=== PATIENT | female | born 1940 | race Caucasian/White ===

== ENCOUNTER → 2017-07-31 | Day surgery (SDC) | payer OTHER ==
[2017-07-30 11:38] VITALS: Ht 162.6 cm; Wt 91.4 kg
[~2017-07-31] VITALS: Ht 162.6 cm; Wt 91.4 kg
[~2017-07-31] MED LIST: AMLO-114 PO; APR25 PO; ATOR-24 PO; BENZ100C84 PO; CLOP1TAB15 PO; FURO-85 PO; LIDOCAINE HCL 2% 2 ML VIAL (20MG/ML) ONE; LOSA1TAB38 PO; MOME200A INH; MONT1TAB3 PO; OMEG10007 PO; PRMVC PV; PROPOFOL IV EMULSION 10 MG/ML 20 ML VIAL IV ONE; PRT/20 PO; PRVIN525X INH; SERT25TA PO; SODIUM CHLORIDE 0.9% 500ML 500 ML IV ONE; SPRIN/30 INH; TRAZ50TA35 PO; VNTHFA/IN INH; ZNTT/150 PO
--- NOTE | 2017-07-31 10:08 | Endo History and Physical ---
History & Physical Date of Service: Jul 31, 2017. Chief Complaint: Referring Physician: History of Present Illness Patient with ANGIE and Hx of colonic AVMs. Planned for EGD and colonoscopy. Feels fine and denies abdominal pain. Past Surgical History Hx Cardiac Surgery: Yes (RT CAROTID ENDARTERECTOMY) Hx Internal Defibrillator: No Hx Pacemaker: No Hx Abdominal Surgery: Yes (NEYMAR BSO, EXPLOR LAPS) Hx of Implantable Prosthesis: No Hx Post-Op Nausea and Vomiting: No Hx Cancer Surgery: No Hx Thoracic Surgery: No Hx Orthopedic: Yes (RT ALEXA) Hx Urinary Tract Surgery: No Family History None Social History Smoking Status: Former Smoker Hx Substance Use: No Hx Alcohol Use: No Allergies Coded Allergies: Adhesives (Verified Allergy, Mild, HIVES, 07/31/17) HIVES AND WELTS NO KNOWN DRUG ALLERGIES (Verified Allergy, Unknown, ., 07/31/17) Current Medications Reported Home Medications Medications Dose Route/Sig Max Daily Dose Days Date Category [place]-3 (Fish Oil) 1 Ea Cap 1 Cap PO BID 07/30/17 Reported Lasix (Furosemide) 20 Mg Tab 20 Mg PO DAILY PRN 07/30/17 Reported Zantac (Ranitidine HCl) 150 Mg Tab 150 Mg PO HS 07/30/17 Reported Albuterol Sulfate (Albuterol Sulf) 2.5 Mg/0.5 Ml Nebu 1 Dose INH Q4H PRN 07/30/17 Reported Ventolin Hfa (Albuterol) 200 Puffs/48555 Mcg Aers 2-4 Puffs INH Q6H PRN 07/30/17 Reported Norvasc (Amlodipine Besylate) 10 Mg Tab 10 Mg PO DAILY 07/30/17 Reported Apresoline (Hydralazine Hcl) 25 Mg Tab 25 Mg PO BID 07/30/17 Reported Spiriva Handihaler (Tiotropium [place]) 30 Puff/540 Mcg Aerp 1 Cap INH DAILY 07/30/17 Reported Plavix (Clopidogrel Bisulfate) 75 Mg Tab 75 Mg PO DAILY 07/30/17 Reported Singulair (Montelukast Sodium) 10 Mg Tab 10 Mg PO DAILY 07/30/17 Reported Dulera 200/5 Mcg (Mometasone Furoate-Formoterol) 1 Aer Aer 2 Puffs INH BID 30 07/30/17 Reported Lipitor (Atorvastatin Calcium) 40 Mg Tab 40 Mg PO DAILY 07/30/17 Reported Tessalon Perles (Benzonatate) 100 Mg Cap 100 Mg PO TID PRN 07/30/17 Reported Protonix (Pantoprazole Sodium) 20 Mg Tab 20 Mg PO DAILY 07/30/17 Reported Trazodone (Trazodone HCl) 50 Mg Tab 50 Mg PO HS 07/30/17 Reported Zoloft (Sertraline HCl) 25 Mg Tab 25 Mg PO DAILY 07/30/17 Reported Premarin (Estrogens, Conjugated) 14 Appln/30 Gm Cr 1 Dose PV DIRECTED 07/30/17 Reported Cozaar (Losartan Potassium) 100 Mg Tab 100 Mg PO DAILY 07/30/17 Reported Vital Signs Weight (Kilograms): 91.36 Height (Feet): 5 Height (Inches): 4 Physical Exam General Appearance: no apparent distress Respiratory/Chest: Auscultation: breath sounds normal Cardiovascular: Heart Auscultation: RRR Abdomen: Inspection & Palpation: soft, non-distended Assessment and Plan EGD and colonoscopy. Patient was explained in details the risk and benefit and agrees.
--- NOTE | 2017-07-31 11:20 | GI REPORT ---
Procedure Date: 07/31/2017 10:20 AM Procedure: Upper GI endoscopy Indications: Iron deficiency anemia Medicines: Monitored Anesthesia Care Complications: No immediate complications. Estimated Blood Loss: Estimated blood loss: none. Procedure: Pre-Anesthesia Assessment: - Prior to the procedure, a History and Physical was performed, and patient medications and allergies were reviewed. The patient is competent. The risks and benefits of the procedure and the sedation options and risks were discussed with the patient. All questions were answered and informed consent was obtained. Patient identification and proposed procedure were verified by the physician and the nurse in the procedure room. Mental Status Examination: alert and oriented. Airway Examination: normal oropharyngeal airway and neck mobility. Respiratory Examination: clear to auscultation. CV Examination: normal. ASA Grade Assessment: III - A patient with severe systemic disease. After reviewing the risks and benefits, the patient was deemed in satisfactory condition to undergo the procedure. The anesthesia plan was to use monitored anesthesia care (MAC). Immediately prior to administration of medications, the patient was re-assessed for adequacy to receive sedatives. The heart rate, respiratory rate, oxygen saturations, blood pressure, adequacy of pulmonary ventilation, and response to care were monitored throughout the procedure. The physical status of the patient was re-assessed after the procedure. After obtaining informed consent, the endoscope was passed under direct vision. Throughout the procedure, the patient's blood pressure, pulse, and oxygen saturations were monitored continuously. The On-site loaner was introduced through the mouth, and advanced to the second part of duodenum. The upper GI endoscopy was accomplished without difficulty. The patient tolerated the procedure well. Findings: The examined esophagus was normal. A small hiatus hernia was present. The entire examined stomach was normal. Biopsies were taken with a cold forceps for histology. Biopsies were taken with a cold forceps for Helicobacter pylori testing. Verification of patient identification for the specimen was done by the physician and nurse using the patient's name and date. The duodenal bulb and 2nd part of the duodenum were normal. Biopsies were taken with a cold forceps for histology. Impression: - Normal esophagus. - Small hiatus hernia. - Normal stomach. Biopsied. - Normal duodenal bulb and 2nd part of the duodenum. Biopsied. Recommendation: - Discharge patient to home. - Await pathology results. Trinidad Ruiz MD 07/31/2017 11:19:44 AM This report has been signed electronically. Note Initiated On: 07/31/2017 10:20 AM I attest to the content of the Intraoperative Record and orders documented therein, exceptions below
--- NOTE | 2017-07-31 11:26 | GI REPORT ---
Procedure Date: 07/31/2017 10:41 AM Procedure: Colonoscopy Indications: Iron deficiency anemia Medicines: Monitored Anesthesia Care Complications: No immediate complications. Estimated Blood Loss: Estimated blood loss: none. Procedure: Pre-Anesthesia Assessment: - Prior to the procedure, a History and Physical was performed, and patient medications and allergies were reviewed. The patient is competent. The risks and benefits of the procedure and the sedation options and risks were discussed with the patient. All questions were answered and informed consent was obtained. Patient identification and proposed procedure were verified by the physician and the nurse in the procedure room. Mental Status Examination: alert and oriented. Airway Examination: normal oropharyngeal airway and neck mobility. Respiratory Examination: clear to auscultation. CV Examination: normal. ASA Grade Assessment: III - A patient with severe systemic disease. After reviewing the risks and benefits, the patient was deemed in satisfactory condition to undergo the procedure. The anesthesia plan was to use monitored anesthesia care (MAC). Immediately prior to administration of medications, the patient was re-assessed for adequacy to receive sedatives. The heart rate, respiratory rate, oxygen saturations, blood pressure, adequacy of pulmonary ventilation, and response to care were monitored throughout the procedure. The physical status of the patient was re-assessed after the procedure. After I obtained informed consent, the scope was passed under direct vision. Throughout the procedure, the patient's blood pressure, pulse, and oxygen saturations were monitored continuously. The scope was introduced through the anus and advanced to the terminal ileum. The colonoscopy was performed without difficulty. The patient tolerated the procedure well. The quality of the bowel preparation was good. The ileocecal valve, appendiceal orifice, and rectum were photographed. Findings: The perianal and digital rectal examinations were normal. The terminal ileum appeared normal. Two small angioectasias without bleeding were found in the ascending colon. Vaporization for bleeding prevention using argon plasma at 2 liters/minute and 20 alcaraz was successful. To prevent bleeding post-intervention, one hemostatic clip was successfully placed. There was no bleeding at the end of the procedure. A few small-mouthed diverticula were found in the sigmoid colon. The retroflexed view of the distal rectum and anal verge was normal and showed no anal or rectal abnormalities. Impression: - The examined portion of the ileum was normal. - Two small non-bleeding colonic angioectasias. Treated with argon plasma coagulation (APC). Clip was placed. - Diverticulosis in the sigmoid colon. - The distal rectum and anal verge are normal on retroflexion view. - No specimens collected. Recommendation: - Discharge patient to home. - No significant pathology to explain her anemia, consider investigation for other etiologies if needed. - Repeat colonoscopy is not recommended for screening purposes based on her age. - Return to referring physician. Trinidad Ruiz MD 07/31/2017 11:26:41 AM This report has been signed electronically. Note Initiated On: 07/31/2017 10:41 AM I attest to the content of the Intraoperative Record and orders documented therein, exceptions below
--- NOTE | 2017-07-31 11:37 | Discharge Instructions ---
Endoscopy Patient Instructions Date / Procedure(s) Performed Jul 31, 2017. Colonoscopy, EGD Allergy Information Coded Allergies: Adhesives (Verified Allergy, Mild, HIVES, 07/31/17) HIVES AND WELTS NO KNOWN DRUG ALLERGIES (Verified Allergy, Unknown, ., 07/31/17) Discharge Date / Findings Jul 31, 2017. Small Hiatal hernia Normal Stomach and Duodenum. Two small AVMs in ascending colon, treated with APC and Clip Diverticulosis Medication Instructions Stopped Medication(s): PLAVIX 07/30/17 0900 Reported Home Medications Medications Dose Route/Sig Max Daily Dose Days Date Category [place]-3 (Fish Oil) 1 Ea Cap 1 Cap PO BID 07/30/17 Reported Lasix (Furosemide) 20 Mg Tab 20 Mg PO DAILY PRN 07/30/17 Reported Zantac (Ranitidine HCl) 150 Mg Tab 150 Mg PO HS 07/30/17 Reported Albuterol Sulfate (Albuterol Sulf) 2.5 Mg/0.5 Ml Nebu 1 Dose INH Q4H PRN 07/30/17 Reported Ventolin Hfa (Albuterol) 200 Puffs/73048 Mcg Aers 2-4 Puffs INH Q6H PRN 07/30/17 Reported Norvasc (Amlodipine Besylate) 10 Mg Tab 10 Mg PO DAILY 07/30/17 Reported Apresoline (Hydralazine Hcl) 25 Mg Tab 25 Mg PO BID 07/30/17 Reported Spiriva Handihaler (Tiotropium [place]) 30 Puff/540 Mcg Aerp 1 Cap INH DAILY 07/30/17 Reported Plavix (Clopidogrel Bisulfate) 75 Mg Tab 75 Mg PO DAILY 07/30/17 Reported Singulair (Montelukast Sodium) 10 Mg Tab 10 Mg PO DAILY 07/30/17 Reported Dulera 200/5 Mcg (Mometasone Furoate-Formoterol) 1 Aer Aer 2 Puffs INH BID 30 07/30/17 Reported Lipitor (Atorvastatin Calcium) 40 Mg Tab 40 Mg PO DAILY 07/30/17 Reported Tessalon Perles (Benzonatate) 100 Mg Cap 100 Mg PO TID PRN 07/30/17 Reported Protonix (Pantoprazole Sodium) 20 Mg Tab 20 Mg PO DAILY 07/30/17 Reported Trazodone (Trazodone HCl) 50 Mg Tab 50 Mg PO HS 07/30/17 Reported Zoloft (Sertraline HCl) 25 Mg Tab 25 Mg PO DAILY 07/30/17 Reported Premarin (Estrogens, Conjugated) 14 Appln/30 Gm Cr 1 Dose PV DIRECTED 07/30/17 Reported Cozaar (Losartan Potassium) 100 Mg Tab 100 Mg PO DAILY 07/30/17 Reported Provider Instructions Activity Restrictions - No exercising or heavy lifting for 24 hours. - Do not drink alcohol the day of the procedure. - Do not drive a car or operate machinery until the day after the procedure. - Do not make any important decisions or sign important papers in 24 hours after the procedure. Following Day: - Return to full activity which may include returning to work/school. Diet Start your diet with liquids and light foods (jello, soup, juice, toast). Then eat your usual diet if not nauseated. Treatment For Common After Affects For mild abdominal pain, bloating, or excessive gas: - Rest - Eat lightly - Lie on right side Follow-Up Information Await pathology result. Work up for non GI causes of anemia. Follow-up with DR. JOSE MOTT as scheduled Anesthesia Information What You Should Know You have had a procedure that required some medicine to reduce anxiety and discomfort. This treatment is called moderate sedation. After receiving the treatment, you may be sleepy, but you will be able to breathe on your own. The effects of the treatment may last for several hours. Follow these instructions along with Activity/Diet recommendations noted above: * Do NOT do anything where dizziness or clumsiness would be dangerous. * Rest quietly at home today, then you can be up and about tomorrow. * Have a responsible person stay with you the rest of today. * You may have had an I.V. today. If so, you may take the dressing off later today. Recommendations Call your doctor if: * Trouble breathing * Continuous vomiting for more than 24 hours * Temperature above 101 degrees * Severe abdominal pain or bloating * Pain not relieved by pain medicine ordered * There is increased drainage or redness from any incision * A large amount of rectal bleeding greater than 2-3 tablespoons. (If you had a polyp/s removed or have hemorrhoids, a small amount of blood - from the rectum is to be expected.) * You have any unanswered questions or concerns. IN THE EVENT OF A SERIOUS EMERGENCY, GO TO THE NEAREST EMERGENCY ROOM Your discharge instructions were prepared by provider Trinidad Ruiz. Patient Instructions Signature Page Keisha Vijay Patient (or Guardian) Signature/Date: I have read and understand the instructions given to me by my caregivers. Caregiver/RN/Doctor Signature/Date: The above-named patient and/or guardian has received patient instructions on this date. + Original Patient Signature Page (only) stays with chart. Please make copy for patient.
[2017-07-31 11:47] VITALS: BP 154/74; PULSE 64; O2SAT 93
--- NOTE | 2017-07-31 11:56 | Anesthesiology Progress Note ---
Anesthesia Post Op Note Date & Time Jul 31, 2017 at 11:56 Vital Signs Pain Intensity: 0 Vital Signs Past 12 Hours Date Time Temp Pulse Resp B/P (MAP) Pulse Ox O2 Delivery O2 Flow Rate FiO2 07/31/17 11:47 64 20 154/74 (100) 93 Room Air 07/31/17 11:32 63 20 131/61 (84) 94 Room Air 07/31/17 11:17 70 20 134/47 (76) 97 Diffusion Mask 07/31/17 10:18 36.6 66 20 160/68 (98) 94 Room Air Notes Mental Status: alert / awake / arousable, participated in evaluation Pt Amnestic to Procedure: Yes Nausea / Vomiting: adequately controlled Pain: adequately controlled Airway Patency, RR, SpO2: stable & adequate BP & HR: stable & adequate Hydration State: stable & adequate Anesthetic Complications: no major complications apparent
== END | disposition home or self-care (01) ==
LOC: C.GI 09:51
PROVIDERS: ATTEND Student in an Organized Health Care Education/Training Program
DX: D50.9 Iron deficiency anemia, unspecified (principal); K57.30 Diverticulosis of large intestine without perforation or abscess without bleeding; Z90.710 Acquired absence of both cervix and uterus; Z96.641 Presence of right artificial hip joint; Z87.891 Personal history of nicotine dependence; Z79.02 Long term (current) use of antithrombotics/antiplatelets; J44.9 Chronic obstructive pulmonary disease, unspecified; G47.33 Obstructive sleep apnea (adult) (pediatric); I10 Essential (primary) hypertension; E78.5 Hyperlipidemia, unspecified; I73.9 Peripheral vascular disease, unspecified; I38 Endocarditis, valve unspecified; K21.9 Gastro-esophageal reflux disease without esophagitis; Z86.73 Personal history of transient ischemic attack (TIA), and cerebral infarction without residual deficits; F41.9 Anxiety disorder, unspecified; E66.9 Obesity, unspecified; Z85.72 Personal history of non-Hodgkin lymphomas

== ENCOUNTER 2019-09-18 14:12 | Inpatient (IN) ==
--- OUTSIDE RECORDS SUMMARY | 2019-09-18 14:14 | External Medical Summary | Continuity of Care Document ---
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) Chronic obstructive pulmonary disease (C OPD) suggested by initial evaluation (496) (J44.9) Hypoxemia (799.02) (R09.02) ISELA on CPAP (327.23) (G47.33) Dyspnea on exertion (786.09) (R06.09) Carotid stenosis (433.10) (I65.29) Transient ischemic attack (TIA) (435.9) (G45.9) Hypertension (401.9) (I10) Dyslipidemia (272.4) (E78.5) Chronic diastolic heart failure (428.32) (I50.32) Aortic valve insufficiency (424.1) (I35.1) Former smoker (V15.82) (Z87.891) Depression (311) (F32.9) Edema (782.3) (R60.9) Itchy skin (698.9) (L29.9) Cough (786.2) (R05) 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 (30 day sup ply) Quantity: 60 Refills: 1 Ventolin HFA 108 (90 Base) MCG/ACT Inhal ation Aerosol Solution; INHALE 2 PUFFS EVERY 4 HOURS NEEDED 18 GM Inhaler Quantity: 1 Refills: 0 Albuterol Sulfate (2.5 MG/3ML) 0.083% In halation Nebulization Solution; USE 1 UNIT DOSE IN NEBULIZER EVERY 4 TO 6 HOURS NEEDED. Refills: 3 Tessalon Perles 100 MG Oral Capsule; TAKE 1 CAPSULE 3 TIMES DAILY NEEDED. Quantity: 30 Refills: 1 Norvasc 10 MG Oral Tablet; TAKE 1 TABLET DAILY. Refills: 0 traZODone HCl - 50 MG Oral Tablet; TAKE 1 TABLET AT BEDTIME. Quantity: 30 Refills: 6 Protonix 20 MG Oral Tablet Delayed Release; TAKE 1 TABLET TW ICE DAILY. Refills: 0 Lipitor 40 MG Oral Tablet; TAKE 1 TABLET DAILY. Quantity: 90 Refills: 3 hydrALAZINE HCl - 25 MG Oral Tablet; TAKE 1 TABLET TWICE ZAIN LY. Quantity: 60 Refills: 0 Zoloft 25 MG Oral Tablet; TAKE 1 TABLET DAILY DIRECTED. Refills: 0 Spiriva HandiHaler 18 MCG Inhalation Cap sudarshan; INHALE CONTENTS OF 1 CAPSULE ONCE DAILY. 30 Capsule Box Quantity: 1 Refills: 0 Singulair 10 MG Oral Tablet; TAKE 1 TABLET DAILY. Quantity: 30 Refills: 5 Plavix 75 MG Oral Tablet; TAKE 1 TABLET DAILY. Quantity: 30 Refills: 5 Losartan Potassium 100 MG Oral Tablet; TAKE ONE (1) TABLET B Y MOUTH ONCE DAILY 30 Tablet Bottle Refills: 0 Furosemide 20 MG Oral Tablet; 1 TAB COLE Y NEEDED FOR FLUID RETENTION OR WEIGHT GAIN. Refills: 0 Dulera 200-5 MCG/ACT Inhalation Aerosol; INHALE 2 PUFFS, BY MOUTH, TWICE DAILY. RINSE MOUTH AFTER USE. 8.8 GM Inhaler Refills: 0 Temovate OINT; APPLY TO AFFECTED AREA 3 TIMES PER WEEK 15 GM Tube Refills: 0 Premarin 0.625 MG/GM Vaginal Cream; 1 gr am intravaginally two times per week at bedtime 30 GM Tube Refills: 3 Oxygen; 2 LPM AT BEDTIME THROUGH THE CPAP MACHINE. Refills: 0 Fish Oil 1000 MG Oral Capsule Delayed Release; TAKE 1 CAP TW ICE DAILY. Refills: 0 Alendronate Sodium 70 MG Oral Tablet; TAKE 1 TABLET ONCE WEE KLY. Quantity: 12 Refills: 3 raNITIdine HCl - 150 MG Oral Tablet; TAKE 1 TABLET AT BEDTIM E. Quantity: 90 Refills: 3 Procedures History of hip replacement Status: Compl eted History of hemorrhoidectomy Status: Comp leted History of hysterectomy Status: Complete d Immunizations Immunizations not documented Family History Mother Family history of cerebrovascular accident (CVA) (V17.1) (Z8 2.3) Status: Active Social History - Smoking Status Former smoker Plan of Treatment Planned Observations Planned Goals not documented Results No Known Results Results not documented Encounters Appointment; Elise/Stress Echo/Stress 18-Nov-2018 11:45 Encounter Diagnosis: Problem not documented Appointment; Pasquale Marcial M.D. 13-Jun-2018 11:45 Encounter Diagnosis: Problem not documented Appointment; Elise/Stress Echo/Stress 01-Apr-2018 15:15 Encounter Diagnosis: Problem not documented Appointment; Echo/Stress Echo/Stress 25-Mar-2018 11:00 Encounter Diagnosis: Problem not documented Appointment; Joe Melton M.D. 20-Mar-2018 15:45 Encounter Diagnosis: Problem not documented Appointment; Pasquale Marcial M.D. 05-Mar-2018 15:15 Encounter Diagnosis: Problem not documented Appointment; Pasquale Marcial M.D. 24-Jan-2018 13:45 Encounter Diagnosis: Problem not documented Appointment; Pasquale Marcial M.D. 28-Dec-2017 11:15 Encounter Diagnosis: Problem not documented Appointment; Joe Melton M.D. 05-Nov-2017 13:45 Encounter Diagnosis: Problem not documented Appointment; Brenda Murrell PA-C 26-Dec-2018 13:30 Encounter Diagnosis: Problem not documented
--- OUTSIDE RECORDS SUMMARY | 2019-09-18 14:15 | External Medical Summary | Continuity of Care Document ---
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) Emphysema/COPD (492.8) (J43.9) Obstructive sleep apnea (327.23) (G47.33) Lymphadenopathy, mesenteric (785.6) (R59.0) Lichen sclerosus (701.0) (L90.0) GERD (gastroesophageal reflux disease) (530.81) (K21.9) Osteoporosis (733.00) (M81.0) Former tobacco use (V15.82) (Z87.891) Pleural effusion (511.9) (J90) Pneumonitis (486) (J18.9) Centrilobular emphysema (492.8) (J43.2) 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.]
[2019-09-18] MEDS ORDERED: CEFEPIME 2,000 MG/20 ML VIAL IV STA (14:36)
[2019-09-18] MEDS ORDERED: VANCOMYCIN HCL 2,250 MG in SODIUM CHLORIDE 0.9% 500 ML IV ONE (14:36)
[2019-09-18] MEDS ORDERED: VANCOMYCIN CONSULT ACTIVE PRN ×2 (14:36→17:23)
[2019-09-18] MEDS ORDERED: ONDANSETRON INJ 2 MG/ML 2 ML VIAL IV STA (14:54)
[2019-09-18] MEDS ORDERED: MoRPHine SULFATE 4 MG/ML 1 ML CARP\\VIAL IV STA (14:54)
[2019-09-18 15:31] LABS: Basophils # (auto) 0.01 K/uL (0-0.2); Basophils % (auto) 0.1 %; Eosinophils # (auto) 0.03 K/uL (0-0.5); Eosinophils % (auto) 0.2 %; Hematocrit (blood only) 34.5 % (37-47); Hemoglobin 11.2 g/dL (12.0-16.0); Immature Granulocytes # (auto) 0.04 K/uL (0.00-0.02); Immature Granulocytes % (auto) 0.3 %; Lymphocytes # (auto) 0.94 K/uL (1.2-3.4); Lymphocytes % (auto) 7.5 %; Mean Corpuscular Hemoglobin 27.9 pg (25-34); Mean Corpuscular Hgb Conc 32.5 g/dL (32-36); Mean Corpuscular Volume 85.8 fL (80-100); Mean Platelet Volume 9.1 fL (7.4-10.4); Monocytes # (auto) 1.12 K/uL (0.11-0.59); Monocytes % (auto) 8.9 %; Neutrophils # (auto) 10.38 K/uL (1.4-6.5); Platelet Count 266 K/uL (130-400); RDW Standard Deviation 44.4 fL (36.4-46.3); Red Blood Count 4.02 M/uL (4.2-5.4); White Blood Count 12.52 K/uL (4.8-10.8)
[2019-09-18 15:41] LABS: INR 1.1 (0.9-1.1); Partial Thromboplastin Time 26.3 Seconds (21.0-31.0); Prothrombin Time 11.5 Seconds (9.0-12.0)
[2019-09-18 15:46] LABS: Albumin Level 3.3 gm/dl (3.4-5.0); BUN Creatinine Ratio 13.5 (10-20); C Reactive Protein 11.1 mg/dl (0-0.29); Calcium 8.7 mg/dl (8.5-10.1); Creatinine Clr Calc Pharmacy 56.7 ml/min; Est GFR (African American) 73.9; Est GFR (Non-African American) 63.8; Potassium 3.3 mmol/L (3.5-5.1)
[2019-09-18 15:49] LABS: Albumin Globulin Ratio 0.8 (0.9-2); Bilirubin,Total 0.5 mg/dl (0.2-1); Total Protein 7.3 gm/dl (6.4-8.2)
[2019-09-18] MEDS ORDERED: POTASSIUM CHLORIDE 20 MEQ TABCR PO STA (15:53)
--- NOTE | 2019-09-18 15:54 | History & Physical Report ---
Date of Service September 18, 2019 Assessment & Plan (1) Cellulitis of finger of left hand: (2) Tenosynovitis of finger: pt is 78 y/o F with PMH COPD, nocturnal hypoxemia, ISELA, chronic diastolic CHF, HTN, dyslipidemia, prediabetes, non-Hodgkin's lymphoma, depression, TIA, GERD presented to ER with complaint of left fourth finger erythema. Reports on 09/14/2019 she cut her left fourth finger with a clean knife. Had some continued bleeding from lac and followed up with PCP on 09/15/2019 and reports laceration was closed with Dermabond. Patient was started on Bactrim. C/O increased erythema and edema and pain and limited ROM of finger. Has had 3 doses of IM Rocephin out patient. In ER afebrile, BP 153/66, 174/74, P: 88-90, R: 20, Pulse ox 91-96% on RA. WBC: 12, CRP: 11, ESR: 74 Xray L 4th finger: Soft tissue swelling with no acute bony abnormality identified. -In ER given cefepime, vancomycin -Blood cultures pending -Outpatient wound culture preliminary results +few staph aureus -Cefepime, Vancomycin -Hydrocodone prn pain -Elevate hand -Ortho consult -Monitor CBC, BMP (3) Hypertension: BP Elevated in ER. Suspect secondary to pain -Continue amlodipine, hydralazine, losartan (4) COPD (chronic obstructive pulmonary disease): No acute exacerbation -Continue home inhaler, Singulair, albuterol prn (5) ISELA (obstructive sleep apnea): (6) Nocturnal hypoxemia: -CPAP HS with 2.5L oxygen (7) TIA (transient ischemic attack): -Continue Plavix, atorvastatin (8) Hyperlipidemia: -Continue atorvastatin (9) Prediabetes: A1c: 6.0 on 09/09/19 Diet controlled -Diabetic diet -Monitor BSGs closely with underlying infection, Novolog sliding scale prn DVT Prophylaxis -SCDs and ambulate Full Code as per discussion with pt Follows with Dr Sd Alfred for routine care Pt was seen and care coordinated with Dr Hines. See addendum History of Present Illness Chief Complaint: Left finger erythema Primary Care Provider: Naida Alfred MD Pt is 78 y/o F with PMH COPD, nocturnal hypoxemia, ISELA, chronic diastolic CHF, HTN, dyslipidemia, prediabetes, non-Hodgkin's lymphoma, depression, TIA, GERD presented to ER with complaint of left fourth finger erythema. Patient states on 09/14/2019 she cut her left fourth finger with a clean knife. Patient states still had some bleeding from laceration and followed up with PCP on 09/15/2019 and reports laceration was closed with Dermabond. Patient was started on Bactrim. She reports started with erythema and edema and pain which has worsened. She also c/o limited ability to move finger. Has had 3 doses of IM Rocephin. Followed with outpatient ortho Dr Lenz today and was referred to ER for flexor tenosynovitis/cellulitis of left 4th finger. Patient states his been taking hydrocodone for pain which is helped a little with pain. Has had decreased appetite and feels secondary to pain medication. Denies fever/chills, diaphoresis, N/V/D/C, FOOTE, dizziness, syncope, vision changes, neck pain, CP, SOB, orthopnea, palpitations, cough, sore throat, choking, otalgia, rhinorrhea, abdominal pain, paresthesias, weakness, extremity weakness, other edema, other rashes, urinary symptoms. Allergies Allergy/AdvReac Type Severity Reaction Status Date / Time adhesive Allergy Mild HIVES Verified 09/18/19 15:10 No Known Drug Allergies Allergy Unknown . Verified 09/18/19 15:10 Home Medications Home Medications Medication Instructions Recorded Confirmed Type Lactobacillus rhamnosus GG 1 cap PO TIDM 09/18/19 09/18/19 History [Culturelle] albuterol sulfate 2 puff INHALATION Q4 PRN 09/18/19 09/18/19 History albuterol sulfate 2.5 mg INHALATION Q4 PRN 09/18/19 09/18/19 History amlodipine [Norvasc] 10 mg PO DAILY 09/18/19 09/18/19 History atorvastatin [Lipitor] 40 mg PO DAILY 09/18/19 09/18/19 History benzonatate [Tessalon Perles] 100 mg PO TID PRN 09/18/19 09/18/19 History clopidogrel [Plavix] 75 mg PO DAILY 09/18/19 09/18/19 History famotidine [Pepcid] 20 mg PO BID PRN 09/18/19 09/18/19 History ijmkurvmtmt-owfsecyga-ybdopviv 1 ea INHALATION DAILY 09/18/19 09/18/19 History [Trelegy Ellipta] furosemide [Lasix] 20 mg PO DAILY 09/18/19 09/18/19 History hydralazine 25 mg PO BID 09/18/19 09/18/19 History hydrocodone-acetaminophen [[place]] 1 tab PO Q6 PRN 09/18/19 09/18/19 History losartan [Cozaar] 100 mg PO DAILY 09/18/19 09/18/19 History melatonin 10 mg PO HS 09/18/19 09/18/19 History montelukast [Singulair] 10 mg PO HS 09/18/19 09/18/19 History multivitamin 1 tab PO DAILY 09/18/19 09/18/19 History omega 2-aug-nac-fish oil [Fish Oil] 1 cap PO BID 09/18/19 09/18/19 History sulfamethoxazole-trimethoprim 1 tab PO BID 09/18/19 09/18/19 History [Bactrim DS] Past Med/Surg History Medical History Chronic diastolic heart failure COPD (chronic obstructive pulmonary disease) Depression GERD (gastroesophageal reflux disease) Hyperlipidemia Hypertension Lymphoma Nocturnal hypoxemia Non-Hodgkin lymphoma ISELA (obstructive sleep apnea) Prediabetes TIA (transient ischemic attack) Surgical History H/O carotid endarterectomy History of hysterectomy History of left hip replacement Family History Other Stroke Social History Preferred Language: Georgian Communication Ability: Effective Beliefs That Will Affect Care: None Current Living Situation: Alone Current Living Situation Comment: [facility]ART[facility] Other Information That Helps Us Care for You: No Feels Safe at Home: Yes Safety Concerns: Feels Safe At This Time Smoking Status: Former smoker Hx Alcohol Use: No Hx Substance Use: No Review of Systems Review of Systems: All systems reviewed & are unremarkable except as noted in HPI & below Physical Exam Physical Exam: General: no distress, WDWN Head: normocephalic, atraumatic Eyes: PERRL, EOM's intact, conjunctiva non-injected, anicteric ENT: normal inspection external ears, nose, mucous membranes moist Neck: supple, trachea midline Lungs: clear, no respiratory distress, no wheezing/rhonchi/rales CV: RRR, systolic murmur, no pretibial edema Abd: normal BS, soft, non-tender Ext:no calf tenderness; Left hand/fingers: +erythema and edema to entire left ring finger extending proximally to mid hand with moderate tenderness to palpation entire finger greatest over DIP joint proximally to MCP joint, +closed laceration to volar aspect left 4th finger over DIP with no drainage, unable to flex or extend ring finger, unable to flex/extend 5th finger, able to flex and extend index, middle finger. Neuro: A&O x 3, no focal deficits noted, normal affect Skin: warm, dry; left finger/hand as above Results & Data Vital Signs (Past 12 Hours) Vital Signs Temp Pulse Resp BP Pulse Ox 09/18/19 15:23 90 21 174/74 H 91 09/18/19 14:21 36.7 C 88 20 153/66 H 96 Laboratory Results Short CBC 09/18/19 Range/Units 14:53 WBC 12.52 H (4.8-10.8) K/uL Hgb 11.2 L (12.0-16.0) g/dL Hct 34.5 L (37-47) % Plt Count 266 (130-400) K/uL BMP 09/18/19 14:53 Sodium 135 L Potassium 3.3 L Chloride 102 Carbon Dioxide 29 BUN 12 Creatinine 0.86 Glucose 119 H Calcium 8.7 Liver Function 09/18/19 Range/Units 14:53 Total Bilirubin 0.5 (0.2-1) mg/dl AST 12 L (15-37) U/L ALT 19 (12-78) U/L Alkaline Phosphatase 80 (45-117) U/L Albumin 3.3 L (3.4-5.0) gm/dl Diagnostic Findings XRAY LEFT FINGER: IMPRESSION: Soft tissue swelling with no acute bony abnormality identified. Code Status & VTE Plan VTE Prophylaxis Plan VTE Prophylaxis will be ordered: Yes Supervising Physician Co-Signing Physician Notes Pt was seen and examined. Agreed with Rocío ORNELAS exam, assessment and plan. 78 y/o F with PMH COPD, nocturnal hypoxemia, ISELA, chronic diastolic CHF, HTN, dyslipidemia, prediabetes, non-Hodgkin's lymphoma, depression, TIA, GERD presented to ER with complaint of left fourth finger erythema. Patient states on 09/14/2019 she cut her left fourth finger with a knife. She said that she saw her PCP and was given bactrim. She Ssaid that she started to develop erythema and edema in the the hand area. She said that she received IM [id number] outpatient. She saw orthopedic today and was referred to the ER for flexor tenosynovitis and cellulitis in the left hand. She said that she is having pain in the left hand that worsening when she tries to move her fourth finger. Denies any chest pain, palpitation, dizziness and SOB. Left finger xray showed loft tissue swelling with no acute bony abnormality identified. Received IV cefepime and vanco in the ER, will continue current abx. Blood cx collected in the ER pending. Continue pain control. Will consult ortho. Continue monitor closely. MD Flora
--- NOTE | 2019-09-18 16:15 | XRay Report ---
RIGHT FOURTH FINGER 3 VIEWS CLINICAL HISTORY: Laceration. Infection. FINDINGS: 3 views of the right fourth finger are obtained. No prior studies are available for compari son at the time of dictation. The skeletal structures are osteopenic. No fracture is seen. Mild osteo arthritic change is seen in the interphalangeal joints. The fourth metacarpophalangeal joint is prese rved. Soft tissue edema is noted in the fourth digit. No subcutaneous gas or radiodense foreign body is identified. IMPRESSION: Soft tissue swelling with no acute bony abnormality identified. Electronically signed by: Scooter Kothari M.D. 09/18/2019 4:14 PM
[2019-09-18] MEDS ORDERED: ACETAMINOPHEN 325 MG TAB PO PRN (17:00)
[2019-09-18] MEDS ORDERED: FAMOTIDINE 20 MG TAB PO PRN (17:00)
[2019-09-18] MEDS ORDERED: GLUCOSE 10 TABS/TUBE PO PRN (17:00)
[2019-09-18] MEDS ORDERED: ALBUTEROL 0.083% NEBU SOLN 3 ML VIAL INH PRN (17:00)
[2019-09-18] MEDS ORDERED: GLUCAGON FOR INJ 1 MG VIAL SQ PRN (17:00)
[2019-09-18] MEDS ORDERED: MoRPHine SULFATE 2 MG/ML CARP IV PRN (17:00)
[2019-09-18] MEDS ORDERED: POLYETHYLENE (MIRALAX) 17 GM PACK PO PRN (17:00)
[2019-09-18] MEDS ORDERED: DEXTROSE 50% 50 ML SYRINGE IV PRN (17:00)
[2019-09-18] MEDS ORDERED: GLUCOSE 40% GEL 15 GM TUBE PO PRN (17:00)
[2019-09-18] MEDS ORDERED: CARBOHYDRATES FOR HYPOGLYCEMIA PO PRN (17:00)
[2019-09-18] MEDS ORDERED: ONDANSETRON INJ 2 MG/ML 2 ML VIAL IV PRN (17:00)
--- NOTE | 2019-09-18 17:42 | Emergency Department Note ---
Entered by Janusz Lopes acting as a scribe for History of Present Illness General Chief complaint: Finger Pain Stated complaint: L FINGER CUT INFECTED Time Seen by Provider: 09/18/19 14:26 Source: patient Limitations: no limitations History of Present Illness Onset (ago): day(s) 4 Location: left (finger) Pain Consistency: + other (worsening) Maximum Pain Intensity: 8 Quality: + constant Exacerbated By: + other (arm below the heart, touching her hand) Associated symptoms: no fever/chills (fever) and no nausea/vomiting (vomiting) Treatments prior to arrival: other (Rocephin and Bactrim) The patient is a 78 year old female who presents to the Emergency Room with complaints of constant and worsening finger pain on her left hand starting 4 days ago. The patient states her friend was cutting steak with a knife. The patient states the knife was cleaned and then the patient was drying the knife when she cut her finger. The patient states she takes Plavix. She states her cut kept bleeding and so she went to her PCP who then closed it with Dermabond. This was definitely over 12 hours since the initial incident per the daughter. She notes her hand swelled up the day after the cut. The patient states the PCP cleaned the cut before gluing it. The patient states she received a shot of Rocephin every day for the past 3 days. She was also placed on Bactrim. The patient states she has been taking hydrocodone for pain. She states the pain is worse when touching her hand. She notes the pain is worse when her arm is below her heart. The patient denies having fevers, vomiting, and feeling sick. The patient notes she was started on Bactrim 2 days ago. Home Medications Home Medications Medication Instructions Recorded Confirmed Type Lactobacillus rhamnosus GG 1 cap PO TIDM 09/18/19 09/18/19 History [Culturelle] albuterol sulfate 2 puff INHALATION Q4 PRN 09/18/19 09/18/19 History albuterol sulfate 2.5 mg INHALATION Q4 PRN 09/18/19 09/18/19 History amlodipine [Norvasc] 10 mg PO DAILY 09/18/19 09/18/19 History atorvastatin [Lipitor] 40 mg PO DAILY 09/18/19 09/18/19 History benzonatate [Tessalon Perles] 100 mg PO TID PRN 09/18/19 09/18/19 History clopidogrel [Plavix] 75 mg PO DAILY 09/18/19 09/18/19 History famotidine [Pepcid] 20 mg PO BID PRN 09/18/19 09/18/19 History tilpkiqvmns-idybvlfjz-llodczko 1 ea INHALATION DAILY 09/18/19 09/18/19 History [Trelegy Ellipta] furosemide [Lasix] 20 mg PO DAILY 09/18/19 09/18/19 History hydralazine 25 mg PO BID 09/18/19 09/18/19 History hydrocodone-acetaminophen [[place]] 1 tab PO Q6 PRN 09/18/19 09/18/19 History losartan [Cozaar] 100 mg PO DAILY 09/18/19 09/18/19 History melatonin 10 mg PO HS 09/18/19 09/18/19 History montelukast [Singulair] 10 mg PO HS 09/18/19 09/18/19 History multivitamin 1 tab PO DAILY 09/18/19 09/18/19 History omega 3-qvc-bjf-fish oil [Fish Oil] 1 cap PO BID 09/18/19 09/18/19 History sulfamethoxazole-trimethoprim 1 tab PO BID 09/18/19 09/18/19 History [Bactrim DS] Allergies Allergy/AdvReac Type Severity Reaction Status Date / Time adhesive Allergy Mild HIVES Verified 09/18/19 15:10 No Known Drug Allergies Allergy Unknown . Verified 09/18/19 15:10 Past Med/Surg History Medical History Chronic diastolic heart failure COPD (chronic obstructive pulmonary disease) Depression GERD (gastroesophageal reflux disease) Hyperlipidemia Hypertension Lymphoma Nocturnal hypoxemia Non-Hodgkin lymphoma ISELA (obstructive sleep apnea) Prediabetes TIA (transient ischemic attack) Surgical History H/O carotid endarterectomy History of hysterectomy History of left hip replacement Family History Other Stroke Social History Preferred Language: Burkinan Communication Ability: Effective Beliefs That Will Affect Care: None Current Living Situation: Alone Current Living Situation Comment: [facility] Other Information That Helps Us Care for You: No Feels Safe at Home: Yes Safety Concerns: Feels Safe At This Time Smoking Status: Former smoker Hx Alcohol Use: No Hx Substance Use: No Review of Systems See HPI for pertinent positives & negatives. and A total of 10 systems reviewed and were otherwise negative Physical Exam Vital Signs Vital Signs - 24 hr 09/18/19 14:21 09/18/19 15:23 Temperature 36.7 C Temperature Source Oral Pulse Rate 88 90 Pulse Rate from SpO2 Sensor 87 Respiratory Rate 20 21 Respiratory Effort / Characteristics Non-Labored Respiratory Depth Normal Respiratory Pattern Regular Blood Pressure 153/66 H 174/74 H Blood Pressure Mean 95 118 Blood Pressure Position Sitting Pulse Oximetry 96 91 Oxygen Delivery Method Room Air Room Air Sepsis Recent Fever Within 48 Hours No Sepsis Action Taken by Nursing No Action Required Constitutional: Vital signs reviewed. Eyes: Pupils are equal round reactive to light. Conjunctiva are noninjected. ENT: Pharynx is clear without erythema or exudate. Mucous membranes are moist. Neck supple without meningeal signs. Respiratory: Clear to auscultation bilaterally. Breath sounds are equal bilaterally. Left upper extremity: Dermabonded wound to the flexor surface of the 4th digit at the DID yellowish tissue underneath. There is edema and tenderness throughout the finger with significant pain with passive extension of the finger. Erythema extending into the left hand with tenderness there as well. Cardiovascular: Regular rate and rhythm. No rubs or gallops. GI: Soft, nondistended and nontender. Bowel sounds are present. Musculoskeletal: As above. Integumentary: No cyanosis. Neurological: The patient is awake and alert. No focal deficits. Psychiatric: Normal affect. Course Course 1427: The patient was evaluated in room A10, and a complete history and physical examination were performed. 1439: I spoke with Dr. Fletcher - orthopedics surgery. I told him I was concerned for flexor tenosynovitis, and he states that does not require surgery. He recommends treating the patient with IV antibiotics. 1453: I talked to the patient about Dr. Richards recommendations. I discussed the need for her to stay in the hospital. 1456: I spoke with Rocío Wong PA-C regarding the patient. Dr. Flora Wong Hospitalist, will further manage the care of the patient. 1505: I reevaluated the patient. I applied bacitracin ointment to see if it would dissolve the dermabond. Administered Medications Discontinued Medications Vancomycin HCl 2,250 mg/ (Sodium Chloride) 545 mls @ 200 mls/hr IV NOW ONE Stop: 09/18/19 17:19 Last Infusion: 09/18/19 16:33 Dose: 0 mls/hr Documented by: [id number] Admin: 09/18/19 15:28 Dose: 200 mls/hr Documented by: [id number] Cefepime HCl (Maxipime) 2,000 mg in 20 mls @ 5 mls/min IV NOW STA Stop: 09/18/19 14:39 Last Admin: 09/18/19 15:22 Dose: 5 mls/min Documented by: [id number] Morphine Sulfate (Morphine Sulfate) 4 mg IV NOW STA Stop: 09/18/19 14:55 Last Admin: 09/18/19 15:23 Dose: 4 mg Documented by: [id number] Ondansetron HCl (Zofran) 4 mg IV NOW STA Stop: 09/18/19 14:55 Last Admin: 09/18/19 15:22 Dose: 4 mg Documented by: [id number] Potassium Chloride (Klor-Con M20) 40 meq PO NOW STA Stop: 09/18/19 15:54 Last Admin: 09/18/19 16:33 Dose: 40 meq Documented by: [id number] Medical Decision Making Differential Diagnosis Differential diagnosis includes but is not limited to flexor tendosynovitis, wound infection, cellulitis, abscess, bacteremia, and MRSA. Medical Records Attestation: I reviewed the patient's medical records. I did perform a limited focused review of portions of the patient's old chart on the electronic medical record. The patient has had no recent pertinent visits to this hospital. Home Medications Current Medication List: was personally reviewed by me Laboratory Data Result diagrams: 09/18/19 14:53 09/18/19 14:53 Lab Results 09/18/19 09/18/19 09/18/19 Range/Units 14:53 14:53 14:53 WBC (4.8-10.8) K/uL RBC (4.2-5.4) M/uL Hgb (12.0-16.0) g/dL Hct (37-47) % MCV (80-100) fL MCH (25-34) pg MCHC (32-36) g/dL RDW Std Deviation (36.4-46.3) fL RDW Coeff of Ad (11.5-14.5) % Plt Count (130-400) K/uL MPV (7.4-10.4) fL Immature Gran % (Auto) % Neut % (Auto) % Lymph % (Auto) % [place] % (Auto) % Eos % (Auto) % Baso % (Auto) % Immature Gran # (Auto) (0.00-0.02) K/uL Neut # (Auto) (1.4-6.5) K/uL Lymph # (Auto) (1.2-3.4) K/uL [place] # (Auto) (0.11-0.59) K/uL Eos # (Auto) (0-0.5) K/uL Baso # (Auto) (0-0.2) K/uL ESR 74 H (0-21) mm/hr PT 11.5 (9.0-12.0) Seconds INR 1.1 (0.9-1.1) APTT 26.3 (21.0-31.0) Seconds PTT Ratio 1.0 Sodium 135 L (136-145) mmol/L Potassium 3.3 L (3.5-5.1) mmol/L Chloride 102 (98-107) mmol/L Carbon Dioxide 29 (21-32) mmol/L Anion Gap 5.0 (3-11) BUN 12 (7-18) mg/dl Creatinine 0.86 (0.6-1.2) mg/dl Est Cr Clr Drug Dosing 56.7 ml/min Est GFR ( Amer) 73.9 Est GFR (Non-Af Amer) 63.8 BUN/Creatinine Ratio 13.5 (10-20) Glucose 119 H (70-99) mg/dl Calcium 8.7 (8.5-10.1) mg/dl Total Bilirubin 0.5 (0.2-1) mg/dl AST 12 L (15-37) U/L ALT 19 (12-78) U/L Alkaline Phosphatase 80 (45-117) U/L C-Reactive Protein 11.10 H (0-0.29) mg/dl Total Protein 7.3 (6.4-8.2) gm/dl Albumin 3.3 L (3.4-5.0) gm/dl Globulin 4.0 (2.5-4.0) gm/dl Albumin/Globulin Ratio 0.8 L (0.9-2) 09/18/19 Range/Units 14:53 WBC 12.52 H (4.8-10.8) K/uL RBC 4.02 L (4.2-5.4) M/uL Hgb 11.2 L (12.0-16.0) g/dL Hct 34.5 L (37-47) % MCV 85.8 (80-100) fL MCH 27.9 (25-34) pg MCHC 32.5 (32-36) g/dL RDW Std Deviation 44.4 (36.4-46.3) fL RDW Coeff of Ad 14.0 (11.5-14.5) % Plt Count 266 (130-400) K/uL MPV 9.1 (7.4-10.4) fL Immature Gran % (Auto) 0.3 % Neut % (Auto) 83.0 % Lymph % (Auto) 7.5 % [place] % (Auto) 8.9 % Eos % (Auto) 0.2 % Baso % (Auto) 0.1 % Immature Gran # (Auto) 0.04 H (0.00-0.02) K/uL Neut # (Auto) 10.38 H (1.4-6.5) K/uL Lymph # (Auto) 0.94 L (1.2-3.4) K/uL [place] # (Auto) 1.12 H (0.11-0.59) K/uL Eos # (Auto) 0.03 (0-0.5) K/uL Baso # (Auto) 0.01 (0-0.2) K/uL ESR (0-21) mm/hr PT (9.0-12.0) Seconds INR (0.9-1.1) APTT (21.0-31.0) Seconds PTT Ratio Sodium (136-145) mmol/L Potassium (3.5-5.1) mmol/L Chloride (98-107) mmol/L Carbon Dioxide (21-32) mmol/L Anion Gap (3-11) BUN (7-18) mg/dl Creatinine (0.6-1.2) mg/dl Est Cr Clr Drug Dosing ml/min Est GFR ( Amer) Est GFR (Non-Af Amer) BUN/Creatinine Ratio (10-20) Glucose (70-99) mg/dl Calcium (8.5-10.1) mg/dl Total Bilirubin (0.2-1) mg/dl AST (15-37) U/L ALT (12-78) U/L Alkaline Phosphatase (45-117) U/L C-Reactive Protein (0-0.29) mg/dl Total Protein (6.4-8.2) gm/dl Albumin (3.4-5.0) gm/dl Globulin (2.5-4.0) gm/dl Albumin/Globulin Ratio (0.9-2) Blood Pressure Blood Pressure Findings: Elevated blood pressure Blood Pressure Disposition: further management by hospitalist SULEMA Narrative I did evaluate the patient as noted above. The patient is presenting with a wound infection. She had a laceration on Sunday and went to her doctor over 12 hours later who then closed it with Dermabond due to the bleeding. She developed an infection the next day and was placed on antibiotics but has had persistently worse symptoms and so presents to the ED today. She has a concerning examination with significant tenderness to the finger, diffuse swelling and pain with passive extension of the finger. The infection also extends into the hand where she is tender but not past the wrist. IV access was established. The patient was placed on a continuous golf course keeper. I did treat the patient with IV morphine and Zofran for her pain. I did order blood cultures and treated the patient with IV cefepime and vancomycin. I did discuss the case with Dr. Fletcher of orthopedics who did not feel the patient required surgical intervention and recommended admission for IV antibiotics. I did order and review the patient's blood work as noted in the electronic medical record. Her white blood cell count is elevated. She has anemia. I did discuss the case with the hospitalist and family caseworker. Impression & Plan Flexor tenosynovitis of finger, Wound infection, Failure of outpatient treatment, Anemia Discharge Plan Visit Data *Final* Discharge Date/Time: 09/18/19 16:23 Chief Complaint: Finger Pain Stated Complaint: L FINGER CUT INFECTED ED Provider: Joe Carmen Discharge Problem: Flexor tenosynovitis of finger, Wound infection, Failure of outpatient treatment, Anemia Patient Disposition: Admitted As Inpatient Discharge Instructions Interventions: ED Discharge Assessment Last Done: 09/18/19 16:23 Discharge Problem: Anemia Qualifiers: Anemia type: unspecified type Qualified Code(s): D64.9 - Anemia, unspecified The scribe's documentation has been prepared under my direction and personally reviewed by me in its entirety. I confirm that the note above accurately reflects all work, treatment, procedures, and medical decision making performed by me.
--- NOTE | 2019-09-18 17:53 | Pharmacy Report ---
Pharmacy Abx Initial Consult - Date of Service September 18, 2019 - Pharmacy Dosing Scope Date of Consult: 09/18/19 Consultation requested by: Rocío Bishop PA-C Pharmacy is consulted to initiate Vancomycin IV dosing therapy, order appropriate labs and adjust drug dose/frequency. - Subjective The patient is a 78 year old F admitted on 09/18/19 15:52 with cellulitis of left 4th finger. Failed outpatient PO Bactrim and IM Rocephin started on 09/15. PMH COPD, nocturnal hypoxemia, ISELA, chronic diastolic CHF, HTN, dyslipidemia, prediabetes, non-Hodgkin's lymphoma, depression, TIA. - Objective Height: 5 ft 5 in Weight: 86.7 kg Vital Signs (Past 12hrs): Vital Signs Temp Pulse Resp BP Pulse Ox 09/18/19 16:18 81 22 142/52 H 93 09/18/19 16:03 83 14 91/72 L 93 09/18/19 16:01 87 19 91/72 L 93 09/18/19 15:23 90 21 174/74 H 91 09/18/19 14:21 36.7 C 88 20 153/66 H 96 Lab Results (24hrs): Laboratory Tests (24 Hours) 09/18/19 09/18/19 09/18/19 14:53 14:53 14:53 WBC 12.52 H Neut # (Auto) 10.38 H ESR 74 H Creatinine 0.86 Est Cr Clr Drug Dosing 56.7 C-Reactive Protein 11.10 H Micro Results: 09/18/19 14:53 Aerobic Blood Culture - Pending Blood Anaerobic Blood Culture - Pending 09/18/19 14:53 Aerobic Blood Culture - Pending Blood Anaerobic Blood Culture - Pending - Risk Factors for Resistance * Antimicrobial use within the last 90 days - Bactrim & Rocephin IM x 3 days 09/15-09/18 - Assessment & Plan Assessment 78 year old F admitted with cellulitis of left 4th finger. Failed outpatient PO Bactrim and IM Rocephin started on 09/15. Elevated WBC, afebrile, blood cultures pending. Plan Vancomycin and Cefepime for treatment of cellulitis. Vancomycin IV * Estimated PK Parameters: Vd 0.7 L/kg, [place] 0.05 hr-1, t1/2 13.9hr * Loading dose: 2250 mg (25 mg/kg) * Maintenance dose: 1250 mg IV (14 mg/kg) every 12 hours * Goal trough level for cellulitis : ~15 mcg/mL * Trough level ordered for 09/20/19 Cefepime 2g IV q24h for CrCl < 60ml/min Pharmacy will continue to follow and will adjust dose/frequency as necessary. Thank you.
[2019-09-18] MEDS: INSULIN ASPART 100 UNITS/ML 3 ML PEN SC SCH ×2 (18:37→21:46)
[2019-09-18] MEDS: HYDROCODONE/ACETAMOPHEN 5/325MG TAB PO PRN (19:12)
[2019-09-18] MEDS: MONTELUKAST SODIUM 10 MG TABLET PO SCH (21:41)
[2019-09-18] MEDS: OMEGA-3 (PURIFIED FISH OIL) 1 GM CAP PO SCH (21:41)
[2019-09-19] MEDS: HYDROCODONE/ACETAMOPHEN 5/325MG TAB PO PRN ×3 (03:43→23:47)
[2019-09-19] MEDS: VANCOMYCIN HCL 1,250 MG in SODIUM CHLORIDE 0.9% 250 ML IV SCH ×2 (03:45→16:05)
[2019-09-19] MEDS: ATORVASTATIN 40 MG TAB PO SCH (07:29)
[2019-09-19] MEDS: MULTIVITAMIN TAB PO SCH (07:29)
[2019-09-19] MEDS: OMEGA-3 (PURIFIED FISH OIL) 1 GM CAP PO SCH ×2 (07:29→21:08)
[2019-09-19] MEDS: CLOPIDOGREL BISULFATE 75 MG TAB PO SCH (07:29)
[2019-09-19] MEDS: AMLODIPINE BESYLATE 5 MG TAB PO SCH (07:29)
[2019-09-19] MEDS: LOSARTAN POTASSIUM 50 MG TAB PO SCH (07:29)
[2019-09-19 08:11] LABS: Basophils # (auto) 0.03 K/uL (0-0.2); Basophils % (auto) 0.4 %; Eosinophils # (auto) 0.27 K/uL (0-0.5); Eosinophils % (auto) 3.4 %; Hematocrit (blood only) 33.9 % (37-47); Hemoglobin 10.9 g/dL (12.0-16.0); Immature Granulocytes # (auto) 0.05 K/uL (0.00-0.02); Immature Granulocytes % (auto) 0.6 %; Lymphocytes # (auto) 1.28 K/uL (1.2-3.4); Lymphocytes % (auto) 16.1 %; Mean Corpuscular Hemoglobin 27.6 pg (25-34); Mean Corpuscular Hgb Conc 32.2 g/dL (32-36); Mean Corpuscular Volume 85.8 fL (80-100); Mean Platelet Volume 9.2 fL (7.4-10.4); Monocytes # (auto) 1.06 K/uL (0.11-0.59); Monocytes % (auto) 13.3 %; Neutrophils # (auto) 5.26 K/uL (1.4-6.5); Neutrophils % (auto) 66.2 %; Platelet Count 269 K/uL (130-400); RDW Coefficient of Variation 14.2 % (11.5-14.5); RDW Standard Deviation 44.9 fL (36.4-46.3); Red Blood Count 3.95 M/uL (4.2-5.4); White Blood Count 7.95 K/uL (4.8-10.8)
[2019-09-19] MEDS: INSULIN ASPART 100 UNITS/ML 3 ML PEN SC SCH ×4 (08:15→22:00)
[2019-09-19 08:30] LABS: BUN Creatinine Ratio 16.1 (10-20); Calcium 9.2 mg/dl (8.5-10.1); Creatinine Clr Calc Pharmacy 63.4 ml/min; Est GFR (African American) 84.5; Est GFR (Non-African American) 72.9; Potassium 4.1 mmol/L (3.5-5.1)
[2019-09-19] MEDS ORDERED: FUROSEMIDE 20 MG TAB PO SCH (09:00)
[2019-09-19] MEDS: CEFEPIME 2,000 MG in SYRINGE 7.5 ML IV SCH (15:58)
--- NOTE | 2019-09-19 18:05 | Orthopedic Consultation ---
Date of Consultation September 19, 2019 Assessment & Plan (1) Tenosynovitis of finger: This should resolve with IV antibiotic therapy. She is already doing better on the IV antibiotics. Surgery is usually extensive and often unnecessary for this type of diagnosis. It might take a couple days of IV antibiotics but the infection should resolve. I will continue to watch her closely. She says she is hoping to get out of here by Sunday so she can go on a trip to [place]. I told her we will have to see how she does over the weekend. I will continue to follow her closely. Present on Admission?: Yes History of Present Illness Reason for Consultation: Flexor tenosynovitis of the left ring finger Attending Physician: Magdiel Marquez MD History of Present Illness Keisha is a pleasant 78-year-old female who cut her left ring finger with a clean knife about 5 days ago. Unfortunately she is gone on to have a rather significant infection of her finger. It was very swollen and red on Sunday. She was following up with her primary care physician who treated her with oral Bactrim and wound care. Unfortunate the infection got worse. She came to the emergency room and was diagnosed with a flexor tenosynovitis of the left ring finger. She was mated to the hospital and started on IV antibiotics. Orthopedics was consulted to evaluate and treat. Allergies Allergy/AdvReac Type Severity Reaction Status Date / Time adhesive Allergy Mild HIVES Verified 09/18/19 15:10 No Known Drug Allergies Allergy Unknown . Verified 09/18/19 15:10 Home Medications Home Medications Medication Instructions Recorded Confirmed Type Lactobacillus rhamnosus GG 1 cap PO TIDM 09/18/19 09/18/19 History [Culturelle] albuterol sulfate 2 puff INHALATION Q4 PRN 09/18/19 09/18/19 History albuterol sulfate 2.5 mg INHALATION Q4 PRN 09/18/19 09/18/19 History amlodipine [Norvasc] 10 mg PO DAILY 09/18/19 09/18/19 History atorvastatin [Lipitor] 40 mg PO DAILY 09/18/19 09/18/19 History benzonatate [Tessalon Perles] 100 mg PO TID PRN 09/18/19 09/18/19 History clopidogrel [Plavix] 75 mg PO DAILY 09/18/19 09/18/19 History famotidine [Pepcid] 20 mg PO BID PRN 09/18/19 09/18/19 History azwradpyejb-plputucbo-uwzcwobm 1 ea INHALATION DAILY 09/18/19 09/18/19 History [Trelegy Ellipta] furosemide [Lasix] 20 mg PO DAILY 09/18/19 09/18/19 History hydralazine 25 mg PO BID 09/18/19 09/18/19 History hydrocodone-acetaminophen [Mcfarlan] 1 tab PO Q6 PRN 09/18/19 09/18/19 History losartan [Cozaar] 100 mg PO DAILY 09/18/19 09/18/19 History melatonin 10 mg PO HS 09/18/19 09/18/19 History montelukast [Singulair] 10 mg PO HS 09/18/19 09/18/19 History multivitamin 1 tab PO DAILY 09/18/19 09/18/19 History omega 5-rvn-zzk-fish oil [Fish Oil] 1 cap PO BID 09/18/19 09/18/19 History sulfamethoxazole-trimethoprim 1 tab PO BID 09/18/19 09/18/19 History [Bactrim DS] Patient History Medical History Chronic diastolic heart failure COPD (chronic obstructive pulmonary disease) Depression GERD (gastroesophageal reflux disease) Hyperlipidemia Hypertension Lymphoma Nocturnal hypoxemia Non-Hodgkin lymphoma ISELA (obstructive sleep apnea) Prediabetes TIA (transient ischemic attack) Surgical History H/O carotid endarterectomy History of hysterectomy History of left hip replacement Family History Other Stroke Social History Preferred Language: Czech Communication Ability: Effective Beliefs That Will Affect Care: None marital status: / Current Living Situation: Alone Current Living Situation Comment: SKILLED NURSING APARTMENT Other Information That Helps Us Care for You: No Feels Safe at Home: Yes Safety Concerns: Feels Safe At This Time Smoking Status: Former smoker Hx Alcohol Use: No Hx Substance Use: No Review of Systems Constitutional: no fever, no chills, no fatigue, no anorexia, no weight loss and no weight gain Ear, Nose, Mouth, Throat: no ear pain, no epistaxis, no sinus pain/pressure, no mouth lesions, no bleeding gums and no sore throat Respiratory: no cough, no dyspnea, no hemoptysis and no wheezing Cardiovascular: no chest pain, no palpitations, no syncope and no edema Gastrointestinal: no heartburn, no nausea, no vomiting and no change in bowel habits Genitourinary: no dysuria, no urinary frequency, no urinary incontinence, no hematuria and no flank pain Musculoskeletal: as per Subjective / HPI Integumentary: no rash and no lesions Neurologic: no paralysis, no tingling, no numbness, no tremor(s), no seizure- like activity, no dizziness, no headache(s), no confusion and no memory loss Psychiatric: no depression, no abnormal sleep pattern, no anxiety and no confusion Endocrine: no polydipsia, no polyphagia, no polyuria, no cold intolerance and no heat intolerance Hematologic / Lymphatic: no easy bleeding, no easy bruising, no coagulopathy and no lymphadenopathy Allergy / Immunological: no urticaria, no dyspnea and no rash Physical Exam Musculoskeletal: On physical examination of the left ring finger, there is a transverse laceration in the crease of the DIP joint. There is redness and swelling both proximally and distally. She does have tenderness to palpation along the flexor tendon sheath. It extends up towards her mid palm. She does not have any pain proximal to her mid palm. She has very limited range of motion of her finger at this point no pain distally. Results & Data Vital Signs (Past 12 Hours) Vital Signs Temp Pulse Resp BP Pulse Ox 09/19/19 15:00 36.9 C 75 16 128/49 L 93 09/19/19 07:11 36.8 C 82 16 156/65 H 91 PG Care Time/CCT Total # of Minutes Spent Total Time Spent with Patient: Total time spent is greater than 50% in coordina tion of care (as documented) at patient's floor/unit and/or counseling patient:
--- NOTE | 2019-09-19 18:30 | Hospitalist Progress Note ---
Date of Service September 19, 2019 Assessment & Plan (1) Cellulitis of finger of left hand: (2) Tenosynovitis of finger: Per admitting service notes: Pt is 78 y/o F with PMH COPD, nocturnal hypoxemia, ISELA, chronic diastolic CHF, HTN, dyslipidemia, prediabetes, non-Hodgkin's lymphoma, depression, TIA, GERD presented to ER with complaint of left fourth finger erythema. Reports on 09/14/2019 she cut her left fourth finger with a clean knife. Had some continued bleeding from lac and followed up with PCP on 09/15/2019 and reports laceration was closed with Dermabond. Patient was started on Bactrim. C/O increased erythema and edema and pain and limited ROM of finger. Has had 3 doses of IM Rocephin out patient. In ER afebrile, BP 153/66, 174/74, P: 88-90, R: 20, Pulse ox 91-96% on RA. WBC: 12, CRP: 11, ESR: 74 Xray L 4th finger: Soft tissue swelling with no acute bony abnormality martín ntified. Wound cultures drawn as an outpatient 09/17/2019: Positive for staph aureus, sensitive to oxacillin but resistant to penicillin G Blood cultures drawn 09/18/2019: Pending Left finger seems to be improving clinically Continue vancomycin plus cefepime for now, await final blood cultures, continue to monitor clinically Orthopedic surgeon consulted, no plans for surgical intervention at this time but will monitor, appreciate recommendations (3) Hypertension: Pressure improved -Continue amlodipine, hydralazine, losartan -Hold Lasix for now in light of vancomycin use (4) COPD (chronic obstructive pulmonary disease): No acute exacerbation -Continue home inhaler, Singulair, albuterol prn (5) ISELA (obstructive sleep apnea): (6) Nocturnal hypoxemia: -CPAP HS with 2.5L oxygen (7) TIA (transient ischemic attack): -Continue Plavix, atorvastatin (8) Hyperlipidemia: -Continue atorvastatin (9) Prediabetes: A1c: 6.0 on 09/09/19 Diet controlled -Diabetic diet -Monitor BSGs closely with underlying infection, Novolog sliding scale prn DVT Prophylaxis -SCDs and ambulate Full Code as per discussion with pt Follows with Dr Sd Alfred for routine care Subjective Follow-up for left finger tenosynovitis, cellulitis Seen resting in bed, comfortable, not in distress Reports left fourth finger pain is about the same Does report erythema of the hand and finger improving Edema is about the same, noted serosanguineous drainage today Able to move hand slightly better compared to yesterday Denies fevers or chills No other symptoms Review of Systems Review of Systems: All systems reviewed & are unremarkable except as noted in HPI & below Physical Exam Physical Exam: General- oriented x 3, not in distress, speaks in sentences wit h no effort or accessory muscle use Head- atraumatic Eyes- PERRL, EOMI, anicteric ENT- oropharynx clear Neck- supple, no JVD, no adenopathy, no thyromegaly; carotids +2/2, no bruits appreciated Lungs- clear to auscultation bilaterally, no rales/wheezes Heart- normal rate, regular rhythm; no murmur, no gallop, no rub appreciated Abdomen- normal bowel sounds, nondistended, soft, nontender, no masses or hepatosplenomegaly Extremities- Left hand-moderate edema of the left fourth finger and moderate erythema as well, wound is scabbing, no active drainage or bleeding noted Moderate edema on the palm of the left hand Limited range of motion due to pain No tenderness, no warmth no pretibial edema, no calf tenderness; peripheral pulses intact Neuro- alert, oriented x 3; CN 2-12 grossly intact; motor 5/5 bilaterally;sensation 100% on all extremities; no other gross focal neurologic deficits Skin- warm & dry Results & Data Vital Signs (Past 12 Hours) Vital Signs Temp Pulse Resp BP Pulse Ox 09/19/19 15:00 36.9 C 75 16 128/49 L 93 09/19/19 07:11 36.8 C 82 16 156/65 H 91 Laboratory Results Laboratory Results - last 24 hr 09/18/19 09/18/19 09/18/19 18:36 20:41 21:45 WBC RBC Hgb Hct MCV MCH MCHC RDW Std Deviation RDW Coeff of Ad Plt Count MPV Immature Gran % (Auto) Neut % (Auto) Lymph % (Auto) Barber % (Auto) Eos % (Auto) Baso % (Auto) Immature Gran # (Auto) Neut # (Auto) Lymph # (Auto) Barber # (Auto) Eos # (Auto) Baso # (Auto) Sodium Potassium Chloride Carbon Dioxide Anion Gap BUN Creatinine Est Cr Clr Drug Dosing Est GFR ( Amer) Est GFR (Non-Af Amer) BUN/Creatinine Ratio Glucose POC Glucose 131 H 102 H 105 H Calcium 09/19/19 09/19/19 09/19/19 07:23 07:26 07:59 WBC 7.95 RBC 3.95 L Hgb 10.9 L Hct 33.9 L MCV 85.8 MCH 27.6 MCHC 32.2 RDW Std Deviation 44.9 RDW Coeff of Ad 14.2 Plt Count 269 MPV 9.2 Immature Gran % (Auto) 0.6 Neut % (Auto) 66.2 Lymph % (Auto) 16.1 Barber % (Auto) 13.3 Eos % (Auto) 3.4 Baso % (Auto) 0.4 Immature Gran # (Auto) 0.05 H Neut # (Auto) 5.26 Lymph # (Auto) 1.28 Barber # (Auto) 1.06 H Eos # (Auto) 0.27 Baso # (Auto) 0.03 Sodium 136 Potassium 4.1 D Chloride 106 Carbon Dioxide 24 Anion Gap 6.0 BUN 12 Creatinine 0.77 Est Cr Clr Drug Dosing 63.4 Est GFR ( Amer) 84.5 Est GFR (Non-Af Amer) 72.9 BUN/Creatinine Ratio 16.1 Glucose 89 POC Glucose 94 Calcium 9.2 09/19/19 09/19/19 11:59 17:01 WBC RBC Hgb Hct MCV MCH MCHC RDW Std Deviation RDW Coeff of Ad Plt Count MPV Immature Gran % (Auto) Neut % (Auto) Lymph % (Auto) Barber % (Auto) Eos % (Auto) Baso % (Auto) Immature Gran # (Auto) Neut # (Auto) Lymph # (Auto) Barber # (Auto) Eos # (Auto) Baso # (Auto) Sodium Potassium Chloride Carbon Dioxide Anion Gap BUN Creatinine Est Cr Clr Drug Dosing Est GFR ( Amer) Est GFR (Non-Af Amer) BUN/Creatinine Ratio Glucose POC Glucose 110 H 103 H Calcium
[2019-09-19] MEDS: MONTELUKAST SODIUM 10 MG TABLET PO SCH (21:08)
[2019-09-19] MEDS: FLUTICASONE/SALMETEROL 100/50 (ADVAIR) 14 PUFF/1 INHALER INH SCH (21:09)
[2019-09-19] MEDS: LACTOBACILLUS ACIDOPHILUS (FLORANEX) TAB PO SCH (21:11)
[2019-09-20] MEDS ORDERED: VANCOMYCIN TROUGH ONE (03:30)
[2019-09-20] MEDS: VANCOMYCIN HCL 1,250 MG in SODIUM CHLORIDE 0.9% 250 ML IV SCH ×2 (03:40→15:37)
[2019-09-20 04:03] LABS: Est GFR (African American) 80.7; Est GFR (Non-African American) 69.6
[2019-09-20] MEDS: HYDROCODONE/ACETAMOPHEN 5/325MG TAB PO PRN ×2 (06:28→20:45)
[2019-09-20] MEDS: TIOTROPIUM BROMIDE 5 PUFF/90 MCG INH INH SCH (08:04)
[2019-09-20] MEDS: AMLODIPINE BESYLATE 5 MG TAB PO SCH (08:05)
[2019-09-20] MEDS: CLOPIDOGREL BISULFATE 75 MG TAB PO SCH (08:05)
[2019-09-20] MEDS: OMEGA-3 (PURIFIED FISH OIL) 1 GM CAP PO SCH ×2 (08:05→21:32)
[2019-09-20] MEDS: FLUTICASONE/SALMETEROL 100/50 (ADVAIR) 14 PUFF/1 INHALER INH SCH ×2 (08:05→21:33)
[2019-09-20] MEDS: LOSARTAN POTASSIUM 50 MG TAB PO SCH (08:06)
[2019-09-20] MEDS: LACTOBACILLUS ACIDOPHILUS (FLORANEX) TAB PO SCH ×4 (08:06→21:32)
[2019-09-20] MEDS: MULTIVITAMIN TAB PO SCH (08:06)
[2019-09-20] MEDS: ATORVASTATIN 40 MG TAB PO SCH (08:06)
--- NOTE | 2019-09-20 08:15 | Orthopedic Progress Note ---
Date of Service September 20, 2019 Assessment & Plan (1) Tenosynovitis of finger: Overall she continues to improve. I did order her warm Epsom salt soaks to the left ring finger. I think it will help pull out some of the excess edema. She needs to continue with the IV antibiotics. Her condition seems to be improving. I will continue to follow her closely. Present on Admission?: Yes Subjective Keisha was seen and examined at bedside again. Overall the finger is improving. She said her pain is getting better. The IV antibiotics seem to be working. She has no other complaints. Physical Exam Musculoskeletal: On physical examination of the left hand, there is still little bit of swelling of the left ring finger. The amount of redness and swelling has gone down over the past 24 hours. She has tenderness palpation along the flexor tendon sheath and extends towards the mid palm. She can flex and extend her finger minimally. Results & Data Vital Signs (Past 12 Hours) Vital Signs Temp Pulse Pulse Resp BP Pulse Ox 09/19/19 22:50 37.1 C 88 18 154/61 H 97 09/19/19 22:40 80 18 97 09/19/19 21:07 89 164/65 H PG Care Time/CCT Total # of Minutes Spent Total Time Spent with Patient: Total time spent is greater than 50% in coordination of care (as documented) at patient's floor/unit and/or counseling patient:
[2019-09-20] MEDS: MAGNESIUM SULFATE CRYSTALS 227 GM CRT EXT SCH ×3 (08:50→20:47)
[2019-09-20] MEDS: INSULIN ASPART 100 UNITS/ML 3 ML PEN SC SCH ×4 (08:50→22:05)
[2019-09-20] MEDS: CEFEPIME 2,000 MG in SYRINGE 7.5 ML IV SCH (15:31)
--- NOTE | 2019-09-20 16:26 | Pharmacy Report ---
Pharmacy Abx Dose Short Note - Date of Service September 20, 2019 - Assessment & Plan Laboratory Tests 09/20/19 03:24 Vancomycin Trough 12.4 Assessment 78 year old F receiving Vancomycin 1250mg IV q12h and Cefepime 2gm IV q12h for treatment of cellulitis of finger after cutting it with a knife. Blood cultures x2 show no growth. Day # 3 of antimicrobial therapy. Plan Vancomycin * Trough level of 12.4 mcg/mL is almost therapeutic. Expected to increase slightly with next maintenance dose. * Continue dose of 1250mg IV every 12 hours * Goal trough level for Cellulitis: ~15 mcg/mL * Trough level ordered for: 09/22/19 at 0330 Pharmacy will continue to follow and will adjust dose/frequency as necessary. Thank you.
--- NOTE | 2019-09-20 17:48 | Hospitalist Progress Note ---
Date of Service September 20, 2019 Assessment & Plan (1) Cellulitis of finger of left hand: (2) Tenosynovitis of finger: Per admitting service notes: Pt is 78 y/o F with PMH COPD, nocturnal hypoxemia, ISELA, chronic diastolic CHF, HTN, dyslipidemia, prediabetes, non-Hodgkin's lymphoma, depression, TIA, GERD presented to ER with complaint of left fourth finger erythema. Reports on 09/14/2019 she cut her left fourth finger with a clean knife. Had some continued bleeding from lac and followed up with PCP on 09/15/2019 and reports laceration was closed with Dermabond. Patient was started on Bactrim. C/O increased erythema and edema and pain and limited ROM of finger. Has had 3 doses of IM Rocephin out patient. In ER afebrile, BP 153/66, 174/74, P: 88-90, R: 20, Pulse ox 91-96% on RA. WBC: 12, CRP: 11, ESR: 74 Xray L 4th finger: Soft tissue swelling with no acute bony abnormality martín ntified. Wound cultures drawn as an outpatient 09/17/2019: Positive for staph aureus, sensitive to oxacillin but resistant to penicillin G Blood cultures drawn 09/18/2019: Negative Left finger continues to improve Continue vancomycin plus cefepime for now [place] will Orthopedic surgeon consulted, no plans for surgical intervention at this time but will monitor, appreciate recommendations (3) Hypertension: Pressure improved -Continue amlodipine, hydralazine, losartan -Hold Lasix for now in light of vancomycin use (4) COPD (chronic obstructive pulmonary disease): No acute exacerbation -Continue home inhaler, Singulair, albuterol prn (5) ISELA (obstructive sleep apnea): (6) Nocturnal hypoxemia: -CPAP HS with 2.5L oxygen (7) TIA (transient ischemic attack): -Continue Plavix, atorvastatin (8) Hyperlipidemia: -Continue atorvastatin (9) Prediabetes: A1c: 6.0 on 09/09/19 Diet controlled -Diabetic diet -Monitor BSGs closely with underlying infection, Novolog sliding scale prn DVT Prophylaxis -SCDs and ambulate Full Code as per discussion with pt Follows with Dr Sd Alfred for routine care Subjective ff up for finger cellulitis seen resting in bedside chair, comfortable states she feels better today finger pain is better, draining yellow fluid can move finger and hands better no other symptoms Review of Systems Review of Systems: All systems reviewed & are unremarkable except as noted in HPI & below Physical Exam Physical Exam: General- oriented x 3, not in distress, speaks in sentences with no effort or accessory muscle use Eyes- anicteric Neck- no JVD Lungs- clear breath sounds bilaterally Heart- normal rate, regular rhythm; no murmurs Abdomen- normal bowel sounds, nondistended, soft, nontender Extremities- right finger, 4th: small wound, draining yellow abscess, moderate edema and erythema, no tenderness no pretibial edema, no calf tenderness Neuro- alert, oriented x 3; no gross focal neurologic deficits Skin- warm & dry Results & Data Vital Signs (Past 12 Hours) Vital Signs Temp Pulse Pulse Resp BP Pulse Ox 09/20/19 15:15 36.8 C 85 16 130/66 90 09/20/19 08:00 36.9 C 82 20 142/66 H 92 Laboratory Results Laboratory Results - last 24 hr 09/19/19 09/20/19 09/20/19 20:39 03:24 03:24 Creatinine 0.80 Est Cr Clr Drug Dosing 61.0 Est GFR ( Amer) 80.7 Est GFR (Non-Af Amer) 69.6 POC Glucose 116 H Vancomycin Trough 12.4 09/20/19 09/20/19 09/20/19 08:29 12:14 17:16 Creatinine Est Cr Clr Drug Dosing Est GFR ( Amer) Est GFR (Non-Af Amer) POC Glucose 114 H 118 H 103 H Vancomycin Trough
[2019-09-20] MEDS: MONTELUKAST SODIUM 10 MG TABLET PO SCH (21:32)
[2019-09-21] MEDS ORDERED: CEFEPIME 2,000 MG in SYRINGE 7.5 ML IV SCH (04:00)
[2019-09-21] MEDS: VANCOMYCIN HCL 1,250 MG in SODIUM CHLORIDE 0.9% 250 ML IV SCH (04:07)
--- NOTE | 2019-09-21 06:51 | Orthopedic Progress Note ---
Date of Service September 21, 2019 Assessment & Plan (1) Tenosynovitis of finger: Overall she is doing much better. She still has very little range of motion of her finger but the pain is subsiding and the swelling is going down. She was hoping to be out of the hospital by tomorrow. She is traveling to [place] with some friends for [place]. She will be back in the area on Sunday. From an orthopedic standpoint, I think it safe for her to go on her trip with oral antibiotics at this point, however, I will leave that up to the medicine team. I can follow her up in the office in 2 to 3 weeks, or sooner if her symptoms are worsening. Office phone number is [phone]. Present on Admission?: Yes Kim Valdes was seen and examined at bedside this morning. Overall she is doing much better. Her finger still little bit stiff but is much less painful. The Epsom salts seem to have helped as well as the IV antibiotics. She is happy with her progress. Physical Exam Musculoskeletal: On physical examination of the left ring finger, there is much less swelling today. She still has very little range of motion. She has much less tenderness along the flexor sheath. The erythema is subsiding. Results & Data Vital Signs (Past 12 Hours) Vital Signs Temp Pulse Resp BP Pulse Ox 09/20/19 22:53 36.8 C 81 16 144/63 H 92 09/20/19 21:31 74 151/70 H PG Care Time/CCT Total # of Minutes Spent Total Time Spent with Patient: Total time spent is greater than 50% in coordination of care (as documented) at patient's floor/unit and/or counseling patient:
[2019-09-21 07:24] LABS: Creatinine Clr Calc Pharmacy 76.2 ml/min; Est GFR (African American) 97.7; Est GFR (Non-African American) 84.3
[2019-09-21] MEDS: LACTOBACILLUS ACIDOPHILUS (FLORANEX) TAB PO SCH ×2 (08:02→12:25)
[2019-09-21] MEDS: INSULIN ASPART 100 UNITS/ML 3 ML PEN SC SCH (08:21)
[2019-09-21] MEDS: FLUTICASONE/SALMETEROL 100/50 (ADVAIR) 14 PUFF/1 INHALER INH SCH (08:52)
[2019-09-21] MEDS: TIOTROPIUM BROMIDE 5 PUFF/90 MCG INH INH SCH (08:54)
[2019-09-21] MEDS: MULTIVITAMIN TAB PO SCH (09:09)
[2019-09-21] MEDS: LOSARTAN POTASSIUM 50 MG TAB PO SCH (09:09)
[2019-09-21] MEDS: OMEGA-3 (PURIFIED FISH OIL) 1 GM CAP PO SCH (09:09)
[2019-09-21] MEDS: ATORVASTATIN 40 MG TAB PO SCH (09:09)
[2019-09-21] MEDS: AMLODIPINE BESYLATE 5 MG TAB PO SCH (09:10)
[2019-09-21] MEDS: CLOPIDOGREL BISULFATE 75 MG TAB PO SCH (09:10)
[2019-09-21] MEDS: MAGNESIUM SULFATE CRYSTALS 227 GM CRT EXT SCH (09:11)
--- NOTE | 2019-09-21 11:41 | Hospitalist Progress Note ---
Date of Service September 21, 2019 Assessment & Plan (1) Cellulitis of finger of left hand: (2) Tenosynovitis of finger: Per admitting service notes: Pt is 78 y/o F with PMH COPD, nocturnal hypoxemia, ISELA, chronic diastolic CHF, HTN, dyslipidemia, prediabetes, non-Hodgkin's lymphoma, depression, TIA, GERD presented to ER with complaint of left fourth finger erythema. Reports on 09/14/2019 she cut her left fourth finger with a clean knife. Had some continued bleeding from lac and followed up with PCP on 09/15/2019 and reports laceration was closed with Dermabond. Patient was started on Bactrim. C/O increased erythema and edema and pain and limited ROM of finger. Has had 3 doses of IM Rocephin out patient. In ER afebrile, BP 153/66, 174/74, P: 88-90, R: 20, Pulse ox 91-96% on RA. WBC: 12, CRP: 11, ESR: 74 Xray L 4th finger: Soft tissue swelling with no acute bony abnormality martín ntified. Wound cultures drawn as an outpatient 09/17/2019: Positive for staph aureus, sensitive to oxacillin but resistant to penicillin G Blood cultures drawn 09/18/2019: Negative Left finger improving gradually received vancomycin plus cefepime x 4 days Epsom salt soaks recommended by Ortho Orthopedic surgeon consulted- Dr. Fletcher- no surgical intervention recommended, continue antibiotics d/c plan: Clindamycin 450mg TID x 10 days Probiotics daily ff up with PCP 1-2 days after return from [place] ff up with Dr. Fletcher- Ortho, in 2-3 weeks (3) Hypertension: Blood Pressure improved -Continue amlodipine, hydralazine, losartan -Hold Lasix for now, patient is euvolemic use PRN for Leg Edema (4) COPD (chronic obstructive pulmonary disease): No acute exacerbation -Continue home inhaler, Singulair, albuterol prn (5) ISELA (obstructive sleep apnea): (6) Nocturnal hypoxemia: -CPAP HS with 2.5L oxygen (7) TIA (transient ischemic attack): -Continue Plavix, atorvastatin (8) Hyperlipidemia: -Continue atorvastatin (9) Prediabetes: A1c: 6.0 on 09/09/19 Diet controlled -Diabetic diet -Monitor BSGs closely with underlying infection, Novolog sliding scale prn DVT Prophylaxis -SCDs and ambulate Full Code as per discussion with pt dc home ff up with PCP and Ortho as noted above plan of care discussed with patient and her family at bedside at length, in detail they are understanding, agreeable and comfortable with the plan of care Subjective ff up for finger cellulitis, tenosynovitis seen resting in chair, comfortable in good spirits states she feels better today left finger also feels much better denies fever/chills can move hand better no other symptoms states she is ready and would like to be discharged today Review of Systems Review of Systems: All systems reviewed & are unremarkable except as noted in HPI & below Physical Exam Physical Exam: General- oriented x 3, not in distress, speaks in sentences wit h no effort or accessory muscle use Eyes- anicteric Neck- no JVD Lungs- clear breath sounds bilaterally Heart- normal rate, regular rhythm; no murmurs Abdomen- normal bowel sounds, nondistended, soft, nontender Extremities- no pretibial edema, no calf tenderness left 4th finger: wound healing well, no drainage noted , less edema, erythema, tenderness, warmth Neuro- alert, oriented x 3; no gross focal neurologic deficits Skin- warm & dry Results & Data Vital Signs (Past 12 Hours) Vital Signs Temp Resp BP Pulse Ox 09/21/19 07:37 36.7 C 16 155/69 H 91
--- NOTE | 2019-09-21 12:04 | Discharge Summary ---
Date of Service September 21, 2019 Admission HPI Per Admitting Provider Pt is 78 y/o F with PMH COPD, nocturnal hypoxemia, ISELA, chronic diastolic CHF, HTN, dyslipidemia, prediabetes, non-Hodgkin's lymphoma, depression, TIA, GERD presented to ER with complaint of left fourth finger erythema. Patient states on 09/14/2019 she cut her left fourth finger with a clean knife. Patient states still had some bleeding from laceration and followed up with PCP on 09/15/2019 and reports laceration was closed with Dermabond. Patient was started on Bactrim. She reports started with erythema and edema and pain which has worsened. She also c/o limited ability to move finger. Has had 3 doses of IM Rocephin. Followed with outpatient ortho Dr Lenz today and was referred to ER for flexor tenosynovitis/cellulitis of left 4th finger. Patient states his been taking hydrocodone for pain which is helped a little with pain. Has had decreased appetite and feels secondary to pain medication. Denies fever/chills, diaphoresis, N/V/D/C, FOOTE, dizziness, syncope, vision changes, neck pain, CP, SO B, orthopnea, palpitations, cough, sore throat, choking, otalgia, rhinorrhea, abdominal pain, paresthesias, weakness, extremity weakness, other edema, other rashes, urinary symptoms. Admission Exam Per Admitting Provider Physical Exam: General: no distress, WDWN Head: normocephalic, atraumatic Eyes: PERRL, EOM's intact, conjunctiva non-injected, anicteric ENT: normal inspection external ears, nose, mucous membranes moist Neck: supple, trachea midline Lungs: clear, no respiratory distress, no wheezing/rhonchi/rales CV: RRR, systolic murmur, no pretibial edema Abd: normal BS, soft, non-tender Ext:no calf tenderness; Left hand/fingers: +erythema and edema to entire left ring finger extending proximally to mid hand with moderate tenderness to palpation entire finger greatest over DIP joint proximally to MCP joint, +closed laceration to volar aspect left 4th finger over DIP with no drainage, unable to flex or extend ring finger, unable to flex/extend 5th finger, able to flex and extend index, middle finger. Neuro: A&O x 3, no focal deficits noted, normal affect Skin: warm, dry; left finger/hand as above Principal Diagnosis TENOSYNOVITIS, CELLULITIS- 4TH FINGER, LEFT Discharge Exam General- oriented x 3, not in distress, speaks in sentences with no effort or accessory muscle use Eyes- anicteric Neck- no JVD Lungs- clear breath sounds bilaterally Heart- normal rate, regular rhythm; no murmurs Abdomen- normal bowel sounds, nondistended, soft, nontender Extremities- no pretibial edema, no calf tenderness left 4th finger: wound healing well, no drainage noted , less edema, erythema, tenderness, warmth Neuro- alert, oriented x 3; no gross focal neurologic deficits Skin- warm & dry Discharge Data Allergies Allergy/AdvReac Type Severity Reaction Status Date / Time adhesive Allergy Mild HIVES Verified 09/18/19 15:10 No Known Drug Allergies Allergy Unknown . Verified 09/18/19 15:10 Consultations 09/18/19 14:59 ED Decision to Admit Stat 09/18/19 17:00 Consult Case Management - Discharge Planning Routine Consult Orthopedic Surgery Routine Procedures Performed FINDINGS: 3 views of the right fourth finger are obtained. No prior studies are available for comparison at the time of dictation. The skeletal structures are osteopenic. No fracture is seen. Mild osteoarthritic change is seen in the interphalangeal joints. The fourth metacarpophalangeal joint is preserved. Soft tissue edema is noted in the fourth digit. No subcutaneous gas or radiodense foreign body is identified. IMPRESSION: Soft tissue swelling with no acute bony abnormality identified. Hospital Course (1) Cellulitis of finger of left hand: (2) Tenosynovitis of finger: Per admitting service notes: Pt is 78 y/o F with PMH COPD, nocturnal hypoxemia, ISELA, chronic diastolic CHF, HTN, dyslipidemia, prediabetes, non-Hodgkin's lymphoma, depression, TIA, GERD presented to ER with complaint of left fourth finger erythema. Reports on 09/14/2019 she cut her left fourth finger with a clean knife. Had some continued bleeding from lac and followed up with PCP on 09/15/2019 and reports laceration was closed with Dermabond. Patient was started on Bactrim. C/O increased erythema and edema and pain and limited ROM of finger. Has had 3 doses of IM Rocephin out patient. In ER afebrile, BP 153/66, 174/74, P: 88-90, R: 20, Pulse ox 91-96% on RA. WBC: 12, CRP: 11, ESR: 74 Xray L 4th finger: Soft tissue swelling with no acute bony abnormality identified. Wound cultures drawn as an outpatient 09/17/2019: Positive for staph aureus, sensitive to oxacillin but resistant to penicillin G Blood cultures drawn 09/18/2019: Negative Left finger improving gradually received vancomycin plus cefepime x 4 days Epsom salt soaks recommended by Ortho Orthopedic surgeon consulted- Dr. Fletcher- no surgical intervention recommended, continue antibiotics d/c plan: Clindamycin 450mg TID x 10 days Probiotics daily ff up with PCP 1-2 days after return from [place] 09/[address] Fletcher- Ortho, in 2-3 weeks (3) Hypertension: Blood Pressure improved -Continue amlodipine, hydralazine, losartan -Hold Lasix for now, patient is euvolemic use PRN for Leg Edema (4) COPD (chronic obstructive pulmonary disease): No acute exacerbation -Continue home inhaler, Singulair, albuterol prn (5) ISELA (obstructive sleep apnea): (6) Nocturnal hypoxemia: -CPAP HS with 2.5L oxygen (7) TIA (transient ischemic attack): -Continue Plavix, atorvastatin (8) Hyperlipidemia: -Continue atorvastatin (9) Prediabetes: A1c: 6.0 on 09/09/19 Diet controlled -Diabetic diet -Monitor BSGs closely with underlying infection, Novolog sliding scale prn dc home ff up with PCP and Ortho as noted above plan of care discussed with patient and her family at bedside at length, in detail they are understanding, agreeable and comfortable with the plan of care Total Time Total Time Spent Total Time Spent (In Minutes): 40 MINUTES Discharge Plan Discharge Items Patient Disposition: Home - Home Health Services Reason For Visit: LEFT 4TH FINGER INFECTION Discharge Diagnosis: LEFT 4TH FINGER INFECTION Activity: Resume your previous activity Bathing Comment: NO BATHING Driving/Machine Use: NO DRIVING UNTIL ALLOWED BY PRIMARY CARE PROVIDER Non-emergency contact: Primary Care Provider Call non-emergency contact if: you have any medication questions, your symptoms worsen, your pain is not controlled, your pain is worsening, your pain is unusual for you, your pain is concerning for you, you have a fever, your wound has increased redness, your wound has increased drainage and your wound pain has increased Follow-up/Referrals: James Fletcher DO [Physician] - aNida Goddard MD [Primary Care Provider] - None Diet: Heart Healthy Addtl Attending Provider Instructions: Please review new medication list and follow instructions carefully. Take probiotics daily. Ensure adequate daily fluid intake. Continue Epsom salt soaks. Clean with mild soap and water twice a day. Dress the wound daily. Keep the wound dry, no swimming or bathing. Call primary care physician or return to the ER immediately if with worsening of finger/hand redness, swelling, tenderness, pain, discharge, fevers or chills. Use Lasix as needed for leg swelling or shortness of breath. Call your doctor immediately if without improvement with Lasix. Follow-up with primary care physician in 1 week. The clinic will call you for the appointment. Please call Dr. Fletcher, orthopedic surgeon for an appointment in 2 to 3 weeks. Contact information as outlined above. Pending Studies at Discharge: No Stand-Alone Forms: My [facility] Pops, Smoking Cessation Medications and DC Order Prescriptions: New clindamycin HCl 150 mg capsule 450 mg PO TID 10 Days Qty: 90 RF: 0 Culturelle 10 billion cell Capsule 1 cap PO DAILY 30 Days Qty: 30 RF: 2 Continued atorvastatin [Lipitor] 40 mg tablet 40 mg PO DAILY RF: 0 hydrocodone-acetaminophen [[place]] 5-325 mg tablet 1 tab PO Q6 PRN (Reason: Pain) RF: 0 hydralazine 25 mg tablet 25 mg PO BID RF: 0 clopidogrel [Plavix] 75 mg tablet 75 mg PO DAILY RF: 0 famotidine [Pepcid] 20 mg tablet 20 mg PO BID PRN (Reason: Acid Reflux) RF: 0 montelukast [Singulair] 10 mg tablet 10 mg PO HS RF: 0 losartan [Cozaar] 100 mg tablet 100 mg PO DAILY RF: 0 Trelegy Ellipta 100-62.5-25 mcg blister with device 1 ea INHALATION DAILY RF: 0 multivitamin Tablet 1 tab PO DAILY RF: 0 albuterol sulfate 2.5 mg /3 mL (0.083 %) solution for nebulization 2.5 mg inhalation Q4 PRN (Reason: Shortness Of Breath Or Wheezing) RF: 0 amlodipine [Norvasc] 10 mg tablet 10 mg PO DAILY RF: 0 benzonatate [Tessalon Perles] 100 mg capsule 100 mg PO TID PRN (Reason: Cough) RF: 0 albuterol sulfate 90 mcg/actuation HFA aerosol inhaler 2 puff INHALATION Q4 PRN (Reason: Shortness Of Breath Or Wheezing) RF: 0 omega 7-fst-hyg-fish oil [Fish Oil] 1,000 mg (120 mg-180 mg) Capsule 1 cap PO BID RF: 0 melatonin 10 mg Tablet 10 mg PO HS RF: 0 Changed furosemide [Lasix] 20 mg tablet 20 mg PO DAILY PRN (Reason: LEG SWELLING, SHORTNESS OF BREATH) Qty: 0 RF: 0 Discontinued sulfamethoxazole-trimethoprim [Bactrim DS] 800-160 mg tablet 1 tab PO BID RF: 0 Discharge Orders: Discharge Order (Routine); Ordered 09/21/19 Ordered By: Magdiel Marquez Admission Data Admit Date/Time: 09/18/19 15:52 Attending Provider: Magdiel Marquez Admit Provider: Smiley Hines Primary Care Provider: Naida Goddard Other Providers: Smiley Hines ; James Fletcher
[2019-09-22] MEDS ORDERED: VANCOMYCIN TROUGH ONE (03:30)
== END 2019-09-21 13:10 | disposition home health service (06) | DRG 558 ==
LOC: ED 14:12 → SUATTDRO 15:52 → 3W 15:52

== ENCOUNTER 2021-03-09 16:44 | Observation (INO) ==
[2021-03-09] MEDS ORDERED: OPTIRAY 350 500ml IV ONE (18:43)
--- NOTE | 2021-03-09 18:46 | Emergency Department Note ---
History of Present Illness General Chief complaint: Neuro Symptoms/Deficit Stated complaint: IN BED LAST NIGHT COULDNT MOVE L SIDE Time Seen by Provider: 03/09/21 18:31 Source: patient History of Present Illness Provider complaint: Left-sided weakness Onset (ago): hour(s) Location: upper extremity, lower extremity and left Severity: severe Pain Consistency: + now resolved Quality: + other (Cannot move her left side at all) Relieved By: + none Associated symptoms: no chest pain, no cough, no fever/chills, no headaches, no nausea/vomiting and no shortness of breath This is an 80-year-old female sent in by her doctor's office for evaluation of strokelike symptoms. She states that at 1:30 AM today the patient developed flaccid paralysis of the left side of her body. She could not move her entire left side at all. She states this lasted an hour. It is now resolved. She does state that she is not able to lift her left shoulder up past her neck line. She does state that she has pain to the left shoulder. She denies any injury to that shoulder. She describes it as a jagged pain. It radiates into her left chest. She denies any fever, headache, cough or cold symptoms, shortness of breath, abdominal pain, vomiting, diarrhea or urinary symptoms. She does state that she takes Plavix. Home Medications Medication Instructions Recorded Confirmed Type Trelegy Ellipta 1 ea INHALATION DAILY 09/18/19 03/09/21 History albuterol sulfate 2 puff INHALATION Q4 PRN 09/18/19 03/09/21 History albuterol sulfate 2.5 mg INHALATION Q4 PRN 09/18/19 03/09/21 History amlodipine [Norvasc] 10 mg PO DAILY 09/18/19 03/09/21 History atorvastatin [Lipitor] 40 mg PO DAILY 09/18/19 03/09/21 History clopidogrel [Plavix] 75 mg PO DAILY 09/18/19 03/09/21 History hydralazine 25 mg PO BID 09/18/19 03/09/21 History losartan [Cozaar] 100 mg PO DAILY 09/18/19 03/09/21 History montelukast [Singulair] 10 mg PO HS 09/18/19 03/09/21 History multivitamin 1 tab PO DAILY 09/18/19 03/09/21 History omega 8-hgb-wvm-fish oil [Fish Oil] 1 cap PO BID 09/18/19 03/09/21 History furosemide 40 mg PO DAILY 03/09/21 03/09/21 History gabapentin 100 mg PO TID PRN 03/09/21 03/09/21 History Allergies Allergy/AdvReac Type Severity Reaction Status Date / Time adhesive Allergy Mild HIVES Verified 03/09/21 19:37 No Known Drug Allergies Allergy Unknown . Verified 03/09/21 19:37 Past Med/Surg History Medical History (Updated 03/09/21 @ 20:33 by Joe Carmen MD) Chronic diastolic heart failure COPD (chronic obstructive pulmonary disease) Depression GERD (gastroesophageal reflux disease) Hyperlipidemia Hypertension Lymphoma Nocturnal hypoxemia Non-Hodgkin lymphoma ISELA (obstructive sleep apnea) Prediabetes TIA (transient ischemic attack) Surgical History H/O carotid endarterectomy History of hysterectomy History of left hip replacement Family History Other Stroke Social History Smoking Status: Never smoker Hx Alcohol Use: No Hx Substance Use: No Preferred Language: Martiniquais Communication Ability: Effective Beliefs That Will Affect Care: None marital status: / Current Living Situation: Alone Current Living Situation Comment: [facility] Feels Safe at Home: Yes Assistive Devices: Denture - Upper, Denture - Lower and Glasses Review of Systems See HPI for pertinent positives & negatives. and A total of 10 systems reviewed and were otherwise negative Physical Exam Vital Signs Vital Signs - 24 hr 03/09/21 16:55 03/09/21 19:05 Temperature 36.8 C Temperature Source Oral Pulse Rate 90 Pulse Rate [Apical] 83 Pulse Rhythm Regular Pulse Strength Normal Respiratory Rate 18 21 Respiratory Effort / Characteristics Non-Labored Spontaneous Respiratory Depth Normal Normal Respiratory Pattern Regular Blood Pressure 141/64 H Blood Pressure [Right Arm] 190/68 H Blood Pressure Mean 89 Blood Pressure Mean [Right Arm] 108 Blood Pressure Position Sitting Pulse Oximetry 92 93 Oxygen Delivery Method Room Air Room Air Sepsis Recent Fever Within 48 Hours No Sepsis New/Unexplained Change in Mental Status No Sepsis Action Taken by Nursing No Action Required Constitutional: Vital signs reviewed. Eyes: Pupils are equal round reactive to light. Conjunctiva are noninjected. ENT: Pharynx is clear without erythema or exudate. Mucous membranes are moist. Neck supple without meningeal signs. Respiratory: Clear to auscultation bilaterally. Breath sounds are equal bilaterally. Cardiovascular: Regular rate and rhythm. No rubs or gallops. GI: Soft, nondistended and nontender. Bowel sounds are present. Musculoskeletal: No peripheral edema. No lower extremity tenderness. Ten derness to the left anterior shoulder. Normal distal pulses. Integumentary: No cyanosis. or jaundice. Neurologic: The patient is awake and alert. Cranial nerves II-XII are intact. Motor is 5 out of 5 all extremities, although the patient has difficulty lifting her left shoulder past the neckline secondary to pain. Sensation is intact to light touch all extremities. Normal speech. No pronator drift. No limb ataxia. Normal gait. Psychiatric: Normal affect. Not anxious appearing. Course Administered Medications Discontinued Medications Ioversol (Optiray 350 500ml) 120 ml IV ONCE ONE Stop: 03/09/21 18:44 Last Admin: 03/09/21 18:43 Dose: 120 ml Documented by: [id number] Medical Decision Making Differential Diagnosis TIA, CVA, intracranial hemorrhage, cervical radiculopathy, pathologic fracture, brachial plexopathy Medical Records Attestation: I reviewed the patient's medical records. I did perform a limited focused review of portions of the patient's old chart on the electronic medical record. The patient has had no recent pertinent visits to this hospital. Home Medications Current Medication List: was personally reviewed by me Laboratory Data Result diagrams: 03/09/21 18:45 03/09/21 18:45 Lab Results 03/09/21 03/09/21 03/09/21 Range/Units 18:45 18:45 18:45 WBC 6.73 (4.8-10.8) K/uL RBC 3.86 L (4.2-5.4) M/uL Hgb 11.1 L (12.0-16.0) g/dL Hct 34.0 L (37-47) % MCV 88.1 (80-100) fL MCH 28.8 (25-34) pg MCHC 32.6 (32-36) g/dL RDW Std Deviation 46.5 H (36.4-46.3) fL RDW Coeff of Ad 14.6 H (11.5-14.5) % Plt Count 346 (130-400) K/uL MPV 8.6 (7.4-10.4) fL Immature Gran % (Auto) 0.3 % Neut % (Auto) 57.6 % Lymph % (Auto) 25.1 % [place] % (Auto) 10.0 % Eos % (Auto) 6.4 % Baso % (Auto) 0.6 % Neut # (Auto) 3.88 (1.4-6.5) K/uL Lymph # (Auto) 1.69 (1.2-3.4) K/uL [place] # (Auto) 0.67 H (0.11-0.59) K/uL Eos # (Auto) 0.43 (0-0.5) K/uL Baso # (Auto) 0.04 (0-0.2) K/uL Immature Gran # (Auto) 0.02 (0.00-0.02) K/uL PT 10.3 (9.0-12.0) Seconds INR 1.0 (0.9-1.1) APTT 20.9 L (21.0-31.0) Seconds PTT Ratio 0.8 Sodium 143 (136-145) mmol/L Potassium 3.9 (3.5-5.1) mmol/L Chloride 110 H (98-107) mmol/L Carbon Dioxide 29 (21-32) mmol/L Anion Gap 4.0 (3-11) BUN 21 H (7-18) mg/dl Creatinine 0.90 (0.6-1.2) mg/dl Est Cr Clr Drug Dosing 51.9 ml/min Est GFR ( Amer) 69.0 ml/min Est GFR (Non-Af Amer) 59.5 ml/min BUN/Creatinine Ratio 23.7 H (10-20) Glucose 94 (70-99) mg/dl Calcium 8.7 (8.5-10.1) mg/dl Magnesium 2.3 (1.8-2.4) mg/dl Total Bilirubin 0.3 (0.2-1) mg/dl AST 25 (15-37) U/L ALT 36 (12-78) U/L Alkaline Phosphatase 73 (45-117) U/L Troponin I < 0.015 (0-0.045) ng/ml Total Protein 6.9 (6.4-8.2) gm/dl Albumin 3.5 (3.4-5.0) gm/dl Globulin 3.4 (2.5-4.0) gm/dl Albumin/Globulin Ratio 1.0 (0.9-2) COVID-19 Eval Order Blood Type Antibody Screen 03/09/21 03/09/21 Range/Units 18:46 20:15 WBC (4.8-10.8) K/uL RBC (4.2-5.4) M/uL Hgb (12.0-16.0) g/dL Hct (37-47) % MCV (80-100) fL MCH (25-34) pg MCHC (32-36) g/dL RDW Std Deviation (36.4-46.3) fL RDW Coeff of Ad (11.5-14.5) % Plt Count (130-400) K/uL MPV (7.4-10.4) fL Immature Gran % (Auto) % Neut % (Auto) % Lymph % (Auto) % [place] % (Auto) % Eos % (Auto) % Baso % (Auto) % Neut # (Auto) (1.4-6.5) K/uL Lymph # (Auto) (1.2-3.4) K/uL [place] # (Auto) (0.11-0.59) K/uL Eos # (Auto) (0-0.5) K/uL Baso # (Auto) (0-0.2) K/uL Immature Gran # (Auto) (0.00-0.02) K/uL PT (9.0-12.0) Seconds INR (0.9-1.1) APTT (21.0-31.0) Seconds PTT Ratio Sodium (136-145) mmol/L Potassium (3.5-5.1) mmol/L Chloride (98-107) mmol/L Carbon Dioxide (21-32) mmol/L Anion Gap (3-11) BUN (7-18) mg/dl Creatinine (0.6-1.2) mg/dl Est Cr Clr Drug Dosing ml/min Est GFR ( Amer) ml/min Est GFR (Non-Af Amer) ml/min BUN/Creatinine Ratio (10-20) Glucose (70-99) mg/dl Calcium (8.5-10.1) mg/dl Magnesium (1.8-2.4) mg/dl Total Bilirubin (0.2-1) mg/dl AST (15-37) U/L ALT (12-78) U/L Alkaline Phosphatase (45-117) U/L Troponin I (0-0.045) ng/ml Total Protein (6.4-8.2) gm/dl Albumin (3.4-5.0) gm/dl Globulin (2.5-4.0) gm/dl Albumin/Globulin Ratio (0.9-2) COVID-19 Eval Order Covid19 at [facility] Blood Type A Positive Antibody Screen NEGATIVE Imaging Data Radiologist's Impression: Head CT 03/09/21 18:40 CT head/brain wo con CLINICAL HISTORY: 80 years-old Female with left weakness eval for cva. Acute strokelike symptoms TECHNIQUE: Multiple axial CT images of the head were obtained without contrast. A dose lowering technique was utilized adhering to the principles of ALARA. COMPARISON: None. FINDINGS: No acute intracranial hemorrhage, midline shift, intracranial mass, hydrocephalus, territorial ischemia or abnormal extra-axial collection. Age- related involutional changes. Mild white matter hypodensities suggestive of chronic microvascular ischemic disease. Cerebral vascular calcifications. Mildly motion degraded exam. The calvarium is intact. Prior bilateral lens repair. The paranasal sinuses, mastoid air cells, and middle ear cavities are clear. IMPRESSION: No acute intracranial abnormality. ACT 112: Negative or not required by law. The above report was generated using voice recognition software. It may contain grammatical, syntax or spelling errors. Electronically signed by: William Carranza M.D. 03/09/2021 7:02 PM Head CTA 03/09/21 18:40 CT angio neck with con, CT angio head w con CLINICAL HISTORY: 80 years-old Female with Stroke Like Symptoms. Acute strokelike symptoms COMPARISON STUDY: Head CT of same day TECHNIQUE: Following the IV administration of 120 mL of Optiray, CT angiogram of the at and neck was performed from the aortic arch to the skull apex. Images are reviewed in the axial, sagittal, and coronal planes. 3-D MIPS images are created and assessed. IV contrast was administered without complication. All measurements were calculated based on NASCET criteria. A dose lowering technique was utilized adhering to the principles of ALARA. CT DOSE: 1416.03 mGy.cm FINDINGS: The imaged opacified pulmonary arterial tree is unremarkable. Extensive mixed plaque of the thoracic aortic arch with patency of the innominate and imaged subclavian arteries. Patent common carotid arteries. Prior right-sided carotid endarterectomy. The right ICA is widely patent. Severe mixed plaque of the left carotid bulb and proximal cervical segment left ICA results in 80% luminal n arrowing on image 205. Calcified plaque of the cavernous and supraclinoid segments without high-grade stenosis. The middle and anterior cerebral arteries are patent. Multifocal calcified plaque of the codominant vertebral arteries without significant stenosis. The basilar and posterior cerebral arteries are patent. Cerebral venous sinuses are patent. There is no abnormal intracranial enhancement. Emphysema. No pneumothorax. Multinodular thyroid with nodules measuring up to 1.3 cm on the right 4 cm on the left. Prior bilateral lens repair. Degenerative changes of the spine. IMPRESSION: 1. Extensive atherosclerotic plaque of the left carotid bulb and proximal left internal carotid artery results in approximately 80% luminal narrowing. 2. Prior right-sided carotid endarterectomy. 3. Otherwise unremarkable CTA of the head and neck. ACT 112: Negative or not required by law. The above report was generated using voice recognition software. It may contain grammatical, syntax or spelling errors. Electronically signed by: William Carranza M.D. 03/09/2021 7:28 PM Neck CTA 03/09/21 18:40 CT angio neck with con, CT angio head w con CLINICAL HISTORY: 80 years-old Female with Stroke Like Symptoms. Acute strokelike symptoms COMPARISON STUDY: Head CT of same day TECHNIQUE: Following the IV administration of 120 mL of Optiray, CT angiogram of the at and neck was performed from the aortic arch to the skull apex. Images are reviewed in the axial, sagittal, and coronal planes. 3-D MIPS images are created and assessed. IV contrast was administered without complication. All measurements were calculated based on NASCET criteria. A dose lowering technique was utilized adhering to the principles of ALARA. CT DOSE: 1416.03 mGy.cm FINDINGS: The imaged opacified pulmonary arterial tree is unremarkable. Extensive mixed plaque of the thoracic aortic arch with patency of the innominate and imaged subclavian arteries. Patent common carotid arteries. Prior right-sided carotid endarterectomy. The right ICA is widely patent. Severe mixed plaque of the left carotid bulb and proximal cervical segment left ICA results in 80% luminal narrowing on image 205. Calcified plaque of the cavernous and supraclinoid segments without high-grade stenosis. The middle and anterior cerebral arteries are patent. Multifocal calcified plaque of the codominant vertebral arteries without significant stenosis. The basilar and posterior cerebral arteries are patent. Cerebral venous sinuses are patent. There is no abnormal intracranial enhancement. Emphysema. No pneumothorax. Multinodular thyroid with nodules measuring up to 1.3 cm on the right 4 cm on the left. Prior bilateral lens repair. Degenerative changes of the spine. IMPRESSION: 1. Extensive atherosclerotic plaque of the left carotid bulb and proximal left internal carotid artery results in approximately 80% luminal narrowing. 2. Prior right-sided carotid endarterectomy. 3. Otherwise unremarkable CTA of the head and neck. ACT 112: Negative or not required by law. The above report was generated using voice recognition software. It may contain grammatical, syntax or spelling errors. Electronically signed by: William Carranza M.D. 03/09/2021 7:28 PM Shoulder X-Ray 03/09/21 18:40 XR shoulder LT min 2V routine HISTORY: 80 years-old Female pain eval for fx acute left shoulder pain COMPARISON: None TECHNIQUE: 3 views of the left shoulder FINDINGS: Demineralized appearance the bones. Mild to moderate glenohumeral with moderate AC joint osteoarthritis. No acute fracture, dislocation or opaque foreign body. The imaged lung collier appear clear. IMPRESSION: No acute fracture or dislocation. ACT 112: Negative or not required by law. The above report was generated using voice recognition software. It may contain grammatical, syntax or spelling errors. Electronically signed by: William Carranza M.D. 03/09/2021 7:17 PM Chest X-Ray 03/09/21 19:40 XR chest 1V portable HISTORY: 80 years-old Female cp acute atypical chest pain COMPARISON: CTA of the neck of same day TECHNIQUE: Portable AP view of the chest FINDINGS: Cardiac silhouette is upper limits of normal in size. Bilateral hilar prominence may represent pulmonary artery hypertension. Emphysema with interstitial coarsening, likely chronic. No pneumothorax, pleural effusion or overt pulmonary edema. Degenerative changes of the shoulders and spine. Right shoulder rotator cuff calcific tendinosis. IMPRESSION: Emphysema with interstitial coarsening, possibly on a chronic basis. ACT 112: Negative or not required by law. The above report was generated using voice recognition software. It may contain grammatical, syntax or spelling errors. Electronically signed by: William Carranza M.D. 03/09/2021 7:56 PM ECG Data Attestation: I personally reviewed and interpreted this ECG as follows: Indication: + other (Strokelike symptoms) Rate (beats per minute): 79 Rhythm: + normal sinus ECG [place]: + Normal ECG ST segments: no ST elevation ECG Findings: no PVCs MDM Narrative I did evaluate the patient as noted above. The patient is presenting with an episode of left-sided flaccid paralysis starting at 1:30 AM today. She is outside the window for IV TPA given the time of onset. On exam she is neurologically intact although she is having trouble lifting the left arm above the neck line. She states this is due to pain. I did call a stroke alert. IV access was established. I did place an order for continuous cardiac monitoring. The monitor showed normal sinus rhythm at a rate of 90 bpm. I did order and personally review the patient's 12-lead EKG as described above. She has no acute ischemic changes. I did order and personally reviewed the images of the patient's chest and left shoulder x-rays as described above. She has emphysematous changes. No fracture to the shoulder. I did order a urine analysis. I did order and review the patient's blood work as noted in the electronic medical record. Her white count is not elevated. She is anemic with a hemoglobin 11.1. Electrolytes are unremarkable. Troponin is negative. I did order a CT of the head and CT angiogram of the head and neck. I did review the images myself as well as the radiology report as described above. There is no acute intracranial abnormality. She does have extensive atherosclerotic plaque to the left carotid bulb and proximal left internal carotid artery resulting in approximately 80% luminal narrowing. I did discuss the test results with the patient. On reevaluation patient is better able to lift her arm up above her neckline. I did recommend hospitalization for further care and evaluation and MRI of the brain. I did discuss case with the hospitalist and lead case manager. Impression & Plan Left-sided weakness, Anemia Discharge Plan Visit Data Chief Complaint: Neuro Symptoms/Deficit Stated Complaint: IN BED LAST NIGHT COULDNT MOVE L SIDE ED Provider: Joe Carmen Discharge Problem: Left-sided weakness, Anemia Forms Stand Alone Forms: [facility] Prescriptions Prescriptions: No Action atorvastatin [Lipitor] 40 mg tablet 40 mg PO DAILY RF: 0 hydralazine 25 mg tablet 25 mg PO BID RF: 0 clopidogrel [Plavix] 75 mg tablet 75 mg PO DAILY RF: 0 montelukast [Singulair] 10 mg tablet 10 mg PO HS RF: 0 losartan [Cozaar] 100 mg tablet 100 mg PO DAILY RF: 0 Trelegy Ellipta 100-62.5-25 mcg blister with device 1 ea INHALATION DAILY RF: 0 multivitamin Tablet 1 tab PO DAILY RF: 0 albuterol sulfate 2.5 mg /3 mL (0.083 %) solution for nebulization 2.5 mg inhalation Q4 PRN (Reason: Shortness Of Breath Or Wheezing) RF: 0 amlodipine [Norvasc] 10 mg tablet 10 mg PO DAILY RF: 0 albuterol sulfate 90 mcg/actuation HFA aerosol inhaler 2 puff INHALATION Q4 PRN (Reason: Shortness Of Breath Or Wheezing) RF: 0 omega 5-fgq-scg-fish oil [Fish Oil] 1,000 mg (120 mg-180 mg) Capsule 1 cap PO BID RF: 0 gabapentin 100 mg capsule 100 mg PO TID PRN (Reason: cramping) RF: 0 furosemide 40 mg tablet 40 mg PO DAILY RF: 0 Referrals Referrals: Naida Goddard MD [Primary Care Provider] -
[2021-03-09 18:58] LABS: Basophils # (auto) 0.04 K/uL (0-0.2); Basophils % (auto) 0.6 %; Eosinophils # (auto) 0.43 K/uL (0-0.5); Eosinophils % (auto) 6.4 %; Hemoglobin 11.1 g/dL (12.0-16.0); Immature Granulocytes # (auto) 0.02 K/uL (0.00-0.02); Immature Granulocytes % (auto) 0.3 %; Lymphocytes # (auto) 1.69 K/uL (1.2-3.4); Lymphocytes % (auto) 25.1 %; Mean Corpuscular Hemoglobin 28.8 pg (25-34); Mean Corpuscular Hgb Conc 32.6 g/dL (32-36); Mean Corpuscular Volume 88.1 fL (80-100); Mean Platelet Volume 8.6 fL (7.4-10.4); Monocytes # (auto) 0.67 K/uL (0.11-0.59); Neutrophils # (auto) 3.88 K/uL (1.4-6.5); Neutrophils % (auto) 57.6 %; Platelet Count 346 K/uL (130-400); RDW Coefficient of Variation 14.6 % (11.5-14.5); RDW Standard Deviation 46.5 fL (36.4-46.3); Red Blood Count 3.86 M/uL (4.2-5.4); White Blood Count 6.73 K/uL (4.8-10.8)
[2021-03-09 19:04] LABS: Partial Thromboplastin Ratio 0.8; Partial Thromboplastin Time 20.9 Seconds (21.0-31.0); Prothrombin Time 10.3 Seconds (9.0-12.0)
--- NOTE | 2021-03-09 19:04 | CT Scan Report ---
CT head/brain wo con CLINICAL HISTORY: 80 years-old Female with left weakness eval for cva. Acute strokelike symptoms TECHNIQUE: Multiple axial CT images of the head were obtained without contrast. A dose lowering tech nique was utilized adhering to the principles of ALARA. COMPARISON: None. FINDINGS: No acute intracranial hemorrhage, midline shift, intracranial mass, hydrocephalus, territorial ischem ia or abnormal extra-axial collection. Age-related involutional changes. Mild white matter hypodensit ies suggestive of chronic microvascular ischemic disease. Cerebral vascular calcifications. Mildly mo tion degraded exam. The calvarium is intact. Prior bilateral lens repair. The paranasal sinuses, mastoid air cells, and m iddle ear cavities are clear. IMPRESSION: No acute intracranial abnormality. ACT 112: Negative or not required by law. The above report was generated using voice recognition software. It may contain grammatical, syntax o r spelling errors. Electronically signed by: William Carranza M.D. 03/09/2021 7:02 PM
[2021-03-09 19:14] LABS: Alanine Aminotransferase 36 U/L (12-78); Albumin Level 3.5 gm/dl (3.4-5.0); Aspartate Aminotransferase 25 U/L (15-37); BUN Creatinine Ratio 23.7 (10-20); Blood Urea Nitrogen 21 mg/dl (7-18); Calcium 8.7 mg/dl (8.5-10.1); Carbon Dioxide 29 mmol/L (21-32); Chloride 110 mmol/L (98-107); Creatinine Clr Calc Pharmacy 51.9 ml/min; Est GFR (Non-African American) 59.5 ml/min; Glucose 94 mg/dl (70-99); Magnesium 2.3 mg/dl (1.8-2.4); Potassium 3.9 mmol/L (3.5-5.1); Sodium 143 mmol/L (136-145)
[2021-03-09 19:19] LABS: Alkaline Phosphatase 73 U/L (45-117); Bilirubin,Total 0.3 mg/dl (0.2-1); Globulin 3.4 gm/dl (2.5-4.0); Total Protein 6.9 gm/dl (6.4-8.2); Troponin I < 0.015 ng/ml (0-0.045)
--- NOTE | 2021-03-09 19:19 | XRay Report ---
XR shoulder LT min 2V routine HISTORY: 80 years-old Female pain eval for fx acute left shoulder pain COMPARISON: None TECHNIQUE: 3 views of the left shoulder FINDINGS: Demineralized appearance the bones. Mild to moderate glenohumeral with moderate AC joint osteoarthrit is. No acute fracture, dislocation or opaque foreign body. The imaged lung collier appear clear. IMPRESSION: No acute fracture or dislocation. ACT 112: Negative or not required by law. The above report was generated using voice recognition software. It may contain grammatical, syntax o r spelling errors. Electronically signed by: William Carranza M.D. 03/09/2021 7:17 PM
--- NOTE | 2021-03-09 19:29 | CT Scan Report ---
CT angio neck with con, CT angio head w con CLINICAL HISTORY: 80 years-old Female with Stroke Like Symptoms. Acute strokelike symptoms COMPARISON STUDY: Head CT of same day TECHNIQUE: Following the IV administration of 120 mL of Optiray, CT angiogram of the at and neck was performed from the aortic arch to the skull apex. Images are reviewed in the axial, sagittal, and cor onal planes. 3-D MIPS images are created and assessed. IV contrast was administered without complicat ion. All measurements were calculated based on NASCET criteria. A dose lowering technique was utiliz ed adhering to the principles of ALARA. CT DOSE: 1416.03 mGy.cm FINDINGS: The imaged opacified pulmonary arterial tree is unremarkable. Extensive mixed plaque of the thoracic aortic arch with patency of the innominate and imaged subclavian arteries. Patent common carotid alisa rodolfo. Prior right-sided carotid endarterectomy. The right ICA is widely patent. Severe mixed plaque o f the left carotid bulb and proximal cervical segment left ICA results in 80% luminal narrowing on im age 89. Calcified plaque of the cavernous and supraclinoid segments without high-grade stenosis. The middle and anterior cerebral arteries are patent. Multifocal calcified plaque of the codominant vert ebral arteries without significant stenosis. The basilar and posterior cerebral arteries are patent. Cerebral venous sinuses are patent. There is no abnormal intracranial enhancement. Emphysema. No pneumothorax. Multinodular thyroid with nodules measuring up to 1.3 cm on the right 4 c m on the left. Prior bilateral lens repair. Degenerative changes of the spine. IMPRESSION: 1. Extensive atherosclerotic plaque of the left carotid bulb and proximal left internal carotid arter y results in approximately 80% luminal narrowing. 2. Prior right-sided carotid endarterectomy. 3. Otherwise unremarkable CTA of the head and neck. ACT 112: Negative or not required by law. The above report was generated using voice recognition software. It may contain grammatical, syntax o r spelling errors. Electronically signed by: William Carranza M.D. 03/09/2021 7:28 PM
--- NOTE | 2021-03-09 19:57 | XRay Report ---
XR chest 1V portable HISTORY: 80 years-old Female cp acute atypical chest pain COMPARISON: CTA of the neck of same day TECHNIQUE: Portable AP view of the chest FINDINGS: Cardiac silhouette is upper limits of normal in size. Bilateral hilar prominence may represent pulmon lachelle artery hypertension. Emphysema with interstitial coarsening, likely chronic. No pneumothorax, ple ural effusion or overt pulmonary edema. Degenerative changes of the shoulders and spine. Right should er rotator cuff calcific tendinosis. IMPRESSION: Emphysema with interstitial coarsening, possibly on a chronic basis. ACT 112: Negative or not required by law. The above report was generated using voice recognition software. It may contain grammatical, syntax o r spelling errors. Electronically signed by: William Carranza M.D. 03/09/2021 7:56 PM
--- NOTE | 2021-03-10 00:22 | History and Physical Report ---
DATE OF ADMISSION: 03/09/2021 CHIEF COMPLAINT: Stroke-like symptoms. 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 The patient is currently [facility], was brought in because of transient episode of left-sided weakness. 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 It lasted for about 1 hour and she is back to normal. Has pain in the left shoulder which is new. Currently having painful motions of the left upper extremity, but that is also improving. Denies any headache, no dizziness, no blurred visions, no earache, no runny nose, no sore throat, no cough. Appetite is okay. No dysphagia, no nausea, no chest pain, no shortness of breath, no abdominal pain. Normal bowel and bladder movements. No rash seen. States balance is somewhat off. Currently resting comfortably and hemodynamically stable. ALLERGIES: ADHESIVES. PAST MEDICAL HISTORY: As mentioned above. PAST SURGICAL HISTORY: Breast lesion excision, colonoscopy, EGDs, hemorrhoidectomy, sigmoidoscopy, right carotid endarterectomy, total abdominal hysterectomy with removal of tubes, left total hip replacement. MEDICATIONS: The patient is currently on albuterol nebulization q. 4 hours p.r.n., albuterol 2 puffs inhalation every 4 hours p.r.n., amlodipine 10 mg p.o. daily, Lipitor 40 mg p.o. daily, Plavix 75 mg p.o. daily, furosemide 40 mg p.o. daily, gabapentin 100 mg p.o. t.i.d. p.r.n., hydralazine 25 mg p.o. b.i.d., Cozaar 100 mg p.o. daily, Singulair 10 mg p.o. at bedtime, multivitamin 1 tablet p.o. daily, fish oil 1 capsule p.o. b.i.d., Trelegy Ellipta 1 inhalation daily. FAMILY HISTORY: Significant for father had stroke, mother had stroke. SOCIAL HISTORY: , currently living at a personal prison. Quit smoking in 2001, smoked half pack a day for 46 years. No alcohol use, no drug use. REVIEW OF SYSTEMS: As per HPI. Rest of review of systems negative. PHYSICAL EXAMINATION: GENERAL: The patient is of moderate build, not in acute distress. VITAL SIGNS: Temperature 36.8, pulse 83, respiratory rate 21, blood pressure 190/68, oxygen 93% on room air. HEENT: Pupils equal, round, and reactive to light. Extraocular muscles intact. No pallor, no icterus. Oral mucosa moist. NECK: No JVD. No neck masses. CARDIOVASCULAR: S1, S2 heard, regular rate and rhythm, no murmur, no gallop. RESPIRATORY SYSTEM: Normal AP diameter. No accessory muscle use. No wheezing, no crackles. ABDOMEN: Soft, bowel sounds present, nontender. No distention. CENTRAL NERVOUS SYSTEM: Alert and oriented. Cranial nerves II-XII grossly intact. Speech is clear. No facial droop seen. Power 5/5 in all extremities. Sensation is intact. No pronator drift. Coordination of movements normal. Position sense intact. EXTREMITIES: No edema, no erythema. LABORATORY DATA: WBC 6.7, hemoglobin 11.1, hematocrit 34, platelets 346. PT 11.3, INR 1, APTT 23.9. Sodium 143, potassium 3.9, chloride 110, bicarbonate 29, BUN 21, creatinine 0.9, serum glucose 94, calcium 8.7, magnesium 2.3, total bilirubin 0.3, AST 55, ALT 36, alkaline phosphatase 73. Troponin I less than 0.015. SARS-CoV-2 PCR negative. IMAGING DATA: Chest x-ray, emphysema with interstitial coarsening. Shoulder x-ray, no acute findings. CTA of the head and neck shows extensive atherosclerotic block of the left carotid bulb and proximal left internal carotid artery that results in approximately 80% intraluminal narrowing. Prior right-sided carotid endarterectomy, otherwise unremarkable CT of the head and neck. CT of the head, no acute intracranial abnormalities seen. EKG: Normal sinus rhythm at a rate of 79, no previous ECGs available. ASSESSMENT AND PLAN: This is an 80-year-old female who presents with stroke-like symptoms. 1. Stroke-like symptoms: The patient had about 1 hour of numbness and weakness of left extremities around 1:00 a.m. in the morning. Currently symptom is improved. CAT scan, no acute findings, but CTA of the neck showing left internal carotid artery, 80% narrowing. The patient is on Plavix at home. We will add aspirin, continue her home statin. We will do a full stroke workup with MRI scan, echocardiogram. PT and OT, speech therapy, and neurology recommendations in the a.m. and closely monitor in the tele floor. 2. History of obstructive sleep apnea: CPAP at bedtime. 3. Prediabetes: Will follow HbA1c levels. Diabetic diet. 4. Chronic obstructive pulmonary disease: Continue home inhalers, currently stable. 5. Chronic diastolic congestive heart failure: Continue her home Lasix. 6. History of aortic valve insufficiency: We will follow the echocardiogram. 7. History of carotid stenosis: Status post right carotid endarterectomy, currently showing left carotid stenosis. Will consult vascular surgery. On Plavix and statin and aspirin for now. 8. Hypertension: Continue home medication of losartan, hydralazine, and amlodipine. We will monitor the blood pressure. 9. Hyperlipidemia: Continue statin. 10. History of transient ischemic attack: On aspirin, Plavix, and statin. 11. History of follicular lymphoma, stage III disease: Diagnosed in 2013, currently under observation, follows with hematology/oncology. 12. History of iron deficiency anemia: Follow up with hematology/oncology. Currently hemoglobin stable at 11.1. 13. Left shoulder pain. shoulder x ray ok. Will follow ct scan. 13. Deep venous thrombosis prophylaxis: Sequential compression devices for now. 14. Disposition: Closely monitor in the tele floor. PT and OT prior to discharge. Social service to help with discharge planning. Level 1 full code. MTDD
[2021-03-10] MEDS ORDERED: GABAPENTIN 100 MG CAP PO PRN (00:39)
[2021-03-10] MEDS ORDERED: ACETAMINOPHEN 325 MG TAB PO PRN (00:39)
[2021-03-10] MEDS ORDERED: ALBUTEROL HFA 8 GM INHALER INH PRN (00:39)
[2021-03-10] MEDS ORDERED: PHARMACIST DISCHARGE MED REC CONSULT PRN (00:39)
[2021-03-10] MEDS ORDERED: ALBUTEROL 0.083% NEBU SOLN 3 ML VIAL INH PRN (00:39)
[2021-03-10] MEDS ORDERED: NITROGLYCERIN SL 0.4 MG/TAB TAB SL PRN (00:39)
[2021-03-10] MEDS ORDERED: POLYETHYLENE (MIRALAX) 17 GM PACK PO PRN (00:39)
[2021-03-10] MEDS: SODIUM CHLORIDE 0.9% 1000ML 1,000 ML IV SCH ×2 (01:00→14:24)
[2021-03-10] MEDS ORDERED: ASPIRIN 81 MG CHEW PO ONE (01:12)
[2021-03-10] MEDS ORDERED: GADOBUTROL 65ML VIAL IV ONE (02:25)
[2021-03-10] MEDS: hydrALAZINE HCL 25 MG TAB PO SCH ×3 (02:44→20:08)
[2021-03-10 07:49] LABS: Basophils # (auto) 0.03 K/uL (0-0.2); Basophils % (auto) 0.5 %; Eosinophils # (auto) 0.44 K/uL (0-0.5); Eosinophils % (auto) 7.2 %; Hematocrit (blood only) 31.9 % (37-47); Hemoglobin 10.2 g/dL (12.0-16.0); Immature Granulocytes # (auto) 0.01 K/uL (0.00-0.02); Immature Granulocytes % (auto) 0.2 %; Lymphocytes % (auto) 18.1 %; Mean Corpuscular Hemoglobin 28.7 pg (25-34); Mean Corpuscular Volume 89.9 fL (80-100); Mean Platelet Volume 8.5 fL (7.4-10.4); Monocytes # (auto) 0.58 K/uL (0.11-0.59); Monocytes % (auto) 9.5 %; Neutrophils # (auto) 3.93 K/uL (1.4-6.5); Neutrophils % (auto) 64.5 %; Platelet Count 308 K/uL (130-400); RDW Coefficient of Variation 14.4 % (11.5-14.5); RDW Standard Deviation 47.2 fL (36.4-46.3); Red Blood Count 3.55 M/uL (4.2-5.4); White Blood Count 6.09 K/uL (4.8-10.8)
[2021-03-10] MEDS: ASPIRIN 81 MG ECTAB PO SCH (07:49)
[2021-03-10] MEDS: ATORVASTATIN 40 MG TAB PO SCH (07:49)
[2021-03-10] MEDS: amLODIPine BESYLATE 5 MG TAB PO SCH (07:49)
[2021-03-10] MEDS: LOSARTAN POTASSIUM 50 MG TAB PO SCH (07:50)
[2021-03-10] MEDS: CLOPIDOGREL BISULFATE 75 MG TAB PO SCH (07:50)
[2021-03-10] MEDS: MULTIVITAMIN TAB PO SCH (07:50)
[2021-03-10] MEDS: UMECLIDINIUM/VILANTEROL 62.5/25MCG 7 PUFFS/INHALER INH SCH (07:50)
[2021-03-10] MEDS: FLUTICASONE FUROATE 100MCG 14 PUFFS/INHALER INH SCH (07:51)
[2021-03-10 08:20] LABS: Estimated Average Glucose 111 mg/dl; Hemoglobin A1C 5.5 % (4.5-5.6)
[2021-03-10 08:22] LABS: Calcium 8.3 mg/dl (8.5-10.1); Creatinine Clr Calc Pharmacy 77.7 ml/min; Est GFR (African American) 98.4 ml/min; Est GFR (Non-African American) 84.9 ml/min; Potassium 3.6 mmol/L (3.5-5.1)
--- NOTE | 2021-03-10 08:43 | Magnetic Resonance Report ---
MRI OF THE BRAIN WITHOUT AND WITH IV CONTRAST CLINICAL HISTORY: Stroke like symptoms. Left arm numbness. COMPARISON STUDY: Head CT and CTA of the head March 09, 2021. TECHNIQUE: Utilizing a 1.5 Gely magnet and dedicated coil, multiplanar, multiecho imaging of the br ain was performed pre and postcontrast administration. IV administration of 8 mL of Gadavist contras t was uneventful. FINDINGS: There are no foci of restricted diffusion to suggest acute infarct. No acute intracranial h emorrhage, midline shift or mass effect is present. Ventricular system is normal. Basilar cisterns ar e patent. There are no extra axial collections. No intracranial mass or pathologic enhancement is martín ntified. White matter T2 hyperintense foci reflect small vessel disease. 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 There may be an old right frontal lobe infarct. This is also small. Ca lvarial signal is normal. IMPRESSION: 1. No acute intracranial findings. 2. No intracranial mass or pathologic enhancement. 3. White matter T2 hyperintense foci suggest small vessel disease. A few old small infarcts. ACT 112: Negative or not required by law. Electronically signed by: Kody Salomon M.D. 03/10/2021 8:42 AM
[2021-03-10] MEDS: FUROSEMIDE 40 MG TAB PO SCH (09:27)
--- NOTE | 2021-03-10 11:53 | Hospitalist Progress Note ---
Date of Service March 10, 2021 Assessment & Plan (1) Left-sided weakness: (2) TIA (transient ischemic attack): CT head does not show any acute abnormalities MRI brain does not show any acute infarct CT angio does show extensive atherosclerotic plaque in the left carotid bulb and proximal left internal carotid with approximately 80% luminal narrowing Patient symptoms resolved. TIA Patient Plavix and atorvastatin at home. Started on aspirin. Will appreciate neurology evaluation and vascular evaluation PT/OT evaluation A1c is 5.5 Echocardiogram noted (3) H/O carotid endarterectomy: History of TIA status post right carotid endarterectomy (4) ISELA (obstructive sleep apnea): Continue CPAP chest (5) Chronic diastolic heart failure: Euvolemic Continue home medication including Lasix Admission and Anticipated Discharge Date Admission Date: March 09, 2021 Subjective 80-year-old female with past medical history significant for COPD, allergic rhinitis, obstructive sleep apnea, nocturnal hypoxia, chronic diastolic CHF, hypertension, aortic valve insufficiency, peripheral vascular disease, carotid stenosis, iron deficiency, GERD, osteoarthritis, circumscribed scleroderma, osteopenia of neck of femur, osteoporosis, 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 Reported symptoms lasted about 30 minutes tomorrow then was completely resolved. Denies any complaints at this time No focal weakness or numbness No changes speech or swallowing Review of Systems Review of Systems: All systems reviewed & are unremarkable except as noted in Subjective Physical Exam Constitutional: + well hydrated; no acute distress Eyes: PERRL, conjunctivae normal, anicteric sclerae ENMT: external ear and nose normal, oropharynx normal Respiratory: normal respiratory effort, lungs clear to auscultation Cardiovascular: Rate/Rhythm: regular rate and regular rhythm S1-S2 Gastrointestinal (Abdomen): normal bowel sounds, soft, nontender, no hepatosplenomegaly Musculoskeletal: no cyanosis or clubbing, extremities motor strength 5/5 Neurologic: PERRL, EOMI, accommodation nl, no face palsy, no dysarthria Psychiatric: A+Ox3, euthymic affect Results & Data Results & Data ([facility]) Vital Signs (Past 12 Hours) Vital Signs Temp Pulse Pulse Resp BP Pulse Ox Pulse Ox 03/10/21 11:04 68 150/68 H 03/10/21 08:38 71 03/10/21 08:14 37.1 C 72 20 146/68 H 91 03/10/21 03:48 72 18 95 03/10/21 03:00 36.6 C 79 18 161/67 H 92 03/10/21 00:20 36.6 C 83 18 172/68 H 94 94 Laboratory Results Abnormal lab results 03/09/21 03/09/21 03/09/21 Range/Units 18:45 18:45 18:45 RBC 3.86 L (4.2-5.4) M/uL Hgb 11.1 L (12.0-16.0) g/dL Hct 34.0 L (37-47) % RDW Std Deviation 46.5 H (36.4-46.3) fL RDW Coeff of Ad 14.6 H (11.5-14.5) % Lymph # (Auto) (1.2-3.4) K/uL [place] # (Auto) 0.67 H (0.11-0.59) K/uL APTT 20.9 L (21.0-31.0) Seconds Chloride 110 H (98-107) mmol/L BUN 21 H (7-18) mg/dl BUN/Creatinine Ratio 23.7 H (10-20) Calcium (8.5-10.1) mg/dl 03/10/21 03/10/21 Range/Units 07:30 07:30 RBC 3.55 L (4.2-5.4) M/uL Hgb 10.2 L (12.0-16.0) g/dL Hct 31.9 L (37-47) % RDW Std Deviation 47.2 H (36.4-46.3) fL RDW Coeff of Ad (11.5-14.5) % Lymph # (Auto) 1.10 L (1.2-3.4) K/uL [place] # (Auto) (0.11-0.59) K/uL APTT (21.0-31.0) Seconds Chloride 109 H (98-107) mmol/L BUN (7-18) mg/dl BUN/Creatinine Ratio 26.0 H (10-20) Calcium 8.3 L (8.5-10.1) mg/dl
--- NOTE | 2021-03-10 14:52 | Consultation ---
Date of Consultation March 10, 2021 Assessment & Plan (1) Asymptomatic carotid artery stenosis: On CT angio this patient has a proximal 80% narrowing of her left internal carotid artery. She is asymptomatic from this lesion at this time. Her left- sided weakness does not correlate to the left carotid stenosis. Right carotid endarterectomy site is widely patent with no evidence of restenosis seen. I would recommend a left carotid endarterectomy for the asymptomatic severe stenosis of the left internal carotid artery. This will be scheduled in approximately 2 to 3 weeks. We will see her in the office in 1 week for follow- up as an outpatient. I will continue her statin aspirin Plavix at this point. Thank you very much for letting us participate in the care of this patient. History of Present Illness Reason for Consultation: Left internal carotid artery stenosis Attending Physician: Dary Bravo MD History of Present Illness This is an 80-year-old female who has multiple medical problems. She came to the emergency room after having an episode of left-sided numbness. This lasted half hour and then totally resolved. She has not had any previous episodes of this problem. She did have TIAs in the past and underwent a right carotid endarterectomy for her right carotid stenosis. She had no further problems after the endarterectomy. She denies any claudication. She denies any significant weight loss. She denies any neurological deficit at this point. Allergies Allergy/AdvReac Type Severity Reaction Status Date / Time adhesive Allergy Mild HIVES Verified 03/09/21 19:37 No Known Drug Allergies Allergy Unknown . Verified 03/09/21 19:37 Home Medications Medication Instructions Recorded Confirmed Type Greg Villalobosta 1 ea INHALATION DAILY 09/18/19 03/09/21 History albuterol sulfate 2 puff INHALATION Q4 PRN 09/18/19 03/09/21 History albuterol sulfate 2.5 mg INHALATION Q4 PRN 09/18/19 03/09/21 History amlodipine [Norvasc] 10 mg PO DAILY 09/18/19 03/09/21 History atorvastatin [Lipitor] 40 mg PO DAILY 09/18/19 03/09/21 History clopidogrel [Plavix] 75 mg PO DAILY 09/18/19 03/09/21 History hydralazine 25 mg PO BID 09/18/19 03/09/21 History losartan [Cozaar] 100 mg PO DAILY 09/18/19 03/09/21 History montelukast [Singulair] 10 mg PO HS 09/18/19 03/09/21 History multivitamin 1 tab PO DAILY 09/18/19 03/09/21 History omega 6-[id number]-[id number]-fish oil [Fish Oil] 1 cap PO BID 09/18/19 03/09/21 History furosemide 40 mg PO DAILY 03/09/21 03/09/21 History gabapentin 100 mg PO TID PRN 03/09/21 03/09/21 History Patient History Medical History (Updated 03/10/21 @ 14:51 by Pancho Whalen MD) Chronic diastolic heart failure COPD (chronic obstructive pulmonary disease) Depression GERD (gastroesophageal reflux disease) Hyperlipidemia Hypertension Lymphoma Nocturnal hypoxemia Non-Hodgkin lymphoma ISELA (obstructive sleep apnea) Prediabetes TIA (transient ischemic attack) Surgical History H/O carotid endarterectomy History of hysterectomy History of left hip replacement Family History Other Stroke Social History Smoking Status: Never smoker Hx Alcohol Use: Yes Alcohol type: wine Hx Substance Use: No Preferred Language: [place] Communication Ability: Effective Catalytic Case Operator Required: No Beliefs That Will Affect Care: None marital status: / Current Living Situation: Alone Current Living Situation Comment: [facility] Other Information That Helps Us Care for You: No Feels Safe at Home: Yes Safety Concerns: Feels Safe At This Time Assistive Devices: None Review of Systems Review of Systems: All systems reviewed & are unremarkable except as noted in HPI & below Physical Exam Constitutional: well developed and well nourished; no acute distress Neck: trachea midline Respiratory: normal respiratory effort; no respiratory distress Auscultation: lungs clear to auscultation bilaterally Cardiovascular: Rate/Rhythm: regular rate and regular rhythm Vessels: + carotid bruit (Mild on both sides.), femoral pulses present and radial pulses present Extremities: normal capillary refill Gastrointestinal (Abdomen): Inspection/Auscultation: abdomen normal to inspection; abdomen not distended Percussion/Palpation: abdomen soft; abdomen nontender and no pulsatile mass Musculoskeletal: no cyanosis or clubbing, extremities motor strength 5/5 Skin: no rashes, warm and dry Neurologic: CN's II-XI intact bilaterally and moves all extremities Psychiatric: Orientation: alert and oriented x 3 Results & Data ([facility]) Vital Signs (Past 12 Hours) Vital Signs Temp Pulse Pulse Resp BP Pulse Ox 03/10/21 12:22 36.6 C 73 20 136/61 92 03/10/21 11:04 68 150/68 H 03/10/21 08:38 71 03/10/21 08:14 37.1 C 72 20 146/68 H 91 03/10/21 03:48 72 18 95 03/10/21 03:00 36.6 C 79 18 161/67 H 92
--- NOTE | 2021-03-10 15:48 | Communication Note ---
Date of Service: March 10, 2021 Keisha is 86 years old is right-handed and is a patient of Dr. Sd Alfred of [place] and was admitted to the hospital last night for evaluation of a 45- minute episode of left arm and face numbness with some clumsiness that cleared up but then when she arrived the ER was associated with some left shoulder pain also transient type all of which is cleared Evaluation thus far has shown no evidence for an acute cerebral infarction, only small lacunar infarctions, and a high-grade 80 to 90% stenosis of the left internal carotid artery which of course would not explain her symptoms but is apparently something is known to the vascular surgery team in [place] and was detected by ultrasound about a month ago at which point it was 70% or greater She is apparently now being scheduled to see someone in that department and probably have an endarterectomy in the future In terms of the left arm paresthesias these symptoms are very similar to a seri es of TIAs she had perhaps back in 2008 or 2009 that culminated in evaluation of her right internal carotid artery and an endarterectomy done by vascular surgeon in [place] with no recurrence since that time Currently she is asymptomatic feels well and voices no complaints other than some cramping paresthesias of her calf muscles which is a chronic problem occurs without any associated back pain or distal lower extremity numbness without bowel or bladder dysfunction and is something it can be addressed as an outpatient Past medical history reveals anemia COPD history of cellulitis and tenosynovitis of the fingers of left hand, history of left hip replacement, the remote carotid endarterectomy on the right, hysterectomy in the past, obstructive sleep apnea, GERD, the TIAs that she had in the past and now another TIA involving the contralateral side, prediabetes, depression, non-Hodgkin's lymphoma now in remission, dyslipidemia, hypertension, chronic diastolic heart failure, Medications at home include albuterol amlodipine atorvastatin Plavix Lasix gabapentin hydralazine losartan Singulair multivitamins omega-3 fatty acids Ellipta she has allergies to adhesive tape and no other agents graft aspirin has appropriately been added to her regimen System review reveals good general health no Covid infection no new issues or for HEENT, cardiovascular pulmonary gastrointestinal genitourinary musculoskeletal dermatologic or hematologic systems other than the TIA that prompted hospital admission yesterday Imaging studies are described above and in more detail in the EMR Laboratory studies reveal evidence for a mild anemia and lymphopenia slight elevation of the BUN with normal creatinine and an elevated glomerular filtration rate and are otherwise unremarkable EKG is apparently showing sinus rhythm An echocardiogram may have been done but I cannot locate a report Vital signs include a blood pressure 136/61 pulse of 73 and regular respirations are 20 temp is 36.6 O2 saturations 92% on room air She is awake alert oriented in 3 spheres quite lessened slightly hearing impaired Cranial nerves are normal with normal visual collier normal facial motility and strength clear speech normal facial sensation Gait station coordination was not tested in detail but at the bedside there was no drift pronation sign tremor tics or choreiform activity she had excellent strength and coordination in all extremities Reflexes were 1+ symmetrical toes were downgoing no Lam signs were seen Muscle strength testing is quite normal with no atrophy or fasciculations Sensory examination was intact to vibration light touch temperature and proprioception Clinically this was a right hemispheric TIA which unfortunately is not explained on the basis of her extracranial vasculature and therefore needs to be considered a potential cardiogenic embolization without leaving any evidence for injury on MRI She needs to have an echocardiogram and an outpatient Zio patch unless of course we find evidence of atrial fibrillation during her period of time here She will need to have the left internal carotid stenosis addressed as it really is high-grade and while asymptomatic has reached a point where I think we can justify operative intervention but this will be left up to vascular surgery In terms of anticoagulation I would suggest dual antiplatelet therapy returning to aspirin and Plavix for at least 21 days and then perhaps reverting back to aspirin alone since the current event happened on Plavix At this point neurology has no other suggestions other than to review the echo, obtain outpatient ZIO unless there is atrial fibrillation on her monitor in which case then have cardiology address the issue and if not to discharge her on dual antiplatelet therapy and have her follow-up with neurology in about 3 to 4 weeks Leif Howell MD
--- NOTE | 2021-03-10 20:50 | CT Scan Report ---
CT shoulder LT wo con CT DOSE: 293.32 mGycm CLINICAL HISTORY: Shoulder pain TECHNIQUE: Helical images were acquired in transverse plane. Axial and coronal reformatted images wer e acquired. A dose lowering technique was utilized adhering to the principles of ALARA. COMPARISON STUDY: X-ray study dated 03/09/2021 FINDINGS: There are moderate osteoarthritic changes within the glenohumeral joint. Degenerative acuna es are also present within the acromioclavicular joint. No acute fractures are visualized. No destruc tive lesions are identified on conventional radiographic evaluation. If there is clinical concern ove r the presence of rotator cuff pathology, then MRI would be considered the test of choice in follow-u p. No pathologic soft tissue masses are visualized. There is a small amount of fluid within the subac romial bursa. IMPRESSION: 1. No acute fractures or dislocations 2. Moderate arthritic change 3. No destructive lesions identified 4. No pathologic soft tissue masses 5. There is a small amount of fluid within the subacromial bursa. ACT 112: Negative or not required by law. Electronically signed by: Misael Henriquez M.D. 03/10/2021 8:48 PM
[2021-03-10] MEDS ORDERED: MONTELUKAST SODIUM 10 MG TABLET PO SCH (21:00)
--- NOTE | 2021-03-11 06:27 | Electrocardiogram Report ---
Test Reason : Blood Pressure : / mmHG Vent. Rate : 079 BPM Atrial Rate : 079 BPM P-R Int : 192 ms QRS Dur : 100 ms QT Int : 416 ms P-R-T Axes : 074 052 066 degrees QTc Int : 477 ms Normal sinus rhythm Normal ECG No previous ECGs available Confirmed by Aime Villela ([id number]) on 03/11/2021 6:27:07 AM Referred By: Naida Alfred Confirmed By:Aime Villela
[2021-03-11 06:42] LABS: Basophils # (auto) 0.03 K/uL (0-0.2); Basophils % (auto) 0.5 %; Eosinophils # (auto) 0.58 K/uL (0-0.5); Eosinophils % (auto) 9.7 %; Hematocrit (blood only) 32.7 % (37-47); Hemoglobin 10.8 g/dL (12.0-16.0); Immature Granulocytes # (auto) 0.01 K/uL (0.00-0.02); Immature Granulocytes % (auto) 0.2 %; Lymphocytes # (auto) 1.27 K/uL (1.2-3.4); Lymphocytes % (auto) 21.3 %; Mean Corpuscular Hemoglobin 28.9 pg (25-34); Mean Corpuscular Volume 87.4 fL (80-100); Mean Platelet Volume 8.5 fL (7.4-10.4); Monocytes # (auto) 0.57 K/uL (0.11-0.59); Monocytes % (auto) 9.6 %; Neutrophils # (auto) 3.49 K/uL (1.4-6.5); Neutrophils % (auto) 58.7 %; Platelet Count 311 K/uL (130-400); RDW Coefficient of Variation 14.3 % (11.5-14.5); RDW Standard Deviation 45.1 fL (36.4-46.3); Red Blood Count 3.74 M/uL (4.2-5.4); White Blood Count 5.95 K/uL (4.8-10.8)
[2021-03-11 07:12] LABS: Calcium 8.7 mg/dl (8.5-10.1); Creatinine Clr Calc Pharmacy 82.7 ml/min; Est GFR (African American) 100.6 ml/min; Est GFR (Non-African American) 86.8 ml/min; Potassium 3.7 mmol/L (3.5-5.1)
[2021-03-11] MEDS: UMECLIDINIUM/VILANTEROL 62.5/25MCG 7 PUFFS/INHALER INH SCH (08:35)
[2021-03-11] MEDS: FLUTICASONE FUROATE 100MCG 14 PUFFS/INHALER INH SCH (08:35)
[2021-03-11] MEDS: CLOPIDOGREL BISULFATE 75 MG TAB PO SCH (08:36)
[2021-03-11] MEDS: ASPIRIN 81 MG ECTAB PO SCH (08:36)
[2021-03-11] MEDS: hydrALAZINE HCL 25 MG TAB PO SCH (08:37)
[2021-03-11] MEDS: MULTIVITAMIN TAB PO SCH (08:38)
[2021-03-11] MEDS: ATORVASTATIN 40 MG TAB PO SCH (08:39)
[2021-03-11] MEDS: FUROSEMIDE 40 MG TAB PO SCH (08:39)
[2021-03-11] MEDS: amLODIPine BESYLATE 5 MG TAB PO SCH (08:39)
[2021-03-11] MEDS: LOSARTAN POTASSIUM 50 MG TAB PO SCH (08:40)
[2021-03-11] MEDS ORDERED: STROKE PATIENT DISCHARGE STA (11:15)
--- NOTE | 2021-03-11 11:16 | Discharge Summary ---
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 The patient is currently living at [facility], was brought in because of transient episode of left-sided weakness. 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 It lasted for about 1 hour and she is back to normal. Has pain in the left shoulder which is new. Currently having painful motions of the left upper extremity, but that is also improving. Denies any headache, no dizziness, no blurred visions, no earache, no runny nose, no sore throat, no cough. Appetite is okay. No dysphagia, no nausea, no chest pain, no shortness of breath, no abdominal pain. Normal bowel and bladder movements. No rash seen. States balance is somewhat off. Currently resting comfortably and hemodynamically stable. Admission Exam Per Admitting Provider GENERAL: The patient is of moderate build, not in acute distress. VITAL SIGNS: Temperature 36.8, pulse 83, respiratory rate 21, blood pressure 190/68, oxygen 93% on room air. HEENT: Pupils equal, round, and reactive to light. Extraocular muscles intact. No pallor, no icterus. Oral mucosa moist. NECK: No JVD. No neck masses. CARDIOVASCULAR: S1, S2 heard, regular rate and rhythm, no murmur, no gallop. RESPIRATORY SYSTEM: Normal AP diameter. No accessory muscle use. No wheezing, no crackles. ABDOMEN: Soft, bowel sounds present, nontender. No distention. CENTRAL NERVOUS SYSTEM: Alert and oriented. Cranial nerves II-XII grossly intact. Speech is clear. No facial droop seen. Power 5/5 in all extremities. Sensation is intact. No pronator drift. Coordination of movements normal. Position sense intact. EXTREMITIES: No edema, no erythema. Principal Diagnosis Transient ischemic attack Left carotid stenosis Discharge Exam Constitutional + well hydrated; no acute distress Eyes PERRL, conjunctivae normal, anicteric sclerae ENMT external ear and nose normal, oropharynx normal Respiratory normal respiratory effort, lungs clear to auscultation Cardiovascular Rate/Rhythm: regular rate and regular rhythm S1-S2 Gastrointestinal (Abdomen) normal bowel sounds, soft, nontender, no hepatosplenomegaly Musculoskeletal no cyanosis or clubbing, extremities motor strength 5/5 Neurologic PERRL, EOMI, accommodation nl, no face palsy, no dysarthria Psychiatric A+Ox3, euthymic affect Discharge Data Allergies Allergy/AdvReac Type Severity Reaction Status Date / Time adhesive Allergy Mild HIVES Verified 03/09/21 19:37 No Known Drug Allergies Allergy Unknown . Verified 03/09/21 19:37 Consultations 03/09/21 19:39 ED Decision to Admit Stat 03/10/21 07:01 Consult Vascular Surgery Routine 03/10/21 08:00 Consult Neurology Routine Ordered Studies 03/09/21 18:40 CT angio head w con Stat CT angio neck with con Stat The imaged opacified pulmonary arterial tree is unremarkable. Extensive mixed plaque of the thoracic aortic arch with patency of the innominate and imaged subclavian arteries. Patent common carotid arteries. Prior right-sided carotid endarterectomy. The right ICA is widely patent. Severe mixed plaque of the left carotid bulb and proximal cervical segment left ICA results in 80% luminal narrowing on image 205. Calcified plaque of the cavernous and supraclinoid segments without high-grade stenosis. The middle and anterior cerebral arteries are patent. Multifocal calcified plaque of the codominant vertebral arteries without significant stenosis. The basilar and posterior cerebral arteries are patent. Cerebral venous sinuses are patent. There is no abnormal intracranial enhancement. Emphysema. No pneumothorax. Multinodular thyroid with nodules measuring up to 1.3 cm on the right 4 cm on the left. Prior bilateral lens repair. Degenerative changes of the spine. IMPRESSION: 1. Extensive atherosclerotic plaque of the left carotid bulb and proximal left internal carotid artery results in approximately 80% luminal narrowing. 2. Prior right-sided carotid endarterectomy. 3. Otherwise unremarkable CTA of the head and neck. CT head/brain wo con Stat No acute intracranial hemorrhage, midline shift, intracranial mass, hydrocephalus, territorial ischemia or abnormal extra-axial collection. Age- related involutional changes. Mild white matter hypodensities suggestive of chronic microvascular ischemic disease. Cerebral vascular calcifications. Mildly motion degraded exam. The calvarium is intact. Prior bilateral lens repair. The paranasal sinuses, mastoid air cells, and middle ear cavities are clear. IMPRESSION: No acute intracranial abnormality. 03/10/21 00:39 MR brain wo/w con Urgent There are no foci of restricted diffusion to suggest acute infarct. No acute intracranial hemorrhage, midline shift or mass effect is present. Ventricular system is normal. Basilar cisterns are patent. There are no extra axial collections. No intracranial mass or pathologic enhancement is identified. White matter T2 hyperintense foci reflect small vessel disease. 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 There may be an old right frontal lobe infarct. This is also small. Calvarial signal is normal. IMPRESSION: 1. No acute intracranial findings. 2. No intracranial mass or pathologic enhancement. 3. White matter T2 hyperintense foci suggest small vessel disease. A few old small infarcts. 03/10/21 07:01 CT shoulder LT wo con Urgent There are moderate osteoarthritic changes within the glenohumeral joint. Degenerative changes are also present within the acromioclavicular joint. No acute fractures are visualized. No destructive lesions are identified on conventional radiographic evaluation. If there is clinical concern over the presence of rotator cuff pathology, then MRI would be considered the test of choice in follow-up. No pathologic soft tissue masses are visualized. There is a small amount of fluid within the subacromial bursa. IMPRESSION: 1. No acute fractures or dislocations 2. Moderate arthritic change 3. No destructive lesions identified 4. No pathologic soft tissue masses 5. There is a small amount of fluid within the subacromial bursa. Hospital Course (1) Left-sided weakness: (2) TIA (transient ischemic attack): CT head does not show any acute abnormalities MRI brain does not show any acute infarct CT angio does show extensive atherosclerotic plaque in the left carotid bulb and proximal left internal carotid with approximately 80% luminal narrowing Patient symptoms resolved. TIA Patient on Plavix and atorvastatin at home. Started on aspirin. He is to be on aspirin and Plavix for 21 days after which aspirin will be continued and Plavix discontinued. Will need to follow-up with neurology in 3 to 4 weeks A1c is 5.5 Patient's symptom does not correlate with left carotid stenosis. Echo showed moderate conc LVH, EF 60-65, LA moderately dilated LA, mild to mod Rt vent hypertrophy, mild to moderate Aortic stenosis, mild mitral regurg Patient needs to have Zio patch testing Patient already set up to follow-up with vascular outpatient for management of left carotid stenosis (3) H/O carotid endarterectomy: History of TIA status post right carotid endarterectomy (4) ISELA (obstructive sleep apnea): Continue CPAP chest (5) Chronic diastolic heart failure: Euvolemic Continue home medication including Lasix Total Time Total Time Spent Total Time Spent (In Minutes): 50 Total Time Includes: Examination of the Patient, Discharge Planning, Medication Reconciliation and Communication With Other Providers Discharge Plan Discharge Items Patient Disposition: Home - Self-Care Reason For Visit: STROKE LIKE SYMPTOMS Discharge Diagnosis: Transient ischemic attack Left carotid artery stenosis Activity: Resume your previous activity Non-emergency contact: Primary Care Provider and Neurologist Call non-emergency contact if: you have any medication questions and your symptoms worsen Follow-up/Referrals: Pancho Whalen MD [Physician] - 03/17/21 10:15 am (Call [phone] to schedule an office visit for the week after discharge from the hospital. Call with any questions. March 17 @ 10:[address] Whalen) Naida Goddard MD [Primary Care Provider] - (Date & Time 03/16/2021 10:00 AM Provider Jacinta Diallo PA-C Department Family [facility] ) Diet: Heart Healthy Addtl Attending Provider Instructions: Mrs Linares You came to the hospital due to sudden onset transient numbness and weakness. You were evaluated and noted to have a transient ischemic attack. Aspirin was added to your home Plavix and atorvastatin. You need to be on aspirin and plavix for next 3 weeks after which aspirin may be continued and plavix stopped. Please follow up with neurology about this Evaluation also showed narrowing of your left carotid artery. You were evaluated by vascular surgeon and neurology. It is very important that you follow-up with vascular surgeon outpatient. Please ensure follow-up with neurology in 3 to 4 weeks. Please follow-up with your primary doctor about getting a Zio patch testing done. It was a pleasure taking care of you Pending Studies at Discharge: No Stand-Alone Forms: Medications to Prevent Stroke, My Alekto, Smoking Cessation Medications and DC Order Prescriptions: New aspirin 81 mg tablet,delayed release (DR/EC) 81 mg PO DAILY Qty: 30 RF: 0 Continued atorvastatin [Lipitor] 40 mg tablet 40 mg PO DAILY RF: 0 hydralazine 25 mg tablet 25 mg PO BID RF: 0 clopidogrel [Plavix] 75 mg tablet 75 mg PO DAILY RF: 0 montelukast [Singulair] 10 mg tablet 10 mg PO HS RF: 0 losartan [Cozaar] 100 mg tablet 100 mg PO DAILY RF: 0 Trelegy Ellipta 100-62.5-25 mcg blister with device 1 ea INHALATION DAILY RF: 0 multivitamin Tablet 1 tab PO DAILY RF: 0 albuterol sulfate 2.5 mg /3 mL (0.083 %) solution for nebulization 2.5 mg inhalation Q4 PRN (Reason: Shortness Of Breath Or Wheezing) RF: 0 amlodipine [Norvasc] 10 mg tablet 10 mg PO DAILY RF: 0 albuterol sulfate 90 mcg/actuation HFA aerosol inhaler 2 puff INHALATION Q4 PRN (Reason: Shortness Of Breath Or Wheezing) RF: 0 omega 7-odr-alh-fish oil [Fish Oil] 1,000 mg (120 mg-180 mg) Capsule 1 cap PO BID RF: 0 gabapentin 100 mg capsule 100 mg PO TID PRN (Reason: cramping) RF: 0 furosemide 40 mg tablet 40 mg PO DAILY RF: 0 Discharge Orders: Discharge Order (Routine); Ordered 03/11/21 Ordered By: Dary Bravo Admission Data Admit Date/Time: 03/09/21 21:35 Attending Provider: Dary Bravo I. Admit Provider: Yonathan Yi Primary Care Provider: Naida Goddard Other Providers: Yonathan Yi ; Cammy Eddy ; Leif Howell Kathleen ; Ishan Khanna ; Pancho Whalen Other Interventions: Discharge Summary Assessment (RN) Last Done: 03/11/21 12:01
--- NOTE | 2021-03-11 12:02 | Pharmacy Report ---
Pharmacist Stroke Counseling - Date of Service March 11, 2021 - Scope: Pharmacy has been consulted to provide medication discharge counseling for this patient admitted with transient ischemic attack as per the Pharmacist Discharge Counseling for Stroke Patients Protocol. - Medications on Discharge: Home Medications Medication Instructions Recorded Confirmed Trelegy Ellipta 1 ea INHALATION DAILY 09/18/19 03/09/21 albuterol sulfate 2 puff INHALATION Q4 PRN 09/18/19 03/09/21 albuterol sulfate 2.5 mg INHALATION Q4 PRN 09/18/19 03/09/21 amlodipine [Norvasc] 10 mg PO DAILY 09/18/19 03/09/21 atorvastatin [Lipitor] 40 mg PO DAILY 09/18/19 03/09/21 clopidogrel [Plavix] 75 mg PO DAILY 09/18/19 03/09/21 hydralazine 25 mg PO BID 09/18/19 03/09/21 losartan [Cozaar] 100 mg PO DAILY 09/18/19 03/09/21 montelukast [Singulair] 10 mg PO HS 09/18/19 03/09/21 multivitamin 1 tab PO DAILY 09/18/19 03/09/21 omega 7-qrt-hnj-fish oil [Fish Oil] 1 cap PO BID 09/18/19 03/09/21 furosemide 40 mg PO DAILY 03/09/21 03/09/21 gabapentin 100 mg PO TID PRN 03/09/21 03/09/21 New Rx's Medication Instructions Recorded aspirin 81 mg PO DAILY #30 tab 03/11/21 - Action: The above medications, specifically ones for stroke treatment/prophylaxis, have been reviewed in detail with the patient and/or patient insurance claim representative(s) prior to discharge. This includes indication, common adverse reactions, drug interactions, and medication administration. Medication counseling has been employed using the teach-back method to ensure understanding. - Outcome: The patient and/or patient insurance claim representative(s) have demonstrated understanding of the medications. Additional comments: - Patient is very knowledgeable about her medication regimen and manages her own medications at home - Discussed Plavix/aspirin overlap for 3 weeks (last day on 03/31/21) and then aspirin monotherapy thereafter - No obvious barriers to medication compliance identified Thank you for allowing pharmacy to be involved in the care of this patient. Please call [phone] with any additional questions
== END 2021-03-11 12:29 | disposition home or self-care (01) ==
LOC: 2S 16:44 → ED 16:44 → 2S 03-10 00:38

== ENCOUNTER 2021-04-06 08:48 | Inpatient (IN) ==
--- NOTE | 2021-03-29 16:04 | Anesthesiology Consultation ---
Date of Service March 29, 2021 Assessment & Plan (1) Encounter for pre-operative examination: COVID screening: Per assessment on 03/24: Travel screen negative, no known COVID- 19 positive contacts or current COVID-19 related symptoms. Patient vaccinated. Surgeon arranging preop COVID testing. Awaiting results. Chart Review Chart Review: Acceptable Risk for Surgery (pending evaluation AM DOS) and Patient NOT seen in Pre Admission Testing History Surgery Operation Date: 04/06/21 07:30 Proposed Procedures p Left Carotid Endarterectomy - Pancho Whalen MD Height/Weight Height: 5 ft 4 in Weight: 82.1 kg Allergies Allergy/AdvReac Type Severity Reaction Status Date / Time adhesive Allergy Mild HIVES Verified 03/24/21 15:33 No Known Drug Allergies Allergy Unknown . Verified 03/24/21 15:33 Medications Home Medications Medication Instructions Recorded Confirmed Last Taken albuterol sulfate 2 puff INHALATION Q4 PRN 09/18/19 03/24/21 Unknown albuterol sulfate 2.5 mg INHALATION Q4 PRN 09/18/19 03/24/21 Unknown amlodipine [Norvasc] 10 mg PO QAM 09/18/19 03/24/21 09/18/19 atorvastatin [Lipitor] 40 mg PO QAM 09/18/19 03/24/21 09/18/19 clopidogrel [Plavix] 75 mg PO QAM 09/18/19 03/24/21 09/18/19 hydralazine 25 mg PO BID 09/18/19 03/24/21 09/18/19 losartan [Cozaar] 100 mg PO QAM 09/18/19 03/24/21 09/18/19 montelukast [Singulair] 10 mg PO QAM 09/18/19 03/24/21 09/17/19 multivitamin 1 tab PO QAM 09/18/19 03/24/21 Unknown omega 5-dsf-zte-fish oil [Fish Oil] 1 cap PO BID 09/18/19 03/24/21 Unknown furosemide 40 mg PO QAM 03/09/21 03/24/21 Unknown aspirin 81 mg PO QAM 03/24/21 03/24/21 Unknown naproxen sodium [Aleve] 220 mg PO BID PRN 03/24/21 03/24/21 Unknown Past Medical History Medical History (Updated 03/29/21 @ 15:57 by Corrina Hood) Aortic stenosis Mild to moderate aortic stenosis per 03/10/2021 echo Carotid artery stenosis s/p right carotid endarterectomy, now scheduled for upcoming left Chronic anemia chronic, baseline hgb 10-11 range per chart review Chronic diastolic heart failure COPD (chronic obstructive pulmonary disease) Depression GERD (gastroesophageal reflux disease) Hyperlipidemia Hypertension Lymphoma Myocardial Infarction Several years ago Nocturnal hypoxemia Non-Hodgkin lymphoma ISELA (obstructive sleep apnea) CPAP Prediabetes Thyroid nodule Under surveillance TIA (transient ischemic attack) 10 years ago + 03/11/21 Past Family History Family History Other Stroke Past Surgical History Surgical History (Updated 03/29/21 @ 15:57 by Corrina Hood) H/O carotid endarterectomy Right History of colonoscopy 2020 History of esophagogastroduodenoscopy (EGD) History of hysterectomy History of left hip replacement Social History Smoking Status: Former smoker Do You Dip or Chew Tobacco: No Smoking End Date: QUIT 2006 Hx Alcohol Use: Yes Alcohol type: wine alcohol intake frequency: a few times a month Hx Substance Use: Yes substance use type: prescription drug Lab Results Anesthesia Preop Results Results Anesthesia Widget: WBC 5.95 K/uL (4.8-10.8) 03/11/21 Hgb 10.8 g/dL (12.0-16.0) L 03/11/21 Hct 32.7 % (37-47) L 03/11/21 Plt 311 K/uL (130-400) 03/11/21 Na 140 mmol/L (136-145) 03/11/21 K 3.7 mmol/L (3.5-5.1) 03/11/21 Cl 111 mmol/L (98-107) H 03/11/21 CO2 23 mmol/L (21-32) 03/11/21 BUN 15 mg/dl (7-18) 03/11/21 Creat 0.56 mg/dl (0.6-1.2) L 03/11/21 Glucose Level 94 mg/dl (70-99) 03/11/21 PT 10.3 Seconds (9.0-12.0) 03/09/21 PTT 20.9 Seconds (21.0-31.0) L 03/09/21 INR 1.0 (0.9-1.1) 03/09/21 HA1c 5.5 % (4.5-5.6) 03/10/21 COVID-19 PCR NEGATIVE (Negative) 03/09/21 Blood Type A Positive 03/09/21 Antibody Screen NEGATIVE 03/09/21 Testing Electrocardiogram Date: 03/09/21 Findings: + NSR @ (79) Chest X-Ray Date: 03/09/21 FINDINGS: Cardiac silhouette is upper limits of normal in size. Bilateral hilar prominence may represent pulmonary artery hypertension. Emphysema with interstitial coarsening, likely chronic. No pneumothorax, pleural effusion or overt pulmonary edema. Degenerative changes of the shoulders and spine. Right shoulder rotator cuff calcific tendinosis. IMPRESSION: Emphysema with interstitial coarsening, possibly on a chronic basis. Echocardiogram Date: 03/10/21 EF 60 to 65%. Moderate concentric LVH. Mild to moderate RVH. Moderate LAD. Mild to moderate aortic stenosis. Moderate mitral annular calcification. Mild MR. PASP less than 36 mmHg. Other Testing Neck CTA (03/09/21): Extensive atherosclerotic plaque of the left carotid bulb and proximal left internal carotid artery results in approximately 80% luminal narrowing. Prior right-sided carotid endarterectomy. Otherwise unremarkable CTA of the head and neck. Brain MRI (03/10/21): No acute intracranial findings. No intracranial mass or pathologic enhancement. White matter T2 hyperintense foci suggest small vessel disease. A few old small infarcts.
--- NOTE | 2021-04-06 07:11 | History & Physical Report ---
Date of Service April 06, 2021 History of Present Illness Primary Care Provider: Naida Alfred MD March 10, 2021 Assessment & Plan (1) Asymptomatic carotid artery stenosis: On CT angio this patient has a proximal 80% narrowing of her left internal carotid artery. She is asymptomatic from this lesion at this time. Her left- sided weakness does not correlate to the left carotid stenosis. Right carotid endarterectomy site is widely patent with no evidence of restenosis seen. I would recommend a left carotid endarterectomy for the asymptomatic severe stenosis of the left internal carotid artery. This will be scheduled in approximately 2 to 3 weeks. We will see her in the office in 1 week for follow- up as an outpatient. I will continue her statin aspirin Plavix at this point. Thank you very much for letting us participate in the care of this patient. History of Present Illness Reason for Consultation: Left internal carotid artery stenosis Attending Physician: Dary Bravo MD History of Present Illness This is an 80-year-old female who has multiple medical problems. She came to the emergency room after having an episode of left-sided numbness. This lasted half hour and then totally resolved. She has not had any previous episodes of this problem. She did have TIAs in the past and underwent a right carotid endarterectomy for her right carotid stenosis. She had no further problems after the endarterectomy. She denies any claudication. She denies any significant weight loss. She denies any neurological deficit at this point. Allergies Allergy/AdvReac Type Severity Reaction Status Date / Time adhesive Allergy Mild HIVES Verified 03/09/21 19:37 No Known Drug Allergies Allergy Unknown . Verified 03/09/21 19:37 Home Medications Medication Instructions Recorded Confirmed Type Greg Ellipta 1 ea INHALATION DAILY 09/18/19 03/09/21 History albuterol sulfate 2 puff INHALATION Q4 PRN 09/18/19 03/09/21 History albuterol sulfate 2.5 mg INHALATION Q4 PRN 09/18/19 03/09/21 History amlodipine [Norvasc] 10 mg PO DAILY 09/18/19 03/09/21 History atorvastatin [Lipitor] 40 mg PO DAILY 09/18/19 03/09/21 History clopidogrel [Plavix] 75 mg PO DAILY 09/18/19 03/09/21 History hydralazine 25 mg PO BID 09/18/19 03/09/21 History losartan [Cozaar] 100 mg PO DAILY 09/18/19 03/09/21 History montelukast [Singulair] 10 mg PO HS 09/18/19 03/09/21 History multivitamin 1 tab PO DAILY 09/18/19 03/09/21 History omega 6-ubl-pef-fish oil [Fish Oil] 1 cap PO BID 09/18/19 03/09/21 History furosemide 40 mg PO DAILY 03/09/21 03/09/21 History gabapentin 100 mg PO TID PRN 03/09/21 03/09/21 History Patient History Medical History (Updated 03/10/21 @ 14:51 by Pancho Whalen MD) Chronic diastolic heart failure COPD (chronic obstructive pulmonary disease) Depression GERD (gastroesophageal reflux disease) Hyperlipidemia Hypertension Lymphoma Nocturnal hypoxemia Non-Hodgkin lymphoma ISELA (obstructive sleep apnea) Prediabetes TIA (transient ischemic attack) Surgical History H/O carotid endarterectomy History of hysterectomy History of left hip replacement Family History Other Stroke Social History Smoking Status: Never smoker Hx Alcohol Use: Yes Alcohol type: wine Hx Substance Use: No Preferred Language: Hungarian Communication Ability: Effective Stone Rubber Required: No Beliefs That Will Affect Care: None marital status: / Current Living Situation: Alone Current Living Situation Comment: [facility] APARTMENT Other Information That Helps Us Care for You: No Feels Safe at Home: Yes Safety Concerns: Feels Safe At This Time Assistive Devices: None Review of Systems Review of Systems: All systems reviewed & are unremarkable except as noted in HPI & below Physical Exam Constitutional: well developed and well nourished; no acute distress Neck: trachea midline Respiratory: normal respiratory effort; no respiratory distress Auscultation: lungs clear to auscultation bilaterally Cardiovascular: Rate/Rhythm: regular rate and regular rhythm Vessels: + carotid bruit (Mild on both sides.), femoral pulses present and radial pulses present Extremities: normal capillary refill Gastrointestinal (Abdomen): Inspection/Auscultation: abdomen normal to inspection; abdomen not distended Percussion/Palpation: abdomen soft; abdomen nontender and no pulsatile mass Musculoskeletal: no cyanosis or clubbing, extremities motor strength 5/5 Skin: no rashes, warm and dry Neurologic: CN's II-XI intact bilaterally and moves all extremities Psychiatric: Orientation: alert and oriented x 3 Results & Data ([facility]) Vital Signs (Past 12 Hours) Vital Signs Temp Pulse Pulse Resp BP Pulse Ox 03/10/21 12:22 36.6 C 73 20 136/61 92 03/10/21 11:04 68 150/68 H 03/10/21 08:38 71 03/10/21 08:14 37.1 C 72 20 146/68 H 91 03/10/21 03:48 72 18 95 03/10/21 03:00 36.6 C 79 18 161/67 H 92 Signed By:<Electronically signed by Pancho Whalen MD>03/10/21 1456 Created: 03/10/21 1447 Allergies Allergy/AdvReac Type Severity Reaction Status Date / Time adhesive Allergy Mild HIVES Verified 03/24/21 15:33 No Known Drug Allergies Allergy Unknown . Verified 03/24/21 15:33 Home Medications Medication Instructions Recorded Confirmed Type albuterol sulfate 2 puff INHALATION Q4 PRN 09/18/19 03/24/21 History albuterol sulfate 2.5 mg INHALATION Q4 PRN 09/18/19 03/24/21 History amlodipine [Norvasc] 10 mg PO QAM 09/18/19 03/24/21 History atorvastatin [Lipitor] 40 mg PO QAM 09/18/19 03/24/21 History clopidogrel [Plavix] 75 mg PO QAM 09/18/19 03/24/21 History hydralazine 25 mg PO BID 09/18/19 03/24/21 History losartan [Cozaar] 100 mg PO QAM 09/18/19 03/24/21 History montelukast [Singulair] 10 mg PO QAM 09/18/19 03/24/21 History multivitamin 1 tab PO QAM 09/18/19 03/24/21 History omega 2-mzw-oaa-fish oil [Fish Oil] 1 cap PO BID 09/18/19 03/24/21 History furosemide 40 mg PO QAM 03/09/21 03/24/21 History aspirin 81 mg PO QAM 03/24/21 03/24/21 History naproxen sodium [Aleve] 220 mg PO BID PRN 03/24/21 03/24/21 History Past Med/Surg History Medical History (Updated 03/29/21 @ 15:57 by Corrina Hood) Aortic stenosis Mild to moderate aortic stenosis per 03/10/2021 echo Carotid artery stenosis s/p right carotid endarterectomy, now scheduled for upcoming left Chronic anemia chronic, baseline hgb 10-11 range per chart review Chronic diastolic heart failure COPD (chronic obstructive pulmonary disease) Depression GERD (gastroesophageal reflux disease) Hyperlipidemia Hypertension Lymphoma Myocardial Infarction Several years ago Nocturnal hypoxemia Non-Hodgkin lymphoma ISELA (obstructive sleep apnea) CPAP Prediabetes Thyroid nodule Under surveillance TIA (transient ischemic attack) 10 years ago + 03/11/21 Surgical History (Updated 03/29/21 @ 15:57 by Corrina Hood) H/O carotid endarterectomy Right History of colonoscopy 2020 History of esophagogastroduodenoscopy (EGD) History of hysterectomy History of left hip replacement Family History Other Stroke Social History (Updated 03/24/21 @ 16:05 by Lizbeth Monzon RN) Smoking Status: Former smoker Second Hand Exposure: No; Hx Alcohol Use: Yes Alcohol type: wine Hx Substance Use: Yes Preferred Language: Hungarian Communication Ability: Effective Stone Rubber Required: No Beliefs That Will Affect Care: None marital status: / Current Living Situation: Alone Current Living Situation Comment: [facility] APARTMENT current occupational status: retired Feels Safe at Home: Yes Assistive Devices: CPAP, Denture - Upper, Denture - Lower, Glasses, Hearing Aid - Bilateral and Walker
[~2021-04-06 08:48] MED LIST changes: -AMLO-114 PO; -APR25 PO; -ATOR-24 PO; -BENZ100C84 PO; -CLOP1TAB15 PO; -FURO-85 PO; +LACTATED RINGER'S 1,000 ML IV SCH; -LIDOCAINE HCL 2% 2 ML VIAL (20MG/ML) ONE; -LOSA1TAB38 PO; -MOME200A INH; -MONT1TAB3 PO; -OMEG10007 PO; -PRMVC PV; -PROPOFOL IV EMULSION 10 MG/ML 20 ML VIAL IV ONE; -PRT/20 PO; -PRVIN525X INH; -SERT25TA PO; -SODIUM CHLORIDE 0.9% 500ML 500 ML IV ONE; -SPRIN/30 INH; -TRAZ50TA35 PO; -VNTHFA/IN INH; -ZNTT/150 PO; +ceFAZolin 2000MG 2,000 MG/15 ML SYR IV SCH
--- NOTE | 2021-04-06 12:07 | History & Physical Bridge Note ---
Date of Service April 06, 2021 History & Physical Bridge Note I have examined the patient, reviewed the History & Physical and in the interval since the performance of the History & Physical I have noted the following changes of clinical significance: no changes noted
[2021-04-06] MEDS ORDERED: LIDOCAINE 1% LOCAL 20 ML VIAL ONE (12:29)
[2021-04-06] MEDS ORDERED: HEPARIN (PORCINE) 1000 UNIT/ML 10 ML (CATH LAB USE ONLY) ONE (12:29)
[2021-04-06] MEDS ORDERED: GELATIN SPONGE SZ 100 ONE (12:29)
[2021-04-06] MEDS ORDERED: THROMBIN FOR SOLN 20000 UNIT KIT ONE (12:30)
[2021-04-06] MEDS ORDERED: ROCURONIUM BROMIDE 10 MG/ML 5 ML VIAL IV ONE ×3 (12:53→15:03)
[2021-04-06] MEDS ORDERED: LIDOCAINE 2% 2 ML VIAL/AMP(20MG/ML) INFIL ONE (12:53)
[2021-04-06] MEDS ORDERED: fentaNYL citrate 100 MCG/2 ML VIAL ONE ×2 (12:54→14:34)
[2021-04-06] MEDS ORDERED: MIDAZOLAM HCL 1 MG/ML 2ML VIAL ONE (12:54)
[2021-04-06] MEDS ORDERED: SUGAMMADEX SODIUM 200 MG/2 ML VIAL IV ONE (15:01)
[2021-04-06] MEDS ORDERED: PHENYLEPHRINE HCL 10 MG/ML VIAL ONE (15:02)
[2021-04-06] MEDS ORDERED: ONDANSETRON INJ 2 MG/ML 2 ML VIAL ONE ×2 (15:02→16:42)
[2021-04-06] MEDS ORDERED: GLYCOPYRROLATE 0.2 MG/ML VIAL ONE (15:02)
[2021-04-06] MEDS ORDERED: DEXAMETHASONE SOD INJ 4 MG/ML VIAL ONE (15:02)
[2021-04-06] MEDS: BUPIVACAINE/EPINEPHRINE 0.5% MPF 1:200,000 30 ML VIAL ONE ×2 (15:56→16:08)
--- NOTE | 2021-04-06 16:00 | Operative Report ---
Post Operative Report Pre & Post Diagnosis Operation Date: 04/06/21 10:20 Pre-Op Diagnosis: Left Carotid Stenosis Post-Op Diagnosis: Left Carotid Stenosis I identified the patient and participated in the time-out.: Yes Procedure Operation Date: 04/06/21 10:20 Actual Procedures p Left Carotid Endarterectomy(Left) - Pancho Whalen MD Surgeon Pancho Whalen MD Assistant Plant Manager Holger Ramos MD, Cathi Tlaavera PA-C Estimated Blood Loss 150 Findings Consistent with Post-Op Diagnosis Specimens Plaque Description of Procedure The patient was taken to the operating room and placed in supine position. After general anesthesia was accomplished the left-side of the neck was prepped and draped in a sterile manner. A longitudinal neck incision was then made coursing along the medial border of the sternocleidomastoid muscle. The incision was taken down through the platysmal layer. The facial vein was identified, ligated, and divided. The common carotid artery was then seen. It was dissected free down to the omohyoid muscle. The dissection was carried upward until the external carotid artery and superior thyroid artery was seen. The superior thyroid artery was slung with a 2-0 silk suture. The external carotid was slung with a red rubber vessel loop. Next the dissection was carried up along the internal carotid artery. This was carried upward to beyond the area of narrowing. The hypoglossal nerve was seen and preserved. The patient was heparinized. After adequate heparinization was accomplished, the in ternal, external, and common carotid arteries were clamped. A longitudinal arteriotomy was started on the common carotid artery and extended upward along the internal carotid artery to a point beyond the area of narrowing. There was calcified plaque of the internal carotid artery origin causing approximately >90% narrowing. A external sundt shunt was then placed in the internal, followed by the common carotid artery and held in place with Hugo clamps. There was good back bleeding seen from the internal carotid artery. The endarterectomy was then started in the appropriate plane on the common carotid artery. This was carried upward and the external carotid was everted and endarterectomized. The endarterectomy was then carried up along the internal carotid artery till a nice feathering breakoff point was accomplished beyond the end of the plaque. The endarterectomy was then carried down further on the common carotid artery. At end of the arteriotomy, the plaque was then transec nichole. Under loop magnification, all loose debris and flaps werer removed. There is no distal flap seen at the end of the endarterectomy site. Due to kinking of the internal carotid artery, the internal carotid was plicated postioerly to straighten the artery. The arteriotomy was then closed using a bovine patch using 6-0 prolene suture. This was done in the usual vascular fashion. Prior to completing the closure, the doppler shunt was removed and the internal and common carotid arteries were reclamped. Backbleeding and forward bleeding was allowed to occur. The flow surface was irrigated with heparinized saline. The final few sutures were then placed and securely tied. Clamps were then removed off the external and common carotid arteries. The clamp was then removed the internal carotid artery. Good distal flow was seen. Adequate hemostasis was accomplished of the patch. The wound was inspected and adequate hemostasis was obtained. The wound was irrigated with antibiotic solution. It was then closed with a running 3-0 Vicryl suture for the platysmal layer and a 4-0 subcuticular Vicryl suture for the skin edges. Dermabond was used for dressing. The patient left the operating room in satisfactory condition and tolerated the procedure well. Dr. Whalen was present and scrubbed for the entire procedure. Cathi Talavera Pac assisted and was necessary for prepping, draping, retraction, wound closure defects, subQ and skin closure and was necessary for the case. I attest to the content of the Intraoperative Record and any orders documented therein. Any exceptions are noted below.
[2021-04-06] MEDS ORDERED: ESMOLOL HCL INJ 10 MG/ML 10ML VIAL IV ONE ×2 (16:08→16:33)
--- NOTE | 2021-04-06 16:12 | Post Operative Brief Note ---
Immediate Post Op Note v1 Date of Surgery April 06, 2021 Pre & Post Diagnosis Operation Date: 04/06/21 10:20 Pre-Op Diagnosis: Left Carotid Stenosis Post-Op Diagnosis: Left Carotid Stenosis I identified the patient and participated in the time-out.: Yes Procedure Operation Date: 04/06/21 10:20 Actual Procedures p Left Carotid Endarterectomy(Left) - Pancho Whalen MD Surgeon Pancho Whalen MD Smocking Machine Operator Holger Ramos MD, Cathi Talavera PA-C Estimated Blood Loss 150 Findings Consistent with Post-Op Diagnosis Anesthesia Type General Complications none Disposition Accompanied Patient To Recovery: No Disposition: Recovery Room
[2021-04-06] MEDS ORDERED: ONDANSETRON INJ 2 MG/ML 2 ML VIAL IV PRN (16:46)
[2021-04-06] MEDS ORDERED: fentaNYL citrate 100 MCG/2 ML VIAL IV PRN (16:46)
[2021-04-06] MEDS ORDERED: ePHEDrine sulfate 50 MG/ML AMP IV PRN (16:46)
[2021-04-06] MEDS ORDERED: ATROPINE SULFATE 0.1 MG/ML 10ML SYR IV PRN (16:46)
[2021-04-06] MEDS ORDERED: CISATRACURIUM BESYLATE IV SOLN 2 MG/ML 10 ML VIAL IV ONE (16:46)
[2021-04-06] MEDS ORDERED: PROMETHAZINE HCL 6.25 MG in SODIUM CHLORIDE 0.9% 50 ML IV ONE (17:00)
[2021-04-06] MEDS ORDERED: oxyCODONE/ACETAMINOPHEN 5mg/325mg TAB PO PRN (17:37)
[2021-04-06] MEDS ORDERED: ALBUTEROL HFA 8 GM INHALER INH PRN (17:37)
[2021-04-06] MEDS ORDERED: MoRPHine SULFATE 4 MG/ML 1 ML CARP\\VIAL IV PRN (17:37)
[2021-04-06] MEDS ORDERED: ALBUTEROL 0.083% NEBU SOLN 3 ML VIAL INH PRN (17:37)
[2021-04-06] MEDS ORDERED: NAPROXEN 250 MG TAB PO PRN (17:56)
--- NOTE | 2021-04-06 20:18 | Critical Care Consultation ---
Date of Consultation April 06, 2021 Assessment & Plan (1) Asymptomatic carotid artery stenosis: Impression: 80-year-old female presents to the ICU following a scheduled left endarterectomy for asymptomatic carotid artery stenosis of the left ICA. Neuro - Left ICA stenosisstatus post left endarterectomy POD 1 -Surgical incision appears well approximated without edema, monitor in ICU overnight -A-line for close hemodynamic monitoring, will avoid hypotension keep blood pressure within acceptable range -Continue ASA, Plavix, statin Cardiac - HTNmonitor closely overnight as patient has just had left endarterectomy. Home med regimen restarted -PRN antihypertensives if needed -Diastolic heart failure/aortic stenosisecho from 03/21 with EF 60 to 65% with moderate concentric left ventricular hypertrophy. Mild to moderate valvular aortic stenosis. Mild mitral regurg -No issue at this time -Continue home med regimen including Lasix -Monitor Respiratory - COPDno issues at this time. Lungs clear to auscultation. Maintaining oxygen saturation on room air -Nebs as needed -Monitor continuous pulse ox GI - Heart healthy diet RENAL/LYTES - No history of renal disease. Creatinine within normal limits on previous admission. Taking p.o. without issue - Strict I's and O ENDO - History of prediabetes, euglycemic at this time ICU hyperglycemic protocol HEME - H&H stable, no signs of bleeding at this time. Follow-up CBC in a.m. ID - Empiric cefazolin x2 doses LINES/IV ACCESS - Peripheral IVs, A-line DVT PROPHYLAXIS - SCDs, no anticoagulation following surgery at this time Thank you for allowing us to participate in the care of this patient. Please refer to my attending physician's documentation for any further recommendations. (2) COPD (chronic obstructive pulmonary disease): (3) ISELA (obstructive sleep apnea): (4) GERD (gastroesophageal reflux disease): (5) Prediabetes: (6) Depression: (7) Hyperlipidemia: (8) Hypertension: (9) Chronic diastolic heart failure: History of Present Illness Attending Physician: Pancho Whalen MD History of Present Illness Patient is a 80-year-old female with past medical history including COPD, diastolic heart failure, GERD, HLD, HTN, non-Hodgkin's lymphoma, ISELA, and TIA who had initially come to the emergency department on March 10 with left-sided numbness which resolved within 1/2-hour. She has had TIAs in the past and right carotid endarterectomy for her right carotid stenosis. Patient was noted to have 80% narrowing of her left ICA on CT angio which did not correlate with left carotid stenosis and right carotid endarterectomy was widely patent. Patient was taken for a scheduled left carotid endarterectomy for asymptomatic severe stenosis of the left ICA earlier today. She now presents to the ICU for close monitoring following left endarterectomy. On examination, patient is alert and oriented and appears comfortable. She is maintaining oxygen saturation on room air and is hemodynamically stable. Arterial line in place and blood pressure within acceptable range. She is taking p.o. without issue and just finished eating dinner. She denies any headache, dizziness, neurological symptoms, change in vision, weakness or numbness, sore throat, cough, shortness of breath, chest pain, palpitations, abdominal pain, nausea or vomiting or diarrhea. Her surgical incision is well approximated without significant swelling or edema. Patient to remain in ICU for further monitoring overnight. Allergies Allergy/AdvReac Type Severity Reaction Status Date / Time adhesive Allergy Mild HIVES Verified 04/06/21 09:11 No Known Drug Allergies Allergy Unknown . Verified 04/06/21 09:11 Home Medications Medication Instructions Recorded Confirmed Type albuterol sulfate 2 puff INHALATION Q4 PRN 09/18/19 04/06/21 History albuterol sulfate 2.5 mg INHALATION Q4 PRN 09/18/19 04/06/21 History amlodipine [Norvasc] 10 mg PO QAM 09/18/19 04/06/21 History atorvastatin [Lipitor] 40 mg PO QAM 09/18/19 04/06/21 History clopidogrel [Plavix] 75 mg PO QAM 09/18/19 04/06/21 History hydralazine 25 mg PO BID 09/18/19 04/06/21 History losartan [Cozaar] 100 mg PO QAM 09/18/19 04/06/21 History montelukast [Singulair] 10 mg PO QAM 09/18/19 04/06/21 History multivitamin 1 tab PO QAM 09/18/19 04/06/21 History omega 5-wtd-qom-fish oil [Fish Oil] 1 cap PO BID 09/18/19 04/06/21 History furosemide 40 mg PO QAM 03/09/21 04/06/21 History aspirin 81 mg PO QAM 03/24/21 04/06/21 History naproxen sodium [Aleve] 220 mg PO BID PRN 03/24/21 04/06/21 History Patient History Medical History Aortic stenosis Mild to moderate aortic stenosis per 03/10/2021 echo Carotid artery stenosis s/p right carotid endarterectomy, now scheduled for upcoming left Chronic anemia chronic, baseline hgb 10-11 range per chart review Chronic diastolic heart failure COPD (chronic obstructive pulmonary disease) Depression GERD (gastroesophageal reflux disease) Hyperlipidemia Hypertension Lymphoma Myocardial Infarction Several years ago Nocturnal hypoxemia Non-Hodgkin lymphoma ISELA (obstructive sleep apnea) CPAP Prediabetes Thyroid nodule Under surveillance TIA (transient ischemic attack) 10 years ago + 03/11/21 Surgical History H/O carotid endarterectomy Right History of colonoscopy 2020 History of esophagogastroduodenoscopy (EGD) History of hysterectomy History of left hip replacement Family History Other Stroke Social History Smoking Status: Never smoker Smoking End Date: QUIT 2006; Second Hand Exposure: No; Do You Dip or Chew Tobacco: No; Hx Alcohol Use: Yes Alcohol type: wine Hx Substance Use: No Preferred Language: Danish Communication Ability: Effective Instrumental Musician Required: No Beliefs That Will Affect Care: None marital status: / Current Living Situation: Alone Current Living Situation Comment: [facility] AP[facility] current occupational status: retired Other Information That Helps Us Care for You: No Feels Safe at Home: Yes Safety Concerns: Feels Safe At This Time Assistive Devices: CPAP Assistive Devices Comment: JEFF PRN IN HER APARTMENT Review of Systems Review of Systems: All systems reviewed & are unremarkable except as noted in HPI & below Physical Exam Constitutional: WD/WN, vitals as above Eyes: PERRL, conjunctivae normal, anicteric sclerae ENMT: external ear and nose normal, oropharynx normal Neck: trachea midline, no thyromegaly Respiratory: normal respiratory effort, lungs clear to auscultation Cardiovascular: RRR, no murmur, no edema Heart Sounds: normal S1 and normal S2 Vessels: no JVD Extremities: normal capillary refill; no edema Gastrointestinal (Abdomen): normal bowel sounds, soft, nontender, no hepatosplenomegaly Musculoskeletal: no cyanosis or clubbing, extremities motor strength 5/5 Skin: no rashes, warm and dry Neurologic: PERRL, EOMI, accommodation nl, no face palsy, no dysarthria Psychiatric: A+Ox3, euthymic affect Results & Data Results & Data ([facility]) Vital Signs (Past 12 Hours) Vital Signs Temp Pulse Pulse Resp BP BP Pulse Ox 04/06/21 18:14 74 15 139/52 L 92 04/06/21 17:59 82 25 H 122/52 L 93 04/06/21 17:37 36.7 C 04/06/21 17:28 83 22 154/57 H 95 04/06/21 17:20 36.4 C L 04/06/21 17:15 79 18 154/61 H 97 04/06/21 17:05 83 18 152/46 H 96 04/06/21 16:55 93 H 18 141/91 H 96 04/06/21 16:45 80 18 153/65 H 96 04/06/21 16:35 36.4 C L 82 18 162/79 H 95 04/06/21 09:21 36.8 C 77 18 144/71 H 97 Coding Level of Care Code 25247 Inpt Consult Level 3 Diagnoses Asymptomatic carotid artery stenosis I65.29 COPD (chronic obstructive pulmonary disease) J44.9 ISELA (obstructive sleep apnea) G47.33 GERD (gastroesophageal reflux disease) K21.9 Prediabetes R73.03 Depression F32.9 Hyperlipidemia E78.5 Hypertension I10 Chronic diastolic heart failure I50.32
[2021-04-06] MEDS: hydrALAZINE HCL 25 MG TAB PO SCH (21:02)
[2021-04-06] MEDS: OMEGA-3 (PURIFIED FISH OIL) 1 GM CAP PO SCH (21:03)
[2021-04-06] MEDS: ceFAZolin 2000MG 2,000 MG/15 ML SYR IV SCH (22:46)
[2021-04-07 05:45] LABS: Basophils # (auto) 0.01 K/uL (0-0.2); Basophils % (auto) 0.1 %; Hematocrit (blood only) 26.6 % (37-47); Hemoglobin 8.2 g/dL (12.0-16.0); Immature Granulocytes # (auto) 0.02 K/uL (0.00-0.02); Immature Granulocytes % (auto) 0.2 %; Lymphocytes # (auto) 0.93 K/uL (1.2-3.4); Mean Corpuscular Hemoglobin 27.9 pg (25-34); Mean Corpuscular Hgb Conc 30.8 g/dL (32-36); Mean Corpuscular Volume 90.5 fL (80-100); Mean Platelet Volume 8.8 fL (7.4-10.4); Monocytes # (auto) 0.68 K/uL (0.11-0.59); Monocytes % (auto) 7.3 %; Neutrophils # (auto) 7.65 K/uL (1.4-6.5); Neutrophils % (auto) 82.4 %; Platelet Count 299 K/uL (130-400); RDW Standard Deviation 47.1 fL (36.4-46.3); Red Blood Count 2.94 M/uL (4.2-5.4); White Blood Count 9.29 K/uL (4.8-10.8)
[2021-04-07] MEDS: ceFAZolin 2000MG 2,000 MG/15 ML SYR IV SCH (06:07)
[2021-04-07] MEDS: hydrALAZINE HCL 25 MG TAB PO SCH (08:01)
[2021-04-07] MEDS: OMEGA-3 (PURIFIED FISH OIL) 1 GM CAP PO SCH (08:01)
[2021-04-07] MEDS ORDERED: LOSARTAN POTASSIUM 50 MG TAB PO SCH (09:00)
[2021-04-07] MEDS ORDERED: ASPIRIN 81 MG ECTAB PO SCH (09:00)
[2021-04-07] MEDS ORDERED: CLOPIDOGREL BISULFATE 75 MG TAB PO SCH (09:00)
[2021-04-07] MEDS ORDERED: FUROSEMIDE 40 MG TAB PO SCH (09:00)
[2021-04-07] MEDS ORDERED: ATORVASTATIN 40 MG TAB PO SCH (09:00)
[2021-04-07] MEDS ORDERED: MULTIVITAMIN TAB PO SCH (09:00)
[2021-04-07] MEDS ORDERED: amLODIPine BESYLATE 5 MG TAB PO SCH (09:00)
[2021-04-07] MEDS ORDERED: MONTELUKAST SODIUM 10 MG TABLET PO SCH (09:00)
--- NOTE | 2021-04-07 10:06 | Critical Care Progress Note ---
Date of Service April 07, 2021 Assessment & Plan (1) S/P carotid endarterectomy: Impression: 80-year-old female presents to the ICU following a scheduled left endarterectomy for asymptomatic carotid artery stenosis of the left ICA. Neuro - Left ICA stenosisstatus post left endarterectomy 04/06/2021 -Surgical incision appears well approximated without edema, monitor in ICU overnight -A-line for close hemodynamic monitoring, will avoid hypotension keep blood pressure within acceptable range -Continue ASA, Plavix, statin Cardiac - HTNmonitor closely overnight as patient has just had left endarterectomy. Home med regimen restarted -PRN antihypertensives if needed -Diastolic heart failure/aortic stenosisecho from 03/21 with EF 60 to 65% with moderate concentric left ventricular hypertrophy. Mild to moderate valvular aortic stenosis. Mild mitral regurg -No issue at this time -Continue home med regimen including Lasix -Monitor Respiratory - COPD -Will benefit from pulmonary present patient -Nebs as needed -Monitor continuous pulse ox GI - Heart healthy diet RENAL/LYTES - Monitor BUNs/creatinine - Strict I's and O ENDO - History of prediabetes, euglycemic at this time ICU hyperglycemic protocol HEME - Monitor H&H ID - Empiric cefazolin x2 doses --Prophylaxis VTE: None GI: None Lines: Radial line Diet: Cardiac Plan: In/out: +1920, urine output 150 mL Mild drop in hemoglobin. Repeat H&H today. Patient is hemodynamically stable with no residual deficits post surgery Plan would be to send the patient out of the ICU Please note the above document was generated using voice recognition software. It may contain grammatical, syntax or spelling errors.Any formal questions or concerns about the content, text or information contained within the body of this dictation should be directly addressed to the provider for clarification. (2) COPD (chronic obstructive pulmonary disease): (3) ISELA (obstructive sleep apnea): (4) GERD (gastroesophageal reflux disease): Admission and Anticipated Discharge Date Admission Date: April 06, 2021 Subjective Patient seen and examined at bedside. No acute distress, no adverse events overnight. Patient is postoperative day #1 Denies any chest pain, no shortness of breath, no headache, no nausea, no vomiting. No weakness. Has fluent speech. Review of Systems Review of Systems: All systems reviewed & are unremarkable except as noted in Subjective Physical Exam Physical Exam: Constitutional: No acute distress HEENT: EOMI, PERRLA, left-sided incision site clean Respiratory system: Decreased air entry bilaterally, no wheeze, no rhonchi, no c rackles CVS: S1-S2 positive, positive 3 out of 6 systolic murmur appreciated best at the aorta distant heart sounds Abdomen: Soft, nontender, nondistended, positive bowel sounds x4 Extremities: +2 pulses bilaterally radialis/ dorsalis pedis, no cyanosis, no edema, 5/5 strength bilateral upper and extra. Neuro: Awake alert oriented x3 Psych: Normal mood and affect G/U: No [place] Results & Data Results & Data ([facility]) Vital Signs (Past 12 Hours) Vital Signs Temp Pulse Resp BP Pulse Ox 04/07/21 08:50 72 17 96 04/07/21 08:40 74 13 97 04/07/21 08:30 86 21 96 04/07/21 08:20 85 17 97 04/07/21 08:10 89 24 96 04/07/21 08:00 91 H 21 93 04/07/21 07:50 99 H 18 92 04/07/21 07:40 86 23 94 04/07/21 07:30 95 H 21 95 04/07/21 06:29 66 18 135/35 L 100 04/07/21 05:29 96 H 23 137/55 L 96 04/07/21 04:29 86 23 118/50 L 94 04/07/21 03:29 79 28 H 142/52 H 95 04/07/21 02:29 80 17 142/50 H 93 04/07/21 01:29 79 18 137/44 L 94 04/07/21 00:29 36.6 C 78 17 135/50 L 92 04/07/21 00:00 90 04/06/21 23:29 91 H 18 138/52 L 95 04/06/21 22:29 72 19 139/58 L 95 04/07/21 11:07 Coding Level of Care Code 65876 Subseq Hosp Care Lvl 2 Diagnoses S/P carotid endarterectomy Z98.890 COPD (chronic obstructive pulmonary disease) J44.9 ISELA (obstructive sleep apnea) G47.33 GERD (gastroesophageal reflux disease) K21.9
[2021-04-07 11:21] LABS: Basophils # (auto) 0.03 K/uL (0-0.2); Basophils % (auto) 0.3 %; Eosinophils # (auto) 0.03 K/uL (0-0.5); Eosinophils % (auto) 0.3 %; Hematocrit (blood only) 28.2 % (37-47); Hemoglobin 8.9 g/dL (12.0-16.0); Immature Granulocytes # (auto) 0.02 K/uL (0.00-0.02); Immature Granulocytes % (auto) 0.2 %; Lymphocytes # (auto) 1.69 K/uL (1.2-3.4); Lymphocytes % (auto) 15.2 %; Mean Corpuscular Hemoglobin 28.1 pg (25-34); Mean Corpuscular Hgb Conc 31.6 g/dL (32-36); Mean Platelet Volume 8.5 fL (7.4-10.4); Monocytes % (auto) 9.9 %; Neutrophils # (auto) 8.28 K/uL (1.4-6.5); Neutrophils % (auto) 74.1 %; Platelet Count 289 K/uL (130-400); RDW Coefficient of Variation 14.1 % (11.5-14.5); RDW Standard Deviation 46.2 fL (36.4-46.3); Red Blood Count 3.17 M/uL (4.2-5.4); White Blood Count 11.15 K/uL (4.8-10.8)
--- NOTE | 2021-04-07 13:13 | Surgery Progress Note ---
Date of Service April 07, 2021 Assessment & Plan (1) S/P carotid endarterectomy: Patient is doing well after carotid enterectomy of the left carotid. She has no new neurological deficits. She will be discharged to self-care at home today. Admission and Anticipated Discharge Date Admission Date: April 06, 2021 Subjective Patient is postoperative day 1 after a left carotid enterectomy. She has no complaints. She denies any focal deficits. Physical Exam Constitutional: WD/WN, vitals as above Neck: trachea midline Cardiovascular: Rate/Rhythm: regular rate and regular rhythm Skin: + incision (Incision is dry and clean with no swelling seen.) Neurologic: CN's II-XI intact bilaterally and moves all extremities Psychiatric: Orientation: alert and oriented x 3 Results & Data ([facility]) Vital Signs (Past 12 Hours) Vital Signs Pulse Resp BP Pulse Ox 04/07/21 08:50 72 17 96 04/07/21 08:40 74 13 97 04/07/21 08:30 86 21 96 04/07/21 08:20 85 17 97 04/07/21 08:10 89 24 96 04/07/21 08:00 91 H 21 93 04/07/21 07:50 99 H 18 92 04/07/21 07:40 86 23 94 04/07/21 07:30 95 H 21 95 04/07/21 06:29 66 18 135/35 L 100 04/07/21 05:29 96 H 23 137/55 L 96 04/07/21 04:29 86 23 118/50 L 94 04/07/21 03:29 79 28 H 142/52 H 95 04/07/21 02:29 80 17 142/50 H 93 04/07/21 01:29 79 18 137/44 L 94
--- NOTE | 2021-04-08 13:13 | Anesthesiology Progress Note ---
Date of Service April 06, 2021 Anesthesia Post Procedure Vital Signs Vital Signs: Temp Pulse Resp BP Pulse Ox 04/07/21 13:33 36.6 C 79 17 154/61 H 96 Transfer of Care Handoff Completed per policy Notes Mental Status: alert / awake / arousable and participated in evaluation Patient Amnestic to Procedure: Yes Nausea / Vomiting: adequately controlled Pain: adequately controlled Airway Patency, RR, SpO2: stable & adequate BP & HR: stable & adequate Hydration State: stable & adequate Anesthetic Complications: no major complications apparent and Pt Satisfied with anesthetic care
--- NOTE | 2021-04-11 11:09 | Discharge Summary ---
Date of Service April 11, 2021 Admission HPI Per Admitting Provider March 10, 2021 Assessment & Plan (1) Asymptomatic carotid artery stenosis: On CT angio this patient has a proximal 80% narrowing of her left internal carotid artery. She is asymptomatic from this lesion at this time. Her left- sided weakness does not correlate to the left carotid stenosis. Right carotid endarterectomy site is widely patent with no evidence of restenosis seen. I would recommend a left carotid endarterectomy for the asymptomatic severe stenosis of the left internal carotid artery. This will be scheduled in approximately 2 to 3 weeks. We will see her in the office in 1 week for follow- up as an outpatient. I will continue her statin aspirin Plavix at this point. Thank you very much for letting us participate in the care of this patient. History of Present Illness Reason for Consultation: Left internal carotid artery stenosis Attending Physician: Dary Bravo MD History of Present Illness This is an 80-year-old female who has multiple medical problems. She came to the emergency room after having an episode of left-sided numbness. This lasted half hour and then totally resolved. She has not had any previous episodes of this problem. She did have TIAs in the past and underwent a right carotid endarterectomy for her right carotid stenosis. She had no further problems after the endarterectomy. She denies any claudication. She denies any significant weight loss. She denies any neurological deficit at this point. Allergies Allergy/AdvReac Type Severity Reaction Status Date / Time adhesive Allergy Mild HIVES Verified 03/09/21 19:37 No Known Drug Allergies Allergy Unknown . Verified 03/09/21 19:37 Home Medications Medication Instructions Recorded Confirmed Type Trelegy Ellipta 1 ea INHALATION DAILY 09/18/19 03/09/21 History albuterol sulfate 2 puff INHALATION Q4 PRN 09/18/19 03/09/21 History albuterol sulfate 2.5 mg INHALATION Q4 PRN 09/18/19 03/09/21 History amlodipine [Norvasc] 10 mg PO DAILY 09/18/19 03/09/21 History atorvastatin [Lipitor] 40 mg PO DAILY 09/18/19 03/09/21 History clopidogrel [Plavix] 75 mg PO DAILY 09/18/19 03/09/21 History hydralazine 25 mg PO BID 09/18/19 03/09/21 History losartan [Cozaar] 100 mg PO DAILY 09/18/19 03/09/21 History montelukast [Singulair] 10 mg PO HS 09/18/19 03/09/21 History multivitamin 1 tab PO DAILY 09/18/19 03/09/21 History omega 0-ybw-vcg-fish oil [Fish Oil] 1 cap PO BID 09/18/19 03/09/21 History furosemide 40 mg PO DAILY 03/09/21 03/09/21 History gabapentin 100 mg PO TID PRN 03/09/21 03/09/21 History Patient History Medical History (Updated 03/10/21 @ 14:51 by Pancho Whalen MD) Chronic diastolic heart failure COPD (chronic obstructive pulmonary disease) Depression GERD (gastroesophageal reflux disease) Hyperlipidemia Hypertension Lymphoma Nocturnal hypoxemia Non-Hodgkin lymphoma ISELA (obstructive sleep apnea) Prediabetes TIA (transient ischemic attack) Surgical History H/O carotid endarterectomy History of hysterectomy History of left hip replacement Family History Other Stroke Social History Smoking Status: Never smoker Hx Alcohol Use: Yes Alcohol type: wine Hx Substance Use: No Preferred Language: [place] Communication Ability: Effective Elementary 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 Required: No Beliefs That Will Affect Care: None marital status: / Current Living Situation: Alone Current Living Situation Comment: JAIL APARTMENT Other Information That Helps Us Care for You: No Feels Safe at Home: Yes Safety Concerns: Feels Safe At This Time Assistive Devices: None Review of Systems Review of Systems: All systems reviewed & are unremarkable except as noted in HPI & below Physical Exam Constitutional: well developed and well nourished; no acute distress Neck: trachea midline Respiratory: normal respiratory effort; no respiratory distress Auscultation: lungs clear to auscultation bilaterally Cardiovascular: Rate/Rhythm: regular rate and regular rhythm Vessels: + carotid bruit (Mild on both sides.), femoral pulses present and radial pulses present Extremities: normal capillary refill Gastrointestinal (Abdomen): Inspection/Auscultation: abdomen normal to inspection; abdomen not distended Percussion/Palpation: abdomen soft; abdomen nontender and no pulsatile mass Musculoskeletal: no cyanosis or clubbing, extremities motor strength 5/5 Skin: no rashes, warm and dry Neurologic: CN's II-XI intact bilaterally and moves all extremities Psychiatric: Orientation: alert and oriented x 3 Results & Data ([facility]) Vital Signs (Past 12 Hours) Vital Signs Temp Pulse Pulse Resp BP Pulse Ox 03/10/21 12:22 36.6 C 73 20 136/61 92 03/10/21 11:04 68 150/68 H 03/10/21 08:38 71 03/10/21 08:14 37.1 C 72 20 146/68 H 91 03/10/21 03:48 72 18 95 03/10/21 03:00 36.6 C 79 18 161/67 H 92 Signed By:<Electronically signed by Pancho Whalen MD>03/10/21 1456 Created: 03/10/21 1447 Admission Exam Per Admitting Provider Constitutional: well developed and well nourished; no acute distress Neck: trachea midline Respiratory: normal respiratory effort; no respiratory distress Auscultation: lungs clear to auscultation bilaterally Cardiovascular: Rate/Rhythm: regular rate and regular rhythm Vessels: + carotid bruit (Mild on both sides.), femoral pulses present and radial pulses present Extremities: normal capillary refill Gastrointestinal (Abdomen): Inspection/Auscultation: abdomen normal to inspection; abdomen not distended Percussion/Palpation: abdomen soft; abdomen nontender and no pulsatile mass Musculoskeletal: no cyanosis or clubbing, extremities motor strength 5/5 Skin: no rashes, warm and dry Neurologic: CN's II-XI intact bilaterally and moves all extremities Psychiatric: Orientation: alert and oriented x 3 Principal Diagnosis 1. s/p L CEA 2. LICAS Discharge Exam Constitutional WD/WN, vitals as above Neck trachea midline Cardiovascular Rate/Rhythm: regular rate and regular rhythm Skin + incision (Incision is dry and clean with no swelling seen.) Neurologic CN's II-XI intact bilaterally and moves all extremities Psychiatric Orientation: alert and oriented x 3 Discharge Data Allergies Allergy/AdvReac Type Severity Reaction Status Date / Time adhesive Allergy Mild HIVES Verified 04/06/21 09:11 No Known Drug Allergies Allergy Unknown . 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 She has no new neurological deficits. She will be discharged to self-care at home today. Total Time Total Time Spent Total Time Spent (In Minutes): 0 Discharge Plan Discharge Items Patient Disposition: Home - Self-Care Reason For Visit: Left Carotid Stenosis Discharge Diagnosis: Left carotid stenosis, status post left carotid endarterectomy. Activity: Per Instructions section Bathing: No limitations Exercise/Sports: Gradually increase as tolerated Non-emergency contact: Surgeon Call non-emergency contact if: your temperature is above 101.5, your wound has increased redness, your wound has increased drainage and your wound pain has increased Follow-up/Referrals: Naida Goddard MD [Primary Care Provider] - (Dr. Sd Alfred's office will call with appointment date and time.) Diet: Heart Healthy Addtl Attending Provider Instructions: SPECIAL CARE INSTRUCTIONS: Medications: * Continue to take Aspirin as directed. Incision Care: * You may shower, but do not rub incision. You may let the warm soapy water run over it. Be sure to dry the incision well after bathing. * Do not shave directly over the incision until it is healed. * DO NOT IMMERSE THE INCISION IN A TUB/POOL/etc. UNTIL HEALED. Restrictions: * Do not drive for at least one week or if you are still taking any narcotic pain medication. * Do not lift anything heavier than a gallon of milk for one week after going home. Possible Complications: * Numbness - It is normal to have some numbness around the incision. Numbness can extend beyond the incision to areas of the neck, ear and face. The numbness is due to bruising of nerves during the surgery and will gradually improve over a period of months. * Hoarseness/Difficulty Speaking and Swallowing - The bruising of nerves in the neck can also cause a hoarse voice, difficulty speaking or swallowing. This may improve over time, HOWEVER, if it continues for more than a few days please contact our office ([phone]). * Excessive Swelling - There will be some swelling immediately after surgery which usually resolves within one week. If you notice that the swelling is getting worse, notify your surgeon ([phone]). * Drainage/Bleeding - If there is any drainage or bleeding, it should be a very small amount (less than a teaspoon per day). If you have excessive bleeding or drainage from the incision, call your surgeon ([phone]) right away. ACTIVATION OF EMERGENCY MEDICAL SYSTEM: Call 911, immediately, if you experience any of the following: Warning Signs and Symptoms of Stroke: * Sudden numbness or weakness of the face, arm or leg, especially on one side of the body * Sudden confusion, trouble speaking or understanding * Sudden trouble seeing in one or both eyes * Sudden trouble walking, dizziness, loss of balance or coordination * Sudden severe headache with no cause Do not delay calling 911 if you experience any warning signs or symptoms of a stroke. Delay in seeking medical attention may affect what treatments can be given to you. Risk Factors for Stroke: You can reduce your chances of stroke by working with your medical provider to adopt a healthy lifestyle. Some specific ways to lower your chance of stroke are: * If you are a smoker, now is the time to stop smoking cigarettes * If you are diabetic, improve the control of your blood sugars * Avoid excessive amounts of alcohol * Control high blood pressure * Lose weight if you are overweight * Be sure to lead an active lifestyle * Eat a healthy diet low in salt, cholesterol and fat You should know about other risk factors for stroke that you are unable to control. These include: * Age 55 years or older * Male gender * Certain racial groups: , or / * Family History of Stroke, Mini stroke or Heart Attack * Sickle Cell Disease You will be receiving a call from the Vascular Surgery Nurse after you are discharged. FOLLOW UP VISIT: It is important for you to keep your follow up appointments with your medical provider. Keep any scheduled doctor appointments. Call [phone] to schedule a follow up appointment if one not already scheduled. Pending Studies at Discharge: No Stand-Alone Forms: [employer], Smoking Cessation Medications and DC Order Prescriptions: New oxycodone-acetaminophen [Percocet] 5-325 mg tablet 1 tab PO Q6H PRN (Reason: pain) Qty: 7 RF: 0 Continued atorvastatin [Lipitor] 40 mg tablet 40 mg PO QAM RF: 0 hydralazine 25 mg tablet 25 mg PO BID RF: 0 clopidogrel [Plavix] 75 mg tablet 75 mg PO QAM RF: 0 montelukast [Singulair] 10 mg tablet 10 mg PO QAM RF: 0 losartan [Cozaar] 100 mg tablet 100 mg PO QAM RF: 0 multivitamin Tablet 1 tab PO QAM RF: 0 albuterol sulfate 2.5 mg /3 mL (0.083 %) solution for nebulization 2.5 mg inhalation Q4 PRN (Reason: Shortness Of Breath Or Wheezing) RF: 0 amlodipine [Norvasc] 10 mg tablet 10 mg PO QAM RF: 0 albuterol sulfate 90 mcg/actuation HFA aerosol inhaler 2 puff INHALATION Q4 PRN (Reason: Shortness Of Breath Or Wheezing) RF: 0 omega 1-vyd-the-fish oil [Fish Oil] 1,000 mg (120 mg-180 mg) Capsule 1 cap PO BID RF: 0 furosemide 40 mg tablet 40 mg PO QAM RF: 0 aspirin 81 mg tablet,delayed release (DR/EC) 81 mg PO QAM RF: 0 naproxen sodium [Aleve] 220 mg Capsule 220 mg PO BID PRN (Reason: Pain) RF: 0 Discharge Orders: Discharge Order (Routine); Ordered 04/07/21 Ordered By: Pancho Whalen Admission Data Admit Date/Time: 04/06/21 12:08 Attending Provider: Pancho Whalen Admit Provider: Pancho Whalen Primary Care Provider: Naida Goddard Other Providers: Scooter Mota ; James Krishna Seth D. ; Narciso Hinds Chase B. ; Logan Rivera ; Erica Dodge Other Interventions: Discharge Summary Assessment (RN) Last Done: 04/07/21 13:33
== END 2021-04-07 14:23 | disposition home or self-care (01) | DRG 38 ==
LOC: ASU 08:48 → 1E 12:08

== ENCOUNTER 2022-07-26 08:05 | Inpatient (IN) ==
--- NOTE | 2022-07-03 16:10 | PAT Medication Instructions ---
Medication Instructions Date of Service July 03, 2022 Home Medications albuterol sulfate 2.5 mg/3 mL (0.083 %) solution for nebulization 2.5 mg inhalation Q4 PRN albuterol sulfate 90 mcg/actuation aerosol inhaler 2 puff inhalation Q4 PRN amlodipine 10 mg tablet (Norvasc) 10 mg PO QAM atorvastatin 40 mg tablet (Lipitor) 40 mg PO QAM hydralazine 25 mg tablet 25 mg PO BID losartan 100 mg tablet (Cozaar) 100 mg PO QAM montelukast 10 mg tablet (Singulair) 10 mg PO QAM multivitamin 1 tab PO QAM omega 0-aqr-sgv-fish oil 1,000 mg (120 mg-180 mg) capsule (Fish Oil) 1 cap PO BID furosemide 40 mg tablet 40 mg PO QAM ferrous sulfate 325 mg (65 mg iron) tablet,delayed release 325 mg PO BID STOP taking 2 weeks before surgery omega 3-ssg-mpq-fish oil 1,000 mg (120 mg-180 mg) capsule (Fish Oil) 1 cap PO BID DO NOT take the morning of surgery losartan 100 mg tablet (Cozaar) 100 mg PO QAM montelukast 10 mg tablet (Singulair) 10 mg PO QAM multivitamin 1 tab PO QAM furosemide 40 mg tablet 40 mg PO QAM ferrous sulfate 325 mg (65 mg iron) tablet,delayed release 325 mg PO BID Take morning of surgery With a small sip of water, OTHERWISE NOTHING TO EAT OR DRINK AFTER MIDNIGHT: albuterol sulfate 2.5 mg/3 mL (0.083 %) solution for nebulization 2.5 mg inhalation Q4 PRN(if needed) albuterol sulfate 90 mcg/actuation aerosol inhaler 2 puff inhalation Q4 PRN(use if needed; please bring with you to hospital day of surgery if possible) amlodipine 10 mg tablet (Norvasc) 10 mg PO QAM atorvastatin 40 mg tablet (Lipitor) 40 mg PO QAM hydralazine 25 mg tablet 25 mg PO BID Take evening before surgery albuterol sulfate 2.5 mg/3 mL (0.083 %) solution for nebulization 2.5 mg inhalation Q4 PRN(if needed) albuterol sulfate 90 mcg/actuation aerosol inhaler 2 puff inhalation Q4 PRN(use if needed; please bring with you to hospital day of surgery if possible) hydralazine 25 mg tablet 25 mg PO BID ferrous sulfate 325 mg (65 mg iron) tablet,delayed release 325 mg PO BID Other Notes If you have any questions please call us at [phone] or [phone] or [phone] or [phone]
--- NOTE | 2022-07-12 13:54 | Anesthesiology Consultation ---
Date of Service July 12, 2022 Assessment & Plan (1) Encounter for pre-operative examination: - COVID screening: Per assessment on 07/12: No known COVID-19 positive contacts or current COVID-19 related symptoms. Travel screen- returned from travel to [place] 07/11 (via bus). Patient vaccinated. At surgeon discretion if preop Covid testing being done. - [facility] Cardiology office visit (02/02/22): "Since last visit due to ongoing anemia, ASA was discontinued in favor of ongoing plavix therapy in setting of possible prior TIA and carotid artery disease. She follows with vascular surgery routinely and has upcoming appt in March 2022.. Stable cardiac symptoms. BP controlled. Appears euvolemic. No exertional chest pain/angina. Stable echo findings and report reviewed with mild . Will monitor.. No changes were made at today's visit. CHF tools discussed including daily weights, salt/sodium/fluid restriction, and use of diuretic protocol. She will keep f/u with vascular as scheduled." Chart Review Chart Review: Acceptable Risk for Surgery and Patient seen in Pre Admission Testing Teaching & Discussion Pre-Anesthesia Teaching/Discussion Notes: Instructed NPO after midnight before surgery,except medications with 15 cc of water. Medication instructions provided according to the PAT guidelines. History Surgery Operation Date: 07/26/22 12:10 Proposed Procedures p Left Transcarotid Artery Revascularization - Pancho Whalen MD Height/Weight Height: 5 ft 4 in Weight: 98.9 kg Allergies Allergy/AdvReac Type Severity Reaction Status Date / Time adhesive Allergy Intermediate HIVES Verified 07/03/22 08:52 Medications Home Medications Medication Instructions Recorded Confirmed Last Taken albuterol sulfate 2.5 mg/3 mL 2.5 mg inhalation Q4 PRN Shortness 09/18/19 07/03/22 09/08/21 (0.083 %) solution for nebulization Of Breath Or Wheezing albuterol sulfate 90 mcg/actuation 2 puff inhalation Q4 PRN Shortness 09/18/19 07/03/22 10/13/21 aerosol inhaler Of Breath Or Wheezing amlodipine 10 mg tablet (Norvasc) 10 mg PO QAM 09/18/19 07/03/22 10/14/21 07:00 atorvastatin 40 mg tablet (Lipitor) 40 mg PO QAM 09/18/19 07/03/22 10/14/21 07:00 hydralazine 25 mg tablet 25 mg PO BID 09/18/19 07/03/22 10/13/21 losartan 100 mg tablet (Cozaar) 100 mg PO QAM 09/18/19 07/03/22 10/14/21 07:00 montelukast 10 mg tablet 10 mg PO QAM 09/18/19 07/03/22 10/13/21 (Singulair) multivitamin 1 tab PO QAM 09/18/19 07/03/22 10/13/21 omega 7-ugx-stq-fish oil 1,000 mg 1 cap PO BID 09/18/19 07/03/22 10/13/21 (120 mg-180 mg) capsule (Fish Oil) furosemide 40 mg tablet 40 mg PO QAM 03/09/21 07/03/22 10/13/21 ferrous sulfate 325 mg (65 mg 325 mg PO BID 07/03/22 07/03/22 Unknown iron) tablet,delayed release Past Medical History Medical History Aortic stenosis Mild aortic stenosis per 12/29/21 echo Carotid artery stenosis s/p right (5+ years ago)/left (2020) carotid endarterectomy Chronic anemia chronic, baseline hgb 10-11 range per chart review Chronic diastolic heart failure COPD (chronic obstructive pulmonary disease) Stable Depression GERD (gastroesophageal reflux disease) History of COVID-19 2+ years ago > no further issues Hyperlipidemia Hypertension Lymphoma Myocardial Infarction Several years ago Nocturnal hypoxemia Non-Hodgkin lymphoma ISELA (obstructive sleep apnea) Not currently using CPAP due to recall Prediabetes Thyroid nodule Under surveillance TIA (transient ischemic attack) 10 years ago, 03/11/21 > follows [place] [facility] Exercise / Class Metabolic Activity III < 4 Walking/Shop/Light housework (one FS (no CP, + SOB)) Past Family History Family History Other No family history of adverse response to anesthesia Stroke Past Surgical History Surgical History H/O carotid endarterectomy Right History of colonoscopy History of esophagogastroduodenoscopy (EGD) History of hysterectomy History of left hip replacement History of left-sided carotid endarterectomy Past Anesthesia History No Hx of Anesthesia Complications and No Family Hx of Anesthesia Complications History of PONV No Hx of PONV and No Hx of Motion Sickness Social History Smoking Status: Never smoker Do You Dip or Chew Tobacco: No Hx Alcohol Use: No Hx Substance Use: No substance use type: does not use Review of Systems Chronic cough r/t COPD (unchanged). Patient denies chest pain, shortness of breath, fever, chills, wheezing, palpitations. Physical Exam Vital Signs VITALS BP 169/67 P 70 TEMP 98.2 SP02 94%RA RESP 16 PHYSICAL Full cervical extension range of motion. Full TMJ range of motion. TMD 3 finger breaths Mallampati Score 2 Dentition: full dentures upper/lower Lungs: mild expiratory wheezes Cardiac: regular rate and rhythm, I-II/ systolic murmur Spine: normal Carotid arteries: negative bruit Extremities: no edema Lab Results Anesthesia Preop Results Results Anesthesia Widget: WBC 5.76 K/ul (4.8-10.8) 07/12/22 Hgb 12.2 g/dl (12.0-16.0) 07/12/22 Hct 38.3 % (34.1-44.9) 07/12/22 Plt 282 K/uL (130-400) 07/12/22 Na 139 mmol/L (136-145) 07/12/22 K 3.8 mmol/L (3.5-5.1) 07/12/22 Cl 103 mmol/L (98-107) 07/12/22 CO2 29 mmol/L (21-32) 07/12/22 BUN 16 mg/dl (6-23) 07/12/22 Creat 0.84 mg/dl (0.6-1.2) 07/12/22 Glucose Level 109 mg/dl (70-99(Fasting)) H 07/12/22 PT 11.3 Seconds (9.0-12.0) 07/12/22 PTT 25.9 Seconds (21.0-31.0) 07/12/22 INR 1.1 (0.9-1.1) 07/12/22 Blood Type A Positive 07/12/22 Antibody Screen NEGATIVE 07/12/22 Testing Electrocardiogram Date: 02/02/22 Findings: + NSR @ (81) Chest X-Ray Date: 07/12/22 FINDINGS: Emphysema is noted. Mild interstitial thickening is likely chronic. Lungs are clear. There is no pneumothorax or pleural effusion. Cardiac size is normal. Mediastinal contours are normal. There is no evidence for pulmonary edema. IMPRESSION: No acute cardiopulmonary findings. Emphysema. Echocardiogram Date: 12/29/21 LVEF 60-64%. Mild LAE. Grade 2 diastolic dysfunction. Mildly calcified aortic valve. Mild aortic valve stenosis (NATE 1.2 cm, MG 12.5-15.5 mmHg). Moderate mitral annular calcification. Compared to previous study 12/28/2020, no significant changes. Other Testing Neck CTA (06/21/22) Interval development of 2 focal areas of high-grade stenosis within the proximal left internal carotid artery. Status post bilateral carotid endarterectomies. No significant stenosis, occlusion, or dissection within the right carotid or vertebral arteries. COVID-19 Risk Screen Screening Information COVID-19 Screen Date: 07/12/22 Exposure 21 Days Family/Household +COVID Last 21 Days: No Exposure 10 Days Any COVID Exposure Last 10 Days: No Symptoms Last 10 Days Experienced COVID Sx Last 10 Days: No + COVID 0-90 Days COVID + in Last 0-90 Days: No
--- NOTE | 2022-07-25 14:32 | History & Physical Report ---
Date of Service July 25, 2022 Assessment & Plan (1) Stenosis of left internal carotid artery: Plan: This point recommended the TCAR of her left carotid artery. She understood the risks options and benefits of having a TCAR versus endarterectomy. She is elected to go ahead with the TCAR rather than a redo carotid endarterectomy. History of Present Illness Chief Complaint: Restenosis of left carotid artery Primary Care Provider: Rhys Humphrey MD I the pleasure of seeing Keisha today for follow-up. As you know she is an 81-year-old female who had a left carotid endarterectomy last year. She is asymptomatic from carotid disease at this time. She had her routine follow-up ultrasound which shows increased velocity in the proximal portion of her common carotid artery. This appears to be before the endarterectomy starts. Allergies Allergy/AdvReac Type Severity Reaction Status Date / Time adhesive Allergy Intermediate HIVES Verified 07/03/22 08:52 Home Medications Medication Instructions Recorded Confirmed Type albuterol sulfate 2.5 mg/3 mL 2.5 mg inhalation Q4 PRN Shortness 09/18/19 07/03/22 History (0.083 %) solution for nebulization Of Breath Or Wheezing albuterol sulfate 90 mcg/actuation 2 puff inhalation Q4 PRN Shortness 09/18/19 07/03/22 History aerosol inhaler Of Breath Or Wheezing amlodipine 10 mg tablet (Norvasc) 10 mg PO QAM 09/18/19 07/03/22 History atorvastatin 40 mg tablet (Lipitor) 40 mg PO QAM 09/18/19 07/03/22 History hydralazine 25 mg tablet 25 mg PO BID 09/18/19 07/03/22 History losartan 100 mg tablet (Cozaar) 100 mg PO QAM 09/18/19 07/03/22 History montelukast 10 mg tablet 10 mg PO QAM 09/18/19 07/03/22 History (Singulair) multivitamin 1 tab PO QAM 09/18/19 07/03/22 History omega 9-fma-yyq-fish oil 1,000 mg 1 cap PO BID 09/18/19 07/03/22 History (120 mg-180 mg) capsule (Fish Oil) furosemide 40 mg tablet 40 mg PO QAM 03/09/21 07/03/22 History ferrous sulfate 325 mg (65 mg 325 mg PO BID 07/03/22 07/03/22 History iron) tablet,delayed release Past Med/Surg History Medical History Aortic stenosis Mild aortic stenosis per 12/29/21 echo Carotid artery stenosis s/p right (5+ years ago)/left (2020) carotid endarterectomy Chronic anemia chronic, baseline hgb 10-11 range per chart review Chronic diastolic heart failure COPD (chronic obstructive pulmonary disease) Stable Depression GERD (gastroesophageal reflux disease) History of COVID-19 2+ years ago > no further issues Hyperlipidemia Hypertension Lymphoma Myocardial Infarction Several years ago Nocturnal hypoxemia Non-Hodgkin lymphoma ISELA (obstructive sleep apnea) Not currently using CPAP due to recall Prediabetes Thyroid nodule Under surveillance TIA (transient ischemic attack) 10 years ago, 03/11/21 > follows [place] [facility] Surgical History H/O carotid endarterectomy Right History of colonoscopy History of esophagogastroduodenoscopy (EGD) History of hysterectomy History of left hip replacement History of left-sided carotid endarterectomy Family History Other No family history of adverse response to anesthesia Stroke Social History Smoking Status: Never smoker Second Hand Exposure: No; Hx Alcohol Use: No Hx Substance Use: No Preferred Language: [place] Communication Ability: Effective Criminal Justice Professor Required: No Beliefs That Will Affect Care: None marital status: / Current Living Situation: Alone Current Living Situation Comment: [facility]ARTMENT current occupational status: retired Feels Safe at Home: Yes Assistive Devices: Denture - Upper, Denture - Lower and Glasses Review of Systems All systems reviewed & are unremarkable except as noted in HPI & below Physical Exam Physical Exam: On exam she is awake alert and oriented x3. Blood pressure 150/60 on the right 154/58 on the left. Her radials carotids are +2 bilaterally. There is a left carotid bruit audible. Her neck incision is well- healed. The lungs are clear. Heart irregular rate and rhythm. Abdominal exam is benign. Femorals are +2 bilaterally. Neurologic exam is grossly intact to motor and sensory function.
[~2022-07-26 08:05] MED LIST changes: +ceFAZolin 1000MG 1,000 MG/7.5 ML SYR IV SCH; -ceFAZolin 2000MG 2,000 MG/15 ML SYR IV SCH
[2022-07-26] MEDS ORDERED: ATROPINE SULFATE 0.1 MG/ML 10ML SYR IV PRN (08:41)
[2022-07-26] MEDS ORDERED: fentaNYL citrate 100 MCG/2 ML VIAL IV PRN (08:41)
[2022-07-26] MEDS ORDERED: PHENYLEPHRINE 100MCG/ML 5ML SYR IV PRN (08:41)
[2022-07-26] MEDS ORDERED: ePHEDrine sulfate 50 MG/ML AMP IV PRN (08:41)
[2022-07-26] MEDS ORDERED: LABETALOL HCL IV 5 MG/ML 20ML IV PRN (08:41)
[2022-07-26] MEDS ORDERED: HYDROmorphone INJ 1 MG/ML SYRINGE IV PRN (08:41)
[2022-07-26] MEDS ORDERED: ONDANSETRON INJ 2 MG/ML 2 ML VIAL IV PRN (08:41)
[2022-07-26] MEDS ORDERED: fentaNYL citrate 100 MCG/2 ML VIAL ONE (09:36)
[2022-07-26] MEDS ORDERED: SUGAMMADEX SODIUM 200 MG/2 ML VIAL IV ONE (09:58)
[2022-07-26] MEDS ORDERED: ceFAZolin 330 MG/ML 1 GM VIAL ONE (10:10)
--- NOTE | 2022-07-26 10:11 | History & Physical Bridge Note ---
Date of Service July 26, 2022 History & Physical Bridge Note I have examined the patient, reviewed the History & Physical and in the interval since the performance of the History & Physical I have noted the following changes of clinical significance: no changes noted
[2022-07-26] MEDS ORDERED: ROCURONIUM BROMIDE 10 MG/ML 5 ML VIAL IV ONE (11:25)
[2022-07-26] MEDS ORDERED: GLYCOPYRROLATE 0.2 MG/ML VIAL ONE (11:25)
[2022-07-26] MEDS ORDERED: PROPOFOL IV EMULSION 10 MG/ML 20 ML VIAL IV ONE (11:25)
[2022-07-26] MEDS ORDERED: LIDOCAINE 2% MPF LOCAL 5 ML VIAL INFIL ONE (11:25)
[2022-07-26] MEDS ORDERED: ONDANSETRON INJ 2 MG/ML 2 ML VIAL ONE (11:26)
[2022-07-26] MEDS ORDERED: ePHEDrine sulfate 50 MG/ML AMP ONE ×2 (11:26)
[2022-07-26] MEDS ORDERED: DEXAMETHASONE SOD INJ 4 MG/ML VIAL ONE (11:26)
[2022-07-26] MEDS ORDERED: PHENYLEPHRINE HCL 10 MG/ML VIAL ONE (11:26)
[2022-07-26] MEDS ORDERED: HEPARIN SOD (PORCINE) 1000 UNIT/ML ONE (11:26)
[2022-07-26] MEDS ORDERED: PROTAMINE SULFATE 10 MG/ML 5 ML VIAL ONE (11:28)
[2022-07-26] MEDS ORDERED: VISIPAQUE IV ONE (11:36)
--- NOTE | 2022-07-26 11:37 | Procedure Note ---
Angiogram Post Procedure Fluoroscopy Time (minutes): 2.5 Radiation (mGy): 38 Contrast: 15 Post Operative Report Pre & Post Diagnosis Operation Date: 07/26/22 10:20 Pre-Op Diagnosis: (1) Stenosis of left internal carotid artery Post-Op Diagnosis: (1) Stenosis of left internal carotid artery I identified the patient and participated in the time-out.: Yes Procedure Operation Date: 07/26/22 10:20 Actual Procedures p Left Transcarotid Artery Revascularization(Left) Ultrasound localization of right common femoral vein- Pancho Whalen MD Surgeon Pancho Whalen MD Chronometer Tester Michelle,CURLY Estimated Blood Loss 20 Findings Consistent with Post-Op Diagnosis Specimens none Anesthesia Type General Complications none Disposition Accompanied Patient To Recovery: No Disposition: Recovery Room Indications This is an 81-year-old female who a year ago had a left carotid endarterectomy. In follow-up she was found to have a severe restenosis of her left carotid enterectomy site. TCAR was recommended due to the hostile neck from previous surgery. I have discussed the risks options and benefits of the procedure with the patient. The patient understands the risks options and benefits and agrees to the procedure. Description of Procedure The patient was taken to the operating room and placed in supine position. After general anesthesia was accomplished the groins and left side of the neck and chest were prepped and draped in a sterile manner. Timeout was performed and the patient was identified. A transverse incision was made just above the clavicle between the heads of the sternocleidomastoid. This was carried down to where the common carotid artery was identified. It was isolated and slung with an umbilical tape. It was given 8000units of heparin at that time. Ultrasound was then used to localize the left common femoral vein. The vein was patent and compressed easily. Under ultrasound guidance the left common femoral vein was punctured and the venous sheath was inserted. This was aspirated and flushed with heparinized saline. An ACT at that time was 271. Using micropuncture technique the common carotid artery was punctured. The micro sheath was inserted to 3 cm. Injection was then done showing the bifurcation. There was a significant lesion seen at the origin of the internal carotid artery on the left side and another lesion slightly more distal.. We reinserted the micro wire and passed it into the external carotid. We then advanced the dilator and sheath into the external carotid. The dilater and sheath were removed. We then inserted the J-wire into the external carotid artery. The TCAR sheath was inserted. Once it was in place and held against the artery it was sutured to the chest wall and the incision edge. We then flushed the tubing appropriately. The venous return tubing was clamped onto the TCAR sheath. It was flushed through and then attached to the venous inflow sheath in the right groin. The sheath was checked for flow. We then inserted a 4 x 3 balloon backloaded on the wire. The wire was passed through the lesion into the petrous portion of the internal carotid. The 4 balloon was then advanced to the lesion. The lesion was then predilated with the 4 mm balloon. The balloon was removed. We then inserted the 9 x 40 stent. This was deployed across the lesion without difficulty. The catheter was removed. The carotid was allowed to go 2 minutes with flow reversal. Completion angiogram was done at that time which showed no residual stenosis.The wire was removed. We allowed 2 minutes of flow reversal to occur. A that point the common carotid artery was unclamped. The venous return tubing was clamped and removed from the TCAR sheath. The blood was allowed to flow back into the venous system. Once this was completed the sheath was pulled from the groin and pressure was applied. The TCAR sheath was then removed and the 5-0 Prolene suture securely tied. Hemostasis was noted of the puncture site. Wound was irrigated with Ancef solution. Adequate hemostasis was obtained of the wound. Once this was noted the wound was closed in usual fashion using a 3-0 Vicryl suture for the subcutaneous layer and a 4-0 subcuticular Vicryl suture for the skin edges. De rmabond was used for dressing.The patient left the operation room in satisfactory condition and tolerated the procedure well. All needle and sponge counts were correct at the end of the procedure. Cathi Talavera Pac assisted due to lack of resident availability and was necessary for positioning, draping, retraction, wound closure deep layers, subcutaneous tissue, and skin closure and was necessary for assisting with the case. I attest to the content of the Intraoperative Record and any orders documented therein. Any exceptions are noted below.
--- NOTE | 2022-07-26 13:38 | Anesthesiology Progress Note ---
Date of Service July 26, 2022 Anesthesia Post Procedure Vital Signs Vital Signs: Temp Pulse Pulse Resp BP BP BP 07/26/22 13:15 36.4 C L 93 H 19 109/59 L 123/50 L 07/26/22 13:05 91 H 17 110/53 L 125/47 L 07/26/22 12:55 92 H 18 124/55 L 130/50 L 07/26/22 12:45 93 H 13 114/61 126/49 L 07/26/22 12:35 94 H 17 125/65 144/54 H 07/26/22 12:25 96 H 17 129/68 147/56 H 07/26/22 12:15 101 H 18 119/63 132/51 L 07/26/22 12:08 36.0 C L 100 H 14 141/67 H 07/26/22 08:47 36.5 C 86 18 156/62 H 07/26/22 08:34 Pulse Ox O2 Del Method O2 Flow Rate 07/26/22 13:15 93 Nasal Cannula 3 07/26/22 13:05 92 Nasal Cannula 2 07/26/22 12:55 93 Nasal Cannula 2 07/26/22 12:45 95 Nasal Cannula 2 07/26/22 12:35 98 Oxymask 6 07/26/22 12:25 99 Oxymask 6 07/26/22 12:15 100 Oxymask 6 07/26/22 12:08 98 Oxymask 6 07/26/22 08:47 94 Room Air 07/26/22 08:34 Room Air Transfer of Care Handoff Completed per policy Notes Mental Status: alert / awake / arousable Patient Amnestic to Procedure: Yes Nausea / Vomiting: adequately controlled Pain: adequately controlled Airway Patency, RR, SpO2: stable & adequate BP & HR: stable & adequate Hydration State: stable & adequate Anesthetic Complications: no major complications apparent and Pt Satisfied with anesthetic care Notes: The patient is awake and comfortable. Her vital signs are stable. She has some mild swelling in her neck. Dr. Whalen is aware and is unconcerned. Report was given to Dr. Krishna in the ICU.
[2022-07-26] MEDS ORDERED: LACTATED RINGER'S 1,000 ML IV SCH (15:01)
[2022-07-26] MEDS ORDERED: ALBUTEROL 0.083% NEBU SOLN 3 ML VIAL INH PRN (15:01)
[2022-07-26] MEDS ORDERED: oxyCODONE/ACETAMINOPHEN 5mg/325mg TAB PO PRN (15:01)
[2022-07-26] MEDS: ceFAZolin 1000MG 1,000 MG/7.5 ML SYR IV SCH (19:02)
[2022-07-26] MEDS: ALBUTEROL HFA 8 GM INHALER INH PRN ×2 (19:24→23:25)
[2022-07-26] MEDS: hydrALAZINE HCL 25 MG TAB PO SCH (20:46)
[2022-07-26] MEDS: OMEGA-3 (PURIFIED FISH OIL) 1 GM CAP PO SCH ×2 (20:47→22:02)
[2022-07-26] MEDS: FERROUS SULFATE 325 MG TAB PO SCH ×2 (20:47→21:00)
[2022-07-27] MEDS: ceFAZolin 1000MG 1,000 MG/7.5 ML SYR IV SCH (03:09)
--- NOTE | 2022-07-27 05:29 | Critical Care Consultation ---
Date of Consultation July 27, 2022 Assessment & Plan (1) Stenosis of left internal carotid artery: Impression: 81-year-old female presents to the ICU following an elective left transcarotid artery revascularization for restenosis of the left internal carotid artery. Neuro - [facility]: Negative CASstatus post left transcarotid artery revascularization POD 1. Management per surgical team -Hold anticoagulation, neurological exams per protocol -Continue ASA Plavix -Admitted to ICU Cardiac - Diastolic heart failurenormal EF on last echo from 12/20 with moderate diastolic dysfunction grade 2, mild aortic valve stenosis -Continue home Lasix. She appears to be euvolemic on exam HTNcontinue Cozaar, hydralazine, amlodipine HLDcontinue statin Respiratory - COPDappears to be stable. No labored breathing on exam. Patient states she is on home O2 and currently on 2 L nasal cannula which appears to be her baseline. -Nebs as needed -Continue Singulair -Monitor on pulse ox GI - Heart healthy diet RENAL/LYTES - Preop labs within normal limits, no issues at this time - Monitor I's and O's ENDO - No history of diabetes or thyroid disease, ICU hyperglycemic protocol HEME - Preop lab work within normal limits, no significant EBL or signs of bleeding ID - Empiric Ancef LINES/IV ACCESS - Peripheral IVs, A-line DVT PROPHYLAXIS - SCDs, no anticoagulation given surgical procedure Thank you for allowing us to participate in the care of this patient. Please refer to my attending physician's documentation for any further recommendations. (2) COPD (chronic obstructive pulmonary disease): (3) ISELA (obstructive sleep apnea): (4) GERD (gastroesophageal reflux disease): (5) TIA (transient ischemic attack): (6) Hyperlipidemia: (7) Hypertension: (8) Chronic diastolic heart failure: History of Present Illness Attending Physician: Pancho Whalen MD History of Present Illness Patient is a 80-year-old female with a past medical history of COPD, diastolic heart failure, GERD, HLD, HTN, non-Hodgkin's lymphoma, ISELA, TIA, and carotid artery stenosis. Patient is previously underwent both right and left carotid endarterectomies. Last evening she underwent elective left transcarotid artery revascularization for restenosis of the left internal carotid artery. She now presents to the ICU postop for further monitoring and management. On exam the patient is alert and oriented x3. She appears to be in no acute distress. She denies headache, dizziness, visual changes, facial droop, slurred speech, or numbness and tingling. She does report a cough which is chronic due to her COPD and been ongoing for couple of years. She denies any shortness of breath, chest pain, palpitations, abdominal pain, nausea vomiting or diarrhea. Allergies Allergy/AdvReac Type Severity Reaction Status Date / Time adhesive Allergy Intermediate HIVES Verified 07/26/22 08:30 Home Medications Medication Instructions Recorded Confirmed Type albuterol sulfate 2.5 mg/3 mL 2.5 mg inhalation Q4 PRN Shortness 09/18/19 07/26/22 History (0.083 %) solution for nebulization Of Breath Or Wheezing albuterol sulfate 90 mcg/actuation 2 puff inhalation Q4 PRN Shortness 09/18/19 07/26/22 History aerosol inhaler Of Breath Or Wheezing amlodipine 10 mg tablet (Norvasc) 10 mg PO QAM 09/18/19 07/26/22 History atorvastatin 40 mg tablet (Lipitor) 40 mg PO QAM 09/18/19 07/26/22 History hydralazine 25 mg tablet 25 mg PO BID 09/18/19 07/26/22 History losartan 100 mg tablet (Cozaar) 100 mg PO QAM 09/18/19 07/26/22 History montelukast 10 mg tablet 10 mg PO QAM 09/18/19 07/26/22 History (Singulair) multivitamin 1 tab PO QAM 09/18/19 07/26/22 History omega 1-mel-gaw-fish oil 1,000 mg 1 cap PO BID 09/18/19 07/26/22 History (120 mg-180 mg) capsule (Fish Oil) furosemide 40 mg tablet 40 mg PO QAM 03/09/21 07/26/22 History ferrous sulfate 325 mg (65 mg 325 mg PO BID 07/03/22 07/26/22 History iron) tablet,delayed release Aspir-81 81 07/26/22 History Plavix 07/26/22 History Patient History Medical History Aortic stenosis Mild aortic stenosis per 12/29/21 echo Carotid artery stenosis s/p right (5+ years ago)/left (2020) carotid endarterectomy Chronic anemia chronic, baseline hgb 10-11 range per chart review Chronic diastolic heart failure COPD (chronic obstructive pulmonary disease) Stable Depression GERD (gastroesophageal reflux disease) History of COVID-19 2+ years ago > no further issues Hyperlipidemia Hypertension Lymphoma Myocardial Infarction Several years ago Nocturnal hypoxemia Non-Hodgkin lymphoma ISELA (obstructive sleep apnea) Not currently using CPAP due to recall Prediabetes Thyroid nodule Under surveillance TIA (transient ischemic attack) 10 years ago, 03/11/21 > follows with [facility] neuro Surgical History H/O carotid endarterectomy Right History of colonoscopy History of esophagogastroduodenoscopy (EGD) History of hysterectomy History of left hip replacement History of left-sided carotid endarterectomy Family History Other No family history of adverse response to anesthesia Stroke Social History Smoking Status: Never smoker Second Hand Exposure: No; Do You Dip or Chew Tobacco: No; Tobacco Cessation Education Requested by Patient: No Hx Alcohol Use: No Hx Substance Use: No Preferred Language: Cypriot Communication Ability: Effective Parimutuel Cashier Required: No Beliefs That Will Affect Care: None marital status: / Current Living Situation: Alone Current Living Situation Comment: [employer] current occupational status: retired Other Information That Helps Us Care for You: No Feels Safe at Home: Yes Safety Concerns: Feels Safe At This Time Assistive Devices: CPAP, Denture - Upper, Denture - Lower, Glasses and Hearing Aid - Bilateral Review of Systems Review of Systems: All systems reviewed & are unremarkable except as noted in HPI & below Physical Exam Constitutional: cooperative and comfortable; no acute distress Eyes: PERRL, conjunctivae normal, anicteric sclerae ENMT: external ear and nose normal, oropharynx normal Neck: trachea midline, no thyromegaly Respiratory: normal respiratory effort, + cough (Nonproductive) and symmetric chest movement; no respiratory distress, no labored breathing, not tachypneic, no audible wheezes, no pursed lip breathing, no tripod positioning and no stridor Auscultation: + diminished lung sounds; no crackles and no wheezes Gastrointestinal (Abdomen): normal bowel sounds, soft, nontender, no hepatosplenomegaly Musculoskeletal: no cyanosis or clubbing, extremities motor strength 5/5 Skin: Anterior neck surgical incision well approximated without significant swelling or edema Neurologic: PERRL, EOMI, accommodation nl, no face palsy, no dysarthria Psychiatric: A+Ox3, euthymic affect Results & Data Results & Data ([facility]) Vital Signs (Past 12 Hours) Vital Signs Temp Pulse Pulse Resp BP BP BP 07/27/22 04:00 90 19 156/68 H 07/27/22 03:00 93 H 19 164/73 H 07/27/22 02:03 178/79 H 07/27/22 02:01 89 18 188/81 H 07/27/22 01:00 89 17 156/71 H 07/27/22 00:04 95 H 14 141/61 H 07/27/22 00:22 89 07/26/22 19:00 07/26/22 23:00 91 H 16 149/64 H 07/26/22 23:34 94 H 16 07/26/22 21:00 36.6 C 07/26/22 22:00 91 H 17 136/57 L 07/26/22 21:30 89 28 H 149/63 H 07/26/22 21:00 90 19 150/60 H 07/26/22 20:30 89 17 07/26/22 20:01 96 H 20 151/76 H 07/26/22 19:45 89 18 137/53 L 07/26/22 19:38 91 H 23 120/68 07/26/22 19:30 90 18 119/64 07/26/22 19:15 90 20 122/51 L 07/26/22 19:00 98 H 22 127/54 L 07/26/22 19:26 90 16 07/26/22 18:15 91 H 07/26/22 18:15 07/26/22 18:15 36.6 C 91 H 19 104/87 126/45 L 07/26/22 18:15 36.6 C 90 16 104/87 125/46 L 07/26/22 17:30 36.5 C 95 H 16 127/52 L 132/52 L 07/26/22 17:00 98 H 15 111/43 L 120/47 L Pulse Ox O2 Del Method O2 Flow Rate 07/27/22 04:00 94 07/27/22 03:00 94 07/27/22 02:03 07/27/22 02:01 92 07/27/22 01:00 92 07/27/22 00:04 93 07/27/22 00:22 07/26/22 19:00 Nasal Cannula 2 07/26/22 23:00 93 07/26/22 23:34 94 Nasal Cannula 2 07/26/22 21:00 07/26/22 22:00 95 Nasal Cannula 2 07/26/22 21:30 95 2 07/26/22 21:00 94 Nasal Cannula 2 07/26/22 20:30 91 07/26/22 20:01 92 07/26/22 19:45 92 07/26/22 19:38 95 07/26/22 19:30 95 07/26/22 19:15 96 07/26/22 19:00 95 07/26/22 19:26 97 Nasal Cannula 2 07/26/22 18:15 07/26/22 18:15 Nasal Cannula 1 07/26/22 18:15 95 Nasal Cannula 1 07/26/22 18:15 94 Nasal Cannula 1 07/26/22 17:30 97 Nasal Cannula 2 07/26/22 17:00 98 Nasal Cannula 2 Coding Level of Care Code 58829 Inpt Consult Level 3 Diagnoses Stenosis of left internal carotid artery I65.22 COPD (chronic obstructive pulmonary disease) J44.9 ISELA (obstructive sleep apnea) G47.33 GERD (gastroesophageal reflux disease) K21.9 TIA (transient ischemic attack) G45.9 Hyperlipidemia E78.5 Hypertension I10 Chronic diastolic heart failure I50.32
[2022-07-27] MEDS: hydrALAZINE HCL 25 MG TAB PO SCH (08:44)
[2022-07-27] MEDS: FERROUS SULFATE 325 MG TAB PO SCH (08:44)
[2022-07-27] MEDS: OMEGA-3 (PURIFIED FISH OIL) 1 GM CAP PO SCH (08:44)
[2022-07-27] MEDS ORDERED: amLODIPine BESYLATE 5 MG TAB PO SCH (09:00)
[2022-07-27] MEDS ORDERED: ATORVASTATIN 40 MG TAB PO SCH (09:00)
[2022-07-27] MEDS ORDERED: CLOPIDOGREL BISULFATE 75 MG TAB PO SCH (09:00)
[2022-07-27] MEDS ORDERED: ASPIRIN 81 MG ECTAB PO SCH (09:00)
[2022-07-27] MEDS ORDERED: LOSARTAN POTASSIUM 50 MG TAB PO SCH (09:00)
[2022-07-27] MEDS ORDERED: MULTIVITAMIN TAB PO SCH (09:00)
[2022-07-27] MEDS ORDERED: FUROSEMIDE 40 MG TAB PO SCH (09:00)
[2022-07-27] MEDS ORDERED: MONTELUKAST SODIUM 10 MG TABLET PO SCH (09:00)
--- NOTE | 2022-07-27 09:41 | Critical Care Progress Note ---
Date of Service July 27, 2022 Assessment & Plan Admission and Anticipated Discharge Date Admission Date: July 26, 2022 Supervising Physician Co-Signing Physician Notes Dr. Birmingham was resident physician during care of patient. I separately evaluated patient for ace portions of the history and the exam. I was present during the critical portion of medical decision making, and I discussed the case with the resident. I generally agree with the findings and plan. Tolerating diet this morning, wears 2 L oxygen at home for chronic hypoxic respiratory failure, patient normally wears CPAP at night: unknown settings, if patient knows settings we can order those otherwise if she would like positive pressure to aid in sleep start 10 cmH2O CPAP as needed when sleeping. Critical care will sign off. Results & Data Results & Data ([facility]) Vital Signs (Past 12 Hours) Vital Signs Temp Pulse Pulse Resp BP Pulse Ox O2 Del Method 07/27/22 09:00 87 19 97 07/27/22 09:00 148/73 H 07/27/22 08:30 92 H 19 94 07/27/22 08:00 92 H 18 95 07/27/22 07:30 92 H 27 H 96 07/27/22 07:00 99 H 19 95 07/27/22 07:00 157/75 H 07/27/22 06:30 90 17 96 07/27/22 08:00 87 164/62 H 07/27/22 07:46 Nasal Cannula 07/27/22 04:00 36.5 C 07/27/22 06:00 93 H 19 162/71 H 93 Nasal Cannula 07/27/22 05:00 94 H 19 173/74 H 96 07/27/22 04:00 90 19 156/68 H 94 07/27/22 03:00 93 H 19 164/73 H 94 07/27/22 02:03 178/79 H 07/27/22 02:01 89 18 188/81 H 92 07/27/22 01:00 89 17 156/71 H 92 07/27/22 00:04 95 H 14 141/61 H 93 07/27/22 00:22 89 07/26/22 23:00 91 H 16 149/64 H 93 07/26/22 23:34 94 H 16 94 Nasal Cannula 07/26/22 22:00 91 H 17 136/57 L 95 Nasal Cannula O2 Flow Rate 07/27/22 09:00 07/27/22 09:00 07/27/22 08:30 07/27/22 08:00 07/27/22 07:30 07/27/22 07:00 07/27/22 07:00 07/27/22 06:30 07/27/22 08:00 07/27/22 07:46 2 07/27/22 04:00 07/27/22 06:00 2 07/27/22 05:00 07/27/22 04:00 07/27/22 03:00 07/27/22 02:03 07/27/22 02:01 07/27/22 01:00 07/27/22 00:04 07/27/22 00:22 07/26/22 23:00 07/26/22 23:34 2 07/26/22 22:00 2
--- NOTE | 2022-07-27 09:42 | Billing Data ---
Date of Service July 27, 2022 Coding Level of Care Code 13141 Subseq Obs Care Lvl 1
--- NOTE | 2022-07-27 13:14 | Surgery Progress Note ---
Date of Service July 27, 2022 Assessment & Plan (1) Stenosis of left internal carotid artery: Plan: Post op day #1 from left tcar. Doing well. D/c today Admission and Anticipated Discharge Date Admission Date: July 26, 2022 Subjective No complaints. Physical Exam Constitutional: WD/WN, vitals as above Respiratory: normal respiratory effort; no respiratory distress Cardiovascular: Rate/Rhythm: regular rate and regular rhythm Musculoskeletal: Extremities: strength 5/5 throughout Skin: + incision (ecchymosis around wound noted) Neurologic: CN's II-XI intact bilaterally and moves all extremities Psychiatric: Orientation: alert and oriented x 3 Results & Data ([facility]) Vital Signs (Past 12 Hours) Vital Signs Temp Pulse Pulse Resp BP BP Pulse Ox 07/27/22 13:04 36.6 C 94 H 21 155/71 H 93 07/27/22 08:00 07/27/22 12:09 155/71 H 07/27/22 12:09 90 21 93 07/27/22 12:00 97 H 20 90 07/27/22 11:30 90 21 93 07/27/22 11:00 94 H 18 91 07/27/22 10:30 103 H 15 92 07/27/22 10:02 91 H 21 96 07/27/22 10:02 172/71 H 07/27/22 10:00 94 H 21 96 07/27/22 10:00 170/75 H 07/27/22 09:30 86 20 96 07/27/22 08:00 36.6 C 07/27/22 09:00 87 19 97 07/27/22 09:00 148/73 H 07/27/22 08:30 92 H 19 94 07/27/22 08:00 92 H 18 95 07/27/22 07:30 92 H 27 H 96 07/27/22 07:00 99 H 19 95 07/27/22 07:00 157/75 H 07/27/22 06:30 90 17 96 07/27/22 08:00 87 164/62 H 07/27/22 07:46 07/27/22 04:00 36.5 C 07/27/22 06:00 93 H 19 162/71 H 93 07/27/22 05:00 94 H 19 173/74 H 96 07/27/22 04:00 90 19 156/68 H 94 07/27/22 03:00 93 H 19 164/73 H 94 07/27/22 02:03 178/79 H 07/27/22 02:01 89 18 188/81 H 92 O2 Del Method O2 Flow Rate FiO2 07/27/22 13:04 07/27/22 08:00 Nasal Cannula 2 07/27/22 12:09 07/27/22 12:09 Room Air 07/27/22 12:00 Room Air 07/27/22 11:30 07/27/22 11:00 07/27/22 10:30 07/27/22 10:02 07/27/22 10:02 07/27/22 10:00 07/27/22 10:00 07/27/22 09:30 07/27/22 08:00 07/27/22 09:00 07/27/22 09:00 07/27/22 08:30 07/27/22 08:00 07/27/22 07:30 07/27/22 07:00 07/27/22 07:00 07/27/22 06:30 07/27/22 08:00 07/27/22 07:46 Nasal Cannula 2 07/27/22 04:00 07/27/22 06:00 Nasal Cannula 2 07/27/22 05:00 07/27/22 04:00 07/27/22 03:00 07/27/22 02:03 07/27/22 02:01
--- NOTE | 2022-07-28 11:18 | Discharge Summary ---
Date of Service July 28, 2022 Admission HPI Per Admitting Provider I the pleasure of seeing Keisha today for follow-up. As you know she is an 81-year-old female who had a left carotid endarterectomy last year. She is asymptomatic from carotid disease at this time. She had her routine follow-up ultrasound which shows increased velocity in the proximal portion of her common carotid artery. This appears to be before the endarterectomy starts. Admission Exam Per Admitting Provider On exam she is awake alert and oriented x3. Blood pressure 150/60 on the right 154/58 on the left. Her radials carotids are +2 bilaterally. There is a left carotid bruit audible. Her neck incision is well-healed. The lungs are clear. Heart irregular rate and rhythm. Abdominal exam is benign. Femorals are +2 estefany aterally. Neurologic exam is grossly intact to motor and sensory function. Principal Diagnosis 1. s/p L TCAR 2. Severe L ICA stenosis Discharge Exam Constitutional WD/WN, vitals as above Respiratory normal respiratory effort; no respiratory distress Cardiovascular Rate/Rhythm: regular rate and regular rhythm Musculoskeletal Extremities: strength 5/5 throughout Skin + incision (ecchymosis around wound noted) Neurologic CN's II-XI intact bilaterally and moves all extremities Psychiatric Orientation: alert and oriented x 3 Discharge Data Allergies Allergy/AdvReac Type Severity Reaction Status Date / Time adhesive Allergy Intermediate HIVES Verified 07/26/22 08:30 Consultations 07/27/22 04:28 Consult Director Of Operations For Therapy Routine Procedures Performed Operation Date: 07/26/22 10:20 Actual Procedures p Left Transcarotid Artery Revascularization(Left) - Pancho Whalen MD Ordered Studies 07/26/22 07:27 EV angio carotid external LT Routine US EV guide vascular access Routine Hospital Course (1) Stenosis of left internal carotid artery: Post op day #1 from left tcar. Doing well. D/c home today Total Time Total Time Spent Total Time Spent (In Minutes): 0 Discharge Plan Discharge Items Patient Disposition: Home - Self-Care Reason For Visit: Left Internal Carotid Artery Stenosis Discharge Diagnosis: Left internal carotid artery stenosis, post tcar Activity: Per Instructions section Non-emergency contact: Surgeon Call non-emergency contact if: your temperature is above 101.5, your wound has increased redness, your wound has increased drainage and your wound pain has increased Follow-up/Referrals: Rhys Humphrey MD [Primary Care Provider] - Diet: Heart Healthy Addtl Attending Provider Instructions: SPECIAL CARE INSTRUCTIONS: Medications: * Continue to take Aspirin, Plavix, and Lipitor as directed(mandatory) . Incision Care: * You may shower, but do not rub incision. You may let the warm soapy water run over it. Be sure to dry the incision well after bathing. * Do not shave directly over the incision until it is healed. * DO NOT IMMERSE THE INCISION IN A TUB/POOL/etc. UNTIL HEALED. Restrictions: * Do not drive for at least one week or if you are still taking any narcotic pain medication. * Do not lift anything heavier than a gallon of milk for one week after going home. Possible Complications: * Numbness - It is normal to have some numbness around the incision. Numbness can extend beyond the incision to areas of the neck, ear and face. The numbness is due to bruising of nerves during the surgery and will gradually improve over a period of months. * Hoarseness/Difficulty Speaking and Swallowing - The bruising of nerves in the neck can also cause a hoarse voice, difficulty speaking or swallowing. This may improve over time, HOWEVER, if it continues for more than a few days please contact our office ([phone]). * Excessive Swelling - There will be some swelling immediately after surgery which usually resolves within one week. If you notice that the swelling is getting worse, notify your surgeon ([phone]). * Drainage/Bleeding - If there is any drainage or bleeding, it should be a very small amount (less than a teaspoon per day). If you have excessive bleeding or drainage from the incision, call your surgeon ([phone]) right away. ACTIVATION OF EMERGENCY MEDICAL SYSTEM: Call 911, immediately, if you experience any of the following: Warning Signs and Symptoms of Stroke: * Sudden numbness or weakness of the face, arm or leg, especially on one side of the body * Sudden confusion, trouble speaking or understanding * Sudden trouble seeing in one or both eyes * Sudden trouble walking, dizziness, loss of balance or coordination * Sudden severe headache with no cause Do not delay calling 911 if you experience any warning signs or symptoms of a st roke. Delay in seeking medical attention may affect what treatments can be given to you. Risk Factors for Stroke: You can reduce your chances of stroke by working with your medical provider to adopt a healthy lifestyle. Some specific ways to lower your chance of stroke are: * If you are a smoker, now is the time to stop smoking cigarettes * If you are diabetic, improve the control of your blood sugars * Avoid excessive amounts of alcohol * Control high blood pressure * Lose weight if you are overweight * Be sure to lead an active lifestyle * Eat a healthy diet low in salt, cholesterol and fat You should know about other risk factors for stroke that you are unable to control. These include: * Age 55 years or older * Male gender * Certain racial groups: , or / * Family History of Stroke, Mini stroke or Heart Attack * Sickle Cell Disease You will be receiving a call from the Vascular Surgery Nurse after you are discharged. FOLLOW UP VISIT: It is important for you to keep your follow up appointments with your medical provider. Keep any scheduled doctor appointments. Pending Studies at Discharge: No Stand-Alone Forms: My [facility], Smoking Cessation Medications and DC Order Prescriptions: New oxycodone-acetaminophen [Percocet] 5-325 mg tablet 1 tab PO Q6H PRN (Reason: pain) Qty: 20 0RF Continued atorvastatin [Lipitor] 40 mg tablet 40 mg PO QAM hydralazine 25 mg tablet 25 mg PO BID montelukast [Singulair] 10 mg tablet 10 mg PO QAM losartan [Cozaar] 100 mg tablet 100 mg PO QAM multivitamin Tablet 1 tab PO QAM albuterol sulfate 2.5 mg /3 mL (0.083 %) solution for nebulization 2.5 mg inhalation Q4 PRN (Reason: Shortness Of Breath Or Wheezing) amlodipine [Norvasc] 10 mg tablet 10 mg PO QAM albuterol sulfate 90 mcg/actuation HFA aerosol inhaler 2 puff INHALATION Q4 PRN (Reason: Shortness Of Breath Or Wheezing) omega 5-qmj-yht-fish oil [Fish Oil] 1,000 mg (120 mg-180 mg) Capsule 1 cap PO BID ferrous sulfate 325 mg (65 mg iron) Tablet,Delayed Release (Dr/Ec) 325 mg PO BID Aspir-81 81 Plavix furosemide 40 mg tablet 40 mg PO QAM Rx Instructions: may take 1 tablet additional for weight gain or sob Discharge Orders: Discharge Order (Routine); Ordered 07/27/22 Ordered By: Pancho Mulligan/Other Patient Handouts: Understanding Deep Vein Thrombosis, DVT Complications, DVT Post Op Prevention, Preventing Deep Vein Thrombosis Admission Data Admit Date/Time: 07/26/22 10:10 Attending Provider: Pancho Whalen Admit Provider: Pancho Whalen Primary Care Provider: Rhys Humphrey Other Providers: James Krishna Other Interventions: Discharge Summary Assessment (RN) Last Done: 07/27/22 13:04
== END 2022-07-27 13:51 | disposition home or self-care (01) | DRG 35 ==
LOC: ASU 08:05 → PACUINP 10:10 → 1E 18:10
PROC: EV.TCAR (2022-07-26 10:20)
DX: I65.22 Occlusion and stenosis of left carotid artery; Z86.73 Personal history of transient ischemic attack (TIA), and cerebral infarction without residual deficits; J44.9 Chronic obstructive pulmonary disease, unspecified; K21.9 Gastro-esophageal reflux disease without esophagitis; Z86.16 Personal history of COVID-19; J96.11 Chronic respiratory failure with hypoxia; I25.2 Old myocardial infarction; I50.32 Chronic diastolic (congestive) heart failure; R73.03 Prediabetes

== ENCOUNTER 2023-08-12 14:29 | Inpatient (IN) ==
[2023-08-12] MEDS ORDERED: ALBUT/IPRATROP 3MG/0.5MG NEB 3 ML VIAL NEB STA (14:56)
--- NOTE | 2023-08-12 14:59 | Emergency Department Note ---
Impression & Plan Acute hypoxic respiratory failure, Shortness of breath, Elevated brain natriuretic peptide (BNP) level ED Provider Note HISTORY OF PRESENT ILLNESS: Patient is an 82-year-old female presenting with shortness of breath and cough. Patient had a bronchoscopy 2 days ago at [facility]. She had biopsies performed of her left lung and her right lung. She states that since yesterday she has been having significant pain in her right lower chest and has been having a nonproductive cough. Reports she feels very short of breath. Family at bedside reports that since waking up this morning the patient has been very confused. She is not acting like her normal self. This patient does not wear any supplemental oxygen at baseline. She takes Plavix daily for previous history of carotid endarterectomy. However, she was off of her Plavix for the last 5 days. No reported fevers. No reported recent sick contact exposures. Patient denies any DVT or PE history. She denies any substernal chest pain at this time. Denies any history of cardiac stents. On EMS arrival, patient was found to be hypoxic on room air to 80%. ROS: as above PHYSICAL EXAM: Constitutional: Patient appears in no acute distress. HENT: Head: Normocephalic and atraumatic. Eyes: EOMI, PERRL Mouth/Throat: Mucous membranes moist. Neck: Trachea midline. Neck supple. Cardiovascular: RRR, No murmurs, rubs or gallops. Intact distal pulses. Pulmonary/Chest: No respiratory distress. Breath sounds clear and equal bilaterally. No wheezes or rales. Abdominal: Abdomen soft, no tenderness, rebound or guarding. Musculoskeletal: No edema, tenderness or deformity noted. Skin: Warm and dry. No rash, erythema, pallor or cyanosis Psychiatric: Appropriate mood and affect for situation. Neurological: Alert and keenly responsive. CN II-XII grossly intact, moving all extremities equally and fully. MDM: - Vitals signs showed hypertension and hypoxia. - History obtained via patient. Patient presents with shortness of breath and cough. Patient had a bronchoscopy 2 days ago at [facility]. She had biopsies for her left lung and right lung nodules. She states that since yesterday she has been having significant pain in her right lower chest and having a nonproductive cough. She feels very short of breath. Family at bedside reports the patient was confused this morning and not acting like her normal self. She does not wear any supplemental oxygen at baseline. She takes Plavix daily but was off it for 5 days prior to her procedure. No reported fevers. Denies any DVT or PE history denies any history of cardiac stents - Chronic conditions affecting care: non-Hodgkin's lymphoma; COPD; HTN; HLD; carotid artery stenosis - Differential diagnoses include, but are not limited to: Congestive heart failure; acute coronary syndrome; COPD/asthma exacerbation; pulmonary edema; pulmonary embolism; pneumonia; pneumothorax; viral syndrome - Order placed for continuous cardiac monitoring. At this time, monitor showed rate of 88 bpm with normal sinus rhythm, per my interpretation. - External medical records reviewed. EMS run sheet was reviewed. Patient was hypoxic to 80% on room air. - EKG reviewed by myself showed normal sinus rhythm. Rate 88 bpm. QTc 481. No acute ischemic changes - Laboratory workup interpreted by myself showed normal WBC; chronic anemia; stable electrolytes; elevated BNP (259); elevated troponin (14.5); normal magnesium - UA negative for infection - VBG negative - CXR showed bibasilar densities, per my interpretation - CT PE negative for PE. Noted to have bilateral hilar lymphadenopathy. Consolidation in the left lower lobe with partial opacification of the left lower lobe bronchus concerning for postoperative pneumonitis versus aspiration pneumonitis. - Patient given duoneb in ER. - Patient still having significant increased respiratory effort and pain with inspiration. Concern for possible aspiration pneumonitis. She is still requiring supplemental oxygen. Will admit to the hospitalist service for further evaluation - Discussion was had with dialysis patient care technician about patient's case and need for admission - Hospitalist consulted for admission - Patient admitted to [facility] hospitalist service for further evaluation and management. ASSESSMENT AND PLAN: Diagnosis: Acute hypoxic respiratory failure; shortness of breath; chest pain; elevated BNP Plan: admit Past Med/Surg History Medical History Aortic stenosis Mild aortic stenosis per 12/29/21 echo Carotid artery stenosis s/p right (5+ years ago)/left (2020) carotid endarterectomy Chronic anemia chronic, baseline hgb 10-11 range per chart review Chronic diastolic heart failure COPD (chronic obstructive pulmonary disease) Stable Depression GERD (gastroesophageal reflux disease) History of COVID-19 2+ years ago > no further issues Hyperlipidemia Hypertension Lymphoma Myocardial Infarction Several years ago Nocturnal hypoxemia Non-Hodgkin lymphoma ISELA (obstructive sleep apnea) Not currently using CPAP due to recall Prediabetes Thyroid nodule Under surveillance TIA (transient ischemic attack) 10 years ago, 03/11/21 > follows with [facility] Surgical History H/O carotid endarterectomy Right History of colonoscopy History of esophagogastroduodenoscopy (EGD) History of hysterectomy History of left hip replacement History of left-sided carotid endarterectomy Family History Other No family history of adverse response to anesthesia Stroke Social History Smoking Status: Former smoker Second Hand Exposure: No; Do You Dip or Chew Tobacco: No; Hx Alcohol Use: No Hx Substance Use: No Preferred Language: Guatemalan Communication Ability: Effective Line Maintainer Required: No Beliefs That Will Affect Care: None marital status: Unknown Current Living Situation: Alone Current Living Situation Comment: [facility] current occupational status: retired Feels Safe at Home: Yes Assistive Devices: CPAP, Oxygen - at Night and Walker Allergies Allergies Allergy/AdvReac Type Severity Reaction Status Date / Time adhesive Allergy Intermediate HIVES Verified 08/12/23 18:14 Home Meds Home Medications Medication Instructions Recorded Confirmed albuterol sulfate 90 mcg/actuation 2 puff inhalation Q4 PRN Shortness 09/18/19 08/12/23 aerosol inhaler Of Breath Or Wheezing atorvastatin 40 mg tablet (Lipitor) 40 mg PO QAM 09/18/19 08/12/23 montelukast 10 mg tablet 10 mg PO QAM 09/18/19 08/12/23 (Singulair) omega 4-usy-myg-fish oil 1,000 mg 1 cap PO QAM 09/18/19 08/12/23 (120 mg-180 mg) capsule (Fish Oil) furosemide 40 mg tablet 40 mg PO QAM 03/09/21 08/12/23 ferrous sulfate 325 mg (65 mg 325 mg PO DAILY 07/03/22 08/12/23 iron) tablet,delayed release acetaminophen 325 mg tablet 325 mg PO Q6H PRN Pain 08/12/23 08/12/23 (Tylenol) amoxicillin 875 mg-potassium 1 tab PO BID 08/12/23 08/12/23 clavulanate 125 mg tablet aspirin 81 mg tablet,delayed 81 mg PO DAILY 08/12/23 08/12/23 release benzonatate 100 mg capsule 100 mg PO TID PRN Cough 08/12/23 08/12/23 cgjdhkf-vxqqrzsjp-rqpl 333 mg-133 1 tab PO DAILY 08/12/23 08/12/23 mg-5 mg tablet clobetasol 0.05 % topical cream 1 applic topical DIRECTED 08/12/23 08/12/23 clopidogrel 75 mg tablet (Plavix) 75 mg PO DAILY 08/12/23 08/12/23 conjugated estrogens 0.625 mg/gram 500 mg vaginal 2XWK 08/12/23 08/12/23 vaginal cream (Premarin) cranberry 500 mg capsule 500 mg PO BID 08/12/23 08/12/23 diclofenac sodium 1 % topical gel 2 g topical DAILY PRN SHOULDER PAIN 08/12/23 08/12/23 docusate sodium 100 mg capsule 200 mg PO BID PRN Constipation 08/12/23 08/12/23 famotidine 20 mg tablet (Pepcid) 20 mg PO BID PRN Heartburn 08/12/23 08/12/23 fluticasone furoate 100 1 inh inhalation DAILY 08/12/23 08/12/23 mcg/actuation blister powder for inhalation (Arnuity Ellipta) fluticasone propionate 50 2 spray intranasal DAILY 08/12/23 08/12/23 mcg/actuation nasal spray,suspension gabapentin 300 mg capsule 900 mg PO HS 08/12/23 08/12/23 ipratropium 0.5 mg-albuterol 3 mg 3 ml inhalation Q6H PRN Shortness 08/12/23 08/12/23 (2.5 mg base)/3 mL nebulization Of Breath Or Wheezing soln loratadine 10 mg tablet (Claritin) 10 mg PO DAILY 08/12/23 08/12/23 losartan 50 mg tablet 50 mg PO DAILY 08/12/23 08/12/23 meclizine 12.5 mg tablet 12.5 mg PO TID PRN Dizziness 08/12/23 08/12/23 menthol 0.44 %-zinc oxide 20.6 % 1 applic topical QID PRN AFFECTED 08/12/23 08/12/23 topical ointment (Calmoseptine) AREA-VAGINAL AREA vpcmgztkhtaf-vukwgzrr-nlkzdv tablet 1 tab PO DAILY 08/12/23 08/12/23 pantoprazole 40 mg tablet,delayed 40 mg PO DAILY 08/12/23 08/12/23 release ramelteon 8 mg tablet 8 mg PO HS 08/12/23 08/12/23 umeclidinium 62.5 mcg-vilanterol 1 inh inhalation DAILY 08/12/23 08/12/23 25 mcg/actuation powdr for inhalation (Anoro Ellipta) Results & Data (ED) Vital Signs Vital Signs - 24 hr 08/12/23 14:35 08/12/23 15:42 08/12/23 15:43 Temperature 36.5 C Temperature Source Oral Pulse Rate 89 82 Pulse Rate [Apical] Respiratory Rate 25 H Respiratory Effort / Characteristics Non-Labored Spontaneous Respiratory Depth Normal Respiratory Pattern Tachypnea Blood Pressure 169/64 H Blood Pressure [Right Arm] Blood Pressure Mean 99 Blood Pressure Mean [Right Arm] Blood Pressure Position [Right Arm] Pulse Oximetry 95 96 Oxygen Delivery Method Nasal Cannula Nasal Cannula Oxygen Flow Rate 4 4 Sepsis Recent Fever Within 48 Hours No Sepsis New/Unexplained Change in Mental Status No Sepsis Action Taken by Nursing No Action Required Oxygen Flow Rate - Titration Pulse Oximetry Post Tiitration 08/12/23 15:43 08/12/23 16:13 08/12/23 18:00 Temperature Temperature Source Pulse Rate 83 Pulse Rate [Apical] 88 91 H Respiratory Rate 22 18 22 Respiratory Effort / Characteristics Non-Labored Respiratory Depth Normal Respiratory Pattern Blood Pressure Blood Pressure [Right Arm] 144/76 H 176/75 H Blood Pressure Mean Blood Pressure Mean [Right Arm] 98 108 Blood Pressure Position [Right Arm] Lying Pulse Oximetry 96 96 Oxygen Delivery Method Nasal Cannula Nasal Cannula Oxygen Flow Rate 4 4 Sepsis Recent Fever Within 48 Hours Sepsis New/Unexplained Change in Mental Status Sepsis Action Taken by Nursing Oxygen Flow Rate - Titration Pulse Oximetry Post Tiitration 08/12/23 18:06 08/12/23 19:17 Temperature Temperature Source Pulse Rate Pulse Rate [Apical] 88 Respiratory Rate 22 Respiratory Effort / Characteristics Respiratory Depth Normal Respiratory Pattern Blood Pressure Blood Pressure [Right Arm] 182/75 H Blood Pressure Mean Blood Pressure Mean [Right Arm] 110 Blood Pressure Position [Right Arm] Sitting Pulse Oximetry 87 L 98 Oxygen Delivery Method Nasal Cannula Nasal Cannula Oxygen Flow Rate 0 4 Sepsis Recent Fever Within 48 Hours Sepsis New/Unexplained Change in Mental Status Sepsis Action Taken by Nursing Oxygen Flow Rate - Titration 4 Pulse Oximetry Post Tiitration 94 Laboratory Data 08/12/23 15:24 08/12/23 15:24 Lab Results 08/12/23 08/12/23 Range/Units 15:24 Unknown WBC 8.63 (4.8-10.8) K/ul RBC 3.52 L (4.20-5.40) M/uL Hgb 9.4 L (12.0-16.0) g/dl Hct 31.3 L (37.0-47.0) % MCV 88.9 (80.0-100.0) fL MCH 26.7 (25.0-34.0) pg MCHC 30.0 L (32.0-36.0) g/dL RDW Std Deviation 42.3 (36.4-46.3) fL RDW Coeff of Ad 12.9 (11.5-14.5) % Plt Count 426 H (130-400) K/uL MPV 8.8 L (9.4-12.4) fL Immature Gran % (Auto) 0.3 % Neut % (Auto) 68.6 % Lymph % (Auto) 16.5 % Oliver % (Auto) 8.9 % Eos % (Auto) 4.9 % Baso % (Auto) 0.8 % Neut # (Auto) 5.92 (1.40-6.50) K/uL Lymph # (Auto) 1.42 (1.20-3.40) K/uL Oliver # (Auto) 0.77 H (0.11-0.59) K/uL Eos # (Auto) 0.42 (0.00-0.50) K/uL Baso # (Auto) 0.07 (0.00-0.20) K/uL Immature Gran # (Auto) 0.03 (0.01-0.20) K/uL PT 11.7 (9.0-12.0) Seconds INR 1.1 (0.9-1.1) VBG pH 7.42 H (7.36-7.41) VBG pCO2 51 H (38-50) mmHg VBG pO2 34 mmHg VBG HCO3 33 mmol/L VBG O2 Saturation < 60.0 % VBG Base Excess 7.2 mEq/L Sodium 139 (136-145) mmol/L Potassium 3.8 (3.5-5.1) mmol/L Chloride 102 (98-107) mmol/L Carbon Dioxide 31 (21-32) mmol/L Anion Gap 6 (3-11) BUN 26 H (6-23) mg/dl Creatinine 0.74 (0.6-1.2) mg/dl Est Cr Clr Drug Dosing 55.3 ml/min Est GFR ( Amer) 86.2 ml/min Est GFR (Non-Af Amer) 74.4 ml/min BUN/Creatinine Ratio 35.1 H (10-20) Glucose 124 H (70-99(Fasting)) mg/dl Calcium 8.9 (8.6-10.3) mg/dl Magnesium 1.9 (1.7-2.4) mg/dl Total Bilirubin 0.3 (0.2-1.0) mg/dl AST 14 (13-39) U/L ALT 10 (7-52) U/L Alkaline Phosphatase 55 (34-104) U/L Troponin I High Sens 14.5 H (0-14) pg/ml B-Natriuretic Peptide 259 H (0-100) pg/ml Total Protein 6.5 (6.0-8.3) gm/dl Albumin 3.6 (3.4-5.0) gm/dl Globulin 2.9 (2.5-4.0) gm/dl Albumin/Globulin Ratio 1.2 (0.9-2) Urine Color Yellow Urine Appearance Clear (Clear) Urine pH 6.5 (4.5-7.5) Ur Specific Windber 1.012 (1.000-1.030) Urine Protein Negative (Negative) Urine Glucose (UA) Negative (Negative) Urine Ketones Negative (Negative) Urine Blood Negative (Negative) Urine Nitrite Negative (Negative) Urine Bilirubin Negative (Negative) Urine Urobilinogen Negative (Negative) Ur Leukocyte Esterase Negative (Negative) Administered Medications Discontinued Medications Albuterol (Albut/Ipratrop 3mg/0.5mg Neb 3 Ml Vial) 3 ml NEB NOW STA; Protocol Stop: 08/12/23 14:57 Last Admin: 08/12/23 15:28 Dose: 3 ml Documented By: MMG Ioversol (Optiray 320 500ml) 115 ml IV ONCE ONE Stop: 08/12/23 16:19 Last Admin: 08/12/23 16:19 Dose: 115 ml Documented By: EDK Imaging Data Radiologist's Impression: Chest X-Ray 08/12/23 14:44 XR chest 1V portable HISTORY: Dyspnea COMPARISON: Chest 07/12/2022. FINDINGS: No pneumothorax. Emphysema again noted. The heart is mildly enlarged. There is progressive interstitial thickening. The bones are osteopenic. There are patchy bibasilar densities most pronounced on the left. Suspect a trace left pleural effusion. IMPRESSION: 1. Interstitial thickening with patchy bibasilar densities most pronounced on the left. This could represent a pneumonia or mild pulmonary edema. 2. The cardiac silhouette is mildly enlarged. 3. Emphysema. ACT 112: Negative or not required by law. Electronically signed by: Pa Byrne M.D. 08/12/2023 3:29 PM Chest CTA 08/12/23 14:51 CHEST CTA for PULMONARY ARTERIES CT DOSE: 452.6 mGy.cm HISTORY: Cough. Shortness of breath. TECHNIQUE: Multiaxial CT images of the chest were performed following the intravenous administration of contrast to evaluate the pulmonary arteries. 3D/Maximal intensity projection images were also obtained. Sagittal and coronal reformations were also reviewed. A dose lowering technique was utilized adhering to the principles of ALARA. COMPARISON STUDY: None. FINDINGS: Calcified plaque within the normal caliber thoracic aorta. No evidence for an aortic dissection. The heart is mildly enlarged. No pleural or pericardial effusions. No filling defects within the pulmonary arteries to suggest a pulmonary embolus. No suspicious lytic are blastic osseous lesions. Limited views of the upper abdomen demonstrate normal liver, spleen, and adrenal glands. There is a 1 cm right thyroid nodule. There is mediastinal and bilateral hilar lymphadenopathy. This is most pronounced within the left hilum which demonstrates lobular soft tissue thickening within infrahilar location suspicious for lymphadenopathy/mass. Dominant right paratracheal lymph node measures 3.7 cm. No pneumothorax. Emphysema. Opacification of the proximal left lower lobe bronchi with partial opacification of the distal left lower lobe and right lower lobe bronchi. Mild bronchial wall thickening is noted. There is an 8 mm irregular nodule within the left upper lobe on image 167. Consolidation throughout the majority of the base of the left lower lobe. Nodular thickening is seen along the left lower lobe bronchovascular bundles. This is concerning for underlying malignancy. There are few tree-in-bud nodular opacities within the base of the right upper lobe with patchy groundglass densities. This favors a low-grade pneumonitis. IMPRESSION: 1. No evidence for a pulmonary embolus. 2. Mediastinal and bilateral hilar lymphadenopathy most pronounced on the left. There is also lobular masslike thickening within the left infrahilar location as described above. This is highly suspicious for an underlying malignancy. 2. Consolidation within the base of the left lower lobe with partial opacification of the left lower lobe bronchi. This could be due to postobstructive pneumonitis or an aspiration pneumonitis. There are also a few tree-in-bud nodular opacities within the base of the right lower lobe consistent with a bronchiolitis. 4. An 8 mm irregular nodule within the left upper lobe. This could represent a metastatic focus. Follow-up recommended to assess for stability. ACT 112: Negative or not required by law. Electronically signed by: Pa Byrne M.D. 08/12/2023 5:32 PM Discharge Plan Visit Data Chief Complaint: Shortness of Breath/Dyspnea Stated Complaint: SOB, UPPER GASTRIC PAIN ED Provider: Susan Neal Discharge Problem: Acute hypoxic respiratory failure, Shortness of breath, Elevated brain natriuretic peptide (BNP) level Forms Stand Alone Forms: My [facility] Prescriptions Prescriptions: No Action atorvastatin [Lipitor] 40 mg tablet 40 mg PO QAM montelukast [Singulair] 10 mg tablet 10 mg PO QAM albuterol sulfate 90 mcg/actuation HFA aerosol inhaler 2 puff INHALATION Q4 PRN (Reason: Shortness Of Breath Or Wheezing) omega 9-oui-klx-fish oil [Fish Oil] 1,000 mg (120 mg-180 mg) Capsule 1 cap PO QAM ferrous sulfate 325 mg (65 mg iron) Tablet,Delayed Release (Dr/Ec) 325 mg PO DAILY losartan 50 mg tablet 50 mg PO DAILY acetaminophen [Tylenol] 325 mg Tablet 325 mg PO Q6H PRN (Reason: Pain) ipratropium-albuterol [DuoNeb] 0.5 mg-3 mg(2.5 mg base)/3 mL Solution For Nebulization 3 ml INHALATION Q6H PRN (Reason: Shortness Of Breath Or Wheezing) clobetasol 0.05 % Cream 1 applic TOPICAL DIRECTED meclizine 12.5 mg Tablet 12.5 mg PO TID PRN (Reason: Dizziness) clopidogrel [Plavix] 75 mg Tablet 75 mg PO DAILY aspirin 81 mg Tablet,Delayed Release (Dr/Ec) 81 mg PO DAILY famotidine [Pepcid] 20 mg Tablet 20 mg PO BID PRN (Reason: Heartburn) benzonatate 100 mg capsule 100 mg PO TID PRN (Reason: Cough) pantoprazole 40 mg Tablet,Delayed Release (Dr/Ec) 40 mg PO DAILY Premarin 0.625 mg/gram cream 500 mg vaginal 2XWK Rx Instructions: SUNDAY & SUNDAY docusate sodium 100 mg Capsule 200 mg PO BID PRN (Reason: Constipation) gabapentin 300 mg Capsule 900 mg PO HS fluticasone propionate [Flonase] 50 mcg/actuation [place],Suspension 2 spray INTRANASAL DAILY Rx Instructions: administer into each nostril loratadine [Claritin] 10 mg Tablet 10 mg PO DAILY cranberry 500 mg Capsule 500 mg PO BID Rx Instructions: administer with meals amoxicillin-pot clavulanate 875-125 mg tablet 1 tab PO BID Rx Instructions: STARTED 08/10/23 FOR 10 DAYS Centrum Silver Tablet 1 tab PO DAILY hrfeehm-exiseqcgu-jatt 333-133-5 mg Tablet 1 tab PO DAILY ramelteon 8 mg tablet 8 mg PO HS diclofenac sodium [Voltaren] 1 % Gel 2 g TOPICAL DAILY PRN (Reason: SHOULDER PAIN) menthol-zinc oxide [Calmoseptine] 0.44-20.6 % Ointment 1 applic TOPICAL QID PRN (Reason: AFFECTED AREA-VAGINAL AREA) Anoro Ellipta 62.5-25 mcg/actuation Blister With Device 1 inh INHALATION DAILY Arnuity Ellipta 100 mcg/actuation Blister With Device 1 inh INHALATION DAILY furosemide 40 mg tablet 40 mg PO QAM Rx Instructions: may take 1 tablet additional for weight gain or sob Referrals Referrals: Rhys Humphrey MD [Primary Care Provider] -
--- NOTE | 2023-08-12 15:31 | XRay Report ---
XR chest 1V portable HISTORY: Dyspnea COMPARISON: Chest 07/12/2022. FINDINGS: No pneumothorax. Emphysema again noted. The heart is mildly enlarged. There is progressive interstitial thickening. The bones are osteopenic. There are patchy bibasilar densities most pronounc ed on the left. Suspect a trace left pleural effusion. IMPRESSION: 1. Interstitial thickening with patchy bibasilar densities most pronounced on the left. This could re present a pneumonia or mild pulmonary edema. 2. The cardiac silhouette is mildly enlarged. 3. Emphysema. ACT 112: Negative or not required by law. Electronically signed by: Pa Byrne M.D. 08/12/2023 3:29 PM
[2023-08-12 15:34] LABS: Base Excess VBG 7.2 mEq/L; HCO3 VBG 33 mmol/L; Oxygen Saturation VBG < 60.0 %; PCO2 VBG 51 mmHg (38-50); PO2 VBG 34 mmHg; pH VBG 7.42 (7.36-7.41)
[2023-08-12 15:39] LABS: Basophils # (auto) 0.07 K/uL (0.00-0.20); Basophils % (auto) 0.8 %; Eosinophils # (auto) 0.42 K/uL (0.00-0.50); Eosinophils % (auto) 4.9 %; Hematocrit (blood only) 31.3 % (37.0-47.0); Hemoglobin 9.4 g/dl (12.0-16.0); Immature Granulocytes # (auto) 0.03 K/uL (0.01-0.20); Immature Granulocytes % (auto) 0.3 %; Lymphocytes # (auto) 1.42 K/uL (1.20-3.40); Lymphocytes % (auto) 16.5 %; Mean Corpuscular Hemoglobin 26.7 pg (25.0-34.0); Mean Corpuscular Volume 88.9 fL (80.0-100.0); Mean Platelet Volume 8.8 fL (9.4-12.4); Monocytes # (auto) 0.77 K/uL (0.11-0.59); Monocytes % (auto) 8.9 %; Neutrophils # (auto) 5.92 K/uL (1.40-6.50); Neutrophils % (auto) 68.6 %; Platelet Count 426 K/uL (130-400); RDW Coefficient of Variation 12.9 % (11.5-14.5); RDW Standard Deviation 42.3 fL (36.4-46.3); Red Blood Count 3.52 M/uL (4.20-5.40); White Blood Count 8.63 K/ul (4.8-10.8)
[2023-08-12 15:39] LABS: Appearance Urine Clear (Clear); Bilirubin Urine Negative (Negative); Blood Urine Negative (Negative); Color Urine Yellow; Glucose Urine UA Negative (Negative); Ketones Urine Negative (Negative); Leukocyte Esterase Urine Negative (Negative); Nitrite Urine Negative (Negative); Protein Urine Negative (Negative); Specific Gravity Urine 1.012 (1.000-1.030); Urobilinogen Urine Negative (Negative); pH Urine 6.5 (4.5-7.5)
[2023-08-12 15:55] LABS: Albumin Globulin Ratio 1.2 (0.9-2); Albumin Level 3.6 gm/dl (3.4-5.0); BUN Creatinine Ratio 35.1 (10-20); Bilirubin,Total 0.3 mg/dl (0.2-1.0); Calcium 8.9 mg/dl (8.6-10.3); Creatinine Clr Calc Pharmacy 55.3 ml/min; Est GFR (African American) 86.2 ml/min; Est GFR (Non-African American) 74.4 ml/min; Globulin 2.9 gm/dl (2.5-4.0); Magnesium 1.9 mg/dl (1.7-2.4); Potassium 3.8 mmol/L (3.5-5.1); Total Protein 6.5 gm/dl (6.0-8.3)
[2023-08-12 16:01] LABS: Troponin I High Sensitivity 14.5 pg/ml (0-14)
[2023-08-12 16:04] LABS: INR 1.1 (0.9-1.1); Prothrombin Time 11.7 Seconds (9.0-12.0)
[2023-08-12] MEDS ORDERED: OPTIRAY 320 500ml IV ONE (16:18)
--- NOTE | 2023-08-12 17:34 | CT Scan Report ---
CHEST CTA for PULMONARY ARTERIES CT DOSE: 452.6 mGy.cm HISTORY: Cough. Shortness of breath. TECHNIQUE: Multiaxial CT images of the chest were performed following the intravenous administration of contrast to evaluate the pulmonary arteries. 3D/Maximal intensity projection images were also obta ined. Sagittal and coronal reformations were also reviewed. A dose lowering technique was utilized a dhering to the principles of ALARA. COMPARISON STUDY: None. FINDINGS: Calcified plaque within the normal caliber thoracic aorta. No evidence for an aortic dissec tion. The heart is mildly enlarged. No pleural or pericardial effusions. No filling defects within th e pulmonary arteries to suggest a pulmonary embolus. No suspicious lytic are blastic osseous lesions. Limited views of the upper abdomen demonstrate normal liver, spleen, and adrenal glands. There is a 1 cm right thyroid nodule. There is mediastinal and bilateral hilar lymphadenopathy. This is most pro nounced within the left hilum which demonstrates lobular soft tissue thickening within infrahilar loc ation suspicious for lymphadenopathy/mass. Dominant right paratracheal lymph node measures 3.7 cm. No pneumothorax. Emphysema. Opacification of the proximal left lower lobe bronchi with partial opacific ation of the distal left lower lobe and right lower lobe bronchi. Mild bronchial wall thickening is n oted. There is an 8 mm irregular nodule within the left upper lobe on image 167. Consolidation throug hout the majority of the base of the left lower lobe. Nodular thickening is seen along the left lower lobe bronchovascular bundles. This is concerning for underlying malignancy. There are few tree-in-bu d nodular opacities within the base of the right upper lobe with patchy groundglass densities. This f avors a low-grade pneumonitis. IMPRESSION: 1. No evidence for a pulmonary embolus. 2. Mediastinal and bilateral hilar lymphadenopathy most pronounced on the left. There is also lobular masslike thickening within the left infrahilar location as described above. This is highly suspiciou s for an underlying malignancy. 2. Consolidation within the base of the left lower lobe with partial opacification of the left lower lobe bronchi. This could be due to postobstructive pneumonitis or an aspiration pneumonitis. There ar e also a few tree-in-bud nodular opacities within the base of the right lower lobe consistent with a bronchiolitis. 4. An 8 mm irregular nodule within the left upper lobe. This could represent a metastatic focus. Foll ow-up recommended to assess for stability. ACT 112: Negative or not required by law. Electronically signed by: Pa Byrne M.D. 08/12/2023 5:32 PM
--- NOTE | 2023-08-12 20:15 | History & Physical Report ---
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 Acute hypoxic Respiratory failure s/p bronchoscopy 08/10/2023 Aspiration Pneumonia Per pt and family, had bronch on 08/10, with coughing fit and hypoxia when waking up from anesthesia Was discharged with Augmentin, has taken two doses with persistent cough hurting her ribs Does not use oxygen at baseline, hypoxic to the 80s in the ambulance and ED CT chest concerning for malignancy, noted possible aspiration pneumonia/pneumonitis and mediastinal lymphadenopathy, no PE EPIC chart review notes bronchial culture growing > 100, 000 colonies of moraxella catarrhalis. Surgical pathology still in process Hold home augmentin, start Zosyn Supplement oxygen as needed Pulmonology consult- appreciate recs CHF, diastolic BNP elevated to 259 hs-trop slightly elevated at 14, trend q6h EPIC chart review shows echo in July with no significant change from her last, noted valvular pathology Repeat echo ordered in setting of acute hypoxic change, low suspicion cardiac related Follows with Cardiology, Dr. 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 Daughter and granddaughter at bedside, providing some of the history. They state that she had a bronchoscopy 2 days ago at [facility] for noted lung changes that they are aware of. Notes she was wheeled back after getting into the PACU after the procedure as she had a coughing fit and hypoxic episodes then as well. Was given antibiotics to take at home. States she took 2 doses of the Augmentin. However the coughing fits persist and hurt her ribs. Needs to use a pillow to help. Also gets some relief from tessalon pearles. Notes she smoked from age 14 and quit in 2003, continued to be around second hand smoke. 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 Notes she does not use oxygen at home and never qualified for it. States that she was told she needs it now. Hx of ISELA but states her cpap machine was recalled. Currently being worked up by pulmonology. Allergies Allergy/AdvReac Type Severity Reaction Status Date / Time adhesive Allergy Intermediate HIVES Verified 08/12/23 18:14 Home Medications Medication Instructions Recorded Confirmed Type albuterol sulfate 90 mcg/actuation 2 puff inhalation Q4 PRN Shortness 09/18/19 08/12/23 History aerosol inhaler Of Breath Or Wheezing atorvastatin 40 mg tablet (Lipitor) 40 mg PO QAM 09/18/19 08/12/23 History montelukast 10 mg tablet 10 mg PO QAM 09/18/19 08/12/23 History (Singulair) omega 3-foo-jgw-fish oil 1,000 mg 1 cap PO QAM 09/18/19 08/12/23 History (120 mg-180 mg) capsule (Fish Oil) furosemide 40 mg tablet 40 mg PO QAM 03/09/21 08/12/23 History ferrous sulfate 325 mg (65 mg 325 mg PO DAILY 07/03/22 08/12/23 History iron) tablet,delayed release acetaminophen 325 mg tablet 325 mg PO Q6H PRN Pain 08/12/23 08/12/23 History (Tylenol) amoxicillin 875 mg-potassium 1 tab PO BID 08/12/23 08/12/23 History clavulanate 125 mg tablet aspirin 81 mg tablet,delayed 81 mg PO DAILY 08/12/23 08/12/23 History release benzonatate 100 mg capsule 100 mg PO TID PRN Cough 08/12/23 08/12/23 History ihleodf-kzuxzylwi-qhrc 333 mg-133 1 tab PO DAILY 08/12/23 08/12/23 History mg-5 mg tablet clobetasol 0.05 % topical cream 1 applic topical DIRECTED 08/12/23 08/12/23 History clopidogrel 75 mg tablet (Plavix) 75 mg PO DAILY 08/12/23 08/12/23 History conjugated estrogens 0.625 mg/gram 500 mg vaginal 2XWK 08/12/23 08/12/23 History vaginal cream (Premarin) cranberry 500 mg capsule 500 mg PO BID 08/12/23 08/12/23 History diclofenac sodium 1 % topical gel 2 g topical DAILY PRN SHOULDER PAIN 08/12/23 08/12/23 History docusate sodium 100 mg capsule 200 mg PO BID PRN Constipation 08/12/23 08/12/23 History famotidine 20 mg tablet (Pepcid) 20 mg PO BID PRN Heartburn 08/12/23 08/12/23 History fluticasone furoate 100 1 inh inhalation DAILY 08/12/23 08/12/23 History mcg/actuation blister powder for inhalation (Arnuity Ellipta) fluticasone propionate 50 2 spray intranasal DAILY 08/12/23 08/12/23 History mcg/actuation nasal spray,suspension gabapentin 300 mg capsule 900 mg PO HS 08/12/23 08/12/23 History ipratropium 0.5 mg-albuterol 3 mg 3 ml inhalation Q6H PRN Shortness 08/12/23 08/12/23 History (2.5 mg base)/3 mL nebulization Of Breath Or Wheezing soln loratadine 10 mg tablet (Claritin) 10 mg PO DAILY 08/12/23 08/12/23 History losartan 50 mg tablet 50 mg PO DAILY 08/12/23 08/12/23 History meclizine 12.5 mg tablet 12.5 mg PO TID PRN Dizziness 08/12/23 08/12/23 History menthol 0.44 %-zinc oxide 20.6 % 1 applic topical QID PRN AFFECTED 08/12/23 08/12/23 History topical ointment (Calmoseptine) AREA-VAGINAL AREA lfxfulqcvucj-katkkgqf-vjgavu tablet 1 tab PO DAILY 08/12/23 08/12/23 History pantoprazole 40 mg tablet,delayed 40 mg PO DAILY 08/12/23 08/12/23 History release ramelteon 8 mg tablet 8 mg PO HS 08/12/23 08/12/23 History umeclidinium 62.5 mcg-vilanterol 1 inh inhalation DAILY 08/12/23 08/12/23 History 25 mcg/actuation powdr for inhalation (Anoro Ellipta) Past Med/Surg History Medical History History of COVID-19 2+ years ago > no further issues Chronic anemia chronic, baseline hgb 10-11 range per chart review Aortic stenosis Mild aortic stenosis per 12/29/21 echo Carotid artery stenosis s/p right (5+ years ago)/left (2020) carotid endarterectomy Thyroid nodule Under surveillance Myocardial Infarction Several years ago ISELA (obstructive sleep apnea) Not currently using CPAP due to recall TIA (transient ischemic attack) 10 years ago, 03/11/21 > follows with [facility] Prediabetes Depression Non-Hodgkin lymphoma Chronic diastolic heart failure Nocturnal hypoxemia Lymphoma GERD (gastroesophageal reflux disease) COPD (chronic obstructive pulmonary disease) Stable Hypertension Hyperlipidemia Surgical History History of left-sided carotid endarterectomy History of esophagogastroduodenoscopy (EGD) History of colonoscopy History of left hip replacement H/O carotid endarterectomy Right History of hysterectomy Family History Other No family history of adverse response to anesthesia Stroke Social History Smoking Status: Former smoker Second Hand Exposure: No; Do You Dip or Chew Tobacco: No; Hx Alcohol Use: No Hx Substance Use: No Preferred Language: Kazakh Communication Ability: Effective 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 No acute distress Skin: No noted rashes or bruises Psych: Appropriate mood and affect Neuro: No gross deficits HEENT: NC/AT Chest: Nontender to palpation. CV: RRR, blowing murmur appreciated Resp: Breath sounds with wheezing bilaterally, no increased effort of breathing on 4L NC Abdomen: Soft, nontender, nondistended. Extremities: edema in lower extremities bilaterally. Results & Data Results & Data Vital Signs (Past 12 Hours) Vital Signs Temp Pulse Pulse Resp BP BP Pulse Ox 08/12/23 19:17 88 22 182/75 H 98 08/12/23 18:06 87 L 08/12/23 18:00 91 H 22 176/75 H 08/12/23 16:13 88 18 144/76 H 96 08/12/23 15:43 83 22 96 08/12/23 15:43 96 08/12/23 15:42 82 08/12/23 14:35 36.5 C 89 25 H 169/64 H 95 O2 Del Method O2 Flow Rate 08/12/23 19:17 Nasal Cannula 4 08/12/23 18:06 Nasal Cannula 0 08/12/23 18:00 08/12/23 16:13 Nasal Cannula 4 08/12/23 15:43 Nasal Cannula 4 08/12/23 15:43 Nasal Cannula 4 08/12/23 15:42 08/12/23 14:35 Nasal Cannula 4 Diagnostic Findings Chest X-Ray 08/12/23 14:44 XR chest 1V portable HISTORY: Dyspnea COMPARISON: Chest 07/12/2022. FINDINGS: No pneumothorax. Emphysema again noted. The heart is mildly enlarged. There is progressive interstitial thickening. The bones are osteopenic. There are patchy bibasilar densities most pronounced on the left. Suspect a trace left pleural effusion. IMPRESSION: 1. Interstitial thickening with patchy bibasilar densities most pronounced on the left. This could represent a pneumonia or mild pulmonary edema. 2. The cardiac silhouette is mildly enlarged. 3. Emphysema. ACT 112: Negative or not required by law. Electronically signed by: Pa Byrne M.D. 08/12/2023 3:29 PM Chest CTA 11/12/23 14:51 CHEST CTA for PULMONARY ARTERIES CT DOSE: 452.6 mGy.cm HISTORY: Cough. Shortness of breath. TECHNIQUE: Multiaxial CT images of the chest were performed following the intravenous administration of contrast to evaluate the pulmonary arteries. 3D/Maximal intensity projection images were also obtained. Sagittal and coronal reformations were also reviewed. A dose lowering technique was utilized adhering to the principles of ALARA. COMPARISON STUDY: None. FINDINGS: Calcified plaque within the normal caliber thoracic aorta. No evidence for an aortic dissection. The heart is mildly enlarged. No pleural or pericardial effusions. No filling defects within the pulmonary arteries to suggest a pulmonary embolus. No suspicious lytic are blastic osseous lesions. Limited views of the upper abdomen demonstrate normal liver, spleen, and adrenal glands. There is a 1 cm right thyroid nodule. There is mediastinal and bilateral hilar lymphadenopathy. This is most pronounced within the left hilum which demonstrates lobular soft tissue thickening within infrahilar location suspic ious for lymphadenopathy/mass. Dominant right paratracheal lymph node measures 3.7 cm. No pneumothorax. Emphysema. Opacification of the proximal left lower lobe bronchi with partial opacification of the distal left lower lobe and right lower lobe bronchi. Mild bronchial wall thickening is noted. There is an 8 mm irregular nodule within the left upper lobe on image 167. Consolidation throughout the majority of the base of the left lower lobe. Nodular thickening is seen along the left lower lobe bronchovascular bundles. This is concerning for underlying malignancy. There are few tree-in-bud nodular opacities within the base of the right upper lobe with patchy groundglass densities. This favors a low-grade pneumonitis. IMPRESSION: 1. No evidence for a pulmonary embolus. 2. Mediastinal and bilateral hilar lymphadenopathy most pronounced on the left. There is also lobular masslike thickening within the left infrahilar location as described above. This is highly suspicious for an underlying malignancy. 2. Consolidation within the base of the left lower lobe with partial opacification of the left lower lobe bronchi. This could be due to postobstructive pneumonitis or an aspiration pneumonitis. There are also a few tree-in-bud nodular opacities within the base of the right lower lobe consistent with a bronchiolitis. 4. An 8 mm irregular nodule within the left upper lobe. This could represent a metastatic focus. Follow-up recommended to assess for stability. ACT 112: Negative or not required by law. Electronically signed by: Pa Byrne M.D. 08/12/2023 5:32 PM Code Status & VTE Plan VTE Prophylaxis Plan VTE Prophylaxis will be ordered: Yes
[2023-08-12] MEDS ORDERED: ACETAMINOPHEN 325 MG TAB PO PRN (22:23)
[2023-08-12] MEDS ORDERED: BENZONATATE 100 MG CAPSULE PO PRN (22:23)
[2023-08-12] MEDS ORDERED: MECLIZINE 12.5 MG TAB PO PRN (22:23)
[2023-08-12] MEDS ORDERED: FAMOTIDINE 20 MG TAB PO PRN (22:23)
[2023-08-12] MEDS ORDERED: ALBUTEROL HFA 8 GM INHALER INH PRN (22:23)
[2023-08-12] MEDS ORDERED: DOCUSATE SODIUM 100 MG CAP PO PRN (22:23)
[2023-08-12] MEDS ORDERED: PIPERACILLIN/TAZOBACTAM 4.5 GM/100 ML BAG IV ONE (23:15)
[2023-08-13] MEDS: GABAPENTIN 300 MG CAP PO SCH ×2 (00:32→20:51)
[2023-08-13] MEDS: ENOXAPARIN INJ 40 MG/0.4 ML SYR SQ SCH ×2 (00:33→20:51)
[2023-08-13] MEDS: ALBUT/IPRATROP 3MG/0.5MG NEB 3 ML VIAL NEB SCH ×7 (01:00→23:33)
[2023-08-13 04:26] LABS: Basophils # (auto) 0.07 K/uL (0.00-0.20); Eosinophils # (auto) 0.57 K/uL (0.00-0.50); Eosinophils % (auto) 8.1 %; Hematocrit (blood only) 29.1 % (37.0-47.0); Hemoglobin 8.8 g/dl (12.0-16.0); Immature Granulocytes # (auto) 0.03 K/uL (0.01-0.20); Immature Granulocytes % (auto) 0.4 %; Lymphocytes # (auto) 0.98 K/uL (1.20-3.40); Mean Corpuscular Hemoglobin 26.7 pg (25.0-34.0); Mean Corpuscular Hgb Conc 30.2 g/dL (32.0-36.0); Mean Corpuscular Volume 88.4 fL (80.0-100.0); Mean Platelet Volume 8.9 fL (9.4-12.4); Monocytes # (auto) 0.94 K/uL (0.11-0.59); Monocytes % (auto) 13.4 %; Neutrophils # (auto) 4.41 K/uL (1.40-6.50); Neutrophils % (auto) 63.1 %; Platelet Count 381 K/uL (130-400); RDW Coefficient of Variation 13.1 % (11.5-14.5); RDW Standard Deviation 42.5 fL (36.4-46.3); Red Blood Count 3.29 M/uL (4.20-5.40)
[2023-08-13 04:41] LABS: Albumin Globulin Ratio 1.2 (0.9-2); Albumin Level 3.2 gm/dl (3.4-5.0); Bilirubin,Total 0.2 mg/dl (0.2-1.0); Calcium 8.8 mg/dl (8.6-10.3); Creatinine Clr Calc Pharmacy 50.9 ml/min; Est GFR (African American) 86.2 ml/min; Est GFR (Non-African American) 74.4 ml/min; Globulin 2.6 gm/dl (2.5-4.0); Magnesium 1.9 mg/dl (1.7-2.4); Phosphorus 4.2 mg/dl (2.5-4.9); Potassium 3.8 mmol/L (3.5-5.1); Total Protein 5.8 gm/dl (6.0-8.3)
[2023-08-13] MEDS: PIPERACILLIN/TAZOBACTAM 4.5 GM in DEXTROSE 5% MINI-B 100 ML IV SCH ×3 (06:05→21:01)
--- NOTE | 2023-08-13 06:26 | Electrocardiogram Report ---
Test Reason : Blood Pressure : / mmHG Vent. Rate : 088 BPM Atrial Rate : 088 BPM P-R Int : 170 ms QRS Dur : 106 ms QT Int : 398 ms P-R-T Axes : 077 046 048 degrees QTc Int : 481 ms Normal sinus rhythm Moderate voltage criteria for LVH, may be normal variant ( Sokolow-Tracy , [place] product ) Borderline ECG When compared with ECG of 09-MAR-2021 18:45, No significant change was found Confirmed by Miguel Gibbons ([id number]) on 08/13/2023 6:26:01 AM Referred By: REFERRED SELF Confirmed By:Miguel Gibbons
[2023-08-13] MEDS: FLUTICASONE PROPIONATE NA SPR 16 GM BTL NAE SCH (07:48)
[2023-08-13] MEDS: UMECLIDINIUM/VILANTEROL 62.5/25MCG 7 PUFFS/INHALER INH SCH (07:48)
[2023-08-13] MEDS: PANTOprazole 40 MG TAB PO SCH (07:49)
[2023-08-13] MEDS: FLUTICASONE FUROATE 100MCG 14 PUFFS/INHALER INH SCH (07:49)
[2023-08-13] MEDS: LOSARTAN POTASSIUM 50 MG TAB PO SCH (07:49)
[2023-08-13] MEDS: LORATADINE 10 MG TAB PO SCH (07:49)
[2023-08-13] MEDS: CLOPIDOGREL BISULFATE 75 MG TAB PO SCH (07:49)
[2023-08-13] MEDS: FUROSEMIDE 40 MG TAB PO SCH (07:49)
[2023-08-13] MEDS: FERROUS SULFATE 325 MG TAB PO SCH (07:49)
[2023-08-13] MEDS: ATORVASTATIN 40 MG TAB PO SCH (07:50)
[2023-08-13] MEDS: ASPIRIN 81 MG ECTAB PO SCH (07:50)
[2023-08-13] MEDS: MONTELUKAST SODIUM 10 MG TABLET PO SCH (07:50)
--- NOTE | 2023-08-13 12:25 | Hospitalist Progress Note ---
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 Acute hypoxic Respiratory failure s/p bronchoscopy 08/10/2023 Aspiration Pneumonia Per pt and family, had bronch on 08/10, with coughing fit and hypoxia when waking up from anesthesia Was discharged with Augmentin, has taken two doses with persistent cough hurting her ribs Does not use oxygen at baseline, hypoxic to the 80s in the ambulance and ED CT chest concerning for malignancy, noted possible aspiration pneumonia/pneumonitis and mediastinal lymphadenopathy, no PE EPIC chart review notes bronchial culture growing > 100, 000 colonies of moraxella catarrhalis. Surgical pathology still in process Continue Zosyn Supplement oxygen as needed- wean as tolerated Pulmonology consult- appreciate recs CHF, diastolic BNP elevated to 259 hs-trop slightly elevated at 14, trend q6h EPIC chart review shows echo in July with no significant change from her last, noted valvular pathology Repeat echo with no significant change, EF 50-55% Cardiology follow up after discharge ISELA Not currently on CPAP at home Hx of carotid endarterectomy Follows with Vascular surgery Continue aspirin and plavix Continue other home medications DVT prophylaxis: Lovenox Diet: HH CODE STATUS: DNR/DNI Dispo: PT/OT ordered, will likely require 2-step before discharge, family requesting oxygen for home use Admission and Anticipated Discharge Date Admission Date: August 12, 2023 Subjective Pt seen in the AM, sitting at bedside eating. States she is feeling better but still coughing though not as much. Had not yet been evaluated by pulmonology. Review of Systems Review of Systems: All systems reviewed & are unremarkable except as noted in Subjective Physical Exam Physical Exam: General: Alert, oriented. No acute distress Skin: No noted rashes or bruises Psych: Appropriate mood and affect Neuro: No gross deficits HEENT: NC/AT Chest: Nontender to palpation. CV: RRR, blowing murmur appreciated Resp: Breath sounds with coarseness bilaterally Abdomen: Soft, nontender, nondistended. Extremities: edema in lower extremities bilaterally. Results & Data Results & Data Vital Signs (Past 12 Hours) Vital Signs Temp Pulse Pulse Resp BP Pulse Ox O2 Del Method 08/13/23 11:04 37.2 C 84 20 127/64 94 Nasal Cannula 08/13/23 10:05 91 H 20 94 Nasal Cannula 08/13/23 08:00 87 08/13/23 08:00 Nasal Cannula 08/13/23 07:05 82 20 95 Nasal Cannula 08/13/23 07:00 36.6 C 80 18 170/56 H 96 Nasal Cannula 08/13/23 04:00 37 C 81 20 147/56 H 95 Nasal Cannula 08/13/23 01:00 87 08/13/23 00:41 Nasal Cannula O2 Flow Rate 08/13/23 11:04 2 08/13/23 10:05 3 08/13/23 08:00 08/13/23 08:00 3 08/13/23 07:05 4 08/13/23 07:00 3 08/13/23 04:00 4 08/13/23 01:00 08/13/23 00:41 4
--- NOTE | 2023-08-13 15:10 | Consultation ---
Date of Consultation August 13, 2023 Assessment & Plan (1) Shortness of breath: 82 year old female former smoker, with COPD, patient of Pulmonary in [place] who presented with shortness of breath and hypoxia s/p bronch. Chest CT showed mediastinal lymphadenopathy and dense LLL consolidation. No prio r films available for comparison. Reportedly patient developed a cough after bronchoscopy which did not respond to outpatient augmentin. It is unclear if she has developed a pneumonia which accounts for her progressive respiratory symptoms over the last couple of days. There appears also to be a more chronic component where her overall respiratory status has gradually deterioated over the past few months/years. We have requested for her outside images. Will also reach out to her concessionist. Agree at this time with empiric antibiotics and follow up cultures. (2) Acute hypoxic respiratory failure: Titrate nasal cannula to keep sat >92%. Patient likely will need to be discharged home on oxygen. (3) COPD (chronic obstructive pulmonary disease): Agree with inahlers. No signs of COPD exacerbation and will hold off on steroids. (4) ISLEA (obstructive sleep apnea): (5) Non-Hodgkin lymphoma: (6) Abnormal chest CT: Probable pneumonia. Recommend de-escalating zosyn to ceftriaxone. Follow up cultures. 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 Per patient bronchoscopy was done 2 days [facility] at [place]. Reportedly in the PACU she had a coughing fit and was hypoxic. She was prescribed Augmentin which she took 2 doses. Former smoker Notes she smoked from age 14 and quit in 2003, continued to be around second hand smoke. 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 Hx of ISELA but states her cpap machine was recalled. Chest CT showed mediastinal lymphadenopathy and dense LLL consolidation. Allergies Allergy/AdvReac Type Severity Reaction Status Date / Time adhesive Allergy Intermediate HIVES Verified 08/12/23 18:14 Home Medications Medication Instructions Recorded Confirmed Type albuterol sulfate 90 mcg/actuation 2 puff inhalation Q4 PRN Shortness 09/18/19 08/12/23 History aerosol inhaler Of Breath Or Wheezing atorvastatin 40 mg tablet (Lipitor) 40 mg PO QAM 09/18/19 08/12/23 History montelukast 10 mg tablet 10 mg PO QAM 09/18/19 08/12/23 History (Singulair) omega 2-nse-bnl-fish oil 1,000 mg 1 cap PO QAM 09/18/19 08/12/23 History (120 mg-180 mg) capsule (Fish Oil) furosemide 40 mg tablet 40 mg PO QAM 03/09/21 08/12/23 History ferrous sulfate 325 mg (65 mg 325 mg PO DAILY 07/03/22 08/12/23 History iron) tablet,delayed release acetaminophen 325 mg tablet 325 mg PO Q6H PRN Pain 08/12/23 08/12/23 History (Tylenol) amoxicillin 875 mg-potassium 1 tab PO BID 08/12/23 08/12/23 History clavulanate 125 mg tablet aspirin 81 mg tablet,delayed 81 mg PO DAILY 08/12/23 08/12/23 History release benzonatate 100 mg capsule 100 mg PO TID PRN Cough 08/12/23 08/12/23 History tkbdbjj-gjhfjbryu-teyx 333 mg-133 1 tab PO DAILY 08/12/23 08/12/23 History mg-5 mg tablet clobetasol 0.05 % topical cream 1 applic topical DIRECTED 08/12/23 08/12/23 H istory clopidogrel 75 mg tablet (Plavix) 75 mg PO DAILY 08/12/23 08/12/23 History conjugated estrogens 0.625 mg/gram 500 mg vaginal 2XWK 08/12/23 08/12/23 History vaginal cream (Premarin) cranberry 500 mg capsule 500 mg PO BID 08/12/23 08/12/23 History diclofenac sodium 1 % topical gel 2 g topical DAILY PRN SHOULDER PAIN 08/12/23 08/12/23 History docusate sodium 100 mg capsule 200 mg PO BID PRN Constipation 08/12/23 08/12/23 History famotidine 20 mg tablet (Pepcid) 20 mg PO BID PRN Heartburn 08/12/23 08/12/23 History fluticasone furoate 100 1 inh inhalation DAILY 08/12/23 08/12/23 History mcg/actuation blister powder for inhalation (Arnuity Ellipta) fluticasone propionate 50 2 spray intranasal DAILY 08/12/23 08/12/23 History mcg/actuation nasal spray,suspension gabapentin 300 mg capsule 900 mg PO HS 08/12/23 08/12/23 History ipratropium 0.5 mg-albuterol 3 mg 3 ml inhalation Q6H PRN Shortness 08/12/23 08/12/23 History (2.5 mg base)/3 mL nebulization Of Breath Or Wheezing soln loratadine 10 mg tablet (Claritin) 10 mg PO DAILY 08/12/23 08/12/23 History losartan 50 mg tablet 50 mg PO DAILY 08/12/23 08/12/23 History meclizine 12.5 mg tablet 12.5 mg PO TID PRN Dizziness 08/12/23 08/12/23 History menthol 0.44 %-zinc oxide 20.6 % 1 applic topical QID PRN AFFECTED 08/12/23 08/12/23 History topical ointment (Calmoseptine) AREA-VAGINAL AREA sgfzxfubrjno-fsokqfez-fnxjtl tablet 1 tab PO DAILY 08/12/23 08/12/23 History pantoprazole 40 mg tablet,delayed 40 mg PO DAILY 08/12/23 08/12/23 History release ramelteon 8 mg tablet 8 mg PO HS 08/12/23 08/12/23 History umeclidinium 62.5 mcg-vilanterol 1 inh inhalation DAILY 08/12/23 08/12/23 History 25 mcg/actuation powdr for inhalation (Anoro Ellipta) Patient History Medical History History of COVID-19 2+ years ago > no further issues Chronic anemia chronic, baseline hgb 10-11 range per chart review Aortic stenosis Mild aortic stenosis per 12/29/21 echo Carotid artery stenosis s/p right (5+ years ago)/left (2020) carotid endarterectomy Thyroid nodule Under surveillance Myocardial Infarction Several years ago ISELA (obstructive sleep apnea) Not currently using CPAP due to recall TIA (transient ischemic attack) 10 years ago, 6/11/21 > follows with [facility] Prediabetes Depression Non-Hodgkin lymphoma Chronic diastolic heart failure Nocturnal hypoxemia Lymphoma GERD (gastroesophageal reflux disease) COPD (chronic obstructive pulmonary disease) Stable Hypertension Hyperlipidemia Surgical History History of left-sided carotid endarterectomy History of esophagogastroduodenoscopy (EGD) History of colonoscopy History of left hip replacement H/O carotid endarterectomy Right History of hysterectomy Family History Other No family history of adverse response to anesthesia Stroke Social History Smoking Status: Former smoker Smoking End Date: quit in 2003; Second Hand Exposure: No; Do You Dip or Chew Tobacco: No; Hx Alcohol Use: No Hx Substance Use: No Preferred Language: Arabic Communication Ability: Effective Cracker Off Required: No Beliefs That Will Affect Care: None marital status: Unknown Current Living Situation: Alone Current Living Situation Comment: lives in a senior apartment building current occupational status: retired Other Information That Helps Us Care for You: No Feels Safe at Home: Yes Safety Concerns: Feels Safe At This Time Assistive Devices: Walker Assistive Devices Comment: hearing aids at home Review of Systems Constitutional: no fever, no chills, no sweats and no weight loss Respiratory: + cough; no dyspnea and no hemoptysis Gastrointestinal: no nausea and no vomiting Neurologic: no generalized weakness, no headache(s) and no abnormal speech Physical Exam Constitutional: WD/WN, vitals as above Respiratory: Auscultation: + diminished lung sounds (LLL) and + rhonchi Cardiovascular: RRR, no murmur, no edema Results & Data Vital Signs (Past 12 Hours) Vital Signs Temp Pulse Pulse Resp BP Pulse Ox Pulse Ox 08/13/23 14:57 78 18 93 08/13/23 14:22 92 08/13/23 13:36 92 08/13/23 11:04 37.2 C 84 20 127/64 94 08/13/23 10:05 91 H 20 94 08/13/23 08:00 87 08/13/23 08:00 08/13/23 07:05 82 20 95 08/13/23 07:00 36.6 C 80 18 170/56 H 96 08/13/23 04:00 37 C 81 20 147/56 H 95 Pulse Ox O2 Del Method O2 Flow Rate O2 Flow Rate O2 Flow Rate 08/13/23 14:57 Nasal Cannula 3 08/13/23 14:22 08/13/23 13:36 93 3 3 08/13/23 11:04 Nasal Cannula 2 08/13/23 10:05 Nasal Cannula 3 08/13/23 08:00 08/13/23 08:00 Nasal Cannula 3 08/13/23 07:05 Nasal Cannula 4 08/13/23 07:00 Nasal Cannula 3 08/13/23 04:00 Nasal Cannula 4 Coding Level of Care Code 81572 INT INP/OBS CARE 3/75MIN Diagnoses Shortness of breath R06.02 Acute hypoxic respiratory failure J96.01 COPD (chronic obstructive pulmonary disease) J44.9 ISELA (obstructive sleep apnea) G47.33 Non-Hodgkin lymphoma C85.[address] R93.89
[2023-08-14] MEDS: ALBUT/IPRATROP 3MG/0.5MG NEB 3 ML VIAL NEB SCH ×6 (03:21→22:58)
[2023-08-14] MEDS: PIPERACILLIN/TAZOBACTAM 4.5 GM in DEXTROSE 5% MINI-B 100 ML IV SCH ×3 (05:52→21:30)
[2023-08-14 06:25] LABS: Basophils # (auto) 0.07 K/uL (0.00-0.20); Eosinophils # (auto) 0.61 K/uL (0.00-0.50); Eosinophils % (auto) 8.8 %; Hemoglobin 8.3 g/dl (12.0-16.0); Immature Granulocytes # (auto) 0.01 K/uL (0.01-0.20); Immature Granulocytes % (auto) 0.1 %; Lymphocytes # (auto) 1.32 K/uL (1.20-3.40); Lymphocytes % (auto) 19.1 %; Mean Corpuscular Hemoglobin 26.5 pg (25.0-34.0); Mean Corpuscular Hgb Conc 30.7 g/dL (32.0-36.0); Mean Corpuscular Volume 86.3 fL (80.0-100.0); Mean Platelet Volume 8.9 fL (9.4-12.4); Monocytes # (auto) 0.76 K/uL (0.11-0.59); Neutrophils # (auto) 4.14 K/uL (1.40-6.50); Platelet Count 374 K/uL (130-400); RDW Coefficient of Variation 13.1 % (11.5-14.5); RDW Standard Deviation 40.8 fL (36.4-46.3); Red Blood Count 3.13 M/uL (4.20-5.40); White Blood Count 6.91 K/ul (4.8-10.8)
[2023-08-14 06:48] LABS: Albumin Globulin Ratio 1.2 (0.9-2); Albumin Level 3.1 gm/dl (3.4-5.0); Bilirubin,Total 0.2 mg/dl (0.2-1.0); Calcium 8.6 mg/dl (8.6-10.3); Creatinine Clr Calc Pharmacy 47.1 ml/min; Est GFR (African American) 78.5 ml/min; Est GFR (Non-African American) 67.7 ml/min; Globulin 2.5 gm/dl (2.5-4.0); Phosphorus 4.8 mg/dl (2.5-4.9); Potassium 3.4 mmol/L (3.5-5.1); Total Protein 5.6 gm/dl (6.0-8.3)
[2023-08-14] MEDS: ASPIRIN 81 MG ECTAB PO SCH (07:56)
[2023-08-14] MEDS: FUROSEMIDE 40 MG TAB PO SCH (07:57)
[2023-08-14] MEDS: MONTELUKAST SODIUM 10 MG TABLET PO SCH (07:57)
[2023-08-14] MEDS: LORATADINE 10 MG TAB PO SCH (07:57)
[2023-08-14] MEDS: LOSARTAN POTASSIUM 50 MG TAB PO SCH (07:57)
[2023-08-14] MEDS: CLOPIDOGREL BISULFATE 75 MG TAB PO SCH (07:57)
[2023-08-14] MEDS: ATORVASTATIN 40 MG TAB PO SCH (07:57)
[2023-08-14] MEDS: FERROUS SULFATE 325 MG TAB PO SCH (07:57)
[2023-08-14] MEDS: FLUTICASONE PROPIONATE NA SPR 16 GM BTL NAE SCH (07:58)
[2023-08-14] MEDS: FLUTICASONE FUROATE 100MCG 14 PUFFS/INHALER INH SCH (07:58)
[2023-08-14] MEDS: UMECLIDINIUM/VILANTEROL 62.5/25MCG 7 PUFFS/INHALER INH SCH (07:58)
[2023-08-14] MEDS ORDERED: POTASSIUM CHLORIDE CRTAB 20 MEQ TABCR PO STA (09:53)
[2023-08-14] MEDS: CALCIUM CITRATE 950 MG TAB PO SCH ×2 (12:05→18:47)
[2023-08-14] MEDS: PANTOprazole 40 MG TAB PO SCH (12:06)
--- NOTE | 2023-08-14 12:48 | Pulmonology Progress Note ---
Date of Service August 14, 2023 Assessment & Plan (1) Shortness of breath: Plan: 82 year old female former smoker, with COPD, patient of Pulmonary in [place] who presented with shortness of breath and hypoxia s/p bronch. Chest CT showed mediastinal lymphadenopathy and dense LLL consolidation. Prior chest CT from a month ago reviewed which did not show LLL consolidation that is seen on this admission. Bronchoscopy report also reviewed today which showed an obstruction lesion in proximal LB6. Give these information we now understand her current symptoms are likely a result of post-obstructive pneumonia from a recently discovered endobronchial lesion in the left lower lobe. This would not change our current management which is to continue antibiotics. And because she is clinically improving and all cultures are NGTD consider deescalating zosyn to ceftriaxone. She can be discharged when ready per primary team on oral antibiotics. She should then follow up with her doula in a week. (2) Acute hypoxic respiratory failure: Plan: Titrate nasal cannula to keep sat >92%. Patient likely will need to be discharged home on oxygen. (3) COPD (chronic obstructive pulmonary disease): Plan: Agree with inahlers. No signs of COPD exacerbation and will hold off on steroids. (4) ISELA (obstructive sleep apnea): (5) Non-Hodgkin lymphoma: (6) Abnormal chest CT: Plan: Probable pneumonia. Recommend de-escalating zosyn to ceftriaxone. Follow up cultures. Plan as above Admission and Anticipated Discharge Date Admission Date: August 12, 2023 Subjective Pt seen in the AM, sitting at bedside. States she is feeling better but still coughing. Physical Exam Constitutional: WD/WN, vitals as above Respiratory: Auscultation: + diminished lung sounds (LLL) and + rhonchi Cardiovascular: RRR, no murmur, no edema Skin: no rashes, warm and dry Neurologic: CN's II-XI intact bilaterally, moves all extremities and awake Psychiatric: Orientation: alert and oriented x 3 Results & Data Results & Data Vital Signs (Past 12 Hours) Vital Signs Temp Pulse Resp BP Pulse Ox O2 Del Method O2 Flow Rate 08/14/23 11:14 80 16 98 Nasal Cannula 4 08/14/23 08:02 18 90 Nasal Cannula 4 08/14/23 07:58 Nasal Cannula 2 08/14/23 04:00 36.9 C 89 19 124/48 L 96 Nasal Cannula 2 08/14/23 03:22 84 18 91 Nasal Cannula 3 Coding Level of Care Code 80843 SUB INP/OBS CARE 3/50MIN Diagnoses Shortness of breath R06.02 Acute hypoxic respiratory failure J96.01 COPD (chronic obstructive pulmonary disease) J44.9 ISELA (obstructive sleep apnea) G47.33 Non-Hodgkin lymphoma C85.[address] R93.89
--- NOTE | 2023-08-14 13:28 | Hospitalist Progress Note ---
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 Acute hypoxic Respiratory failure s/p bronchoscopy 08/10/2023 Aspiration Pneumonia Per pt and family, had bronch on 08/10, with coughing fit and hypoxia when waking up from anesthesia Was discharged with Augmentin, has taken two doses with persistent cough hurting her ribs Does not use oxygen at baseline, hypoxic to the 80s in the ambulance and ED CT chest concerning for malignancy, noted possible aspiration pneumonia/pneumonitis and mediastinal lymphadenopathy, no PE EPIC chart review notes bronchial culture growing > 100, 000 colonies of moraxella catarrhalis. Surgical pathology still in process Was on Zosyn for 2 days, de-escalated to rocephin per recommendations from p ulmonology. Supplement oxygen as needed- wean as tolerated. 2 step ordered in anticipation of discharge needs. Pulmonology consult- appreciate recs -deescalate abx to rocephin after reviewing images -f/u with her overage shortage and damage clerk in 1 week CHF, diastolic BNP elevated to 259 hs-trop slightly elevated at 14, trend q6h EPIC chart review shows echo in July with no significant change from her last, noted valvular pathology Repeat echo with no significant change, EF 50-55% Cardiology follow up after discharge ISELA Not currently on CPAP at home Hx of carotid endarterectomy Follows with Vascular surgery Continue aspirin and plavix Continue other home medications DVT prophylaxis: Lovenox Diet: HH CODE STATUS: DNR/DNI Dispo: PT/OT ordered, will likely require 2-step before discharge, family requesting oxygen for home use Admission and Anticipated Discharge Date Admission Date: August 12, 2023 Subjective Pt seen in the AM, sitting in bed with daughter at bedside. States she is feeling better but still coughing. Not using hycodan. Cough hurts ribs. Review of Systems Review of Systems: All systems reviewed & are unremarkable except as noted in Subjective Physical Exam Physical Exam: General: Alert, oriented. No acute distress Skin: No noted rashes or bruises Psych: Appropriate mood and affect Neuro: No gross deficits HEENT: NC/AT Chest: Nontender to palpation. CV: RRR, blowing murmur appreciated Resp: Breath sounds with coarseness bilaterally, coughs with deep breaths Abdomen: Soft, nontender, nondistended. Extremities: edema in lower extremities bilaterally. Results & Data Results & Data Vital Signs (Past 12 Hours) Vital Signs Temp Pulse Resp BP Pulse Ox O2 Del Method O2 Flow Rate 08/14/23 11:14 80 16 98 Nasal Cannula 4 08/14/23 08:02 18 90 Nasal Cannula 4 08/14/23 07:58 Nasal Cannula 2 08/14/23 04:00 36.9 C 89 19 124/48 L 96 Nasal Cannula 2 08/14/23 03:22 84 18 91 Nasal Cannula 3
[2023-08-14] MEDS: HYDROcodone/HOMATROPINE SYRUP 5MG/1.5MG 5ML UDP PO PRN ×2 (14:00→22:04)
[2023-08-14] MEDS: ENOXAPARIN INJ 40 MG/0.4 ML SYR SQ SCH (21:29)
[2023-08-14] MEDS: GABAPENTIN 300 MG CAP PO SCH (21:30)
--- OUTSIDE RECORDS SUMMARY | 2023-08-14 23:17 | External Medical Summary | Summary of Care ---
Author Name Unknown Organization [facility] Address [address] [place] [address] Phone [phone] Care Team Providers Care Social Media Assistant Name Role Phone Rhys Humphrey MD Primary Care Provide r Reason for Visit * Reason Onset Date Comments [facility]: Maintenance 08/12/2023 Encounter Details Date Type Department Care Team (Late st Contact Info) Description 08/12/2023 1:30 PM EST Scheduled Telephone [facility] [address] [facility] [place] [address] [facility], Nurse [facility] [address] [facility] [place] [address] Allergies Active Allergy Reactions Criticality Noted Date Comments Adhesive Tape Other (Please comment),Hives High 09/29/2008 Caused welts Dextromethorphan-Gu aifenesin Neuro complications (Please comment) Medium 12/23/2021 Feels lightheaded/"foggy" documented as of this encounter (statuses as of 08/12/2023) Medications Medication Sig Dispensed Refills Start Date End Date Status FISH OIL 1000 MG PO CAPS Take 1 Capsule by mouth in the morning. 0 Active Multiple Vitamins-Minerals (CENTRUM SILVER 50+WOMEN) TABS Take 1 Tab by mouth daily. 0 Active oxygen GASIndications:ISELA on CPAP 2.5 LPM bled through cpap. 1 Each 0 08/22/2019 Active DIURETIC TITRATION PLAN If no improvement on day 3, contact heart failure managing provider. 1 Each 0 11/11/2019 Active Nebulizers (NEBULIZER COMPRESSOR) MISCIndications:COPD , 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 Use as directed. 1 Each 1 11/17/2019 Active Iron 325 (65 Fe) MG Oral Tablet Take 1 Tablet by mouth daily. 0 Active Cranberry 500 MG Oral Capsule Take 1 Capsule by mouth in the morning and 1 Capsule before bedtime. 50 Cap 0 01/18/2021 Active Zrsvypz-Suzcglpwm-Il nc 333-133-5 MG Oral Tablet Take 1 Tablet by mouth daily. 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 30 Each 11 08/02/2022 Active Fluticasone Furoate 100 MCG/ACT Inhalation Aerosol Powder Breath Activated (ARNUITY ellipta) Inhale by mouth 1 Puff in the morning. In addition to anoro. 30 Each 08/02/2022 Active Aspirin 81 MG Oral Tablet Chewable Take 1 Tablet by mouth in the morning. 0 Active Fluticasone Propionate 50 MCG/ACT Nasal SuspensionIndication s:Dysfunction of both eustachian tubes Administer 2 Sprays into each nostril in the morning. 16 g 3 10/06/2022 Active Loratadine 10 MG Oral Tablet (Claritin)Indication s:Dysfunction of both eustachian tubes Take 1 Tablet by mouth in the morning. For nasal congestion and ear pressure. 30 Tablet 1 10/06/2022 Active Docusate Sodium 100 MG Oral Capsule (Colace) Take 2 Capsules by mouth 2 times a day as needed. 0 Active Albuterol Sulfate HFA 108 (90 Base) MCG/ACT Inhalation Aerosol SolutionIndications: COPD, moderate (HCC) Inhale 2 Puffs by mouth every 4 hours as needed for Cough, Shortness of Breath or Wheezing. 18 g 5 01/01/2023 Active Montelukast Sodium 10 MG Oral Tablet (Singulair)Indicatio ns:Moderate chronic obstructive pulmonary disease (HCC) TAKE ONE TABLET BY MOUTH EVERY DAY 90 Tablet 3 01/25/2023 Active Pantoprazole Sodium 40 MG Oral Tablet Delayed Release (Protonix) TAKE ONE TABLET EVERY DAY 90 Tablet 3 01/25/2023 Active Meclizine HCl 12.5 MG Oral Tablet (Antivert)Indication s:Vertigo Take 1 Tablet by mouth 3 times a day as needed for Dizziness. 30 Tablet 0 03/16/2023 Active Ipratropium-Albutero l 0.5-2.5 (3) MG/3ML Inhalation Solution (Duoneb)Indications: COPD, group D, by GOLD 2017 classification ([facility]) Inhale 3 mL via nebulizer every 6 hours as needed for Shortness of Breath or Wheezing. 360 mL 3 03/22/2023 Active Atorvastatin Calcium 40 MG Oral Tablet (Lipitor)Indications :Dyslipidemia, goal LDL below 100 Take 1 Tablet by mouth daily. 90 Tablet 1 04/11/2023 Active Clopidogrel Bisulfate 75 MG Oral Tablet (pLAVix)Indications: TIA (transient ischemic attack) Take 1 Tablet by mouth daily. 90 Tablet 1 04/11/2023 Active Diclofenac Sodium 1 % External Gel (Voltaren)Indication s:pain Apply 2 g topically to affected area daily as needed for Pain. Apply to L shoulder 350 g 2 06/07/2023 Active Premarin 0.625 MG/GM Vaginal Cream (Estrogens Conjugated)Indicatio ns:Vaginal irritation,Atrophic vaginitis Administer 0.5 g into the vagina at bedtime on Sunday and Sunday only. 42.5 g 1 06/08/2023 Active Furosemide 40 MG Oral Tablet (Lasix)Indications:C hronic diastolic congestive heart failure ([facility]) One tablet daily with an extra tablet as needed for swelling 120 Tablet 3 06/11/2023 Active Ramelteon 8 MG Oral Tablet (Rozerem)Indications :Insomnia, unspecified type TAKE ONE TABLET AT BEDTIME 30 Tablet 5 06/11/2023 Active Calmoseptine 0.44-20.6 % External Ointment (Menthol-Zinc Oxide) Apply topically to affected area as needed. Apply to vaginal area 0 Active Acetaminophen 325 MG Oral Tablet (Tylenol) Take 1 Tablet by mouth every 6 hours as needed. 0 Active Famotidine 20 MG Oral Tablet (Pepcid) Take 1 Tablet by mouth 2 times a day as needed for Heartburn. 180 Tablet 1 07/06/2023 Active Losartan Potassium 50 MG Oral Tablet (Cozaar)Indications: HTN, goal below 140/90 Take 1 Tablet by mouth daily. 180 Tablet 1 07/09/2023 Active Gabapentin 300 MG Oral Capsule (Neurontin)Indicatio ns:Peripheral polyneuropathy,Pain in both lower extremities TAKE THREE CAPSULES AT BEDTIME 90 Capsule 3 07/11/2023 Active Clobetasol Propionate 0.05 % External Cream (Temovate)Indication s:Lichen sclerosus Apply to area twice daily x 1 month , then nightly x 2 months, then twice weekly x 3 months 60 g 1 07/16/2023 Active Benzonatate 100 MG Oral Capsule Take 1 Capsule by mouth 3 times a day as needed for Cough. 30 Capsule 0 08/09/2023 Active Amoxicillin-Pot Clavulanate 875-125 MG Oral Tablet (Augmentin) Take 1 Tablet by mouth in the morning and 1 Tablet before bedtime. 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 -continue pantoprazole COPD, group D, by GOLD 2017 classification 09/08 Overview: Per COPD GOLD Classification Last Assessment & Plan: Current Status : Actively exacerbating Degree of Condition Awareness: Demonstrates very good awareness of condition, disease course, and prognosis "RED FLAG" COPD symptoms: o Increased dyspnea on exertion ("I can't walk to the kitchen or up the stairs without coughing and wheezing", "My chest feels tight any time I move") o Increased shortness of breath at rest ("I struggle to breathe even when watching TV", "I have to wear or turn up my oxygen just when I'm sitting on the couch") Medication Regimen o Other: anoro, arnradha, sunni, chandler Self-Management plan o Prednisone 40mg daily for 5 days Rx o Oral Antibiotic Rx (see medication list) o High frequency nebulizer treatments every 4-6 hours around the clock Exacerbation plan o Solumedrol 40mg IM/IV Major depression in remission 03/05/2019 Ground glass opacity present on imaging of lung 01/08/2019 Hypertensive heart disease w ith chronic diastolic congestive heart failure 09/27/2018 Last Assessment & Plan: Current Status: "Stable" for patient / At or near baseline Degree of Condition Awareness: Demonstrates very good awareness of condition, disease course, and prognosis "RED FLAG" HF Symptoms: o Increased dyspnea on exertion (Example: "I can't walk to the kitchen or up the stairs") Current Heart Failure Classifications: o With ordinary activity such as doing housework, yard work or shopping ([employer] CLASS II) Diagnostic Review: Recent Labs Units 09/26/22 1606 03/22/22 1334 12/29/21 1517 LEFT VENTRICULAR EJECTION FRACTION % -- -- 60 ESTIMATED GLOMERULAR FILTRATION RATE - [facility] mL/min 69 < > -- HGB - [facility] g/dL 11.8* < > -- < > = values in this interval not displayed. Medication Regimen: o Beta Camilo Therapy: Other: none o CHRISTINA Inhibitor/ARB Therapy: Losartan o Diuretic therapy: Lasix Self - Management Plan o Double dose of Furosemide for 3 days Exacerbation Plan o Anticipated IV Lasix dose: 40 mg o Chest X-Ray Nocturnal hypoxemia 08/23/2018 Last Assessment & Plan: Using 2.5 L of oxygen at night Chronic diastolic congestive heart failure 06/24 Other specified peripheral vascular diseases History of TIA (transient ischemic attack) 06/24 Last Assessment & Plan: Stable -continue Plavix, aspirin, atorvastatin History of left hip replacement 06/24/2018 Hx of nonmelanoma skin cancer 08/21/2017 Overview: basal cell carcinoma (R central chest) Persistent insomnia 05/31/2017 Iron deficiency 03/27/2017 Osteopenia of neck of femur 04/05/2015 Lichen sclerosus et atrophicus 07/22/2014 Overview: Back/shoulder/vagina Last Assessment & Plan: Followed by derm. She has concerns about area in vaginal. Has upcoming derm appt and advised to discuss at that time. Centrilobular emphysema 06/01/2011 Nonrheumatic aortic valve stenosis 03/31/2011 Overview: Mod-severe per ANDREA 01/31/11 Last Assessment & Plan: Stable Following with cards Dyslipidemia, goal LDL below 70 01/30/2011 Last Assessment & Plan: Feeling better since stopping zetia. 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 Primary localized osteoarthrosis of pelvic regio n or thigh 09/11/2008 ADVANCE DIRECTIVE INFORMATION 11/20/2006 Overview: No, Advance Directive brochure given to patient. History of tobacco use 01/05/2005 Other allergic rhinitis Overview: ICD-10 update of inactive term ISELA (obstructive sleep apnea) Last Assessment & Plan: Needs new CPAP machine. Order placed documented as of this encounter (statuses as of 08/12/2023) Resolved Problems Problem Noted Date Diagnosed Date Resolved Date Mild aortic valve stenosis 04/28/2022 1 11/02/2021 Last Assessment & Plan: Followed by cardiology Occlusion and stenosis of un specified carotid artery 10/02/2019 03/16/2021 COPD, group B, by GOLD 2017 classification 03/10/2019 09/11/2019 Overview: Per COPD GOLD Classification Prediabetes 03/10/2019 07/14/2021 Overview: Per Prediabetes protocol Moderate chronic obstructive pulmonary disease 03/05/2019 05/17/2019 Hypertensive heart disease w ith chronic diastolic congestive heart failure 03/05/201905/28 Hyperglycemia 03/05/2019 03/16/2021 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 02/19/2019 12/15/2019 Bronchitis, complicated 01/08/201905/01 Major depressive disorder in remission 06/24/2018 02/26/2019 High risk for fracture due t o osteoporosis by DEXA scan 12/07/2017 06/25/2018 Major depressive disorder, [place] episode, mild 12/07/2017 06/24/2018 GERD (gastroesophageal reflux disease) 11/13/2014 10/06/2019 Mesenteric lymphadenopathy 09/19/2013 0 12/07/2017 RICHARD (dyspnea on exertion) 01/07/2013 Obstructive sleep apnea 11/22/2011 03/06/2018 Overview: 11/22/11 -- auto CPAP 5-15 01/15/14 oxygen at 2 LPM with CPAP AHP HYPOXEMIA, NOCTURNAL 06/01/2011 018 Overview: 05/17/11 Noct ox RA -- low 73%, basal 90%, <89% 38 mins, NURIA 10 Moderate obstructive and res trictive lung disease 06/01/2011 03/12/2019 Overview: PFT: 2008 Carotid stenosis, symptomatic w/o infarct 04/10/2011 06/01/2011 Aortic valve disorder 01/30/20112015 Carotid stenosis, non-symptomatic 01/30/2011 03/31/2011 Asthma with severity to be determined 03/28/2010 01/12/2011 Overview: Per Asthma Taxonomy ICD-10 update of inactive term Dyslipidemia, goal to be determined 09/16/2009 01/12/2011 Overview: Per Lipid Taxonomy. Hip joint replacement status 09/11/2008 06/24/2018 HTN, goal to be determined 03/19/200810/23/2008 Overview: Modified per HTN protocol #16. Asthma, allergic 01/12/2005 03/28/2010 PURE HYPERCHOLESTEROLEM 04/16/200208/31 Overview: Per Lipid Taxonomy. 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/31/20 17 Cancer Staging:Clinical:Stage III- Signed by Martínez Lopes MD on 11/16/2014 Pathologic: Unsigned TIA (transient ischemic attack) 06/24/2018 documented as of this encounter (statuses as of 08/12/2023) Immunizations Name Administration Dates Next Due COVID-19 mRNA, LNP-s, No Pre serve, 2-Dose Series (GRUZOBZOR) 07/11/2021,11/14/2020,10/24/2020 Covid-19, Mrna, Lnp-s, Pf, B ivalent, 30 Mcg, IM, 12 yrs and above (GRUZOBZOR) 07/21/2022 Pneumococcal Conjugate Vacc, 13 Valent (Prevnar) 03/16/2015 Pneumococcal Conjugate Vacci ne, 20-valent ([id number]) 07/21/2022 Pneumococcal Polysaccharide PPV23 (Pneumovax) 03/05/2019,07/18/2007 SEASONAL INFLUENZA, PF, 6 M & Above, IM , (FLULAVAL or FLUZONE) 06/28/2018,07/28/2017 Season Influenza, Quad, PF, Adjuvanted, 65+ Yrs, IM (FLUAD) 06/16/2020 Seasonal Influenza, Quadriva lent Hd (Fluzone Hd) 06/07/2023,06/16/2022,06/08/2021 Seasonal Influenza, Quadriva lent, No Preserve, IM 06/27/2016,08/17/2015 Seasonal Influenza, Split, I IV3, With Preserve, Inj 09/18/2014,07/22/2014,07/01/2013,06/18,07/18/2011,07/12/2010,08/13/2009 ,07/09/2008,07/18/2007,07/12/2006 Seasonal Influenza, Trivalen t, Adjuvanted, 65+ yrs 06/09/2019 TD - Tetanus/Diptheria (ADULT) 10/01/2001 TD, Preservative Free 09/17/2019 TDAP (age 11 and older)(Adacel) 08/10/2011 Varicella Zoster Vaccine (Adult) 07/22/2012 Zoster Vaccine Recombinant (Shingrix) 04/25/2020 ,09/15/2019 documented as of this encounter Social History Tobacco Use Types Packs/Day Years Used Date Smoking Tobacco: Former Cigarettes 0.5 46 Q uit: 10/01/2001 Smokeless Tobacco: Never Alcohol Use Standard Drinks/Week Comments No 0 (1 standard drink = 0.6 oz pur e alcohol) PHQ-2 Answer Date Recorded PHQ Adult Total Score 0 03/16/2023 Hunger Vital Sign Answer Date Recorded Within the past 12 months, y ou worried that your food would run out before you got the money to buy more. Never true 03/16/20 23 Within the past 12 months, t he food you bought just didn't last and you didn't have money to get more. Never true 03/16/2023 Sex and Gender Information Value Date Recorded Sex Assigned at Female 03/16/2023 10:03 AM EDT Gender Identity Female 03/16/2023 10:03 AM EDT Sexual Orientation Straight 03/16/2023 10 :03 AM EDT Job Start Date Occupation Industry Not on file Not on file Not on file documented as of this encounter Miscellaneous Notes * Telephone Encounter - Amy Zaragoza RN - 08/12/2023 11:33 AM EST Communication Note Name: Keisha Linares Situation: patient on for follow up call s/p bronchoscopy. Background: Pt called into triage on 08/05/23 to report nose bleed followed by coughing up blood. Had cold symptoms. Covid test negative. Pt had bronchoscopy , lung biopsy 08/10/23. Started on augmentin 875-125 mg 1 tab twice daily x 7 days. Assessment: Call to patient . No answer. Left VM with request to return call to [facility] to update us on her status.If pt calls back: Confirm she started her Augmentin as ordered. How is she feeling? Recommendation: RD referral Telephonic CM call 08/15 Reinforce small frequent snacks to include protein-peanut butter, cheese, lean low sodium meat. Protein shakes such as ensure, boost, carnation instant breakfast. documented in this encounter Plan of Treatment Upcoming Encounters Date Type Department Care Team (Late st Contact Info) Description 08/15/2023 10:30 AM EST Scheduled Telephone [facility], [facility] [address] [place] [address] [facility] Nurse Triage [address] [facility] [place] [address] 08/30/2023 11:15 AM EST Office Visit Hematology/Oncology [facility] [place] [address] [place] [address] Martínez Lopes MD [address] [place] [address] 09/17/2023 9:40 AM EST Office Visit Dermatology [address] [place] [address] Marycruz Almazan PA-C [address] [place] [address] [place] [address] 10/03/2023 10:30 AM EST Office Visit [facility] Disorders [facility] [address] [place] [phone] Sosa Freeman CRNP [address] [place] [address] 10/16/2023 11:30 AM EST Office Visit Gastroenterology, [facility] [address] [place] [address] Lizzette Silva CRNP [address] [place] [address] 12/10/2023 9:20 AM EDT Office Visit Family Medicine [address] [place] [phone] Rhys Humphrey MD [address] [place] [address] [place] [address] 12/27/2023 11:00 AM EDT Office Visit Cardiology [address] [place] [address] Mi Neil PA-C [address] [place] [address] 03/18/2024 9:00 AM EDT Nurse Only Ancillary [address] [place] [phone] [place], Nurse Annual Wellness [address] [place] [address] [place] [address] Scheduled Procedures Name Priority Associated Diagnoses Date/Ti me ESOPHAGOGASTRODUODENOSCOPY ( EGD), FLEXIBLE, TRANSORAL, DIAGNOSTIC Recall Other iron deficiency anemia Health Maintenance Due Date Last Done Comments Alpha-1 Antitrypsin 1958 DXA Scan 06/11/2020 06/11/2018, 03/02, 02/16/2012, Additional history exists *BISPHONATE OR OTHER ACCEPTABLE MEDICATION NEEDED FOR OSTEOPOROSIS (REFER TO SMARTSET #1146) 01/23/2021 COVID-19 Vaccine ( season) 2023 07/21/2022, 08/01/2021, 07/11/2021, Additional history exists Depression Screening 03/16/2024 03/16/2023 GFR 07/03/2024 07/03/2023, 06/01, 06/07/2023, Additional history exists O2 ASSESSMENT COMPLETED IN PAST YEAR FOR COPD 08/10/2024 08/10/2023 Albumin/Creatinine Ratio 04/28/2025 04/28/2022 DTaP,Tdap,and Td Vaccines (3 - Td or Tdap) 09/17/2029 09/17/2019, 08/10/2011, 10/01/2001 Zoster Vaccines Completed 04/25/2020, 08/31, 07/22/2012 VITAMIN D LEVEL ONCE IN A LIFETIME-USE SMARTSET# 42875 Completed 06/29/2020, 03/16/2015 Pneumococcal Vaccine: 65+ Years Completed 07/21/2022, 03/05/2019, 03/16/2015, Additional history exists Influenza Vaccine (FLU shot) Completed 03/2023, 06/16/2022, 06/08/2021, Additional history exists GARDASIL-HPV IMMUNIZATION SERIES Aged Out No longer eligible based on patient's age to complete this topic Hepatitis B Aged Out No longer eligi ble based on patient's age to complete this topic MENINGOCOCCAL (MENACTRA/MENVEO) Aged Out No longer eligible based on patient's age to complete this topic documented as of this encounter Medical Devices Not on filedocumented as of this encounter Advance Directives Documents on File Type Date Recorded Patient Drug Enforcement Agent Expl anation POLST 10/15/2019 3:17 PM POLST POLST 03/05/2019 POLST FORM Advance Directives and Living Will 01/27/2013 LIVING WILL Advance Directives and Living Will 01/27/2013 LIVING WILL Power of Erp Project Manager 01/27/2013 POWER OF A TTORNEY Power of Erp Project Manager 01/27/2013 POWER OF A TTORNEY Healthcare Agents on File Name Relationship Healthcare Agent Relationship Communication Cydney Benito Other - (no specific identity) Second Alternate Health Care Agent Anyi More Adult Child Health Care Roberth r of Erp Project Manager Care Teams Social Media Assistant Relationship Specialty Start Date End Date Rhys Humphrey MD [address] [place] [address] [place] [address] PCP - General Family Medicine 06/09/21 documented as of this encounter
--- OUTSIDE RECORDS SUMMARY | 2023-08-14 23:18 | External Medical Summary ---
Author Name Unknown Address Unknown Organization [id number]:[facility] [place] [address] [facility] [address] Laboratory Report Ordering Provider Test Date Status PADMINI XIE 08/10/2023 13:31:00 Final 4R

Bronchoalveolar lavage fluid lymphocytosis and an elevated CD4 to CD8 ratio among the recovered lymphocytes are characteristic of sarcoidosis. In the proper clinical setting, a CD4 to CD8 ratio greater than 3.5 suggests the diagnosis of sarcoidosis. The percentage of lymphocytes in the fluid is usually 20 to 40% in sarcoidosis. However, there is variability depending on the stage and activity of the disease and approximately 15% of cases of sarcoidosis have low CD4 to CD8 ratios with values around 1.0. Reference ranges have been published for lymphocytes in BAL samples, (Gertrude Calles. etal., Scand. J. Immunol. 24:559-565, 1986). Observation Date Value Abnormality Reference (Units ) Status CD3 cells/100 cells in Body fluid 08/10/2023 13:31:00 Final Insufficient lymphocytes for flow cytometry analysis. CD3+CD4+ (T4 helper) cells/100 cells in Body fluid 13:31:00 Final Insufficient lymphocytes for flow cytometry analysis. CD3+CD8+ (T8 suppressor cell s) cells/100 cells in Body fluid 08/10/2023 13:31:00 Final Insufficient lymphocytes for flow cytometry analysis. CD3+CD4+ (T4 helper) cells/C D3+CD8+ (T8 suppressor cells) cells [# Ratio] in Body fluid 08/10/2023 13:31:00 Final Insufficient lymphocytes for flow cytometry analysis. Performing Location [facility] - [address] [facility] [address]
--- OUTSIDE RECORDS SUMMARY | 2023-08-14 23:18 | External Medical Summary | Summary of Care ---
Author Name Unknown Organization [facility] Address [address] [place] [address] Phone [phone] Care Team Providers Care Rn Radiation Oncology Name Role Phone Rhys Humphrey MD Primary Care Provide r Reason for Visit * Reason Onset Date Comments [facility]: Maintenance 08/10/2023 Encounter Details Date Type Department Care Team (Late st Contact Info) Description 08/10/2023 Telephone [facility], [facility] [address] [place] [address] [facility], Nurse [facility] [address] [place] [address] [facility]: Maintenance Allergies Active Allergy Reactions Criticality Noted Date Comments Adhesive Tape Other (Please comment),Hives High 09/29/2008 Caused welts Dextromethorphan-Gu aifenesin Neuro complications (Please comment) Medium 12/23/2021 Feels lightheaded/"foggy" documented as of this encounter (statuses as of 08/10/2023) Medications Medication Sig Dispensed Refills Start Date [...] before bedtime. 50 Cap 0 01/18/2021 Active Vhrtjat-Pbchxyprg-Wq nc 333-133-5 MG Oral Tablet Take 1 Tablet by mouth daily. 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 30 Capsule 0 08/09/2023 Active documented as of this encounter (statuses as of 08/10/2023) Active Problems Problem Noted Date Diagnosed Date [...] on the couch") Medication Regimen o Other: shay, ana luisa, sunni, chandler Self-Management plan o Prednisone 40mg [...] as of this encounter (statuses as of 08/10/2023) Resolved Problems Problem Noted Date Diagnosed Date [...] on exertion) 01/07/2013 Obstructive sleep apnea 11/22/2011 03/0 06/2018 Overview: 11/22/11 -- auto CPAP 5-15 01/15/14 [...] 09/11/2008 06/24/2018 HTN, goal to be determined 03/19/2008 1 10/23/2008 Overview: Modified per HTN protocol #16. Asthma, allergic 01/12/2005 03/28/2010 PURE HYPERCHOLESTEROLEM 04/16/200208/31 Overview: Per Lipid Taxonomy. 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/31/20 17 Cancer Staging:Clinical:Stage III- Signed by Martínez Lopes MD on 11/16/2014 Pathologic: Unsigned TIA (transient ischemic attack) 06/24/2018 documented as of this encounter (statuses as of 08/10/2023) Immunizations Name Administration Dates Next Due COVID-19 mRNA, LNP-s, No Pre serve, 2-Dose Series (SMGBB) 07/11/2021,11/14/2020,10/24/2020 Covid-19, Mrna, Lnp-s, Pf, B ivalent, 30 Mcg, IM, 12 yrs and above (Pfizer) 07/21/2022 Pneumococcal Conjugate Vacc, 13 Valent (Prevnar) 03/16/2015 Pneumococcal Conjugate Vacci ne, 20-valent ([id number]) 07/21/2022 Pneumococcal Polysaccharide PPV23 (Pneumovax) 03/05/2019,07/18/2007 SEASONAL [...] encounter Miscellaneous Notes * Telephone Encounter - Angeles MehtaDUNCAN - 08/10/2023 8:43 AM EST Images from the original note were not included. [facility] Remote Patient Monitoring Able to contact patient: Trigger type: Abnormal reading(s): AMC (Advanced Monitored Caregiving): Pulse rate: Pulse: 111 Symptom review: Denies symptoms Diet Reviewed: N/A Fluid Intake Reviewed: N/A Self-Management Plan Reviewed: Requiring oxygen more than just at night Coughing up green, yellow , thick mucous Swelling in legs/feet Risk assignment recommendation: Moderate risk findings (check as applicable): [] Moderate trigger priority on AMC [] Confirmed tympanic equivalent temperature 100.4-101.9 F one hour post administration of antipyretic [] Weight gain of 2.1-4.9 lbs over 1-2 days [] Confirmed new sustained resting HR greater than 105 WITHOUT symptoms [] Weight gain of greater than or equal to 5 lbs in 5 days WITHOUT heart failure symptoms [] Confirmed new sustained resting HRT less than 60 WITHOUT symptoms [] Moderate heart failure symptoms [] Confirmed SBP less than 90 WITHOUT symptoms [] Moderate COPD symptoms [] Confirmed SBP greater than 170 WITHOUT symptoms [] Confirmed new SpO2 90-93% [] Confirmed DBP greater than 90 WITHOUT symptoms High risk findings (check as applicable): [x] High trigger priority on AMC [] Confirmed tympanic equivalent temperature greater than or equalto 102 F on hour post administration of antipyretic [] Weight gain of greater than or equal to 5 lbs over 1-2 days [] Confirmed tympanic equivalent temperature less than 96 F [] Weight gain of greater than or equal to 5 lbs in 5 days WITH heart failure symptoms [] Confirmednew sustained resting HR greater than 105 WITH symptoms [] Severe heart failure symptoms [] Confirmed new sustained resting HR less than 60 WITH symptoms [] Severe COPD symptoms [] Confirmed SBP less than 90 WITH symptoms [] Confirmed new SpO2 less than 90% [] Confirmed SBP greater than 170 WITH symptoms [] Confirmed DBP greater than 90 WITH symptoms Additional risk selection justification: Spoke with pt, denied any new or worsening symptoms. She has Bronchoscopy scheduled for today and is feeling a little nervous. She will call with any new or worsening symptoms. Overall risk and identified plan: High risk: Route to RNCM (Registered Nurse Numerical Control Machine Operator) and Advance Practitioner documented in this encounter Plan of Treatment Upcoming Encounters Date Type Department Care Team (Late st Contact Info) Description 08/11/2023 12:00 PM EST Scheduled Telephone [facility], [facility] [address] [place] [address] [facility] [address] [place] [address] 08/15/2023 10:30 AM EST Scheduled Telephone [facility], [facility] [address] [place] [address] [facility] Nurse Triage [address] [place] [address] 08/30/2023 11:15 AM EST Office Visit Hematology/Oncology [facility] [place] [address] [place] [address] Martínez Lopes MD [address] [place] [address] 09/17/2023 9:40 AM EST Office Visit Dermatology [address] [place] [address] Marycruz Almazan PA-C [address] [place] [address] [place] [address] 10/03/2023 10:30 AM EST Office Visit Sleep Disorders [facility] [address] [facility] [place] [phone] Sosa Freeman CRNP [address] [place] [address] 10/16/2023 11:30 AM EST Office Visit Gastroenterology, [facility] [address] [place] [address] Lizzette Silva CRNP [address] [place] [address] 12/10/2023 9:20 AM EDT Office Visit Family Medicine [address] [place] [phone] Rhys Humphrey MD [address] [place] [address] [place] [address] 12/27/2023 11:00 AM EDT Office Visit Cardiology [address] [place] [address] [place], CECI [address] [place] [address] 03/18/2024 9:00 AM EDT Nurse Only Ancillary [address] [place] [address] [place], Nurse [facility] [address] [place] [address] [place] [address] Scheduled Procedures Name Priority Associated Diagnoses Date/Ti me BRONCHOSCOPY, RIGID/FLEXIBLE , INCLUDE FLUORO GUIDANCE, WHEN PERFORMED; W/ EBUS GUIDED TRANSTRACH AND/OR TRANSBRONCH SAMPLING, 1 OR 2 MEDIASTINAL AND/OR HILAR LYMPH NODE STATIONS/STRUCTURES Lung nodule 08/10/2023 12:40 PM EST ESOPHAGOGASTRODUODENOSCOPY ( EGD), FLEXIBLE, TRANSORAL, DIAGNOSTIC Recall [...] ASSESSMENT COMPLETED IN PAST YEAR FOR COPD 07/23/2024 07/23/2023 Albumin/Creatinine Ratio 04/28/2025 04/28/2022 DTaP,Tdap,and Td Vaccines (3 - Td or Tdap) 09/17/2029 09/17/2019, 08/10/2011, 10/01/2001 Zoster Vaccines Completed 04/25/2020, 08/31, 07/22/2012 VITAMIN D LEVEL ONCE IN A LIFETIME-USE SMARTSET# [id number] Completed 06/29/2020, 03/16/2015 Pneumococcal Vaccine: 65+ Years [...] Documents on File Type Date Recorded Patient Load Tester Expl anation POLST 10/15/2019 3:17 PM POLST POLST 03/05/2019 POLST FORM Advance Directives and Living Will 01/27/2013 LIVING WILL Advance Directives and Living Will 01/27/2013 LIVING WILL Power of Commercial Loan Processor 01/27/2013 POWER OF A TTORNEY Power of Commercial Loan Processor 01/27/2013 POWER OF A TTORNEY Healthcare Agents on File Name Relationship Healthcare Agent Relationship Communication Cydney Benito Other - (no specific identity) Second Alternate Health Care Agent Anyi More Adult Child Health Care Roberth r of Commercial Loan Processor Care Teams Rn Radiation Oncology Relationship Specialty Start Date End Date Rhys Humphrey MD [address] [place] [address] [place] [address] PCP - General Family Medicine 06/09/21 documented as of this encounter
--- OUTSIDE RECORDS SUMMARY | 2023-08-14 23:18 | External Medical Summary ---
Author Name Unknown Address Unknown Organization [id number]:[facility] - [address] [place] [address] Laboratory Report Ordering Provider Test Date Status PADMINI XIE 08/10/2023 11:52:23 Final Warfarin Therapy
INR: 2 .0-3.0 conventional anticoagulation
INR: 2.5- 3.5 high intensity anticoagulation Observation Date Value Abnormality Reference (Units ) Status PT 08/10/2023 11:52:23 14.8 11.6-15.2 (seconds) Final INR 08/10/2023 11:52:23 1.1 0.8-1.2 Final Performing Location [facility] - [address] [place] [address]
--- OUTSIDE RECORDS SUMMARY | 2023-08-14 23:18 | External Medical Summary | Summary of Care ---
Author Name Unknown Organization [facility] Address [address] [place] [address] Phone [phone] Care Team Providers Care Regional Guide Name Role Phone Rhys Humphrey MD Primary Care Provide r Reason for Visit * Auth/Cert Specialty Diagnoses / Procedures Referred By Alexsandra t Referred To Contact Diagnoses Lung nodule Lung nodule [R91.1] Procedures BRONCHOSCOPY, DX W/ EBUS, 1-2 NODES BRONCHOSCOPY, RIGID/FLEXIBLE, INCLUDE FLUORO GUIDANCE, WHEN PERFORMED; W/ EBUS GUIDED TRANSTRACH AND/OR TRANSBRONCH SAMPLING, 1 OR 2 MEDIASTINAL AND/OR HILAR LYMPH NODE STATIONS/STRUCTURES Referral ID Status Reason Start Date Expiration Date Visits Re quested Visits Authorized [id number] Encounter Details Date Type Department Care Team (Latest Contact Info) Description 08/10/2023 11:12 AM EST - 08/10/2023 5:19 PM EST Hospital Encounter [facility], Operating Room, [facility] - 4th Floor [address] [facility] [place] [address] Surjit Fernandez MD [address] [facility] [place] [address] GI Bronchoscopy Discharge Disposition: Home - Self Care Allergies Active Allergy Reactions Criticality Noted Date Comments Adhesive Tape Other (Please comment),Hives High 09/29/2008 Caused welts Dextromethorphan-Gu aifenesin Neuro complications (Please comment) Medium 12/23/2021 Feels lightheaded/"foggy" documented as of this encounter (statuses as of 08/11/2023) Medications Medication Sig Dispensed Refills Start Date End Date Status FISH OIL 1000 MG PO CAPS Take 1 Capsule by mouth in the morning. 0 Active Multiple Vitamins-Minerals (CENTRUM SILVER 50+WOMEN) TABS Take 1 Tab by mouth daily. 0 Active oxygen GASIndications:ISELA on CPAP 2.5 LPM bled through cpap. 1 Each 0 9 Active DIURETIC TITRATION PLAN If no improvement on day 3, contact heart failure managing provider. 1 Each 0 0 Active Nebulizers (NEBULIZER COMPRESSOR) MISCIndications:[employer] D, 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 Use as directed. 1 Each 1 0 Active Iron 325 (65 Fe) MG Oral Tablet Take 1 Tablet by mouth daily. 0 Active Cranberry 500 MG Oral Capsule Take 1 Capsule by mouth in the morning and 1 Capsule before bedtime. 50 Cap 0 1 Active Lujyvzn-Xvhpbowyi-R inc 333-133-5 MG Oral Tablet Take 1 Tablet by mouth daily. 0 Active Anoro Ellipta 62.5-25 MCG/INH Inhalation Aerosol Powder Breath Activated (umeclidinium-vilan terol)Indications:C OPD, moderate (HCC),COPD, group D, by GOLD 2017 classification (HCC) Inhale by mouth 1 Puff in the morning. 30 Each 11 2 Active Fluticasone Furoate 100 MCG/ACT Inhalation Aerosol Powder Breath Activated (ARNUITY ellipta) Inhale by mouth 1 Puff in the morning. In addition to anoro. 30 Each 2 Active Aspirin 81 MG Oral Tablet Chewable Take 1 Tablet by mouth in the morning. 0 Active Fluticasone Propionate 50 MCG/ACT Nasal SuspensionIndicatio ns:Dysfunction of both eustachian tubes Administer 2 Sprays into each nostril in the morning. 16 g 3 3 Active Loratadine 10 MG Oral Tablet (Claritin)Indicatio ns:Dysfunction of both eustachian tubes Take 1 Tablet by mouth in the morning. For nasal congestion and ear pressure. 30 Tablet 1 3 Active Docusate Sodium 100 MG Oral Capsule (Colace) Take 2 Capsules by mouth 2 times a day as needed. 0 Active Albuterol Sulfate HFA 108 (90 Base) MCG/ACT Inhalation Aerosol SolutionIndications :COPD, moderate ([facility]) Inhale 2 Puffs by mouth every 4 hours as needed for Cough, Shortness of Breath or Wheezing. 18 g 5 3 Active Montelukast Sodium 10 MG Oral Tablet (Singulair)Indicati ons:Moderate chronic obstructive pulmonary disease ([facility]) TAKE ONE TABLET BY MOUTH EVERY DAY 90 Tablet 3 3 Active Pantoprazole Sodium 40 MG Oral Tablet Delayed Release (Protonix) TAKE ONE TABLET EVERY DAY 90 Tablet 3 3 Active Meclizine HCl 12.5 MG Oral Tablet (Antivert)Indicatio ns:Vertigo Take 1 Tablet by mouth 3 times a day as needed for Dizziness. 30 Tablet 0 3 Active Ipratropium-Albuter ol 0.5-2.5 (3) MG/3ML Inhalation Solution (Duoneb)Indications :COPD, group D, by GOLD 2017 classification ([facility]) Inhale 3 mL via nebulizer every 6 hours as needed for Shortness of Breath or Wheezing. 360 mL 3 3 Active Atorvastatin Calcium 40 MG Oral Tablet (Lipitor)Indication s:Dyslipidemia, goal LDL below 100 Take 1 Tablet by mouth daily. 90 Tablet 1 3 Active Clopidogrel Bisulfate 75 MG Oral Tablet (pLAVix)Indications :TIA (transient ischemic attack) Take 1 Tablet by mouth daily. 90 Tablet 1 3 Active Diclofenac Sodium 1 % External Gel (Voltaren)Indicatio ns:pain Apply 2 g topically to affected area daily as needed for Pain. Apply to L shoulder 350 g 2 3 Active Premarin 0.625 MG/GM Vaginal Cream (Estrogens Conjugated)Indicati ons:Vaginal irritation,Atrophic vaginitis Administer 0.5 g into the vagina at bedtime on Sunday and Sunday only. 42.5 g 1 3 Active Furosemide 40 MG Oral Tablet (Lasix)Indications: Chronic diastolic congestive heart failure ([facility]) One tablet daily with an extra tablet as needed for swelling 120 Tablet 3 3 Active Ramelteon 8 MG Oral Tablet (Rozerem)Indication s:Insomnia, unspecified type TAKE ONE TABLET AT BEDTIME 30 Tablet 5 3 Active Calmoseptine 0.44-20.6 % External Ointment (Menthol-Zinc Oxide) Apply topically to affected area as needed. Apply to vaginal area 0 Active Acetaminophen 325 MG Oral Tablet (Tylenol) Take 1 Tablet by mouth every 6 hours as needed. 0 Active Famotidine 20 MG Oral Tablet (Pepcid) Take 1 Tablet by mouth 2 times a day as needed for Heartburn. 180 Tablet 1 3 Active Losartan Potassium 50 MG Oral Tablet (Cozaar)Indications :HTN, goal below 140/90 Take 1 Tablet by mouth daily. 180 Tablet 1 3 Active Gabapentin 300 MG Oral Capsule (Neurontin)Indicati ons:Peripheral polyneuropathy,Pain in both lower extremities TAKE THREE CAPSULES AT BEDTIME 90 Capsule 3 3 Active Clobetasol Propionate 0.05 % External Cream (Temovate)Indicatio ns:Lichen sclerosus Apply to area twice daily x 1 month , then nightly x 2 months, then twice weekly x 3 months 60 g 1 3 Active Benzonatate 100 MG Oral Capsule Take 1 Capsule by mouth 3 times a day as needed for Cough. 30 Capsule 0 3 Active Benzonatate 100 MG Oral Capsule Take 1 Capsule by mouth 3 times a day as needed for Cough. 30 Capsule 1 3 08/07/20 23 Discontinued documented as of this encounter (statuses as of 08/11/2023) Active Problems Problem Noted Date Diagnosed Date [...] the couch") Medication Regimen o Other: anoro, arnuity, singulair, duonebs Self-Management plan o Prednisone 40mg daily for [...] as of this encounter (statuses as of 08/11/2023) Resolved Problems Problem Noted Date Diagnosed Date [...] as of this encounter (statuses as of 08/11/2023) Immunizations Name Administration Dates Next Due COVID-19 mRNA, LNP-s, No Pre serve, 2-Dose Series (cottonTracks) 07/11/2021,11/14/2020,10/24/2020 Covid-19, Mrna, Lnp-s, Pf, B ivalent, 30 Mcg, IM, 12 yrs and above (Pfizer) 07/21/2022 Pneumococcal Conjugate Vacc, 13 Valent (Prevnar) 03/16/2015 Pneumococcal Conjugate Vacci ne, 20-valent (Mquixvp20) 07/21/2022 Pneumococcal Polysaccharide PPV23 (Pneumovax) 03/05/2019,07/18/2007 SEASONAL [...] the money to buy more. Never true 06/16/20 23 Within the past 12 months, t [...] on file documented as of this encounter Last Filed Vital Signs Vital Sign Reading Time Taken Comments Blood Pressure 105/49 08/10/2023 5:10 PM EST Pulse 96 08/10/2023 5:10 PM EST Temperature 37.4 C (99.3 F) 08/10/2023 5:10 PM ES T Respiratory Rate 20 08/10/2023 5:10 PM EST Oxygen Saturation 88% 08/10/2023 5:10 PM EST Inhaled Oxygen Concentration - - Weight 70.8 kg (156 lb) 08/10/2023 11:55 AM EST Height 162.6 cm (5' 4.02") 08/10/2023 11:[address] Body Mass Index 26.76 08/10/2023 11:55 AM EST documented in this encounter Discharge Summaries * Surjit Fernandez MD - 08/10/2023 3:03 PM EST [address] [address] Admission Date: 08/10/2023 Discharge Date: 08/10/2023 Discharge Date: 08/10/2023 You may call Doctor Jim of the department of Pulmonary at [phone] during business hours for anyquestions or test results. For after-hours emergencies call [phone] and have your doctor paged. The information below provides you with the instructions and the list of medications you need to betaking following discharge from the hospital. If you have any questions, please ask before leaving.Please carry this letter with you when you see your doctor in the clinic. If you have questions, you can reach us at the numbers above. Brief summary of your inpatient care: Patient had bronchoscopy with endobronchial ultrasound guidance for evaluation of mediastinal lymphadenopathy and left lower lobe lung nodular density. Procedurewas done under general anesthesia. Thick mucoid secretions were noted bilaterally within the tracheo bronchial tree. BAL specimens were taking from left upper and left lower lobe, right upper and right middle lobe. Bronchial cleaning was done. Mass obstructing the entrance of the superior segment ofthe left lower lobe was noted. One needle biopsy and forceps biopsy taking from the lesion at the entrance of the superior segment of the left lower lobe. Lymph node biopsies were taking from stations 4R and 10 L. preliminary evaluation via rapid on-site cytologic evaluation suggestive of atypical cells. All specimen obtained will be sent to lab for further analysis and results of the test will be discussed with patient at a follow-up in pulmonary clinic. Patient had to be placed on oxygen supplementation. She was given Unasyn 3 gm and solumedrol 60 mg.Prescription for Augmentin 875 mg twice daily for 7 days ordered. Your doctors during this hospitalization included: Dr Fernandez Your primary diagnosis at discharge was mediastinal and hilar lymphadenopathy with left lower lobe nodule s/p bronchoscopy Inpatient test results pending: Bronchial specimen analysis Operations & Procedures: Bronchoscopy with endobronchial ultrasound guidance Complications: none significant Advance Directive Documented: Advance Directive Does the Patient have an Advance Directive? No Diet: Previous diet Activity: No strenuous activity for 24 hours Driving: N/A. Date you may return to work or school: N/A See your primary care physician (Rhys Humphrey MD) as previously scheduled Special Instructions: Call the number stated above or go to the emergency room in the event of any worsening shortness of breath, chest pain, dizziness, bleeding, or any new symptoms. Disposition: Discharged home documented in this encounter Progress Notes * Surjit Fernandez MD - 08/10/2023 2:59 PM EST PROGRESS NOTE - Thoracic Surgery [facility]-[address] [address] Name: Keisha Linares Location: [facility]/OR Date: 08/10/2023 Time: 2:59 PM DIAGNOSIS: Mediastinal lymphadenopathy lobe lung nodule OPERATION: Bronchoscopy with endobronchial ultrasound guidance SURGEON: Dr Fernandez SUBJECTIVE: Patient had bronchoscopy with endobronchial ultrasound guidance for evaluation of mediastinal lymphadenopathy and left lower lobe lung nodular density. Procedure was done under general anesthesia. Thick mucoid secretions were noted bilaterally within the tracheobronchial tree. BAL specimens were taking from left upper and left lower lobe, right upper and right middle lobe. Bronchial cleaning was done. Mass obstructing the entrance of the superior segment of the left lower lobe was noted. One needle biopsy and forceps biopsy taking from the lesion at the entrance of the superior segment of the left lower lobe. Lymph node biopsies were taking from stations 4R and 10 L. preliminary evaluation via rapid on-site cytologic evaluation suggestive of atypical cells. All specimen obtained will be sent to lab for further analysis and results of the test will be discussed with patient at a follow-up in pulmonary clinic. Patient had to be placed on oxygen supplementation. She was given Unasyn 3 gm and solumedrol 60 mg.Prescription for Augmentin 875 mg twice daily for 7 days ordered. VITAL SIGNS: Reviewed. PHYSICAL EXAM: stable CXR: normal post-op appearance PLAN: Discharge home documented in this encounter H&P Notes * Surjit Fernandez MD - 08/10/2023 12:42 PM EST HISTORY & PHYSICAL INTERVAL NOTE [facility]-[address] [address] History and Physical Update: Name: Keisha Linares Location: [facility]/OR Date: 08/10/2023 Time: 12:42 PM DATE OF HISTORY AND PHYSICAL: 07/23/23 BP: 111 mmHg/59 mmHg (08/10/23 115) Pulse: 92 (08/10/23 115) Temp: 36.5 C (08/10/23 115) Resp: 18 (08/10/23 115) SpO2: 90 % (08/10/23 115) Does patient take a beta camilo? No Did patient stop anticoagulants? No, Aspirin, Plavix was held Heart Exam: regular rate and rhythm Lung Exam: air entry is decreased mildly bilaterally, with mild crackles at the bases Other Pertinent Physical Exam: as noted in the H and P I have reviewed the H&P previously performed and examined the patient today. There are no new findings noted. Risks and benefits of procedure were discussed with the patient. Risks discussed include but not limited to bleeding, infection, pneumothorax, mediastinitis, prolonged intubation and hospitalization,and anesthetic complications. Anesthetic complications will be discussed further by the anesthesiologist. Patient agreed to have the procedure done and signed the consent. Daughter was present at thebedside. Postprocedure findings will be discussed and results of the test will be discussed with the patient at a follow-up in pulmonary clinic. 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 I was in a hospital or clinic location. After connecting through televideo, patient was verified with two unique identifiers. Patient (or authorized legal client care representative) was then informed that this was a Telemedicine visit and being conducted confidentiallyover secure lines. Methods to assure confidentiality were taken. Patient acknowledged consent and understanding of privacy and security of the Telemedicine visit. The patient agreed to participate. HPI: Keisha Linares is a 82 year old female with history of remote (/3 ppd for many years, quit in 2003) smoking, who presents with abnormal lung imaging. She has h/o lymphoma managed expectantly over years, now with worsening anemia, she had f/u imagingand shows new mediastinal LN enlargement. She has COPD and is on spiriva and flovent for many years. 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 Has some cough. Recently had some streaks of blood in sputum but was dark. No chest pain. No fever or night sweats. RICHARD, MMRC Dyspnea Scale = 1 (I get short of breath when hurrying on level ground or walking up a slight hill) PAST PULMONARY HISTORY: COPD Immunization History Administered Date(s) Administered COVID-19 mRNA, LNP-s, No Preserve, 2-Dose Series (Pfizer) 10/24/2020, 11/14/2020, 07/11/2021 Covid-19, Mrna, Lnp-s, Pf, Bivalent, 30 Mcg, IM, 12 yrs and above (Pfizer) 07/21/2022 Pneumococcal Conjugate Vacc, 13 Valent (Prevnar) 03/16/2015 Pneumococcal Conjugate Vaccine, 20-valent ([id number]) 07/21/2022 Pneumococcal Polysaccharide PPV23 (Pneumovax) 07/18/2007, 03/05/2019 SEASONAL INFLUENZA, PF, 6 M & Above, IM , (FLULAVAL or FLUZONE) 07/28/2017, 06/28/2018 Season Influenza, Quad, PF, Adjuvanted, 65+ Yrs, IM (FLUAD) 06/16/2020 Seasonal Influenza, Quadrivalent Hd (Fluzone Hd) 06/08/2021, 06/16/2022, 06/07/2023 Seasonal Influenza, Quadrivalent, No Preserve, IM 08/17/2015, 06/27/2016 Seasonal Influenza, Split, IIV3, With Preserve, Inj 09/16/2001, 09/28/2004, 07/12/2006, 07/18/2007,07/09/2008, 08/13/2009, 07/12/2010, 07/18/2011, 06/18/2012, 07/01/2013, 07/22/2014, 09/18/2014 Seasonal Influenza, Trivalent, Adjuvanted, 65+ yrs 06/09/2019 TD - Tetanus/Diptheria (ADULT) 10/01/2001 TD, Preservative Free 09/17/2019 TDAP (age 11 and older)(Adacel) 08/10/2011 Varicella Zoster Vaccine (Adult) 07/22/2012 Zoster Vaccine Recombinant (Shingrix) 09/15/2019, 04/25/2020 Past Medical History: Diagnosis Date Acute cystitis 12/23/2013 >100,000 E coli, pansensitive Acute cystitis 01/28/2014 10-100,000 col E coli, pansensitive Age-related osteoporosis without current pathological fracture 01/18/2021 Allergic rhinitis due to other allergen Asthma, allergic Carotid stenosis, symptomatic w/o infarct 03/31/2011 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 05/10 Colon polyps 03/03/2013 Dyslipidemia, goal LDL below 100 01/30/2011 ETD (Eustachian tube dysfunction), bilateral 03/04/2020 acute Follicular lymphoma (HCC) 10/2013 Gastritis 03/03/2013 mild on EGD GERD (gastroesophageal reflux disease) 11/13/2014 Hemorrhoids, external without complications History of tobacco use Hx of nonmelanoma skin cancer 08/21/2017 basal cell carcinoma (R central chest) Internal hemorrhoids Iron deficiency 03/27/2017 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) 06/24/2018 Major depressive disorder, single episode, mild (HCC) 12/07/2017 Moderate obstructive and restrictive lung disease 06/01/2011 PFT: 05/2011, 2008 ISELA on CPAP 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 09/11/2008 Pulmonary emphysema (HCC) 04/16/2023 CXR TIA (transient ischemic attack) Past Surgical History: Procedure Laterality Date BREAST LESION,OTHER,EXCISION 1994 Breast Lesion Excise CERV;VAG CANCER SCREEN;PEL & B 03/2000 COLONOSCOPY 03/03/2013 diverticulosis, polyps, internal hemorrhoids COLONOSCOPY, DIAGNOSTIC (RECTUM) 07/31/2017 diverticulosis/[facility] COLONOSCOPY, DIAGNOSTIC (RECTUM) 09/09/2021 diverticulosis / [facility] COLORECTAL CANCER SCREEN; NOT AT RISK 11/[address] ABDOMEN/PELVIS 04/02/2013 mesenteric lymphadenopathy concerning for lymphoma DIGITAL RECTAL EXAM,ANNUAL 03/2000 EGD, FLEXIBLE, DIAGNOSTIC 03/03/2013 mild gastritis EGD, FLEXIBLE, DIAGNOSTIC 07/31/2017 normal bx, hiatal hernia/[facility] EGD, FLEXIBLE, DIAGNOSTIC 10/14/2021 reflux esophagitis, hiatal hernia / [facility] EGD, FLEXIBLE, DIAGNOSTIC 09/09/2021 hiatal hernia / [facility] HEMORRHOIDECTOMY, SIMPLE, 1 COLUMN 1989 Hemorrhoidectomy,Int/Ext,Simple MAMMOGRAM SCREENING-BILATERAL 03/2000 SIGMOIDOSCOPY, DIAGNOSTIC 1996 SPIROMETRY B/A BRONCHODILATOR 01/06/2005 obstructive airway disease THROMBOENDARECTOMY W/PATCH,NECK INCISION Right carotid endarterectomy done in [place] TOTAL ABD HYSTERECTOMY W/WO REMOVAL OF TUBE(S) 1974 non cancer reasons TOTAL HIP REPLACEMENT & PROSTHESIS 08/19/2008 left-dr ilya gamboa Adhesive tape and Ginger shannon [dextromethorphan-guaifenesin] Current Outpatient Medications Medication Sig Dispense Refill FISH OIL 1000 MG PO CAPS Take 1 Capsule by mouth in the morning. Multiple Vitamins-Minerals (CENTRUM SILVER 50+WOMEN) TABS Take 1 Tab by mouth daily. oxygen GAS 2.5 LPM bled through cpap. 1 Each 0 DIURETIC TITRATION PLAN If no improvement on day 3, contact heart failure managing provider. 1 Each0 Nebulizers (NEBULIZER COMPRESSOR) [facility] Inhale via nebulizer. Use as directed. 1 Each 1 Iron 325 (65 Fe) MG Oral Tablet Take 1 Tablet by mouth daily. Cranberry 500 MG Oral Capsule Take 1 Capsule by mouth in the morning and 1 Capsule before bedtime. 50 Cap Ggiqddc-Pkwrslula-Iaax 333-133-5 MG Oral Tablet Take 1 Tablet by mouth daily. Anoro Ellipta 62.5-25 MCG/INH Inhalation Aerosol Powder Breath Activated (umeclidinium-vilanterol) Inhale by mouth 1 Puff in the morning. 30 Each 11 Fluticasone Furoate 100 MCG/ACT Inhalation Aerosol Powder Breath Activated (ARNUITY ellipta) Inhaleby mouth 1 Puff in the morning. In addition to anoro. 30 Each 11 Aspirin 81 MG Oral Tablet Chewable Take 1 Tablet by mouth in the morning. Fluticasone Propionate 50 MCG/ACT Nasal Suspension Administer 2 Sprays into each nostril in the morning. 16 g 3 Loratadine 10 MG Oral Tablet (Claritin) Take 1 Tablet by mouth in the morning. For nasal congestionand ear pressure. 30 Tablet 1 Docusate Sodium 100 MG Oral Capsule (Colace) Take 2 Capsules by mouth 2 times a day as needed. Albuterol Sulfate HFA 108 (90 Base) MCG/ACT Inhalation Aerosol Solution Inhale 2 Puffs by mouth every 4 hours as needed for Cough, Shortness of Breath or Wheezing. 18 g 5 Montelukast Sodium 10 MG Oral Tablet (Singulair) TAKE ONE TABLET BY MOUTH EVERY DAY 90 Tablet 3 Pantoprazole Sodium 40 MG Oral Tablet Delayed Release (Protonix) TAKE ONE TABLET EVERY DAY 90 Tablet 3 Meclizine HCl 12.5 MG Oral Tablet (Antivert) Take 1 Tablet by mouth 3 times a day as needed for Dizziness. 30 Tablet 0 Ipratropium-Albuterol 0.5-2.5 (3) MG/3ML Inhalation Solution (Duoneb) Inhale 3 mL via nebulizer every 6 hours as needed for Shortness of Breath or Wheezing. 360 mL 3 Atorvastatin Calcium 40 MG Oral Tablet (Lipitor) Take 1 Tablet by mouth daily. 90 Tablet 1 Clopidogrel Bisulfate 75 MG Oral Tablet (pLAVix) Take 1 Tablet by mouth daily. 90 Tablet 1 Diclofenac Sodium 1 % External Gel (Voltaren) Apply 2 g topically to affected area daily as needed for Pain. Apply to L shoulder 350 g 2 Premarin 0.625 MG/GM Vaginal Cream (Estrogens Conjugated) Administer 0.5 g into the vagina at bedtime on Sunday and Sunday only. 42.5 g 1 Benzonatate 100 MG Oral Capsule Take 1 Capsule by mouth 3 times a day as needed for Cough. 30 Capsule 1 Furosemide 40 MG Oral Tablet (Lasix) One tablet daily with an extra tablet as needed for swelling 120 Tablet 3 Ramelteon 8 MG Oral Tablet (Rozerem) TAKE ONE TABLET AT BEDTIME 30 Tablet 5 Calmoseptine 0.44-20.6 % External Ointment (Menthol-Zinc Oxide) Apply topically to affected area asneeded. Apply to vaginal area Acetaminophen 325 MG Oral Tablet (Tylenol) Take 1 Tablet by mouth every 6 hours as needed. Famotidine 20 MG Oral Tablet (Pepcid) Take 1 Tablet by mouth 2 times a day as needed for Heartburn.180 Tablet 1 Losartan Potassium 50 MG Oral Tablet (Cozaar) Take 1 Tablet by mouth daily. 180 Tablet 1 Gabapentin 300 MG Oral Capsule (Neurontin) TAKE THREE CAPSULES AT BEDTIME 90 Capsule 3 Clobetasol Propionate 0.05 % External Cream (Temovate) Apply to area twice daily x 1 month , then nightly x 2 months, then twice weekly x 3 months 60 g 1 No current facility-administered medications for this visit. 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 Employer[employer] Tobacco Use Smoking status: Former Packs/day: 0.50 Years: 46.00 Additional pack years: 0.00 Total pack years: 23.00 Types: Cigarettes Quit date: 10/01/2001 Years since quittin.8 Smokeless tobacco: Never Vaping Use Vaping Use: Never used Substance and Sexual Activity Alcohol use: No Drug use: No Sexual activity: Yes Partners: Male Other Topics Concern Not on file Social History Narrative 10/2021 Social Determinants of Health Financial Resource Strain: Not on file Food Insecurity: No Food Insecurity (03/16/2023) Hunger Vital Sign Worried About Running Out of Food in the Last Year: Never true Ran Out of Food in the Last Year: Never true Transportation Needs: Not on file Physical Activity: Not on file Stress: Not on file Social Connections: Not on file Intimate Partner Violence: Not on file Housing Stability: Not on file Occupation: [employer] Occupational/Environmental Exposures: cotton dust Lives by herself in an apartment. Smoking: as above Family History Problem Relation Age of Onset Stroke Mother CVA Stroke Father CVA Family Status Relation Status Mo Fa Bro Alive hypercholesterolemia Review of Systems Constitutional: Positive for fatigue. Negative for chills and diaphoresis. HENT: Negative for postnasal drip. Respiratory: Positive for cough and shortness of breath. Negative for apnea and chest tightness. Cardiovascular: Negative for chest pain, palpitations and leg swelling. Musculoskeletal: Positive for arthralgias. Negative for neck pain and neck stiffness. Skin: Negative. Allergic/Immunologic: Negative for environmental allergies and food allergies. Hematological: Positive for adenopathy. Does not bruise/bleed easily. BP 128/78 | Pulse 80 | Temp 35.9 C (96.7 F) (Tympanic) | Resp 16 | Ht 1.626 m (5' 4") | Wt 70.8kg (156 lb) | SpO2 93% | BMI 26.78 kg/m | BSA 1.79 m Physical Exam Constitutional: General: She is not in acute distress. Appearance: She is well-developed. She is not ill-appearing. Pulmonary: Comments: No SO B or cough while talking. Neurological: Mental Status: She is oriented to person, place, and time. Psychiatric: Mood and Affect: Mood normal. Behavior: Behavior normal. DATA Pertinent labs: reviewed from 07/03/23 Imaging: reviewed CT chest from 07/11/23 with mediastinal and hilar Lns and LLL nodular infiltrate. Extensive CL emphysema. Pulmonary Function Test Results: reveiewed from 2018 without obstruction but low DLCO. Walk testing: none Echocardiogram: 07/2023- grade 2 DD and LA enlargement. Assessment: Mediastinal adenopathy (Primary) Pulmonary nodules Centrilobular emphysema (HCC) Hemoptysis Lymphadenopathy is likely from Lymphoma. LLL nodule, ? Infection Vs malignancy. Pt is at risk due to age and h/o extensive smoking/emphysema. Recommendation- Bronch and EBUS. LLL BAL and EBUS. Send sample for infections including AFB also. Explained the process to pt in detail including anesthesia. She expressed understanding. She will have to hold Plavix for atleast 5 days before the procedure. C/w spiriva and flovent as now. Awaiting to get CPAP back, was taken away since machine as recalled. Uptodate with vaccinations. Patient will be seen back in Pulmonary clinic in 1 months, and was advised to contact me sooner with any questions, concerns or deteriorating symptoms. Highly complex as above. D.w pt and her daughter. Prosper Bales MD Pulmonary Medicine, [address] [address] This chart was completed in part utilizing Fluency Direct Speech Voice Recognition Software. Randomword insertions, pronoun errors, and incomplete sentences are an occasional consequence of this system due to software limitations, and ambient noise. Any questions or concerns about the content, text, or information contained within the body of this dictation should be directly addressed to the provider for clarification. documented in this encounter Procedure Notes * Rhys Humphrey MD - 08/10/2023 12:12 PM ESTAssociated Order(s): BRONCHOSCOPY [facility] Patient Name: Keisha Linares Procedure Date: 08/10/2023 12:12 PM Date of : 1940 Admit Type: Outpatient Note Status: Finalized Date of : 1940 Admit Type: Outpatient Age: 82 Room: Operating Room Gender: Female Note Status: Finalized Procedure: Bronchoscopy Indications: Left lower lobe nodule, Hilar lymphadenopathy of the left side, Mediastinal adenopathy Providers: Surjit Fernandez MD Referring MD: Rhys Humphrey (Referring MD) Medicines: Lidocaine 4% applied to cords 5 mL Complications: No immediate complications Procedure: Pre-Anesthesia Assessment: - A History and Physical has been performed. The patient's medications, allergies and sensitivities have been reviewed. - The risks and benefits of the procedure and the sedation options and risks were discussed with the patient. All questions were answered and informed consent was obtained. - Pre-procedure physical examination revealed no contraindications to sedation. - General anesthesia under the supervision of an anesthesiologist was determined to be medically necessary for this procedure based on complex procedure (EBUS, EM Navigation). After obtaining informed consent, the [id number] Bronchoscope ([id number]) was introduced through the mouth, via the endotracheal tube (the patient was intubated for the procedure) and advanced to the tracheobronchial tree of both lungs. All instruments were visually inspected immediately before and after removal from the patient to ensure they are fully intact. the BF-H190 Bronchoscope ([id number]) was introduced through the mouth, via the endotracheal tube (the patient was intubated for the procedure) and advanced to the tracheobronchial tree of both lungs. All instruments were visually inspected immediately before and after removal from the patient to ensure they are fully intact. The procedure was accomplished without difficulty. The patient tolerated the procedure well. The total duration of the procedure was 51 minutes. Findings & Specimens: Left Lung Abnormalities: A large completely obstructing polypoid lesion was found proximally, at the orifice in the superior segment of the left lower lobe (B6). Notable, mucoid, thick secretions were found throughout the left tracheobronchial tree. They were not obstructing the airway. Washings were obtained in the entire tracheobronchial tree and sent for cell count, bacterial culture, viral smears & culture, and fungal & AFB analysis and cytology. The return was blood-tinged. Multiple specimens were obtained and pooled into one specimen, which was sent for analysis. The bronchoscope was advanced until wedged at the desired location for bronchoalveolar lavage. BAL was performed in the left upper lobe, in the left lower lobe, in the right upper lobe and in the right middle lobe of the lung and sent for cell count, bacterial culture, viral smears & culture, and fungal & AFB analysis and cytology. 190 mL of fluid were instilled. 100 mL were returned. The return was mucopurulent. Mucous plugs were present in the return fluid. Multiple specimens were obtained and pooled into one specimen, which was sent for analysis. An endobronchial biopsy was performed in the superior segment of the left lower lobe using forceps and sent for cell count, bacterial culture, viral smears & culture, and fungal & AFB analysis and cytology. One sample was obtained. Endobronchial needle aspiration of a lesion was performed inthe superior segment of the left lower lobe using a Evans 21 gauge needle and sent for cell count, bacterial culture, viral smears & culture, and fungal & AFB analysis and cytology. One sample was obtained. Transbronchial needle aspiration of a mediastinal and left hilar lymph node was performed in the right paratracheal area and in the left hilum using an Olympus ViziShot 2 22 gauge needle and sent for cell count, bacterial culture, viral smears & culture, and fungal & AFB analysis and cytology. The procedure was guided by ultrasound. Transbronchial needle aspiration technique was selected because the sampling site was not visible endoscopically. Five samples were obtained. An endobronchial ultrasound endoscope was utilized in order to assist with guiding the biopsy needle in the right paratracheal area and in the left hilum. Rapid On-Site Evaluation (ERICKSON): Preliminary cytology of the lesions in the right paratracheal area and in the left hilum was suggestive of atypical cells (final results are pending). Impression: - A lesion was found in the superior segment of the left lower lobe (B6). - Notable, mucoid, thick secretions were found throughout the left tracheobronchial tree. - Washings were obtained. - Bronchoalveolar lavage was performed. - An endobronchial biopsy was performed. - Endobronchial needle aspiration was performed. - A transbronchial needle aspiration was performed. - Endobronchial ultrasound was performed. - Rapid On-Site Evaluation (ERICKSON): Preliminary cytology of the lesion in the right paratracheal area and in the left hilum was suggestive of atypical cells (final results are pending). Recommendation: - Await BAL, biopsy, culture, cytology and washing results. - Follow up with bronchoscopist as previously scheduled. Surjit Fernandez MD 08/10/2023 2:54:59 PM This report has been signed electronically. CC Letter to: Rhys Humphrey (CC) documented in this encounter Nursing Notes * Jefe Nascimento RN - 08/10/2023 5:14 PM EST [place] [address] [facility] Discharge Note Name: Keisha Linares Date: 08/10/2023 Time: 5:15 PM Discharge Disposition: Home Responsible adult as escort home: daughter Transport Mode: Ambulatory Accompanied by: Navjot Nascimento RN To: Car Belongings with patient: Yes Patient meets criteria to be transferred or discharged. * Jefe Nascimento RN - 08/10/2023 3:01 PM EST 14:50 O2 sat 87% with n.c O2 applied via simple mask. Pt remains A+Ox3 and denies any needs when asked. Tolerating ice chips well. 14:50 O2 sat low 90's with simple mask. Dr Dominguez made aware. Order received saritha duoneb and respiratory therapy tiger text. Pt denies any needs when asked. 15:15 Pt remaisn on O2 via simple mask Dr Fernandez made aware and order received for solumedrol 60mf IVx1 and unasyn x1. 15:[address] [facility]. O2 via nc. A+Ox3. Tolerating po fluids well and pleasant. Daughter at bedside. 1641 Dr Fernandez in to see pt. Ok to discharge patient home if O2 sat >85% with room air. Pt has been off O2 and O2 sat high 80's to low 90's with room air * Nay Slade RN - 08/07/2023 9:42 AM EST Patient identified by: name/birthdate Person taught: Child- Elva. Martin case procedure confirmed with patient/parent/guardian - no consent signed. Laterality confirmed as N/a Surgery date at time of Pre-Surgery Center Encounter: 08/10/2023. What procedure is patient having? BRONCHOSCOPY, RIGID/FLEXIBLE, INCLUDE FLUORO GUIDANCE, WHEN PERFORMED; W/ EBUS GUIDED TRANSTRACH AND/OR TRANSBRONCH SAMPLING, 1 OR 2 MEDIASTINAL AND/OR HILAR LYMPH NODE STATIONS/STRUCTURES (12006) In an emergency, is patient willing to accept blood products or blood transfusion? Unknown. Do you need to place a blood bank order? No Anesthesia consent pool notified? N/A Anesthesia evaluation requested per case documentation? No Preop Evaluation Requested? No PATIENT EDUCATION SCREENING Person taught: Anyi. Motivation Level: Asks Questions and Eager to Learn Language Barrier: No Physical Barrier: N/A METHOD: Lecture-telephone interview Patient Preferred Learning Methods: Lecture-Telephone interview Health History interview completed, questions answered, and the following patient instructions provided via telephone interview: Preoperative bathing instructions General preoperative instructions Medication instructions NPO instructions - If your normal morning routine take your Inhaler, Atorvastatin, Pepcid, Protonix, and Singulair the morning of surgery. If you take metformin, hold it the evening before surgery as well. No tobaccoproducts after midnight. Per Anyi, pt's Plavix is on hold but her low dose ASA is not on hold. Anyi instructed for pt to stop her fish oil and multivitamin until after her procedure. OUTCOME: State / Describe / Explain and Needs Reinforcement * Nay Slade RN - 08/01/2023 2:44 PM EDT Left message on home phone for return call @ [phone] by Patient at least one week prior to surgery date or to leave a number where they can be reached . Instructed clinic open hours are M-F 8:00a- 4:00p. documented in this encounter Plan of Treatment Upcoming Encounters Date Type Department Care Team (Late st Contact Info) Description 08/11/2023 12:00 PM EST Scheduled Telephone [facility] [address] [place] [address] [facility], Nurse [facility] [address] [facility] [place] [address] 08/15/2023 10:30 AM EST Scheduled Telephone [facility], [facility] [address] [place] [address] [facility] Nurse Triage [address] [facility] [place] [address] 08/30/2023 11:15 AM EST Office Visit Hematology/Oncology State Arvind Christensen [address] [place] [address] [address] Martínez Lopes MD [address] [facility] [place] [address] 09/17/2023 9:40 AM EST Office Visit Dermatology [address] [place] [address] Marycruz Almazan PA-C [address] [place] [address] [place] [address] 10/03/2023 10:30 AM EST Office Visit [facility] Disorders [facility]tr [facility] [address] [facility] [place] [phone] Sosa Freeman CRNP [address] [place] [address] 10/16/2023 11:30 AM EST Office Visit Gastroenterology, [facility] [address] [facility] [place] [address] Lizzette Silva CRNP [address] [place] [address] 12/10/2023 9:20 AM EDT Office Visit Family Medicine [address] [place] [phone] Rhys Humphrey MD [address] [place] [address] [place] [address] 12/27/2023 11:00 AM EDT Office Visit Cardiology [address] [place] [address] Mi Neil PA-C [address] [facility] [place] [address] 03/18/2024 9:00 AM EDT Nurse Only Ancillary [address] [place] [address] [place], Nurse Annual [address] [place] [address] Pending Results Name Type Priority Associated Diagnoses Date /Time CULTURE,FUNGUS,NON-DERM Lab Routine Lung nodule 08/10/2023 1:10 PM EST CULTURE,FUNGUS,NON-DERM Lab Routine Lung nodule 08/10/2023 1:11 PM EST CULTURE,FUNGUS,NON-DERM Lab Routine Lung nodule 08/10/2023 1:12 PM EST CULTURE,FUNGUS,NON-DERM Lab Routine Lung nodule 08/10/2023 1:13 PM EST CULTURE,FUNGUS,NON-DERM Lab Routine Lung nodule 08/10/2023 1:15 PM EST SURGICAL PATHOLOGY Pathology Routine Lung nodule 08/10/2023 1:58 PM EST CYTOLOGY Pathology Routine Lung nodule 08/10/2023 1:10 PM EST CULTURE, AFB Lab Routine Lung nodule 08/10/2023 1:10 PM EST CULTURE, AFB Lab Routine Lung nodule 08/10/2023 1:11 PM EST CULTURE, AFB Lab Routine Lung nodule 08/10/2023 1:12 PM EST CULTURE, AFB Lab Routine Lung nodule 08/10/2023 1:13 PM EST CULTURE, AFB Lab Routine Lung nodule 08/10/2023 1:15 PM EST CULTURE, BRONCHIAL, QUANTITATIVE Lab Routine Lung nodule 08/10/2023 1:10 PM EST CULTURE, BRONCHIAL, QUANTITATIVE Lab Routine Lung nodule 08/10/2023 1:11 PM EST CULTURE, BRONCHIAL, QUANTITATIVE Lab Routine Lung nodule 08/10/2023 1:12 PM EST CULTURE, BRONCHIAL, QUANTITATIVE Lab Routine Lung nodule 08/10/2023 1:13 PM EST CULTURE, BRONCHIAL, QUANTITATIVE Lab Routine Lung nodule 08/10/2023 1:15 PM EST T-CELL SUBSETS, BRONCHOALVEOLAR LAVAGE Lab Routine Lung nodule 08/10/2023 1:31 PM EST Scheduled Orders Name Type Priority Associated Diagnoses Orde r Schedule EKG EKG STAT Pre-op testing One Time for 1 Occurrences starting 08/10/2023 until 08/10/2023 SURGICAL PATHOLOGY Pathology Routine Lung nodule Release Upon Ordering for 1 Occurrences starting 08/10/2023 CYTOLOGY Pathology Routine Lung nodule Release Upon Ordering for 1 Occurrences starting 08/10/2023 CULTURE, AFB Lab Routine Lung nodule Release Upon Ordering for 1 Occurrences starting 08/10/2023 CULTURE, AFB Lab Routine Lung nodule Release Upon Ordering for 1 Occurrences starting 08/10/2023 CULTURE, AFB Lab Routine Lung nodule Release Upon Ordering for 1 Occurrences starting 08/10/2023 CULTURE, AFB Lab Routine Lung nodule Release Upon Ordering for 1 Occurrences starting 08/10/2023 CULTURE, AFB Lab Routine Lung nodule Release Upon Ordering for 1 Occurrences starting 08/10/2023 T-CELL SUBSETS, BRONCHOALVEOLAR LAVAGE Lab Routine Lung nodule Release Upon Ordering for 1 Occurrences starting 08/10/2023 Scheduled Procedures Name Priority Associated Diagnoses Date/Ti [...] D LEVEL ONCE IN A LIFETIME-USE SMARTSET# [id number] Completed 06/29/2020, 03/16/2015 Pneumococcal Vaccine: 65+ Years [...] Not on filedocumented as of this encounter Procedures Procedure Name Priority Date/Time Associated Diagnosis Comments XR CHEST 1 VIEW Routine 08/10/2023 2:42 PM EST CULTURE, BRONCHIAL, QUANTITATIVE Routine 08/10/2023 1:15 PM EST Lung nodule CULTURE,FUNGUS,NON-DE RM Routine 08/10/2023 1:15 PM EST Lung nodule CULTURE, BRONCHIAL, QUANTITATIVE Routine 08/10/2023 1:13 PM EST Lung nodule CULTURE,FUNGUS,NON-DE RM Routine 08/10/2023 1:13 PM EST Lung nodule CULTURE, BRONCHIAL, QUANTITATIVE Routine 08/10/2023 1:12 PM EST Lung nodule CULTURE,FUNGUS,NON-DE RM Routine 08/10/2023 1:12 PM EST Lung nodule CULTURE, BRONCHIAL, QUANTITATIVE Routine 08/10/2023 1:11 PM EST Lung nodule CULTURE,FUNGUS,NON-DE RM Routine 08/10/2023 1:11 PM EST Lung nodule CULTURE, BRONCHIAL, QUANTITATIVE Routine 08/10/2023 1:10 PM EST Lung nodule CULTURE,FUNGUS,NON-DE RM Routine 08/10/2023 1:10 PM EST Lung nodule GLUCOSE METER, POINT OF CARE CELESTINA 08/10/2023 12:17 PM EST BRONCHOSCOPY 08/10/2023 12:12 PM EST PT INR STAT 08/10/2023 11:52 AM EST documented in this encounter Results * XR CHEST 1 VIEW (08/10/2023 2:42 PM EST) Anatomical Region Laterality Modality Chest Digital Radiogra phy 08/10/2023 2:28 PM EST Impressions 08/10/2023 3:05 PM EST IMPRESSION: 1. There is diffuse prominence of the interstitium bilaterally, nonspecific but may be related to mild edema. 2. Mild patchy density is seen in the left lung base, which may be related to atelectasis or infection. Chest x-ray follow-up is recommended. THIS DOCUMENT HAS BEEN ELECTRONICALLY SIGNED BY DO Parish FRANKEL 08/10/2023 3:05 PM EST PROCEDURE INFORMATION: Exam: XR Chest Exam date and time: 08/10/2023 2:28 PM Age: 82 years old Clinical indication: Other: Post ebus TECHNIQUE: Imaging protocol: Radiologic exam of the chest. Views: 1 view. COMPARISON: CT CAP WITH(Adult) 07/11/2023 11:26 AM FINDINGS: Tubes, catheters and devices: None. Lungs: Moderate emphysematous changes are seen bilaterally. There is diffuse prominence of the interstitium bilaterally, which may be related to edema. More focal patchy opacity is seen in the left lung base, which may be related to atelectasis or infection. Pleural spaces: No significant pleural effusion or pneumothorax. Heart/Mediastinum: No cardiomegaly. Calcification is noted in the thoracic aorta. Bones/joints: Degenerative changes are seen in the spine. Procedure Note Letitia Hinton DO - 08/10/2023 PROCEDURE INFORMATION: Exam: XR Chest Exam date and time: 08/10/2023 2:28 PM Age: 82 years old Clinical indication: Other: Post ebus TECHNIQUE: Imaging protocol: Radiologic exam of the chest. Views: 1 view. COMPARISON: CT CAP WITH(Adult) 07/11/2023 11:26 AM FINDINGS: Tubes, catheters and devices: None. Lungs: Moderate emphysematous changes are seen bilaterally. There isdiffuse prominence of the interstitium bilaterally, which may be related to edema. More focal patchy opacity is seen in the left lung base, which may berelated to atelectasis or infection. Pleural spaces: No significant pleural effusion or pneumothorax. Heart/Mediastinum: No cardiomegaly. Calcification is noted in thethoracic aorta. Bones/joints: Degenerative changes are seen in the spine. IMPRESSION IMPRESSION: 1. There is diffuse prominence of the interstitium bilaterally,nonspecific but may be related to mild edema. 2. Mild patchy density is seen in the left lung base, which may be relatedto atelectasis or infection. Chest x-ray follow-up is recommended. THIS DOCUMENT HAS BEEN ELECTRONICALLY SIGNED BY LETITIA HINTON DO Surjit Fernandez MD RADIOLOGY (RAD GENER AL) * GLUCOSE METER, POINT OF CARE (08/10/2023 12:17 PM EST) Glucose Meter 116 70 - 120 mg/dL 08/10/2023 12:21 PM EST [facility] Blood Whole blood specimen / Unknown 08/10/2023 12:17 PM EST 08/10/2023 12:21 PM EST Surjit Fernandez MD LAB POINT OF CARE TE ST DOCKED DEVICE UNSOLICITED RESULTS [facility] [address] [place] [address] * BRONCHOSCOPY (08/10/2023 12:12 PM EST) 08/10/2023 12:1 2 PM EST Narrative Procedure Note Rhys Humphrey MD - 08/10/2023 12:12 PM EST [facility] Patient Name: Keisha Linares Procedure Date: 08/10/2023 12:12 PMMRN: [id number] Date of : 1940 Admit Type: Outpatient Note Status:Finalized Date of : 1940 Admit Type: Outpatient Age: 82 Room: Operating Room Gender: Female Note Status: Finalized Procedure: Bronchoscopy Indications: Left lower lobe nodule, Hilar lymphadenopathy ofthe left side, Mediastinal adenopathy Providers: Surjit Fernandez MD Referring MD: Rhys Humphrey (Referring MD) Medicines: Lidocaine 4% applied to cords 5 mL Complications: No immediate complications Procedure: Pre-Anesthesia Assessment: - A History and Physical has been performed. Thepatient's medications, allergies and sensitivities have been reviewed. - The risks and benefits of the procedure and thesedation options and risks were discussed with the patient. All questions wereanswered and informed consent was obtained. - Pre-procedure physical examination revealed nocontraindications to sedation. - General anesthesia under the supervision of ananesthesiologist was determined to be medically necessary for this procedure based oncomplex procedure (EBUS, EM Navigation). After obtaining informed consent, the BF-[id number] ([id number]) was introduced through the mouth, via the endotracheal tube (thepatient was intubated for the procedure) and advanced to the tracheobronchialtree of both lungs. All instruments were visually inspected immediately before andafter removal from the patient to ensure they are fully intact. the [id number] ([id number]) was introduced through the mouth, via the endotracheal tube (thepatient was intubated for the procedure) and advanced to the tracheobronchialtree of both lungs. All instruments were visually inspected immediately before andafter removal from the patient to ensure they are fully intact. The procedure wasaccomplished without difficulty. The patient tolerated the procedure well. The totalduration of the procedure was 51 minutes. Findings & Specimens: Left Lung Abnormalities: A large completely obstructing polypoidlesion was found proximally, at the orifice in the superior segment of the left lower lobe (B6). Notable,mucoid, thick secretions were found throughout the left tracheobronchial tree. They were notobstructing the airway. Washings were obtained in the entire tracheobronchial tree and sent for cell count,bacterial culture, viral smears & culture, and fungal & AFB analysis and cytology. The return wasblood-tinged. Multiple specimens were obtained and pooled into one specimen, which was sent for analysis.The bronchoscope was advanced until wedged at the desired location for bronchoalveolar lavage. BAL wasperformed in the left upper lobe, in the left lower lobe, in the right upper lobe and in the right middlelobe of the lung and sent for cell count, bacterial culture, viral smears & culture, and fungal & AFBanalysis and cytology. 190 mL of fluid were instilled. 100 mL were returned. The return wasmucopurulent. Mucous plugs were present in the return fluid. Multiple specimens were obtained and pooled intoone specimen, which was sent for analysis. An endobronchial biopsy was performed in the superiorsegment of the left lower lobe using forceps and sent for cell count, bacterial culture, viral smears &culture, and fungal & AFB analysis and cytology. One sample was obtained. Endobronchial needleaspiration of a lesion was performed in the superior segment of the left lower lobe using a Evans 21 gauge needleand sent for cell count, bacterial culture, viral smears & culture, and fungal & AFB analysis andcytology. One sample was obtained. Transbronchial needle aspiration of a mediastinal and left hilarlymph node was performed in the right paratracheal area and in the left hilum using an Olympus ViziShot 222 gauge needle and sent for cell count, bacterial culture, viral smears & culture, and fungal & AFBanalysis and cytology. The procedure was guided by ultrasound. Transbronchial needle aspiration techniquewas selected because the sampling site was not visible endoscopically. Five samples were obtained. Anendobronchial ultrasound endoscope was utilized in order to assist with guiding the biopsy needle in theright paratracheal area and in the left hilum. Rapid On-Site Evaluation (ERICKSON): Preliminary cytologyof the lesions in the right paratracheal area and in the left hilum was suggestive of atypicalcells (final results are pending). Impression: - A lesion was found in the superior segment of theleft lower lobe (B6). - Notable, mucoid, thick secretions were foundthroughout the left tracheobronchial tree. - Washings were obtained. - Bronchoalveolar lavage was performed. - An endobronchial biopsy was performed. - Endobronchial needle aspiration was performed. - A transbronchial needle aspiration wasperformed. - Endobronchial ultrasound was performed. - Rapid On-Site Evaluation (ERICKSON): Preliminarycytology of the lesion in the right paratracheal area and in the left hilum wassuggestive of atypical cells (final results are pending). Recommendation: - Await BAL, biopsy, culture, cytology and washingresults. - Follow up with bronchoscopist as previouslyscheduled. Surjit Fernandez MD 08/10/2023 2:54:59 PM This report has been signed electronically. CC Letter to: Rhys Humphrey (CC) Rhys Humphrey MD GASTRO UPPER * PT INR (08/10/2023 11:52 AM EST) Prothrombin Time 14.8 11.6 - 15.2 seconds 08/10/2023 12:09 PM EST [facility] INR 1.1 0.8 - 1.2 08/10/2023 12:09 PM EST [facility] Blood Venous blood specimen / Unknown Venipuncture / Unknown 08/10/2023 11:52 AM EST 08/10/2023 11:55 AM EST Narrative [facility] - 08/10/2023 12:09 PM EST Warfarin Therapy INR: 2.0-3.0 conventional anticoagulation INR: 2.5-3.5 high intensity anticoagulation Surjit Fernandez MD LAB BLOOD ORDERABLES [facility] [address] [place] [address] documented in this encounter Visit Diagnoses Diagnosis Pre-op testing Preoperative examination, unspecified Lung nodule Solitary pulmonary nodule documented in this encounter Administered Medications Inactive Administered Medications - up to 3 most recent administrations Medication Order MAR Action Action Date Dose Rate Site albuterol-ipratropium (Duoneb) inhalation solution 3 mL 3 mL, Nebulizer, ONCE, On Sun08/10/23 at 1530, For 1 dose, 3 mL = 0.5 mg ipratropium/ 2.5 mg albuterol, PACU Given 08/10/2023 3:06 PM EST 3 mL ampicillin-sulbactam in NSS (Unasyn) ivpb 3 g 3 g, IV Piggyback, ONCE, 1 dose, On Sun08/10/23 at 1600, MIX BEFORE ADMINISTERING! New Bag 08/10/2023 3:43 PM EST 3 g 220 m L/hr methylPREDNISolone sodium succ (SOLU-Medrol) inj 60 mg 60 mg, Intravenous, ONCE, On Sun08/10/23 at 1600, For 1 dose Given 08/10/2023 3:27 PM EST 60 mg documented in this encounter Active and Recently Administered Medications Times are shown in EST. Scheduled Medication Order 08/08/2023 08/09/2023 08/10/2023 albuterol-ipratropium (Duoneb) inhalation solution 3 mL (COMPLETED) 3 mL, Nebulizer, ONCE, On Sun08/10/23 at 1530, For 1 dose, 3 mL = 0.5 mg ipratropium/ 2.5 mg albuterol, PACU 1506 (Given - Provid er: Lenard Cho, TABLET MACHINE OPERATOR) ampicillin-sulbactam in NSS (Unasyn) ivpb 3 g (COMPLETED) 3 g, IV Piggyback, ONCE, 1 dose, On Sun08/10/23 at 1600, MIX BEFORE ADMINISTERING! 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 POLST 10/15/2019 3:17 PM POLST POLST 03/05/2019 POLST FORM Advance Directives and Living Will 01/27/2013 LIVING WILL Advance Directives and Living Will 01/27/2013 LIVING WILL Power of Covering Machine Operator Helper 01/27/2013 POWER OF A TTORNEY Power of Covering Machine Operator Helper 01/27/2013 POWER OF A TTORNEY Healthcare Agents on File Name Relationship Healthcare Agent Relationship Communication Cydney Benito Other - (no specific identity) Second Alternate Health Care Agent Anyi More Adult Child Health Care Roberth r of Covering Machine Operator Helper Care Teams Regional Guide Relationship Specialty Start Date End Date Rhys Humphrey MD [address] [place] [address] [place] [phone] PCP - General Family Medicine 06/09/21 documented as of this encounter
--- OUTSIDE RECORDS SUMMARY | 2023-08-14 23:18 | External Medical Summary ---
Author Name Unknown Address Unknown Organization [id number]:[facility] [place] [address] [place] [id number] Laboratory Report Ordering Provider Test Date Status PADMINI XIE 08/10/2023 13:13:00 Preliminary Observation Date Value Abnormality Reference (Units) Status Bacteria identified in Specimen by Culture 08/10/2023 13:13:00 No fungus isolated to date Preliminary Fungal Smear 08/10/2023 13:13:00 No yeast or hyphae seen. Preliminary Test: Culture, Fungus, Non-D erm
Specimen Source: Lung, Left lower lobe
Specimen Type: Bronchoalveolar Lavage (BAL)
Specimen Date: 08/10/2023 1:13 PM
Result Date: 08/11/2023 3:09 PM
Result Status: Preliminary result
Resulting Lab: [facility]
[address]
[facility] [address]

CULTURE

No fungus isolated to date

STAIN

No yeast or hyphae seen.

null Performing Location [facility] [address] [facility] [address]
--- OUTSIDE RECORDS SUMMARY | 2023-08-14 23:18 | External Medical Summary ---
Author Name Unknown Address Unknown Organization [id number]:[facility] [place] - [address] [place] [id number] Laboratory Report Ordering Provider Test Date Status PADMINI XIE 08/10/2023 13:15:00 Preliminary Observation Date Value Abnormality Reference (Units) Status Bacteria identified in Specimen by Culture 08/10/2023 13:15:00 No fungus isolated to date Preliminary Fungal Smear 08/10/2023 13:15:00 No yeast or hyphae seen. Preliminary Test: Culture, Fungus, Non-D erm
Specimen Source: Lung, Left upper lobe
Specimen Type: Bronchoalveolar Lavage (BAL)
Specimen Date: 08/10/2023 1:15 PM
Result Date: 08/11/2023 3:09 PM
Result Status: Preliminary result
Resulting Lab: [facility]
[address]
[facility] [address]

CULTURE

No fungus isolated to date

STAIN

No yeast or hyphae seen.

null Performing Location [facility] [place] - [address] [facility] [address]
--- OUTSIDE RECORDS SUMMARY | 2023-08-14 23:18 | External Medical Summary | Summary of Care ---
Author Name Unknown Organization [facility] Address [address] [place] [address] Phone [phone] Care Team Providers Care Instructional Interventionist Name Role Phone Rhys Humphrey MD Primary Care Provide r Reason for Visit * Reason Onset Date Comments [facility]: Maintenance 08/11/2023 Encounter Details Date Type Department Care Team (Latest Contact Info) Description 08/11/2023 12:00 PM EST Scheduled Telephone [facility], [facility] [address] [facility] [place] [address] [facility], Nurse [facility] [address] [facility] [place] [address] Hypertensive heart disease with chronic diastolic congestive heart failure (HCC)* Allergies Active Allergy Reactions Criticality Noted Date [...] before bedtime. 50 Cap 0 01/18/2021 Active Vgrfvrd-Wwmombskm-Cc nc 333-133-5 MG Oral Tablet Take 1 Tablet by mouth daily. 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),COPD, group D, by GOLD [...] group D, by GOLD 2017 classification ([facility]) Inhale 3 mL via nebulizer every [...] Tablet (Lasix)Indications:C hronic diastolic congestive heart failure (HCC) One tablet daily with an extra tablet [...] on the couch") Medication Regimen o Other: mindyro, ana luisa, sunni, chandler Self-Management plan o [...] on exertion) 01/07/2013 Obstructive sleep apnea 11/22/2011 0306/2018 Overview: 11/22/11 -- auto CPAP 5-15 01/15/14 oxygen at 2 LPM with CPAP AHP HYPOXEMIA, 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 Communication Note Name: Keisha Linares Situation: patient on for follow up call s/p bronchoscopy. Background: Pt called into triage on 08/05/23 to report nose bleed followed by coughing up blood. Had cold symptoms. Covid test negative. Pt had bronchoscopy , lung biopsy 08/10/23. Started on augmentin 875-125 mg 1 tab twice daily x 7 days. Assessment: Spoke with patient. Pt continues with hoarseness which has been ongoing. Pt has not started her Augmentin today. Daughter picking up from pharmacy today. Reviewed instructions to take twice daily x 7 days until finished. Reviewed [facility]. Noted pt's weight continue to decrease. States wt loss is unintentional. RD referral placed. Wt today 149 lbs. Appetite fair. States she is trying to eat smaller more frequent meals. Pt requesting CM visit soon. Noted that RNCM was just there 08/08/23. Will forward to care team. Wt Readings from Last 10 Encounters: 08/10/23 70.8 kg (156 lb) 07/23/23 70.8 kg (156 lb) 07/16/23 70.8 kg (156 lb) 07/03/23 71 kg (156 lb 9.6 oz) 06/21/23 70.8 kg (156 lb) 06/20/23 70 kg (154 lb 6.4 oz) 06/07/23 70.1 kg (154 lb 9.6 oz) 03/16/23 66.2 kg (146 lb) 03/16/23 66.6 kg (146 lb 12.8 oz) 02/01/23 76.9 kg (169 lb 9.6 oz) Recommendation: Follow up call tomorrow RD referral Telephonic CM call 08/15 Reinforced small frequent snacks to include protein-peanut butter, cheese, lean low sodium meat. Protein shakes such as ensure, boost, carnation instant breakfast. documented in this encounter Plan of Treatment Upcoming Encounters Date Type Department Care Team (Late st Contact Info) Description 08/12/2023 1:30 PM EST Scheduled Telephone [facility], [facility] [address] [place] [address] [facility], Nurse [facility] [address] [place] [address] 08/15/2023 10:30 AM EST Scheduled Telephone [facility], [facility] [address] [place] [place] [address] [facility] Nurse Triage [address] [place] [address] 08/30/2023 11:15 AM EST Office Visit Hematology/Oncology [facility] [address] [facility] [place] [address] Martínez Lopes MD [address] [facility] [place] [address] 09/17/2023 9:40 AM EST Office Visit Dermatology [address] [place] [address] Marycruz Almazan PA-Hector [address] [place] [address] [place] [address] 10/03/2023 10:30 AM EST Office Visit Sleep Disorders [facility] [address] [place] [phone] Sosa Freeman CRNP [address] [place] [address] 10/16/2023 11:30 AM EST Office Visit Gastroenterology, [facility] [address] [place] [address] Lizzette Silva CRNP [address] [place] [address] 12/10/2023 9:20 AM EDT Office Visit Family Medicine [address] [place] [phone] Rhys Humphrey MD [address] [place] [address] [place] [address] 12/27/2023 11:00 AM EDT Office Visit Cardiology [address] [place] [address] Mi Neil, CECI [address] [place] [address] 03/18/2024 9:00 AM EDT Nurse Only Ancillary [address] [place] [address] [place], Nurse [facility] [address] [place] [address] [place] [address] Scheduled Procedures Name Priority Associated Diagnoses Date/Ti [...] D LEVEL ONCE IN A LIFETIME-USE SMARTSET# [id number] Completed 06/29/2020, 03/16/2015 Pneumococcal Vaccine: 65+ Years [...] Not on filedocumented as of this encounter Visit Diagnoses Diagnosis Hypertensive heart disease with chronic diastolic congestive heart failure (HCC)- Primary documented in this encounter Advance Directives Documents on File Type Date Recorded Patient Road Advisor Expl anation POLST 10/15/2019 3:17 PM POLST POLST 03/05/2019 POLST FORM Advance Directives and Living Will 01/27/2013 LIVING WILL Advance Directives and Living Will 01/27/2013 LIVING WILL Power of Managed Care Analyst 01/27/2013 POWER OF A TTORNEY Power of Managed Care Analyst 01/27/2013 POWER OF A TTORNEY Healthcare Agents on File Name Relationship Healthcare Agent Relationship Communication Cydney Benito Other - (no specific identity) Second Alternate Health Care Agent Anyi More Adult Child Health Care Roberth r of Managed Care Analyst Care Teams Instructional Interventionist Relationship Specialty Start Date End Date Rhys Humphrey MD [address] [place] [address] [place] [address] PCP - General Family Medicine 06/09/21 documented as of this encounter
--- OUTSIDE RECORDS SUMMARY | 2023-08-14 23:18 | External Medical Summary ---
Author Name Unknown Address Unknown Organization K01:[facility] [place] - [address] [place] [id number] Laboratory Report Ordering Provider Test Date Status PADMINI XIE 08/10/2023 13:11:00 Preliminary Observation Date Value Abnormality Reference (Units) Status Bacteria identified in Specimen by Culture 08/10/2023 13:11:00 No fungus isolated to date Preliminary Fungal Smear 08/10/2023 13:11:00 No yeast or hyphae seen. Preliminary Test: Culture, Fungus, Non-D erm
Specimen Source: Lung, Right upper lobe
Specimen Type: Bronchoalveolar Lavage (BAL)
Specimen Date: 08/10/2023 1:11 PM
Result Date: 08/11/2023 3:14 PM
Result Status: Preliminary result
Resulting Lab: [facility]
[address]
[facility] [address]

CULTURE

No fungus isolated to date

STAIN

No yeast or hyphae seen.

null Performing Location [facility] [place] - [address] [facility] [address]
--- OUTSIDE RECORDS SUMMARY | 2023-08-14 23:19 | External Medical Summary | Summary of Care ---
Author Name Unknown Organization [facility] Address [address] [place] [address] Phone [phone] Care Team Providers Care Wood Stainer Name Role Phone Rhys Humphrey MD Primary Care Provide r Reason for Visit * Reason Onset Date Comments Triage Advice 08/05/2023 Encounter Details Date Type Department Care Team (Late st Contact Info) Description 08/05/2023 Telephone Family Practice [address] [facility] [address] [place] [address] Elida Oh MD [address] [place], [place] [phone] Triage Advice Allergies Active Allergy Reactions Criticality Noted Date Comments Adhesive Tape Other (Please comment),Hives High 09/29/2008 Caused welts Dextromethorphan-Gu aifenesin Neuro complications (Please comment) Medium 12/23/2021 Feels lightheaded/"foggy" documented as of this encounter (statuses as of 08/05/2023) Medications Medication Sig Dispensed Refills Start Date [...] before bedtime. 50 Cap 0 01/18/2021 Active Jdqujuj-Tcurvattf-Va nc 333-133-5 MG Oral Tablet Take 1 Tablet by mouth daily. 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) Inhale by mouth 1 Puff in [...] COPD, group D, by GOLD 2017 classification ([facility]) Inhale 3 mL via nebulizer every [...] Tablet (Lasix)Indications:C hronic diastolic congestive heart failure ([facility]) One tablet daily with an extra [...] as needed for Cough. 30 Capsule 1 08/03/2023 Active documented as of this encounter (statuses as of 08/05/2023) Active Problems Problem Noted Date Diagnosed Date [...] as of this encounter (statuses as of 08/05/2023) Resolved Problems Problem Noted Date Diagnosed Date [...] as of this encounter (statuses as of 08/05/2023) Immunizations Name Administration Dates Next Due COVID-19 mRNA, LNP-s, No Pre serve, 2-Dose Series ([employer]) 07/11/2021,11/14/2020,10/24/2020 Covid-19, Mrna, Lnp-s, Pf, B ivalent, 30 Mcg, IM, 12 yrs and above (Pfizer) 07/21/2022 Pneumococcal Conjugate Vacc, 13 Valent (Prevnar) 03/16/2015 Pneumococcal Conjugate Vacci ne, 20-valent ([id number]) 07/21/2022 Pneumococcal Polysaccharide PPV23 (Pneumovax) 03/05/2019,07/18/2007 SEASONAL [...] encounter Miscellaneous Notes * Telephone Encounter - Elida Oh MD - 08/05/2023 11:11 AM EST Contacted by nurse triage regarding patient coughing up clotted blood. The family reports she had anosebleed that lasted for awhile yesterday and now she is coughing up clotted blood. I am not very concerned about this it is not uncommon to have blood go down into the esophagus and stomach. If patient develops any active bleeding has chest pain or shortness a breath she should certainly be seen.It appears as if the patient has an upcoming bronchoscopy in his holding Plavix at this time. No intervention needed now if there is no new active bleeding. If patient begins to bleed I would recommend home evaluation. Nurse triage will reach out to family with recommendations. documented in this encounter Plan of Treatment Upcoming Encounters Date Type Department Care Team (Latest Contact Info) Description 08/06/2023 12:00 PM EST Scheduled Telephone [facility], [facility] [address] [place] [address] [facility] Nurse Triage [address] [facility] [place] [address] 08/10/2023 12:33 PM EST Hospital Encounter OR [facility], Operating Room, [facility] - 4th Floor [address] [place] [address] Surjit Fernandez MD [address] [place] [address] 08/10/2023 12:33 PM EST - 08/10/2023 1:52 PM EST Surgery OR [facility], Operating Room, [facility] - 4th Floor [address] [place] [address] Surjit Fernandez MD [address] [place] [address] BRONCHOSCOPY, RIGID/FLEXIBLE, INCLUDE FLUORO GUIDANCE, WHEN PERFORMED; W/ EBUS GUIDED TRANSTRACH AND/OR TRANSBRONCH SAMPLING, 1 OR 2 MEDIASTINAL AND/OR HILAR LYMPH NODE STATIONS/STRUCTURES 09/17/2023 9:40 AM EST Office Visit Dermatology [address] [place] [address] Marycruz Almazan PA-C [address] [place] [address] [place] [address] 10/03/2023 10:30 AM EST Office Visit Sleep Disorders Ctr [facility] [address] [place] [phone] Sosa Freeman CRNP [address] [place] [address] 10/16/2023 11:30 AM EST Office Visit Gastroenterology, [facility] [address] [place] [address] Lizzette Silva CRNP [address] [place] [address] 12/10/2023 9:20 AM EDT Office Visit Family Medicine [address] [place] [phone] Rhys Humphrey MD [address] [place] [address] [place] [address] 12/27/2023 11:00 AM EDT Office Visit Cardiology [address] [place] [address] Mi Neil PA-C [address] [place] [address] 03/18/2024 9:00 AM EDT Nurse Only Ancillary [address] [place] [address] Janinealley, Nurse Annual [address] [place] [address] Scheduled Procedures Name Priority Associated Diagnoses Date/Ti me BRONCHOSCOPY, RIGID/FLEXIBLE , INCLUDE FLUORO GUIDANCE, WHEN PERFORMED; W/ EBUS GUIDED TRANSTRACH AND/OR TRANSBRONCH SAMPLING, 1 OR 2 MEDIASTINAL AND/OR HILAR LYMPH NODE STATIONS/STRUCTURES Lung nodule 08/10/2023 12:33 PM EST ESOPHAGOGASTRODUODENOSCOPY ( EGD), FLEXIBLE, TRANSORAL, [...] D LEVEL ONCE IN A LIFETIME-USE SMARTSET# [id number] Completed 06/29/2020, 03/16/2015 Pneumococcal Vaccine: 65+ Years [...] as of this encounter Visit Diagnoses Diagnosis Epistaxis- Primary Cough with hemoptysis Other hemoptysis Lung nodule Solitary pulmonary nodule documented in this encounter Advance Directives Documents on File Type Date Recorded 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 POLST 10/15/2019 3:17 PM POLST POLST 03/05/2019 POLST FORM Advance Directives and Living Will 01/27/2013 LIVING WILL Advance Directives and Living Will 01/27/2013 LIVING WILL Power of Dental Ceramist 01/27/2013 POWER OF A TTORNEY Power of Dental Ceramist 01/27/2013 POWER OF A TTORNEY Healthcare Agents on File Name Relationship Healthcare Agent Relationship Communication Cydney Benito Other - (no specific identity) Second Alternate Health Care Agent Anyi More Adult Child Health Care Roberth r of Dental Ceramist Care Teams Wood Stainer Relationship Specialty Start Date End Date Rhys Humphrey MD [address] [place] [address] [place] [phone] PCP - General Family Medicine 06/09/21 documented as of this encounter
--- OUTSIDE RECORDS SUMMARY | 2023-08-14 23:19 | External Medical Summary | Summary of Care ---
Author Name Unknown Organization [facility] Address [address] [place] [address] Phone [phone] Care Team Providers Care Senior Mainframe Developer Name Role Phone Rhys Humphrey MD Primary Care Provide r Reason for Visit * Reason Comments [facility]: Maintenance Encounter Details Date Type Department Care Team (Late st Contact Info) Description 08/08/2023 1:00 PM EST [facility] Visit [facility], [facility] [address] [facility] [place] [address] Sarah Vitale, RN [address] [place] [address] Allergies Active Allergy Reactions Criticality Noted Date Comments Adhesive Tape Other (Please comment),Hives High 09/29/2008 Caused welts Dextromethorphan-Gu aifenesin Neuro complications (Please comment) Medium 12/23/2021 Feels lightheaded/"foggy" documented as of this encounter (statuses as of 08/09/2023) Medications Medication Sig Dispensed Refills Start Date [...] before bedtime. 50 Cap 0 01/18/2021 Active Beazdxn-Xkdmfopag-Xa nc 333-133-5 MG Oral Tablet Take 1 Tablet by mouth daily. 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),COPD, group D, by GOLD 2017 classification ([facility]) Inhale by mouth 1 Puff in the [...] COPD, group D, by GOLD 2017 classification ([facility]) Inhale 3 mL via nebulizer every 6 [...] Tablet (Lasix)Indications:C hronic diastolic congestive heart failure ([facility]) One tablet daily with an extra tablet [...] 07/16/2023 Active Benzonatate 100 MG Oral Capsule (Tessalon Perles) TAKE ONE CAPSULE BY MOUTH THREE TIMES DAILY NEEDED FOR cough 30 Capsule 1 08/07/2023 Active documented as of this encounter (statuses as of 08/09/2023) Active Problems Problem Noted Date Diagnosed Date [...] on the couch") Medication Regimen o Other: ana luisa day, sunni, chandler Self-Management plan o Prednisone 40mg [...] as of this encounter (statuses as of 08/09/2023) Resolved Problems Problem Noted Date Diagnosed Date [...] as of this encounter (statuses as of 08/09/2023) Immunizations Name Administration Dates Next Due COVID-19 mRNA, LNP-s, No Pre serve, 2-Dose Series ([employer]) 07/11/2021,11/14/2020,10/24/2020 Covid-19, Mrna, Lnp-s, Pf, B ivalent, 30 Mcg, IM, 12 yrs and above ([employer]) 07/21/2022 Pneumococcal Conjugate Vacc, 13 Valent (Prevnar) 03/16/2015 Pneumococcal Conjugate Vacci ne, 20-valent ([id number]) 07/21/2022 Pneumococcal Polysaccharide PPV23 (Pneumovax) 03/05/2019,07/18/2007 SEASONAL [...] on file documented as of this encounter Progress Notes * Sarah Vitale RN - 08/08/2023 4:14 PM EST Patient seen for Acute visit- patient called in- scheduled for OR/Biopsy Sunday- Plavix to be held x 5 days. Pill packs fixed. Meds permitted to be taken in plastic cup for Sunday morning with sips of water. Patient voices understanding. documented in this encounter Plan of Treatment Upcoming Encounters Date Type Department Care Team (Latest Contact Info) Description 08/10/2023 12:40 PM EST Hospital Encounter OR [facility], Operating Room, [facility] - 4th Floor [address] [place] [address] Surjit Fernandez [facility] [address] [facility] [address] 08/10/2023 12:40 PM EST - 08/10/2023 1:59 PM EST Surgery OR [facility], Operating Room, [facility] - 4th Floor [address] [place] [address] Surjit Fernandez MD [address] [place] [address] BRONCHOSCOPY, RIGID/FLEXIBLE, INCLUDE FLUORO GUIDANCE, WHEN PERFORMED; W/ EBUS GUIDED TRANSTRACH AND/OR TRANSBRONCH SAMPLING, 1 OR 2 MEDIASTINAL AND/OR HILAR LYMPH NODE STATIONS/STRUCTURES 08/11/2023 12:00 PM EST Scheduled Telephone [facility] at [address] [place] [address] [facility] Nurse [address] [place] [address] 08/15/2023 10:30 AM EST Scheduled Telephone [facility] at [facility] [address] [place] [address] [facility] Nurse Triage [address] [place] [address] [place] [address] 08/30/2023 11:15 AM EST Office Visit Hematology/Oncology [facility] [address] [place] [address] Martínez Lopes MD [address] [place] [address] 09/17/2023 9:40 AM EST Office Visit Dermatology [address] [place] [address] Marycruz Almazan PA-C [address] [place] [address] [place] [address] 10/03/2023 10:30 AM EST Office Visit Sleep Disorders [facility] [address] [place] [phone] Sosa Freeman CRNP [address] [place] [address] 10/16/2023 11:30 AM EST Office Visit Gastroenterology, [facility] [address] [place] [address] Lizzette Silva CRNP [address] [place] [address] 12/10/2023 9:20 AM EDT Office Visit Family Medicine [address] [place] [phone] Rhys Humphrey MD [address] [place] [address] [place] [address] 12/27/2023 11:00 AM EDT Office Visit Cardiology [address] [place] [address] Mi Neil PA-C [address] [place] [address] 03/18/2024 9:00 AM EDT Nurse Only Ancillary [place] [place] [address] [place], Nurse [address] [place] [address] Scheduled Procedures Name Priority Associated Diagnoses Date/Ti [...] D LEVEL ONCE IN A LIFETIME-USE SMARTSET# [id number] Completed 06/29/2020, 03/16/2015 Pneumococcal Vaccine: 65+ Years [...] Documents on File Type Date Recorded Patient First Aid Instructor Expl anation POLST 10/15/2019 3:17 PM POLST POLST 03/05/2019 POLST FORM Advance Directives and Living Will 01/27/2013 LIVING WILL Advance Directives and Living Will 01/27/2013 LIVING WILL Power of Flight Attendant Ramp 01/27/2013 POWER OF A TTORNEY Power of Flight Attendant Ramp 01/27/2013 POWER OF A TTORNEY Healthcare Agents on File Name Relationship Healthcare Agent Relationship Communication Cydney Benito Other - (no specific identity) Second Alternate Health Care Agent Anyi More Adult Child Health Care Roberth cooper of Flight Attendant Ramp Care Teams Senior Mainframe Developer Relationship Specialty Start Date End Date Rhys Humphrey MD [address] [place] [address] [place] [phone] PCP - General Family Medicine 06/09/21 documented as of this encounter
--- OUTSIDE RECORDS SUMMARY | 2023-08-14 23:19 | External Medical Summary | Summary of Care ---
Author Name Unknown Organization [facility] Address [address] [place] [address] Phone [phone] Care Team Providers Care Development Representative Name Role Phone Rhys Humphrey MD Primary Care Provide r Reason for Visit * Reason Onset Date Comments [facility]: Maintenance 08/06/2023 Encounter Details Date Type Department Care Team (Late st Contact Info) Description 08/06/2023 12:00 PM EST Scheduled Telephone [facility], [facility] 132 [facility] [place] [address] [facility] Nurse Triage [address] [facility] [place] [address] Allergies Active Allergy Reactions Criticality Noted Date Comments Adhesive Tape Other (Please comment),Hives High 09/29/2008 Caused welts Dextromethorphan-Gu aifenesin Neuro complications (Please comment) Medium 12/23/2021 Feels lightheaded/"foggy" documented as of this encounter (statuses as of 08/06/2023) Medications Medication Sig Dispensed Refills Start Date [...] before bedtime. 50 Cap 0 01/18/2021 Active Wuahouf-Ludhsikel-Nb nc 333-133-5 MG Oral Tablet Take 1 Tablet by mouth daily. 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),COPD, group D, by GOLD 2017 classification ([facility]) Inhale by mouth 1 Puff [...] D, by GOLD 2017 classification ([facility]) Inhale 3 mL via nebulizer [...] hronic diastolic congestive heart failure ([facility]) One tablet daily with an [...] as of this encounter (statuses as of 08/06/2023) Active Problems Problem Noted Date Diagnosed Date [...] Medication Regimen o Other: ana luisa day, chandler moeller Self-Management plan o Prednisone 40mg daily for [...] as of this encounter (statuses as of 08/06/2023) Resolved Problems Problem Noted Date Diagnosed Date [...] as of this encounter (statuses as of 08/06/2023) Immunizations Name Administration Dates Next Due COVID-19 mRNA, LNP-s, No Pre serve, 2-Dose Series ([employer]) 07/11/2021,11/14/2020,10/24/2020 Covid-19, Mrna, Lnp-s, Pf, B ivalent, 30 Mcg, IM, 12 yrs and above ([employer]) 07/21/2022 Pneumococcal Conjugate Vacc, 13 Valent (Prevnar) 03/16/2015 Pneumococcal Conjugate Vacci ne, 20-valent ([id number]) 07/21/2022 Pneumococcal Polysaccharide PPV23 (Pneumovax) 03/05/2019,07/18/2007 SEASONAL [...] encounter Miscellaneous Notes * Telephone Encounter - Estee Verde RN - 08/06/2023 2:44 PM EST [facility]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 Has had cough for past couple of days, is taking Tessalon Perles and Coricidin HBP. Sleeps good at night, appetite is fair, no open areas/rashes on body Has had laryngitis for the 3 years that comes and goes after having carotid surgery, denies fever, chills, no pain, no blurred vision, no headache, no dizziness/light headedness Constitutional: weight is 147.2 lbs this morning, no weakness, and no fatigue Resp: no cough, no sputum, + wheezing, and + dyspnea with exertion Cardiac: no chest pain, no orthopnea, no PND, no edema, no claudication, no palpitations, and + dyspnea on exertion: is her baseline GI: no pain, no heartburn, no diarrhea, no constipation, no blood/melena, no nausea, no vomiting, LBM this AM, urinating wnl's Musculoskeletal: no significant joint or muscle pain and no swelling Neuro: no memory loss, no weakness, no falling, no numbness or tingling, and no vertigo Medication Reconciliation: Does patient take medications as ordered: Yes, independent with daily medications No refills needed at this time Triage follow up scheduled for next week post procedure Sunday call scheduled after Bronchoscopy Estee Verde RN 08/06/2023 documented in this encounter Plan of Treatment Upcoming Encounters Date Type Department Care Team (Latest Contact Info) Description 08/08/2023 9:15 AM EST Scheduled Telephone [place] at [place], [address] [place] [phone] Coordinator, [address] [place] [address] 08/10/2023 12:33 PM EST Hospital Encounter OR [facility], Operating Room, [facility] - 4th Floor [address] [place], [place] [address] Surjit Fernandez MD [address] [place] [facility] [place] [address] 08/10/2023 12:33 PM EST - 08/10/2023 1:52 PM EST Surgery OR [facility], Operating Room, [facility] - 4th Floor [address] [facility] [place] [address] Surjit Fernandez MD [address] [place] [facility] [place] [address] BRONCHOSCOPY, RIGID/FLEXIBLE, INCLUDE FLUORO GUIDANCE, WHEN PERFORMED; W/ EBUS GUIDED TRANSTRACH AND/OR TRANSBRONCH SAMPLING, 1 OR 2 MEDIASTINAL AND/OR HILAR LYMPH NODE STATIONS/STRUCTURES 08/11/2023 12:00 PM EST Scheduled Telephone [facility], [address] [place] [address] [facility] Nurse [address] [place] [address] 08/15/2023 10:30 AM EST [facility]uled Telephone [facility] [address] [place] [address] [facility] Nurse Triage [address] [place] [address] [place] [address] 09/17/2023 9:40 AM EST Office Visit Dermatology [address] [place] [address] Marycruz Almazan PA-C [address] [place] [address] [place] [address] 10/03/2023 10:30 AM EST Office Visit [facility] [address] [facility] [place] [phone] Sosa Freeman CRNP [address] [place] [address] 10/16/2023 11:30 AM EST Office Visit Gastroenterology, [facility] [address] [facility] [facility] [place] [address] Lizzette Silva CRNP [address] [place] [address] 12/10/2023 9:20 AM EDT Office Visit Family Medicine [address] [place] [phone] Rhys Humphrey MD [address] [place] [address] [place] [address] 12/27/2023 11:00 AM EDT Office Visit Cardiology [address] [place] [address] Mi Neil, PAMateo [address] [place] [address] 03/18/2024 9:00 AM EDT Nurse Only Ancillary [address] [place] [address] [place], Nurse Annual Wellness [address] [place] [address] [place] [address] Scheduled Procedures Name Priority Associated Diagnoses Date/Ti [...] D LEVEL ONCE IN A LIFETIME-USE SMARTSET# [id number] Completed 06/29/2020, 03/16/2015 Pneumococcal Vaccine: 65+ Years [...] Documents on File Type Date Recorded Patient Security Software Engineer Expl anation POLST 10/15/2019 3:17 PM POLST POLST 03/05/2019 POLST FORM Advance Directives and Living Will 01/27/2013 LIVING WILL Advance Directives and Living Will 01/27/2013 LIVING WILL Power of Heading Matcher And Assembler 01/27/2013 POWER OF A TTORNEY Power of Heading Matcher And Assembler 01/27/2013 POWER OF A TTORNEY Healthcare Agents on File Name Relationship Healthcare Agent Relationship Communication Cydney Benito Other - (no specific identity) Second Alternate Health Care Agent Anyi More Adult Child Health Care Roberth r of Heading Matcher And Assembler Care Teams Development Representative Relationship Specialty Start Date End Date Rhys Humphrey MD [address] [place] [address] [place] [phone] PCP - General Family Medicine 06/09/21 documented as of this encounter
--- OUTSIDE RECORDS SUMMARY | 2023-08-14 23:19 | External Medical Summary | Summary of Care ---
Author Name Unknown Organization [facility] Address [address] [place] [address] Phone [phone] Care Team Providers Care Musical Instrument Maker Name Role Phone Rhys Humphrey MD Primary Care Provide r Reason for Visit * Reason Onset Date Comments [facility]: Maintenance 08/03/2023 Encounter Details Date Type Department Care Team (Late st Contact Info) Description 08/03/2023 1:00 PM EDT Scheduled Telephone [facility], [facility] [address] [place] [address] Coordinator, [facility] [address] [place] [address] Allergies Active Allergy Reactions Criticality Noted Date [...] Each 0 11/11/2019 Active Nebulizers (NEBULIZER COMPRESSOR) MISCIndications: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 Use as directed. 1 Each 1 11/17/2019 Active Iron 325 (65 Fe) MG Oral Tablet Take 1 Tablet by mouth daily. 0 Active Cranberry 500 MG Oral Capsule Take 1 Capsule by mouth in the morning and 1 Capsule before bedtime. 50 Cap 0 01/18/2021 Active Otecllh-Tovmhbpmq-K inc 333-133-5 MG Oral Tablet Take 1 Tablet by mouth daily. 0 Active Anoro Ellipta 62.5-25 MCG/INH Inhalation Aerosol Powder Breath Activated (umeclidinium-vilan terol)Indications:C OPD, moderate (HCC),COPD, group D, by GOLD 2017 classification ([facility]) Inhale by mouth 1 Puff in [...] 10/06/2022 Active Loratadine 10 MG Oral Tablet (Claritin)Indicatio ns:Dysfunction of both eustachian tubes Take 1 Tablet by mouth in the morning. For nasal congestion and ear pressure. 30 Tablet 1 10/06/2022 Active Docusate Sodium 100 MG Oral Capsule (Colace) Take 2 Capsules by mouth 2 times a day as needed. 0 Active Albuterol Sulfate HFA 108 (90 Base) MCG/ACT Inhalation Aerosol SolutionIndications :COPD, moderate (HCC) Inhale 2 Puffs by mouth every 4 hours as needed for Cough, Shortness of Breath or Wheezing. 18 g 5 01/01/2023 Active Montelukast Sodium 10 MG Oral Tablet (Singulair)Indicati ons:Moderate chronic obstructive pulmonary disease (HCC) TAKE ONE TABLET BY MOUTH EVERY DAY 90 Tablet 3 01/25/2023 Active Pantoprazole Sodium 40 MG Oral Tablet Delayed Release (Protonix) TAKE ONE TABLET EVERY DAY 90 Tablet 3 01/25/2023 Active Meclizine HCl 12.5 MG Oral Tablet (Antivert)Indicatio ns:Vertigo Take 1 Tablet by mouth 3 times a day as needed for Dizziness. 30 Tablet 0 03/16/2023 Active Ipratropium-Albuter ol 0.5-2.5 (3) MG/3ML Inhalation Solution (Duoneb)Indications :COPD, group D, by GOLD 2017 classification ([facility]) Inhale 3 mL via nebulizer every [...] 06/08/2023 Active Furosemide 40 MG Oral Tablet (Lasix)Indications: Chronic diastolic congestive heart failure (HCC) One tablet daily with an extra tablet as needed for swelling 120 Tablet 3 06/11/2023 Active Ramelteon 8 MG Oral Tablet (Rozerem)Indication [...] 07/09/2023 Active Gabapentin 300 MG Oral Capsule (Neurontin)Indicati [...] for Cough. 30 Capsule 0 08/09/2023 Active Benzonatate 100 MG Oral Capsule Take 1 Capsule by mouth 3 times a day as needed for Cough. 30 Capsule 1 06/07/2023 3 Discontinu ed(Refill) documented as of this encounter (statuses as [...] mRNA, LNP-s, No Pre serve, 2-Dose Series (Able Planet) 07/11/2021,11/14/2020,10/24/2020 Covid-19, Mrna, Lnp-s, Pf, B ivalent, 30 Mcg, IM, 12 yrs and above ([employer]) 07/21/2022 Pneumococcal Conjugate Vacc, 13 Valent (Prevnar) 03/16/2015 Pneumococcal Conjugate Vacci ne, 20-valent ([id number]) 07/21/2022 Pneumococcal Polysaccharide PPV23 (Pneumovax) 03/05/2019,07/18/2007 SEASONAL INFLUENZA, PF, 6 M & Above, IM , (FLULAVAL or FLUZONE) 06/28/2018,07/28/2017 Season Influenza, Quad, PF, Adjuvanted, 65+ Yrs, IM (FLUAD) 06/16/2020 Seasonal Influenza, Quadriva lent Hd (Fluzone Hd) 06/07/2023,06/16/2022,06/08/2021 Seasonal Influenza, Quadriva lent, No Preserve, IM 06/27/2016,08/17/2015 Seasonal Influenza, Split, I IV3, With Preserve, Inj 09/18/2014,07/22/2014,07/01/2013,06/01,07/18/2011,07/12/2010,08/13/20 09,07/09/2008,07/18/2007,07/12/2006,1 11/29/2003,09/16/2001 09/16/2002 Seasonal Influenza, Trivalen t, Adjuvanted, 65+ yrs [...] as of this encounter Miscellaneous Notes * Addendum Note - Arabella Wilson CRNP - 08/09/2023 12:06 PM ESTAddended by: ARABELLA WILSON on: 08/09/2023 12:06 PM Modules accepted: Orders * Telephone Encounter - Arabella Wilson CRNP - 08/09/2023 12:06 PM EST Rx sent * Telephone Encounter - Lexy Tucker RN - 08/03/2023 8:46 AM EDT [facility] Telephonic Nurse Follow-Up Call [facility] Subprogram: Focused Care Management (3-9 months) Follow Up Call Type: Routine follow up call / Status Check Acute issue requiring follow-up call: Other: Productive cough, fever, laryngitis x 1 week Objective: 07/23/2023 9:11 AM 07/16/2023 1:32 PM 07/03/2023 2:34 PM 06/21/2023 2:32 PM 06/20/2023 8:49 AM VITALS ACROSS ENCOUNTERS BP 128/78 130/52 147/62 118/62 199/80 Pulse 80 70 60 76 Weight 70.8 kg 70.8 kg 71 kg 70.8 kg 70 kg BMI 26.76 26.76 26.76 BMI 26.78 kg/m2 26.78 kg/m2 26.88 kg/m2 26.78 kg/m2 26.5 kg/m2 Lab Results Component Value Date PROTEIN - [facility] 6.0 07/03/2023 PROTEIN - [facility] 6.0 07/03/2023 WBC AUTO - [facility] 5.74 07/20/2023 Lab Results Component Value Date WBC AUTO - [facility] 5.74 07/20/2023 HGB - [facility] 8.2 (L) 07/20/2023 PLATELET AUTO - [facility] 393 07/20/2023 Lab Results Component Value Date SODIUM - [facility] 139 07/03/2023 POTASSIUM - [facility] 4.2 07/03/2023 CO2 - [facility] 26 07/03/2023 CREATININE - [facility] 0.9 07/03/2023 ESTIMATED GLOMERULAR FILTRATION RATE - [facility] 64 07/03/2023 ALBUMIN - [facility] 3.9 07/03/2023 AST - [facility] 20 07/03/2023 ALT - [facility] 15 07/03/2023 ALKALINE PHOSPHATASE - [facility] 66 07/03/2023 Lab Results Component Value Date LEFT VENTRICULAR EJECTION FRACTION 61 07/12/2023 Remote Patient Monitoring: NONE Oxygen Needs: NO supplemental oxygen needs identified DME Needs: NO DME needs identified Medications: No medication or dose adjustments made during acute episode Subjective: Condition Status: Symptoms resolved and back to baseline Current Concerns: NO issues or concerns. Doing ok, occasional cough Sent message to care team provider for refill order of Tessalon Perles to be sent to [facility] Disposition: Issue resolved. All appropriate follow up scheduled. Future Visits Scheduled: Future Appointments-next 60 days Date/Time Provider Specialty Dept Phone 08/03/2023 1:00 PM Josephine Abdi Field [facility] [phone] 08/06/2023 12:00 PM Josephine Viera Nurse Triage [facility] [phone] 09/17/2023 9:40 AM (Arrive by 9:25 AM) Marycruz Almazan PA-C Dermatology [phone] 10/03/2023 10:30 AM (Arrive by 10:15 AM) Sosa Freeman CRNP Sleep Disorders [phone] 10/16/2023 11:30 AM (Arrive by 11:15 AM) Lizzette Silva CRNP Gastroenterology [phone] 12/10/2023 9:20 AM (Arrive by 9:05 AM) Rhys Humphrey MD Family Medicine [phone] 12/27/2023 11:00 AM (Arrive by 10:45 AM) Mi Neil PA-C Cardiology [phone] 03/18/2024 9:00 AM [place] Nurse Annual Wellness Ancillary [phone] Lexy Tucker, RN documented in this encounter Plan of Treatment Upcoming Encounters Date Type Department Care Team (Latest Contact Info) Description 08/10/2023 12:40 PM EST Hospital Encounter OR [facility], Operating Room, [facility] - 4th Floor [address] [place] [address] Sujrit Fernandez MD [address] [place] [facility] [place] [address] 08/10/2023 12:40 PM EST - 08/10/2023 1:59 PM EST Surgery OR [facility], Operating Room, [facility] - 4th Floor [address] [facility] [place] [address] Surjit Fernandez MD [address] [place] [facility] [place] [address] BRONCHOSCOPY, RIGID/FLEXIBLE, INCLUDE FLUORO GUIDANCE, WHEN PERFORMED; W/ EBUS GUIDED TRANSTRACH AND/OR TRANSBRONCH SAMPLING, 1 OR 2 MEDIASTINAL AND/OR HILAR LYMPH NODE STATIONS/STRUCTURES 08/11/2023 12:00 PM EST Scheduled Telephone [facility] [place], [address] [place] [address] [facility], [place] [address] [place] [address] 08/15/2023 10:30 AM EST Scheduled Telephone [facility] [place], [facility] [address] [facility] [place] [address] [facility] Nurse Triage [address] [facility] [place] [address] 08/30/2023 11:15 AM EST Office Visit Hematology/Oncology [facility] [place] [address] [place] [address] Martínez Lopes MD [address] [place] [address] 09/17/2023 9:40 AM EST Office Visit Dermatology [address] [place] [address] Marycruz Almazan PA-C [address] [place] [address] [place] [address] 10/03/2023 10:30 AM EST Office Visit Sleep Disorders [facility] [address] [place] [phone] Sosa Freeman CRNP [address] [place] [address] 10/16/2023 11:30 AM EST Office Visit Gastroenterology, [facility] [address] [place] [address] Lizzette Silva CRNP [address] [place] [address] 12/10/2023 9:20 AM EDT Office Visit Family Medicine [address] [place] [phone] Rhys Humphrey MD [address] [place] [address] [place] [address] 12/27/2023 11:00 AM EDT Office Visit Cardiology [address] [place] [address] Mi Neil PA-C [address] [place] [address] 03/18/2024 9:00 AM EDT Nurse Only Ancillary [address] [place] [address] Jan[place], Nurse [address] [place] [address] Scheduled Procedures Name Priority Associated Diagnoses Date/Ti [...] D LEVEL ONCE IN A LIFETIME-USE SMARTSET# 40311 Completed 06/29/2020, 03/16/2015 Pneumococcal Vaccine: 65+ Years [...] Documents on File Type Date Recorded Patient Plain Clothes Police Officer Expl anation POLST 10/15/2019 3:17 PM POLST POLST 03/05/2019 POLST FORM Advance Directives and Living Will 01/27/2013 LIVING WILL Advance Directives and Living Will 01/27/2013 LIVING WILL Power of Manager Business Continuity 01/27/2013 POWER OF A TTORNEY Power of Manager Business Continuity 01/27/2013 POWER OF A TTORNEY Healthcare Agents on File Name Relationship Healthcare Agent Relationship Communication Cydney Benito Other - (no specific identity) Second Alternate Health Care Agent Anyi More Adult Child Health Care Roberth r of Manager Business Continuity Care Teams Musical Instrument Maker Relationship Specialty Start Date End Date Rhys Humphrey MD [address] [place] [address] [place] [address] PCP - General Family Medicine 06/09/21 documented as of this encounter
--- OUTSIDE RECORDS SUMMARY | 2023-08-14 23:19 | External Medical Summary | Summary of Care ---
Author Name Unknown Organization [facility] Address [address] [place] [address] Phone [phone] Care Team Providers Care Dairy Department Manager Name Role Phone Rhys Humphrey MD Primary Care Provide r Reason for Visit * Reason Onset Date Comments Appointment 08/06/2023 Encounter Details Date Type Department Care Team (Late st Contact Info) Description 08/06/2023 Telephone Hematology/Oncology Treatment, [place] [address] [place] [address] Martínez Lopes MD [address] [place] [address] Appointment Allergies Active Allergy Reactions Criticality Noted Date [...] Active Nebulizers (NEBULIZER COMPRESSOR) MISCIndications:COPD , moderate ([facility]) Inhale via nebulizer. Use as directed. 1 Each 1 11/17/2019 Active Iron 325 (65 Fe) MG Oral Tablet Take 1 Tablet by mouth daily. 0 Active Cranberry 500 MG Oral Capsule Take 1 Capsule by mouth in the morning and 1 Capsule before bedtime. 50 Cap 0 01/18/2021 Active Ibnyise-Tjfkiuxep-Lx nc 333-133-5 MG Oral Tablet Take 1 Tablet by mouth daily. 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:ROLLER D, moderate (HCC),COPD, group D, by GOLD 2017 classification ([facility]) Inhale by mouth 1 Puff in the morning. 30 Each 11 08/02/2022 Active Fluticasone Furoate 100 MCG/ACT Inhalation Aerosol Powder Breath Activated (ARNUITY ellipta) Inhale by mouth 1 Puff in the morning. In addition to anoro. 30 Each 11 08/02/2022 Active Aspirin 81 MG Oral Tablet [...] COPD, group D, by GOLD 2017 classification ([facility]) Inhale 3 mL via nebulizer every 6 [...] Tablet (Lasix)Indications:C hronic diastolic congestive heart failure ([facility]) One tablet daily with an extra tablet [...] the couch") Medication Regimen o Other: anoro, ana luisa, sunni, chandler Self-Management plan o [...] mRNA, LNP-s, No Pre serve, 2-Dose Series (MindBodyGreen) 07/11/2021,11/14/2020,10/24/2020 Covid-19, Mrna, Lnp-s, Pf, B ivalent, 30 Mcg, IM, 12 yrs and above ([employer]) 07/21/2022 Pneumococcal Conjugate Vacc, 13 Valent (Prevnar) 03/16/2015 Pneumococcal Conjugate Vacci ne, 20-valent ([id number]) 07/21/2022 Pneumococcal Polysaccharide PPV23 (Pneumovax) 03/05/2019,07/18/2007 SEASONAL [...] money to buy more. Never true 03/16/20 Within the past 12 months, t he [...] encounter Miscellaneous Notes * Telephone Encounter - Agatha Lowe RN - 08/06/2023 3:35 PM EST Patient is scheduled for bronchoscopy 08/10/23. Will need appt with Dr Lopes 1-2 weeks after this to review results. Thanks! documented in this encounter Plan of Treatment Upcoming Encounters Date Type Department Care Team (Latest Contact Info) Description 08/08/2023 9:15 AM EST Scheduled Telephone [facility] [place], [facility] [address] [facility] [place] [address] Coordinator, [facility] [address] [facility] [place] [address] 08/10/2023 12:33 PM EST Hospital Encounter OR [facility], Operating Room, [facility] - 4th Floor [facility] [place] [address] Surjit Fernandez MD [address] [facility] [place] [address] 08/10/2023 12:33 PM EST - 08/10/2023 1:52 PM EST Surgery OR [facility], Operating Room, [facility] - 4th Floor [address] [place] [address] Surjit Fernandez MD [address] [facility] [place] [address] BRONCHOSCOPY, RIGID/FLEXIBLE, INCLUDE FLUORO GUIDANCE, WHEN PERFORMED; W/ EBUS GUIDED TRANSTRACH AND/OR TRANSBRONCH SAMPLING, 1 OR 2 MEDIASTINAL AND/OR HILAR LYMPH NODE STATIONS/STRUCTURES 08/11/2023 12:00 PM EST Scheduled Telephone [facility], [facility] [address] [place] [address] [facility], Nurse [address] [place] [address] 08/15/2023 10:30 AM EST Scheduled Telephone [facility] [place], [facility] [address] [facility] [place] [address] [facility] Nurse Triage [address] [facility] [place] [address] 09/17/2023 9:40 AM EST Office Visit Dermatology [address] [place] [address] Marycruz Almazan PA-C [address] [place] [address] [place] [address] 10/03/2023 10:30 AM EST Office Visit Sleep Disorders [facility] [address] [place] [phone] Sosa Freeman CRNP [address] [place] [address] 10/16/2023 11:30 AM EST Office Visit Gastroenterology, [facility] [address] [place] [address] Lizzette Silva CRNP [address] [place] [address] 12/10/2023 9:20 AM EDT Office Visit Family Medicine [address] [place] [phone] Rhys Humphrey MD [address] [place] [address] [place] [address] 12/27/2023 11:00 AM EDT Office Visit Cardiology [address] [place] [address] Mi Neil PA-C [address] [place] [address] 03/18/2024 9:00 AM EDT Nurse Only Ancillary [address] [place] [address] Janinealley, Nurse [address] [place] [phone] Scheduled Procedures Name Priority Associated Diagnoses Date/Ti [...] D LEVEL ONCE IN A LIFETIME-USE SMARTSET# [id number] Completed 06/29/2020, 03/16/2015 Pneumococcal Vaccine: 65+ Years [...] Documents on File Type Date Recorded Patient Substation Superintendent Expl anation POLST 10/15/2019 3:17 PM POLST POLST 03/05/2019 POLST FORM Advance Directives and Living Will 01/27/2013 LIVING WILL Advance Directives and Living Will 01/27/2013 LIVING WILL Power of Bulb Filler 01/27/2013 POWER OF A TTORNEY Power of Bulb Filler 01/27/2013 POWER OF A TTORNEY Healthcare Agents on File Name Relationship Healthcare Agent Relationship Communication Cydney Benito Other - (no specific identity) Second Alternate Health Care Agent Anyi More Adult Child Health Care Roberth r of Bulb Filler Care Teams Dairy Department Manager Relationship Specialty Start Date End Date Rhys Humphrey MD [address] [place] [address] [place] [address] PCP - General Family Medicine 06/09/21 documented as of this encounter
--- OUTSIDE RECORDS SUMMARY | 2023-08-14 23:19 | External Medical Summary | Summary of Care ---
Author Name Unknown Organization [facility] Address [address] [place] [address] Phone [phone] Care Team Providers Care Automatic Quilling Machine Operator Name Role Phone Rhys Humphrey MD Primary Care Provide r Reason for Visit * Reason Onset Date Comments Appointment 08/06/2023 Encounter Details Date Type Department Care Team (Late st Contact Info) Description 08/06/2023 Telephone Hematology/Oncology Treatment, [place] [address] [place] [address] Martínez Lopes MD [address] [place] [address] Appointment Allergies Active Allergy Reactions Criticality Noted Date Comments Adhesive Tape Other (Please comment),Hives High 09/29/2008 Caused welts Dextromethorphan-Gu aifenesin Neuro complications (Please comment) Medium 12/23/2021 Feels lightheaded/"foggy" documented as of this encounter (statuses as of 08/07/2023) Medications Medication Sig Dispensed Refills Start Date [...] Active Nebulizers (NEBULIZER COMPRESSOR) MISCIndications:COPD , moderate ([facility]) Inhale via nebulizer. Use as directed. 1 Each 1 11/17/2019 Active Iron 325 (65 Fe) MG Oral Tablet Take 1 Tablet by mouth daily. 0 Active Cranberry 500 MG Oral Capsule Take 1 Capsule by mouth in the morning and 1 Capsule before bedtime. 50 Cap 0 01/18/2021 Active Ivnodcr-Kyifaqzfu-Zn nc 333-133-5 MG Oral Tablet Take 1 Tablet by mouth daily. 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),COPD, group D, by GOLD 2017 classification ([facility]) Inhale by mouth 1 Puff [...] COPD, group D, by GOLD 2017 classification ([facility]) Inhale 3 mL via nebulizer [...] Tablet (Lasix)Indications:C hronic diastolic congestive heart failure ([facility]) One tablet daily with an [...] as of this encounter (statuses as of 08/07/2023) Active Problems Problem Noted Date Diagnosed Date [...] as of this encounter (statuses as of 08/07/2023) Resolved Problems Problem Noted Date Diagnosed Date [...] as of this encounter (statuses as of 08/07/2023) Immunizations Name Administration Dates Next Due COVID-19 mRNA, LNP-s, No Pre serve, 2-Dose Series (5[employer] Finger) 07/11/2021,11/14/2020,10/24/2020 Covid-19, Mrna, Lnp-s, Pf, B ivalent, 30 Mcg, IM, 12 yrs and above (5[employer] Finger) 07/21/2022 Pneumococcal Conjugate Vacc, 13 Valent (Prevnar) 03/16/2015 Pneumococcal Conjugate Vacci ne, 20-valent ([id number]) 07/21/2022 Pneumococcal Polysaccharide PPV23 (Pneumovax) 03/05/2019,07/18/2007 SEASONAL [...] Miscellaneous Notes * Telephone Encounter - Amy Crawford OSA - 08/07/2023 8:24 AM EST Called and spoke to patient and she is aware of appt with on 08/30. * Telephone Encounter - Agatha Lowe RN - 08/06/2023 3:35 PM EST Patient is scheduled for bronchoscopy 08/10/23. Will need appt with Dr Lopes 1-2 weeks after this to review results. Thanks! documented in this encounter Plan of Treatment Upcoming Encounters Date Type Department Care Team (Latest Contact Info) Description 08/08/2023 9:15 AM EST Scheduled Telephone [facility] [address] [facility] [place] [address] Coordinator, [facility] [address] [facility] [place] [address] 08/10/2023 12:33 PM EST Hospital Encounter OR [facility], Operating Room, [facility] - 4th Floor [address] [place] [address] Surjit Fernandez MD [address] [place] [address] 08/10/2023 12:33 PM EST - 08/10/2023 1:52 PM EST Surgery OR [facility], Operating Room, [facility] - 4th Floor [address] [place] [address] Surjit Fernandez MD [address] [place] [address] BRONCHOSCOPY, RIGID/FLEXIBLE, INCLUDE FLUORO GUIDANCE, WHEN PERFORMED; W/ EBUS GUIDED TRANSTRACH AND/OR TRANSBRONCH SAMPLING, 1 OR 2 MEDIASTINAL AND/OR HILAR LYMPH NODE STATIONS/STRUCTURES 08/11/2023 12:00 PM EST Scheduled Telephone [facility] [address] [facility] [place] [address] [place], Nurse [facility] [address] [place] [address] 08/15/2023 10:30 AM EST Scheduled Telephone [facility], [facility] [address] [place] [address] [facility] Nurse Triage [address] [place] [address] 08/30/2023 11:15 AM EST Office Visit Hematology/Oncology [facility] [address] [place] [address] Martínez Lopes MD [address] [place] [address] 09/17/2023 9:40 AM EST Office Visit Dermatology [address] [place] [address] Marycruz Almazan PA-C [address] [place] [address] [place] [address] 10/03/2023 10:30 AM EST Office Visit Sleep Disorders [facility] [address] [facility] [place] [phone] Sosa Freeman CRNP 132 [facility] [place] [address] 10/16/2023 11:30 AM EST Office Visit Gastroenterology, [facility] [address] [facility] [place] [address] Lizzette Silva CRNP [address] [place] [address] 12/10/2023 9:20 AM EDT Office Visit Family Medicine [address] [place] [phone] Rhys Humphrey MD [address] [place] [address] [place] [address] 12/27/2023 11:00 AM EDT Office Visit Cardiology [address] [place] [address] Mi Neil, PA-Hector [address] [place] [address] 03/18/2024 9:00 AM EDT Nurse Only Ancillary [address] [place] [address] [place], Nurse [address] [place] [address] Scheduled Procedures Name Priority Associated Diagnoses Date/Ti [...] D LEVEL ONCE IN A LIFETIME-USE SMARTSET# [id number] Completed 06/29/2020, 03/16/2015 Pneumococcal Vaccine: 65+ Years [...] Documents on File Type Date Recorded Patient Education Instructor Expl anation POLST 10/15/2019 3:17 PM POLST POLST 03/05/2019 POLST FORM Advance Directives and Living Will 01/27/2013 LIVING WILL Advance Directives and Living Will 01/27/2013 LIVING WILL Power of Manager Workers Compensation 01/27/2013 POWER OF A TTORNEY Power of Manager Workers Compensation 01/27/2013 POWER OF A TTORNEY Healthcare Agents on File Name Relationship Healthcare Agent Relationship Communication Cydney Benito Other - (no specific identity) Second Alternate Health Care Agent Anyi More Adult Child Health Care Roberth r of Manager Workers Compensation Care Teams Automatic Quilling Machine Operator Relationship Specialty Start Date End Date Rhys Humphrey MD [address] [place] [address] [place] [phone] PCP - General Family Medicine 06/09/21 documented as of this encounter
--- OUTSIDE RECORDS SUMMARY | 2023-08-14 23:19 | External Medical Summary | Summary of Care ---
Author Name Unknown Organization [facility] Address [address] [place] [address] Phone [phone] Care Team Providers Care E Commerce Project Manager Name Role Phone Rhys Humphrey MD Primary Care Provide r Reason for Visit * Reason Comments eRx-Medication Refill Encounter Details Date Type Department Care Team (Late st Contact Info) Description 08/07/2023 Refill Family Medicine [address] [phone] Rhys Humphrey MD [address] [place] [address] [place] [address] Allergies Active Allergy Reactions Criticality Noted Date [...] Each 0 0 Active Nebulizers (NEBULIZER COMPRESSOR) MISCIndications: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 Use as directed. 1 Each 1 0 Active Iron 325 (65 Fe) MG Oral Tablet Take 1 Tablet by mouth daily. 0 Active Cranberry 500 MG Oral Capsule Take 1 Capsule by mouth in the morning and 1 Capsule before bedtime. 50 Cap 0 1 Active Drvsllz-Ujbphglme-Z inc 333-133-5 MG Oral Tablet Take 1 Tablet by mouth daily. 0 Active Anoro Ellipta 62.5-25 MCG/INH Inhalation Aerosol Powder Breath Activated (umeclidinium-vilan terol)Indications:C OPD, moderate (HCC),COPD, group D, by GOLD 2017 classification ([facility]) Inhale by mouth 1 Puff in the morning. 30 Each 11 2 Active Fluticasone Furoate 100 MCG/ACT Inhalation Aerosol Powder Breath Activated (ARNUITY ellipta) Inhale by mouth 1 Puff in the morning. In addition to anoro. 30 Each 11 2 Active Aspirin 81 MG Oral Tablet [...] :COPD, group D, by GOLD 2017 classification ([facility]) Inhale 3 mL via nebulizer every 6 [...] Tablet (Lasix)Indications: Chronic diastolic congestive heart failure ([facility]) One tablet daily with an extra tablet [...] as needed for Heartburn. 180 Tablet 1 10/06/202 3 Active Losartan Potassium 50 MG Oral [...] 3 Active Benzonatate 100 MG Oral Capsule (Tessalon Perles) TAKE ONE CAPSULE BY MOUTH THREE TIMES DAILY NEEDED FOR cough 30 Capsule 1 3 Active Benzonatate 100 MG Oral [...] mRNA, LNP-s, No Pre serve, 2-Dose Series (UMicIt) 07/11/2021,11/14/2020,10/24/2020 Covid-19, Mrna, Lnp-s, Pf, B ivalent, 30 Mcg, IM, 12 yrs and above (UMicIt) 07/21/2022 Pneumococcal Conjugate Vacc, 13 Valent (Prevnar) 03/16/2015 Pneumococcal Conjugate Vacci ne, 20-valent ([id number]) 07/21/2022 Pneumococcal Polysaccharide PPV23 (Pneumovax) 03/05/2019,07/18/2007 SEASONAL [...] encounter Miscellaneous Notes * Telephone Encounter - Gaby Mckenzie MD - 08/07/2023 2:56 PM ESTSigned Prescriptions: Disp Refills Benzonatate 100 MG Oral Capsule (Tessalon *30 Cap*1 Sig: TAKE ONE CAPSULE BY MOUTH THREE TIMES DAILY NEEDED FOR cough Authorizing Provider: GABY MCKENZIE * Telephone Encounter - Edwige Mulligan RN - 08/07/2023 2:43 PM ESTPending Prescriptions: Disp Refills Benzonatate 100 MG Oral Capsule [Pharmacy *30 Cap*1 Sig: TAKE ONE CAPSULE BY MOUTH THREE TIMES DAILY NEEDED FOR cough * Telephone Encounter - Yimi Kessler - 08/07/2023 12:24 PM ESTPending Prescriptions: Disp Refills Benzonatate 100 MG Oral Capsule [Pharmacy *30 Cap*1 Sig: TAKE ONE CAPSULE BY MOUTH THREE TIMES DAILY NEEDED FOR cough documented in this encounter Plan of Treatment Upcoming Encounters Date Type Department Care Team (Latest Contact Info) Description 08/08/2023 9:15 AM EST Scheduled Telephone Judith at [address] [place] [address] Coordinator, [facility] [address] [place] [address] 08/10/2023 12:33 PM EST Hospital Encounter OR [facility], Operating Room, [facility] - 4th Floor [address] [facility] [place] [address] [facility] Fern[facility] [address] [facility] [address] 08/10/2023 12:33 PM EST - 08/10/2023 1:52 PM EST Surgery OR [facility], Operating Room, [facility] - 4th Floor [address] [facility] [place], [place] [address] Surjit Fernandez MD [address] [place] [address] BRONCHOSCOPY, RIGID/FLEXIBLE, INCLUDE FLUORO GUIDANCE, WHEN PERFORMED; W/ EBUS GUIDED TRANSTRACH AND/OR TRANSBRONCH SAMPLING, 1 OR 2 MEDIASTINAL AND/OR HILAR LYMPH NODE STATIONS/STRUCTURES 08/11/2023 12:00 PM EST Scheduled Telephone [facility], [facility] [address] [place] [address] [facility], Nurse [address] [place] [address] 08/15/2023 10:30 AM EST Scheduled Telephone [facility] [place], [facility] [address] [place] [address] [facility] Nurse Triage [address] [place] [address] 08/30/2023 11:15 AM EST Office Visit Hematology/Oncology [place] [address] [place] [address] Martínez Lopes MD [address] [place] [address] 09/17/2023 9:40 AM EST Office Visit Dermatology [address] [place] [address] Marycruz Almazan PA-C [address] [place] [address] [place] [address] 10/03/2023 10:30 AM EST Office Visit Sleep Disorders Ctr [facility] [address] [place] [phone] Sosa Freeman CRNP [address] [place] [address] 10/16/2023 11:30 AM EST Office Visit Gastroenterology, [facility] [address] [place] [address] Lizzette Silva CRNP [address] [place] [address] 12/10/2023 9:20 AM EDT Office Visit Family Medicine [address] [place] [phone] Rhys Humphrey MD [address] [place] [address] [place] [address] 12/27/2023 11:00 AM EDT Office Visit Cardiology [address] [place] [address] Mi Neil PA-C [address] [place] [address] 03/18/2024 9:00 AM EDT Nurse Only Ancillary [address] [place] [address] [place], Nurse Annual [address] [place] [address] Scheduled Procedures Name Priority Associated Diagnoses Date/Ti [...] D LEVEL ONCE IN A LIFETIME-USE SMARTSET# 17075 Completed 06/29/2020, 03/16/2015 Pneumococcal Vaccine: 65+ Years [...] Documents on File Type Date Recorded Patient Assisted Living Director Expl anation POLST 10/15/2019 3:17 PM POLST POLST 03/05/2019 POLST FORM Advance Directives and Living Will 01/27/2013 LIVING WILL Advance Directives and Living Will 01/27/2013 LIVING WILL Power of Scale Manager 01/27/2013 POWER OF A TTORNEY Power of Scale Manager 01/27/2013 POWER OF A TTORNEY Healthcare Agents on File Name Relationship Healthcare Agent Relationship Communication Cydney Benito Other - (no specific identity) Second Alternate Health Care Agent Anyi More Adult Child Health Care Roberth r of Scale Manager Care Teams E Commerce Project Manager Relationship Specialty Start Date End Date Rhys Humphrey MD [address] [place] [address] [place] [address] PCP - General Family Medicine 06/09/21 documented as of this encounter
--- OUTSIDE RECORDS SUMMARY | 2023-08-14 23:19 | External Medical Summary | Summary of Care ---
Author Name Unknown Organization [facility] Address [address] [place] [address] Phone [phone] Care Team Providers Care Manager Cosmetics Name Role Phone Rhys Humphrey MD Primary Care Provide r Reason for Visit * Reason Onset Date Comments [facility]: Maintenance 08/03/2023 Encounter Details Date Type Department Care Team (Late st Contact Info) Description 08/03/2023 Telephone [facility], [facility] [address] [place] [address] [facility], Nurse [address] [place] [address] [facility]: Maintenance Allergies Active Allergy [...] Each 0 11/11/2019 Active Nebulizers (NEBULIZER COMPRESSOR) MISCIndications:BANQUET CAPTAIN D, 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 Use as directed. 1 Each 1 11/17/2019 Active Iron 325 (65 Fe) MG Oral Tablet Take 1 Tablet by mouth daily. 0 Active Cranberry 500 MG Oral Capsule Take 1 Capsule by mouth in the morning and 1 Capsule before bedtime. 50 Cap 0 01/18/2021 Active Qkescds-Vsaokynbh-L inc 333-133-5 MG Oral Tablet Take 1 Tablet by mouth daily. 0 Active Anoro Ellipta 62.5-25 MCG/INH Inhalation Aerosol Powder Breath Activated (umeclidinium-vilan terol)Indications:C OPD, moderate (HCC),COPD, group D, by GOLD 2017 classification ([facility]) Inhale by mouth 1 Puff [...] :COPD, group D, by GOLD 2017 classification ([facility]) Inhale 3 mL via nebulizer [...] for Cough. 30 Capsule 1 08/03/2023 Active Benzonatate 100 MG Oral Capsule Take [...] mRNA, LNP-s, No Pre serve, 2-Dose Series (FlixChip) 07/11/2021,11/14/2020,10/24/2020 Covid-19, Mrna, Lnp-s, Pf, B ivalent, 30 Mcg, IM, 12 yrs and above (FlixChip) 07/21/2022 Pneumococcal Conjugate Vacc, 13 Valent (Prevnar) 03/16/2015 Pneumococcal Conjugate Vacci ne, 20-valent ([id number]) 07/21/2022 Pneumococcal Polysaccharide PPV23 (Pneumovax) 03/05/2019,07/18/2007 SEASONAL [...] encounter Miscellaneous Notes * Addendum Note - Isaac Parker PA-C - 08/03/2023 6:09 PM EDTAddended by: ISAAC PARKER on: 08/03/2023 06:09 PM Modules accepted: Orders * Telephone Encounter - Amrita Alcantar RN - 08/03/2023 3:46 PM EDT Pt is calling [facility] to ask if she should cancel her p[rocedure next week because she has hoarseness. She also reports that she never received a script for Tessalon Pearles. Tessalon was not ordered. Re routing to provider to order same if appropriate. Denies sore throat but sounds congested and hoarse. She was not coughing during the phone call. She had an acute call on 07/30/23. Tessalon mentioned but not ordered. Please advise/. Amrita Alcantar RN [facility] Intake Triage Coordinator [phone] NOTE: They were not sent because the patient had a refill on the prior prescription .Isaac Parker PA-C New prescriptions sent Isaac Parker PA-C documented in this encounter Plan of Treatment Upcoming Encounters Date Type Department Care Team (Latest Contact Info) Description 08/06/2023 12:00 PM EST Scheduled Telephone isinger at [facility] [address] [facility] [place] [address] [facility] Nurse Triage [address] [facility] [place] [address] 08/10/2023 12:33 PM EST Hospital Encounter OR [facility], Operating Room, [facility] - 4th Floor [address] [facility] [place] [id number] Surjit Fernandez MD [address] [facility] [place] [address] 08/10/2023 12:33 PM EST - 08/10/2023 1:52 PM EST Surgery OR [facility], Operating Room, [facility] - 4th Floor [address] [place] [address] Surjit Fernandez MD [address] [facility] [place] [address] BRONCHOSCOPY, RIGID/FLEXIBLE, INCLUDE FLUORO GUIDANCE, WHEN PERFORMED; W/ EBUS GUIDED TRANSTRACH AND/OR TRANSBRONCH SAMPLING, 1 OR 2 MEDIASTINAL AND/OR HILAR LYMPH NODE STATIONS/STRUCTURES 09/17/2023 9:40 AM EST Office Visit Dermatology [address] [place] [address] Marycruz Almazan PA-C [address] [place] [address] [place] [address] 10/03/2023 10:30 AM EST Office Visit Sleep Disorders Ctr [facility] 132 [facility] [place] [phone] Sosa Freeman CRNP 132 [facility] [place] [address] 10/16/2023 11:30 AM EST Office Visit Gastroenterology, [facility] [address] [facility] [place] [address] Lizzette Silva CRNP [address] [place] [address] 12/10/2023 9:20 AM EDT Office Visit Family Medicine [address] [place] [address] Rhys Humphrey MD [address] [place] [address] [place] [address] 12/27/2023 11:00 AM EDT Office Visit Cardiology [address] [place] [address] Mi Neil PA-C [address] [place] [address] 03/18/2024 9:00 AM EDT Nurse Only Ancillary [address] [place] [address] [place], Nurse Annual [address] [place] [address] Scheduled Procedures Name Priority Associated Diagnoses Date/Ti co BRONCHOSCOPY, RIGID/FLEXIBLE , INCLUDE FLUORO GUIDANCE, WHEN [...] D LEVEL ONCE IN A LIFETIME-USE SMARTSET# 49902 Completed 06/29/2020, 03/16/2015 Pneumococcal Vaccine: 65+ Years [...] Documents on File Type Date Recorded Patient Factory Machine Computer Operator Expl anation POLST 10/15/2019 3:17 PM POLST POLST 03/05/2019 POLST FORM Advance Directives and Living Will 01/27/2013 LIVING WILL Advance Directives and Living Will 01/27/2013 LIVING WILL Power of Manager Books 01/27/2013 POWER OF A TTORNEY Power of Manager Books 01/27/2013 POWER OF A TTORNEY Healthcare Agents on File Name Relationship Healthcare Agent Relationship Communication Cydney Benito Other - (no specific identity) Second Alternate Health Care Agent Anyi More Adult Child Health Care Roberth r of Manager Books Care Teams Manager Cosmetics Relationship Specialty Start Date End Date Rhys Humhprey MD [address] [place] [address] [place] [address] PCP - General Family Medicine 06/09/21 documented as of this encounter
--- OUTSIDE RECORDS SUMMARY | 2023-08-14 23:19 | External Medical Summary | Summary of Care ---
Author Name Unknown Organization [facility] Address [address] [place] [address] Phone [phone] Care Team Providers Care Sterile Process Tech Name Role Phone Rhys Humphrey MD Primary Care Provide r Reason for Visit * Reason Onset Date Comments [facility]: Maintenance 08/03/2023 Encounter Details Date Type Department Care Team (Late st Contact Info) Description 08/03/2023 Telephone [facility], [facility] [address] [place] [address] [facility], Nurse [address] [place] [address] [facility]: Maintenance Allergies Active Allergy [...] Each 0 11/11/2019 Active Nebulizers (NEBULIZER COMPRESSOR) 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 Use as directed. 1 Each 1 11/17/2019 Active Iron 325 (65 Fe) MG Oral Tablet Take 1 Tablet by mouth daily. 0 Active Cranberry 500 MG Oral Capsule Take 1 Capsule by mouth in the morning and 1 Capsule before bedtime. 50 Cap 0 01/18/2021 Active Crrdowp-Tpssasudi-M inc 333-133-5 MG Oral Tablet Take 1 Tablet by mouth daily. 0 Active Anoro Ellipta 62.5-25 MCG/INH Inhalation Aerosol Powder Breath Activated (umeclidinium-vilan terol)Indications:C OPD, moderate (HCC),COPD, group D, by GOLD 2017 classification ([facility]) Inhale by mouth 1 Puff in [...] :COPD, group D, by GOLD 2017 classification ([facility]) Inhale 3 mL via nebulizer every [...] mRNA, LNP-s, No Pre serve, 2-Dose Series ([employer]) 07/11/2021,11/14/2020,10/24/2020 Covid-19, Mrna, Lnp-s, Pf, B ivalent, 30 Mcg, IM, 12 yrs and above ([employer]) 07/21/2022 Pneumococcal Conjugate Vacc, 13 Valent (Prevnar) 03/16/2015 Pneumococcal Conjugate Vacci ne, 20-valent ([id number]) 07/21/2022 Pneumococcal Polysaccharide PPV23 (Pneumovax) 03/05/2019,07/18/2007 SEASONAL [...] encounter Miscellaneous Notes * Telephone Encounter - Denise Pittman LPN - 08/06/2023 1:39 PM EST Call to patient to follow up she did get the medication for the cough. Spoke to patient and she is doing better, denies cough but still hoarse at times If she keeps her place cool the hoarseness is at a minium Denies SOB Or chest pain Denies any bleeding today Encouraged to call with any urgent issues Call placed for later this week to follow up * Addendum Note - Isaac Parker PA-C - 08/03/2023 6:09 PM EDTAddended by: ISAAC PARKER on: 08/03/2023 06:09 PM Modules accepted: Orders * Telephone Encounter - Amrita Alcantar RN - 08/03/2023 3:46 PM EDT Pt is calling [facility] to ask if she should cancel her [...] not ordered. Please advise/. Amrita Alcantar RN [facility] Intake Triage Coordinator [phone] NOTE: They were not sent because the patient had a refill on the prior prescription .Isaac Parker PA-C New prescriptions sent Isaac Parker PA-C documented in this encounter Plan of Treatment Upcoming Encounters Date Type Department Care Team (Latest Contact Info) Description 08/10/2023 12:33 PM EST Hospital Encounter OR [facility], Operating Room, [facility] - 4th Floor [address] [place] [address] Surjit Fernandez MD [address] [place] [address] 08/10/2023 12:33 PM EST - 08/10/2023 1:52 PM EST Surgery OR [facility], Operating Room, [facility] - 4th Floor [address] [place] [address] Surjit Fernandez MD [address] [place] [address] BRONCHOSCOPY, RIGID/FLEXIBLE, INCLUDE FLUORO GUIDANCE, WHEN PERFORMED; W/ EBUS GUIDED TRANSTRACH AND/OR TRANSBRONCH SAMPLING, 1 OR 2 MEDIASTINAL AND/OR HILAR LYMPH NODE STATIONS/STRUCTURES 09/17/2023 9:40 AM EST Office Visit Dermatology [address] [place] [address] Marycruz Almazan PA-C [address] [place] [address] [place] [address] 10/03/2023 10:30 AM EST Office Visit Sleep Disorders [facility] [address] [place] [phone] [facility]osa [facility] [place] [address] 10/16/2023 11:30 AM EST Office Visit Gastroenterology, [facility] [address] [place] [address] Lizzette Silva CRNP [address] [place] [address] 12/10/2023 9:20 AM EDT Office Visit Family Medicine [address] [place] [phone] Rhys Humphrey MD [address] [place] [address] [place] [address] 12/27/2023 11:00 AM EDT Office Visit Cardiology [address] [place] [address] Mi Neil, PA-Hector [address] [place] [address] 03/18/2024 9:00 AM EDT Nurse Only Ancillary [address] [place] [address] [place], Nurse Annual [address] [place] [address] Scheduled Procedures Name Priority Associated Diagnoses Date/Ti [...] D LEVEL ONCE IN A LIFETIME-USE SMARTSET# 11922 Completed 06/29/2020, 03/16/2015 Pneumococcal Vaccine: 65+ Years [...] Documents on File Type Date Recorded Patient Director Oracle Database Expl anation POLST 10/15/2019 3:17 PM POLST POLST 03/05/2019 POLST FORM Advance Directives and Living Will 01/27/2013 LIVING WILL Advance Directives and Living Will 01/27/2013 LIVING WILL Power of Vp Strategic Partnerships 01/27/2013 POWER OF A TTORNEY Power of Vp Strategic Partnerships 01/27/2013 POWER OF A TTORNEY Healthcare Agents on File Name Relationship Healthcare Agent Relationship Communication Cydney Benito Other - (no specific identity) Second Alternate Health Care Agent Anyi More Adult Child Health Care Roberth r of Vp Strategic Partnerships Care Teams Sterile Process Tech Relationship Specialty Start Date End Date Rhys Humphrey MD [address] [place] [address] [place] [id number] PCP - General Family Medicine 06/09/21 documented as of this encounter
--- OUTSIDE RECORDS SUMMARY | 2023-08-14 23:19 | External Medical Summary | Summary of Care ---
Author Name Unknown Organization [facility] Address [address] [place] [address] Phone [phone] Care Team Providers Care Truck Manager Name Role Phone Rhys Humphrey MD Primary Care Provide r Reason for Visit * Reason Onset Date Comments [facility]: Maintenance 08/08/2023 Encounter Details Date Type Department Care Team (Late st Contact Info) Description 08/08/2023 9:15 AM EST Scheduled Telephone [facility], [facility] [address] [place] [address] Coordinator, [facility] [address] [place] [address] Allergies Active Allergy Reactions Criticality Noted Date Comments Adhesive Tape Other (Please comment),Hives High 09/29/2008 Caused welts Dextromethorphan-Gu aifenesin Neuro complications (Please comment) Medium 12/23/2021 Feels lightheaded/"foggy" documented as of this encounter (statuses as of 08/08/2023) Medications Medication Sig Dispensed Refills Start Date [...] before bedtime. 50 Cap 0 01/18/2021 Active Entaoyu-Zbbwjfwrg-Qx nc 333-133-5 MG Oral Tablet Take 1 Tablet by mouth daily. 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),COPD, group D, by GOLD 2017 classification ([facility]) Inhale by mouth 1 Puff [...] COPD, group D, by GOLD 2017 classification ([facility]) Inhale 3 mL via nebulizer [...] Tablet (Lasix)Indications:C hronic diastolic congestive heart failure ([facility]) One tablet daily with an [...] as of this encounter (statuses as of 08/08/2023) Active Problems Problem Noted Date Diagnosed Date [...] as of this encounter (statuses as of 08/08/2023) Resolved Problems Problem Noted Date Diagnosed Date [...] as of this encounter (statuses as of 08/08/2023) Immunizations Name Administration Dates Next Due COVID-19 mRNA, LNP-s, No Pre serve, 2-Dose Series ([employer]) 07/11/2021,11/14/2020,10/24/2020 Covid-19, Mrna, Lnp-s, Pf, B ivalent, 30 Mcg, IM, 12 yrs and above ([employer] Program) 07/21/2022 Pneumococcal Conjugate Vacc, 13 Valent (Prevnar) 03/16/2015 Pneumococcal Conjugate Vacci ne, 20-valent ([id number]) 07/21/2022 Pneumococcal Polysaccharide PPV23 (Pneumovax) 03/05/2019,07/18/2007 SEASONAL [...] encounter Miscellaneous Notes * Telephone Encounter - Melissa Almaraz RN - 08/08/2023 8:23 AM EST [facility] Telephonic Nurse Follow-Up Call [facility] Subprogram: Focused Care Management (3-9 months) Follow Up Call Type: Routine follow up call / Status Check Acute issue requiring follow-up call: Other: cough/nose bleed Objective: 08/07/2023 9:17 AM 07/23/2023 9:11 AM 07/16/2023 1:32 PM 07/03/2023 2:34 PM 06/21/2023 2:32 PM VITALS ACROSS ENCOUNTERS BP 128/78 130/52 147/62 118/62 Pulse 80 70 60 Weight 70.8 kg 70.8 kg 70.8 kg 71 kg 70.8 kg BMI 26.76 26.76 26.76 26.76 BMI 26.78 kg/m2 26.78 kg/m2 26.78 kg/m2 26.88 kg/m2 26.78 kg/m2 Lab Results Component Value Date PROTEIN [...] Remote Patient Monitoring: NONE Oxygen Needs: NO CHANGE from baseline supplemental oxygen needs DME Needs: NO DME needs identified Medications: No medication or dose adjustments made during acute episode Subjective: Condition Status: Improvement in symptoms but not at baseline Current Concerns: Spoke with patient states she became very ill after getting the covid vaccine States she is doing better now Cough resolved and no recurrence of nose bleed Plavix currently on hold for OR on 08/10/23 Pt states she still has fever blisters that are healing Offers no other complaints Pt asking for nurse visit today. States she has pill packs and is supposed to pull out her plavix for the OR appt on Sunday and can not differentiate the medication Schedules reviewed TT to denise sutton who is in [place] this am Denise to stop by and see patient today to help Pt aware to hold medications until nurse arrives Pt aware to call [facility] with any additional concerns Pt last provider visit noted in March--if tf/u eitan med is desired please send to scheduling Disposition: Issue resolved. All appropriate follow up scheduled. Future Visits Scheduled: Future Appointments-next 60 days Date/Time Provider Specialty Dept Phone 08/08/2023 9:15 AM CoordinatorJosephine [facility] [phone] 08/11/2023 12:00 PM [facility] Maximiliano [facility] [phone] 08/15/2023 10:30 AM [facility] Nurse Escalona [facility] [phone] 08/30/2023 11:15 AM (Arrive by 11:00 AM) Martínez Lopes MD Hematology Oncology [phone] 09/17/2023 9:40 AM (Arrive by 9:25 AM) Marycruz Almazan PA-C Dermatology [phone] 10/03/2023 10:30 AM (Arrive by 10:15 AM) Sosa Freeman CRNP Sleep Disorders [phone] 10/16/2023 11:30 AM (Arrive by 11:15 AM) Lizzette Silva CRNP Gastroenterology [phone] 12/10/2023 9:20 AM (Arrive by 9:05 AM) Rhys Humphrey MD Family Medicine [phone] 12/27/2023 11:00 AM (Arrive by 10:45 AM) Mi Neil PA-C Cardiology [phone] 03/18/2024 9:00 AM Nurse [place] [facility] Ancillary [phone] Melissa Almaraz RN documented in this encounter Plan of Treatment Upcoming Encounters Date Type Department Care Team (Latest Contact Info) Description 08/10/2023 12:33 PM EST Hospital Encounter OR [facility], Operating Room, [facility] - 4th Floor [address] [place] [address] Surjit Fernandez MD [address] [place] [facility] [place] [address] 08/10/2023 12:33 PM EST - 08/10/2023 1:52 PM EST Surgery OR [facility], Operating Room, [facility] - 4th Floor [address] [place] [address] Surjit Fernandez MD [address] [place] [facility] [place] [address] BRONCHOSCOPY, RIGID/FLEXIBLE, INCLUDE FLUORO GUIDANCE, WHEN PERFORMED; W/ EBUS GUIDED TRANSTRACH AND/OR TRANSBRONCH SAMPLING, 1 OR 2 MEDIASTINAL AND/OR HILAR LYMPH NODE STATIONS/STRUCTURES 08/11/2023 12:00 PM EST Scheduled Telephone [facility], [address] [place] [address] [facility], Nurse [address] [place] [address] 08/15/2023 10:30 AM EST Scheduled Telephone [facility] [address] [facility] [place] [address] [facility] Nurse [address] [place] [address] 08/30/2023 11:15 AM EST Office Visit Hematology/Oncology [facility] [place] [address] [facility] [place] [address] Martínez Lopes MD [address] [facility] [place] [address] 09/17/2023 9:40 AM EST Office Visit Dermatology [address] [place] [address] Marycruz Almazan PA-C [address] [place] [address] [place] [address] 10/03/2023 10:30 AM EST Office Visit Sleep Disorders Ctr [facility] [address] [place] [phone] Sosa Freeman CRNP [address] [place] [address] 10/16/2023 11:30 AM EST Office Visit Gastroenterology, [facility] [address] [place] [address] Lizzette Silva CRNP [address] [place] [address] 12/10/2023 9:20 AM EDT Office Visit Family Medicine [address] [place] [phone] Rhys Humphrey MD [address] [place] [address] [place] [address] 12/27/2023 11:00 AM EDT Office Visit Cardiology [address] [place] [address] Mi Neil PA-C [address] [place] [address] 03/18/2024 9:00 AM EDT Nurse Only Ancillary [address] [place] [address] [place], Nurse [facility] [address] [place] [address] [place] [address] Scheduled Procedures Name Priority Associated Diagnoses Date/Ti [...] D LEVEL ONCE IN A LIFETIME-USE SMARTSET# [id number] Completed 06/29/2020, 03/16/2015 Pneumococcal Vaccine: 65+ Years [...] Documents on File Type Date Recorded Patient Multimedia Engineer Expl anation POLST 10/15/2019 3:17 PM POLST POLST 03/05/2019 POLST FORM Advance Directives and Living Will 01/27/2013 LIVING WILL Advance Directives and Living Will 01/27/2013 LIVING WILL Power of Denial Management Representative 01/27/2013 POWER OF A TTORNEY Power of Denial Management Representative 01/27/2013 POWER OF A TTORNEY Healthcare Agents on File Name Relationship Healthcare Agent Relationship Communication Cydney Benito Other - (no specific identity) Second Alternate Health Care Agent Anyi More Adult Child Health Care Roberth r of Denial Management Representative Care Teams Truck Manager Relationship Specialty Start Date End Date Rhys Humphrey MD [address] [place] [address] [place] [id number] PCP - General Family Medicine 06/09/21 documented as of this encounter
--- OUTSIDE RECORDS SUMMARY | 2023-08-14 23:20 | External Medical Summary | Summary of Care ---
Author Name Unknown Organization [facility] Address [address] [place] [address] Phone [phone] Care Team Providers Care Materials Branch Chief Name Role Phone Rhys Humphrey MD Primary Care Provide r Reason for Visit * Reason Onset Date Comments [facility]: Maintenance 08/03/2023 Encounter Details Date Type Department Care Team (Late st Contact Info) Description 08/03/2023 Telephone [facility], 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 Use as directed. 1 Each 1 11/17/2019 Active Iron 325 (65 Fe) MG Oral Tablet Take 1 Tablet by mouth daily. 0 Active Cranberry 500 MG Oral Capsule Take 1 Capsule by mouth in the morning and 1 Capsule before bedtime. 50 Cap 0 01/18/2021 Active Awalfer-Thkhecqsh-S inc 333-133-5 MG Oral Tablet Take 1 [...] :COPD, group D, by GOLD 2017 classification ([facility] [...] as of this encounter (statuses as of 08/03/2023) Active Problems Problem Noted Date Diagnosed Date [...] aortic valve stenosis 03/31/2011 Overview: Mod-severe per ANRDEA 01/31/11 Last Assessment & Plan: Stable Following [...] as of this encounter (statuses as of 08/03/2023) Resolved Problems Problem Noted Date Diagnosed Date [...] as of this encounter (statuses as of 08/03/2023) Immunizations Name Administration Dates Next Due COVID-19 mRNA, LNP-s, No Pre serve, 2-Dose Series ([employer]) 07/11/2021,11/14/2020,10/24/2020 Covid-19, Mrna, Lnp-s, Pf, B ivalent, 30 Mcg, IM, 12 yrs and above ([employer]) 07/21/2022 Pneumococcal Conjugate Vacc, 13 Valent (Prevnar) 03/16/2015 Pneumococcal Conjugate Vacci ne, 20-valent ([id number]) 07/21/2022 Pneumococcal Polysaccharide PPV23 (Pneumovax) 03/05/2019,07/18/2007 SEASONAL [...] 08/03/2023 3:46 PM EDT Pt is calling [facility] to ask if she should cancel [...] not ordered. Please advise/. Amrita Alcantar RN [facility] Intake Triage Coordinator [phone] NOTE: They were not sent because the patient had a refill on the prior prescription .Isaac Parker PA-C New prescriptions sent Isaac Parker PA-C documented in this encounter Plan of Treatment Upcoming Encounters Date Type Department Care Team (Latest Contact Info) Description 08/06/2023 12:00 PM EST Scheduled Telephone [facility] at [facility] [address] [facility] [place] [address] [facility] Nurse Triage [address] [facility] [place] [address] 08/10/2023 12:33 PM EST Hospital Encounter OR [facility], Operating Room, [facility] - 4th Floor [address] [facility] [place] [id number] Surjit Fernandez MD [address] [facility] [place] [address] 08/10/2023 12:33 PM EST - 08/10/2023 1:52 PM EST Surgery OR [facility], Operating Room, [facility] - 4th Floor [address] [place] [address] Surjit Fernandez MD [address] [facility] [place] [address] BRONCHOSCOPY, RIGID/FLEXIBLE, INCLUDE FLUORO GUIDANCE, WHEN PERFORMED; W/ EBUS GUIDED TRANSTRACH AND/OR TRANSBRONCH SAMPLING, 1 OR 2 MEDIASTINAL AND/OR HILAR LYMPH NODE STATIONS/STRUCTURES 09/17/2023 9:40 AM EST Office Visit Dermatology [address] [place] [address] Marycruz Almazan PA-C [address] [place] [address] [place] [address] 10/03/2023 10:30 AM EST Office Visit Sleep Disorders Ctr [facility] [address] [facility] [place] [phone] Sosa Freeman CRNP [address] [facility] [place] [address] 10/16/2023 11:30 AM EST Office Visit Gastroenterology, [facility] [address] [facility] [place] [address] Lizzette Silva CRNP [address] [place] [address] 12/10/2023 9:20 AM EDT Office Visit Family Medicine [address] [place] [phone] Rhys Humphrey MD [address] [place] [address] [place] [address] 12/27/2023 11:00 AM EDT Office Visit Cardiology [address] [place] [address] Mi Neil PA-C [address] [place] [address] 03/18/2024 9:00 AM EDT Nurse Only Ancillary [address] [place] [address] [place], Nurse Annual [address] [place] [address] Scheduled Procedures Name Priority Associated Diagnoses Date/Ti il BRONCHOSCOPY, RIGID/FLEXIBLE , INCLUDE FLUORO GUIDANCE, WHEN [...] D LEVEL ONCE IN A LIFETIME-USE SMARTSET# [id number] Completed 06/29/2020, 03/16/2015 Pneumococcal Vaccine: 65+ Years [...] Documents on File Type Date Recorded Patient Supervisor Publications Production Expl anation POLST 10/15/2019 3:17 PM POLST POLST 03/05/2019 POLST FORM Advance Directives and Living Will 01/27/2013 LIVING WILL Advance Directives and Living Will 01/27/2013 LIVING WILL Power of Air Crew Supervisor 01/27/2013 POWER OF A TTORNEY Power of Air Crew Supervisor 01/27/2013 POWER OF A TTORNEY Healthcare Agents on File Name Relationship Healthcare Agent Relationship Communication Cydney Benito Other - (no specific identity) Second Alternate Health Care Agent Anyi More Adult Child Health Care Roberth r of Air Crew Supervisor Care Teams Materials Branch Chief Relationship Specialty Start Date End Date Rhys Humphrey MD [address] [place] [address] [place] [address] PCP - General Family Medicine 06/09/21 documented as of this encounter
--- OUTSIDE RECORDS SUMMARY | 2023-08-14 23:20 | External Medical Summary | Summary of Care ---
Author Name Unknown Organization [facility] Address [address] [place] [address] Phone [phone] Care Team Providers Care Transformer Molder Name Role Phone Rhys Humphrey MD Primary Care Provide r Encounter Details Date Type Department Care Team (Late st Contact Info) Description 07/23/2023 Telephone Pulmonary Medicine, [place] [address] [place] [address] Prosper Bales MD [address] [place] [address] Allergies Active Allergy Reactions Criticality Noted Date Comments Adhesive Tape Other (Please comment),Hives High 09/29/2008 Caused welts Dextromethorphan-Gu aifenesin Neuro complications (Please comment) Medium 12/23/2021 Feels lightheaded/"foggy" documented as of this encounter (statuses as of 07/30/2023) Medications Medication Sig Dispensed Refills Start Date [...] Active Nebulizers (NEBULIZER COMPRESSOR) MISCIndications:COPD , moderate ([facility]) Inhale via nebulizer. Use as directed. 1 Each 1 11/17/2019 Active Iron 325 (65 Fe) MG Oral Tablet Take 1 Tablet by mouth daily. 0 Active Cranberry 500 MG Oral Capsule Take 1 Capsule by mouth in the morning and 1 Capsule before bedtime. 50 Cap 0 01/18/2021 Active Zftjlrh-Wxpyyihwq-Dw nc 333-133-5 MG Oral Tablet Take 1 Tablet by mouth daily. 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:ORIENTOR D, moderate ([facility]),COPD, group D, by GOLD 2017 classification ([facility]) Inhale by mouth 1 Puff in the [...] Base) MCG/ACT Inhalation Aerosol SolutionIndications: COPD, moderate ([facility]) Inhale 2 Puffs by mouth every 4 [...] COPD, group D, by GOLD 2017 classification ([facility]) Inhale 3 mL via nebulizer every 6 [...] Sunday only. 42.5 g 1 06/08/2023 Active Benzonatate 100 MG Oral Capsule Take 1 Capsule by mouth 3 times a day as needed for Cough. 30 Capsule 1 06/07/2023 Active Furosemide 40 MG Oral Tablet (Lasix)Indications:C hronic diastolic congestive heart failure ([facility]) One tablet daily with an extra tablet [...] 3 months 60 g 1 07/16/2023 Active documented as of this encounter (statuses as of 07/30/2023) Active Problems Problem Noted Date Diagnosed Date [...] as of this encounter (statuses as of 07/30/2023) Resolved Problems Problem Noted Date Diagnosed Date [...] as of this encounter (statuses as of 07/30/2023) Immunizations Name Administration Dates Next Due COVID-19 mRNA, LNP-s, No Pre serve, 2-Dose Series ([employer]) 07/11/2021,11/14/2020,10/24/2020 Covid-19, Mrna, Lnp-s, Pf, B ivalent, 30 Mcg, IM, 12 yrs and above ([employer]) 07/21/2022 Pneumococcal Conjugate Vacc, 13 Valent (Prevnar) 03/16/2015 Pneumococcal Conjugate Vacci ne, 20-valent ([id number]) 07/21/2022 Pneumococcal Polysaccharide PPV23 (Pneumovax) 03/05/2019,07/18/2007 SEASONAL [...] encounter Miscellaneous Notes * Telephone Encounter - Sangeetha Carter, ISELA - 07/30/2023 11:02 AM EDT Called patients daughter back and they want to hold off until next week for the ebus because she isnot feeling well and still has a fever. How many days prior would you like patient to hold her Plavix? Thank you Email sent to request OR time * Telephone Encounter - Surjit Fernandez MD - 07/28/2023 8:27 AM EDT No C arm Thank you * Telephone Encounter - Sangeetha Carter OSA - 07/23/2023 2:11 PM EDT OR time is saved for 08/02/2023 for patient to be done in [place]. Waiting on instructions from Dr. Jim Fernandez please advise if you would like teresita or not. Thank you * Telephone Encounter - Elliott Hoang OSA - 07/23/2023 11:33 AM EDT Hi All, Amairani sent a message to me as well. Let me know if you need to source at [facility] Thanks! * Telephone Encounter - Sangeetha Carter OSA - 07/23/2023 10:[address] Fernandez, Is it okay to schedule patient for ebus on 08/02 with you? Would you like teresita or not? Please advise Thank you * Telephone Encounter - Angelika Aleman - 07/23/2023 10:03 AM EDT PT see for telepulmonary with Dr. Daniel. Provider would like EBUS AND Bronch CELESTINA. Please help schedule appointment. Thank you! documented in this encounter Plan of Treatment Upcoming Encounters Date Type Department Care Team (Latest Contact Info) Description 08/06/2023 12:00 PM EST Scheduled Telephone [facility], [facility] [address] [place] [address] [facility] Nurse Triage [address] [place] [address] 08/10/2023 11:15 AM EST Hospital Encounter [facility]O [facility], Endoscopy Room [facility] [address] [place] [phone] Sangeetha Song DO [address] [place] [address] 08/10/2023 11:15 AM EST - 08/10/2023 11:45 AM EST Surgery ENDO [facility], Endoscopy Room [facility] [address] [place] [phone] Sangeetha Song DO [address] [place] [address] ESOPHAGOGASTRODUODENOSCOPY (EGD), FLEXIBLE, TRANSORAL, DIAGNOSTIC 09/17/2023 9:40 AM EST Office Visit Dermatology [address] [place] [address] Marycruz Almazan PA-C [address] [place] [address] [place] [address] 10/03/2023 10:30 AM EST [facility] [address] [place] [phone] Sosa Freeman CRNP [address] [place] [address] 10/16/2023 11:30 AM EST Office Visit Gastroenterology , [facility] [address] [place] [address] Lizzette Silva CRNP [address] [place] [address] 12/10/2023 9:20 AM EDT Office Visit Family Medicine [address] [place] [phone] Rhys Humphrey MD [address] [place] [address] [place] [address] 12/27/2023 11:00 AM EDT Office Visit Cardiology [address] [place] [address] Mi Neil PA-C [address] [place] [address] 03/18/2024 9:00 AM EDT Nurse Only Ancillary [address] [place] [address] [place], Nurse Annual [address] [place] [address] Scheduled Procedures Name Priority Associated Diagnoses Date/Ti me ESOPHAGOGASTRODUODENOSCOPY ( EGD), FLEXIBLE, TRANSORAL, DIAGNOSTIC Other iron deficiency anemia 08/10/2023 11:15 AM EST Health Maintenance Due Date Last Done Comments [...] D LEVEL ONCE IN A LIFETIME-USE SMARTSET# [id number] Completed 06/29/2020, 03/16/2015 Pneumococcal Vaccine: 65+ Years [...] Documents on File Type Date Recorded Patient Military Analyst Expl anation POLST 10/15/2019 3:17 PM POLST POLST 03/05/2019 POLST FORM Advance Directives and Living Will 01/27/2013 LIVING WILL Advance Directives and Living Will 01/27/2013 LIVING WILL Power of Correctional Corporal 01/27/2013 POWER OF A TTORNEY Power of Correctional Corporal 01/27/2013 POWER OF A TTORNEY Healthcare Agents on File Name Relationship Healthcare Agent Relationship Communication Cydney Benito Other - (no specific identity) Second Alternate Health Care Agent Anyi More Adult Child Health Care Roberth r of Correctional Corporal Care Teams Transformer Molder Relationship Specialty Start Date End Date Rhys Humphrey MD [address] [place] [address] [place] [address] PCP - General Family Medicine 06/09/21 documented as of this encounter
--- OUTSIDE RECORDS SUMMARY | 2023-08-14 23:20 | External Medical Summary | Summary of Care ---
Author Name Unknown Organization [facility] Address [address] [place] [address] Phone [phone] Care Team Providers Care Astronomy Teacher Name Role Phone Rhys Humphrey MD Primary Care Provide r Reason for Visit * Reason Onset Date Comments [facility]: Maintenance 08/03/2023 Encounter Details Date Type Department Care Team (Late st Contact Info) Description 08/03/2023 1:00 PM EDT Scheduled Telephone [facility], [facility] [address] [place] [address] Coordinator, [facility] [address] [place] [address] Allergies Active Allergy Reactions Criticality Noted Date [...] before bedtime. 50 Cap 0 01/18/2021 Active Hdazblr-Fhokucxpj-Su nc 333-133-5 MG Oral Tablet Take 1 Tablet by mouth daily. 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:INTAKE MAN D, moderate (HCC),COPD, group D, by GOLD 2017 classification ([facility]) Inhale by mouth 1 Puff [...] COPD, group D, by GOLD 2017 classification ([facility]) Inhale 3 mL via nebulizer [...] mRNA, LNP-s, No Pre serve, 2-Dose Series ([employer]) 07/11/2021,11/14/2020,10/24/2020 Covid-19, Mrna, Lnp-s, Pf, B ivalent, 30 Mcg, IM, 12 yrs and above ([employer]) 07/21/2022 Pneumococcal Conjugate Vacc, 13 Valent (Prevnar) 03/16/2015 Pneumococcal Conjugate Vacci ne, 20-valent ([id number]) 07/21/2022 Pneumococcal Polysaccharide PPV23 (Pneumovax) 03/05/2019,07/18/2007 SEASONAL [...] encounter Miscellaneous Notes * Telephone Encounter - Lexy Tucker RN [...] care team provider for refill order of Mila Leahy to be sent to [facility] Disposition: Issue resolved. All appropriate follow up scheduled. Future Visits Scheduled: Future Appointments-next 60 days Date/Time Provider Specialty Dept Phone 08/03/2023 1:00 PM Josephine Abdi Field [facility] [phone] 08/06/2023 12:00 PM Josephine Viera Nurse Triage [facility] [phone] 09/17/2023 9:40 AM (Arrive by 9:25 AM) Marycruz Almazan PA-C Dermatology [phone] 10/03/2023 10:30 AM (Arrive by 10:15 AM) Sosa Freeman CRNP Sleep Disorders [phone] 10/16/2023 11:30 AM (Arrive by 11:15 AM) Lizzette Silva CRNP Gastroenterology [phone] 12/10/2023 9:20 AM (Arrive by 9:05 AM) Rhys Humphrey MD Family Medicine [phone] 12/27/2023 11:00 AM (Arrive by 10:45 AM) Mi Neil PA-C Cardiology [phone] 03/18/2024 9:00 AM Nurse [facility] Anc[facility] [phone] Lexy Tucker, RN documented in this encounter Plan of Treatment Upcoming Encounters Date Type Department Care Team (Latest Contact Info) Description 08/06/2023 12:00 PM EST Scheduled Telephone [facility], [facility] [address] [place] [address] Josephine Viera Nurse Triage [address] [place] [address] 08/10/2023 12:33 PM EST Hospital Encounter OR [facility], Operating Room, [facility] - 4th Floor [address] [facility] [place] [address] Surjit Fernandez MD [address] [facility] [place] [address] 08/10/2023 12:33 PM EST - 08/10/2023 1:52 PM EST Surgery OR GL, Operating Room, [facility] - 4th Floor [address] [place] [address] Surjit Fernandez MD [address] [facility] [place] [address] BRONCHOSCOPY, RIGID/FLEXIBLE, INCLUDE FLUORO GUIDANCE, WHEN PERFORMED; W/ EBUS GUIDED TRANSTRACH AND/OR TRANSBRONCH SAMPLING, 1 OR 2 MEDIASTINAL AND/OR HILAR LYMPH NODE STATIONS/STRUCTURES 09/17/2023 9:40 AM EST Office Visit Dermatology [address] [place] [address] Marycruz Almazan PA-C [address] [place] [address] [place] [address] 10/03/2023 10:30 AM EST Office Visit Sleep Disorders Ctr [facility] [address] [facility] [place] [phone] Sosa Freeman CRNP [address] [facility] [place] [address] 10/16/2023 11:30 AM EST Office Visit Gastroenterology, [facility] [address] [facility] [place] [address] Lizzette Silva CRNP [address] [place] [address] 12/10/2023 9:20 AM EDT Office Visit Family Medicine [address] [place] [address] Rhys Humphrey MD [address] [place] [address] [place] [address] 12/27/2023 11:00 AM EDT Office Visit Cardiology [address] [place] [address] Mi Neil PA-C [address] [place] [address] 03/18/2024 9:00 AM EDT Nurse Only Ancillary [address] [place] [address] [place], Nurse Annual [address] [place] [address] Scheduled Procedures Name Priority Associated Diagnoses Date/Ti [...] D LEVEL ONCE IN A LIFETIME-USE SMARTSET# [id number] Completed 06/29/2020, 03/16/2015 Pneumococcal Vaccine: 65+ Years [...] Documents on File Type Date Recorded Patient Youth Pastor Expl anation POLST 10/15/2019 3:17 PM POLST POLST 03/05/2019 POLST FORM Advance Directives and Living Will 01/27/2013 LIVING WILL Advance Directives and Living Will 01/27/2013 LIVING WILL Power of Hand Woven Carpet And Rug Mender 01/27/2013 POWER OF A TTORNEY Power of Hand Woven Carpet And Rug Mender 01/27/2013 POWER OF A TTORNEY Healthcare Agents on File Name Relationship Healthcare Agent Relationship Communication Cydney Benito Other - (no specific identity) Second Alternate Health Care Agent Anyi More Adult Child Health Care Roberth r of Hand Woven Carpet And Rug Mender Care Teams Astronomy Teacher Relationship Specialty Start Date End Date Rhys Humphrey MD [address] [place] [address] [place] [address] PCP - General Family Medicine 06/09/21 documented as of this encounter
--- OUTSIDE RECORDS SUMMARY | 2023-08-14 23:20 | External Medical Summary | Summary of Care ---
Author Name Unknown Organization [facility] Address [address] [place] [address] Phone [phone] Care Team Providers Care Mixed Animal Veterinarian Name Role Phone Rhys Humphrey MD Primary Care Provide r Encounter Details Date Type Department Care Team (Late st Contact Info) Description 07/23/2023 Telephone Pulmonary Medicine, [place] [address] [place] [address] Prosper Bales MD [address] [place] [address] Allergies Active Allergy Reactions Criticality [...] Active Nebulizers (NEBULIZER COMPRESSOR) MISCIndications:COPD , moderate ([facility]) Inhale via nebulizer. Use as directed. 1 Each 1 11/17/2019 Active Iron 325 (65 Fe) MG Oral Tablet Take 1 Tablet by mouth daily. 0 Active Cranberry 500 MG Oral Capsule Take 1 Capsule by mouth in the morning and 1 Capsule before bedtime. 50 Cap 0 01/18/2021 Active Aezolqs-Dgvsekato-Zh nc 333-133-5 MG Oral Tablet Take 1 Tablet by mouth daily. 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:CHARGE AUTHORIZER D, moderate ([facility]),COPD, group D, by GOLD 2017 classification ([facility]) Inhale by mouth 1 Puff in [...] Base) MCG/ACT Inhalation Aerosol SolutionIndications: COPD, moderate ([facility]) Inhale 2 Puffs by mouth every 4 [...] COPD, group D, by GOLD 2017 classification ([facility]) Inhale 3 mL via nebulizer every [...] Tablet (Lasix)Indications:C hronic diastolic congestive heart failure ([facility]) One tablet daily with an extra [...] mRNA, LNP-s, No Pre serve, 2-Dose Series ([employer]) 07/11/2021,11/14/2020,10/24/2020 Covid-19, Mrna, Lnp-s, Pf, B ivalent, 30 Mcg, IM, 12 yrs and above ([employer]) 07/21/2022 Pneumococcal Conjugate Vacc, 13 Valent (Prevnar) 03/16/2015 Pneumococcal Conjugate Vacci ne, 20-valent ([id number]) 07/21/2022 Pneumococcal Polysaccharide PPV23 (Pneumovax) 03/05/2019,07/18/2007 SEASONAL [...] encounter Miscellaneous Notes * Telephone Encounter - Surjit Fernandez MD - 07/30/2023 5:57 PM EDT 5 days Thank you * Telephone Encounter - Sangeetha Carter OSA - 07/30/2023 11:02 AM EDT Called patients [...] 08/02/2023 for patient to be done in [place]. Waiting on instructions from Dr. Jim Fernandez please advise if you would like teresita or not. Thank you * Telephone Encounter - Elliott Hoang OSA - 07/23/2023 11:33 AM EDT Hi All, Amairani sent a message to me as well. Let me know if you need to source at [facility] [place]. Thanks! * Telephone Encounter - Sangeetha Carter [...] PM EST Scheduled Telephone [facility], [facility] [address] [place] [address] [facility] Nurse Triage [address] [place] [address] 08/10/2023 11:15 AM EST Hospital Encounter ENDO [facility], Endoscopy Room [facility] [address] [place] [address] Sangeetha Song, [address] [place] [address] 08/10/2023 11:15 AM EST - 08/10/2023 11:45 AM EST Surgery ENDO [facility], Endoscopy Room [facility] [address] [place] [address] Sangeetha Song DO [address] [place] [address] ESOPHAGOGASTRODUODENOSCOPY (EGD), FLEXIBLE, TRANSORAL, DIAGNOSTIC 09/17/2023 9:40 AM EST Office Visit Dermatology [address] [place] [address] Marycruz Almazan PA-C [address] [place] [address] [place] [address] 10/03/2023 10:30 AM EST Office Visit Sleep Disorders Ctr [facility] [address] [place] [phone] Sosa Freeman CRNP [address] [place] [address] 10/16/2023 11:30 AM EST Office Visit Gastroenterology , [facility] [address] [place] [address] Lizzette Silva CRNP [address] [place] [address] 12/10/2023 9:20 AM EDT Office Visit Family Medicine [address] [place] [phone] Rhys Humphrey MD [address] [place] [address] [place] [address] 12/27/2023 11:00 AM EDT Office Visit Cardiology [address] [place] [address] Mi Neil PA-C [address] [place] [address] 03/18/2024 9:00 AM EDT Nurse Only Ancillary [address] [place] [address] [place], Nurse Annual Wellness [address] [place] [address] [place] [address] Scheduled Procedures Name Priority Associated Diagnoses Date/Ti me ESOPHAGOGASTRODUODENOSCOPY ( EGD), FLEXIBLE, TRANSORAL, DIAGNOSTIC Other iron deficiency anemia 08/10/2023 11:15 AM EST Health Maintenance Due Date Last Done Comments Alpha-1 Antitrypsin 1958 DXA Scan 06/11/2020 06/11/2018, 03/02, 02/16/2012, Additional history exists *BISPHONATE OR OTHER ACCEPTABLE MEDICATION NEEDED FOR OSTEOPOROSIS (REFER TO SMARTSET #1146) 01/23/2021 COVID-19 Vaccine (6 - 2023-24 season) 2023 07/21/2022, 08/01/2021, 07/11/2021, Additional history exists Depression Screening 03/16/2024 03/16/2023 GFR 07/03/2024 07/03/2023, 06/01, 06/07/2023, Additional history exists O2 ASSESSMENT COMPLETED IN PAST YEAR FOR COPD 07/23/2024 07/23/2023 Albumin/Creatinine Ratio 04/28/2025 04/28/2022 DTaP,Tdap,and Td Vaccines (3 - Td or Tdap) 09/17/2029 09/17/2019, 08/10/2011, 10/01/2001 Zoster Vaccines Completed 04/25/2020, 08/31, 07/22/2012 VITAMIN D LEVEL ONCE IN A LIFETIME-USE SMARTSET# [id number] Completed 06/29/2020, 03/16/2015 Pneumococcal Vaccine: 65+ Years [...] Documents on File Type Date Recorded Patient Cloth Washer Back Tender Expl anation POLST 10/15/2019 3:17 PM POLST POLST 03/05/2019 POLST FORM Advance Directives and Living Will 01/27/2013 LIVING WILL Advance Directives and Living Will 01/27/2013 LIVING WILL Power of Room Inspector 01/27/2013 POWER OF A TTORNEY Power of Room Inspector 01/27/2013 POWER OF A TTORNEY Healthcare Agents on File Name Relationship Healthcare Agent Relationship Communication Cydney Benito Other - (no specific identity) Second Alternate Health Care Agent Anyi More Adult Child Health Care Roberth cooper of Room Inspector Care Teams Mixed Animal Veterinarian Relationship Specialty Start Date End Date Rhys Humphrey MD [address] [place] [address] [place] [phone] PCP - General Family Medicine 06/09/21 documented as of this encounter
--- OUTSIDE RECORDS SUMMARY | 2023-08-14 23:20 | External Medical Summary | Summary of Care ---
Author Name Unknown Organization [facility] Address [address] [place] [address] Phone [phone] Care Team Providers Care Perforator Operator Oil Well Name Role Phone Rhys Humphrey MD Primary Care Provide r Reason for Visit * Reason Onset Date Comments Other 04/30/2023 Encounter Details Date Type Department Care Team (Late st Contact Info) Description 04/30/2023 Telephone Family Medicine [address] [phone] Rhys Humphrey MD [address] [place] [address] [place] [address] Other (/) Allergies Active Allergy Reactions Criticality Noted Date [...] Each 0 11/11/2019 Active Nebulizers (NEBULIZER COMPRESSOR) MISCIndications:COPD, moderate ([facility]) Inhale via nebulizer. Use as directed. 1 Each 1 11/17/2019 Active Iron 325 (65 Fe) MG Oral Tablet Take 1 Tablet by mouth daily. 0 Active Cranberry 500 MG Oral Capsule Take 1 Capsule by mouth in the morning and 1 Capsule before bedtime. 50 Cap 0 01/18/2021 Active Qlntxac-Bzoepbxfw-Jrk c 333-133-5 MG Oral Tablet Take 1 Tablet by mouth daily. 0 Active Anoro Ellipta 62.5-25 MCG/INH Inhalation Aerosol Powder Breath Activated (umeclidinium-vilante rol)Indications:COPD, moderate (HCC),COPD, group D, by GOLD 2017 classification ([facility]) Inhale by mouth 1 [...] 0 Active Fluticasone Propionate 50 MCG/ACT Nasal SuspensionIndications :Dysfunction of both eustachian tubes Administer 2 Sprays into each nostril in the morning. 16 g 3 10/06/2022 Active Loratadine 10 MG Oral Tablet (Claritin)Indications :Dysfunction of both eustachian tubes Take 1 Tablet by mouth in the morning. For nasal congestion and ear pressure. 30 Tablet 1 10/06/2022 Active Docusate Sodium 100 MG Oral Capsule (Colace) Take 2 Capsules by mouth 2 times a day as needed. 0 Active Albuterol Sulfate HFA 108 (90 Base) MCG/ACT Inhalation Aerosol SolutionIndications:C OPD, moderate (HCC) Inhale 2 Puffs by mouth every 4 hours as needed for Cough, Shortness of Breath or Wheezing. 18 g 5 01/01/2023 Active Montelukast Sodium 10 MG Oral Tablet (Singulair)Indication s:Moderate chronic obstructive pulmonary disease (HCC) TAKE ONE TABLET BY MOUTH EVERY DAY 90 Tablet 3 01/25/2023 Active Pantoprazole Sodium 40 MG Oral Tablet Delayed Release (Protonix) TAKE ONE TABLET EVERY DAY 90 Tablet 3 01/25/2023 Active Meclizine HCl 12.5 MG Oral Tablet (Antivert)Indications :Vertigo Take 1 Tablet by mouth 3 times a day as needed for Dizziness. 30 Tablet 0 03/16/2023 Active Ipratropium-Albuterol 0.5-2.5 (3) MG/3ML Inhalation Solution (Duoneb)Indications:C OPD, group D, by GOLD 2017 classification (HCC) Inhale 3 mL via nebulizer every 6 hours as needed for Shortness of Breath or Wheezing. 360 mL 3 03/22/2023 Active Atorvastatin Calcium 40 MG Oral Tablet (Lipitor)Indications: Dyslipidemia, goal LDL below 100 Take 1 Tablet by mouth daily. 90 Tablet 1 04/11/2023 Active Clopidogrel Bisulfate 75 MG Oral Tablet (pLAVix)Indications:T IA (transient ischemic attack) Take 1 Tablet by mouth daily. 90 Tablet 1 04/11/2023 Active documented as of this encounter (statuses [...] mRNA, LNP-s, No Pre serve, 2-Dose Series ([employer]) 07/11/2021,11/14/2020,10/24/2020 Covid-19, Mrna, Lnp-s, Pf, B ivalent, 30 Mcg, IM, 12 yrs and above ([employer]) 07/21/2022 Pneumococcal Conjugate Vacc, 13 Valent (Prevnar) 03/16/2015 Pneumococcal Conjugate Vacci ne, 20-valent ([id number]) 07/21/2022 Pneumococcal Polysaccharide PPV23 (Pneumovax) 03/05/2019,07/18/2007 SEASONAL INFLUENZA, PF, 6 M & Above, IM , (FLULAVAL or FLUZONE) 06/28/2018,07/28/2017 Season Influenza, Quad, PF, Adjuvanted, 65+ Yrs, IM (FLUAD) 06/16/2020 Seasonal Influenza, Quadriva lent Hd (Fluzone Hd) 06/16/2022,06/08/2021 Seasonal Influenza, Quadriva lent, No Preserve, IM [...] encounter Miscellaneous Notes * Telephone Encounter - Kasey Ruiz OSA - 04/30/2023 4:02 PM EDT Patient stating that she received a call from [employer] but does not know who it was from. She is currently out of town in [place] and will not return home until 05/10/23. documented in this encounter Plan of Treatment Upcoming Encounters Date Type Department Care Team (Latest Contact Info) Description 08/06/2023 12:00 PM EST Scheduled Telephone [facility], [facility] [address] [place] [address] [facility] Nurse T[facility] [address] [place] [address] 08/10/2023 11:15 AM EST Hospital Encounter ENDO [facility], Endoscopy Room [facility] [address] [place] [phone] Sangeetha Song DO [address] [place] [address] 08/10/2023 11:15 AM EST - 08/10/2023 11:45 AM EST Surgery ENDO [facility], Endoscopy Room [facility] [address] [place] [address] Sangeetha Song DO [address] [place] [address] ESOPHAGOGASTRODUODENOSCOPY (EGD), FLEXIBLE, TRANSORAL, DIAGNOSTIC 09/17/2023 9:40 AM EST Office Visit Dermatology [address] [place] [address] Marycruz Almazan PA-C [address] [place] [address] [place] [address] 10/03/2023 10:30 AM EST Office Visit Sleep Disorders Ctr [facility] [address] [place] [phone] Sosa Freeman CRNP [address] [place] [address] 10/16/2023 11:30 AM EST Office Visit Gastroenterology , [facility] [address] [place] [address] Lizzette Silva CRNP [address] [place] [address] 12/10/2023 9:20 AM EDT Office Visit Family Medicine [address] [place] [phone] Rhys Humphrey MD [address] [place] [address] [place] [address] 12/27/2023 11:00 AM EDT Office Visit Cardiology [address] [place] [address] Mi Neil PA-C [address] [place] [address] 03/18/2024 9:00 AM EDT Nurse Only Ancillary [address] [place] [address] [place], Nurse Annual Wellness [address] [place] [address] [place] [address] Scheduled Procedures Name Priority Associated Diagnoses Date/Ti me ESOPHAGOGASTRODUODENOSCOPY ( EGD), FLEXIBLE, TRANSORAL, DIAGNOSTIC Other iron deficiency anemia 08/10/2023 11:15 AM EST Health Maintenance Due Date Last Done Comments Alpha-1 Antitrypsin 1958 DXA Scan 06/11/2020 06/11/2018, 03/02, 02/16/2012, Additional history exists *BISPHONATE OR OTHER ACCEPTABLE MEDICATION NEEDED FOR OSTEOPOROSIS (REFER TO SMARTSET #1146) 01/23/2021 COVID-19 Vaccine (2022- season) 2023 07/21/2022, 08/01/2021, 07/11/2021, Additional history exists Depression Screening 03/16/2024 03/16/2023 GFR 07/03/2024 07/03/2023, 06/01, 06/07/2023, Additional history exists O2 ASSESSMENT COMPLETED IN PAST YEAR FOR COPD 07/23/2024 07/23/2023 Albumin/Creatinine Ratio 04/28/2025 04/28/2022 DTaP,Tdap,and Td Vaccines (3 - Td or Tdap) 09/17/2029 09/17/2019, 08/10/2011, 10/01/2001 Zoster Vaccines Completed 04/25/2020, 08/31, 07/22/2012 VITAMIN D LEVEL ONCE IN A LIFETIME-USE SMARTSET# [id number] Completed 06/29/2020, 03/16/2015 Pneumococcal Vaccine: 65+ Years [...] Documents on File Type Date Recorded Patient Marking Room Supervisor Expl anation POLST 10/15/2019 3:17 PM POLST POLST 03/05/2019 POLST FORM Advance Directives and Living Will 01/27/2013 LIVING WILL Advance Directives and Living Will 01/27/2013 LIVING WILL Power of Price Lister 01/27/2013 POWER OF A TTORNEY Power of Price Lister 01/27/2013 POWER OF A TTORNEY Healthcare Agents on File Name Relationship Healthcare Agent Relationship Communication Cydney Benito Other - (no specific identity) Second Alternate Health Care Agent Anyi More Adult Child Health Care Roberth r of Price Lister Care Teams Perforator Operator Oil Well Relationship Specialty Start Date End Date Rhys Humphrey MD [address] [place] [address] [place] [address] PCP - General Family Medicine 06/09/21 documented as of this encounter
--- OUTSIDE RECORDS SUMMARY | 2023-08-14 23:20 | External Medical Summary | Summary of Care ---
Author Name Unknown Organization [facility] Address [address] [place] [address] Phone [phone] Care Team Providers Care Patient Financial Specialist Name Role Phone Rhys Humphrey MD Primary Care Provide r Reason for Visit * Reason Onset Date Comments Appointment 07/30/2023 No appt /pt has cough/chest congestion Encounter Details Date Type Department Care Team (Late st Contact Info) Description 07/30/2023 Telephone Family Medicine [address] [phone] Rhys Humphrey MD [address] [place] [address] [place] [address] Appointment (No appt /pt has cough/chest c... Allergies Active Allergy Reactions Criticality Noted Date [...] before bedtime. 50 Cap 0 01/18/2021 Active Zmowgda-Lapgahssk-Hk nc 333-133-5 MG Oral Tablet Take 1 Tablet by mouth daily. 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:QUALITY TECH D, moderate (HCC),COPD, group D, by GOLD [...] group D, by GOLD 2017 classification ([facility]) Inhale 3 mL via nebulizer every 6 [...] mRNA, LNP-s, No Pre serve, 2-Dose Series ([employer]) 07/11/2021,11/14/2020,10/24/2020 Covid-19, Mrna, Lnp-s, Pf, B ivalent, 30 Mcg, IM, 12 yrs and above ([employer]) 07/21/2022 Pneumococcal Conjugate Vacc, 13 Valent (Prevnar) 03/16/2015 Pneumococcal Conjugate Vacci ne, 20-valent ([id number]) 07/21/2022 Pneumococcal Polysaccharide PPV23 (Pneumovax) 03/05/2019,07/18/2007 SEASONAL [...] encounter Miscellaneous Notes * Telephone Encounter - Isa Grewal LPN - 07/30/2023 4:56 PM EDT I called pt- she states she does not need an appointment now, she said she has to have her "arteries done" and will call when she comes back. * Telephone Encounter - Karin Weller OSA - 07/30/2023 9:09 AM EDT No Appointments Available Patient declined appointments?: Yes What Visit Type is needed? Acute If Acute Visit Type is needed, were surrounding clinics offered to patient (Yes/No)? No, explain [facility]ill only go [facility] Was patient offered appointments with other available providers (Yes/No)? No, explain will only Daniel Carbone Call pt at [phone] documented in this encounter Plan of Treatment Upcoming Encounters Date Type Department Care Team (Latest Contact Info) Description 08/06/2023 12:00 PM EST Scheduled Telephone [facility] [address] [place] [address] [facility] Nurse Triage [address] [place] [address] 08/10/2023 11:15 AM EST Hospital Encounter ENDO [facility], Endoscopy Room [facility] [address] [place] [place] [phone] Sangeetha Song, [address] [place] [address] 08/10/2023 11:15 AM EST - 08/10/2023 11:45 AM EST Surgery ENDO [facility], Endoscopy Room [facility] [address] [place] [phone] Sangeetha Song, [address] [place] [address] ESOPHAGOGASTRODUODENOSCOPY (EGD), FLEXIBLE, TRANSORAL, DIAGNOSTIC 09/17/2023 9:40 AM EST Office Visit Dermatology [address] [place] [address] Marycruz Almazan PA-C [address] [place] [address] [place] [address] 10/03/2023 10:30 AM EST Office Visit Sleep Disorders Ctr [facility] [address] [place] [address] Sosa Freeman CRNP [address] [place] [address] 10/16/2023 11:30 AM EST Office Visit Gastroenterology , [facility] [address] [place] [address] Lizzette Silva CRNP [address] [place] [address] 12/10/2023 9:20 AM EDT Office Visit Family Medicine [address] [place] [phone] Rhys Humphrey MD [address] [place] [address] [place] [address] 12/27/2023 11:00 AM EDT Office Visit Cardiology [address] [place] [address] Mi Neil PA-C [address] [place] [address] 03/18/2024 9:00 AM EDT Nurse Only Ancillary [address] [place] [address] [place], Nurse Annual Wellness [address] [place] [address] [place] [address] Scheduled Procedures Name Priority Associated Diagnoses Date/Ti [...] D LEVEL ONCE IN A LIFETIME-USE SMARTSET# [id number] Completed 06/29/2020, 03/16/2015 Pneumococcal Vaccine: 65+ Years [...] Documents on File Type Date Recorded Patient Channeler Insole Expl anation POLST 10/15/2019 3:17 PM POLST POLST 03/05/2019 POLST FORM Advance Directives and Living Will 01/27/2013 LIVING WILL Advance Directives and Living Will 01/27/2013 LIVING WILL Power of Robotic Welder 01/27/2013 POWER OF A TTORNEY Power of Robotic Welder 01/27/2013 POWER OF A TTORNEY Healthcare Agents on File Name Relationship Healthcare Agent Relationship Communication Cydney Benito Other - (no specific identity) Second Alternate Health Care Agent Anyi More Adult Child Health Care Roberth r of Robotic Welder Care Teams Patient Financial Specialist Relationship Specialty Start Date End Date Rhys Humphrey MD [address] [place] [address] [place] [address] PCP - General Family Medicine 06/09/21 documented as of this encounter
--- OUTSIDE RECORDS SUMMARY | 2023-08-14 23:20 | External Medical Summary | Summary of Care ---
Author Name Unknown Organization [facility] Address [address] [place] [address] Phone [phone] Care Team Providers Care Medical Physiologist Name Role Phone Rhys Humphrey MD Primary Care Provide r Reason for Visit * Reason Onset Date Comments [facility]: Maintenance 08/03/2023 Encounter Details Date Type Department Care Team (Late st Contact Info) Description 08/03/2023 Telephone [facility], [facility] [address] [place] [address] [facility], Nurse [address] [place] [address] [facility]: Maintenance Allergies Active Allergy [...] before bedtime. 50 Cap 0 01/18/2021 Active Zguxxdy-Ixkepsgbr-Me nc 333-133-5 MG Oral Tablet Take 1 Tablet by mouth daily. 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 D, moderate (HCC),COPD, group D, by GOLD 2017 classification ([facility]) Inhale by mouth 1 [...] group D, by GOLD 2017 classification ([facility]) Inhale 3 mL via [...] mRNA, LNP-s, No Pre serve, 2-Dose Series ([facility]) 07/11/2021,11/14/2020,10/24/2020 Covid-19, Mrna, Lnp-s, Pf, B ivalent, 30 Mcg, IM, 12 yrs and above ([facility]) 07/21/2022 Pneumococcal Conjugate Vacc, 13 Valent (Prevnar) 03/16/2015 Pneumococcal Conjugate Vacci ne, 20-valent ([id number]) 07/21/2022 Pneumococcal Polysaccharide PPV23 (Pneumovax) 03/05/2019,07/18/2007 SEASONAL [...] encounter Miscellaneous Notes * Telephone Encounter - Amrita Alcantar, RAYNA - 08/03/2023 3:46 PM EDT Pt is calling [facility] to ask if she should cancel her [...] not ordered. Please advise/. Amrita Alcantar RN [facility] Intake Triage Coordinator [phone] documented in this encounter Plan of Treatment Upcoming Encounters Date Type Department Care Team (Latest Contact Info) Description 08/06/2023 12:00 PM EST Scheduled Telephone [facility] [place], [facility] [place] [address] [facility] Nurse Triage [address] [facility] [place] [address] 08/10/2023 12:33 PM EST Hospital Encounter OR [facility], Operating Room, [facility] - 4th Floor [address] [place] [address] Surjit Fernandez MD [address] [place] [address] 08/10/2023 12:33 PM EST - 08/10/2023 1:52 PM EST Surgery OR [facility], Operating Room, [facility] - 4th Floor [address] [place] [address] Surjit Fernandez MD [address] [place] [address] BRONCHOSCOPY, RIGID/FLEXIBLE, INCLUDE FLUORO GUIDANCE, WHEN PERFORMED; W/ EBUS GUIDED TRANSTRACH AND/OR TRANSBRONCH SAMPLING, 1 OR 2 MEDIASTINAL AND/OR HILAR LYMPH NODE STATIONS/STRUCTURES 09/17/2023 9:40 AM EST Office Visit Dermatology [address] [place] [address] Marycruz Almazan PA-C [address] [place] [address] [place] [address] 10/03/2023 10:30 AM EST Office Visit Sleep Disorders Ctr [facility] [address] [place] [phone] Sosa Freeman CRNP [address] [place] [address] 10/16/2023 11:30 AM EST Office Visit Gastroenterology, [facility] [place] [address] Lizzette Silva CRNP [address] [place] [address] 12/10/2023 9:20 AM EDT Office Visit Family Medicine [address] [place] [address] Rhys Humphrey MD [address] [place] [address] [place] [address] 12/27/2023 11:00 AM EDT Office Visit Cardiology [address] [place] [address] Mi Neil PA-C [address] [place] [address] 03/18/2024 9:00 AM EDT Nurse Only Ancillary [address] [place] [address] Janinealley, Nurse Annual [address] [place] [address] Scheduled Procedures Name Priority Associated Diagnoses Date/Ti [...] D LEVEL ONCE IN A LIFETIME-USE SMARTSET# [id number] Completed 06/29/2020, 03/16/2015 Pneumococcal Vaccine: 65+ Years [...] Documents on File Type Date Recorded Patient Animal Shelter Supervisor Expl anation POLST 10/15/2019 3:17 PM POLST POLST 03/05/2019 POLST FORM Advance Directives and Living Will 01/27/2013 LIVING WILL Advance Directives and Living Will 01/27/2013 LIVING WILL Power of Body Die Maker 01/27/2013 POWER OF A TTORNEY Power of Body Die Maker 01/27/2013 POWER OF A TTORNEY Healthcare Agents on File Name Relationship Healthcare Agent Relationship Communication Cydney Benito Other - (no specific identity) Second Alternate Health Care Agent Anyi More Adult Child Health Care Roberth r of Body Die Maker Care Teams Medical Physiologist Relationship Specialty Start Date End Date Rhys Humphrey MD [address] [place] [address] [place] [address] PCP - General Family Medicine 06/09/21 documented as of this encounter
--- OUTSIDE RECORDS SUMMARY | 2023-08-14 23:20 | External Medical Summary | Summary of Care ---
Author Name Unknown Organization [facility] Address [address] [place] [address] Phone [phone] Care Team Providers Care Managing Partner Digital Content Marketing [place] Name Role Phone Rhys Humphrey MD Primary Care Provide r Encounter Details Date Type Department Care Team (Late st Contact Info) Description 07/23/2023 Telephone Pulmonary Medicine, [facility] [address] [place] [address] Prosper Bales MD [address] [place] [address] Allergies Active Allergy Reactions Criticality Noted Date Comments Adhesive Tape Other (Please comment),Hives High 09/29/2008 Caused welts Dextromethorphan-Gu aifenesin Neuro complications (Please comment) Medium 12/23/2021 Feels lightheaded/"foggy" documented as of this encounter (statuses as of 08/01/2023) Medications Medication Sig Dispensed Refills Start Date [...] Active Nebulizers (NEBULIZER COMPRESSOR) MISCIndications:COPD , moderate ([facility]) Inhale via nebulizer. Use as directed. 1 Each 1 11/17/2019 Active Iron 325 (65 Fe) MG Oral Tablet Take 1 Tablet by mouth daily. 0 Active Cranberry 500 MG Oral Capsule Take 1 Capsule by mouth in the morning and 1 Capsule before bedtime. 50 Cap 0 01/18/2021 Active Dtplmws-Rzfooscum-Xp nc 333-133-5 MG Oral Tablet Take 1 Tablet by mouth daily. 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 D, moderate ([facility]),COPD, group D, by GOLD 2017 classification ([facility]) Inhale by mouth 1 Puff [...] Base) MCG/ACT Inhalation Aerosol SolutionIndications: COPD, moderate ([facility]) Inhale 2 Puffs by mouth every 4 [...] COPD, group D, by GOLD 2017 classification ([facility]) Inhale 3 mL via nebulizer [...] Tablet (Lasix)Indications:C hronic diastolic congestive heart failure ([facility]) One tablet daily with an [...] as of this encounter (statuses as of 08/01/2023) Active Problems Problem Noted Date Diagnosed Date [...] as of this encounter (statuses as of 08/01/2023) Resolved Problems Problem Noted Date Diagnosed Date [...] as of this encounter (statuses as of 08/01/2023) Immunizations Name Administration Dates Next Due COVID-19 mRNA, LNP-s, No Pre serve, 2-Dose Series ([facility] [employer])) 07/11/2021,11/14/2020,10/24/2020 Covid-19, Mrna, Lnp-s, Pf, B ivalent, 30 Mcg, IM, 12 yrs and above ([facility])) 07/21/2022 Pneumococcal Conjugate Vacc, 13 Valent (Prevnar) 03/16/2015 Pneumococcal Conjugate Vacci ne, 20-valent ([id number]) 07/21/2022 Pneumococcal Polysaccharide PPV23 (Pneumovax) 03/05/2019,07/18/2007 SEASONAL [...] Telephone Encounter - Sangeetha Carter, ISELA - 08/01/2023 7:37 AM EDT Patient is scheduled for 08/10/2023. Daughter is aware of the date and prep. And to hold the plavix 5 days prior to ebus. * Telephone Encounter - Sangeetha Carter OSA - 07/31/2023 8:36 AM EDT Waiting on OR time * Telephone Encounter - Surjit [...] 08/02/2023 for patient to be done in [place]. Waiting on instructions from Dr. Jim Fernandez please advise if you would like teresita or not. Thank you * Telephone Encounter - Elliott Hoang OSA - 07/23/2023 11:33 AM EDT Amairani Johnson sent a message to me as well. Let me know if you need to source at [facility]. Thanks! * Telephone Encounter - Sangeetha Carter [...] PM EST Scheduled Telephone [facility], [facility] [address] [place] [address] [facility] Nurse Triage [address] [place] [address] 08/10/2023 11:15 AM EST Hospital Encounter [facility], Endoscopy Room [facility] [address] [place] [phone] Sangeetha Song DO [address] [place] [address] 08/10/2023 11:15 AM EST - 08/10/2023 11:45 AM EST Surgery ENDO [facility], Endoscopy Room [facility] [address] [place] [phone] Sangeetha Song DO [address] [place] [address] ESOPHAGOGASTRODUODENOSCOPY (EGD), FLEXIBLE, TRANSORAL, DIAGNOSTIC 08/10/2023 12:33 PM EST Hospital Encounter OR [facility], Operating Room, [facility] - 4th Floor [address] [place], [place] [address] [facility]jit Fernandez MD [address] [facility] [address] 08/10/2023 12:33 PM EST - 08/10/2023 1:52 PM EST Surgery OR [facility], Operating Room, [facility] - 4th Floor [address] [place] [address] Surjit Fernandez MD [address] [place] [address] BRONCHOSCOPY, RIGID/FLEXIBLE, INCLUDE FLUORO GUIDANCE, WHEN PERFORMED; W/ EBUS GUIDED TRANSTRACH AND/OR TRANSBRONCH SAMPLING, 1 OR 2 MEDIASTINAL AND/OR HILAR LYMPH NODE STATIONS/STRUCTURES 09/17/2023 9:40 AM EST Office Visit Dermatology [address] [place] [address] Marycruz Almazan PA-C [address] [place] [address] [place] [address] 10/03/2023 10:30 AM EST Office [facility] [place] [phone] Sosa Freeman CRNP [address] [place] [address] 10/16/2023 11:30 AM EST Office Visit Gastroenterology , [facility] [address] [place] [address] Lizzette Silva CRNP [address] [place] [address] 12/10/2023 9:20 AM EDT Office Visit Family Medicine [address] [place] [phone] Rhys Humphrey MD [address] [place] [address] [place] [address] 12/27/2023 11:00 AM EDT Office Visit Cardiology [address] [place] [address] Mi Neil PA-C [address] [place] [address] 03/18/2024 9:00 AM EDT Nurse Only Ancillary [address] [place] [address] Janinealley, Nurse Annual [address] [place] [address] Scheduled Procedures Name Priority Associated Diagnoses Date/Ti me BRONCHOSCOPY, RIGID/FLEXIBLE , INCLUDE FLUORO GUIDANCE, WHEN PERFORMED; W/ EBUS GUIDED TRANSTRACH AND/OR TRANSBRONCH SAMPLING, 1 OR 2 MEDIASTINAL AND/OR HILAR LYMPH NODE STATIONS/STRUCTURES Lung nodule 08/10/2023 12:33 PM EST ESOPHAGOGASTRODUODENOSCOPY ( EGD), FLEXIBLE, TRANSORAL, DIAGNOSTIC Other [...] D LEVEL ONCE IN A LIFETIME-USE SMARTSET# [id number] Completed 06/29/2020, 03/16/2015 Pneumococcal Vaccine: 65+ Years [...] Documents on File Type Date Recorded Patient Owner Expl anation POLST 10/15/2019 3:17 PM POLST POLST 03/05/2019 POLST FORM Advance Directives and Living Will 01/27/2013 LIVING WILL Advance Directives and Living Will 01/27/2013 LIVING WILL Power of Milk Route Deliverer 01/27/2013 POWER OF A TTORNEY Power of Milk Route Deliverer 01/27/2013 POWER OF A TTORNEY Healthcare Agents on File Name Relationship Healthcare Agent Relationship Communication Cydney Benito Other - (no specific identity) Second Alternate Health Care Agent Anyi More Adult Child Health Care Roberth r of Milk Route Deliverer Care Teams Managing Partner Digital Content Marketing [place] Relationship Specialty Start Date End Date Rhys Humphrey MD [address] [place] [address] [place] [address] PCP - General Family Medicine 06/09/21 documented as of this encounter
--- OUTSIDE RECORDS SUMMARY | 2023-08-14 23:20 | External Medical Summary | Summary of Care ---
Author Name Unknown Organization [facility] Address [address] [place] [address] Phone [phone] Care Team Providers Care Rug Shampooer Name Role Phone Rhys Humphrey MD Primary Care Provide r Encounter Details Date Type Department Care Team (Late st Contact Info) Description 07/23/2023 Telephone Pulmonary Medicine, [place] [address] [place] [address] Prosper Bales MD [address] [place] [address] Allergies Active Allergy Reactions Criticality Noted Date Comments Adhesive Tape Other (Please comment),Hives High 09/29/2008 Caused welts Dextromethorphan-Gu aifenesin Neuro complications (Please comment) Medium 12/23/2021 Feels lightheaded/"foggy" documented as of this encounter (statuses as of 07/31/2023) Medications Medication Sig Dispensed Refills Start Date [...] Active Nebulizers (NEBULIZER COMPRESSOR) MISCIndications:COPD , moderate ([facility]) Inhale via nebulizer. Use as directed. 1 Each 1 11/17/2019 Active Iron 325 (65 Fe) MG Oral Tablet Take 1 Tablet by mouth daily. 0 Active Cranberry 500 MG Oral Capsule Take 1 Capsule by mouth in the morning and 1 Capsule before bedtime. 50 Cap 0 01/18/2021 Active Leiweas-Auiemdpot-Ql nc 333-133-5 MG Oral Tablet Take 1 Tablet by mouth daily. 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[facility]),COPD, group D, by GOLD 2017 classification ([facility]) Inhale by mouth 1 Puff in the [...] Base) MCG/ACT Inhalation Aerosol SolutionIndications: COPD, moderate ([facility]) Inhale 2 Puffs by mouth every 4 [...] COPD, group D, by GOLD 2017 classification ([facility]) Inhale 3 mL via nebulizer every 6 [...] Tablet (Lasix)Indications:C hronic diastolic congestive heart failure ([facility]) One tablet daily with an extra tablet [...] as of this encounter (statuses as of 07/31/2023) Active Problems Problem Noted Date Diagnosed Date [...] as of this encounter (statuses as of 07/31/2023) Resolved Problems Problem Noted Date Diagnosed Date [...] as of this encounter (statuses as of 07/31/2023) Immunizations Name Administration Dates Next Due COVID-19 mRNA, LNP-s, No Pre serve, 2-Dose Series ([employer]) 07/11/2021,11/14/2020,10/24/2020 Covid-19, Mrna, Lnp-s, Pf, B ivalent, 30 Mcg, IM, 12 yrs and above ([employer]) 07/21/2022 Pneumococcal Conjugate Vacc, 13 Valent (Prevnar) 03/16/2015 Pneumococcal Conjugate Vacci ne, 20-valent ([id number]) 07/21/2022 Pneumococcal Polysaccharide PPV23 (Pneumovax) 03/05/2019,07/18/2007 SEASONAL [...] Miscellaneous Notes * Telephone Encounter - Sangeetha Carter OSA [...] 08/02/2023 for patient to be done in [place]. Waiting on instructions from Dr. Jim Fernandez please advise if you would like teresita or not. Thank you * Telephone Encounter - Elliott Hoang OSA - 07/23/2023 11:33 AM EDT Hi All, Amairani sent a message to me as well. Let me know if you need to source at [facility]. Thanks! * Telephone Encounter - Sangeetha Carter [...] 12:00 PM EST Scheduled Telephone [facility] [place], [facility] [address] [place] [address] [facility] Nurse Triage [address] [place] [address] 08/10/2023 11:15 AM EST Hospital Encounter [facility], Endoscopy Room [facility] [address] [place] [phone] Sangeetha Song DO [address] [place] [address] 08/10/2023 11:15 AM EST - 08/10/2023 11:45 AM EST Surgery [facility], Endoscopy Room [facility] [address] [place] [address] Sangeetha Song DO [address] [place] [address] ESOPHAGOGASTRODUODENOSCOPY (EGD), FLEXIBLE, TRANSORAL, DIAGNOSTIC 09/17/2023 9:40 AM EST Office Visit Dermatology [address] [place] [phone] Marycruz Almazan PA-C [address] [place] [address] [place] [address] 10/03/2023 10:30 AM EST Office Visit Sleep Disorders Ctr [facility] [address] [place] [phone] Sosa Freeman CRNP [address] [place] [address] 10/16/2023 11:30 AM EST Office Visit Gastroenterology , [facility] [address] [place] [place] [address] Lizzette Silva CRNP [address] [place] [place] [address] 12/10/2023 9:20 AM EDT Office Visit Family Medicine [address] [place] [phone] Rhys Humphrey MD [address] [place] [address] [place] [address] 12/27/2023 11:00 AM EDT Office Visit Cardiology [address] [place] [address] Mi Neil PA-C [address] [place] [address] 03/18/2024 9:00 AM EDT Nurse Only Ancillary [address] [place] [address] [place], Nurse Annual Wellness [address] [place] [address] [place] [address] Scheduled Procedures Name Priority Associated Diagnoses Date/Ti [...] D LEVEL ONCE IN A LIFETIME-USE SMARTSET# [id number] Completed 06/29/2020, 03/16/2015 Pneumococcal Vaccine: 65+ Years [...] Documents on File Type Date Recorded Patient Forensic Artist Expl anation POLST 10/15/2019 3:17 PM POLST POLST 03/05/2019 POLST FORM Advance Directives and Living Will 01/27/2013 LIVING WILL Advance Directives and Living Will 01/27/2013 LIVING WILL Power of Housekeeper Manager 01/27/2013 POWER OF A TTORNEY Power of Housekeeper Manager 01/27/2013 POWER OF A TTORNEY Healthcare Agents on File Name Relationship Healthcare Agent Relationship Communication Cydney Benito Other - (no specific identity) Second Alternate Health Care Agent Anyi More Adult Child Health Care Roberth r of Housekeeper Manager Care Teams Rug Shampooer Relationship Specialty Start Date End Date Rhys Humphrey MD [address] [place] [address] [place] [address] PCP - General Family Medicine 06/09/21 documented as of this encounter
--- OUTSIDE RECORDS SUMMARY | 2023-08-14 23:20 | External Medical Summary | Summary of Care ---
Author Name Unknown Organization [facility] Address [address] [place] [address] Phone [phone] Care Team Providers Care Park Interpretive Ranger Name Role Phone Rhys Humphrey MD Primary Care Provide r Reason for Visit * Reason Onset Date Comments [facility]: Maintenance 08/03/2023 Encounter Details Date Type Department Care Team (Late st Contact Info) Description 08/03/2023 Telephone [facility], [facility] [address] [place] [address] [facility], Nurse [facility] [address] [place] [address] [facility]: Maintenance Allergies Active Allergy [...] before bedtime. 50 Cap 0 01/18/2021 Active Ykappie-Cxntpjiwx-Fs nc 333-133-5 MG Oral Tablet Take 1 Tablet by mouth daily. 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 RN D, moderate (HCC),COPD, group D, by GOLD [...] mRNA, LNP-s, No Pre serve, 2-Dose Series (Ubi) 07/11/2021,11/14/2020,10/24/2020 Covid-19, Mrna, Lnp-s, Pf, B ivalent, 30 Mcg, IM, 12 yrs and above (Pfizer) 07/21/2022 Pneumococcal Conjugate Vacc, 13 Valent (Prevnar) 03/16/2015 Pneumococcal Conjugate Vacci ne, 20-valent ([id number]) 07/21/2022 Pneumococcal Polysaccharide PPV23 (Pneumovax) 03/05/2019,07/18/2007 SEASONAL [...] encounter Miscellaneous Notes * Telephone Encounter - Cammy Peres LPN - 08/03/2023 11:32 AM EDT Received call from pt- She has an upcoming procedure and is to hold her Plavix X 5 days but she is not able to identify it. V\\CVall to [place] pharmacy, they were not aware to hold med. Tablet in med pack uis Commercial Airline Pilot: Jake It is a small round pale pink tablet w L 11 on it CVall back to patient, she had a neighbor remove tablet. documented in this encounter Plan of Treatment Upcoming Encounters Date Type Department Care Team (Latest Contact Info) Description 08/03/2023 1:00 PM EDT Scheduled Telephone [facility], [facility] [address] [facility] [place] [address] [facility] [address] [facility] [place] [address] 08/06/2023 12:00 PM EST Scheduled Telephone [facility] [place], [facility] [address] [facility] [place] [address] [facility] [address] [facility] [place] [address] 08/10/2023 12:33 PM EST Hospital Encounter OR [facility], Operating Room, [facility] - 4th Floor [address] [place] [address] Surjit Fernandez MD [address] [place] [facility] [place] [address] 08/10/2023 12:33 PM EST - 08/10/2023 1:52 PM EST Surgery OR [facility], Operating Room, [facility] - 4th Floor [address] [place] [address] Surjit Fernandez MD [address] [facility] [place] [address] BRONCHOSCOPY, RIGID/FLEXIBLE, INCLUDE FLUORO GUIDANCE, WHEN PERFORMED; W/ EBUS GUIDED TRANSTRACH AND/OR TRANSBRONCH SAMPLING, 1 OR 2 MEDIASTINAL AND/OR HILAR LYMPH NODE STATIONS/STRUCTURES 09/17/2023 9:40 AM EST Office Visit Dermatology [address] [place] [address] Marycruz Almazan PA-C [address] [place] [address] [place] [address] 10/03/2023 10:30 AM EST Office Visit Sleep Disorders Ctr [facility] [address] [place] [phone] Sosa Freeman CRNP [address] [place] [address] 10/16/2023 11:30 AM EST Office Visit Gastroenterology, [facility] [address] [place] [address] Lizzette Silva CRNP [address] [place] [address] 12/10/2023 9:20 AM EDT Office Visit Family Medicine [address] [place] [phone] Rhys Humphrey MD [address] [place] [address] [place] [address] 12/27/2023 11:00 AM EDT Office Visit Cardiology [address] [place] [address] Mi Neil PA-C [address] [place] [address] 03/18/2024 9:00 AM EDT Nurse Only Ancillary [address] [place] [address] [place], Nurse [facility] [address] [place] [address] [place] [address] Scheduled Procedures Name Priority Associated Diagnoses Date/Ti [...] D LEVEL ONCE IN A LIFETIME-USE SMARTSET# 61863 Completed 06/29/2020, 03/16/2015 Pneumococcal Vaccine: 65+ Years [...] on File Type Date Recorded Patient Supervisor Lace Tearing Expl anation POLST 10/15/2019 3:17 PM POLST POLST 03/05/2019 POLST FORM Advance Directives and Living Will 01/27/2013 LIVING WILL Advance Directives and Living Will 01/27/2013 LIVING WILL Power of Vision Care Associate 01/27/2013 POWER OF A TTORNEY Power of Vision Care Associate 01/27/2013 POWER OF A TTORNEY Healthcare Agents on File Name Relationship Healthcare Agent Relationship Communication Cydney Benito Other - (no specific identity) Second Alternate Health Care Agent Anyi More Adult Child Health Care Roberth r of Vision Care Associate Care Teams Park Interpretive Ranger Relationship Specialty Start Date End Date Rhys Humphrey MD [address] [place] [address] [place] [address] PCP - General Family Medicine 06/09/21 documented as of this encounter
--- OUTSIDE RECORDS SUMMARY | 2023-08-14 23:21 | External Medical Summary | Summary of Care ---
Author Name Unknown Organization [facility] Address [address] [place] [address] Phone [phone] Care Team Providers Care Cadet Deck Name Role Phone Rhys Humphrey MD Primary Care Provide r Reason for Visit * Reason Onset Date Comments [facility]: Maintenance 07/24/2023 Encounter Details Date Type Department Care Team (Late st Contact Info) Description 07/24/2023 Telephone [facility], [facility] [address] [place] [address] [facility], Nurse [facility] [address] [place] [address] [facility]: Maintenance Allergies Active Allergy Reactions Criticality Noted Date Comments Adhesive Tape Other (Please comment),Hives High 09/29/2008 Caused welts Dextromethorphan-Gu aifenesin Neuro complications (Please comment) Medium 12/23/2021 Feels lightheaded/"foggy" documented as of this encounter (statuses as of 07/25/2023) Medications Medication Sig Dispensed Refills Start Date [...] before bedtime. 50 Cap 0 01/18/2021 Active Ootdrxw-Zhxrzztpw-En nc 333-133-5 MG Oral Tablet Take 1 Tablet by mouth daily. 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),COPD, group D, by GOLD 2017 classification ([facility]) Inhale by mouth 1 Puff [...] COPD, group D, by GOLD 2017 classification ([facility]) Inhale 3 mL via nebulizer [...] as of this encounter (statuses as of 07/25/2023) Active Problems Problem Noted Date Diagnosed Date [...] as of this encounter (statuses as of 07/25/2023) Resolved Problems Problem Noted Date Diagnosed Date [...] as of this encounter (statuses as of 07/25/2023) Immunizations Name Administration Dates Next Due COVID-19 mRNA, LNP-s, No Pre serve, 2-Dose Series ([employer]) 07/11/2021,11/14/2020,10/24/2020 Covid-19, Mrna, Lnp-s, Pf, B ivalent, 30 Mcg, IM, 12 yrs and above ([employer]) 07/21/2022 Pneumococcal Conjugate Vacc, 13 Valent (Prevnar) 03/16/2015 Pneumococcal Conjugate Vacci ne, 20-valent ([id number]) 07/21/2022 Pneumococcal Polysaccharide PPV23 (Pneumovax) 03/05/2019,07/18/2007 SEASONAL [...] Telephone Encounter - Denise Pittman LPN - 07/25/2023 9:04 AM EDT Noted * Telephone Encounter - Isaac Parker PA-C - 07/24/2023 6:46 PM EDT Continue to monitor. * Telephone Encounter - Denise Pittmna LPN - 07/24/2023 10:14 AM EDT Images from the original note were not included. [facility] Remote Patient Monitoring Able to contact patient: Trigger type: Abnormal reading(s): AMC (Advanced Monitored Caregiving): Blood Pressure Cuff: Blood pressure per cuff: 96/44 Trigger priority per AMC: moderate Patient takes medication to control blood pressure: Yes, Losartan potassium 50mg daily. Last dose taken yesterday didn't take her am medications yet . Symptom review: None Diet Reviewed: N/A Fluid Intake Reviewed: N/A Self-Management Plan Reviewed: Red Flags: swelling in legs feet, coughing up thick yellow green thick mucous more oxygen at night Risk assignment recommendation: Moderate risk findings (check as applicable): [x] Moderate trigger priority on AMC [] Confirmed tympanic equivalent temperature 100.4-101.9 F onehour post administration of antipyretic [x] Weight gain of 2.1-4.9 lbs over 1-2 days [] Confirmed new sustained resting HR greater than 105WITHOUT symptoms [] Weight gain of greater than [...] symptoms High risk findings (check as applicable): [] High trigger priority on AMC [] Confirmed tympanic equivalent temperature greater than or equal to 102 F on hour post administration of [...] WITH symptoms Additional risk selection justification: Spoke to patient did not take her BP medication yet just ate her breakfast Denies any dizziness lightheadedness, vision changes chest pain or palpitations Will route to [facility] [place] team for any recommendations Overall risk and identified plan: Moderate risk: Route to RNCM (Registered Nurse Museum Curator) and Advance Practitioner Route to [facility] (Remote Medical Coordinator) documented in this encounter Plan of Treatment Upcoming Encounters Date Type Department Care Team (Latest Contact Info) Description 07/25/2023 2:30 PM EDT Scheduled Telephone [facility], [facility] [address] [place] [address] [facility] Nurse Triage [address] [place] [address] 08/06/2023 12:00 PM EST Scheduled Telephone [facility] [place], [facility] [address] [place] [address] [facility] Nurse Triage [address] [place] [address] 08/10/2023 11:15 AM EST Hospital Encounter [facility]O [facility], Endoscopy Room [facility] [address] [place] [phone] Sangeetha Song DO [address] [place] [address] 08/10/2023 11:15 AM EST - 08/10/2023 11:45 AM EST Surgery ENDO [facility], Endoscopy Room [facility] [address] [place] [phone] Sangeetha Song DO [address] [place] [address] ESOPHAGOGASTRODUODENOSCOPY (EGD), FLEXIBLE, TRANSORAL, DIAGNOSTIC 09/17/2023 9:40 AM EST Office Visit Dermatology [address] [place] [address] Marycruz Almazan PA-C [address] [place] [address] [place] [address] 10/03/2023 10:30 AM EST Office Visit Sleep Disorders [facility] [address] [place] [phone] Sosa Freeman CRNP [address] [place] [address] 10/16/2023 11:30 AM EST Office Visit Gastroenterology , [facility] [address] [place] [address] Lizzette Silva CRNP [address] [place] [address] 12/10/2023 9:20 AM EDT Office Visit Family Medicine [address] [place] [phone] Rhys Humphrey MD [address] [place] [address] [place] [address] 12/27/2023 11:00 AM EDT Office Visit Cardiology [address] [place] [address] Mi Neil PA-C [address] [place] [address] 03/18/2024 9:00 AM EDT Nurse Only Ancillary Zara Schofield [address] [place] [address] [facility], Nurse [address] [place] [address] Scheduled Procedures Name Priority Associated Diagnoses Date/Ti [...] D LEVEL ONCE IN A LIFETIME-USE SMARTSET# 47563 Completed 06/29/2020, 03/16/2015 Pneumococcal Vaccine: 65+ Years [...] Documents on File Type Date Recorded Patient Assistant Basketball Coach Expl anation POLST 10/15/2019 3:17 PM POLST POLST 03/05/2019 POLST FORM Advance Directives and Living Will 01/27/2013 LIVING WILL Advance Directives and Living Will 01/27/2013 LIVING WILL Power of Electrical And Instrumentation Manager 01/27/2013 POWER OF A TTORNEY Power of Electrical And Instrumentation Manager 01/27/2013 POWER OF A TTORNEY Healthcare Agents on File Name Relationship Healthcare Agent Relationship Communication Cydney Benito Other - (no specific identity) Second Alternate Health Care Agent Anyi More Adult Child Health Care Roberth r of Electrical And Instrumentation Manager Care Teams Cadet Deck Relationship Specialty Start Date End Date Rhys Humphrey MD [address] [place] [address] [place] [address] PCP - General Family Medicine 06/09/21 documented as of this encounter
--- OUTSIDE RECORDS SUMMARY | 2023-08-14 23:21 | External Medical Summary | Summary of Care ---
Author Name Unknown Organization [facility] Address [address] [place] [address] Phone [phone] Care Team Providers Care Passenger Agent Name Role Phone Rhys Humphrey MD Primary Care Provide r Reason for Visit * Reason Onset Date Comments [facility]: Maintenance 07/24/2023 Encounter Details Date Type Department Care Team (Late st Contact Info) Description 07/24/2023 Telephone [facility], [facility] [address] [place] [address] [facility], Nurse [facility] [address] [place] [address] [facility]: Maintenance Allergies Active Allergy Reactions Criticality Noted Date Comments Adhesive Tape Other (Please comment),Hives High 09/29/2008 Caused welts Dextromethorphan-Gu aifenesin Neuro complications (Please comment) Medium 12/23/2021 Feels lightheaded/"foggy" documented as of this encounter (statuses as of 07/24/2023) Medications Medication Sig Dispensed Refills Start Date [...] before bedtime. 50 Cap 0 01/18/2021 Active Wzjnrhu-Nyhhjrgvg-Fj nc 333-133-5 MG Oral Tablet Take 1 Tablet by mouth daily. 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),COPD, group D, by GOLD 2017 classification ([facility]) Inhale by mouth 1 Puff in [...] COPD, group D, by GOLD 2017 classification ([facility]) Inhale 3 mL via nebulizer every [...] as of this encounter (statuses as of 07/24/2023) Active Problems Problem Noted Date Diagnosed Date [...] as of this encounter (statuses as of 07/24/2023) Resolved Problems Problem Noted Date Diagnosed Date [...] as of this encounter (statuses as of 07/24/2023) Immunizations Name Administration Dates Next Due COVID-19 mRNA, LNP-s, No Pre serve, 2-Dose Series ([employer]) 07/11/2021,11/14/2020,10/24/2020 Covid-19, Mrna, Lnp-s, Pf, B ivalent, 30 Mcg, IM, 12 yrs and above ([employer]) 07/21/2022 Pneumococcal Conjugate Vacc, 13 Valent (Prevnar) 03/16/2015 Pneumococcal Conjugate Vacci ne, 20-valent ([id number]) 07/21/2022 Pneumococcal Polysaccharide PPV23 (Pneumovax) 03/05/2019,07/18/2007 SEASONAL [...] encounter Miscellaneous Notes * Telephone Encounter - Isaac Parker PA-C - 07/24/2023 6:46 PM EDT Continue to monitor. * Telephone Encounter - Deinse Pittman LPN - 07/24/2023 10:14 AM EDT Images [...] chest pain or palpitations Will route to [facility] care team for any recommendations Overall risk and identified plan: Moderate risk: Route to RNCM (Registered Nurse Fire Truck Driver) and Advance Practitioner Route to [facility] (Remote Medical Coordinator) documented in this encounter Plan of Treatment Upcoming Encounters Date Type Department Care Team (Latest Contact Info) Description 07/25/2023 2:30 PM EDT Scheduled Telephone [facility], [facility] [address] [place] [address] [facility] Nurse Triage [address] [place] [address] 08/06/2023 12:00 PM EST Scheduled Telephone [facility], [facility] [address] [place] [address] [facility] Nurse Triage [address] [place] [address] 08/10/2023 11:15 AM EST Hospital Encounter ENDO [facility], Endoscopy Room [facility] [address] [place] [phone] Sangeetha Song DO [address] [place] [address] 08/10/2023 11:15 AM EST - 08/10/2023 11:45 AM EST Surgery ENDO [facility], Endoscopy Room [facility] [address] [place] [phone] Sangeetha Song DO [address] [place] [address] ESOPHAGOGASTRODUODENOSCOPY (EGD), FLEXIBLE, TRANSORAL, DIAGNOSTIC 09/17/2023 9:40 AM EST Office Visit Dermatology [address] [place] [address] Marycruz Almazan PA-C [address] [place] [address] [place] [address] 10/03/2023 10:30 AM EST Office Visit Sleep Disorders Ctr [facility] [address] [place] [address] Sosa Freeman CRNP [address] [place] [address] 10/16/2023 11:30 AM EST Office Visit Gastroenterology , [facility] [address] [place] [address] Lizzette Silva CRNP [address] [place] [address] 12/10/2023 9:20 AM EDT Office Visit Family Medicine [address] [place] [phone] Rhys Humphrey MD [address] [place] [address] [place] [address] 12/27/2023 11:00 AM EDT Office Visit Cardiology [address] [place] [address] Mi Neil PA-C [address] [place] [address] 03/18/2024 9:00 AM EDT Nurse Only Ancillary [address] [place] [address] [place], Nurse Annual Wellness [address] [place] [address] [place] [address] Scheduled Procedures Name Priority Associated Diagnoses Date/Ti [...] D LEVEL ONCE IN A LIFETIME-USE SMARTSET# [id number] Completed 06/29/2020, 03/16/2015 Pneumococcal Vaccine: 65+ Years [...] Documents on File Type Date Recorded Patient Town Manager Expl anation POLST 10/15/2019 3:17 PM POLST POLST 03/05/2019 POLST FORM Advance Directives and Living Will 01/27/2013 LIVING WILL Advance Directives and Living Will 01/27/2013 LIVING WILL Power of Brim Molder 01/27/2013 POWER OF A TTORNEY Power of Brim Molder 01/27/2013 POWER OF A TTORNEY Healthcare Agents on File Name Relationship Healthcare Agent Relationship Communication Cydney Benito Other - (no specific identity) Second Alternate Health Care Agent Anyi More Adult Child Health Care Roberth r of Brim Molder Care Teams Passenger Agent Relationship Specialty Start Date End Date Rhys Humphrey MD [address] [place] [address] [place] [address] PCP - General Family Medicine 06/09/21 documented as of this encounter
--- OUTSIDE RECORDS SUMMARY | 2023-08-14 23:21 | External Medical Summary | Summary of Care ---
Author Name Unknown Organization [facility] Address [address] [place] [address] Phone [phone] Care Team Providers Care Blade Boner Name Role Phone Rhys Humphrey MD Primary Care Provide r Encounter Details Date Type Department Care Team (Late st Contact Info) Description 07/23/2023 Telephone Pulmonary Medicine, [facility] [address] [place] [address] Prosper Bales MD [address] [place] [address] Allergies Active Allergy Reactions Criticality Noted Date Comments Adhesive Tape Other (Please comment),Hives High 09/29/2008 Caused welts Dextromethorphan-Gu aifenesin Neuro complications (Please comment) Medium 12/23/2021 Feels lightheaded/"foggy" documented as of this encounter (statuses as of 07/28/2023) Medications Medication Sig Dispensed Refills Start Date [...] Nebulizers (NEBULIZER COMPRESSOR) MISCIndications:COPD , moderate ([facility]) Inhale via nebulizer. Use as directed. 1 Each 1 11/17/2019 Active Iron 325 (65 Fe) MG Oral Tablet Take 1 Tablet by mouth daily. 0 Active Cranberry 500 MG Oral Capsule Take 1 Capsule by mouth in the morning and 1 Capsule before bedtime. 50 Cap 0 01/18/2021 Active Qvstkrv-Hgskoijjh-Fi nc 333-133-5 MG Oral Tablet Take 1 Tablet by mouth daily. 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[facility]),COPD, group D, by GOLD 2017 classification ([facility]) Inhale by mouth 1 Puff [...] Base) MCG/ACT Inhalation Aerosol SolutionIndications: COPD, moderate ([facility]) Inhale 2 Puffs by mouth every [...] group D, by GOLD 2017 classification ([facility]) Inhale 3 mL via nebulizer [...] (Lasix)Indications:C hronic diastolic congestive heart failure ([facility]) One tablet daily with an [...] as of this encounter (statuses as of 07/28/2023) Active Problems Problem Noted Date Diagnosed Date [...] as of this encounter (statuses as of 07/28/2023) Resolved Problems Problem Noted Date Diagnosed Date [...] as of this encounter (statuses as of 07/28/2023) Immunizations Name Administration Dates Next Due COVID-19 mRNA, LNP-s, No Pre serve, 2-Dose Series ([employer] 07/11/2021,11/14/2020,10/24/2020 Covid-19, Mrna, Lnp-s, Pf, B ivalent, 30 Mcg, IM, 12 yrs and above ([employer] 07/21/2022 Pneumococcal Conjugate Vacc, 13 Valent (Prevnar) 03/16/2015 Pneumococcal Conjugate Vacci ne, 20-valent ([id number]) 07/21/2022 Pneumococcal Polysaccharide PPV23 (Pneumovax) 03/05/2019,07/18/2007 SEASONAL [...] 08/02/2023 for patient to be done in [place]. Waiting on instructions from Dr. Jim Fernandez please advise if you would like teresita or not. Thank you * Telephone Encounter - Elliott Hoang OSA - 07/23/2023 11:33 AM EDT Hi All, Amairani sent a message to me as well. Let me know if you need to source at [facility]. Thanks! * Telephone Encounter - Sangeetha Carter [...] PM EST Scheduled Telephone [facility], [facility] [address] [place] [address] [facility] Nurse Triage [address] [place] [address] 08/10/2023 11:15 AM EST Hospital Encounter ENDO [facility], Endoscopy Room [facility] [address] [place] [phone] Sangeetha Song, DO [address] [place] [address] 08/10/2023 11:15 AM EST - 08/10/2023 11:45 AM EST Surgery ENDO [facility], Endoscopy Room [facility] [address] [place] [phone] Sangeetha Song, DO [address] [place] [address] ESOPHAGOGASTRODUODENOSCOPY (EGD), FLEXIBLE, TRANSORAL, DIAGNOSTIC 09/17/2023 9:40 AM EST Office Visit Dermatology [address] [place] [address] Marycruz Almazan PA-C [address] [place] [address] [place] [address] 10/03/2023 10:30 AM EST [facility] [place] [phone] Sosa Freeman CRNP [address] [place] [address] 10/16/2023 11:30 AM EST Office Visit Gastroenterology , [facility] [address] [place] [address] Lizzette Silva CRNP [address] [place] [address] 12/10/2023 9:20 AM EDT Office Visit Family Medicine [address] [place] [phone] Rhys Humphrey MD [address] [place] [address] [place] [address] 12/27/2023 11:00 AM EDT Office Visit Cardiology [address] [place] [address] Mi Neil, CECI [address] [place] [address] 03/18/2024 9:00 AM EDT Nurse Only Ancillary [address] [place] [address] Stanton, Nurse [address] [place] [address] Scheduled Procedures Name Priority Associated Diagnoses Date/Ti [...] D LEVEL ONCE IN A LIFETIME-USE SMARTSET# [id number] Completed 06/29/2020, 03/16/2015 Pneumococcal Vaccine: 65+ Years [...] Documents on File Type Date Recorded 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 POLST 10/15/2019 3:17 PM POLST POLST 03/05/2019 POLST FORM Advance Directives and Living Will 01/27/2013 LIVING WILL Advance Directives and Living Will 01/27/2013 LIVING WILL Power of Mail Handler Equipment Operator 01/27/2013 POWER OF A TTORNEY Power of Mail Handler Equipment Operator 01/27/2013 POWER OF A TTORNEY Healthcare Agents on File Name Relationship Healthcare Agent Relationship Communication Cydney Benito Other - (no specific identity) Second Alternate Health Care Agent Ayni More Adult Child Health Care Roberth r of Mail Handler Equipment Operator Care Teams Blade Boner Relationship Specialty Start Date End Date Rhys Humphrey MD [address] [place] [address] [place] [address] PCP - General Family Medicine 06/09/21 documented as of this encounter
--- OUTSIDE RECORDS SUMMARY | 2023-08-14 23:21 | External Medical Summary | Summary of Care ---
Author Name Unknown Organization [facility] Address [address] [place] [address] Phone [phone] Care Team Providers Care Sewing Machine Operator Zipper Name Role Phone Rhys Humphrey MD Primary Care Provide r Reason for Visit * Reason Onset Date Comments [facility]: Maintenance 07/25/2023 Encounter Details Date Type Department Care Team (Late st Contact Info) Description 07/25/2023 2:30 PM EDT Scheduled Telephone [facility], [facility] 132 [facility] [place] [address] [facility] Nurse Triage 132 [facility] [place] [address] Allergies Active Allergy Reactions Criticality Noted Date [...] before bedtime. 50 Cap 0 01/18/2021 Active Emgxtxi-Ysaahzgsl-Ah nc 333-133-5 MG Oral Tablet Take 1 Tablet by mouth daily. 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),COPD, group D, by GOLD 2017 classification ([facility]) Inhale by mouth 1 Puff [...] COPD, group D, by GOLD 2017 classification ([facility]) Inhale 3 mL via nebulizer [...] mRNA, LNP-s, No Pre serve, 2-Dose Series (DTT) 07/11/2021,11/14/2020,10/24/2020 Covid-19, Mrna, Lnp-s, Pf, B ivalent, 30 Mcg, IM, 12 yrs and above (DTT) 07/21/2022 Pneumococcal Conjugate Vacc, 13 Valent (Prevnar) 03/16/2015 Pneumococcal Conjugate Vacci ne, 20-valent ([id number]) 07/21/2022 Pneumococcal Polysaccharide PPV23 (Pneumovax) 03/05/2019,07/18/2007 SEASONAL [...] Telephone Encounter - Estee Verde RN - 07/25/2023 3:20 PM EDT follow up post pulmonary appt and labs [facility] Substance Addiction Coordinator Telephone call Date: 07/25/2023 Time: 3:47 PM Name: Keisha Linares : 1940 Phone call to Keisha to follow up post pulmonary appt and labs had Pulmonary telemed on Sunday, and is scheduled for a Bronch and EBUS, will have to hold Plavix for atleast 5 days before the procedure. Is scheduled for 08/10/23. Labs reviewed by physician.Will follow up on 08/06/23 Estee Verde RN 07/25/2023 documented in this encounter Plan of Treatment Upcoming Encounters Date Type Department Care Team (Latest Contact Info) Description 08/06/2023 12:00 PM EST Scheduled Telephone [facility], [facility] [address] [place] [address] [facility] Nurse Triage [address] [place] [address] 08/10/2023 11:15 AM EST Hospital Encounter ENDO [facility], Endoscopy Room [facility] [address] [place] [phone] Sangeetha Song DO [address] [place] [address] 08/10/2023 11:15 AM EST - 08/10/2023 11:45 AM EST Surgery ENDO [facility], Endoscopy Room [facility] [address] [place] [phone] Sangeetha Song DO [address] [place] [address] ESOPHAGOGASTRODUODENOSCOPY (EGD), FLEXIBLE, TRANSORAL, DIAGNOSTIC 09/17/2023 9:40 AM EST Office Visit Dermatology [address] [place] [address] Marycruz Almazan PA-C [address] [place] [address] [place] [address] 10/03/2023 10:30 AM EST Office Visit Sleep Disorders Ctr [facility] [address] [place] [phone] Sosa Freeman CRNP [address] [place] [address] 10/16/2023 11:30 AM EST Office Visit Gastroenterology , [facility] [address] [place] [address] Lizzette Silva CRNP [address] [place] [address] 12/10/2023 9:20 AM EDT Office Visit Family Medicine [address] [place] [phone] Rhys Humphrey MD [address] [place] [address] [place] [address] 12/27/2023 11:00 AM EDT Office Visit Cardiology [address] [place] [address] Mi Neil PA-C [address] [place] [address] 03/18/2024 9:00 AM EDT Nurse Only Ancillary [address] [place] [address] [place], Nurse Annual [address] [place] [address] Scheduled Procedures Name Priority Associated Diagnoses Date/Ti [...] D LEVEL ONCE IN A LIFETIME-USE SMARTSET# [id number] Completed 06/29/2020, 03/16/2015 Pneumococcal Vaccine: 65+ Years [...] Documents on File Type Date Recorded 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 POLST 10/15/2019 3:17 PM POLST POLST 03/05/2019 POLST FORM Advance Directives and Living Will 01/27/2013 LIVING WILL Advance Directives and Living Will 01/27/2013 LIVING WILL Power of Wirer 01/27/2013 POWER OF A TTORNEY Power of Wirer 01/27/2013 POWER OF A TTORNEY Healthcare Agents on File Name Relationship Healthcare Agent Relationship Communication Cydney Benito Other - (no specific identity) Second Alternate Health Care Agent Anyi More Adult Child Health Care Roberth r of Wirer Care Teams Sewing Machine Operator Zipper Relationship Specialty Start Date End Date Rhys Humphrey MD [address] [place] [address] [place] [phone] PCP - General Family Medicine 06/09/21 documented as of this encounter
--- OUTSIDE RECORDS SUMMARY | 2023-08-14 23:22 | External Medical Summary | Summary of Care ---
Author Name Unknown Organization [facility] Address [address] [place] [address] Phone [phone] Care Team Providers Care Sheet Rock Hanger Name Role Phone Rhys Humphrey MD Primary Care Provide r Reason for Visit * Reason Onset Date Comments [facility]: Maintenance 07/21/2023 Encounter Details Date Type Department Care Team Description 07/21/2023 Scheduled Telephone [facility], [facility] [address] [place] [address] [facility], Nurse [facility] [address] [place] [address] Allergies Active Allergy Reactions Severity Noted Date Comments Adhesive Tape Other (Please comment),Hives High 09/29/2008 Caused welts Dextromethorphan-Gua ifenesin Neuro complications (Please comment) Medium 12/23/2021 Feels lightheaded/"foggy" documented as of this encounter (statuses as of 07/21/2023) Medications Medication Sig Dispensed Refills Start Date End Date Status FISH OIL 1000 MG PO CAPS Take 1 Capsule by mouth in the morning. 0 Active Multiple Vitamins-Minerals (CENTRUM SILVER 50+WOMEN) TABS Take 1 Tab by mouth daily. 0 Active oxygen GASIndications:ISELA on CPAP 2.5 LPM bled through cpap. 1 Each 0 08/22/2019 Active Additional Information Patient not taking.Reported on 06/20/2023 DIURETIC TITRATION PLAN If no improvement on [...] before bedtime. 50 Cap 0 01/18/2021 Active Zchwxuh-Qwohjwdla-Bk nc 333-133-5 MG Oral Tablet Take 1 Tablet by mouth daily. 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),COPD, group D, by GOLD 2017 classification ([facility]) Inhale by mouth 1 Puff [...] COPD, group D, by GOLD 2017 classification ([facility]) Inhale 3 mL via nebulizer [...] AT BEDTIME 30 Tablet 5 06/11/2023 Active Additional Information Patient not taking.Reported on 06/20/2023 Calmoseptine 0.44-20.6 % External Ointment (Menthol-Zinc Oxide) [...] as of this encounter (statuses as of 07/21/2023) Active Problems Problem Noted Date Acute serous otitis media 01/01/2023 Nontoxic multinodular goiter 10/23/2022 RLS (restless legs syndrome) 07/07/2021 Peripheral polyneuropathy 07/07/2021 Iron deficiency anemia 06/14/2021 Last Assessment & Plan: Last hgb 11.8 09/26/22 -continue Fe supplement -repeat labs next month Left carotid stenosis 03/16/2021 Last Assessment & Plan: Continue plavix, atorvastatin S/P carotid endarterectomy 03/16/2021 Overview: RIGHT 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 -continue pantoprazole COPD, group D, by GOLD 2017 classificati on 09/08/2019 Overview: Per COPD GOLD Classification Last Assessment [...] imaging of lung 01/08/2019 Hypertensive heart disease with chronic diastolic congestive heart failure 09/27/2018 Last [...] oxygen at night Chronic diastolic congestive heart failu re 06/24/2018 Other specified peripheral vascular dise ases 06/24/2018 History of TIA (transient ischemic attac k) 06/24/2018 Last Assessment & Plan: Stable -continue Plavix, aspirin, atorvastatin History of left hip replacement 06/24/20 18 Hx of nonmelanoma skin cancer 08/21/2017 Overview: basal cell carcinoma (R central chest) Persistent insomnia 05/31/2017 Iron deficiency 03/27/2017 Osteopenia of neck of femur 04/05/2015 Lichen sclerosus et atrophicus 4 Overview: Back/shoulder/vagina Last Assessment & Plan: Followed by derm. She has concerns about area in vaginal. Has upcoming derm appt and advised to discuss at that time. Centrilobular emphysema 06/01/2011 Nonrheumatic aortic valve stenosis 03/31 Overview: Mod-severe per ANDREA 01/31/11 Last Assessment & Plan: Stable Following with cards Dyslipidemia, goal LDL below 70 01/31/20 Last Assessment & Plan: Feeling better since stopping zetia. 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 Primary localized osteoarthrosis of pelv ic region or thigh 09/11/2008 ADVANCE DIRECTIVE INFORMATION 11/20/2006 Overview: No, Advance Directive brochure given to patient. History of tobacco use 01/05/2005 Other allergic rhinitis Overview: ICD-10 update of inactive term ISELA (obstructive sleep apnea) Last Assessment & Plan: Needs new CPAP machine. Order placed documented as of this encounter (statuses as of 07/21/2023) Resolved Problems Problem Noted Date Resolved Date Mild aortic valve stenosis 04/28/202209/01 Last Assessment & Plan: Followed by cardiology Occlusion and stenosis of unspecified carotid ar marsha 10/02/2019 03/16/2021 COPD, group B, by GOLD 2017 classification 03/1009/11/2019 Overview: Per COPD GOLD Classification Prediabetes 03/10/2019 07/14/2021 Overview: Per Prediabetes protocol Moderate chronic obstructive pulmonary disease 0 03/05/2019 05/17/2019 Hypertensive heart disease w ith chronic diastolic congestive heart failure 03/05/2019 05/28/2019 Hyperglycemia 03/05/2019 03/16/2021 Follicular lymphoma grade I of intrathoracic lym ph nodes 02/19/2019 12/15/2019 Bronchitis, complicated 01/08/2019 05/17/20 19 Major depressive disorder in remission 8 02/26/2019 High risk for fracture due to osteoporosis by DE XA scan 12/07/2017 06/25/2018 Major depressive disorder, single episode, mild 12/07/2017 06/24/2018 GERD (gastroesophageal reflux disease) 5 10/06/2019 Mesenteric lymphadenopathy 09/19/201312/07 RICHARD (dyspnea on exertion) 01/07/20132018 Obstructive sleep apnea 11/22/2011 12/08/19 18 Overview: 11/22/11 -- auto CPAP 5-15 01/15/14 oxygen at 2 LPM with CPAP AHP HYPOXEMIA, NOCTURNAL 06/01/2011 12/07/2017 Overview: 05/17/11 Noct ox RA -- low 73%, basal 90%, <89% 38 mins, NURIA 10 Moderate obstructive and restrictive lung diseas e 06/01/2011 03/12/2019 Overview: PFT: 2008 Carotid stenosis, symptomatic w/o infarct 201006/01/2011 Aortic valve disorder 01/30/2011 11/02/2015 Carotid stenosis, non-symptomatic 01/30/2011 03/31/2011 Asthma with severity to be determined 03/28/2010 01/12/2011 Overview: Per Asthma Taxonomy ICD-10 update of inactive term Dyslipidemia, goal to be determined 09/16/2009 01/12/2011 Overview: Per Lipid Taxonomy. Hip joint replacement status 09/11/2008 HTN, goal to be determined 03/19/200808/23 Overview: Modified per HTN protocol #16. Asthma, allergic 01/12/2005 03/28/2010 PURE HYPERCHOLESTEROLEM 04/16/2002 09/16/20 09 Overview: Per Lipid Taxonomy. 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 Cancer Staging:Clinical:Stage III- Signed by Martínez Lopes MD on 11/16/2014 Pathologic: Unsigned TIA (transient ischemic attack) 06/24/2018 documented as of this encounter (statuses as of 07/21/2023) Immunizations Name Administration Dates Next Due COVID-19 mRNA, LNP-s, No Pre serve, 2-Dose Series ([employer]) 07/11/2021,11/14/2020,10/24/2020 Covid-19, Mrna, Lnp-s, Pf, B ivalent, 30 Mcg, IM, 12 yrs and above ([employer]) 07/21/2022 Pneumococcal Conjugate Vacc, 13 Valent (Prevnar) 03/16/2015 Pneumococcal Conjugate Vacci ne, 20-valent ([id number]) 07/21/2022 Pneumococcal Polysaccharide PPV23 (Pneumovax) 03/05/2019,07/18/2007 SEASONAL [...] drink = 0.6 oz pur e alcohol) Food Insecurity Answer Date Recorded Within the past 12 months, y ou worried that your food would run out before you got money to buy more. Never true 03/16/2023 Within the past 12 months, t he food you bought just didn't last and you didn't have money to get more. Never true 03/16/2023 Sex Assigned at Date Recorded Female 03/16/2023 10:03 AM EDT Job Start Date Occupation Industry Not on file Not on file Not on file documented as of this encounter Miscellaneous Notes * Telephone Encounter - Lexy Tucker RN - 07/21/2023 9:51 AM EDT Images from the original note were not included. [facility] Telephonic Nurse Follow-Up Call [facility] Subprogram: Focused Care Management (3-9 months) Follow Up Call Type: Weekend Call Acute issue requiring follow-up call: Remote Patient Monitoring Trigger Objective: 07/16/2023 1:32 PM 07/03/2023 2:34 PM 06/21/2023 2:32 PM 06/20/2023 8:49 AM 06/13/2023 10:44 AM VITALS ACROSS ENCOUNTERS BP 130/52 147/62 118/62 199/80 128/52 Pulse 70 60 76 80 Weight 70.8 kg 71 kg 70.8 kg 70 kg BMI 26.76 26.76 BMI 26.78 kg/m2 26.88 kg/m2 26.78 kg/m2 26.5 [...] EJECTION FRACTION 61 07/12/2023 Remote Patient Monitoring: Oxygen Needs: NO supplemental oxygen needs identified DME Needs: NO DME needs identified Medications: No medication or dose adjustments made during acute episode Subjective: Condition Status: No change in symptoms Current Concerns: Pt feels fine, no symptoms. HR always up in AM until she takes her medications Aware to call [facility] if any new symptoms Disposition: Issue resolved. All appropriate follow up scheduled. Future Visits Scheduled: Future Appointments-next 60 days Date/Time Provider Specialty Dept Phone 07/23/2023 9:20 AM (Arrive by 9:05 AM) Telemed Milo Galeana; Prosper Bales MD Pulmonary [phone] 07/25/2023 2:[address] [facility] Nurse Triage [place] [facility] [phone] 08/06/2023 12:[address] [facility] Nurse Triage [place] [facility] [phone] 09/17/2023 9:40 AM (Arrive by 9:25 AM) Marycruz Almazan PA-C Dermatology [phone] 10/03/2023 10:30 AM (Arrive by 10:15 AM) PITER Gordillo Sleep Disorders [phone] 10/16/2023 11:30 AM (Arrive by 11:15 AM) PITER Wills Gastroenterology [phone] 12/10/2023 9:20 AM (Arrive by 9:05 AM) Rhys Humphrey MD Family Medicine [phone] 12/27/2023 11:00 AM (Arrive by 10:45 AM) Mi Neil PA-C Cardiology [phone] 03/18/2024 9:00 AM Nurse [facility] Ancillary [phone] Lexy Tucker, RN documented in this encounter Plan of Treatment Upcoming Encounters Date Type Specialty Care Team Description 3 Telemedicine Pulmonary Prosper Bales MD [address] [place] [address] Cart, Telemed Pulm Gw 132 [facility] [place] [address] 3 Scheduled Telephone [facility] Nurse Triage [address] [place] [address] 3 Scheduled Telephone [facility] Nurse Triage [address] [place] [address] 3 Hospital Encounter Endoscopy Sangeetha Song, [address] [place] [address] 3 Surgery Endoscopy Sangeetha Song, [address] [place] [address] ESOPHAGOGASTRODUODENOSCOPY (EGD), FLEXIBLE, TRANSORAL, DIAGNOSTIC 3 Office Visit Dermatology Marycruz Almazan PA-C [address] [place] [address] [place] [address] 4 Office Visit Sleep Disorders Sosa Freeman CRNP [address] [place] [address] 4 Office Visit Gastroenterology Lizzette Silva CRNP [address] [place] [address] 4 Office Visit Family Medicine Rhys Humphrey MD [address] [place] [address] [place] [address] 4 Office Visit Cardiology Mi Neil PA-C [address] [place] [address] 4 Nurse Only Ancillary Stanton, Nurse Annual Wellness [address] [place] [address] [place] [address] Scheduled Procedures Name Priority Associated Diagnoses Date/Ti [...] ASSESSMENT COMPLETED IN PAST YEAR FOR COPD 07/03/2024 07/03/2023 Albumin/Creatinine Ratio 04/28/2025 04/28/2022 DTaP,Tdap,and Td Vaccines (3 - Td or Tdap) 09/17/2029 09/17/2019, 08/10/2011, 10/01/2001 Zoster Vaccines Completed 04/25/2020, 08/31, 07/22/2012 VITAMIN D LEVEL ONCE IN A LIFETIME-USE SMARTSET# [id number] Completed 06/29/2020, 03/16/2015 Pneumococcal Vaccine: 65+ Years [...] Documents on File Type Date Recorded Patient Resource Technician Expl anation POLST 10/15/2019 3:17 PM POLST POLST 03/05/2019 POLST FORM Advance Directives and Living Will 01/27/2013 LIVING WILL Advance Directives and Living Will 01/27/2013 LIVING WILL Power of Kosher Dietary Service Supervisor 01/27/2013 POWER OF A TTORNEY Power of Kosher Dietary Service Supervisor 01/27/2013 POWER OF A TTORNEY Healthcare Agents on File Name Relationship Healthcare Agent Relationship Communication Cydney Benito Other - (no specific identity) Second Alternate Health Care Agent Anyi More Adult Child Health Care Roberth r of Kosher Dietary Service Supervisor Care Teams Sheet Rock Hanger Relationship Specialty Start Date End Date Rhys Humphrey MD [address] [place] [address] [place] [address] PCP - General Family Medicine 06/09/21 documented as of this encounter
--- OUTSIDE RECORDS SUMMARY | 2023-08-14 23:22 | External Medical Summary ---
Author Name Unknown Address Unknown Organization K01:[facility] [place] [address] [facility] [address] Laboratory Report Ordering Provider Test Date Status CARLOS LEVIN 07/20/2023 08:45:45 Beatriz l Observation Date Value Abnormality Reference (Units ) Status SYNC LEUKOCYTES IN BLOOD BY AUTOMATED COUNT 07/20/2023 08:45:45 5.74 4.00-10.80 (K/uL) Final Segs 07/20/2023 08:45:45 49.9 40.0-75.0 (%) Final Lymphs % 07/20/2023 08:45:45 22.8 18.0-42.0 (%) Final Monos 07/20/2023 08:45:45 14.1 Above high normal 1.0-11.0 (%) Final Eosinophils 07/20/2023 08:45:45 11.7 Above high normal 0.0-6.0 (%) Final Basos 07/20/2023 08:45:45 1.2 0.0-2.0 (%) Final Immature Granulocyte, Percent 07/20/2023 08:45:45 0.3 0.0-2.0 (%) Final Absolute Segs 07/20/2023 08:45:45 2.86 1.80-7.70 (K/uL) Final Lymphs, absolute 07/20/2023 08:45:45 1.31 1.00-4.80 (K/ul) Final Monos, Abs 07/20/2023 08:45:45 0.81 0.00-1.10 (K/uL) Final Eos, Abs 07/20/2023 08:45:45 0.67 0.00-0.70 (K/uL) Final Basos, Abs 07/20/2023 08:45:45 0.07 0.00-0.20 (K/uL) Final Immature Granulocytes, Number 07/20/2023 08:45:45 0.02 0.00-0.20 (K/uL) Final Performing Location [facility] [place] [facility] [address] [facility] [address]
--- OUTSIDE RECORDS SUMMARY | 2023-08-14 23:22 | External Medical Summary | Summary of Care ---
Author Name Unknown Organization [facility] Address [address] [place] [address] Phone [phone] Care Team Providers Care Quality Rn Name Role Phone Rhys Humphrey MD Primary Care Provide r Reason for Visit * Reason Onset Date Comments [facility]: Maintenance 07/20/2023 Encounter Details Date Type Department Care Team Description 07/20/2023 Telephone [facility], [facility] [address] [place] [address] [facility], Nurse [facility] [address] [place] [address] [facility]: Maintenance Allergies Active Allergy Reactions Severity Noted Date Comments Adhesive Tape Other (Please comment),Hives High 09/29/2008 Caused welts Dextromethorphan-Gua ifenesin Neuro complications (Please comment) Medium 12/23/2021 Feels lightheaded/"foggy" documented as of this encounter (statuses as of 07/20/2023) Medications Medication Sig Dispensed Refills Start Date [...] before bedtime. 50 Cap 0 01/18/2021 Active Kxzqtlu-Qvwbcodnx-Mb nc 333-133-5 MG Oral Tablet Take 1 Tablet by mouth daily. 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 D, moderate (HCC),COPD, group D, by GOLD 2017 classification ([facility]) Inhale by mouth 1 Puff in the [...] COPD, group D, by GOLD 2017 classification ([facility] [...] as of this encounter (statuses as of 07/20/2023) Active Problems Problem Noted Date Acute serous [...] as of this encounter (statuses as of 07/20/2023) Resolved Problems Problem Noted Date Resolved Date [...] as of this encounter (statuses as of 07/20/2023) Immunizations Name Administration Dates Next Due COVID-19 mRNA, LNP-s, No Pre serve, 2-Dose Series ([facility]) 07/11/2021,11/14/2020,10/24/2020 Covid-19, Mrna, Lnp-s, Pf, B ivalent, 30 Mcg, IM, 12 yrs and above ([facility]) 07/21/2022 Pneumococcal Conjugate Vacc, 13 Valent (Prevnar) 03/16/2015 Pneumococcal Conjugate Vacci ne, 20-valent ([id number]) 07/21/2022 Pneumococcal Polysaccharide PPV23 (Pneumovax) 03/05/2019,07/18/2007 SEASONAL [...] Telephone Encounter - Denise Pittman LPN - 07/20/2023 8:10 AM EDT Images from the original note were not included. [facility] Remote Patient Monitoring Able to contact patient: Trigger type: Abnormal reading(s): Current Health: Pulse Rate trigger: Pulse: 105 Symptom review: None Diet Reviewed: N/A Fluid Intake Reviewed: N/A Self-Management Plan Reviewed: Red Flags: swellling legs feet, coughing up green yellow thick mucous, more oxgen at night Risk assignment recommendation: Moderate risk findings (check as applicable): [x] Moderate trigger priority on [facility] [] Confirmed tympanic equivalent temperature 100.4-101.9 F onehour post administration of antipyretic [] Weight gain of 2.1-4.9 lbs over 1-2 days [x] Confirmed new sustained resting HR greater than [...] symptoms Additional risk selection justification: Spoke to margarita she just got up and took BP didn't take her medications yet has blood work this am. Denies any chest pain or headaches will recheck it later and will call with any urgent issues Overall risk and identified plan: Moderate risk: Next day follow up call scheduled Route to RNCM (Registered Nurse High School Foreign Language Teacher) and Advance Practitioner documented in this encounter Plan of Treatment Upcoming Encounters Date Type Specialty Care Team Description 3 Scheduled Telephone [facility] [place], Nurse [place] [address] [place] [address] 3 Telemedicine Pulmonary Prosper Bales MD [address] [facility] [address] [facility], Telemed Pulm [address] [place] [address] 3 Scheduled Telephone [facility] T[facility] [address] 3 Scheduled Telephone [facility] Nurse Triage 132 [facility] [place] [address] 3 Hospital Encounter Endoscopy Sangeetha Song DO [address] [place] [address] 3 Surgery Endoscopy Sangeetha Song DO [address] [place] [address] ESOPHAGOGASTRODUODENOSCOPY (EGD), FLEXIBLE, TRANSORAL, DIAGNOSTIC 3 Office Visit Dermatology Marycruz Almazan PA-C [address] [place] [address] [place] [address] 4 Office Visit Sleep Disorders Sosa Freeman CRNP [address] [place] [address] 4 Office Visit Gastroenterology Lizzette Silva CRNP [address] [place] [address] 4 Office Visit Family Medicine Rhys Humphrey MD [address] [place] [address] [place] [address] 4 Office Visit Cardiology Mi Neil PA-C [address] [place] [address] 4 Nurse Only Ancillary [place], Nurse Annual Wellness [address] [place] [address] [place] [address] Scheduled Procedures Name Priority Associated Diagnoses Date/Ti [...] D LEVEL ONCE IN A LIFETIME-USE SMARTSET# [id number] Completed 06/29/2020, 03/16/2015 Pneumococcal Vaccine: 65+ Years [...] Documents on File Type Date Recorded Patient Contract Associate Manager Expl anation POLST 10/15/2019 3:17 PM POLST POLST 03/05/2019 POLST FORM Advance Directives and Living Will 01/27/2013 LIVING WILL Advance Directives and Living Will 01/27/2013 LIVING WILL Power of Director Private 01/27/2013 POWER OF A TTORNEY Power of Director Private 01/27/2013 POWER OF A TTORNEY Healthcare Agents on File Name Relationship Healthcare Agent Relationship Communication Cydney Benito Other - (no specific identity) Second Alternate Health Care Agent Anyi More Adult Child Health Care Roberth r of Director Private Care Teams Quality Rn Relationship Specialty Start Date End Date Rhys Humphrey MD [address] [place] [address] [place] [address] PCP - General Family Medicine 06/09/21 documented as of this encounter
--- OUTSIDE RECORDS SUMMARY | 2023-08-14 23:22 | External Medical Summary | Summary of Care ---
Author Name Unknown Organization [facility] Address [address] [place] [address] Phone [phone] Care Team Providers Care Assembler Seat Name Role Phone Rhys Humphrey MD Primary Care Provide r Encounter Details Date Type Department Care Team (Late st Contact Info) Description 07/23/2023 Telephone Pulmonary Medicine, [place] [address] [place] [address] Prosper Bales MD [address] [place] [address] Allergies Active Allergy Reactions Criticality Noted Date Comments Adhesive Tape Other (Please comment),Hives High 09/29/2008 Caused welts Dextromethorphan-Gu aifenesin Neuro complications (Please comment) Medium 12/23/2021 Feels lightheaded/"foggy" documented as of this encounter (statuses as of 07/23/2023) Medications Medication Sig Dispensed Refills Start Date [...] Active Nebulizers (NEBULIZER COMPRESSOR) MISCIndications:COPD , moderate ([facility]) Inhale via nebulizer. Use as directed. 1 Each 1 11/17/2019 Active Iron 325 (65 Fe) MG Oral Tablet Take 1 Tablet by mouth daily. 0 Active Cranberry 500 MG Oral Capsule Take 1 Capsule by mouth in the morning and 1 Capsule before bedtime. 50 Cap 0 01/18/2021 Active Knbetre-Slopesite-Sf nc 333-133-5 MG Oral Tablet Take 1 Tablet by mouth daily. 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[facility]),COPD, group D, by GOLD 2017 classification ([facility]) Inhale by mouth 1 Puff in the [...] Base) MCG/ACT Inhalation Aerosol SolutionIndications: COPD, moderate ([facility]) Inhale 2 Puffs by mouth every 4 [...] D, by GOLD 2017 classification ([facility]) Inhale 3 mL via nebulizer every 6 [...] hronic diastolic congestive heart failure ([facility]) One tablet daily with an extra tablet [...] as of this encounter (statuses as of 07/23/2023) Active Problems Problem Noted Date Diagnosed Date [...] as of this encounter (statuses as of 07/23/2023) Resolved Problems Problem Noted Date Diagnosed Date [...] as of this encounter (statuses as of 07/23/2023) Immunizations Name Administration Dates Next Due COVID-19 mRNA, LNP-s, No Pre serve, 2-Dose Series ([employer]) 07/11/2021,11/14/2020,10/24/2020 Covid-19, Mrna, Lnp-s, Pf, B ivalent, 30 Mcg, IM, 12 yrs and above ([employer]) 07/21/2022 Pneumococcal Conjugate Vacc, 13 Valent (Prevnar) 03/16/2015 Pneumococcal Conjugate Vacci ne, 20-valent ([id number]) 07/21/2022 Pneumococcal Polysaccharide PPV23 (Pneumovax) 03/05/2019,07/18/2007 SEASONAL [...] encounter Miscellaneous Notes * Telephone Encounter - ISELA Ballesteros - 07/23/2023 11:33 AM EDT Hi All, Amairani sent a message to me as well. Let me know if you need to source at [facility] [place]. Thanks! * Telephone Encounter - ISELA Espinosa - 07/23/2023 10:[address] Fernandez, [...] PM EDT Scheduled Telephone [facility], [facility] [address] [place] [address] [facility] Nurse Triage [address] [place] [address] 08/06/2023 12:00 PM EST Scheduled Telephone [facility], [facility] [address] [place] [address] [facility] Nurse Triage [address] [place] [address] 08/10/2023 11:15 AM EST Hospital Encounter ENDO [facility], Endoscopy Room [facility] [address] [place] [phone] Sangeetha Song DO [address] [place] [address] 08/10/2023 11:15 AM EST - 08/10/2023 11:45 AM EST Surgery ENDO [facility], Endoscopy Room [facility] [address] [place] [address] Sangeetha Song DO [address] [place] [address] ESOPHAGOGASTRODUODENOSCOPY (EGD), FLEXIBLE, TRANSORAL, DIAGNOSTIC 09/17/2023 9:40 AM EST Office Visit Dermatology [address] [place] [address] Marycruz Almazan PA-C [address] [place] [address] [place] [address] 10/03/2023 10:30 AM EST Office Visit Sleep Disorders Ctr [facility] [address] [place] [phone] Sosa Freeman CRNP [address] [place] [address] 10/16/2023 11:30 AM EST Office Visit Gastroenterology , [facility] [address] [place] [address] Lizzette Silva CRNP [address] [place] [address] 12/10/2023 9:20 AM EDT Office Visit Family Medicine [address] [place] [address] Rhys Humphrey MD [address] [place] [address] [place] [address] 12/27/2023 11:00 AM EDT Office Visit Cardiology [address] [place] [address] Mi Neil PA-C [address] [place] [address] 03/18/2024 9:00 AM EDT Nurse Only Ancillary Zara Schofield[address] [place] [address] [place], Nurse [address] [place] [address] Scheduled Procedures Name Priority Associated Diagnoses Date/Ti [...] COMPLETED IN PAST YEAR FOR COPD 07/03/2024 07/23/2023 Albumin/Creatinine Ratio 04/28/2025 04/28/2022 DTaP,Tdap,and Td Vaccines (3 - Td or Tdap) 09/17/2029 09/17/2019, 08/10/2011, 10/01/2001 Zoster Vaccines Completed 04/25/2020, 08/31, 07/22/2012 VITAMIN D LEVEL ONCE IN A LIFETIME-USE SMARTSET# [id number] Completed 06/29/2020, 03/16/2015 Pneumococcal Vaccine: 65+ Years [...] Documents on File Type Date Recorded Patient Semiconductor Package Symbol Stamper Expl anation POLST 10/15/2019 3:17 PM POLST POLST 03/05/2019 POLST FORM Advance Directives and Living Will 01/27/2013 LIVING WILL Advance Directives and Living Will 01/27/2013 LIVING WILL Power of Lpn Per Diem 01/27/2013 POWER OF A TTORNEY Power of Lpn Per Diem 01/27/2013 POWER OF A TTORNEY Healthcare Agents on File Name Relationship Healthcare Agent Relationship Communication Cydney Benito Other - (no specific identity) Second Alternate Health Care Agent Anyi More Adult Child Health Care Roberth r of Lpn Per Diem Care Teams Assembler Seat Relationship Specialty Start Date End Date Rhys Humphrey MD [address] [place] [address] [place] [address] PCP - General Family Medicine 06/09/21 documented as of this encounter
--- OUTSIDE RECORDS SUMMARY | 2023-08-14 23:22 | External Medical Summary ---
Author Name Unknown Address Unknown Organization K01:[facility] [place] - [facility] [address] [facility] [address] [facility] [address] [facility] [address] Laboratory Report Ordering Provider Test Date Status CARLOS LEVIN 07/20/2023 08:45:45 Baetriz l Observation Date Value Abnormality Reference (Units ) Status WBC, Total 07/20/2023 08:45:45 5.74 4.00-10.80 (K/uL) Final RBC 07/20/2023 08:45:45 2.94 3.85-5.15 (M/uL) Final Hemoglobin 07/20/2023 08:45:45 8.2 Below low normal 12.0-15.3 (g/dL) Final HCT 07/20/2023 08:45:45 29.2 Below low normal 36.0-45.2 (%) Final MCV 07/20/2023 08:45:45 99.3 81.5-97.5 (fL) Final MCH 07/20/2023 08:45:45 27.9 27.0-34.0 (pg) Final MCHC 07/20/2023 08:45:45 28.1 32.0-36.0 (g/dL) Final RDW 07/20/2023 08:45:45 14.3 11.5-15.5 (%) Final Platelets 07/20/2023 08:45:45 393 140-400 (K/uL) Final MPV 07/20/2023 08:45:45 9.6 6.6-11.1 (fL) Final Nucleated erythrocytes/100 leukocytes [Ratio] in Blood by Automated count 07/20/2023 08:45:45 0 <=0 (/100 WBCs) Final Performing Location [facility] [place] - [address] [facility] [address]
--- OUTSIDE RECORDS SUMMARY | 2023-08-14 23:22 | External Medical Summary | Summary of Care ---
Author Name Unknown Organization [facility] Address [address] [place] [address] Phone [phone] Care Team Providers Care Library Monitor Name Role Phone Rhys Humphrey MD Primary Care Provide r Encounter Details Date Type Department Care Team (Late st Contact Info) Description 07/23/2023 Telephone Pulmonary Medicine, [place] [address] [place] [address] Prosper Bales MD [address] [place] [address] Allergies Active Allergy Reactions Criticality [...] COMPRESSOR) MISCIndications:COPD , moderate ([facility]) Inhale via nebulizer. Use as directed. 1 Each 1 11/17/2019 Active Iron 325 (65 Fe) MG Oral Tablet Take 1 Tablet by mouth daily. 0 Active Cranberry 500 MG Oral Capsule Take 1 Capsule by mouth in the morning and 1 Capsule before bedtime. 50 Cap 0 01/18/2021 Active Otnorge-Zfuzczoqs-Zo nc 333-133-5 MG Oral Tablet Take 1 Tablet by mouth daily. 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[facility]),COPD, group D, by GOLD 2017 classification ([facility]) Inhale by mouth 1 Puff in the [...] Aerosol SolutionIndications: COPD, moderate ([facility]) Inhale 2 Puffs by mouth every 4 [...] by GOLD 2017 classification ([facility]) Inhale 3 mL via nebulizer every 6 [...] diastolic congestive heart failure ([facility]) One tablet daily with an extra tablet [...] mRNA, LNP-s, No Pre serve, 2-Dose Series ([facility]) 07/11/2021,11/14/2020,10/24/2020 Covid-19, Mrna, Lnp-s, Pf, B ivalent, 30 Mcg, IM, 12 yrs and above ([facility]) 07/21/2022 Pneumococcal Conjugate Vacc, 13 Valent (Prevnar) 03/16/2015 Pneumococcal Conjugate Vacci ne, 20-valent ([id number]) 07/21/2022 Pneumococcal Polysaccharide PPV23 (Pneumovax) 03/05/2019,07/18/2007 SEASONAL [...] Telephone Encounter - Sangeetha Carter, ISELA - 07/23/2023 2:11 PM EDT OR time is saved for 08/02/2023 for patient [place] [facility] Waiting on instructions from Dr. Jim Fernandez please advise if you would like teresita or not. Thank you * Telephone Encounter - ISELA Ballesteros - 07/23/2023 11:33 AM EDT Hi All, Bales sent a message to me as well. Let me know if you need to source at [facility]. Thanks! * Telephone Encounter - ISELA Espinosa [...] 2:30 PM EDT Scheduled Telephone [facility], [facility] [address] [place] [address] [facility] [address] [place] [address] 08/06/2023 12:00 PM EST Scheduled Telephone [facility], [facility] [address] [place] [address] [facility] [address] [place] [address] 08/10/2023 11:15 AM EST Hospital Encounter ENDO [facility], Endoscopy Room [facility] [address] [place] [phone] Sangeetha Song, [address] [place] [address] 08/10/2023 11:15 AM EST - 08/10/2023 11:45 AM EST Surgery ENDO [facility], Endoscopy Room [facility] [address] [place] [phone] Sangeetha Song, [address] [place] [address] ESOPHAGOGASTRODUODENOSCOPY (EGD), FLEXIBLE, TRANSORAL, DIAGNOSTIC 09/17/2023 9:40 AM EST Office Visit Dermatology [address] [place] [address] Marycruz Almazan PA-C [address] [place] [address] [place] [address] 10/03/2023 10:30 AM EST Office Visit Sleep Disorders Ctr [facility] [address] [facility] [place] [phone] Sosa Freeman CRNP [address] [place] [address] 10/16/2023 11:30 AM EST Office Visit [facility]enterology [facility] [place] [address] Lizzette Silva CRNP [address] [place] [address] 12/10/2023 9:20 AM EDT Office Visit Family Medicine [address] [place] [phone] Rhys Humphrey MD [address] [place] [address] [place] [address] 12/27/2023 11:00 AM EDT Office Visit Cardiology [address] [place] [address] Mi Neil PA-Hector [address] [place] [address] 03/18/2024 9:00 AM EDT Nurse Only Ancillary [address] [place] [address] [place], Nurse Annual [address] [place] [address] Scheduled Procedures Name Priority Associated Diagnoses Date/Ti [...] D LEVEL ONCE IN A LIFETIME-USE SMARTSET# [id number] Completed 06/29/2020, 03/16/2015 Pneumococcal Vaccine: 65+ Years [...] Documents on File Type Date Recorded Patient Microsoft Dynamics Developer Expl anation POLST 10/15/2019 3:17 PM POLST POLST 03/05/2019 POLST FORM Advance Directives and Living Will 01/27/2013 LIVING WILL Advance Directives and Living Will 01/27/2013 LIVING WILL Power of Maintenance Welder 01/27/2013 POWER OF A TTORNEY Power of Maintenance Welder 01/27/2013 POWER OF A TTORNEY Healthcare Agents on File Name Relationship Healthcare Agent Relationship Communication Cydney Benito Other - (no specific identity) Second Alternate Health Care Agent Anyi More Adult Child Health Care Roberth r of Maintenance Welder Care Teams Library Monitor Relationship Specialty Start Date End Date Rhys Humphrey MD [address] [place] [address] [place] [address] PCP - General Family Medicine 06/09/21 documented as of this encounter
--- OUTSIDE RECORDS SUMMARY | 2023-08-14 23:22 | External Medical Summary | Summary of Care ---
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) Normocytic anemia Mediastinal lymphadenopathy Gris Diaz CRNP [address] [place] [address] Referral ID Status Reason Start Date Expiration Date Visits Requested Visits Authorized [id number] Authorized Specialty Services Required 3 [phone] Encounter Details Date Type Department Care Team (Late st Contact Info) Description 07/23/2023 9:20 AM EDT Telemedicine Pulmonary Medicine, [place] [address] [place] [address] Prosper Bales MD [address], [place] [id number] Cart, Telemed Pulm Gw [address] [place] [address] Mediastinal adenopathy*; Pulmonary nodules; Centrilobular emphysema (HCC); Hemoptysis Allergies Active Allergy Reactions Criticality Noted Date [...] before bedtime. 50 Cap 0 01/18/2021 Active Qyhvyvr-Zytqlnacx-Ui nc 333-133-5 MG Oral Tablet Take 1 Tablet by mouth daily. 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),COPD, group D, by GOLD [...] Inhalation Aerosol SolutionIndications: COPD, moderate ([facility]) Inhale 2 Puffs by mouth every 4 [...] D, by GOLD 2017 classification ([facility]) Inhale 3 mL via nebulizer every 6 [...] mRNA, LNP-s, No Pre serve, 2-Dose Series (Nanosolar) 07/11/2021,11/14/2020,10/24/2020 Covid-19, Mrna, Lnp-s, Pf, B ivalent, 30 Mcg, IM, 12 yrs and above (Pfizer) 07/21/2022 Pneumococcal Conjugate Vacc, 13 Valent (Prevnar) 03/16/2015 Pneumococcal Conjugate Vacci ne, 20-valent ([id number]) 07/21/2022 Pneumococcal Polysaccharide PPV23 (Pneumovax) 03/05/2019,07/18/2007 SEASONAL [...] Sign Reading Time Taken Comments Blood Pressure 128/78 07/23/2023 9:11 AM EDT Pulse 80 07/23/2023 9:11 AM EDT Temperature 35.9 C (96.7 F) 07/23/2023 9:11 AM ED T Respiratory Rate 16 07/23/2023 9:11 AM EDT Oxygen Saturation 93% 07/23/2023 9:11 AM EDT Inhaled Oxygen Concentration - - Weight 70.8 kg (156 lb) 07/23/2023 9:11 AM EDT Height 162.6 cm (5' 4") 07/23/2023 9:11 AM EDT Body Mass Index 26.78 07/23/2023 9:11 AM EDT documented in this encounter Progress Notes * Prosper Bales MD - 07/23/2023 9:26 AM EDT INITIAL PULMONARY CONSULTATION/VISIT NOTE REFERRING PHYSICIAN: Rhys Humhprey MD REASON FOR REFERRAL: 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 I was in a hospital or clinic location. After connecting through televideo, patient was verified with two unique identifiers. Patient (or authorized legal residential sales representative) was then informed that this was a Telemedicine visit and being conducted confidentiallyover secure lines. Methods to assure confidentiality were taken. Patient acknowledged consent and understanding of privacy and security of the Telemedicine visit. The patient agreed to participate. HPI: Keisha Linares is a 82 year old female with history of remote (1/3 ppd for many years, quit in 2003) [...] COVID-19 mRNA, LNP-s, No Preserve, 2-Dose Series (Nanosolar) 10/24/2020, 11/14/2020, 07/11/2021 Covid-19, Mrna, Lnp-s, Pf, Bivalent, 30 Mcg, IM, 12 yrs and above (Pfizer) 07/21/2022 Pneumococcal Conjugate Vacc, 13 Valent (Prevnar) 03/16/2015 Pneumococcal Conjugate Vaccine, 20-valent ([id number]) 07/21/2022 Pneumococcal Polysaccharide PPV23 (Pneumovax) 07/18/2007, 03/05/2019 [...] Surgical History: Procedure Laterality Date BREAST LESION,OTHER,EXCISION 1995 Breast Lesion Excise CERV;VAG CANCER SCREEN;PEL & B 03/2000 COLONOSCOPY 03/03/2013 diverticulosis, polyps, internal hemorrhoids COLONOSCOPY, DIAGNOSTIC (RECTUM) 07/31/2017 diverticulosis/[facility] COLONOSCOPY, DIAGNOSTIC (RECTUM) 09/09/2021 diverticulosis / [facility] COLORECTAL CANCER SCREEN; NOT AT RISK 11/[address] ABDOMEN/PELVIS 04/02/2013 mesenteric lymphadenopathy concerning for lymphoma DIGITAL RECTAL EXAM,ANNUAL 03/2000 EGD, FLEXIBLE, DIAGNOSTIC 03/03/2013 mild gastritis EGD, FLEXIBLE, DIAGNOSTIC 07/31/2017 normal bx, hiatal hernia/[facility] EGD, FLEXIBLE, DIAGNOSTIC 10/14/2021 reflux esophagitis, hiatal hernia / [facility] EGD, FLEXIBLE, DIAGNOSTIC 09/09/2021 hiatal hernia / [facility]EMORRHOIDECTOMY, SIMPLE, 1 COLUMN 1989 Hemorrhoidectomy,Int/Ext,Simple MAMMOGRAM SCREENING-BILATERAL 03/2000 SIGMOIDOSCOPY, DIAGNOSTIC 1996 SPIROMETRY B/A BRONCHODILATOR 01/06/2005 obstructive airway disease THROMBOENDARECTOMY W/PATCH,NECK INCISION Right carotid endarterectomy done in [place] TOTAL ABD HYSTERECTOMY W/WO REMOVAL OF TUBE(S) 1973 non cancer reasons TOTAL HIP REPLACEMENT & PROSTHESIS 08/19/2008 [facility] Adhesive tape and Ginger shannon [dextromethorphan-guaifenesin] Current [...] managing provider. 1 Each0 Nebulizers (NEBULIZER COMPRESSOR) MISC Inhale via nebulizer. Use as directed. 1 Each 1 Iron 325 (65 Fe) MG Oral Tablet Take 1 Tablet by mouth daily. Cranberry 500 MG Oral Capsule Take 1 Capsule by mouth in the morning and 1 Capsule before bedtime. 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 Prosper Bales MD Pulmonary Medicine, [place] [address] This chart was completed in part utilizing IMASTE Speech Voice Recognition Software. Randomword insertions, pronoun errors, and incomplete sentences are an occasional consequence of this system due to software limitations, and ambient noise. Any questions or concerns about the content, text, or information contained within the body of this dictation should be directly addressed to the provider for clarification. documented in this encounter Nursing Notes * Page Lawrence LPN - 07/23/2023 9:17 AM EDT Chief Complaint Patient presents with NEW PATIENT Emphysema COPD Interm History/Respiratory Symptoms Cough: occ-clear Hemoptysis: streaking in the past 2 weeks Sinus Symptoms: no Hospitalizations: no ED Trips: no Triggers: scents,cleaning products Nocturnal: SOB CPAP/BiPAP/O2: no Mmrc Cat Question 07/23/2023 9:17 AM EDT - Filed by Page Lawrence LPN When do you become breathless? (1) I get short of breath when hurrying on level ground How frequently do you cough? (2) Do you have phlegm in your chest? (0) - I have no phlegm (mucus) in my chest Is your chest tight? (0) - My chest does not feel tight at all How breathless do you become when walking up a hill or steps? (5) - When I walk up a hill or one flight of stairs I am very breathless How limited are you doing activities at home? (0) - I am not limited doing any activities at home How confident are you leaving home with your lung condition? (0) - I am confident leaving my home despite my condition How soundly do you sleep? (5) - I don't sleep soundly because of my lung condition How much energy do you have? (0) - I have lots of energy Total MMRC Score (range: 0 - 4) 1 Total CAT Score (range: 0 - 40) 12 documented in this encounter Plan of Treatment Upcoming Encounters Date Type Department Care Team (Latest Contact Info) Description 07/25/2023 2:30 PM EDT Scheduled Telephone [facility], [facility] [address] [place] [address] [facility] [place] [address] 08/06/2023 12:00 PM EST Scheduled Telephone [facility], [facility] [address] [place] [address] [facility] Nurse Triage [address] [place] [address] 08/10/2023 11:15 AM EST Hospital Encounter ENDO [facility], Endoscopy Room [facility] [address] [place] [address] Sangeetha Song DO [address] [place] [address] 08/10/2023 11:15 AM EST - 08/10/2023 11:45 AM EST Surgery ENDO [facility], Endoscopy Room [facility] [address] [place] [address] Sangeetha Song DO [address] [place] [address] ESOPHAGOGASTRODUODENOSCOPY (EGD), FLEXIBLE, TRANSORAL, DIAGNOSTIC 09/17/2023 9:40 AM EST Office Visit Dermatology [address] [place] [address] Marycruz Almazan PA-C [address] [place] [address] [place] [address] 10/03/2023 10:30 AM EST Office Visit Sleep Disorders Ctr [facility] 132 [facility] [place] [phone] Sosa Freeman CRNP [address] [place] [address] 10/16/2023 11:30 AM EST Office Visit Gastroenterology , [facility] 132 [facility] [place] [address] Lizzette Silva CRNP 132 [facility] [place] [address] 12/10/2023 9:20 AM EDT Office Visit Family Medicine [address] [place] [phone] Rhys Humphrey MD [address] [place] [address] [place] [address] 12/27/2023 11:00 AM EDT Office Visit Cardiology [address] [place] [address] Mi Neil PA-C 132 [facility] [place] [address] 03/18/2024 9:00 AM EDT Nurse Only Ancillary [address] [place] [address] [place], Nurse Annual Wellness [address] [place] [address] [place] [address] Scheduled Procedures Name Priority Associated Diagnoses Date/Ti me ESOPHAGOGASTRODUODENOSCOPY ( EGD), FLEXIBLE, TRANSORAL, DIAGNOSTIC Other iron deficiency anemia 08/10/2023 11:15 AM EST Scheduled Referrals Name Type Priority Associated Diagnoses Orde r Schedule PULMONARY REFERRAL OP Referral Within 3 days (urgent) 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) Normocytic anemia Mediastinal lymphadenopathy Ordered: 07/12/2023 Health Maintenance Due Date Last Done Comments [...] D LEVEL ONCE IN A LIFETIME-USE SMARTSET# [id number] Completed 06/29/2020, 03/16/2015 Pneumococcal Vaccine: 65+ Years [...] as of this encounter Visit Diagnoses Diagnosis Mediastinal adenopathy- Primary Enlargement of lymph nodes Pulmonary nodules Other nonspecific abnormal finding of lung field Centrilobular emphysema (HCC) Other emphysema Hemoptysis Hemoptysis, unspecified Other iron deficiency anemia documented in this encounter Advance Directives Documents on File Type Date Recorded Patient Automatic Shirring Machine Operator Expl anation POLST 10/15/2019 3:17 PM POLST POLST 03/05/2019 POLST FORM Advance Directives and Living Will 01/27/2013 LIVING WILL Advance Directives and Living Will 01/27/2013 LIVING WILL Power of Molding Process Technician 01/27/2013 POWER OF A TTORNEY Power of Molding Process Technician 01/27/2013 POWER OF A TTORNEY Healthcare Agents on File Name Relationship Healthcare Agent Relationship Communication Cydney Benito Other - (no specific identity) Second Alternate Health Care Agent Anyi More Adult Child Health Care Roberth r of Molding Process Technician Care Teams Trust Manager Assistant Relationship Specialty Start Date End Date Rhys Humphrey MD [address] [place] [address] [place] [address] PCP - General Family Medicine 06/09/21 documented as of this encounter
--- OUTSIDE RECORDS SUMMARY | 2023-08-14 23:22 | External Medical Summary | Summary of Care ---
Author Name Unknown Organization [facility] Address [address] [place] [address] Phone [phone] Care Team Providers Care Office Rental Clerk Name Role Phone Rhys Humphrey MD Primary Care Provide r Reason for Visit * Reason Onset Date Comments [facility]: Maintenance 07/16/2023 Encounter Details Date Type Department Care Team Description 07/16/2023 Scheduled Telephone [facility], [facility] [address] [place] [address] [facility] Nurse Triage [address] [place] [address] Allergies Active Allergy Reactions Severity Noted Date Comments Adhesive Tape Other (Please comment),Hives High 09/29/2008 Caused welts Dextromethorphan-Gua ifenesin Neuro complications (Please comment) Medium 12/23/2021 Feels lightheaded/"foggy" documented as of this encounter (statuses as of 07/18/2023) Medications Medication Sig Dispensed Refills Start Date [...] before bedtime. 50 Cap 0 01/18/2021 Active Zkrfyhz-Fpkjzeslb-Sh nc 333-133-5 MG Oral Tablet Take 1 Tablet by mouth daily. 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),COPD, group D, by GOLD [...] as of this encounter (statuses as of 07/18/2023) Active Problems Problem Noted Date Acute serous [...] as of this encounter (statuses as of 07/18/2023) Resolved Problems Problem Noted Date Resolved Date [...] as of this encounter (statuses as of 07/18/2023) Immunizations Name Administration Dates Next Due COVID-19 mRNA, LNP-s, No Pre serve, 2-Dose Series (GigaTrust) 07/11/2021,11/14/2020,10/24/2020 Covid-19, Mrna, Lnp-s, Pf, B ivalent, 30 Mcg, IM, 12 yrs and above ([employer]iga[employer]) 07/21/2022 Pneumococcal Conjugate Vacc, 13 Valent (Prevnar) 03/16/2015 Pneumococcal Conjugate Vacci ne, 20-valent ([id number]) 07/21/2022 Pneumococcal Polysaccharide PPV23 (Pneumovax) 03/05/2019,07/18/2007 SEASONAL [...] Miscellaneous Notes * Telephone Encounter - ISELA Huang - 07/18/2023 3:32 PM EDT Inbound call from pt returning [facility], msg put in chat, [facility] will call pt back tomorrow * Telephone Encounter - Estee Verde RN - 07/16/2023 1:36 PM EDT [facility] Brush Fabrication Supervisor Monthly Visit Date: 07/16/2023 Time: 1:36 PM Name: Keisha Linares : 1940 Follow up call to Keisha regarding blood in sputum and lung biopsy, no answer, left detailed message requesting return call [facility] Verde RN 07/16/2023 documented in this encounter Plan of Treatment Upcoming Encounters Date Type Specialty Care Team Description 3 Scheduled Telephone [facility] Nurse Triage [address] [place] [address] 3 Telemedicine Pulmonary Prosper Bales MD [address] [place] [address] Cart, Telemed Pulm Gw [address] [place] [address] 3 Scheduled Telephone [facility] Nurse Triage [address] [place] [address] 3 Hospital Encounter Endoscopy Sangeetha Song DO [address] [place] [address] 3 Surgery Endoscopy Sangeetha Song DO [address] [place] [address] ESOPHAGOGASTRODUODENOSCOPY (EGD), FLEXIBLE, TRANSORAL, DIAGNOSTIC 3 Office Visit Dermatology Marycruz Almazan PA-C [address] [place] [address] [place] [address] 4 Office Visit Sleep Disorders Sosa Freeman CRNP [address] [place] [address] 4 Office Visit Gastroenterology Lizzette Silva CRNP [address] [place] [address] 4 Office Visit Family Medicine Rhys Humphrey MD [address] [place] [address] [place] [address] 4 Office Visit Cardiology Mi Neil PA-C [address] [place] [address] 4 Nurse Only Ancillary [place], Nurse Annual Wellness [address] [place] [address] [place] [address] Scheduled Procedures Name Priority Associated Diagnoses Date/Ti [...] D LEVEL ONCE IN A LIFETIME-USE SMARTSET# [id number] Completed 06/29/2020, 03/16/2015 Pneumococcal Vaccine: 65+ Years [...] Documents on File Type Date Recorded Patient Sales Representative Business Courses Expl anation POLST 10/15/2019 3:17 PM POLST POLST 03/05/2019 POLST FORM Advance Directives and Living Will 01/27/2013 LIVING WILL Advance Directives and Living Will 01/27/2013 LIVING WILL Power of Supervisor Farm Equipment Maintenance 01/27/2013 POWER OF A TTORNEY Power of Supervisor Farm Equipment Maintenance 01/27/2013 POWER OF A TTORNEY Healthcare Agents on File Name Relationship Healthcare Agent Relationship Communication Cydney Benito Other - (no specific identity) Second Alternate Health Care Agent Anyi More Adult Child Health Care Roberth r of Supervisor Farm Equipment Maintenance Care Teams Office Rental Clerk Relationship Specialty Start Date End Date Rhys Humphrey MD [address] [place] [address] [place] [address] PCP - General Family Medicine 06/09/21 documented as of this encounter
--- OUTSIDE RECORDS SUMMARY | 2023-08-14 23:22 | External Medical Summary | Summary of Care ---
Author Name Unknown Organization [facility] Address [address] [place] [address] Phone [phone] Care Team Providers Care Automotive Warranty Administrator Name Role Phone Rhys Humphrey MD Primary Care Provide r Reason for Visit * Reason Onset Date Comments [facility]: Maintenance 07/24/2023 Encounter Details Date Type Department Care Team (Late st Contact Info) Description 07/24/2023 Telephone [facility], [facility] [address] [place] [address] [facility], Nurse [facility] [address] [place] [address] [facility]: Maintenance Allergies [...] before bedtime. 50 Cap 0 01/18/2021 Active Qvhyfnm-Bytpzvzcb-Il nc 333-133-5 MG Oral Tablet Take 1 Tablet by mouth daily. 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) Inhale by mouth 1 Puff in [...] COPD, group D, by GOLD 2017 classification ([facility]) Inhale 3 mL via nebulizer every [...] mRNA, LNP-s, No Pre serve, 2-Dose Series ([employer]) 07/11/2021,11/14/2020,10/24/2020 Covid-19, Mrna, Lnp-s, Pf, B ivalent, 30 Mcg, IM, 12 yrs and above ([employer]) 07/21/2022 Pneumococcal Conjugate Vacc, 13 Valent (Prevnar) 03/16/2015 Pneumococcal Conjugate Vacci ne, 20-valent ([id number]) 07/21/2022 Pneumococcal Polysaccharide PPV23 (Pneumovax) 03/05/2019,07/18/2007 SEASONAL [...] Miscellaneous Notes * Telephone Encounter - Denise Pittman, DUNCAN - 07/24/2023 10:14 AM EDT Images from [...] chest pain or palpitations Will route to [facility] [place] team for any recommendations Overall risk and identified plan: Moderate risk: Route to RNCM (Registered Nurse Brooch Maker Novelty) and Advance Practitioner Route to [facility] (Remote Medical Coordinator) documented in this encounter Plan of Treatment Upcoming Encounters Date Type Department Care Team (Latest Contact Info) Description 07/25/2023 2:30 PM EDT Scheduled Telephone [facility], [facility] [address] [place] [address] [facility] [place] [address] 08/06/2023 12:00 PM EST Scheduled Telephone [facility], [facility] [address] [place] [address] [facility] Nurse Triage [address] [place] [address] 08/10/2023 11:15 AM EST Hospital Encounter ENDO [facility], Endoscopy Room [facility] [address] [place] [address] Sangeetha Song DO [address] [place] [address] 08/10/2023 11:15 AM EST - 08/10/2023 11:45 AM EST Surgery ENDO [facility], Endoscopy Room [facility] [address] [place] [address] Sangeetha Song DO [address] [place] [address] ESOPHAGOGASTRODUODENOSCOPY (EGD), FLEXIBLE, TRANSORAL, DIAGNOSTIC 09/17/2023 9:40 AM EST Office Visit Dermatology [address] [place] [address] Marycruz Almazan PA-C [address] [place] [address] [place] [address] 10/03/2023 10:30 AM EST Office Visit Sleep Disorders Ctr [facility] [address] [place] [phone] Sosa Freeman CRNP [address] [place] [address] 10/16/2023 11:30 AM EST Office Visit Gastroenterology , [facility] [address] [place] [address] Lizzette Silva CRNP [address] [place] [address] 12/10/2023 9:20 AM EDT Office Visit Family Medicine [address] [place] [phone] Rhys Humphrey MD [address] [place] [address] [place] [address] 12/27/2023 11:00 AM EDT Office Visit Cardiology [address] [place] [address] Mi Neil PA-C [address] [place] [address] 03/18/2024 9:00 AM EDT Nurse Only Ancillary [address] [place] [address] [place], Nurse Annual Wellness [address] [place] [address] [place] [address] Scheduled Procedures Name Priority Associated Diagnoses Date/Ti [...] D LEVEL ONCE IN A LIFETIME-USE SMARTSET# [id number] Completed 06/29/2020, 03/16/2015 Pneumococcal Vaccine: 65+ Years [...] Documents on File Type Date Recorded Patient Food Safety Specialist Expl anation POLST 10/15/2019 3:17 PM POLST POLST 03/05/2019 POLST FORM Advance Directives and Living Will 01/27/2013 LIVING WILL Advance Directives and Living Will 01/27/2013 LIVING WILL Power of Supervisor Lump Room 01/27/2013 POWER OF A TTORNEY Power of Supervisor Lump Room 01/27/2013 POWER OF A TTORNEY Healthcare Agents on File Name Relationship Healthcare Agent Relationship Communication Cydney Thong Other - (no specific identity) Second Alternate Health Care Agent Anyi More Adult Child Health Care Roberth r of Supervisor Lump Room Care Teams Automotive Warranty Administrator Relationship Specialty Start Date End Date Rhys Humphrey MD [address] [place] [address] [place] [address] PCP - General Family Medicine 06/09/21 documented as of this encounter
--- OUTSIDE RECORDS SUMMARY | 2023-08-14 23:22 | External Medical Summary | Summary of Care ---
Author Name Unknown Organization [facility] Address [address] [place] [address] Phone [phone] Care Team Providers Care Antique Automobiles Repairer Name Role Phone Rhys Humphrey MD Primary Care Provide r Reason for Visit * Reason Onset Date Comments [facility]: Maintenance 07/18/2023 Encounter Details Date Type Department Care Team Description 07/18/2023 Scheduled Telephone [facility], [facility] [address] [place] [address] [facility] Nurse Triage [address] [place] [address] Allergies Active Allergy Reactions Severity Noted Date [...] before bedtime. 50 Cap 0 01/18/2021 Active Rworecd-Qcvvhxjtv-Pg nc 333-133-5 MG Oral Tablet Take 1 Tablet by mouth daily. 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),COPD, group D, by GOLD 2017 classification ([facility]) Inhale by mouth 1 Puff [...] group D, by GOLD 2017 classification ([facility]) Inhale 3 mL via nebulizer [...] 05/31/2017 Cancer Staging:Clinical:Stage III- Signed by Martínez Loeps MD on 11/16/2014 Pathologic: Unsigned TIA (transient ischemic attack) 06/24/2018 documented as of this encounter (statuses as of 07/18/2023) Immunizations Name Administration Dates Next Due COVID-19 mRNA, LNP-s, No Pre serve, 2-Dose Series ([employer]) 07/11/2021,11/14/2020,10/24/2020 Covid-19, Mrna, Lnp-s, Pf, B ivalent, 30 Mcg, IM, 12 yrs and above ([employer]) 07/21/2022 Pneumococcal Conjugate Vacc, 13 Valent (Prevnar) 03/16/2015 Pneumococcal Conjugate Vacci ne, 20-valent ([id number]) 07/21/2022 Pneumococcal Polysaccharide PPV23 (Pneumovax) 03/05/2019,07/18/2007 SEASONAL [...] Telephone Encounter - Estee Verde RN - 07/18/2023 4:14 PM EDT Return call from Keisha, states she is still having some blood in sputum only in the morning and when she lays down occasionally. Dr. Lopes aware and documented that recent the imaging study showed new mediastinal, hilar and retroperitoneal lymphadenopathy. Has appointment with Pulmonary on Sundayand to have lab work done on Sunday. Will follow up call on next week MERNA Johnson Explosives Mixer Operator [facility] documented in this encounter Plan of Treatment Upcoming Encounters Date Type Specialty Care Team Description 3 Telemedicine Pulmonary [facility]per Bales MD [address] [facility] [id number] Cart, Telemed Pulm Gw [address] [place] [address] 3 Scheduled Telephone [facility] Nurse Triage [address] [place] [address] 3 Scheduled Telephone [facility] Nurse Triage 132 [facility] [place] [address] 3 Hospital Encounter Endoscopy Sangeetha Song DO [address] [place] [address] 3 Surgery Endoscopy Sangeetha Song DO [address] [place] [address] ESOPHAGOGASTRODUODENOSCOPY (EGD), FLEXIBLE, TRANSORAL, DIAGNOSTIC 3 Office Visit Dermatology Marycruz Almazan PA-C [address] [place] [address] [place] [address] 4 Office Visit Sleep Disorders Sosa Freeman CRNP [address] [place] [address] 4 Office Visit Gastroenterology Lizzette Silva CRNP [address] [place] [address] 4 Office Visit Family Medicine Rhys Humphrey MD [address] [place] [address] [place] [address] 4 Office Visit Cardiology Mi Neil PA-C [address] [place] [address] 4 Nurse Only Ancillary [place]oval[place], Nurse Annual Wellness [address] [place] [address] [place] [address] Scheduled Procedures Name Priority Associated Diagnoses Date/Ti [...] D LEVEL ONCE IN A LIFETIME-USE SMARTSET# [id number] Completed 06/29/2020, 03/16/2015 Pneumococcal Vaccine: 65+ Years [...] Documents on File Type Date Recorded Patient Bushing And Broach Operator Expl anation POLST 10/15/2019 3:17 PM POLST POLST 03/05/2019 POLST FORM Advance Directives and Living Will 01/27/2013 LIVING WILL Advance Directives and Living Will 01/27/2013 LIVING WILL Power of Card Mounter 01/27/2013 POWER OF A TTORNEY Power of Card Mounter 01/27/2013 POWER OF A TTORNEY Healthcare Agents on File Name Relationship Healthcare Agent Relationship Communication Cydney Benito Other - (no specific identity) Second Alternate Health Care Agent Anyi More Adult Child Health Care Roberth cooper of Card Mounter Care Teams [employer] Repairer Relationship Specialty Start Date End Date Rhys Humphrey MD [address] [place] [address] [place] [address] PCP - General Family Medicine 06/09/21 documented as of this encounter
--- OUTSIDE RECORDS SUMMARY | 2023-08-14 23:22 | External Medical Summary | Summary of Care ---
Author Name Unknown Organization [facility] Address [address] [place] [address] Phone [phone] Care Team Providers Care Commercial Real Estate Paralegal Name Role Phone Rhys Humphrey MD Primary Care Provide r Reason for Visit * Reason Comments Outpatient Testing Encounter Details Date Type Department Care Team Description 07/20/2023 Laboratory Laboratory [address] [place] [address] [place] [id number] Anemia, unspecified type Allergies Active Allergy Reactions Severity Noted Date [...] before bedtime. 50 Cap 0 01/18/2021 Active Gtetvij-Srcpcxoac-Ar nc 333-133-5 MG Oral Tablet Take 1 Tablet by mouth daily. 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),COPD, group D, by GOLD 2017 classification ([facility]) Inhale by mouth 1 Puff [...] D, by GOLD 2017 classification ([facility]) Inhale 3 mL via nebulizer [...] mRNA, LNP-s, No Pre serve, 2-Dose Series ([employer]) 07/11/2021,11/14/2020,10/24/2020 Covid-19, Mrna, Lnp-s, Pf, B ivalent, 30 Mcg, IM, 12 yrs and above ([employer]) 07/21/2022 Pneumococcal Conjugate Vacc, 13 Valent (Prevnar) 03/16/2015 Pneumococcal Conjugate Vacci ne, 20-valent ([id number]) 07/21/2022 Pneumococcal Polysaccharide PPV23 (Pneumovax) 03/05/2019,07/18/2007 SEASONAL [...] on file documented as of this encounter Plan of Treatment Upcoming Encounters Date Type Specialty Care Team Description 3 Scheduled Telephone [facility], Nurse [address] [place] [address] 3 Telemedicine Pulmonary Prosper Bales MD [address] [facility] [place] [address] Cart, Telemed Pulm Gw [address] [place] [address] 3 Scheduled Telephone [facility] Nurse Triage [address] [place] [address] 3 Scheduled Telephone [facility] Nurse Triage [address] [place] [address] 3 Hospital Encounter Endoscopy Sangeetha Song DO [address] [place] [address] 3 Surgery Endoscopy Sangeetha Song DO [address] [place] [address] ESOPHAGOGASTRODUODENOSCOPY (EGD), FLEXIBLE, TRANSORAL, DIAGNOSTIC 3 Office Visit Dermatology Marycruz Almazan PA-C [address] [place] [address] [place] [address] 4 Office Visit Sleep Disorders Sosa Freeman CRNP [address] [place] [address] 4 Office Visit Gastroenterology Lizzette Silva CRNP [address] [place] [address] 4 Office Visit Family Medicine Rhys Humphrey MD [address] [place] [address] [place] [address] 4 Office Visit Cardiology Mi Neil PA-C [address] [place] [address] 4 Nurse Only Ancillary [place], Nurse Annual Wellness [address] [place] [address] [place] [address] Pending Results Name Type Priority Associated Diagnoses Date /Time CBC WITH WBC DIFFERENTIAL Lab Routine Anemia, unspecified type 07/20/2023 8:45 AM EDT CBC Lab Routine Anemia, unspecified type 07/20/2023 8:45 AM EDT DIFFERENTIAL, AUTOMATED Lab Routine Anemia, unspecified type 07/20/2023 8:45 AM EDT Scheduled Procedures Name Priority Associated Diagnoses Date/Ti [...] D LEVEL ONCE IN A LIFETIME-USE SMARTSET# [id number] Completed 06/29/2020, 03/16/2015 Pneumococcal Vaccine: 65+ Years [...] as of this encounter Visit Diagnoses Diagnosis Anemia, unspecified type Other iron deficiency anemia documented in this encounter Advance Directives Documents on File Type Date Recorded 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 Expl 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 POLST 10/15/2019 3:17 PM POLST POLST 03/05/2019 POLST FORM Advance Directives and Living Will 01/27/2013 LIVING WILL Advance Directives and Living Will 01/27/2013 LIVING WILL Power of Canal Tender 01/27/2013 POWER OF A TTORNEY Power of Canal Tender 01/27/2013 POWER OF A TTORNEY Healthcare Agents on File Name Relationship Healthcare Agent Relationship Communication Cydney Benito Other - (no specific identity) Second Alternate Health Care Agent Anyi More Adult Child Health Care Roberth r of Canal Tender Care Teams Commercial Real Estate Paralegal Relationship Specialty Start Date End Date Rhys Humphrey MD [address] [place] [address] [place] [phone] PCP - General Family Medicine 06/09/21 documented as of this encounter
--- OUTSIDE RECORDS SUMMARY | 2023-08-14 23:23 | External Medical Summary | Summary of Care ---
Author Name Unknown Organization [facility] Address [address] [place] [address] Phone [phone] Care Team Providers Care Line Server Name Role Phone Rhys Humphrey MD Primary Care Provide r Reason for Visit * Reason Onset Date Comments [facility]: Maintenance 07/16/2023 Encounter Details Date Type Department Care Team Description 07/16/2023 Scheduled Telephone [facility], [facility] [address] [place] [address] [facility] Nurse Triage [address] [place] [address] Allergies Active Allergy Reactions Severity Noted Date Comments Adhesive Tape Other (Please comment),Hives High 09/29/2008 Caused welts Dextromethorphan-Gua ifenesin Neuro complications (Please comment) Medium 12/23/2021 Feels lightheaded/"foggy" documented as of this encounter (statuses as of 07/17/2023) Medications Medication Sig Dispensed Refills Start Date [...] before bedtime. 50 Cap 0 01/18/2021 Active Nkmeapq-Otrczorkg-Gi nc 333-133-5 MG Oral Tablet Take 1 Tablet by mouth daily. 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),COPD, group D, by GOLD 2017 classification ([facility]) Inhale by mouth 1 Puff in the [...] COPD, group D, by GOLD 2017 classification ([facility]) Inhale 3 mL via nebulizer every 6 [...] as of this encounter (statuses as of 07/17/2023) Active Problems Problem Noted Date Acute serous [...] as of this encounter (statuses as of 07/17/2023) Resolved Problems Problem Noted Date Resolved Date [...] as of this encounter (statuses as of 07/17/2023) Immunizations Name Administration Dates Next Due COVID-19 mRNA, LNP-s, No Pre serve, 2-Dose Series ([employer]) 07/11/2021,11/14/2020,10/24/2020 Covid-19, Mrna, Lnp-s, Pf, B ivalent, 30 Mcg, IM, 12 yrs and above (AltraVax) 07/21/2022 Pneumococcal Conjugate Vacc, 13 Valent (Prevnar) 03/16/2015 Pneumococcal Conjugate Vacci ne, 20-valent ([id number]) 07/21/2022 Pneumococcal Polysaccharide PPV23 (Pneumovax) 03/05/2019,07/18/2007 SEASONAL [...] Verde RN - 07/16/2023 1:36 PM EDT [facility] Tree Fruit And Nut Farming Supervisor Monthly Visit Date: 07/16/2023 Time: 1:36 [...] [facility] [place] 132 [facility] [place] [phone] (Fax) 3 Telemedicine Pulmonary Prosper Bales MD [address] [place], [place] [phone] Cart, Telemed Pulm Gw [address] [place] [address] 3 Scheduled Telephone [facility] Nurse Triage 132 [facility] [place] [phone] (Fax) 3 Hospital Encounter Endoscopy Sangeetha Song DO [address] [place] [address] 3 Surgery Endoscopy Sangeetha Song DO [address] [place] [address] ESOPHAGOGASTRODUODENOSCOPY (EGD), FLEXIBLE, TRANSORAL, DIAGNOSTIC 3 Office Visit Dermatology Marycruz Almazan PA-C [address] [place] [address] [place] [address] 4 Office Visit Sleep Disorders Sosa Freeman CRNP [address] [place] [address] 4 Office Visit Gastroenterology Lizzette Silva CRNP [address] [place] [address] 4 Office Visit Family Medicine Rhys Humphrey MD [address] [place] [address] [place] [address] 4 Office Visit Cardiology Mi Neil PA-C [address] [place] [address] 4 Nurse Only Ancillary Stanton Nurse Annual Wellness [address] [place] [address] [place] [address] Scheduled Procedures Name Priority Associated Diagnoses Date/Ti [...] D LEVEL ONCE IN A LIFETIME-USE SMARTSET# [id number] Completed 06/29/2020, 03/16/2015 Pneumococcal Vaccine: 65+ Years [...] Documents on File Type Date Recorded Patient Husbandry Technician Expl anation POLST 10/15/2019 3:17 PM POLST POLST 03/05/2019 POLST FORM Advance Directives and Living Will 01/27/2013 LIVING WILL Advance Directives and Living Will 01/27/2013 LIVING WILL Power of Cra Officer 01/27/2013 POWER OF A TTORNEY Power of Cra Officer 01/27/2013 POWER OF A TTORNEY Healthcare Agents on File Name Relationship Healthcare Agent Relationship Communication Cydney Benito Other - (no specific identity) Second Alternate Health Care Agent Anyi More Adult Child Health Care Roberth r of Cra Officer Care Teams Line Server Relationship Specialty Start Date End Date Rhys Humphrey MD [address] [place] [address] [place] [phone] PCP - General Family Medicine 06/09/21 documented as of this encounter
--- OUTSIDE RECORDS SUMMARY | 2023-08-14 23:23 | External Medical Summary | Summary of Care ---
Author Name Unknown Organization [facility] Address [address] [place] [address] Phone [phone] Care Team Providers Care Assistant General Manager Name Role Phone Rhys Humphrey MD Primary Care Provide r Reason for Visit * Reason Onset Date Comments [facility]: Maintenance 07/13/2023 Encounter Details Date Type Department Care Team Description 07/13/2023 Scheduled Telephone [facility], [facility] 132 [facility] [place] [address] Coordinator, [facility] 132 [facility] [place] [address] Allergies Active Allergy Reactions Severity Noted Date Comments Adhesive Tape Other (Please comment),Hives High 09/29/2008 Caused welts Dextromethorphan-Gua ifenesin Neuro complications (Please comment) Medium 12/23/2021 Feels lightheaded/"foggy" documented as of this encounter (statuses as of 07/13/2023) Medications Medication Sig Dispensed Refills Start Date [...] before bedtime. 50 Cap 0 01/18/2021 Active Scmdpaw-Vvgxxbsal-Bg nc 333-133-5 MG Oral Tablet Take 1 Tablet by mouth daily. 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 Cancer Staging:Clinical:Stage III- Signed by Martínez Lopes MD on 11/16/2014 Pathologic: Unsigned TIA (transient ischemic attack) 06/24/2018 documented as of this encounter (statuses as of 07/13/2023) Immunizations Name Administration Dates Next Due COVID-19 mRNA, LNP-s, No Pre serve, 2-Dose Series ([employer]) 07/11/2021,11/14/2020,10/24/2020 Covid-19, Mrna, Lnp-s, Pf, B ivalent, 30 Mcg, IM, 12 yrs and above ([employer]) 07/21/2022 Pneumococcal Conjugate Vacc, 13 Valent (Prevnar) 03/16/2015 Pneumococcal Conjugate Vacci ne, 20-valent ([id number]) 07/21/2022 Pneumococcal Polysaccharide PPV23 (Pneumovax) 03/05/2019,07/18/2007 SEASONAL [...] Telephone Encounter - Estee Verde RN - 07/13/2023 12:36 PM EDT Images from the original note were not included. [facility] Telephonic Nurse Follow-Up Call [facility] Subprogram: Focused Care Management (3-9 months) Follow Up Call Type: Routine follow up call / Status Check Acute issue requiring follow-up call: Falls / Gait Instability Objective: 07/03/2023 2:34 PM 06/21/2023 2:32 PM 06/20/2023 8:49 AM 06/13/2023 10:44 AM 06/12/2023 3:45 PM VITALS ACROSS ENCOUNTERS BP 147/62 118/62 199/80 128/52 104/50 Pulse 70 60 76 80 Weight 71 kg 70.8 kg 70 kg BMI 26.76 BMI 26.88 kg/m2 26.78 kg/m2 26.5 kg/m2 Lab Results Component Value Date PROTEIN - [facility] 6.0 07/03/2023 PROTEIN - [facility] 6.0 07/03/2023 WBC AUTO - [facility] 5.74 07/03/2023 Lab Results Component Value Date WBC AUTO - [facility] 5.74 07/03/2023 HGB - [facility] 8.6 (L) 07/03/2023 PLATELET AUTO - [facility] 367 07/03/2023 Lab Results Component Value Date SODIUM - [...] EJECTION FRACTION 61 07/12/2023 Remote Patient Monitoring: [facility] Scale: 152.8lbs Oxygen Needs: NO CHANGE from baseline supplemental oxygen needs DME Needs: NO DME needs identified Medications: No medication or dose adjustments made during acute episode Subjective: Condition Status: No change in symptoms Current Concerns: Spoke with Keisha, states she fell out of bed 2 nights ago, did not get injured but has bruising to her left hip, able to walk without pain, is using her walker at all times. Weight 152.8 lbs this morning. Spoke of having a crappy day, has been intermittently coughing up streaks of blood in her sputum for past couple of days, daughter sent message to Hem/Onc and waiting for them to call her as they always do. Also waiting on Pulmonary for the lung biopsy to get scheduled Keisha is not in any discomfort, is breathing good, using her walker at all times, daughter requests follow up call on Sunday, will add to [place] Triage Disposition: Follow up call scheduled for Sunday per daughter Future Visits Scheduled: Future Appointments-next 60 days Date/Time Provider Specialty Dept Phone 07/16/2023 2:00 PM (Arrive by 1:45 PM) Shane Rowland MD Gynecology Obstetrics [phone] 08/06/2023 12:00 PM [facility] Nurse Triage [place] [facility] [phone] 09/17/2023 9:40 AM (Arrive by 9:25 AM) Marycruz Almazan PA-C Dermatology [phone] 10/03/2023 10:30 AM (Arrive by 10:15 AM) PITER Gordillo Sleep Disorders [phone] 10/05/2023 10:00 AM (Arrive by 9:45 AM) James Cantu DO Pulmonary [phone] 10/16/2023 11:30 AM (Arrive by 11:15 AM) PITER Wills Gastroenterology [phone] 12/10/2023 9:20 AM (Arrive by 9:05 AM) Rhys Humphrey MD Family Medicine [phone] 12/27/2023 11:00 AM (Arrive by 10:45 AM) Mi Neil PA-C Cardiology [phone] 03/18/2024 9:00 AM Nurse Annual Wellness [facility] Ancillary [phone] Estee Verde, RN documented in this encounter Plan of Treatment Upcoming Encounters Date Type Specialty Care Team Description 3 Scheduled Telephone [facility] [address] [place] [address] 3 Office Visit Gynecology Obstetrics Shane Rowland MD [address] [place] [address] 3 Scheduled Telephone [facility] Nurse Triage [address] [place] [address] 3 Hospital Encounter Endoscopy SomersetSangeetha DO [address] [place] [address] 3 Surgery Endoscopy Sangeetha Song DO [address] [place] [address] ESOPHAGOGASTRODUODENOSCOPY (EGD), FLEXIBLE, TRANSORAL, DIAGNOSTIC 3 Office Visit Dermatology Marycruz Almazan PA-C [address] [place] [address] [place] [address] 4 Office Visit Sleep Disorders Sosa Freeman CRNP [address] [place] [address] 4 Office Visit Pulmonary James Cantu, DO [address] [place] [address] 4 Office Visit Gastroenterology Lizzette Silva CRNP [address] [place] [address] 4 Office Visit Family Medicine Rhys Humphrey MD [address] [place] [address] [place] [address] 4 Office Visit Cardiology Mi Neil PA-C [address] [place] [address] 4 Nurse Only Ancillary [place], Nurse Annual [address] [place] [address] Scheduled Procedures Name Priority Associated Diagnoses Date/Ti [...] D LEVEL ONCE IN A LIFETIME-USE SMARTSET# [id number] Completed 06/29/2020, 03/16/2015 Pneumococcal Vaccine: 65+ Years [...] Documents on File Type Date Recorded Patient Bilingual Branch Manager Expl anation POLST 10/15/2019 3:17 PM POLST POLST 03/05/2019 POLST FORM Advance Directives and Living Will 01/27/2013 LIVING WILL Advance Directives and Living Will 01/27/2013 LIVING WILL Power of Tailor Women'S Garment Alteration 01/27/2013 POWER OF A TTORNEY Power of Tailor Women'S Garment Alteration 01/27/2013 POWER OF A TTORNEY Healthcare Agents on File Name Relationship Healthcare Agent Relationship Communication Cydney Benito Other - (no specific identity) Second Alternate Health Care Agent Anyi More Adult Child Health Care Roberth r of Tailor Women'S Garment Alteration Care Teams Assistant General Manager Relationship Specialty Start Date End Date Rhys Humphrey MD [address] [place] [address] [place] [phone] PCP - General Family Medicine 06/09/21 documented as of this encounter
--- OUTSIDE RECORDS SUMMARY | 2023-08-14 23:23 | External Medical Summary | Summary of Care ---
Author Name Unknown Organization [facility] Address [address] [place] [address] Phone [phone] Care Team Providers Care Crap Game Box Person Name Role Phone Rhys Humphrey MD Primary Care Provide r Reason for Visit * Reason Onset Date Comments Appointment 07/13/2023 Encounter Details Date Type Department Care Team Description 07/13/2023 Telephone Hematology/Oncology [facility] [place] [address] [facility] [place] [address] Martínez Lopes MD [address] [place] [address] Appointment Allergies Active Allergy Reactions Severity Noted Date [...] before bedtime. 50 Cap 0 01/18/2021 Active Mjmlaqc-Muggnhlxp-Sp nc 333-133-5 MG Oral Tablet Take 1 Tablet by mouth daily. 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),COPD, group D, by GOLD 2017 classification ([facility]) Inhale by mouth 1 Puff [...] D, by GOLD 2017 classification ([facility]) Inhale 3 mL via nebulizer [...] hronic diastolic congestive heart failure ([facility]) One tablet daily with an extra [...] couch") Medication Regimen o Other: ana luisa day singulair, duonebs Self-Management plan o Prednisone 40mg [...] cards Dyslipidemia, goal LDL below 70 01/31/20 11 Last Assessment & Plan: Feeling better since [...] mRNA, LNP-s, No Pre serve, 2-Dose Series ([employer]) 07/11/2021,11/14/2020,10/24/2020 Covid-19, Mrna, Lnp-s, Pf, B ivalent, 30 Mcg, IM, 12 yrs and above ([employer]) 07/21/2022 Pneumococcal Conjugate Vacc, 13 Valent (Prevnar) 03/16/2015 Pneumococcal Conjugate Vacci ne, 20-valent ([id number]) 07/21/2022 Pneumococcal Polysaccharide PPV23 (Pneumovax) 03/05/2019,07/18/2007 SEASONAL [...] Miscellaneous Notes * Telephone Encounter - ISELA Gomez - 07/13/2023 7:49 AM EDT Pulmonary-please reach out to patient to schedule an appt in regards to History of follicular lymphoma; development of worsening anemia and weight loss; CT C/A/P with new mediastinal, hilar and retroperitoneal lymphadenopathy. Please consider for EBUS with biopsy. Thank you documented in this encounter Plan of Treatment Upcoming Encounters Date Type Specialty Care Team Description 3 Scheduled Telephone [facility] at Business Continuity Specialist , [facility] [address] [place] [address] [phone] (Fax) 3 Office Visit Gynecology Obstetrics Shane Rowland MD [address] [place] [address] 3 Scheduled Telephone [facility] Nurse Triage [address] [place] [address] 3 Hospital Encounter Endoscopy Sangeetha Song DO [address] [place] [address] 3 Surgery Endoscopy Sangeetha Song DO [address] [place] [address] ESOPHAGOGASTRODUODENOSCOPY (EGD), FLEXIBLE, TRANSORAL, DIAGNOSTIC 3 Office Visit Dermatology Marycruz Almazan PA-C [address] [place] [address] [place] [address] 4 Office Visit Sleep Disorders Sosa Freeman CRNP [address] [place] [address] 4 Office Visit Gastroenterology Lizzette Silva CRNP [address] [place] [address] 4 Office Visit Family Medicine Rhys Humphrey MD [address] [place] [address] [place] [address] 4 Office Visit Cardiology Mi Neil PA-C [address] [place] [address] 4 Nurse Only Ancillary Stanton, Nurse Annual [address] [place] [address] Scheduled Procedures Name Priority Associated Diagnoses Date/Ti [...] D LEVEL ONCE IN A LIFETIME-USE SMARTSET# [id number] Completed 06/29/2020, 03/16/2015 Pneumococcal Vaccine: 65+ Years [...] Documents on File Type Date Recorded Patient Ship Wirer Expl anation POLST 10/15/2019 3:17 PM POLST POLST 03/05/2019 POLST FORM Advance Directives and Living Will 01/27/2013 LIVING WILL Advance Directives and Living Will 01/27/2013 LIVING WILL Power of Branch Assistant 01/27/2013 POWER OF A TTORNEY Power of Branch Assistant 01/27/2013 POWER OF A TTORNEY Healthcare Agents on File Name Relationship Healthcare Agent Relationship Communication Cydney Benito Other - (no specific identity) Second Alternate Health Care Agent Anyi More Adult Child Health Care Roberth r of Branch Assistant Care Teams Crap Game Box Person Relationship Specialty Start Date End Date Rhys Humphrey MD [address] [place] [address] [place] [address] PCP - General Family Medicine 06/09/21 documented as of this encounter
--- OUTSIDE RECORDS SUMMARY | 2023-08-14 23:23 | External Medical Summary | Summary of Care ---
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 [facility] Primary Reason for Referral? Other Comments History of follicular lymphoma; development of worsening anemia and weight loss; CT C/A/P with new mediastinal, hilar and retroperitoneal lymphadenopathy. Please consider for EBUS with biopsy. Reason for Visit * Reason Onset Date Comments Test Results Imaging Study 07/12/2023 Encounter Details Date Type Department Care Team Description 07/12/2023 Telephone Hematology/Oncology [place] Arvind Christensen [address] [place] [address] Gris Diaz CRNP [address] [place] [address] Test Results Imaging Study Allergies Active Allergy Reactions Severity Noted Date [...] before bedtime. 50 Cap 0 01/18/2021 Active Yqihesz-Katcpowwl-Os nc 333-133-5 MG Oral Tablet Take 1 Tablet by mouth daily. 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),COPD, group D, by [...] Inhalation Aerosol SolutionIndications: COPD, moderate ([facility]) Inhale 2 Puffs by mouth every 4 [...] D, by GOLD 2017 classification ([facility]) Inhale 3 mL via nebulizer every 6 [...] mRNA, LNP-s, No Pre serve, 2-Dose Series ([employer]) 07/11/2021,11/14/2020,10/24/2020 Covid-19, Mrna, Lnp-s, Pf, B ivalent, 30 Mcg, IM, 12 yrs and above ([employer]) 07/21/2022 Pneumococcal Conjugate Vacc, 13 Valent (Prevnar) 03/16/2015 Pneumococcal Conjugate Vacci ne, 20-valent ([id number]) 07/21/2022 Pneumococcal Polysaccharide PPV23 (Pneumovax) 03/05/2019,07/18/2007 SEASONAL [...] Telephone Encounter - Agatha Lowe RN - 07/13/2023 10:03 AM EDT Called patient who verbalized understanding of results. She asked that I also call her daughter as her daughter manages all of her appointments and had seen her scan results. Attempted to call Anyi- call was answered but hung up. Attempted to call again- left message for return call. * Telephone Encounter - ISELA Gomez - 07/13/2023 7:48 AM EDT Sent referral to pulmonary at . They will reach out to patient to set up an appt. * Telephone Encounter - PITER Shen - 07/12/2023 5:28 PM EDT Patient called to review results of CT C/A/P completed yesterday: IMPRESSION 1. New mediastinal, hilar and retroperitoneal adenopathy. This may represent no lymphoma or metastatic disease. 2. Left lower lobe branching nodularity with a few discrete nodules. Findings may represent infectious/inflammatory process or neoplastic process. 3. Probable interstitial edema. Moderate emphysema Reviewed with Dr. Martínez Lopes. New mediastinal, hilar and retroperitoneal adenopathy present. Recommending pulmonary referral for consideration of EBUS with biopsy. Order placed. Left message for patient to return call. documented in this encounter Plan of Treatment Upcoming Encounters Date Type Specialty Care Team Description 10/13/202 3 Scheduled Telephone [facility] at Quality Assurance Intern , [facility] [address] [place] [address] [phone] (Fax) 3 Office Visit Gynecology Obstetrics Shane Rowland MD [address] [place] [address] 3 Scheduled Telephone [facility] [address] [place] [address] 3 Hospital Encounter Endoscopy Sangeetha Song DO [address] [place] [address] 3 Surgery Endoscopy Sangeetha Song DO [address] [place] [address] ESOPHAGOGASTRODUODENOSCOPY (EGD), FLEXIBLE, TRANSORAL, DIAGNOSTIC 3 Office Visit Dermatology Marycruz Almazan PA-C [address] [place] [address] [place] [address] 4 Office Visit Sleep Disorders Sosa Freeman CRNP [address] [place] [address] 4 Office Visit Gastroenterology Lizzette Silva CRNP [address] [place] [address] 4 Office Visit Family Medicine Rhys Humphrey MD [address] [place] [address] [place] [address] 4 Office Visit Cardiology Mi Neil PA-C [address] [place] [address] 4 Nurse Only Ancillary Stanton Nurse Annual Wellness [address] [place] [address] [place] [address] Scheduled Procedures Name Priority Associated Diagnoses Date/Ti [...] D LEVEL ONCE IN A LIFETIME-USE SMARTSET# [id number] Completed 06/29/2020, 03/16/2015 Pneumococcal Vaccine: 65+ Years [...] as of this encounter Visit Diagnoses Diagnosis 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)- Primary Nodular lymphoma of intrathoracic lymph nodes Normocytic anemia Anemia, unspecified Mediastinal lymphadenopathy Enlargement of lymph nodes Other iron deficiency anemia documented in this encounter Advance Directives Documents on File Type Date Recorded Patient Senior Network Security 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 Expl anation POLST 10/15/2019 3:17 PM POLST POLST 03/05/2019 POLST FORM Advance Directives and Living Will 01/27/2013 LIVING WILL Advance Directives and Living Will 01/27/2013 LIVING WILL Power of Speech And Drama Teacher 01/27/2013 POWER OF A TTORNEY Power of Speech And Drama Teacher 01/27/2013 POWER OF A TTORNEY Healthcare Agents on File Name Relationship Healthcare Agent Relationship Communication Cydney Benito Other - (no specific identity) Second Alternate Health Care Agent Anyi More Adult Child Health Care Roberth r of Speech And Drama Teacher Care Teams Tax Attorney Relationship Specialty Start Date End Date Rhys Humphrey MD [address] [place] [address] [place] [address] PCP - General Family Medicine 06/09/21 documented as of this encounter
--- OUTSIDE RECORDS SUMMARY | 2023-08-14 23:23 | External Medical Summary | Summary of Care ---
Author Name Unknown Organization [facility] Address [address] [place] [address] Phone [phone] Care Team Providers Care Delivery Analyst Name Role Phone Rhys Humphrey MD Primary Care Provide r Reason for Visit * Reason Comments Benefits Administrator Return * Evaluate & Treat - Unlimited Visits (Within 30 days (routine)) - Authorized Specialty Diagnoses / Procedures Referred By Contalexander t Referred To Contact Obstetrics/Gynecology / Gynecology Obstetrics Diagnoses Vaginal irritation Lichen sclerosus et atrophicus Rhys Humphrey MD [address] [place] [address] [place] [address] Referral ID Status Reason Start Date Expiration Date Visits Requested Visits Authorized [id number] Authorized Specialty Services Required 04/12/2023 999 999 Encounter Details Date Type Department Care Team Description 07/16/2023 [facility] [address] [place] [address] Shane Rowland MD [address] [place] [address] Lichen sclerosus* Allergies Active Allergy Reactions Severity Noted Date Comments Adhesive Tape Other (Please comment),Hives High 09/29/2008 Caused welts Dextromethorphan-Gua ifenesin Neuro complications (Please comment) Medium 12/23/2021 Feels lightheaded/"foggy" documented as of this encounter (statuses as of 07/16/2023) Medications Medication Sig Dispensed Refills Start Date [...] before bedtime. 50 Cap 0 01/18/2021 Active Vctuqah-Oryjgiojm-Eq nc 333-133-5 MG Oral Tablet Take 1 Tablet by mouth daily. 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),COPD, group D, by [...] Inhalation Aerosol SolutionIndications: COPD, moderate ([facility]) Inhale 2 Puffs by mouth [...] D, by GOLD 2017 classification ([facility]) Inhale 3 mL via nebulizer [...] as of this encounter (statuses as of 07/16/2023) Active Problems Problem Noted Date Acute serous [...] couch") Medication Regimen o Other: anoro, arnradha, singarikir, chandler Self-Management plan o Prednisone 40mg daily [...] as of this encounter (statuses as of 07/16/2023) Resolved Problems Problem Noted Date Resolved Date [...] as of this encounter (statuses as of 07/16/2023) Immunizations Name Administration Dates Next Due COVID-19 mRNA, LNP-s, No Pre serve, 2-Dose Series ([employer]) 07/11/2021,11/14/2020,10/24/2020 Covid-19, Mrna, Lnp-s, Pf, B ivalent, 30 Mcg, IM, 12 yrs and above ([employer]) 07/21/2022 Pneumococcal Conjugate Vacc, 13 Valent (Prevnar) 03/16/2015 Pneumococcal Conjugate Vacci ne, 20-valent ([id number]) 07/21/2022 Pneumococcal Polysaccharide PPV23 (Pneumovax) 03/05/2019,07/18/2007 SEASONAL [...] Sign Reading Time Taken Comments Blood Pressure 130/52 07/16/2023 1:32 PM EDT Pulse - - Temperature - - Respiratory Rate - - Oxygen Saturation - - Inhaled Oxygen Concentration - - Weight 70.8 kg (156 lb) 07/16/2023 1:32 PM EDT Height 162.6 cm (5' 4") 07/16/2023 1:32 PM EDT Body Mass Index 26.78 07/16/2023 1:32 PM EDT documented in this encounter Progress Notes * Shane Rowland MD - 07/16/2023 2:07 PM EDT Patient Name: Keisha Linares Patient CC: left vulva itching. Pt mcfadden hx of lichen sclerosis Context: (HPI) 82 year old s/p hxof LS. Pt has itching and burning. Not on meds Location: Quality: Severity: Duration: Worsening/improving sympt: Pain level/ Scale: Timing: Associated symptoms: Past Medical Hx: Past Medical History: Diagnosis Date Acute cystitis [...] CXR TIA (transient ischemic attack) Past Surgical Hx: Past Surgical History: Procedure Laterality Date BREAST LESION,OTHER,EXCISION 1994 Breast Lesion Excise CERV;VAG CANCER SCREEN;PEL & B 03/2000 COLONOSCOPY 03/03/2013 diverticulosis, polyps, internal hemorrhoids COLONOSCOPY, DIAGNOSTIC (RECTUM) 07/31/2017 diverticulosis/[facility] COLONOSCOPY, DIAGNOSTIC (RECTUM) 09/09/2021 diverticulosis / [facility] COLORECTAL CANCER SCREEN; NOT AT RISK 11/[address] ABDOMEN/PELVIS 04/02/2013 mesenteric lymphadenopathy concerning for lymphoma DIGITAL RECTAL EXAM,ANNUAL 03/2000 EGD, FLEXIBLE, DIAGNOSTIC 03/03/2013 mild gastritis EGD, FLEXIBLE, DIAGNOSTIC 07/31/2017 normal bx, hiatal hernia/[facility] EGD, FLEXIBLE, DIAGNOSTIC 10/14/2021 reflux esophagitis, hiatal hernia / [facility] EGD, FLEXIBLE, DIAGNOSTIC 09/09/2021 hiatal hernia / [facility] HEMORRHOIDECTOMY, SIMPLE, 1 COLUMN 1989 Hemorrhoidectomy,Int/Ext,Simple MAMMOGRAM SCREENING-BILATERAL 03/2000 SIGMOIDOSCOPY, DIAGNOSTIC 1996 SPIROMETRY B/A BRONCHODILATOR 01/06/2005 obstructive airway disease THROMBOENDARECTOMY W/PATCH,NECK INCISION Right carotid endarterectomy done in [place] TOTAL ABD HYSTERECTOMY W/WO REMOVAL OF TUBE(S) 1974 non cancer reasons TOTAL HIP REPLACEMENT & PROSTHESIS 08/19/2008 left-dr ilay gamboa Social Hx: Social History Socioeconomic History Marital status: Occupational History 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 Employer: [email or web address] [place] [address] Tobacco Use Smoking status: Former Packs/day: 0.50 Years: 46.00 Pack years: 23.00 Types: Cigarettes Quit date: 10/01/2001 Years since quittin.8 Smokeless tobacco: Never Vaping Use Vaping Use: Never used Substance and Sexual Activity Alcohol use: No Drug use: No Sexual activity: Yes Partners: Male Social History Narrative 10/2021 Social Determinants of Health Food Insecurity: No Food Insecurity Worried About Running Out of Food in the Last Year: Never true Ran Out of Food in the Last Year: Never true Allergy: Review of patient's allergies indicates: Allergen Reactions Adhesive Tape Other (Please comment) and Hives Caused welts Ginger Grossman Dm [Dextromethorphan-Guaifenesin] Neuro complications (Please comment) Feels lightheaded/"foggy" Family HX: Family History Problem Relation Age of Onset Stroke Mother CVA Stroke Father CVA ROS: REVIEW OF SYSTEMS CONSTITUTIONAL ROS: No change in weight, No weakness, No fatigue and No fevers, sweats, or chills PULMONARY ROS: No cough, sputum, or hemoptysis, No wheezing, No shortness or breath and No recent change in breathing CARDIOVASCULAR ROS: No chest pain, No shortness of breath, No dyspnea on exertion, No orthopnea, Noparoxysmal nocturnal dyspnea, No edema, No palpitations and No syncope BREAST ROS: No new breast lumps or masses, No severe breast pain, No nipple discharge, No recent change in shape/color and Performs self breast exam ENDOCRINE ROS; No change in wt gain, hair loss or bowel habits, malaise or fatigue. No polyuria, polyphagia polydipsia GASTROINTESTINAL ROS: No abdominal pain, No change in bowel habits, No significant heartburn, No significant change in appetite, No nausea, vomiting, diarrhea, or constipation, No hematemesis, No blood in stools or black tarry stools, No abdominal bloating or early satiety and No dysphagia GENITO-URINARY FEMALE ROS: No STDs, No dysuria, No frequency, No incontinence, No urgency and No vaginal discharge and + for irreg menses. ALL OTHERS REVIEWED AND ALL OTHERS NEGATIVE LABS: PHYSICAL EXAMINATION Well developed. Well nourishes white female in no acute distress Vital signs BP 130/52 | Ht 1.626 m (5' 4") | Wt 70.8 kg (156 lb) | BMI 26.78 kg/m | BSA 1.79 m Pelvic: Atrophic vulva vagina cigarette paper appearance of vulva A/P Lichen sclerosis Pt hah ad bx dx in the past thru dermatology Rx of clobetesol I spent a total of 30-39 minutes (exact time 33 mins) on the date of service in preparation, delivery, and documentation of the care provided to Keisha Linares excluding any time spent in the performance of separately billed services. documented in this encounter Nursing Notes * Elise Bennett LPN - 07/16/2023 1:42 PM EDT Referral from PCP for lichens. Calmoseptine rx from PCP, no relief. Has tried premarin in the past as well as other topicals without relief. documented in this encounter Plan of Treatment Upcoming Encounters Date Type Specialty Care Team Description 3 Telemedicine Pulmonary Prosper Bales MD [address] [facility] [place] [address] Cart, Telemed Pulm Gw [address] [place] [address] 3 [facility]uled Telephone [facility] Nurse Triage [address] [place] [address] 3 Hospital Encounter Endoscopy Sangeetha Song DO [address] [place] [address] 3 Surgery Endoscopy Sangeetha Song DO [address] [place] [address] ESOPHAGOGASTRODUODENOSCOPY (EGD), FLEXIBLE, TRANSORAL, DIAGNOSTIC 3 Office Visit Dermatology Marycruz Almazan PA-C [address] [place] [address] [place] [address] 4 Office Visit Sleep Disorders Sosa Freeman CRNP [address] [place] [address] 4 Office Visit Gastroenterology Lizzette Silva CRNP [address] [place] [address] 4 Office Visit Family Medicine Rhys Humphrey MD [address] [place] [address] [place] [address] 4 Office Visit Cardiology Mi Neil PA-C [address] [place] [address] 4 Nurse Only Ancillary Nurse Stanton Annual [facility]ness [address] [place] [address] [place] [address] Scheduled Procedures Name Priority Associated Diagnoses Date/Ti [...] D LEVEL ONCE IN A LIFETIME-USE SMARTSET# [id number] Completed 06/29/2020, 03/16/2015 Pneumococcal Vaccine: 65+ Years [...] as of this encounter Visit Diagnoses Diagnosis Lichen sclerosus- Primary Circumscribed scleroderma Other iron deficiency anemia documented in this encounter Advance Directives Documents on File Type Date Recorded Patient Complaint Adjuster Expl anation POLST 10/15/2019 3:17 PM POLST POLST 03/05/2019 POLST FORM Advance Directives and Living Will 01/27/2013 LIVING WILL Advance Directives and Living Will 01/27/2013 LIVING WILL Power of Ball Winder 01/27/2013 POWER OF A TTORNEY Power of Ball Winder 01/27/2013 POWER OF A TTORNEY Healthcare Agents on File Name Relationship Healthcare Agent Relationship Communication Cydney Benito Other - (no specific identity) Second Alternate Health Care Agent Anyi More Adult Child Health Care Roberth r of Ball Winder Care Teams Delivery Analyst Relationship Specialty Start Date End Date Rhys Humphrey MD [address] [place] [address] [place] [address] PCP - General Family Medicine 06/09/21 documented as of this encounter
--- OUTSIDE RECORDS SUMMARY | 2023-08-14 23:23 | External Medical Summary | Summary of Care ---
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 50 Cap 0 01/18/2021 Active Vbusysb-Epeecegug-Qf nc 333-133-5 MG Oral Tablet Take 1 Tablet by mouth daily. 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) Inhale 2 Puffs by mouth every [...] COPD, group D, by GOLD 2017 classification ([facility]) Inhale 3 mL via nebulizer every [...] mRNA, LNP-s, No Pre serve, 2-Dose Series (Any.DO) 07/11/2021,11/14/2020,10/24/2020 Covid-19, Mrna, Lnp-s, Pf, B ivalent, 30 Mcg, IM, 12 yrs and above (Pfizer) 07/21/2022 Pneumococcal Conjugate Vacc, 13 Valent (Prevnar) 03/16/2015 Pneumococcal Conjugate Vacci ne, 20-valent ([id number]) 07/21/2022 Pneumococcal Polysaccharide PPV23 (Pneumovax) 03/05/2019,07/18/2007 SEASONAL [...] Team Description 3 Scheduled Telephone [facility] Technical Education Teacher , [facility] Field [address] [place] [address] 3 Office Visit Gynecology Obstetrics Shane Rowland MD [address] [place] [place] [address] 3 Scheduled Telephone [facility] Nurse Triage [address] [place] [phone] (Fax) 3 Hospital Encounter Endoscopy Sangeetha Song DO [address] [place] [address] 3 Surgery Endoscopy Sangeetha Song DO [address] [place] [address] ESOPHAGOGASTRODUODENOSCOPY (EGD), FLEXIBLE, TRANSORAL, DIAGNOSTIC 3 Office Visit Dermatology Marycruz Almazan PA-C [address] [place] [address] [place] [address] 4 Office Visit Sleep Disorders Sosa Freeman CRNP [address] [place] [address] 4 Office Visit Gastroenterology Lizzette Silva CRNP [address] [place] [address] 4 Office Visit Family Medicine Rhys Humphrey MD [address] [place] [address] [place] [address] 4 Office Visit Cardiology Mi Neil PA-C [address] [place] [address] 4 Nurse Only Ancillary Stanton, Nurse Annual [address] [place] [address] Scheduled Procedures Name Priority Associated Diagnoses Date/Ti [...] D LEVEL ONCE IN A LIFETIME-USE SMARTSET# [id number] Completed 06/29/2020, 03/16/2015 Pneumococcal Vaccine: 65+ Years [...] Documents on File Type Date Recorded Patient 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 Store Associate Expl anation POLST 10/15/2019 3:17 PM POLST POLST 03/05/2019 POLST FORM Advance Directives and Living Will 01/27/2013 LIVING WILL Advance Directives and Living Will 01/27/2013 LIVING WILL Power of Monument Installer 01/27/2013 POWER OF A TTORNEY Power of Monument Installer 01/27/2013 POWER OF A TTORNEY Healthcare Agents on File Name Relationship Healthcare Agent Relationship Communication Cydney Benito Other - (no specific identity) Second Alternate Health Care Agent Anyi More Adult Child Health Care Roberth r of Monument Installer Care Teams Emergency Planner Relationship Specialty Start Date End Date Rhys Humphrey MD [address] [place] [address] [place] [address] PCP - General Family Medicine 06/09/21 documented as of this encounter
--- OUTSIDE RECORDS SUMMARY | 2023-08-14 23:23 | External Medical Summary | Summary of Care ---
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 50 Cap 0 01/18/2021 Active Icbkmfe-Bxxwaaudd-Lg nc 333-133-5 MG Oral Tablet Take 1 Tablet by mouth daily. 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),COPD, group D, by GOLD [...] MCG/ACT Inhalation Aerosol SolutionIndications: COPD, moderate ([facility]) Inhale 2 Puffs by mouth every 4 [...] mRNA, LNP-s, No Pre serve, 2-Dose Series ([employer]) 07/11/2021,11/14/2020,10/24/2020 Covid-19, Mrna, Lnp-s, Pf, B ivalent, 30 Mcg, IM, 12 yrs and above (Pfizer) 07/21/2022 Pneumococcal Conjugate Vacc, 13 Valent (Prevnar) 03/16/2015 Pneumococcal Conjugate Vacci ne, 20-valent ([id number]) 07/21/2022 Pneumococcal Polysaccharide PPV23 (Pneumovax) 03/05/2019,07/18/2007 SEASONAL [...] Miscellaneous Notes * Telephone Encounter - ISELA Delgadillo - 07/13/2023 10:08 AM EDT Daughter Anyi is calling in for her mom, patient can't hear. I did transfer her to pulmonary to [facility]. Please call her back to review results. * Telephone Encounter - Agatha Lowe RN [...] Team Description 3 Scheduled Telephone [facility] Grease Renderer , [facility] Field [address] [place] [address] 3 Office Visit Gynecology Obstetrics Shane Rowland MD [address] [place] [address] 3 Scheduled Telephone [facility] Nurse Triage [address] [place] [address] 3 Hospital Encounter Endoscopy Sangeetha Song DO [address] [place] [address] 3 Surgery Endoscopy Sangeetha Song DO [address] [place] [address] ESOPHAGOGASTRODUODENOSCOPY (EGD), FLEXIBLE, TRANSORAL, DIAGNOSTIC 3 Office Visit Dermatology Marycruz Almazan PA-C [address] [place] [address] [place] [address] 4 Office Visit Sleep Disorders Sosa Freeman CRNP [address] [place] [address] 4 Office Visit Gastroenterology Lizzette Silva CRNP [address] [place] [address] 4 Office Visit Family Medicine Rhys Humphrey MD [address] [place] [address] [place] [address] 4 Office Visit Cardiology Mi Neil PA-C [address] [place] [address] 4 Nurse Only Ancillary Movalley, Nurse Annual Wellness [address] [place] [address] [place] [address] Scheduled Procedures Name Priority Associated Diagnoses Date/Ti [...] D LEVEL ONCE IN A LIFETIME-USE SMARTSET# [id number] Completed 06/29/2020, 03/16/2015 Pneumococcal Vaccine: 65+ Years [...] Documents on File Type Date Recorded Patient Rate And Cost Analyst Expl anation POLST 10/15/2019 3:17 PM POLST POLST 03/05/2019 POLST FORM Advance Directives and Living Will 01/27/2013 LIVING WILL Advance Directives and Living Will 01/27/2013 LIVING WILL Power of Plating Foreman 01/27/2013 POWER OF A TTORNEY Power of Plating Foreman 01/27/2013 POWER OF A TTORNEY Healthcare Agents on File Name Relationship Healthcare Agent Relationship Communication Cydney Bentio Other - (no specific identity) Second Alternate Health Care Agent Anyi More Adult Child Health Care Roberth r of Plating Foreman Care Teams Field Service Coordinator Relationship Specialty Start Date End Date Rhys Humphrey MD [address] [place] [address] [place] [address] PCP - General Family Medicine 06/09/21 documented as of this encounter
--- OUTSIDE RECORDS SUMMARY | 2023-08-14 23:23 | External Medical Summary | Summary of Care ---
Author Name Unknown Organization [facility] Address [address] [place] [address] Phone [phone] Care Team Providers Care Pressure Welder Name Role Phone Rhys Humphrey MD Primary Care Provide r Reason for Visit * Reason Onset Date Comments Appointment 07/13/2023 Encounter Details Date Type Department Care Team Description 07/13/2023 Telephone Hematology/Oncology [facility] [place] [address] [facility] [place] [address] Martínez Lopes MD [address] [place] [address] Appointment Allergies Active Allergy Reactions Severity Noted [...] before bedtime. 50 Cap 0 01/18/2021 Active Acnoepa-Yhrucyifh-Uc nc 333-133-5 MG Oral Tablet Take 1 Tablet by mouth daily. 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 She states that she spoke to a manager pediatric who said that patient could not see a global account executive until 10/05/22. She states that she would be willing to take her mom elsewhere ([facility] to get a sooner appt. Pulm: please reach out to patients daughter regarding appt. [facility] is preferred location, but also willing to go to [facility] or [facility]. Thanks! * Telephone Encounter - ISELA Gomez - [...] Team Description 3 Scheduled Telephone [facility] Tooth Clerk , [facility] Field [address] [place] [address] 3 Office Visit Gynecology Obstetrics Shane Rowland MD [address] [place] [address] 3 Scheduled Telephone [facility] Nurse Triage [address] [place] [address] 3 Hospital Encounter Endoscopy Sangeetha Song DO [address] [place] [address] 3 Surgery Endoscopy Sangeetha Song DO [address] [place] [address] ESOPHAGOGASTRODUODENOSCOPY (EGD), FLEXIBLE, TRANSORAL, DIAGNOSTIC 3 Office Visit Dermatology Marycruz Almazan PA-C [address] [place] [address] [place] [address] 4 Office Visit Sleep Disorders Sosa Freeman CRNP [address] [place] [address] 4 Office Visit Pulmonary James Cantu, DO [address] [place] [address] 4 Office Visit Gastroenterology Lizzette Silva CRNP [address] [place] [address] 4 Office Visit Family Medicine Rhys Humphrey MD [address] [place] [address] [place] [address] 4 Office Visit Cardiology Mi Neil PA-C [address] [place] [address] 4 Nurse Only Ancillary Movalley, Nurse Annual Wellness [address] [place] [address] [place] [address] Scheduled Procedures Name Priority Associated Diagnoses Date/Ti [...] D LEVEL ONCE IN A LIFETIME-USE SMARTSET# [id number] Completed 06/29/2020, 03/16/2015 Pneumococcal Vaccine: 65+ Years [...] Documents on File Type Date Recorded Patient General Office Assistant Expl anation POLST 10/15/2019 3:17 PM POLST POLST 03/05/2019 POLST FORM Advance Directives and Living Will 01/27/2013 LIVING WILL Advance Directives and Living Will 01/27/2013 LIVING WILL Power of General Contractor 01/27/2013 POWER OF A TTORNEY Power of General Contractor 01/27/2013 POWER OF A TTORNEY Healthcare Agents on File Name Relationship Healthcare Agent Relationship Communication Cydney Benito Other - (no specific identity) Second Alternate Health Care Agent Anyi More Adult Child Health Care Roberth r of General Contractor Care Teams Pressure Welder Relationship Specialty Start Date End Date Rhys Humphrey MD [address] [place] [address] [place] [address] PCP - General Family Medicine 06/09/21 documented as of this encounter
--- OUTSIDE RECORDS SUMMARY | 2023-08-14 23:23 | External Medical Summary | Summary of Care ---
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 50 Cap 0 01/18/2021 Active Vumaiig-Fjlfwnhfz-Ai nc 333-133-5 MG Oral Tablet Take 1 Tablet by mouth daily. 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),COPD, group D, by GOLD [...] Base) MCG/ACT Inhalation Aerosol SolutionIndications: COPD, moderate ([facility]) Inhale 2 Puffs by mouth every 4 [...] mRNA, LNP-s, No Pre serve, 2-Dose Series ([employer]) 07/11/2021,11/14/2020,10/24/2020 Covid-19, Mrna, Lnp-s, Pf, B ivalent, 30 Mcg, IM, 12 yrs and above (Pfizer) 07/21/2022 Pneumococcal Conjugate Vacc, 13 Valent (Prevnar) 03/16/2015 Pneumococcal Conjugate Vacci ne, 20-valent ([id number]) 07/21/2022 Pneumococcal Polysaccharide PPV23 (Pneumovax) 03/05/2019,07/18/2007 SEASONAL [...] Encounter - Agatha Lowe RN - 07/13/2023 11:02 AM EDT Called and reviewed results with Anyi, she verbalized understanding. Message sent to pul in other encounter as Anyi states that she would be willing to take her motherto alternate location to get a sooner appt. * Telephone Encounter - ISELA Delgadillo - 07/13/2023 10:08 AM EDT Daughter Anyi is calling in for her mom, patient can't hear. I did transfer her to pulmonary to [facility]. Please call her back to review results. [...] Team Description 3 Scheduled Telephone [facility] Balance Truer , [facility] Field [address] [place] [address] 3 Office Visit Gynecology Obstetrics Shane Rowland MD [address] [place] [address] 3 Scheduled Telephone [facility] Nurse Triage [address] [place] [address] 3 Hospital Encounter Endoscopy Sangeetha Song DO [address] [place] [address] 3 Surgery Endoscopy Sangeetha Song DO [address] [place] [address] ESOPHAGOGASTRODUODENOSCOPY (EGD), FLEXIBLE, TRANSORAL, DIAGNOSTIC 3 Office Visit Dermatology Marycruz Almazan PA-C [address] [place] [address] [place] [address] 4 Office Visit Sleep Disorders Sosa Freeman CRNP [address] [place] [address] 4 Office Visit Pulmonary James Cantu, DO [address] [place] [address] 4 Office Visit Gastroenterology Lizzette Silva CRNP [address] [place] [address] 4 Office Visit Family Medicine Rhys Humphrey MD [address] [place] [address] [place] [address] 4 Office Visit Cardiology Mi Neil PA-C [address] [place] [address] 4 Nurse Only Ancillary Movalley, Nurse Annual Wellness [address] [place] [address] [place] [address] Scheduled Procedures Name Priority Associated Diagnoses Date/Ti al ESOPHAGOGASTRODUODENOSCOPY ( EGD), FLEXIBLE, TRANSORAL, DIAGNOSTIC Other [...] (REFER TO SMARTSET #[id number]) 01/23/2021 COVID-19 Vaccine (2022-24 season) 2023 07/21/2022, 08/01/2021, 07/11/2021, Additional history exists Depression Screening 03/16/2024 03/16/2023 GFR 07/03/2024 07/03/2023, 06/01, 06/07/2023, Additional history exists O2 ASSESSMENT COMPLETED IN PAST YEAR FOR COPD 07/03/2024 07/03/2023 Albumin/Creatinine Ratio 04/28/2025 04/28/2022 DTaP,Tdap,and Td Vaccines (3 - Td or Tdap) 09/17/2029 09/17/2019, 08/10/2011, 10/01/2001 Zoster Vaccines Completed 04/25/2020, 08/31, 07/22/2012 VITAMIN D LEVEL ONCE IN A LIFETIME-USE SMARTSET# [id number] Completed 06/29/2020, 03/16/2015 Pneumococcal Vaccine: 65+ Years [...] Documents on File Type Date Recorded Patient Commercial Collector Expl anation POLST 10/15/2019 3:17 PM POLST POLST 03/05/2019 POLST FORM Advance Directives and Living Will 01/27/2013 LIVING WILL Advance Directives and Living Will 01/27/2013 LIVING WILL Power of Enterprise Application Analyst 01/27/2013 POWER OF A TTORNEY Power of Enterprise Application Analyst 01/27/2013 POWER OF A TTORNEY Healthcare Agents on File Name Relationship Healthcare Agent Relationship Communication Cydney Benito Other - (no specific identity) Second Alternate Health Care Agent Anyi More Adult Child Health Care Roberth r of Enterprise Application Analyst Care Teams Nanny/Household Manager Relationship Specialty Start Date End Date Rhys Humphrey MD [address] [place] [address] [place] [address] PCP - General Family Medicine 06/09/21 documented as of this encounter
--- OUTSIDE RECORDS SUMMARY | 2023-08-14 23:23 | External Medical Summary | Summary of Care ---
Author Name Unknown Organization [facility] Address [address] [place] [address] Phone [phone] Care Team Providers Care English Lecturer Name Role Phone Rhys Humphrey MD Primary Care Provide r Reason for Visit * Reason Onset Date Comments Appointment 07/13/2023 Encounter Details Date Type Department Care Team Description 07/13/2023 Telephone Hematology/Oncology [facility] [place] [address] [facility] [place] [address] Martínez Lopes MD [address] [place] [address] Appointment Allergies Active Allergy Reactions Severity Noted [...] before bedtime. 50 Cap 0 01/18/2021 Active Tpzpvqd-Jppdibkdo-Tk nc 333-133-5 MG Oral Tablet Take 1 Tablet by mouth daily. 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),COPD, group D, by GOLD [...] Tablet (Lasix)Indications:C hronic diastolic congestive heart failure ([facility]) One tablet daily with an [...] mRNA, LNP-s, No Pre serve, 2-Dose Series ([employer]) 07/11/2021,11/14/2020,10/24/2020 Covid-19, Mrna, Lnp-s, Pf, B ivalent, 30 Mcg, IM, 12 yrs and above ([employer]) 07/21/2022 Pneumococcal Conjugate Vacc, 13 Valent (Prevnar) 03/16/2015 Pneumococcal Conjugate Vacci ne, 20-valent ([id number]) 07/21/2022 Pneumococcal Polysaccharide PPV23 (Pneumovax) 03/05/2019,07/18/2007 SEASONAL [...] encounter Miscellaneous Notes * Telephone Encounter - Angelika Aleman - 07/13/2023 2:46 PM EDT Spoke to Patient's daughter and offered telepulmonary appointment at [facility] for sooner appointment. Pt's daughter agreed and is scheduled for July 23. * Telephone Encounter - Agatha Lowe RN - 07/13/2023 11:00 AM EDT Patients daughter aware of results. She states that she spoke to a master scheduler who said that patient could not see a rubber factory worker until 10/05/22. She states that she would be willing to take her mom elsewhere ([facility] [place]) to get a sooner appt. Pulm: please reach out to patients daughter regarding appt. [facility] is preferred location, but also willing to go to [facility] or [place]. Thanks! * Telephone Encounter - ISELA Gomez [...] Encounters Date Type Specialty Care Team Description 07/16/20 Scheduled Telephone [facility] Nurse Triage [address] [place] [address] 07/16/20 Office Visit Gynecology Obstetrics Shane Rowland MD [address] [place] [address] 07/23/20 Telemedicine Pulmonary James Cantu M, DO [address] [place] [address] Cart, Telemed Pulm Gw [address] [place] [address] 08/06/20 Scheduled Telephone [facility] Nurse Triage [address] [place] [address] 08/10/20 23 Hospital Encounter Endoscopy Duncan Sangeethafrancisco javier Gutiérrez, DO [address] [place], [place] [address] 08/10/20 23 Surgery Endoscopy Luis Songfrancisco javier Gutiérrez, DO [address] [place], [place] [address] ESOPHAGOGASTRODUODENOSCOPY (EGD), FLEXIBLE, TRANSORAL, DIAGNOSTIC 09/17/20 23 Office Visit Dermatology Marycruz Almazan PA-C [address] [place] [address] [place] [address] 10/03/19 24 Office Visit Sleep Disorders Sosa Freeman CRNP [address] [place] [address] 10/05/19 24 Office Visit Pulmonary James Cantu, DO [address] [place] [address] 10/16/19 24 Office Visit Gastroenterology Lizzette Silva CRNP [address] [place] [address] 12/10/19 24 Office Visit Family Medicine Rhys Humphrey MD [address] [place] [address] [place] [address] 12/27/19 24 Office Visit Cardiology Mi Neil PA-C [address] [place], [place] [address] 03/18/20 24 Nurse Only Ancillary Movalley, Nurse Annual Wellness [address] [place] [address] [place] [address] Scheduled Procedures Name Priority Associated Diagnoses Date/Ti [...] D LEVEL ONCE IN A LIFETIME-USE SMARTSET# [id number] Completed 06/29/2020, 03/16/2015 Pneumococcal Vaccine: 65+ Years [...] Documents on File Type Date Recorded Patient Nude Model Expl anation POLST 10/15/2019 3:17 PM POLST POLST 03/05/2019 POLST FORM Advance Directives and Living Will 01/27/2013 LIVING WILL Advance Directives and Living Will 01/27/2013 LIVING WILL Power of Joinery Patternmaker 01/27/2013 POWER OF A TTORNEY Power of Joinery Patternmaker 01/27/2013 POWER OF A TTORNEY Healthcare Agents on File Name Relationship Healthcare Agent Relationship Communication Cydney Benito Other - (no specific identity) Second Alternate Health Care Agent Anyi More Adult Child Health Care Roberth r of Joinery Patternmaker Care Teams English Lecturer Relationship Specialty Start Date End Date Rhys Humphrey MD [address] [place] [address] [place] [address] PCP - General Family Medicine 06/09/21 documented as of this encounter
--- OUTSIDE RECORDS SUMMARY | 2023-08-14 23:24 | External Medical Summary | Summary of Care ---
Author Name Unknown Organization [facility] Address [address] [place] [address] Phone [phone] Care Team Providers Care Air Transport Professionals Name Role Phone Rhys Humphrey MD Primary Care Provide r Reason for Visit * Reason Onset Date Comments [facility]: Maintenance 07/09/2023 Encounter Details Date Type Department Care Team Description 07/09/2023 Telephone [facility], [facility] [address] [place] [address] [facility], Nurse [facility] [address] [place] [address] [facility]: Maintenance Allergies Active Allergy Reactions Severity Noted Date Comments Adhesive Tape Other (Please comment),Hives High 09/29/2008 Caused welts Dextromethorphan-Gua ifenesin Neuro complications (Please comment) Medium 12/23/2021 Feels lightheaded/"foggy" documented as of this encounter (statuses as of 07/09/2023) Medications Medication Sig Dispensed Refills Start Date [...] Each 0 11/11/2019 Active Nebulizers (NEBULIZER COMPRESSOR) MISCIndications: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 Use as directed. 1 Each 1 11/17/2019 Active Iron 325 (65 Fe) MG Oral Tablet Take 1 Tablet by mouth daily. 0 Active Cranberry 500 MG Oral Capsule Take 1 Capsule by mouth in the morning and 1 Capsule before bedtime. 50 Cap 0 01/18/2021 Active Lscouir-Fldijnutd-H inc 333-133-5 MG Oral Tablet Take 1 Tablet by mouth daily. 0 Active Anoro Ellipta 62.5-25 MCG/INH Inhalation Aerosol Powder Breath Activated (umeclidinium-vilan terol)Indications:C OPD, moderate (HCC),COPD, group D, by GOLD 2017 classification ([facility]) Inhale by mouth 1 Puff in [...] for Dizziness. 30 Tablet 0 03/16/2023 Active Gabapentin 300 MG Oral Capsule (Neurontin)Indicati ons:Peripheral polyneuropathy,Pain in both lower extremities Take 3 Capsules by mouth every night at bedtime. 90 Capsule 3 03/16/2023 Active Ipratropium-Albuter ol 0.5-2.5 (3) MG/3ML Inhalation Solution (Duoneb)Indications :COPD, group D, by GOLD 2017 classification ([facility]) Inhale 3 mL via nebulizer every [...] 06/07/2023 Active Furosemide 40 MG Oral Tablet (Lasix)Indications: [...] mouth daily. 180 Tablet 1 07/09/2023 Active Losartan Potassium 50 MG Oral Tablet (Cozaar)Indications :HTN, goal below 140/90 Take 2 Tablets by mouth daily. 180 Tablet 1 04/11/2023 3 Discontinu ed(Refill) documented as of this encounter (statuses as of 07/09/2023) Active Problems Problem Noted Date Acute serous [...] as of this encounter (statuses as of 07/09/2023) Resolved Problems Problem Noted Date Resolved Date [...] as of this encounter (statuses as of 07/09/2023) Immunizations Name Administration Dates Next Due COVID-19 mRNA, LNP-s, No Pre serve, 2-Dose Series (Agolo) 07/11/2021,11/14/2020,10/24/2020 Covid-19, Mrna, Lnp-s, Pf, B ivalent, 30 Mcg, IM, 12 yrs and above (Agolo) 07/21/2022 Pneumococcal Conjugate Vacc, 13 Valent (Prevnar) 03/16/2015 Pneumococcal Conjugate Vacci ne, 20-valent ([id number]) 07/21/2022 Pneumococcal Polysaccharide PPV23 (Pneumovax) 03/05/2019,07/18/2007 SEASONAL [...] Telephone Encounter - Denise Pittman LPN - 07/09/2023 12:03 PM EDT Call to patient with [facility] recommemdations Follow up call placed * Addendum Note - Hunter Sheffield MD - 07/09/2023 11:54 AM EDTAddended by: HUNTER SHEFFIELD on: 07/09/2023 11:54 AM Modules accepted: Orders * Telephone Encounter - uHnter Sheffield MD - 07/09/2023 11:53 AM EDT Symptomatic hypotension Rec: Cut losartan to 50 mg daily Continue to monitor Hunter Sheffield MD, MSPC, [place], FAAFP Mail List Processor [facility] Available on MDCapsule * Telephone Encounter - Denise Pittman LPN - 07/09/2023 9:38 AM EDT Images from the original note were not included. [facility] Remote Patient Monitoring Able to contact patient: Trigger type: Abnormal reading(s): AMC (Advanced Monitored Caregiving): Blood Pressure Cuff: Blood pressure per cuff: 106/54 Symptom review: weakness Diet Reviewed: N/A Fluid Intake Reviewed: N/A Self-Management Plan Reviewed: Red Flags: requiring more oxygen at night, coughing up yellow green mucous, swelling in legs feet Risk assignment recommendation: Moderate risk findings (check [...] 90 WITH symptoms Additional risk selection justification: Patient states just feels weak when BP gets this low, asking about adjustment to BP medication. Denies headaches, dizziness, SOB palpitations or chest pain She states will increase fluids today Overall risk and identified plan: Moderate risk: Route to RNCM (Registered Nurse Student Activities Director) and Advance Practitioner Route to RMC (Remote Medical Coordinator) documented in this encounter Plan of Treatment Upcoming Encounters Date Type Specialty Care Team Description 3 Imaging Radiology 3 Cardiac Studies Cardiac Studies 3 Office Visit Gynecology Obstetrics Shane Rowland MD [address] [place] [address] 3 Scheduled Telephone [facility] Nurse Triage [address] [place] [address] 3 Hospital Encounter Endoscopy Sangeetha Song DO [address] [place] [address] 3 Surgery Endoscopy Sangeetha Song DO [address] [place] [address] ESOPHAGOGASTRODUODENOSCOPY (EGD), FLEXIBLE, TRANSORAL, DIAGNOSTIC 3 Office Visit Dermatology Marycruz Almazan PA-C [address] [place] [address] [place] [address] 4 Office Visit Sleep Disorders Sosa Freeman CRNP [address] [place] [address] 4 Office Visit Gastroenterology Lizzette Silva CRNP [address] [place] [address] 4 Office Visit Family Medicine Rhys Humphrey MD [address] [place] [address] [place] [address] 4 Office Visit Cardiology Mi Neil PA-C [address] [place] [address] 4 Nurse Only Ancillary Stanton, Nurse Annual Wellness [address] [place] [address] [place] [address] Scheduled Procedures Name Priority Associated Diagnoses Date/Ti [...] D LEVEL ONCE IN A LIFETIME-USE SMARTSET# 36566 Completed 06/29/2020, 03/16/2015 Pneumococcal Vaccine: 65+ Years [...] as of this encounter Visit Diagnoses Diagnosis HTN, goal below 140/90 Unspecified essential hypertension Other iron deficiency anemia documented in this encounter Advance Directives Documents on File Type Date Recorded Patient Instructional Coordinator Expl anation POLST 10/15/2019 3:17 PM POLST POLST 03/05/2019 POLST FORM Advance Directives and Living Will 01/27/2013 LIVING WILL Advance Directives and Living Will 01/27/2013 LIVING WILL Power of Mortising Machine Operator 01/27/2013 POWER OF A TTORNEY Power of Mortising Machine Operator 01/27/2013 POWER OF A TTORNEY Healthcare Agents on File Name Relationship Healthcare Agent Relationship Communication Cydney Benito Other - (no specific identity) Second Alternate Health Care Agent Anyi More Adult Child Health Care Roberth kenneth of Mortising Machine Operator Care Teams Air Transport Professionals Relationship Specialty Start Date End Date Rhys Humphrey MD [address] [place] [address] [place] [address] PCP - General Family Medicine 06/09/21 documented as of this encounter
--- OUTSIDE RECORDS SUMMARY | 2023-08-14 23:24 | External Medical Summary | Summary of Care ---
Author Name Unknown Organization [facility] Address [address] [place] [address] Phone [phone] Care Team Providers Care Infectious Disease Technician Name Role Phone Rhys Humphrey MD Primary Care Provide r Reason for Visit * Reason Comments eRx-Medication Refill Encounter Details Date Type Department Care Team Description 07/10/2023 Refill Family Medicine [address] [place] [address] Rhys Humphrey MD [address] [place] [address] [place] [address] Peripheral polyneuropathy; Pain in both lower extremities Allergies Active Allergy Reactions Severity Noted Date Comments Adhesive Tape Other (Please comment),Hives High 09/29/2008 Caused welts Dextromethorphan-Gua ifenesin Neuro complications (Please comment) Medium 12/23/2021 Feels lightheaded/"foggy" documented as of this encounter (statuses as of 07/11/2023) Medications Medication Sig Dispensed Refills Start Date End Date Status FISH OIL 1000 MG PO CAPS Take 1 Capsule by mouth in the morning. 0 Active Multiple Vitamins-Minerals (CENTRUM SILVER 50+WOMEN) TABS Take 1 Tab by mouth daily. 0 Active oxygen GASIndications:ISELA on CPAP 2.5 LPM bled through cpap. 1 Each 0 9 Active Additional Information Patient not taking.Reported on 06/20/2023 DIURETIC TITRATION PLAN If no improvement on day 3, contact heart failure managing provider. 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 Use as directed. 1 Each 1 0 Active Iron 325 (65 Fe) MG Oral Tablet Take 1 Tablet by mouth daily. 0 Active Cranberry 500 MG Oral Capsule Take 1 Capsule by mouth in the morning and 1 Capsule before bedtime. 50 Cap 0 1 Active Guhsosb-Oftjotqka-J inc 333-133-5 MG Oral Tablet Take 1 Tablet by mouth daily. 0 Active Anoro Ellipta 62.5-25 MCG/INH Inhalation Aerosol Powder Breath Activated (umeclidinium-vilan terol)Indications:C OPD, moderate (HCC),COPD, group D, by GOLD 2017 classification ([facility]) Inhale by mouth 1 Puff [...] :COPD, group D, by GOLD 2017 classification ([facility]) Inhale 3 mL via nebulizer [...] Sunday only. 42.5 g 1 3 Active Benzonatate 100 MG Oral Capsule Take 1 Capsule by mouth 3 times a day as needed for Cough. 30 Capsule 1 3 Active Furosemide 40 MG Oral Tablet (Lasix)Indications: Chronic diastolic congestive heart failure (HCC) One tablet daily with an extra tablet as needed for swelling 120 Tablet 3 3 Active Ramelteon 8 MG Oral Tablet (Rozerem)Indication s:Insomnia, unspecified type TAKE ONE TABLET AT BEDTIME 30 Tablet 5 3 Active Additional Information Patient not taking.Reported on [...] AT BEDTIME 90 Capsule 3 3 Active Gabapentin 300 MG Oral Capsule (Neurontin)Indicati ons:Peripheral polyneuropathy,Pain in both lower extremities Take 3 Capsules by mouth every night at bedtime. 90 Capsule 3 3 07/11/20 23 Discontinued documented as of this encounter (statuses as of 07/11/2023) Active Problems Problem Noted Date Acute serous [...] as of this encounter (statuses as of 07/11/2023) Resolved Problems Problem Noted Date Resolved Date [...] as of this encounter (statuses as of 07/11/2023) Immunizations Name Administration Dates Next Due COVID-19 mRNA, LNP-s, No Pre serve, 2-Dose Series (MeinProspekt) 07/11/2021,11/14/2020,10/24/2020 Covid-19, Mrna, Lnp-s, Pf, B ivalent, 30 Mcg, IM, 12 yrs and above (MeinProspekt) 07/21/2022 Pneumococcal Conjugate Vacc, 13 Valent (Prevnar) 03/16/2015 Pneumococcal Conjugate Vacci ne, 20-valent ([id number]) 07/21/2022 Pneumococcal Polysaccharide PPV23 (Pneumovax) 03/05/2019,07/18/2007 SEASONAL [...] Telephone Encounter - Gaby Mckenzie MD - 07/11/2023 2:59 PM EDTSigned Prescriptions: Disp Refills Gabapentin 300 MG Oral Capsule (Neurontin) 90 Cap*3 Sig: TAKE THREE CAPSULES AT BEDTIME Authorizing Provider: GABY MCKENZIE * Telephone Encounter - Susan Claudio [facility] - 07/11/2023 2:08 PM EDTPending Prescriptions: Disp Refills Gabapentin 300 MG Oral Capsule [Pharmacy M*90 Cap*3 Sig: TAKE THREE CAPSULES AT BEDTIME * Telephone Encounter - Susan Claudio [facility] - 07/11/2023 2:08 PM EDT Did you pend patient's preferred pharmacy and medication before forwarding?yes Pharmacy: [facility], [address] [place] Pending Prescriptions: Disp Refills Gabapentin 300 MG Oral Capsule (Neurontin*90 Cap*3 Sig: TAKE THREE CAPSULES AT BEDTIME Last Visit: 06/07/2023 (in office), Visit date not found (telemedicine) Next Visit: 12/10/2023 If no future appointments scheduled, and last appointment is greater than a year ago, please schedule patient for a follow-up appointment Last date the medication was ordered: 03/16/23 Is this request for a controlled substance?No Urine Drug Screen:No results found. However, due to the size of the patient record, not all encounters were searched. Please check Results Review for a complete set of results. Patient Phone Numbers Labs: Lab Results Component Value Date/Time CREAT 0.9 07/03/2023 03:34 PM CREAT 1.0 06/29/2020 12:24 PM POTASSIUM 4.2 07/03/2023 03:34 PM POTASSIUM 4.1 06/29/2020 12:24 PM TSH 2.78 06/07/2023 08:58 AM TSH 3.53 08/08/2012 10:00 AM LDLCALC 63 06/07/2023 08:58 AM LDLCALC 80 03/03/2019 09:10 AM LDLDIRECT NOT APPLICABLE 03/03/2019 09:10 AM ALT 15 07/03/2023 03:34 PM ALT 24 06/29/2020 12:24 PM HGBA1C 5.3 07/07/2021 11:34 AM HGBA1C 6.3 (H) 06/29/2020 12:24 PM documented in this encounter Plan of Treatment Upcoming Encounters Date Type Specialty Care Team Description 3 Cardiac Studies Cardiac Studies 3 Scheduled Telephone [facility] [address] [place] [address] 3 Office Visit Gynecology Obstetrics Shane Rowland MD [address] [place] [address] 3 Scheduled Telephone [facility] Nurse Triage [address] [place] [address] 3 Hospital Encounter Endoscopy Sangeetha Song DO [address] [place] [address] 3 Surgery Endoscopy Sangeetha Song DO [address] [place] [address] ESOPHAGOGASTRODUODENOSCOPY (EGD), FLEXIBLE, TRANSORAL, DIAGNOSTIC 3 Office Visit Dermatology Marycruz Almazan PA-C [address] [place] [address] [place] [address] 4 Office Visit Sleep Disorders Sosa Freeman CRNP [address] [place] [address] 4 Office Visit Gastroenterology Lizzette Silva CRNP [address] [place] [address] 4 Office Visit Family Medicine Rhys Humphrey MD [address] [place] [address] [place] [address] 4 Office Visit Cardiology Mi Neil PA-C [address] [place] [address] 4 Nurse Only Ancillary [place], Nurse Annual Wellness [address] [place] [address] [place] [address] Scheduled Procedures Name Priority Associated Diagnoses Date/Ti [...] D LEVEL ONCE IN A LIFETIME-USE SMARTSET# 90931 Completed 06/29/2020, 03/16/2015 Pneumococcal Vaccine: 65+ Years [...] as of this encounter Visit Diagnoses Diagnosis Peripheral polyneuropathy Unspecified hereditary and idiopathic peripheral neuropathy Pain in both lower extremities Other iron deficiency anemia documented in this encounter Advance Directives Documents on File Type Date Recorded Patient Chief Contract Officer Expl anation POLST 10/15/2019 3:17 PM POLST POLST 03/05/2019 POLST FORM Advance Directives and Living Will 01/27/2013 LIVING WILL Advance Directives and Living Will 01/27/2013 LIVING WILL Power of Telephone Claims Representative 01/27/2013 POWER OF A TTORNEY Power of Telephone Claims Representative 01/27/2013 POWER OF A TTORNEY Healthcare Agents on File Name Relationship Healthcare Agent Relationship Communication Cydney Benito Other - (no specific identity) Second Alternate Health Care Agent Anyi More Adult Child Health Care Roberth r of Telephone Claims Representative Care Teams Infectious Disease Technician Relationship Specialty Start Date End Date Rhys Humphrey MD [address] [place] [address] [place] [id number] PCP - General Family Medicine 06/09/21 documented as of this encounter
--- OUTSIDE RECORDS SUMMARY | 2023-08-14 23:24 | External Medical Summary | Summary of Care ---
Author Name Unknown Organization [facility] Address [address] [place] [address] Phone [phone] Care Team Providers Care Network Associate Name Role Phone Rhys Humphrey MD Primary Care Provide r Reason for Visit * Reason Onset Date Comments [facility]: Maintenance 07/09/2023 Encounter Details Date Type Department Care Team Description 07/09/2023 Telephone [facility], [facility] [address] [place] [address] [facility], Nurse [facility] [address] [place] [address] [facility]: Maintenance Allergies Active Allergy [...] Each 0 11/11/2019 Active Nebulizers (NEBULIZER COMPRESSOR) MISCIndications: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 Use as directed. 1 Each 1 11/17/2019 Active Iron 325 (65 Fe) MG Oral Tablet Take 1 Tablet by mouth daily. 0 Active Cranberry 500 MG Oral Capsule Take 1 Capsule by mouth in the morning and 1 Capsule before bedtime. 50 Cap 0 01/18/2021 Active Bunnuth-Cfevjhsyq-N inc 333-133-5 MG Oral Tablet Take 1 Tablet by mouth daily. 0 Active Anoro Ellipta 62.5-25 MCG/INH Inhalation Aerosol Powder Breath Activated (umeclidinium-vilan terol)Indications:C OPD, moderate (HCC),COPD, group D, by GOLD 2017 classification ([facility]) Inhale by mouth 1 Puff [...] :COPD, group D, by GOLD 2017 classification ([facility]) Inhale 3 mL via nebulizer [...] mRNA, LNP-s, No Pre serve, 2-Dose Series ([employer]) 07/11/2021,11/14/2020,10/24/2020 Covid-19, Mrna, Lnp-s, Pf, B ivalent, 30 Mcg, IM, 12 yrs and above ([employer]) 07/21/2022 Pneumococcal Conjugate Vacc, 13 Valent (Prevnar) 03/16/2015 Pneumococcal Conjugate Vacci ne, 20-valent ([id number]) 07/21/2022 Pneumococcal Polysaccharide PPV23 (Pneumovax) 03/05/2019,07/18/2007 SEASONAL [...] 12:03 PM EDT Call to patient with [facility] recommemdations Left message to return call Follow up call placed * Addendum Note - Hunter Sheffield MD - 07/09/2023 11:54 AM EDTAddended by: HUNTER SHEFFIELD on: 07/09/2023 11:54 AM Modules accepted: Orders * Telephone Encounter - Hunter Sheffield MD - 07/09/2023 11:53 AM EDT Symptomatic hypotension Rec: Cut losartan to 50 mg daily Continue to monitor Hunter Sheffield MD, [facility], [facility], FAAFP Nuclear Operator [facility] [place] [facility] Service Available on SourceNinja * Telephone Encounter - Denise Pittman LPN [...] Moderate risk: Route to RNCM (Registered Nurse Lithographic Artist) and Advance Practitioner Route to RMC (Remote Medical Coordinator) documented in this encounter Plan of Treatment Upcoming Encounters Date Type Specialty Care Team Description 3 Scheduled Telephone [facility] , [facility] Field [address] [place] [address] 3 Imaging Radiology 3 Cardiac Studies Cardiac Studies 3 Office Visit Gynecology Obstetrics Shane Rowland MD [address] [place] [address] 3 Scheduled Telephone [facility] Nurse Triage [address] [place] [address] 3 Hospital Encounter Endoscopy Sangeetha Song DO [address] [place] [address] 3 Surgery Endoscopy Sangeetha Song, [address] [place] [address] ESOPHAGOGASTRODUODENOSCOPY (EGD), FLEXIBLE, TRANSORAL, DIAGNOSTIC 3 Office Visit Dermatology Marycruz Almazan PA-C [address] [place] [address] [place] [address] 4 Office Visit Sleep Disorders Sosa Freeman CRNP [address] [place] [address] 4 Office Visit Gastroenterology Lizzette Silav CRNP [address] [place] [address] 4 Office Visit Family Medicine Rhys Humphrey MD [address] [place] [address] [place] [address] 4 Office Visit Cardiology Mi Neil PA-C [address] [place] [address] 4 Nurse Only Ancillary Stanton, Nurse Annual Wellness [address] [place] [address] [place] [address] Scheduled Procedures Name Priority Associated Diagnoses Date/Ti [...] D LEVEL ONCE IN A LIFETIME-USE SMARTSET# [id number] Completed 06/29/2020, 03/16/2015 Pneumococcal Vaccine: 65+ Years [...] Documents on File Type Date Recorded Patient Reweaver Expl anation POLST 10/15/2019 3:17 PM POLST POLST 03/05/2019 POLST FORM Advance Directives and Living Will 01/27/2013 LIVING WILL Advance Directives and Living Will 01/27/2013 LIVING WILL Power of Machine Bender 01/27/2013 POWER OF A TTORNEY Power of Machine Bender 01/27/2013 POWER OF A TTORNEY Healthcare Agents on File Name Relationship Healthcare Agent Relationship Communication Cydney Benito Other - (no specific identity) Second Alternate Health Care Agent Anyi More Adult Child Health Care Roberth r of Machine Bender Care Teams Network Associate Relationship Specialty Start Date End Date Rhys Humphrey MD [address] [place] [address] [place] [address] PCP - General Family Medicine 06/09/21 documented as of this encounter
--- OUTSIDE RECORDS SUMMARY | 2023-08-14 23:24 | External Medical Summary | Summary of Care ---
Author Name Unknown Organization [facility] Address [address] [place] [address] Phone [phone] Care Team Providers Care City Driver Name Role Phone Rhys Humphrey MD Primary Care Provide r Reason for Visit * Reason Onset Date Comments [facility]: Maintenance 07/10/2023 Encounter Details Date Type Department Care Team Description 07/10/2023 Scheduled Telephone [facility], [facility] [address] [facility] [place] [address] Coordinator, [facility] [address] [facility] [facility] [place] [address] Allergies Active Allergy Reactions Severity Noted Date Comments Adhesive Tape Other (Please comment),Hives High 09/29/2008 Caused welts Dextromethorphan-Gua ifenesin Neuro complications (Please comment) Medium 12/23/2021 Feels lightheaded/"foggy" documented as of this encounter (statuses as of 07/10/2023) Medications Medication Sig Dispensed Refills Start Date [...] before bedtime. 50 Cap 0 01/18/2021 Active Ogwelxj-Bwwvhikga-Nr nc 333-133-5 MG Oral Tablet Take 1 Tablet by mouth daily. 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 90 Capsule 3 03/16/2023 Active Ipratropium-Albutero l 0.5-2.5 (3) MG/3ML [...] Tablet (Lasix)Indications:C hronic diastolic congestive heart failure ([facility]) [...] mouth daily. 180 Tablet 1 07/09/2023 Active documented as of this encounter (statuses as of 07/10/2023) Active Problems Problem Noted Date Acute serous [...] as of this encounter (statuses as of 07/10/2023) Resolved Problems Problem Noted Date Resolved Date [...] as of this encounter (statuses as of 07/10/2023) Immunizations Name Administration Dates Next Due COVID-19 mRNA, LNP-s, No Pre serve, 2-Dose Series (zintin) 07/11/2021,11/14/2020,10/24/2020 Covid-19, Mrna, Lnp-s, Pf, B ivalent, 30 Mcg, IM, 12 yrs and above (zintin) 07/21/2022 Pneumococcal Conjugate Vacc, 13 Valent (Prevnar) 03/16/2015 Pneumococcal Conjugate Vacci ne, 20-valent ([id number]) 07/21/2022 Pneumococcal Polysaccharide PPV23 (Pneumovax) 03/05/2019,07/18/2007 SEASONAL [...] encounter Miscellaneous Notes * Telephone Encounter - Chaya Ozuna LPN - 07/10/2023 8:52 AM EDT Images from the original note were not included. [facility] Telephonic Nurse Follow-Up Call [facility] Subprogram: Focused Care Management (3-9 months) Follow Up Call Type: Routine follow up call / Status Check Acute issue requiring follow-up call: Remote Patient Monitoring Trigger Objective: 07/03/2023 2:34 PM 06/21/2023 2:32 PM [...] 07/03/2023 [facility] - [facility] 07/03/2023 No results found for: PRO BNP, LEFT VENTRICULAR EJECTION FRACTION Remote Patient Monitoring: [facility] Blood Pressure Cuff: 110/52 Oxygen Needs: NO CHANGE from baseline supplemental oxygen needs DME Needs: NO DME needs identified Medications: Dose adjustment(s) made: 07/09 reduced Losartan to 50 mg daily Subjective: Condition Status: LMTCB Current Concerns: Call to pt no answer left requesting a return call to [facility] at [phone] opt#3 Disposition: Follow up call scheduled for tomorrow with [facility] Respiratory Therapy Manager Future Visits Scheduled: Future Appointments-next 60 days Date/Time Provider Specialty Dept Phone 07/10/2023 12:00 PM [facility] Respiratory Therapy Manager [facility] [phone] 07/11/2023 10:00 AM [address] [facility] [address] PREP; CT1 [facility] Radiology [phone] 07/12/2023 8:00 AM [facility] Studies [phone] 07/16/2023 2:00 PM (Arrive by 1:45 PM) Shane Rowland MD Gynecology Obstetrics [phone] 08/06/2023 12:[address] [facility] Nurse Triage [place] [facility] [phone] 09/17/2023 9:40 AM (Arrive by 9:25 AM) Marycruz Almazan PA-C Dermatology [phone] 10/03/2023 10:30 AM (Arrive by 10:15 AM) PITER Gordillo Sleep Disorders [phone] 10/16/2023 11:30 AM (Arrive by 11:15 AM) PITER Wills Gastroenterology [phone] 12/10/2023 9:20 AM (Arrive by 9:05 AM) Rhys Humphrey MD Family Medicine [phone] 12/27/2023 11:00 AM (Arrive by 10:45 AM) Mi Neil PA-C Cardiology [phone] 03/18/2024 9:00 AM Nurse Annual Wellness [place] Ancillary [phone] Chaya Ozuna LPN documented in this encounter Plan of Treatment Upcoming Encounters Date Type Specialty Care Team Description 3 Imaging Radiology 3 Scheduled Telephone [facility] Insurance Agency Owner , [facility] [address] [place] [address] 3 Cardiac Studies Cardiac Studies 3 Office Visit Gynecology Obstetrics Shane Rowland MD [address] [place] [address] 3 Scheduled Telephone [facility] Nurse Triage [address] [place] [address] 3 Hospital Encounter Endoscopy Sangeetha Song, [address] [place] [address] 3 Surgery Endoscopy Sangeetha Song, [address] [place], [place] [address] ESOPHAGOGASTRODUODENOSCOPY (EGD), FLEXIBLE, TRANSORAL, DIAGNOSTIC 3 Office Visit Dermatology Marycruz Almazan PA-C [address] [place] [address] [place] [address] 4 Office Visit Sleep Disorders Sosa rFeeman CRNP [address] [place] [address] 4 Office Visit Gastroenterology iLzzette Silva CRNP [address] [place] [address] 4 Office Visit Family Medicine Rhys Humphrey MD [address] [place] [address] [place] [address] 4 Office Visit Cardiology Mi Neil PA-C [address] [place] [address] 4 Nurse Only Ancillary [place], Nurse Annual Wellness [address] [place] [address] [place] [address] Scheduled Procedures Name Priority Associated Diagnoses Date/Ti [...] D LEVEL ONCE IN A LIFETIME-USE SMARTSET# [id number] Completed 06/29/2020, 03/16/2015 Pneumococcal Vaccine: 65+ Years [...] Documents on File Type Date Recorded Patient Cell Tower Climber Expl anation POLST 10/15/2019 3:17 PM POLST POLST 03/05/2019 POLST FORM Advance Directives and Living Will 01/27/2013 LIVING WILL Advance Directives and Living Will 01/27/2013 LIVING WILL Power of Case Worker 01/27/2013 POWER OF A TTORNEY Power of Case Worker 01/27/2013 POWER OF A TTORNEY Healthcare Agents on File Name Relationship Healthcare Agent Relationship Communication Cydney Benito Other - (no specific identity) Second Alternate Health Care Agent Anyi More Adult Child Health Care Roberth r of Case Worker Care Teams City Driver Relationship Specialty Start Date End Date Rhys Humphrey MD [address] [place] [address] [place] [address] PCP - General Family Medicine 06/09/21 documented as of this encounter
--- OUTSIDE RECORDS SUMMARY | 2023-08-14 23:24 | External Medical Summary | Summary of Care ---
Author Name Unknown Organization [facility] Address [address] [place] [address] Phone [phone] Care Team Providers Care Head Golf Professional Name Role Phone Rhys Humphrey MD Primary Care Provide r Reason for Visit * Reason Onset Date Comments Test Results 07/12/2023 Unexpected or In determinate Result Encounter Details Date Type Department Care Team Description 07/12/2023 Telephone Hematology/Oncology, [facility] [address] [place] [address] Gris Diaz CRNP [address] [place], [place] [id number] Test Results (Unexpected or Indeterminate ... Allergies Active Allergy Reactions Severity Noted Date Comments Adhesive Tape Other (Please comment),Hives High 09/29/2008 Caused welts Dextromethorphan-Gua ifenesin Neuro complications (Please comment) Medium 12/23/2021 Feels lightheaded/"foggy" documented as of this encounter (statuses as of 07/12/2023) Medications Medication Sig Dispensed Refills Start Date [...] before bedtime. 50 Cap 0 01/18/2021 Active Ejeionp-Wfxaxzkng-Ei nc 333-133-5 MG Oral Tablet Take 1 Tablet by mouth daily. 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),COPD, group D, by GOLD [...] group D, by GOLD 2017 classification ([facility]) Inhale 3 mL via nebulizer every 6 [...] as of this encounter (statuses as of 07/12/2023) Active Problems Problem Noted Date Acute serous [...] as of this encounter (statuses as of 07/12/2023) Resolved Problems Problem Noted Date Resolved Date [...] as of this encounter (statuses as of 07/12/2023) Immunizations Name Administration Dates Next Due COVID-19 mRNA, LNP-s, No Pre serve, 2-Dose Series ([employer]) 07/11/2021,11/14/2020,10/24/2020 Covid-19, Mrna, Lnp-s, Pf, B ivalent, 30 Mcg, IM, 12 yrs and above ([employer]) 07/21/2022 Pneumococcal Conjugate Vacc, 13 Valent (Prevnar) 03/16/2015 Pneumococcal Conjugate Vacci ne, 20-valent ([id number]) 07/21/2022 Pneumococcal Polysaccharide PPV23 (Pneumovax) 03/05/2019,07/18/2007 SEASONAL [...] Miscellaneous Notes * Telephone Encounter - ISELA Srinivasan - 07/12/2023 10:33 AM EDT [place]- The radiologist discovered an unexpected or indeterminate finding on Keisha Linares ([id number]) and asks that you review the following report. Study Type: CT CHEST/ABDOMEN/PELVIS WITH IV CONTRAST WITH ORAL CONTRAST Date of Study: 07/11/2023 IMPRESSION 1. New mediastinal, hilar and retroperitoneal adenopathy. This may represent no lymphoma or metastatic disease. 2. Left lower lobe branching nodularity with a few discrete nodules. Findings may represent infectious/inflammatory process or neoplastic process. 3. Probable interstitial edema. Moderate emphysema. 4. Additional findings described in full report. Please respond to this encounter to acknowledge receipt of this message and take responsibility to ensure this report is reviewed. Thank you, La [place], ISELA Client Service Rep [facility] documented in this encounter Plan of Treatment Upcoming Encounters Date Type Specialty Care Team Description 3 Scheduled Telephone [facility] General Counselor , [facility] [address] [place] [address] 3 Office Visit Gynecology Obstetrics Shane Rowland MD [address] [place] [address] 3 Scheduled Telephone [facility] [place], [facility] Nurse Triage [address] [place] [address] 3 Hospital Encounter Endoscopy Sangeetha Song DO [address] [place] [address] 3 Surgery Endoscopy Sangeetha Song DO [address] [place] [address] ESOPHAGOGASTRODUODENOSCOPY (EGD), FLEXIBLE, TRANSORAL, DIAGNOSTIC 3 Office Visit Dermatology Marycruz Almazan PA-C [address] [place] [address] [place] [address] 4 Office Visit Sleep Disorders Sosa Freeman CRNP [address] [place] [address] 4 Office Visit Gastroenterology Lizzette Silva CRNP [address] [place] [address] 4 Office Visit Family Medicine Rhys Humphrey MD [address] [place] [address] [place] [address] 4 Office Visit Cardiology Mi Neil PA-C [address] [place] [address] 4 Nurse Only Ancillary [place], Nurse Annual Wellness [address] [place] [address] [place] [address] Scheduled Procedures Name Priority Associated Diagnoses Date/Ti [...] D LEVEL ONCE IN A LIFETIME-USE SMARTSET# [id number] Completed 06/29/2020, 03/16/2015 Pneumococcal Vaccine: 65+ Years [...] Documents on File Type Date Recorded Patient Dry Cleaner Presser Expl anation POLST 10/15/2019 3:17 PM POLST POLST 03/05/2019 POLST FORM Advance Directives and Living Will 01/27/2013 LIVING WILL Advance Directives and Living Will 01/27/2013 LIVING WILL Power of Beaming Inspector 01/27/2013 POWER OF A TTORNEY Power of Beaming Inspector 01/27/2013 POWER OF A TTORNEY Healthcare Agents on File Name Relationship Healthcare Agent Relationship Communication Cydney Benito Other - (no specific identity) Second Alternate Health Care Agent Anyi More Adult Child Health Care Roberth r of Beaming Inspector Care Teams Head Golf Professional Relationship Specialty Start Date End Date Rhys Humphrey MD [address] [place] [address] [place] [address] PCP - General Family Medicine 06/09/21 documented as of this encounter
--- OUTSIDE RECORDS SUMMARY | 2023-08-14 23:24 | External Medical Summary | Summary of Care ---
Author Name Unknown Organization [facility] Address [address] [place] [address] Phone [phone] Care Team Providers Care Helicopter Mechanic Name Role Phone Rhys Humphrey MD Primary Care Provide r Reason for Visit * Reason Onset Date Comments [facility]: Maintenance 07/09/2023 Encounter Details Date Type Department Care Team Description 07/09/2023 Telephone [facility], [facility] [address] [place] [address] [facility], Nurse [facility] [address] [place] [address] [facility]: Maintenance Allergies Active Allergy [...] Each 0 11/11/2019 Active Nebulizers (NEBULIZER COMPRESSOR) MISCIndications: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 Use as directed. 1 Each 1 11/17/2019 Active Iron 325 (65 Fe) MG Oral Tablet Take 1 Tablet by mouth daily. 0 Active Cranberry 500 MG Oral Capsule Take 1 Capsule by mouth in the morning and 1 Capsule before bedtime. 50 Cap 0 01/18/2021 Active Vlwotvk-Zqcjizbft-I inc 333-133-5 MG Oral Tablet Take 1 [...] :COPD, group D, by GOLD 2017 classification ([facility]) Inhale 3 mL via [...] mRNA, LNP-s, No Pre serve, 2-Dose Series ([employer]) 07/11/2021,11/14/2020,10/24/2020 Covid-19, Mrna, Lnp-s, Pf, B ivalent, 30 Mcg, IM, 12 yrs and above ([employer]) 07/21/2022 Pneumococcal Conjugate Vacc, 13 Valent (Prevnar) 03/16/2015 Pneumococcal Conjugate Vacci ne, 20-valent ([id number]) 07/21/2022 Pneumococcal Polysaccharide PPV23 (Pneumovax) 03/05/2019,07/18/2007 SEASONAL [...] Encounter - Denise Pittman LPN - 07/09/2023 2:45 PM EDT Call to patient for 2nd attempt Spoke to patient and made aware Follow up call tomorrow * Telephone Encounter - Denise Pittman LPN - 07/09/2023 12:03 PM EDT Call to patient with RMC recommemdations Left message to return call Follow up call placed * Addendum Note - Hunter Sheffield MD - 07/09/2023 11:54 AM EDTAddended by: HUNTER SHEFFIELD on: 07/09/2023 11:54 AM Modules accepted: Orders * Telephone Encounter - Hunter Sheffield MD - 07/09/2023 11:53 AM EDT Symptomatic hypotension Rec: Cut losartan to 50 mg daily Continue to monitor Hunter Sheffield MD, [facility], [facility], FAAFP Fur Grader [facility] at [facility] [place] Palliative Care Service Available on [facility] * Telephone Encounter - Denise Pittman LPN - 07/09/2023 9:38 AM EDT Images from the original note were not included. [facility] Remote Patient Monitoring Able to contact patient: [...] Moderate risk: Route to RNCM (Registered Nurse Supervisor Sintering Plant) and Advance Practitioner Route to RMC (Remote Medical Coordinator) documented in this encounter Plan of Treatment Upcoming Encounters Date Type Specialty Care Team Description 3 Scheduled Telephone [facility] Jv Baseball Coach , [facility] Field [address] [place] [address] 3 Imaging Radiology 3 Cardiac Studies Cardiac Studies 3 Office Visit Gynecology Obstetrics Shane Rowland MD [address] [place] [address] 3 Scheduled Telephone [facility] Nurse Triage [address] [place] [address] 3 Hospital Encounter Endoscopy Sangeetha Song DO [address] [place] [address] 3 Surgery Endoscopy Sangeetha Song DO [address] [place] [address] ESOPHAGOGASTRODUODENOSCOPY (EGD), FLEXIBLE, TRANSORAL, DIAGNOSTIC 3 Office Visit Dermatology Marycruz Almazan PA-C [address] [place] [address] [place] [address] 4 Office Visit Sleep Disorders Sosa Freeman CRNP [address] [place] [address] 4 Office Visit Gastroenterology Lizzette Silva CRNP [address] [place] [address] 4 Office Visit Family Medicine Rhys Humphrey MD [address] [place] [address] [place] [address] 4 Office Visit Cardiology Mi Neil PA-C [address] [place] [address] 4 Nurse Only Ancillary [place], Nurse Annual Wellness [address] [place] [address] [place] [address] Scheduled Procedures Name Priority Associated Diagnoses Date/Ti [...] D LEVEL ONCE IN A LIFETIME-USE SMARTSET# [id number] Completed 06/29/2020, 03/16/2015 Pneumococcal Vaccine: 65+ Years [...] Documents on File Type Date Recorded Patient Apple Sorter Expl anation POLST 10/15/2019 3:17 PM POLST POLST 03/05/2019 POLST FORM Advance Directives and Living Will 01/27/2013 LIVING WILL Advance Directives and Living Will 01/27/2013 LIVING WILL Power of Assembly Line Upholsterer 01/27/2013 POWER OF A TTORNEY Power of Assembly Line Upholsterer 01/27/2013 POWER OF A TTORNEY Healthcare Agents on File Name Relationship Healthcare Agent Relationship Communication Cydney Benito Other - (no specific identity) Second Alternate Health Care Agent Anyi More Adult Child Health Care Roberth r of Assembly Line Upholsterer Care Teams Helicopter Mechanic Relationship Specialty Start Date End Date Rhys Humphrey MD [address] [place] [address] [place] [address] PCP - General Family Medicine 06/09/21 documented as of this encounter
--- OUTSIDE RECORDS SUMMARY | 2023-08-14 23:24 | External Medical Summary | Summary of Care ---
Author Name Unknown Organization [facility] Address [address] [place] [address] Phone [phone] Care Team Providers Care Wet Cotton Feeder Name Role Phone Rhys Humphrey MD Primary Care Provide r Reason for Visit * Reason Onset Date Comments [facility]: Maintenance 07/12/2023 Encounter Details Date Type Department Care Team Description 07/12/2023 Scheduled Telephone [facility], [facility] [address] [facility] [place] [address] Coordinator, [facility] [address] [facility] [place] [address] Allergies Active Allergy Reactions Severity Noted Date [...] before bedtime. 50 Cap 0 01/18/2021 Active Kbpidvu-Gjhewpvki-Eg nc 333-133-5 MG Oral Tablet Take 1 Tablet by mouth daily. 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),COPD, group D, by GOLD 2017 classification ([facility]) Inhale by mouth 1 Puff [...] COPD, group D, by GOLD 2017 classification ([facility]) Inhale 3 mL via nebulizer [...] mRNA, LNP-s, No Pre serve, 2-Dose Series ([employer]) 07/11/2021,11/14/2020,10/24/2020 Covid-19, Mrna, Lnp-s, Pf, B ivalent, 30 Mcg, IM, 12 yrs and above ([employer]) 07/21/2022 Pneumococcal Conjugate Vacc, 13 Valent (Prevnar) 03/16/2015 Pneumococcal Conjugate Vacci ne, 20-valent ([id number]) 07/21/2022 Pneumococcal Polysaccharide PPV23 (Pneumovax) 03/05/2019,07/18/2007 SEASONAL [...] encounter Miscellaneous Notes * Telephone Encounter - More Aguayo RN - 07/12/2023 1:00 PM EDT [facility] Telephonic Nurse Follow-Up Call [facility] Subprogram: Focused Care Management (3-9 months) Follow Up Call Type: Routine follow up call / Status Check Acute issue requiring follow-up call: Other: Decrease in Lorsartan dose to 50 mg daily Objective: 07/03/2023 2:34 PM 06/21/2023 2:32 PM [...] 61 07/12/2023 Remote Patient Monitoring: AMC Scale: 159.6 Oxygen Needs: NO supplemental oxygen needs identified DME Needs: NO DME needs identified Medications: Dose adjustment(s) made: Losartan decreased to 50 mg daily Subjective: Condition Status: Improvement in symptoms but not at baseline and fall out of bed last night Current Concerns: Spoke with patient. She said she is taking her Losartan as ordered. She said her BP cuff not working. They are sending her a new one and a box to send the old one back. Her therapist was there at time of call and she took BP 108/58. She said she fell out of bed last night. She said she sleeps close to the edge and rolled out in her sleep. She said she bumped her head. No lacerations noted. Denies headache, change in vision. Said she hassome bruising on her buttocks from the fall. Said she is sore from the fall. Suggested she placed a pill next to the edge of the bed under the sheet to define the parameter. She said she would try. Disposition: Follow [facility] Future Visits Scheduled: Future Appointments-next 60 days Date/Time Provider Specialty Dept Phone 07/12/2023 2:00 PM BannerArch Support Technician [facility] [phone] 07/16/2023 2:00 PM (Arrive by 1:45 PM) Shane Rowland MD Gynecology Obstetrics [phone] 08/06/2023 12:00 PM [facility] Nurse Triage [place] [facility] [phone] 09/17/2023 9:40 AM (Arrive by 9:25 AM) Marycruz Almazan PA-C Dermatology [phone] 10/03/2023 10:30 AM (Arrive by 10:15 AM) PITER Gordillo Sleep Disorders [phone] 10/16/2023 11:30 AM (Arrive by 11:15 AM) PITER Wills Gastroenterology [phone] 12/10/2023 9:20 AM (Arrive by 9:05 AM) Rhys Humphrey MD Family Medicine [phone] 12/27/2023 11:00 AM (Arrive by 10:45 AM) Mi Neil PA-C Cardiology [phone] 03/18/2024 9:00 AM Nurse Annual Wellness [facility] Ancillary [phone] Routed to care team More Aguayo RN documented in this encounter Plan of Treatment Upcoming Encounters Date Type Specialty Care Team Description 3 Scheduled Telephone [facility] Professor Of Chemical Engineering , [facility] Maximiliano Zhou [address] [place] [address] 3 Office Visit Gynecology Obstetrics Shane Rowland MD [address] [place] [place] [address] 3 Scheduled Telephone [facility] Nurse Triage [address] [place] [address] 3 Hospital Encounter Endoscopy AuroraSangeetha rivasDO [address] [place] [address] 3 Surgery Endoscopy Luis Songfrancisco javier Gutiérrez, [address] [place], [place] [address] ESOPHAGOGASTRODUODENOSCOPY (EGD), FLEXIBLE, TRANSORAL, DIAGNOSTIC 3 Office Visit Dermatology Marycruz Almazan PA-C [address] [place] [address] [place] [address] 4 Office Visit Sleep Disorders Sosa Freeman CRNP [address] [place] [address] 4 Office Visit Gastroenterology Lizzette Silva CRNP [address] [place] [address] 4 Office Visit Family Medicine Rhys Humphrey MD [address] [place] [address] [place] [address] 4 Office Visit Cardiology Mi Neil PA-C [address] [place] [address] 4 Nurse Only Ancillary [place], Nurse Annual Wellness [address] [place] [address] [place] [address] Scheduled Procedures Name Priority Associated Diagnoses Date/Ti [...] D LEVEL ONCE IN A LIFETIME-USE SMARTSET# [id number] Completed 06/29/2020, 03/16/2015 Pneumococcal Vaccine: 65+ Years [...] Documents on File Type Date Recorded Patient Ladder Operator Expl anation POLST 10/15/2019 3:17 PM POLST POLST 03/05/2019 POLST FORM Advance Directives and Living Will 01/27/2013 LIVING WILL Advance Directives and Living Will 01/27/2013 LIVING WILL Power of Aircraft Lay Out Worker 01/27/2013 POWER OF A TTORNEY Power of Aircraft Lay Out Worker 01/27/2013 POWER OF A TTORNEY Healthcare Agents on File Name Relationship Healthcare Agent Relationship Communication Cydney Benito Other - (no specific identity) Second Alternate Health Care Agent Anyi More Adult Child Health Care Roberth r of Aircraft Lay Out Worker Care Teams Wet Cotton Feeder Relationship Specialty Start Date End Date Rhys Humphrey MD [address] [place] [address] [place] [address] PCP - General Family Medicine 06/09/21 documented as of this encounter
--- OUTSIDE RECORDS SUMMARY | 2023-08-14 23:24 | External Medical Summary | Summary of Care ---
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 50 Cap 0 01/18/2021 Active Rtjnnlb-Djgvbbwxv-Wf nc 333-133-5 MG Oral Tablet Take 1 Tablet by mouth daily. 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 D, moderate (HCC),COPD, group D, by GOLD [...] Aerosol SolutionIndications: COPD, moderate ([facility]) Inhale 2 Puffs by mouth every [...] by GOLD 2017 classification ([facility]) Inhale 3 mL via nebulizer every [...] mRNA, LNP-s, No Pre serve, 2-Dose Series ([employer]) 07/11/2021,11/14/2020,10/24/2020 Covid-19, Mrna, Lnp-s, Pf, B ivalent, 30 Mcg, IM, 12 yrs and above (Pfizer) 07/21/2022 Pneumococcal Conjugate Vacc, 13 Valent (Prevnar) 03/16/2015 Pneumococcal Conjugate Vacci ne, 20-valent ([id number]) 07/21/2022 Pneumococcal Polysaccharide PPV23 (Pneumovax) 03/05/2019,07/18/2007 SEASONAL [...] encounter Miscellaneous Notes * Telephone Encounter - PITER Shen - [...] Team Description 3 Scheduled Telephone [facility] Food Production Machine Operator , [facility] [address] [place] [address] 3 Office Visit Gynecology Obstetrics Shane Rowland MD [address] [place] [address] 3 Scheduled Telephone [facility] Nurse Triage [address] [place] [place] [address] 3 Hospital Encounter Endoscopy Sangeetha Song DO [address] [place] [address] 3 Surgery Endoscopy Sangeetha Song DO [address] [place] [address] ESOPHAGOGASTRODUODENOSCOPY (EGD), FLEXIBLE, TRANSORAL, DIAGNOSTIC 3 Office Visit Dermatology Marycruz Almazan PA-C [address] [place] [address] [place] [address] 4 Office Visit Sleep Disorders Sosa Freeman CRNP [address] [place] [address] 4 Office Visit Gastroenterology Lizzette Silva CRNP [address] [place] [address] 4 Office Visit Family Medicine Rhys Humphrey MD [address] [place] [address] [place] [address] 4 Office Visit Cardiology Mi Neil PA-C [address] [place] [address] 4 Nurse Only Ancillary [place], Nurse Annual Wellness [address] [place] [address] [place] [address] Scheduled Procedures Name Priority Associated Diagnoses Date/Ti nv ESOPHAGOGASTRODUODENOSCOPY ( EGD), FLEXIBLE, TRANSORAL, DIAGNOSTIC Other [...] D LEVEL ONCE IN A LIFETIME-USE SMARTSET# [id number] Completed 06/29/2020, 03/16/2015 Pneumococcal Vaccine: 65+ Years [...] Documents on File Type Date Recorded Patient Health Assistant Expl anation POLST 10/15/2019 3:17 PM POLST POLST 03/05/2019 POLST FORM Advance Directives and Living Will 01/27/2013 LIVING WILL Advance Directives and Living Will 01/27/2013 LIVING WILL Power of Hearing Screen Coordinator 01/27/2013 POWER OF A TTORNEY Power of Hearing Screen Coordinator 01/27/2013 POWER OF A TTORNEY Healthcare Agents on File Name Relationship Healthcare Agent Relationship Communication Cydney Benito Other - (no specific identity) Second Alternate Health Care Agent Anyi More Adult Child Health Care Roberth r of Hearing Screen Coordinator Care Teams Dental Cream Maker Relationship Specialty Start Date End Date Rhys Humphrey MD [address] [place] [address] [place] [address] PCP - General Family Medicine 06/09/21 documented as of this encounter
--- OUTSIDE RECORDS SUMMARY | 2023-08-14 23:24 | External Medical Summary | Summary of Care ---
Author Name Unknown Organization [facility] Address [address] [place] [address] Phone [phone] Care Team Providers Care Gear Hobber Set Up Operator Name Role Phone Rhys Humphrey MD Primary Care Provide r Reason for Visit * Reason Onset Date Comments [facility]: Maintenance 07/11/2023 Encounter Details Date Type Department Care Team Description 07/11/2023 Scheduled Telephone [facility], [facility] [address] [facility] [place] [address] Coordinator, [facility] [address] [facility] [place] [address] Allergies Active Allergy Reactions Severity Noted Date [...] before bedtime. 50 Cap 0 01/18/2021 Active Czoixvu-Eezngzgrf-Ld nc 333-133-5 MG Oral Tablet Take 1 Tablet by mouth daily. 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 D, moderate (HCC),COPD, group D, by GOLD 2017 classification ([facility]) Inhale by mouth 1 Puff in [...] D, by GOLD 2017 classification ([facility]) Inhale 3 mL via nebulizer every [...] hronic diastolic congestive heart failure ([facility]) One tablet daily with an extra [...] mRNA, LNP-s, No Pre serve, 2-Dose Series ([employer]) 07/11/2021,11/14/2020,10/24/2020 Covid-19, Mrna, Lnp-s, Pf, B ivalent, 30 Mcg, IM, 12 yrs and above ([employer]) 07/21/2022 Pneumococcal Conjugate Vacc, 13 Valent (Prevnar) 03/16/2015 Pneumococcal Conjugate Vacci ne, 20-valent ([id number]) 07/21/2022 Pneumococcal Polysaccharide PPV23 (Pneumovax) 03/05/2019,07/18/2007 SEASONAL [...] encounter Miscellaneous Notes * Telephone Encounter - Mar Tatum RN - 07/11/2023 10:56 AM EDT Images from the original note were not included. [facility] Telephonic Nurse Follow-Up Call [facility] Subprogram: Focused Care Management (3-9 months) Follow Up Call Type: 24 hour follow up Acute issue requiring follow-up call: Other: Check BP, Losartan dose decreased to 50 mg daily Objective: 07/03/2023 2:34 [...] LEFT VENTRICULAR EJECTION FRACTION Remote Patient [place]: [facility] [place] Pressure Cuff: BP cuff and scale Oxygen Needs: NO supplemental oxygen needs identified DME Needs: NO DME needs identified Medications: Dose adjustment(s) made: Losartan dose decreased to 50 mg daily Subjective: Condition Status: unable to contact Current Concerns: Unable to contact , called home and mobile numbers, left message to return call to [facility] No recording from today Disposition: Follow up call scheduled for tomorrow with FLIGHT INSPECTOR Area Forester Future Visits Scheduled: Future Appointments-next 60 days Date/Time Provider Specialty Dept Phone 07/11/2023 11:30 AM [facility] Maximiliano Area Forester [facility] [phone] 07/12/2023 8:00 AM [employer] [facility] Cardiac Studies [phone] 07/16/2023 2:00 PM (Arrive by 1:45 PM) Shane Rowland MD Gynecology Obstetrics [phone] 08/06/2023 12:00 PM [facility] Nurse Triage [place] [facility] [phone] 09/17/2023 9:40 AM (Arrive by 9:25 AM) Marycruz Almazan PA-C Dermatology [phone] 10/03/2023 10:30 AM (Arrive by 10:15 AM) PITER Gordillo Sleep Disorders [phone] 10/16/2023 11:30 AM (Arrive by 11:15 AM) PITER Wills Gastroenterology [phone] 12/10/2023 9:20 AM (Arrive by 9:05 AM) Rhys Humphrey MD Family Medicine [phone] 12/27/2023 11:00 AM (Arrive by 10:45 AM) Mi Neil PA-C Cardiology [phone] 03/18/2024 9:00 AM [facility] Anc[facility] [phone] Mar Tatum activities counselorGreeting Card Writer [facility] documented in this encounter Plan of Treatment Upcoming Encounters Date Type Specialty Care Team Description 3 Cardiac Studies Cardiac Studies 3 Scheduled Telephone [facility] Plastic Press Molder , [facility] [address] [place] [address] 3 Office Visit Gynecology Obstetrics Shane Rowland MD [address] [place] [address] 3 Scheduled Telephone [facility] Nurse Triage [address] [place] [address] 3 Hospital Encounter Endoscopy Sangeetha Song DO [address] [place] [address] 3 Surgery Endoscopy Sangeetha Song, [address] [place] [address] ESOPHAGOGASTRODUODENOSCOPY (EGD), FLEXIBLE, TRANSORAL, DIAGNOSTIC 3 Office Visit Dermatology Marycruz Almazan PA-C [address] [place] [address] [place] [address] 4 Office Visit Sleep Disorders Sosa Freeman CRNP [address] [place] [address] 4 Office Visit Gastroenterology Lizzette Silva CRNP [address] [place] [address] 4 Office Visit Family Medicine Rhys Humphrey MD [address] [place] [address] [place] [address] 4 Office Visit Cardiology Mi Neil PA-C [address] [place] [address] 4 Nurse Only Ancillary [place], Nurse Annual Wellness [address] [place] [address] [place] [address] Scheduled Procedures Name Priority Associated Diagnoses Date/Ti [...] D LEVEL ONCE IN A LIFETIME-USE SMARTSET# [id number] Completed 06/29/2020, 03/16/2015 Pneumococcal Vaccine: 65+ Years [...] Documents on File Type Date Recorded Patient Mission Coordinator Expl anation POLST 10/15/2019 3:17 PM POLST POLST 03/05/2019 POLST FORM Advance Directives and Living Will 01/27/2013 LIVING WILL Advance Directives and Living Will 01/27/2013 LIVING WILL Power of Plating Technician 01/27/2013 POWER OF A TTORNEY Power of Plating Technician 01/27/2013 POWER OF A TTORNEY Healthcare Agents on File Name Relationship Healthcare Agent Relationship Communication Cydney Benito Other - (no specific identity) Second Alternate Health Care Agent Anyi More Adult Child Health Care Roberth r of Plating Technician Care Teams Gear Hobber Set Up Operator Relationship Specialty Start Date End Date Rhys Humphrey MD [address] [place] [address] [place] [address] PCP - General Family Medicine 06/09/21 documented as of this encounter
--- OUTSIDE RECORDS SUMMARY | 2023-08-14 23:24 | External Medical Summary | Summary of Care ---
Author Name Unknown Organization [facility] Address [address] [place] [address] Phone [phone] Care Team Providers Care Typing Teacher Name Role Phone Rhys Humphrey MD Primary Care Provide r Reason for Visit * Reason Onset Date Comments [facility]: Maintenance 07/09/2023 Encounter Details Date Type Department Care Team Description 07/09/2023 Telephone [facility], [facility] [address] [place] [address] 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 Use as directed. 1 Each 1 11/17/2019 Active Iron 325 (65 Fe) MG Oral Tablet Take 1 Tablet by mouth daily. 0 Active Cranberry 500 MG Oral Capsule Take 1 Capsule by mouth in the morning and 1 Capsule before bedtime. 50 Cap 0 01/18/2021 Active Klqtelp-Gdfdwmngt-J inc 333-133-5 MG Oral Tablet Take 1 Tablet by mouth daily. 0 Active Anoro Ellipta 62.5-25 MCG/INH Inhalation Aerosol Powder Breath Activated (umeclidinium-vilan terol)Indications:C OPD, moderate (HCC),COPD, group D, by GOLD 2017 classification ([facility]) Inhale by mouth 1 Puff [...] :COPD, group D, by GOLD 2017 classification ([facility]) Inhale 3 mL via nebulizer [...] mRNA, LNP-s, No Pre serve, 2-Dose Series ([employer]) 07/11/2021,11/14/2020,10/24/2020 Covid-19, Mrna, Lnp-s, Pf, B ivalent, 30 Mcg, IM, 12 yrs and above ([employer]) 07/21/2022 Pneumococcal Conjugate Vacc, 13 Valent (Prevnar) 03/16/2015 Pneumococcal Conjugate Vacci ne, 20-valent ([id number]) 07/21/2022 Pneumococcal Polysaccharide PPV23 (Pneumovax) 03/05/2019,07/18/2007 SEASONAL [...] encounter Miscellaneous Notes * Addendum Note - Hunter Sheffield MD - 07/09/2023 11:54 AM EDTAddended by: HUNTER SHEFFIELD on: 07/09/2023 11:54 AM Modules accepted: Orders * Telephone Encounter - Hunter Sheffield MD - 07/09/2023 11:53 AM EDT Symptomatic hypotension Rec: Cut losartan to 50 mg daily Continue to monitor Hunter Sheffield MD, [facility] [place], FAAFP Hot Top Liner [facility] Palliative Care Service Available on [employer] * Telephone Encounter - Denise Randall DUNCAN Pittman - 07/09/2023 9:38 AM EDT Images from [...] Moderate risk: Route to RNCM (Registered Nurse Manager Subway) and Advance Practitioner Route to RMC (Remote Medical Coordinator) documented in this encounter Plan of Treatment Upcoming Encounters Date Type Specialty Care Team Description 3 Imaging Radiology 3 Cardiac Studies Cardiac Studies 3 Office Visit Gynecology Obstetrics Shane Rowland MD [address] [place] [address] 3 Scheduled Telephone [facility] Nurse Triage [address] [place] [address] 3 Hospital Encounter Endoscopy Sangeetha Song DO [address] [place] [address] 3 Surgery Endoscopy Sangeetha Song DO [address] [place] [address] ESOPHAGOGASTRODUODENOSCOPY (EGD), FLEXIBLE, TRANSORAL, DIAGNOSTIC 3 Office Visit Dermatology Marycruz Almazan PA-C [address] [place] [address] [place] [address] 4 Office Visit Sleep Disorders Sosa Freeman CRNP [address] [place] [address] 4 Office Visit Gastroenterology Lizzette Silva CRNP [address] [place] [address] 4 Office Visit Family Medicine Rhys Humphrey MD [address] [place] [address] [place] [address] 4 Office Visit Cardiology Mi Neil PA-C [address] [place] [address] 4 Nurse Only Ancillary Stanton Nurse Annual Wellness [address] [place] [address] [place] [address] Scheduled Procedures Name Priority Associated Diagnoses Date/Ti [...] D LEVEL ONCE IN A LIFETIME-USE SMARTSET# [id number] Completed 06/29/2020, 03/16/2015 Pneumococcal Vaccine: 65+ Years [...] Documents on File Type Date Recorded Patient Interpretative Dancer Expl anation POLST 10/15/2019 3:17 PM POLST POLST 03/05/2019 POLST FORM Advance Directives and Living Will 01/27/2013 LIVING WILL Advance Directives and Living Will 01/27/2013 LIVING WILL Power of Dog Catcher 01/27/2013 POWER OF A TTORNEY Power of Dog Catcher 01/27/2013 POWER OF A TTORNEY Healthcare Agents on File Name Relationship Healthcare Agent Relationship Communication Cydney Benito Other - (no specific identity) Second Alternate Health Care Agent Anyi More Adult Child Health Care Roberth r of Dog Catcher Care Teams Typing Teacher Relationship Specialty Start Date End Date Rhys Humphrey MD [address] [place] [address] [place] [address] PCP - General Family Medicine 06/09/21 documented as of this encounter
--- OUTSIDE RECORDS SUMMARY | 2023-08-14 23:25 | External Medical Summary | Summary of Care ---
Author Name Unknown Organization [facility] Address [address] [place] [address] Phone [phone] Care Team Providers Care Trust [employer] Estates Paralegal Name Role Phone Rhys Humphrey MD Primary Care Provide r Reason for Visit * Reason Onset Date Comments [facility]: Maintenance 07/05/2023 Encounter Details Date Type Department Care Team Description 07/05/2023 Scheduled Telephone [facility], [facility] [address] [facility] [place] [address] [facility] [place] [address] Allergies Active Allergy Reactions Severity Noted Date Comments Adhesive Tape Other (Please comment),Hives High 09/29/2008 Caused welts Dextromethorphan-Gua ifenesin Neuro complications (Please comment) Medium 12/23/2021 Feels lightheaded/"foggy" documented as of this encounter (statuses as of 07/05/2023) Medications Medication Sig Dispensed Refills Start Date [...] before bedtime. 50 Cap 0 01/18/2021 Active Zevojxc-Huqzxwmkn-Db nc 333-133-5 MG Oral Tablet Take 1 Tablet by mouth daily. 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 90 Tablet 1 04/11/2023 Active Losartan Potassium 50 MG Oral Tablet (Cozaar)Indications: HTN, goal below 140/90 Take 2 Tablets by mouth daily. 180 Tablet 1 04/11/2023 Active Diclofenac Sodium 1 [...] every 6 hours as needed. 0 Active documented as of this encounter (statuses as of 07/05/2023) Active Problems Problem Noted Date Acute serous [...] as of this encounter (statuses as of 07/05/2023) Resolved Problems Problem Noted Date Resolved Date [...] as of this encounter (statuses as of 07/05/2023) Immunizations Name Administration Dates Next Due COVID-19 mRNA, LNP-s, No Pre serve, 2-Dose Series ([employer]) 07/11/2021,11/14/2020,10/24/2020 Covid-19, Mrna, Lnp-s, Pf, B ivalent, 30 Mcg, IM, 12 yrs and above ([employer]) 07/21/2022 Pneumococcal Conjugate Vacc, 13 Valent (Prevnar) 03/16/2015 Pneumococcal Conjugate Vacci ne, 20-valent ([id number]) 07/21/2022 Pneumococcal Polysaccharide PPV23 (Pneumovax) 03/05/2019,07/18/2007 SEASONAL INFLUENZA, PF, 6 M & Above, IM , (FLULAVAL or FLUZONE) 06/28/2018,07/28/2017 Season Influenza, Quad, PF, Adjuvanted, 65+ Yrs, IM (FLUAD) 06/16/2020 Seasonal Influenza, Quadriva lent Hd (Fluzone Hd) 06/07/2023,06/16/2022,06/08/2021 Seasonal Influenza, Quadriva lent, No Preserve, IM 06/27/2016,08/17/2015 Seasonal Influenza, Split, I IV3, With Preserve, Inj 09/18/2014,07/22/2014,07/01/2013,06/01,07/18/2011,07/12/2010,08/13/20,07/09/2008,07/18/2007,07/12/2006,1 11/29/2003,09/16/2001 09/16/2002 Seasonal Influenza, Trivalen t, Adjuvanted, [...] Telephone Encounter - Estee Verde RN - 07/05/2023 8:09 AM EDT Images from the original note were not included. [facility] Supervisor Rod Placing Monthly Visit Date: 07/05/2023 Time: 8:09 AM Name: Keisha Linares : 1940 Monthly follow up call to Keisha, agreed to speak with me, aware that call is being recorded for training purposes. Problems/Symptoms: HPI: Spoke with Keisha, states she just got back from the [place] with her friend, Had blood work a few days ago in [place], did receive her flu shot and waiting to get her COVID shot. Getting weekly physical therapy in her home, feels stronger. Unsure if she will have bone marrow biopsy done, states it scares her. Does not sleep very well at night, still does not have her CPAP from [facility]. Call to [facility] to follow up on CPAP machine, spoke with Olivia, states they are waiting on order from with her pressure settings, order from Dr. Blossom Grewal on 03.03.22 with CPAP settings and supplies found, order faxed to [facility] to [phone], Olivia will follow up to see if this will be acceptable and call back Spoke with [facility], states they will contact Dr. Blossom Grewal in Sleep Medicine to have neworder placed. Return call from Amy with [facility], she spoke with December at [facility], they will not write for new RX as she had sleep study in November, did not get enough information from it, was a no show for their follow up appointment was supposed to have it repeated but patient is refusing, will not be seen until October which is their earliest appointment Patient claims she tried to do the sleep study/test at home but does not have any oxygen in the home to complete the test. Constitutional: no weight loss, no weakness, and + fatigue, always tired as she does not sleep wellat night Weight 155.4 lbs this morning Resp: + chronic cough, + sputum in the morning, + wheezing in the morning will be using her nebulizer once off the phone, and + dyspnea with exertion. Cardiac: no chest pain, no orthopnea, +dyspnea on exertion, no edema, no abdominal bloating, no claudication, and no palpitations GI: no abdominal pain, no heartburn, no diarrhea, no constipation, no blood/melena, no nausea, no vomiting, + blood in stool 3 weeks ago, scheduled for Endo on 08/10/23, states she has to watch what she eats Musculoskeletal: no significant joint or muscle pain and no swelling Neuro: no memory loss, no weakness, no falling, + numbness/tingling to both legs, takes gabapentin,and + vertigo at times, takes meclizine prn Medication Reconciliation: Does patient take medications as ordered: Yes, independent with daily medications No refills needed at this time Estee Verde RN 07/05/2023 documented in this encounter Plan of Treatment Upcoming Encounters Date Type Specialty Care Team Description 3 Imaging Radiology 3 Cardiac Studies Cardiac Studies 3 Office Visit Gynecology Obstetrics Shane Rowland MD [address] [place] [address] 3 Scheduled Telephone [facility] Nurse Triage [address] [place] [address] 3 Hospital Encounter Endoscopy Sangeetha Song DO [address] [place] [address] 3 Surgery Endoscopy Sangeetha Song DO [address] [place] [address] ESOPHAGOGASTRODUODENOSCOPY (EGD), FLEXIBLE, TRANSORAL, DIAGNOSTIC 3 Office Visit Dermatology Marycruz Almazan PA-C [address] [place] [address] [place] [address] 4 Office Visit Sleep Disorders Sosa Freeman CRNP [address] [place] [address] 4 Office Visit Gastroenterology Lizzette Silva CRNP [address] [place] [address] 4 Office Visit Family Medicine hRys Humphrey MD [address] [place] [address] [place] [address] 4 Office Visit Cardiology Mi Neil PA-C [address] [place] [address] 4 Nurse Only Ancillary Stanton, Nurse Annual [address] [place] [address] Scheduled Procedures Name Priority Associated Diagnoses Date/Ti [...] D LEVEL ONCE IN A LIFETIME-USE SMARTSET# [id number] Completed 06/29/2020, 03/16/2015 Pneumococcal Vaccine: 65+ Years [...] Documents on File Type Date Recorded Patient Order Fulfillment Specialist Expl anation POLST 10/15/2019 3:17 PM POLST POLST 03/05/2019 POLST FORM Advance Directives and Living Will 01/27/2013 LIVING WILL Advance Directives and Living Will 01/27/2013 LIVING WILL Power of Airplane Navigator 01/27/2013 POWER OF A TTORNEY Power of Airplane Navigator 01/27/2013 POWER OF A TTORNEY Healthcare Agents on File Name Relationship Healthcare Agent Relationship Communication Cydney Benito Other - (no specific identity) Second Alternate Health Care Agent Anyi More Adult Child Health Care Roberth r of Airplane Navigator Care Teams Trust And Estates Paralegal Relationship Specialty Start Date End Date Rhys Humphrey MD [address] [place] [address] [place] [address] PCP - General Family Medicine 06/09/21 documented as of this encounter
--- OUTSIDE RECORDS SUMMARY | 2023-08-14 23:25 | External Medical Summary | Summary of Care ---
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 50 Cap 0 01/18/2021 Active Wkjyecr-Amqiijbjq-Hr nc 333-133-5 MG Oral Tablet Take 1 Tablet by mouth daily. 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),COPD, group D, by GOLD [...] as of this encounter (statuses as of 07/03/2023) Active Problems Problem Noted Date Acute serous [...] Medication Regimen o Other: anoro, arnradha, singarikir, abdoulbs Self-Management plan o Prednisone 40mg daily for [...] as of this encounter (statuses as of 07/03/2023) Resolved Problems Problem Noted Date Resolved Date [...] as of this encounter (statuses as of 07/03/2023) Immunizations Name Administration Dates Next Due COVID-19 mRNA, LNP-s, No Pre serve, 2-Dose Series ([employer]) 07/11/2021,11/14/2020,10/24/2020 Covid-19, Mrna, Lnp-s, Pf, B ivalent, 30 Mcg, IM, 12 yrs and above ([employer]) 07/21/2022 Pneumococcal Conjugate Vacc, 13 Valent (Prevnar) 03/16/2015 Pneumococcal Conjugate Vacci ne, 20-valent ([id number]) 07/21/2022 Pneumococcal Polysaccharide PPV23 (Pneumovax) 03/05/2019,07/18/2007 SEASONAL [...] Description 3 Scheduled Telephone [facility] Nurse Triage [address] [place] [address] 3 Imaging Radiology 3 Cardiac Studies Cardiac Studies 3 Office Visit Gynecology Obstetrics Shane Rowland MD [address] [place] [address] 3 Hospital Encounter Endoscopy Sangeetha Song DO [address] [place] [address] 3 Surgery Endoscopy Sangeetha Song DO [address] [place], [place] [address] ESOPHAGOGASTRODUODENOSCOPY (EGD), FLEXIBLE, TRANSORAL, DIAGNOSTIC 3 Office Visit Dermatology Marycruz Almazan PA-C [address] [place] [address] [place] [address] 4 Office Visit Sleep Disorders Sosa Freeman CRNP [address] [place] [address] 4 Office Visit Gastroenterology Lizzette Silva CRNP [address] [place] [address] 4 Office Visit Family Medicine Rhys Humphrey MD [address] [place] [address] [place] [address] 4 Office Visit Cardiology Mi Neil PA-C [address] [place] [address] 4 Nurse Only Ancillary [place], Nurse Annual Wellness [address] [place] [address] [place] [address] Pending Results Name Type Priority Associated Diagnoses Date /Time MYCODE SUBSEQUENT ADULT Lab Routine [employer] Other*[id number] 07/03/2023 3:34 PM EDT CBC WITH WBC DIFFERENTIAL Lab Routine Occult blood positive stool Anemia, unspecified type 07/03/2023 3:34 PM EDT COMPREHENSIVE METABOLIC PANEL Lab Routine 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) History of iron deficiency anemia 07/03/2023 3:34 PM EDT IRON SCREEN, INCLUDING TIBC Lab Routine 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) History of iron deficiency anemia 07/03/2023 3:34 PM EDT FERRITIN Lab Routine 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) History of iron deficiency anemia 07/03/2023 3:34 PM EDT RETICULOCYTE PANEL Lab Routine 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) History of iron deficiency anemia 07/03/2023 3:34 PM EDT LD Lab Routine 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) History of iron deficiency anemia 07/03/2023 3:34 PM EDT SERUM PROTEIN ELECTROPHORESIS REFLEX PROFILE Lab Routine 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) History of iron deficiency anemia 07/03/2023 3:34 PM EDT SERUM FREE LIGHT CHAINS Lab Routine 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) History of iron deficiency anemia 07/03/2023 3:34 PM EDT IMMUNOGLOBULIN QUANTITATIVE Lab Routine 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) History of iron deficiency anemia 07/03/2023 3:34 PM EDT MYCODE SST1 Lab Routine [employer] Other*[id number] 07/03/2023 3:34 PM EDT MYCODE SST2 Lab Routine [employer] Other*[id number] 07/03/2023 3:34 PM EDT CBC Lab Routine Occult blood positive stool Anemia, unspecified type 07/03/2023 3:34 PM EDT DIFFERENTIAL, AUTOMATED Lab Routine Occult blood positive stool Anemia, unspecified type 07/03/2023 3:34 PM EDT Scheduled Procedures Name Priority Associated Diagnoses [...] history exists Depression Screening 03/16/2024 03/16/2023 GFR 06/13/2024 06/13/2023, 09/03/2023, 09/26/2022, Additional history exists O2 ASSESSMENT COMPLETED IN PAST YEAR FOR COPD 06/20/2024 06/20/2023 Albumin/Creatinine Ratio 04/28/2025 04/28/2022 DTaP,Tdap,and Td Vaccines (3 - Td or Tdap) 09/17/2029 09/17/2019, 08/10/2011, 10/01/2001 Zoster Vaccines Completed 04/25/2020, 08/31, 07/22/2012 VITAMIN D LEVEL ONCE IN A LIFETIME-USE SMARTSET# [id number] Completed 06/29/2020, 03/16/2015 Pneumococcal Vaccine: 65+ Years [...] as of this encounter Visit Diagnoses Diagnosis [employer] Other*[id number] Occult blood positive stool Nonspecific abnormal finding in stool contents Anemia, unspecified type 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 History of iron deficiency anemia Personal history of diseases of blood and blood-forming organs Other iron deficiency anemia documented in this encounter Advance Directives Documents on File Type Date Recorded Patient Ferruler Expl anation POLST 10/15/2019 3:17 PM POLST POLST 03/05/2019 POLST FORM Advance Directives and Living Will 01/27/2013 LIVING WILL Advance Directives and Living Will 01/27/2013 LIVING WILL Power of Wood Casket Assembler 01/27/2013 POWER OF A TTORNEY Power of Wood Casket Assembler 01/27/2013 POWER OF A TTORNEY Healthcare Agents on File Name Relationship Healthcare Agent Relationship Communication Cydney Benito Other - (no specific identity) Second Alternate Health Care Agent Anyi More Adult Child Health Care Roberth r of Wood Casket Assembler Care Teams Corporate Tax Preparer Relationship Specialty Start Date End Date Rhys Humphrey MD [address] [place] [address] [place] [address] PCP - General Family Medicine 06/09/21 documented as of this encounter
--- OUTSIDE RECORDS SUMMARY | 2023-08-14 23:25 | External Medical Summary | Summary of Care ---
Author Name Unknown Organization [facility] Address [address] [place] [address] Phone [phone] Care Team Providers Care Dock Or Pier Laborer Name Role Phone Rhys Humprhey MD Primary Care Provide r Reason for Visit * Reason Onset Date Comments [facility]: Maintenance 07/09/2023 Encounter Details Date Type Department Care Team Description 07/09/2023 Telephone [facility], [facility] [address] [place] [address] [facility], Nurse [facility] [address] [place] [address] [facility]: Maintenance Allergies Active Allergy [...] before bedtime. 50 Cap 0 01/18/2021 Active Eehadnr-Elnbygkst-Co nc 333-133-5 MG Oral Tablet Take 1 Tablet by mouth daily. 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 180 Tablet 1 07/06/2023 Active documented as of this encounter (statuses [...] mRNA, LNP-s, No Pre serve, 2-Dose Series ([employer]) 07/11/2021,11/14/2020,10/24/2020 Covid-19, Mrna, Lnp-s, Pf, B ivalent, 30 Mcg, IM, 12 yrs and above ([employer]) 07/21/2022 Pneumococcal Conjugate Vacc, 13 Valent (Prevnar) 03/16/2015 Pneumococcal Conjugate Vacci ne, 20-valent ([id number]) 07/21/2022 Pneumococcal Polysaccharide PPV23 (Pneumovax) 03/05/2019,07/18/2007 SEASONAL [...] Telephone Encounter - Denise Pittman, DUNCAN - 07/09/2023 9:38 AM EDT Images from [...] Moderate risk: Route to RNCM (Registered Nurse Singeing Torch Operator) and Advance Practitioner Route to RM (Remote Medical Coordinator) documented in this encounter Plan of Treatment Upcoming Encounters Date Type Specialty Care Team Description 3 Imaging Radiology 3 Cardiac Studies Cardiac Studies 3 Office Visit Gynecology Obstetrics Shane Rowland MD [address] [place] [address] 3 Scheduled Telephone [facility] [place] [place] Nurse Triage [address] [place] [address] 3 Hospital Encounter Endoscopy Sangeetha Song DO [address] [place] [address] 3 Surgery Endoscopy Sangeetha Song DO [address] [place] [address] ESOPHAGOGASTRODUODENOSCOPY (EGD), FLEXIBLE, TRANSORAL, DIAGNOSTIC 3 Office Visit Dermatology Marycruz Almazan PA-C [address] [place] [address] [place] [address] 4 Office Visit Sleep Disorders Sosa Freeman CRNP [address] [place] [address] 4 Office Visit Gastroenterology Lizzette Silva CRNP [address] [place] [address] 4 Office Visit Family Medicine Rhys Humphrey MD [address] [place] [address] [place] [address] 4 Office Visit Cardiology Mi Neil PA-C [address] [place] [address] 4 Nurse Only Ancillary [place], Nurse Annual Wellness [address] [place] [address] [place] [address] Scheduled Procedures Name Priority Associated Diagnoses Date/Ti [...] D LEVEL ONCE IN A LIFETIME-USE SMARTSET# [id number] Completed 06/29/2020, 03/16/2015 Pneumococcal Vaccine: 65+ Years [...] Documents on File Type Date Recorded Patient Equine Manager Expl anation POLST 10/15/2019 3:17 PM POLST POLST 03/05/2019 POLST FORM Advance Directives and Living Will 01/27/2013 LIVING WILL Advance Directives and Living Will 01/27/2013 LIVING WILL Power of Bias Binding Folder 01/27/2013 POWER OF A TTORNEY Power of Bias Binding Folder 01/27/2013 POWER OF A TTORNEY Healthcare Agents on File Name Relationship Healthcare Agent Relationship Communication Cydney Benito Other - (no specific identity) Second Alternate Health Care Agent Anyi More Adult Child Health Care Roberth r of Bias Binding Folder Care Teams Dock Or Pier Laborer Relationship Specialty Start Date End Date Rhys Humphrey MD [address] [place] [address] [place] [address] PCP - General Family Medicine 06/09/21 documented as of this encounter
--- OUTSIDE RECORDS SUMMARY | 2023-08-14 23:25 | External Medical Summary | Summary of Care ---
Author Name Unknown Organization [facility] Address [address] [place] [address] Phone [phone] Care Team Providers Care Motor Vehicle Assembler Name Role Phone Rhys Humphrey MD Primary Care Provide r Reason for Visit * Reason Onset Date Comments [facility]: Maintenance 07/05/2023 Encounter Details Date Type Department Care Team Description 07/05/2023 Scheduled Telephone [facility], [facility] [address] [place] [address] [facility] [place] [address] Allergies Active Allergy Reactions Severity Noted Date [...] before bedtime. 50 Cap 0 01/18/2021 Active Oihbbbx-Vllcjsilx-Xq nc 333-133-5 MG Oral Tablet Take 1 Tablet by mouth daily. 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 [facility] Handwriting Expert Monthly Visit Date: 07/05/2023 Time: 8:09 AM Name: Keisha Linares : 1940 Monthly follow up call to Keisha, agreed to speak with me, aware that call is being recorded for training purposes. Problems/Symptoms: HPI: Spoke with Keisha, states she just got back from the [place] with her friend, Had blood work a few days ago in [place], did receive her flu shot and waiting to get her COVID shot. Getting weekly physical therapy in her home, feels stronger. Unsure if she will have bone marrow biopsy done, states it scares her. Does not sleep very well at night, still does not have her CPAP from [facility]. Call to [facility] to follow up on CPAP machine, spoke with Olivia, states they are waiting on order from with her pressure settings, order from Dr. Blossom Grewal on 03.03.22 with CPAP settings and supplies found, order faxed to [facility] to [phone], Olivia will follow up to see if this will be acceptable and call back Spoke with [facility], states they will contact Dr. Blossom Grewal in Sleep Medicine to have neworder placed. Return call from Amy with [facility], she spoke with December at [facility], they will not write for new RX [...] Rowland MD [address] [place] [address] 3 Scheduled Telephone [facility] Nurse Triage [address] [place] [address] 3 Hospital Encounter Endoscopy Sangeetha Song DO [address] [place] [address] 3 Surgery Endoscopy Sangeetha Song DO [address] [place] [address] ESOPHAGOGASTRODUODENOSCOPY (EGD), FLEXIBLE, TRANSORAL, DIAGNOSTIC 3 Office Visit Dermatology Marycruz Almazan PA-C [address] [place] [address] [place] [address] 4 Office Visit Sleep Disorders Sosa Freeman CRNP [address] [place] [address] 4 Office Visit Gastroenterology Lizzette Silva CRNP [address] [place] [address] 4 Office Visit Family Medicine Rhys Humphrey MD [address] [place] [address] [place] [address] 4 Office Visit Cardiology Mi Neil PA-C [address] [place] [address] 4 Nurse Only Ancillary [place], Nurse Annual [address] [place] [address] Scheduled Procedures Name Priority Associated Diagnoses Date/Ti [...] D LEVEL ONCE IN A LIFETIME-USE SMARTSET# [id number] Completed 06/29/2020, 03/16/2015 Pneumococcal Vaccine: 65+ Years [...] Documents on File Type Date Recorded Patient Elevator Constructor Electric Expl anation POLST 10/15/2019 3:17 PM POLST POLST 03/05/2019 POLST FORM Advance Directives and Living Will 01/27/2013 LIVING WILL Advance Directives and Living Will 01/27/2013 LIVING WILL Power of Office Administration Instructor 01/27/2013 POWER OF A TTORNEY Power of Office Administration Instructor 01/27/2013 POWER OF A TTORNEY Healthcare Agents on File Name Relationship Healthcare Agent Relationship Communication Cydney Benito Other - (no specific identity) Second Alternate Health Care Agent Anyi More Adult Child Health Care Roberth r of Office Administration Instructor Care Teams Motor Vehicle Assembler Relationship Specialty Start Date End Date Rhys Humphrey MD [address] [place] [address] [place] [address] PCP - General Family Medicine 06/09/21 documented as of this encounter
--- OUTSIDE RECORDS SUMMARY | 2023-08-14 23:25 | External Medical Summary | Summary of Care ---
Author Name Unknown Organization [facility] Address [address] [place] [address] Phone [phone] Care Team Providers Care Junior Graphic Designer Name Role Phone Rhys Humphrey MD Primary Care Provide r Reason for Visit * Reason Onset Date Comments Test Results 07/06/2023 Encounter Details Date Type Department Care Team Description 07/06/2023 Telephone Family Medicine [address] [id number] Rhys Humphrey MD [address] [place] [address] [place] [address] Test Results Allergies Active Allergy Reactions Severity Noted Date Comments Adhesive Tape Other (Please comment),Hives High 09/29/2008 Caused welts Dextromethorphan-Gua ifenesin Neuro complications (Please comment) Medium 12/23/2021 Feels lightheaded/"foggy" documented as of this encounter (statuses as of 07/06/2023) Medications Medication Sig Dispensed Refills Start Date [...] before bedtime. 50 Cap 0 01/18/2021 Active Pykoxbl-Bzrndmbyp-Oq nc 333-133-5 MG Oral Tablet Take 1 Tablet by mouth daily. 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),COPD, group D, by GOLD 2017 classification ([facility]) Inhale by mouth 1 Puff [...] COPD, group D, by GOLD 2017 classification ([facility]) Inhale 3 mL via nebulizer [...] as of this encounter (statuses as of 07/06/2023) Active Problems Problem Noted Date Acute serous [...] as of this encounter (statuses as of 07/06/2023) Resolved Problems Problem Noted Date Resolved Date [...] as of this encounter (statuses as of 07/06/2023) Immunizations Name Administration Dates Next Due COVID-19 mRNA, LNP-s, No Pre serve, 2-Dose Series ([employer]) 07/11/2021,11/14/2020,10/24/2020 Covid-19, Mrna, Lnp-s, Pf, B ivalent, 30 Mcg, IM, 12 yrs and above ([employer]) 07/21/2022 Pneumococcal Conjugate Vacc, 13 Valent (Prevnar) 03/16/2015 Pneumococcal Conjugate Vacci ne, 20-valent ([id number]) 07/21/2022 Pneumococcal Polysaccharide PPV23 (Pneumovax) 03/05/2019,07/18/2007 SEASONAL [...] encounter Miscellaneous Notes * Telephone Encounter - Rhys Humphrey MD - 07/06/2023 5:03 PM EDT Spoke to the pt - she is taking iron - no sign of bloody stool - sched to undergo EGD - already est with hematology: getting CT abd, - will repeat cbc again in 3 weeks documented in this encounter Plan of Treatment Upcoming Encounters Date Type Specialty Care Team Description 3 Imaging Radiology 3 Cardiac Studies Cardiac Studies 3 Office Visit Gynecology Obstetrics Janett, Shane, MD [address] [place] [address] 3 Scheduled Telephone [facility] Nurse Triage [address] [place] [phone] (Fax) 3 Hospital Encounter Endoscopy Sangeetha Song DO [address] [place] [address] 3 Surgery Endoscopy Sangeetha Song DO [address] [place] [address] ESOPHAGOGASTRODUODENOSCOPY (EGD), FLEXIBLE, TRANSORAL, DIAGNOSTIC 3 Office Visit Dermatology Marycruz Almazan PA-C [address] [place] [address] [place] [address] 4 Office Visit Sleep Disorders Sosa Freeman CRNP [address] [place] [place] [address] 4 Office Visit Gastroenterology Lizzette Silva CRNP [address] [place] [address] 4 Office Visit Family Medicine Rhys Humphrey MD [address] [place] [address] [place] [address] 4 Office Visit Cardiology Mi Neil PA-C [address] [place] [address] 4 Nurse Only Ancillary [place], Nurse Annual Wellness [address] [place] [address] [place] [address] Scheduled Orders Name Type Priority Associated Diagnoses Orde r Schedule CBC WITH WBC DIFFERENTIAL Lab Routine Anemia, unspecified type Expected: 07/27/2023 (Approximate), Expires: 07/06/2024 Scheduled Procedures Name Priority Associated Diagnoses Date/Ti [...] D LEVEL ONCE IN A LIFETIME-USE SMARTSET# [id number] Completed 06/29/2020, 03/16/2015 Pneumococcal Vaccine: 65+ Years [...] this encounter Visit Diagnoses Diagnosis Anemia, unspecified type- Primary Other iron deficiency anemia documented in this encounter Advance Directives Documents on File Type Date Recorded Patient Core Cleaner Expl anation POLST 10/15/2019 3:17 PM POLST POLST 03/05/2019 POLST FORM Advance Directives and Living Will 01/27/2013 LIVING WILL Advance Directives and Living Will 01/27/2013 LIVING WILL Power of Particleboard Factory Worker 01/27/2013 POWER OF A TTORNEY Power of Particleboard Factory Worker 01/27/2013 POWER OF A TTORNEY Healthcare Agents on File Name Relationship Healthcare Agent Relationship Communication Cydney Benito Other - (no specific identity) Second Alternate Health Care Agent Anyi More Adult Child Health Care Roberth r of Particleboard Factory Worker Care Teams Junior Graphic Designer Relationship Specialty Start Date End Date Rhys Humphrey MD [address] [place] [address] [place] [address] PCP - General Family Medicine 06/09/21 documented as of this encounter
--- OUTSIDE RECORDS SUMMARY | 2023-08-14 23:25 | External Medical Summary | Summary of Care ---
Author Name Unknown Organization [facility] Address [address] [place] [address] Phone [phone] Care Team Providers Care Bottle Blower Name Role Phone Ollie Gonzalez MD Primary Care Provide r Reason for Visit * Reason Onset Date Comments Medication Refill 07/06/2023 Encounter Details Date Type Department Care Team Description 07/06/2023 Refill Family Medicine [address] [place] [address] Ollie Gonzalez MD [address] [place] [address] [place] [address] Allergies Active Allergy Reactions Severity Noted Date [...] before bedtime. 50 Cap 0 01/18/2021 Active Wnunwij-Gfrkdrvlr-Ax nc 333-133-5 MG Oral Tablet Take 1 Tablet by mouth daily. 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),COPD, group D, by GOLD [...] mRNA, LNP-s, No Pre serve, 2-Dose Series ([employer]) 07/11/2021,11/14/2020,10/24/2020 Covid-19, Mrna, Lnp-s, Pf, B ivalent, 30 Mcg, IM, 12 yrs and above ([employer]) 07/21/2022 Pneumococcal Conjugate Vacc, 13 Valent (Prevnar) 03/16/2015 Pneumococcal Conjugate Vacci ne, 20-valent ([id number]) 07/21/2022 Pneumococcal Polysaccharide PPV23 (Pneumovax) 03/05/2019,07/18/2007 SEASONAL [...] encounter Miscellaneous Notes * Telephone Encounter - Ollie Gonzalez MD - 07/06/2023 9:10 AM EDT Signed Prescriptions: Disp Refills Famotidine 20 MG Oral Tablet (Pepcid) 180 Ta*1 Sig: Take 1 Tablet by mouth 2 times a day as needed for Heartburn. Authorizing Provider: OLLIE GONZALEZ * Telephone Encounter - Kasey Vieyra RPh - 07/06/2023 9:02 AM EDT Patient is requesting refills for Famotidine, but prescription has now . Rx pended for your review. Please review and approve if appropriate. Pending Prescriptions: Disp Refills Famotidine 20 MG Oral Tablet (Pepcid) 180 Ta*1 Sig: Take 1 Tablet by mouth 2 times a day as needed for Heartburn. Thank you, Guille MirelesD Clinical Pharmacist [facility] ([facility]) (formerly Telepharmacy) 07/06/2023 9:05 AM documented in this encounter Plan of Treatment Upcoming Encounters Date Type Specialty Care Team Description 3 Imaging Radiology 3 Cardiac Studies Cardiac Studies 3 Office Visit Gynecology Obstetrics Shane Rowland MD [address] [place] [address] 3 Scheduled Telephone [facility] Nurse Triage [address] [place] [address] 3 Hospital Encounter Endoscopy Sangeetha Song DO [address] [place] [address] 3 Surgery Endoscopy Sangeetha Song DO [address] [place] [address] ESOPHAGOGASTRODUODENOSCOPY (EGD), FLEXIBLE, TRANSORAL, DIAGNOSTIC 3 Office Visit Dermatology Marycruz Almazan PA-C [address] [place] [address] [place] [address] 4 Office Visit Sleep Disorders Sosa Freeman CRNP [address] [place] [address] 4 Office Visit Gastroenterology Lizzette Silva CRNP [address] [place] [address] 4 Office Visit Family Medicine Ollie Gonzalez MD [address] [place] [address] [place] [address] 4 Office Visit Cardiology Mi Neil PA-C [address] [place] [address] 4 Nurse Only Ancillary [place], Nurse Annual Wellness [address] [place] [address] [place] [address] Scheduled Procedures Name Priority Associated Diagnoses Date/Ti [...] D LEVEL ONCE IN A LIFETIME-USE SMARTSET# [id number] Completed 06/29/2020, 03/16/2015 Pneumococcal Vaccine: 65+ Years [...] Documents on File Type Date Recorded 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 POLST 10/15/2019 3:17 PM POLST POLST 03/05/2019 POLST FORM Advance Directives and Living Will 01/27/2013 LIVING WILL Advance Directives and Living Will 01/27/2013 LIVING WILL Power of Mastic Floor Layer 01/27/2013 POWER OF A TTORNEY Power of Mastic Floor Layer 01/27/2013 POWER OF A TTORNEY Healthcare Agents on File Name Relationship Healthcare Agent Relationship Communication Cydney Benito Other - (no specific identity) Second Alternate Health Care Agent Anyi More Adult Child Health Care Roberth r of Mastic Floor Layer Care Teams Bottle Blower Relationship Specialty Start Date End Date Ollie Gonzalez MD [address] [place] [address] [place] [phone] PCP - General Family Medicine 06/09/21 documented as of this encounter
--- OUTSIDE RECORDS SUMMARY | 2023-08-14 23:25 | External Medical Summary | Summary of Care ---
Author Name Unknown Organization [facility] Address [address] [place] [address] Phone [phone] Care Team Providers Care Rx Specialist Name Role Phone Rhys Humphrey MD Primary Care Provide r Reason for Visit * Reason Comments Medication Discussion Encounter Details Date Type Department Care Team Description 07/03/2023 Pharmacy Pharmacy Call Center [address] 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 Use as directed. 1 Each 1 11/17/2019 Active Iron 325 (65 Fe) MG Oral Tablet Take 1 Tablet by mouth daily. 0 Active Cranberry 500 MG Oral Capsule Take 1 Capsule by mouth in the morning and 1 Capsule before bedtime. 50 Cap 0 01/18/2021 Active Pjelkrf-Kklalunuu-T inc 333-133-5 MG Oral Tablet Take 1 Tablet by mouth daily. 0 Active Anoro Ellipta 62.5-25 MCG/INH Inhalation Aerosol Powder Breath Activated (umeclidinium-vilan terol)Indications:C OPD, moderate (HCC),COPD, group D, by GOLD 2017 classification ([facility]) Inhale by mouth 1 Puff in [...] Base) MCG/ACT Inhalation Aerosol SolutionIndications :COPD, moderate ([facility]) Inhale [...] needed. Apply to vaginal area 0 Active Famotidine 20 MG Oral Tablet (Pepcid) Take 1 Tablet by mouth 2 times a day as needed for Heartburn. 180 Tablet 1 07/06/2023 Active Famotidine 20 MG Oral Tablet (Pepcid) Take 1 Tab by mouth 2 times a day as needed for Heartburn. 180 Tab 3 05/23/2021 3 Discontinu ed(Medicat ion List Clean Up) guaiFENesin ER 600 MG Oral Tablet Extended Release 12 Hour Take 1 Tablet by mouth in the morning and 1 Tablet before bedtime. 0 3 Discontinu ed(Medicat ion List Clean Up) documented as of this encounter (statuses as [...] mRNA, LNP-s, No Pre serve, 2-Dose Series ([employer]) 07/11/2021,11/14/2020,10/24/2020 Covid-19, Mrna, Lnp-s, Pf, B ivalent, 30 Mcg, IM, 12 yrs and above ([employer]) 07/21/2022 Pneumococcal Conjugate Vacc, 13 Valent (Prevnar) 03/16/2015 Pneumococcal Conjugate Vacci ne, 20-valent ([id number]) 07/21/2022 Pneumococcal Polysaccharide PPV23 (Pneumovax) 03/05/2019,07/18/2007 SEASONAL [...] as of this encounter Progress Notes * Kasey Vieyra, [facility] - 07/03/2023 9:27 AM EDT Images from the original note were not included. PHARMACY MTM PROGRESS NOTE [facility] ([facility]) [address] [facility] [place] [id number] Service Delivery Delivery Method: Phone Outcome: CMR Completed Health Profile Current Conditions: Allergies, Arthritis, Blood Clot Prevention, COPD, Fluid Rentention, Heartburn,High Blood Pressure, High Cholesterol, Nerve Pain, and Pain Drug allergies & side effects: Review of patient's allergies indicates: Allergen Reactions Adhesive Tape Other (Please comment) and Hives Caused welts Ginger Watsonssopal Dm [Dextromethorphan-Guaifenesin] Neuro complications (Please comment) Feels lightheaded/"foggy" Med List Home Medications Provider Acetaminophen 325 MG Oral Tablet (Tylenol) History Per Patient Associated Diagnoses: -- Albuterol Sulfate HFA 108 (90 Base) MCG/ACT Inhalation Aerosol Solution Rhys Humphrey MD Inhale 2 Puffs by mouth every 4 hours as needed for Cough, Shortness of Breath or Wheezing. Associated Diagnoses: COPD, moderate ([facility]) Anoro Ellipta 62.5-25 MCG/INH Inhalation Aerosol Powder Breath Activated (umeclidinium-vilanterol) Rhys Humphrey MD Inhale by mouth 1 Puff in the morning. Associated Diagnoses: COPD, moderate (HCC), COPD, group D, by GOLD 2017 classification (HCC) Aspirin 81 MG Oral Tablet Chewable History Per Patient Associated Diagnoses: -- Atorvastatin Calcium 40 MG Oral Tablet (Lipitor) Rhys Humphrey MD Take 1 Tablet by mouth daily. Associated Diagnoses: Dyslipidemia, goal LDL below 100 Benzonatate 100 MG Oral Capsule Rhys Humphrey MD Take 1 Capsule by mouth 3 times a day as needed for Cough. Associated Diagnoses: -- Owctyxh-Qetxlnefn-Uimd 333-133-5 MG Oral Tablet History Per Patient Associated Diagnoses: -- Calmoseptine 0.44-20.6 % External Ointment (Menthol-Zinc Oxide) History Per Patient Associated Diagnoses: -- Clopidogrel Bisulfate 75 MG Oral Tablet (pLAVix) Rhys Humphrey MD Take 1 Tablet by mouth daily. Associated Diagnoses: TIA (transient ischemic attack) Cranberry 500 MG Oral Capsule Naida Alfred MD Associated Diagnoses: -- Diclofenac Sodium 1 % External Gel (Voltaren) Rhys Humphrey MD Apply 2 g topically to affected area daily as needed for Pain. Apply to L shoulder Associated Diagnoses: Chronic left shoulder pain DIURETIC TITRATION PLAN Maliha Fonseca, DO If no improvement on day 3, contact heart failure managing provider. Associated Diagnoses: -- Docusate Sodium 100 MG Oral Capsule (Colace) History Per Patient Associated Diagnoses: -- Famotidine 20 MG Oral Tablet (Pepcid) Rhys Humphrey MD Take 1 Tablet by mouth 2 times a day as needed for Heartburn. Associated Diagnoses: -- FISH OIL 1000 MG PO CAPS History Per Patient Associated Diagnoses: -- Fluticasone Furoate 100 MCG/ACT Inhalation Aerosol Powder Breath Activated (ARNUITY ellipta) Rhys Humphrey MD Inhale by mouth 1 Puff in the morning. In addition to anoro. Associated Diagnoses: -- Fluticasone Propionate 50 MCG/ACT Nasal Suspension Gregory Martin MD Administer 2 Sprays into each nostril in the morning. Associated Diagnoses: Dysfunction of both eustachian tubes Furosemide 40 MG Oral Tablet (Lasix) Herminio Bynum, DO One tablet daily with an extra tablet as needed for swelling Associated Diagnoses: Chronic diastolic congestive heart failure (HCC) Notes: Patient gets compliance packaging. Start date is 06/19/2023. Gabapentin 300 MG Oral Capsule (Neurontin) Rhys Humphrey MD Take 3 Capsules by mouth every night at bedtime. Associated Diagnoses: Peripheral polyneuropathy, Pain in both lower extremities Ipratropium-Albuterol 0.5-2.5 (3) MG/3ML Inhalation Solution (Duoneb) Rhys Humphrey MD Inhale 3 mL via nebulizer every 6 hours as needed for Shortness of Breath or Wheezing. Associated Diagnoses: COPD, group D, by GOLD 2017 classification ([facility]) Iron 325 (65 Fe) MG Oral Tablet History Per Patient Associated Diagnoses: -- Loratadine 10 MG Oral Tablet (Claritin) Gregory Martin MD Take 1 Tablet by mouth in the morning. For nasal congestion and ear pressure. Associated Diagnoses: Dysfunction of both eustachian tubes Losartan Potassium 50 MG Oral Tablet (Cozaar) Rhys Humphrey MD Take 2 Tablets by mouth daily. Associated Diagnoses: HTN, goal below 140/90 Meclizine HCl 12.5 MG Oral Tablet (Antivert) Rhys Humphrey MD Take 1 Tablet by mouth 3 times a day as needed for Dizziness. Associated Diagnoses: Vertigo Montelukast Sodium 10 MG Oral Tablet (Singulair) Rhys Humphrey MD TAKE ONE TABLET BY MOUTH EVERY DAY Associated Diagnoses: Moderate chronic obstructive pulmonary disease (HCC) Notes: Pateint gets compliance packaging, Start date is 01/30/2023. Multiple Vitamins-Minerals (CENTRUM SILVER 50+WOMEN) TABS History Per Patient Associated Diagnoses: -- Nebulizers (NEBULIZER COMPRESSOR) [facility] Jg Kerr DO Inhale via nebulizer. Use as directed. Associated Diagnoses: COPD, moderate (HCC) oxygen GAS BreanaPITER Nolasco 2.5 LPM bled through cpap. Patient not taking: Reported on 06/20/2023 Associated Diagnoses: ISELA on CPAP Notes: Waiting to receive supplies - in transit as of 07/03/23 Pantoprazole Sodium 40 MG Oral Tablet Delayed Release (Protonix) Rhys Humphrey MD TAKE ONE TABLET EVERY DAY Associated Diagnoses: -- predniSONE 20 MG Oral Tablet (Deltasone) () Isaac Parker PA-C Take 2 Tablets by mouth in the morning for 5 days. Associated Diagnoses: -- Premarin 0.625 MG/GM Vaginal Cream (Estrogens Conjugated) Rhys Humphrey MD Administer 0.5 g into the vagina at bedtime on Sunday and Sunday only. Associated Diagnoses: Vaginal irritation, Atrophic vaginitis Ramelteon 8 MG Oral Tablet (Rozerem) Gregory Martin MD TAKE ONE TABLET AT BEDTIME Patient not taking: Reported on 06/20/2023 Associated Diagnoses: Insomnia, unspecified type Notes: Patient gets compliance packaging. Start date is 06/19/2023. Ongoing Comment Asia Gambino RN 04/28/2014 2:30 PM Pt states no changes to meds. BAR 04/28/14 TIPs None Action Plan 1. What type of item is this? Related to a current medication (Ipratropium-albuterol) Describe the item for the patient takeaway: Using your nebulizer treatment Describe what the patient should do (for the patient takeaway): Your Ipratropium-albuterol is your nebulizer rescue therapy. This medication can be taken every 6 hours, and helps you breathe easier. It starts working immediately. Your nebulizer should be taken as: one vial puffs by mouth every 6 hours as needed for breathing. Reach out to your doctor if you are needing this medication more often than prescribed. Takeaway Service Information Date CMR was completed: 07/03/2023 Who was the recipient of the CMR service: Patient Was the patient in a shelter care (LTC) facility when the CMR was completed? No Pharmacist's availability for questions: Sunday-Sunday 8:00am-4:30pm Takeaway Information Will the Patient Takeaway be sent to the Patient or someone else? Patient Language Template for the Patient Takeaway: Belgian Additional notes for the Patient Takeaway (optional): N/A I attest that I have reviewed and updated the patient's conditions, allergies, and medications to the best of my ability. Patient Access: Is patient utilizing [facility]? No; compliance packaging at pharmacy Is patient utilizing [facility]? Yes Additional Call Notes Medication list collected by on call pharmacy technicianPatrica. Patient appears adherent to regimen. Medications pill packed at retail pharmacy. Discussed current breathing control and patient reports she gets SOB in the evenings. She states albuterol inhaler is not always strong enough, so encouraged to use nebulizer treatment up to 4 times daily when needed. Patient would save on copays by switching to triple therapy inhaler, but she has u nfortunately failed Trelegy in past due to worsening SOB. Patient reports she checks BP at home daily and results are sent to nurse who is monitoring. Shereports values have been well controlled. Rx for famotidine has - will pend updated to PCP. Reviewed care gaps - DEXA scan ordered but never completed by patient. Provided phone number and encouraged to reschedule scan. ~35 minute CMR Kasey Vieyra [facility] Clinical Pharmacist Centralized Clinical Pharmacy Services ([facility]) 07/03/2023, 10:16 AM documented in this encounter Plan of Treatment Upcoming Encounters Date Type Specialty Care Team Description 3 Imaging Radiology 3 Cardiac Studies Cardiac Studies 3 Office Visit Gynecology Obstetrics Shane Rowland MD [address] [place] [address] 3 Scheduled Telephone [facility] Nurse Triage [address] [place] [address] 3 Hospital Encounter Endoscopy Sangeetha Song DO [address] [place] [address] 3 Surgery Endoscopy Sangeetha Song DO [address] [place] [address] ESOPHAGOGASTRODUODENOSCOPY (EGD), FLEXIBLE, TRANSORAL, DIAGNOSTIC 3 Office Visit Dermatology Marycruz Almazan PA-C [address] [place] [address] [place] [address] 4 Office Visit Sleep Disorders Sosa Freeman CRNP [address] [place] [address] 4 Office Visit Gastroenterology Lizzette Silva CRNP [address] [place] [address] 4 Office Visit Family Medicine Rhys Humphrey MD [address] [place] [address] [place] [address] 4 Office Visit Cardiology Mi Neil PA-C [address] [place] [address] 4 Nurse Only Ancillary [place], Nurse Annual Wellness [address] [place] [address] [place] [address] Scheduled Procedures Name Priority Associated Diagnoses Date/Ti [...] D LEVEL ONCE IN A LIFETIME-USE SMARTSET# [id number] Completed 06/29/2020, 03/16/2015 Pneumococcal Vaccine: 65+ Years [...] as of this encounter Visit Diagnoses Diagnosis Encounter for medication review- Primary Encounter for long-term (current) use of other medications Other iron deficiency anemia documented in this encounter Advance Directives Documents on File Type Date Recorded Patient Intensive Care Ambulance Paramedic Expl anation POLST 10/15/2019 3:17 PM POLST POLST 03/05/2019 POLST FORM Advance Directives and Living Will 01/27/2013 LIVING WILL Advance Directives and Living Will 01/27/2013 LIVING WILL Power of Tongue Lining Stitcher 01/27/2013 POWER OF A TTORNEY Power of Tongue Lining Stitcher 01/27/2013 POWER OF A TTORNEY Healthcare Agents on File Name Relationship Healthcare Agent Relationship Communication Cydney Benito Other - (no specific identity) Second Alternate Health Care Agent Anyi More Adult Child Health Care Roberth r of Tongue Lining Stitcher Care Teams Rx Specialist Relationship Specialty Start Date End Date Rhys Humphrey MD [address] [place] [address] [place] [address] PCP - General Family Medicine 06/09/21 documented as of this encounter
--- OUTSIDE RECORDS SUMMARY | 2023-08-14 23:25 | External Medical Summary | Summary of Care ---
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) History of iron deficiency anemia Normocytic anemia Procedures CT CHEST/ABDOMEN/PELVIS WITH IV CONTRAST WITH ORAL CONTRAST Gris Diaz CRNP [address] [place] [address] Referral ID Status Reason Start Date Expiration Date V isits Requested Visits Authorized [id number] Pending Review 07/03/2023 999 999 Reason for Visit * Reason Comments Follow Up * Evaluate & Treat - Unlimited Visits (Within 30 days (routine)) - Authorized Specialty Diagnoses / Procedures Referred By Alexsandra downs Referred To Contact Hematology/Oncology / Hematology Oncology Diagnoses Other iron deficiency anemia Lizzette Silva CRNP [address] [place] [address] Referral ID Status Reason Start Date Expiration Date Visits Requested Visits Authorized [id number] Authorized Specialty Services Required 06/20/2023 999 999 Encounter Details Date Type Department Care Team Description 07/03/2023 Office Visit Hematology/Oncology [place] [facility]vind Christensen [address] [facility] [place] [address] Gris Diaz CRNP [address] [place] [address] 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 50 Cap 0 01/18/2021 Active Xtlumpf-Eggghsejr-Rh nc 333-133-5 MG Oral Tablet Take 1 Tablet by mouth daily. 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),COPD, group D, by GOLD [...] mRNA, LNP-s, No Pre serve, 2-Dose Series (Precision Biopsy) 07/11/2021,11/14/2020,10/24/2020 Covid-19, Mrna, Lnp-s, Pf, B ivalent, 30 Mcg, IM, 12 yrs and above (Pfizer) 07/21/2022 Pneumococcal Conjugate Vacc, 13 Valent (Prevnar) 03/16/2015 Pneumococcal Conjugate Vacci ne, 20-valent ([id number]) 07/21/2022 Pneumococcal Polysaccharide PPV23 (Pneumovax) 03/05/2019,07/18/2007 SEASONAL [...] 46 Q uit: 10/01/2001 Smokeless Tobacco: Never Tobacco Cessation:Counseling Given: Not Answered Alcohol Use Standard Drinks/Week Comments No 0 [...] Sign Reading Time Taken Comments Blood Pressure 147/62 07/03/2023 2:34 PM EDT Pulse 70 07/03/2023 2:34 PM EDT Temperature 35.8 C (96.4 F) 07/03/2023 2 :34 PM EDT Respiratory Rate 16 07/03/2023 2:34 PM EDT Oxygen Saturation 89% 07/03/2023 2:3 4 PM EDT patient refused o2, denies dizziness or confusion Inhaled Oxygen Concentration - - Weight 71 kg (156 lb 9.6 oz) 07/03/2023 2:34 PM EDT Height - - Body Mass Index 26.88 06/21/2023 2:32 PM EDT documented in this encounter Progress Notes * Tiffanie Barnett LPN - 07/03/2023 2:36 PM EDT Patient identifed by name and birthdate Do you have any concerns about pain management for today's visit? No Living Will or Advance Directive for Health Care as noted on the problem list. [facility] is a way you can talk to your provider on line through e-mail. Would you like to sign up? I can activate it for you? ALREADY ACTIVE Filed Vitals: 07/03/23 1434 BP: 147/62 Pulse: 70 Resp: 16 Temp: 35.8 C (96.4 F) TempSrc: Tympanic SpO2: 89% Weight: 71 kg (156 lb 9.6 oz) * PITER Shen - 07/03/2023 2:30 PM EDT Images from the original note were not included. Hematology/Oncology Outpatient Clinic note [facility] [address] [facility] [address], [place] [address] Name: Keisha Linares Date: 07/03/2023 CHIEF COMPLAINT: Keisha Linares is a 82 year old female here today for f/u visit today. Patient of Dr. Martínez Lopes. From Patient chart confirmed with patient. From PITER Martinez note 12/08/21. 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 Diagnostic workup: - CT scan of the chest done in 11/2009 --> no evidence of pulmonary embolism, increase amount noted, thyroid nodule noted. - CT scan of the chest done on 05/31/2011 --> mild mediastinal lymphadenopathy with a right lowerparatracheal lymphadenopathy measuring 1.7 x 1.2 cm, no hilar or axillary lymphadenopathy. - CT scan of the abdomen and pelvis done for the evaluation of anemia on 04/02/2013 showed mesentericlymphadenopathy measuring 2.6 x 3.8 x 4.2 cm, 1.1 x 1.4 cm, 0.9 x 1.9 cm. No hepatomegaly, no splenomegaly noted. - CT scan of the chest done on 04/16/2013 showed stable borderline precarinal lymph node measuring 1x 2 cm, small several additional mediastinal lymph nodes appears to be stable. In his hematocrit. Left thyroid lobe nodules noted. -CT scan of the abdomen and pelvis done on 09/18/2013 showed slight enlargement of the mesenteric mass now measuring 5 x 3.6 cm (it was 4.2 x 2.6 cm earlier), no hepatomegaly or splenomegaly noted. -CT guided biopsy of the mesenteric mass done on 10/17/2013 at [facility] -->Low grade follicular lymphoma, grade 1/grade 2, could not be tested for t(14 ;18) because of hypocellular specimen. - clinical Analisa Arber staging --> stage III disease. No bone marrow bx in her case. Colonoscopy 09/11/21 HISTORY OF PRESENT ILLNESS: Keisha Linares is a 82 year old female with a history as outlined above. Currently here for f/u visit today. Patient has noticed some weight loss about 25 pounds. This is unexplained. This has actually stabilized since the summer. Has been having fluctuations in her BP so at times can be dizzy. Denies drenching night sweats. Denies any LAD. Denies abdominal pain, bloating or poor appetite. Denies any worsening SOB. Denies CP. Has recently started treatment for what is thought to be RLS. On gabapentin. 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 09/11/2008 Pulmonary emphysema (HCC) 04/16/2023 CXR TIA (transient ischemic attack) Past Surgical History: Procedure Laterality Date BREAST LESION,OTHER,EXCISION 1994 Breast Lesion Excise CERV;VAG CANCER SCREEN;PEL & B 03/2000 COLONOSCOPY 03/03/2013 diverticulosis, polyps, internal hemorrhoids COLONOSCOPY, DIAGNOSTIC (RECTUM) 07/31/2017 diverticulosis/[place] COLONOSCOPY, DIAGNOSTIC (RECTUM) 09/09/2021 diverticulosis / [facility] COLORECTAL CANCER SCREEN; NOT AT RISK 11/[address] ABDOMEN/PELVIS 04/02/2013 mesenteric lymphadenopathy concerning for lymphoma DIGITAL RECTAL EXAM,ANNUAL 03/2000 EGD, FLEXIBLE, DIAGNOSTIC 03/03/2013 mild gastritis EGD, FLEXIBLE, DIAGNOSTIC 07/31/2017 normal bx, hiatal hernia/[facility] EGD, FLEXIBLE, DIAGNOSTIC 10/14/2021 reflux esophagitis, hiatal hernia / [facility] EGD, FLEXIBLE, DIAGNOSTIC 09/09/2021 hiatal hernia / [facility] HEMORRHOIDECTOMY, SIMPLE, 1 COLUMN 1989 Hemorrhoidectomy,Int/Ext,Simple MAMMOGRAM SCREENING-BILATERAL 03/2000 SIGMOIDOSCOPY, DIAGNOSTIC 1996 SPIROMETRY B/A BRONCHODILATOR 01/06/2005 obstructive airway disease THROMBOENDARECTOMY W/PATCH,NECK INCISION Right carotid endarterectomy done in [place] TOTAL ABD HYSTERECTOMY W/WO REMOVAL OF TUBE(S) 1974 non cancer reasons TOTAL HIP REPLACEMENT & PROSTHESIS 08/19/2008 left-dr ilya gamboa Social History Socioeconomic History Marital status: Spouse name: Not on file Number of children: Not on file Years of education: Not on file Highest education level: Not on file Occupational History 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 Employer: [employer] Tobacco Use Smoking status: Former Packs/day: 0.50 Years: 46.00 Pack years: 23.00 Types: Cigarettes Quit date: 10/01/2001 Years since quittin.7 Smokeless tobacco: Never Vaping Use Vaping Use: Never used Substance and Sexual Activity Alcohol use: No Drug use: No Sexual activity: Yes Partners: Male Other Topics Concern Not on file Social History Narrative 10/2021 Social Determinants of Health Financial Resource Strain: Not on file Food Insecurity: No Food Insecurity Worried About Running Out of Food in the Last Year: Never true Ran Out of Food in the Last Year: Never true Transportation Needs: Not on file Physical Activity: Not on file Stress: Not on file Social Connections: Not on file Intimate Partner Violence: Not on file Housing Stability: Not on file Review of patient's allergies indicates: Allergen Reactions Adhesive Tape Other (Please comment) and Hives Caused welts Ginger Chauncey Dm [Dextromethorphan-Guaifenesin] Neuro complications (Please comment) Feels lightheaded/"foggy" Current Outpatient Medications Medication Sig Dispense Refill FISH OIL 1000 MG PO CAPS Take 1 Capsule by mouth in the morning. Multiple Vitamins-Minerals (CENTRUM SILVER 50+WOMEN) TABS Take 1 Tab by mouth daily. oxygen GAS 2.5 LPM bled through cpap. (Patient not taking: Reported on 06/20/2023) 1 Each 0 DIURETIC TITRATION PLAN If [...] and 1 Capsule before bedtime. 50 Cap Vdmqmkh-Qtrgpwoea-Zmdu 333-133-5 MG Oral Tablet Take 1 Tablet [...] as needed for Dizziness. 30 Tablet 0 Gabapentin 300 MG Oral Capsule (Neurontin) Take 3 Capsules by mouth every night at bedtime. 90 Capsule 3 Ipratropium-Albuterol 0.5-2.5 (3) MG/3ML Inhalation Solution (Duoneb) Inhale 3 mL via nebulizer every 6 hours as needed for Shortness of Breath or Wheezing. 360 mL 3 Atorvastatin Calcium 40 MG Oral Tablet (Lipitor) Take 1 Tablet by mouth daily. 90 Tablet 1 Clopidogrel Bisulfate 75 MG Oral Tablet (pLAVix) Take 1 Tablet by mouth daily. 90 Tablet 1 Losartan Potassium 50 MG Oral Tablet (Cozaar) Take 2 Tablets by mouth daily. 180 Tablet 1 Diclofenac Sodium 1 % External [...] Tablet (Rozerem) TAKE ONE TABLET AT BEDTIME (Patient not taking: Reported on 06/20/2023) 30 Tablet 5 Calmoseptine 0.44-20.6 % External Ointment (Menthol-Zinc Oxide) Apply topically to affected area asneeded. Apply to vaginal area No current facility-administered medications for this visit. REVIEW OF SYSTEMS: See HPI - otherwise negative OBJECTIVE: Filed Vitals: 07/03/23 1434 BP: 147/62 Pulse: 70 Resp: 16 Temp: 35.8 C (96.4 F) TempSrc: Tympanic SpO2: 89% Weight: 71 kg (156 lb 9.6 oz) Wt Readings from Last 5 Encounters: 07/03/23 71 kg (156 lb 9.6 oz) 06/21/23 70.8 kg (156 lb) 06/20/23 70 kg (154 lb 6.4 oz) 06/07/23 70.1 kg (154 lb 9.6 oz) 03/16/23 66.2 kg (146 lb) PHYSICAL EXAM: ECOG: Performance Status 0 = 100% Normal Activity General Appearance: Normal - Healthy appearing patient in no acute distress Lymph Nodes: Normal - No palpable lymph nodes in the neck, supraclavicular, or axillary areas Lungs/Thorax: Normal - Clear to auscultation Heart: Normal - Regular rate and rhythm, normal S1, S2, no appreciable murmurs Pulses/Extremities: Normal - 2+ throughout and symmetrical, no edema Abdomen: Normal - Soft, nontender, bowel sounds present, no appreciable hepatosplenomegaly, no palpable masses Neurologic: Normal - Grossly intact LABS: Results for orders placed or performed in visit on 06/13/23 BASIC METABOLIC PANEL Result Value Ref Range BUN 13 6 - 20 mg/dL Creatinine 0.8 0.5 - 1.0 mg/dL Estimated Glomerular Filtration Rate 72 >=60 mL/min Sodium 142 135 - 146 mmol/L Potassium 4.4 3.5 - 5.1 mmol/L Chloride 104 98 - 107 mmol/L CO2 27 22 - 32 mmol/L Anion Gap 11 7 - 15 mmol/L Glucose 102 70 - 120 mg/dL Calcium 8.7 8.4 - 10.2 mg/dL ANEMIA CBC Result Value Ref Range WBC 5.23 4.00 - 10.80 K/uL RBC 3.37 3.85 - 5.15 M/uL HGB 9.1 (L) 12.0 - 15.3 g/dL HCT 32.3 (L) 36.0 - 45.2 % MCV 95.8 81.5 - 97.5 fL MCH 27.0 27.0 - 34.0 pg MCHC 28.2 32.0 - 36.0 g/dL RDW 15.2 11.5 - 15.5 % PLT 391 140 - 400 K/uL MPV 9.2 6.6 - 11.1 fL nRBCs 0 <=0 /100 WBCs DIFFERENTIAL, AUTOMATED Result Value Ref Range WBC 5.23 4.00 - 10.80 K/uL Neutrophils % 43.6 40.0 - 75.0 % Lymphocytes % 34.6 18.0 - 42.0 % Monocytes % 9.9 1.0 - 11.0 % Eosinophils % 10.7 (H) 0.0 - 6.0 % Basophils % 1.0 0.0 - 2.0 % Immature Granulocytes % 0.2 0.0 - 2.0 % Absolute Neutrophils 2.28 1.80 - 7.70 K/uL Absolute Lymphocytes 1.81 1.00 - 4.80 K/ul Absolute Monocytes 0.52 0.00 - 1.10 K/uL Absolute Eosinophils 0.56 0.00 - 0.70 K/uL Absolute Basophils 0.05 0.00 - 0.20 K/uL Absolute Immature Granulocytes 0.01 0.00 - 0.20 K/uL FECAL OCCULT BLOOD, EIA Result Value Ref Range iFOBT Positive (A) Negative *Note: Due to a large number of results and/or encounters for the requested time period, some results have not been displayed. A complete set of results can be found in Results Review. 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 Hgb dropped to 8 range. Normocytic indices. Normal renal function. No iron, vitamin b12, or folic acid deficiency present. Normal retic count. Normal TSH. Patient denies b symptoms. Some weight loss noted over the last year, approximately 25 pounds. Has recently stabilized. No LAD or splenomegaly noted on physical exam. Lab work ordered to be completed today includes cbc/diff, cmp, iron screen, ferritin, retic panel, ldh, SPEP, serum FLC, and immunoglobulin quant Order placed for CT C/A/P to be completed at earliest convenience to evaluate for signs of progression of lymphoma. May need to consider for bone marrow biopsy and aspiration. Patient verbalized understanding/ RTC pending results. PITER Lockhart documented in this encounter Plan of Treatment Upcoming Encounters Date Type Specialty Care Team Description 3 Imaging Radiology 3 Cardiac Studies Cardiac Studies 3 Office Visit Gynecology Obstetrics Shane Rowland MD [address] [facility] [place] [address] 3 Scheduled Telephone [facility] Nurse Triage [address] [place] [address] 3 Hospital Encounter Endoscopy Duncan Sangeetha Gutiérrez, [address] [place] [address] 3 Surgery Endoscopy Sangeetha Song DO [address] [place] [address] ESOPHAGOGASTRODUODENOSCOPY (EGD), FLEXIBLE, TRANSORAL, DIAGNOSTIC 3 Office Visit Dermatology Marycruz Almazan PA-C [address] [place] [address] [place] [address] 4 Office Visit Sleep Disorders Sosa Freeman CRNP [address] [place] [address] 4 Office Visit Gastroenterology Lizzette Silva CRNP [address] [place] [address] 4 Office Visit Family Medicine Rhys Humphrey MD [address] [place] [address] [place] [address] 4 Office Visit Cardiology Mi Neil PA-C [address] [place] [address] 4 Nurse Only Ancillary Stanton, Nurse Annual Wellness [address] [place] [address] [place] [address] Scheduled Orders Name Type Priority Associated Diagnoses Orde r Schedule CT CHEST/ABDOMEN/PELVI S WITH IV CONTRAST WITH ORAL CONTRAST Medical Imaging Routine 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) History of iron deficiency anemia Normocytic anemia Ordered: 07/03/2023 Scheduled Procedures Name Priority Associated Diagnoses Date/Ti [...] D LEVEL ONCE IN A LIFETIME-USE SMARTSET# [id number] Completed 06/29/2020, 03/16/2015 Pneumococcal Vaccine: 65+ Years [...] Not on filedocumented as of this encounter Results * (ABNORMAL) IMMUNOGLOBULIN QUANTITATIVE (07/03/2023 3:34 PM EDT) IgG 580(L) 700 - 1,600 mg/dL 07/04/2023 1:10 AM EDT [facility] IgA 158 70 - 400 mg/dL 07/04/2023 1:10 AM EDT [facility] IgM 56 40 - 230 mg/dL 07/04/2023 1:10 AM EDT [facility] Blood Venous blood specimen / Unknown Venipuncture / Unknown 07/03/2023 3:34 PM EDT 07/03/2023 3:34 PM EDT Gris DUMAS LAB BLOOD ORDER FERMIN Performing Organization Address [facility] de Phone Number [facility] [address] [place] [address] * (ABNORMAL) SERUM FREE LIGHT CHAINS (07/03/2023 3:34 PM EDT) Pathologist [facility] [place] Free Light Chains, Serum 18.17 3.30 - 19.40 mg/L 07/04/2023 8:46 AM EDT [facility] Lambda Free Light Chains, Serum 33.62(H) 5.71 - 26.30 mg/L 07/04/2023 8:46 AM EDT [facility] [place] Lambda Free Light Chains Ratio 0.54 0.26 - 1.65 07/04/2023 8:46 AM EDT [facility] Blood Venous blood specimen / Unknown Venipuncture / Unknown 07/03/2023 3:34 PM EDT 07/03/2023 3:34 PM EDT Gris DUMAS LAB BLOOD ORDER FERMIN Performing Organization Address [facility] [[email or web address]] Co de Phone Number [facility] [address], [place] [id number] * (ABNORMAL) SERUM PROTEIN ELECTROPHORESIS REFLEX PROFILE (07/03/2023 3:34 PM EDT) Protein 6.0 6.0 - 8.3 g/dL 07/04/2023 1:41 PM EDT [facility] Albumin 3.49 3.30 - 4.40 g/dL 07/04/2023 1:41 PM EDT [facility] Alpha-1 Globulin 0.24 0.10 - 0.30 g/dL 07/04/2023 1:41 PM EDT [facility] Alpha-2 Globulin 0.87 0.60 - 1.00 g/dL 07/04/2023 1:41 PM EDT [facility] Beta-Globulin 0.84 0.80 - 1.30 g/dL 07/04/2023 1:41 PM EDT [facility] Gamma-Globulin 0.56(L) 0.70 - 1.70 g/dL 07/04/2023 1:41 PM EDT [facility] Electrophoresis Interpretation No paraprotein detected. Decreased gamma fraction. Urine immunofixation recommended in follow up, if clinically indicated. 07/04/2023 1:41 PM EDT [facility] Blood Venous blood specimen / Unknown Venipuncture / Unknown 07/03/2023 3:34 PM EDT 07/03/2023 3:34 PM EDT Gris DUMAS LAB BLOOD ORDER FERMIN Performing Organization Address City/[facility]/ZIP Co de Phone Number [facility] [address] [place] [address] * LD (07/03/2023 3:34 PM EDT) LD 205 <=250 U/L 07/04/2023 1:1 0 AM EDT [facility] Blood Venous blood specimen / Unknown Venipuncture / Unknown 07/03/2023 3:34 PM EDT 07/03/2023 3:34 PM EDT Gris DUMAS LAB BLOOD ORDER FERMIN Performing Organization Address City/[facility]/ZIP Co de Phone Number [facility] [address] [place] [address] * (ABNORMAL) RETICULOCYTE PANEL (07/03/2023 3:34 PM EDT) [facility] Reticulocyte Percent 3.46(H) 0.80 - 1.90 % 07/03/2023 9:50 PM EDT LABORATORY [facility] Absolute Reticulocyte 105.9(H) 31.3 - 100.1 K/uL 07/03/2023 9:50 PM EDT LABORATORY [facility] Immature Reticuloctye Fraction 23.7(H) 2.5 - 20.6 % 07/03/2023 9:50 PM EDT LABORATORY [facility] Reticulocyte Hemoglobin 26.7(L) 29.7 - 37.4 pg 07/03/2023 9:50 PM EDT LABORATORY [facility] Blood Venous blood specimen / Unknown Venipuncture / Unknown 07/03/2023 3:34 PM EDT 07/03/2023 3:34 PM EDT Gris DUMAS LAB BLOOD ORDER FERMIN Performing Organization Address City/[facility]/ZIP Co de Phone Number LABORATORY [address] [address] * FERRITIN (07/03/2023 3:34 PM EDT) [facility] Ferritin 61 13 - 150 ng/mL 07/04/2023 1:35 AM EDT LABORATORY [facility] Comment:Postmenopausal women have higher ferritin levels than pre-menopausal women. The above reference interval is based on pre-menopausal women. Blood Venous blood specimen / Unknown Venipuncture / Unknown 07/03/2023 3:34 PM EDT 07/03/2023 3:34 PM EDT Gris DUMAS LAB BLOOD ORDER FERMIN Performing Organization Address City/[facility]/ZIP Co de Phone Number LABORATORY [address] [address] * IRON SCREEN, INCLUDING TIBC (07/03/2023 3:34 PM EDT) [facility] Iron 130 33 - 151 ug/dL 07/04/2023 1:10 AM EDT [facility] Iron Binding Capacity 343 250 - 425 ug/dL 07/04/2023 1:10 AM EDT [facility] Transferrin Saturation Percent 38 15 - 55 % 07/04/2023 1:10 AM EDT [facility] Blood Venous blood specimen / Unknown Venipuncture / Unknown 07/03/2023 3:34 PM EDT 07/03/2023 3:34 PM EDT Gris DUMAS LAB BLOOD ORDER FERMIN [facility] [address] [place] [address] * COMPREHENSIVE METABOLIC PANEL (07/03/2023 3:34 PM EDT) BUN 18 6 - 20 mg/dL 07/04/2023 1:10 AM EDT [facility] Creatinine 0.9 0.5 - 1.0 mg/dL 07/04/2023 1:10 AM EDT [facility] Estimated Glomerular Filtration Rate 64 >=60 mL/min 07/04/2023 1:10 AM EDT [facility] Comment:eGFR is calculated b ased on the CKD-EPI 2020 equation Sodium 139 135 - 146 mmol/L 07/04/2023 1:10 AM EDT [facility] Potassium 4.2 3.5 - 5.1 mmol/L 07/04/2023 1:10 AM EDT [facility] Chloride 102 98 - 107 mmol/L 07/04/2023 1:10 AM EDT [facility] CO2 26 22 - 32 mmol/L 07/04/2023 1:10 AM EDT [facility] Anion Gap 11 7 - 15 mmol/L 07/04/2023 1:10 AM EDT [facility] Glucose 95 70 - 120 mg/dL 07/04/2023 1:10 AM EDT [facility] Albumin 3.9 3.8 - 5.0 g/dL 07/04/2023 1:10 AM EDT [facility] AST 20 10 - 35 U/L 07/04/2023 1:10 AM EDT [facility] Alkaline Phosphatase 66 35 - 130 U/L 07/04/2023 1:10 AM EDT [facility] Bilirubin, Total 0.3 <=1.2 mg/dL 07/04/2023 1:10 AM EDT [facility] Calcium 8.7 8.4 - 10.2 mg/dL 07/04/2023 1:10 AM EDT [facility] Protein 6.0 6.0 - 8.3 g/dL 07/04/2023 1:10 AM EDT [facility] ALT 15 10 - 35 U/L 07/04/2023 1:10 AM EDT [facility] Blood Venous blood specimen / Unknown Venipuncture / Unknown 07/03/2023 3:34 PM EDT 07/03/2023 3:34 PM EDT Gris DUMAS LAB BLOOD ORDER FERMIN [facility] [address] [facility] [place] [address] documented in this encounter Visit Diagnoses Diagnosis 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)- Primary Nodular lymphoma of intrathoracic lymph nodes History of iron deficiency anemia Personal history of diseases of blood and blood-forming organs Normocytic anemia Anemia, unspecified Other iron deficiency anemia documented in this encounter Advance Directives Documents on File Type Date Recorded 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 Expl anation POLST 10/15/2019 3:17 PM POLST POLST 03/05/2019 POLST FORM Advance Directives and Living Will 01/27/2013 LIVING WILL Advance Directives and Living Will 01/27/2013 LIVING WILL Power of Tile Setter Apprentice 01/27/2013 POWER OF A TTORNEY Power of Tile Setter Apprentice 01/27/2013 POWER OF A TTORNEY Healthcare Agents on File Name Relationship Healthcare Agent Relationship Communication Cydney Benito Other - (no specific identity) Second Alternate Health Care Agent Anyi More Adult Child Health Care Roberth r of Tile Setter Apprentice Care Teams Production Leader Relationship Specialty Start Date End Date Rhys Humphrey MD [address] [place] [address] [place] [address] PCP - General Family Medicine 06/09/21 documented as of this encounter
--- OUTSIDE RECORDS SUMMARY | 2023-08-14 23:25 | External Medical Summary | Summary of Care ---
Author Name Unknown Organization [facility] Address [address] [place] [address] Phone [phone] Care Team Providers Care Furniture Builder Name Role Phone Rhys Humphrey MD Primary Care Provide r Reason for Visit * Reason Comments Re-Check Encounter Details Date Type Department Care Team Description 06/21/2023 Office Visit Cardiology [address] [place] [address] Mi Neil PA-C [address] [place] [address] Chronic diastolic congestive heart failure (HCC)*; HTN, GOAL BELOW 140/90; Dyslipidemia, goal LDL below 70; S/P carotid endarterectomy; Nonrheumatic aortic valve stenosis Allergies Active Allergy Reactions Severity Noted Date Comments Adhesive Tape Other (Please comment),Hives High 09/29/2008 Caused welts Dextromethorphan-Gua ifenesin Neuro complications (Please comment) Medium 12/23/2021 Feels lightheaded/"foggy" documented as of this encounter (statuses as of 07/04/2023) Medications Medication Sig Dispensed Refills Start Date [...] Each 0 11/11/2019 Active Nebulizers (NEBULIZER COMPRESSOR) MISCIndications:NUTRITION COORDINATOR D, 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 Use as directed. 1 Each 1 11/17/2019 Active Iron 325 (65 Fe) MG Oral Tablet Take 1 Tablet by mouth daily. 0 Active Cranberry 500 MG Oral Capsule Take 1 Capsule by mouth in the morning and 1 Capsule before bedtime. 50 Cap 0 01/18/2021 Active Kzhzylq-Tsithveja-Q inc 333-133-5 MG Oral Tablet Take 1 Tablet by mouth daily. 0 Active Anoro Ellipta 62.5-25 MCG/INH Inhalation Aerosol Powder Breath Activated (umeclidinium-vilan terol)Indications:C OPD, moderate (HCC),COPD, group D, by GOLD 2017 classification ([facility]) Inhale by mouth 1 Puff in the [...] :COPD, group D, by GOLD 2017 classification ([facility]) Inhale 3 mL via nebulizer every 6 [...] Additional Information Patient not taking.Reported on 06/20/2023 Famotidine 20 MG Oral Tablet (Pepcid) Take [...] as of this encounter (statuses as of 07/04/2023) Active Problems Problem Noted Date Acute serous [...] as of this encounter (statuses as of 07/04/2023) Resolved Problems Problem Noted Date Resolved Date [...] as of this encounter (statuses as of 07/04/2023) Immunizations Name Administration Dates Next Due COVID-19 mRNA, LNP-s, No Pre serve, 2-Dose Series ([facility]) 07/11/2021,11/14/2020,10/24/2020 Covid-19, Mrna, Lnp-s, Pf, B ivalent, 30 Mcg, IM, 12 yrs and above (Pfizer) 07/21/2022 Pneumococcal Conjugate Vacc, 13 Valent (Prevnar) 03/16/2015 Pneumococcal Conjugate Vacci ne, 20-valent ([id number]) 07/21/2022 Pneumococcal Polysaccharide PPV23 (Pneumovax) 03/05/2019,07/18/2007 SEASONAL [...] Sign Reading Time Taken Comments Blood Pressure 118/62 06/21/2023 2:32 PM EDT Pulse 60 06/21/2023 2:32 PM EDT Temperature 36 C (96.8 F) 06/21/2023 2:32 PM EDT Respiratory Rate 16 06/21/2023 2:32 PM EDT Oxygen Saturation - - Inhaled Oxygen Concentration - - Weight 70.8 kg (156 lb) 06/21/2023 2:32 PM EDT Height 162.6 cm (5' 4") 06/21/2023 2:32 PM EDT Body Mass Index 26.78 06/21/2023 2:32 PM EDT documented in this encounter Progress Notes * Mi Neil PA-C - 06/21/2023 2:36 PM EDT Cardiology F/U: CHIEF COMPLAINT: Follow up hypertension, diastolic dysfunction, mild aortic stenosis; history of carotid artery disease S/P CEA and then repeat revascularization in 07/22. SUBJECTIVE: Keisha Linaers is an 82 year old female who presents today for routine cardiologyfollow-up. Last clinic evaluation approximately [address] Bynum. Patient presents today feeling well. Recently saw Dr. Chaidez with [facility] and carotids were "good" per patient. Taking all meds as prescribed. No chest pain, shortness of breath, palpitations, dizziness, syncope or near syncope. No orthopnea,PND, or increased lower extremity edema. No fever, chills, cough, hematochezia, melena, or hemoptysis. Review of Systems: See HPI for pertinent positives. All others negative, other than those noted in HPI. 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 Dyslipidemia, goal LDL below 70 E78.5 Nonrheumatic aortic valve stenosis I35.0 Centrilobular emphysema (HCC) J43.2 ISELA (obstructive sleep apnea) G47.33 Lichen sclerosus et atrophicus L90.0 Osteopenia of neck of femur M85.859 Iron deficiency E61.1 Persistent insomnia G47.00 Hx of nonmelanoma skin cancer Z85.828 Chronic diastolic congestive heart failure (HCC) I50.32 Other specified peripheral vascular diseases (HCC) I73.89 History of TIA (transient ischemic attack) Z86.73 History of left hip replacement Z96.642 Nocturnal hypoxemia G47.34 Hypertensive heart disease with chronic diastolic congestive heart failure (HCC) I11.0, I50.32 Ground glass opacity present on imaging of lung R91.8 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) F32.5 COPD, group D, by GOLD 2017 classification ([facility]) J44.9 Gastroesophageal reflux disease without esophagitis K21.9 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 ([facility]) 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.22 Chronic insomnia F51.04 Dysfunction of both eustachian tubes H69.83 At risk for falls Z91.81 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 ([facility]) C82.02 Age-related osteoporosis without current pathological fracture M81.0 Left carotid stenosis I65.22 S/P carotid endarterectomy Z98.890 Iron deficiency anemia D50.9 RLS (restless legs syndrome) G25.81 Peripheral polyneuropathy G62.9 Nontoxic multinodular goiter E04.2 Acute serous otitis media H65.00 Social History Tobacco Use Smoking status: Former Packs/day: 0.50 Years: 46.00 Pack years: 23.00 Types: Cigarettes Quit date: 10/01/2001 Years since quittin.7 Smokeless tobacco: Never Vaping Use Vaping Use: Never used Substance Use Topics Alcohol use: No Drug use: No Review of patient's allergies indicates: Allergen Reactions Adhesive Tape Other (Please comment) and Hives Caused welts Ginger Tussin Dm [Dextromethorphan-Guaifenesin] Neuro complications (Please comment) Feels lightheaded/"foggy" Current Outpatient Medications Medication Sig Dispense Refill FISH OIL 1000 MG PO CAPS twice daily Multiple Vitamins-Minerals (CENTRUM SILVER 50+WOMEN) TABS Take [...] 325 (65 Fe) MG Oral Tablet Take by mouth. Cranberry 500 MG Oral Capsule Take 1 Capsule by mouth in the morning and 1 Capsule before bedtime. 50 Cap Ceyrrdl-Lsidlptzr-Opih 333-133-5 MG Oral Tablet Take by mouth. Famotidine 20 MG Oral Tablet (Pepcid) Take 1 Tab by mouth 2 times a day as needed for Heartburn. (Patient taking differently: Take 1 Tablet by mouth 2 times a day as needed for Heartburn.) 180 Tab 3 Anoro Ellipta 62.5-25 MCG/INH Inhalation Aerosol Powder [...] Capsule (Colace) Take 2 Capsules by mouth in the morning. Albuterol Sulfate HFA 108 (90 Base) MCG/ACT [...] of Breath or Wheezing. 360 mL 3 guaiFENesin ER 600 MG Oral Tablet Extended Release 12 Hour Take 1 Tablet by mouth in the morning and 1 Tablet before bedtime. Atorvastatin Calcium 40 MG Oral Tablet (Lipitor) [...] at bedtime on Sunday and Sunday only. (Patient not taking: Reported on 06/20/2023) 42.5 g 1 Benzonatate 100 MG Oral [...] taking: Reported on 06/20/2023) 30 Tablet 5 No current facility-administered medications for this visit. OBJECTIVE/PHYSICAL EXAMINATION: BP 118/62 | Pulse 60 | Temp 36 C (96.8 F) | Resp 16 | Ht 1.626 m (5' 4") | Wt 70.8 kg (156 lb) | BMI 26.78 kg/m | BSA 1.79 m Wt Readings from Last 3 Encounters: 07/03/23 71 kg (156 lb 9.6 oz) 06/21/23 70.8 kg (156 lb) 06/20/23 70 kg (154 lb 6.4 oz) BP Readings from Last 4 Encounters: 06/21/23 118/62 06/20/23 199/80 06/13/23 128/52 06/12/23 104/50 General: no acute distress and stated age Eyes: conjunctiva are pink and non-injected, sclera clear Neck: normal jugular venous pulse, no hepatojugular reflux Chest: normal shape and normal respiratory effort Lungs: clear to auscultation , no rales rhonchi or wheezing Cardiac Exam: - regular heart sounds, I/ systolic murmur Musculoskeletal: no gait disturbance, no weakness Extremities: no edema and no cyanosis Neuro: grossly normal exam Psych: appropriate affect and insight. Data: Echocardiogram report reviewed dated November 2021: Interpretation Summary The examination is adequate to evaluate the referral indication. The qualitative LV ejection fraction is 60-64% (normal). The left atrium is mildly enlarged (35-41 ml/m^2). The left ventricular diastolic function is moderately abnormal (grade II). The aortic valve is mildly calcified. Mild aortic valve stenosis is present. Moderate aortic valve regurgitation is present There is moderate mitral annular calcification. Compared to previous echo 12/28/20, no significant changes. Latest Reference Range & Units 06/07/23 08:58 Triglycerides <=174 mg/dL 54 Cholesterol <200 mg/dL 138 Non-HDL Cholesterol <=159 mg/dL 74 HDL Cholesterol >49 mg/dL 64 LDL Cholesterol <=129 mg/dL 63 ASSESSMENT / PLAN: 81 year old female Chronic diastolic congestive heart failure (HCC) (Primary) - stable symptoms -appears euvolemic Non rheumatic aortic valve stenosis -repeat echo previously requested and not done -reschedule HTN, goal below 140/90 - controlled Dyslipidemia, goal LDL below 70 -controlled. Continue Statin and Zetia Carotid vascular disease -f/u with Dr. Chaidez as scheduled. Continue ASA and plavix The patient is to continue all current medications as listed above. No changes were made at today'svisit. I spent a total of 30 minutes on the date of service in preparation, delivery, and documentation ofthe care provided to Keisha Linares excluding any time spent in the performance of separatelybilled services. The patient agrees to the above plan and will call with additional questions or concerns. ER with all emergencies advised. Follow-up: Return in about 6 months (around 12/20/2023). | Check-out note: Schedule echo in [place] - ordered by Dr. Bynum 6 months follow up Mi Neil PA-C Department of Cardiology This chart was completed in part utilizing [email or web address] Speech Voice Recognition Software. Grammatical errors, random word insertions, prounoun errors, and incomplete sentences are an occasional consequence of this system due to software limitations, ambient noise, and hardware issues. Any formal questions or concerns about the content, text, or information contained within the body of this dictation should be directly addressed to the provider for clarification. documented in this encounter Nursing Notes * Edwige Mulligan RN - 06/21/2023 2:32 PM EDT Cardiology Check Up. Doing well documented in this encounter Plan of Treatment Upcoming Encounters Date Type Specialty Care Team Description 3 Scheduled Telephone [facility] Nurse Triage [address] [place] [address] 3 Imaging Radiology 3 Cardiac Studies Cardiac Studies 3 Office Visit Gynecology Obstetrics Shane Rowland MD [address] [place] [address] 3 Hospital Encounter Endoscopy Sangeetha Song DO [address] [place] [address] 3 Surgery Endoscopy Sangeetha Song DO [address] [place] [address] ESOPHAGOGASTRODUODENOSCOPY (EGD), FLEXIBLE, TRANSORAL, DIAGNOSTIC 3 Office Visit Dermatology Marycruz Almazan PA-C [address] [place] [address] [place] [address] 4 Office Visit Sleep Disorders Sosa Freeman CRNP [address] [place] [address] 4 Office Visit Gastroenterology Lizzette Silva CRNP [address] [place] [address] 4 Office Visit Family Medicine Rhys Humphrey MD [address] [place] [address] [place] [address] 4 Office Visit Cardiology Mi Neil PA-C [address] [place] [address] 4 Nurse Only Ancillary Nurse [facility] [address] [place] [address] [place] [address] Scheduled Procedures Name Priority Associated Diagnoses Date/Ti [...] D LEVEL ONCE IN A LIFETIME-USE SMARTSET# [id number] Completed 06/29/2020, 03/16/2015 Pneumococcal Vaccine: 65+ Years [...] as of this encounter Visit Diagnoses Diagnosis Chronic diastolic congestive heart failure (HCC)- Primary Chronic diastolic heart failure HTN, GOAL BELOW 140/90 Unspecified essential hypertension Dyslipidemia, goal LDL below 70 Other and unspecified hyperlipidemia S/P carotid endarterectomy Other postprocedural status Nonrheumatic aortic valve stenosis Aortic valve disorders Other iron deficiency anemia documented in this encounter Advance Directives Documents on File Type Date Recorded Patient Parts Sales Advisor Expl anation POLST 10/15/2019 3:17 PM POLST POLST 03/05/2019 POLST FORM Advance Directives and Living Will 01/27/2013 LIVING WILL Advance Directives and Living Will 01/27/2013 LIVING WILL Power of Preassembler And Inspector 01/27/2013 POWER OF A TTORNEY Power of Preassembler And Inspector 01/27/2013 POWER OF A TTORNEY Healthcare Agents on File Name Relationship Healthcare Agent Relationship Communication Cydney Benito Other - (no specific identity) Second Alternate Health Care Agent Anyi More Adult Child Health Care Roberth r of Preassembler And Inspector Care Teams Furniture Builder Relationship Specialty Start Date End Date Rhys Humphrey MD [address] [place] [address] [place] [phone] PCP - General Family Medicine 06/09/21 documented as of this encounter
--- OUTSIDE RECORDS SUMMARY | 2023-08-14 23:25 | External Medical Summary | Summary of Care ---
Author Name Unknown Organization [facility] Address [address] [place] [address] Phone [phone] Care Team Providers Care Paper Sorter And Counter Name Role Phone Rhys Humphrey MD Primary Care Provide r Reason for Visit * Reason Comments Medication Discussion Encounter Details Date Type Department Care Team Description 07/03/2023 Pharmacy Pharmacy Call Center [address] [place] [address] Wb, Telepharmacy [facility] [address] [place] [address] Encounter for medication review* Allergies Active Allergy [...] Tab by mouth daily. 0 Active oxygen GASIndications:IESLA on CPAP 2.5 LPM bled through cpap. 1 Each 0 08/22/2019 Active Additional Information Patient not taking.Reported on 06/20/2023 DIURETIC TITRATION PLAN If no improvement on day 3, contact heart failure managing provider. 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 Use as directed. 1 Each 1 11/17/2019 Active Iron 325 (65 Fe) MG Oral Tablet Take 1 Tablet by mouth daily. 0 Active Cranberry 500 MG Oral Capsule Take 1 Capsule by mouth in the morning and 1 Capsule before bedtime. 50 Cap 0 01/18/2021 Active Efzzmzm-Twcwtttyc-C inc 333-133-5 MG Oral Tablet Take 1 [...] Base) MCG/ACT Inhalation Aerosol SolutionIndications :COPD, moderate ([facility]) [...] lung diseas e 06/01/2011 03/12/2019 Overview: PFT: 05/2011, 2008 Carotid stenosis, symptomatic w/o infarct 201006/01/2011 [...] mRNA, LNP-s, No Pre serve, 2-Dose Series (A-Gas) 07/11/2021,11/14/2020,10/24/2020 Covid-19, Mrna, Lnp-s, Pf, B ivalent, 30 Mcg, IM, 12 yrs and above (A-Gas) 07/21/2022 Pneumococcal Conjugate Vacc, 13 Valent (Prevnar) 03/16/2015 Pneumococcal Conjugate Vacci ne, 20-valent ([id number]) 07/21/2022 Pneumococcal Polysaccharide PPV23 (Pneumovax) 03/05/2019,07/18/2007 SEASONAL [...] this encounter Progress Notes * Kasey Vieyra, [facility] - 07/03/2023 9:27 AM EDT Images from the original note were not included. PHARMACY MTM PROGRESS NOTE [facility] [address] [facility] [place] [address] Service Delivery Delivery Method: Phone Outcome: [facility] Completed Health Profile Current Conditions: Allergies, Arthritis, [...] Breath or Wheezing. Associated Diagnoses: COPD, moderate ([facility]) Anoro Ellipta 62.5-25 MCG/INH Inhalation Aerosol Powder Breath Activated (umeclidinium-vilanterol) Rhys Humphrey MD Inhale by mouth 1 Puff in the morning. Associated Diagnoses: COPD, moderate ([facility]), COPD, group D, by GOLD 2017 classification [...] as needed for Cough. Associated Diagnoses: -- Pbmougs-Ctdwijfso-Icgr 333-133-5 MG Oral Tablet History Per Patient [...] (Colace) History Per Patient Associated Diagnoses: -- FISH OIL 1000 MG [...] classification ([facility]) Iron 325 (65 Fe) MG Oral Tablet [...] Patient Associated Diagnoses: -- Nebulizers (NEBULIZER COMPRESSOR) [facility] Jg Kerr DO Inhale via nebulizer. Use as directed. Associated Diagnoses: COPD, moderate (HCC) oxygen GAS PITER [place] 2.5 LPM bled through cpap. Patient not [...] takeaway): Your Ipratropium-albuterol is your nebulizer rescue therapy . This medication can be taken every 6 hours, and helps you breathe easier.It starts working immediately. Your nebulizer should be taken as: one vial puffs by mouth every 6 hours as needed for breathing. Reach out to your doctor if you are needing this medication more oftenthan prescribed. Takeaway Service Information Date CMR was completed: 07/03/2023 Who was the recipient of the CMR service: Patient Was the patient in a intermediate care (LTC) facility when the CMR was completed? No Pharmacist's availability for questions: Sunday-Sunday 8:00am-4:30pm Takeaway Information Will the Patient Takeaway be sent to the Patient or someone else? Patient Language Template for the Patient Takeaway: Welsh Additional notes for the Patient Takeaway (optional): N/A I attest that I have reviewed and updated the patient's conditions, allergies, and medications to the best of my ability. Patient Access: Is patient utilizing [facility]? No; compliance packaging at pharmacy Is patient utilizing [facility]? Yes Additional Call Notes Medication list collected by lead pharmacy technicianPatrica. Patient appears adherent to regimen. [...] reschedule scan. ~35 minute CMR Kasey Vieyra RPh Clinical Pharmacist [facility]) 07/03/2023, 10:16 AM documented in this encounter Plan of Treatment Upcoming Encounters Date Type Specialty Care Team Description 3 Imaging Radiology 3 Cardiac Studies Cardiac Studies 3 Office Visit Gynecology Obstetrics Shane Rowland MD [address] [place] [address] 3 Scheduled [facility]phone [facility] Nurse Triage [address] [place] [address] [phone] (Fax) 3 Hospital Encounter Endoscopy Sangeetha Song DO [address] [place] [address] 3 Surgery Endoscopy Sangeetha Song DO [address] [place] [address] ESOPHAGOGASTRODUODENOSCOPY (EGD), FLEXIBLE, TRANSORAL, DIAGNOSTIC 3 Office Visit Dermatology Marycruz Almazan PA-C [address] [place] [address] [place] [address] 4 Office Visit Sleep Disorders Sosa Freeman CRNP [address] [place] [address] 4 Office Visit Gastroenterology Lizzette Silva CRNP [address] [place] [address] 4 Office Visit Family Medicine Rhys Humphrey MD [address] [place] [address] [place] [address] 4 Office Visit Cardiology Mi Neil PA-C [address] [place] [address] 4 Nurse Only Ancillary [place], Nurse [facility] [address] [place] [address] [place] [address] Scheduled Procedures Name Priority Associated Diagnoses Date/Ti [...] D LEVEL ONCE IN A LIFETIME-USE SMARTSET# [id number] Completed 06/29/2020, 03/16/2015 Pneumococcal Vaccine: 65+ Years [...] Documents on File Type Date Recorded Patient Dice Table Person Expl anation POLST 10/15/2019 3:17 PM POLST POLST 03/05/2019 POLST FORM Advance Directives and Living Will 01/27/2013 LIVING WILL Advance Directives and Living Will 01/27/2013 LIVING WILL Power of Filling Operator 01/27/2013 POWER OF A TTORNEY Power of Filling Operator 01/27/2013 POWER OF A TTORNEY Healthcare Agents on File Name Relationship Healthcare Agent Relationship Communication Cydney Benito Other - (no specific identity) Second Alternate Health Care Agent Anyi More Adult Child Health Care Roberth r of Filling Operator Care Teams Paper Sorter And Counter Relationship Specialty Start Date End Date Rhys Humphrey MD [address] [place] [address] [place] [address] PCP - General Family Medicine 06/09/21 documented as of this encounter
--- OUTSIDE RECORDS SUMMARY | 2023-08-14 23:26 | External Medical Summary ---
Author Name Unknown Address Unknown Organization K01[place] [place] [address] [place] [address] Laboratory Report Ordering Provider Test Date Status EDU NICHOLSON 07/03/2023 15:34:23 Final Observation Date Value Abnormality Reference (Units ) Status MYCODE SPECIMEN-SST 07/03/2023 15:34:23 Freezing of extracted DNA, whole blood and/or serum. Final Performing Location [facility] [place] [address] [place] [address]
--- OUTSIDE RECORDS SUMMARY | 2023-08-14 23:26 | External Medical Summary | Summary of Care ---
Author Name Unknown Organization [facility] Address [address] [place] [address] Phone [phone] Care Team Providers Care Fermenting Cellars Supervisor Name Role Phone Rhys Humphrey MD Primary Care Provide r Reason for Visit * Reason Onset Date Comments [facility]: Maintenance 07/02/2023 Encounter Details Date Type Department Care Team Description 07/02/2023 Telephone [facility], [facility] [address] [place] [address] [facility], Nurse [facility] [address] [facility] [place] [address] [facility]: Maintenance Allergies Active Allergy Reactions Severity Noted Date Comments Adhesive Tape Other (Please comment),Hives High 09/29/2008 Caused welts Dextromethorphan-Gua ifenesin Neuro complications (Please comment) Medium 12/23/2021 Feels lightheaded/"foggy" documented as of this encounter (statuses as of 07/02/2023) Medications Medication Sig Dispensed Refills Start Date End Date Status FISH OIL 1000 MG PO CAPS twice daily 0 Active Multiple Vitamins-Minerals (CENTRUM SILVER 50+WOMEN) [...] Fe) MG Oral Tablet Take by mouth. 0 Active Cranberry 500 MG Oral Capsule Take 1 Capsule by mouth in the morning and 1 Capsule before bedtime. 50 Cap 0 01/18/2021 Active Tknojwu-Ptpcjwbyx-Uw nc 333-133-5 MG Oral Tablet Take by mouth. 0 Active Famotidine 20 MG Oral Tablet (Pepcid) Take 1 Tab by mouth 2 times a day as needed for Heartburn. 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 0 Active Albuterol Sulfate HFA 108 (90 [...] COPD, group D, by GOLD 2017 classification ([facility]) Inhale 3 mL via nebulizer every 6 hours as needed for Shortness of Breath or Wheezing. 360 mL 3 03/22/2023 Active guaiFENesin ER 600 MG Oral Tablet Extended Release 12 Hour Take 1 Tablet by mouth in the morning and 1 Tablet before bedtime. 0 Active Atorvastatin Calcium 40 MG Oral Tablet [...] Sunday only. 42.5 g 1 06/08/2023 Active Additional Information Patient not taking.Reported on 06/20/2023 Benzonatate 100 MG Oral Capsule Take 1 [...] Additional Information Patient not taking.Reported on 06/20/2023 documented as of this encounter (statuses as of 07/02/2023) Active Problems Problem Noted Date Acute serous [...] as of this encounter (statuses as of 07/02/2023) Resolved Problems Problem Noted Date Resolved Date [...] as of this encounter (statuses as of 07/02/2023) Immunizations Name Administration Dates Next Due COVID-19 mRNA, LNP-s, No Pre serve, 2-Dose Series (Luxoft) 07/11/2021,11/14/2020,10/24/2020 Covid-19, Mrna, Lnp-s, Pf, B ivalent, 30 Mcg, IM, 12 yrs and above (Luxoft) 07/21/2022 Pneumococcal Conjugate Vacc, 13 Valent (Prevnar) 03/16/2015 Pneumococcal Conjugate Vacci ne, 20-valent ([id number]) 07/21/2022 Pneumococcal Polysaccharide PPV23 (Pneumovax) 03/05/2019,07/18/2007 SEASONAL [...] Telephone Encounter - Chaya Ozuna LPN - 07/02/2023 12:45 PM EDT Images from the original note were not included. [facility] Remote Patient Monitoring Unable to contact patient: Trigger type: Abnormal reading(s): Device(s) Triggered: AMC (Advanced Monitored Caregiving): Pulse Rate: Pulse: 94 Trigger priority per AMC: high Blood Pressure Cuff: Blood pressure per cuff: 144/53 Trigger priority per AMC: high Plan: Call to pt no answer left requesting a return call to [facility] at [phone] opt#3 documented in this encounter Plan of Treatment Upcoming Encounters Date Type Specialty Care Team Description 3 Office Visit Hematology Oncology Gris Diaz CRNP [address] [place] [address] 3 Scheduled Telephone [facility] Nurse Triage [address] [place] [address] 3 Cardiac Studies Cardiac Studies 3 Office Visit Gynecology Obstetrics Shane [place]land MD [address] [place] [address] 3 Hospital Encounter Endoscopy Sangeetha Song DO [address] [place] [address] 3 Surgery Endoscopy Sangeetha Song DO [address] [place] [phone] ESOPHAGOGASTRODUODENOSCOPY (EGD), FLEXIBLE, TRANSORAL, DIAGNOSTIC 3 Office Visit Dermatology Marycruz Almazan PA-C [address] [place] [address] [place] [address] 4 Office Visit Sleep Disorders Sosa Freeman CRNP [address] [place] [address] 4 Office Visit Gastroenterology Lizzette Silva CRNP [address] [place] [address] 4 Office Visit Family Medicine Rhys Humphrey MD [address] [facility] [place] [address] 4 Office Visit Cardiology Mi Neil PA-C [address] [place] [address] 4 Nurse Only Ancillary Stanton, Nurse Annual Wellness [address] [place] [address] [place] [address] Scheduled Procedures Name Priority Associated Diagnoses Date/Ti me ESOPHAGOGASTRODUODENOSCOPY ( EGD), FLEXIBLE, TRANSORAL, DIAGNOSTIC Other iron deficiency anemia 08/10/2023 11:15 AM EST Health Maintenance Due Date Last Done Comments Alpha-1 Antitrypsin 1958 DXA Scan 06/11/2020 06/11/2018, 03/02, 02/16/2012, Additional history exists *BISPHONATE OR OTHER ACCEPTABLE MEDICATION NEEDED FOR OSTEOPOROSIS (REFER TO SMARTSET #1146) 01/23/2021 Depression Screening 03/16/2024 03/16/2023 GFR 06/13/2024 06/13/2023, 03/2023, 09/26/2022, Additional history exists O2 ASSESSMENT COMPLETED IN PAST YEAR FOR COPD 06/20/2024 06/20/2023 Albumin/Creatinine Ratio 04/28/2025 04/28/2022 DTaP,Tdap,and Td Vaccines (3 - Td or Tdap) 09/17/2029 09/17/2019, 08/10/2011, 10/01/2001 Zoster Vaccines Completed 04/25/2020, 08/31, 07/22/2012 VITAMIN D LEVEL ONCE IN A LIFETIME-USE SMARTSET# 93559 Completed 06/29/2020, 03/16/2015 COVID-19 Vaccine Completed 07/21/2022, 10/2020, 07/11/2021, Additional history exists Pneumococcal Vaccine: 65+ Years Completed 07/21/2022, 03/05/2019, [...] Documents on File Type Date Recorded Patient Resident Care Manager Rn Expl anation POLST 10/15/2019 3:17 PM POLST POLST 03/05/2019 POLST FORM Advance Directives and Living Will 01/27/2013 LIVING WILL Advance Directives and Living Will 01/27/2013 LIVING WILL Power of Whiting Machine Operator 01/27/2013 POWER OF A TTORNEY Power of Whiting Machine Operator 01/27/2013 POWER OF A TTORNEY Healthcare Agents on File Name Relationship Healthcare Agent Relationship Communication Cydney Benito Other - (no specific identity) Second Alternate Health Care Agent Anyi More Adult Child Health Care Roberth r of Whiting Machine Operator Care Teams Fermenting Cellars Supervisor Relationship Specialty Start Date End Date Rhys Humphrey MD [address] [place] [address] [place] [address] PCP - General Family Medicine 06/09/21 documented as of this encounter
--- OUTSIDE RECORDS SUMMARY | 2023-08-14 23:26 | External Medical Summary ---
Author Name Unknown Address Unknown Organization [id number]:LABORATORY [facility] – [place] - [address] [facility] [address] Laboratory Report Ordering Provider Test Date Status PAMELLA DAVILA 07/03/2023 15:34:23 Final Observation Date Value Abnormality Reference (Units ) Status Ferritin 07/03/2023 15:34:23 61 13-150 (ng /mL) Final Postmenopausal women have hi gher ferritin levels than pre-menopausal women. The above reference interval is based on pre-menopausal women. Performing Location LABORATORY [facility] [place] - [address] [facility] [address]
--- OUTSIDE RECORDS SUMMARY | 2023-08-14 23:26 | External Medical Summary ---
Author Name Unknown Address Unknown Organization [id number][place] [facility] [place] [facility] [address] [facility] [address] Laboratory Report Ordering Provider Test Date Status CARLOS LEVIN 07/03/2023 15:34:23 Beatriz l Observation Date Value Abnormality Reference (Units ) Status WBC, Total 07/03/2023 15:34:23 5.74 4.00-10.80 (K/uL) Final RBC 07/03/2023 15:34:23 3.06 3.85-5.15 (M/uL) Final Hemoglobin 07/03/2023 15:34:23 8.6 Below low normal 12.0-15.3 (g/dL) Final HCT 07/03/2023 15:34:23 29.4 Below low normal 36.0-45.2 (%) Final MCV 07/03/2023 15:34:23 96.1 81.5-97.5 (fL) Final MCH 07/03/2023 15:34:23 28.1 27.0-34.0 (pg) Final MCHC 07/03/2023 15:34:23 29.3 32.0-36.0 (g/dL) Final RDW 07/03/2023 15:34:23 14.6 11.5-15.5 (%) Final Platelets 07/03/2023 15:34:23 367 140-400 (K/uL) Final MPV 07/03/2023 15:34:23 9.3 6.6-11.1 (fL) Final Nucleated erythrocytes/100 leukocytes [Ratio] in Blood by Automated count 07/03/2023 15:34:23 0 <=0 (/100 WBCs) Final Performing Location [facility] [facility] [place] [address] [facility] [address]
--- OUTSIDE RECORDS SUMMARY | 2023-08-14 23:26 | External Medical Summary ---
Author Name Unknown Address Unknown Organization [id number]:[place] [facility] [place] [facility] [address] [facility] [address] Laboratory Report Ordering Provider Test Date Status PAMELLA DAVILA 07/03/2023 15:34:23 Final Observation Date Value Abnormality Reference (Units ) Status [place] light chains, Free, Serum 07/03/2023 15:34:23 18.17 3.30-19.40 (mg/L) Final Lambda light chains, free, Serum 07/03/2023 15:34:23 33.62 Above high normal 5.71-26.30 (mg/L) Final KAPPA LAMBDA FLC RATIO 07/03/2023 15:34:23 0.54 0.26-1.65 Final Performing Location LAB[facility] [facility] [place] [facility] [place] [address]
--- OUTSIDE RECORDS SUMMARY | 2023-08-14 23:26 | External Medical Summary ---
Author Name Unknown Address Unknown Organization [id number]:LABORATORY [facility] [place] - [address] [place] [address] Laboratory Report Ordering Provider Test Date Status PAMELLA DAVILA 07/03/2023 15:34:23 Final Observation Date Value Abnormality Reference (Units ) Status Iron 07/03/2023 15:34:23 130 33-151 (ug /dL) Final Iron-binding capacity 07/03/2023 15:34:23 343 250-425 (ug/dL) Final Transferrin Sat % 07/03/2023 15:34:23 38 15 -55 (%) Final Performing Location LABORATORY C - [address] [place] [address]
--- OUTSIDE RECORDS SUMMARY | 2023-08-14 23:26 | External Medical Summary ---
Author Name Unknown Address Unknown Organization [id number]:[place] [facility] [place] [address] [place] [address] Laboratory Report Ordering Provider Test Date Status LOLAPAMELLA 07/03/2023 15:34:23 Final Observation Date Value Abnormality Reference (Units) Status Immunofixation for Serum or Plasma 07/03/2023 15:34:23 No monoclonal gammopathy detected. Final Performing Location [facility] [facility] [place] [address] [place] [address]
--- OUTSIDE RECORDS SUMMARY | 2023-08-14 23:26 | External Medical Summary | Summary of Care ---
Author Name Unknown Organization [facility] Address [address] [place] [address] Phone [phone] Care Team Providers Care Emt Driver Name Role Phone Rhys Humphrey MD Primary Care Provide r Reason for Visit * Reason Comments Medication Discussion Encounter Details Date Type Department Care Team Description 07/03/2023 Pharmacy Pharmacy Call Center [phone] [facility] [place] [address] [place], Telepharmacy [facility] [address] [place] [address] Encounter for medication review* Allergies Active Allergy [...] Each 0 11/11/2019 Active Nebulizers (NEBULIZER COMPRESSOR) MISCIndications: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 Use as directed. 1 Each 1 11/17/2019 Active Iron 325 (65 Fe) MG Oral Tablet Take 1 Tablet by mouth daily. 0 Active Cranberry 500 MG Oral Capsule Take 1 Capsule by mouth in the morning and 1 Capsule before bedtime. 50 Cap 0 01/18/2021 Active Brfkvwe-Uwrkqxtne-L inc 333-133-5 MG Oral Tablet Take 1 Tablet by mouth daily. 0 Active Anoro Ellipta 62.5-25 MCG/INH Inhalation Aerosol Powder Breath Activated (umeclidinium-vilan terol)Indications:C OPD, moderate (HCC),COPD, group D, by GOLD 2017 classification ([facility]) Inhale by mouth 1 Puff in the [...] Base) MCG/ACT Inhalation Aerosol SolutionIndications :COPD, moderate ([facility]) Inhale 2 Puffs by mouth every 4 [...] 2017 classification ([facility]) Inhale 3 mL via nebulizer every 6 [...] reflux disease) 5 10/06/2019 Mesenteric lymphadenopathy 09/19/201312/07 RICAHRD (dyspnea on exertion) 01/07/20132018 Obstructive sleep apnea [...] mRNA, LNP-s, No Pre serve, 2-Dose Series (MobileSpan) 07/11/2021,11/14/2020,10/24/2020 Covid-19, Mrna, Lnp-s, Pf, B ivalent, 30 Mcg, IM, 12 yrs and above (MobileSpan) 07/21/2022 Pneumococcal Conjugate Vacc, 13 Valent (Prevnar) 03/16/2015 Pneumococcal Conjugate Vacci ne, 20-valent ([id number]) 07/21/2022 Pneumococcal Polysaccharide PPV23 (Pneumovax) 03/05/2019,07/18/2007 SEASONAL [...] Progress Notes * Kasey Vieyra, [facility] - 07/03/2023 9:27 AM EDT Images from the original note were not included. PHARMACY MTM PROGRESS NOTE [facility] ([facility]) [address] [facility] [place] [address] Service Delivery Delivery Method: Phone Outcome: CMR Completed Health Profile Current Conditions: Allergies, Arthritis, Blood Clot Prevention, COPD, Fluid Rentention, Heartburn,High Blood Pressure, High Cholesterol, Nerve Pain, and Pain Drug allergies & side effects: Review of patient's allergies indicates: Allergen Reactions Adhesive Tape Other (Please comment) and Hives Caused welts Ginger Pranavin Dm [Dextromethorphan-Guaifenesin] Neuro complications (Please comment) Feels lightheaded/"foggy" Med List Home Medications Provider Albuterol Sulfate HFA 108 (90 Base) MCG/ACT Inhalation Aerosol Solution Rhys Humphrey MD Inhale 2 Puffs by mouth every 4 hours as needed for Cough, Shortness of Breath or Wheezing. Associated Diagnoses: COPD, moderate (HCC) Anoro Ellipta 62.5-25 MCG/INH Inhalation Aerosol Powder [...] as needed for Cough. Associated Diagnoses: -- Fqwpxfh-Ejcfavemy-Fyzx 333-133-5 MG Oral Tablet History Per Patient Associated Diagnoses: -- Clopidogrel [...] 2017 classification ([facility]) Iron 325 (65 Fe) MG Oral Tablet [...] Patient Associated Diagnoses: -- Nebulizers (NEBULIZER COMPRESSOR) JOVANI Kerr, Inhale via nebulizer. Use as directed. Associated Diagnoses: COPD, moderate ([facility]) oxygen GAS Breana Vandana Rhed, GENDER STUDIES PROFESSOR 2.5 LPM bled through cpap. Patient not [...] gets compliance packaging. Start date is 06/19/2023. Atorvastatin Calcium 40 MG Oral Tablet (Lipitor) Rhys Humphrey MD TAKE ONE TABLET BY MOUTH EVERY DAY Associated Diagnoses: Dyslipidemia, goal LDL below 100 Benzonatate 100 MG Oral Capsule (Tessalon Perles) Amber Landers PA-C Take by mouth 1 Capsule as needed in the morning AND 1 Capsule as needed at noon AND 1 Capsule as needed in the evening for Cough. Associated Diagnoses: -- Clobetasol Propionate 0.05 % External Ointment (Temovate) Marycruz Almazan PA-C Apply 2x daily to isolated area on left labia that is bothersome until resolved, continue to use Vaseline regularly over entire vagina Associated Diagnoses: Lichen sclerosus et atrophicus Clopidogrel Bisulfate 75 MG Oral Tablet (pLAVix) Rhys Humphrey MD TAKE ONE TABLET BY MOUTH EVERY DAY Associated Diagnoses: TIA (transient ischemic attack) Diclofenac Sodium 1 % External Gel (Voltaren) Rhys Humphrey MD Apply topically to affected area 2 g in the morning. Apply to L shoulder. Patient taking differently: Apply 2 g topically to affected area in the morning. Apply to L shoulder. Associated Diagnoses: Chronic left shoulder pain Notes: Pt requesting refill Diclofenac Sodium 1 % External Gel (Voltaren) Rhys Humphrey MD Apply 2 g topically to affected area daily as needed for Pain. Apply to L shoulder Associated Diagnoses: Chronic left shoulder pain Famotidine 20 MG Oral Tablet (Pepcid) Naida Alfred MD Take 1 Tab by mouth 2 times a day as needed for Heartburn. Associated Diagnoses: -- Furosemide 40 MG Oral Tablet (Lasix) Mi Neil PA-C Take by mouth 1 Tablet in the morning. May take an additional tablet as needed for weight gain or shortness of breath.. Associated Diagnoses: Chronic diastolic congestive heart failure (HCC) Notes: second request Gabapentin 300 MG Oral Capsule (Neurontin) Rhys Humphrey MD TAKE ONE CAPSULE BY MOUTH IN THE MORNING and AT NOON and TAKE two CAPSULES AT BEDTIME Associated Diagnoses: Peripheral polyneuropathy Gabapentin 300 MG Oral Capsule (Neurontin) Rhys Humphrey MD Associated Diagnoses: Peripheral polyneuropathy, Pain in both lower extremities guaiFENesin ER 600 MG Oral Tablet Extended Release 12 Hour History Per Patient Associated Diagnoses: -- Ipratropium-Albuterol 0.5-2.5 (3) MG/3ML Inhalation Solution (Duoneb) Rhys Humphrey MD Inhale 3 mL via nebulizer every 6 hours as needed for Shortness of Breath or Wheezing. Associated Diagnoses: COPD, group D, by GOLD 2017 classification ([facility]) Losartan Potassium 50 MG Oral Tablet (Cozaar) Rhys Humphrey MD TAKE TWO TABLETS BY MOUTH EVERY DAY Associated Diagnoses: HTN, goal below 140/90 Meclizine HCl 12.5 MG Oral Tablet (Antivert) Cinthia Murphy PA-C Take 1 Tablet by mouth 3 times a day as needed for Dizziness. Associated Diagnoses: -- Melatonin 3 MG Oral Capsule History Per Patient Associated Diagnoses: -- Notes: Pt is to take ramelteon 8mg only Premarin 0.625 MG/GM Vaginal Cream (Estrogens Conjugated) Rhys Humphrey MD Administer 0.5 g into the vagina at bedtime on Sunday and Sunday only. Associated Diagnoses: Vaginal irritation Ramelteon 8 MG Oral Tablet (Rozerem) Rhys Humphrey MD TAKE ONE TABLET BY MOUTH AT BEDTIME Associated Diagnoses: Insomnia, unspecified type Notes: Patient gets compliance packaging. Start date 02/27/2023. Ongoing Comment Asia Gambino RN 04/28/2014 2:30 [...] service: Patient Was the patient in a halfway care (LTC) facility when the CMR was completed? No Pharmacist's availability for questions: Sunday-Sunday 8:00am-4:30pm Takeaway Information Will the Patient Takeaway be sent to the Patient or someone else? Patient Language Template for the Patient Takeaway: [place]se Additional notes for the Patient Takeaway (optional): N/A I attest that I have reviewed and updated the patient's conditions, allergies, and medications to the best of my ability. Patient Access: Is patient utilizing [facility]? No; compliance packaging at pharmacy Is patient utilizing [employer]? Yes Additional Call Notes Medication list collected by refractory technicianPatrica. Patient appears adherent to regimen. Medications [...] reschedule scan. ~35 minute CMR Kasey Vieyra [facility] Clinical Pharmacist [facility] ([facility]) 07/03/2023, 10:16 AM documented in this encounter Plan of Treatment Upcoming Encounters Date Type Specialty Care Team Description 3 Scheduled Telephone [facility] [place] Nurse Triage [address] [place] [address] 3 Cardiac Studies Cardiac Studies 3 Office Visit Gynecology Obstetrics Shane Rowland MD [address] [place] [address] 3 Hospital Encounter Endoscopy Sangeetha Song DO [address] [place] [address] 3 Surgery Endoscopy Sangeetha Song DO [address] [place] [address] ESOPHAGOGASTRODUODENOSCOPY (EGD), FLEXIBLE, TRANSORAL, DIAGNOSTIC 3 Office Visit Dermatology Marycruz Almazan PA-C [address] [place] [address] [place] [address] 4 Office Visit Sleep Disorders Sosa Freeman CRNP [address] [place] [address] 4 Office Visit Gastroenterology Lizzette Silva CRNP [address] [place] [address] 4 Office Visit Family Medicine Rhys Humphrey MD [address] [place] [address] [place] [address] 4 Office Visit Cardiology Mi Neil PA-C [address] [place] [address] 4 Nurse Only Ancillary Stanton Nurse Annual Wellness [address] [place] [address] [place] [address] Scheduled Procedures Name Priority Associated Diagnoses Date/Ti [...] D LEVEL ONCE IN A LIFETIME-USE SMARTSET# [id number] Completed 06/29/2020, 03/16/2015 Pneumococcal Vaccine: 65+ Years [...] Documents on File Type Date Recorded Patient Cheese Maker Expl anation POLST 10/15/2019 3:17 PM POLST POLST 03/05/2019 POLST FORM Advance Directives and Living Will 01/27/2013 LIVING WILL Advance Directives and Living Will 01/27/2013 LIVING WILL Power of Wet Press Tender 01/27/2013 POWER OF A TTORNEY Power of Wet Press Tender 01/27/2013 POWER OF A TTORNEY Healthcare Agents on File Name Relationship Healthcare Agent Relationship Communication Cydney Benito Other - (no specific identity) Second Alternate Health Care Agent Anyi More Adult Child Health Care Roberth r of Wet Press Tender Care Teams Emt Driver Relationship Specialty Start Date End Date Rhys Humphrey MD [address] [place] [address] [place] [id number] PCP - General Family Medicine 06/09/21 documented as of this encounter
--- OUTSIDE RECORDS SUMMARY | 2023-08-14 23:26 | External Medical Summary ---
Author Name Unknown Address Unknown Organization [id number]:[place] [facility] [place] [address] [facility] [address] Laboratory Report Ordering Provider Test Date Status CARLOS LEVIN 07/03/2023 15:34:23 Beatriz l Observation Date Value Abnormality Reference (Units ) Status SYNC LEUKOCYTES IN BLOOD BY AUTOMATED COUNT 07/03/2023 15:34:23 5.74 4.00-10.80 (K/uL) Final Segs 07/03/2023 15:34:23 58.2 40.0-75.0 (%) Final Lymphs % 07/03/2023 15:34:23 21.8 18.0-42.0 (%) Final Monos 07/03/2023 15:34:23 9.8 1.0-11.0 (%) Final Eosinophils 07/03/2023 15:34:23 8.0 Above high normal 0.0-6.0 (%) Final Basos 07/03/2023 15:34:23 1.0 0.0-2.0 (%) Final Immature Granulocyte, Percent 07/03/2023 15:34:23 1.2 0.0-2.0 (%) Final Absolute Segs 07/03/2023 15:34:23 3.34 1.80-7.70 (K/uL) Final Lymphs, absolute 07/03/2023 15:34:23 1.25 1.00-4.80 (K/ul) Final Monos, Abs 07/03/2023 15:34:23 0.56 0.00-1.10 (K/uL) Final Eos, Abs 07/03/2023 15:34:23 0.46 0.00-0.70 (K/uL) Final Basos, Abs 07/03/2023 15:34:23 0.06 0.00-0.20 (K/uL) Final Immature Granulocytes, Number 07/03/2023 15:34:23 0.07 0.00-0.20 (K/uL) Final Performing Location [place] [facility] [place] [facility] [place] [address]
--- OUTSIDE RECORDS SUMMARY | 2023-08-14 23:26 | External Medical Summary ---
Author Name Unknown Address Unknown Organization K01:LABORATORY [facility] - [address] [place] [address] Laboratory Report Ordering Provider Test Date Status PAMELLA DAVILA 07/03/2023 15:34:23 Final Observation Date Value Abnormality Reference (Units ) Status LDH 07/03/2023 15:34:23 205 <=250 (U/L ) Final Performing Location [facility]ORY [facility] - [address] [facility] [address]
--- OUTSIDE RECORDS SUMMARY | 2023-08-14 23:26 | External Medical Summary ---
Author Name Unknown Address Unknown Organization [id number]:LABORATORY [facility] [place] [address] [place] [address] Laboratory Report Ordering Provider Test Date Status EDU NICHOLSON 07/03/2023 15:34:23 Final Observation Date Value Abnormality Reference (Units ) Status MYCODE SPECIMEN-SST 07/03/2023 15:34:23 Freezing of extracted DNA, whole blood and/or serum. Final Performing Location LABORATORY [facility] [place] - [address] [place] [address]
--- OUTSIDE RECORDS SUMMARY | 2023-08-14 23:26 | External Medical Summary ---
Author Name Unknown Address Unknown Organization K01:[facility] - [address] [place] [address] Laboratory Report Ordering Provider Test Date Status PAMELLA DAVILA 07/03/2023 15:34:23 Final Observation Date Value Abnormality Reference (Units ) Status IgG 07/03/2023 15:34:23 580 Below low normal 700 -1600 (mg/dL) Final IgA 07/03/2023 15:34:23 158 70-400 (mg /dL) Final IgM 07/03/2023 15:34:23 56 40-230 (mg /dL) Final Performing Location [facility] - [address] [place] [address]
--- OUTSIDE RECORDS SUMMARY | 2023-08-14 23:26 | External Medical Summary ---
Author Name Unknown Address Unknown Organization K01:[facility] [place] [facility] [place] [address] Laboratory Report Ordering Provider Test Date Status PAMELLA DAVILA 07/03/2023 15:34:23 Final Observation Date Value Abnormality Reference (Units ) Status Retic, % (auto) 07/03/2023 15:34:23 3.46 Above high normal 0.80-1.90 (%) Final Reticulocytes, Absolute 07/03/2023 15:34:23 105.9 Above high normal 31.3-100.1 (K/uL) Final Reticulocyte fraction, immature 07/03/2023 15:34:23 23.7 Above high normal 2.5-20.6 (%) Final Reticulocyte HGB 07/03/2023 15:34:23 26.7 Below low normal 29.7-37.4 (pg) Final Performing Location [facility] [place] [address] [place] [address]
--- OUTSIDE RECORDS SUMMARY | 2023-08-14 23:27 | External Medical Summary | Summary of Care ---
Author Name Unknown Organization [facility] Address [address] [place] [address] Phone [phone] Care Team Providers Care Back Grinder Name Role Phone Rhys Humphrey MD Primary Care Provide r Reason for Visit * Reason Onset Date Comments Scheduling 06/20/2023 Hematology appt Encounter Details Date Type Department Care Team Description 06/20/2023 Telephone Gastroenterology, [facility] [address] [place] [address] Lizzette Silva CRNP [address] [place] [address] Scheduling (Hematology appt) Allergies Active Allergy Reactions Severity Noted Date Comments Adhesive Tape Other (Please comment),Hives High 09/29/2008 Caused welts Dextromethorphan-Gua ifenesin Neuro complications (Please comment) Medium 12/23/2021 Feels lightheaded/"foggy" documented as of this encounter (statuses as of 06/20/2023) Medications Medication Sig Dispensed Refills Start Date [...] before bedtime. 50 Cap 0 01/18/2021 Active Axcvqkc-Swoondqrt-Yd nc 333-133-5 MG Oral Tablet Take by mouth. 0 Active Famotidine 20 MG Oral Tablet (Pepcid) Take 1 Tab by mouth 2 times a day as needed for Heartburn. 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 D, moderate (HCC),COPD, group D, by GOLD [...] COPD, group D, by GOLD 2017 classification ([facility]) Inhale 3 mL via nebulizer [...] as of this encounter (statuses as of 06/20/2023) Active Problems Problem Noted Date Acute serous [...] as of this encounter (statuses as of 06/20/2023) Resolved Problems Problem Noted Date Resolved Date [...] as of this encounter (statuses as of 06/20/2023) Immunizations Name Administration Dates Next Due COVID-19 mRNA, LNP-s, No Pre serve, 2-Dose Series (Studio) 07/11/2021,11/14/2020,10/24/2020 Covid-19, Mrna, Lnp-s, Pf, B ivalent, 30 Mcg, IM, 12 yrs and above (Studio) 07/21/2022 Pneumococcal Conjugate Vacc, 13 Valent (Prevnar) 03/16/2015 Pneumococcal Conjugate Vacci ne, 20-valent ([id number]) 07/21/2022 Pneumococcal Polysaccharide PPV23 (Pneumovax) 03/05/2019,07/18/2007 Season Influenza, Quad, PF, Adjuvanted, 65+ Yrs, IM (FLUAD) 06/16/2020 Seasonal Influenza, PF, 6 mo ns & Above, IM , (Flulaval) 06/28/2018,07/28/2017 Seasonal Influenza, Quadriva lent Hd (Fluzone Hd) [...] Miscellaneous Notes * Telephone Encounter - ISELA Maxwell - 06/20/2023 9:33 AM EDT Patient needs to be scheduled for the following appt per the checkout notes after appt on 06/20 mauricio Crocker: Hem/Onc Referral Other iron deficiency anemia [D50.8] - Primary Please reach out to patient to schedule Thank you documented in this encounter Plan of Treatment Upcoming Encounters Date Type Specialty Care Team Description 3 Office Visit Cardiology Mi Neil PA-C [address] [place] [address] 3 Office Visit Sleep Disorders Mayda Wagner, [address] [place] [address] 3 Scheduled Telephone [facility] Nurse Triage [address] [place] [address] 3 Office Visit Gynecology Obstetrics Shane Rowland MD [address] [place] [address] 3 Hospital Encounter Endoscopy Sangeetha Song DO [address] [place] [address] 3 Surgery Endoscopy Sangeetha Song DO [address] [place], [place] [address] ESOPHAGOGASTRODUODENOSCOPY (EGD), FLEXIBLE, TRANSORAL, DIAGNOSTIC 3 Office Visit Dermatology Marycruz Almazan PA-C [address] [place] [address] [place] [address] 4 Office Visit Sleep Disorders Sosa Freeman CRNP [address] [place] [address] 4 Office Visit Gastroenterology Lizzette Silva CRNP [address] [place] [address] 4 Office Visit Family Medicine Rhys Humphrey MD [address] [place] [address] [place] [address] 4 Nurse Only Ancillary Stanton Nurse Annual Wellness [address] [place] [address] [place] [address] Scheduled Procedures Name Priority Associated Diagnoses Date/Ti [...] ASSESSMENT COMPLETED IN PAST YEAR FOR COPD 06/13/2024 06/20/2023 Albumin/Creatinine Ratio 04/28/2025 04/28/2022 DTaP,Tdap,and Td Vaccines (3 - Td or Tdap) 09/17/2029 09/17/2019, 08/10/2011, 10/01/2001 Zoster Vaccines Completed 04/25/2020, 08/31, 07/22/2012 VITAMIN D LEVEL ONCE IN A LIFETIME-USE SMARTSET# [id number] Completed 06/29/2020, 03/16/2015 COVID-19 Vaccine Completed 07/21/2022, [...] Documents on File Type Date Recorded Patient Tooling Manager Expl anation POLST 10/15/2019 3:17 PM POLST POLST 03/05/2019 POLST FORM Advance Directives and Living Will 01/27/2013 LIVING WILL Advance Directives and Living Will 01/27/2013 LIVING WILL Power of Facilities Officer 01/27/2013 POWER OF A TTORNEY Power of Facilities Officer 01/27/2013 POWER OF A TTORNEY Healthcare Agents on File Name Relationship Healthcare Agent Relationship Communication Cydney Benito Other - (no specific identity) Second Alternate Health Care Agent Anyi More Adult Child Health Care Roberth r of Facilities Officer Care Teams Back Grinder Relationship Specialty Start Date End Date Rhys Humphrey MD [address] [place] [address] [place] [phone] PCP - General Family Medicine 06/09/21 documented as of this encounter
--- OUTSIDE RECORDS SUMMARY | 2023-08-14 23:27 | External Medical Summary | Summary of Care ---
Author Name Unknown Organization [facility] Address [address] [place] [address] Phone [phone] Care Team Providers Care Columnist/Commentator Name Role Phone Rhys Humphrey MD Primary Care Provide r Encounter Details Date Type Department Care Team Description 06/13/2023 Home Visit [facility], [facility] [address] [place] [address] Sarah Vitale, RAYNA [address] [place] [address] Allergies Active Allergy Reactions Severity Noted Date Comments Adhesive Tape Other (Please comment),Hives High 09/29/2008 Caused welts Dextromethorphan-Gua ifenesin Neuro complications (Please comment) Medium 12/23/2021 Feels lightheaded/"foggy" documented as of this encounter (statuses as of 06/13/2023) Medications Medication Sig Dispensed Refills Start Date [...] before bedtime. 50 Cap 0 01/18/2021 Active Rmplkau-Kdrewurqv-Bk nc 333-133-5 MG Oral Tablet Take by mouth. 0 Active Famotidine 20 MG Oral Tablet (Pepcid) Take 1 Tab by mouth 2 times a day as needed for Heartburn. 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),COPD, group D, by GOLD 2017 classification ([facility]) Inhale by mouth 1 Puff [...] MG Oral Tablet Extended Release 12 Hour (Mucinex) Take 1 Tablet by mouth in the [...] AT BEDTIME 30 Tablet 5 06/11/2023 Active documented as of this encounter (statuses as of 06/13/2023) Active Problems Problem Noted Date Acute serous [...] as of this encounter (statuses as of 06/13/2023) Resolved Problems Problem Noted Date Resolved Date [...] as of this encounter (statuses as of 06/13/2023) Immunizations Name Administration Dates Next Due COVID-19 mRNA, LNP-s, No Pre serve, 2-Dose Series (evOLED) 07/11/2021,11/14/2020,10/24/2020 Covid-19, Mrna, Lnp-s, Pf, B ivalent, 30 Mcg, IM, 12 yrs and above (Pfizer) 07/21/2022 Pneumococcal Conjugate Vacc, 13 Valent (Prevnar) 03/16/2015 Pneumococcal Conjugate Vacci ne, 20-valent ([id number]) 07/21/2022 Pneumococcal Polysaccharide PPV23 (Pneumovax) 03/05/2019,07/18/2007 Season [...] Sign Reading Time Taken Comments Blood Pressure 128/52 06/13/2023 10:44 AM EDT Pulse 80 06/13/2023 10:44 AM EDT Temperature 36.1 C (97 F) 06/13/2023 10:44 AM EDT Respiratory Rate 18 06/13/2023 10:44 AM EDT Oxygen Saturation 92% 06/13/2023 10:44 AM EDT Inhaled Oxygen Concentration - - Weight - - Height - - Body Mass Index - - documented in this encounter Progress Notes * Sarah Vitale RN - 06/13/2023 10:37 AM EDT [facility] Harness And Bag InspectorKelp Gatherer Visit Date: 06/13/2023 Time: 10:38 AM Name: Keisha Linares : 1940 Current Concerns: Patient seen for acute visit- concern for dizziness/ hypotension. [facility] BP cuff readings low yesterday. Did not take BP today. Went to clinic for blood work this am. Medication packs from [facility]- reviewed medication in packs to ensure accuracy. No issues. Upon arrival, patient sitting in the common area eating a donut and having coffee with neighbors. Ambulated to door without device- had walker at doorway. Gait steady. Reports feeling ok today. Denies at present. States she has intermittent dizziness. She denies having dizziness with lying down, sitting or standing- it just happens. When asked if she is drinking enough- states, " All my yes, I am always eating ice chips!" Skin turgor good. Sitting- 128/52 Standing- 132/50 VS wnl Lungs clear bilaterally Sob with exertion No LE edema noted Voiding without difficulty Bowels wnl Appetite good Taking fluids [place] with her friend for a week. Discussed with patient if hypotension continues she could start to wear compression socks. At this time, she does not feel like she needs them at this time. Problems/Symptoms: Review of Systems Constitutional: Negative. HENT: Negative. Eyes: Negative. Respiratory: Positive for shortness of breath. Cardiovascular: Negative. Gastrointestinal: Negative. Endocrine: Negative. Genitourinary: Negative. Musculoskeletal: Negative. Skin: Negative. Allergic/Immunologic: Negative. Neurological: Positive for dizziness (intermittent). Hematological: Negative. Psychiatric/Behavioral: Negative. Physical Exam: BP 128/52 (BP Site: Left Arm, BP Position: Sitting, BP Cuff Size: Regular) | Pulse 80 | Temp 36.1 C (97 F) (Tympanic) | Resp 18 | SpO2 92% Pain 0 Physical Exam Constitutional: Appearance: Normal appearance. Cardiovascular: Rate and Rhythm: Normal rate and regular rhythm. Pulses: Normal pulses. Heart sounds: Normal heart sounds. Pulmonary: Effort: Pulmonary effort is normal. Breath sounds: Normal breath sounds. Abdominal: General: Bowel sounds are normal. Palpations: Abdomen is soft. Musculoskeletal: General: Normal range of motion. Skin: General: Skin is warm and dry. Capillary Refill: Capillary refill takes 2 to 3 seconds. Neurological: General: No focal deficit present. Mental Status: She is alert and oriented to person, place, and time. Psychiatric: Mood and Affect: Mood normal. Behavior: Behavior normal. [facility]-10 Completed this Visit: No. Routine visit Treatment/Plan: Await lab results Fluids encouraged [facility] scale/BP daily Fall precautions- walker Continue medications as prescribed Keep all upcoming MD appointments RN CM follow up in one day via phone Home Interventions Provided: Reinforced current Plan of Care, including self-management and medication regimen Patient Needs to Remember: [facility] with [facility] concerns/ red flags Referrals Needed: N/a Follow Up: Is there cellular connectivity/connectivity in the home? Yes Does the patient have internet in the home? No Patient encouraged to call the intake phone number for all urgent but not emergent issues. Scheduled to follow up with patient in 1 day. Sarah Bhandari RN 06/13/2023 10:38 AM documented in this encounter Plan of Treatment Upcoming Encounters Date Type Specialty Care Team Description 06/14/2023 Scheduled Telephone [facility] Wastewater Technician, [facility] [address] [place] [address] 06/21/2023 Office Visit Cardiology Mi Neil PA-C [address] [place] [address] 07/04/2023 Scheduled Telephone [facility] Nurse Triage [address] [place] [address] 07/16/2023 Office Visit Gynecology Obstetrics Shane Rowland MD [address] [place] [address] 09/17/2023 Office Visit Dermatology Marycruz Almazan PA-C [address] [place] [address] [place] [address] 10/03/2023 Office Visit Sleep Disorders Sosa Freeman CRNP [address] [place] [address] 12/10/2023 Office Visit Family Medicine Rhys Humphrey MD [address] [place] [address] [place] [address] 03/18/2024 Nurse Only Ancillary Moval[place], Nurse Annual Wellness [address] [place] [address] [place] [address] Health Maintenance Due Date Last Done Comments Alpha-1 Antitrypsin 1958 DXA Scan 06/11/2020 06/11/2018, 03/02, 02/16/2012, Additional history exists *BISPHONATE OR OTHER ACCEPTABLE MEDICATION NEEDED FOR OSTEOPOROSIS (REFER TO SMARTSET #1146) 01/23/2021 Depression Screening 03/16/2024 03/16/2023 GFR 06/07/2024 06/13/2023, 03/2023, 09/26/2022, Additional history exists O2 ASSESSMENT COMPLETED IN PAST YEAR FOR COPD 06/07/2024 06/13/2023 Albumin/Creatinine Ratio 04/28/2025 04/28/2022 DTaP,Tdap,and Td Vaccines (3 - Td or Tdap) 09/17/2029 09/17/2019, 08/10/2011, 10/01/2001 Zoster Vaccines Completed 04/25/2020, 08/31, 07/22/2012 VITAMIN D LEVEL ONCE IN A LIFETIME-USE SMARTSET# [id number] Completed 06/29/2020, 03/16/2015 COVID-19 Vaccine Completed 07/21/2022, [...] Documents on File Type Date Recorded Patient Detective Captain Expl anation POLST 10/15/2019 3:17 PM POLST POLST 03/05/2019 POLST FORM Advance Directives and Living Will 01/27/2013 LIVING WILL Advance Directives and Living Will 01/27/2013 LIVING WILL Power of Chief Growth Officer 01/27/2013 POWER OF A TTORNEY Power of Chief Growth Officer 01/27/2013 POWER OF A TTORNEY Healthcare Agents on File Name Relationship Healthcare Agent Relationship Communication Cydney Benito Other - (no specific identity) Second Alternate Health Care Agent Anyi More Adult Child Health Care Roberth r of Chief Growth Officer Care Teams Columnist/Commentator Relationship Specialty Start Date End Date Rhys Humphrey MD [address] [place] [address] [place] [phone] PCP - General Family Medicine 06/09/21 documented as of this encounter
--- OUTSIDE RECORDS SUMMARY | 2023-08-14 23:27 | External Medical Summary | Summary of Care ---
Author Name Unknown Organization [facility] Address [address] [place] [address] Phone [phone] Care Team Providers Care Manager Field Service Name Role Phone Rhys Humphrey MD Primary Care Provide r Reason for Visit * Reason Comments Outpatient Testing Encounter Details Date Type Department Care Team Description 06/13/2023 Laboratory Laboratory [address] [place] [phone] [place] [id number] Anemia, unspecified type; Iron deficiency anemia, unspecified iron deficiency anemia type; Hypertensive heart disease with chronic diastolic congestive heart failure (HCC) Allergies Active Allergy Reactions Severity Noted Date [...] before bedtime. 50 Cap 0 01/18/2021 Active Avhxtfy-Uvvdgbell-Eu nc 333-133-5 MG Oral Tablet Take by mouth. 0 Active Famotidine 20 MG Oral Tablet (Pepcid) Take 1 Tab by mouth 2 times a day as needed for Heartburn. 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),COPD, group D, by GOLD 2017 classification ([facility] [...] mRNA, LNP-s, No Pre serve, 2-Dose Series ([facility]) 07/11/2021,11/14/2020,10/24/2020 Covid-19, Mrna, Lnp-s, Pf, B ivalent, 30 Mcg, IM, 12 yrs and above (Pfizer) 07/21/2022 Pneumococcal Conjugate Vacc, 13 Valent (Prevnar) 03/16/2015 Pneumococcal Conjugate Vacci ne, 20-valent ([id number]) 07/21/2022 Pneumococcal Polysaccharide PPV23 (Pneumovax) 03/05/2019,07/18/2007 Season [...] Encounters Date Type Specialty Care Team Description 06/13/2023 Scheduled Telephone [facility] Breakfast Server, Josephine Zhou [address] [place] [address] 06/13/2023 [facility] Sarah Vitale RN [address] [place] [address] 06/14/2023 Scheduled Telephone [facility] Breakfast Server, Josephine Zhou [address] [place] [address] 06/21/2023 Office Visit Cardiology Mi Neil PA-C [address] [place] [address] 07/04/2023 Scheduled Telephone [facility] Nurse Triage [address] [place] [address] 07/16/2023 Office Visit Gynecology Obstetrics Shane Rowland MD [address] [place] [address] 09/17/2023 Office Visit Dermatology Marycruz Almazan PA-C [address] [place] [address] [place] [address] 10/03/2023 Office Visit Sleep Disorders Sosa Freeman CRNP [address] [place] [address] 12/10/2023 Office Visit Family Medicine Rhys Humphrey MD [address] [place] [address] [place] [address] 03/18/2024 Nurse Only Ancillary Stanton, Nurse Annual Wellness [address] [place] [address] [place] [address] Pending Results Name Type Priority Associated Diagnoses Date /Time CBC WITH WBC DIFFERENTIAL AND ANEMIA REFLEX WORKUP Lab Routine Anemia, unspecified type 06/13/2023 7:59 AM EDT BASIC METABOLIC PANEL Lab Routine Iron deficiency anemia, unspecified iron deficiency anemia type Hypertensive heart disease with chronic diastolic congestive heart failure (HCC) 06/13/2023 7:59 AM EDT ANEMIA CBC Lab Routine Anemia, unspecified type 06/13/2023 7:59 AM EDT DIFFERENTIAL, AUTOMATED Lab Routine Anemia, unspecified type 06/13/2023 7:59 AM EDT ANEMIA REFLEX CHEMISTRY HOLD Lab Routine Anemia, unspecified type 06/13/2023 7:59 AM EDT FECAL OCCULT BLOOD, EIA Lab Routine Anemia, unspecified type 06/13/2023 10:37 AM EDT Health Maintenance Due Date Last Done Comments Alpha-1 Antitrypsin 1958 DXA Scan 06/11/2020 06/11/2018, 03/02, 02/16/2012, Additional history exists *BISPHONATE OR OTHER ACCEPTABLE MEDICATION NEEDED FOR OSTEOPOROSIS (REFER TO SMARTSET #1146) 01/23/2021 Depression Screening 03/16/2024 03/16/2023 GFR 06/07/2024 06/07/2023, 09/01, 04/28/2022, Additional history exists O2 ASSESSMENT COMPLETED IN PAST YEAR FOR COPD 06/07/2024 06/07/2023 Albumin/Creatinine Ratio 04/28/2025 04/28/2022 DTaP,Tdap,and Td Vaccines (3 - Td or Tdap) 09/17/2029 09/17/2019, 08/10/2011, 10/01/2001 Zoster Vaccines Completed 04/25/2020, 08/31, 07/22/2012 VITAMIN D LEVEL ONCE IN A LIFETIME-USE SMARTSET# [id number] Completed 06/29/2020, 03/16/2015 COVID-19 Vaccine Completed 07/21/2022, [...] encounter Visit Diagnoses Diagnosis Anemia, unspecified type Iron deficiency anemia, unspecified iron deficiency anemia type Hypertensive heart disease with chronic diastolic congestive heart failure (HCC) documented in this encounter Advance Directives Documents on File Type Date Recorded Patient Interactive Media Marketing Specialist Expl anation POLST 10/15/2019 3:17 PM POLST POLST 03/05/2019 POLST FORM Advance Directives and Living Will 01/27/2013 LIVING WILL Advance Directives and Living Will 01/27/2013 LIVING WILL Power of Ribbon Cleaner 01/27/2013 POWER OF A TTORNEY Power of Ribbon Cleaner 01/27/2013 POWER OF A TTORNEY Healthcare Agents on File Name Relationship Healthcare Agent Relationship Communication Cydney Benito Other - (no specific identity) Second Alternate Health Care Agent Anyi More Adult Child Health Care Roberth r of Ribbon Cleaner Care Teams Manager Field Service Relationship Specialty Start Date End Date Rhys Humphrey MD [address] [place] [address] [place] [address] PCP - General Family Medicine 06/09/21 documented as of this encounter
--- OUTSIDE RECORDS SUMMARY | 2023-08-14 23:27 | External Medical Summary | Summary of Care ---
Author Name Unknown Organization [facility] Address [address] [place] [address] Phone [phone] Care Team Providers Care Furniture Reproducer Name Role Phone Rhys Humphrey MD Primary Care Provide r Reason for Referral * Evaluate & Treat - Unlimited Visits (Within 10 days (routine)) - Authorized Specialty Diagnoses / Procedures Referred By Alexsandra downs Referred To Contact Occupational Medicine / Occupational Therapy Diagnoses Left shoulder pain, unspecified chronicity Laureen Patel PA-C [address] [place] [address] Referral ID Status Reason Start Date Expiration Date Visits Requested Visits Authorized [id number] Authorized Specialty Services Required 06/19/[phone] Question Answer Referral Priority Within 10 days (routine) Comments EVALUATE AND TREAT LEFT SHOULDER PAIN Encounter Details Date Type Department Care Team Description 06/19/2023 Orders Only [facility] [address] [place] [address] Laureen Patel PA-C [address] [place] [address] Left shoulder pain, unspecified chronicity* Allergies Active Allergy Reactions Severity Noted Date Comments Adhesive Tape Other (Please comment),Hives High 09/29/2008 Caused welts Dextromethorphan-Gua ifenesin Neuro complications (Please comment) Medium 12/23/2021 Feels lightheaded/"foggy" documented as of this encounter (statuses as of 06/19/2023) Medications Medication Sig Dispensed Refills Start Date [...] before bedtime. 50 Cap 0 01/18/2021 Active Spktjbf-Mjxyqpgta-Mq nc 333-133-5 MG Oral Tablet Take by mouth. 0 Active Famotidine 20 MG Oral Tablet (Pepcid) Take 1 Tab by mouth 2 times a day as needed for Heartburn. 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),COPD, group D, by GOLD [...] Base) MCG/ACT Inhalation Aerosol SolutionIndications: COPD, moderate ([facility]) Inhale 2 Puffs by mouth [...] COPD, group D, by GOLD 2017 classification ([place] [...] as of this encounter (statuses as of 06/19/2023) Active Problems Problem Noted Date Acute serous [...] as of this encounter (statuses as of 06/19/2023) Resolved Problems Problem Noted Date Resolved Date [...] as of this encounter (statuses as of 06/19/2023) Immunizations Name Administration Dates Next Due COVID-19 mRNA, LNP-s, No Pre serve, 2-Dose Series (Shangby) 07/11/2021,11/14/2020,10/24/2020 Covid-19, Mrna, Lnp-s, Pf, B ivalent, 30 Mcg, IM, 12 yrs and above (Shangby) 07/21/2022 Pneumococcal Conjugate Vacc, 13 Valent (Prevnar) 03/16/2015 Pneumococcal Conjugate Vacci ne, 20-valent ([id number]) 07/21/2022 Pneumococcal Polysaccharide PPV23 (Pneumovax) 03/05/2019,07/18/2007 Season [...] Encounters Date Type Specialty Care Team Description 06/20/2023 Office Visit Gastroenterology Lizzette Silva CRNP [address] [place] [address] 06/21/2023 Office Visit Cardiology Mi Neil PA-C [address] [place] [address] 06/25/2023 Office Visit Sleep Disorders Mayda Wagner DO [address] [place] [address] 07/04/2023 Scheduled Telephone [facility] Nurse Triage [address] [place] [address] 07/16/2023 Office Visit Gynecology Obstetrics Shane Rowland MD [address] [place] [address] 09/17/2023 Office Visit Dermatology Marycruz Almazan PA-C [address] [place] [address] [place] [address] 10/03/2023 Office Visit Sleep Disorders Sosa Freeman CRNP [address] [place] [address] 12/10/2023 Office Visit Family Medicine Rhys Humphrey MD [address] [place] [address] [place] [address] 03/18/2024 Nurse Only Ancillary [place], Nurse Annual Wellness [address] [place] [address] [place] [address] Scheduled Referrals Name Type Priority Associated Diagnoses Orde r Schedule OCCUPATIONAL THERAPY REFERRAL OP Referral Within 10 days (routine) Left shoulder pain, unspecified chronicity Ordered: 06/19/2023 Health Maintenance Due Date Last Done Comments Alpha-1 Antitrypsin 1956 DXA Scan 06/11/2020 06/11/2018, 03/02, 02/16/2012, Additional history exists *BISPHONATE OR OTHER ACCEPTABLE MEDICATION NEEDED FOR OSTEOPOROSIS (REFER TO SMARTSET #1146) 01/23/2021 Depression Screening 03/16/2024 03/16/2023 GFR 06/13/2024 06/13/2023, 09/0 03/2023, 09/26/2022, Additional history exists O2 ASSESSMENT COMPLETED IN PAST YEAR FOR COPD 06/13/2024 06/13/2023 Albumin/Creatinine Ratio 04/28/2025 04/28/2022 DTaP,Tdap,and Td Vaccines (3 - Td or Tdap) 09/17/2029 09/17/2019, 08/10/2011, 10/01/2001 Zoster Vaccines Completed 04/25/2020, 08/31, 07/22/2012 VITAMIN D LEVEL ONCE IN A LIFETIME-USE SMARTSET# [id number] Completed 06/29/2020, 03/16/2015 COVID-19 Vaccine Completed 07/21/2022, [...] as of this encounter Visit Diagnoses Diagnosis Left shoulder pain, unspecified chronicity- Primary documented in this encounter Advance Directives Documents on File Type Date Recorded Patient Scalemaker Expl anation POLST 10/15/2019 3:17 PM POLST POLST 03/05/2019 POLST FORM Advance Directives and Living Will 01/27/2013 LIVING WILL Advance Directives and Living Will 01/27/2013 LIVING WILL Power of Meat Counter Worker 01/27/2013 POWER OF A TTORNEY Power of Meat Counter Worker 01/27/2013 POWER OF A TTORNEY Healthcare Agents on File Name Relationship Healthcare Agent Relationship Communication Cydney Benito Other - (no specific identity) Second Alternate Health Care Agent Anyi More Adult Child Health Care Roberth r of Meat Counter Worker Care Teams Furniture Reproducer Relationship Specialty Start Date End Date Rhys Humphrey MD [address] [place] [address] [place] [address] PCP - General Family Medicine 06/09/21 documented as of this encounter
--- OUTSIDE RECORDS SUMMARY | 2023-08-14 23:27 | External Medical Summary | Summary of Care ---
Author Name Unknown Organization [facility] Address [address] [place] [address] Phone [phone] Care Team Providers Care Belt Turner Name Role Phone Rhys Humphrey MD Primary Care Provide r Reason for Referral * Evaluate & Treat - Unlimited Visits (Within 30 days (routine)) - Authorized Specialty Diagnoses / Procedures Referred By Contac t Referred To Contact Hematology/Oncology / Hematology Oncology Diagnoses Other iron deficiency anemia Lizzette Silva CRNP [address] [place] [address] Referral ID Status Reason Start Date Expiration Date Visits Requested Visits Authorized [id number] Authorized Specialty Services Required 06/20/[phone] Question Answer Referral Priority Within 30 days (routine) Reason for Referral Anemia Reason for Visit * Reason Comments Re-Check * Evaluate & Treat - Unlimited Visits (Within 10 days (routine)) - Authorized Specialty Diagnoses / Procedures Referred By Contac t Referred To Contact Gastroenterology Diagnoses Occult blood positive stool Anemia, unspecified type Rhys Humphrey MD [address] [place] [address] [place] [address] Referral ID Status Reason Start Date Expiration Date Visits Requested Visits Authorized [id number] Authorized Specialty Services Required 06/14/[phone] Encounter Details Date Type Department Care Team Description 06/20/2023 Office Visit Gastroenterology, [facility] [address] [place] [address] Lizzette Silva CRNP [address] [place] [address] Other iron deficiency anemia*; Fecal occult blood test positive Allergies Active Allergy Reactions Severity Noted Date [...] before bedtime. 50 Cap 0 01/18/2021 Active Jeexscf-Mthuqivuz-Dh nc 333-133-5 MG Oral Tablet Take by mouth. 0 Active Famotidine 20 MG Oral Tablet (Pepcid) Take 1 Tab by mouth 2 times a day as needed for Heartburn. 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[facility]),COPD, group D, by GOLD 2017 classification ([facility]) Inhale by mouth 1 Puff [...] Inhalation Aerosol SolutionIndications: COPD, moderate ([facility]) Inhale 2 Puffs by mouth [...] D, by GOLD 2017 classification ([facility]) Inhale 3 mL via nebulizer [...] Medication Regimen o Other: anoro, arnuity, singulair, chandler Self-Management plan o Prednisone 40mg daily [...] of femur 04/05/2015 Lichen sclerosus et atrophicus 07/22/ 4 Overview: Back/shoulder/vagina Last Assessment & Plan: Followed by derm. She has concerns about area in vaginal. Has upcoming derm appt and advised to discuss at that time. Centrilobular emphysema 06/01/2011 Nonrheumatic aortic valve stenosis 03/31 Overview: Mod-severe per ANDREA 5/3/11 Last Assessment & Plan: Stable Following with [...] mRNA, LNP-s, No Pre serve, 2-Dose Series (Navitell) 07/11/2021,11/14/2020,10/24/2020 Covid-19, Mrna, Lnp-s, Pf, B ivalent, 30 Mcg, IM, 12 yrs and above (Pfizer) 07/21/2022 Pneumococcal Conjugate Vacc, 13 Valent (Prevnar) 03/16/2015 Pneumococcal Conjugate Vacci ne, 20-valent ([id number]) 07/21/2022 Pneumococcal Polysaccharide PPV23 (Pneumovax) 03/05/2019,07/18/2007 Season [...] Sign Reading Time Taken Comments Blood Pressure 199/80 06/20/2023 8:49 AM EDT Pulse 76 06/20/2023 8:49 AM EDT Temperature 36.5 C (97.7 F) 06/20/2023 8:49 AM ED T Respiratory Rate - - Oxygen Saturation 91% 06/20/2023 8:49 AM EDT Inhaled Oxygen Concentration - - Weight 70 kg (154 lb 6.4 oz) 06/20/2023 8:49 AM EDT Height - - Body Mass Index 26.5 06/07/2023 7:56 AM EDT documented in this encounter Progress Notes * PITER Wills - 06/20/2023 9:38 AM EDT DATE OF SERVICE: 06/20/2023 REFERRING PHYSICIAN: Rhys Humphrey MD CC: Iron-deficiency anemia, FOBT positive HPI: Keisha Hunt is a 82 year old female, referred by Rhys Humphrey MD for evaluation of iron-deficiency anemia recently found to have positive FOBT study. Patient with history of iron-deficiency anemia, melanoma and follicular lymphoma. Most recent labs including CBC, iron profile studies B12 and folic acid reviewed in chart. Hemoglobin usually trend between 9-10. Most recently 9. Iron levels B12 and folic acid normal. Patient reports that she does see scant amount of hematochezia in her stool when she eats nuts or seeds, fresh fruits. She does have internal hemorrhoids.She denies any chest pain, shortness of breath, lightheadedness, dizziness, RICHARD, abdominal pain, nausea or vomiting. She lost 10 lb in the last year but states that she is watching how much [employer] she is eating. She takes iron 325 mg daily. Stools are dark but not tarry. Previous workup for heriron-deficiency anemia included upper endoscopy, colonoscopy, video capsule endoscopy. She did havehistory of nonbleeding esophagitis, unremarkable colonoscopy. 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 Denies tobaacco, NSAIDs. Drinks ETOH socially Past Medical History: Diagnosis Date Acute cystitis [...] (HCC) 04/16/2023 CXR TIA (transient ischemic attack) Family History Problem Relation Age of Onset Stroke Mother CVA Stroke Father CVA Past Surgical History: Procedure Laterality Date BREAST LESION,OTHER,EXCISION 1994 Breast Lesion Excise CERV;VAG CANCER SCREEN;PEL & B 03/2000 COLONOSCOPY 03/03/2013 diverticulosis, polyps, internal hemorrhoids COLONOSCOPY, DIAGNOSTIC (RECTUM) 07/31/2017 diverticulosis/[facility] COLONOSCOPY, DIAGNOSTIC (RECTUM) 09/09/2021 diverticulosis / [facility] COLORECTAL CANCER SCREEN; NOT AT RISK 11/[address] ABDOMEN/PELVIS 04/02/2013 mesenteric lymphadenopathy concerning for lymphoma DIGITAL RECTAL EXAM,ANNUAL 03/2000 EGD, FLEXIBLE, DIAGNOSTIC 03/03/2013 mild gastritis EGD, FLEXIBLE, DIAGNOSTIC 07/31/2017 normal bx, hiatal hernia/[facility] EGD, FLEXIBLE, DIAGNOSTIC 10/14/2021 reflux esophagitis, hiatal hernia / [facility] EGD, FLEXIBLE, DIAGNOSTIC 09/09/2021 hiatal hernia / [facility] HEMORRHOIDECTOMY, SIMPLE, 1 COLUMN 1989 Hemorrhoidectomy,Int/Ext,Simple MAMMOGRAM SCREENING-BILATERAL 03/2000 SIGMOIDOSCOPY, DIAGNOSTIC 1996 SPIROMETRY B/A BRONCHODILATOR 01/06/2005 obstructive airway disease THROMBOENDARECTOMY W/PATCH,NECK INCISION Right carotid endarterectomy done in [place] TOTAL ABD HYSTERECTOMY W/WO REMOVAL OF TUBE(S) 1973 non cancer reasons TOTAL HIP REPLACEMENT & PROSTHESIS 08/19/2008 left-dr ilya gamboa Social History Tobacco Use Smoking status: Former [...] TABS Take 1 Tab by mouth daily. DIURETIC TITRATION PLAN If no improvement on day 3, contact heart failure managing provider. 1 Each0 Nebulizers (NEBULIZER COMPRESSOR) [facility] Inhale via nebulizer. Use as directed. 1 Each 1 Iron 325 (65 Fe) MG Oral Tablet Take by mouth. Cranberry 500 MG Oral Capsule Take 1 Capsule by mouth in the morning and 1 Capsule before bedtime. 50 Cap Xuuwvcs-Awdtnvgpk-Vlaa 333-133-5 MG Oral Tablet Take by mouth. [...] Apply to L shoulder 350 g 2 Benzonatate 100 MG Oral Capsule Take 1 Capsule by mouth 3 times a day as needed for Cough. 30 Capsule 1 Furosemide 40 MG Oral Tablet (Lasix) One tablet daily with an extra tablet as needed for swelling 120 Tablet 3 oxygen GAS 2.5 LPM bled through cpap. (Patient not taking: Reported on 06/20/2023) 1 Each 0 Premarin 0.625 MG/GM Vaginal Cream (Estrogens Conjugated) Administer 0.5 g into the vagina at bedtime on Sunday and Sunday only. (Patient not taking: Reported on 06/20/2023) 42.5 g 1 Ramelteon 8 MG Oral Tablet (Rozerem) TAKE ONE TABLET AT BEDTIME (Patient not taking: Reported on 06/20/2023) 30 Tablet 5 No current facility-administered medications for this visit. REVIEW OF SYSTEMS: See HPI above; All other findings negative. EXAM: Filed Vitals: 06/20/23 0849 BP: 199/80 Pulse: 76 Temp: 36.5 C (97.7 F) SpO2: 91% Weight: 70 kg (154 lb 6.4 oz) GENERAL: Well developed and well nourished in no acute distress. SKIN: No rashes, ulcers, jaundice or spider angiomata. HEENT: Normocephalic, sclera clear. NECK: Supple, trachea midline, no JVD. LUNGS: Clear to auscultation bilaterally, no respiratory distress or accessory muscles used. HEART: Regular rate & rhythm, no murmurs and no gallops. ABDOMEN: Normal bowel sounds, soft and nontender. EXTREMITIES: No palmar erythema, no ankle edema, no skin discoloration, no clubbing, no cyanosis. NEURO: No lateralizing findings. Sensory/Motor grossly normal. ASSESSMENT AND PLAN: Keisha Linares is a 82 year old female, w iron deficiency anemia, noted to have fobt + study recently. She admits to have dark- colored stools but no melena, some hematochezia when she eat seeds, nuts and fresh fruits. Otherwise denies any abdominal pain, nausea, vomiting.Also denies chest pain, shortness of breath, headache, lightheadedness, dizziness. History of nonbleeding esophagitis and? Small AVM in the duodenal. Unremarkable colonoscopy. - Schedule repeat EGD, she refuses colonoscopy - Refer back to hematology ? Repeat iron infusions - Avoid ETOH, NSAIDs - Continue iron supplements 325mg daily - Noted high BP: 198/60. She refuses ED visit. She admits that she had not taken her HTN meds this AM. Advised to take them as soon as she gets home and recheck BP with her BP machine 30 mins later. If no improvement or having s/s of FOOTE, dizziness, CP, SOB, recommend ED visit. She also has Cardiology visit tomorrow. I spent a total of 30 minutes on the date of service in review of patient's record, and previously obtained information in person and appropriate medical visit, discussion and education of plan, withpatient and/or caregiver, placing orders for tests/referral/procedures as medically necessary and documentation of pertinent clinical information in patient's medical records for their visit today. RETURN TO CLINIC: [facility] documented in this encounter Nursing Notes * Selena Jeffries LPN - 06/20/2023 8:50 AM EDT Return patient- pt did not take any medication today. Bp is elevated. documented in this encounter Plan of Treatment Upcoming Encounters Date Type Specialty Care Team Description 3 Office Visit Cardiology Mi Neil PA-C [address] [place] [address] 3 Office Visit Sleep Disorders Mayda Wagner DO [address] [place] [address] 3 Scheduled Telephone [facility] Nurse Triage [address] [place] [address] 3 Office Visit Gynecology Obstetrics Shane Rowland MD [address] [place] [address] 3 Hospital Encounter Endoscopy Duncan Sangeethafrancisco javier Gutiérrez DO [address] [place] [address] 3 Surgery Endoscopy Sangeetha Song DO [address] [place] [address] ESOPHAGOGASTRODUODENOSCOPY (EGD), FLEXIBLE, TRANSORAL, DIAGNOSTIC 3 Office Visit Dermatology Marycruz Almazan PA-C [address] [place] [address] [place] [address] 4 Office Visit Sleep Disorders Sosa Freeman CRNP [address] [place] [address] 4 Office Visit Gastroenterology Lizzette Silva CRNP [address] [place] [address] 4 Office Visit Family Medicine Rhys Humphrey MD [address] [place] [address] [place] [address] 4 Nurse Only Ancillary [place], Nurse Annual Wellness [address] [place] [address] [place] [address] Scheduled Orders Name Type Priority Associated Diagnoses Orde r Schedule EGD, FLEXIBLE, DIAGNOSTIC Procedures Routine Other iron deficiency anemia Ordered: 06/20/2023 Scheduled Procedures Name Priority Associated Diagnoses Date/Ti me ESOPHAGOGASTRODUODENOSCOPY ( EGD), FLEXIBLE, TRANSORAL, DIAGNOSTIC Other iron deficiency anemia 08/10/2023 11:15 AM EST Scheduled Referrals Name Type Priority Associated Diagnoses Orde r Schedule HEMATOLOGY/ONCOLOGY REFERRAL OP Referral Within 30 days (routine) Other iron deficiency anemia Ordered: 06/20/2023 Health Maintenance Due Date Last Done Comments Alpha-1 Antitrypsin 1956 DXA Scan 06/11/2020 06/11/2018, 03/02, 02/16/2012, Additional history exists *BISPHONATE OR OTHER ACCEPTABLE MEDICATION NEEDED FOR OSTEOPOROSIS (REFER TO SMARTSET #1146) 01/23/2021 Depression Screening 03/16/2024 03/16/2023 GFR 06/13/2024 06/13/2023, 0903/2023, 09/26/2022, Additional history exists O2 ASSESSMENT COMPLETED IN PAST YEAR FOR COPD 06/13/2024 06/20/2023 Albumin/Creatinine Ratio 04/28/2025 04/28/2022 DTaP,Tdap,and Td Vaccines (3 - Td or Tdap) 09/17/2029 09/17/2019, 08/10/2011, 10/01/2001 Zoster Vaccines Completed 04/25/2020, 08/31, 07/22/2012 VITAMIN D LEVEL ONCE IN A LIFETIME-USE SMARTSET# [id number] Completed 06/29/2020, 03/16/2015 COVID-19 Vaccine Completed 07/21/2022, [...] as of this encounter Visit Diagnoses Diagnosis Other iron deficiency anemia- Primary Fecal occult blood test positive Nonspecific abnormal finding in stool contents Other iron deficiency anemia documented in this encounter Advance Directives Documents on File Type Date Recorded Patient Bun Panner Expl anation POLST 10/15/2019 3:17 PM POLST POLST 03/05/2019 POLST FORM Advance Directives and Living Will 01/27/2013 LIVING WILL Advance Directives and Living Will 01/27/2013 LIVING WILL Power of Fertilizer Mixer 01/27/2013 POWER OF A TTORNEY Power of Fertilizer Mixer 01/27/2013 POWER OF A TTORNEY Healthcare Agents on File Name Relationship Healthcare Agent Relationship Communication Cydney Benito Other - (no specific identity) Second Alternate Health Care Agent Anyi More Adult Child Health Care Roberth r of Fertilizer Mixer Care Teams Belt Turner Relationship Specialty Start Date End Date Rhys Humphrey MD [address] [place] [address] [place] [address] PCP - General Family Medicine 06/09/21 documented as of this encounter
--- OUTSIDE RECORDS SUMMARY | 2023-08-14 23:27 | External Medical Summary | Summary of Care ---
Author Name Unknown Organization [facility] Address [address] [place] [address] Phone [phone] Care Team Providers Care Body Hanger Name Role Phone Rhys Humphrey MD Primary Care Provide r Reason for Visit * Reason Comments [facility]: Acute Encounter Details Date Type Department Care Team Description 06/12/2023 Home Visit Care Coordination [address] [place], [place] [id number] [facility] [address] [place] [address] [place] [address] HTN, GOAL BELOW 140/90*; Left carotid stenosis; History of TIA (transient ischemic attack); Hypertensive heart disease with chronic diastolic congestive [...] before bedtime. 50 Cap 0 01/18/2021 Active Brbqsbc-Tkbgwwczc-Is nc 333-133-5 MG Oral Tablet Take by mouth. 0 Active Famotidine 20 MG Oral Tablet (Pepcid) Take 1 Tab by mouth 2 times a day as needed for Heartburn. 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),COPD, group D, by GOLD [...] COPD, group D, by GOLD 2017 classification ([place] [...] mRNA, LNP-s, No Pre serve, 2-Dose Series ([employer]) 07/11/2021,11/14/2020,10/24/2020 Covid-19, Mrna, Lnp-s, Pf, B ivalent, 30 Mcg, IM, 12 yrs and above (Pfizer) 07/21/2022 Pneumococcal Conjugate Vacc, 13 Valent (Prevnar) 03/16/2015 Pneumococcal Conjugate Vacci ne, 20-valent ([id number]) 07/21/2022 Pneumococcal Polysaccharide PPV23 (Pneumovax) 03/05/2019,07/18/2007 Season [...] Sign Reading Time Taken Comments Blood Pressure 104/50 06/12/2023 3:45 PM EDT Pulse 80 06/12/2023 3:40 PM EDT Temperature 36.4 C (97.5 F) 06/12/2023 3:40 PM ED T Respiratory Rate 20 06/12/2023 3:40 PM EDT Oxygen Saturation 98% 06/12/2023 3:40 PM EDT Inhaled Oxygen Concentration - - Weight - - Height - - Body Mass Index - - documented in this encounter Progress Notes * [facility] - 06/12/2023 3:42 PM EDT Patient in common area playing bingo upon JOE arrival. Walked JOE up to her apartment. States I feel terrible. Asked patient to describe her symptoms. Patient states, my blood pressure is up and down. Again asked patient to be more descriptive. Patient states [place] never felt like this before, I feel like I cant even talk right States she had a headache yesterday. Today feels like theres something going on in my head. It just doesnt feel right. States she saw PCP last week and recommended f/u labs to r/o anemia. Advised patient to go to clinic tomorrow for blood work - patient agreeable. Denies any sick contacts. Kept pulse ox on during ortho BP . Observed O2 to drop to 92-93 upon standing BP 104/50 (BP Site: Left Arm, BP Position: Standing, BP Cuff Size: Regular) | Pulse 80 | Temp 36.4 C (97.5 F) | Resp 20 | SpO2 98% BP sittin/[facility] Electronically signed by [facility] at 06/13/2023 2:41 PM EDT documented in this encounter Plan of Treatment Upcoming Encounters Date Type Specialty Care Team Description 06/14/2023 Scheduled Telephone [facility] [employer] [facility], [facility] [address] [place] [address] 06/21/2023 Office Visit Cardiology Mi Neil PA-C [address] [place] [address] 07/04/2023 [facility]uled Telephone [facility] [place] [address] [place] [address] 07/16/2023 Office Visit Gynecology Obstetrics Shane Rowland MD [address] [place] [address] 09/17/2023 Office Visit Dermatology Marycruz Almazan PA-C [address] [place] [address] [place] [address] 10/03/2023 Office Visit Sleep Disorders Sosa Freeman CRNP [address] [place] [address] 12/10/2023 Office Visit Family Medicine Rhys Humphrey MD [address] [place] [address] [place] [address] 03/18/2024 Nurse Only Ancillary Movalley, Nurse Annual Wellness [address] [place] [address] [place] [address] Health Maintenance Due Date Last Done Comments [...] D LEVEL ONCE IN A LIFETIME-USE SMARTSET# [id number] Completed 06/29/2020, 03/16/2015 COVID-19 Vaccine Completed 07/21/2022, [...] of this encounter Visit Diagnoses Diagnosis HTN, GOAL BELOW 140/90- Primary Unspecified essential hypertension Left carotid stenosis Occlusion and stenosis of carotid artery without mention of cerebral infarction History of TIA (transient ischemic attack) Transient ischemic attack (TIA), and cerebral infarction without residual deficits Hypertensive heart disease with chronic diastolic congestive heart failure (HCC) documented in this encounter Advance Directives Documents on File Type Date Recorded Patient Warehouse Picker Expl anation POLST 10/15/2019 3:17 PM POLST POLST 03/05/2019 POLST FORM Advance Directives and Living Will 01/27/2013 LIVING WILL Advance Directives and Living Will 01/27/2013 LIVING WILL Power of Demolition Engineer 01/27/2013 POWER OF A TTORNEY Power of Demolition Engineer 01/27/2013 POWER OF A TTORNEY Healthcare Agents on File Name Relationship Healthcare Agent Relationship Communication Cydney Benito Other - (no specific identity) Second Alternate Health Care Agent Anyi More Adult Child Health Care Roberth r of Demolition Engineer Care Teams Body Hanger Relationship Specialty Start Date End Date Rhys Humphrey MD [address] [place] [address] [place] [address] PCP - General Family Medicine 06/09/21 documented as of this encounter
--- OUTSIDE RECORDS SUMMARY | 2023-08-14 23:27 | External Medical Summary | Summary of Care ---
Author Name Unknown Organization [facility] Address [address] [place] [address] Phone [phone] Care Team Providers Care Labor Delivery Specialist Name Role Phone Rhys Humphrey MD Primary Care Provide r Reason for Referral * Evaluate & Treat - Unlimited Visits (Within 10 days (routine)) - Authorized Specialty Diagnoses / Procedures Referred By Contalexander t Referred To Contact Gastroenterology Diagnoses Occult blood positive stool Anemia, unspecified type Rhys Humphrey MD [address] [place] [address] [place] [address] Referral ID Status Reason Start Date Expiration Date Visits Requested Visits Authorized [id number] Authorized Specialty Services Required 06/14/2023 999 999 Question Answer Referral Priority Within 10 days (routine) For what condition is the patient being referred? All Gastro Conditions Reason for Visit * Reason Onset Date Comments Test Results 06/14/2023 Encounter Details Date Type Department Care Team Description 06/14/2023 Telephone [facility] [address] [place] [address] [place] [phone] Rhys Humphrey MD [address] [place] [address] [place] [address] Test Results Allergies Active Allergy Reactions Severity Noted Date Comments Adhesive Tape Other (Please comment),Hives High 09/29/2008 Caused welts Dextromethorphan-Gua ifenesin Neuro complications (Please comment) Medium 12/23/2021 Feels lightheaded/"foggy" documented as of this encounter (statuses as of 06/14/2023) Medications Medication Sig Dispensed Refills Start Date [...] before bedtime. 50 Cap 0 01/18/2021 Active Ahwsfxr-Vrjvrjozr-Jo nc 333-133-5 MG Oral Tablet Take by mouth. 0 Active Famotidine 20 MG Oral Tablet (Pepcid) Take 1 Tab by mouth 2 times a day as needed for Heartburn. 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 18 g 5 01/01/2023 Active Montelukast Sodium 10 MG Oral Tablet (Singulair)Indicatio ns:Moderate chronic obstructive pulmonary disease ([facility]) TAKE ONE TABLET BY MOUTH EVERY DAY [...] as of this encounter (statuses as of 06/14/2023) Active Problems Problem Noted Date Acute serous [...] as of this encounter (statuses as of 06/14/2023) Resolved Problems Problem Noted Date Resolved Date [...] as of this encounter (statuses as of 06/14/2023) Immunizations Name Administration Dates Next Due COVID-19 mRNA, LNP-s, No Pre serve, 2-Dose Series ([employer]) 07/11/2021,11/14/2020,10/24/2020 Covid-19, Mrna, Lnp-s, Pf, B ivalent, 30 Mcg, IM, 12 yrs and above ([employer]) 07/21/2022 Pneumococcal Conjugate Vacc, 13 Valent (Prevnar) 03/16/2015 Pneumococcal Conjugate Vacci ne, 20-valent ([id number]) 07/21/2022 Pneumococcal Polysaccharide PPV23 (Pneumovax) 03/05/2019,07/18/2007 Season [...] Telephone Encounter - Rhys Humphrey MD - 06/14/2023 12:32 PM EDT Spoke to pt's daughter - hgb is better but FOBT + Plan: repeat cbc in 2 weeks and Gi referral documented in this encounter Plan of Treatment Upcoming Encounters Date Type Specialty Care Team Description 06/21/2023 Office Visit Cardiology Mi Neil PA-C [address] [place] [address] 07/04/2023 Scheduled Telephone [facility] Nurse Triage [address] [place] [address] 07/16/2023 Office Visit Gynecology Obstetrics Shane Rowland MD [address] [place] [address] 09/17/2023 Office Visit Dermatology Marycruz Almazan PA-C [address] [place] [address] [place] [address] 10/03/2023 Office Visit Sleep Disorders Sosa Freeman CRNP [address] [place] [address] 12/10/2023 Office Visit Family Medicine Rhys Humphrey MD [address] [place] [address] [place] [address] 03/18/2024 Nurse Only Ancillary Movalley, Nurse Annual Wellness [address] [place] [address] [place] [address] Scheduled Orders Name Type Priority Associated Diagnoses Orde r Schedule CBC WITH WBC DIFFERENTIAL Lab Routine Occult blood positive stool Anemia, unspecified type Expected: 06/28/2023, Expires: 06/14/2024 Scheduled Referrals Name Type Priority Associated Diagnoses Order Schedule GASTROENTEROLOGY REFERRAL OP Referral Within 10 days (routine) Occult blood positive stool Anemia, unspecified type Ordered: 06/14/2023 Health Maintenance Due Date Last Done Comments [...] D LEVEL ONCE IN A LIFETIME-USE SMARTSET# [id number] Completed 06/29/2020, 03/16/2015 COVID-19 Vaccine Completed 07/21/2022, [...] as of this encounter Visit Diagnoses Diagnosis Occult blood positive stool- Primary Nonspecific abnormal finding in stool contents Anemia, unspecified type documented in this encounter Advance Directives Documents on File Type Date Recorded Patient Cremator Expl anation POLST 10/15/2019 3:17 PM POLST POLST 03/05/2019 POLST FORM Advance Directives and Living Will 01/27/2013 LIVING WILL Advance Directives and Living Will 01/27/2013 LIVING WILL Power of Stock Shaper 01/27/2013 POWER OF A TTORNEY Power of Stock Shaper 01/27/2013 POWER OF A TTORNEY Healthcare Agents on File Name Relationship Healthcare Agent Relationship Communication Cydney Benito Other - (no specific identity) Second Alternate Health Care Agent Anyi More Adult Child Health Care Roberth r of Stock Shaper Care Teams Labor Delivery Specialist Relationship Specialty Start Date End Date Rhys Humphrey MD [address] [place] [address] [place] [address] PCP - General Family Medicine 06/09/21 documented as of this encounter
--- OUTSIDE RECORDS SUMMARY | 2023-08-14 23:27 | External Medical Summary | Summary of Care ---
Author Name Unknown Organization [facility] Address [address] [place] [address] Phone [phone] Care Team Providers Care Sewing Techniques Demonstrator Name Role Phone Rhys Humphrey MD Primary Care Provide r Reason for Visit * Reason Onset Date Comments Scheduling 06/20/2023 Hematology appt Encounter Details Date Type Department Care Team Description 06/20/2023 Telephone Gastroenterology, [facility] [address] [place] [address] Lizzette Silva CRNP [address] [place] [address] Scheduling (Hematology appt) Allergies Active Allergy Reactions [...] before bedtime. 50 Cap 0 01/18/2021 Active Eoavzhp-Gwubvyvko-De nc 333-133-5 MG Oral Tablet Take by mouth. 0 Active Famotidine 20 MG Oral Tablet (Pepcid) Take 1 Tab by mouth 2 times a day as needed for Heartburn. 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 * Telephone Encounter - ISELA Maxwell - [...] Cardiology Mi Neil PA-C [address] [place] [address] 3 Office Visit Sleep Disorders Mayda Wagner, [address] [place] [address] 3 Scheduled Telephone [facility] Nurse Triage [address] [place] [address] 3 Office Visit Gynecology Obstetrics Shane Rowland MD [address] [place] [address] 3 Hospital Encounter Endoscopy Sangeetha Song DO [address] [place] [address] 3 Surgery Endoscopy Sangeetha Song DO [address] [place] [address] ESOPHAGOGASTRODUODENOSCOPY (EGD), FLEXIBLE, TRANSORAL, DIAGNOSTIC 3 Office Visit Dermatology Marycruz Almazan PA-C [address] [place] [address] [place] [address] 4 Office Visit Sleep Disorders Sosa Freeman CRNP [address] [place] [address] 4 Office Visit Gastroenterology Lizzette Silva CRNP [address] [place] [address] 4 Office Visit Family Medicine Rhys Humphrey MD [address] [place] [address] [place] [address] 4 Nurse Only Ancillary Stanton Nurse Annual Wellness [address] [place] [address] [place] [address] Scheduled Procedures Name Priority Associated Diagnoses Date/Ti [...] D LEVEL ONCE IN A LIFETIME-USE SMARTSET# [id number] Completed 06/29/2020, 03/16/2015 COVID-19 Vaccine Completed 07/21/2022, [...] Documents on File Type Date Recorded Patient Solar Installer Pv Expl anation POLST 10/15/2019 3:17 PM POLST POLST 03/05/2019 POLST FORM Advance Directives and Living Will 01/27/2013 LIVING WILL Advance Directives and Living Will 01/27/2013 LIVING WILL Power of Manufacturing Engineer Supervisor 01/27/2013 POWER OF A TTORNEY Power of Manufacturing Engineer Supervisor 01/27/2013 POWER OF A TTORNEY Healthcare Agents on File Name Relationship Healthcare Agent Relationship Communication Cydney Benito Other - (no specific identity) Second Alternate Health Care Agent Anyi More Adult Child Health Care Roberth r of Manufacturing Engineer Supervisor Care Teams Sewing Techniques Demonstrator Relationship Specialty Start Date End Date Rhys Humphrey MD [address] [place] [address] [place] [address] PCP - General Family Medicine 06/09/21 documented as of this encounter
--- OUTSIDE RECORDS SUMMARY | 2023-08-14 23:27 | External Medical Summary | Summary of Care ---
Author Name Unknown Organization [facility] Address [address] [place] [address] Phone [phone] Care Team Providers Care Stitch Welder Name Role Phone Rhys Humphrey MD Primary Care Provide r Reason for Visit * Reason Onset Date Comments Scheduling 06/20/2023 Hematology appt Encounter Details Date Type Department Care Team Description 06/20/2023 Telephone Gastroenterology, [facility] [address] [place] [address] Lizzette Silva CRNP [address] [place] [address] Scheduling (Hematology appt) Allergies Active Allergy Reactions [...] before bedtime. 50 Cap 0 01/18/2021 Active Fgxvwjr-Xrepsdayh-Lw nc 333-133-5 MG Oral Tablet Take by mouth. 0 Active Famotidine 20 MG Oral Tablet (Pepcid) Take 1 Tab by mouth 2 times a day as needed for Heartburn. 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),COPD, group D, by [...] mRNA, LNP-s, No Pre serve, 2-Dose Series ([employer]) 07/11/2021,11/14/2020,10/24/2020 Covid-19, Mrna, Lnp-s, Pf, B ivalent, 30 Mcg, IM, 12 yrs and above ([employer]) 07/21/2022 Pneumococcal Conjugate Vacc, 13 Valent (Prevnar) 03/16/2015 Pneumococcal Conjugate Vacci ne, 20-valent ([id number]) 07/21/2022 Pneumococcal Polysaccharide PPV23 (Pneumovax) 03/05/2019,07/18/2007 Season [...] * Telephone Encounter - ISELA Gomez - 06/20/2023 11:17 AM EDT Called and spoke to patient and she is scheduled to see Gris on 07/03/23. * Telephone Encounter - Agatha Haley RN - 06/20/2023 10:45 AM EDT Patient last seen 12/08/21 for this, can be scheduled with Dr Lopes or Gris. * Telephone Encounter - ISELA Maxwell - 06/20/2023 9:33 AM EDT Patient needs to be scheduled for the following appt per the checkout notes after appt on 06/20 w/ Lizzette: Hem/Onc Referral Other iron deficiency anemia [D50.8] - Primary Please reach out to patient to schedule Thank you documented in this encounter Plan of Treatment Upcoming Encounters Date Type Specialty Care Team Description 3 Office Visit Cardiology Mi Neil PA-C [address] [place] [address] 3 Office Visit Sleep Disorders Mayda Wagner, [address] [place] [address] 3 Office Visit Hematology Oncology Gris Diaz CRNP [address] [place] [address] [place] [address] 3 Scheduled Telephone [facility] Nurse Triage [address] [place] [address] 3 Office Visit Gynecology Obstetrics Shane Rowland MD [address] [place] [address] 3 Hospital Encounter Endoscopy Sangeetha Song DO [address] [place] [address] 3 Surgery Endoscopy Sangeetha Song, [address] [place] [address] ESOPHAGOGASTRODUODENOSCOPY (EGD), FLEXIBLE, TRANSORAL, DIAGNOSTIC 3 Office Visit Dermatology Marycruz Almazan PA-C [address] [place] [address] [place] [address] 4 Office Visit Sleep Disorders Sosa Freeman CRNP [address] [place] [address] 4 Office Visit Gastroenterology Lizzette Silva CRNP [address] [place] [address] 4 Office Visit Family Medicine Rhys Humphrey MD [address] [place] [address] [place] [address] 4 Nurse Only Ancillary Stanton, Nurse Annual Wellness [address] [place] [address] [place] [address] Scheduled Procedures Name Priority Associated Diagnoses Date/Ti [...] D LEVEL ONCE IN A LIFETIME-USE SMARTSET# [id number] Completed 06/29/2020, 03/16/2015 COVID-19 Vaccine Completed 07/21/2022, [...] Documents on File Type Date Recorded Patient Alligator Trapper Expl anation POLST 10/15/2019 3:17 PM POLST POLST 03/05/2019 POLST FORM Advance Directives and Living Will 01/27/2013 LIVING WILL Advance Directives and Living Will 01/27/2013 LIVING WILL Power of It Risk And Assurance Senior Manager 01/27/2013 POWER OF A TTORNEY Power of It Risk And Assurance Senior Manager 01/27/2013 POWER OF A TTORNEY Healthcare Agents on File Name Relationship Healthcare Agent Relationship Communication Cydney Beinto Other - (no specific identity) Second Alternate Health Care Agent Anyi More Adult Child Health Care Roberth r of It Risk And Assurance Senior Manager Care Teams Stitch Welder Relationship Specialty Start Date End Date Rhys Humphrey MD [address] [place] [address] [place] [address] PCP - General Family Medicine 06/09/21 documented as of this encounter
--- OUTSIDE RECORDS SUMMARY | 2023-08-14 23:27 | External Medical Summary | Summary of Care ---
Author Name Unknown Organization [facility] Address [address] [place] [address] Phone [phone] Care Team Providers Care Curing Room Supervisor Name Role Phone Rhys Humphrey MD Primary Care Provide r Reason for Visit * Reason Onset Date Comments [facility]: Maintenance 06/14/2023 Encounter Details Date Type Department Care Team Description 06/14/2023 Scheduled Telephone [facility], [facility] [address] [facility] [place] [address] Coordinator, [facility] [address] [facility] [place] [address] Allergies Active Allergy Reactions Severity Noted Date [...] before bedtime. 50 Cap 0 01/18/2021 Active Mottvih-Linkmtlyf-Sp nc 333-133-5 MG Oral Tablet Take by mouth. 0 Active Famotidine 20 MG Oral Tablet (Pepcid) Take 1 Tab by mouth 2 times a day as needed for Heartburn. 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 [facility] Telephonic Nurse Follow-Up Call [facility] Subprogram: Focused Care Management (3-9 months) Follow Up Call Type: 24 hour follow up Acute issue requiring follow-up call: Other: low BP, dizziness, fatigue Objective: 06/13/2023 10:44 AM 06/12/2023 3:45 PM 06/12/2023 3:40 PM 06/07/2023 7:56 AM 04/13/2023 3:30 PM VITALS ACROSS ENCOUNTERS BP 128/52 104/50 122/44 130/60 140/52 Pulse 80 80 84 88 Weight 70.1 kg BMI 26.52 BMI 26.54 kg/m2 Lab Results Component Value Date WBC AUTO - [facility] 5.23 06/13/2023 Lab Results Component Value Date WBC AUTO - [facility] 5.23 06/13/2023 HGB - [facility] 9.1 (L) 06/13/2023 PLATELET AUTO - [facility] 391 06/13/2023 Lab Results Component Value Date SODIUM - [facility] 142 06/13/2023 POTASSIUM - [facility] 4.4 06/13/2023 CO2 - [facility] 27 06/13/2023 CREATININE - [facility] 0.8 06/13/2023 ESTIMATED GLOMERULAR FILTRATION RATE - [facility] 72 06/13/2023 No results found for: PRO BNP, LEFT VENTRICULAR EJECTION FRACTION Remote Patient Monitoring: [facility] Blood Pressure Cuff: Oxygen Needs: NO supplemental oxygen needs identified DME Needs: NO DME needs identified Medications: No medication or dose adjustments made during acute episode Subjective: Condition Status: Symptoms resolved and back to baseline Current Concerns: Call to patient and spoke to same No dizziness as she is taking meclizine Denies lightheadedness, nausea ; edema States she is tyring to drink good amt of water and ice chips Said she just came back from being on a pontoon boat and had a picnic after boat ride. States her CPAP was recalled over a year ago., Still waiting on CPAP with oxygen from [facility]. States she spoke with [facility] 3 weeks ago. Told her they are working on it. Instructed patient to contact [facility] again for update. Instructed to contact [facility] with worsening, non emergent symptoms. Disposition: Issue resolved. All appropriate follow up scheduled. Future Visits Scheduled: Future Appointments-next 60 days Date/Time Provider Specialty Dept Phone 06/20/2023 9:00 AM (Arrive by 8:45 AM) PITER Wills Gastroenterology [phone] 06/21/2023 3:00 PM (Arrive by 2:45 PM) Mi Neil PA-C Cardiology [phone] 07/04/2023 9:30 AM [facility] Nurse Triage [facility] [phone] 07/16/2023 2:00 PM (Arrive by 1:45 PM) Shane Rowland MD Gynecology Obstetrics [phone] 09/17/2023 9:40 AM (Arrive by 9:25 AM) Marycruz Almazan PA-C Dermatology [phone] 10/03/2023 10:30 AM (Arrive by 10:15 AM) PITER Gordillo Sleep Disorders [phone] 12/10/2023 9:20 AM (Arrive by 9:05 AM) Rhys Humphrey MD Family Medicine [phone] 03/18/2024 9:00 AM Nurse Annual Well[facility] Ancillary [phone] Jennifer Raya, RAYNA documented in this encounter Plan of Treatment Upcoming Encounters Date Type Specialty Care Team Description 06/20/2023 Office Visit Gastroenterology Lizzette Silva CRNP [address] [place] [address] 06/21/2023 Office Visit Cardiology Mi Neil PA-C [address] [place] [address] 07/04/2023 Scheduled Telephone [facility] Nurse Triage [address] [place] [address] 07/16/2023 Office Visit Gynecology Obstetrics Shane Rowland MD [address] [place] [address] 09/17/2023 Office Visit Dermatology Marycruz Almazan PA-C [address] [place] [address] [place] [address] 10/03/2023 Office Visit Sleep Disorders Sosa Freeman CRNP [address] [place] [address] 12/10/2023 Office Visit Family Medicine Rhys Humphrey MD [address] [place] [address] [place] [address] 03/18/2024 Nurse Only Ancillary Stanton, Nurse Annual Wellness [address] [place] [address] [place] [address] Health Maintenance Due Date Last Done Comments [...] D LEVEL ONCE IN A LIFETIME-USE SMARTSET# [id number] Completed 06/29/2020, 03/16/2015 COVID-19 Vaccine Completed 07/21/2022, [...] Documents on File Type Date Recorded 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 Expl 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 POLST 10/15/2019 3:17 PM POLST POLST 03/05/2019 POLST FORM Advance Directives and Living Will 01/27/2013 LIVING WILL Advance Directives and Living Will 01/27/2013 LIVING WILL Power of Bulb Grower 01/27/2013 POWER OF A TTORNEY Power of Bulb Grower 01/27/2013 POWER OF A TTORNEY Healthcare Agents on File Name Relationship Healthcare Agent Relationship Communication Cydney Benito Other - (no specific identity) Second Alternate Health Care Agent Anyi More Adult Child Health Care Roberth r of Bulb Grower Care Teams Curing Room Supervisor Relationship Specialty Start Date End Date Rhys Humphrey MD [address] [place] [address] [place] [phone] PCP - General Family Medicine 06/09/21 documented as of this encounter
--- OUTSIDE RECORDS SUMMARY | 2023-08-14 23:28 | External Medical Summary ---
Author Name Unknown Address Unknown Organization K01:[facility] - [facility] [address] [place] [address] Laboratory Report Ordering Provider Test Date Status CHELSEA ARNOLD 06/13/2023 07:59:22 Final Observation Date Value Abnormality Reference (Units ) Status BUN 06/13/2023 07:59:22 13 6-20 (mg/dL) Final Creatinine 06/13/2023 07:59:22 0.8 0.5-1.0 (mg/dL) Final Glomerular filtration rate/1.73 sq M.predicted [Volume Rate/Area] in Serum, Plasma or Blood by Creatinine-based formula (CKD-EPI) 06/13/2023 07:59:22 72 >=60 (mL/min) Final eGFR is calculated based on the CKD-EPI 2020 equation SODIUM 06/13/2023 07:59:22 142 135-146 (m mol/L) Final Potassium 06/13/2023 07:59:22 4.4 3.5-5.1 (m mol/L) Final Cl 06/13/2023 07:59:22 104 98-107 (mm ol/L) Final CO2 06/13/2023 07:59:22 27 22-32 (mmo l/L) Final Anion gap 06/13/2023 07:59:22 11 7-15 (mmol /L) Final Glucose 06/13/2023 07:59:22 102 70-120 (mg /dL) Final Calcium 06/13/2023 07:59:22 8.7 8.4-10.2 ( mg/dL) Final Performing Location [facility] - [address] [place] [address]
--- OUTSIDE RECORDS SUMMARY | 2023-08-14 23:28 | External Medical Summary | Summary of Care ---
Author Name Unknown Organization [facility] Address [address] [place] [address] Phone [phone] Care Team Providers Care Fish Stringer Assembler Name Role Phone Rhys Humphrey MD Primary Care Provide r Reason for Visit * Reason Comments Outpatient Testing Encounter Details Date Type Department Care Team Description 06/13/2023 Laboratory Laboratory [address] [place] [id number] [place] [phone] Anemia, unspecified type; Iron deficiency anemia, unspecified [...] before bedtime. 50 Cap 0 01/18/2021 Active Leaygdv-Tnbxxsrfw-Rk nc 333-133-5 MG Oral Tablet Take by mouth. 0 Active Famotidine 20 MG Oral Tablet (Pepcid) Take 1 Tab by mouth 2 times a day as needed for Heartburn. 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),COPD, group D, by [...] mRNA, LNP-s, No Pre serve, 2-Dose Series (MicroCoal) 07/11/2021,11/14/2020,10/24/2020 Covid-19, Mrna, Lnp-s, Pf, B ivalent, 30 Mcg, IM, 12 yrs and above (Pfizer) 07/21/2022 Pneumococcal Conjugate Vacc, 13 Valent (Prevnar) 03/16/2015 Pneumococcal Conjugate Vacci ne, 20-valent ([id number]) 07/21/2022 Pneumococcal Polysaccharide PPV23 (Pneumovax) 03/05/2019,07/18/2007 Season [...] Team Description 06/13/2023 Scheduled Telephone [facility] Writing Lead/Mgr, Josephine Zhou [address] [place] [address] 06/14/2023 Scheduled Telephone [facility] Writing Lead/Mgr, Cedric Maximiliano [facility] [address] [place] [address] 06/21/2023 Office Visit Cardiology Mi Neil PA-C [address] [place] [address] 07/04/2023 Scheduled Telephone [facility] Cedric Vierah Nurse Triage [address] [place] [address] 07/16/2023 Office Visit Gynecology Obstetrics Shane Rowland MD [address] [place] [address] 09/17/2023 Office Visit Dermatology Marycruz Almazan PA-C [address] [place] [address] [place] [address] 10/03/2023 Office Visit Sleep Disorders Sosa Freeman CRNP [address] [place] [address] 12/10/2023 Office Visit Family Medicine Rhys Humphrey MD [address] [place] [address] [place] [address] 03/18/2024 Nurse Only Ancillary [place], Nurse Annual Wellness [address] [place] [address] [place] [address] Pending Results Name Type Priority Associated Diagnoses [...] Anemia, unspecified type 06/13/2023 7:59 AM EDT Health Maintenance Due Date Last [...] D LEVEL ONCE IN A LIFETIME-USE SMARTSET# [id number] Completed 06/29/2020, 03/16/2015 COVID-19 Vaccine Completed 07/21/2022, [...] Documents on File Type Date Recorded 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 POLST 10/15/2019 3:17 PM POLST POLST 03/05/2019 POLST FORM Advance Directives and Living Will 01/27/2013 LIVING WILL Advance Directives and Living Will 01/27/2013 LIVING WILL Power of Retail Cosmetics Sales Beauty Advisor 01/27/2013 POWER OF A TTORNEY Power of Retail Cosmetics Sales Beauty Advisor 01/27/2013 POWER OF A TTORNEY Healthcare Agents on File Name Relationship Healthcare Agent Relationship Communication Cydney Benito Other - (no specific identity) Second Alternate Health Care Agent Anyi More Adult Child Health Care Roberth r of Retail Cosmetics Sales Beauty Advisor Care Teams Fish Stringer Assembler Relationship Specialty Start Date End Date Rhys Humphrey MD [address] [place] [address] [place] [address] PCP - General Family Medicine 06/09/21 documented as of this encounter
--- OUTSIDE RECORDS SUMMARY | 2023-08-14 23:28 | External Medical Summary | Summary of Care ---
Author Name Unknown Organization [facility] Address [address] [place] [address] Phone [phone] Care Team Providers Care Flight Surveyor Name Role Phone Rhys Humphrey MD Primary Care Provide r Reason for Visit * Reason Onset Date Comments [facility]: Maintenance 06/13/2023 Encounter Details Date Type Department Care Team Description 06/13/2023 Scheduled Telephone [facility], [facility] [address] [facility] [place] [address] Coordinator, [facility] [address] [facility] [place] [address] Allergies Active Allergy Reactions Severity Noted Date [...] before bedtime. 50 Cap 0 01/18/2021 Active Dczeelq-Qzkwgxmqd-Zd nc 333-133-5 MG Oral Tablet Take by mouth. 0 Active Famotidine 20 MG Oral Tablet (Pepcid) Take 1 Tab by mouth 2 times a day as needed for Heartburn. 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),COPD, group D, by GOLD 2017 classification ([facility]) Inhale by mouth 1 Puff in [...] COPD, group D, by GOLD 2017 classification ([facility]) Inhale 3 mL via nebulizer every [...] mRNA, LNP-s, No Pre serve, 2-Dose Series (Employma) 07/11/2021,11/14/2020,10/24/2020 Covid-19, Mrna, Lnp-s, Pf, B ivalent, 30 Mcg, IM, 12 yrs and above (Employma) 07/21/2022 Pneumococcal Conjugate Vacc, 13 Valent (Prevnar) 03/16/2015 Pneumococcal Conjugate Vacci ne, 20-valent ([id number]) 07/21/2022 Pneumococcal Polysaccharide PPV23 (Pneumovax) 03/05/2019,07/18/2007 Season [...] Telephone Encounter - Jennifer Raya RN - 06/13/2023 10:10 AM EDT No call needed. Patient is scheduled for [facility] home visit today. Latha Raya RN [facility] Cake Wringer [facility] documented in this encounter Plan of Treatment Upcoming Encounters Date Type Specialty Care Team Description 06/13/2023 Home Visit [facility] Sarah Vitale, RAYNA [address] [facility] [place] [address] 06/14/2023 Scheduled Telephone [facility] Guest Coordinator, Gah Maximiliano Zhou [address] [place] [address] 06/21/2023 Office Visit Cardiology Mi Neil PA-C [address] [place] [address] 07/04/2023 Scheduled Telephone [facility] Nurse Triage [address] [place] [address] 07/16/2023 Office Visit Gynecology Obstetrics Shane Rowland MD [address] [place] [address] 09/17/2023 Office Visit Dermatology Marycruz Almazan PA-C [address] [place] [address] [place] [address] 10/03/2023 Office Visit Sleep Disorders Sosa Freeman CRNP [address] [place] [address] 12/10/2023 Office Visit Family Medicine Rhys Humphrey MD [address] [place] [address] [place] [address] 03/18/2024 Nurse Only Ancillary [place], Nurse Annual Wellness [address] [place] [address] [place] [address] Health Maintenance Due Date Last Done Comments [...] D LEVEL ONCE IN A LIFETIME-USE SMARTSET# [id number] Completed 06/29/2020, 03/16/2015 COVID-19 Vaccine Completed 07/21/2022, [...] Documents on File Type Date Recorded Patient Finish Mender Expl anation POLST 10/15/2019 3:17 PM POLST POLST 03/05/2019 POLST FORM Advance Directives and Living Will 01/27/2013 LIVING WILL Advance Directives and Living Will 01/27/2013 LIVING WILL Power of Head Of Measurement & Insights 01/27/2013 POWER OF A TTORNEY Power of Head Of Measurement & Insights 01/27/2013 POWER OF A TTORNEY Healthcare Agents on File Name Relationship Healthcare Agent Relationship Communication Cydney Benito Other - (no specific identity) Second Alternate Health Care Agent Anyi More Adult Child Health Care Roberth r of Head Of Measurement & Insights Care Teams Flight Surveyor Relationship Specialty Start Date End Date Rhys Humphrey MD [address] [place] [address] [place] [address] PCP - General Family Medicine 06/09/21 documented as of this encounter
--- OUTSIDE RECORDS SUMMARY | 2023-08-14 23:28 | External Medical Summary | Summary of Care ---
Author Name Unknown Organization [facility] Address [address] [place] [address] Phone [phone] Care Team Providers Care Editor City Name Role Phone Rhys Humphrey MD Primary Care Provide r Reason for Visit * Reason Onset Date Comments [facility]: Acute 06/12/2023 Encounter Details Date Type Department Care Team Description 06/12/2023 Telephone [facility] [address] [facility] [place] [address] Region, Nurse [address] [place] [address] [facility]: Acute Allergies Active Allergy Reactions Severity Noted Date Comments Adhesive Tape Other (Please comment),Hives High 09/29/2008 Caused welts Dextromethorphan-Gua ifenesin Neuro complications (Please comment) Medium 12/23/2021 Feels lightheaded/"foggy" documented as of this encounter (statuses as of 06/12/2023) Medications Medication Sig Dispensed Refills Start Date [...] before bedtime. 50 Cap 0 01/18/2021 Active Mgyfhkp-Tjwukuktn-Rc nc 333-133-5 MG Oral Tablet Take by mouth. 0 Active Famotidine 20 MG Oral Tablet (Pepcid) Take 1 Tab by mouth 2 times a day as needed for Heartburn. 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),COPD, group D, by [...] as of this encounter (statuses as of 06/12/2023) Active Problems Problem Noted Date Acute serous [...] as of this encounter (statuses as of 06/12/2023) Resolved Problems Problem Noted Date Resolved Date [...] as of this encounter (statuses as of 06/12/2023) Immunizations Name Administration Dates Next Due COVID-19 mRNA, LNP-s, No Pre serve, 2-Dose Series (Voxy) 07/11/2021,11/14/2020,10/24/2020 Covid-19, Mrna, Lnp-s, Pf, B ivalent, 30 Mcg, IM, 12 yrs and above (Voxy) 07/21/2022 Pneumococcal Conjugate Vacc, 13 Valent (Prevnar) 03/16/2015 Pneumococcal Conjugate Vacci ne, 20-valent ([id number]) 07/21/2022 Pneumococcal Polysaccharide PPV23 (Pneumovax) 03/05/2019,07/18/2007 Season [...] Addendum Note - Isaac Parker PA-C - 06/12/2023 1:26 PM EDTAddended by: ISAAC PARKER on: 06/12/2023 01:26 PM Modules accepted: Orders * Telephone Encounter - Isaac Parker PA-C - 06/12/2023 1:10 PM EDT [facility] Command Phone Encounter Thank you for your assistance in the care of this patient today. 82 year old year old female patient who presents today with BP issues that seem to have resolved. Dizziness (when supine) and fatigue ? Dehydration BRBPR, no black stool hx iron deficiency anemia Recommendations: Cbc, bmp Have patient cycle BP sitting and standing Possible IVF Visit for possible IV fluids This note was prepared with the help of fluency and if there is any mis-spelled words , sentences or something which doesn't represent the content of the subject that could be technical error and please refer to the author for clarification. * Telephone Encounter - Camila Thakur RN - 06/12/2023 12:38 PM EDT Images from the original note were not included. [facility] customer care manager Acute Call Date: 06/12/2023 Time: 12:39 PM Name: Keisha Linares : 1940 Caller: Keisha Relationship to pt- self Chief Complaint Patient presents with [facility]: Acute HPI: Keisha Linares is a 82 year old female that is calling [facility] Intake to report that her BP has been low this morning on [facility] cuff and she feels weak today with head spinning.. Nursing Assessment: Patient's chief complaint for this call: Weakness/dizziness Pt states that she has a BP cuff from [facility]. Her BP has been low this morning- 83/52. She said that her BP was 168/60 yesterday and 155/57 on Sunday. Her head feels like spinning forthe past 2 days. She c/o feeling weak and tired. She states that she had an "awful headache" the past 2 days. Deniesheadache today. She denies any new medications, denies any changes in her meds. Pt states that the head spinning occurs when she lies in bed, not when she gets up to stand or walk. Denies NVD. Deniesfever or chills. States that her SOB is at baseline. Denies chest pain. She states that she had a BM yesterday and there was red blood on the toilet paper and today she had a BM and there was pink when she wiped. Stools are light brown in color. Denies edema. She is concerned that perhaps her iron level is low again and she needs an infusion? Requested for pt to recheck her BP while media relations intern with this customer care manager: 168/63 P 88 at time of call. Pain Denies pain Baseline Assessment Able to performing ADLs at baseline (walking, daily tasks, etc.): Yes Chief Complaint is related to a chronic condition: Unknown Patient prescribed oxygen? Yes, 2.5L/min Patient has been ordered DME equipment (assistive devices, respiratory equipment, etc.): Yes Describe DME devices: walker Patient is using DME device as directed: Yes Medication Reconciliation: (See medication list) Taking medication as ordered: Yes Medications ordered/taking to treat reason for call: Yes, PRN medication(s) Instructed pt to take Meclizine as prescribed now Heart failure symptoms: No COPD exacerbation symptoms: No Reinforcement Education: Continue to take all medications as prescribed Stay hydrated within fluid restriction limit Continue to monitor and record weights, BP, P Change position slowly, use walker for all ambulation Monitor for worsening symptoms- increased dizziness, low BP, increased weakness, lethargy, NVD Treatment/Plan: (need to report) Level of call: Non-Acute Recommended treatment plan: Clinical advice given over the phone Will send to Provider for orders/ recommendations Scheduled 24/ 48 hr f/u calls Call back instructions provided to patient. Camila BAUMAN, RN [facility] Intake Triage Coordinator [phone] documented in this encounter Plan of Treatment Upcoming Encounters Date Type Specialty Care Team Description 06/13/2023 Scheduled Telephone [facility] Project Manager, [facility] [address] [place] [address] 06/14/2023 Scheduled Telephone [facility] Project Manager, [facility] [address] [place] [address] 06/21/2023 Office Visit Cardiology Mi Neil PA-C [address] [place] [address] 07/04/2023 Scheduled Telephone [facility] Nurse Triage [address] [place] [address] 07/16/2023 Office Visit Gynecology Obstetrics Shane Rowland MD [address] [place] [address] 09/17/2023 Office Visit Dermatology Marycruz Almazan PA-C [address] [place] [address] [place] [address] 10/03/2023 Office Visit Sleep Disorders Sosa Freeman CRNP [address] [place] [address] 12/10/2023 Office Visit Family Medicine Rhys Humphrey MD [address] [place] [address] [place] [address] 03/18/2024 Nurse Only Ancillary [place], Nurse Annual Wellness [address] [place] [address] [place] [address] Scheduled Orders Name Type Priority Associated Diagnoses Orde r Schedule CBC WITH WBC DIFFERENTIAL AND ANEMIA REFLEX WORKUP Lab Routine Iron deficiency anemia, unspecified iron deficiency anemia type Hypertensive heart disease with chronic diastolic congestive heart failure (HCC) Expected: 06/12/2023 (Approximate), Expires: 06/12/2024 BASIC METABOLIC PANEL Lab Routine Iron deficiency anemia, unspecified iron deficiency anemia type Hypertensive heart disease with chronic diastolic congestive heart failure (HCC) Expected: 06/12/2023 (Approximate), Expires: 06/11/2024 Health Maintenance Due Date Last Done Comments [...] D LEVEL ONCE IN A LIFETIME-USE SMARTSET# [id number] Completed 06/29/2020, 03/16/2015 COVID-19 Vaccine Completed 07/21/2022, [...] as of this encounter Visit Diagnoses Diagnosis Iron deficiency anemia, unspecified iron deficiency anemia type- Primary Hypertensive heart disease with chronic diastolic congestive heart failure (HCC) documented in this encounter Advance Directives Documents on File Type Date Recorded Patient Health Aide Expl anation POLST 10/15/2019 3:17 PM POLST POLST 03/05/2019 POLST FORM Advance Directives and Living Will 01/27/2013 LIVING WILL Advance Directives and Living Will 01/27/2013 LIVING WILL Power of Reinsurance Accountant 01/27/2013 POWER OF A TTORNEY Power of Reinsurance Accountant 01/27/2013 POWER OF A TTORNEY Healthcare Agents on File Name Relationship Healthcare Agent Relationship Communication Cydney Benito Other - (no specific identity) Second Alternate Health Care Agent Anyi More Adult Child Health Care Roberth r of Reinsurance Accountant Care Teams Editor City Relationship Specialty Start Date End Date Rhys Humphrey MD [address] [place] [address] [place] [address] PCP - General Family Medicine 06/09/21 documented as of this encounter
--- OUTSIDE RECORDS SUMMARY | 2023-08-14 23:28 | External Medical Summary | Summary of Care ---
Author Name Unknown Organization [facility] Address [address] [place] [address] Phone [phone] Care Team Providers Care Passenger Representative Name Role Phone Rhys Humphrey MD Primary Care Provide r Reason for Visit * Reason Onset Date Comments [facility]: Maintenance 06/12/2023 Encounter Details Date Type Department Care Team Description 06/12/2023 Telephone [facility], [place] [facility] [address] [facility] [place] [address] Region, Nurse [place] [address] [address] [facility] [place] [address] [facility]: Maintenance Allergies Active Allergy [...] before bedtime. 50 Cap 0 01/18/2021 Active Xabxjhf-Rypudsojm-Tw nc 333-133-5 MG Oral Tablet Take by mouth. 0 Active Famotidine 20 MG Oral Tablet (Pepcid) Take 1 Tab by mouth 2 times a day as needed for Heartburn. 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 Home number voice mail box is full. Outgoing call to pt's dtr and notified her that JOE will see her mom today around 3:30pm. Anyi will call the pt's neighbor Lala- she states that when the pt does not feel well she does not like to be alone and she will go [place] to her neighbor's. Anyi will make sure the pt knows that the JOE will see her around 3:30pm today. Camila BAUMAN, RN [facility] Intake Triage Coordinator [phone] * Telephone Encounter - Mariel WelchDUNCAN - 06/12/2023 11:52 AM EDT Images from the original note were not included. [facility] Telephonic Nurse Follow-Up Call [facility] Subprogram: Focused Care Management (3-9 months) Follow Up Call Type: Routine follow up call / Status Check Acute issue requiring follow-up call: Remote Patient Monitoring Trigger Objective: 06/07/2023 7:56 AM 04/13/2023 3:30 PM 04/09/2023 10:00 AM 03/16/2023 9:58 AM 03/16/2023 8:39 AM VITALS ACROSS ENCOUNTERS BP 130/60 140/52 120/60 124/52 124/52 Pulse 84 88 88 93 93 Weight 70.1 kg 66.2 kg 66.6 kg BMI 26.52 25.05 BMI 26.54 kg/m2 25.06 kg/m2 25 kg/m2 Lab Results Component Value Date WBC AUTO - [facility] 4.97 06/07/2023 Lab Results Component Value Date WBC AUTO - [facility] 4.97 06/07/2023 HGB - [facility] 8.2 (L) 06/07/2023 PLATELET AUTO - [facility] 339 06/07/2023 Lab Results Component Value Date SODIUM - [facility] 143 06/07/2023 POTASSIUM - [facility] 3.6 06/07/2023 CO2 - [facility] 26 06/07/2023 CREATININE - [facility] 0.8 06/07/2023 ESTIMATED GLOMERULAR FILTRATION RATE - [facility] 73 06/07/2023 No results found for: PRO BNP, LEFT VENTRICULAR EJECTION FRACTION Remote Patient Monitoring: Oxygen Needs: NO CHANGE from baseline supplemental oxygen needs DME Needs: Nebulizer machine and supplies Medications: No medication or dose adjustments made during acute episode Subjective: Call to patient regarding [facility] blood pressure trigger. Left message on mobile number for return callto [facility] Future Visits Scheduled: Future Appointments-next 60 days Date/Time Provider Specialty Dept Phone 06/21/2023 3:00 PM (Arrive by 2:45 PM) Mi Neil PA-C Cardiology [phone] 07/04/2023 9:30 AM [facility] Nurse Triage [place] [facility] [phone] 07/16/2023 2:00 PM (Arrive by 1:45 PM) Shane Rowland MD Gynecology Obstetrics [phone] 09/17/2023 9:40 AM (Arrive by 9:25 AM) Marycruz Almazan PA-C Dermatology [phone] 09/20/2023 8:30 AM (Arrive by 8:15 AM) PITER Gordillo Sleep Disorders [phone] 12/10/2023 9:20 AM (Arrive by 9:05 AM) Rhys Humphrey MD Family Medicine [phone] 03/18/2024 9:00 AM Nurse Annual Wellness [place] Ancillary [phone] Mariel Welch LPN documented in this encounter Plan of Treatment Upcoming Encounters Date Type Specialty Care Team Description 06/12/2023 Home Visit Family Medicine Marlen Strange, [address] [place] [address] 06/13/2023 Scheduled Telephone [facility] Child Welfare Specialist, [facility] [address] [place] [address] 06/14/2023 Scheduled Telephone [facility] Child Welfare Specialist, [facility] [address] [place] [address] 06/21/2023 Office Visit Cardiology Mi Neil PA-C [address] [place] [address] 07/04/2023 Scheduled Telephone [facility] Nurse Triage [address] [place] [address] 07/16/2023 Office Visit Gynecology Obstetrics Shane Rowland MD [address] [place] [address] 09/17/2023 Office Visit Dermatology Marycruz Almazan PA-C [address] [place] [address] [place] [address] 10/03/2023 Office Visit Sleep Disorders Sosa Freeman CRNP [address] [place] [address] 12/10/2023 Office Visit Family Medicine Rhys Humphrey MD [address] [place] [address] [place] [address] 03/18/2024 Nurse Only Ancillary [place], Nurse Annual Wellness [address] [place] [address] [place] [address] Health Maintenance Due Date Last Done Comments [...] D LEVEL ONCE IN A LIFETIME-USE SMARTSET# [id number] Completed 06/29/2020, 03/16/2015 COVID-19 Vaccine Completed 07/21/2022, [...] Documents on File Type Date Recorded Patient Hide Grader Expl anation POLST 10/15/2019 3:17 PM POLST POLST 03/05/2019 POLST FORM Advance Directives and Living Will 01/27/2013 LIVING WILL Advance Directives and Living Will 01/27/2013 LIVING WILL Power of Network Associate 01/27/2013 POWER OF A TTORNEY Power of Network Associate 01/27/2013 POWER OF A TTORNEY Healthcare Agents on File Name Relationship Healthcare Agent Relationship Communication Cydney Benito Other - (no specific identity) Second Alternate Health Care Agent Anyi More Adult Child Health Care Roberth r of Network Associate Care Teams Passenger Representative Relationship Specialty Start Date End Date Rhys Humphrey MD [address] [place] [address] [place] [address] PCP - General Family Medicine 06/09/21 documented as of this encounter
--- OUTSIDE RECORDS SUMMARY | 2023-08-14 23:28 | External Medical Summary | Summary of Care ---
Author Name Unknown Organization [facility] Address [address] [place] [address] Phone [phone] Care Team Providers Care Wax Pattern Repairer Name Role Phone Rhys Humphrey MD Primary Care Provide r Reason for Visit * Reason Onset Date Comments [facility]: Acute 06/12/2023 Encounter Details Date Type Department Care Team Description 06/12/2023 Telephone [facility], [facility] [address] [facility] [place] [address] Region, Nurse [address] [place] [address] [facility]: Acute Allergies Active Allergy [...] before bedtime. 50 Cap 0 01/18/2021 Active Kmisvji-Lyuvxestc-Ys nc 333-133-5 MG Oral Tablet Take by mouth. 0 Active Famotidine 20 MG Oral Tablet (Pepcid) Take 1 Tab by mouth 2 times a day as needed for Heartburn. 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 [facility] gravity manager Acute Call Date: 06/12/2023 Time: 12:39 PM Name: Keisha Linares : 1940 Caller: Keisha Relationship to pt- self Chief Complaint Patient presents with [facility]: Acute HPI: Keisha Linares is a 82 year old female that is calling [facility] Intake to report that her BP has been low this morning on [facility] cuff and she feels weak today with head spinning.. Nursing Assessment: Patient's chief complaint for this call: Weakness/dizziness Pt states that she has a BP cuff from [facility]. Her BP has been low this [...] for pt to recheck her BP while control manager with this gravity manager: 168/63 P 88 at time of [...] instructions provided to patient. Camila BAUMAN, RN [facility] Intake Triage Coordinator [phone] documented in this encounter Plan of Treatment Upcoming Encounters Date Type Specialty Care Team Description 06/12/2023 Home Visit Family Medicine Marlen Strange, [address] [place] [address] 06/13/2023 Scheduled Telephone [facility] Termite Treater, [facility] [address] [address] 06/14/2023 Scheduled Telephone [facility] Termite Treater, [facility] [address] [place] [address] 06/21/2023 Office Visit Cardiology Mi Neil PA-C [address] [place] [address] 07/04/2023 Scheduled Telephone [facility] Nurse Triage [address] [place] [address] 07/16/2023 Office Visit Gynecology Obstetrics Shane Rowland MD [address] [place] [address] 09/17/2023 Office Visit Dermatology Marycruz Almazan PA-C [address] [place] [address] [place] [address] 10/03/2023 Office Visit Sleep Disorders Sosa Freeman CRNP [address] [place] [address] 12/10/2023 Office Visit Family Medicine Rhys Humphrey MD [address] [place] [address] [place] [address] 03/18/2024 Nurse Only Ancillary [place], Nurse Annual Wellness [address] [place] [address] [place] [address] Scheduled Orders Name Type Priority Associated Diagnoses [...] D LEVEL ONCE IN A LIFETIME-USE SMARTSET# [id number] Completed 06/29/2020, 03/16/2015 COVID-19 Vaccine Completed 07/21/2022, [...] Documents on File Type Date Recorded Patient Cost Control Specialist Expl anation POLST 10/15/2019 3:17 PM POLST POLST 03/05/2019 POLST FORM Advance Directives and Living Will 01/27/2013 LIVING WILL Advance Directives and Living Will 01/27/2013 LIVING WILL Power of Behavioral Sciences Department Chair 01/27/2013 POWER OF A TTORNEY Power of Behavioral Sciences Department Chair 01/27/2013 POWER OF A TTORNEY Healthcare Agents on File Name Relationship Healthcare Agent Relationship Communication Cydney Benito Other - (no specific identity) Second Alternate Health Care Agent Anyi More Adult Child Health Care Roberth r of Behavioral Sciences Department Chair Care Teams Wax Pattern Repairer Relationship Specialty Start Date End Date Rhys Humphrey MD [address] [place] [address] [place] [address] PCP - General Family Medicine 06/09/21 documented as of this encounter
--- OUTSIDE RECORDS SUMMARY | 2023-08-14 23:28 | External Medical Summary ---
Author Name Unknown Address Unknown Organization [id number]:[facility] [place] [address] [facility] [address] Laboratory Report Ordering Provider Test Date Status CARLOS LEVIN 06/13/2023 07:59:22 Beatriz l Observation Date Value Abnormality Reference (Units ) Status SYNC LEUKOCYTES IN BLOOD BY AUTOMATED COUNT 06/13/2023 07:59:22 5.23 4.00-10.80 (K/uL) Final Segs 06/13/2023 07:59:22 43.6 40.0-75.0 (%) Final Lymphs % 06/13/2023 07:59:22 34.6 18.0-42.0 (%) Final Monos 06/13/2023 07:59:22 9.9 1.0-11.0 (%) Final Eosinophils 06/13/2023 07:59:22 10.7 Above high normal 0.0-6.0 (%) Final Basos 06/13/2023 07:59:22 1.0 0.0-2.0 (%) Final Immature Granulocyte, Percent 06/13/2023 07:59:22 0.2 0.0-2.0 (%) Final Absolute Segs 06/13/2023 07:59:22 2.28 1.80-7.70 (K/uL) Final Lymphs, absolute 06/13/2023 07:59:22 1.81 1.00-4.80 (K/ul) Final Monos, Abs 06/13/2023 07:59:22 0.52 0.00-1.10 (K/uL) Final Eos, Abs 06/13/2023 07:59:22 0.56 0.00-0.70 (K/uL) Final Basos, Abs 06/13/2023 07:59:22 0.05 0.00-0.20 (K/uL) Final Immature Granulocytes, Number 06/13/2023 07:59:22 0.01 0.00-0.20 (K/uL) Final Performing Location [facility] [place] [facility] [place] [address]
--- OUTSIDE RECORDS SUMMARY | 2023-08-14 23:28 | External Medical Summary ---
Author Name Unknown Address Unknown Organization [id number][place] [place] [address] [place] [address] Laboratory Report Ordering Provider Test Date Status NHITHADJUSTIN HILTONMILLIE 06/13/2023 10:37:00 Beatriz l Observation Date Value Abnormality Reference (Units ) Status Occult Blood (EIA) 06/13/2023 10:37:00 Positive Abnormal N egative Final Performing Location [facility] [place] [address] [place] [address]
--- OUTSIDE RECORDS SUMMARY | 2023-08-14 23:28 | External Medical Summary | Summary of Care ---
Author Name Unknown Organization [facility] Address [address] [place] [address] Phone [phone] Care Team Providers Care Bilingual Hr Generalist Name Role Phone Rhys Humphrey MD Primary Care Provide r Reason for Visit * Reason Onset Date Comments [facility]: Acute 06/12/2023 Encounter Details Date Type Department Care Team Description 06/12/2023 Telephone [facility], [facility] [address] [facility] [place] [address] Region, Nurse [address] [place] [address] [facility]: Acute Allergies Active Allergy [...] before bedtime. 50 Cap 0 01/18/2021 Active Wtspkvq-Qoyezhogh-Ay nc 333-133-5 MG Oral Tablet Take by mouth. 0 Active Famotidine 20 MG Oral Tablet (Pepcid) Take 1 Tab by mouth 2 times a day as needed for Heartburn. 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),COPD, group D, by GOLD [...] low 73%, basal 90%, <89% 38 mins, NRUIA 10 Moderate obstructive and restrictive lung diseas [...] mRNA, LNP-s, No Pre serve, 2-Dose Series ([employer]) 07/11/2021,11/14/2020,10/24/2020 Covid-19, Mrna, Lnp-s, Pf, B ivalent, 30 Mcg, IM, 12 yrs and above ([employer]) 07/21/2022 Pneumococcal Conjugate Vacc, 13 Valent (Prevnar) 03/16/2015 Pneumococcal Conjugate Vacci ne, 20-valent ([id number]) 07/21/2022 Pneumococcal Polysaccharide PPV23 (Pneumovax) 03/05/2019,07/18/2007 Season [...] Encounter - Camila Thakur RN - 06/12/2023 4:03 PM EDT Per JOE Gee: T 36.4 P 80 R 20 O 98 BP sit 122/44 Stand 104/50 Kept pulse ox on during ortho BP . Observed O2 to drop to 92-93 upon standing Camila BAUMAN, RN [facility] Intake Triage Coordinator [phone] * Telephone Encounter - Sarah Vitale RN - 06/12/2023 2:31 PM EDT Phone call to patient several times. Home Cell number x 3- no answer unable to leave message. Cell phone- x 3 . Message left for return call. Patient is mobile and is able to get to clinic. Please have patient have labs done tomorrow morning. * Telephone Encounter - Camila Thakur RN - 06/12/2023 2:29 PM EDT Outgoing call to pt- LMOM [...] her around 3:30pm today. Camila BAUMAN, RN [facility] Intake Triage Coordinator [phone] * Addendum Note - Isaac Parker PA-C [...] from the original note were not included. [facility] cloth washer operator Acute Call Date: 06/12/2023 Time: 12:39 PM Name: Keisha Linares : 1940 Caller: Keisha Relationship to pt- self Chief Complaint Patient presents with [facility]: Acute HPI: Keisha Linares is a 82 year old female that is calling [facility] Intake to report that her BP has been low this morning on [facility] cuff and she feels weak today with head spinning.. Nursing Assessment: Patient's chief complaint for this call: Weakness/dizziness Pt states that she has a BP cuff from [facility]. 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 [...] instructions provided to patient. Camila BAUMAN, RN [facility] Intake Triage Coordinator [phone] documented in this encounter Plan of Treatment Upcoming Encounters Date Type Specialty Care Team Description 06/13/2023 Scheduled Telephone [facility] [place], [facility] [address] [place] [address] 06/14/2023 Scheduled Telephone [facility] [place], [facility] [address] [place] [address] 06/21/2023 Office Visit Cardiology Mi Neil PA-C [address] [place] [address] 07/04/2023 Scheduled Telephone [facility] Nurse Triage [address] [place] [address] 07/16/2023 Office Visit Gynecology Obstetrics Shane Rowland MD [address] [place] [address] 09/17/2023 Office Visit Dermatology Marycruz Almazan PA-C [address] [place] [address] [place] [address] 10/03/2023 Office Visit Sleep Disorders Sosa Freeman CRNP [address] [place] [address] 12/10/2023 Office Visit Family Medicine Rhys Humphrey MD [address] [place] [address] [place] [address] 03/18/2024 Nurse Only Ancillary [place], Nurse Annual [facility] [address] [place] [address] [place] [address] Scheduled Orders Name Type Priority Associated Diagnoses [...] D LEVEL ONCE IN A LIFETIME-USE SMARTSET# [id number] Completed 06/29/2020, 03/16/2015 COVID-19 Vaccine Completed 07/21/2022, [...] Documents on File Type Date Recorded Patient Inventory Auditor Expl anation POLST 10/15/2019 3:17 PM POLST POLST 03/05/2019 POLST FORM Advance Directives and Living Will 01/27/2013 LIVING WILL Advance Directives and Living Will 01/27/2013 LIVING WILL Power of Line Supply 01/27/2013 POWER OF A TTORNEY Power of Line Supply 01/27/2013 POWER OF A TTORNEY Healthcare Agents on File Name Relationship Healthcare Agent Relationship Communication Cydney Benito Other - (no specific identity) Second Alternate Health Care Agent Anyi More Adult Child Health Care Roberth r of Line Supply Care Teams Bilingual Hr Generalist Relationship Specialty Start Date End Date Rhys Humphrey MD [address] [place] [address] [place] [address] PCP - General Family Medicine 06/09/21 documented as of this encounter
--- OUTSIDE RECORDS SUMMARY | 2023-08-14 23:28 | External Medical Summary | Summary of Care ---
Author Name Unknown Organization [facility] Address [address] [place] [address] Phone [phone] Care Team Providers Care Credit Card Associate Name Role Phone Rhys Humphrey MD Primary Care Provide r Reason for Visit * Reason Onset Date Comments [facility]: Acute 06/12/2023 Encounter Details Date Type Department Care Team Description 06/12/2023 Telephone [facility], [facility] [address] [facility] [place] [address] Region, Nurse [address] [place] [address] [facility]: Acute Allergies Active Allergy [...] before bedtime. 50 Cap 0 01/18/2021 Active Injhxey-Pnvqswfli-Gb nc 333-133-5 MG Oral Tablet Take by mouth. 0 Active Famotidine 20 MG Oral Tablet (Pepcid) Take 1 Tab by mouth 2 times a day as needed for Heartburn. 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 Camila BAUMAN, RN [facility] Intake Triage Coordinator [phone] * Addendum Note - Isaac Parker PA-C [...] note were not included. 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 Nursing Assessment: Patient's chief complaint for this call: Weakness/dizziness Pt states that she has a BP cuff from [facility]. 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 [...] instructions provided to patient. Camila BAUMAN, RN [facility] Intake Triage Coordinator [phone] documented in this encounter Plan of Treatment Upcoming Encounters Date Type Specialty Care Team Description 06/12/2023 Home Visit Family Medicine Marlen Strange [facility] Fish Protector [address] [place] [address] [place] [address] 06/13/2023 Scheduled Telephone [facility], [facility] [address] [place] [address] 06/14/2023 Scheduled Telephone [facility], [facility] [address] [place] [address] 06/21/2023 Office Visit Cardiology Mi Neil PA-C [address] [place] [address] 07/04/2023 Scheduled Telephone [facility] Nurse Triage [address] [place] [address] 07/16/2023 Office Visit Gynecology Obstetrics Shane Rowland MD [address] [place] [address] 09/17/2023 Office Visit Dermatology Marycruz Almazan PA-C [address] [place] [address] [place] [address] 10/03/2023 Office Visit Sleep Disorders Sosa Freeman CRNP [address] [place] [address] 12/10/2023 Office Visit Family Medicine Rhys Humphrey MD [address] [place] [address] [place] [address] 03/18/2024 Nurse Only Ancillary Nurse Stanton [facility] [address] [place] [address] [place] [phone] Scheduled Orders Name Type Priority Associated Diagnoses [...] D LEVEL ONCE IN A LIFETIME-USE SMARTSET# [id number] Completed 06/29/2020, 03/16/2015 COVID-19 Vaccine Completed 07/21/2022, [...] Documents on File Type Date Recorded Patient Oracle Adf Developer Expl anation POLST 10/15/2019 3:17 PM POLST POLST 03/05/2019 POLST FORM Advance Directives and Living Will 01/27/2013 LIVING WILL Advance Directives and Living Will 01/27/2013 LIVING WILL Power of Motor Power Connector 01/27/2013 POWER OF A TTORNEY Power of Motor Power Connector 01/27/2013 POWER OF A TTORNEY Healthcare Agents on File Name Relationship Healthcare Agent Relationship Communication Cydney Benito Other - (no specific identity) Second Alternate Health Care Agent Anyi More Adult Child Health Care Roberth r of Motor Power Connector Care Teams Credit Card Associate Relationship Specialty Start Date End Date Rhys Humphrey MD [address] [place] [address] [place] [address] PCP - General Family Medicine 06/09/21 documented as of this encounter
--- OUTSIDE RECORDS SUMMARY | 2023-08-14 23:28 | External Medical Summary | Summary of Care ---
Author Name Unknown Organization [facility] Address [address] [place] [address] Phone [phone] Care Team Providers Care Media Buyer Name Role Phone Rhys Humphrey MD Primary Care Provide r Reason for Visit * Reason Onset Date Comments [facility]: Acute 06/12/2023 Encounter Details Date Type Department Care Team Description 06/12/2023 Telephone [facility], [facility] [address] [facility] [place] [address] Region, Nurse [address] [place] [address] [facility]: Acute Allergies Active Allergy [...] before bedtime. 50 Cap 0 01/18/2021 Active Rgvswvh-Tzbyrrvaz-Nj nc 333-133-5 MG Oral Tablet Take by mouth. 0 Active Famotidine 20 MG Oral Tablet (Pepcid) Take 1 Tab by mouth 2 times a day as needed for Heartburn. 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),COPD, group D, by GOLD [...] group D, by GOLD 2017 classification ([facility]) Inhale 3 mL via nebulizer [...] mRNA, LNP-s, No Pre serve, 2-Dose Series ([employer]) 07/11/2021,11/14/2020,10/24/2020 Covid-19, Mrna, Lnp-s, Pf, B ivalent, 30 Mcg, IM, 12 yrs and above ([employer]) 07/21/2022 Pneumococcal Conjugate Vacc, 13 Valent (Prevnar) 03/16/2015 Pneumococcal Conjugate Vacci ne, 20-valent ([id number]) 07/21/2022 Pneumococcal Polysaccharide PPV23 (Pneumovax) 03/05/2019,07/18/2007 Season [...] Encounter - Isaac Parker PA-C - 06/12/2023 6:21 PM EDT Unfortunately we had know one to see the patient today and instead a community health social worker assistant wassent home to obtain blood pressure thing and stand. As noted previous note the patient does drop systolic points position to a standing position thus the orthostatic hypotension along with dizziness.. Please schedule the patient for a visit tomorrow for possible IV fluid. If the patient should become worse through evening I would recommend that he go the nearest ED * Telephone Encounter - Camila Thakur RN - 06/12/2023 4:03 PM EDT Per JOE Marlen: T 36.4 P 80 R 20 O 98 BP sit 122/44 Stand 104/50 Kept pulse ox on during ortho BP . Observed O2 to drop to 92-93 upon standing Camila BAUMAN, RN [facility] Intake Triage Coordinator [phone] * Telephone Encounter - Sarah Vitale RN [...] will see her around 3:30pm today. Camila BAUMAN RN [facility] Intake Triage Coordinator [phone] * Addendum Note - Isaac Parker PA-C [...] from the original note were not included. [facility] tipple tender Acute Call Date: 06/12/2023 Time: 12:39 PM Name: Keisha Linares : 1940 Caller: Keisha Relationship to pt- self Chief Complaint Patient presents with [facility]: Acute HPI: Keisha Linares is a 82 year old female that is calling [facility] Int[facility] to report that her BP has been low this morning on [facility] cuff and she feels weak today with head spinning.. Nursing Assessment: Patient's chief complaint for this call: Weakness/dizziness Pt states that she has a BP cuff from [facility]. 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 [...] instructions provided to patient. Camila BAUMAN, RN [facility] Intake Triage Coordinator [phone] documented in this encounter Plan of Treatment Upcoming Encounters Date Type Specialty Care Team Description 06/13/2023 Scheduled Telephone [facility] [place] [address] 06/14/2023 Scheduled Telephone [facility]ulic [facility]airer, [place] [address] [place] [address] 06/21/2023 Office Visit Cardiology Mi Neil PA-C [address] [place] [address] 07/04/2023 Scheduled Telephone [facility] Nurse Triage [address] [place] [address] 07/16/2023 Office Visit Gynecology Obstetrics Shane Rowland MD [address] [place] [address] 09/17/2023 Office Visit Dermatology Marycruz Almazan PA-C [address] [place] [address] [place] [address] 10/03/2023 Office Visit Sleep Disorders Sosa Freeman CRNP [address] [place] [address] 12/10/2023 Office Visit Family Medicine Rhys Humphrey MD [address] [place] [address] [place] [address] 03/18/2024 Nurse Only Ancillary [place], Nurse Annual [facility]ness [address] [place] [address] [place] [address] Scheduled Orders Name Type Priority Associated Diagnoses [...] D LEVEL ONCE IN A LIFETIME-USE SMARTSET# [id number] Completed 06/29/2020, 03/16/2015 COVID-19 Vaccine Completed 07/21/2022, [...] Documents on File Type Date Recorded Patient Associate Art Director Expl anation POLST 10/15/2019 3:17 PM POLST POLST 03/05/2019 POLST FORM Advance Directives and Living Will 01/27/2013 LIVING WILL Advance Directives and Living Will 01/27/2013 LIVING WILL Power of Entry Level Receptionist 01/27/2013 POWER OF A TTORNEY Power of Entry Level Receptionist 01/27/2013 POWER OF A TTORNEY Healthcare Agents on File Name Relationship Healthcare Agent Relationship Communication Cydney Benito Other - (no specific identity) Second Alternate Health Care Agent Anyi More Adult Child Health Care Roberth r of Entry Level Receptionist Care Teams Media Buyer Relationship Specialty Start Date End Date Rhys Humphrey MD [address] [place] [address] [place] [address] PCP - General Family Medicine 06/09/21 documented as of this encounter
--- OUTSIDE RECORDS SUMMARY | 2023-08-14 23:28 | External Medical Summary | Summary of Care ---
Author Name Unknown Organization [facility] Address [address] [place] [address] Phone [phone] Care Team Providers Care Pediatric Audiologist Name Role Phone Rhys Humphrey MD Primary Care Provide r Encounter Details Date Type Department Care Team Description 06/13/2023 Telephone [facility], [facility] [address] [place] [address] [facility], Nurse [facility] [address] [place] [address] Allergies Active Allergy Reactions Severity Noted Date [...] before bedtime. 50 Cap 0 01/18/2021 Active Jbfpaju-Ubljxllwu-Je nc 333-133-5 MG Oral Tablet Take by mouth. 0 Active Famotidine 20 MG Oral Tablet (Pepcid) Take 1 Tab by mouth 2 times a day as needed for Heartburn. 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),COPD, group D, by GOLD 2017 classification ([facility]) Inhale by mouth 1 Puff in the [...] by GOLD 2017 classification ([facility]) Inhale 3 mL via nebulizer every 6 [...] mRNA, LNP-s, No Pre serve, 2-Dose Series ([employer]) 07/11/2021,11/14/2020,10/24/2020 Covid-19, Mrna, Lnp-s, Pf, B ivalent, 30 Mcg, IM, 12 yrs and above ([employer]) 07/21/2022 Pneumococcal Conjugate Vacc, 13 Valent (Prevnar) 03/16/2015 Pneumococcal Conjugate Vacci ne, 20-valent ([id number]) 07/21/2022 Pneumococcal Polysaccharide PPV23 (Pneumovax) 03/05/2019,07/18/2007 Season [...] Telephone Encounter - Cammy Peres LPN - 06/13/2023 9:26 AM EDT PTs [facility]C scale and BP readings not displaying together. On review pt was registered for each device separately. UNDERGROUND DRILL OPERATOR submitted to [facility] asking if the registrations can be . documented in this encounter Plan of Treatment Upcoming Encounters Date Type Specialty Care Team Description 06/13/2023 Scheduled Telephone [facility] Counselor, Josephine Zhou [address] [place] [address] 06/13/2023 Home Visit [facility] Sarah Vitale RN [address] [place] [address] 06/14/2023 Scheduled Telephone [facility] Counselor, [facility] Maximiliano Field [address] [place] [address] 06/21/2023 Office Visit Cardiology Mi Neil PA-C [address] [place] [address] 07/04/2023 Scheduled Telephone [facility] Nurse Triage [address] [place] [address] 07/16/2023 Office Visit Gynecology Obstetrics Shane Rowland MD [address] [place] [address] 09/17/2023 Office Visit Dermatology Marycruz Almazan PA-C [address] [place] [address] [place] [address] 10/03/2023 Office Visit Sleep Disorders Sosa Freeman CRNP [address] [place] [address] 12/10/2023 Office Visit Family Medicine Rhys Humphrey MD [address] [place] [address] [place] [address] 03/18/2024 Nurse Only Ancillary Stanton, Nurse [facility] [address] [place] [address] [place] [address] Health Maintenance Due Date Last Done Comments [...] D LEVEL ONCE IN A LIFETIME-USE SMARTSET# [id number] Completed 06/29/2020, 03/16/2015 COVID-19 Vaccine Completed 07/21/2022, [...] Documents on File Type Date Recorded Patient Foundation Relations Manager Expl anation POLST 10/15/2019 3:17 PM POLST POLST 03/05/2019 POLST FORM Advance Directives and Living Will 01/27/2013 LIVING WILL Advance Directives and Living Will 01/27/2013 LIVING WILL Power of Door Captain 01/27/2013 POWER OF A TTORNEY Power of Door Captain 01/27/2013 POWER OF A TTORNEY Healthcare Agents on File Name Relationship Healthcare Agent Relationship Communication Cydney Benito Other - (no specific identity) Second Alternate Health Care Agent Anyi More Adult Child Health Care Roberth cooper of Door Captain Care Teams Pediatric Audiologist Relationship Specialty Start Date End Date Rhys Humphrey MD [address] [place] [address] [place] [address] PCP - General Family Medicine 06/09/21 documented as of this encounter
--- OUTSIDE RECORDS SUMMARY | 2023-08-14 23:28 | External Medical Summary | Summary of Care ---
Author Name Unknown Organization [facility] Address [address] [place] [address] Phone [phone] Care Team Providers Care Staff Radiation Therapist Name Role Phone Rhys Humphrey MD Primary Care Provide r Reason for Visit * Reason Onset Date Comments [facility]: Acute 06/12/2023 Encounter Details Date Type Department Care Team Description 06/12/2023 Telephone [facility], [facility] [address] [facility] [place] [address] Region, Nurse [address] [place] [address] [facility]: Acute Allergies Active Allergy [...] before bedtime. 50 Cap 0 01/18/2021 Active Muptlqd-Dozymbjgz-Sd nc 333-133-5 MG Oral Tablet Take by mouth. 0 Active Famotidine 20 MG Oral Tablet (Pepcid) Take 1 Tab by mouth 2 times a day as needed for Heartburn. 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),COPD, group D, by [...] group D, by GOLD 2017 classification ([facility]) Inhale 3 mL via nebulizer every [...] mRNA, LNP-s, No Pre serve, 2-Dose Series ([employer]) 07/11/2021,11/14/2020,10/24/2020 Covid-19, Mrna, Lnp-s, Pf, B ivalent, 30 Mcg, IM, 12 yrs and above ([employer]) 07/21/2022 Pneumococcal Conjugate Vacc, 13 Valent (Prevnar) 03/16/2015 Pneumococcal Conjugate Vacci ne, 20-valent ([id number]) 07/21/2022 Pneumococcal Polysaccharide PPV23 (Pneumovax) 03/05/2019,07/18/2007 Season [...] encounter Miscellaneous Notes * Telephone Encounter - Sarah Vitale RN [...] her around 3:30pm today. Camila BAUMAN, RN [facility] Intake Triage Coordinator [phone] * Addendum Note - Isaac Parker PA-C - 06/12/2023 1:26 PM EDTAddended by: ISAAC PARKER on: 06/12/2023 01:26 PM Modules accepted: Orders * Telephone Encounter - Isaac Parker PA-C - 06/12/2023 1:10 PM EDT [facility] Remote Medical Command Phone Encounter [...] note were not included. [facility] manager distribution Acute Call Date: 06/12/2023 Time: 12:39 PM Name: Keisha Linares : 1940 Caller: Keisha Relationship to pt- self Chief Complaint Patient presents with [facility]: Acute HPI: Keisha Linares is a 82 year old female that is calling [facility] Home Intake to report that her BP has been low this morning on [facility] cuff and she feels weak today with head spinning.. Nursing Assessment: Patient's chief complaint for this call: Weakness/dizziness Pt states that she has a BP cuff from [facility]. 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 [...] instructions provided to patient. Camila BAUMAN, RN [facility] Intake Triage Coordinator [phone] documented in this encounter Plan of Treatment Upcoming Encounters Date Type Specialty Care Team Description 06/12/2023 Home Visit Family Medicine Marlen Strange, [address] [place] [address] 06/13/2023 Scheduled Telephone [facility] Therapy Assistant, [facility] [address] [place] [address] 06/14/2023 Scheduled Telephone [facility] Therapy Assistant, [facility] [address] [place] [address] 06/21/2023 Office Visit Cardiology Mi Neil PA-C [address] [place] [address] 07/04/2023 Scheduled Telephone [facility] Nurse Triage [address] [place] [address] 07/16/2023 Office Visit Gynecology Obstetrics Shane Rowland MD [address] [place] [address] 09/17/2023 Office Visit Dermatology Marycruz Almazan PA-C [address] [place] [address] [place] [address] 10/03/2023 Office Visit Sleep Disorders Sosa Freeman CRNP [address] [place] [address] 12/10/2023 Office Visit Family Medicine Rhys Humphrey MD [address] [place] [address] [place] [address] 03/18/2024 Nurse Only Ancillary Mov[facility], Nurse Annual Wellness [address] [place] [address] [place] [address] Scheduled Orders Name Type Priority Associated Diagnoses [...] D LEVEL ONCE IN A LIFETIME-USE SMARTSET# [id number] Completed 06/29/2020, 03/16/2015 COVID-19 Vaccine Completed 07/21/2022, [...] Documents on File Type Date Recorded Patient Financial Management Consultant Expl anation POLST 10/15/2019 3:17 PM POLST POLST 03/05/2019 POLST FORM Advance Directives and Living Will 01/27/2013 LIVING WILL Advance Directives and Living Will 01/27/2013 LIVING WILL Power of Traffic Police Officer 01/27/2013 POWER OF A TTORNEY Power of Traffic Police Officer 01/27/2013 POWER OF A TTORNEY Healthcare Agents on File Name Relationship Healthcare Agent Relationship Communication Cydney Benito Other - (no specific identity) Second Alternate Health Care Agent Anyi More Adult Child Health Care Roberth r of Traffic Police Officer Care Teams Staff Radiation Therapist Relationship Specialty Start Date End Date Rhys Humphrey MD [address] [place] [address] [place] [address] PCP - General Family Medicine 06/09/21 documented as of this encounter
--- OUTSIDE RECORDS SUMMARY | 2023-08-14 23:29 | External Medical Summary | Summary of Care ---
Author Name Unknown Organization [facility] Address [address] [place] [address] Phone [phone] Care Team Providers Care Electric Motor Winders Assembler Name Role Phone Rhys Humphrey MD Primary Care Provide r Reason for Visit * Reason Onset Date Comments [facility]: Maintenance 06/12/2023 Encounter Details Date Type Department Care Team Description 06/12/2023 Telephone [facility], [place] [address] [facility] [place] [address] Region, Nurse [place] [address] [address] [facility] [place] [address] [facility]: Maintenance Allergies Active Allergy [...] before bedtime. 50 Cap 0 01/18/2021 Active Tnxhbgh-Svppiaxit-Ry nc 333-133-5 MG Oral Tablet Take by mouth. 0 Active Famotidine 20 MG Oral Tablet (Pepcid) Take 1 Tab by mouth 2 times a day as needed for Heartburn. 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 [facility] Telephonic Nurse Follow-Up Call [facility] Subprogram: Focused Care Management (3-9 months) [...] acute episode Subjective: Call to patient regarding [facility] blood pressure trigger. Left message on mobile number for return callto [facility] Future Visits Scheduled: Future Appointments-next 60 days Date/Time Provider Specialty Dept Phone 06/21/2023 3:00 PM (Arrive by 2:45 PM) Mi Neil PA-C Cardiology [phone] 07/04/2023 9:30 AM [facility] Nurse Triage [facility] at [facility] [phone] 07/16/2023 2:00 PM (Arrive by 1:45 PM) Shane Rowland MD Gynecology Obstetrics [phone] 09/17/2023 9:40 AM (Arrive by 9:25 AM) Marycruz Almazan PA-C Dermatology [phone] 09/20/2023 8:30 AM (Arrive by 8:15 AM) PITER Gordillo Sleep Disorders [phone] 12/10/2023 9:20 AM (Arrive by 9:05 AM) Rhys Humphrey MD Family Medicine [phone] 03/18/2024 9:00 AM Nurse Annual [facility] Ancillary [phone] Mariel Welch LPN documented in this encounter Plan of Treatment Upcoming Encounters Date Type Specialty Care Team Description 06/21/2023 Office Visit Cardiology Mi Neil PA-C [address] [place] [address] 07/04/2023 Scheduled Telephone [facility] Nurse Triage [address] [place] [address] 07/16/2023 Office Visit Gynecology Obstetrics Shane Rowland MD [address] [place] [address] 09/17/2023 Office Visit Dermatology Marycruz Almazan PA-C [address] [place] [address] [place] [address] 10/03/2023 Office Visit Sleep Disorders Sosa Freeman CRNP [address] [place] [address] 12/10/2023 Office Visit Family Medicine Rhys Humphrey MD [address] [place] [address] [place] [address] 03/18/2024 Nurse Only Ancillary Stanton Nurse Annual Wellness [address] [place] [address] [place] [address] Health Maintenance Due Date Last Done Comments [...] D LEVEL ONCE IN A LIFETIME-USE SMARTSET# [id number] Completed 06/29/2020, 03/16/2015 COVID-19 Vaccine Completed 07/21/2022, [...] Documents on File Type Date Recorded Patient Wet End Helper Expl anation POLST 10/15/2019 3:17 PM POLST POLST 03/05/2019 POLST FORM Advance Directives and Living Will 01/27/2013 LIVING WILL Advance Directives and Living Will 01/27/2013 LIVING WILL Power of Supervisor [place] 01/27/2013 POWER OF A TTORNEY Power of Supervisor [place] 01/27/2013 POWER OF A TTORNEY Healthcare Agents on File Name Relationship Healthcare Agent Relationship Communication Cydney Benito Other - (no specific identity) Second Alternate Health Care Agent Anyi More Adult Child Health Care Roberth cooper of Supervisor [place] Care Teams Electric Motor Winders Assembler Relationship Specialty Start Date End Date Rhys Humphrey MD [address] [place] [address] [place] [address] PCP - General Family Medicine 06/09/21 documented as of this encounter
--- OUTSIDE RECORDS SUMMARY | 2023-08-14 23:29 | External Medical Summary | Summary of Care ---
Author Name Unknown Organization [facility] Address [address] [place] [address] Phone [phone] Care Team Providers Care Greenstone Polisher Operator Name Role Phone Rhys Humphrey MD Primary Care Provide r Reason for Visit * Reason Onset Date Comments [facility]: Acute 06/12/2023 Encounter Details Date Type Department Care Team Description 06/12/2023 Telephone [facility], [facility] Region [address] [facility] [place] [address] Region, Nurse [address] [place] [address] [facility]: Acute Allergies Active Allergy [...] before bedtime. 50 Cap 0 01/18/2021 Active Givfjnx-Kelcalmhp-Ee nc 333-133-5 MG Oral Tablet Take by mouth. 0 Active Famotidine 20 MG Oral Tablet (Pepcid) Take 1 Tab by mouth 2 times a day as needed for Heartburn. 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 [...] [facility] Intake Triage Coordinator [phone] documented in this encounter Plan of Treatment Upcoming Encounters Date Type Specialty Care Team Description 06/13/2023 Scheduled Telephone [facility] [place] [employer] Machine Tender, [facility] [address] [place] [address] 06/14/2023 Scheduled Telephone [facility] [place] [employer] Machine Tender, [facility] [address] [place] [address] 06/21/2023 Office Visit Cardiology Mi Neil PA-C [address] [place] [address] 07/04/2023 Scheduled Telephone [facility] Nurse Triage [address] [place] [address] 07/16/2023 Office Visit Gynecology Obstetrics Shane Rowland MD [address] [place] [address] 09/17/2023 Office Visit Dermatology Marycruz Almazan PA-C [address] [place] [address] [place] [address] 10/03/2023 Office Visit Sleep Disorders Sosa Freeman CRNP [address] [place] [address] 12/10/2023 Office Visit Family Medicine Rhys Humphrey MD [address] [place] [address] [place] [address] 03/18/2024 Nurse Only Ancillary [place], Nurse Annual Wellness [address] [place] [address] [place] [address] Health Maintenance Due Date Last Done Comments [...] D LEVEL ONCE IN A LIFETIME-USE SMARTSET# [id number] Completed 06/29/2020, 03/16/2015 COVID-19 Vaccine Completed 07/21/2022, [...] Documents on File Type Date Recorded Patient Monogram Machine Operator Expl anation POLST 10/15/2019 3:17 PM POLST POLST 03/05/2019 POLST FORM Advance Directives and Living Will 01/27/2013 LIVING WILL Advance Directives and Living Will 01/27/2013 LIVING WILL Power of Lead Press Operator 01/27/2013 POWER OF A TTORNEY Power of Lead Press Operator 01/27/2013 POWER OF A TTORNEY Healthcare Agents on File Name Relationship Healthcare Agent Relationship Communication Cydney Benito Other - (no specific identity) Second Alternate Health Care Agent Anyi More Adult Child Health Care Roberth r of Lead Press Operator Care Teams Greenstone Polisher Operator Relationship Specialty Start Date End Date Rhys Humphrey MD [address] [place] [address] [place] [address] PCP - General Family Medicine 06/09/21 documented as of this encounter
--- OUTSIDE RECORDS SUMMARY | 2023-08-14 23:29 | External Medical Summary | Summary of Care ---
Author Name Unknown Organization [facility] Address [address] [place] [address] Phone [phone] Care Team Providers Care Website Designer Name Role Phone Rhys Humphrey MD Primary Care Provide r Reason for Visit * Reason Comments eRx-Medication Refill Encounter Details Date Type Department Care Team Description 06/08/2023 Refill Cardiology, [facility] [address] [place] [address] Mi Neil, CECI [address] [place] [address] Chronic diastolic congestive heart failure (HCC) Allergies Active Allergy Reactions Severity Noted Date Comments Adhesive Tape Other (Please comment),Hives High 09/29/2008 Caused welts Dextromethorphan-Gua ifenesin Neuro complications (Please comment) Medium 12/23/2021 Feels lightheaded/"foggy" documented as of this encounter (statuses as of 06/11/2023) Medications Medication Sig Dispensed Refills Start Date [...] Each 0 0 Active Nebulizers (NEBULIZER COMPRESSOR) MISCIndications: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 Use as directed. 1 Each 1 0 Active Iron 325 (65 Fe) MG Oral Tablet Take by mouth. 0 Active Cranberry 500 MG Oral Capsule Take 1 Capsule by mouth in the morning and 1 Capsule before bedtime. 50 Cap 0 1 Active Lgpswdu-Oeszydbwg-X inc 333-133-5 MG Oral Tablet Take by mouth. 0 Active Famotidine 20 MG Oral Tablet (Pepcid) Take 1 Tab by mouth 2 times a day as needed for Heartburn. 180 Tab 3 1 Active Additional Information Patient taking differently:20 mg [...] for Dizziness. 30 Tablet 0 3 Active Gabapentin 300 MG Oral Capsule (Neurontin)Indicati ons:Peripheral polyneuropathy,Pain in both lower extremities Take 3 Capsules by mouth every night at bedtime. 90 Capsule 3 3 Active Ipratropium-Albuter ol 0.5-2.5 (3) MG/3ML Inhalation Solution (Duoneb)Indications :COPD, group D, by GOLD 2017 classification ([facility]) Inhale 3 mL via nebulizer every 6 hours as needed for Shortness of Breath or Wheezing. 360 mL 3 3 Active guaiFENesin ER 600 MG Oral Tablet [...] mouth daily. 90 Tablet 1 3 Active Losartan Potassium 50 MG Oral Tablet (Cozaar)Indications :HTN, goal below 140/90 Take 2 Tablets by mouth daily. 180 Tablet 1 3 Active Diclofenac Sodium 1 [...] for swelling 120 Tablet 3 3 Active Furosemide 40 MG Oral Tablet (Lasix)Indications: fluid Take by mouth 1 Tablet in the morning. May take an additional tablet as needed for weight gain or shortness of breath.. 120 Tablet 3 2 06/11/20 23 Discontinued Ramelteon 8 MG Oral Tablet (Rozerem)Indication s:Insomnia, unspecified type TAKE ONE TABLET BY MOUTH AT BEDTIME 30 Tablet 3 3 06/11/20 23 Discontinued documented as of this encounter (statuses as of 06/11/2023) Active Problems Problem Noted Date Acute serous [...] as of this encounter (statuses as of 06/11/2023) Resolved Problems Problem Noted Date Resolved Date [...] lung diseas e 06/01/2011 03/12/2019 Overview: PFT: [id number] Carotid stenosis, symptomatic w/o infarct 201006/01/2011 Aortic [...] as of this encounter (statuses as of 06/11/2023) Immunizations Name Administration Dates Next Due COVID-19 mRNA, LNP-s, No Pre serve, 2-Dose Series ([employer]) 07/11/2021,11/14/2020,10/24/2020 Covid-19, Mrna, Lnp-s, Pf, B ivalent, 30 Mcg, IM, 12 yrs and above ([employer]) 07/21/2022 Pneumococcal Conjugate Vacc, 13 Valent (Prevnar) 03/16/2015 Pneumococcal Conjugate Vacci ne, 20-valent ([id number]) 07/21/2022 Pneumococcal Polysaccharide PPV23 (Pneumovax) 03/05/2019,07/18/2007 Season [...] encounter Miscellaneous Notes * Telephone Encounter - Hunter De Santiago DO - 06/11/2023 2:52 PM EDTSigned Prescriptions: Disp Refills Furosemide 40 MG Oral Tablet (Lasix) 120 Ta*3 Sig: One tablet daily with an extra tablet as needed for swelling Authorizing Provider: HUNTER DE SANTIAGO * Telephone Encounter - CHIRAG Cox - 06/11/2023 8:26 AM EDTPending Prescriptions: Disp Refills Furosemide 40 MG Oral Tablet [Pharmacy Med*120 Ta*3 Sig: TAKE ONE TABLET BY MOUTH IN THE MORNING (MAY TAKE ADDITIONAL TABLET PRN FOR WEIGHT GAIN OR SOB) * Telephone Encounter - CHIRAG Cox - 06/11/2023 8:26 AM EDT Did you pend patient's preferred pharmacy and medication before forwarding?yes Pharmacy: [facility], [address] [place] Pending Prescriptions: Disp Refills Furosemide 40 MG Oral Tablet (Lasix) [Pha*120 Ta*3 Sig: TAKE ONE TABLET BY MOUTH IN THE MORNING (MAY TAKE ADDITIONAL TABLET PRN FOR WEIGHT GAIN OR SOB) Last Visit: 10/28/2018 (in office), Visit date not found (telemedicine) Next Visit: Visit date not found If no future appointments scheduled, and last appointment is greater than a year ago, please schedule patient for a follow-up appointment Last date the medication was ordered: 05-18-2022 Is this request for a controlled substance?No Urine Drug Screen:No results found. However, due to the size of the patient record, not all encounters were searched. Please check Results Review for a complete set of results. Patient Phone Numbers Labs: Lab Results Component Value Date/Time CREAT 0.8 06/07/2023 08:58 AM CREAT 1.0 06/29/2020 12:24 PM POTASSIUM 3.6 06/07/2023 08:58 AM POTASSIUM 4.1 06/29/2020 12:24 PM TSH 2.78 06/07/2023 08:58 AM TSH 3.53 08/08/2012 10:00 AM LDLCALC 63 06/07/2023 08:58 AM LDLCALC 80 03/03/2019 09:10 AM LDLDIRECT NOT APPLICABLE 03/03/2019 09:10 AM ALT 23 09/26/2022 04:06 PM ALT 24 06/29/2020 12:24 PM HGBA1C 5.3 07/07/2021 11:34 AM HGBA1C 6.3 (H) 06/29/2020 12:24 PM documented in this encounter Plan of Treatment Upcoming Encounters Date Type Specialty Care Team Description 06/21/2023 Office Visit Cardiology Mi Neil PA-C [address] [place] [address] 07/04/2023 Scheduled Telephone [facility] Nurse Triage [address] [place] [address] 07/16/2023 Office Visit Gynecology Obstetrics Shane Rowland MD [address] [place] [address] 09/17/2023 Office Visit Dermatology Marycruz Almazan PA-C [address] [place] [address] [place] [address] 09/20/2023 Office Visit Sleep Disorders Sosa Freeman CRNP [address] [place] [address] 12/10/2023 Office Visit Family Medicine Rhys Humphrey MD [address] [place] [address] [place] [address] 03/18/2024 Nurse Only Ancillary Nurse [place] Annual Wellness [address] [place] [address] [place] [address] Health Maintenance Due Date Last Done Comments [...] D LEVEL ONCE IN A LIFETIME-USE SMARTSET# [id number] Completed 06/29/2020, 03/16/2015 COVID-19 Vaccine Completed 07/21/2022, [...] Diagnoses Diagnosis Chronic diastolic congestive heart failure (HCC) Chronic diastolic heart failure documented in this encounter Advance Directives Documents on File Type Date Recorded Patient Asw Specialist Expl anation POLST 10/15/2019 3:17 PM POLST POLST 03/05/2019 POLST FORM Advance Directives and Living Will 01/27/2013 LIVING WILL Advance Directives and Living Will 01/27/2013 LIVING WILL Power of [place] Counselor 01/27/2013 POWER OF A TTORNEY Power of [place] Counselor 01/27/2013 POWER OF A TTORNEY Healthcare Agents on File Name Relationship Healthcare Agent Relationship Communication Cydney Benito Other - (no specific identity) Second Alternate Health Care Agent Anyi More Adult Child Health Care Roberth r of Summer Camp Counselor Care Teams Website Designer Relationship Specialty Start Date End Date Rhys Humphrey MD [address] [place] [address] [place] [address] PCP - General Family Medicine 06/09/21 documented as of this encounter
--- OUTSIDE RECORDS SUMMARY | 2023-08-14 23:29 | External Medical Summary | Summary of Care ---
Author Name Unknown Organization [facility] Address [address] [place] [address] Phone [phone] Care Team Providers Care Clam Digger Name Role Phone Rhys Humphrey MD Primary Care Provide r Reason for Visit * Reason Onset Date Comments [facility]: Maintenance 06/12/2023 Encounter Details Date Type Department Care Team Description 06/12/2023 Telephone [facility], [place] [address] [facility] [place] [address] Region, Nurse [place] [address] [address] [facility] [place] [address] [facility]: Maintenance Allergies Active Allergy [...] before bedtime. 50 Cap 0 01/18/2021 Active Lquejkc-Vfweyqawp-Wt nc 333-133-5 MG Oral Tablet Take by mouth. 0 Active Famotidine 20 MG Oral Tablet (Pepcid) Take 1 Tab by mouth 2 times a day as needed for Heartburn. 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),COPD, group D, by [...] COPD, group D, by GOLD 2017 classification ([facility]) Inhale 3 mL via nebulizer every [...] mRNA, LNP-s, No Pre serve, 2-Dose Series ([employer]) 07/11/2021,11/14/2020,10/24/2020 Covid-19, Mrna, Lnp-s, Pf, B ivalent, 30 Mcg, IM, 12 yrs and above ([employer]) 07/21/2022 Pneumococcal Conjugate Vacc, 13 Valent (Prevnar) 03/16/2015 Pneumococcal Conjugate Vacci ne, 20-valent ([id number]) 07/21/2022 Pneumococcal Polysaccharide PPV23 (Pneumovax) 03/05/2019,07/18/2007 Season [...] [facility] Telephonic Nurse Follow-Up Call [facility] Subprogram: Focused Care Management (3-9 months) [...] message on mobile number for return callto [facility] Future Visits Scheduled: Future Appointments-next 60 days Date/Time Provider Specialty Dept Phone 06/21/2023 3:00 PM (Arrive by 2:45 PM) Mi Neil PA-C Cardiology [phone] 07/04/2023 9:30 AM [facility] Nurse Triage [facility] [phone] 07/16/2023 2:00 PM (Arrive by 1:45 PM) Shane Rowland MD Gynecology Obstetrics [phone] 09/17/2023 9:40 AM (Arrive by 9:25 AM) Marycruz Almazan PA-C Dermatology [phone] 09/20/2023 8:30 AM (Arrive by 8:15 AM) PITER Gordillo Sleep Disorders [phone] 12/10/2023 9:20 AM (Arrive by 9:05 AM) Rhys Humphrey MD Family Medicine [phone] 03/18/2024 9:00 AM Nurse [facility] Ancillary [phone] Mariel Welch LPN documented in this encounter Plan of Treatment Upcoming Encounters Date Type Specialty Care Team Description 06/21/2023 Office Visit Cardiology Mi Neil PA-C [address] [place] [place] [address] 07/04/2023 Scheduled Telephone [facility] Nurse Triage [address] [place] [address] 07/16/2023 Office Visit Gynecology Obstetrics Shane Rowland MD [address] [place] [place] [address] 09/17/2023 Office Visit Dermatology Marycruz Almazan PA-C [address] [place] [address] [place] [address] 10/03/2023 Office Visit Sleep Disorders Sosa Freeman CRNP [address] [place] [place] [address] 12/10/2023 Office Visit Family Medicine Rhys Humphrey MD [address] [place] [address] [place] [address] 03/18/2024 Nurse Only Ancillary [place] Nurse Annual Wellness [address] [place] [address] [place] [address] Health Maintenance Due Date Last Done Comments [...] D LEVEL ONCE IN A LIFETIME-USE SMARTSET# [id number] Completed 06/29/2020, 03/16/2015 COVID-19 Vaccine Completed 07/21/2022, [...] Documents on File Type Date Recorded Patient Pull Tab Dealer Expl anation POLST 10/15/2019 3:17 PM POLST POLST 03/05/2019 POLST FORM Advance Directives and Living Will 01/27/2013 LIVING WILL Advance Directives and Living Will 01/27/2013 LIVING WILL Power of Lighting Adviser 01/27/2013 POWER OF A TTORNEY Power of Lighting Adviser 01/27/2013 POWER OF A TTORNEY Healthcare Agents on File Name Relationship Healthcare Agent Relationship Communication Cydney Benito Other - (no specific identity) Second Alternate Health Care Agent Anyi More Adult Child Health Care Roberth cooper of Lighting Adviser Care Teams Clam Digger Relationship Specialty Start Date End Date Rhys Humphrey MD [address] [place] [address] [place] [address] PCP - General Family Medicine 06/09/21 documented as of this encounter
--- OUTSIDE RECORDS SUMMARY | 2023-08-14 23:29 | External Medical Summary | Summary of Care ---
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 Use as directed. 1 Each 1 0 Active Iron 325 (65 Fe) MG Oral Tablet Take by mouth. 0 Active Cranberry 500 MG Oral Capsule Take 1 Capsule by mouth in the morning and 1 Capsule before bedtime. 50 Cap 0 1 Active Zyxkons-Welivboiq-Y inc 333-133-5 MG Oral Tablet Take by mouth. 0 Active Famotidine 20 MG Oral Tablet (Pepcid) Take 1 Tab by mouth 2 times a day as needed for Heartburn. 180 Tab 3 1 Active Additional Information Patient taking differently:20 mg Oral BID PRN, Heartburn,Indications: heartburn, Reported on 10/30/2022 Furosemide 40 MG Oral Tablet (Lasix)Indications: fluid Take by mouth 1 Tablet in the morning. May take an additional tablet as needed for weight gain or shortness of breath.. 120 Tablet 3 2 Active Anoro Ellipta 62.5-25 MCG/INH Inhalation Aerosol [...] Base) MCG/ACT Inhalation Aerosol SolutionIndications :COPD, moderate ([facility]) Inhale 2 Puffs by mouth [...] :COPD, group D, by GOLD 2017 classification ([facility] [...] for Cough. 30 Capsule 1 3 Active Ramelteon 8 MG Oral Tablet (Rozerem)Indication s:Insomnia, unspecified type TAKE ONE TABLET AT BEDTIME 30 Tablet 5 3 Active Ramelteon 8 MG Oral Tablet [...] mRNA, LNP-s, No Pre serve, 2-Dose Series (LibriLoop) 07/11/2021,11/14/2020,10/24/2020 Covid-19, Mrna, Lnp-s, Pf, B ivalent, 30 Mcg, IM, 12 yrs and above (LibriLoop) 07/21/2022 Pneumococcal Conjugate Vacc, 13 Valent (Prevnar) 03/16/2015 Pneumococcal Conjugate Vacci ne, 20-valent ([id number]) 07/21/2022 Pneumococcal Polysaccharide PPV23 (Pneumovax) 03/05/2019,07/18/2007 Season [...] encounter Miscellaneous Notes * Telephone Encounter - Gregory Martin MD - 06/11/2023 1:18 PM EDT Signed Prescriptions: Disp Refills Ramelteon 8 MG Oral Tablet (Rozerem) 30 Tab*5 Sig: TAKE ONE TABLET AT BEDTIME Authorizing Provider: GREGORY MARTIN * Telephone Encounter - Heather Pagan [facility] - 06/11/2023 9:08 AM EDTPending Prescriptions: Disp Refills Ramelteon 8 MG Oral Tablet (Rozerem) 30 Tab*5 Sig: TAKE ONE TABLET AT BEDTIME Electronically signed by Heather Pagan [facility] at 06/11/2023 9:08 AM EDT * Telephone Encounter - Heather Pagan [facility] - 06/11/2023 9:08 AM EDT [facility] is currently not authorized to approve refills for the pended medication(s) per refill protocol. Please approve if appropriate. Thanks, Heather Pagan [facility] Clinical Pharmacist [facility] Pharmacy Services ([facility]PS) (Formerly Telepharmacy) [phone] Electronically signed by Heather Pagan [facility] at 06/11/2023 9:08 AM EDT documented in this encounter Plan of Treatment Upcoming Encounters Date Type Specialty Care Team Description 06/21/2023 Office Visit Cardiology Mi Neil PA-C [address] [place] [address] 07/04/2023 Scheduled Telephone [facility] Nurse Triage [address] [place] [place] [address] 07/16/2023 Office Visit Gynecology Obstetrics Shane Rowland MD [address] [place] [place] [address] 09/17/2023 Office Visit Dermatology Marycruz Almazan PA-C [address] [place] [address] [place] [address] 09/20/2023 Office Visit Sleep Disorders Sosa Freeman CRNP [address] [place] [address] 12/10/2023 Office Visit Family Medicine Rhys Humphrey MD [address] [place] [address] [place] [address] 03/18/2024 Nurse Only Ancillary [place], Nurse Annual Wellness [address] [place] [address] [place] [address] Health Maintenance Due Date Last Done Comments [...] D LEVEL ONCE IN A LIFETIME-USE SMARTSET# [id number] Completed 06/29/2020, 03/16/2015 COVID-19 Vaccine Completed 07/21/2022, [...] as of this encounter Visit Diagnoses Diagnosis Insomnia, unspecified type documented in this encounter Advance Directives Documents on File Type Date Recorded Patient Produce Team Lead Expl anation POLST 10/15/2019 3:17 PM POLST POLST 03/05/2019 POLST FORM Advance Directives and Living Will 01/27/2013 LIVING WILL Advance Directives and Living Will 01/27/2013 LIVING WILL Power of Resource Protection Specialist 01/27/2013 POWER OF A TTORNEY Power of Resource Protection Specialist 01/27/2013 POWER OF A TTORNEY Healthcare Agents on File Name Relationship Healthcare Agent Relationship Communication Cydney Benito Other - (no specific identity) Second Alternate Health Care Agent Anyi More Adult Child Health Care Roberth r of Resource Protection Specialist Care Teams Credit Processor Relationship Specialty Start Date End Date Rhys Humphrey MD [address] [place] [address] [place] [address] PCP - General Family Medicine 06/09/21 documented as of this encounter
--- OUTSIDE RECORDS SUMMARY | 2023-08-14 23:30 | External Medical Summary ---
Author Name Unknown Address Unknown Organization K01:[facility] [place] [address] [facility] [address] Laboratory Report Ordering Provider Test Date Status CARLOS LEVIN 06/07/2023 08:58:39 Beatriz l Observation Date Value Abnormality Reference (Units ) Status Ferritin 06/07/2023 08:58:39 72 13-150 (ng /mL) Final Postmenopausal women have hi gher ferritin levels than pre-menopausal women. The above reference interval is based on pre-menopausal women. Performing Location [facility] [place] [address] [place] [address]
--- OUTSIDE RECORDS SUMMARY | 2023-08-14 23:30 | External Medical Summary | Summary of Care ---
Author Name Unknown Organization [facility] Address [address] [place] [address] Phone [phone] Care Team Providers Care Recreation Facility Manager Name Role Phone Rhys Humphrey MD Primary Care Provide r Encounter Details Date Type Department Care Team Description 05/28/2023 Orders Only Outcomes Research Department [address] [place], [place] [id number] Marla Downey CHRA MyCM Squared [employer] Research Other*[id number] Allergies Active Allergy Reactions Severity Noted Date Comments Adhesive Tape Other (Please comment),Hives High 09/29/2008 Caused welts Dextromethorphan-Gua ifenesin Neuro complications (Please comment) Medium 12/23/2021 Feels lightheaded/"foggy" documented as of this encounter (statuses as of 05/28/2023) Medications Medication Sig Dispensed Refills Start Date [...] before bedtime. 50 Cap 0 01/18/2021 Active Olgmedm-Manhbgqzw-Id nc 333-133-5 MG Oral Tablet Take by mouth. 0 Active Famotidine 20 MG Oral Tablet (Pepcid) Take 1 Tab by mouth 2 times a day as needed for Heartburn. 180 Tab 3 05/23/2021 Active Additional Information Patient taking differently:20 mg Oral BID PRN, Heartburn,Indications: heartburn, Reported on 10/30/2022 Furosemide 40 MG Oral Tablet (Lasix)Indications:f luid Take by mouth 1 Tablet in the morning. May take an additional tablet as needed for weight gain or shortness of breath.. 120 Tablet 3 05/18/2022 Active Anoro Ellipta 62.5-25 MCG/INH Inhalation Aerosol Powder Breath Activated (umeclidinium-vilant ed)Indications:APIARIST D, moderate (HCC),COPD, group D, by GOLD 2017 classification (HCC) Inhale by mouth 1 Puff in the morning. 30 Each 11 08/02/2022 Active Fluticasone Furoate 100 MCG/ACT Inhalation Aerosol Powder Breath Activated (ARNUITY ellipta) Inhale by mouth 1 Puff in the morning. In addition to anoro. 30 Each 11 08/02/2022 Active Benzonatate 100 MG Oral Capsule (Tessalon Perles) Take by mouth 1 Capsule as needed in the morning AND 1 Capsule as needed at noon AND 1 Capsule as needed in the evening for Cough. 30 Capsule 1 08/05/2022 Active Aspirin 81 MG Oral Tablet Chewable [...] Base) MCG/ACT Inhalation Aerosol SolutionIndications: COPD, moderate ([facility]) Inhale 2 Puffs by mouth every 4 [...] EVERY DAY 90 Tablet 3 01/25/2023 Active Premarin 0.625 MG/GM Vaginal Cream (Estrogens Conjugated)Indicatio ns:Vaginal irritation Administer 0.5 g into the vagina at bedtime on Sunday and Sunday only. 42.5 g 1 02/02/2023 Active Ramelteon 8 MG Oral Tablet (Rozerem)Indications :Insomnia, unspecified type TAKE ONE TABLET BY MOUTH AT BEDTIME 30 Tablet 3 02/21/2023 Active Meclizine HCl 12.5 MG Oral Tablet (Antivert)Indication s:Vertigo Take 1 Tablet by mouth 3 times a day as needed for Dizziness. 30 Tablet 0 03/16/2023 Active Diclofenac Sodium 1 % External Gel (Voltaren)Indication s:pain Apply 2 g topically to affected area daily as needed for Pain. Apply to L shoulder 350 g 2 03/16/2023 Active Gabapentin 300 MG Oral Capsule (Neurontin)Indicatio ns:Peripheral polyneuropathy,Pain in both lower extremities Take 3 Capsules by mouth every night at bedtime. 90 Capsule 3 03/16/2023 Active Ipratropium-Albutero l 0.5-2.5 (3) MG/3ML Inhalation Solution (Duoneb)Indications: COPD, group D, by GOLD 2017 classification ([facility]) Inhale 3 mL via nebulizer every 6 [...] mouth daily. 180 Tablet 1 04/11/2023 Active documented as of this encounter (statuses as of 05/28/2023) Active Problems Problem Noted Date Acute serous [...] as of this encounter (statuses as of 05/28/2023) Resolved Problems Problem Noted Date Resolved Date [...] as of this encounter (statuses as of 05/28/2023) Immunizations Name Administration Dates Next Due COVID-19 mRNA, LNP-s, No Pre serve, 2-Dose Series ([employer]) 07/11/2021,11/14/2020,10/24/2020 Covid-19, Mrna, Lnp-s, Pf, B ivalent, 30 Mcg, IM, 12 yrs and above (Pfizer) 07/21/2022 Pneumococcal Conjugate Vacc, 13 Valent (Prevnar) 03/16/2015 Pneumococcal Conjugate Vacci ne, 20-valent ([id number]) 07/21/2022 Pneumococcal Polysaccharide PPV23 (Pneumovax) 03/05/2019,07/18/2007 Season [...] Encounters Date Type Specialty Care Team Description 06/07/2023 Office Visit Family Medicine Rhys Humphrey MD [address] [place] [address] [place] [address] 06/13/2023 [facility] Amy Zaragoza RN [address] [place] [place] [address] 06/21/2023 Office Visit Cardiology Mi Neil PA-C [address] [place] [place] [address] 07/04/2023 Scheduled Telephone [facility] Nurse Triage [address] [place] [address] 07/16/2023 Office Visit Gynecology Obstetrics Shane Rowland MD [address] [place] [address] 09/17/2023 Office Visit Dermatology Marycruz Almazan PA-C [address] [place] [address] [place] [address] 03/18/2024 Nurse Only Ancillary [place], Nurse Annual Wellness [address] [place] [address] [place] [address] Scheduled Orders Name Type Priority Associated Diagnoses Orde r Schedule MYCODE SUBSEQUENT ADULT Lab Routine MyCode Research Other*[id number] Every 6 Months for 2 Occurrences starting 05/28/2023 until 06/16/2024 Health Maintenance Due Date Last Done Comments Alpha-1 Antitrypsin 1958 DXA Scan 06/11/2020 06/11/2018, 03/02, 02/16/2012, Additional history exists *BISPHONATE OR OTHER ACCEPTABLE MEDICATION NEEDED FOR OSTEOPOROSIS (REFER TO SMARTSET #1146) 01/23/2021 Influenza Vaccine (FLU shot) (#1) 2023 06/16/2022, 06/08/2021, 06/16/2020, Additional history exists GFR 09/26/2023 09/26/2022, 04/01, 03/22/2022, Additional history exists Depression Screening, Annual for Pts 12 and Over 03/16/2024 03/16/2023 O2 ASSESSMENT COMPLETED IN PAST YEAR FOR COPD 04/13/2024 04/13/2023 Albumin/Creatinine Ratio 04/28/2025 04/28/2022 DTaP,Tdap,and Td Vaccines (3 - Td or Tdap) 09/17/2029 09/17/2019, 08/10/2011, 10/01/2001 Zoster Vaccines Completed 04/25/2020, 08/31, 07/22/2012 VITAMIN D LEVEL ONCE IN A LIFETIME-USE SMARTSET# [id number] Completed 06/29/2020, 03/16/2015 COVID-19 Vaccine Completed 07/21/2022, 10/2020, 07/11/2021, Additional history exists Pneumococcal Vaccine: 65+ Years Completed 07/21/2022, 03/05/2019, 03/16/2015, Additional history exists GARDASIL-HPV IMMUNIZATION SERIES Aged [...] this encounter Visit Diagnoses Diagnosis MyCode Research Other*[id number] documented in this encounter Advance Directives Documents on File Type Date Recorded 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 Collector 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 Expl anation POLST 10/15/2019 3:17 PM POLST POLST 03/05/2019 POLST FORM Advance Directives and Living Will 01/27/2013 LIVING WILL Advance Directives and Living Will 01/27/2013 LIVING WILL Power of Submarine Element Coordinator 01/27/2013 POWER OF A TTORNEY Power of Submarine Element Coordinator 01/27/2013 POWER OF A TTORNEY Healthcare Agents on File Name Relationship Healthcare Agent Relationship Communication Cydney Benito Other - (no specific identity) Second Alternate Health Care Agent Anyi More Adult Child Health Care Roberth r of Submarine Element Coordinator Care Teams Recreation Facility Manager Relationship Specialty Start Date End Date Rhys Humphrey MD [address] [place] [address] [place] [address] PCP - General Family Medicine 06/09/21 documented as of this encounter
--- OUTSIDE RECORDS SUMMARY | 2023-08-14 23:30 | External Medical Summary | Summary of Care ---
Author Name Unknown Organization [facility] Address [address] [place] [address] Phone [phone] Care Team Providers Care Reading Recovery Teacher Name Role Phone Rhys Humphrey MD Primary Care Provide r Reason for Visit * Reason Comments Outpatient Testing Encounter Details Date Type Department Care Team Description 06/07/2023 Laboratory Laboratory [address] [place] [address] [place] [id number] Arrived Allergies Active Allergy Reactions Severity Noted Date Comments Adhesive Tape Other (Please comment),Hives High 09/29/2008 Caused welts Dextromethorphan-Gua ifenesin Neuro complications (Please comment) Medium 12/23/2021 Feels lightheaded/"foggy" documented as of this encounter (statuses as of 06/07/2023) Medications Medication Sig Dispensed Refills Start Date [...] before bedtime. 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 30 Capsule 1 06/07/2023 Active documented as of this encounter (statuses as of 06/07/2023) Active Problems Problem Noted Date Acute serous [...] aspirin, atorvastatin History of left hip replacement 09/24/20 18 Hx of nonmelanoma skin cancer 08/21/2017 [...] as of this encounter (statuses as of 06/07/2023) Resolved Problems Problem Noted Date Resolved Date [...] as of this encounter (statuses as of 06/07/2023) Immunizations Name Administration Dates Next Due COVID-19 mRNA, LNP-s, No Pre serve, 2-Dose Series ([employer]) 07/11/2021,11/14/2020,10/24/2020 Covid-19, Mrna, Lnp-s, Pf, B ivalent, 30 Mcg, IM, 12 yrs and above ([employer]) 07/21/2022 Pneumococcal Conjugate Vacc, 13 Valent (Prevnar) 03/16/2015 Pneumococcal Conjugate Vacci ne, 20-valent ([id number]) 07/21/2022 Pneumococcal Polysaccharide PPV23 (Pneumovax) 03/05/2019,07/18/2007 Season [...] Description 06/13/2023 [facility] Visit [facility] Amy Zaragoza RN [address] [place] [address] 06/21/2023 Office Visit Cardiology Mi Neil PA-C [address] [place] [address] 07/04/2023 Scheduled Telephone [facility] Nurse Triage [address] [place] [place] [address] 07/16/2023 Office Visit Gynecology Obstetrics Shane Rowland MD [address] [place] [address] 09/17/2023 Office Visit Dermatology Marycruz Almazan PA-C [address] [place] [address] [place] [address] 09/20/2023 Office Visit Sleep Disorders Sosa Freeman CRNP [address] [place] [address] 12/10/2023 Office Visit Family Medicine Rhys Humphrey MD [address] [place] [address] [place] [address] 03/18/2024 Nurse Only Ancillary [place], Nurse Annual Wellness [address] [place] [address] [place] [address] Health Maintenance Due Date Last Done Comments Alpha-1 Antitrypsin 1958 DXA Scan 06/11/2020 06/11/2018, 03/02, 02/16/2012, Additional history exists *BISPHONATE OR OTHER ACCEPTABLE MEDICATION NEEDED FOR OSTEOPOROSIS (REFER TO SMARTSET #1146) 01/23/2021 GFR 09/26/2023 09/26/2022, 04/01, 03/22/2022, Additional history exists Depression Screening, Annual for Pts 12 and Over 03/16/2024 03/16/2023 O2 ASSESSMENT COMPLETED IN PAST YEAR FOR COPD 04/13/2024 06/07/2023 Albumin/Creatinine Ratio 04/28/2025 04/28/2022 DTaP,Tdap,and Td Vaccines (3 - Td or Tdap) 09/17/2029 09/17/2019, 08/10/2011, 10/01/2001 Zoster Vaccines Completed 04/25/2020, 08/31, 07/22/2012 VITAMIN D LEVEL ONCE IN A LIFETIME-USE SMARTSET# [id number] Completed 06/29/2020, 03/16/2015 COVID-19 Vaccine Completed 07/21/2022, [...] Documents on File Type Date Recorded Patient 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 Phone Installer Expl 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 POLST 10/15/2019 3:17 PM POLST POLST 03/05/2019 POLST FORM Advance Directives and Living Will 01/27/2013 LIVING WILL Advance Directives and Living Will 01/27/2013 LIVING WILL Power of Bobbin Doffer 01/27/2013 POWER OF A TTORNEY Power of Bobbin Doffer 01/27/2013 POWER OF A TTORNEY Healthcare Agents on File Name Relationship Healthcare Agent Relationship Communication Cydney Benito Other - (no specific identity) Second Alternate Health Care Agent Anyi More Adult Child Health Care Roberth r of Bobbin Doffer Care Teams Reading Recovery Teacher Relationship Specialty Start Date End Date Rhys Humphrey MD [address] [place] [address] [place] [address] PCP - General Family Medicine 06/09/21 documented as of this encounter
--- OUTSIDE RECORDS SUMMARY | 2023-08-14 23:30 | External Medical Summary | Summary of Care ---
Author Name Unknown Organization [facility] Address [address] [place] [address] Phone [phone] Care Team Providers Care Talent Director Name Role Phone Rhys Humphrey MD Primary Care Provide r Reason for Visit * Reason Onset Date Comments Information 05/23/2023 Encounter Details Date Type Department Care Team Description 05/23/2023 Telephone [facility] [address], [place] [id number] Services, Scheduling [address] [place] [address] Information (/) Allergies Active Allergy Reactions Severity Noted Date Comments Adhesive Tape Other (Please comment),Hives High 09/29/2008 Caused welts Dextromethorphan-Gua ifenesin Neuro complications (Please comment) Medium 12/23/2021 Feels lightheaded/"foggy" documented as of this encounter (statuses as of 05/23/2023) Medications Medication Sig Dispensed Refills Start Date [...] before bedtime. 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),COPD, group D, by [...] Inhalation Aerosol SolutionIndications: COPD, moderate ([facility]) Inhale 2 Puffs by mouth every [...] D, by GOLD 2017 classification ([facility]) Inhale 3 mL via nebulizer every [...] as of this encounter (statuses as of 05/23/2023) Active Problems Problem Noted Date Acute serous [...] as of this encounter (statuses as of 05/23/2023) Resolved Problems Problem Noted Date Resolved Date [...] as of this encounter (statuses as of 05/23/2023) Immunizations Name Administration Dates Next Due COVID-19 mRNA, LNP-s, No Pre serve, 2-Dose Series ([employer]) 07/11/2021,11/14/2020,10/24/2020 Covid-19, Mrna, Lnp-s, Pf, B ivalent, 30 Mcg, IM, 12 yrs and above (Pfizer) 07/21/2022 Pneumococcal Conjugate Vacc, 13 Valent (Prevnar) 03/16/2015 Pneumococcal Conjugate Vacci ne, 20-valent ([id number]) 07/21/2022 Pneumococcal Polysaccharide PPV23 (Pneumovax) 03/05/2019,07/18/2007 Season [...] * Telephone Encounter - ISELA Huang - 05/23/2023 3:34 PM EDT Pt returning call to [place], call transferred documented in this encounter Plan of Treatment Upcoming Encounters Date Type Specialty Care Team Description 06/07/2023 Office Visit Family Medicine Rhys Humphrey MD [address] [place] [address] [place] [address] 06/13/2023 Home Visit [facility] Amy Zaragoza RN [address] [facility] [place] [address] 06/21/2023 Office Visit Cardiology Mi Neil PA-C [address] [place] [address] 07/04/2023 Scheduled Telephone [facility] Nurse Triage [address] [place] [address] 07/16/2023 Office Visit Gynecology Obstetrics Shane Rowland MD [address] [place] [address] 09/17/2023 Office Visit Dermatology Marycruz Almazan PA-C [address] [place] [address] [place] [address] 03/18/2024 Nurse Only Ancillary Stanton, Nurse Annual Wellness [address] [place] [address] [place] [id number] Health Maintenance Due Date Last Done Comments [...] D LEVEL ONCE IN A LIFETIME-USE SMARTSET# [id number] Completed 06/29/2020, 03/16/2015 COVID-19 Vaccine Completed 07/21/2022, [...] Documents on File Type Date Recorded Patient Creative Writing Teacher Expl anation POLST 10/15/2019 3:17 PM POLST POLST 03/05/2019 POLST FORM Advance Directives and Living Will 01/27/2013 LIVING WILL Advance Directives and Living Will 01/27/2013 LIVING WILL Power of Fruit Or Nut Crops Farm Manager 01/27/2013 POWER OF A TTORNEY Power of Fruit Or Nut Crops Farm Manager 01/27/2013 POWER OF A TTORNEY Healthcare Agents on File Name Relationship Healthcare Agent Relationship Communication Cydney Benito Other - (no specific identity) Second Alternate Health Care Agent Anyi More Adult Child Health Care Roberth r of Fruit Or Nut Crops Farm Manager Care Teams Talent Director Relationship Specialty Start Date End Date Rhys Humphrey MD [address] [place] [address] [place] [address] PCP - General Family Medicine 06/09/21 documented as of this encounter
--- OUTSIDE RECORDS SUMMARY | 2023-08-14 23:30 | External Medical Summary | Summary of Care ---
Author Name Unknown Organization [facility] Address [address] [place] [address] Phone [phone] Care Team Providers Care Oil Expeller Operator Name Role Phone Rhys Humphrey MD Primary Care Provide r Reason for Visit * Reason Onset Date Comments Test Results 06/07/2023 Encounter Details Date Type Department Care Team Description 06/07/2023 Telephone Family Medicine [address] [phone] Rhys Humphrey MD [address] [place] [address] [place] [address] Test Results Allergies Active Allergy Reactions [...] before bedtime. 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),COPD, group D, by [...] Base) MCG/ACT Inhalation Aerosol SolutionIndications: COPD, moderate ([facility]) Inhale 2 Puffs by mouth every [...] group D, by GOLD 2017 classification ([facility]) Inhale 3 mL via nebulizer every [...] mRNA, LNP-s, No Pre serve, 2-Dose Series ([facility]) 07/11/2021,11/14/2020,10/24/2020 Covid-19, Mrna, Lnp-s, Pf, B ivalent, 30 Mcg, IM, 12 yrs and above (Pfizer) 07/21/2022 Pneumococcal Conjugate Vacc, 13 Valent (Prevnar) 03/16/2015 Pneumococcal Conjugate Vacci ne, 20-valent ([id number]) 07/21/2022 Pneumococcal Polysaccharide PPV23 (Pneumovax) 03/05/2019,07/18/2007 Season [...] encounter Miscellaneous Notes * Telephone Encounter - Abbie Mohr RN - 06/07/2023 5:11 PM EDT Call received from the pt. Asking about recommendations from Dr. Humphrey. Chart reviewed. Made her aware that the Dr is recommending a repeat stool sample FBOT and CBC with anemia panel to be done in 1 week. Pt verbalized understanding of such . * Telephone Encounter - Rhys Humphrey MD - 06/07/2023 2:17 PM EDT Spoke to pt's daughter - no blood or dark stool - did have diarrhea few weeks ago: resolved - needed iron infusion in the past per daughter Plan: - will repeat FOBT and CBC in 1 week documented in this encounter Plan of Treatment Upcoming Encounters Date Type Specialty Care Team Description 06/13/2023 Home Visit [facility] Amy Zaragoza, RN [address] [place] [address] 06/21/2023 Office Visit Cardiology Mi Neil PA-C [address] [place] [address] 07/04/2023 Scheduled Telephone [facility] Nurse Triage [address] [place] [address] 07/16/2023 Office Visit Gynecology Obstetrics Shane Rowland MD [address] [place] [address] 09/17/2023 Office Visit Dermatology Marycruz Almazan PA-C [address] [place] [address] [place] [address] 09/20/2023 Office Visit Sleep Disorders Sosa Freeman CRNP [address] [place] [address] 12/10/2023 Office Visit Family Medicine Rhys Humphrey MD [address] [place] [address] [place] [address] 03/18/2024 Nurse Only Ancillary Stanton, Nurse Annual Wellness [address] [place] [address] [place] [address] Scheduled Orders Name Type Priority Associated Diagnoses Orde r Schedule FECAL OCCULT BLOOD, EIA Lab Routine Anemia, unspecified type Expected: 06/07/2023 (Approximate), Expires: 06/06/2024 CBC WITH WBC DIFFERENTIAL AND ANEMIA REFLEX WORKUP Lab Routine Anemia, unspecified type Expected: 06/14/2023 (Approximate), Expires: 06/07/2024 Health Maintenance Due Date Last Done Comments [...] D LEVEL ONCE IN A LIFETIME-USE SMARTSET# [id number] Completed 06/29/2020, 03/16/2015 COVID-19 Vaccine Completed 07/21/2022, [...] Visit Diagnoses Diagnosis Anemia, unspecified type- Primary documented in this encounter Advance Directives Documents on File Type Date Recorded Patient Hogshead Salvage Expl anation POLST 10/15/2019 3:17 PM POLST POLST 03/05/2019 POLST FORM Advance Directives and Living Will 01/27/2013 LIVING WILL Advance Directives and Living Will 01/27/2013 LIVING WILL Power of Machine Try Out Setter 01/27/2013 POWER OF A TTORNEY Power of Machine Try Out Setter 01/27/2013 POWER OF A TTORNEY Healthcare Agents on File Name Relationship Healthcare Agent Relationship Communication Cydney Benito Other - (no specific identity) Second Alternate Health Care Agent Anyi More Adult Child Health Care Roberth r of Machine Try Out Setter Care Teams Oil Expeller Operator Relationship Specialty Start Date End Date Rhys Humphrey MD [address] [place] [address] [place] [phone] PCP - General Family Medicine 06/09/21 documented as of this encounter
--- OUTSIDE RECORDS SUMMARY | 2023-08-14 23:30 | External Medical Summary ---
Author Name Unknown Address Unknown Organization K01:[facility]ATORY [facility] - [address] [place] [address] Laboratory Report Ordering Provider Test Date Status CARLOS LEVIN 06/07/2023 08:58:39 Beatriz l Observation Date Value Abnormality Reference (Units ) Status Iron 06/07/2023 08:58:39 144 33-151 (ug /dL) Final Iron-binding capacity 06/07/2023 08:58:39 323 250-425 (ug/dL) Final Transferrin Sat % 06/07/2023 08:58:39 45 15 -55 (%) Final Performing Location LABORATORY C - [address] [place] [address]
--- OUTSIDE RECORDS SUMMARY | 2023-08-14 23:30 | External Medical Summary ---
Author Name Unknown Address Unknown Organization K01:[facility] - [address] [facility] [address] Laboratory Report Ordering Provider Test Date Status CARLOS LEVIN 06/07/2023 08:58:39 Beatriz l Observation Date Value Abnormality Reference (Units ) Status WBC, Total 06/07/2023 08:58:39 4.97 4.00-10.8 0 (K/uL) Final RBC 06/07/2023 08:58:39 2.99 3.85-5.15 (M/uL) Final Hemoglobin 06/07/2023 08:58:39 8.2 Below low normal 12 .0-15.3 (g/dL) Final Anemia reflex testing trigge rs on a HGB < 12.0 for Females and HGB < 13.0 for Males in accordance with the WHO Anemia Guidelines
Anemia reflex testing triggers on a HGB < 12.0 for Females and HGB < 13.0 for Males in accordance with the WHO Anemia Guidelines HCT 06/07/2023 08:58:39 28.8 Below low normal 36. 0-45.2 (%) Final MCV 06/07/2023 08:58:39 96.3 81.5-97.5 (fL) Final MCH 06/07/2023 08:58:39 27.4 27.0-34.0 (pg) Final MCHC 06/07/2023 08:58:39 28.5 32.0-36.0 (g/dL) Final RDW 06/07/2023 08:58:39 16.3 11.5-15.5 (%) Final Platelets 06/07/2023 08:58:39 339 140-400 (K /uL) Final MPV 06/07/2023 08:58:39 9.3 6.6-11.1 ( fL) Final Nucleated erythrocytes/100 leukocytes [Ratio] in Blood by Automated count 06/07/2023 08:58:39 0 <=0 (/100 WBCs) Final Performing Location LAB[facility]ATORY [facility] - [facility] [place] [address]
--- OUTSIDE RECORDS SUMMARY | 2023-08-14 23:30 | External Medical Summary | Continuity of Care Document ---
Author Name Unknown Organization [place] [address] [facility] Address [address], [place] [id number] Care Team Providers Care Sas Sql Developer Name Role Phone Rhys Humphrey Primary Care Physician [phone] [id number] Date(s): 05/28/23 - 05/28/[address], [address] [place] [phone] Discharge Disposition: Home or Self Care Attending Physician: CECI Talavera Lynn Referring Physician: CECI Talavera Lynn Allergies, Adverse Reactions, Alerts No Known Medication Allergies Medications albuterol 0.083% for nebulization Start: 03/17/21 8:25:00 EDT, 3 mL, inhaled, q4h, PRN: as needed for wheezing Start Date: 03/17/21 Status: Ordered amLODIPine 10 mg oral tablet Start: 03/17/21 8:26:00 EDT, 1 tab, PO, Daily Start Date: 03/17/21 Status: Ordered aspirin 81 mg oral delayed release tablet Start: 07/21/22 10:59:00 EDT, 1 tab, PO, Daily Start Date: 07/21/22 Status: Ordered atorvastatin 40 mg oral tablet Start: 03/17/21 8:27:00 EDT, 1 tab, PO, Daily Start Date: 03/17/21 Status: Ordered Calcium, Magnesium and Zinc oral tablet Start: 05/28/23 14:07:00 EDT, 1 tab, PO, Daily Start Date: 05/28/23 Status: Ordered Cerovite Senior oral tablet Start: 05/28/23 14:06:00 EDT, 1 tab, PO, Daily Start Date: 05/28/23 Status: Ordered cholecalciferol 25 mcg (1000 intl units) oral capsule Start: 06/15/21 10:21:00 EDT, 1 cap, PO, Daily Start Date: 06/15/21 Status: Ordered clopidogrel 75 mg oral tablet Start: 03/17/21 8:27:00 EDT, 1 tab, PO, Daily Start Date: 03/17/21 Status: Ordered cranberry oral capsule Start: 05/28/23 14:07:00 EDT Start Date: 05/28/23 Status: Ordered docusate sodium 100 mg oral capsule Start: 05/28/23 14:08:00 EDT, 2 cap, PO, Daily, PRN: as needed for constipation Start Date: 05/28/23 Status: Ordered famotidine 20 mg oral tablet Start: 05/28/23 14:08:00 EDT, 1 tab, PO, bid Start Date: 05/28/23 Status: Ordered ferrous sulfate 324 mg (65 mg elemental iron) oral delayed release tablet Start: 05/28/23 14:08:00 EDT, 1 tab, PO, Daily Start Date: 05/28/23 Status: Ordered Fish Oil 1200 mg oral capsule Start: 05/28/23 14:09:00 EDT, 1 cap, PO, bid Start Date: 05/28/23 Status: Ordered furosemide 40 mg oral tablet Start: 03/17/21 8:27:00 EDT, 1 tab, PO, Daily Start Date: 03/17/21 Status: Ordered gabapentin 100 mg oral capsule Start: 03/17/21 8:28:00 EDT, 3 cap, PO, qhs Start Date: 03/17/21 Status: Ordered hydrALAZINE 25 mg oral tablet Start: 03/17/21 8:28:00 EDT, 1 tab, PO, bid Start Date: 03/17/21 Status: Ordered losartan 100 mg oral tablet Start: 03/17/21 8:28:00 EDT, 1 tab, PO, Daily Start Date: 03/17/21 Status: Ordered montelukast 10 mg oral tablet Start: 03/17/21 8:29:00 EDT, 1 tab, PO, Daily Start Date: 03/17/21 Status: Ordered pantoprazole 40 mg oral delayed release tablet Start: 05/28/23 14:10:00 EDT, 1 tab, PO, Daily Start Date: 05/28/23 Status: Ordered ramelteon 8 mg oral tablet Start: 05/28/23 14:11:00 EDT, 1 tab, PO, qhs, PRN: as needed for insomnia Start Date: 05/28/23 Status: Ordered Mental Status 05/28/23 Barriers to Learning one year None evide nt Mandatory Health Literacy Documentation Yes Health Literacy Communication Barriers N ever Primary Language Tongan Problem List Condition Confirmation Course Effective Dates Status H ealth Status Informant Bilateral carotid artery stenosis Confirmed Active S/P carotid endarterectomy Confirmed Active Carotid stenosis, left Confirmed Active Procedures Procedure Date Related Diagnosis Body Site Status Left TCAR 07/27/22 Completed Left CEA - Carotid endarterectomy 04/06/21 Completed Results Radiology Reports * Exam Date Time Procedure Performing Provider Status 05/28/23 12:54 PM VL Carotid Duplex Unilat/Limited Maggi Saldana; Final Notes: (VL Carotid Duplex Unilat/Limited) Reason For Exam: L TCAR VL Carotid Duplex Unilat/Limited [facility] FINAL REPORT Name: LORIE FLETCHER : 1940 Visit: [id number] Date: 28 May 2023 TYPE OF TEST: Cerebrovascular Duplex REASON FOR TEST Left TCAR INTERPRETATION/FINDINGS Arterial duplex imaging performed of the LEFT extracranial arteries: 1. Patent left carotid bulb and proximal internal carotid artery stent with no evidence of restenosis. 2. >50% stenosis of the left external carotid artery. 3. Antegrade flow in the left vertebral artery. 4. Normal flow in the left subclavian artery. No prior exam available for comparison since left ICA stent placement. IMPRESSION/COMMENTS I have personally reviewed the data relevant to the interpretation of this study. TECHNOLOGIST: Maggi MELCHOR, RD, RVT PHYSICIAN: Pancho Whalen M.D. Signed: 05/28/2023 01:39 PM Final Dictated by:MD Whalen Eugene J Dictated DT/TM:05/28/2023 1:39 Signed by:MD Whalen Eugene J Signed (Electronic Signature):05/28/2023 1:39 p Transcribed by:EJS Vital Signs Most recent to oldest [Reference Range]: 1 2 Heart Rate 76 bpm (05/28/23 4:06 PM) Blood Pressure 170/70mmHg (05/28/23 4:07 PM) 160/68mmHg (05/28/23 4:06 PM) Cuff Pulse Pressure 100 mmHg (05/28/23 4:07 PM) 92 mmHg (05/28/23 4:06 PM) BP Location # 1 Right Arm (05/28/23 4:07 PM) Left Arm (05/28/23 4:06 PM) Social History Social History Type Response Smoking Status Never smoked cigaret rao Sex Female Patient Care team information Care Team Personnel Name: CECI Talavera Lynn Position: Physician Digital Business Analyst Exempt - Vasc Surg Member Role: Lifetime Relationship Address: Address: [address] [place], [place] [phone] Name: MD Milagro, Rhys Position: Referring Member Role: Primary Care Provider Address: Address: [address] [address] [place] Care Team Related Persons Name: JAVIER WATSON Name: NELLY GRANADOS
--- OUTSIDE RECORDS SUMMARY | 2023-08-14 23:30 | External Medical Summary | Continuity of Care Document ---
Author Name Unknown Organization [address] Address [address] [place], [place] [id number] Care Team Providers Care Dairy Lab Technician Name Role Phone Rhys Humphrey Primary Care Physician [phone] Encounter [facility] [id number] Date(s): 05/28/23 - 05/28/23 [facility] [address], [address] [place] [address] [phone] Encounter Diagnosis Bilateral carotid artery stenosis(Discharge Diagnosis) - 05/28/23 Discharge Disposition: Home or Self Care Attending Physician: MD Whalen Eugene J Referring Physician: MD Humphrey Thiviyanath Allergies, Adverse Reactions, Alerts No Known Medication Allergies Assessment and Plan Extracted from: Title:Clinical Document Author:CECI Talavera Lynn Date:05/28/23 I OUTPATIENT NOTE Name: LORIE LINARES Patient Number: [id number] : 1940 Date of Service: 05/28/2023 Chief Complaint: _Follow-up appointment after TCAR HPI: _Ms. Linares is an elderly female who presents to Dr. Whalen's vascular surgery clinic today for follow-up appointment regarding her history of carotid stenosis. In the past she has undergone bilateral carotid endarterectomies due to severe ICA stenoses there. She subsequently developed a restenosis of her left ICA, and underwent a left TCAR procedure in June 2022. She was seen postoperatively for an appointment, but unfortunately was unable to make any further appointments till now due to extensive [place]country traveling. She denies any new symptoms of cerebrovascular insufficiency including amaurosis, extremity weakness numbness or tingling, occulta speaking or swallowing, facial droop, sudden onset confusion, other complaints. She feels she is doing very well since her procedure last year. She has no significant changes in her health. Her carotid ultrasound performed prior to today's appointment demonstrates a widely patent left ICA stent. Her right side was not evaluated. Current Home Meds: (Last Updated 05/28 14:12) albuterol (albuterol 0.083% for nebulization) 2.5 mg inhaled q4h PRN: as needed for wheezing amLODIPine (amLODIPine 10 mg oral tablet) 10 mg PO Daily aspirin (aspirin 81 mg oral delayed release tablet) 81 mg PO Daily atorvastatin (atorvastatin 40 mg oral tablet) 40 mg PO Daily cholecalciferol (cholecalciferol 25 mcg (1000 intl units) oral capsule) 25 mcg PO Daily clopidogrel (clopidogrel 75 mg oral tablet) 75 mg PO Daily cranberry (cranberry oral capsule) docusate (docusate sodium 100 mg oral capsule) 200 mg PO Daily PRN: as needed for constipation famotidine (famotidine 20 mg oral tablet) 20 mg PO bid ferrous sulfate (ferrous sulfate 324 mg (65 mg elemental iron) oral delayed release tablet) 324 mg PO Daily furosemide (furosemide 40 mg oral tablet) 40 mg PO Daily gabapentin (gabapentin 100 mg oral capsule) 300 mg PO qhs hydrALAZINE (hydrALAZINE 25 mg oral tablet) 25 mg PO bid losartan (losartan 100 mg oral tablet) 100 mg PO Daily montelukast (montelukast 10 mg oral tablet) 10 mg PO Daily multivitamin with minerals (Cerovite Senior oral tablet) 1 tab PO Daily multivitamin with minerals (Calcium, Magnesium and Zinc oral tablet) 1 tab PO Daily omega-3 polyunsaturated fatty acids (Fish Oil 1200 mg oral capsule) 1,200 mg PO bid pantoprazole (pantoprazole 40 mg oral delayed release tablet) 40 mg PO Daily ramelteon (ramelteon 8 mg oral tablet) 8 mg PO qhs PRN: as needed for insomnia Allergies and Sensitivities: No Known Medication Allergies Past Medical History: Problems: Bilateral carotid artery stenosis S/P carotid endarterectomy Carotid stenosis, left OBJECTIVE Vitals: Last Updated 05/28/23 16:07 Date Temp BP Location Pulse RR SpO2 Pain 05/28/23 170/70 Right Arm 0 05/28/23 160/68 Left Arm 76 93 07/21/22 0 Vital Signs are the last 3 documented. No Orthostatic Data Available Height and Weight: Last Updated 05/11/22 11:51 Date BMI Wt(kg) Wt(lb) Method Ht(cm) (ft-in) Method 05/11/22 78.9 174 Standing Scale 03/17/21 30.97 83.8 184 Standing Scale 164.5 5-4 Heights and Weights are the last 3 documented. Physical Exam Constitutional: In general patient is a healthy-appearing well-nourished well-developed elderly female no distress. She is alert and oriented without any focal deficits. Her left carotid does demonstrate a faint bruit. Her heart is regular, her lungs are clear. Her abdomen is soft nontender with normoactive bowel sounds in all 4 quadrants. Brachial radial and femoral pulses are +3. Lower extremity distal pulses are +2. She has brisk capillary refill and no sign of distal ischemia. There is no edema ASSESSMENT: _ PLAN: _ 1 ) _bilateral carotid stenosis Patient does have a history of bilateral ICA stenosis, having undergone bilateral carotid endarterectomies, and more recently a left sided TCAR procedure due to restenosis there. Patient is overall doing well, and there is no restenosis noted on her left-sided carotid ultrasound. At this point we advised her to return to our office in 6 months for reevaluation with a new carotid ultrasound done for bilateral carotid disease at that time. She is advised to call any other questions or concerns. She is agreeable to this plan. Thank you for letting us participate in the care of this patient. Medications albuterol 0.083% for nebulization Start: 03/17/21 [...] for insomnia Start Date: 05/28/23 Status: Ordered Problem List Condition Confirmation Course Effective Dates Status H ealth Status Informant Bilateral carotid artery stenosis Confirmed Active S/P carotid endarterectomy Confirmed Active Carotid stenosis, left Confirmed Active Diagnosis Diagnosis Type Effective Dates Health Status Cl inical Service Informant Bilateral carotid artery stenosis Discharge Diagnosis 05/28/23 Procedures Procedure Date Related Diagnosis Body Site Status Left TCAR 07/27/22 Completed Left CEA - Carotid endarterectomy 04/06/21 Completed Social History Social History Type Response Smoking Status Never smoked cigaret rao Sex Female [facility] Outpt Note * CECI Talavera Lynn: PERFORM Event Display: [facility] Out[facility] Note Authored Date: [id number] [facility] OUTPATIENT NOTE Name: LORIE LINARES Patient Number: [id number] : 1940 Date of Service: 05/28/2023 Chief Complaint: _Follow-up appointment after TCAR HPI: _Ms. Linares is an elderly female who presents to Dr. Whalen's vascular surgery clinic today for follow-up appointment regarding her history of carotid stenosis. In the past she has undergonebilateral carotid endarterectomies due to severe ICA stenoses there. She subsequently developed a restenosis of her left ICA, and underwent a left TCAR procedure in June 2022. She was seen postop eratively for an appointment, but unfortunately was unable to make any further appointments till now due to extensive cross-country traveling. She denies any new symptoms of cerebrovascular insufficiency including amaurosis, extremity weakness numbness or tingling, occulta speaking or swallowing, facial droop, sudden onset confusion, other complaints. She feels she is doing very well since her procedure last year. She has no significant changes in her health. Her carotid ultrasound performed prior to today's appointment demonstrates a widely patent left ICAstent. Her right side was not evaluated. Current Home Meds: (Last Updated 05/28 14:12) albuterol (albuterol 0.083% for nebulization) 2.5 mg inhaled q4h PRN: as needed for wheezing amLODIPine (amLODIPine 10 mg oral tablet) 10 mg PO Daily aspirin (aspirin 81 mg oral delayed release tablet) 81 mg PO Daily atorvastatin (atorvastatin 40 mg oral tablet) 40 mg PO Daily cholecalciferol (cholecalciferol 25 mcg (1000 intl units) oral capsule) 25 mcg PO Daily clopidogrel (clopidogrel 75 mg oral tablet) 75 mg PO Daily cranberry (cranberry oral capsule) docusate (docusate sodium 100 mg oral capsule) 200 mg PO Daily PRN: as needed for constipation famotidine (famotidine 20 mg oral tablet) 20 mg PO bid ferrous sulfate (ferrous sulfate 324 mg (65 mg elemental iron) oral delayed release tablet) 324 mg PO Daily furosemide (furosemide 40 mg oral tablet) 40 mg PO Daily gabapentin (gabapentin 100 mg oral capsule) 300 mg PO qhs hydrALAZINE (hydrALAZINE 25 mg oral tablet) 25 mg PO bid losartan (losartan 100 mg oral tablet) 100 mg PO Daily montelukast (montelukast 10 mg oral tablet) 10 mg PO Daily multivitamin with minerals (Cerovite Senior oral tablet) 1 tab PO Daily multivitamin with minerals (Calcium, Magnesium and Zinc oral tablet) 1 tab PO Daily omega-3 polyunsaturated fatty acids (Fish Oil 1200 mg oral capsule) 1,200 mg PO bid pantoprazole (pantoprazole 40 mg oral delayed release tablet) 40 mg PO Daily ramelteon (ramelteon 8 mg oral tablet) 8 mg PO qhs PRN: as needed for insomnia Allergies and Sensitivities: No Known Medication Allergies Past Medical History: Problems: Bilateral carotid artery stenosis S/P carotid endarterectomy Carotid stenosis, left OBJECTIVE Vitals: Last Updated 05/28/23 16:07 Date Temp BP Location Pulse RR SpO2 Pain 05/28/23 170/70 Right Arm 0 05/28/23 160/68 Left Arm 76 93 07/21/22 0 Vital Signs are the last 3 documented. No Orthostatic Data Available Height and Weight: Last Updated 05/11/22 11:51 Date BMI Wt(kg) Wt(lb) Method Ht(cm) (ft-in) Method 05/11/22 78.9 174 Standing Scale 03/17/21 30.97 83.8 184 Standing Scale 164.5 5-4 Heights and Weights are the last 3 documented. Physical Exam Constitutional: In general patient is a healthy-appearing well-nourished well- developed elderly female no distress. She is alert and oriented without any focal deficits. Her left carotid does demonstrate a faint bruit. Her heart is regular, her lungs are clear. Her abdomen is soft nontender with normoactive bowel sounds in all 4 quadrants. Brachial radial and femoral pulses are +3. Lower extremity distal pulses are +2. She has brisk capillary refill and no sign of distal ischemia. There is no edema ASSESSMENT: _ PLAN: _ 1 ) _bilateral carotid stenosis Patient does have a history of bilateral ICA stenosis, having undergone bilateral carotid endarterectomies, and more recently a left sided TCAR procedure due to restenosis there. Patient is overall doing well, and there is no restenosis noted on her left-sided carotid ultrasound. At this point we ad vised her to return to our office in 6 months for reevaluation with a new carotid ultrasound done for bilateral carotid disease at that time. She is advised to call any other questions or concerns. She is agreeable to this plan. Thank you for letting us participate in the care of this patient. Electronic Signature on File Electronically Reviewed/Signed by: Cathi Talavera PA-C Author Signature Dt/Tm:05/28/2023 04:43 PM [facility] [address] [place] [address] LM Patient Care team information Care Team Personnel Name: CECI Talavera Lynn Position: Physician Account Supervisor Exempt - Vasc Surg Member Role: Lifetime Relationship Address: Address: [address] [place] [address] [address] [place] [address] [place] Name: MD Milagro, Rhys Position: Referring Member Role: Primary Care Provider Address: Address: [address] [address] [place] Care Team Related Persons Name: JAVIER WATSON Name: NELLY GRANADOS
--- OUTSIDE RECORDS SUMMARY | 2023-08-14 23:30 | External Medical Summary | Summary of Care ---
Author Name Unknown Organization [facility] Address [address] [place] [address] Phone [phone] Care Team Providers Care Rail Splitter Name Role Phone Rhys Humphrey MD Primary Care Provide r Reason for Referral * Evaluate & Treat - Unlimited Visits (Within 30 days (routine)) - Authorized Specialty Diagnoses / Procedures Referred By Contalexander downs Referred To Contact Physical Therapy / Physical Medicine And Rehab Diagnoses Chronic left shoulder pain Rhys Humphrey MD [address] [place] [address] [place] [address] Referral ID Status Reason Start Date Expiration Date Visits Requested Visits Authorized [id number] Authorized Specialty Services Required 06/07/2023 999 999 Question Answer Referral Priority Within 30 days (routine) Reason for Visit * Reason Onset Date Comments Re-Check Medication Administration 06/07/2023 Flu an d/or Pneumo Inj Encounter Details Date Type Department Care Team Description 06/07/2023 [facility] [address] [place] [address] [place] [phone] Rhys Humphrey MD [address] [place] [address] [place] [address] HTN, GOAL BELOW 140/90*; Need for prophylactic vaccination and inoculation against influenza; Chronic left shoulder pain; Vaginal irritation; Atrophic vaginitis; Dyslipidemia, goal LDL below 70; Iron deficiency Allergies Active Allergy Reactions Severity Noted Date [...] Each 0 11/11/2019 Active Nebulizers (NEBULIZER COMPRESSOR) MISCIndications:DRY MAN D, 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 Use as directed. 1 Each 1 11/17/2019 Active Iron 325 (65 Fe) MG Oral Tablet Take by mouth. 0 Active Cranberry 500 MG Oral Capsule Take 1 Capsule by mouth in the morning and 1 Capsule before bedtime. 50 Cap 0 01/18/2021 Active Swgauqq-Dlisvuqoc-Y inc 333-133-5 MG Oral Tablet Take by [...] Base) MCG/ACT Inhalation Aerosol SolutionIndications :COPD, moderate ([facility]) Inhale 2 Puffs by mouth [...] 01/25/2023 Active Ramelteon 8 MG Oral Tablet (Rozerem)Indication [...] :COPD, group D, by GOLD 2017 classification ([facility] [...] for Cough. 30 Capsule 1 06/07/2023 Active Benzonatate 100 MG Oral Capsule (Tessalon Perles) Take by mouth 1 Capsule as needed in the morning AND 1 Capsule as needed at noon AND 1 Capsule as needed in the evening for Cough. 30 Capsule 1 08/05/2022 3 Discontinu ed(Refill) Premarin 0.625 MG/GM Vaginal Cream (Estrogens Conjugated)Indicati ons:Vaginal irritation Administer 0.5 g into the vagina at bedtime on Sunday and Sunday only. 42.5 g 1 02/02/2023 3 Discontinu ed(Refill) Diclofenac Sodium 1 % External Gel (Voltaren)Indicatio ns:pain Apply 2 g topically to affected area daily as needed for Pain. Apply to L shoulder 350 g 2 03/16/2023 3 Discontinu ed(Refill) documented as of this [...] mRNA, LNP-s, No Pre serve, 2-Dose Series (Pfizer) 07/11/2021,11/14/2020,10/24/2020 Covid-19, Mrna, Lnp-s, Pf, B ivalent, 30 Mcg, IM, 12 yrs and above (Pfizer) 07/21/2022 Pneumococcal Conjugate Vacc, 13 Valent (Prevnar) 03/16/2015 Pneumococcal Conjugate Vacci ne, 20-valent ([id number]) 07/21/2022 Pneumococcal Polysaccharide PPV23 (Pneumovax) 03/05/2019,07/18/2007 Season [...] 10/01/2001 Smokeless Tobacco: Never Tobacco Cessation:Counseling Given: No Alcohol Use Standard Drinks/Week Comments No 0 [...] Sign Reading Time Taken Comments Blood Pressure 130/60 06/07/2023 7:56 AM EDT Pulse 84 06/07/2023 7:56 AM EDT Temperature 35.6 C (96 F) 06/07/2023 7:56 AM EDT Respiratory Rate 16 06/07/2023 7:56 AM EDT Oxygen Saturation 91% 06/07/2023 7:56 AM EDT Inhaled Oxygen Concentration - - Weight 70.1 kg (154 lb 9.6 oz) 06/07/2023 7:56 A M EDT Height 162.6 cm (5' 4") 06/07/2023 7:56 AM EDT Body Mass Index 26.54 06/07/2023 7:56 AM EDT documented in this encounter Progress Notes * Rhys Humphrey MD - 06/07/2023 8:02 AM EDT Subjective: HPI: Keisha Linares is a 82 year old female with hx of TIA (03/2021), b/l carotid endarterectomy, HTN, COPD, prediabetes, CKD II-III, diastolic heart failure, GERD, ISELA on CPAP, hx of follicular lymphoma, Insomnia, depression, RLS, Mild Aortic valve stenosis, and Peripheral neuropathy seen for HTN: - on losartan 100mg daily, and lasix 40mg daily - compliant with meds ISELA: - pt still does not have CPAP - had a follow up with sleep med last year RLS: - Gabapentin helping with symptoms - increased dose helping per pt - denied any drowsiness Chronic L shoulder pain: - per pt steroid injection did not help - still gets intermittent pain Patient Active Problem List Diagnosis Code History [...] group D, by GOLD 2017 classification (HCC) J44.9 Gastroesophageal reflux disease without esophagitis K21.9 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) C82.22 Chronic insomnia F51.04 Dysfunction of both eustachian tubes H69.83 At risk for falls Z91.81 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) C82.02 Age-related osteoporosis without current pathological fracture M81.0 Left carotid stenosis I65.22 S/P carotid endarterectomy Z98.890 Iron deficiency anemia D50.9 RLS (restless legs syndrome) G25.81 Peripheral polyneuropathy G62.9 Nontoxic multinodular goiter E04.2 Acute serous otitis media H65.00 Current Outpatient Medications Medication Sig Dispense Refill Diclofenac Sodium 1 % External Gel (Voltaren) Apply 2 g topically to affected area daily as needed for Pain. Apply to L shoulder 350 g 2 [START ON 06/08/2023] Premarin 0.625 MG/GM Vaginal Cream (Estrogens Conjugated) Administer 0.5 g intothe vagina at bedtime on Sunday and Sunday only. 42.5 g 1 Benzonatate 100 MG Oral Capsule Take 1 Capsule by mouth 3 times a day as needed for Cough. 30 Capsule 1 FISH OIL 1000 MG PO CAPS twice [...] and 1 Capsule before bedtime. 50 Cap Efpzhyr-Dceeabmej-Goiy 333-133-5 MG Oral Tablet Take by mouth. Famotidine 20 MG Oral Tablet (Pepcid) Take 1 Tab by mouth 2 times a day as needed for Heartburn. (Patient taking differently: Take 1 Tablet by mouth 2 times a day as needed for Heartburn.) 180 Tab 3 Furosemide 40 MG Oral Tablet (Lasix) Take by mouth 1 Tablet in the morning. May take an additional tablet as needed for weight gain or shortness of breath.. 120 Tablet 3 Anoro Ellipta 62.5-25 MCG/INH Inhalation Aerosol [...] ONE TABLET EVERY DAY 90 Tablet 3 Ramelteon 8 MG Oral Tablet (Rozerem) TAKE ONE TABLET BY MOUTH AT BEDTIME 30 Tablet 3 Meclizine HCl 12.5 MG Oral [...] Tablets by mouth daily. 180 Tablet 1 No current facility-administered medications for this visit. Past Medical History: Diagnosis Date Acute cystitis [...] polyps, internal hemorrhoids COLONOSCOPY, DIAGNOSTIC (RECTUM) 07/31/2017 diverticulosis/[facility] COLONOSCOPY, DIAGNOSTIC (RECTUM) 09/09/2021 diverticulosis / [facility] COLORECTAL CANCER SCREEN; NOT AT RISK 11/[address] ABDOMEN/PELVIS 04/02/2013 mesenteric lymphadenopathy concerning for lymphoma DIGITAL RECTAL EXAM,ANNUAL 03/2000 EGD, FLEXIBLE, DIAGNOSTIC 03/03/2013 mild gastritis EGD, FLEXIBLE, DIAGNOSTIC 07/31/2017 normal bx, hiatal hernia/[facility] EGD, FLEXIBLE, DIAGNOSTIC 10/14/2021 reflux esophagitis, hiatal hernia / [facility] EGD, FLEXIBLE, DIAGNOSTIC 09/09/2021 hiatal hernia / [facility] HEMORRHOIDECTOMY, SIMPLE, 1 COLUMN 1989 Hemorrhoidectomy,Int/Ext,Simple MAMMOGRAM SCREENING-BILATERAL 03/2000 SIGMOIDOSCOPY, DIAGNOSTIC 1996 SPIROMETRY B/A BRONCHODILATOR 01/06/2005 obstructive airway disease THROMBOENDARECTOMY W/PATCH,NECK INCISION Right carotid endarterectomy done in [place] TOTAL ABD HYSTERECTOMY W/WO REMOVAL OF TUBE(S) 1973 non cancer reasons TOTAL HIP REPLACEMENT & PROSTHESIS 08/19/2008 [facility] Review of patient's allergies indicates: Allergen Reactions Adhesive Tape Other (Please comment) and Hives Caused welts Ginger Perry [Dextromethorphan-Guaifenesin] Neuro complications (Please comment) Feels lightheaded/"foggy" Family History Problem Relation Age of Onset Stroke Mother CVA Stroke Father CVA Social History Tobacco Use Smoking status: Former Packs/day: 0.50 Years: 46.00 Pack years: 23.00 Types: Cigarettes Quit date: 10/01/2001 Years since quittin.6 Smokeless tobacco: Never Substance Use Topics Alcohol use: No Vaping/E-Cigarette Use Vaping/E-Cigarette Use Never User Vaping/E-Cigarette Substances Vaping/E-Cigarette Devices ROS: -Per HPI OBJECTIVE: BP 130/60 | Pulse 84 | Temp 35.6 C (96 F) (Tympanic) | Resp 16 | Ht 1.626 m (5' 4") | Wt 70.1 kg (154 lb 9.6 oz) | SpO2 91% | BMI 26.54 kg/m | BSA 1.78 m PHYSICAL EXAM: Vitals are reviewed General:. NAD, well developed HEENT:. Normal Conjunctiva, EOMI Cardiac:.systolic murmur, Normal S1, S2 Lungs:. CTA, no wheezing or crackles MSK:. Normal gait Psych:. AAOx3, normal affect ASSESSMENT/PLAN: VSS and normal PE Will do PT again for L shoulder pain Sleep med follow up for the CPAP HTN, GOAL BELOW 140/90 (Primary) - BASIC METABOLIC PANEL Need for prophylactic vaccination and inoculation against influenza - INFLUENZA VACC, QUAD, HIGH DOSE (FLUZONE HD) - CBC WITH WBC DIFFERENTIAL AND ANEMIA REFLEX WORKUP Chronic left shoulder pain - Diclofenac Sodium 1 % External Gel (Voltaren); Apply 2 g topically to affected area daily as needed for Pain. Apply to L shoulder - PHYSICAL THERAPY REFERRAL OP Vaginal irritation - Premarin 0.625 MG/GM Vaginal Cream (Estrogens Conjugated); Administer 0.5 g into the vagina at bedtime on Sunday and Sunday only. Atrophic vaginitis - Premarin 0.625 MG/GM Vaginal Cream (Estrogens Conjugated); Administer 0.5 g into the vagina at bedtime on Sunday and Sunday only. Dyslipidemia, goal LDL below 70 - LIPID PANEL WITHOUT DIRECT LDL Iron deficiency Other orders - Benzonatate 100 MG Oral Capsule; Take 1 Capsule by mouth 3 times a day as needed for Cough. Follow-up: Return in about 6 months (around 12/06/2023). | Check-out note: Please help pt leonid follow up with sleep med Rhys Humphrey MD [place] [id number] * Bindu Davison LPN - 06/07/2023 7:56 AM EDT PRE - ADMINISTRATION DOCUMENTATION Are you experiencing any cold symptoms or fever? No Have you had Guillain-Walcott Syndrome (an illness that causes paralysis) within the last 6 weeks? No Have you had the flu shot in the past? YES Have you ever had a reaction to the flu shot? No Bindu Davison LPN, 06/07/2023 7:56 AM Immunization Administration Documentation Time Out Procedure Performed: Yes Patient Identified (Ask Name/Date of ): Yes Does the patient have a fever greater than 101 degrees today? No Patient allergic to latex? No VFC Stock: No Immunization(s) verified: Yes, Immunization Name: Flu, VIS Sheet(s) given: Yes Verified Side and Site: Yes Verified Shot(s) with Parent(s)/Patient: Yes documented in this encounter Nursing Notes * Bindu Davison LPN - 06/07/2023 7:55 AM EDT Pt here for check up Having continued left shoulder pain Takes 2 tylenol at night - not sure if it helps Hasn't got her new CPAP machine Doesn't follow with Sleep Med documented in this encounter Plan of Treatment Upcoming Encounters Date Type Specialty Care Team Description 06/07/2023 Laboratory Laboratory [place], [facility] [address] [place] [address] Arrived 06/13/2023 Home Visit [facility] Amy Zaragoza RN [address] [place] [address] 06/21/2023 Office Visit Cardiology Mi Neil PA-C [address] [place] [address] 07/04/2023 Scheduled Telephone [facility] Nurse Triage [address] [place] [address] 07/16/2023 Office Visit Gynecology Obstetrics Shane Rowland MD [address] [place] [address] 09/17/2023 Office Visit Dermatology Marycruz Almazan PA-C [address] [place] [address] [place] [address] 03/18/2024 Nurse Only Ancillary [place], Nurse [facility] [address] [place] [address] [place] [address] Scheduled Orders Name Type Priority Associated Diagnoses Orde r Schedule LIPID PANEL WITHOUT DIRECT LDL Lab Routine Dyslipidemia, goal LDL below 70 Ordered: 06/07/2023 BASIC METABOLIC PANEL Lab Routine HTN, GOAL BELOW 140/90 Ordered: 06/07/2023 CBC WITH WBC DIFFERENTIAL AND ANEMIA REFLEX WORKUP Lab Routine Need for prophylactic vaccination and inoculation against influenza Ordered: 06/07/2023 ANEMIA CBC Lab Routine Need for prophylactic vaccination and inoculation against influenza Ordered: 06/07/2023 DIFFERENTIAL, AUTOMATED Lab Routine Need for prophylactic vaccination and inoculation against influenza Ordered: 06/07/2023 ANEMIA REFLEX CHEMISTRY HOLD Lab Routine Need for prophylactic vaccination and inoculation against influenza Ordered: 06/07/2023 Scheduled Referrals Name Type Priority Associated Diagnoses Orde r Schedule PHYSICAL THERAPY REFERRAL OP Referral Within 30 days (routine) Chronic left shoulder pain Ordered: 06/07/2023 Health Maintenance Due Date Last Done Comments [...] D LEVEL ONCE IN A LIFETIME-USE SMARTSET# [id number] Completed 06/29/2020, 03/16/2015 COVID-19 Vaccine Completed 07/21/2022, [...] GOAL BELOW 140/90- Primary Unspecified essential hypertension Need for prophylactic vaccination and inoculation against influenza Chronic left shoulder pain Pain in joint, shoulder region Vaginal irritation Unspecified noninflammatory disorder of vagina Atrophic vaginitis Postmenopausal atrophic vaginitis Dyslipidemia, goal LDL below 70 Other and unspecified hyperlipidemia Iron deficiency Iron deficiency anemia, unspecified documented in this encounter Advance Directives Documents on File Type Date Recorded Patient Health Information Tech Expl anation POLST 10/15/2019 3:17 PM POLST POLST 03/05/2019 POLST FORM Advance Directives and Living Will 01/27/2013 LIVING WILL Advance Directives and Living Will 01/27/2013 LIVING WILL Power of Debrander 01/27/2013 POWER OF A TTORNEY Power of Debrander 01/27/2013 POWER OF A TTORNEY Healthcare Agents on File Name Relationship Healthcare Agent Relationship Communication Cydney Benito Other - (no specific identity) Second Alternate Health Care Agent Anyi More Adult Child Health Care Roberth r of Debrander Care Teams Rail Splitter Relationship Specialty Start Date End Date Rhys Humphrey MD [address] [place] [address] [place] [address] PCP - General Family Medicine 06/09/21 documented as of this encounter
--- OUTSIDE RECORDS SUMMARY | 2023-08-14 23:30 | External Medical Summary ---
Author Name Unknown Address Unknown Organization [id number]:[facility] [place] [address] [facility] [address] Laboratory Report Ordering Provider Test Date Status JUSTIN LEVINMILLIE 06/07/2023 08:58:39 Beatriz l Observation Date Value Abnormality Reference (Units ) Status TSH 06/07/2023 08:58:39 2.78 0.27-4.20 (uIU/mL) Final Performing Location [facility]ORY [facility] - [address] [place] [address]
--- OUTSIDE RECORDS SUMMARY | 2023-08-14 23:30 | External Medical Summary | Summary of Care ---
Author Name Unknown Organization [facility] Address [address] [place] [address] Phone [phone] Care Team Providers Care Heavy Equipment Technician Name Role Phone Rhys Humphrey MD Primary Care Provide r Reason for Visit * Reason Onset Date Comments Test Results 06/07/2023 Encounter Details Date Type Department Care Team Description 06/07/2023 Telephone Family Medicine [address] [id number] Rhys Humphrey MD [address] [place] [address] [place] [address] Test Results Allergies Active Allergy Reactions [...] before bedtime. 50 Cap 0 01/18/2021 Active Yjexeiu-Godnvymwc-Jt nc 333-133-5 MG Oral Tablet Take by [...] MCG/INH Inhalation Aerosol Powder Breath Activated (umeclidinium-vilant ed)Indications:PARTS PICKER D, moderate (HCC),COPD, group D, by GOLD [...] Inhalation Aerosol SolutionIndications: COPD, moderate ([facility]) Inhale 2 Puffs by mouth [...] mRNA, LNP-s, No Pre serve, 2-Dose Series ([employer]) 07/11/2021,11/14/2020,10/24/2020 Covid-19, Mrna, Lnp-s, Pf, B ivalent, 30 Mcg, IM, 12 yrs and above (Pfizer) 07/21/2022 Pneumococcal Conjugate Vacc, 13 Valent (Prevnar) 03/16/2015 Pneumococcal Conjugate Vacci ne, 20-valent ([id number]) 07/21/2022 Pneumococcal Polysaccharide PPV23 (Pneumovax) 03/05/2019,07/18/2007 Season [...] Specialty Care Team Description 06/13/2023 [facility] Amy Zaragoza RN [address] [facility] [place] [address] 06/21/2023 Office Visit Cardiology Mi Neil PA-C [address] [place] [address] 07/04/2023 Scheduled Telephone [facility] Nurse Triage [address] [place] [address] 07/16/2023 Office Visit Gynecology Obstetrics Shane Rowland MD [address] [place] [address] 09/17/2023 Office Visit Dermatology Marycruz Almazan PA-C [address] [place] [address] [place] [address] 09/20/2023 Office Visit Sleep Disorders Sosa Freeman CRNP [address] [place] [address] 12/10/2023 Office Visit Family Medicine Rhys Humphrey MD [address] [place] [address] [place] [address] 03/18/2024 Nurse Only Ancillary [place], Nurse [facility] [address] [place] [address] [place] [address] Scheduled Orders Name Type Priority Associated Diagnoses [...] (REFER TO SMARTSET #[id number]) 01/23/2021 GFR 09/26/2023 06/07/2023, 09/01, 04/28/2022, Additional history exists Depression Screening 03/16/2024 03/16/2023 O2 ASSESSMENT COMPLETED IN PAST YEAR FOR COPD 06/07/2024 06/07/2023 Albumin/Creatinine Ratio 04/28/2025 04/28/2022 DTaP,Tdap,and Td Vaccines (3 - Td or Tdap) 09/17/2029 09/17/2019, 08/10/2011, 10/01/2001 Zoster Vaccines Completed 04/25/2020, 08/31, 07/22/2012 VITAMIN D LEVEL ONCE IN A LIFETIME-USE SMARTSET# [id number] Completed 06/29/2020, 03/16/2015 COVID-19 Vaccine Completed 07/21/2022, [...] Documents on File Type Date Recorded Patient Medical Malpractice Paralegal Expl anation POLST 10/15/2019 3:17 PM POLST POLST 03/05/2019 POLST FORM Advance Directives and Living Will 01/27/2013 LIVING WILL Advance Directives and Living Will 01/27/2013 LIVING WILL Power of Scrap Iron Cutter 01/27/2013 POWER OF A TTORNEY Power of Scrap Iron Cutter 01/27/2013 POWER OF A TTORNEY Healthcare Agents on File Name Relationship Healthcare Agent Relationship Communication Cydney Bentio Other - (no specific identity) Second Alternate Health Care Agent Anyi More Adult Child Health Care Roberth r of Scrap Iron Cutter Care Teams Heavy Equipment Technician Relationship Specialty Start Date End Date Rhys Humphrey MD [address] [place] [address] [place] [address] PCP - General Family Medicine 06/09/21 documented as of this encounter
--- OUTSIDE RECORDS SUMMARY | 2023-08-14 23:30 | External Medical Summary ---
Author Name Unknown Address Unknown Organization [id number]:[facility]ORY [facility] [place] [address] [place] [address] Laboratory Report Ordering Provider Test Date Status CARLOS LEVIN 06/07/2023 08:58:39 Beatriz l Observation Date Value Abnormality Reference (Units ) Status Folic Acid 06/07/2023 08:58:39 >20.0 >4.5 (ng/ mL) Final Performing Location LABORATORY [facility] - [address] [place] [address]
--- OUTSIDE RECORDS SUMMARY | 2023-08-14 23:30 | External Medical Summary | Summary of Care ---
Author Name Unknown Organization [facility] Address [address] [place] [address] Phone [phone] Care Team Providers Care Truck Leasing Manager Name Role Phone Rhys Humphrey MD Primary Care Provide r Reason for Visit * Reason Onset Date Comments [facility]: Maintenance 06/05/2023 Encounter Details Date Type Department Care Team Description 06/05/2023 Telephone [facility], [facility] [address] [place] [address] [facility], Nurse [facility] [address] [place] [address] [facility]: Maintenance Allergies Active Allergy Reactions Severity Noted Date Comments Adhesive Tape Other (Please comment),Hives High 09/29/2008 Caused welts Dextromethorphan-Gua ifenesin Neuro complications (Please comment) Medium 12/23/2021 Feels lightheaded/"foggy" documented as of this encounter (statuses as of 06/05/2023) Medications Medication Sig Dispensed Refills Start Date [...] before bedtime. 50 Cap 0 01/18/2021 Active Xncbjbw-Sykwocwyv-Qe nc 333-133-5 MG Oral Tablet Take by [...] MCG/INH Inhalation Aerosol Powder Breath Activated (umeclidinium-vilant ed)Indications:COURT LIAISON D, moderate (HCC),COPD, group D, by GOLD [...] Base) MCG/ACT Inhalation Aerosol SolutionIndications: COPD, moderate ([facility]) Inhale 2 Puffs by mouth every 4 hours as needed for Cough, Shortness of Breath or Wheezing. 18 g 5 01/01/2023 Active Montelukast Sodium 10 MG Oral Tablet (Singulair)Indicatio ns:Moderate chronic obstructive pulmonary disease ([facility]) TAKE ONE TABLET BY MOUTH [...] COPD, group D, by GOLD 2017 classification ([facility]) Inhale 3 mL via nebulizer [...] as of this encounter (statuses as of 06/05/2023) Active Problems Problem Noted Date Acute serous [...] as of this encounter (statuses as of 06/05/2023) Resolved Problems Problem Noted Date Resolved Date [...] as of this encounter (statuses as of 06/05/2023) Immunizations Name Administration Dates Next Due COVID-19 mRNA, LNP-s, No Pre serve, 2-Dose Series ([facility]) 07/11/2021,11/14/2020,10/24/2020 Covid-19, Mrna, Lnp-s, Pf, B ivalent, 30 Mcg, IM, 12 yrs and above ([facility]) 07/21/2022 Pneumococcal Conjugate Vacc, 13 Valent (Prevnar) 03/16/2015 Pneumococcal Conjugate Vacci ne, 20-valent ([id number]) 07/21/2022 Pneumococcal Polysaccharide PPV23 (Pneumovax) 03/05/2019,07/18/2007 Season [...] Miscellaneous Notes * Telephone Encounter - Isa Cade LPN - 06/05/2023 10:56 AM EDT Images from the original note were not included. [facility] Telephonic Nurse Follow-Up Call [facility] Subprogram: Focused Care Management (3-9 months) Follow Up Call Type: Routine follow up call / Status Check Acute issue requiring follow-up call: Remote Patient Monitoring Trigger Objective: 04/13/2023 3:30 PM 04/09/2023 10:00 AM 03/16/2023 9:58 AM 03/16/2023 8:39 AM 02/23/2023 1:27 PM VITALS ACROSS ENCOUNTERS BP 140/52 120/60 124/52 124/52 118/48 Pulse 88 88 93 93 83 Weight 66.2 kg 66.6 kg BMI 25.05 BMI 25.06 kg/m2 25 kg/m2 No results found for: BLOOD, PROTEIN, ESTERASE, WBC, NITRITE, QUANT URINE CULTURE GROWTH No results found for: WBC AUTO - [facility], HGB - [facility], PLATELET AUTO - [facility] No results found for: SODIUM - [facility], POTASSIUM - [facility], MAGNESIUM - [facility], CO2 - [facility], CREATININE - [facility], ESTIMATED GLOMERULAR FILTRATION RATE - [facility], ALBUMIN - [facility],AST - [facility], ALT - [facility], ALKALINE PHOSPHATASE - [facility] No results found for: PRO BNP, LEFT VENTRICULAR EJECTION FRACTION Remote Patient Monitoring: [facility] [place] Blood Pressure Cuff: 93/46 Oxygen Needs: NO supplemental oxygen needs identified DME Needs: NO DME needs identified Medications: No medication or dose adjustments made during acute episode Phone call to patient to f/u with low BP reading this AM. No answer. Left message with callback number for [facility] for patient to return call. documented in this encounter Plan of Treatment Upcoming Encounters Date Type Specialty Care Team Description 06/07/2023 Office Visit Family Medicine Rhys Humphrey MD [address] [place] [address] [place] [address] 06/13/2023 Home Visit [facility] Amy Zaragoza RN [address] [place] [address] 06/21/2023 Office Visit Cardiology Mi Neil PA-C [address] [place] [address] 07/04/2023 Scheduled Telephone [facility] Nurse Triage [address] [place] [address] 07/16/2023 Office Visit Gynecology Obstetrics Shane Rowland MD [address] [place] [address] 09/17/2023 Office Visit Dermatology Marycruz Almazan PA-C [address] [place] [address] [place] [address] 03/18/2024 Nurse Only Ancillary [place], Nurse Annual Wellness [address] [place] [address] [place] [address] Health Maintenance Due Date Last Done Comments [...] D LEVEL ONCE IN A LIFETIME-USE SMARTSET# [id number] Completed 06/29/2020, 03/16/2015 COVID-19 Vaccine Completed 07/21/2022, [...] Documents on File Type Date Recorded Patient Capital Equipment Specialist Expl anation POLST 10/15/2019 3:17 PM POLST POLST 03/05/2019 POLST FORM Advance Directives and Living Will 01/27/2013 LIVING WILL Advance Directives and Living Will 01/27/2013 LIVING WILL Power of Sack Maker 01/27/2013 POWER OF A TTORNEY Power of Sack Maker 01/27/2013 POWER OF A TTORNEY Healthcare Agents on File Name Relationship Healthcare Agent Relationship Communication Cydney Benito Other - (no specific identity) Second Alternate Health Care Agent Anyi More Adult Child Health Care Roberth r of Sack Maker Care Teams Truck Leasing Manager Relationship Specialty Start Date End Date Rhys Humphrey MD [address] [place] [address] [place] [address] PCP - General Family Medicine 06/09/21 documented as of this encounter
--- OUTSIDE RECORDS SUMMARY | 2023-08-14 23:30 | External Medical Summary ---
Author Name Unknown Address Unknown Organization K01:[facility] [place] [address] [facility] [id number] Laboratory Report Ordering Provider Test Date Status CARLOS LEVIN 06/07/2023 08:58:39 Beatriz l Observation Date Value Abnormality Reference (Units ) Status SYNC LEUKOCYTES IN BLOOD BY AUTOMATED COUNT 06/07/2023 08:58:39 4.97 4.00-10.80 (K/uL) Final Segs 06/07/2023 08:58:39 54.3 40.0-75.0 (%) Final Lymphs % 06/07/2023 08:58:39 20.1 18.0-42.0 (%) Final Monos 06/07/2023 08:58:39 11.5 Above high normal 1.0-11.0 (%) Final Eosinophils 06/07/2023 08:58:39 12.7 Above high normal 0.0-6.0 (%) Final Basos 06/07/2023 08:58:39 1.2 0.0-2.0 (%) Final Immature Granulocyte, Percent 06/07/2023 08:58:39 0.2 0.0-2.0 (%) Final Absolute Segs 06/07/2023 08:58:39 2.70 1.80-7.70 (K/uL) Final Lymphs, absolute 06/07/2023 08:58:39 1.00 1.00-4.80 (K/ul) Final Monos, Abs 06/07/2023 08:58:39 0.57 0.00-1.10 (K/uL) Final Eos, Abs 06/07/2023 08:58:39 0.63 0.00-0.70 (K/uL) Final Basos, Abs 06/07/2023 08:58:39 0.06 0.00-0.20 (K/uL) Final Immature Granulocytes, Number 06/07/2023 08:58:39 0.01 0.00-0.20 (K/uL) Final Performing Location [facility] [address] [facility] [address]
--- OUTSIDE RECORDS SUMMARY | 2023-08-14 23:30 | External Medical Summary ---
Author Name Unknown Address Unknown Organization K01:[facility] [place] - [facility] [address] [facility] [address] Laboratory Report Ordering Provider Test Date Status CARLOS LEVIN 06/07/2023 08:58:39 Beatriz l Observation Date Value Abnormality Reference (Units ) Status Retic, % (auto) 06/07/2023 08:58:39 3.34 Above high normal 0.80-1.90 (%) Final Reticulocytes, Absolute 06/07/2023 08:58:39 98.2 31.3-100.1 (K/uL) Final Reticulocyte HGB 06/07/2023 08:58:39 24.5 Below low normal 29.7-37.4 (pg) Final Performing Location [facility] - [facility] [address] [facility] [address]
--- OUTSIDE RECORDS SUMMARY | 2023-08-14 23:31 | External Medical Summary | Summary of Care ---
Author Name Unknown Organization [facility] Address [address] [place] [address] Phone [phone] Care Team Providers Care Acid Supervisor Name Role Phone Rhys Humphrey MD Primary Care Provide r Reason for Visit * Reason Onset Date Comments [facility]: Maintenance 05/12/2023 Encounter Details Date Type Department Care Team Description 05/12/2023 Telephone [facility], [facility] [address] [facility] [place] [address] [facility], Nurse [facility] [address] [facility] [place] [address] [facility]: Maintenance Allergies Active Allergy Reactions Severity Noted Date Comments Adhesive Tape Other (Please comment),Hives High 09/29/2008 Caused welts Dextromethorphan-Gua ifenesin Neuro complications (Please comment) Medium 12/23/2021 Feels lightheaded/"foggy" documented as of this encounter (statuses as of 05/14/2023) Medications Medication Sig Dispensed Refills Start Date [...] before bedtime. 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 18 g 5 01/01/2023 Active Montelukast Sodium 10 MG Oral Tablet (Singulair)Indicatio ns:Moderate chronic obstructive pulmonary disease ([facility]) TAKE ONE TABLET BY MOUTH EVERY DAY [...] D, by GOLD 2017 classification ([facility]) Inhale 3 mL via nebulizer every [...] as of this encounter (statuses as of 05/14/2023) Active Problems Problem Noted Date Acute serous [...] as of this encounter (statuses as of 05/14/2023) Resolved Problems Problem Noted Date Resolved Date [...] as of this encounter (statuses as of 05/14/2023) Immunizations Name Administration Dates Next Due COVID-19 mRNA, LNP-s, No Pre serve, 2-Dose Series ([employer]) 07/11/2021,11/14/2020,10/24/2020 Covid-19, Mrna, Lnp-s, Pf, B ivalent, 30 Mcg, IM, 12 yrs and above ([facility]) 07/21/2022 Pneumococcal Conjugate Vacc, 13 Valent (Prevnar) 03/16/2015 Pneumococcal Conjugate Vacci ne, 20-valent ([id number]) 07/21/2022 Pneumococcal Polysaccharide PPV23 (Pneumovax) 03/05/2019,07/18/2007 Seasonal Influenza, Quadriva lent Hd (Fluzone Hd) 06/16/2022,06/08/2021 Seasonal Influenza, Quadriva lent, No Preserve, 6 Mons & Above, IM 06/28/2018,07/28/2017 Seasonal Influenza, Quadriva lent, No Preserve, Adjuvanted, 65+ Yrs, IM 06/16/2020 Seasonal Influenza, Quadriva lent, No Preserve, IM [...] Telephone Encounter - Amy Zaragoza RN - 05/14/2023 7:51 AM EDT Patient submitted to regional vice president life sales for review since she has been stable and is traveling out of state frequently. [facility] milestones met. Will graduate pending senior manager mergers & acquisitions approval. * Telephone Encounter - Estee Verde RN - 05/12/2023 3:19 PM EDT [facility] Telephonic Nurse Follow-Up Call [facility] Subprogram: Focused Care Management (3-9 [...] LEFT VENTRICULAR EJECTION FRACTION Remote Patient Monitoring: [facility] [place] Blood Pressure Cuff: see below Oxygen Needs: NO CHANGE from baseline supplemental oxygen needs DME Needs: NO DME needs identified Medications: No medication or dose adjustments made during acute episode Subjective: Condition Status: Symptoms resolved and back to baseline Current Concerns: Spoke to Keisha, states she took her BP prior to taking any medications, will check BP again whileon the phone with intake nurse BP was 137/53, HR 98. Reports feeling good today, leaving for [place] Sunday. Disposition: Routed to [facility] and/or [facility] Care Team for further advice Future Visits Scheduled: Future Appointments-next 60 days Date/Time Provider Specialty Dept Phone 05/18/2023 10:00 AM [facility] Nurse Triage [facility] [phone] 06/07/2023 8:00 AM (Arrive by 7:45 AM) Rhys Humphrey MD Family Medicine [phone] 06/21/2023 3:00 PM (Arrive by 2:45 PM) Mi Neil PA-C Cardiology [phone] 07/16/2023 2:00 PM (Arrive by 1:45 PM) Shane Rowland MD Gynecology Obstetrics [phone] 09/17/2023 9:40 AM (Arrive by 9:25 AM) Marycruz Almazan PA-C Dermatology [phone] 03/18/2024 9:00 AM Nurse Annual Wellness Movalley Ancillary [phone] Estee Verde RN documented in this encounter Plan of Treatment Upcoming Encounters Date Type Specialty Care Team Description 05/18/2023 Scheduled Telephone [facility] Nurse Triage [address] [place] [address] 06/07/2023 Office Visit Family Medicine Rhys Humphrey MD [address] [place] [address] [place] [address] 06/21/2023 Office Visit Cardiology Mi Neil PA-C [address] [place] [address] 07/16/2023 Office Visit Gynecology Obstetrics Shane Rowland MD [address] [place] [address] 09/17/2023 Office Visit Dermatology Marycruz Almazan PA-C [address] [place] [address] [place] [address] 03/18/2024 Nurse Only Ancillary [place], Nurse Annual Wellness [address] [place] [address] [place] [address] Health Maintenance Due Date Last Done Comments [...] D LEVEL ONCE IN A LIFETIME-USE SMARTSET# [id number] Completed 06/29/2020, 03/16/2015 COVID-19 Vaccine Completed 07/21/2022, [...] Documents on File Type Date Recorded Patient Machine Biller Expl anation POLST 10/15/2019 3:17 PM POLST POLST 03/05/2019 POLST FORM Advance Directives and Living Will 01/27/2013 LIVING WILL Advance Directives and Living Will 01/27/2013 LIVING WILL Power of Trimmer Operator 01/27/2013 POWER OF A TTORNEY Power of Trimmer Operator 01/27/2013 POWER OF A TTORNEY Healthcare Agents on File Name Relationship Healthcare Agent Relationship Communication Cydney Benito Other - (no specific identity) Second Alternate Health Care Agent Anyi More Adult Child Health Care Roberth r of Trimmer Operator Care Teams Acid Supervisor Relationship Specialty Start Date End Date Rhys Humphrey MD [address] [place] [address] [place] [address] PCP - General Family Medicine 06/09/21 documented as of this encounter
--- OUTSIDE RECORDS SUMMARY | 2023-08-14 23:31 | External Medical Summary | Summary of Care ---
Author Name Unknown Organization [facility] Address [address] [place] [address] Phone [phone] Care Team Providers Care Lightning Protection Installer Name Role Phone Rhys Humphrey MD Primary Care Provide r Reason for Visit * Reason Onset Date Comments [facility]: Maintenance 05/22/2023 Encounter Details Date Type Department Care Team Description 05/22/2023 Scheduled Telephone [facility], [facility] [address] [facility] [place] [address] [facility] [place] [address] Allergies Active Allergy Reactions Severity Noted Date Comments Adhesive Tape Other (Please comment),Hives High 09/29/2008 Caused welts Dextromethorphan-Gua ifenesin Neuro complications (Please comment) Medium 12/23/2021 Feels lightheaded/"foggy" documented as of this encounter (statuses as of 05/22/2023) Medications Medication Sig Dispensed Refills Start Date [...] before bedtime. 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 30 Each 11 08/02/2022 Active Fluticasone Furoate 100 MCG/ACT Inhalation Aerosol Powder Breath Activated (ARNUITY ellipta) Inhale by mouth 1 Puff in the morning. In addition to anoro. 30 Each 08/02/2022 Active Benzonatate 100 MG Oral Capsule [...] Base) MCG/ACT Inhalation Aerosol SolutionIndications: COPD, moderate ([facility]) Inhale 2 Puffs by mouth every 4 hours as needed for Cough, Shortness of Breath or Wheezing. 18 g 5 01/01/2023 Active Montelukast Sodium 10 MG Oral Tablet (Singulair)Indicatio ns:Moderate chronic obstructive pulmonary disease ([facility]) TAKE ONE TABLET BY MOUTH EVERY [...] as of this encounter (statuses as of 05/22/2023) Active Problems Problem Noted Date Acute serous [...] atorvastatin History of left hip replacement 06/24/20 Hx of nonmelanoma skin cancer 08/21/2017 Overview: [...] as of this encounter (statuses as of 05/22/2023) Resolved Problems Problem Noted Date Resolved Date [...] as of this encounter (statuses as of 05/22/2023) Immunizations Name Administration Dates Next Due COVID-19 mRNA, LNP-s, No Pre serve, 2-Dose Series ([employer]) 07/11/2021,11/14/2020,10/24/2020 Covid-19, Mrna, Lnp-s, Pf, B ivalent, 30 Mcg, IM, 12 yrs and above ([employer]) 07/21/2022 Pneumococcal Conjugate Vacc, 13 Valent (Prevnar) 03/16/2015 Pneumococcal Conjugate Vacci ne, 20-valent ([id number]) 07/21/2022 Pneumococcal Polysaccharide PPV23 (Pneumovax) 03/05/2019,07/18/2007 Season [...] Telephone Encounter - Estee Verde RN - 05/22/2023 9:12 AM EDT Phone call to patient to see if she is back home after vacation, no answer, left message requestingcall back. Phone call follow up scheduled for 06/06/23 MERNA Johnson Policy Services Representative [facility] documented in this encounter Plan of Treatment Upcoming Encounters Date Type Specialty Care Team Description 06/06/2023 Scheduled Telephone [facility] Nurse Triage [address] [facility] [place] [address] 06/07/2023 Office Visit Family Medicine Rhys Humphrey MD [address] [place] [address] [place] [address] 06/21/2023 Office Visit Cardiology Mi Neil PA-C [address] [place] [address] 07/16/2023 Office Visit Gynecology Obstetrics Shane Rowland MD [address] [place] [address] 09/17/2023 Office Visit Dermatology Marycruz Almazan PA-C [address] [place] [address] [place] [address] 03/18/2024 Nurse Only Ancillary [place], Nurse Annual Wellness [address] [place] [address] [place] [address] Health Maintenance Due Date Last Done Comments [...] D LEVEL ONCE IN A LIFETIME-USE SMARTSET# [id number] Completed 06/29/2020, 03/16/2015 COVID-19 Vaccine Completed 07/21/2022, [...] Documents on File Type Date Recorded Patient Organizational Psychologist Expl anation POLST 10/15/2019 3:17 PM POLST POLST 03/05/2019 POLST FORM Advance Directives and Living Will 01/27/2013 LIVING WILL Advance Directives and Living Will 01/27/2013 LIVING WILL Power of Pay Per Click Strategist 01/27/2013 POWER OF A TTORNEY Power of Pay Per Click Strategist 01/27/2013 POWER OF A TTORNEY Healthcare Agents on File Name Relationship Healthcare Agent Relationship Communication Cydney Benito Other - (no specific identity) Second Alternate Health Care Agent Anyi More Adult Child Health Care Roberth r of Pay Per Click Strategist Care Teams Lightning Protection Installer Relationship Specialty Start Date End Date Rhys Humphrey MD [address] [place] [address] [place] [address] PCP - General Family Medicine 06/09/21 documented as of this encounter
--- OUTSIDE RECORDS SUMMARY | 2023-08-14 23:31 | External Medical Summary | Summary of Care ---
Author Name Unknown Organization [facility] Address [address] [place] [address] Phone [phone] Care Team Providers Care Cost Recorder Name Role Phone Rhys Humphrey MD Primary Care Provide r Reason for Visit * Reason Onset Date Comments [facility]: Maintenance 05/12/2023 Encounter Details Date Type Department Care Team Description 05/12/2023 Telephone [facility], [facility] [address] [facility] [place] [address] [facility], Nurse [facility] [address] [facility] [place] [address] [facility]: Maintenance Allergies Active Allergy Reactions Severity Noted Date Comments Adhesive Tape Other (Please comment),Hives High 09/29/2008 Caused welts Dextromethorphan-Gua ifenesin Neuro complications (Please comment) Medium 12/23/2021 Feels lightheaded/"foggy" documented as of this encounter (statuses as of 05/12/2023) Medications Medication Sig Dispensed Refills Start Date [...] before bedtime. 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 LEAD D, moderate (HCC),COPD, group D, by GOLD [...] ns:Moderate chronic obstructive pulmonary disease ([facility]) TAKE ONE TABLET BY MOUTH EVERY [...] as of this encounter (statuses as of 05/12/2023) Active Problems Problem Noted Date Acute serous [...] as of this encounter (statuses as of 05/12/2023) Resolved Problems Problem Noted Date Resolved Date [...] as of this encounter (statuses as of 05/12/2023) Immunizations Name Administration Dates Next Due COVID-19 mRNA, LNP-s, No Pre serve, 2-Dose Series ([employer]) 07/11/2021,11/14/2020,10/24/2020 Covid-19, Mrna, Lnp-s, Pf, B ivalent, 30 Mcg, IM, 12 yrs and above ([employer]) 07/21/2022 Pneumococcal Conjugate Vacc, 13 Valent (Prevnar) 03/16/2015 Pneumococcal Conjugate Vacci ne, 20-valent ([id number]) 07/21/2022 Pneumococcal Polysaccharide PPV23 (Pneumovax) 03/05/2019,07/18/2007 Seasonal [...] Verde RN - 05/12/2023 3:19 PM EDT [facility] Telephonic Nurse Follow-Up Call [facility] Subprogram: Focused Care Management (3-9 months) [...] LEFT VENTRICULAR EJECTION FRACTION Remote Patient Monitoring: [facility] Blood Pressure Cuff: see below Oxygen Needs: [...] 98. Reports feeling good today, leaving for [place] Sunday. Disposition: Routed to [facility] and/or [facility] at Home Care Team for further advice Future Visits Scheduled: Future Appointments-next 60 days Date/Time Provider Specialty Dept Phone 05/18/2023 10:00 AM [facility] Nurse Triage [facility] at Home [phone] 06/07/2023 8:00 AM (Arrive by 7:45 AM) Rhys Humphrey MD Family Medicine [phone] 06/21/2023 3:00 PM (Arrive by 2:45 PM) Mi Neil PA-C Cardiology [phone] 07/16/2023 2:00 PM (Arrive by 1:45 PM) Shane Rowland MD Gynecology Obstetrics [phone] 09/17/2023 9:40 AM (Arrive by 9:25 AM) Marycruz Almazan PA-C Dermatology [phone] 03/18/2024 9:00 AM Nurse Annual Wellness [facility] [phone] Estee Verde RN documented in this encounter Plan of Treatment Upcoming Encounters Date Type Specialty Care Team Description 05/18/2023 Scheduled Telephone [facility] Nurse Triage [address] [place] [address] 06/07/2023 Office Visit Family Medicine Rhys Humphrey MD [address] [place] [address] [place] [address] 06/21/2023 Office Visit Cardiology Mi Neil PA-C [address] [place] [address] 07/16/2023 Office Visit Gynecology Obstetrics Shane Rowland MD [address] [place] [address] 09/17/2023 Office Visit Dermatology Marycruz Almazan PA-C [address] [place] [address] [place] [address] 03/18/2024 Nurse Only Ancillary [place], Nurse Annual Wellness [address] [place] [address] [place] [address] Health Maintenance Due Date Last Done Comments [...] D LEVEL ONCE IN A LIFETIME-USE SMARTSET# [id number] Completed 06/29/2020, 03/16/2015 COVID-19 Vaccine Completed 07/21/2022, [...] on File Type Date Recorded Patient Health Concierge Expl anation POLST 10/15/2019 3:17 PM POLST POLST 03/05/2019 POLST FORM Advance Directives and Living Will 01/27/2013 LIVING WILL Advance Directives and Living Will 01/27/2013 LIVING WILL Power of Mine Analyst 01/27/2013 POWER OF A TTORNEY Power of Mine Analyst 01/27/2013 POWER OF A TTORNEY Healthcare Agents on File Name Relationship Healthcare Agent Relationship Communication Cydney Benito Other - (no specific identity) Second Alternate Health Care Agent Anyi More Adult Child Health Care Roberth cooper of Mine Analyst Care Teams Cost Recorder Relationship Specialty Start Date End Date Rhys Humphrey MD [address] [place] [address] [place] [address] PCP - General Family Medicine 06/09/21 documented as of this encounter
--- OUTSIDE RECORDS SUMMARY | 2023-08-14 23:31 | External Medical Summary | Summary of Care ---
Author Name Unknown Organization [facility] Address [address] [place] [address] Phone [phone] Care Team Providers Care Precision Machine Operator Name Role Phone Rhys Humphrey MD Primary Care Provide r Reason for Visit * Reason Onset Date Comments [facility]: Maintenance 05/14/2023 Encounter Details Date Type Department Care Team Description 05/14/2023 Telephone [facility], [facility] [address] [facility] [place] [id number] [facility], Nurse [facility] [address] [facility] [place] [address] [facility]: Maintenance Allergies Active Allergy [...] before bedtime. 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 18 g 5 01/01/2023 Active Montelukast Sodium 10 MG Oral Tablet (Singulair)Indicatio ns:Moderate chronic obstructive pulmonary disease ([facility]) TAKE ONE TABLET BY MOUTH EVERY [...] mRNA, LNP-s, No Pre serve, 2-Dose Series (Dep-Xplora) 07/11/2021,11/14/2020,10/24/2020 Covid-19, Mrna, Lnp-s, Pf, B ivalent, 30 Mcg, IM, 12 yrs and above (Dep-Xplora) 07/21/2022 Pneumococcal Conjugate Vacc, 13 Valent (Prevnar) 03/16/2015 Pneumococcal Conjugate Vacci ne, 20-valent ([id number]) 07/21/2022 Pneumococcal Polysaccharide PPV23 (Pneumovax) 03/05/2019,07/18/2007 Seasonal [...] encounter Miscellaneous Notes * Telephone Encounter - Kyra Gallagher LPN - 05/14/2023 9:28 AM EDT Images from the original note were not included. [facility] Telephonic Nurse Follow-Up Call [facility] Subprogram: Focused Care Management (3-9 months) [...] LEFT VENTRICULAR EJECTION FRACTION Remote Patient Monitoring: [facility] Blood Pressure Cuff: 114/57 Oxygen Needs: NO CHANGE from baseline supplemental oxygen needs DME Needs: NO DME needs identified Medications: No medication or dose adjustments made during acute episode Subjective: Condition Status: No change in symptoms Current Concerns: Call to patient and got vm. Left message to call back to [facility] Disposition: Left msg to call back. Future Visits Scheduled: Future Appointments-next 60 days Date/Time Provider Specialty Dept Phone 05/18/2023 10:00 AM [facility] Nurse Triage [facility] at Home [phone] 06/07/2023 8:00 AM (Arrive by 7:45 AM) Rhys Humphrey MD Family Medicine [phone] 06/21/2023 3:00 PM (Arrive by 2:45 PM) Mi Neil PA-C Cardiology [phone] 07/16/2023 2:00 PM (Arrive by 1:45 PM) Shane Rowland MD Gynecology Obstetrics [phone] 09/17/2023 9:40 AM (Arrive by 9:25 AM) Marycruz Almazan PA-C Dermatology [phone] 03/18/2024 9:00 AM Nurse Annual Wellness [facility] Ancillary [phone] Kyra Gallagher LPN documented in this encounter Plan of Treatment Upcoming Encounters Date Type Specialty Care Team Description 05/18/2023 Scheduled Telephone [facility] Nurse Triage [address] [place] [address] 06/07/2023 Office Visit Family Medicine Rhys Humphrey MD [address] [place] [address] [place] [address] 06/21/2023 Office Visit Cardiology iM Neil PA-C [address] [place] [address] 07/16/2023 Office Visit Gynecology Obstetrics Shane Rowland MD [address] [place] [address] 09/17/2023 Office Visit Dermatology Marycruz Almazan PA-C [address] [place] [address] [place] [address] 03/18/2024 Nurse Only Ancillary Movalley, Nurse Annual Wellness [address] [place] [address] [place] [address] Health Maintenance Due Date Last Done Comments [...] D LEVEL ONCE IN A LIFETIME-USE SMARTSET# [id number] Completed 06/29/2020, 03/16/2015 COVID-19 Vaccine Completed 07/21/2022, [...] Documents on File Type Date Recorded Patient Software Developer Manager Expl anation POLST 10/15/2019 3:17 PM POLST POLST 03/05/2019 POLST FORM Advance Directives and Living Will 01/27/2013 LIVING WILL Advance Directives and Living Will 01/27/2013 LIVING WILL Power of Drain Technician 01/27/2013 POWER OF A TTORNEY Power of Drain Technician 01/27/2013 POWER OF A TTORNEY Healthcare Agents on File Name Relationship Healthcare Agent Relationship Communication Cydney Benito Other - (no specific identity) Second Alternate Health Care Agent Anyi More Adult Child Health Care Roberth r of Drain Technician Care Teams Precision Machine Operator Relationship Specialty Start Date End Date Rhys Humphrey MD [address] [place] [address] [place] [phone] PCP - General Family Medicine 06/09/21 documented as of this encounter
--- OUTSIDE RECORDS SUMMARY | 2023-08-14 23:31 | External Medical Summary | Summary of Care ---
Author Name Unknown Organization [facility] Address [address] [place] [address] Phone [phone] Care Team Providers Care Mining Consultant Name Role Phone Rhys Humphrey MD Primary Care Provide r Reason for Visit * Reason Onset Date Comments Test Results 04/19/2023 Encounter Details Date Type Department Care Team Description 04/19/2023 Telephone Family Medicine [address] [phone] Rhys Humphrey MD [address] [place] [address] [place] [address] Test Results Allergies Active Allergy Reactions Severity Noted Date Comments Adhesive Tape Other (Please comment),Hives High 09/29/2008 Caused welts Dextromethorphan-Gua ifenesin Neuro complications (Please comment) Medium 12/23/2021 Feels lightheaded/"foggy" documented as of this encounter (statuses as of 04/30/2023) Medications Medication Sig Dispensed Refills Start Date [...] before bedtime. 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),COPD, group D, by GOLD [...] ns:Moderate chronic obstructive pulmonary disease ([facility]) TAKE ONE TABLET BY MOUTH EVERY [...] as of this encounter (statuses as of 04/30/2023) Active Problems Problem Noted Date Acute serous [...] as of this encounter (statuses as of 04/30/2023) Resolved Problems Problem Noted Date Resolved Date [...] as of this encounter (statuses as of 04/30/2023) Immunizations Name Administration Dates Next Due COVID-19 mRNA, LNP-s, No Pre serve, 2-Dose Series (Dr [employer]) 07/11/2021,11/14/2020,10/24/2020 Covid-19, Mrna, Lnp-s, Pf, B ivalent, 30 Mcg, IM, 12 yrs and above ([employer] [facility] [employer]) 07/21/2022 Pneumococcal Conjugate Vacc, 13 Valent (Prevnar) 03/16/2015 Pneumococcal Conjugate Vacci ne, 20-valent ([id number]) 07/21/2022 Pneumococcal Polysaccharide PPV23 (Pneumovax) 03/05/2019,07/18/2007 Seasonal [...] encounter Miscellaneous Notes * Telephone Encounter - Edwige Mulligan RN - 04/30/2023 3:49 PM EDT I attempted to call pt again, I mailed her a letter * Telephone Encounter - Tiffanie Murrell CMA - 04/25/2023 10:59 AM EDT I left her a message. If she calls back in please transfer to WINDOW DECORATOR triage for results at [phone]. * Telephone Encounter - ISELA Velasquez - 04/25/2023 7:44 AM EDT Patient called in returning call. Would like a call back to discuss. * Telephone Encounter - Edwige Mulligan RN - 04/24/2023 4:47 PM EDT Left another message for pt to call us. * Telephone Encounter - Tiffanie Murrell CMA - 04/20/2023 10:30 AM EDT Provider to address:I called the patient and left a message to call back [phone]. Reason for Call: Test Results Contact: Telephone Call Contact Type: Test Results Outcome: Please transfer to [phone] Total Time including non face to face (minutes): 5 * Telephone Encounter - Morris Murrieta MD - 04/19/2023 4:24 PM EDT It showed pulmonary emphysema, but no active disease. A chest CT done a couple of years ago also showed chronic lung disease * Telephone Encounter - Liana Salamanca LPN - 04/19/2023 11:13 AM EDT Provider to address: Rhys Humphrey MD Reason for Call: Test Results Contact: Telephone Call Contact Type: Test Results Outcome: Patient calling in requesting the results of her chest x-ray done on 04/16. Final report in chart. Please review. Total Time including non face to face (minutes): 5 documented in this encounter Plan of Treatment Upcoming Encounters Date Type Specialty Care Team Description 05/03/2023 Imaging Radiology 05/10/2023 Scheduled Telephone [facility] JozefAmy, RN [address] [place] [address] 06/07/2023 Office Visit Family Medicine Rhys Humphrey MD [address] [place] [address] [place] [address] 06/21/2023 Office Visit Cardiology Mi Neil PA-C [address] [place] [address] 07/16/2023 Office Visit Gynecology Obstetrics Shane Rowland MD [address] [place] [address] 09/17/2023 Office Visit Dermatology Marycruz Almazan PA-C [address] [place] [address] [place] [address] 03/18/2024 Nurse Only Ancillary [place]oval[place], Nurse Annual Wellness [address] [place] [address] [place] [address] Health Maintenance Due Date Last Done Comments [...] D LEVEL ONCE IN A LIFETIME-USE SMARTSET# [id number] Completed 06/29/2020, 03/16/2015 COVID-19 Vaccine Completed 07/21/2022, [...] on File Type Date Recorded Patient Supervisor Refractory Products Expl anation POLST 10/15/2019 3:17 PM POLST POLST 03/05/2019 POLST FORM Advance Directives and Living Will 01/27/2013 LIVING WILL Advance Directives and Living Will 01/27/2013 LIVING WILL Power of Valve Seater Operator 01/27/2013 POWER OF A TTORNEY Power of Valve Seater Operator 01/27/2013 POWER OF A TTORNEY Healthcare Agents on File Name Relationship Healthcare Agent Relationship Communication Cydney Benito Other - (no specific identity) Second Alternate Health Care Agent Anyi More Adult Child Health Care Roberth r of Valve Seater Operator Care Teams Mining Consultant Relationship Specialty Start Date End Date Rhys Humphrey MD [address] [place] [address] [place] [phone] PCP - General Family Medicine 06/09/21 documented as of this encounter
--- OUTSIDE RECORDS SUMMARY | 2023-08-14 23:31 | External Medical Summary | Summary of Care ---
Author Name Unknown Organization [facility] Address [address] [place] [address] Phone [phone] Care Team Providers Care Sheet Metal Contractor Name Role Phone Rhys Humphrey MD Primary Care Provide r Reason for Visit * Reason Onset Date Comments [facility]: Maintenance 05/10/2023 Encounter Details Date Type Department Care Team Description 05/10/2023 Scheduled Telephone [facility], [facility] [address] [place] [address] Amy Zaragoza RN [address] [place] [address] Allergies Active Allergy Reactions Severity Noted Date Comments Adhesive Tape Other (Please comment),Hives High 09/29/2008 Caused welts Dextromethorphan-Gua ifenesin Neuro complications (Please comment) Medium 12/23/2021 Feels lightheaded/"foggy" documented as of this encounter (statuses as of 05/11/2023) Medications Medication Sig Dispensed Refills Start Date [...] before bedtime. 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 18 g 5 01/01/2023 Active Montelukast Sodium 10 MG Oral Tablet (Singulair)Indicatio ns:Moderate chronic obstructive pulmonary disease ([facility]) TAKE ONE TABLET BY MOUTH EVERY [...] as of this encounter (statuses as of 05/11/2023) Active Problems Problem Noted Date Acute serous [...] as of this encounter (statuses as of 05/11/2023) Resolved Problems Problem Noted Date Resolved Date [...] as of this encounter (statuses as of 05/11/2023) Immunizations Name Administration Dates Next Due COVID-19 mRNA, LNP-s, No Pre serve, 2-Dose Series ([employer]) 07/11/2021,11/14/2020,10/24/2020 Covid-19, Mrna, Lnp-s, Pf, B ivalent, 30 Mcg, IM, 12 yrs and above ([employer]) 07/21/2022 Pneumococcal Conjugate Vacc, 13 Valent (Prevnar) 03/16/2015 Pneumococcal Conjugate Vacci ne, 20-valent ([id number]) 07/21/2022 Pneumococcal Polysaccharide PPV23 (Pneumovax) 03/05/2019,07/18/2007 Seasonal [...] Telephone Encounter - Amy Zaragoza RN - 05/11/2023 12:05 PM EDT Attempted to reach patient today to touch base and see if she has returned from vacation. Weight reading came through on [facility] [place] [place]. No answer. Will schedule follow up visit and plan to graduate soon if stable. Sent to regional controller for review. [facility] Graduation Progress Episode Start Date: Noted: 07/31/2022 [facility] Cohort: Focused Care Management (3-9 months) Active [facility] Care Team opto mechanical engineer, Advanced Practice Provider, [facility] Sewing Machine Mechanic Updated: 02/14/2023 7:14 AM Active [facility] Services No data was found Additional Information: No data was found Updated: 02/14/2023 7:14 AM Clinical Utilization No unanticipated acute utilization for a minimum of 2 months: Met No home-based advanced interventions for a minimum of 1 month: Met Additional Information: TCAR 07/26/22 Updated: 02/14/2023 7:14 AM Self-Management and Exacerbation Planning "Red Flags" identified with EHR documentation, patient education, and teach back: Met "Self-Management Plan" identified with EHR documentation, patient education, and teach back: Met "Exacerbation Plan" identified with EHR documentation, patient education, and teach back: Met Additional Information: No data was found Updated: 02/14/2023 7:14 AM Social Determinants of Health SDoH identified, documented in the EHR and solution(s) in place: Met Additional Information: No data was found Updated: 02/14/2023 7:15 AM Patient-Centered Communication ACP Activity: Met ACP Note: Met Advanced Directive documents up-to-date and scanned in the EHR: Met Additional Information: No data was found Updated: 02/14/2023 7:15 AM Care Coordination Remote Patient Monitoring in place and transition communicated: Met Medication List up-to-date and adequate supply in the home: Met PCP and relevant Specialty appointments scheduled: Met Additional Information: No data was found Updated: 02/14/2023 7:15 AM documented in this encounter Plan of Treatment Upcoming Encounters Date Type Specialty Care Team Description 05/18/2023 Scheduled Telephone [facility] Nurse Triage [address] [place] [address] 06/07/2023 Office Visit Family Medicine Rhys Humphrey MD [address] [place] [address] [place] [address] 06/21/2023 Office Visit Cardiology Mi Neil PA-C [address] [place] [address] 07/16/2023 Office Visit Gynecology Obstetrics Janett, Shane, MD [address] [place] [address] 09/17/2023 Office Visit Dermatology Marycruz Almazan PA-C [address] [place] [address] [place] [address] 03/18/2024 Nurse Only Ancillary Movalley, Nurse Annual Wellness [address] [place] [address] [place] [address] Health Maintenance Due Date Last Done Comments [...] D LEVEL ONCE IN A LIFETIME-USE SMARTSET# [id number] Completed 06/29/2020, 03/16/2015 COVID-19 Vaccine Completed 07/21/2022, [...] Documents on File Type Date Recorded Patient Communications Strategist Expl anation POLST 10/15/2019 3:17 PM POLST POLST 03/05/2019 POLST FORM Advance Directives and Living Will 01/27/2013 LIVING WILL Advance Directives and Living Will 01/27/2013 LIVING WILL Power of Agricultural Adviser 01/27/2013 POWER OF A TTORNEY Power of Agricultural Adviser 01/27/2013 POWER OF A TTORNEY Healthcare Agents on File Name Relationship Healthcare Agent Relationship Communication Cydney Benito Other - (no specific identity) Second Alternate Health Care Agent Anyi More Adult Child Health Care Roberth r of Agricultural Adviser Care Teams Sheet Metal Contractor Relationship Specialty Start Date End Date Rhys Humphrey MD [address] [place] [address] [place] [address] PCP - General Family Medicine 06/09/21 documented as of this encounter
--- OUTSIDE RECORDS SUMMARY | 2023-08-14 23:31 | External Medical Summary | Summary of Care ---
Author Name Unknown Organization [facility] Address [address] [place] [address] Phone [phone] Care Team Providers Care Large Animal Veterinarian Name Role Phone Rhys Humphrey MD Primary Care Provide r Reason for Visit * Reason Onset Date Comments [facility]: Maintenance 04/24/2023 Encounter Details Date Type Department Care Team Description 04/24/2023 Telephone [facility], [facility] [address] [facility] [place] [address] [facility], Nurse [facility] [address] [facility] [place] [address] [facility]: Maintenance Allergies Active Allergy Reactions Severity Noted Date Comments Adhesive Tape Other (Please comment),Hives High 09/29/2008 Caused welts Dextromethorphan-Gua ifenesin Neuro complications (Please comment) Medium 12/23/2021 Feels lightheaded/"foggy" documented as of this encounter (statuses as of 04/24/2023) Medications Medication Sig Dispensed Refills Start Date [...] before bedtime. 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 18 g 5 01/01/2023 Active Montelukast Sodium 10 MG Oral Tablet (Singulair)Indicatio ns:Moderate chronic obstructive pulmonary disease ([facility]) TAKE ONE TABLET BY MOUTH EVERY [...] as of this encounter (statuses as of 04/24/2023) Active Problems Problem Noted Date Acute serous [...] as of this encounter (statuses as of 04/24/2023) Resolved Problems Problem Noted Date Resolved Date [...] as of this encounter (statuses as of 04/24/2023) Immunizations Name Administration Dates Next Due COVID-19 mRNA, LNP-s, No Pre serve, 2-Dose Series ([place]) 07/11/2021,11/14/2020,10/24/2020 Covid-19, Mrna, Lnp-s, Pf, B ivalent, 30 Mcg, IM, 12 yrs and above ([place]) 07/21/2022 Pneumococcal Conjugate Vacc, 13 Valent (Prevnar) 03/16/2015 Pneumococcal Conjugate Vacci ne, 20-valent (Punovnh03) 07/21/2022 Pneumococcal Polysaccharide PPV23 (Pneumovax) 03/05/2019,07/18/2007 Seasonal [...] encounter Miscellaneous Notes * Telephone Encounter - Kacey Holly RN - 04/24/2023 9:50 AM EDT Phone call from patient requesting CXR results from 04/16, states she was told to call [facility] for same.Per chart review, CXR reviewed by PCP. It showed pulmonary emphysema, no active disease. Patient made aware of same. Patient states [place] the [place]. Denies any acute concerns today. Will call [facility] back with any issues/concerns. Kacey Holly RN, BSN [facility] restorative coordinator Navigator [phone] documented in this encounter Plan of Treatment Upcoming Encounters Date Type Specialty Care Team Description 05/03/2023 Imaging Radiology 05/10/2023 Scheduled Telephone [facility] Amy Zaragoza, RAYNA [address] [place] [id number] 06/07/2023 Office Visit Family Medicine Rhys Humphrey MD [address] [place] [address] [place] [id number] 06/21/2023 Office Visit Cardiology Mi Neil PA-C [address] [place] [address] 07/16/2023 Office Visit Gynecology Obstetrics Shane Rowland MD [address] [place] [id number] 09/17/2023 Office Visit Dermatology Marycruz Almazan PA-C [address] [place] [address] [place] [phone] 03/18/2024 Nurse Only Ancillary [place], Nurse [facility] [address] [place] [address] [place] [id number] Health Maintenance Due Date Last Done Comments [...] D LEVEL ONCE IN A LIFETIME-USE SMARTSET# [id number] Completed 06/29/2020, 03/16/2015 COVID-19 Vaccine Completed 07/21/2022, [...] Documents on File Type Date Recorded Patient Investigations Director Expl anation POLST 10/15/2019 3:17 PM POLST POLST 03/05/2019 POLST FORM Advance Directives and Living Will 01/27/2013 LIVING WILL Advance Directives and Living Will 01/27/2013 LIVING WILL Power of Flat Bed Knitter 01/27/2013 POWER OF A TTORNEY Power of Flat Bed Knitter 01/27/2013 POWER OF A TTORNEY Healthcare Agents on File Name Relationship Healthcare Agent Relationship Communication Cydney Benito Other - (no specific identity) Second Alternate Health Care Agent Anyi More Adult Child Health Care Roberth r of Flat Bed Knitter Care Teams Large Animal Veterinarian Relationship Specialty Start Date End Date Rhys Humphrey MD [address] [place] [address] [place] [id number] PCP - General Family Medicine 06/09/21 documented as of this encounter
--- OUTSIDE RECORDS SUMMARY | 2023-08-14 23:31 | External Medical Summary | Summary of Care ---
Author Name Unknown Organization [facility] Address [address] [place] [address] Phone [phone] Care Team Providers Care Overhead Irrigator Name Role Phone Rhys Humphrey MD Primary Care Provide r Reason for Visit * Reason Comments [facility]: Telehealth Encounter Details Date Type Department Care Team Description 04/13/2023 Telemedicine [facility] [place] [address] [place] [address] Denise Do PA-C [address] [place] [address] Marlen Strange [address] [place] [address] COPD, group D, by GOLD 2017 classification ([facility])*; Hypertensive heart disease with chronic diastolic congestive heart failure (HCC); 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 50 Cap 0 01/18/2021 Active Xdhdevz-Vkayjzkxg-Kk nc 333-133-5 MG Oral Tablet Take by [...] MCG/INH Inhalation Aerosol Powder Breath Activated (umeclidinium-vilant ed)Indications:COIL FORMER D, moderate (HCC),COPD, group D, by GOLD [...] mouth daily. 180 Tablet 1 04/11/2023 Active predniSONE 20 MG Oral Tablet (Deltasone) Take 2 Tablets by mouth in the morning for 5 days. 10 Tablet 1 04/09/2023 3 documented as of this encounter (statuses as of 04/15/2023) Active Problems Problem Noted Date Acute serous [...] as of this encounter (statuses as of 04/15/2023) Resolved Problems Problem Noted Date Resolved Date [...] as of this encounter (statuses as of 04/15/2023) Immunizations Name Administration Dates Next Due COVID-19 mRNA, LNP-s, No Pre serve, 2-Dose Series ([employer]) 07/11/2021,11/14/2020,10/24/2020 Covid-19, Mrna, Lnp-s, Pf, B ivalent, 30 Mcg, IM, 12 yrs and above ([employer]) 07/21/2022 Pneumococcal Conjugate Vacc, 13 Valent (Prevnar) 03/16/2015 Pneumococcal Conjugate Vacci ne, 20-valent ([employer]) 07/21/2022 Pneumococcal Polysaccharide PPV23 (Pneumovax) 03/05/2019,07/18/2007 Seasonal [...] Sign Reading Time Taken Comments Blood Pressure 140/52 04/13/2023 3:30 PM EDT Pulse 88 04/13/2023 3:30 PM EDT Temperature 36.3 C (97.3 F) 04/13/2023 3:30 PM ED T Respiratory Rate 24 04/13/2023 3:30 PM EDT Oxygen Saturation 90% 04/13/2023 3:30 PM EDT Inhaled Oxygen Concentration - - Weight - - Height - - Body Mass Index - - documented in this encounter Progress Notes * Marlen Strange, Community Health Director Child - 04/13/2023 3:56 PM EDT Community Health Director Child Visit Date: 04/13/2023 Time: 3:56 PM Name: Keisha Linares : 1940 Referral Source: wind farm operations manager Source of Information: Patient Spoken language: Bahamian Patient can read in Bahamian: Yes. Manufacturing Industrial Engineer needed: No. COVID-19 screening completed: Yes Vitals: Vital signs completed: Yes, abnormal values, escalated to nurse/provider: low O2 and somewhat SOB BP 140/52 (BP Site: Right Arm, BP Position: Sitting, BP Cuff Size: Regular) | Pulse 88 | Temp 36.3 C (97.3 F) | Resp 24 | SpO2 90% Condition Changes: Changes in health or social status since last visit: [facility] return telemed Observed patient to seem SOB. Coughing off and on through visit. Observed thick, yellow sputum. Made provider aware. The patient has new concerns since last visit: No Progress towards goals since last visit: Continues traveling and living independently. Medications: Medication review completed? No, Does the patient have barriers to medication adherence? No. Patient reports difficulty paying for medications or might in the future: No. Telehealth: This is a telehealth visit: Yes. Type of telehealth visit: Return/Routine Visit conducted with: Physician/AP Symptoms Surveys and Evaluations: MAHC10 completed this visit: Yes. Score is 4 or more? Yes, notified Provider/Gate Clerk Last flowsheet values for MAHC10: Age 65+: 1 (04/13/2023 3:00 PM) Diagnosis (3 or more co-existing): 1 (04/13/2023 3:00 PM) Prior history of falls within 3 months: 0 (04/13/2023 3:00 PM) Incontinence: 1 (04/13/2023 3:00 PM) Visual impairment: 1 (04/13/2023 3:00 PM) Impaired functional mobility: 1 (04/13/2023 3:00 PM) Environmental hazards: 0 (04/13/2023 3:00 PM) Poly Pharmacy (4 or more prescriptions - any type): 1 (04/13/2023 3:00 PM) Pain affecting level of function: 0 (04/13/2023 3:00 PM) Cognitive impairment: 0 (04/13/2023 3:00 PM) Score - a score of 4 or more is considered at risk for fallin (04/13/2023 3:00 PM) COPD Checklist COPD JOE (Community Health Director Child) Checklist The patient uses oxygen: Yes Tanks are stored: Not applicable Compressor located away from anything flammable: Yes Oxygen tubing: - Clean and in good repair: Yes - Reached out to Durable Medical Equipment supplier for replacement tubing: No, na - Referred to Gate Clerk for additional in-home respiratory assessment: No, na - Other: Na Describe how the patient manages going out with oxygen: Takes frequent rest breaks - has a rechargeable concentrator she purchased from a [employer], but rarely uses. - Referred to Gate Clerk for portable oxygen order: No - Coordinated portable oxygen tanks with Durable Medical Equipment supplier: No The patient uses a nebulizer: Yes Describe how the patient uses their nebulizer: Demonstrated using the nebulizer and appeared to understand. yes Describe how the patient cleans the nebulizer (including the filter): Patient demonstrated cleaning and appeared to understand. The patient uses an inhaler: Yes Describe how the patient uses the inhaler: Patient demonstrated using the inhaler and appeared to understand. Describe how the patient cleans the inhaler: Patient demonstrated cleaning and appeared to understand. Frequency of inhaler use: Daily as per order and PRN COPD Assessment Test (CAT) completed this visit: Yes Last flowsheet values for COPD Assessment Test (CAT): How often do you cough?: 3 (04/13/2023 4:00 PM) Do you have phlegm (mucus) in your chest at all? : 2 (04/13/2023 4:00 PM) Does your chest feel tight?: 0 (04/13/2023 4:00 PM) How out of breath are you when you walk up a hill or flight of stairs?: 2 (04/13/2023 4:00 PM) How limited are you doing any activities at home?: 0 (04/13/2023 4:00 PM) [id number])@How soundly do you sleep?: 3 (04/13/2023 4:00 PM) How much energy do you have?: 0 (04/13/2023 4:00 PM) CAT Total Score: 14 (04/13/2023 4:00 PM) Plan: Reinforced patient's three red flags by the care team 1. Requiring oxygen more than just at night 2. Coughing up green, yellow , thick mucous 3. Swelling in legs/feet Patient was ordered prednisone 04/09 - quantity 10 tabs. Assisted patient in counting pills - 10 remain in the bottle. Made provider aware. Encouraged patient to take neb tx, rescue inhaler, and prednisone with her. Patient has a rechargeable portable O2 concentrator. Encouraged patient to take this with her as well. Recommend referral for portable O2 concentrator - this would not be delivered in time for patient'supcomming trip. However, would be a good consideration for future use. Encouraged patient to go for CXR Sunday AM before she leaves for her trip. Suggested to research prior to leaving location of pharmacies and hospitals in the cities she will be visiting. Follow Up: Patient encouraged to call the intake phone number for all urgent but not emergent issues. Scheduled to follow up with patient in PRN. [facility] 04/13/2023 3:56 PM * Denise Do PA-C - 04/13/2023 2:12 PM EDT Images from the original note were not included. [facility] Problem Oriented Charting Provider Visit Date: 04/13/2023 Time: 2:14 PM [facility] Sub-Program: Focused Care Management (3-9 months) [facility] Episode Start Date: Noted: 07/31/2022 Assessment and Plan #1 COPD, group D, by GOLD 2017 classification ([facility]) Overview: Per COPD GOLD Classification Assessment & Plan: Current Status : Stable Degree of Condition Awareness: Demonstrates very good awareness of condition, disease course, and prognosis "RED FLAG" COPD symptoms: o Increased dyspnea on exertion ("I can't walk to the kitchen or up the stairs without coughing andwheezing", "My chest feels tight any time I move") o Increased shortness of breath at rest ("I struggle to breathe even when watching TV", "I have to wear or turn up my oxygen just when I'm sitting on the couch") Medication Regimen o Other: anoro, arnuity, singulair, duonebs Self-Management plan o Pt will begin taking Prednisone 20mg once daily x 5 days. o High frequency nebulizer treatments every 4-6 hours around the clock. Assured that pt has enough Duonebs to last her the entire month that she will be gone. 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 She is certain that it makes her sick. I suggested that she take 20mg with her biggest meal of the day. She has agreed. She isnot able to get CXR before she leaves on her trip. She was advised to take all medications with her, including her nebulizer compressor. Scheduled appointments in the next 60 days: Future Appointments-next 60 days Date/Time Provider Specialty Dept Phone 04/13/2023 3:30 PM Marlen Strange, [facility] Health Director Child; Denise Do PA-C [facility] [phone] 05/03/2023 9:[address] [facility] Radiology [phone] 05/10/2023 9:00 AM Amy Zaragoza RN [facility] [phone] 06/07/2023 8:00 AM (Arrive by 7:45 AM) Rhys Humphrey MD Family Medicine [phone] 06/21/2023 3:00 PM (Arrive by 2:45 PM) Mi Neil PA-C Cardiology [phone] 09/17/2023 9:40 AM (Arrive by 9:25 AM) Marycruz Almazan PA-C Dermatology [phone] 03/18/2024 9:00 AM [facility] [phone] A total of 45 minutes was spent face to face (via video-based telemedicine if designated as a telemedicine visit) Subjective Subjective Is this a Telemedicine Visit? Yes, Patient location: HOME. I was not in a hospital or clinic location. After connecting through televideo, patient was verified with two unique identifiers. Patient (or authorized legal insurance account representative) was then informed that this was a Telemedicine visit and being conducted confidentially over secure lines. Methods to assure confidentiality were taken. Patient acknowledged consent and understanding of privacy and security of the Telemedicine visit. The patient agreed to participate. Reason For [facility] Visit: Follow-Up Current Concerns: Keisha Linares is a 82 year old female seen today for a [facility] provider visit. Pt was seen by RNCM 4 days ago for chest congestion with white, thick sputum. Was having some increasedSOB and wheezing not relieved by duonebs. A rescue kit of prednisone was prescribed and duoneb and tessalon perles were re-ordered. Today JOE TT and said that pt was wheezing and was visibly SOB. Pt s tates that she feels fine. She doesn't feel any more SOB than normal. She states that she went up and down in the elevator at her high rise 3 times before JOE got there. Pt states that she took one day of the prednisone that was prescribed and got sick so she quit taking them. This is the second occurrence where she has gotten sick on prednisone. When JOE counted prednisone, pt still have the original 10 in the bottle. Pt now isn't sure what she took. She has been using her Duonebs nebulizers 4times daily. Pt has no complaints today. She denies chest discomfort, cough, fever, chills, wheezing, leg swelling. She is traveling to [facility] to visit her brother in 2 days. She will be in [facility] for a month. She has COPD, CHF, HTN and follicular lymphoma. Additional Review of Systems Psychiatric/Behavioral: Positive for sleep disturbance. All other systems reviewed and are negative. Objective Objective Vitals: 04/13/23 1530 Temp: 36.3 C (97.3 F) Pulse: 88 Resp: 24 SpO2: 90% BP: 140/52 Wt Readings from Last 3 Encounters: 03/16/23 66.2 kg (146 lb) 03/16/23 66.6 kg (146 lb 12.8 oz) 02/01/23 76.9 kg (169 lb 9.6 oz) Last Weights: Wt Readings from Last 3 Encounters: 03/16/23 66.2 kg (146 lb) 03/16/23 66.6 kg (146 lb 12.8 oz) 02/01/23 76.9 kg (169 lb 9.6 oz) Last BPs: BP Readings from Last 4 Encounters: 04/13/23 140/52 04/09/23 120/60 03/16/23 124/52 03/16/23 124/52 Physical Exam Constitutional: General: She is not in acute distress. Appearance: Normal appearance. She is normal weight. She is not ill-appearing, toxic-appearing or diaphoretic. HENT: Head: Normocephalic and atraumatic. Right Ear: External ear normal. Left Ear: External ear normal. Nose: Nose normal. Mouth/Throat: Mouth: Mucous membranes are moist. Eyes: General: No scleral icterus. Right eye: No discharge. Left eye: No discharge. Extraocular Movements: Extraocular movements intact. Conjunctiva/sclera: Conjunctivae normal. Cardiovascular: Rate and Rhythm: Normal rate and regular rhythm. Pulses: Normal pulses. Heart sounds: Murmur heard. No friction rub. No gallop. Pulmonary: Effort: Pulmonary effort is normal. No respiratory distress. Breath sounds: Normal breath sounds. No stridor. No wheezing, rhonchi or rales. Comments: Diminished right base Chest: Chest wall: No tenderness. Abdominal: General: Abdomen is flat. There is no distension. Palpations: Abdomen is soft. There is no mass. Tenderness: There is no abdominal tenderness. There is no right CVA tenderness, left CVA tendernessor guarding. Musculoskeletal: General: No swelling, tenderness, deformity or signs of injury. Normal range of motion. Cervical back: Neck supple. Right lower leg: No edema. Left lower leg: No edema. Skin: General: Skin is warm and dry. Capillary Refill: Capillary refill takes less than 2 seconds. Coloration: Skin is not jaundiced or pale. Findings: No bruising, erythema, lesion or rash. Neurological: Mental Status: She is alert and oriented to person, place, and time. Cranial Nerves: No cranial nerve deficit. Sensory: No sensory deficit. Motor: No weakness. Coordination: Coordination normal. Gait: Gait normal. Deep Tendon Reflexes: Reflexes normal. Psychiatric: Mood and Affect: Mood normal. Behavior: Behavior normal. Thought Content: Thought content normal. Judgment: Judgment normal. Lab Review: I have reviewed the following results: BMP results Recent Labs Units 09/26/22 1606 04/28/22 0923 03/22/22 1334 10/11/21 0811 SODIUM - [facility] mmol/L 141 139 -- 142 POTASSIUM - [facility] mmol/L 4.0 3.8 -- 3.7 CHLORIDE - [facility] mmol/L 100 102 -- 104 CO2 - [facility] mmol/L 30 28 -- 26 CREATININE - [facility] mg/dL 0.8 0.7 0.9 0.8 BUN - [facility] mg/dL 21* 16 -- 19 Medication Review "Bottles Out" medication review performed today and medication list in EMR updated Denise Do PA-C 2:14 PM *Communication sent to PCP (via autofax if [facility]), [facility] Health Care Team members,relevant Specialty Care Physicians* documented in this encounter Miscellaneous Notes * Assessment & Plan Note - Denise Do PA-C - 04/13/2023 4:05 PM EDT Associated Problem(s): Hypertensive heart disease with chronic diastolic congestive heart failure (HCC) Current Status: "Stable" for patient / At or near baseline Degree of Condition Awareness: Demonstrates very good awareness of condition, disease course, and prognosis "RED FLAG" HF Symptoms: o Increased dyspnea on exertion (Example: "I can't walk to the kitchen or up the stairs") Current Heart Failure Classifications: o With ordinary activity such as doing housework, yard work or shopping ([facility] [place] [facility] [employer]) Diagnostic Review: Recent Labs Units 09/26/22 [...] Lasix dose: 40 mg o Chest X-Ray * Assessment & Plan Note - Denise Do PA-C - 04/13/2023 4:02 PM EDT Associated Problem(s): COPD, group D, by GOLD 2017 classification ([facility]) Current Status : Actively exacerbating Degree of Condition Awareness: Demonstrates very good awareness of condition, disease course, and prognosis "RED FLAG" COPD symptoms: o Increased dyspnea on exertion ("I can't walk to the kitchen or up the stairs without coughing andwheezing", "My chest feels tight any time I move") o Increased shortness of breath at rest ("I struggle to breathe even when watching TV", "I have to wear or turn up my oxygen just when I'm sitting on the couch") Medication Regimen o Other: anoro, arnuity, sunnichandler Self-Management plan o Prednisone 40mg daily for 5 days Rx o Oral Antibiotic Rx (see medication list) o High frequency nebulizer treatments every 4-6 hours around the clock Exacerbation plan o Solumedrol 40mg IM/IV documented in this encounter Plan of Treatment Upcoming Encounters Date Type Specialty Care Team Description 05/03/2023 Imaging Radiology 05/10/2023 Scheduled Telephone [facility] Amy Zaragoza, RN [address] [place] [address] 06/07/2023 Office Visit Family Medicine Rhys Humphrey MD [address] [place] [address] [place] [id number] 06/21/2023 Office Visit Cardiology Mi Neil PA-C [address] [place] [address] 09/17/2023 Office Visit Dermatology Marycruz Almazan PA-C [address] [place] [address] [place] [id number] 03/18/2024 Nurse Only Ancillary [place], Nurse Annual Wellness [address] [place] [address] [place] [id number] Scheduled Orders Name Type Priority Associated Diagnoses Orde r Schedule XR CHEST 2 VIEWS Medical Imaging Routine COPD, group D, by GOLD 2017 classification ([facility]) Ordered: 04/13/2023 Health Maintenance Due Date Last Done Comments [...] ASSESSMENT COMPLETED IN PAST YEAR FOR COPD 04/09/2024 04/09/2023 Albumin/Creatinine Ratio 04/28/2025 04/28/2022 DTaP,Tdap,and Td Vaccines (3 - Td or Tdap) 09/17/2029 09/17/2019, 08/10/2011, 10/01/2001 Zoster Vaccines Completed 04/25/2020, 08/31, 07/22/2012 VITAMIN D LEVEL ONCE IN A LIFETIME-USE SMARTSET# [id number] Completed 06/29/2020, 03/16/2015 COVID-19 Vaccine Completed 07/21/2022, [...] as of this encounter Visit Diagnoses Diagnosis COPD, group D, by GOLD 2017 classification (HCC)- Primary Hypertensive heart disease with chronic diastolic congestive heart failure (HCC) 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 documented in this encounter Advance Directives Documents on File Type Date Recorded Patient Solar Installer Technician Expl anation POLST 10/15/2019 3:17 PM POLST POLST 03/05/2019 POLST FORM Advance Directives and Living Will 01/27/2013 LIVING WILL Advance Directives and Living Will 01/27/2013 LIVING WILL Power of Manager [employer] 01/27/2013 POWER OF A TTORNEY Power of Manager [employer] 01/27/2013 POWER OF A TTORNEY Healthcare Agents on File Name Relationship Healthcare Agent Relationship Communication Cydney Benito Other - (no specific identity) Second Alternate Health Care Agent Anyi More Adult Child Health Care Roberth r of Manager [employer] Care Teams Overhead Irrigator Relationship Specialty Start Date End Date Rhys Humphrey MD [address] [place] [address] [place] [id number] PCP - General Family Medicine 06/09/21 documented as of this encounter
--- OUTSIDE RECORDS SUMMARY | 2023-08-14 23:31 | External Medical Summary | Summary of Care ---
Author Name Unknown Organization [facility] Address [address] [place] [address] Phone [phone] Care Team Providers Care Breast Buffer Name Role Phone Rhys Humphrey MD Primary Care Provide r Reason for Visit * Reason Onset Date Comments [facility]: Maintenance 05/22/2023 Encounter Details Date Type Department Care Team Description 05/22/2023 Scheduled Telephone [facility], [facility] [place] [address] [facility] [address] Allergies Active Allergy Reactions Severity Noted Date [...] before bedtime. 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 18 g 5 01/01/2023 Active Montelukast Sodium 10 MG Oral Tablet (Singulair)Indicatio ns:Moderate chronic obstructive pulmonary disease ([facility]) TAKE ONE TABLET BY MOUTH EVERY [...] D, by GOLD 2017 classification ([facility]) Inhale 3 mL via nebulizer every [...] mRNA, LNP-s, No Pre serve, 2-Dose Series ([employer]) 07/11/2021,11/14/2020,10/24/2020 Covid-19, Mrna, Lnp-s, Pf, B ivalent, 30 Mcg, IM, 12 yrs and above ([employer]) 07/21/2022 Pneumococcal Conjugate Vacc, 13 Valent (Prevnar) 03/16/2015 Pneumococcal Conjugate Vacci ne, 20-valent ([id number]) 07/21/2022 Pneumococcal Polysaccharide PPV23 (Pneumovax) 03/05/2019,07/18/2007 Season [...] Telephone Encounter - Estee Verde RN - 05/23/2023 3:34 PM EDT Return call from patient, states she just got back from [place] yesterday, States she is doing well,BP and weight is stable at 153.6 lbs, denies any SOB, SPO2 93% on RA, no cough/congestion, appetiteis good, sleeps good, bowels and bladder wnls, denies any open area on body, no recent falls Still does not have CPAP machine since the past 2 years, supposed to hear back from [facility] tomorrow * Telephone Encounter - Estee Verde RN - 05/22/2023 9:12 AM EDT Phone call to patient to see if she is back home after vacation, no answer, left message requestingcall back. Phone call follow up scheduled for 06/06/23 MERNA Johnson Arc Air Operator [facility] documented in this encounter Plan of Treatment Upcoming Encounters Date Type Specialty Care Team Description 06/07/2023 Office Visit Family Medicine Rhys Humphrey MD [address] [place] [address] [place] [address] 06/13/2023 Home Visit [facility] Amy Zaragoza RN [address] [place] [address] 06/21/2023 Office Visit Cardiology Mi Neil PA-C [address] [place] [address] 07/04/2023 Scheduled Telephone [facility] Nurse Triage [address] [place] [address] 07/16/2023 Office Visit Gynecology Obstetrics Shane Rowland MD [address] [place] [address] 09/17/2023 Office Visit Dermatology Marycruz Almazan PA-C [address] [place] [address] [place] [address] 03/18/2024 Nurse Only Ancillary Movbjorney, Nurse [facility] [address] [place] [address] [place] [address] Health Maintenance Due Date Last Done Comments [...] D LEVEL ONCE IN A LIFETIME-USE SMARTSET# [id number] Completed 06/29/2020, 03/16/2015 COVID-19 Vaccine Completed 07/21/2022, [...] on File Type Date Recorded Patient Health Benefits Specialist Expl anation POLST 10/15/2019 3:17 PM POLST POLST 03/05/2019 POLST FORM Advance Directives and Living Will 01/27/2013 LIVING WILL Advance Directives and Living Will 01/27/2013 LIVING WILL Power of Geochemist 01/27/2013 POWER OF A TTORNEY Power of Geochemist 01/27/2013 POWER OF A TTORNEY Healthcare Agents on File Name Relationship Healthcare Agent Relationship Communication Cydney Benito Other - (no specific identity) Second Alternate Health Care Agent Anyi More Adult Child Health Care Roberth r of Geochemist Care Teams Breast Buffer Relationship Specialty Start Date End Date Rhys Humphrey MD [address] [place] [address] [place] [address] PCP - General Family Medicine 06/09/21 documented as of this encounter
--- OUTSIDE RECORDS SUMMARY | 2023-08-14 23:31 | External Medical Summary | Summary of Care ---
Author Name Unknown Organization [facility] Address [address] [place] [address] Phone [phone] Care Team Providers Care Cruise Counselor Name Role Phone Rhys Humphrey MD Primary Care Provide r Reason for Visit * Reason Onset Date Comments [facility]: Maintenance 05/18/2023 Encounter Details Date Type Department Care Team Description 05/18/2023 Scheduled Telephone [facility], [facility] 132 [facility] [place] [address] [facility] [address] Allergies Active Allergy Reactions Severity Noted Date Comments Adhesive Tape Other (Please comment),Hives High 09/29/2008 Caused welts Dextromethorphan-Gua ifenesin Neuro complications (Please comment) Medium 12/23/2021 Feels lightheaded/"foggy" documented as of this encounter (statuses as of 05/18/2023) Medications Medication Sig Dispensed Refills Start Date [...] before bedtime. 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 18 g 5 01/01/2023 Active Montelukast Sodium 10 MG Oral Tablet (Singulair)Indicatio ns:Moderate chronic obstructive pulmonary disease ([facility]) TAKE ONE TABLET BY MOUTH EVERY DAY [...] COPD, group D, by GOLD 2017 classification ([facility]) Inhale 3 mL via nebulizer every [...] as of this encounter (statuses as of 05/18/2023) Active Problems Problem Noted Date Acute serous [...] as of this encounter (statuses as of 05/18/2023) Resolved Problems Problem Noted Date Resolved Date [...] as of this encounter (statuses as of 05/18/2023) Immunizations Name Administration Dates Next Due COVID-19 mRNA, LNP-s, No Pre serve, 2-Dose Series ([employer]) 07/11/2021,11/14/2020,10/24/2020 Covid-19, Mrna, Lnp-s, Pf, B ivalent, 30 Mcg, IM, 12 yrs and above ([employer]) 07/21/2022 Pneumococcal Conjugate Vacc, 13 Valent (Prevnar) 03/16/2015 Pneumococcal Conjugate Vacci ne, 20-valent ([id number]) 07/21/2022 Pneumococcal Polysaccharide PPV23 (Pneumovax) 03/05/2019,07/18/2007 Season [...] Telephone Encounter - Estee Verde RN - 05/18/2023 10:46 AM EDT Phone call to patient as follow up from vacation, no answer left message requesting call back. Last weight recorded on 05/14/23 was 154.4lbs, BP was 114/57, HR 105 Follow call scheduled for next week MERNA Johnson Financial Coach [facility] documented in this encounter Plan of Treatment Upcoming Encounters Date Type Specialty Care Team Description 05/22/2023 Scheduled Telephone [facility] Nurse Triage [address] [place] [address] 06/07/2023 Office Visit Family Medicine Rhys Humphrey MD [address] [place] [address] [place] [address] 06/21/2023 Office Visit Cardiology Mi Neil PA-C [address] [place] [address] 07/16/2023 Office Visit Gynecology Obstetrics Shane Rowland MD [address] [place] [address] 09/17/2023 Office Visit Dermatology Marycruz Almazan PA-C [address] [place] [address] [place] [address] 03/18/2024 Nurse Only Ancillary Movalley, Nurse Annual Wellness [address] [place] [address] [place] [address] Health Maintenance Due Date Last Done Comments [...] D LEVEL ONCE IN A LIFETIME-USE SMARTSET# [id number] Completed 06/29/2020, 03/16/2015 COVID-19 Vaccine Completed 07/21/2022, [...] Documents on File Type Date Recorded Patient French Edge Operator Expl anation POLST 10/15/2019 3:17 PM POLST POLST 03/05/2019 POLST FORM Advance Directives and Living Will 01/27/2013 LIVING WILL Advance Directives and Living Will 01/27/2013 LIVING WILL Power of Neurology Physician 01/27/2013 POWER OF A TTORNEY Power of Neurology Physician 01/27/2013 POWER OF A TTORNEY Healthcare Agents on File Name Relationship Healthcare Agent Relationship Communication Cydney Benito Other - (no specific identity) Second Alternate Health Care Agent Anyi More Adult Child Health Care Roberth r of Neurology Physician Care Teams Cruise Counselor Relationship Specialty Start Date End Date Rhys Humphrey MD [address] [place] [address] [place] [phone] PCP - General Family Medicine 06/09/21 documented as of this encounter
--- OUTSIDE RECORDS SUMMARY | 2023-08-14 23:32 | External Medical Summary | Summary of Care ---
Author Name Unknown Organization [facility] Address [address] [place] [address] Phone [phone] Care Team Providers Care Pulling Machine Operator Name Role Phone Rhys Humphrey MD Primary Care Provide r Reason for Visit * Reason Onset Date Comments Order Request 04/04/2023 Status Check 04/04/2023 Encounter Details Date Type Department Care Team Description 04/04/[address] [phone] Rhys Humphrey MD [address] [place] [address] [place] [address] Order Request; Status Check Allergies Active Allergy Reactions Severity Noted Date Comments Adhesive Tape Other (Please comment),Hives High 09/29/2008 Caused welts Dextromethorphan-Gua ifenesin Neuro complications (Please comment) Medium 12/23/2021 Feels lightheaded/"foggy" documented as of this encounter (statuses as of 04/11/2023) Medications Medication Sig Dispensed Refills Start Date [...] before bedtime. 50 Cap 0 01/18/2021 Active Qqeioyr-Cjqrceefb-Sy nc 333-133-5 MG Oral Tablet Take by [...] of breath.. 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 30 Tablet 1 10/06/2022 Active Atorvastatin Calcium 40 MG Oral Tablet (Lipitor)Indications :Dyslipidemia, goal LDL below 100 TAKE ONE TABLET BY MOUTH EVERY DAY 90 Tablet 1 10/24/2022 Active Clopidogrel Bisulfate 75 MG Oral Tablet (pLAVix)Indications: TIA (transient ischemic attack) TAKE ONE TABLET BY MOUTH EVERY DAY 90 Tablet 1 10/24/2022 Active Docusate Sodium 100 MG Oral Capsule [...] or Wheezing. 360 mL 3 03/22/2023 Active documented as of this encounter (statuses as of 04/11/2023) Active Problems Problem Noted Date Acute serous [...] as of this encounter (statuses as of 04/11/2023) Resolved Problems Problem Noted Date Resolved Date [...] as of this encounter (statuses as of 04/11/2023) Immunizations Name Administration Dates Next Due COVID-19 mRNA, LNP-s, No Pre serve, 2-Dose Series ([facility]) 07/11/2021,11/14/2020,10/24/2020 Covid-19, Mrna, Lnp-s, Pf, B ivalent, 30 Mcg, IM, 12 yrs and above ([employer]) 07/21/2022 Pneumococcal Conjugate Vacc, 13 Valent (Prevnar) 03/16/2015 Pneumococcal Conjugate Vacci ne, 20-valent ([id number]) 07/21/2022 Pneumococcal Polysaccharide PPV23 (Pneumovax) 03/05/2019,07/18/2007 Seasonal [...] Miscellaneous Notes * Telephone Encounter - ISELA Espinosa - 04/11/2023 9:24 AM EDT Left 3 messages to get patient scheduled. Letter mailed 04/11/2023 for patient to please call and schedule. Closing encounter * Telephone Encounter - ISELA Espinosa - 04/09/2023 9:06 AM EDT lmom 04/09 * Telephone Encounter - ISELA Espinosa - 04/06/2023 9:29 AM EDT lmom 04/06 * Telephone Encounter - ISELA Espinosa - 04/05/2023 1:18 PM EDT lmom for patient to call the office to get scheduled * Telephone Encounter - Page Lawrence LPN - 04/05/2023 12:25 PM EDT On February 02 a phn encounter was sent to scheduling. Pt needs seen to discuss having a PSG . Would need seen for an updated face to face for an order Pt aware she needs an appt * Telephone Encounter - ISELA Islas - 04/05/2023 11:20 AM EDT Pt called to check status of CPAP replacement machine. [facility] took it but never replaced it or called her about it. Pt has an order but needs it faxed to [facility]. Faxed order to [phone] * Telephone Encounter - Bindu Davison LPN - 04/04/2023 4:13 PM EDT PCP office does not order CPAP machines - this comes from Sleep Medicine * Telephone Encounter - Arelis Oswald CPhT - 04/04/2023 2:54 PM EDT Name of Requestor: Keisha Linares Order Request: Cpap machine - ROUTE TO CLINIC NURSE POOL Diagnosis/Reason for Request: Pt states she has been waiting for a cpap machine for a year. Does the order need to be faxed somewhere? If so, where?: [facility] Fax Number, if applicable: [phone] Call Back Number: [phone] Thank you, Mary Oswald Hearing Aid Mechanic [facility]) 04/04/2023,2:56 PM documented in this encounter Plan of Treatment Upcoming Encounters Date Type Specialty Care Team Description 04/11/2023 Scheduled Telephone [facility] Derrick Operator, Josephine Zhou [address] [place] [address] 04/13/2023 Telemedicine [facility] Denise Do PA-C [address] [facility] [place] [address] Marlen Strange Community Health Apprentice/Lineman [address] [place] [address] [place] [address] 05/03/2023 Imaging Radiology 05/10/2023 Scheduled Telephone [facility] Amy Zaragoza RN [address] [place] [address] 06/07/2023 Office Visit Family Medicine Rhys Humphrey MD [address] [place] [address] [place] [address] 06/21/2023 Office Visit Cardiology Mi Neil PA-C [address] [place] [address] 09/17/2023 Office Visit Dermatology Marycruz Almazan PA-C [address] [place] [address] [place] [address] 03/18/2024 Nurse Only Ancillary Nurse Stanton [facility] [address] [place] [address] [place] [address] Health Maintenance Due Date [...] D LEVEL ONCE IN A LIFETIME-USE SMARTSET# [id number] Completed 06/29/2020, 03/16/2015 COVID-19 Vaccine Completed 07/21/2022, [...] Documents on File Type Date Recorded Patient Research Subject Expl anation POLST 10/15/2019 3:17 PM POLST POLST 03/05/2019 POLST FORM Advance Directives and Living Will 01/27/2013 LIVING WILL Advance Directives and Living Will 01/27/2013 LIVING WILL Power of Stonework Tracer 01/27/2013 POWER OF A TTORNEY Power of Stonework Tracer 01/27/2013 POWER OF A TTORNEY Healthcare Agents on File Name Relationship Healthcare Agent Relationship Communication Cydney Benito Other - (no specific identity) Second Alternate Health Care Agent Anyi More Adult Child Health Care Roberth r of Stonework Tracer Care Teams Pulling Machine Operator Relationship Specialty Start Date End Date Rhys Humphrey MD [address] [place] [address] [place] [phone] PCP - General Family Medicine 06/09/21 documented as of this encounter
--- OUTSIDE RECORDS SUMMARY | 2023-08-14 23:32 | External Medical Summary | Summary of Care ---
Author Name Unknown Organization [facility] Address [address] [place] [address] Phone [phone] Care Team Providers Care Bunker Worker Name Role Phone Rhys Humphrey MD Primary Care Provide r Reason for Referral * Evaluate & Treat - Unlimited Visits (Within 30 days (routine)) - Authorized Specialty Diagnoses / Procedures Referred By Contalexander t Referred To Contact Obstetrics/Gynecology / Gynecology Obstetrics Diagnoses Vaginal irritation Lichen sclerosus et atrophicus Rhys Humphrey MD [address] [place] [address] [place] [address] Referral ID Status Reason Start Date Expiration Date Visits Requested Visits Authorized [id number] Authorized Specialty Services Required 04/12/2023 999 999 Question Answer Referral Priority Within 30 days (routine) What condition is the patient being seen for? Other Reason for Visit * Reason Onset Date Comments Med Change Request 04/05/2023 Replace Anastasia rin with another medication Encounter Details Date Type Department Care Team Description 04/05/2023 Telephone Family Medicine [address] [place] [phone] Rhys Humphrey MD [address] [place] [address] [place] [address] Med Change Request (Replace Premarin with ... 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 Use as directed. 1 Each 1 11/17/2019 Active Iron 325 (65 Fe) MG Oral Tablet Take by mouth. 0 Active Cranberry 500 MG Oral Capsule Take 1 Capsule by mouth in the morning and 1 Capsule before bedtime. 50 Cap 0 01/18/2021 Active Uciobzm-Qylgwrpvz-O inc 333-133-5 MG Oral Tablet Take by [...] 02/02/2023 Active Ramelteon 8 MG Oral Tablet (Rozerem)Indication [...] :COPD, group D, by GOLD 2017 classification (HCC) Inhale 3 mL via nebulizer every 6 hours as needed for Shortness of Breath or Wheezing. 360 mL 3 03/22/2023 Active Losartan Potassium 50 MG Oral Tablet (Cozaar)Indications :HTN, goal below 140/90 TAKE TWO TABLETS BY MOUTH EVERY DAY 180 Tablet 3 07/08/2022 3 Discontinu ed(Refill) Atorvastatin Calcium 40 MG Oral Tablet (Lipitor)Indication s:Dyslipidemia, goal LDL below 100 TAKE ONE TABLET BY MOUTH EVERY DAY 90 Tablet 1 10/24/2022 3 Discontinu ed(Refill) Clopidogrel Bisulfate 75 MG Oral Tablet (pLAVix)Indications :TIA (transient ischemic attack) TAKE ONE TABLET BY MOUTH EVERY DAY 90 Tablet 1 10/24/2022 3 Discontinu ed(Refill) documented as of this encounter (statuses as of 04/12/2023) Active Problems Problem Noted Date Acute serous [...] as of this encounter (statuses as of 04/12/2023) Resolved Problems Problem Noted Date Resolved Date [...] on exertion) 01/07/20132018 Obstructive sleep apnea 11/22/2011 03/09/20 18 Overview: 11/22/11 -- auto CPAP 5-15 [...] as of this encounter (statuses as of 04/12/2023) Immunizations Name Administration Dates Next Due COVID-19 mRNA, LNP-s, No Pre serve, 2-Dose Series ([employer]) 07/11/2021,11/14/2020,10/24/2020 Covid-19, Mrna, Lnp-s, Pf, B ivalent, 30 Mcg, IM, 12 yrs and above ([employer]) 07/21/2022 Pneumococcal Conjugate Vacc, 13 Valent (Prevnar) 03/16/2015 Pneumococcal Conjugate Vacci ne, 20-valent ([id number]) 07/21/2022 Pneumococcal Polysaccharide PPV23 (Pneumovax) 03/05/2019,07/18/2007 Seasonal [...] Telephone Encounter - Edwige Mulligan RN - 04/12/2023 3:31 PM EDT Please call pt with a ROTARY BAR OPERATOR appt * Telephone Encounter - ISELA Leon - 04/12/2023 1:23 PM EDT Message was shared with pt. She states that she will follow up after her vacation. She also wanted to make the provider aware that the steroids have cause her to get servely sick * Telephone Encounter - Rhys Humphrey MD - 04/12/2023 11:25 AM EDT Due to the persistent symptoms with lack of improvement on premarin cream - I recommend tire classifier follow up * Telephone Encounter - ISELA Islas - 04/05/2023 11:17 AM EDT Pt requesting medication change from Premarin to something else. Pt advised it has not helped and she is very sore in the vaginal area. Pharmacy: [facility] documented in this encounter Plan of Treatment Upcoming Encounters Date Type Specialty Care Team Description 04/13/2023 Telemedicine [facility] Denise Do PA-C [address] [facility] [place] [address] Marlen Strange, [address] [place] [address] 05/03/2023 Imaging Radiology 05/10/2023 Scheduled Telephone [facility] Amy Zaragoza, RN [address] [place] [address] 06/07/2023 Office Visit Family Medicine Rhys Humphrey MD [address] [place] [address] [place] [address] 06/21/2023 Office Visit Cardiology Mi Neil PA-C [address] [place] [address] 09/17/2023 Office Visit Dermatology Marycruz Almazan PA-C [address] [place] [address] [place] [address] 03/18/2024 Nurse Only Ancillary Movalley, Nurse Annual Wellness [address] [place] [address] [place] [address] Scheduled Referrals Name Type Priority Associated Diagnoses Orde r Schedule ROTARY BAR OPERATOR REFERRAL OP Referral Within 30 days (routine) Vaginal irritation Lichen sclerosus et atrophicus Ordered: 04/12/2023 Health Maintenance Due Date Last Done Comments [...] D LEVEL ONCE IN A LIFETIME-USE SMARTSET# [id number] Completed 06/29/2020, 03/16/2015 COVID-19 Vaccine Completed 07/21/2022, [...] as of this encounter Visit Diagnoses Diagnosis Vaginal irritation- Primary Unspecified noninflammatory disorder of vagina 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 Advance Directives Documents on File Type Date Recorded Patient Insights Strategist Expl anation POLST 10/15/2019 3:17 PM POLST POLST 03/05/2019 POLST FORM Advance Directives and Living Will 01/27/2013 LIVING WILL Advance Directives and Living Will 01/27/2013 LIVING WILL Power of Auto Electrician 01/27/2013 POWER OF A TTORNEY Power of Auto Electrician 01/27/2013 POWER OF A TTORNEY Healthcare Agents on File Name Relationship Healthcare Agent Relationship Communication Cydney Benito Other - (no specific identity) Second Alternate Health Care Agent Anyi More Adult Child Health Care Roberth r of Auto Electrician Care Teams Bunker Worker Relationship Specialty Start Date End Date Rhys Humphrey MD [address] [place] [address] [place] [address] PCP - General Family Medicine 06/09/21 documented as of this encounter
--- OUTSIDE RECORDS SUMMARY | 2023-08-14 23:32 | External Medical Summary | Summary of Care ---
Author Name Unknown Organization [facility] Address [address] [place] [address] Phone [phone] Care Team Providers Care Inside Sales Agent Name Role Phone Rhys Humphrey MD Primary Care Provide r Reason for Visit * Reason Onset Date Comments [facility]: Maintenance 04/13/2023 Encounter Details Date Type Department Care Team Description 04/13/2023 Telephone [facility], [facility] [address] [facility] [place] [id number] [facility], Nurse [facility] [address] [facility] [place] [address] [facility]: Maintenance Allergies Active Allergy Reactions Severity Noted Date Comments Adhesive Tape Other (Please comment),Hives High 09/29/2008 Caused welts Dextromethorphan-Gua ifenesin Neuro complications (Please comment) Medium 12/23/2021 Feels lightheaded/"foggy" documented as of this encounter (statuses as of 04/13/2023) Medications Medication Sig Dispensed Refills Start Date [...] before bedtime. 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 18 g 5 01/01/2023 Active Montelukast Sodium 10 MG Oral Tablet (Singulair)Indicatio ns:Moderate chronic obstructive pulmonary disease ([facility]) TAKE ONE TABLET BY MOUTH [...] group D, by GOLD 2017 classification ([facility]) Inhale 3 mL via nebulizer every 6 hours as needed for Shortness of Breath or Wheezing. 360 mL 3 03/22/2023 Active guaiFENesin ER 600 MG Oral Tablet Extended Release 12 Hour (Mucinex) Take 1 Tablet by mouth in the morning and 1 Tablet before bedtime. 0 Active predniSONE 20 MG Oral Tablet (Deltasone) Take 2 Tablets by mouth in the morning for 5 days. 10 Tablet 1 04/09/2023 3 Active Atorvastatin Calcium 40 MG Oral [...] as of this encounter (statuses as of 04/13/2023) Active Problems Problem Noted Date Acute serous [...] as of this encounter (statuses as of 04/13/2023) Resolved Problems Problem Noted Date Resolved Date [...] as of this encounter (statuses as of 04/13/2023) Immunizations Name Administration Dates Next Due COVID-19 mRNA, LNP-s, No Pre serve, 2-Dose Series ([employer]iki) 07/11/2021,11/14/2020,10/24/2020 Covid-19, Mrna, Lnp-s, Pf, B ivalent, 30 Mcg, IM, 12 yrs and above ([employer]iki) 07/21/2022 Pneumococcal Conjugate Vacc, 13 Valent (Prevnar) 03/16/2015 Pneumococcal Conjugate Vacci ne, 20-valent ([id number]) 07/21/2022 Pneumococcal Polysaccharide PPV23 (Pneumovax) 03/05/2019,07/18/2007 Seasonal [...] encounter Miscellaneous Notes * Telephone Encounter - Xi Smith, DUNCAN - 04/13/2023 9:55 AM EDT Images from the original note were not included. [facility] Telephonic Nurse Follow-Up Call [facility] Subprogram: Focused Care Management (3-9 months) Follow Up Call Type: Routine follow up call / Status Check Acute issue requiring follow-up call: Remote Patient Monitoring Trigger Objective: 04/09/2023 10:00 AM 03/16/2023 9:58 AM 03/16/2023 8:39 AM 02/23/2023 1:27 PM 02/22/2023 11:48 AM VITALS ACROSS ENCOUNTERS BP 120/60 124/52 124/52 118/48 148/68 Pulse 88 93 93 83 80 Weight 66.2 kg 66.6 kg BMI 25.05 [...] LEFT VENTRICULAR EJECTION FRACTION Remote Patient Monitoring: [facility] [place] Blood Pressure Cuff: as per below Oxygen Needs: NO CHANGE from baseline supplemental oxygen needs DME Needs: NO DME needs identified Medications: No medication or dose adjustments made during acute episode Subjective: Condition Status: No change in symptoms Current Concerns: Low bp reading Spoke to pt. Reports she is feeling ok this morning. Denies any dizziness or lightheadedness or additional concerns. Has not taken her medications yet today, plans on eating breakfast shortly. She isgoing to recheck her bp around 12pm. Noted BP recheck 113/46. BP is improved. [place] [facility] [facility] Care Team for further advice Future Visits Scheduled: Future Appointments-next 60 days Date/Time Provider Specialty Dept Phone 04/13/2023 3:30 PM Marlen Strange Community [facility] Commercial Credit Head; Denise Do PA-C [facility] [phone] 05/03/2023 9:00 AM [facility] Radiology [phone] 05/10/2023 9:00 AM Amy Zaragoza RN [facility] [phone] 06/07/2023 8:00 AM (Arrive by 7:45 AM) Rhys Humphrey MD Family Medicine [phone] 06/21/2023 3:00 PM (Arrive by 2:45 PM) Mi Neil PA-C Cardiology [phone] 09/17/2023 9:40 AM (Arrive by 9:25 AM) Marycruz Almazan PA-C Dermatology [phone] 03/18/2024 9:00 AM Nurse Annual Wellness Movalley Ancillary [phone] DUNCAN Duran LPN [facility] 04/13/2023,9:55 AM documented in this encounter Plan of Treatment Upcoming Encounters Date Type Specialty Care Team Description 04/13/2023 Telemedicine [facility] Denise Do PA-C [address] [facility] [place] [address] Marlen Strange, Community Health Commercial Credit Head [address] [place] [address] [place] [address] 05/03/2023 Imaging Radiology 05/10/2023 Scheduled Telephone [facility] Amy Zaragoza, RN [address] [place] [address] 06/07/2023 Office Visit Family Medicine Rhys Humphrey MD [address] [place] [address] [place] [address] 06/21/2023 Office Visit Cardiology Mi Neil PA-C [address] [place] [address] 09/17/2023 Office Visit Dermatology Marycruz Almazan PA-C [address] [place] [address] [place] [address] 03/18/2024 Nurse Only Ancillary Movalley, Nurse Annual [facility]ness [address] [place] [address] [place] [address] Health Maintenance Due Date [...] D LEVEL ONCE IN A LIFETIME-USE SMARTSET# [id number] Completed 06/29/2020, 03/16/2015 COVID-19 Vaccine Completed 07/21/2022, [...] Documents on File Type Date Recorded Patient Buggy Driver Expl anation POLST 10/15/2019 3:17 PM POLST POLST 03/05/2019 POLST FORM Advance Directives and Living Will 01/27/2013 LIVING WILL Advance Directives and Living Will 01/27/2013 LIVING WILL Power of Tab Card Press Operator 01/27/2013 POWER OF A TTORNEY Power of Tab Card Press Operator 01/27/2013 POWER OF A TTORNEY Healthcare Agents on File Name Relationship Healthcare Agent Relationship Communication Cydney Benito Other - (no specific identity) Second Alternate Health Care Agent Anyi More Adult Child Health Care Roberth r of Tab Card Press Operator Care Teams Inside Sales Agent Relationship Specialty Start Date End Date Rhys Humphrey MD [address] [place] [address] [place] [address] PCP - General Family Medicine 06/09/21 documented as of this encounter
--- OUTSIDE RECORDS SUMMARY | 2023-08-14 23:32 | External Medical Summary | Summary of Care ---
Author Name Unknown Organization [facility] Address [address] [place] [address] Phone [phone] Care Team Providers Care Hospice Chaplain Name Role Phone Rhys Humphrey MD Primary Care Provide r Reason for Referral * Evaluate & Treat - Unlimited Visits (Within 30 days (routine)) - Authorized Specialty Diagnoses / Procedures Referred By Contalexander t Referred To Contact Obstetrics/Gynecology / Gynecology Obstetrics Diagnoses Vaginal irritation Lichen sclerosus et atrophicus Rhys Humphrey MD [address] [place] [address] [place] [address] Referral ID Status Reason Start Date Expiration Date Visits Requested Visits Authorized [id number] Authorized Specialty Services Required 04/12/2023 999 999 Question Answer Referral Priority Within 30 days (routine) What condition is the patient being seen for? Other Reason for Visit * Reason Onset Date Comments Med Change Request 04/05/2023 Replace Anastasia rin with another medication Encounter Details Date Type Department Care Team Description 04/05/2023 Telephone Family Medicine [address] [place] [phone] Rhys Humphrey MD [address] [place] [address] [place] [address] Med Change Request (Replace Premarin with ... 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 Use as directed. 1 Each 1 11/17/2019 Active Iron 325 (65 Fe) MG Oral Tablet Take by mouth. 0 Active Cranberry 500 MG Oral Capsule Take 1 Capsule by mouth in the morning and 1 Capsule before bedtime. 50 Cap 0 01/18/2021 Active Kbyezaz-Eakfiwciz-T inc 333-133-5 MG Oral Tablet Take by [...] mRNA, LNP-s, No Pre serve, 2-Dose Series ([employer]) 07/11/2021,11/14/2020,10/24/2020 Covid-19, Mrna, Lnp-s, Pf, B ivalent, 30 Mcg, IM, 12 yrs and above (Pfizer) 07/21/2022 Pneumococcal Conjugate Vacc, 13 Valent (Prevnar) 03/16/2015 Pneumococcal Conjugate Vacci ne, 20-valent ([id number]) 07/21/2022 Pneumococcal Polysaccharide PPV23 (Pneumovax) 03/05/2019,07/18/2007 Seasonal [...] Miscellaneous Notes * Telephone Encounter - Rhys Humprhey MD - 04/12/2023 11:25 AM EDT Due to the persistent symptoms with lack of improvement on premarin cream - I recommend core checker follow up * Telephone Encounter - ISELA Islas - 04/05/2023 11:17 AM EDT Pt requesting medication change from Premarin to something else. Pt advised it has not helped and she is very sore in the vaginal area. Pharmacy: [facility] documented in this encounter Plan of Treatment Upcoming Encounters Date Type Specialty Care Team Description 04/13/2023 Telemedicine [facility] [place] Denise Do PA-C [address] [facility] [place] [address] Marlen Strange, Community [facility] Vp Scientific [address] [place] [address] [place] [address] 05/03/2023 Imaging Radiology 05/10/2023 Scheduled Telephone [facility] Amy Zaragoza RN [address] [place] [address] 06/07/2023 Office Visit Family Medicine Rhys Humphrey MD [address] [place] [address] [place] [address] 06/21/2023 Office Visit Cardiology Mi Neil PA-C [address] [place] [address] 09/17/2023 Office Visit Dermatology Marycruz Almazan PA-C [address] [place] [address] [place] [address] 03/18/2024 Nurse Only Ancillary Nurse Stanton Annual [facility] [address] [place] [address] [place] [address] Scheduled Referrals Name Type Priority Associated Diagnoses Orde r Schedule 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 Within 30 days (routine) [...] D LEVEL ONCE IN A LIFETIME-USE SMARTSET# [id number] Completed 06/29/2020, 03/16/2015 COVID-19 Vaccine Completed 07/21/2022, [...] Documents on File Type Date Recorded Patient Photo Equipment Technician Expl anation POLST 10/15/2019 3:17 PM POLST POLST 03/05/2019 POLST FORM Advance Directives and Living Will 01/27/2013 LIVING WILL Advance Directives and Living Will 01/27/2013 LIVING WILL Power of Director Of Solutions Architecture 01/27/2013 POWER OF A TTORNEY Power of Director Of Solutions Architecture 01/27/2013 POWER OF A TTORNEY Healthcare Agents on File Name Relationship Healthcare Agent Relationship Communication Cydney Benito Other - (no specific identity) Second Alternate Health Care Agent Anyi More Adult Child Health Care Roberth r of Director Of Solutions Architecture Care Teams Hospice Chaplain Relationship Specialty Start Date End Date Rhys Humphrey MD [address] [place] [address] [place] [address] PCP - General Family Medicine 06/09/21 documented as of this encounter
--- OUTSIDE RECORDS SUMMARY | 2023-08-14 23:32 | External Medical Summary | Summary of Care ---
Author Name Unknown Organization [facility] Address [address] [place] [address] Phone [phone] Care Team Providers Care Vat Tender Name Role Phone Rhys Humphrey MD Primary Care Provide r Reason for Visit * Reason Onset Date Comments Med Request 04/11/2023 Encounter Details Date Type Department Care Team Description 04/11/2023 Telephone Family Medicine [address] [phone] Rhys Humphrey MD [address] [place] [address] [place] [address] Med Request Allergies Active Allergy Reactions Severity Noted Date [...] before bedtime. 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 18 g 5 01/01/2023 Active Montelukast Sodium 10 MG Oral Tablet (Singulair)Indicatio ns:Moderate chronic obstructive pulmonary disease ([facility]) TAKE ONE TABLET BY MOUTH EVERY DAY [...] mRNA, LNP-s, No Pre serve, 2-Dose Series ([employer]) 07/11/2021,11/14/2020,10/24/2020 Covid-19, Mrna, Lnp-s, Pf, B ivalent, 30 Mcg, IM, 12 yrs and above ([employer]) 07/21/2022 Pneumococcal Conjugate Vacc, 13 Valent (Prevnar) 03/16/2015 Pneumococcal Conjugate Vacci ne, 20-valent ([id number]) 07/21/2022 Pneumococcal Polysaccharide PPV23 (Pneumovax) 03/05/2019,07/18/2007 Seasonal [...] Telephone Encounter - Rhys Humphrey MD - 04/11/2023 12:05 PM EDT Pt is not taking hydralazine - therefore no need for refill * Telephone Encounter - Bindu Davison LPN - 04/11/2023 10:51 AM EDT Hydralazine removed from med list by [facility] on 12/29/22 Should pt still be taking this? Provider to address: PCP Reason for Call: Med Request Contact: Telephone Call Contact Type: Medication Outcome: see above Total Time including non face to face (minutes): 10 * Telephone Encounter - Chery Morton CPhT - 04/11/2023 10:43 AM EDT Pharmacy requesting refills for hydralazine HCl 25mg. Upon chart review, medication is listed as discontinued, with discontinuation reason as "medication/dose changed". Please advise if you wish to continue this therapy for the patient. Pharmacy requesting high priority as pt is leaving for 2 months starting Friday 04/13 Thank you, Chery Morton, Tech 1 Education Rep [facility] ([facility] (formerly Telepharmacy) 04/11/2023, 10:44 AM documented in this encounter Plan of Treatment Upcoming Encounters Date Type Specialty Care Team Description 04/11/2023 Scheduled Telephone [facility] Bridge Inspector, Josephine Zhou [address] [place] [address] 04/13/2023 [facility]medicine [facility]ise Do [facility]-C [facility] [facility] [address] Marlen Strange [facility] Boxcar Weigher [address] [place] [address] [place] [address] 05/03/2023 Imaging Radiology 05/10/2023 Scheduled Telephone [facility] Amy Zaragoza RN [address] [place] [address] 06/07/2023 Office Visit Family Medicine Rhys Humphrey MD [address] [place] [address] [place] [address] 06/21/2023 Office Visit Cardiology Mi Neil PA-C [address] [place] [address] 09/17/2023 Office Visit Dermatology Marycruz Almazan PA-C [address] [place] [address] [place] [address] 03/18/2024 Nurse Only Ancillary Movalley, Nurse Annual Wellness [address] [place] [address] [place] [address] Health Maintenance Due Date Last Done Comments [...] D LEVEL ONCE IN A LIFETIME-USE SMARTSET# [id number] Completed 06/29/2020, 03/16/2015 COVID-19 Vaccine Completed 07/21/2022, [...] Documents on File Type Date Recorded Patient Credit Reporting Clerk Expl anation POLST 10/15/2019 3:17 PM POLST POLST 03/05/2019 POLST FORM Advance Directives and Living Will 01/27/2013 LIVING WILL Advance Directives and Living Will 01/27/2013 LIVING WILL Power of Oracle Webcenter Consultant 01/27/2013 POWER OF A TTORNEY Power of [employer] Consultant 01/27/2013 POWER OF A TTORNEY Healthcare Agents on File Name Relationship Healthcare Agent Relationship Communication Cydney Benito Other - (no specific identity) Second Alternate Health Care Agent Anyi More Adult Child Health Care Roberth r of [employer] Webcenter Consultant Care Teams Vat Tender Relationship Specialty Start Date End Date Rhys Humphrey MD [address] [place] [address] [place] [address] PCP - General Family Medicine 06/09/21 documented as of this encounter
--- OUTSIDE RECORDS SUMMARY | 2023-08-14 23:32 | External Medical Summary | Summary of Care ---
Author Name Unknown Organization [facility] Address [address] [place] [address] Phone [phone] Care Team Providers Care Admissions Dean Name Role Phone Rhys Humphrey MD Primary Care Provide r Reason for Visit * Reason Onset Date Comments [facility]: Maintenance 04/13/2023 Encounter Details Date Type Department Care Team Description 04/13/2023 Telephone [facility], [facility] [address] [facility] [place] [id number] [facility], Nurse [facility] [address] [facility] [place] [address] [facility]: Maintenance Allergies Active Allergy [...] before bedtime. 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 18 g 5 01/01/2023 Active Montelukast Sodium 10 MG Oral Tablet (Singulair)Indicatio ns:Moderate chronic obstructive pulmonary disease ([facility]) TAKE ONE TABLET BY MOUTH [...] the couch") Medication Regimen o Other: anoro, aan luisa, sunni, chandler Self-Management plan o Prednisone [...] mRNA, LNP-s, No Pre serve, 2-Dose Series ([employer]) 07/11/2021,11/14/2020,10/24/2020 Covid-19, Mrna, Lnp-s, Pf, B ivalent, 30 Mcg, IM, 12 yrs and above ([employer]) 07/21/2022 Pneumococcal Conjugate Vacc, 13 Valent (Prevnar) 03/16/2015 Pneumococcal Conjugate Vacci ne, 20-valent ([id number]) 07/21/2022 Pneumococcal Polysaccharide PPV23 (Pneumovax) 03/05/2019,07/18/2007 Seasonal [...] Miscellaneous Notes * Telephone Encounter - Xi SmithDUNCAN - 04/13/2023 9:55 AM EDT Images from the original note were not included. [facility] Telephonic Nurse Follow-Up Call [facility] Subprogram: Focused Care Management (3-9 [...] LEFT VENTRICULAR EJECTION FRACTION [place] [facility] [place] Pressure Cuff: as per below Oxygen [...] isgoing to recheck her bp around 12pm. Disposition: [place] [facility]or [facility] Care Team for further advice Future Visits Scheduled: Future Appointments-next 60 days Date/Time Provider Specialty Dept Phone 04/13/2023 3:30 PM Marlen Strange [facility] Costume Cutter; Denise Do PA-C [facility] [phone] 05/03/2023 9:00 AM [facility] Radiology [phone] 05/10/2023 9:00 AM Amy Zaragoza RN [facility] [phone] 06/07/2023 8:00 AM (Arrive by 7:45 AM) Rhys Humphrey MD Family Medicine [phone] 06/21/2023 3:00 PM (Arrive by 2:45 PM) Mi Neil PA-C Cardiology [phone] 09/17/2023 9:40 AM (Arrive by 9:25 AM) Marycruz Almazan PA-C Dermatology [phone] 03/18/2024 9:00 AM Nurse Annual Wellness Movalley Ancillary [phone] DUNCAN Duran LPN [facility] 04/13/2023,9:55 AM documented in this encounter Plan of Treatment Upcoming Encounters Date Type Specialty Care Team Description 04/13/2023 Telemedicine [facility] Denise Do PA-C [address] [facility] [place] [address] Marlen Strange [facility] Costume Cutter [address] [place] [address] [place] [address] 05/03/2023 Imaging Radiology 05/10/2023 Scheduled Telephone [facility] Amy Zaragoza, RN [address] [place] [address] 06/07/2023 Office Visit Family Medicine Rhys Humphrey MD [address] [place] [address] [place] [address] 06/21/2023 Office Visit Cardiology Mi Neil PA-C [address] [place] [address] 09/17/2023 Office Visit Dermatology Marycruz Almazan PA-C [address] [place] [address] [place] [address] 03/18/2024 Nurse Only Ancillary Movalley, Nurse Annual Wellness [address] [place] [address] [place] [address] Health Maintenance Due Date Last Done Comments [...] D LEVEL ONCE IN A LIFETIME-USE SMARTSET# [id number] Completed 06/29/2020, 03/16/2015 COVID-19 Vaccine Completed 07/21/2022, [...] Documents on File Type Date Recorded Patient Gopherman Expl anation POLST 10/15/2019 3:17 PM POLST POLST 03/05/2019 POLST FORM Advance Directives and Living Will 01/27/2013 LIVING WILL Advance Directives and Living Will 01/27/2013 LIVING WILL Power of Pharmacy Laboratory Technician 01/27/2013 POWER OF A TTORNEY Power of Pharmacy Laboratory Technician 01/27/2013 POWER OF A TTORNEY Healthcare Agents on File Name Relationship Healthcare Agent Relationship Communication Cydney Benito Other - (no specific identity) Second Alternate Health Care Agent Anyi More Adult Child Health Care Roberth r of Pharmacy Laboratory Technician Care Teams Admissions Dean Relationship Specialty Start Date End Date Rhys Humphrey MD [address] [place] [address] [place] [address] PCP - General Family Medicine 06/09/21 documented as of this encounter
--- OUTSIDE RECORDS SUMMARY | 2023-08-14 23:32 | External Medical Summary | Summary of Care ---
Author Name Unknown Organization [facility] Address [address] [place] [address] Phone [phone] Care Team Providers Care Relief Map Modeler Name Role Phone Rhys Humphrey MD Primary Care Provide r Reason for Visit * Reason Onset Date Comments [facility]: Maintenance 04/11/2023 Encounter Details Date Type Department Care Team Description 04/11/2023 Scheduled Telephone [facility], [facility] [address] [facility] [place] [address] Coordinator, [facility] [address] [facility] [place] [address] Allergies Active Allergy Reactions Severity Noted Date [...] before bedtime. 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 42.5 g 02/02/2023 Active Ramelteon 8 MG Oral Tablet [...] for 5 days. 10 Tablet 1 04/09/2023 Active documented as of this encounter (statuses [...] mRNA, LNP-s, No Pre serve, 2-Dose Series (Glyde) 07/11/2021,11/14/2020,10/24/2020 Covid-19, Mrna, Lnp-s, Pf, B ivalent, 30 Mcg, IM, 12 yrs and above (Glyde) 07/21/2022 Pneumococcal Conjugate Vacc, 13 Valent (Prevnar) 03/16/2015 Pneumococcal Conjugate Vacci ne, 20-valent ([id number]) 07/21/2022 Pneumococcal Polysaccharide PPV23 (Pneumovax) 03/05/2019,07/18/2007 Seasonal [...] Telephone Encounter - Estee Verde RN - 04/11/2023 10:44 AM EDT Images from the original note were not included. [facility] Telephonic Nurse Follow-Up Call [facility] Subprogram: Focused Care Management (3-9 months) Follow Up Call Type: Routine follow up call / Status Check Acute issue requiring follow-up call: Acute Exacerbation of COPD Objective: 04/09/2023 10:00 AM 03/16/2023 9:58 AM [...] LEFT VENTRICULAR EJECTION FRACTION Remote Patient Monitoring: AMC Scale: see below Oxygen Needs: NO supplemental oxygen needs identified DME Needs: NO DME needs identified Medications: Current Rescue Kit: Prednisone 40mg daily for 5 days Rx Subjective: Condition Status: [facility] Current Concerns: LMAM requesting call back Disposition: Issue resolved. All appropriate follow up scheduled. Future Visits Scheduled: Future Appointments-next 60 days Date/Time Provider Specialty Dept Phone 04/11/2023 1:30 PM Josephine Viera Clerical Manager [facility] [phone] 04/13/2023 3:30 PM Marlen [facility] Medical Billing Coordinator; Denise Do PA-C [facility] [phone] 05/03/2023 9:00 AM [facility] Radiology [phone] 05/10/2023 9:00 AM Amy Zaragoza RN [facility] [phone] 06/07/2023 8:00 AM (Arrive by 7:45 AM) Rhys Humphrey MD Family Medicine [phone] 06/21/2023 3:00 PM (Arrive by 2:45 PM) Mi Neil PA-C Cardiology [phone] 09/17/2023 9:40 AM (Arrive by 9:25 AM) Marycruz Almazan PA-C Dermatology [phone] 03/18/2024 9:00 AM Nurse Annual Wellness Movalley Ancillary [phone] Estee Verde, RN documented in this encounter Plan of Treatment Upcoming Encounters Date Type Specialty Care Team Description 04/13/2023 Telemedicine [facility] [place] Denise Do PA-C [address] [facility] [place] [address] Marlen Strange [facility] Medical Billing Coordinator [address] [place] [address] [place] [address] 05/03/2023 Imaging Radiology 05/10/2023 Scheduled Telephone [facility] Amy Zaragoza RN [address] [place] [address] 06/07/2023 Office Visit Family Medicine Rhys Humphrey MD [address] [place] [address] [place] [address] 06/21/2023 Office Visit Cardiology Mi Neil PA-C [address] [place] [address] 09/17/2023 Office Visit Dermatology Marycruz Almazan PA-C [address] [place] [address] [place] [address] 03/18/2024 Nurse Only Ancillary Stanton, Nurse Annual Wellness [address] [place] [address] [place] [address] Health Maintenance Due Date Last Done Comments [...] D LEVEL ONCE IN A LIFETIME-USE SMARTSET# [id number] Completed 06/29/2020, 03/16/2015 COVID-19 Vaccine Completed 07/21/2022, [...] Documents on File Type Date Recorded Patient Shop Hand Expl anation POLST 10/15/2019 3:17 PM POLST POLST 03/05/2019 POLST FORM Advance Directives and Living Will 01/27/2013 LIVING WILL Advance Directives and Living Will 01/27/2013 LIVING WILL Power of Media Law Faculty Member 01/27/2013 POWER OF A TTORNEY Power of Media Law Faculty Member 01/27/2013 POWER OF A TTORNEY Healthcare Agents on File Name Relationship Healthcare Agent Relationship Communication Cydney Benito Other - (no specific identity) Second Alternate Health Care Agent Anyi More Adult Child Health Care Roberth r of Media Law Faculty Member Care Teams Relief Map Modeler Relationship Specialty Start Date End Date Rhys Humphrey MD [address] [place] [address] [place] [address] PCP - General Family Medicine 06/09/21 documented as of this encounter
--- OUTSIDE RECORDS SUMMARY | 2023-08-14 23:32 | External Medical Summary | Summary of Care ---
Author Name Unknown Organization [facility] Address [address] [place] [address] Phone [phone] Care Team Providers Care Shoe Trimmer Name Role Phone Ollie Gonzalez MD Primary Care Provide r Reason for Visit * Reason Onset Date Comments Medication Refill 04/11/2023 Encounter Details Date Type Department Care Team Description 04/11/2023 Refill Family Medicine [address] [place] [id number] Ollie Gonzalez MD [address] [place] [address] [place] [phone] Dyslipidemia, goal LDL below 100; TIA (transient ischemic attack); HTN, goal below 140/90 Allergies Active Allergy Reactions Severity Noted Date [...] Each 0 11/11/2019 Active Nebulizers (NEBULIZER COMPRESSOR) MISCIndications:[employer] D, 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 Use as directed. 1 Each 1 11/17/2019 Active Iron 325 (65 Fe) MG Oral Tablet Take by mouth. 0 Active Cranberry 500 MG Oral Capsule Take 1 Capsule by mouth in the morning and 1 Capsule before bedtime. 50 Cap 0 01/18/2021 Active Zweyqam-Ilvwgvepu-S inc 333-133-5 MG Oral Tablet Take by [...] Base) MCG/ACT Inhalation Aerosol SolutionIndications :COPD, moderate ([facility]) Inhale 2 Puffs [...] :COPD, group D, by GOLD 2017 classification ([facility] [...] mouth daily. 180 Tablet 1 04/11/2023 Active Losartan Potassium 50 [...] mRNA, LNP-s, No Pre serve, 2-Dose Series (Trifacta) 07/11/2021,11/14/2020,10/24/2020 Covid-19, Mrna, Lnp-s, Pf, B ivalent, 30 Mcg, IM, 12 yrs and above (Pfizer) 07/21/2022 Pneumococcal Conjugate Vacc, 13 Valent (Prevnar) 03/16/2015 Pneumococcal Conjugate Vacci ne, 20-valent ([id number]) 07/21/2022 Pneumococcal Polysaccharide PPV23 (Pneumovax) 03/05/2019,07/18/2007 Seasonal [...] encounter Miscellaneous Notes * Telephone Encounter - Deng Hernandez [facility] - 04/11/2023 11:26 AM EDTSigned Prescriptions: Disp Refills Atorvastatin Calcium 40 MG Oral Tablet (Li*90 Tab*1 Sig: Take 1 Tablet by mouth daily. Authorizing Provider: OLLIE GONZALEZ Ordering User: DENG HERNANDEZ Clopidogrel Bisulfate 75 MG Oral Tablet (p*90 Tab*1 Sig: Take 1 Tablet by mouth daily. Authorizing Provider: OLLIE GONZALEZ Ordering User: DENG HERNANDEZar brooks Potassium 50 MG Oral Tablet (Coza*180 Ta*1 Sig: Take 2 Tablets by mouth daily. Authorizing Provider: OLLIE GONZALEZ Ordering User: DENG HERNANDEZ * Telephone Encounter - Chery Morton CPhT - 04/11/2023 10:43 AM EDT Pharmacy requesting new Rxs as pt is going on 2 month trip starting Friday 04/13 and refills remaining on Rxs is not enough for 3-month refills Did you pend patient's preferred pharmacy and medication before forwarding?yes Pharmacy: [facility], [facility] [place]ANDAR[place] Pending Prescriptions: Disp Refills Atorvastatin Calcium 40 MG Oral Tablet (L*90 Tab*1 Sig: Take 1 Tablet by mouth in the morning. Clopidogrel Bisulfate 75 MG Oral Tablet (*90 Tab*1 Sig: Take 1 Tablet by mouth in the morning. Losartan Potassium 50 MG Oral Tablet (Coz*180 Ta*3 Sig: Take 2 Tablets by mouth in the morning. Last Visit: 03/16/2023 (in office), Visit date not found (telemedicine) Next Visit: 06/07/2023 If no future appointments scheduled, and last appointment is greater than a year ago, please schedule patient for a follow-up appointment Last date the medication was ordered: 10/24/2022 Is this request for a controlled substance?No Urine Drug Screen:No results found. However, due to the size of the patient record, not all encounters were searched. Please check Results Review for a complete set of results. Patient Phone Numbers Labs: Lab Results Component Value Date/Time CREAT 0.8 09/26/2022 04:06 PM CREAT 1.0 06/29/2020 12:24 PM POTASSIUM 4.0 09/26/2022 04:06 PM POTASSIUM 4.1 06/29/2020 12:24 PM TSH 3.16 09/26/2022 04:06 PM TSH 3.53 08/08/2012 10:00 AM LDLCALC 84 04/28/2022 09:23 AM LDLCALC 80 03/03/2019 09:10 AM LDLDIRECT NOT APPLICABLE 03/03/2019 09:10 AM ALT 23 09/26/2022 04:06 PM ALT 24 06/29/2020 12:24 PM HGBA1C 5.3 07/07/2021 11:34 AM HGBA1C 6.3 (H) 06/29/2020 12:24 PM documented in this encounter Plan of Treatment Upcoming Encounters Date Type Specialty Care Team Description 04/11/2023 Scheduled Telephone [facility], Josephine [address] [place] [address] 04/13/2023 Telemedicine [facility] Denise Do PA-C [address] [place] [address] Marlen Strange, Pending Sale To [facility] [address] [place] [address] 05/03/2023 Imaging Radiology 05/10/2023 Scheduled Telephone [facility] Amy Zaragoza, RN [address] [place] [address] 06/07/2023 Office Visit Family Medicine Ollie Gonzalez MD [address] [place] [address] [place] [address] 06/21/2023 Office Visit Cardiology Mi Neil PA-C [address] [place] [address] 09/17/2023 Office Visit Dermatology Marycruz Almazan PA-C [address] [place] [address] [place] [address] 03/18/2024 Nurse Only Ancillary Stanton, Nurse Annual Wellness [address] [place] [address] [place] [address] Health Maintenance Due Date Last Done Comments [...] D LEVEL ONCE IN A LIFETIME-USE SMARTSET# [id number] Completed 06/29/2020, 03/16/2015 COVID-19 Vaccine Completed 07/21/2022, [...] as of this encounter Visit Diagnoses Diagnosis Dyslipidemia, goal LDL below 100 Other and unspecified hyperlipidemia TIA (transient ischemic attack) Unspecified transient cerebral ischemia HTN, goal below 140/90 Unspecified essential hypertension documented in this encounter Advance Directives Documents on File Type Date Recorded Patient Strickler Attendant Expl anation POLST 10/15/2019 3:17 PM POLST POLST 03/05/2019 POLST FORM Advance Directives and Living Will 01/27/2013 LIVING WILL Advance Directives and Living Will 01/27/2013 LIVING WILL Power of Natural Gas Inspector 01/27/2013 POWER OF A TTORNEY Power of Natural Gas Inspector 01/27/2013 POWER OF A TTORNEY Healthcare Agents on File Name Relationship Healthcare Agent Relationship Communication Cydney Benito Other - (no specific identity) Second Alternate Health Care Agent Anyi More Adult Child Health Care Roberth r of Natural Gas Inspector Care Teams Shoe Trimmer Relationship Specialty Start Date End Date Ollie Gonzalez MD [address] [place] [address] [place] [phone] PCP - General Family Medicine 06/09/21 documented as of this encounter
--- OUTSIDE RECORDS SUMMARY | 2023-08-14 23:32 | External Medical Summary | Summary of Care ---
Author Name Unknown Organization [facility] Address [address] [place] [address] Phone [phone] Care Team Providers Care Trap Setter Name Role Phone Rhys Humphrey MD Primary Care Provide r Reason for Visit * Reason Onset Date Comments Med Request 04/11/2023 Encounter Details Date Type Department Care Team Description 04/11/2023 Telephone Family Medicine [address] [phone] Rhys Humphrey MD [address] [place] [address] [place] [address] Med Request Allergies Active Allergy Reactions [...] before bedtime. 50 Cap 0 01/18/2021 Active Ffeonmk-Mmnimstse-Oi nc 333-133-5 MG Oral Tablet Take by [...] MCG/INH Inhalation Aerosol Powder Breath Activated (umeclidinium-vilant ed)Indications:[employer] D, moderate (HCC),COPD, group D, by GOLD [...] ns:Moderate chronic obstructive pulmonary disease ([facility]) TAKE ONE TABLET BY MOUTH EVERY DAY [...] mRNA, LNP-s, No Pre serve, 2-Dose Series (gis.to) 07/11/2021,11/14/2020,10/24/2020 Covid-19, Mrna, Lnp-s, Pf, B ivalent, 30 Mcg, IM, 12 yrs and above (gis.to) 07/21/2022 Pneumococcal Conjugate Vacc, 13 Valent (Prevnar) 03/16/2015 Pneumococcal Conjugate Vacci ne, 20-valent ([id number]) 07/21/2022 Pneumococcal Polysaccharide PPV23 (Pneumovax) 03/05/2019,07/18/2007 Seasonal [...] encounter Miscellaneous Notes * Telephone Encounter - Sidney Rg LPN - 04/11/2023 5:11 PM EDT Provider to address: PCP Reason for Call: Med Request Contact: Telephone Call Contact Type: Medication Outcome: Contacted patient and she gets bubble packs from [facility]. I called [facility] and she requested updated Med list and will talk with Amy Zaragoza about Medicaitons Total Time including non face to face (minutes): 15 * Telephone Encounter - Rhys Humphrey MD - 04/11/2023 12:05 PM EDT Pt is not taking hydralazine - therefore no need for refill * Telephone Encounter - Bindu Davison LPN - 04/11/2023 10:51 AM EDT Hydralazine removed from med list by [facility] on 12/29/22 Should pt still be [...] 04/13 Thank you, Chery Morton, Tech 1 Final Inspector [facility] ([facility] (formerly [facility]) 04/11/2023, 10:44 AM documented in this encounter Plan of Treatment Upcoming Encounters Date Type Specialty Care Team Description 04/13/2023 Telemedicine [facility] Denise Do PA-C [address] [place] [address] Marlen Strange, [address] [place] [address] 05/03/2023 Imaging Radiology 05/10/2023 Scheduled Telephone [facility] Amy Zaragoza, RN [address] [place] [address] 06/07/2023 Office Visit Family Medicine Rhys Humphrey MD [address] [place] [address] [place] [address] 06/21/2023 Office Visit Cardiology Mi Neil PA-C [address] [place] [address] 09/17/2023 Office Visit Dermatology Marycruz Almazan PA-C [address] [place] [address] [place] [address] 03/18/2024 Nurse Only Ancillary Movalley, Nurse Annual Wellness [address] [place] [address] [place] [address] Health Maintenance Due Date Last Done Comments [...] D LEVEL ONCE IN A LIFETIME-USE SMARTSET# [id number] Completed 06/29/2020, 03/16/2015 COVID-19 Vaccine Completed 07/21/2022, [...] Documents on File Type Date Recorded Patient Advertising Account Executive Expl anation POLST 10/15/2019 3:17 PM POLST POLST 03/05/2019 POLST FORM Advance Directives and Living Will 01/27/2013 LIVING WILL Advance Directives and Living Will 01/27/2013 LIVING WILL Power of Type Mapper 01/27/2013 POWER OF A TTORNEY Power of Type Mapper 01/27/2013 POWER OF A TTORNEY Healthcare Agents on File Name Relationship Healthcare Agent Relationship Communication Cydney Benito Other - (no specific identity) Second Alternate Health Care Agent Anyi More Adult Child Health Care Roberth cooper of Type Mapper Care Teams Trap Setter Relationship Specialty Start Date End Date Rhys Humphrey MD [address] [place] [address] [place] [address] PCP - General Family Medicine 06/09/21 documented as of this encounter
--- OUTSIDE RECORDS SUMMARY | 2023-08-14 23:32 | External Medical Summary | Summary of Care ---
Author Name Unknown Organization [facility] Address [address] [place] [address] Phone [phone] Care Team Providers Care Personnel Administrator Name Role Phone Rhys Humphrey MD Primary Care Provide r Reason for Referral * Evaluate & Treat - Unlimited Visits (Within 30 days (routine)) - Authorized Specialty Diagnoses / Procedures Referred By Contalexander t Referred To Contact Obstetrics/Gynecology / Gynecology Obstetrics Diagnoses Vaginal irritation Lichen sclerosus et atrophicus Rhys Humphrey MD [address] [place] [address] [place] [address] Referral ID Status Reason Start Date Expiration Date Visits Requested Visits Authorized [id number] Authorized Specialty Services Required 04/12/2023 999 999 Question Answer Referral Priority Within 30 days (routine) What condition is the patient being seen for? Other Reason for Visit * Reason Onset Date Comments Med Change Request 04/05/2023 Replace Anastasia rin with another medication Encounter Details Date Type Department Care Team Description 04/05/2023 Telephone Family Medicine [address] [place] [phone] Rhys Humphrey MD [address] [place] [address] [place] [address] Med Change Request (Replace Premarin with ... [...] Each 0 11/11/2019 Active Nebulizers (NEBULIZER COMPRESSOR) MISCIndications:RN ACCESS D, 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 Use as directed. 1 Each 1 11/17/2019 Active Iron 325 (65 Fe) MG Oral Tablet Take by mouth. 0 Active Cranberry 500 MG Oral Capsule Take 1 Capsule by mouth in the morning and 1 Capsule before bedtime. 50 Cap 0 01/18/2021 Active Ifdrsbb-Fmqniphoq-J inc 333-133-5 MG Oral Tablet Take by [...] mRNA, LNP-s, No Pre serve, 2-Dose Series ([employer]) 07/11/2021,11/14/2020,10/24/2020 Covid-19, Mrna, Lnp-s, Pf, B ivalent, 30 Mcg, IM, 12 yrs and above (Pfizer) 07/21/2022 Pneumococcal Conjugate Vacc, 13 Valent (Prevnar) 03/16/2015 Pneumococcal Conjugate Vacci ne, 20-valent ([id number]) 07/21/2022 Pneumococcal Polysaccharide PPV23 (Pneumovax) 03/05/2019,07/18/2007 Seasonal [...] Miscellaneous Notes * Telephone Encounter - ISELA Leon - [...] improvement on premarin cream - I recommend physician gynecologist follow up * Telephone Encounter - ISELA Islas - 04/05/2023 11:17 AM EDT Pt requesting medication change from Premarin to something else. Pt advised it has not helped and she is very sore in the vaginal area. Pharmacy: [facility] documented in this encounter Plan of Treatment Upcoming Encounters Date Type Specialty Care Team Description 04/13/2023 Telemedicine [facility] Denise Do PA-C [address] [facility] [place] [address] Marlen Strange [address] [place] [address] 05/03/2023 Imaging Radiology 05/10/2023 Scheduled Telephone [facility] Amy Zaragoza RN [address] [place] [address] 06/07/2023 Office Visit Family Medicine Rhys Humphrey MD [address] [place] [address] [place] [address] 06/21/2023 Office Visit Cardiology Mi Neil PA-C [address] [place] [address] 09/17/2023 Office Visit Dermatology Marycruz Almazan PA-C [address] [place] [address] [place] [address] 03/18/2024 Nurse Only Ancillary Movalley, Nurse Annual Wellness [address] [place] [address] [place] [address] Scheduled Referrals Name Type Priority Associated Diagnoses Orde r Schedule HEALTHCARE ECONOMICS MANAGER REFERRAL OP Referral Within 30 days (routine) [...] D LEVEL ONCE IN A LIFETIME-USE SMARTSET# [id number] Completed 06/29/2020, 03/16/2015 COVID-19 Vaccine Completed 07/21/2022, [...] Documents on File Type Date Recorded Patient Keno Clerk Expl anation POLST 10/15/2019 3:17 PM POLST POLST 03/05/2019 POLST FORM Advance Directives and Living Will 01/27/2013 LIVING WILL Advance Directives and Living Will 01/27/2013 LIVING WILL Power of Superintendent Police 01/27/2013 POWER OF A TTORNEY Power of Superintendent Police 01/27/2013 POWER OF A TTORNEY Healthcare Agents on File Name Relationship Healthcare Agent Relationship Communication Cydney Benito Other - (no specific identity) Second Alternate Health Care Agent Anyi More Adult Child Health Care Roberth r of Superintendent Police Care Teams Personnel Administrator Relationship Specialty Start Date End Date Rhys Humphrey MD [address] [place] [address] [place] [address] PCP - General Family Medicine 06/09/21 documented as of this encounter
--- OUTSIDE RECORDS SUMMARY | 2023-08-14 23:33 | External Medical Summary | Summary of Care ---
Author Name Unknown Organization [facility] Address [address] [place] [address] Phone [phone] Care Team Providers Care Screw Machine Operator Swiss Type Name Role Phone Rhys Humphrey MD Primary Care Provide r Reason for Visit * Reason Onset Date Comments Order Request 04/04/2023 Status Check 04/04/2023 Encounter Details Date Type Department Care Team Description 04/04/[address] [phone] Rhys Humphrey MD [address] [place] [address] [place] [address] Order Request; Status Check Allergies Active Allergy Reactions Severity Noted Date Comments Adhesive Tape Other (Please comment),Hives High 09/29/2008 Caused welts Dextromethorphan-Gua ifenesin Neuro complications (Please comment) Medium 12/23/2021 Feels lightheaded/"foggy" documented as of this encounter (statuses as of 04/09/2023) Medications Medication Sig Dispensed Refills Start Date [...] before bedtime. 50 Cap 0 01/18/2021 Active Dbafpsw-Suxuozmmr-Pb nc 333-133-5 MG Oral Tablet Take by [...] MCG/INH Inhalation Aerosol Powder Breath Activated (umeclidinium-vilant ed)Indications:PAINT SPECIALIST D, moderate (HCC),COPD, group D, by [...] as of this encounter (statuses as of 04/09/2023) Active Problems Problem Noted Date Acute serous [...] as of this encounter (statuses as of 04/09/2023) Resolved Problems Problem Noted Date Resolved Date [...] as of this encounter (statuses as of 04/09/2023) Immunizations Name Administration Dates Next Due COVID-19 mRNA, LNP-s, No Pre serve, 2-Dose Series ([employer]) 07/11/2021,11/14/2020,10/24/2020 Covid-19, Mrna, Lnp-s, Pf, B ivalent, 30 Mcg, IM, 12 yrs and above ([employer]) 07/21/2022 Pneumococcal Conjugate Vacc, 13 Valent (Prevnar) 03/16/2015 Pneumococcal Conjugate Vacci ne, 20-valent ([id number]) 07/21/2022 Pneumococcal Polysaccharide PPV23 (Pneumovax) 03/05/2019,07/18/2007 Seasonal [...] ISELA Espinosa - 04/09/2023 9:06 AM EDT lmdavid 04/09 * Telephone Encounter - ISELA Espinosa [...] replacement machine. [facility] took it but never replaced it or called her about it. Pt has an order but needs it faxed to [facility]. Faxed order to [phone] * Telephone Encounter - Bindu Davison LPN - 04/04/2023 4:13 PM EDT PCP office does not order CPAP machines - this comes from Sleep Medicine * Telephone Encounter - Arelis Oswald CPhT - 04/04/2023 2:54 PM EDT Name of Requestor: Keisha Vijay Order Request: Cpap machine - ROUTE TO CLINIC NURSE POOL Diagnosis/Reason for Request: Pt states she has been waiting for a cpap machine for a year. Does the order need to be faxed somewhere? If so, where?: [facility] Fax Number, if applicable: [phone] Call Back Number: [phone] Thank you, Mary Oswald Green Promotions Specialist I [facility] Pharmacy Services (Formerly Telepharmacy) 04/04/2023,2:56 PM documented in this encounter Plan of Treatment Upcoming Encounters Date Type Specialty Care Team Description 04/09/2023 Home Visit [facility] JozefAmy, RN [address] [place] [address] 04/13/2023 Telemedicine [facility] Ernestina, Denise Winkler PA-C [address] [facility] [place] [address] Marlen Strange Community Health Voice Coach [address] [place] [address] [place] [address] 05/03/2023 Imaging Radiology 06/07/2023 Office Visit Family Medicine Rhys Humphrey MD [address] [place] [address] [place] [address] 06/21/2023 Office Visit Cardiology Mi Neil PA-C [address] [place] [address] 09/17/2023 Office Visit Dermatology Marycruz Almazan PA-C [address] [place] [address] [place] [address] 03/18/2024 Nurse Only Ancillary Movalley, Nurse Annual Wellness [address] [place] [address] [place] [address] Health Maintenance Due Date Last Done Comments [...] ASSESSMENT COMPLETED IN PAST YEAR FOR COPD 03/16/2024 03/16/2023 Albumin/Creatinine Ratio 04/28/2025 04/28/2022 DTaP,Tdap,and Td Vaccines (3 - Td or Tdap) 09/17/2029 09/17/2019, 08/10/2011, 10/01/2001 Zoster Vaccines Completed 04/25/2020, 08/31, 07/22/2012 VITAMIN D LEVEL ONCE IN A LIFETIME-USE SMARTSET# [id number] Completed 06/29/2020, 03/16/2015 COVID-19 Vaccine Completed 07/21/2022, [...] Documents on File Type Date Recorded Patient Applier Expl anation POLST 10/15/2019 3:17 PM POLST POLST 03/05/2019 POLST FORM Advance Directives and Living Will 01/27/2013 LIVING WILL Advance Directives and Living Will 01/27/2013 LIVING WILL Power of Marketing Communications Leader 01/27/2013 POWER OF A TTORNEY Power of Marketing Communications Leader 01/27/2013 POWER OF A TTORNEY Healthcare Agents on File Name Relationship Healthcare Agent Relationship Communication Cydney Benito Other - (no specific identity) Second Alternate Health Care Agent Anyi More Adult Child Health Care Roberth cooper of Marketing Communications Leader Care Teams Screw Machine Operator Swiss Type Relationship Specialty Start Date End Date Rhys Humphrey MD [address] [place] [address] [place] [address] PCP - General Family Medicine 06/09/21 documented as of this encounter
--- OUTSIDE RECORDS SUMMARY | 2023-08-14 23:33 | External Medical Summary | Summary of Care ---
Author Name Unknown Organization [facility] Address [address] [place] [address] Phone [phone] Care Team Providers Care Chinchilla Machine Operator Name Role Phone Rhys Humphrey MD Primary Care Provide r Reason for Visit * Reason Onset Date Comments [facility]: Maintenance 04/02/2023 Encounter Details Date Type Department Care Team Description 04/02/2023 Scheduled Telephone [facility], [facility] [address] [facility] [place] [address] Coordinator, [facility] [address] [facility] [place] [address] Allergies Active Allergy Reactions Severity Noted Date Comments Adhesive Tape Other (Please comment),Hives High 09/29/2008 Caused welts Dextromethorphan-Gua ifenesin Neuro complications (Please comment) Medium 12/23/2021 Feels lightheaded/"foggy" documented as of this encounter (statuses as of 04/02/2023) Medications Medication Sig Dispensed Refills Start Date [...] before bedtime. 50 Cap 0 01/18/2021 Active Xcqvlck-Vejxedtix-Kx nc 333-133-5 MG Oral Tablet Take by [...] MCG/INH Inhalation Aerosol Powder Breath Activated (umeclidinium-vilant ed)Indications:YOUTH CAREER SPECIALIST D, moderate (HCC),COPD, group D, by [...] as of this encounter (statuses as of 04/02/2023) Active Problems Problem Noted Date Acute serous [...] as of this encounter (statuses as of 04/02/2023) Resolved Problems Problem Noted Date Resolved Date [...] as of this encounter (statuses as of 04/02/2023) Immunizations Name Administration Dates Next Due COVID-19 mRNA, LNP-s, No Pre serve, 2-Dose Series ([employer]) 07/11/2021,11/14/2020,10/24/2020 Covid-19, Mrna, Lnp-s, Pf, B ivalent, 30 Mcg, IM, 12 yrs and above ([employer]) 07/21/2022 Pneumococcal Conjugate Vacc, 13 Valent (Prevnar) 03/16/2015 Pneumococcal Conjugate Vacci ne, 20-valent ([id number]) 07/21/2022 Pneumococcal Polysaccharide PPV23 (Pneumovax) 03/05/2019,07/18/2007 Seasonal [...] Telephone Encounter - Melissa Almaraz RN - 04/02/2023 9:44 AM EDT PC to patient to follow up if she received nebulizer Called 0416# MB full unable to leave message PC to DTR Anyi. No answer on either number. left VMM on 3102# to return call to [facility] regarding the same If DTR calls back please assess for neb and patient status Melissa Almaraz RN, BSN [facility] ball warper tenderDurability Technician documented in this encounter Plan of Treatment Upcoming Encounters Date Type Specialty Care Team Description 04/09/2023 Home Visit [facility] Amy Zaragoza RN [address] [facility] [place] [address] 05/01/2023 Imaging Radiology 06/07/2023 Office Visit Family Medicine Rhys Humphrey MD [address] [place] [address] [place] [address] 06/21/2023 Office Visit Cardiology Mi Neil PA-C [address] [place] [address] 09/17/2023 Office Visit Dermatology Marycruz Almazan PA-C [address] [place] [address] [place] [address] 03/18/2024 Nurse Only Ancillary Movalley, Nurse Annual Wellness [address] [place] [address] [place] [address] Health Maintenance Due Date Last Done Comments [...] D LEVEL ONCE IN A LIFETIME-USE SMARTSET# [id number] Completed 06/29/2020, 03/16/2015 COVID-19 Vaccine Completed 07/21/2022, [...] Documents on File Type Date Recorded Patient Department Chair Expl anation POLST 10/15/2019 3:17 PM POLST POLST 03/05/2019 POLST FORM Advance Directives and Living Will 01/27/2013 LIVING WILL Advance Directives and Living Will 01/27/2013 LIVING WILL Power of Automatic Die Cutting Machine Operator 01/27/2013 POWER OF A TTORNEY Power of Automatic Die Cutting Machine Operator 01/27/2013 POWER OF A TTORNEY Healthcare Agents on File Name Relationship Healthcare Agent Relationship Communication Cydney Benito Other - (no specific identity) Second Alternate Health Care Agent Anyi More Adult Child Health Care Roberth r of Automatic Die Cutting Machine Operator Care Teams Chinchilla Machine Operator Relationship Specialty Start Date End Date Rhys Humphrey MD [address] [place] [address] [place] [address] PCP - General Family Medicine 06/09/21 documented as of this encounter
--- OUTSIDE RECORDS SUMMARY | 2023-08-14 23:33 | External Medical Summary | Summary of Care ---
Author Name Unknown Organization [facility] Address [address] [place] [address] Phone [phone] Care Team Providers Care Unmanned Equipment Operator Name Role Phone Rhys Humphrey MD Primary Care Provide r Reason for Visit * Reason Onset Date Comments Order Request 04/04/2023 Status Check 04/04/2023 Encounter Details Date Type Department Care Team Description 04/04/[address] [phone] Rhys Humphrey MD [address] [place] [address] [place] [address] Order Request; Status Check Allergies Active Allergy Reactions Severity Noted Date Comments Adhesive Tape Other (Please comment),Hives High 09/29/2008 Caused welts Dextromethorphan-Gua ifenesin Neuro complications (Please comment) Medium 12/23/2021 Feels lightheaded/"foggy" documented as of this encounter (statuses as of 04/05/2023) Medications Medication Sig Dispensed Refills Start Date [...] before bedtime. 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),COPD, group D, by GOLD [...] as of this encounter (statuses as of 04/05/2023) Active Problems Problem Noted Date Acute serous [...] as of this encounter (statuses as of 04/05/2023) Resolved Problems Problem Noted Date Resolved Date [...] as of this encounter (statuses as of 04/05/2023) Immunizations Name Administration Dates Next Due COVID-19 mRNA, LNP-s, No Pre serve, 2-Dose Series ([employer]) 07/11/2021,11/14/2020,10/24/2020 Covid-19, Mrna, Lnp-s, Pf, B ivalent, 30 Mcg, IM, 12 yrs and above ([employer]) 07/21/2022 Pneumococcal Conjugate Vacc, 13 Valent (Prevnar) 03/16/2015 Pneumococcal Conjugate Vacci ne, 20-valent ([id number]) 07/21/2022 Pneumococcal Polysaccharide PPV23 (Pneumovax) 03/05/2019,07/18/2007 Seasonal [...] encounter Miscellaneous Notes * Telephone Encounter - Page Lawrence LPN - 04/05/2023 12:25 PM EDT On February 02 a phn encounter was sent to scheduling. Pt needs seen to discuss having a PSG . Would need seen for an updated face to face for an order Pt aware she needs an appt * Telephone Encounter - SIELA Islas - 04/05/2023 11:20 AM EDT Pt called to check status of CPAP replacement machine. [facility] took it but never replaced it or called her about it. Pt has an order but needs it faxed to [facility]. Faxed order to [phone] * Telephone Encounter - Bindu Davison LPN - 04/04/2023 4:13 PM EDT PCP office does not order CPAP machines - this comes from Sleep Medicine * Telephone Encounter - Arelis Oswald CPhT - 04/04/2023 2:54 PM EDT Name of Requestor: Keisha Ibarramarifermicheal Order Request: Cpap machine - ROUTE TO CLINIC NURSE POOL Diagnosis/Reason for Request: Pt states she has been waiting for a cpap machine for a year. Does the order need to be faxed somewhere? If so, where?: [facility] Fax Number, if applicable: [phone] Call Back Number: [phone] Thank you, Mary Oswald Clinical Staff Anesthesiologist I Centralized Clinical Pharmacy Services (Formerly Telepharmacy) 04/04/2023,2:56 PM documented in this encounter Plan of Treatment Upcoming Encounters Date Type Specialty Care Team Description 04/09/2023 Home Visit [facility] Amy Zaragoza RN [address] [facility] [place] [address] 04/13/2023 Telemedicine [facility] Denise Do PA-C [address] [facility] [place] [address] Marlen Strange, [facility] [address] [place] [address] 05/03/2023 Imaging Radiology 06/07/2023 Office Visit Family Medicine Rhys Humphrey MD [address] [place] [address] [place] [address] 06/21/2023 Office Visit Cardiology Mi Neil PA-C [address] [place] [address] 09/17/2023 Office Visit Dermatology Marycruz Almazan PA-C [address] [place] [address] [place] [address] 03/18/2024 Nurse Only Ancillary Movalley, Nurse Annual Wellness [address] [place] [address] [place] [address] Health Maintenance Due Date Last Done Comments [...] D LEVEL ONCE IN A LIFETIME-USE SMARTSET# [id number] Completed 06/29/2020, 03/16/2015 COVID-19 Vaccine Completed 07/21/2022, [...] Documents on File Type Date Recorded Patient Pest Control Worker Expl anation POLST 10/15/2019 3:17 PM POLST POLST 03/05/2019 POLST FORM Advance Directives and Living Will 01/27/2013 LIVING WILL Advance Directives and Living Will 01/27/2013 LIVING WILL Power of Insurance Writer 01/27/2013 POWER OF A TTORNEY Power of Insurance Writer 01/27/2013 POWER OF A TTORNEY Healthcare Agents on File Name Relationship Healthcare Agent Relationship Communication Cydney Benito Other - (no specific identity) Second Alternate Health Care Agent Anyi More Adult Child Health Care Roberth r of Insurance Writer Care Teams Unmanned Equipment Operator Relationship Specialty Start Date End Date Rhys Humphrey MD [address] [place] [address] [place] [address] PCP - General Family Medicine 06/09/21 documented as of this encounter
--- OUTSIDE RECORDS SUMMARY | 2023-08-14 23:33 | External Medical Summary | Summary of Care ---
Author Name Unknown Organization [facility] Address [address] [place] [address] Phone [phone] Care Team Providers Care Director Global Market Research Name Role Phone Rhys Humphrey MD Primary Care Provide r Reason for Visit * Reason Onset Date Comments [facility]: Maintenance 04/01/2023 Encounter Details Date Type Department Care Team Description 04/01/2023 Scheduled Telephone [facility], [facility] [address] [facility] [place] [address] [facility], Nurse [facility] [address] [place] [address] Allergies Active Allergy Reactions Severity Noted Date Comments Adhesive Tape Other (Please comment),Hives High 09/29/2008 Caused welts Dextromethorphan-Gua ifenesin Neuro complications (Please comment) Medium 12/23/2021 Feels lightheaded/"foggy" documented as of this encounter (statuses as of 04/01/2023) Medications Medication Sig Dispensed Refills Start Date [...] before bedtime. 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),COPD, group D, by GOLD [...] as of this encounter (statuses as of 04/01/2023) Active Problems Problem Noted Date Acute serous [...] as of this encounter (statuses as of 04/01/2023) Resolved Problems Problem Noted Date Resolved Date [...] as of this encounter (statuses as of 04/01/2023) Immunizations Name Administration Dates Next Due COVID-19 mRNA, LNP-s, No Pre serve, 2-Dose Series ([employer]) 07/11/2021,11/14/2020,10/24/2020 Covid-19, Mrna, Lnp-s, Pf, B ivalent, 30 Mcg, IM, 12 yrs and above ([employer]) 07/21/2022 Pneumococcal Conjugate Vacc, 13 Valent (Prevnar) 03/16/2015 Pneumococcal Conjugate Vacci ne, 20-valent ([id number]) 07/21/2022 Pneumococcal Polysaccharide PPV23 (Pneumovax) 03/05/2019,07/18/2007 Seasonal [...] encounter Miscellaneous Notes * Telephone Encounter - Arianna Dalton RN - 04/01/2023 10:13 AM EDT Triage [place] patient Called and spoke with patient. She reports she was soaking the nebulizer prior to leaving for vacation & She came back and a piece was missing. She cannot locate this. Reports [employer] company is [facility] Patient. PC placed to [facility] Patient. Spoke with Nichole. Gave information. Nichole states she will send information to the office & [employer] will call patient tomorrow . Call back to patient with the above information. Added for PC to ensure patient has new nebulizer delivered. Patient encouraged to call [facility] intake phone number for all urgent, non-emergent health issues, phone number provided. documented in this encounter Plan of Treatment Upcoming Encounters Date Type Specialty Care Team Description 04/02/2023 Scheduled Telephone [facility] Housekeeping Manager, Josephine Zhou [address] [place] [address] 04/09/2023 Home Visit [facility] Amy Zaragoza, RN [address] [place] [address] 05/01/2023 Imaging Radiology 06/07/2023 Office Visit Family Medicine Rhys Humphrey MD [address] [place] [address] [place] [address] 06/21/2023 Office Visit Cardiology Mi Neil PA-C [address] [place] [address] 09/17/2023 Office Visit Dermatology Marycruz Almazan PA-C [address] [place] [address] [place] [address] 03/18/2024 Nurse Only Ancillary Movbjorney, Nurse Annual Wellness [address] [place] [address] [place] [address] Health Maintenance Due Date Last Done Comments [...] D LEVEL ONCE IN A LIFETIME-USE SMARTSET# [id number] Completed 06/29/2020, 03/16/2015 COVID-19 Vaccine Completed 07/21/2022, [...] Documents on File Type Date Recorded Patient Leasing Director Expl anation POLST 10/15/2019 3:17 PM POLST POLST 03/05/2019 POLST FORM Advance Directives and Living Will 01/27/2013 LIVING WILL Advance Directives and Living Will 01/27/2013 LIVING WILL Power of Cma Or Lpn 01/27/2013 POWER OF A TTORNEY Power of Cma Or Lpn 01/27/2013 POWER OF A TTORNEY Healthcare Agents on File Name Relationship Healthcare Agent Relationship Communication Cydney Benito Other - (no specific identity) Second Alternate Health Care Agent Anyi More Adult Child Health Care Roberth r of Cma Or Lpn Care Teams Director Global Market Research Relationship Specialty Start Date End Date Rhys Humphrey MD [address] [place] [address] [place] [address] PCP - General Family Medicine 06/09/21 documented as of this encounter
--- OUTSIDE RECORDS SUMMARY | 2023-08-14 23:33 | External Medical Summary | Summary of Care ---
Author Name Unknown Organization [facility] Address [address] [place] [address] Phone [phone] Care Team Providers Care Special Education Supervisor Name Role Phone Rhys Humphrey MD Primary Care Provide r Reason for Visit * Reason Onset Date Comments Appointment 04/05/2023 Encounter Details Date Type Department Care Team Description 04/05/2023 Telephone [facility] [place] [address] [place], [place] [id number] Services, Scheduling [address] [place] [address] Appointment (//) Allergies Active Allergy Reactions Severity Noted Date [...] before bedtime. 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),COPD, group D, by [...] mRNA, LNP-s, No Pre serve, 2-Dose Series ([employer]) 07/11/2021,11/14/2020,10/24/2020 Covid-19, Mrna, Lnp-s, Pf, B ivalent, 30 Mcg, IM, 12 yrs and above ([employer]) 07/21/2022 Pneumococcal Conjugate Vacc, 13 Valent (Prevnar) 03/16/2015 Pneumococcal Conjugate Vacci ne, 20-valent ([id number]) 07/21/2022 Pneumococcal Polysaccharide PPV23 (Pneumovax) 03/05/2019,07/18/2007 Seasonal [...] Miscellaneous Notes * Telephone Encounter - ISELA Edwards - 04/05/2023 11:46 AM EDT Request to r/s the 03/30 appt that pat cx and I found 04/13@330 and called but had to lmom of daughter documented in this encounter Plan of Treatment Upcoming Encounters Date Type Specialty Care Team Description 04/09/2023 Home Visit [facility] Amy Zaragoza RN [address] [place] [address] 04/13/2023 Telemedicine [facility] Denise Do PA-C [address] [facility] [place] [address] Marlen Strange, Community [facility] Pressroom Supervisor [address] [place] [address] [place] [address] 05/03/2023 Imaging Radiology 06/07/2023 Office Visit Family Medicine Rhys Humphrey MD [address] [place] [address] [place] [address] 06/21/2023 Office Visit Cardiology Mi Neil PA-C [address] [place] [address] 09/17/2023 Office Visit Dermatology Marycruz Almazan PA-C [address] [place] [address] [place] [address] 03/18/2024 Nurse Only Ancillary Movalley, Nurse Annual Wellness [address] [place] [address] [place] [address] Health Maintenance Due Date Last Done Comments [...] D LEVEL ONCE IN A LIFETIME-USE SMARTSET# [id number] Completed 06/29/2020, 03/16/2015 COVID-19 Vaccine Completed 07/21/2022, [...] on File Type Date Recorded Patient Insights Manager Expl anation POLST 10/15/2019 3:17 PM POLST POLST 03/05/2019 POLST FORM Advance Directives and Living Will 01/27/2013 LIVING WILL Advance Directives and Living Will 01/27/2013 LIVING WILL Power of Pouring Crane Operator 01/27/2013 POWER OF A TTORNEY Power of Pouring Crane Operator 01/27/2013 POWER OF A TTORNEY Healthcare Agents on File Name Relationship Healthcare Agent Relationship Communication Cydney Benito Other - (no specific identity) Second Alternate Health Care Agent Anyi More Adult Child Health Care Roberth r of Pouring Crane Operator Care Teams Special Education Supervisor Relationship Specialty Start Date End Date Rhys Humphrey MD [address] [place] [address] [place] [id number] PCP - General Family Medicine 06/09/21 documented as of this encounter
--- OUTSIDE RECORDS SUMMARY | 2023-08-14 23:33 | External Medical Summary | Summary of Care ---
Author Name Unknown Organization [facility] Address [address] [place] [address] Phone [phone] Care Team Providers Care Development Chemist Name Role Phone Rhys Humphrey MD Primary Care Provide r Reason for Visit * Reason Onset Date Comments Order Request 04/04/2023 Status Check 04/04/2023 Encounter Details Date Type Department Care Team Description 04/04/[address] [phone] Rhys Humphrey MD [address] [place] [address] [place] [address] Order Request; Status Check Allergies Active Allergy [...] before bedtime. 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 [facility] took it but never replaced it or called her about it. Pt has an order but needs it faxed to [facility]. Faxed order to [phone] * Telephone Encounter - Bindu Davison LPN [...] to be faxed somewhere? If so, where?: [facility] Fax Number, if applicable: [phone] Call Back Number: [phone] Thank you, Mary Oswald Bleach Maker I [facility] (Formerly Telepharmacy) 04/04/2023,2:56 PM documented in this encounter Plan of Treatment Upcoming Encounters Date Type Specialty Care Team Description 04/09/2023 Home Visit [facility] Amy Zaragoza RN [address] [place] [address] 05/03/2023 Imaging Radiology 06/07/2023 Office Visit Family Medicine Rhys Humphrey MD [address] [place] [address] [place] [address] 06/21/2023 Office Visit Cardiology Mi Neil PA-C [address] [place] [address] 09/17/2023 Office Visit Dermatology Marycruz Almazan PA-C [address] [place] [address] [place] [address] 03/18/2024 Nurse Only Ancillary Pepperey, Nurse Annual Wellness [address] [place] [address] [place] [address] Health Maintenance Due Date Last Done Comments [...] D LEVEL ONCE IN A LIFETIME-USE SMARTSET# [id number] Completed 06/29/2020, 03/16/2015 COVID-19 Vaccine Completed 07/21/2022, [...] Documents on File Type Date Recorded Patient Nurse Assessor Expl anation POLST 10/15/2019 3:17 PM POLST POLST 03/05/2019 POLST FORM Advance Directives and Living Will 01/27/2013 LIVING WILL Advance Directives and Living Will 01/27/2013 LIVING WILL Power of Counter Caser 01/27/2013 POWER OF A TTORNEY Power of Counter Caser 01/27/2013 POWER OF A TTORNEY Healthcare Agents on File Name Relationship Healthcare Agent Relationship Communication Cydney Benito Other - (no specific identity) Second Alternate Health Care Agent Anyi More Adult Child Health Care Roberth r of Counter Caser Care Teams Development Chemist Relationship Specialty Start Date End Date Rhys Humphrey MD [address] [place] [address] [place] [address] PCP - General Family Medicine 06/09/21 documented as of this encounter
--- OUTSIDE RECORDS SUMMARY | 2023-08-14 23:33 | External Medical Summary | Summary of Care ---
Author Name Unknown Organization [facility] Address [address] [place] [address] Phone [phone] Care Team Providers Care Benefits Officer Name Role Phone Rhys Humphrey MD Primary Care Provide r Reason for Visit * Reason Comments [facility]: Maintenance Encounter Details Date Type Department Care Team Description 04/09/2023 [facility] Visit [facility], [facility] [address] [place] [address] Amy Zaragoza, RAYNA [address] [place] [address] Allergies Active Allergy Reactions Severity Noted Date [...] before bedtime. 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 360 mL 3 03/22/2023 Active guaiFENesin ER 600 MG Oral Tablet Extended Release 12 Hour (Mucinex) Take 1 Tablet by mouth in the morning and 1 Tablet before bedtime. 0 Active documented as of this encounter [...] mRNA, LNP-s, No Pre serve, 2-Dose Series ([employer]) 07/11/2021,11/14/2020,10/24/2020 Covid-19, Mrna, Lnp-s, Pf, B ivalent, 30 Mcg, IM, 12 yrs and above ([employer]) 07/21/2022 Pneumococcal Conjugate Vacc, 13 Valent (Prevnar) 03/16/2015 Pneumococcal Conjugate Vacci ne, 20-valent ([id number]) 07/21/2022 Pneumococcal Polysaccharide PPV23 (Pneumovax) 03/05/2019,07/18/2007 Seasonal [...] Sign Reading Time Taken Comments Blood Pressure 120/60 04/09/2023 10:00 AM EDT Pulse 88 04/09/2023 10:00 AM EDT Temperature 36.7 C (98.1 F) 04/09/2023 10:00 AM E DT Respiratory Rate 16 04/09/2023 10:00 AM EDT Oxygen Saturation 98% 04/09/2023 10:00 AM EDT Inhaled Oxygen Concentration - - Weight - - Height - - Body Mass Index - - documented in this encounter Progress Notes * Amy Zaragoza, RAYNA - 04/09/2023 10:00 AM EDT Images from the original note were not included. [facility] Chief Scientist Monthly Visit Date: 04/09/2023 Time: 9:06 AM Name: Keisha Linares : 1940 Current Concerns: Patient being seen for routine home visit today. Hx COPD, HF COPD- having some chest congestion. pc-white, thick sputum. No fever, chills. Is having some increased sob and wheezing not relieved by duoneb. Lungs with wheezes and otherwise diminished. No fever, chills. Spoke with provider, Jay Parker PA-C. Will send rescue kit of prednisone to [facility]. Re-ordered duoneb and tessalon perles. HF-wts stable. No sxs of fluid retention. - Treatment plan: Copd rescue kit: prednisone 40mg x 5 days duoneb every 4 hours followed by flutter valve x 10 Mucinex every 12 hours 24,48 follow up phone calls. Follow up call 05/10 to check status Physical Exam: BP 120/60 (BP Site: Left Arm, BP Position: Sitting, BP Cuff Size: Regular) | Pulse 88 | Temp 36.7 C (98.1 F) (Infrared ) | Resp 16 | SpO2 98% Pain 0 Physical Exam Cardiovascular: Rate and Rhythm: Normal rate and regular rhythm. Pulses: Normal pulses. Pulmonary: Effort: Pulmonary effort is normal. Breath sounds: Normal breath sounds. Abdominal: General: Bowel sounds are normal. There is no distension. Palpations: Abdomen is soft. Musculoskeletal: Right lower leg: No edema. Left lower leg: No edema. Skin: General: Skin is warm and dry. Neurological: Mental Status: She is alert and oriented to person, place, and time. Psychiatric: Mood and Affect: Mood normal. Behavior: Behavior normal. Thought Content: Thought content normal. Judgment: Judgment normal. Problems/Symptoms: Review of Systems Constitutional: Negative for chills and fever. HENT: Negative. Eyes: Negative. Respiratory: Positive for cough and shortness of breath. Cardiovascular: Negative. Gastrointestinal: Negative. Endocrine: Negative. Genitourinary: Negative. Musculoskeletal: Negative. Skin: Negative. Allergic/Immunologic: Negative. Neurological: Negative. Hematological: Negative. Psychiatric/Behavioral: Negative. Medication Reconciliation: (See medication list) Does patient take medications as ordered: Yes Patient Well Being: PHQ2/9: No questionnaires available. [facility] Completed this Visit: No. Routine visit and No falls since last visit Advanced Care Planning: POLST. Reinforcement/Education: COPD: Pt instructed to: -Call with increased SOB, wheezing, chest tightness, increased cough, increased sputum with change in color or consistency and fever. -Wash hands often -Drink plenty of fluids -Use inhalers as directed, do not stop or skip doses -Avoid stress -Rest when tired or SOB -Avoid triggers -Clean inhalers once a week Educated on home safety: Create a fall proof home o Clear floors of clutter, loose wires, throw rugs, and cords. o Make sure halls, stairways, and entrances are well lit. o Install a nightlight in your bedroom, hallway and bathroom. o Install grab bars or handrails in the bathroom and on stairs. o Use a non-skid tub/shower mat. o Avoid climbing on a chair; instead use a step stool with a high handrail. o Keep sidewalks and steps in good repair o Keep steps and sidewalks free of snow and ice. Using aids to support and prevent falls o If you have poor balance or have fallen in the past, consider additional support such as a cane or walker. o Use a cane with good support and that is the proper length for you. o Use a walker if a cane doesnt provide enough support. Avoid medications that increase the risk of falling by causing dizziness, change in sensation or slowed reflexes. o Certain medicines may cause falls - blood pressure pills, heart medicines, water pills, or sleeping pills. o Be sure to understand each medicine that you are taking and any side effects that may occur. Improve your balance and flexibility with muscle strengthening exercises. Ask your health care provider for some exercises that will be right for you. Reinforced safety education and fall prevention. and Reinforced medication regimen. Timing., Dosing. and Purspose. Home Interventions Provided: Oral Medications: COPD Rescue Kit Started and COPD Rescue Kit Ordered Consulted PCP/Specialist Reinforced current Plan of Care, including self-management and medication regimen Patient Needs to Remember: Call [facility] at with any new or worsening health concerns or problems, red flag symptoms. Referrals Needed: NA Follow Up: Is there cellular connectivity/connectivity in the home? Yes Does the patient have internet in the home? Yes Patient encouraged to call the intake phone number for all urgent but not emergent issues. Is the patient new to [facility] within the last 30 days? No, Assess appropriateness for upcoming telehealth visits. Cancel telehealth visits & schedule home visit with care horses or mules teamster(s)as indicated. Provider is in agreement with Plan of Care: Yes Scheduled to follow up with patient in 24 ,48 hours. Amy Zaragoza RN 04/09/2023 10:40 AM documented in this encounter Plan of Treatment Upcoming Encounters Date Type Specialty Care Team Description 04/10/2023 Scheduled Telephone [facility], [facility] Maximiliano [facility] [address] [place] [address] 04/11/2023 Scheduled Telephone [facility], [facility] Maximiliano Zhou [address] [place] [address] 04/13/2023 Telemedicine [facility] Denise Do PA-C [address] [facility] [place] [address] Marlen Strange [facility] [employer] [address] [place] [address] [place] [address] 05/03/2023 Imaging Radiology 05/10/2023 Scheduled Telephone [facility] Amy Zaragoza RN [address] [place] [address] 06/07/2023 Office Visit Family Medicine Rhys uHmphrey MD [address] [place] [address] [place] [address] 06/21/2023 Office Visit Cardiology Mi Neil PA-C [address] [place] [address] 09/17/2023 Office Visit Dermatology Marycruz Almazan PA-C [address] [place] [address] [place] [address] 03/18/2024 Nurse Only Ancillary [place], Nurse Annual Wellness [address] [place] [address] [place] [address] Health Maintenance Due Date Last Done Comments [...] D LEVEL ONCE IN A LIFETIME-USE SMARTSET# [id number] Completed 06/29/2020, 03/16/2015 COVID-19 Vaccine Completed 07/21/2022, [...] Documents on File Type Date Recorded Patient Bag Inspector Expl anation POLST 10/15/2019 3:17 PM POLST POLST 03/05/2019 POLST FORM Advance Directives and Living Will 01/27/2013 LIVING WILL Advance Directives and Living Will 01/27/2013 LIVING WILL Power of Ruby On Rails Engineer 01/27/2013 POWER OF A TTORNEY Power of Ruby On Rails Engineer 01/27/2013 POWER OF A TTORNEY Healthcare Agents on File Name Relationship Healthcare Agent Relationship Communication Cydney Benito Other - (no specific identity) Second Alternate Health Care Agent Anyi More Adult Child Health Care Roberth r of Ruby On Rails Engineer Care Teams Benefits Officer Relationship Specialty Start Date End Date Rhys Humphrey MD [address] [place] [address] [place] [id number] PCP - General Family Medicine 06/09/21 documented as of this encounter
--- OUTSIDE RECORDS SUMMARY | 2023-08-14 23:33 | External Medical Summary | Summary of Care ---
Author Name Unknown Organization [facility] Address [address] [place] [address] Phone [phone] Care Team Providers Care Fudger Name Role Phone Rhys Humphrey MD Primary Care Provide r Reason for Visit * Reason Comments [facility]: Maintenance Encounter Details Date Type Department Care Team Description 04/09/2023 Home Visit [facility], [facility] [address] [place] [address] Amy Zaragoza, RAYNA [address] [place] [address] Allergies Active Allergy Reactions Severity Noted Date [...] before bedtime. 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 [facility] Unix Developer Monthly Visit Date: 04/09/2023 Time: 9:06 AM [...] Will send rescue kit of prednisone to [facility]. Re-ordered duoneb and tessalon perles. [...] Patient Well Being: PHQ2/9: No questionnaires available. [facility] Completed this Visit: No. Routine visit and [...] visits & schedule home visit with care steam oven operator(s)as indicated. Provider is in agreement with Plan of Care: Yes Scheduled to follow up with patient in 24 ,48 hours. Amy Zaragoza RN 04/09/2023 10:40 AM documented in this encounter Miscellaneous Notes * Addendum Note - Isaac Parker PA-C - 04/09/2023 11:33 AM EDTAddended by: ISAAC PARKER on: 04/09/2023 11:33 AM Modules accepted: Orders documented in this encounter Plan of Treatment Upcoming Encounters Date Type Specialty Care Team Description 04/10/2023 Scheduled Telephone [facility] Lacer [place]qu[place], [facility] [address] [facility] [place] [address] 04/11/2023 Scheduled Telephone [facility]acer [place], [facility] [address] [facility] [place] [address] 04/13/2023 Telemedicine [facility] Denise Do PA-C [address] [facility] [place] [address] Marlen Strange, [facility] [address] [place] [address] 05/03/2023 Imaging Radiology 05/10/2023 Scheduled Telephone [facility] Amy Zaragoza, RN [address] [place] [address] 06/07/2023 Office Visit Family Medicine Rhys Humphrey MD [address] [place] [address] [place] [address] 06/21/2023 Office Visit Cardiology Mi Neil PA-C [address] [place] [address] 09/17/2023 Office Visit Dermatology Marycruz Almazan PA-C [address] [place] [address] [place] [address] 03/18/2024 Nurse Only Ancillary Movalley, Nurse Annual Wellness [address] [place] [address] [place] [address] Health Maintenance Due Date Last Done Comments [...] COMPLETED IN PAST YEAR FOR COPD 03/16/2024 04/09/2023 Albumin/Creatinine Ratio 04/28/2025 04/28/2022 DTaP,Tdap,and Td Vaccines (3 - Td or Tdap) 09/17/2029 09/17/2019, 08/10/2011, 10/01/2001 Zoster Vaccines Completed 04/25/2020, 08/31, 07/22/2012 VITAMIN D LEVEL ONCE IN A LIFETIME-USE SMARTSET# [id number] Completed 06/29/2020, 03/16/2015 COVID-19 Vaccine Completed 07/21/2022, [...] Documents on File Type Date Recorded Patient Controls Operator Molded Goods Expl anation POLST 10/15/2019 3:17 PM POLST POLST 03/05/2019 POLST FORM Advance Directives and Living Will 01/27/2013 LIVING WILL Advance Directives and Living Will 01/27/2013 LIVING WILL Power of Adobe Developer 01/27/2013 POWER OF A TTORNEY Power of Adobe Developer 01/27/2013 POWER OF A TTORNEY Healthcare Agents on File Name Relationship Healthcare Agent Relationship Communication Cydney Benito Other - (no specific identity) Second Alternate Health Care Agent Anyi More Adult Child Health Care Roberth r of Adobe Developer Care Teams Fudger Relationship Specialty Start Date End Date Rhys Humphrey MD [address] [place] [address] [place] [address] PCP - General Family Medicine 06/09/21 documented as of this encounter
--- OUTSIDE RECORDS SUMMARY | 2023-08-14 23:33 | External Medical Summary | Summary of Care ---
Author Name Unknown Organization [facility] Address [address] [place] [address] Phone [phone] Care Team Providers Care Story Reader Name Role Phone Rhys Humphrey MD Primary Care Provide r Reason for Visit * Reason Onset Date Comments Order Request 04/04/2023 Status Check 04/04/2023 Encounter Details Date Type Department Care Team Description 04/04/[address] [phone] Rhys Humphrey MD [address] [place] [address] [place] [address] Order Request; Status Check Allergies Active Allergy [...] before bedtime. 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 [facility] took it but never replaced it or called her about it. Pt has an order but needs it faxed to [facility]. Faxed order to [phone] * Telephone Encounter - Bindu Davison LPN [...] to be faxed somewhere? If so, where?: [facility] Fax Number, if applicable: [phone] Call Back Number: [phone] Thank you, Mary Oswald Forming Roll Operator Heavy Duty [facility] (Formerly Telepharmacy) 04/04/2023,2:56 PM documented in this encounter Plan of Treatment Upcoming Encounters Date Type Specialty Care Team Description 04/09/2023 Home Visit [facility] Amy Zaragoza RN [address] [facility] [place] [address] 04/13/2023 Telemedicine [facility] Denise Do PA-C [address] [facility] [place] [address] Marlen Strange, [facility] House Worker [address] [place] [address] [place] [address] 05/03/2023 Imaging Radiology 06/07/2023 Office Visit Family Medicine Rhys Humphrey MD [address] [place] [address] [place] [address] 06/21/2023 Office Visit Cardiology Mi Neil PA-C [address] [place] [address] 09/17/2023 Office Visit Dermatology Marycruz Almazan PA-C [address] [place] [address] [place] [address] 03/18/2024 Nurse Only Ancillary [place]perey, Nurse Annual Wellness [address] [place] [address] [place] [address] Health Maintenance Due Date Last Done Comments [...] D LEVEL ONCE IN A LIFETIME-USE SMARTSET# [id number] Completed 06/29/2020, 03/16/2015 COVID-19 Vaccine Completed 07/21/2022, [...] Documents on File Type Date Recorded Patient Photogrammetric Technician Expl anation POLST 10/15/2019 3:17 PM POLST POLST 03/05/2019 POLST FORM Advance Directives and Living Will 01/27/2013 LIVING WILL Advance Directives and Living Will 01/27/2013 LIVING WILL Power of Log Marker 01/27/2013 POWER OF A TTORNEY Power of Log Marker 01/27/2013 POWER OF A TTORNEY Healthcare Agents on File Name Relationship Healthcare Agent Relationship Communication Cydney Benito Other - (no specific identity) Second Alternate Health Care Agent Anyi More Adult Child Health Care Roberth r of Log Marker Care Teams Story Reader Relationship Specialty Start Date End Date Rhys Humphrey MD [address] [place] [address] [place] [address] PCP - General Family Medicine 06/09/21 documented as of this encounter
--- OUTSIDE RECORDS SUMMARY | 2023-08-14 23:33 | External Medical Summary | Summary of Care ---
Author Name Unknown Organization [facility] Address [address] [place] [address] Phone [phone] Care Team Providers Care Saw Runner Name Role Phone Rhys Humphrey MD Primary Care Provide r Reason for Visit * Reason Onset Date Comments [facility]: Maintenance 04/10/2023 Encounter Details Date Type Department Care Team Description 04/10/2023 Scheduled Telephone [facility], [facility] [address] [facility] [place] [address] Coordinator, [facility] [address] [facility] [place] [address] Allergies Active Allergy Reactions Severity Noted Date Comments Adhesive Tape Other (Please comment),Hives High 09/29/2008 Caused welts Dextromethorphan-Gua ifenesin Neuro complications (Please comment) Medium 12/23/2021 Feels lightheaded/"foggy" documented as of this encounter (statuses as of 04/10/2023) Medications Medication Sig Dispensed Refills Start Date [...] before bedtime. 50 Cap 0 01/18/2021 Active Utgxjmv-Daerzidnk-Zq nc 333-133-5 MG Oral Tablet Take by [...] as of this encounter (statuses as of 04/10/2023) Active Problems Problem Noted Date Acute serous [...] as of this encounter (statuses as of 04/10/2023) Resolved Problems Problem Noted Date Resolved Date [...] as of this encounter (statuses as of 04/10/2023) Immunizations Name Administration Dates Next Due COVID-19 mRNA, LNP-s, No Pre serve, 2-Dose Series ([employer]) 07/11/2021,11/14/2020,10/24/2020 Covid-19, Mrna, Lnp-s, Pf, B ivalent, 30 Mcg, IM, 12 yrs and above ([employer]) 07/21/2022 Pneumococcal Conjugate Vacc, 13 Valent (Prevnar) 03/16/2015 Pneumococcal Conjugate Vacci ne, 20-valent ([id number]) 07/21/2022 Pneumococcal Polysaccharide PPV23 (Pneumovax) 03/05/2019,07/18/2007 Seasonal [...] Telephone Encounter - Estee Verde RN - 04/10/2023 9:03 AM EDT Images from the original note [...] DME Needs: NO DME needs identified Medications: New medication(s) added: see medication sheet Subjective: Condition Status: Improvement in symptoms but not at baseline Current Concerns: Spoke with Keisha, states she is feeling better today, coughing up clear phlegm, -SOB. Using nebs with flutter valve 10X post treatment. Compliant with medications. Disposition: Follow up call scheduled for tomorrow with [facility] Sheep Farmer Future Visits Scheduled: Future Appointments-next 60 days Date/Time Provider Specialty Dept Phone 04/10/2023 1:30 PM [facility] Maximiliano Sheep Farmer [facility] [phone] 04/11/2023 1:30 PM [facility] Sheep Farmer [facility] [phone] 04/13/2023 3:30 PM Marlen Strange Community Health Supervisor [place]; Denise Do PA-C [facility] [phone] 05/03/2023 9:00 AM [facility] Radiology [phone] 05/10/2023 9:00 AM Amy Zaragoza RN [facility] [phone] 06/07/2023 8:00 AM (Arrive by 7:45 AM) Rhys Humphrey MD Family Medicine [phone] 06/21/2023 3:00 PM (Arrive by 2:45 PM) Mi Neil PA-C Cardiology [phone] 09/17/2023 9:40 AM (Arrive by 9:25 AM) Marycruz Almazan PA-C Dermatology [phone] 03/18/2024 9:00 AM Nurse Annual Wellness [facility] Ancillary [phone] Estee Verde RN documented in this encounter Plan of Treatment Upcoming Encounters Date Type Specialty Care Team Description 04/11/2023 Scheduled Telephone [facility] Radiologist, Josephine Zhou [address] [place] [address] 04/13/2023 Telemedicine [facility] Denise Do PA-C [address] [place] [address] [place] [address] Marlen Strange [facility] Health Supervisor Shearing [address] [place] [address] [place] [address] 05/03/2023 Imaging Radiology 05/10/2023 Scheduled Telephone [facility] Amy Zaragoza RN [address] [place] [address] 06/07/2023 Office Visit Family Medicine Rhys Humphrey MD [address] [place] [address] [place] [address] 06/21/2023 Office Visit Cardiology Mi Neil PA-C [address] [place] [address] 09/17/2023 Office Visit Dermatology Marycruz Almazan PA-C [address] [place] [address] [place] [address] 03/18/2024 Nurse Only Ancillary Nurse Stanton [facility] [address] [place] [address] [place] [address] Health Maintenance Due Date Last Done Comments [...] D LEVEL ONCE IN A LIFETIME-USE SMARTSET# [id number] Completed 06/29/2020, 03/16/2015 COVID-19 Vaccine Completed 07/21/2022, [...] Documents on File Type Date Recorded Patient Seismograph Shooter Expl anation POLST 10/15/2019 3:17 PM POLST POLST 03/05/2019 POLST FORM Advance Directives and Living Will 01/27/2013 LIVING WILL Advance Directives and Living Will 01/27/2013 LIVING WILL Power of Certified Indoor Environmentalist 01/27/2013 POWER OF A TTORNEY Power of Certified Indoor Environmentalist 01/27/2013 POWER OF A TTORNEY Healthcare Agents on File Name Relationship Healthcare Agent Relationship Communication Cydney Benito Other - (no specific identity) Second Alternate Health Care Agent Anyi More Adult Child Health Care Roberth r of Certified Indoor Environmentalist Care Teams Saw Runner Relationship Specialty Start Date End Date Rhys Humphrey MD [address] [place] [address] [place] [address] PCP - General Family Medicine 06/09/21 documented as of this encounter
--- OUTSIDE RECORDS SUMMARY | 2023-08-14 23:34 | External Medical Summary | Summary of Care ---
Author Name Unknown Organization [facility] Address [address] [place] [address] Phone [phone] Care Team Providers Care Reinforcing Steel Worker Name Role Phone Rhys Humphrye MD Primary Care Provide r Reason for Visit * Reason Onset Date Comments [facility]: Maintenance 03/13/2023 Encounter Details Date Type Department Care Team Description 03/13/2023 Telephone [facility], [facility] [address] [facility] [place] [address] [facility], Nurse [facility] [address] [facility] [place] [address] [facility]: Maintenance Allergies Active Allergy Reactions Severity Noted Date Comments Adhesive Tape Other (Please comment),Hives High 09/29/2008 Caused welts Dextromethorphan-Gua ifenesin Neuro complications (Please comment) Medium 12/23/2021 Feels lightheaded/"foggy" documented as of this encounter (statuses as of 03/13/2023) Medications Medication Sig Dispensed Refills Start Date [...] before bedtime. 50 Cap 0 01/18/2021 Active Ahwijsx-Auubjcjak-Ed nc 333-133-5 MG Oral Tablet Take by mouth. 0 Active Famotidine 20 MG Oral Tablet (Pepcid) Take 1 Tab by mouth 2 times a day as needed for Heartburn. 180 Tab 3 05/23/2021 Active Additional Information Patient taking differently:20 mg Oral BID PRN, Heartburn,Indications: heartburn, Reported on 10/30/2022 Diclofenac Sodium 1 % External Gel (Voltaren)Indication s:Chronic left shoulder pain Apply topically to affected area 2 g in the morning. Apply to L shoulder. 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 0 Active Clobetasol Propionate 0.05 % External Ointment (Temovate)Indication s:Lichen sclerosus et atrophicus Apply 2x daily to isolated area on left labia that is bothersome until resolved, continue to use Vaseline regularly over entire vagina 60 g 0 09/06/2022 Active Fluticasone Propionate 50 MCG/ACT Nasal SuspensionIndication [...] EVERY DAY 90 Tablet 1 10/24/2022 Active Meclizine HCl 12.5 MG Oral Tablet (Antivert) Take 1 Tablet by mouth 3 times a day as needed for Dizziness. 30 Tablet 1 10/23/2022 Active Docusate Sodium 100 MG Oral Capsule (Colace) Take 2 Capsules by mouth in the morning. 0 Active Melatonin 3 MG Oral Capsule Take 1 Capsule by mouth at bedtime. 0 Active Gabapentin 300 MG Oral Capsule (Neurontin)Indicatio ns:Peripheral polyneuropathy TAKE ONE CAPSULE BY MOUTH IN THE MORNING and AT NOON and TAKE two CAPSULES AT BEDTIME 120 Capsule 3 12/14/2022 Active Albuterol Sulfate HFA 108 (90 Base) [...] Sunday only. 42.5 g 1 02/02/2023 Active Additional Information Patient not taking.Reported on 02/13/2023 Ipratropium-Albutero l 0.5-2.5 (3) MG/3ML Inhalation Solution (Duoneb)Indications: COPD, group D, by GOLD 2017 classification ([facility]) Inhale 3 mL via nebulizer every 6 hours as needed for Shortness of Breath or Wheezing. 360 mL 0 02/01/2023 Active Ramelteon 8 MG Oral Tablet (Rozerem)Indications :Insomnia, unspecified type TAKE ONE TABLET BY MOUTH AT BEDTIME 30 Tablet 3 02/21/2023 Active documented as of this encounter (statuses as of 03/13/2023) Active Problems Problem Noted Date Acute serous [...] as of this encounter (statuses as of 03/13/2023) Resolved Problems Problem Noted Date Resolved Date [...] as of this encounter (statuses as of 03/13/2023) Immunizations Name Administration Dates Next Due COVID-19 mRNA, LNP-s, No Pre serve, 2-Dose Series ([employer]) 07/11/2021,11/14/2020,10/24/2020 Covid-19, Mrna, Lnp-s, Pf, B ivalent, 30 Mcg, IM, 12 yrs and above ([employer]) 07/21/2022 Pneumococcal Conjugate Vacc, 13 Valent (Prevnar) 03/16/2015 Pneumococcal Conjugate Vacci ne, 20-valent ([id number]) 07/21/2022 Pneumococcal Polysaccharide PPV23 (Pneumovax) 03/05/2019,07/18/2007 Seasonal [...] got money to buy more. Never true 09/09/2019 Within the past 12 months, t he food you bought just didn't last and you didn't have money to get more. Never true 09/09/2019 Sex Assigned at Date Recorded Not on file Job Start Date Occupation Industry Not on file Not on file Not on file documented as of this encounter Miscellaneous Notes * Telephone Encounter - Isa Cade LPN - 03/13/2023 9:05 AM EDT [facility] Telephonic Nurse Follow-Up Call [facility] Subprogram: Focused Care Management (3-9 months) Follow Up Call Type: Routine follow up call / Status Check Acute issue requiring follow-up call: Remote Patient Monitoring Trigger Objective: 02/23/2023 1:27 PM 02/22/2023 11:48 AM 02/21/2023 11:18 AM 02/13/2023 5:11 PM 02/01/2023 2:40 PM VITALS ACROSS ENCOUNTERS BP 118/48 148/68 138/62 132/60 122/60 Pulse 83 80 92 80 96 Weight 76.9 kg BMI 28.88 BMI 28.88 kg/m2 No results found for: BLOOD, PROTEIN, [...] LEFT VENTRICULAR EJECTION FRACTION Remote Patient Monitoring: [facility] Blood Pressure Cuff: see below: Oxygen Needs: NO supplemental oxygen needs identified DME Needs: NO DME needs identified Medications: No medication or dose adjustments made during acute episode Phone call to patients home number with no answer and VM full. Call to patients daughter and got VM. Left VM with callback number for [facility]. documented in this encounter Plan of Treatment Upcoming Encounters Date Type Specialty Care Team Description 03/16/2023 Office Visit Family Medicine Rhys Humphrey MD [address] [place] [address] [place] [address] 03/22/2023 Home Visit [facility] Cinthia Murphy PA-C [address] [place] [address] 04/09/2023 Home Visit [facility] Amy Zaragoza RN [address] [place] [address] 06/21/2023 Office Visit Cardiology Mi Neil PA-C [address] [place] [address] 09/17/2023 Office Visit Dermatology Marycruz Almazan PA-C [address] [place] [address] [place] [address] Health Maintenance Due Date Last Done Comments Alpha-1 Antitrypsin 1958 DXA Scan 06/11/2020 06/11/2018, 03/02, 02/16/2012, Additional history exists *BISPHONATE OR OTHER ACCEPTABLE MEDICATION NEEDED FOR OSTEOPOROSIS (REFER TO SMARTSET #[id number]) 01/23/2021 Depression Screening, Annual for Pts 12 and Over 01/18/2022 01/18/2021 GFR 09/26/2023 09/26/2022, 04/01, 03/22/2022, Additional history exists O2 ASSESSMENT COMPLETED IN PAST YEAR FOR COPD 02/24/2024 02/23/2023 Albumin/Creatinine Ratio 04/28/2025 04/28/2022 DTaP,Tdap,and Td Vaccines (3 - Td or Tdap) 09/17/2029 09/17/2019, 08/10/2011, 10/01/2001 Zoster Vaccines Completed 04/25/2020, 08/31, 07/22/2012 VITAMIN D LEVEL ONCE IN A LIFETIME-USE SMARTSET# [id number] Completed 06/29/2020, 03/16/2015 Influenza Vaccine (FLU shot) Completed , 06/08/2021, 06/16/2020, Additional history exists COVID-19 Vaccine Completed 07/21/2022, 10/2020, 07/11/2021, Additional [...] on File Type Date Recorded Patient Sales Communications Manager Expl anation POLST 10/15/2019 3:17 PM POLST POLST 03/05/2019 POLST FORM Advance Directives and Living Will 01/27/2013 LIVING WILL Advance Directives and Living Will 01/27/2013 LIVING WILL Power of Museum Exhibit Designer 01/27/2013 POWER OF A TTORNEY Power of Museum Exhibit Designer 01/27/2013 POWER OF A TTORNEY Healthcare Agents on File Name Relationship Healthcare Agent Relationship Communication Cydney Benito Other - (no specific identity) Second Alternate Health Care Agent Anyi More Adult Child Health Care Roberth r of Museum Exhibit Designer Care Teams Reinforcing Steel Worker Relationship Specialty Start Date End Date Rhys Humphrey MD [address] [place] [address] [place] [address] PCP - General Family Medicine 06/09/21 documented as of this encounter
--- OUTSIDE RECORDS SUMMARY | 2023-08-14 23:34 | External Medical Summary | Summary of Care ---
Author Name Unknown Organization [facility] Address [address] [place] [address] Phone [phone] Care Team Providers Care Store Operations Specialist Name Role Phone Rhys Humphrey MD Primary Care Provide r Reason for Visit * Reason Onset Date Comments Appointment 03/22/2023 Encounter Details Date Type Department Care Team Description 03/22/2023 Telephone [facility], [facility] [address] [place] [address] Services, Scheduling [address] [place] [address] Appointment (//) Allergies Active Allergy Reactions Severity Noted Date Comments Adhesive Tape Other (Please comment),Hives High 09/29/2008 Caused welts Dextromethorphan-Gua ifenesin Neuro complications (Please comment) Medium 12/23/2021 Feels lightheaded/"foggy" documented as of this encounter (statuses as of 03/22/2023) Medications Medication Sig Dispensed Refills Start Date [...] before bedtime. 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 42.5 g 1 02/02/2023 Active Ipratropium-Albutero l 0.5-2.5 (3) MG/3ML Inhalation Solution (Duoneb)Indications: COPD, group D, by GOLD 2017 classification ([facility]) Inhale 3 mL via [...] at bedtime. 90 Capsule 3 03/16/2023 Active documented as of this encounter (statuses as of 03/22/2023) Active Problems Problem Noted Date Acute serous [...] as of this encounter (statuses as of 03/22/2023) Resolved Problems Problem Noted Date Resolved Date [...] as of this encounter (statuses as of 03/22/2023) Immunizations Name Administration Dates Next Due COVID-19 mRNA, LNP-s, No Pre serve, 2-Dose Series ([employer]) 07/11/2021,11/14/2020,10/24/2020 Covid-19, Mrna, Lnp-s, Pf, B ivalent, 30 Mcg, IM, 12 yrs and above ([employer]) 07/21/2022 Pneumococcal Conjugate Vacc, 13 Valent (Prevnar) 03/16/2015 Pneumococcal Conjugate Vacci ne, 20-valent ([id number]) 07/21/2022 Pneumococcal Polysaccharide PPV23 (Pneumovax) 03/05/2019,07/18/2007 Seasonal [...] Miscellaneous Notes * Telephone Encounter - ISELA Smith - 03/22/2023 12:11 PM EDT Rcvd call from pt she thought she had an appt today.. I advised she has an appt tomorrow at 1:30pm.She advised that is fine. documented in this encounter Plan of Treatment Upcoming Encounters Date Type Specialty Care Team Description 03/30/2023 Telemedicine [facility] Denise Do PA-C [address] [place] [address] Marlen Strange, Community Health Postal Inspector [address] [place] [address] [place] [address] 04/09/2023 Home Visit [facility] Amy Zaragoza RN [address] [place] [address] 05/01/2023 Imaging Radiology 06/07/2023 Office Visit Family Medicine Rhys Humphrey MD [address] [place] [address] [place] [address] 06/21/2023 Office Visit Cardiology Mi Neil PA-C [address] [place] [address] 09/17/2023 Office Visit Dermatology Marycruz Almazan PA-C [address] [place] [address] [place] [address] 03/18/2024 Nurse Only Ancillary Movalley, Nurse Annual Wellness [address] [place] [address] [place] [address] Health Maintenance Due Date Last Done Comments [...] D LEVEL ONCE IN A LIFETIME-USE SMARTSET# [id number] Completed 06/29/2020, 03/16/2015 Influenza Vaccine (FLU shot) [...] Documents on File Type Date Recorded Patient Floor Inspector Expl anation POLST 10/15/2019 3:17 PM POLST POLST 03/05/2019 POLST FORM Advance Directives and Living Will 01/27/2013 LIVING WILL Advance Directives and Living Will 01/27/2013 LIVING WILL Power of Floral Manager 01/27/2013 POWER OF A TTORNEY Power of Floral Manager 01/27/2013 POWER OF A TTORNEY Healthcare Agents on File Name Relationship Healthcare Agent Relationship Communication Cydney Benito Other - (no specific identity) Second Alternate Health Care Agent Anyi More Adult Child Health Care Roberth r of Floral Manager Care Teams Store Operations Specialist Relationship Specialty Start Date End Date Rhys Humphrey MD [address] [place] [address] [place] [address] PCP - General Family Medicine 06/09/21 documented as of this encounter
--- OUTSIDE RECORDS SUMMARY | 2023-08-14 23:34 | External Medical Summary | Summary of Care ---
Author Name Unknown Organization [facility] Address [address] [place] [address] Phone [phone] Care Team Providers Care Tankroom Tender Name Role Phone Rhys Humphrey MD Primary Care Provide r Reason for Visit * Reason Comments No Show Encounter Details Date Type Department Care Team Description 03/30/2023 Telemedicine [facility] [place] [address] [place] [address] Denise Do PA-C [address] [place] [address] Marlen Strange [address] [place] [address] Peripheral polyneuropathy*; History of TIA (transient ischemic attack); COPD, group D, by GOLD 2017 classification ([facility]) Allergies Active Allergy Reactions Severity Noted Date Comments Adhesive Tape Other (Please comment),Hives High 09/29/2008 Caused welts Dextromethorphan-Gua ifenesin Neuro complications (Please comment) Medium 12/23/2021 Feels lightheaded/"foggy" documented as of this encounter (statuses as of 03/30/2023) Medications Medication Sig Dispensed Refills Start Date [...] before bedtime. 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),COPD, group D, by [...] as of this encounter (statuses as of 03/30/2023) Active Problems Problem Noted Date Acute serous [...] as of this encounter (statuses as of 03/30/2023) Resolved Problems Problem Noted Date Resolved Date [...] as of this encounter (statuses as of 03/30/2023) Immunizations Name Administration Dates Next Due COVID-19 mRNA, LNP-s, No Pre serve, 2-Dose Series ([employer]) 07/11/2021,11/14/2020,10/24/2020 Covid-19, Mrna, Lnp-s, Pf, B ivalent, 30 Mcg, IM, 12 yrs and above ([employer]) 07/21/2022 Pneumococcal Conjugate Vacc, 13 Valent (Prevnar) 03/16/2015 Pneumococcal Conjugate Vacci ne, 20-valent ([id number]) 07/21/2022 Pneumococcal Polysaccharide PPV23 (Pneumovax) 03/05/2019,07/18/2007 Seasonal [...] as of this encounter Progress Notes * Danish Daley - 03/30/2023 1:27 PM EDT Called patient prior to telehealth visit today. Patient states "you were supposed to see me before I went on my trip". Patient went on to explain she is "on the other side of [place]", and planning to return home on Sunday. Advised patient I will have scheduling follow up with her once she returns.Patient states "about the time you get to see me, I will be gone again". Message to provider to make aware. Will send encounter to [facility] scheduling. documented in this encounter Plan of Treatment Upcoming Encounters Date Type Specialty Care Team Description 04/09/2023 Home Visit [facility] Amy Zaragoza, RAYNA [address] [place] [address] 05/01/2023 Imaging Radiology 06/07/2023 Office Visit Family Medicine Rhys Humphrey MD [address] [place] [address] [place] [address] 06/21/2023 Office Visit Cardiology Mi Neil PA-C [address] [place] [address] 09/17/2023 Office Visit Dermatology Marycruz Almazan PA-C [address] [place] [address] [place] [address] 03/18/2024 Nurse Only Ancillary Movalley, Nurse Annual Wellness [address] [place] [address] [place] [address] Health Maintenance Due Date Last Done Comments [...] D LEVEL ONCE IN A LIFETIME-USE SMARTSET# [id number] Completed 06/29/2020, 03/16/2015 Influenza Vaccine (FLU shot) [...] of this encounter Visit Diagnoses Diagnosis Peripheral polyneuropathy- Primary Unspecified hereditary and idiopathic peripheral neuropathy History of TIA (transient ischemic attack) Transient ischemic attack (TIA), and cerebral infarction without residual deficits COPD, group D, by GOLD 2017 classification (HCC) documented in this encounter Advance Directives Documents on File Type Date Recorded Patient Spanish Tutor Expl anation POLST 10/15/2019 3:17 PM POLST POLST 03/05/2019 POLST FORM Advance Directives and Living Will 01/27/2013 LIVING WILL Advance Directives and Living Will 01/27/2013 LIVING WILL Power of National Secretary 01/27/2013 POWER OF A TTORNEY Power of National Secretary 01/27/2013 POWER OF A TTORNEY Healthcare Agents on File Name Relationship Healthcare Agent Relationship Communication Cydney Benito Other - (no specific identity) Second Alternate Health Care Agent Anyi More Adult Child Health Care Roberth r of National Secretary Care Teams Tankroom Tender Relationship Specialty Start Date End Date Rhys Humphrey MD [address] [place] [address] [place] [address] PCP - General Family Medicine 06/09/21 documented as of this encounter
--- OUTSIDE RECORDS SUMMARY | 2023-08-14 23:34 | External Medical Summary | Summary of Care ---
Author Name Unknown Organization [facility] Address [address] [place] [address] Phone [phone] Care Team Providers Care Ict Programmer Name Role Phone Rhys Humphrey MD Primary Care Provide r Reason for Visit * Reason Onset Date Comments Appointment 03/14/2023 Encounter Details Date Type Department Care Team Description 03/14/2023 Telephone [facility], [facility] [address] [place] [address] Services, Scheduling [address] [place] [address] Appointment Allergies Active Allergy Reactions Severity Noted Date Comments Adhesive Tape Other (Please comment),Hives High 09/29/2008 Caused welts Dextromethorphan-Gua ifenesin Neuro complications (Please comment) Medium 12/23/2021 Feels lightheaded/"foggy" documented as of this encounter (statuses as of 03/14/2023) Medications Medication Sig Dispensed Refills Start Date [...] before bedtime. 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),COPD, group D, by [...] as of this encounter (statuses as of 03/14/2023) Active Problems Problem Noted Date Acute serous [...] as of this encounter (statuses as of 03/14/2023) Resolved Problems Problem Noted Date Resolved Date [...] as of this encounter (statuses as of 03/14/2023) Immunizations Name Administration Dates Next Due COVID-19 mRNA, LNP-s, No Pre serve, 2-Dose Series ([employer]) 07/11/2021,11/14/2020,10/24/2020 Covid-19, Mrna, Lnp-s, Pf, B ivalent, 30 Mcg, IM, 12 yrs and above ([employer]) 07/21/2022 Pneumococcal Conjugate Vacc, 13 Valent (Prevnar) 03/16/2015 Pneumococcal Conjugate Vacci ne, 20-valent ([id number]) 07/21/2022 Pneumococcal Polysaccharide PPV23 (Pneumovax) 03/05/2019,07/18/2007 Seasonal [...] Miscellaneous Notes * Telephone Encounter - ISELA Lance - 03/14/2023 1:46 PM EDT Reason for call Patient visit moved to 03/30/2023 1:30pm Telmed Please confirm visit when patient return call. documented in this encounter Plan of Treatment Upcoming Encounters Date Type Specialty Care Team Description 03/16/2023 Office Visit Family Medicine Rhys Humphrey MD [address] [place] [address] [place] [id number] 03/30/2023 Telemedicine [facility] Denise Do PA-C [address] [place] [address] [facility] [employer] [address] [place] [address] [place] [id number] 04/09/2023 Home Visit [facility] Amy Zaragoza, RAYNA [address] [place] [address] 06/21/2023 Office Visit Cardiology Mi Neil PA-C [address] [place] [id number] 09/17/2023 Office Visit Dermatology Marycruz Almazan PA-C [address] [place] [address] [place] [id number] Health Maintenance Due Date Last Done Comments [...] D LEVEL ONCE IN A LIFETIME-USE SMARTSET# [id number] Completed 06/29/2020, 03/16/2015 Influenza Vaccine (FLU shot) [...] Documents on File Type Date Recorded Patient Hand Cell Tuber Expl anation POLST 10/15/2019 3:17 PM POLST POLST 03/05/2019 POLST FORM Advance Directives and Living Will 01/27/2013 LIVING WILL Advance Directives and Living Will 01/27/2013 LIVING WILL Power of [place] [place] 01/27/2013 POWER OF A TTORNEY Power of [place] 01/27/2013 POWER OF A TTORNEY Healthcare Agents on File Name Relationship Healthcare Agent Relationship Communication Cydney Benito Other - (no specific identity) Second Alternate Health Care Agent Anyi More Adult Child Health Care Roberth cooper of [employer] [place] Care Teams Ict Programmer Relationship Specialty Start Date End Date Rhys Humphrey MD [address] [place] [address] [place] [id number] PCP - General Family Medicine 06/09/21 documented as of this encounter
--- OUTSIDE RECORDS SUMMARY | 2023-08-14 23:34 | External Medical Summary | Summary of Care ---
Author Name Unknown Organization [facility] Address [address] [place] [address] Phone [phone] Care Team Providers Care Restaurant Area Director Name Role Phone Rhys Humphrey MD Primary Care Provide r Reason for Visit * Reason Comments Adult Annual Wellness Visit, Initial Vis it Encounter Details Date Type Department Care Team Description 03/16/2023 Nurse Only Ancillary [address] [place] [id number] [facility], Nurse [address] [place] [id number] Adult Annual Wellness Visit, Initial Visit Allergies Active Allergy Reactions Severity Noted Date Comments Adhesive Tape Other (Please comment),Hives High 09/29/2008 Caused welts Dextromethorphan-Gua ifenesin Neuro complications (Please comment) Medium 12/23/2021 Feels lightheaded/"foggy" documented as of this encounter (statuses as of 03/16/2023) Medications Medication Sig Dispensed Refills Start Date [...] Each 0 11/11/2019 Active Nebulizers (NEBULIZER COMPRESSOR) MISCIndications: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 Use as directed. 1 Each 1 11/17/2019 Active Iron 325 (65 Fe) MG Oral Tablet Take by mouth. 0 Active Cranberry 500 MG Oral Capsule Take 1 Capsule by mouth in the morning and 1 Capsule before bedtime. 50 Cap 0 01/18/2021 Active Qyofiuc-Pnqzajgli-R inc 333-133-5 MG Oral Tablet Take by [...] Inhalation Aerosol SolutionIndications :COPD, moderate ([facility]) Inhale 2 Puffs by mouth every [...] Sunday only. 42.5 g 1 02/02/2023 Active Ipratropium-Albuter ol 0.5-2.5 (3) MG/3ML Inhalation Solution (Duoneb)Indications :COPD, group D, by GOLD 2017 classification ([facility]) Inhale 3 mL via nebulizer every 6 hours as needed for Shortness of Breath or Wheezing. 360 mL 0 02/01/2023 Active Ramelteon 8 MG Oral Tablet (Rozerem)Indication s:Insomnia, unspecified type TAKE ONE TABLET BY MOUTH AT BEDTIME 30 Tablet 3 02/21/2023 Active Meclizine HCl 12.5 MG Oral Tablet (Antivert)Indicatio ns:Vertigo Take 1 Tablet by mouth 3 times a day as needed for Dizziness. 30 Tablet 0 03/16/2023 Active Diclofenac Sodium 1 % External Gel (Voltaren)Indicatio ns:Chronic left shoulder pain Apply topically to affected area 2 g in the morning. Apply to L shoulder. 350 g 1 03/01/2022 03/16/20 Discontinu ed(Refill) Clobetasol Propionate 0.05 % External Ointment (Temovate)Indicatio ns:Lichen sclerosus et atrophicus Apply 2x daily to isolated area on left labia that is bothersome until resolved, continue to use Vaseline regularly over entire vagina 60 g 0 09/06/2022 03/16/20 Discontinu ed(Medicat ion List Clean Up) Melatonin 3 MG Oral Capsule Take 1 Capsule by mouth at bedtime. 0 03/16/20 Discontinu ed(Medicat ion List Clean Up) Gabapentin 300 MG Oral Capsule (Neurontin)Indicati ons:Peripheral polyneuropathy,Pain in both lower extremities Take 3 Capsules by mouth every night at bedtime. 120 Capsule 3 03/16/2023 03/16/20 Discontinu ed(Refill) documented as of this encounter (statuses as of 03/16/2023) Active Problems Problem Noted Date Acute serous [...] as of this encounter (statuses as of 03/16/2023) Resolved Problems Problem Noted Date Resolved Date [...] as of this encounter (statuses as of 03/16/2023) Immunizations Name Administration Dates Next Due COVID-19 mRNA, LNP-s, No Pre serve, 2-Dose Series ([employer]) 07/11/2021,11/14/2020,10/24/2020 Covid-19, Mrna, Lnp-s, Pf, B ivalent, 30 Mcg, IM, 12 yrs and above ([employer]) 07/21/2022 Pneumococcal Conjugate Vacc, 13 Valent (Prevnar) 03/16/2015 Pneumococcal Conjugate Vacci ne, 20-valent ([id number]) 07/21/2022 Pneumococcal Polysaccharide PPV23 (Pneumovax) 03/05/2019,07/18/2007 Seasonal [...] Sign Reading Time Taken Comments Blood Pressure 124/52 03/16/2023 9:58 AM EDT Pulse 93 03/16/2023 9:58 AM EDT Temperature 36.6 C (97.8 F) 03/16/2023 9:58 AM ED T Respiratory Rate - - Oxygen Saturation 93% 03/16/2023 9:58 AM EDT Inhaled Oxygen Concentration - - Weight 66.2 kg (146 lb) 03/16/2023 9:58 AM EDT Height 162.6 cm (5' 4") 03/16/2023 9:58 AM EDT Body Mass Index 25.06 03/16/2023 9:58 AM EDT documented in this encounter Patient Instructions * Patient Instructions* Jessenia Neves RN - 03/16/2023 9:56 AM EDT Patient Instructions - Fall Prevention (This education is for all patients over 65 regardless of symptoms) Remember to take your current medications as prescribed. In order to prevent falls, you are encouraged to: Exercise Utilize assistive/adaptive devices Avoid multifocal lenses when walking Avoid hazards in home Maintain a regular toileting schedule Any questions please contact our office. Preventing Falls in the Home (This education is for all patients over 65 regardless of symptoms) As you get older, falls are more likely. Thats because your reaction time slows. Your muscles and joints may also get stiffer, making them less flexible. Illness, medications, and vision changes can also affect your balance. A fall could leave you unable to live on your own. To make your home safer, follow these tips: Floors Put nonskid pads under area rugs Remove throw rugs Replace worn floor coverings Tack carpets firmly to each step on carpeted stairs. Put nonskid strips on the edges of uncarpeted stairs Keep floors and stairs free of clutter and cords Arrange furniture so there are clear pathways Clean up any spills right away Bathrooms Install grab bars in the tub or shower Apply nonskid strips or put a nonskid rubber mat in the tub or shower Sit on a bath chair to bathe Use bathmats with nonskid backing Lighting Keep a flashlight in each room Put a nightlight along the pathway between the bedroom and the bathroom [employer] Patient Education Copyright 2008 - 2010 [employer] except where otherwise noted Preventing Falls: Exercises to Improve Balance, Flexibility, Strength, and Staying Power (This education is for all patients over 65 regardless of symptoms) Certain types of exercises may help make you less likely to fall. Try the ones below. Or do other exercises that your healthcare provider suggests. Depending on your health, you may need to start slowly. Dont let that stop you. Even small amounts of exercise can help you. Be sure to talk to yourhealthcare provider before starting any exercise program. Improve Balance Many types of exercise can help improve balance. Moose chi and yoga are good examples. Heres another one to try. You can do it anytime and almost anywhere. Stand next to a counter or solid support. Push yourself up onto your tiptoes. Hold for 5 seconds. If you start to lose your balance, hold on to the counter. Rest and repeat 5 times. Work up to holding for 20 to 30 seconds, if you can. Increase Flexibility Being more flexible makes it easier for you to move around safely. Try exercises like the seated hamstring stretch. Sit in a chair and put one foot on a stool. Straighten your leg and reach with both hands down either side of your leg. Reach as far down your leg as you can. Hold for about 20 seconds. Go back to the starting position. Then repeat 5 times. Switch legs. Build Strength Resistance exercises help build strength. You can do them without equipment. Or you can use weights, elastic bands, or special machines. One such exercise is called the biceps curl. You can hold a 1 pound weight or even a can of soup. Do this exercise at least 3 times a week. Strive for everyday. Sit up straight in a chair. Keep your elbow close to your body and your wrist straight. Bend your arm, moving your hand up to your shoulder. Then slowly lower your arm. Repeat 5 times. Switch to the other arm. Build Your Staying Power Aerobic exercises make your heart and lungs stronger so you can keep moving longer. Walking and swimming are two of the best types of exercises you can do. Using a stationary bike is great, too. Find an aerobic exercise that you enjoy. Start slowly and build up. Even 5 minutes is helpful. Aimfor a goal of 30 minutes, at least 3 times a week. You dont have to do 30 minutes in one session. Break it up and walk a little throughout the day. More Helpful Tips Start easy. Slowly work up to doing more. Talk with your healthcare provider about the best exercises for you. Call senior centers or health clubs about exercise programs. If needed, have a family member watch you walk every so often to check your stability. Exercise with a friend. Choose an activity you both enjoy. Try exercises that you can do anytime, anywhere. Here are two examples. Have someone with you when you first try these: Practice walking by placing one foot right in front of the other. Stand up and sit down 10 times. Repeat this throughout the day. [employer] Patient Education Copyright 2008 [employer] except where otherwise noted. Preventing Falls: Moving Safely Using a Cane or Walker (This education is for all patients over 65 regardless of symptoms) Keep the cane away from your feet so you dont trip. A walking aid, such as a cane or walker, can help you stay more independent and avoid falls. Remember to keep your walking aid within easy reach when youre in a chair or in bed. And learn how to use it safely so you dont injure yourself. Using a Cane If you have a stronger side, hold the cane on that side. 17. Get your balance. 18. Move the cane and your weaker leg forward. 19. Support your weight on both the cane and your weaker side. 20. Step with your stronger leg. 21. Start again from step 1. If youre using a folding walker, be sure you know how to lock it open. Check that its locked open before each use. Using a Walker 7. Roll the walker (or lift it, if youre using one without wheels) forward about 12 inches. 8. Step forward with your weaker leg first. 9. Use the walker to help keep your balance. 10. Bring your other foot forward to the center of the walker. 11. Start again from step 1. Helpful Tips Check with your healthcare provider about the right walking aid to use. Ask about a walker with a seat attached. Check the tips of your cane or walker to make sure they have nonskid covers. Move slowly from room to room. Dont mo. Sit down to get dressed. Use a jewell pack or backpack to keep your hands free. Get help for jobs that mean climbing, even on a stepstool. [employer] Patient Education Copyright 2008 [employer] except where otherwise noted. Urinary Incontinence Plan of Care Documentation: (This education is for all patients over 65 regardless of symptoms) Current medications reconciled. Patient encouraged to: Practice kegal exercises Provide education materials Use the restroom every 2 hours throughout the day Limit caffeine, alcohol, spicy foods and acidic foods Keep a bladder diary Limit fluid intake 3-4 hours before bed Lose weight Prevent constipation Take fluid pills at a time when you can get to the bathroom quickly Control sugar better if diabetic Limit fluid intake to 60 oz. per day Wear support stockings (TEDs)if you have edema Jessenia Neves RN 03/16/2023 Kegel Exercises Kegel exercises dont require special clothing or equipment. Theyre easy to learn and simple to do. And if you do them right, no one can tell youre doing them, so they can be done almost anywhere. Your doctor, nurse, or physical therapist can answer any questions you have and help you get started. A Weak Pelvic Floor The pelvic floor muscles may weaken due to aging, and vaginal childbirth, injury, surgery, chronic cough, or lack of exercise. If the pelvic floor is weak, your bladder and other pelvic organs may sag out of place. The urethra may also open too easily and allow urine to leak out. Kegel exercises can help you strengthen your pelvic floor muscles so they can better support the pelvic organs and control urine flow. How Kegel Exercises Are Done Try each of the Kegel exercises described below. When youre doing them, try not to move your leg, buttock, or stomach muscles. While youre urinating, try to stop the flow of urine. Start and stop it as often as you can. Contract as if you were stopping your urine stream, but do it when youre not urinating. Tighten your rectum as if trying not to pass gas. Contract your anus, but dont move your buttocks. Helpful Hints Do your Kegels as often as you can. The more you do them, the faster youll feel the results. Pick an activity you do often as a reminder. For instance, do your Kegels every time you sit down. Tighten your pelvic floor before you sneeze, get up from a chair, cough, laugh, or lift. This protects your pelvic floor from injury and can help prevent urine leakage. Try to hold each Kegel for a slow count to five. You probably wont be able to hold them for thatlong at first, but keep practicing. It will get easier as your pelvic floor gets stronger. Eventually, special weights that you place in your vagina may be recommended to help make your Kegels even more effective. [employer] Patient Education Copyright 2009 - 2010 [employer] except where otherwise noted. Here are some helpful tips for your urinary incontinence: (This education is for all patients over 65 regardless of symptoms) Practice Kegel exercises Use the restroom every 2 hours throughout the day Limit caffeine, alcohol, spicy foods, and acidic foods Keep a bladder diary Limit fluid intake 3-4 hours before bed Lose weight Prevent constipation Take fluid pills at a time when can get to the bathroom quickly Control sugar better if diabetic Limit fluid intake to 60 oz. per day Any questions, please feel free to contact our office. Hi Ms. Linares, As your primary care physician, I know that regular visits with my patients who have several chronic conditions can go a long way in helping you stay healthy. Many times, the clinic team and I are in touch with you and/or other care team members between office visits to adjust medications, discuss any changes in your health, and review our care plan to make sure it is still meeting your needs. I am dedicated to helping you take a more active role in your overall care. It is important that there are resources available to you, so I created a personalized plan of care with a Health Calendar for you, which is included on the next page of this letter. Below is a list that summarizes your electronic health record: Health Maintenance Due: Health Maintenance Due Topic Date Due Alpha-1 Antitrypsin Never done DXA Scan 06/11/2020 *BISPHONATE OR OTHER ACCEPTABLE MEDICATION NEEDED FOR OSTEOPOROSIS (REFER TO SMARTSET #1146) Never done Depression Screening, Annual for Pts 12 and Over 01/18/2022 Current Medication List: (as of Visit date not found (in office), Visit date not found (telemedicine) ) Current Outpatient Medications Medication Sig Dispense Refill FISH OIL 1000 MG PO CAPS twice daily Multiple Vitamins-Minerals (CENTRUM SILVER 50+WOMEN) TABS Take 1 Tab by mouth daily. Nebulizers (NEBULIZER COMPRESSOR) MISC Inhale via nebulizer. Use as directed. 1 Each 1 Iron 325 (65 Fe) MG Oral Tablet Take by mouth. Cranberry 500 MG Oral Capsule Take 1 Capsule by mouth in the morning and 1 Capsule before bedtime. 50 Cap Zzapsaq-Nmygnfojj-Jlez 333-133-5 MG Oral Tablet Take by mouth. [...] or shortness of breath.. 120 Tablet 3 Losartan Potassium 50 MG Oral Tablet (Cozaar) TAKE TWO TABLETS BY MOUTH EVERY DAY 180 Tablet 3 Anoro Ellipta 62.5-25 MCG/INH Inhalation Aerosol Powder Breath Activated (umeclidinium-vilanterol) Inhale by mouth 1 Puff in the morning. 30 Each 11 Fluticasone Furoate 100 MCG/ACT Inhalation Aerosol Powder Breath Activated (ARNUITY ellipta) Inhale by mouth 1 Puff in the morning. In addition to anoro. 30 Each 11 Benzonatate 100 MG Oral Capsule (Tessalon Perles) Take by mouth 1 Capsule as needed in the morning AND 1 Capsule as needed at noon AND 1 Capsule as needed in the evening for Cough. 30 Capsule 1 Aspirin 81 MG Oral Tablet Chewable Take 1 Tablet by mouth in the morning. Fluticasone Propionate 50 MCG/ACT Nasal Suspension Administer 2 Sprays into each nostril in themorning. 16 g 3 Loratadine 10 MG Oral Tablet (Claritin) Take 1 Tablet by mouth in the morning. For nasal congestion and ear pressure. 30 Tablet 1 Atorvastatin Calcium 40 MG Oral Tablet (Lipitor) TAKE ONE TABLET BY MOUTH EVERY DAY 90 Tablet 1 Clopidogrel Bisulfate 75 MG Oral Tablet (pLAVix) TAKE ONE TABLET BY MOUTH EVERY DAY 90 Tablet 1 Docusate Sodium 100 MG Oral Capsule (Colace) Take 2 Capsules by mouth in the morning. Albuterol Sulfate HFA 108 (90 Base) MCG/ACT Inhalation Aerosol Solution Inhale 2 Puffs by mouthevery 4 hours as needed for Cough, Shortness of Breath or Wheezing. 18 g 5 Montelukast Sodium 10 MG Oral Tablet (Singulair) TAKE ONE TABLET BY MOUTH EVERY DAY 90 Tablet 3 Pantoprazole Sodium 40 MG Oral Tablet Delayed Release (Protonix) TAKE ONE TABLET EVERY DAY 90 Tablet 3 Ipratropium-Albuterol 0.5-2.5 (3) MG/3ML Inhalation Solution (Duoneb) Inhale 3 mL via nebulizerevery 6 hours as needed for Shortness of Breath or Wheezing. 360 mL 0 Ramelteon 8 MG Oral Tablet (Rozerem) TAKE ONE TABLET BY MOUTH AT BEDTIME 30 Tablet 3 Meclizine HCl 12.5 MG Oral Tablet (Antivert) Take 1 Tablet by mouth 3 times a day as needed forDizziness. 30 Tablet 0 Gabapentin 300 MG Oral Capsule (Neurontin) Take 3 Capsules by mouth every night at bedtime. 120Capsule 3 oxygen GAS 2.5 LPM bled through cpap. 1 Each 0 DIURETIC TITRATION PLAN If no improvement on day 3, contact heart failure managing provider. 1 Each 0 Premarin 0.625 MG/GM Vaginal Cream (Estrogens Conjugated) Administer 0.5 g into the vagina at bedtime on Sunday and Sunday only. 42.5 g 1 Diclofenac Sodium 1 % External Gel (Voltaren) Apply 2 g topically to affected area daily as needed for Pain. Apply to L shoulder 350 g 2 No current facility-administered medications for this visit. Current List of Allergies: (as of Visit date not found (in office), Visit date not found (telemedicine) ) Review of patient's allergies indicates: Allergen Reactions Adhesive Tape Other (Please comment) and Hives Caused welts Ginger Pranavin Dm [Dextromethorphan-Guaifenesin] Neuro complications (Please comment) Feels lightheaded/"foggy" Most Recent Lab Results: Results for orders placed or performed in visit on 09/26/22 COMPREHENSIVE METABOLIC PANEL Result Value Ref Range BUN 21 (H) 6 - 20 mg/dL Creatinine 0.8 0.5 - 1.0 mg/dL Estimated Glomerular Filtration Rate 69 >=60 mL/min Sodium 141 135 - 146 mmol/L Potassium 4.0 3.5 - 5.1 mmol/L Chloride 100 98 - 107 mmol/L CO2 30 22 - 32 mmol/L Anion Gap 11 7 - 15 mmol/L Glucose 111 70 - 120 mg/dL Albumin 4.3 3.8 - 5.0 g/dL AST 21 10 - 35 U/L Alkaline Phosphatase 75 35 - 130 U/L Bilirubin, Total 0.3 <=1.2 mg/dL Calcium 9.8 8.4 - 10.2 mg/dL Protein 6.4 6.0 - 8.3 g/dL ALT 23 10 - 35 U/L FERRITIN Result Value Ref Range Ferritin 75 13 - 150 ng/mL IRON SCREEN, INCLUDING TIBC Result Value Ref Range Iron 68 33 - 151 ug/dL Iron Binding Capacity 333 250 - 425 ug/dL Transferrin Saturation Percent 20 15 - 55 % TSH WITH FREE T4 IF INDICATED Result Value Ref Range TSH 3.16 0.27 - 4.20 uIU/mL CBC Result Value Ref Range WBC 7.53 4.00 - 10.80 K/uL RBC 4.08 3.85 - 5.15 M/uL HGB 11.8 (L) 12.0 - 15.3 g/dL HCT 37.2 36.0 - 45.2 % MCV 91.2 81.5 - 97.5 fL MCH 28.9 27.0 - 34.0 pg MCHC 31.7 32.0 - 36.0 g/dL RDW 13.3 11.5 - 15.5 % PLT 312 140 - 400 K/uL MPV 9.6 6.6 - 11.1 fL nRBCs 0 <=0 /100 WBCs DIFFERENTIAL, AUTOMATED Result Value Ref Range WBC 7.53 4.00 - 10.80 K/uL Neutrophils % 52.6 40.0 - 75.0 % Lymphocytes % 26.2 18.0 - 42.0 % Monocytes % 9.6 1.0 - 11.0 % Eosinophils % 10.0 (H) 0.0 - 6.0 % Basophils % 0.8 0.0 - 2.0 % Immature Granulocytes % 0.8 0.0 - 2.0 % Absolute Neutrophils 3.97 1.80 - 7.70 K/uL Absolute Lymphocytes 1.97 1.00 - 4.80 K/ul Absolute Monocytes 0.72 0.00 - 1.10 K/uL Absolute Eosinophils 0.75 (H) 0.00 - 0.70 K/uL Absolute Basophils 0.06 0.00 - 0.20 K/uL Absolute Immature Granulocytes 0.06 0.00 - 0.20 K/uL *Note: Due to a large number of results and/or encounters for the requested time period, some results have not been displayed. A complete set of results can be found in Results Review. Sincerely, Rhys Humphrey MD 03/16/2023 [facility] Calendar (as of Visit date not found (in office), Visit date not found (telemedicine) ) Care needs Care needs Last completed Due next Alpha-1 Antitrypsin --- Never done Bone Density 06/11/2018 06/11/2020 Discuss medication for ostoporosis --- Never done Kidney Function Test 09/26/2022 09/26/2023 Yearly COPD oxygen test 02/23/2023 02/24/2024 Urine albumin/creatinine test 04/28/2022 04/28/2025 Diphtheria, tetanus & pertussis vaccines (3 - Td or Tdap) 09/17/2019 09/17/2029 As you look over the recommended services, be sure to check with your insurance company to determine what's covered. [employer] is a great tool that helps you review your medical record online, including test results, doctor notes and your health summary. You can also schedule appointments with me and other members of your care team, request prescription refills and ask for advice related to your medical conditions at [email or web address]. documented in this encounter Progress Notes * Jessenia Neves RN - 03/16/2023 10:04 AM EDT AD8 Dementia Screening Interview Person answering questions: patient Remember, "Yes, a change" indicates that there has been a change in the last several years caused by cognitive (thinking and memory) problems 1. Problems with judgement (eg: problems making decisions, bad financial decisions, problems with thinking). No (0) 2. Less interest in hobbies/activities. No (0) 3. Repeats the same things over and over (questions, stories, or statements). No (0) 4. Trouble learning how to use a tool, appliance, or gadget (eg: VCR, computer, microwave, remote control). No (0) 5. Forgets correct month or year. No (0) 6. Trouble handling complicated financial affairs (eg: balancing checkbook, income taxes, paying bills). No (0) 7. Trouble remembering appointments. No (0) 8. Daily problems with thinking and/or memory. No (0) TOTAL AD8: 0 - AD8 Dementia Screening Score The final score is a sum of the number items marked "Yes, A Change". 0 - 1: Normal cognition; 2 or greater: Cognitive impairments is likely to be present - further testing required Adult Annual Wellness Visit: Keisha Linares is a 82 year old female who presents for an Adult Annual Wellness Visit. Depression Screening: Did the patient complete the screening questionnaire for Depression? Yes Is the patient's total score for Depression 15 or greater? No, no further intervention needed, unless requested by patient. Did the patient answer positively to the suicide question? No, no further intervention needed, unless requested by patient. In general, compared to other people your age, what would you say that your health is? Good Ht Readings from Last 1 Encounters: 03/16/23 1.626 m (5' 4") Wt Readings from Last 1 Encounters: 03/16/23 66.2 kg (146 lb) Body Mass Index: BMI Less than 30 Body mass index is 25.06 kg/m. BP Readings from Last 1 Encounters: 03/16/23 124/52 Medical/Surgical/Family History Reviewed: Yes Past Medical History: Diagnosis Date Acute cystitis 12/23/13 >100,000 E coli, pansensitive Acute cystitis 01/28/14 10-100,000 col E coli, pansensitive Age-related osteoporosis [...] osteoarthrosis of pelvic region or thigh 09/11/2008 TIA (transient ischemic attack) Past Surgical History: Procedure Laterality Date BREAST LESION,OTHER,EXCISION 1994 Breast Lesion Excise CERV;VAG CANCER SCREEN;PEL & B 03/2000 COLONOSCOPY 03/03/2013 diverticulosis, polyps, internal hemorrhoids COLONOSCOPY, DIAGNOSTIC (RECTUM) 07/31/2017 diverticulosis/[facility] COLONOSCOPY, DIAGNOSTIC (RECTUM) 09/09/2021 diverticulosis / [facility] COLORECTAL CANCER SCREEN; NOT AT RISK 11/[address] ABDOMEN/PELVIS 04/02/2013 mesenteric lymphadenopathy concerning for lymphoma DIGITAL RECTAL EXAM,ANNUAL 03/2000 EGD, FLEXIBLE, DIAGNOSTIC 03/03/2013 mild gastritis EGD, FLEXIBLE, DIAGNOSTIC 07/31/2017 normal bx, hiatal hernia/[facility] EGD, FLEXIBLE, DIAGNOSTIC 10/14/2021 reflux esophagitis, hiatal hernia / [facility] EGD, FLEXIBLE, DIAGNOSTIC 09/09/2021 hiatal hernia / [facility] HEMORRHOIDECTOMY, SIMPLE, 1 COLUMN 1989 Hemorrhoidectomy,Int/Ext,Simple MAMMOGRAM SCREENING-BILATERAL 03/2000 SIGMOIDOSCOPY, DIAGNOSTIC 1996 SPIROMETRY B/A BRONCHODILATOR 01/06/2005 obstructive airway disease THROMBOENDARECTOMY W/PATCH,NECK INCISION Right carotid endarterectomy done in [place] TOTAL ABD HYSTERECTOMY W/WO REMOVAL OF TUBE(S) 1973 non cancer reasons TOTAL HIP REPLACEMENT & PROSTHESIS 08/19/2008 left-dr ilya gamboa Family History Problem Relation Age of Onset Stroke Mother CVA Stroke Father CVA Has patient ever had cancer? No Social History Tobacco Use Smoking status: Former Packs/day: 0.50 Years: 46.00 Pack years: 23.00 Types: Cigarettes Quit date: 10/01/2001 Years since quittin.4 Smokeless tobacco: Never Substance Use Topics Alcohol use: No Vaping/E-Cigarette Use Vaping/E-Cigarette Use Never User Vaping/E-Cigarette Substances Vaping/E-Cigarette Devices Tobacco/Alcohol screening completed today? Yes Hospital Care: Admissions (within the last year): Not Applicable ER within 30 days: No Does the patient have an Advance Directives/Living Will? Yes Last Physical Exam: Last physical exam: 03/16/2023 Does patient see primary provider regularly? Yes Does patient see other providers? Yes, Specialist Patient Care Team updated? Yes Review of patient's allergies indicates: Allergen Reactions Adhesive Tape Other (Please comment) and Hives Caused welts Ginger Tussin Dm [Dextromethorphan-Guaifenesin] Neuro complications (Please comment) Feels lightheaded/"foggy" Immunization History Administered Date(s) Administered COVID-19 mRNA, LNP-s, No Preserve, 2-Dose Series ([employer]) 10/24/2020, 11/14/2020, 07/11/2021 Covid-19, Mrna, Lnp-s, Pf, Bivalent, 30 Mcg, IM, 12 yrs and above (Pfizer) 07/21/2022 Pneumococcal Conjugate Vacc, 13 Valent (Prevnar) 03/16/2015 Pneumococcal Conjugate Vaccine, 20-valent (Denhoed18) 07/21/2022 Pneumococcal Polysaccharide PPV23 (Pneumovax) 07/18/2007, 03/05/2019 Seasonal Influenza, Quadrivalent Hd (Fluzone Hd) 06/08/2021, 06/16/2022 Seasonal Influenza, Quadrivalent, No Preserve, 6 Mons & Above, IM 07/28/2017, 06/28/2018 Seasonal Influenza, Quadrivalent, No Preserve, Adjuvanted, 65+ Yrs, IM 06/16/2020 Seasonal Influenza, Quadrivalent, No Preserve, IM 08/17/2015, 06/27/2016 Seasonal Influenza, Split, IIV3, With Preserve, Inj 09/16/2001, 09/28/2004, 07/12/2006, 07/18/2007, 07/09/2008, 08/13/2009, 07/12/2010, 07/18/2011, 06/18/2012, 07/01/2013, 07/22/2014, 09/18/2014 Seasonal Influenza, Trivalent, Adjuvanted, 65+ yrs 06/09/2019 TD - Tetanus/Diptheria (ADULT) 10/01/2001 TD, Preservative Free 09/17/2019 TDAP (age 11 and older)(Adacel) 08/10/2011 Varicella Zoster Vaccine (Adult) 07/22/2012 Zoster Vaccine Recombinant (Shingrix) 09/15/2019, 04/25/2020 Current Outpatient Medications Medication Sig Dispense Refill FISH OIL 1000 MG PO CAPS twice daily Multiple Vitamins-Minerals (CENTRUM SILVER 50+WOMEN) TABS Take 1 Tab by mouth daily. Nebulizers (NEBULIZER COMPRESSOR) MISC Inhale via nebulizer. Use as directed. 1 Each 1 Iron 325 (65 Fe) MG Oral Tablet Take by mouth. Cranberry 500 MG Oral Capsule Take 1 Capsule by mouth in the morning and 1 Capsule before bedtime. 50 Cap Ihrtjgn-Jfdhhwqlc-Ssbw 333-133-5 MG Oral Tablet Take by mouth. [...] or shortness of breath.. 120 Tablet 3 Losartan Potassium 50 MG Oral Tablet (Cozaar) TAKE TWO TABLETS BY MOUTH EVERY DAY 180 Tablet 3 Anoro Ellipta 62.5-25 MCG/INH Inhalation Aerosol Powder Breath Activated (umeclidinium-vilanterol) Inhale by mouth 1 Puff in the morning. 30 Each 11 Fluticasone Furoate 100 MCG/ACT Inhalation Aerosol Powder Breath Activated (ARNUITY ellipta) Inhale by mouth 1 Puff in the morning. In addition to anoro. 30 Each 11 Benzonatate 100 MG Oral Capsule (Tessalon Perles) Take by mouth 1 Capsule as needed in the morning AND 1 Capsule as needed at noon AND 1 Capsule as needed in the evening for Cough. 30 Capsule 1 Aspirin 81 MG Oral Tablet Chewable Take 1 Tablet by mouth in the morning. Fluticasone Propionate 50 MCG/ACT Nasal Suspension Administer 2 Sprays into each nostril in themorning. 16 g 3 Loratadine 10 MG Oral Tablet (Claritin) Take 1 Tablet by mouth in the morning. For nasal congestion and ear pressure. 30 Tablet 1 Atorvastatin Calcium 40 MG Oral Tablet (Lipitor) TAKE ONE TABLET BY MOUTH EVERY DAY 90 Tablet 1 Clopidogrel Bisulfate 75 MG Oral Tablet (pLAVix) TAKE ONE TABLET BY MOUTH EVERY DAY 90 Tablet 1 Docusate Sodium 100 MG Oral Capsule (Colace) Take 2 Capsules by mouth in the morning. Albuterol Sulfate HFA 108 (90 Base) MCG/ACT Inhalation Aerosol Solution Inhale 2 Puffs by mouthevery 4 hours as needed for Cough, Shortness of Breath or Wheezing. 18 g 5 Montelukast Sodium 10 MG Oral Tablet (Singulair) TAKE ONE TABLET BY MOUTH EVERY DAY 90 Tablet 3 Pantoprazole Sodium 40 MG Oral Tablet Delayed Release (Protonix) TAKE ONE TABLET EVERY DAY 90 Tablet 3 Ipratropium-Albuterol 0.5-2.5 (3) MG/3ML Inhalation Solution (Duoneb) Inhale 3 mL via nebulizerevery 6 hours as needed for Shortness of Breath or Wheezing. 360 mL 0 Ramelteon 8 MG Oral Tablet (Rozerem) TAKE ONE TABLET BY MOUTH AT BEDTIME 30 Tablet 3 Meclizine HCl 12.5 MG Oral Tablet (Antivert) Take 1 Tablet by mouth 3 times a day as needed forDizziness. 30 Tablet 0 oxygen GAS 2.5 LPM bled through cpap. 1 Each 0 DIURETIC TITRATION PLAN If no improvement on day 3, contact heart failure managing provider. 1 Each 0 Premarin 0.625 MG/GM Vaginal Cream (Estrogens Conjugated) Administer 0.5 g into the vagina at bedtime on Sunday and Sunday only. 42.5 g 1 Diclofenac Sodium 1 % External Gel (Voltaren) Apply 2 g topically to affected area daily as needed for Pain. Apply to L shoulder 350 g 2 Gabapentin 300 MG Oral Capsule (Neurontin) Take 3 Capsules by mouth every night at bedtime. 90 Capsule 3 No current facility-administered medications for this visit. 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 Yes Patient takes medications as prescribed? Yes Patient manages own medications: No Patient uses a pill box? Yes, refill(s) completed by pharmacist MV pill packs Dental Exam: Not Applicable full dentures Eye Screening: Yes: Every year Are you having trouble with hearing? yes Do you use an assistive device to help your hearing? Yes Exercise Screening: class every Sunday, and walks daily Nutrition Assessment: lunch and supper. Pain Screening: Are you having any pain? No Sleep Screening Tool 'STOP': 1. Do you snore? unsure 2. Do you feel fatigued during the day? Yes 3. Do you wake up feeling like you haven't slept? Yes 4. Have you been told you stop breathing at night? Yes 5. Do you gasp for air or choke while sleeping? No 6. Have you been told you have Sleep Apnea? Yes 7. Do you have high blood pressure or are on medication(s) to control high blood pressure? Yes SCORE: If you check YES to two or more questions, make a referral for Obstructive Sleep Apnea Pt did use oxygen with CPAP, but has not used cpap in 2yrs. Never replaced. Patient and Caregiver Support System: Patient lives alone Means of Transportation: Drives. Not a concern. Patient lives in [facility] Community Resources: Not Applicable Functional Status and ADL Skills: Has patient ever had an amputation? No Functional Assessment: 90- Able to carry on normal activity, minor symptoms of disease Ambulation: Patient ambulates with assistive device. Walker Dressing: Gets clothes and dresses without any assistance: Independent Able to move freely in chair or bed including turning over: Independent Repositioning (bed or chair): Not applicable Transfers: Independent Toileting: Goes to bathroom, uses toilet, arranges clothes and returns without any assistance: Independent Toileting: continent of bladder and continent of bowel Feeding: Self Bathing: Self; Shower Chair, walk in shower, grab bar Requires none assistance with ADLs. Instrumental ADL's: Shopping: Independent Housekeeping: Independent Handling Finances: Independent DME Vendor Name: Not Applicable Fall Risk Assessment: Can the patient demonstrate that she can stand from a sitting position? Yes Has the patient had a fall within the last 6 months? Yes Does the patient have a problem with her gait or balance? Yes Does the patient take 4 or more prescription medicines? Yes Does the patient use sedatives or narcotics? No Fall Risk Factors Present: History of falls within the past 6 months Yes Uses more than 4 medications Balance or gait disturbances Lower extremity weakness Visually impaired History of dementia Older than age 70 Vgp-Ur-xyw-Go Test: Time began at 1000. Patient stood from sitting position and walked approximately 10 feet, returned and sat down. Total time for qyj-ki-hon-go test was 10 seconds. Ohg-Fs-xxk-Go Test completed? Yes Gender Specific Preventative Plan: Health Maintenance Topic Date Due Alpha-1 Antitrypsin Never done DXA Scan 06/11/2020 *BISPHONATE OR OTHER ACCEPTABLE MEDICATION NEEDED FOR OSTEOPOROSIS (REFER TO SMARTSET #5353) Never done Depression Screening, Annual for Pts 12 and Over 01/18/2022 GFR 09/26/2023 O2 ASSESSMENT COMPLETED IN PAST YEAR FOR COPD 02/24/2024 Albumin/Creatinine Ratio 04/28/2025 DTaP,Tdap,and Td Vaccines (3 - Td or Tdap) 09/17/2029 VITAMIN D LEVEL ONCE IN A LIFETIME-USE SMARTSET# [id number] Completed Influenza Vaccine (FLU shot) Completed Zoster Vaccines Completed Pneumococcal Vaccine: 65+ Years Completed COVID-19 Vaccine Completed Hepatitis B Aged Out MENINGOCOCCAL (MENACTRA/MENVEO) Aged Out GARDASIL-HPV IMMUNIZATION SERIES Aged Out Follow Up/ Referrals/Handouts: Depression screening - completed Functional assessment - doing amazing, traveling with her friend Falls Risk screening - encouraged her to use her walker Exercise screening -encourage her to keep up with her walking and exercise classes on Sunday Nutrition assessment -. Education Provided and Handouts Provided Pain screening - discussed Incontinence screening - no concerns Patient has been verbally educated on the need or importance of Cholesterol, Dexa Scan, GFR, Glucose and Immunizations: covid,flu,shingles Pt has completed the covid vaccines: Yes, Including bivalent Flu and shingles completed Routine general medical examination at a health care facility (Primary) Risk and functional assessment Age-related osteoporosis without current pathological fracture - DEXA SCAN/BONE MINERAL AXIAL; Future; Expected date: 04/15/2023 Osteopenia of neck of femur - DEXA SCAN/BONE MINERAL AXIAL; Future; Expected date: 04/15/2023 Chronic insomnia Pt does use oxygen, but she used to have a cpap, it was recalled and she never got a new one. COPD, group D, by GOLD 2017 classification ([facility]) - Med reconciliation completed and compliance discussed. - pt to continue present medications. Dyslipidemia, goal LDL below 70 - Med reconciliation completed and compliance discussed. - pt to continue present medications. Lab Results Component Value Date/Time LDL CHOLESTEROL (CALCULATED) - TUAN 84 04/28/2022 09:23 AM LDL CHOLESTEROL (CALCULATED) - AdenyoER 80 03/03/2019 09:10 AM LDL CHOLESTEROL (DIRECT MEASURE) - AdenyoER NOT APPLICABLE 03/03/2019 09:10 AM HTN, goal below 140/90 - Med reconciliation completed and compliance discussed. - pt to continue present medications. BP Readings from Last 3 Encounters: 03/16/23 124/52 03/16/23 124/52 02/23/23 118/48 Gastroesophageal reflux disease without esophagitis - Med reconciliation completed and compliance discussed. - pt to continue present medications. Hx of nonmelanoma skin cancer Pt does follow up with dermatology Hypertensive heart disease with chronic diastolic congestive heart failure (HCC) - Med reconciliation completed and compliance discussed. - pt to continue present medications. Iron deficiency - Med reconciliation completed and compliance discussed. - pt to continue present medications. ISELA (obstructive sleep apnea) - I will contact sleep medicine re getting another Other allergic rhinitis - Med reconciliation completed and compliance discussed. - pt to continue present medications. RLS (restless legs syndrome) - Med reconciliation completed and compliance discussed. - pt to continue present medications. Pt did see Dr. Humphrey today before my appointment, per Dr. Humphrey she is to discharge melantonin and only take the remeteon 8mg, he was sending a refill of her voltaren and a change in her Gapepentin dosage the same but taking 3 at bedtime . Spoke to Cassandra and her pill pk will be changed. Follow Up: Return in 1 year (on 03/16/2024) for 12 month Subsequent Adult Wellness Visit. | For: 12 month Subsequent Adult Wellness Visit | Check-out note: 12 month Subsequent Adult Wellness Visit Would patient like to schedule next AWV visit? Yes Jessenia Neves RN documented in this encounter Miscellaneous Notes * Pt Handout (on AVS) - Jessenia Neves RN - 03/16/2023 10:38 AM EDT Images from the original note were not included. 82721 Preventing Osteoporosis: Meeting Your Calcium Needs Your body needs calcium to build and repair bones. But it can't make calcium on its own. That's whyit's important to eat calcium-rich foods. Some foods are naturally rich in calcium. Others have calcium added (fortified). It's best to get calcium from the foods you eat. But if you can't get enough, you may want to take calcium supplements. To meet your daily calcium needs, try the foods listed below. Dairy Fish & beans Other sources Source Calcium (mg) per serving Source Calcium (mg) per serving Source Calcium (mg) per serving Low-fat yogurt, plain 415 mg/8 oz. Sardines, [place], canned, with bones 351 mg/3 oz. Oatmeal, instant, fortified 215 mg/1 cup Nonfat milk 302 mg/1 cup [place], sockeye, canned, with bones 239 mg/3 oz. Tofu made with calcium sulfate 204 mg/3 oz. Low-fat milk 297 mg/1 cup Soybeans, fresh, boiled 131 mg/1/2 cup Collards 179 mg/1/2 cup [place]onese cheese 272 mg/1 oz. White beans, cooked 81 mg/1/2 cup Indonesian muffin, whole wheat 175 mg/1 muffin Cheddar cheese 205 mg/1 oz. [place] beans, cooked 79 mg/1/2 cup Kale 90 mg/1/2 cup Ice cream strawberry 79 mg/1/2 cup [place], navel 56 mg/1 medium Note: Calcium levels may vary depending on brand and size. Daily calcium needs 14 to 18 years old: 1,300 mg 19 to 30 years old: 1,000 mg 31 to 50 years old: 1,000 mg 51 to 70 years old, women: 1,200 mg 51 to 70 years old, men: 1,000 mg or nursin to 18 years old: 1,300 mg, 19 to 50 years old: 1,000 mg Older than 70 (women and men): 1,200 mg Last Reviewed Date: 08/01/202119996942-8405 [employer]. All rights reserved. This information is not intended as a substitute for professional medical care. Always follow your healthcare professional's instructions. * Pt Handout (on AVS) - Jessenia Neves RN - 03/16/2023 10:33 AM EDT Images from the original note were not included. 63488 Mind-Body Therapy Mind-body therapy is based on the belief that thoughts and physical health are closely connected. Aperson's attitudes, beliefs, and outlook can all affect physical health. And physical health also can impact mental and emotional well- being. By being aware of the connection and learning new ways toconnect these areas, a person can learn to optimize their overall wellness and health. Uniting mind and body Mind-body therapy is a way to improve the link between mental and physical health. By doing so, youmay find untapped resources within yourself that may enhance your general health and mental outlook. The power of suggestion is ace to this type of therapy. A therapist may give suggestions that can help you better unite mind with body. Some therapists use a biofeedback machine that uses sensory feedback from the body allowing first hand observation of the effect that the mind has on the physical body. The way you receive the suggestion matters less than what it teaches you about how to relax. A relaxed mind and body are ace to this therapy. In fact, enhanced relaxation is often a main goal of therapy. Questions for the mind-body therapist Before you decide whether to use mind-body therapy, talk with at least 1 professional who practicesit. Asking them some of these questions may help you make an informed choice: What is your training? How long have you been practicing? What results have you had working with people who have problems like mine? What will a typical visit be like? How long will treatment take? How much will it cost? Will my insurance cover my therapy? How long will my results last? Common choices in mind-body therapy Biofeedback. Sensory feedback is used to help control physiological function. Guided imagery. Suggestion or thought is used to enhance awareness. Hypnosis. Suggestion or relaxation is used to help influence mental and emotional state. Meditation and prayer. Thought or spiritual belief is used to improve any aspect of health and well-being. Progressive relaxation. Focused awareness of the body is used to reduce stress. Yoga. Movement, breathing, and thought are used to improve well-being. Resources Research mind-body therapy online or by contacting: Association for Applied Psychophysiology and Biofeedback at www.aapb.org The Academy for Guided Imagery at www.[employer].[facility] at www.cmbm.org [employer] [employer] Hypnosis at www.asch.net Last Reviewed Date: 07/01/202119993190-3382 [employer]. All rights reserved. This information is not intended as a substitute for professional medical care. Always follow your healthcare professional's instructions. * Pt Handout (on AVS) - Jessenia Neves RN - 03/16/2023 10:32 AM EDT Images from the original note were not included. 19365 Progressive Relaxation Your body needs relaxation to reduce stress and calm the dcgsc-sh-vjxkho response. It helps to planfor about 20 minutes of relaxation every day when you can take time for yourself. Sit or lie comfortably, limiting distractions like phones. Put on some soft music or simply sit in silence. Then incorporate the progressive relaxation technique below. How to do progressive relaxation Progressive relaxation helps your whole body relax. To try this technique, follow these steps: 1. Find a quiet room. Sit in a comfortable chair or lie on your back. 2. Breathe in deeply to a slow count of 5. Feel your belly, chest, and back expand. Breathe out slowly to a count of 5. Do this for several minutes. 3. After a few minutes, breathe in deeply again, but this time tighten the muscles in your feet. Notice how it feels. Hold the tension for 3 seconds. 4. Breathe out while relaxing the tightened muscles. Notice how relaxed you feel. 5. Repeat steps 3 and 4 with another muscle group. You can move from your feet, calves, and thighs to your stomach, arms, and hands. Remember the 4 A?s Avoid a stressor. For example, if someone is smoking when you?re trying to quit, leave the room. Alter how you deal with a stressor. For example, let the answering machine pear picker if a constantly ringing phone is a stressor. Accept a stressor you can?t change, like a job loss, by knowing that your feelings are normal. Adapt to some stressors. For example, when starting a new exercise program, instead of focusing on how hard it will be, think how good you will feel. Last Reviewed Date: 12/30/202119997962-6119 [employer]. All rights reserved. This information is not intended as a substitute for professional medical care. Always follow your healthcare professional's instructions. * Pt Handout (on AVS) - Jessenia Neves RN - 03/16/2023 10:30 AM EDT [id number] Overview of Sleep Disorders Facts about sleep disorders Loss of sleep can cause problems at home or on the job. It can lead to serious or even fatal accidents. The National Sleep Foundation notes that: Between 50 and 70 million [place] adults have some type of sleep or wakefulness disorder. Sleep problems often get worse as you get older. Poor sleep cost billions of dollars a year. This is from healthcare expenses and lost productivity. Drowsy drivers cause about 40,000 vehicle crashes in the [place] every year. This includes more than 1,500 deaths. Types of sleep disorders There are many types of sleep disorders. They can affect health and quality of life. The disorders include: Insomnia Sleep apnea Sleepwalking Bedwetting Nightmares Night terror Restless legs syndrome Snoring Narcolepsy Why is sleep important? Sleep is not just resting or taking a break from busy routines. Sleep is a ace part of good health.Getting enough sleep may help the body recover from illness and injury. Not getting enough sleep over a period of time is linked to health problems. They include obesity, diabetes, and heart disease. The mental benefits of sleep are also important. Sleep problems can make daily life feel more stressful and less productive. Some people with chronic trouble sleeping (insomnia) are more likely to have mental health problems. Sleep problems are also tied to depression. In a research survey, people who had trouble getting enough sleep had trouble doing tasks that use memory and learning. How much sleep do you need? Sleep needs vary from person to person. But most healthy adults need about 7 to 9 hours of sleep a night. You may need more or better sleep if you: Have trouble staying alert during quiet activities Are irritable with coworkers, family, or friends Have trouble focusing or remembering facts Have trouble falling asleep or staying asleep, or wake up early and can't get back to sleep Getting treatment for a sleep disorder For those who suffer from sleep disorders, help is available from many sources. Sleep problems can be treated or managed by different kinds of healthcare providers. You may be treated by a healthcareprovider who specializes in any of these: Internal medicine Gerontology Pediatrics Family practice Pulmonary medicine Neurology Psychiatry Otolaryngology You can also find a healthcare provider who is certified in sleep medicine by the [place] [facility]. Talk with your healthcare provider about finding a sleep disorder program. Last Reviewed Date: 10/01/202219996832-5390 [employer]. All rights reserved. This information is not intended as a substitute for professional medical care. Always follow your healthcare professional's instructions. * Pt Handout (on AVS) - Jessenia Neves RN - 03/16/2023 10:29 AM EDT Images from the original note were not included. 31505 5 Steps for Eating Healthier Changing the way you eat can improve your health. It can lower your cholesterol and blood pressure,and help you stay at a healthy weight. Your diet doesn?t have to be bland and boring to be healthy.Just watch your calories and follow these steps: Step 1. Eat fewer unhealthy fats Choose more fish and lean meats instead of fatty cuts of meat. Skip butter and lard, and use less margarine. Replace these with healthier fats, such as olive, canola, or avocado oils. Pass on foods that have palm, coconut, or partially hydrogenated oils. Eat fewer high-fat dairy foods like cheese, ice cream, and whole milk. Get a heart-healthy cookbook and try some new recipes. Step 2. Go light on salt Keep the saltshaker off the table. Limit high-salt ingredients, such as soy sauce, bouillon, and garlic salt. Instead of adding salt when cooking, season your food with herbs, spices, and other flavorings. Try lemon, garlic, onion, vinegar, or salt-free herb seasonings. Limit convenience foods, such as boxed or canned foods and restaurant food. Read food labels and choose lower-sodium options. Buy fresh, frozen, or canned vegetables that don't have added salt. Step 3. Limit sugar Pause before you add sugars to pancakes, cereal, coffee, or tea. This includes white and brown table sugar, syrup, honey, and molasses. Cut your usual amount by half. Swap out sugar-filled soda and other drinks. Buy sugar-free or low-calorie beverages. Remember, water is always the best choice. Try adding lemon juice to water for extra flavor. Read labels and choose foods with less added sugar. Keep in mind that dairy foods and foods withfruit will have some natural sugar. Cut the sugar in recipes by 1/3 to 1/2. Boost the flavor with extracts like almond, vanilla, or orange. Or add spices such as cinnamon or nutmeg. Step 4. Eat more fiber Eat fresh fruits and vegetables every day. Boost your diet with whole grains. Go for oats, whole-grain rice, and bran. Add beans and lentils to your meals. Drink more water to match your fiber increase to help prevent constipation. Step 5. Pay attention to serving sizes Remember that a serving size is a standard measurement. It will let you track the amount of fat,calories, and other nutrients in the food you eat. Read the Nutrition Facts label on packaged foods to learn their serving sizes. Use serving sizes to assess how much food you put on your plate. Pay attention to your portions.How many servings are you eating? Keep in mind that your needs may change if you?re more active or less active, or if you have other factors that change your calorie needs. Use your hand to help you measure serving sizes. For example: o 1 teaspoon: This is about the size of the first joint of your thumb. o 1 tablespoon: This is about the size of the first 2 joints of your thumb. o 1 ounce: This is about what you can fit in your cupped hand. o 2 to 3 ounces: This is about the size of the palm of your hand. o cup: This is also about what you can fit in your cupped hand. o 1 cup: This is about the size of your fist. Last Reviewed Date: 08/31/202219992896-5153 [employer]. All rights reserved. This information is not intended as a substitute for professional medical care. Always follow your healthcare professional's instructions. documented in this encounter Plan of Treatment Upcoming Encounters Date Type Specialty Care Team Description 03/30/2023 Telemedicine [facility] Denise Do PA-Hector [address] [facility] [place] [address] Marlen Strange [facility] [employer] P[employer] [address] [place] [address] [place] [address] 04/09/2023 Home Visit [facility] Amy Zaragoza RN [address] [place] [address] 05/01/2023 Imaging Radiology 06/07/2023 Office Visit Family Medicine Rhys Humphrey MD [address] [place] [address] [place] [address] 06/21/2023 Office Visit Cardiology Mi Neil PA-C [address] [place] [address] 09/17/2023 Office Visit Dermatology Marycruz Almazan PA-C [address] [place] [address] [place] [address] 03/18/2024 Nurse Only Ancillary [place], Nurse Annual Wellness [address] [place] [address] [place] [address] Scheduled Orders Name Type Priority Associated Diagnoses Orde r Schedule DEXA SCAN/BONE MINERAL AXIAL Medical Imaging Routine Age-related osteoporosis without current pathological fracture Osteopenia of neck of femur Expected: 04/15/2023 (Approximate), Expires: 04/15/2024 Health Maintenance Due Date Last Done Comments [...] D LEVEL ONCE IN A LIFETIME-USE SMARTSET# [id number] Completed 06/29/2020, 03/16/2015 Influenza Vaccine (FLU shot) [...] as of this encounter Visit Diagnoses Diagnosis Routine general medical examination at a health care facility- Primary Risk and functional assessment Screening for unspecified condition Age-related osteoporosis without current pathological fracture Senile osteoporosis Osteopenia of neck of femur Chronic insomnia Insomnia, unspecified COPD, group D, by GOLD 2017 classification (HCC) Dyslipidemia, goal LDL below 70 Other and unspecified hyperlipidemia HTN, goal below 140/90 Unspecified essential hypertension Gastroesophageal reflux disease without esophagitis Esophageal reflux Hx of nonmelanoma skin cancer Personal history of other malignant neoplasm of skin Hypertensive heart disease with chronic diastolic congestive heart failure (HCC) Iron deficiency Iron deficiency anemia, unspecified ISELA (obstructive sleep apnea) Obstructive sleep apnea (adult) (pediatric) Other allergic rhinitis RLS (restless legs syndrome) Restless legs syndrome (RLS) documented in this encounter Advance Directives Documents on File Type Date Recorded Patient Supervisor Welding Equipment Repairer Expl anation POLST 10/15/2019 3:17 PM POLST POLST 03/05/2019 POLST FORM Advance Directives and Living Will 01/27/2013 LIVING WILL Advance Directives and Living Will 01/27/2013 LIVING WILL Power of Race Relations Adviser 01/27/2013 POWER OF A TTORNEY Power of Race Relations Adviser 01/27/2013 POWER OF A TTORNEY Healthcare Agents on File Name Relationship Healthcare Agent Relationship Communication Cydney Benito Other - (no specific identity) Second Alternate Health Care Agent Anyi More Adult Child Health Care Roberth cooper of Race Relations Adviser Care Teams Restaurant Area Director Relationship Specialty Start Date End Date Sellathurai, Thiviyanath, MD [address] [place] [address] [place] [address] PCP - General Family Medicine 06/09/21 documented as of this encounter
--- OUTSIDE RECORDS SUMMARY | 2023-08-14 23:34 | External Medical Summary | Summary of Care ---
Author Name Unknown Organization [facility] Address [address] [place] [address] Phone [phone] Care Team Providers Care Machine Operator Slitter Technician Name Role Phone Rhys Humphrey MD Primary Care Provide r Reason for Visit * Reason Comments eRx-Medication Refill Encounter Details Date Type Department Care Team Description 03/21/2023 Refill Family Medicine [address] [phone] Rhys Humphrey MD [address] [place] [address] [place] [address] COPD, group D, by GOLD 2017 classification ([facility]) Allergies Active Allergy Reactions Severity [...] Each 0 0 Active Nebulizers (NEBULIZER COMPRESSOR) MISCIndications:ACUTE CARE NURSING ASSISTANT D, 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 Use as directed. 1 Each 1 0 Active Iron 325 (65 Fe) MG Oral Tablet Take by mouth. 0 Active Cranberry 500 MG Oral Capsule Take 1 Capsule by mouth in the morning and 1 Capsule before bedtime. 50 Cap 0 1 Active Mgfzcav-Ydkgywhzq-R inc 333-133-5 MG Oral Tablet Take by [...] of breath.. 120 Tablet 3 2 Active Losartan Potassium 50 MG Oral Tablet (Cozaar)Indications :HTN, goal below 140/90 TAKE TWO TABLETS BY MOUTH EVERY DAY 180 Tablet 3 2 Active Anoro Ellipta 62.5-25 [...] to anoro. 30 Each 11 2 Active Benzonatate 100 MG Oral Capsule (Tessalon Perles) Take by mouth 1 Capsule as needed in the morning AND 1 Capsule as needed at noon AND 1 Capsule as needed in the evening for Cough. 30 Capsule 1 2 Active Aspirin 81 MG Oral Tablet [...] ear pressure. 30 Tablet 1 3 Active Atorvastatin Calcium 40 MG Oral Tablet (Lipitor)Indication s:Dyslipidemia, goal LDL below 100 TAKE ONE TABLET BY MOUTH EVERY DAY 90 Tablet 1 3 Active Clopidogrel Bisulfate 75 MG Oral Tablet (pLAVix)Indications :TIA (transient ischemic attack) TAKE ONE TABLET BY MOUTH EVERY DAY 90 Tablet 1 3 Active Docusate Sodium 100 [...] EVERY DAY 90 Tablet 3 3 Active Premarin 0.625 MG/GM Vaginal Cream (Estrogens Conjugated)Indicati ons:Vaginal irritation Administer 0.5 g into the vagina at bedtime on Sunday and Sunday only. 42.5 g 1 3 Active Ramelteon 8 MG Oral Tablet (Rozerem)Indication s:Insomnia, unspecified type TAKE ONE TABLET BY MOUTH AT BEDTIME 30 Tablet 3 3 Active Meclizine HCl 12.5 MG Oral Tablet (Antivert)Indicatio ns:Vertigo Take 1 Tablet by mouth 3 times a day as needed for Dizziness. 30 Tablet 0 3 Active Diclofenac Sodium 1 % External Gel (Voltaren)Indicatio ns:pain Apply 2 g topically to affected area daily as needed for Pain. Apply to L shoulder 350 g 2 3 Active Gabapentin 300 MG Oral Capsule [...] or Wheezing. 360 mL 3 3 Active Ipratropium-Albuter ol 0.5-2.5 (3) MG/3ML Inhalation Solution (Duoneb)Indications :COPD, group D, by GOLD 2017 classification ([facility]) Inhale 3 mL via nebulizer every 6 hours as needed for Shortness of Breath or Wheezing. 360 mL 0 3 03/22/20 23 Discontinued documented as of this encounter [...] mRNA, LNP-s, No Pre serve, 2-Dose Series ([employer]) 07/11/2021,11/14/2020,10/24/2020 Covid-19, Mrna, Lnp-s, Pf, B ivalent, 30 Mcg, IM, 12 yrs and above ([employer]) 07/21/2022 Pneumococcal Conjugate Vacc, 13 Valent (Prevnar) 03/16/2015 Pneumococcal Conjugate Vacci ne, 20-valent ([id number]) 07/21/2022 Pneumococcal Polysaccharide PPV23 (Pneumovax) 03/05/2019,07/18/2007 Seasonal [...] encounter Miscellaneous Notes * Telephone Encounter - Zuleyma Stone [facility] - 03/22/2023 1:42 PM EDT Signed Prescriptions: Disp Refills Ipratropium-Albuterol 0.5-2.5 (3) MG/3ML I*360 mL 3 Sig: Inhale 3 mL via nebulizer every 6 hours as needed for Shortness of Breath or Wheezing.Authorizing Provider:Angela HUMPHREY User: TUMAN, ZULEYMA LUIZ documented in this encounter Plan of Treatment Upcoming Encounters Date Type Specialty Care Team Description 03/30/2023 Telemedicine [facility] Denise Do PA-C [address] [facility] [place] [address] Marlen Strange [facility] Support Associate [address] [place] [address] [place] [address] 04/09/2023 Home Visit [facility] Amy Zaragoza RN [address] [place] [address] 05/01/2023 Imaging Radiology 06/07/2023 Office Visit Family Medicine Rhys Humphrey MD [address] [place] [address] [place] [address] 06/21/2023 Office Visit Cardiology Mi Neil PA-C [address] [place] [address] 09/17/2023 Office Visit Dermatology Marycruz Almazan PA-C [address] [place] [address] [place] [address] 03/18/2024 Nurse Only Ancillary Stanton, Nurse Annual Wellness [address] [place] [address] [place] [address] Health Maintenance Due Date Last Done Comments [...] D LEVEL ONCE IN A LIFETIME-USE SMARTSET# [id number] Completed 06/29/2020, 03/16/2015 Influenza Vaccine (FLU shot) [...] Documents on File Type Date Recorded Patient Manager Clinical Pharmacy Expl anation POLST 10/15/2019 3:17 PM POLST POLST 03/05/2019 POLST FORM Advance Directives and Living Will 01/27/2013 LIVING WILL Advance Directives and Living Will 01/27/2013 LIVING WILL Power of Schedule Planning Manager 01/27/2013 POWER OF A TTORNEY Power of Schedule Planning Manager 01/27/2013 POWER OF A TTORNEY Healthcare Agents on File Name Relationship Healthcare Agent Relationship Communication Cydney Benito Other - (no specific identity) Second Alternate Health Care Agent Anyi More Adult Child Health Care Roberth r of Schedule Planning Manager Care Teams Machine Operator Slitter Technician Relationship Specialty Start Date End Date Rhys Humphrey MD [address] [place] [address] [place] [address] PCP - General Family Medicine 06/09/21 documented as of this encounter
--- OUTSIDE RECORDS SUMMARY | 2023-08-14 23:34 | External Medical Summary | Summary of Care ---
Author Name Unknown Organization [facility] Address [address] [place] [address] Phone [phone] Care Team Providers Care Hedis Review Nurse Name Role Phone Rhys Humphrey MD Primary Care Provide r Reason for Visit * Reason Comments Adult Annual Wellness Visit, Initial Vis it Encounter Details Date Type Department Care Team Description 03/16/2023 Nurse Only Ancillary [address] [place] [phone] [facility], Nurse [address] [place] [phone] Adult Annual Wellness Visit, Initial Visit Allergies [...] Each 0 11/11/2019 Active Nebulizers (NEBULIZER COMPRESSOR) MISCIndications:DIVORCE MEDIATOR D, 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 Use as directed. 1 Each 1 11/17/2019 Active Iron 325 (65 Fe) MG Oral Tablet Take by mouth. 0 Active Cranberry 500 MG Oral Capsule Take 1 Capsule by mouth in the morning and 1 Capsule before bedtime. 50 Cap 0 01/18/2021 Active Lybmyiq-Xwfletovv-W inc 333-133-5 MG Oral Tablet Take by [...] Base) MCG/ACT Inhalation Aerosol SolutionIndications :COPD, moderate ([facility]) Inhale 2 [...] :COPD, group D, by GOLD 2017 classification ([facility] [...] mRNA, LNP-s, No Pre serve, 2-Dose Series ([employer]) 07/11/2021,11/14/2020,10/24/2020 Covid-19, Mrna, Lnp-s, Pf, B ivalent, 30 Mcg, IM, 12 yrs and above ([employer]) 07/21/2022 Pneumococcal Conjugate Vacc, 13 Valent (Prevnar) 03/16/2015 Pneumococcal Conjugate Vacci ne, 20-valent ([id number]) 07/21/2022 Pneumococcal Polysaccharide PPV23 (Pneumovax) 03/05/2019,07/18/2007 Seasonal [...] 10 times. Repeat this throughout the day. [employer] Patient Education Copyright 2008 [employer] except where otherwise noted. Preventing Falls: Moving [...] that mean climbing, even on a stepstool. [employer] Patient Education Copyright 2008 [employer] except where otherwise noted. Urinary Incontinence Plan [...] even more effective. Isaak Patient Education Copyright 2008 - 2010 Isaak except where otherwise noted. [...] and 1 Capsule before bedtime. 50 Cap Cfoefgz-Krcfeikjm-Mqbg 333-133-5 MG Oral Tablet Take by mouth. [...] Results Review. Sincerely, Rhys Humphrey MD 03/16/2023 [facility] Calendar (as of Visit date not [...] your insurance company to determine what's covered. [employer] is a great tool that helps you review your medical record online, including test results, doctor notes and your health summary. You can also schedule appointments with me and other members of your care team, request prescription refills and ask for advice related to your medical conditions at [email or web address]. documented in this encounter Progress Notes * [...] polyps, internal hemorrhoids COLONOSCOPY, DIAGNOSTIC (RECTUM) 07/31/2017 diverticulosis/[facility] COLONOSCOPY, DIAGNOSTIC (RECTUM) 09/09/2021 diverticulosis / [facility] COLORECTAL CANCER SCREEN; NOT AT RISK 11/[address] ABDOMEN/PELVIS 04/02/2013 mesenteric lymphadenopathy concerning for lymphoma DIGITAL RECTAL EXAM,ANNUAL 03/2000 EGD, FLEXIBLE, DIAGNOSTIC 03/03/2013 mild gastritis EGD, FLEXIBLE, DIAGNOSTIC 07/31/2017 normal bx, hiatal hernia/[facility] EGD, FLEXIBLE, DIAGNOSTIC 10/14/2021 reflux esophagitis, hiatal hernia / [facility] EGD, FLEXIBLE, DIAGNOSTIC 09/09/2021 hiatal hernia / [facility] HEMORRHOIDECTOMY, SIMPLE, 1 COLUMN 1989 Hemorrhoidectomy,Int/Ext,Simple MAMMOGRAM SCREENING-BILATERAL 03/2000 SIGMOIDOSCOPY, DIAGNOSTIC 1996 SPIROMETRY B/A BRONCHODILATOR 01/06/2005 obstructive airway disease THROMBOENDARECTOMY W/PATCH,NECK INCISION Right carotid endarterectomy done in [facility] TOTAL ABD HYSTERECTOMY W/WO REMOVAL OF TUBE(S) [...] Valent (Prevnar) 03/16/2015 Pneumococcal Conjugate Vaccine, 20-valent ([id number]) 07/21/2022 Pneumococcal Polysaccharide PPV23 (Pneumovax) 07/18/2007, 03/05/2019 [...] and 1 Capsule before bedtime. 50 Cap Hwovwpw-Qebobeknl-Jdde 333-133-5 MG Oral Tablet Take by mouth. [...] of lung R91.8 Major depression in remission ([facility]) F32.5 COPD, group D, by GOLD 2017 classification ([facility]) J44.9 Gastroesophageal reflux disease without esophagitis [...] Drives. Not a concern. Patient lives in [facility] 4th floor Community Resources: Not Applicable [...] History of dementia Older than age 70 Ekc-Rg-enm-Go Test: Time began at 1000. Patient stood from sitting position and walked approximately 10 feet, returned and sat down. Total time for aja-yr-bxh-go test was 10 seconds. Oxt-Rg-yht-Go Test completed? Yes Gender Specific Preventative Plan: Health Maintenance Topic Date Due Alpha-1 Antitrypsin Never done DXA Scan 06/11/2020 *BISPHONATE OR OTHER ACCEPTABLE MEDICATION NEEDED FOR OSTEOPOROSIS (REFER TO SMARTSET #1021) Never done Depression Screening, Annual for Pts 12 and Over 01/18/2022 GFR 09/26/2023 O2 ASSESSMENT COMPLETED IN PAST YEAR FOR COPD 02/24/2024 Albumin/Creatinine Ratio 04/28/2025 DTaP,Tdap,and Td Vaccines (3 - Td or Tdap) 09/17/2029 VITAMIN D LEVEL ONCE IN A LIFETIME-USE SMARTSET# [id number] Completed Influenza Vaccine (FLU shot) Completed Zoster [...] GOLD 2017 classification ([facility]) - Med reconciliation completed and compliance discussed. - pt to continue present medications. Dyslipidemia, goal LDL below 70 - Med reconciliation completed and compliance discussed. - pt to continue present medications. Lab Results Component Value Date/Time LDL CHOLESTEROL (CALCULATED) - TUAN 84 04/28/2022 09:23 AM LDL CHOLESTEROL (CALCULATED) - TUAN 80 03/03/2019 09:10 AM LDL CHOLESTEROL (DIRECT MEASURE) - Quick HangKEVINER NOT APPLICABLE 03/03/2019 09:10 AM HTN, goal [...] discussed. - pt to continue present medications. Follow Up: Return in 1 year (on [...] from the original note were not included. 17558 Preventing Osteoporosis: Meeting Your Calcium Needs Your [...] Low-fat yogurt, plain 415 mg/8 oz. Sardines, [place], canned, with bones 351 mg/3 oz. Oatmeal, instant, fortified 215 mg/1 cup Nonfat milk 302 mg/1 cup [place], sockeye, canned, with bones 239 mg/3 oz. Tofu made with calcium sulfate 204 mg/3 oz. Low-fat milk 297 mg/1 cup Soybeans, fresh, boiled 131 mg/1/2 cup Collards 179 mg/1/2 cup Greek cheese 272 mg/1 oz. White beans, cooked 81 mg/1/2 cup Tuvaluan muffin, whole wheat 175 mg/1 muffin Cheddar cheese 205 mg/1 oz. [place] beans, cooked 79 mg/1/2 cup Kale 90 mg/1/2 cup Ice cream strawberry 79 mg/1/2 cup Nuckolls, navel 56 mg/1 medium Note: Calcium levels [...] and men): 1,200 mg Last Reviewed Date: 08/01/202119997918-5183 [employer]. All rights reserved. This information is not intended as a substitute for professional medical care. Always follow your healthcare professional's instructions. * Pt Handout (on AVS) - Jessenia Neves RN - 03/16/2023 10:33 AM EDT Images from the original note were not included. 94617 Mind-Body Therapy Mind-body therapy is based on [...] www.aapb.org The [employer]agery at www.Gigal[employer] [facility] at www.cm.org [place] [employer] Hypnosis at www.asch.net Last Reviewed Date: 07/01/202119991809-2442 [employer]. All rights reserved. This information is not intended as a substitute for professional medical care. Always follow your healthcare professional's instructions. * Pt Handout (on AVS) - Jessenia Neves RN - 03/16/2023 10:32 AM EDT Images from the original note were not included. 33731 Progressive Relaxation Your body needs relaxation to reduce stress and calm the qqhtn-ay-cwgsmy response. It helps to planfor about 20 [...] stressor. For example, let the answering machine corn picker if a constantly ringing phone is a stressor. Accept a stressor you can?t change, like a job loss, by knowing that your feelings are normal. Adapt to some stressors. For example, when starting a new exercise program, instead of focusing on how hard it will be, think how good you will feel. Last Reviewed Date: 12/30/202119992987-3626 The Doctor [employer]. All rights reserved. This information is not intended as a substitute for professional medical care. Always follow your healthcare professional's instructions. * Pt Handout (on AVS) - Jessenia Neves RN - 03/16/2023 10:30 AM EDT [id number] Overview of Sleep Disorders Facts about sleep [...] is certified in sleep medicine by the [place] Board ofSu.s. [facility]. Talk with your healthcare provider about finding a sleep disorder program. Last Reviewed Date: 10/01/202219992734-3259 The Doctor [employer]. All rights reserved. This information is not intended as a substitute for professional medical care. Always follow your healthcare professional's instructions. * Pt Handout (on AVS) - Jessenia Neves RN - 03/16/2023 10:29 AM EDT Images from the original note were not included. 93407 5 Steps for Eating Healthier Changing the [...] size of your fist. Last Reviewed Date: 08/31/202219998153-7325 [employer]. All rights reserved. This information is not intended as a substitute for professional medical care. Always follow your healthcare professional's instructions. documented in this encounter Plan of Treatment Upcoming Encounters Date Type Specialty Care Team Description 03/30/2023 Telemedicine [facility] Denise Do PA-C [address] [facility] [place] [address] Marlen Strange [facility] Emergency Detail Driver [address] [place] [address] [place] [address] 04/09/2023 Home Visit [facility] Amy Zaragoza RN [address] [place] [address] 05/01/2023 Imaging Radiology 06/07/2023 Office Visit Family Medicine Rhys Humphrey MD [address] [place] [address] [place] [address] 06/21/2023 Office Visit Cardiology Mi Neil PA-C [address] [place] [address] 09/17/2023 Office Visit Dermatology Marycruz Almazan PA-C [address] [place] [address] [place] [address] 03/18/2024 Nurse Only Ancillary Stanton Nurse Annual Wellness [address] [place] [address] [place] [address] Scheduled Orders Name Type Priority Associated Diagnoses [...] D LEVEL ONCE IN A LIFETIME-USE SMARTSET# [id number] Completed 06/29/2020, 03/16/2015 Influenza Vaccine (FLU shot) [...] GOLD 2017 classification ([facility]) Dyslipidemia, goal LDL below 70 Other and [...] Documents on File Type Date Recorded Patient 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 Expl 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 POLST 10/15/2019 3:17 PM POLST POLST 03/05/2019 POLST FORM Advance Directives and Living Will 01/27/2013 LIVING WILL Advance Directives and Living Will 01/27/2013 LIVING WILL Power of Sheet Metal Installer 01/27/2013 POWER OF A TTORNEY Power of Sheet Metal Installer 01/27/2013 POWER OF A TTORNEY Healthcare Agents on File Name Relationship Healthcare Agent Relationship Communication Cydney Benito Other - (no specific identity) Second Alternate Health Care Agent Anyi More Adult Child Health Care Roberth r of Sheet Metal Installer Care Teams Hedis Review Nurse Relationship Specialty Start Date End Date Rhys Humphrey MD [address] [place] [address] [place] [address] PCP - General Family Medicine 06/09/21 documented as of this encounter
--- OUTSIDE RECORDS SUMMARY | 2023-08-14 23:34 | External Medical Summary | Summary of Care ---
Author Name Unknown Organization [facility] Address [address] [place] [address] Phone [phone] Care Team Providers Care Sewing Machine Operator Zipper Name Role Phone Rhys Humphrey MD Primary Care Provide r Reason for Visit * Reason Comments Re-Check Encounter Details Date Type Department Care Team Description 03/16/2023 Office Visit Family Medicine [address] [place] [address] Rhys Humphrey MD [address] [place] [address] [place] [address] Pain in both lower extremities*; Peripheral polyneuropathy; Vertigo; Chronic left shoulder pain Allergies Active Allergy Reactions Severity Noted Date [...] Each 0 0 Active Nebulizers (NEBULIZER COMPRESSOR) MISCIndications:CO PD, 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 Use as directed. 1 Each 1 0 Active Iron 325 (65 Fe) MG Oral Tablet Take by mouth. 0 Active Cranberry 500 MG Oral Capsule Take 1 Capsule by mouth in the morning and 1 Capsule before bedtime. 50 Cap 0 1 Active Calcium-Magnesium- Zinc 333-133-5 MG Oral Tablet Take by mouth. 0 Active Famotidine 20 MG Oral Tablet (Pepcid) Take 1 Tab by mouth 2 times a day as needed for Heartburn. 180 Tab 3 1 Active Additional Information Patient taking differently:20 mg Oral BID PRN, Heartburn,Indications: heartburn, Reported on 10/30/2022 Furosemide 40 MG Oral Tablet (Lasix)Indications :fluid Take by mouth 1 Tablet in the morning. May take an additional tablet as needed for weight gain or shortness of breath.. 120 Tablet 3 2 Active Losartan Potassium 50 MG Oral Tablet (Cozaar)Indication s:HTN, goal below 140/90 TAKE TWO TABLETS BY MOUTH EVERY DAY 180 Tablet 3 2 Active Anoro Ellipta 62.5-25 MCG/INH Inhalation Aerosol Powder Breath Activated (umeclidinium-mikey nterol)Indications :COPD, moderate (HCC),COPD, group D, by GOLD 2017 [...] 0 Active Fluticasone Propionate 50 MCG/ACT Nasal SuspensionIndicati ons:Dysfunction of both eustachian tubes Administer 2 Sprays into each nostril in the morning. 16 g 3 3 Active Loratadine 10 MG Oral Tablet (Claritin)Indicati ons:Dysfunction of both eustachian tubes Take 1 Tablet by mouth in the morning. For nasal congestion and ear pressure. 30 Tablet 1 3 Active Atorvastatin Calcium 40 MG Oral Tablet (Lipitor)Indicatio ns:Dyslipidemia, goal LDL below 100 TAKE ONE TABLET BY MOUTH EVERY DAY 90 Tablet 1 3 Active Clopidogrel Bisulfate 75 MG Oral Tablet (pLAVix)Indication s:TIA (transient ischemic attack) TAKE ONE TABLET BY MOUTH EVERY DAY 90 Tablet 1 3 Active Docusate Sodium 100 MG Oral Capsule (Colace) Take 2 Capsules by mouth in the morning. 0 Active Albuterol Sulfate HFA 108 (90 Base) MCG/ACT Inhalation Aerosol SolutionIndication s:COPD, moderate ([facility]) Inhale 2 Puffs by mouth every 4 hours as needed for Cough, Shortness of Breath or Wheezing. 18 g 5 3 Active Montelukast Sodium 10 MG Oral Tablet (Singulair)Indicat ions:Moderate chronic obstructive pulmonary disease (HCC) TAKE ONE TABLET BY MOUTH EVERY DAY 90 Tablet 3 3 Active Pantoprazole Sodium 40 MG Oral Tablet Delayed Release (Protonix) TAKE ONE TABLET EVERY DAY 90 Tablet 3 3 Active Premarin 0.625 MG/GM Vaginal Cream (Estrogens Conjugated)Indicat ions:Vaginal irritation Administer 0.5 g into the vagina at bedtime on Sunday and Sunday only. 42.5 g 1 3 Active Additional Information Patient not taking.Reported on 02/13/2023 Ipratropium-Albute rol 0.5-2.5 (3) MG/3ML Inhalation Solution (Duoneb)Indication s:COPD, group D, by GOLD 2017 classification ([facility]) Inhale 3 mL via nebulizer every 6 hours as needed for Shortness of Breath or Wheezing. 360 mL 0 3 Active Ramelteon 8 MG Oral Tablet (Rozerem)Indicatio ns:Insomnia, unspecified type TAKE ONE TABLET BY MOUTH AT BEDTIME 30 Tablet 3 3 Active Meclizine HCl 12.5 MG Oral Tablet (Antivert)Indicati ons:Vertigo Take 1 Tablet by mouth 3 times a day as needed for Dizziness. 30 Tablet 0 3 Active Gabapentin 300 MG Oral Capsule (Neurontin)Indicat ions:Peripheral polyneuropathy,Mark n in both lower extremities Take 3 Capsules by mouth every night at bedtime. 120 Capsule 3 3 Active Diclofenac Sodium 1 % External Gel (Voltaren)Indicati ons:pain Apply 2 g topically to affected area daily as needed for Pain. Apply to L shoulder 350 g 2 3 Active Diclofenac Sodium 1 % External Gel (Voltaren)Indicati ons:Chronic left shoulder pain Apply topically to affected area 2 g in the morning. Apply to L shoulder. 350 g 1 2 023 Discontinued(Re fill) Clobetasol Propionate 0.05 % External Ointment (Temovate)Indicati ons:Lichen sclerosus et atrophicus Apply 2x daily to isolated area on left labia that is bothersome until resolved, continue to use Vaseline regularly over entire vagina 60 g 0 2 023 Discontinued(Me dication List Clean Up) Meclizine HCl 12.5 MG Oral Tablet (Antivert) Take 1 Tablet by mouth 3 times a day as needed for Dizziness. 30 Tablet 1 3 023 Discontinued(Re fill) Melatonin 3 MG Oral Capsule Take 1 Capsule by mouth at bedtime. 0 023 Discontinued(Me dication List Clean Up) Gabapentin 300 MG Oral Capsule (Neurontin)Indicat ions:Peripheral polyneuropathy TAKE ONE CAPSULE BY MOUTH IN THE MORNING and AT NOON and TAKE two CAPSULES AT BEDTIME 120 Capsule 3 3 023 Discontinued documented as of this encounter (statuses [...] (Prevnar) 03/16/2015 Pneumococcal Conjugate Vacci ne, 20-valent ([id number]) 07/21/2022 Pneumococcal Polysaccharide PPV23 (Pneumovax) 03/05/2019,07/18/2007 Seasonal [...] Time Taken Comments Blood Pressure 124/52 03/16/2023 8:39 AM EDT Pulse 93 03/16/2023 8:39 AM EDT Temperature 36.6 C (97.8 F) 03/16/2023 8:39 AM ED T Respiratory Rate 16 03/16/2023 8:39 AM EDT Oxygen Saturation 93% 03/16/2023 8:39 AM EDT Inhaled Oxygen Concentration - - Weight 66.6 kg (146 lb 12.8 oz) 03/16/2023 8:39 AM EDT Height - - Body Mass Index 25 02/01/2023 2:40 PM EDT documented in this encounter Progress Notes * Rhys Humphrey MD - 03/16/2023 9:02 AM EDT Subjective: HPI: Keisha Linares is a 82 year old female with hx of TIA (03/2021),b/lcarotid endarterectomyand L TCAR,HTN, COPD, prediabetes, CKDII-III, diastolicheartfailure, GERD,ISELA on CPAP,hx of follicular lymphoma, Insomnia, depression, RLS,Mild Aortic valve stenosis,and Peripheral neuropathyseenfor Still having intermittent vertigo symptoms Every midnight (3 am) pt experience b/l leg pain - does not take anything at that time - pt experience burning sensation with pain - pt goes to bed at 11 pm --- takes gabapentin 30 mins prior to taking the med - denied any SE from gabapentin - per pt she does not experience any numbness/tingling in the legs/feet in the AM or afternoon Patient Active Problem List Diagnosis Code History [...] TABS Take 1 Tab by mouth daily. Iron 325 (65 Fe) MG Oral Tablet Take by mouth. Cranberry 500 MG Oral Capsule Take 1 Capsule by mouth in the morning and 1 Capsule before bedtime. 50 Cap Drvzgcw-Ayxpgxgyh-Mwrz 333-133-5 MG Oral Tablet Take by mouth. [...] 2 Capsules by mouth in the morning. Melatonin 3 MG Oral Capsule Take 1 Capsule by mouth at bedtime. Albuterol Sulfate HFA 108 (90 Base) MCG/ACT [...] mouth every night at bedtime. 120Capsule 3 Diclofenac Sodium 1 % External Gel (Voltaren) Apply 2 g topically to affected area daily as needed for Pain. Apply to L shoulder 350 g 2 oxygen GAS 2.5 LPM bled through cpap. 1 Each 0 DIURETIC TITRATION PLAN If no improvement on day 3, contact heart failure managing provider. 1 Each 0 Nebulizers (NEBULIZER COMPRESSOR) MISC Inhale via nebulizer. Use as directed. 1 Each 1 Premarin 0.625 MG/GM Vaginal Cream (Estrogens Conjugated) Administer 0.5 g into the vagina at bedtime on Sunday and Sunday only. (Patient not taking: Reported on 02/13/2023) 42.5 g 1 No current facility-administered medications for this visit. Past Medical History: Diagnosis Date Acute cystitis 12/23/13 >100,000 E coli, pansensitive Acute cystitis 01/28/14 10-100,000 col E coli, pansensitive Allergic rhinitis due to other allergen Asthma, [...] polyps, internal hemorrhoids COLONOSCOPY, DIAGNOSTIC (RECTUM) 07/31/2017 diverticulosis/[facility] COLONOSCOPY, DIAGNOSTIC (RECTUM) 09/09/2021 diverticulosis / [facility] COLORECTAL CANCER SCREEN; NOT AT RISK 11/[address] ABDOMEN/PELVIS 04/02/2013 mesenteric lymphadenopathy concerning for lymphoma DIGITAL RECTAL EXAM,ANNUAL 03/2000 EGD, FLEXIBLE, DIAGNOSTIC 03/03/2013 mild gastritis EGD, FLEXIBLE, DIAGNOSTIC 07/31/2017 normal bx, hiatal hernia/[facility] EGD, FLEXIBLE, DIAGNOSTIC 10/14/2021 reflux esophagitis, hiatal hernia / [facility] EGD, FLEXIBLE, DIAGNOSTIC 09/09/2021 hiatal hernia / [facility] HEMORRHOIDECTOMY, SIMPLE, 1 COLUMN 1989 Hemorrhoidectomy,Int/Ext,Simple MAMMOGRAM SCREENING-BILATERAL 03/2000 SIGMOIDOSCOPY, DIAGNOSTIC 1996 SPIROMETRY B/A BRONCHODILATOR 01/06/2005 obstructive airway disease THROMBOENDARECTOMY W/PATCH,NECK INCISION Right carotid endarterectomy done in [place] TOTAL ABD HYSTERECTOMY W/WO REMOVAL OF TUBE(S) 1974 non cancer reasons TOTAL HIP REPLACEMENT & PROSTHESIS 08/19/2008 [facility] Review of patient's allergies indicates: Allergen [...] Use Never User Vaping/E-Cigarette Substances Vaping/E-Cigarette Devices RECENT LABS: Results for orders placed or performed [...] results can be found in Results Review. ROS: -Per HPI OBJECTIVE: BP 124/52 | Pulse 93 | Temp 36.6 C (97.8 F) | Resp 16 | Wt 66.6 kg (146 lb 12.8 oz) | SpO2 93% | BMI 25.00 kg/m | BSA 1.74 m PHYSICAL EXAM: Vitals are reviewed General:. NAD, well developed HEENT:. Normal Conjunctiva, EOMI MSK:. Normal gait Psych:. AAOx3, normal affect ASSESSMENT/PLAN: Changed pt's gabapentin to 900mg qhs (no dosing for AM and afternoon) - recommended prn tylenol at pm - warm compress to legs prior to going to bed - call the clinic if any SE from gabapentin Pain in both lower extremities (Primary) Peripheral polyneuropathy Vertigo - Meclizine HCl 12.5 MG Oral Tablet (Antivert); Take 1 Tablet by mouth 3 times a day as needed for Dizziness. Chronic left shoulder pain - Diclofenac Sodium 1 % External Gel (Voltaren); Apply 2 g topically to affected area daily as needed for Pain. Apply to L shoulder Follow Up: Return in 3 months (on 06/16/2023) for please schedule an AWV. | For: please schedule an AWV Rhys Humphrey MD Family medicine, [address] [address] documented in this encounter Nursing Notes * Yanely Zhong LPN - 03/16/2023 8:40 AM EDT 3 month return. States that she gets pain in both of her legs from her knees down when she is in bed at night documented in this encounter Plan of Treatment Upcoming Encounters Date Type Specialty Care Team Description 03/16/2023 Nurse Only Ancillary Stanton Nurse Annual Wellness [address] [place] [address] [place] [address] Adult Annual Wellness Visit, Initial Visit 03/30/2023 Telemedicine [facility] Denise Do PA-C [address] [place] [address] Marlen Strange, Community Health Sales Agent Protective Service [address] [place] [address] [place] [address] 04/09/2023 Home Visit [facility] Amy Zaragoza RN [address] [place] [address] 06/07/2023 Office Visit Family Medicine Rhys Humphrey MD [address] [facility] [place] [address] 06/21/2023 Office Visit Cardiology Mi Neil PA-C [address] [place] [address] 09/17/2023 Office Visit Dermatology Marycruz Almazan PA-C [address] [facility] [place] [address] Health Maintenance Due Date [...] D LEVEL ONCE IN A LIFETIME-USE SMARTSET# [id number] Completed 06/29/2020, 03/16/2015 Influenza Vaccine (FLU shot) [...] as of this encounter Visit Diagnoses Diagnosis Pain in both lower extremities- Primary Peripheral polyneuropathy Unspecified hereditary and idiopathic peripheral neuropathy Vertigo Dizziness and giddiness Chronic left shoulder pain Pain in joint, shoulder region Risk and functional assessment Screening for unspecified condition documented in this encounter Advance Directives Documents on File Type Date Recorded Patient Integrated Marketing Manager Expl anation POLST 10/15/2019 3:17 PM POLST POLST 03/05/2019 POLST FORM Advance Directives and Living Will 01/27/2013 LIVING WILL Advance Directives and Living Will 01/27/2013 LIVING WILL Power of Behavioral Analyst 01/27/2013 POWER OF A TTORNEY Power of Behavioral Analyst 01/27/2013 POWER OF A TTORNEY Healthcare Agents on File Name Relationship Healthcare Agent Relationship Communication Cydney Benito Other - (no specific identity) Second Alternate Health Care Agent Anyi More Adult Child Health Care Roberth r of Behavioral Analyst Care Teams Sewing Machine Operator Zipper Relationship Specialty Start Date End Date Rhys Humphrey MD [address] [place] [address] [place] [address] PCP - General Family Medicine 06/09/21 documented as of this encounter
--- OUTSIDE RECORDS SUMMARY | 2023-08-14 23:34 | External Medical Summary | Summary of Care ---
Author Name Unknown Organization [facility] Address [address] [place] [address] Phone [phone] Care Team Providers Care Souvenir Assembler Name Role Phone Ollie Gonzalez MD Primary Care Provide r Reason for Visit * Reason Comments Re-Check Encounter Details Date Type Department Care Team Description 03/16/2023 Office Visit Family Medicine [address] [place] [address] Ollie Gonzalez MD [address] [place] [address] [place] [address] Pain in both lower [...] Base) MCG/ACT Inhalation Aerosol SolutionIndication s:COPD, moderate ([facility]) Inhale 2 Puffs by mouth every 4 [...] Sunday only. 42.5 g 1 3 Active Ipratropium-Albute rol 0.5-2.5 (3) MG/3ML Inhalation Solution (Duoneb)Indication s:COPD, group D, by GOLD 2017 classification ([facility]) Inhale 3 mL via nebulizer every 6 [...] at bedtime. 90 Capsule 3 3 Active Diclofenac Sodium 1 [...] BEDTIME 120 Capsule 3 3 023 Discontinued Gabapentin 300 MG Oral Capsule (Neurontin)Indicat ions:Peripheral polyneuropathy,Mark n in both lower extremities Take 3 Capsules by mouth every night at bedtime. 120 Capsule 3 3 023 Discontinued(Re fill) documented as of this encounter (statuses as [...] mRNA, LNP-s, No Pre serve, 2-Dose Series (KloudCatch) 07/11/2021,11/14/2020,10/24/2020 Covid-19, Mrna, Lnp-s, Pf, B ivalent, 30 Mcg, IM, 12 yrs and above (Pfizer) 07/21/2022 Pneumococcal Conjugate Vacc, 13 Valent (Prevnar) 03/16/2015 Pneumococcal Conjugate Vacci ne, 20-valent ([id number]) 07/21/2022 Pneumococcal Polysaccharide PPV23 (Pneumovax) 03/05/2019,07/18/2007 Seasonal [...] documented in this encounter Progress Notes * Ollie Gonzalez MD - 03/16/2023 9:02 AM EDT Subjective: [...] and 1 Capsule before bedtime. 50 Cap Kbccgnb-Gyvqctmgy-Pzql 333-133-5 MG Oral Tablet Take by mouth. [...] polyps, internal hemorrhoids COLONOSCOPY, DIAGNOSTIC (RECTUM) 07/31/2017 diverticulosis/[facility] COLONOSCOPY, DIAGNOSTIC (RECTUM) 09/09/2021 diverticulosis / [facility] COLORECTAL CANCER SCREEN; NOT AT RISK 11/[address] ABDOMEN/PELVIS 04/02/2013 mesenteric lymphadenopathy concerning for lymphoma DIGITAL RECTAL EXAM,ANNUAL 03/2000 EGD, FLEXIBLE, DIAGNOSTIC 03/03/2013 mild gastritis EGD, FLEXIBLE, DIAGNOSTIC 07/31/2017 normal bx, hiatal hernia/[facility] EGD, FLEXIBLE, DIAGNOSTIC 10/14/2021 reflux esophagitis, hiatal hernia / [facility] EGD, FLEXIBLE, DIAGNOSTIC 09/09/2021 hiatal hernia / [facility] HEMORRHOIDECTOMY, SIMPLE, 1 COLUMN 1989 Hemorrhoidectomy,Int/Ext,Simple MAMMOGRAM SCREENING-BILATERAL 03/2000 SIGMOIDOSCOPY, DIAGNOSTIC 1996 SPIROMETRY B/A BRONCHODILATOR 01/06/2005 obstructive airway disease THROMBOENDARECTOMY W/PATCH,NECK INCISION Right carotid endarterectomy done in [place] TOTAL ABD HYSTERECTOMY W/WO REMOVAL OF TUBE(S) 1973 non cancer reasons TOTAL HIP REPLACEMENT & PROSTHESIS 08/19/2008 left-dr ilya gamboa Review of patient's allergies indicates: Allergen Reactions Adhesive Tape Other (Please comment) and Hives Caused welts Ginger Chauncey Perry [Dextromethorphan-Guaifenesin] Neuro complications (Please comment) Feels [...] AWV. | For: please schedule an AWV [place]llie [place] [address] documented in this encounter Nursing Notes * Yanely Zhong LPN - 03/16/2023 8:40 AM EDT 3 month return. States that she gets pain in both of her legs from her knees down when she is in bed at night documented in this encounter Miscellaneous Notes * Addendum Note - Ollie Gonzalez MD - 03/16/2023 11:09 AM EDTAddended by: OLLIE GONZALEZ on: 03/16/2023 11:09 AM Modules accepted: Orders documented in this encounter Plan of Treatment Upcoming Encounters Date Type Specialty Care Team Description 03/30/2023 Telemedicine [facility] Denise Do PA-C [address] [facility] [place] [address] Marlen Strange, Community Health Affirmative Action Officer [address] [place] [address] [place] [address] 04/09/2023 Home Visit [facility] Amy Zaragoza, RAYNA [address] [place] [address] 05/01/2023 Imaging Radiology 06/07/2023 Office Visit Family Medicine Ollie Gonzalez MD [address] [place] [address] [place] [address] 06/21/2023 Office Visit Cardiology Mi Neil PA-C [address] [place] [address] 09/17/2023 Office Visit Dermatology Marycruz Almazan PA-C [address] [place] [address] [place] [address] 03/18/2024 Nurse Only Ancillary Stanton, Nurse Annual Wellness [address] [place] [address] [place] [address] Health Maintenance Due Date Last Done Comments Alpha-1 Antitrypsin 1958 DXA Scan 06/11/2020 06/11/2018, 03/02, 02/16/2012, Additional history exists *BISPHONATE OR OTHER ACCEPTABLE MEDICATION NEEDED FOR OSTEOPOROSIS (REFER TO SMARTSET #1146) 01/23/2021 Depression Screening, Annual for Pts 12 and Over 01/18/2022 03/16/2023 GFR 09/26/2023 09/26/2022, 04/01, 03/22/2022, Additional history exists O2 ASSESSMENT COMPLETED IN PAST YEAR FOR COPD 02/24/2024 03/16/2023 Albumin/Creatinine Ratio 04/28/2025 04/28/2022 DTaP,Tdap,and Td Vaccines (3 - Td or Tdap) 09/17/2029 09/17/2019, 08/10/2011, 10/01/2001 Zoster Vaccines Completed 04/25/2020, 08/31, 07/22/2012 VITAMIN D LEVEL ONCE IN A LIFETIME-USE SMARTSET# [id number] Completed 06/29/2020, 03/16/2015 Influenza Vaccine (FLU shot) [...] shoulder pain Pain in joint, shoulder region documented in this encounter Advance Directives Documents on File Type Date Recorded Patient Rear Admiral Expl anation POLST 10/15/2019 3:17 PM POLST POLST 03/05/2019 POLST FORM Advance Directives and Living Will 01/27/2013 LIVING WILL Advance Directives and Living Will 01/27/2013 LIVING WILL Power of Hand Inserter Operator 01/27/2013 POWER OF A TTORNEY Power of Hand Inserter Operator 01/27/2013 POWER OF A TTORNEY Healthcare Agents on File Name Relationship Healthcare Agent Relationship Communication Cydney Benito Other - (no specific identity) Second Alternate Health Care Agent Anyi More Adult Child Health Care Roberth r of Hand Inserter Operator Care Teams Souvenir Assembler Relationship Specialty Start Date End Date Ollie Gonzalez MD [address] [place] [address] [place] [address] PCP - General Family Medicine 06/09/21 documented as of this encounter
--- OUTSIDE RECORDS SUMMARY | 2023-08-14 23:35 | External Medical Summary | Summary of Care ---
Author Name Unknown Organization [facility] Address [address] [place] [address] Phone [phone] Care Team Providers Care Import Specialist Name Role Phone Rhys Humphrey MD Primary Care Provide r Reason for Visit * Reason Onset Date Comments [facility]: Maintenance 03/02/2023 Encounter Details Date Type Department Care Team Description 03/02/2023 Telephone [facility], [place] [address] [place] [address] [facility], Nurse [facility] [address] [place] [address] [facility]: Maintenance Allergies Active Allergy Reactions Severity Noted Date Comments Adhesive Tape Other (Please comment),Hives High 09/29/2008 Caused welts Dextromethorphan-Gua ifenesin Neuro complications (Please comment) Medium 12/23/2021 Feels lightheaded/"foggy" documented as of this encounter (statuses as of 03/02/2023) Medications Medication Sig Dispensed Refills Start Date [...] before bedtime. 50 Cap 0 01/18/2021 Active Rbhmdce-Ankmyviyn-Un nc 333-133-5 MG Oral Tablet Take by [...] MCG/INH Inhalation Aerosol Powder Breath Activated (umeclidinium-vilant ed)Indications:HEALTH INFORMATION ADMINISTRATOR D, moderate (HCC),COPD, group D, by GOLD [...] as of this encounter (statuses as of 03/02/2023) Active Problems Problem Noted Date Acute serous [...] the couch") Medication Regimen o Other: anoro, arnardha, sunni, chandler Self-Management plan o Prednisone 40mg [...] as of this encounter (statuses as of 03/02/2023) Resolved Problems Problem Noted Date Resolved Date [...] as of this encounter (statuses as of 03/02/2023) Immunizations Name Administration Dates Next Due COVID-19 mRNA, LNP-s, No Pre serve, 2-Dose Series (MyLuvs) 07/11/2021,11/14/2020,10/24/2020 Covid-19, Mrna, Lnp-s, Pf, B ivalent, 30 Mcg, IM, 12 yrs and above (MyLuvs) 07/21/2022 Pneumococcal Conjugate Vacc, 13 Valent (Prevnar) 03/16/2015 Pneumococcal Conjugate Vacci ne, 20-valent ([id number]) 07/21/2022 Pneumococcal Polysaccharide PPV23 (Pneumovax) 03/05/2019,07/18/2007 Seasonal [...] Telephone Encounter - Denise Pittman LPN - 03/02/2023 8:16 AM EDT Images from the original note were not included. [facility] ([facility]) Weight Trigger AMC Data: Baseline Weight: 10lb below 172 and 2lb above 187 Trigger Weight: 164.6 lbs; weight increased 5.6 lbs in 5 days. Denies any issues of edema SOB or chest pain, headaches, palpitations, last BM this morning, educated on 2gm sodium and 64 oz fluid restriction Routing to care team for recommendations Symptom review: Increased or worsening SOB from baseline: No Increased or worsening cough from baseline: No Orthopnea: No Increased or worsening edema in BLE/abdominal fullness: No Reviewed current diuretic use: Name of Medication: Furosemide Dose: 40mg Frequency: daily Patient has a DTP (Diuretic Titration Protocol (DTP) ordered: Yes: DTP Name of Medications: furosemide DTP Dose: 40mg DTP Frequency: As needed Recent use within the past 2 weeks: No Diet review: Patient has had any foods high in sodium: No Fluid review: Fluid restriction: Yes, adherent to restriction: Yes Plan/Treatment: Route to RMC (Remote Medical Coordinator) Education Review: Reviewed HF symptom monitoring: -Weigh self daily in am, post-void and record -Do not add salt to food, avoid foods high in sodium -Limit fluids to 2 liters per day -Report the following: ->2 lb weight gain in one day or 5 lbs in a week to PCP -increased edema in feet, abdomen or hands -increased SOB and cough, especially if at night -increased fatigue or vertigo Call back instructions discussed with patient. documented in this encounter Plan of Treatment Upcoming Encounters Date Type Specialty Care Team Description 03/16/2023 Office Visit Family Medicine Rhys Humphrey MD [address] [place] [address] [place] [address] 03/22/2023 Home Visit [facility] Cinthia Murphy PA-C [address] [place] [address] 04/09/2023 Home Visit [facility] Amy Zaragoza RN [address] [place] [address] 06/21/2023 Office Visit Cardiology Mi Neil PA-C [address] [place] [address] 09/17/2023 Office Visit Dermatology Marycruz Almazan PA-C [address] [place] [address] [place] [address] Health Maintenance Due Date Last Done Comments [...] D LEVEL ONCE IN A LIFETIME-USE SMARTSET# [id number] Completed 06/29/2020, 03/16/2015 Influenza Vaccine (FLU shot) [...] Documents on File Type Date Recorded Patient Outside Barrel Lathe Operator Expl anation POLST 10/15/2019 3:17 PM POLST POLST 03/05/2019 POLST FORM Advance Directives and Living Will 01/27/2013 LIVING WILL Advance Directives and Living Will 01/27/2013 LIVING WILL Power of Paper Cone Machine Operator 01/27/2013 POWER OF A TTORNEY Power of Paper Cone Machine Operator 01/27/2013 POWER OF A TTORNEY Healthcare Agents on File Name Relationship Healthcare Agent Relationship Communication Cydney Benito Other - (no specific identity) Second Alternate Health Care Agent Anyi More Adult Child Health Care Roberth r of Paper Cone Machine Operator Care Teams Import Specialist Relationship Specialty Start Date End Date Rhys Humphrey MD [address] [place] [address] [place] [address] PCP - General Family Medicine 06/09/21 documented as of this encounter
--- OUTSIDE RECORDS SUMMARY | 2023-08-14 23:35 | External Medical Summary | Summary of Care ---
Author Name Unknown Organization [facility] Address [address] [place] [address] Phone [phone] Care Team Providers Care Photo Optics Technician Name Role Phone Rhys Humphrey MD Primary Care Provide r Reason for Visit * Reason Onset Date Comments [facility]: Maintenance 03/01/2023 Encounter Details Date Type Department Care Team Description 03/01/2023 Telephone [facility], [facility] [address] [facility] [place] [phone] [employer], Nurse [facility] [address] [facility] [place] [address] [facility]: Maintenance Allergies Active Allergy Reactions Severity Noted Date Comments Adhesive Tape Other (Please comment),Hives High 09/29/2008 Caused welts Dextromethorphan-Gua ifenesin Neuro complications (Please comment) Medium 12/23/2021 Feels lightheaded/"foggy" documented as of this encounter (statuses as of 03/01/2023) Medications Medication Sig Dispensed Refills Start Date [...] before bedtime. 50 Cap 0 01/18/2021 Active Linyxun-Vbxucdgiz-Xw nc 333-133-5 MG Oral Tablet Take by [...] MCG/INH Inhalation Aerosol Powder Breath Activated (umeclidinium-vilant ed)Indications:FISH WARDEN D, moderate (HCC),COPD, group D, by GOLD 2017 classification (HCC) Inhale by mouth 1 Puff in the morning. 30 Each 08/02/2022 Active Fluticasone Furoate 100 MCG/ACT Inhalation [...] as of this encounter (statuses as of 03/01/2023) Active Problems Problem Noted Date Acute serous [...] as of this encounter (statuses as of 03/01/2023) Resolved Problems Problem Noted Date Resolved Date [...] as of this encounter (statuses as of 03/01/2023) Immunizations Name Administration Dates Next Due COVID-19 mRNA, LNP-s, No Pre serve, 2-Dose Series (Pharmly) 07/11/2021,11/14/2020,10/24/2020 Covid-19, Mrna, Lnp-s, Pf, B ivalent, 30 Mcg, IM, 12 yrs and above (Pharmly) 07/21/2022 Pneumococcal Conjugate Vacc, 13 Valent (Prevnar) 03/16/2015 Pneumococcal Conjugate Vacci ne, 20-valent ([id number]) 07/21/2022 Pneumococcal Polysaccharide PPV23 (Pneumovax) 03/05/2019,07/18/2007 Seasonal [...] Telephone Encounter - Kyra Gallagher LPN - 03/01/2023 11:12 AM EDT [facility] Telephonic Nurse Follow-Up Call [facility] Subprogram: Focused Care Management (3-9 months) [...] LEFT VENTRICULAR EJECTION FRACTION Remote Patient Monitoring: [facility] Blood Pressure Cuff: 115/44, HR 97 Oxygen Needs: NO supplemental oxygen needs identified DME Needs: NO DME needs identified Medications: No medication or dose adjustments made during acute episode Subjective: Condition Status: No change in symptoms Current Concerns: Call to patient for BP 115/44, HR 97.Got VM and requested a call back to [facility] for any symptoms. Disposition: [facility] Future Visits Scheduled: Future Appointments-next 60 days Date/Time Provider Specialty Dept Phone 03/16/2023 9:00 AM (Arrive by 8:45 AM) Rhys Humphrey MD Family Medicine [phone] 03/22/2023 8:30 AM Cinthia Murphy PA-C [facility] [phone] 04/09/2023 10:00 AM Amy Zaragoza RN [facility] [phone] 06/21/2023 3:00 PM (Arrive by 2:45 PM) Mi Neil PA-C Cardiology [phone] 09/17/2023 9:40 AM (Arrive by 9:25 AM) Marycruz Almazan PA-C Dermatology [phone] Kyra Gallagher LPN documented in this encounter Plan of Treatment Upcoming Encounters Date Type Specialty Care Team Description 03/16/2023 Office Visit Family Medicine Rhys Humphrey MD [address] [place] [address] [place] [address] 03/22/2023 Home Visit [facility] Cinthia Murphy PA-C [address] [place] [address] 04/09/2023 Home Visit [facility] Amy Zaragoza RN [address] [place] [address] 06/21/2023 Office Visit Cardiology Mi Neil PA-C [address] [place] [address] 09/17/2023 Office Visit Dermatology Marycruz Almazan PA-C [address] [place] [address] [place] [address] Health Maintenance Due Date Last Done Comments [...] D LEVEL ONCE IN A LIFETIME-USE SMARTSET# [id number] Completed 06/29/2020, 03/16/2015 Influenza Vaccine (FLU shot) [...] Documents on File Type Date Recorded Patient Actuarial Science Teacher Expl anation POLST 10/15/2019 3:17 PM POLST POLST 03/05/2019 POLST FORM Advance Directives and Living Will 01/27/2013 LIVING WILL Advance Directives and Living Will 01/27/2013 LIVING WILL Power of Seed Sales Manager 01/27/2013 POWER OF A TTORNEY Power of Seed Sales Manager 01/27/2013 POWER OF A TTORNEY Healthcare Agents on File Name Relationship Healthcare Agent Relationship Communication Cydney Benito Other - (no specific identity) Second Alternate Health Care Agent Anyi More Adult Child Health Care Roberth r of Seed Sales Manager Care Teams Photo Optics Technician Relationship Specialty Start Date End Date Rhys Humphrey MD [address] [place] [address] [place] [address] PCP - General Family Medicine 06/09/21 documented as of this encounter
--- OUTSIDE RECORDS SUMMARY | 2023-08-14 23:35 | External Medical Summary | Summary of Care ---
Author Name Unknown Organization [facility] Address [address] [place] [address] Phone [phone] Care Team Providers Care Underwriting Consultant Name Role Phone Rhys Humphrey MD Primary Care Provide r Reason for Visit * Reason Onset Date Comments Follow Up 02/24/2023 Encounter Details Date Type Department Care Team Description 02/24/2023 Scheduled Telephone [facility], [facility] [address] [place] [address] [facility], Nurse [facility] [address] [place] [address] Allergies Active Allergy Reactions Severity Noted Date Comments Adhesive Tape Other (Please comment),Hives High 09/29/2008 Caused welts Dextromethorphan-Gua ifenesin Neuro complications (Please comment) Medium 12/23/2021 Feels lightheaded/"foggy" documented as of this encounter (statuses as of 02/24/2023) Medications Medication Sig Dispensed Refills Start Date [...] before bedtime. 50 Cap 0 01/18/2021 Active Ywkxpvf-Vgqjxioel-Re nc 333-133-5 MG Oral Tablet Take by [...] MCG/INH Inhalation Aerosol Powder Breath Activated (umeclidinium-vilant ed)Indications:PLANNING LEAD D, moderate (HCC),COPD, group D, by [...] AT BEDTIME 30 Tablet 3 02/21/2023 Active Doxycycline Hyclate 100 MG Oral CapsuleIndications:C OPD, group D, by GOLD 2017 classification ([facility]),COPD exacerbation ([facility]) Take 1 Capsule by mouth in the morning and 1 Capsule before bedtime. Do all this for 7 days. Take for 7 days. 14 Capsule 0 02/21/2023 3 Active predniSONE 20 MG Oral Tablet (Deltasone) Take 2 Tablets by mouth in the morning for 5 days. Do not start before February 23, 2023. 10 Tablet 0 02/23/2023 3 Active documented as of this encounter (statuses as of 02/24/2023) Active Problems Problem Noted Date Acute serous otitis media 01/01/2023 Nontoxic multinodular goiter 10/23/2022 RLS (restless legs syndrome) 07/07/2021 Peripheral polyneuropathy 07/07/2021 Iron deficiency anemia 06/14/2021 Last Assessment & Plan: Last hgb 11.8 09/26/22 Stable Continue iron Left carotid stenosis 03/16/2021 Last Assessment & [...] without esophagitis 10/06/2019 Last Assessment & Plan: Sx controlled on pantoprazole COPD, group D, by GOLD 2017 classificati on 09/08/2019 Overview: Per COPD GOLD Classification Last Assessment & Plan: Stable. Using O2 at night Continue singulair, Ellipta, albuterol prn Major depression in remission 03/05/2019 Ground glass opacity present on imaging of lung 01/08/2019 Hypertensive heart disease with chronic diastolic congestive heart failure 09/27/2018 Last Assessment & Plan: Euvolemic today. BP stable Continue lasix, losartan and metoprolol Nocturnal hypoxemia 08/23/2018 Chronic diastolic congestive heart failu re 06/24/2018 Other specified peripheral vascular dise ases 06/24/2018 History of TIA (transient ischemic attac k) 06/24/2018 History of left hip replacement 06/24/20 18 [...] per ANDREA 5/3/11 Last Assessment & Plan: Following with cards. Dyslipidemia, goal LDL below 70 01/31/20 11 [...] of inactive term ISELA (obstructive sleep apnea) documented as of this encounter (statuses as of 02/24/2023) Resolved Problems Problem Noted Date Resolved Date [...] as of this encounter (statuses as of 02/24/2023) Immunizations Name Administration Dates Next Due COVID-19 mRNA, LNP-s, No Pre serve, 2-Dose Series (Chat& (ChatAnd)) 07/11/2021,11/14/2020,10/24/2020 Covid-19, Mrna, Lnp-s, Pf, B ivalent Booster, 30 Mcg, IM, 12 yrs and above (Pfizer) 07/21/2022 Pneumococcal Conjugate Vacc, 13 Valent (Prevnar) 03/16/2015 Pneumococcal Conjugate Vacci ne, 20-valent ([id number]) 07/21/2022 Pneumococcal Polysaccharide PPV23 (Pneumovax) 03/05/2019,07/18/2007 Seasonal [...] Telephone Encounter - Sarah Vitale RN - 02/24/2023 9:02 AM EDT Phone call to patient for follow up. Reports much improvement. Spo2 94%. SOB at baseline. Continueson Doxy and prednisone. Offers no complaints. Encouraged to GAH with worsening symptoms. Voices understanding.. documented in this encounter Plan of Treatment Upcoming Encounters Date Type Specialty Care Team Description 03/16/2023 Office Visit Family Medicine Rhys Humphrey MD [address] [place] [address] [place] [address] 03/22/2023 Home Visit [facility] Cinthia Murphy PA-C [address] [place] [address] 04/09/2023 Home Visit [facility] Amy Zaragoza RN [address] [place] [address] 06/21/2023 Office Visit Cardiology Mi Neil PA-C [address] [place] [address] 09/17/2023 Office Visit Dermatology Marycruz Almazan PA-C [address] [place] [address] [place] [address] Health Maintenance Due Date Last Done Comments Alpha-1 Antitrypsin 1958 DXA Scan 06/11/2020 06/11/2018, 03/02, 02/16/2012, Additional history exists *BISPHONATE OR OTHER ACCEPTABLE MEDICATION NEEDED FOR OSTEOPOROSIS (REFER TO SMARTSET #[id number]) 01/23/2021 Depression Screening, Annual for Pts 12 and Over 01/18/2022 01/18/2021 GFR 09/26/2023 09/26/2022, 04/01, 03/22/2022, Additional history exists O2 ASSESSMENT COMPLETED IN PAST YEAR FOR COPD 02/23/2024 02/22/2023 Albumin/Creatinine Ratio 04/28/2025 04/28/2022 DTaP,Tdap,and Td Vaccines (3 - Td or Tdap) 09/17/2029 09/17/2019, 08/10/2011, 10/01/2001 Zoster Vaccines Completed 04/25/2020, 08/31, 07/22/2012 VITAMIN D LEVEL ONCE IN A LIFETIME-USE SMARTSET# [id number] Completed 06/29/2020, 03/16/2015 Influenza Vaccine (FLU shot) [...] on File Type Date Recorded Patient Financial Cost Analyst Expl anation POLST 10/15/2019 3:17 PM POLST POLST 03/05/2019 POLST FORM Advance Directives and Living Will 01/27/2013 LIVING WILL Advance Directives and Living Will 01/27/2013 LIVING WILL Power of Publications Writer 01/27/2013 POWER OF A TTORNEY Power of Publications Writer 01/27/2013 POWER OF A TTORNEY Healthcare Agents on File Name Relationship Healthcare Agent Relationship Communication Cydney Benito Other - (no specific identity) Second Alternate Health Care Agent Anyi More Adult Child Health Care Roberth r of Publications Writer Care Teams Underwriting Consultant Relationship Specialty Start Date End Date Rhys Humphrey MD [address] [place] [address] [place] [address] PCP - General Family Medicine 06/09/21 documented as of this encounter
--- OUTSIDE RECORDS SUMMARY | 2023-08-14 23:35 | External Medical Summary | Summary of Care ---
Author Name Unknown Organization [facility] Address [address] [place] [address] Phone [phone] Care Team Providers Care Senior Mechanical Project Manager Name Role Phone Rhys Humphrey MD Primary Care Provide r Reason for Visit * Reason Onset Date Comments [facility]: Maintenance 03/01/2023 Encounter Details Date Type Department Care Team Description 03/01/2023 Telephone [facility], [facility] [address] [facility] [place] [phone] [facility], Nurse [facility] [address] [facility] [place] [address] [facility]: Maintenance Allergies Active Allergy [...] before bedtime. 50 Cap 0 01/18/2021 Active Oezaefy-Jwcgzcrqp-Lh nc 333-133-5 MG Oral Tablet Take by [...] MCG/INH Inhalation Aerosol Powder Breath Activated (umeclidinium-vilant ed)Indications:CLINICAL APPLICATIONS SPECIALIST D, moderate (HCC),COPD, group D, by [...] mRNA, LNP-s, No Pre serve, 2-Dose Series ([facility] 07/11/2021,11/14/2020,10/24/2020 Covid-19, Mrna, Lnp-s, Pf, B ivalent, 30 Mcg, IM, 12 yrs and above ([facility])) 07/21/2022 Pneumococcal Conjugate Vacc, 13 Valent (Prevnar) 03/16/2015 Pneumococcal Conjugate Vacci ne, 20-valent ([id number]) 07/21/2022 Pneumococcal Polysaccharide PPV23 (Pneumovax) 03/05/2019,07/18/2007 Seasonal [...] Encounter - Kyra Gallagher LPN - 03/01/2023 1:00 PM EDT error documented in this encounter Plan of Treatment Upcoming Encounters Date Type Specialty Care Team Description 03/16/2023 Office Visit Family Medicine Sellathurai, Thiviyanath, MD [address] [place] [address] [place] [address] 03/22/2023 Home Visit [facility] Cinthia Murphy PA-C [address] [place] [address] 04/09/2023 Home Visit [facility] Amy Zaragoza, RAYNA [address] [place] [address] 06/21/2023 Office Visit Cardiology Mi Neil PA-C [address] [place] [address] 09/17/2023 Office Visit Dermatology Marycruz Almazan PA-C [address] [place] [address] [place] [address] Health Maintenance Due Date Last Done Comments [...] D LEVEL ONCE IN A LIFETIME-USE SMARTSET# [id number] Completed 06/29/2020, 03/16/2015 Influenza Vaccine (FLU shot) [...] Documents on File Type Date Recorded Patient Orchard Sprayer Expl anation POLST 10/15/2019 3:17 PM POLST POLST 03/05/2019 POLST FORM Advance Directives and Living Will 01/27/2013 LIVING WILL Advance Directives and Living Will 01/27/2013 LIVING WILL Power of Mosaic Tile Maker 01/27/2013 POWER OF A TTORNEY Power of Mosaic Tile Maker 01/27/2013 POWER OF A TTORNEY Healthcare Agents on File Name Relationship Healthcare Agent Relationship Communication yCdney Benito Other - (no specific identity) Second Alternate Health Care Agent Anyi More Adult Child Health Care Roberth r of Mosaic Tile Maker Care Teams Senior Mechanical Project Manager Relationship Specialty Start Date End Date Rhys Humphrey MD [address] [place] [address] [place] [address] PCP - General Family Medicine 06/09/21 documented as of this encounter
--- OUTSIDE RECORDS SUMMARY | 2023-08-14 23:35 | External Medical Summary | Summary of Care ---
Author Name Unknown Organization [facility] Address [address] [place] [address] Phone [phone] Care Team Providers Care Continuity Manager Name Role Phone Rhys Humphrey MD Primary Care Provide r Reason for Visit * Reason Onset Date Comments case management 03/02/2023 Encounter Details Date Type Department Care Team Description 03/02/2023 Marking Clerk Telephone Family Medicine [address] [phone] Sandra Terrell, RN [address] [place] [address] case management Allergies Active Allergy Reactions Severity Noted Date [...] before bedtime. 50 Cap 0 01/18/2021 Active Egysmhh-Whdjshubd-Cd nc 333-133-5 MG Oral Tablet Take by [...] MCG/INH Inhalation Aerosol Powder Breath Activated (umeclidinium-vilant ed)Indications:ASSEMBLER INSTALLER GENERAL D, moderate (HCC),COPD, group D, by GOLD [...] mRNA, LNP-s, No Pre serve, 2-Dose Series ([employer]Social) 07/11/2021,11/14/2020,10/24/2020 Covid-19, Mrna, Lnp-s, Pf, B ivalent, 30 Mcg, IM, 12 yrs and above (vSocial) 07/21/2022 Pneumococcal Conjugate Vacc, 13 Valent (Prevnar) 03/16/2015 Pneumococcal Conjugate Vacci ne, 20-valent ([id number]) 07/21/2022 Pneumococcal Polysaccharide PPV23 (Pneumovax) 03/05/2019,07/18/2007 Seasonal [...] encounter Miscellaneous Notes * Telephone Encounter - Sandra Terrell RN - 03/02/2023 11:12 AM EDT [facility] trigger for weight gain of 5.6 lbs in the past 5 days. Current weight is 164.6 lbs. Patient does not normally trigger. Average weights are 159-161 lbs. Chart reviewed. Enrolled in [employer]. Attempted to call [facility] to make sure they were aware of trigger - -1) first time - reached voice mailbox of Denise Pittman, which was full and unable to take any messages. -2) second time - on hold >10 minutes. Hung up. Recording states they are experiencing high thannormal call volume. Chart reviewed again. Noted there is an entry today, from [facility] noting the trigger. No further attempts at contact made. documented in this encounter Plan of Treatment Upcoming Encounters Date Type Specialty Care Team Description 03/16/2023 Office Visit Family Medicine Rhys Humphrey MD [address] [place] [address] [place] [address] 03/22/2023 Home Visit [facility] Cinthia Murphy PA-C [address] [place] [address] 04/09/2023 Home Visit [facility] Amy Zaragoza RN [address] [place] [address] 06/21/2023 Office Visit Cardiology Mi Neil PA-C [address] [place] [address] 09/17/2023 Office Visit Dermatology Marycruz Almazan PA-C [address] [place] [address] [place] [address] Health Maintenance Due Date Last Done Comments [...] D LEVEL ONCE IN A LIFETIME-USE SMARTSET# [id number] Completed 06/29/2020, 03/16/2015 Influenza Vaccine (FLU shot) [...] Documents on File Type Date Recorded Patient Inspection Engineer Expl anation POLST 10/15/2019 3:17 PM POLST POLST 03/05/2019 POLST FORM Advance Directives and Living Will 01/27/2013 LIVING WILL Advance Directives and Living Will 01/27/2013 LIVING WILL Power of Medical/Surgery Registered Nurse 01/27/2013 POWER OF A TTORNEY Power of Medical/Surgery Registered Nurse 01/27/2013 POWER OF A TTORNEY Healthcare Agents on File Name Relationship Healthcare Agent Relationship Communication Cydney Benito Other - (no specific identity) Second Alternate Health Care Agent Anyi More Adult Child Health Care Roberth r of Medical/Surgery Registered Nurse Care Teams Continuity Manager Relationship Specialty Start Date End Date Sellathurai, Thiviyanath, MD [address] [place] [address] [place] [address] PCP - General Family Medicine 06/09/21 documented as of this encounter
--- OUTSIDE RECORDS SUMMARY | 2023-08-14 23:35 | External Medical Summary | Summary of Care ---
Author Name Unknown Organization [facility] Address [address] [place] [address] Phone [phone] Care Team Providers Care Hvac Services Professional Name Role Phone Rhys Humphrey MD Primary Care Provide r Encounter Details Date Type Department Care Team Description 02/23/2023 Home Visit [facility], [facility] [address] [place] [address] [facility] [address] [place] [address] Hypertensive heart disease with chronic diastolic congestive heart failure (HCC)*; Nonrheumatic aortic valve stenosis; COPD, group D, by GOLD 2017 classification (HCC); Nocturnal hypoxemia; ISELA (obstructive sleep apnea); Iron deficiency anemia, unspecified iron deficiency anemia type; Gastroesophageal reflux disease without esophagitis; History of TIA (transient ischemic attack) Allergies Active Allergy Reactions Severity Noted Date Comments Adhesive Tape Other (Please comment),Hives High 09/29/2008 Caused welts Dextromethorphan-Gua ifenesin Neuro complications (Please comment) Medium 12/23/2021 Feels lightheaded/"foggy" documented as of this encounter (statuses as of 02/27/2023) Medications Medication Sig Dispensed Refills Start Date [...] before bedtime. 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),COPD, group D, by [...] OPD, group D, by GOLD 2017 classification ([facility]),COPD exacerbation ([facility]) Take 1 Capsule by mouth in the [...] as of this encounter (statuses as of 02/27/2023) Active Problems Problem Noted Date Acute serous [...] as of this encounter (statuses as of 02/27/2023) Resolved Problems Problem Noted Date Resolved Date [...] as of this encounter (statuses as of 02/27/2023) Immunizations Name Administration Dates Next Due COVID-19 mRNA, LNP-s, No Pre serve, 2-Dose Series (Pfizer) 07/11/2021,11/14/2020,10/24/2020 Covid-19, Mrna, Lnp-s, Pf, B ivalent Booster, 30 Mcg, IM, 12 yrs and above (Pfizer) 07/21/2022 Pneumococcal Conjugate Vacc, 13 Valent (Prevnar) 03/16/2015 Pneumococcal Conjugate Vacci ne, 20-valent ([id number]) 07/21/2022 Pneumococcal Polysaccharide PPV23 (Pneumovax) 03/05/2019,07/18/2007 Seasonal [...] Sign Reading Time Taken Comments Blood Pressure 118/48 02/23/2023 1:27 PM EDT Pulse 83 02/23/2023 1:27 PM EDT Temperature 36 C (96.8 F) 02/23/2023 1:27 PM EDT Respiratory Rate 18 02/23/2023 1:27 PM EDT Oxygen Saturation 99% 02/23/2023 1:27 PM EDT Inhaled Oxygen Concentration - - Weight - - Height - - Body Mass Index - - documented in this encounter Progress Notes * Cinthia Murphy PA-C - 02/23/2023 1:15 PM EDT Images from the original note were not included. [facility] Problem Oriented Charting Provider Visit Date: 02/23/2023 Time: 1:15 PM [facility] Sub-Program: Focused Care Management (3-9 months) [facility] Episode Start Date: Noted: 07/31/2022 Assessment and Plan #1 Hypertensive heart disease with chronic diastolic congestive [...] Lasix dose: 40 mg o Chest X-Ray #2 Nonrheumatic aortic valve stenosis Overview: Mod-severe per ANDREA 01/31/11 Assessment & Plan: Stable Following with cards #3 COPD, group D, by GOLD 2017 classification ([facility]) Overview: Per COPD GOLD Classification Assessment & Plan: Current Status : Actively [...] clock Exacerbation plan o Solumedrol 40mg IM/IV #4 Nocturnal hypoxemia Assessment & Plan: Using 2.5 L of oxygen at night #5 ISELA (obstructive sleep apnea) Assessment & Plan: Needs new CPAP machine. Order placed Orders: - Durable Medical Equipment #6 Iron deficiency anemia, unspecified iron deficiency anemia type Assessment & Plan: Last hgb 11.8 09/26/22 -continue Fe supplement -repeat labs next month #7 Gastroesophageal reflux disease without esophagitis Assessment & Plan: Symptoms controlled. -continue pantoprazole #8 History of TIA (transient ischemic attack) Assessment & Plan: Stable -continue Plavix, aspirin, atorvastatin Additional Medical Decision Making: Keisha is feeling much better. Will continue to follow. Next provider visit 2 months Scheduled appointments in the next 60 days: Future Appointments-next 60 days Date/Time Provider Specialty Dept Phone 02/23/2023 2:30 PM [facility] [phone] 02/23/2023 4:30 PM Josephine Viera Framing Mill Operator Helper [facility] [phone] 02/24/2023 9:00 AM Nurse [facility] [phone] 03/16/2023 9:00 AM (Arrive by 8:45 AM) Rhys Humphrey MD Family Medicine [phone] 04/09/2023 10:00 AM Amy Zaragoza RN [facility] [phone] 06/21/2023 3:00 PM (Arrive by 2:45 PM) Mi Neil PA-C Cardiology [phone] 09/17/2023 9:40 AM (Arrive by 9:25 AM) Marycruz Almazan PA-C Dermatology [phone] A total of 35 minutes was spent face to face (via video-based telemedicine if designated as a telemedicine visit) Subjective Subjective Is this a Telemedicine Visit? No, this is an Home Visit. Reason For [facility] Visit: Follow-Up Current Concerns: Keisha Linares is a 82 year old female seen today for a [facility] provider visit. Today's concerns are: Breathing. Better. No cough, no fever. Got solumedrol 40 mg IM x 2. Started prednisone 40 mg today x 5 days and doxycycline 100 mg bid x 7 days. Doing neb every 6 hrs. Needs new CPAP machine. Been without it for 6 months Weight 162 lb this am. Baseline Appetite has been good. Bowel movements regular. No urinary complaints. No chest pain. Has not been dizzy lately. Has not been using meclizine. Additional Review of Systems All other systems reviewed and are negative. Objective Objective Vitals: 02/23/23 1327 Temp: 36 C (96.8 F) Pulse: 83 Resp: 18 SpO2: 99% BP: 118/48 BP Readings from Last 3 Encounters: 02/23/23 118/48 02/22/23 148/68 02/21/23 138/62 Wt Readings from Last 3 Encounters: 02/01/23 76.9 kg (169 lb 9.6 oz) 12/14/22 76.5 kg (168 lb 9.6 oz) 10/30/22 73.5 kg (162 lb) Last Weights: Wt Readings from Last 3 Encounters: 02/01/23 76.9 kg (169 lb 9.6 oz) 12/14/22 76.5 kg (168 lb 9.6 oz) 10/30/22 73.5 kg (162 lb) Last BPs: BP Readings from Last 4 Encounters: 02/23/23 118/48 02/22/23 148/68 02/21/23 138/62 02/13/23 132/60 Physical Exam Constitutional: Appearance: Normal appearance. HENT: Head: Normocephalic. Mouth/Throat: Mouth: Mucous membranes are moist. Eyes: Extraocular Movements: Extraocular movements intact. Cardiovascular: Rate and Rhythm: Normal rate and regular rhythm. Heart sounds: Murmur heard. Pulmonary: Effort: Pulmonary effort is normal. Breath sounds: Normal breath sounds. Abdominal: General: Bowel sounds are normal. Palpations: Abdomen is soft. Musculoskeletal: General: No swelling. Cervical back: Neck supple. Skin: General: Skin is warm and dry. Neurological: General: No focal deficit present. Mental Status: She is alert and oriented to person, place, and time. Psychiatric: Mood and Affect: Mood normal. Lab Review: I have reviewed the [...] - [facility] mg/dL 21* 16 -- 19 Lipid panel results Recent Labs Units 04/28/22 0923 06/09/21 0803 CHOLESTEROL - [facility] mg/dL 170 147 LDL CHOLESTEROL (CALCULATED) - [facility] mg/dL 84 73 HDL CHOLESTEROL - [facility] mg/dL 72 61 TRIGLYCERIDES - [facility] mg/dL 68 67 CBC results Recent Labs Units 09/26/22 1606 04/28/22 0923 10/11/21 0811 WBC AUTO - [facility] K/uL 7.53 6.64 7.31 HGB - [facility] g/dL 11.8* 11.2* 12.4 HCT - [facility] % 37.2 37.0 40.0 PLATELET AUTO - [facility] K/uL 312 316 267 HbA1c results Recent Labs Units 07/07/21 1134 HEMOGLOBIN A1C - [facility] % 5.3 TSH results Recent Labs Units 09/26/22 1606 04/19/21 0756 TSH - [facility] uIU/mL 3.16 1.59 Medication Review "Bottles Out" medication review performed today and medication list in EMR updated Mobility Evaluation: MAHC10 Assessment: Assistive Devices Used in the Home: Walker (standard or rollator) Cinthia Murphy PA-C 1:15 PM *Communication sent to PCP (via [email or web address] if [facility]), [facility] Care Team members,relevant Specialty Care Physicians* documented in this encounter Miscellaneous Notes * Assessment & Plan Note - Cinthia Murphy PA-C - 02/27/2023 9:50 AM EDT Associated Problem(s): History of TIA (transient ischemic attack) Stable -continue Plavix, aspirin, atorvastatin * Assessment & Plan Note - Cinthia Murphy PA-C - 02/27/2023 9:49 AM EDT Associated Problem(s): Gastroesophageal reflux disease without esophagitis Symptoms controlled. -continue pantoprazole * Assessment & Plan Note - Cinthia Murphy PA-C - 02/27/2023 9:48 AM EDT Associated Problem(s): Iron deficiency anemia Last hgb 11.8 09/26/22 -continue Fe supplement -repeat labs next month * Assessment & Plan Note - Cinthia Murphy PA-C - 02/27/2023 9:47 AM EDT Associated Problem(s): ISELA (obstructive sleep apnea) Needs new CPAP machine. Order placed * Assessment & Plan Note - Cinthia Murphy PA-C - 02/27/2023 9:47 AM EDT Associated Problem(s): Nocturnal hypoxemia Using 2.5 L of oxygen at night * Assessment & Plan Note - Cinthia Murphy PA-C - 02/27/2023 9:44 AM EDT Associated Problem(s): COPD, group D, by GOLD 2017 classification ([facility]) Current Status : Actively exacerbating [...] couch") Medication Regimen o Other: anoro, arnuity, singarikir, chandler Self-Management plan o Prednisone 40mg daily for 5 days Rx o Oral Antibiotic Rx (see medication list) o High frequency nebulizer treatments every 4-6 hours around the clock Exacerbation plan o Solumedrol 40mg IM/IV * Assessment & Plan Note - Cinthia Murphy PA-C - 02/27/2023 9:44 AM EDT Associated Problem(s): Nonrheumatic aortic valve stenosis Stable Following with cards * Assessment & Plan Note - Cinthia Murphy PA-C - 02/27/2023 9:39 AM EDT Associated Problem(s): Hypertensive heart disease with [...] Lasix dose: 40 mg o Chest X-Ray documented in this encounter Plan of Treatment Upcoming Encounters Date Type Specialty Care Team Description 03/16/2023 Office Visit Family Medicine Rhys Humphrey MD [address] [place] [address] [place] [address] 03/22/2023 Home Visit [facility] Cinthia Murphy PA-C [address] [place] [address] 04/09/2023 Home Visit [facility] Amy Zaragoza RN [address] [place] [address] 06/21/2023 Office Visit Cardiology Mi Neil PA-C [address] [place] [address] 09/17/2023 Office Visit Dermatology Marycruz Almazan PA-C [address] [place] [address] [place] [address] Health Maintenance Due Date Last Done Comments [...] D LEVEL ONCE IN A LIFETIME-USE SMARTSET# [id number] Completed 06/29/2020, 03/16/2015 Influenza Vaccine (FLU shot) [...] chronic diastolic congestive heart failure (HCC)- Primary Nonrheumatic aortic valve stenosis Aortic valve disorders COPD, group D, by GOLD 2017 classification (HCC) Nocturnal hypoxemia Hypoxemia ISELA (obstructive sleep apnea) Obstructive sleep apnea (adult) (pediatric) Iron deficiency anemia, unspecified iron deficiency anemia type Gastroesophageal reflux disease without esophagitis Esophageal reflux History of TIA (transient ischemic attack) Transient ischemic attack (TIA), and cerebral infarction without residual deficits documented in this encounter Advance Directives Documents on File Type Date Recorded Patient Operational Risk Manager Expl anation POLST 10/15/2019 3:17 PM POLST POLST 03/05/2019 POLST FORM Advance Directives and Living Will 01/27/2013 LIVING WILL Advance Directives and Living Will 01/27/2013 LIVING WILL Power of Field Mechanical Meter Tester 01/27/2013 POWER OF A TTORNEY Power of Field Mechanical Meter Tester 01/27/2013 POWER OF A TTORNEY Healthcare Agents on File Name Relationship Healthcare Agent Relationship Communication Cydney Benito Other - (no specific identity) Second Alternate Health Care Agent Anyi More Adult Child Health Care Roberth r of Field Mechanical Meter Tester Care Teams Hvac Services Professional Relationship Specialty Start Date End Date Rhys Humphrey MD [address] [place] [address] [place] [address] PCP - General Family Medicine 06/09/21 documented as of this encounter
--- OUTSIDE RECORDS SUMMARY | 2023-08-14 23:35 | External Medical Summary | Summary of Care ---
Author Name Unknown Organization [facility] Address [address] [place] [address] Phone [phone] Care Team Providers Care Postpartum Nurse Name Role Phone Rhys Humphrey MD Primary Care Provide r Reason for Visit * Reason Onset Date Comments [facility]: Maintenance 03/02/2023 Encounter Details Date Type Department Care Team Description 03/02/2023 Telephone [facility], [place] [address] [place] [address] [facility], Nurse [facility] [address] [place] [address] [facility]: Maintenance Allergies Active Allergy [...] before bedtime. 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 * Telephone Encounter - Joe Beebe DO - 03/02/2023 8:41 AM EDT [facility] Phone Encounter Reviewed phone message regarding the patient's weight and [facility] findings. Please see below for the response to the [facility] trigger: Problem List Items Addressed This Visit None Addt'l Comments: Since asymptomatic, continue to monitor. Routed to the [facility] Pool and any relevant parties Thank you in advance, I appreciate it. Joe Beebe DO [facility] 03/02/2023 * Telephone Encounter - Denise Pittman LPN - 03/02/2023 8:16 AM EDT Images from the original note were not included. [facility]) Weight Trigger [facility] Data: Baseline Weight: 10lb below 172 and [...] Visit Family Medicine Rhys Humphrey MD [address] [place] [address] [place] [phone] 03/22/2023 Home Visit [facility] Cinthia Murphy PA-C [address] [place] [address] 04/09/2023 Home Visit [facility] Amy Zaragoza RN [address] [place] [address] 06/21/2023 Office Visit Cardiology Mi Neil PA-C [address] [place] [address] 09/17/2023 Office Visit Dermatology Marycruz Almazan PA-C [address] [place] [address] [place] [address] Health Maintenance Due Date Last Done Comments [...] D LEVEL ONCE IN A LIFETIME-USE SMARTSET# [id number] Completed 06/29/2020, 03/16/2015 Influenza Vaccine (FLU shot) [...] Documents on File Type Date Recorded Patient Ski Molder Expl anation POLST 10/15/2019 3:17 PM POLST POLST 03/05/2019 POLST FORM Advance Directives and Living Will 01/27/2013 LIVING WILL Advance Directives and Living Will 01/27/2013 LIVING WILL Power of Textile Machine Maintenance Mechanic 01/27/2013 POWER OF A TTORNEY Power of Textile Machine Maintenance Mechanic 01/27/2013 POWER OF A TTORNEY Healthcare Agents on File Name Relationship Healthcare Agent Relationship Communication Cydney Benito Other - (no specific identity) Second Alternate Health Care Agent Anyi More Adult Child Health Care Roberth r of Textile Machine Maintenance Mechanic Care Teams Postpartum Nurse Relationship Specialty Start Date End Date Rhys Humphrey MD [address] [place] [address] [place] [address] PCP - General Family Medicine 06/09/21 documented as of this encounter
--- OUTSIDE RECORDS SUMMARY | 2023-08-14 23:35 | External Medical Summary | Summary of Care ---
Author Name Unknown Organization [facility] Address [address] [place] [address] Phone [phone] Care Team Providers Care Button Tufting Machine Operator Name Role Phone hRys Humphrey MD Primary Care Provide r Reason for Visit * Reason Comments [facility]: Acute Encounter Details Date Type Department Care Team Description 02/22/2023 Home Visit [facility], [facility] [address] [place] [address] Sarah Vitale, RN [address] [place] [address] Allergies Active Allergy Reactions Severity Noted Date [...] before bedtime. 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 360 mL 0 02/01/2023 Active Ramelteon 8 MG Oral Tablet (Rozerem)Indications :Insomnia, unspecified type TAKE ONE TABLET BY MOUTH AT BEDTIME 30 Tablet 3 02/21/2023 Active Doxycycline Hyclate 100 MG Oral CapsuleIndications:C OPD, group D, by GOLD 2017 classification ([facility]),COPD exacerbation ([facility]) Take 1 Capsule by mouth in the morning and 1 Capsule before bedtime. Do all this for 7 days. Take for 7 days. 14 Capsule 0 02/21/2023 3 Active documented as of this encounter [...] Obstructive sleep apnea 11/22/2011 12/08/19 18 Overview: 2/22/12 -- auto CPAP 5-15 01/15/14 oxygen at [...] mRNA, LNP-s, No Pre serve, 2-Dose Series (BBE) 07/11/2021,11/14/2020,10/24/2020 Covid-19, Mrna, Lnp-s, Pf, B ivalent Booster, 30 Mcg, IM, 12 yrs and above (BBE) 07/21/2022 Pneumococcal Conjugate Vacc, 13 Valent (Prevnar) 03/16/2015 Pneumococcal Conjugate Vacci ne, 20-valent ([id number]) 07/21/2022 Pneumococcal Polysaccharide PPV23 (Pneumovax) 03/05/2019,07/18/2007 Seasonal [...] Sign Reading Time Taken Comments Blood Pressure 148/68 02/22/2023 11:48 AM EDT Pulse 80 02/22/2023 11:48 AM EDT Temperature 35.7 C (96.3 F) 02/22/2023 11:48 AM E DT Respiratory Rate 18 02/22/2023 11:48 AM EDT Oxygen Saturation 91% 02/22/2023 11:48 AM EDT Inhaled Oxygen Concentration - - Weight - - Height - - Body Mass Index - - documented in this encounter Progress Notes * Sarah Vitale RN - 02/22/2023 11:47 AM EDT Images from the original note were not included. [facility] Guillotine Trimmer Visit Date: 02/22/2023 Time: 11:47 AM Name: Keisha Linares : 1940 Current Concerns: Patient seen for acute visit follow up- received Solumedrol IM yesterday for sob above baseline- Started Doxycycline yesterday. Spo2- 89% RA after returning to apartment Sob improved but still above baseline Lungs clear but diminished VS wnl No LE edema noted Voiding without difficulty Bowels wnl Appetite good Taking fluids well TT to [facility]- Solumedrol IM today- start prednisone regimen tomorrow. Continue Doxycycline. Problems/Symptoms: Review of Systems Constitutional: Negative. HENT: Negative. Eyes: Negative. Respiratory: Positive for shortness of breath. Cardiovascular: Negative. Gastrointestinal: Negative. Endocrine: Negative. Genitourinary: Negative. Musculoskeletal: Negative. Skin: Negative. Allergic/Immunologic: Negative. Neurological: Negative. Hematological: Negative. Psychiatric/Behavioral: Negative. Physical Exam: BP 148/68 (BP Site: Left Arm, BP Position: Sitting, BP Cuff Size: Regular) | Pulse 80 | Temp 35.7 C (96.3 F) (Tympanic) | Resp 18 | SpO2 91% Pain 0 Physical Exam Constitutional: Appearance: Normal appearance. Cardiovascular: Rate and Rhythm: Normal rate. Pulses: Normal pulses. Heart sounds: Normal heart sounds. Pulmonary: Effort: Pulmonary effort is normal. Breath sounds: Normal breath sounds. Comments: Slightly diminished Abdominal: General: Bowel sounds are normal. Palpations: Abdomen is soft. Musculoskeletal: General: Normal range of motion. Cervical back: Normal range of motion. Skin: General: Skin is warm and dry. Capillary Refill: Capillary refill takes 2 to 3 seconds. Neurological: General: No focal deficit present. Mental Status: She is alert and oriented to person, place, and time. Psychiatric: Mood and Affect: Mood normal. Behavior: Behavior normal. MAHC-10 Completed this Visit: No. Routine visit Treatment/Plan: Solumedrol 40mg IM left deltoid Continue medications as prescribed Started doxycyline yesterday Begin prednisone regimen 02/23 Keep all upcoming MD appointments Fall precautions [facility] scale/BP cuff Follow up in 1 day via phone Home Interventions Provided: IV Interventions: Steroid Consulted PCP/Specialist Reinforced current Plan of Care, including self-management and medication regimen Patient Needs to Remember: Call [facility] with any medical concerns/ red flags Referrals Needed: n/a Follow Up: Is there cellular connectivity/connectivity in the home? Yes Does the patient have internet in the home? No Patient encouraged to call the intake phone number for all urgent but not emergent issues. Scheduled to follow up with patient in 1 day. Sraah Bhandari RN 02/22/2023 11:47 AM documented in this encounter Plan of Treatment Upcoming Encounters Date Type Specialty Care Team Description 03/16/2023 Office Visit Family Medicine Rhys Humphrey MD [address] [place] [address] [place] [address] 03/22/2023 Home Visit [facility] Cinthia Murphy PA-C [address] [place] [address] 04/09/2023 Home Visit [facility] Amy Zaragoza RN [address] [place] [address] 06/21/2023 Office Visit Cardiology Mi Neil PA-C [address] [place] [address] 09/17/2023 Office Visit Dermatology Marycruz Almazan PA-C [address] [place] [address] [place] [address] Health Maintenance Due Date [...] D LEVEL ONCE IN A LIFETIME-USE SMARTSET# [id number] Completed 06/29/2020, 03/16/2015 Influenza Vaccine (FLU shot) [...] Not on filedocumented as of this encounter Administered Medications Inactive Administered Medications - up to 3 most recent administrations Medication Order MAR Action Action Date Dose Rate Site methylPREDNISolone sodium succ (SOLU-Medrol) inj 40 mg 40 mg, Intramuscular, ONCE, On Dania 02/22/23 at 1245, For 1 dose Given 02/22/2023 12:14 PM EDT 40 mg Arm Left Upper documented in this encounter Advance Directives Documents on File Type Date Recorded Patient Commissary Manager Expl anation POLST 10/15/2019 3:17 PM POLST POLST 03/05/2019 POLST FORM Advance Directives and Living Will 01/27/2013 LIVING WILL Advance Directives and Living Will 01/27/2013 LIVING WILL Power of Plant Associate 01/27/2013 POWER OF A TTORNEY Power of Plant Associate 01/27/2013 POWER OF A TTORNEY Healthcare Agents on File Name Relationship Healthcare Agent Relationship Communication Cydney Benito Other - (no specific identity) Second Alternate Health Care Agent Anyi More Adult Child Health Care Roberth r of Plant Associate Care Teams Button Tufting Machine Operator Relationship Specialty Start Date End Date Rhys Humphrey MD [address] [place] [address] [place] [phone] PCP - General Family Medicine 06/09/21 documented as of this encounter
--- OUTSIDE RECORDS SUMMARY | 2023-08-14 23:35 | External Medical Summary | Summary of Care ---
Author Name Unknown Organization [facility] Address [address] [place] [address] Phone [phone] Care Team Providers Care Book Trimmer Name Role Phone Rhys Humphrey MD Primary Care Provide r Reason for Visit * Reason Onset Date Comments [facility]: Maintenance 02/27/2023 Encounter Details Date Type Department Care Team Description 02/27/2023 Telephone [facility], [place] [address] [place] [address] [facility], Nurse [facility] [address] [place] [address] [facility]: Maintenance Allergies Active Allergy [...] before bedtime. 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),COPD, group D, by [...] GOLD 2017 classification ([facility]),COPD exacerbation ([facility]) Take 1 Capsule by mouth [...] mRNA, LNP-s, No Pre serve, 2-Dose Series (Clctin) 07/11/2021,11/14/2020,10/24/2020 Covid-19, Mrna, Lnp-s, Pf, B ivalent Booster, 30 Mcg, IM, 12 yrs and above (Pfizer) 07/21/2022 Pneumococcal Conjugate Vacc, 13 Valent (Prevnar) 03/16/2015 Pneumococcal Conjugate Vacci ne, 20-valent ([id number]) 07/21/2022 Pneumococcal Polysaccharide PPV23 (Pneumovax) 03/05/2019,07/18/2007 Seasonal [...] Miscellaneous Notes * Telephone Encounter - Denise Prakash Pittman LPN - 02/27/2023 10:29 AM EDT Images from the original note were not included. [facility] Telephonic Nurse Follow-Up Call [facility] Subprogram: Focused Care Management (3-9 months) [...] EJECTION FRACTION Remote Patient Monitoring: [facility] Blood Pressure Cuff: Daily BP readings Oxygen Needs: NO supplemental oxygen needs identified DME Needs: NO DME needs identified Medications: No medication or dose adjustments made during acute episode Subjective: Condition Status: No change in symptoms Current Concerns: Spoke to patient and denies any issues taking medications as directed encouraged to call with any urgent issues Disposition: Issue resolved. All appropriate follow up scheduled. Future Visits Scheduled: Future Appointments-next 60 days Date/Time Provider Specialty Dept Phone 03/16/2023 9:00 AM (Arrive by 8:45 AM) Rhys Humphrey MD Family Medicine [phone] 03/22/2023 8:30 AM Cinthia Murphy PA-C [facility] [phone] 04/09/2023 10:00 AM Amy Zaragoza RN [facility] [phone] 06/21/2023 3:00 PM (Arrive by 2:45 PM) Mi Neil PA-C Cardiology [phone] 09/17/2023 9:40 AM (Arrive by 9:25 AM) Marycruz Almazan PA-C Dermatology [phone] Denise Pittman LPN documented in this encounter Plan of Treatment Upcoming Encounters Date Type Specialty Care Team Description 03/16/2023 Office Visit Family Medicine Rhys Humphrey MD [address] [place] [address] [place] [address] 03/22/2023 Home Visit [facility] Cinthia Murphy PA-C [address] [place] [address] 04/09/2023 Home Visit [facility] Amy Zaragoza RN [address] [place] [address] 06/21/2023 Office Visit Cardiology Mi Neil PA-C [address] [place] [address] 09/17/2023 Office Visit Dermatology Marycruz Almazan PA-C [address] [place] [address] [place] [address] Health Maintenance Due Date Last Done Comments [...] D LEVEL ONCE IN A LIFETIME-USE SMARTSET# [id number] Completed 06/29/2020, 03/16/2015 Influenza Vaccine (FLU shot) [...] on File Type Date Recorded Patient Senior Adults Director Expl anation POLST 10/15/2019 3:17 PM POLST POLST 03/05/2019 POLST FORM Advance Directives and Living Will 01/27/2013 LIVING WILL Advance Directives and Living Will 01/27/2013 LIVING WILL Power of Pre Coder 01/27/2013 POWER OF A TTORNEY Power of Pre Coder 01/27/2013 POWER OF A TTORNEY Healthcare Agents on File Name Relationship Healthcare Agent Relationship Communication Cydney Benito Other - (no specific identity) Second Alternate Health Care Agent Anyi More Adult Child Health Care Roberth r of Pre Coder Care Teams Book Trimmer Relationship Specialty Start Date End Date Rhys Humphrey MD [address] [place] [address] [place] [address] PCP - General Family Medicine 06/09/21 documented as of this encounter
--- OUTSIDE RECORDS SUMMARY | 2023-08-14 23:35 | External Medical Summary | Summary of Care ---
Author Name Unknown Organization [facility] Address [address] [place] [address] Phone [phone] Care Team Providers Care Clinical Nurse Name Role Phone Rhys Humphrey MD Primary Care Provide r Encounter Details Date Type Department Care Team Description 02/23/2023 Home Visit [facility], [facility] [address] [place] [address] [facility] [address] [place] [address] Hypertensive heart disease with chronic diastolic congestive [...] before bedtime. 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),COPD, group D, by [...] by GOLD 2017 classification ([facility]),COPD exacerbation ([facility]) Take 1 Capsule by mouth [...] (Prevnar) 03/16/2015 Pneumococcal Conjugate Vacci ne, 20-valent ([id number]) 07/21/2022 Pneumococcal Polysaccharide PPV23 (Pneumovax) 03/05/2019,07/18/2007 Seasonal [...] Provider Visit Date: 02/23/2023 Time: 1:15 PM [facility] Sub-Program: Focused Care Management (3-9 months) [facility] Episode Start Date: Noted: 07/31/2022 Assessment [...] GOLD 2017 classification ([facility]) Overview: Per COPD GOLD Classification Assessment & [...] 02/23/2023 2:30 PM [facility] [phone] 02/23/2023 4:30 PM Josephine Viera Principal Programmer [facility] [phone] 02/24/2023 9:00 AM Nurse [facility] [phone] 03/16/2023 9:00 AM (Arrive by 8:45 AM) Rhys Humphrey MD Family Medicine [phone] 04/09/2023 10:00 AM Amy Zaragoza RN [facility] [phone] 06/21/2023 3:00 PM (Arrive by 2:45 PM) Mi Neil PA-C Cardiology [phone] 09/17/2023 9:40 AM (Arrive by 9:25 AM) Marycruz Almazan PA-C Dermatology [phone] A total of 35 minutes was spent face to face (via video-based telemedicine if designated as a telemedicine visit) Subjective Subjective Is this a Telemedicine Visit? No, this is an Home Visit. Reason For [facility] Visit: Follow-Up Current Concerns: Keisha Linares [...] 1:15 PM *Communication sent to PCP (via [facility] if [facility]), [facility] Health Care Team members,relevant Specialty Care [...] GOLD 2017 classification ([facility]) Current Status : Actively exacerbating Degree of [...] Visit Family Medicine Rhys Humphrey MD [address] [place] [address] [place] [address] 03/22/2023 Home Visit [facility] Cinthia Murphy PA-C [address] [place] [address] 04/09/2023 Home Visit [facility] Amy Zaragoza RN [address] [place] [address] 06/21/2023 Office Visit Cardiology Mi Neil PA-C [address] [place] [address] 09/17/2023 Office Visit Dermatology Marycruz Almazan PA-C [address] [place] [address] [place] [address] Health Maintenance Due Date Last Done Comments [...] D LEVEL ONCE IN A LIFETIME-USE SMARTSET# [id number] Completed 06/29/2020, 03/16/2015 Influenza Vaccine (FLU shot) [...] Documents on File Type Date Recorded Patient Consumer Studies Professor Expl anation POLST 10/15/2019 3:17 PM POLST POLST 03/05/2019 POLST FORM Advance Directives and Living Will 01/27/2013 LIVING WILL Advance Directives and Living Will 01/27/2013 LIVING WILL Power of Coal Cutter 01/27/2013 POWER OF A TTORNEY Power of Coal Cutter 01/27/2013 POWER OF A TTORNEY Healthcare Agents on File Name Relationship Healthcare Agent Relationship Communication Cydney Benito Other - (no specific identity) Second Alternate Health Care Agent Anyi More Adult Child Health Care Roberth r of Coal Cutter Care Teams Clinical Nurse Relationship Specialty Start Date End Date Rhys Humphrey MD [address] [place] [address] [place] [address] PCP - General Family Medicine 06/09/21 documented as of this encounter
--- OUTSIDE RECORDS SUMMARY | 2023-08-14 23:35 | External Medical Summary | Summary of Care ---
Author Name Unknown Organization [facility] Address [address] [place] [address] Phone [phone] Care Team Providers Care Retail Parts Pro Name Role Phone Rhys Humphrey MD Primary Care Provide r Reason for Visit * Reason Onset Date Comments [facility]: Maintenance 03/02/2023 Encounter Details Date Type Department Care Team Description 03/02/2023 Telephone [facility], [place] [address] [place] [address] [facility], Nurse [facility] [address] [place] [address] [facility]: Maintenance Allergies Active Allergy [...] before bedtime. 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),COPD, group D, by GOLD [...] mRNA, LNP-s, No Pre serve, 2-Dose Series (EvoTronix) 07/11/2021,11/14/2020,10/24/2020 Covid-19, Mrna, Lnp-s, Pf, B ivalent, 30 Mcg, IM, 12 yrs and above (EvoTronix) 07/21/2022 Pneumococcal Conjugate Vacc, 13 Valent (Prevnar) 03/16/2015 Pneumococcal Conjugate Vacci ne, 20-valent ([id number]) 07/21/2022 Pneumococcal Polysaccharide PPV23 (Pneumovax) 03/05/2019,07/18/2007 Seasonal [...] encounter Miscellaneous Notes * Telephone Encounter - Joe Beebe DO - 03/02/2023 8:41 AM EDT [facility] Remote Medical Command [facility] Phone Encounter Reviewed phone message regarding the patient's weight and [facility] findings. Please see below for the response to the [facility] trigger: Problem List Items Addressed This Visit None Addt'l Comments: Since asymptomatic, continue to monitor. Routed to the [facility] Pool and any relevant parties Thank you in advance, I appreciate it. Joe Beebe DO [facility] 03/02/2023 * Telephone Encounter - Denise Pittman LPN - 03/02/2023 8:16 AM EDT Images from the original note were not included. [facility] (Advanced Monitored [facility]) Weight Trigger [facility] Data: Baseline Weight: 10lb below 172 and [...] Visit Family Medicine Rhys Humphrey MD [address] [place] [address] [place] [address] 03/22/2023 Home Visit [facility] Cinthia Murphy PA-C [address] [place] [address] 04/09/2023 Home Visit [facility] Amy Zaragoza RN [address] [place] [address] 06/21/2023 Office Visit Cardiology Mi Neil PA-C [address] [place] [address] 09/17/2023 Office Visit Dermatology Marycruz Almazan PA-C [address] [place] [address] [place] [address] Health Maintenance Due Date Last Done Comments [...] D LEVEL ONCE IN A LIFETIME-USE SMARTSET# [id number] Completed 06/29/2020, 03/16/2015 Influenza Vaccine (FLU shot) [...] Documents on File Type Date Recorded Patient Television Cameraman Expl anation POLST 10/15/2019 3:17 PM POLST POLST 03/05/2019 POLST FORM Advance Directives and Living Will 01/27/2013 LIVING WILL Advance Directives and Living Will 01/27/2013 LIVING WILL Power of Hub Cutter 01/27/2013 POWER OF A TTORNEY Power of Hub Cutter 01/27/2013 POWER OF A TTORNEY Healthcare Agents on File Name Relationship Healthcare Agent Relationship Communication Cydney Benito Other - (no specific identity) Second Alternate Health Care Agent Anyi More Adult Child Health Care Roberth r of Hub Cutter Care Teams Retail Parts Pro Relationship Specialty Start Date End Date Rhys Humphrey MD [address] [place] [address] [place] [address] PCP - General Family Medicine 06/09/21 documented as of this encounter
--- OUTSIDE RECORDS SUMMARY | 2023-08-14 23:36 | External Medical Summary | Summary of Care ---
Author Name Unknown Organization [facility] Address [address] [place] [address] Phone [phone] Care Team Providers Care Petroleum Engineer Name Role Phone Rhys Humphrey MD Primary Care Provide r Reason for Visit * Reason Onset Date Comments [facility]: Maintenance 02/22/2023 Encounter Details Date Type Department Care Team Description 02/22/2023 Scheduled Telephone [facility], [facility] [address] [facility] [place] [address] Coordinator, [facility] [address] [facility] [place] [address] Allergies Active Allergy Reactions Severity Noted Date Comments Adhesive Tape Other (Please comment),Hives High 09/29/2008 Caused welts Dextromethorphan-Gua ifenesin Neuro complications (Please comment) Medium 12/23/2021 Feels lightheaded/"foggy" documented as of this encounter (statuses as of 02/22/2023) Medications Medication Sig Dispensed Refills Start Date [...] before bedtime. 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 Dyslipidemia, goal LDL below 70 01/31/20 Last [...] as of this encounter (statuses as of 02/22/2023) Resolved Problems Problem Noted Date Resolved Date [...] as of this encounter (statuses as of 02/22/2023) Immunizations Name Administration Dates Next Due COVID-19 mRNA, LNP-s, No Pre serve, 2-Dose Series (Pfizer) 07/11/2021,11/14/2020,10/24/2020 Covid-19, Mrna, Lnp-s, Pf, B ivalent Booster, 30 Mcg, IM, 12 yrs and above (Pfizer) 07/21/2022 Pneumococcal Conjugate Vacc, 13 Valent (Prevnar) 03/16/2015 Pneumococcal Conjugate Vacci ne, 20-valent ([id number]) 07/21/2022 Pneumococcal Polysaccharide PPV23 (Pneumovax) 03/05/2019,07/18/2007 Seasonal [...] Telephone Encounter - Jennifer Raya RN - 02/22/2023 12:50 PM EDT No f/u call needed,. Patient is scheduled for [facility] home visit today. Latha Raya RN CCM Gas Adjuster [facility] documented in this encounter Plan of Treatment Upcoming Encounters Date Type Specialty Care Team Description 02/22/2023 Home Visit [facility] Sarah Vitale RN [address] [facility] [place] [address] 02/23/2023 Home Visit [facility] Cinthia Murphy PA-C [address] [place] [address] 02/23/2023 Scheduled Telephone [facility] Economic Development Manager, [facility] [address] [place] [address] 02/24/2023 Scheduled Telephone [facility], Nurse [facility] [address] [place] [address] 03/16/2023 Office Visit Family Medicine Rhys Humphrey MD [address] [place] [address] [place] [address] 04/09/2023 Home Visit [facility] Amy Zaragoza RN [address] [place] [address] 09/17/2023 Office Visit Dermatology Marycruz Almazan PA-C [address] [place] [address] [place] [address] Health Maintenance Due Date Last Done Comments Alpha-1 Antitrypsin 1958 DXA Scan 06/11/2020 06/11/2018, 03/02, 02/16/2012, Additional history exists *BISPHONATE OR OTHER ACCEPTABLE MEDICATION NEEDED FOR OSTEOPOROSIS (REFER TO SMARTSET #[id number]) 01/23/2021 Depression Screening, Annual for Pts 12 and Over 01/18/2022 01/18/2021 GFR 09/26/2023 09/26/2022, 04/01, 03/22/2022, Additional history exists O2 ASSESSMENT COMPLETED IN PAST YEAR FOR COPD 02/22/2024 02/21/2023 Albumin/Creatinine Ratio 04/28/2025 04/28/2022 DTaP,Tdap,and Td Vaccines (3 - Td or Tdap) 09/17/2029 09/17/2019, 08/10/2011, 10/01/2001 Zoster Vaccines Completed 04/25/2020, 08/31, 07/22/2012 VITAMIN D LEVEL ONCE IN A LIFETIME-USE SMARTSET# [id number] Completed 06/29/2020, 03/16/2015 Influenza Vaccine (FLU shot) [...] Documents on File Type Date Recorded Patient Engraver Expl anation POLST 10/15/2019 3:17 PM POLST POLST 03/05/2019 POLST FORM Advance Directives and Living Will 01/27/2013 LIVING WILL Advance Directives and Living Will 01/27/2013 LIVING WILL Power of Single Fold Machine Operator 01/27/2013 POWER OF A TTORNEY Power of Single Fold Machine Operator 01/27/2013 POWER OF A TTORNEY Healthcare Agents on File Name Relationship Healthcare Agent Relationship Communication Cydney Benito Other - (no specific identity) Second Alternate Health Care Agent Anyi More Adult Child Health Care Roberth r of Single Fold Machine Operator Care Teams Petroleum Engineer Relationship Specialty Start Date End Date Rhys Humphrey MD [address] [place] [address] [place] [id number] PCP - General Family Medicine 06/09/21 documented as of this encounter
--- OUTSIDE RECORDS SUMMARY | 2023-08-14 23:36 | External Medical Summary | Summary of Care ---
Author Name Unknown Organization [facility] Address [address] [place] [address] Phone [phone] Care Team Providers Care Transportation Lead Name Role Phone Rhys Humphrey MD Primary Care Provide r Reason for Visit * Reason Onset Date Comments [facility]: Maintenance 02/22/2023 Encounter Details Date Type Department Care Team Description 02/22/2023 Telephone [facility], [place] [address] [place] [address] [facility], Nurse [facility] [address] [place], [place] [id number] [facility]: Maintenance Allergies Active Allergy [...] before bedtime. 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 Do all this for 7 days. Take for 7 days. 14 Capsule 0 02/21/2023 Active documented as of this encounter [...] mRNA, LNP-s, No Pre serve, 2-Dose Series ([employer]) 07/11/2021,11/14/2020,10/24/2020 Covid-19, Mrna, Lnp-s, Pf, B ivalent Booster, 30 Mcg, IM, 12 yrs and above (Pfizer) 07/21/2022 Pneumococcal Conjugate Vacc, 13 Valent (Prevnar) 03/16/2015 Pneumococcal Conjugate Vacci ne, 20-valent ([id number]) 07/21/2022 Pneumococcal Polysaccharide PPV23 (Pneumovax) 03/05/2019,07/18/2007 Seasonal [...] Telephone Encounter - Denise Pittman LPN - 02/22/2023 9:07 AM EDT Images from the original note were not included. FYI BP readings Has appt with RNCM today documented in this encounter Plan of Treatment Upcoming Encounters Date Type Specialty Care Team Description 02/22/2023 Scheduled Telephone [facility] Reinforcing Steel Placer, [facility] [address] [place] [address] 02/22/2023 Home Visit [facility] Sarah Vitale RN [facility] [place] [address] 02/23/2023 Home Visit [facility] Cinthia Murphy PA-C [address] [place] [address] 03/16/2023 Office Visit Family Medicine Rhys Humphrey MD [address] [place] [address] [place] [address] 04/09/2023 Home Visit [facility] Amy Zaragoza RN [address] [place] [address] 09/17/2023 Office Visit Dermatology Marycruz Almazan PA-C [address] [place] [address] [place] [address] Health Maintenance Due Date Last Done Comments [...] D LEVEL ONCE IN A LIFETIME-USE SMARTSET# [id number] Completed 06/29/2020, 03/16/2015 Influenza Vaccine (FLU shot) [...] Documents on File Type Date Recorded Patient Hospice Liaison Expl anation POLST 10/15/2019 3:17 PM POLST POLST 03/05/2019 POLST FORM Advance Directives and Living Will 01/27/2013 LIVING WILL Advance Directives and Living Will 01/27/2013 LIVING WILL Power of Associate [employer] 01/27/2013 POWER OF A TTORNEY Power of Associate [employer] 01/27/2013 POWER OF A TTORNEY Healthcare Agents on File Name Relationship Healthcare Agent Relationship Communication Cydney Benito Other - (no specific identity) Second Alternate Health Care Agent Anyi More Adult Child Health Care Roberth r of Associate [employer] Care Teams Transportation Lead Relationship Specialty Start Date End Date Rhys Humphrey MD [address] [place] [address] [place] [address] PCP - General Family Medicine 06/09/21 documented as of this encounter
--- OUTSIDE RECORDS SUMMARY | 2023-08-14 23:36 | External Medical Summary | Summary of Care ---
Author Name Unknown Organization [facility] Address [address] [place] [address] Phone [phone] Care Team Providers Care Psychologist Experimental Name Role Phone Rhys Humphrey MD Primary Care Provide r Reason for Visit * Reason Onset Date Comments [facility]: Maintenance 02/22/2023 Encounter Details Date Type Department Care Team Description 02/22/2023 Telephone [facility], [facility] [address] [facility] [place] [id number] Joe Beebe, [address] [facility] [address] [facility]: Maintenance Allergies Active Allergy [...] before bedtime. 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 Do all this for 7 days. Take for 7 days. 14 Capsule 0 02/21/2023 3 Active predniSONE 20 MG Oral Tablet (Deltasone) Take 2 Tablets by mouth in the morning for 5 days. Do not start before February 23, 2023. 10 Tablet 0 02/23/2023 3 Active Hospital, Clinic, or Other Facility Administered Medication Ordered Dose Route Frequency Start Date End Date Status methylPREDNISolone sodium succ (SOLU-Medrol) inj 40 mgIndications:COPD exacerbation (HCC) 40 mg IM ONCE 02/22/2023 02/22/2023 Ended documented as of this encounter (statuses as [...] (Prevnar) 03/16/2015 Pneumococcal Conjugate Vacci ne, 20-valent ([id number]) 07/21/2022 Pneumococcal Polysaccharide PPV23 (Pneumovax) 03/05/2019,07/18/2007 Seasonal [...] Encounter - Denise Pittman LPN - 02/22/2023 12:19 PM EDT Follow up calls scheduled. * Telephone Encounter - Joe Beebe DO - 02/22/2023 12:04 PM EDT [facility] [place] Remote Medical Command Field Team Outreach Note [facility] Subprogram: Focused Care Management (3-9 months) [facility] Episode Start Date: Noted: 07/31/2022 Staff Contacted [x]hospitality services manager [][facility] Wedding Transportation Driver []NOBLE []Home Health Communication Type [x]TigerConnect []Telephone Call []Telemedicine [][facility] run behavioral health Region []Northeast [x]Central []West Interventions Ordered/Recommended (Check All That Apply) []Advice Only []Acute Medication Adjustment []Chronic Medication Adjustment []Labs []Imaging [x]IV/IM Intervention []Referral (HH, Hospice, etc) Avoided ED/Admission [x]Yes []No Recommended Disposition [x]Next Day RNCM Home Visit []Next Day [facility] Home Visit []Acute Provider Visit []Scheduled Follow Up Phone Calls []Follow Up As Already Scheduled []Schedule Routine Follow Up Orders Plan methylPREDNISolone sodium succ (SOLU-Medrol) inj 40 mg predniSONE 20 MG Oral Tablet (Deltasone) Additional Comments Patient seen on day 2 for COPD exacerbation. Received Solu-Medrol 40 mg IM yesterday. Notes some improvement but still shortness of breath above baseline Will repeat Solu-Medrol 40 mg IM today. Patient has started doxycycline Will start prednisone tomorrow. To Do: Telephonic TAR PROCESSING TECHNICIAN Pool please work on the following: place on schedule for 24 / 48 hour phone calls Joe Beebe DO Remote Medical Command - [facility] 02/22/2023 Scheduled appointments in the next 60 days: Future Appointments-next 60 days Date/Time Provider Specialty Dept Phone 02/22/2023 12:30 PM [facility] Maximiliano ZhouCalcine Furnace Tender [facility] [phone] 02/22/2023 4:00 PM Sarah Vitale RN [facility] [phone] 02/23/2023 2:30 PM Cinthia Murphy PA-C [facility] [phone] 03/16/2023 9:00 AM (Arrive by 8:45 AM) Rhys Humphrey MD Family Medicine [phone] 04/09/2023 10:00 AM Amy Zaragoza RN [facility] [phone] 09/17/2023 9:40 AM (Arrive by 9:25 AM) Marycruz Almazan PA-C Dermatology [phone] documented in this encounter Plan of Treatment Upcoming Encounters Date Type Specialty Care Team Description 02/22/2023 Home Visit [facility] Sarah Vitale, RAYNA [address] [facility] [place] [address] 02/23/2023 Home Visit [facility] Cinthia Murphy PA-C [address] [place] [address] 02/23/2023 Scheduled Telephone [facility] Electrophonic Engineer, Josephine Zhou [address] [place] [address] 02/24/2023 Scheduled Telephone [facility] Barber, Nurse Josephine Viera [address] [place] [address] 03/16/2023 Office Visit Family Medicine Rhys Humphrey MD [address] [place] [address] [place] [address] 04/09/2023 Home Visit [facility] Amy Zaragoza RN [address] [place] [address] 09/17/2023 Office Visit Dermatology Marycruz Almazan PA-C [address] [place] [address] [place] [address] Health Maintenance Due Date Last Done Comments [...] D LEVEL ONCE IN A LIFETIME-USE SMARTSET# [id number] Completed 06/29/2020, 03/16/2015 Influenza Vaccine (FLU shot) [...] as of this encounter Visit Diagnoses Diagnosis COPD exacerbation (HCC)- Primary Obstructive chronic bronchitis with exacerbation documented in this encounter Advance Directives Documents on File Type Date Recorded Patient Mask Designer Expl anation POLST 10/15/2019 3:17 PM POLST POLST 03/05/2019 POLST FORM Advance Directives and Living Will 01/27/2013 LIVING WILL Advance Directives and Living Will 01/27/2013 LIVING WILL Power of Grading Machine Feeder 01/27/2013 POWER OF A TTORNEY Power of Grading Machine Feeder 01/27/2013 POWER OF A TTORNEY Healthcare Agents on File Name Relationship Healthcare Agent Relationship Communication Cydney Benito Other - (no specific identity) Second Alternate Health Care Agent Anyi More Adult Child Health Care Roberth r of Grading Machine Feeder Care Teams Psychologist Experimental Relationship Specialty Start Date End Date Rhys Humphrey MD [address] [place] [address] [place] [address] PCP - General Family Medicine 06/09/21 documented as of this encounter
--- OUTSIDE RECORDS SUMMARY | 2023-08-14 23:36 | External Medical Summary | Summary of Care ---
Author Name Unknown Organization [facility] Address [address] [place] [address] Phone [phone] Care Team Providers Care Petroleum Inspector Name Role Phone Rhys Humphrey MD Primary Care Provide r Encounter Details Date Type Department Care Team Description 02/21/2023 [facility] Visit [facility] [address] [facility] [address] Sarah Vitale, RAYNA [address] [place] [address] Allergies Active Allergy Reactions Severity Noted Date Comments Adhesive Tape Other (Please comment),Hives High 09/29/2008 Caused welts Dextromethorphan-Gua ifenesin Neuro complications (Please comment) Medium 12/23/2021 Feels lightheaded/"foggy" documented as of this encounter (statuses as of 02/21/2023) Medications Medication Sig Dispensed Refills Start Date [...] before bedtime. 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),COPD, group D, by GOLD [...] as of this encounter (statuses as of 02/21/2023) Active Problems Problem Noted Date Acute serous [...] as of this encounter (statuses as of 02/21/2023) Resolved Problems Problem Noted Date Resolved Date [...] as of this encounter (statuses as of 02/21/2023) Immunizations Name Administration Dates Next Due COVID-19 mRNA, LNP-s, No Pre serve, 2-Dose Series ([employer]) 07/11/2021,11/14/2020,10/24/2020 Covid-19, Mrna, Lnp-s, Pf, B ivalent Booster, 30 Mcg, IM, 12 yrs and above ([employer]) 07/21/2022 Pneumococcal Conjugate Vacc, 13 Valent (Prevnar) 03/16/2015 Pneumococcal Conjugate Vacci ne, 20-valent ([id number]) 07/21/2022 Pneumococcal Polysaccharide PPV23 (Pneumovax) 03/05/2019,07/18/2007 Seasonal [...] Sign Reading Time Taken Comments Blood Pressure 138/62 02/21/2023 11:18 AM EDT Pulse 92 02/21/2023 11:18 AM EDT Temperature 35.9 C (96.6 F) 02/21/2023 11:18 AM E DT Respiratory Rate 18 02/21/2023 11:18 AM EDT Oxygen Saturation 94% 02/21/2023 11:18 AM EDT Inhaled Oxygen Concentration - - Weight - - Height - - Body Mass Index - - documented in this encounter Progress Notes * Sarah Vitale RN - 02/21/2023 11:03 AM EDT [facility] Community AdvocateBoard Member Visit Date: 02/21/2023 Time: 11:03 AM Name: Keisha Linares : 1940 Current Concerns: Received TT- "Patient reports increased SOB on exertion. Cough with clear phlegm. Reports chest tightness and wheezing. Weight up 1.5lbs from yesterday. Denies LE edema but does report increased abd bloating." Patient greeted this nurse at downstairs door- not wearing oxygen. Once returning to apartment- Spo2-82% RA with ambulation Spo2- 93% with 2.5L oxygen Denies chest discomfort Denies abdominal bloating- no LE edema noted VS wnl Lungs- faint wheeze noted bilateral lower lobes Sob above baseline Using nebulizer as directed Productive cough of clear Voiding without difficulty Bowels wnl- per report Appetite good Taking fluids well TT to [facility]- Dr. Beebe- Solumedrol 40mg IM- Doxycycline as prescribed Return visit tomorrow for recheck Problems/Symptoms: Review of Systems Constitutional: Negative. HENT: Negative. Eyes: Negative. Respiratory: Positive for cough and shortness of breath. Cardiovascular: Negative. Gastrointestinal: Negative. Endocrine: Negative. Genitourinary: Negative. Musculoskeletal: Negative. Skin: Negative. Allergic/Immunologic: Negative. Neurological: Negative. Hematological: Negative. Psychiatric/Behavioral: Negative. Physical Exam: BP 138/62 (BP Site: Left Arm, BP Position: Sitting, BP Cuff Size: Regular) | Pulse 92 | Temp 35.9 C (96.6 F) (Tympanic) | Resp 18 | SpO2 94% Pain 0 Physical Exam Constitutional: Appearance: Normal appearance. Cardiovascular: Rate and Rhythm: Normal rate and regular rhythm. Pulses: Normal pulses. Heart sounds: Normal heart sounds. Pulmonary: Effort: Pulmonary effort is normal. Breath sounds: Wheezing present. Abdominal: General: Bowel sounds are normal. Palpations: Abdomen is soft. Musculoskeletal: General: Normal range of motion. Cervical back: Normal range of motion. Skin: General: Skin is warm and dry. Capillary Refill: Capillary refill takes 2 to 3 seconds. Neurological: General: No focal deficit present. Mental Status: She is alert. Psychiatric: Mood and Affect: Mood normal. Behavior: Behavior normal. MAHC-10 Completed this Visit: No. No falls since last visit Treatment/Plan: Solumedrol 40mg given Right deltoid Nebulizer treatments as per order Oxygen at 2.5L while in apartment Doxycycline sent to [facility] pharmacy Continue medications as prescribed Keep all upcoming MD appointments Fluids encouraged Low na diet [facility]C scales daily RN CM follow up in one day. Home Interventions Provided: IV Interventions: Steroid IM Oral Medications: Antibiotic Specialty Referral Placed Consulted PCP/Specialist Patient Needs to Remember: Call [facility] with any medical concerns/ red flags Referrals Needed: n/a Follow Up: Is there cellular connectivity/connectivity in the home? Yes Does the patient have internet in the home? Yes Patient encouraged to call the intake phone number for all urgent but not emergent issues. Scheduled to follow up with patient in 1 day. Sarah Bhandari RN 02/21/2023 11:03 AM documented in this encounter Plan of Treatment Upcoming Encounters Date Type Specialty Care Team Description 02/22/2023 Scheduled Telephone [facility], [facility] [address] [place] [address] 02/22/2023 Home Visit [facility] Sarah Vitale RN [address] [facility] [place] [address] 02/23/2023 Home Visit [facility] Cinthia Murphy PA-C [address] [place] [address] 03/16/2023 Office Visit Family Medicine Rhys Humphrey MD [address] [place] [address] [place] [address] 04/09/2023 Home Visit [facility] Amy Zaragoza, RN [address] [place] [address] 09/17/2023 Office Visit Dermatology Marycruz Almazan PA-C [address] [place] [address] [place] [address] Health Maintenance Due Date Last Done Comments [...] D LEVEL ONCE IN A LIFETIME-USE SMARTSET# [id number] Completed 06/29/2020, 03/16/2015 Influenza Vaccine (FLU shot) [...] 40 mg 40 mg, Intramuscular, ONCE, On Sun02/21/23 at 1230, For 1 dose Given 02/21/2023 3:55 PM EDT 40 mg Arm Right Upper documented in this encounter Advance Directives Documents on File Type Date Recorded Patient Intermediate Manager Expl anation POLST 10/15/2019 3:17 PM POLST POLST 03/05/2019 POLST FORM Advance Directives and Living Will 01/27/2013 LIVING WILL Advance Directives and Living Will 01/27/2013 LIVING WILL Power of Film Developer 01/27/2013 POWER OF A TTORNEY Power of Film Developer 01/27/2013 POWER OF A TTORNEY Healthcare Agents on File Name Relationship Healthcare Agent Relationship Communication Cydney Benito Other - (no specific identity) Second Alternate Health Care Agent Anyi More Adult Child Health Care Roberth r of Film Developer Care Teams Petroleum Inspector Relationship Specialty Start Date End Date Rhys Humphrey MD [address] [place] [address] [place] [address] PCP - General Family Medicine 06/09/21 documented as of this encounter
--- OUTSIDE RECORDS SUMMARY | 2023-08-14 23:36 | External Medical Summary | Summary of Care ---
Author Name Unknown Organization [facility] Address [address] [place] [address] Phone [phone] Care Team Providers Care Polisher Aluminum Name Role Phone Rhys Humphrey MD Primary Care Provide r Reason for Visit * Reason Onset Date Comments [facility]: Maintenance 02/23/2023 Encounter Details Date Type Department Care Team Description 02/23/2023 Scheduled Telephone [facility], [facility] [address] [facility] [place] [address] Coordinator, [facility] [address] [facility] [place] [address] Allergies Active Allergy Reactions Severity Noted Date Comments Adhesive Tape Other (Please comment),Hives High 09/29/2008 Caused welts Dextromethorphan-Gua ifenesin Neuro complications (Please comment) Medium 12/23/2021 Feels lightheaded/"foggy" documented as of this encounter (statuses as of 02/23/2023) Medications Medication Sig Dispensed Refills Start Date [...] before bedtime. 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 360 mL 0 02/01/2023 Active Ramelteon 8 MG Oral Tablet (Rozerem)Indications :Insomnia, unspecified type TAKE ONE TABLET BY MOUTH AT BEDTIME 30 Tablet 3 02/21/2023 Active Doxycycline Hyclate 100 MG Oral CapsuleIndications:C OPD, group D, by GOLD 2017 classification ([facility]),COPD exacerbation ([facility]) Take 1 Capsule by mouth in the [...] as of this encounter (statuses as of 02/23/2023) Active Problems Problem Noted Date Acute serous [...] as of this encounter (statuses as of 02/23/2023) Resolved Problems Problem Noted Date Resolved Date [...] as of this encounter (statuses as of 02/23/2023) Immunizations Name Administration Dates Next Due COVID-19 mRNA, LNP-s, No Pre serve, 2-Dose Series ([employer]) 07/11/2021,11/14/2020,10/24/2020 Covid-19, Mrna, Lnp-s, Pf, B ivalent Booster, 30 Mcg, IM, 12 yrs and above ([employer]izer) 07/21/2022 Pneumococcal Conjugate Vacc, 13 Valent (Prevnar) 03/16/2015 Pneumococcal Conjugate Vacci ne, 20-valent ([id number]) 07/21/2022 Pneumococcal Polysaccharide PPV23 (Pneumovax) 03/05/2019,07/18/2007 Seasonal [...] Telephone Encounter - Camila Thakur RN - 02/23/2023 10:56 AM EDT Images from the original note were not included. [facility] Telephonic Nurse Follow-Up Call [facility] Subprogram: Focused Care Management (3-9 months) Follow Up Call Type: 24 hour follow up Acute issue requiring follow-up call: Acute Exacerbation of COPD Follow up solumedrol Objective: 02/22/2023 11:48 AM 02/21/2023 11:18 AM 02/13/2023 5:11 PM 02/01/2023 2:40 PM 01/01/2023 11:30 AM VITALS ACROSS ENCOUNTERS BP 148/68 138/62 132/60 122/60 110/48 Pulse 80 92 80 96 108 Weight 76.9 kg BMI 28.88 BMI 28.88 [...] FRACTION Remote Patient Monitoring: [facility] Scale: see above Oxygen Needs: NO CHANGE from baseline supplemental oxygen needs DME Needs: Nebulizer machine and supplies Medications: Current Rescue Kit: Prednisone 40mg daily for 5 days Rx Oral Antibiotic Rx (see medication list) High frequency nebulizer treatments every 4-6 hours around the clock Subjective: Condition Status: Improvement in symptoms but not at baseline Current Concerns: Pt states that she feels "much better". Denies any symptoms. BP 133/54 P 99. Pt states someone willpick up her Prednisone and she will start taking it today. Denies cough or SOB. Reports that she isusing inhaler as directed. Disposition: Follow up call scheduled for tomorrow with CHURN OPERATOR MARGARINE [employer] Director and Provider Home Visit scheduled Future Visits Scheduled: Future Appointments-next 60 days Date/Time Provider Specialty Dept Phone 02/23/2023 2:30 PM Cinthia Murphy PA-C [facility] [phone] 02/23/2023 4:30 PM [facility] Emerging Technologies Director [facility] [phone] 02/24/2023 9:00 AM Nurse [facility] [phone] 03/16/2023 9:00 AM (Arrive by 8:45 AM) Rhys Humphrey MD Family Medicine [phone] 04/09/2023 10:00 AM Amy Zaragoza RN [facility] [phone] 06/21/2023 3:00 PM (Arrive by 2:45 PM) Mi Neil PA-C Cardiology [phone] 09/17/2023 9:40 AM (Arrive by 9:25 AM) Marycruz Almazan PA-C Dermatology [phone] Camila Thakur, RN documented in this encounter Plan of Treatment Upcoming Encounters Date Type Specialty Care Team Description 02/23/2023 Home Visit [facility] Cinthia Murphy PA-C [address] [place] [address] 02/24/2023 Scheduled Telephone [facility] Barber, [facility] [address] [place] [address] 03/16/2023 Office Visit Family Medicine Rhys Humphrey MD [address] [place] [address] [place] [address] 04/09/2023 Home Visit [facility] Amy Zaragoza, RN [address] [place] [address] 06/21/2023 Office Visit Cardiology Mi Neil PA-C [address] [place] [address] 09/17/2023 Office Visit Dermatology Marycruz Almazan PA-C [address] [place] [address] [place] [address] Health Maintenance Due Date Last Done Comments [...] D LEVEL ONCE IN A LIFETIME-USE SMARTSET# [id number] Completed 06/29/2020, 03/16/2015 Influenza Vaccine (FLU shot) [...] Documents on File Type Date Recorded Patient Custom Wood Stair Builder Expl anation POLST 10/15/2019 3:17 PM POLST POLST 03/05/2019 POLST FORM Advance Directives and Living Will 01/27/2013 LIVING WILL Advance Directives and Living Will 01/27/2013 LIVING WILL Power of Nursing Department Chairperson 01/27/2013 POWER OF A TTORNEY Power of Nursing Department Chairperson 01/27/2013 POWER OF A TTORNEY Healthcare Agents on File Name Relationship Healthcare Agent Relationship Communication Cydney Benito Other - (no specific identity) Second Alternate Health Care Agent Anyi More Adult Child Health Care Roberth r of Nursing Department Chairperson Care Teams Polisher Aluminum Relationship Specialty Start Date End Date Rhys Humphrey MD [address] [place] [address] [place] [address] PCP - General Family Medicine 06/09/21 documented as of this encounter
--- OUTSIDE RECORDS SUMMARY | 2023-08-14 23:37 | External Medical Summary | Summary of Care ---
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 Use as directed. 1 Each 1 0 Active Iron 325 (65 Fe) MG Oral Tablet Take by mouth. 0 Active Cranberry 500 MG Oral Capsule Take 1 Capsule by mouth in the morning and 1 Capsule before bedtime. 50 Cap 0 1 Active Zizvtrh-Hvszopfud-I inc 333-133-5 MG Oral Tablet Take by mouth. 0 Active Famotidine 20 MG Oral Tablet (Pepcid) Take 1 Tab by mouth 2 times a day as needed for Heartburn. 180 Tab 3 1 Active Additional Information Patient taking differently:20 mg Oral BID PRN, Heartburn,Indications: heartburn, Reported on 10/30/2022 Diclofenac Sodium 1 % External Gel (Voltaren)Indicatio ns:Chronic left shoulder pain Apply topically to affected area 2 g in the morning. Apply to L shoulder. 350 g 1 2 Active Additional Information Patient taking differently:2 g Topical Daily(AM), Apply to L shoulder,Indications: pain, Reported on 08/08/2022 Furosemide 40 MG Oral Tablet (Lasix)Indications: fluid [...] Active Clobetasol Propionate 0.05 % External Ointment (Temovate)Indicatio ns:Lichen sclerosus et atrophicus Apply 2x daily to isolated area on left labia that is bothersome until resolved, continue to use Vaseline regularly over entire vagina 60 g 0 2 Active Fluticasone Propionate 50 MCG/ACT Nasal SuspensionIndicatio [...] EVERY DAY 90 Tablet 1 3 Active Meclizine HCl 12.5 MG Oral Tablet (Antivert) Take 1 Tablet by mouth 3 times a day as needed for Dizziness. 30 Tablet 1 3 Active Docusate Sodium 100 MG Oral Capsule (Colace) Take 2 Capsules by mouth in the morning. 0 Active Melatonin 3 MG Oral Capsule Take 1 Capsule by mouth at bedtime. 0 Active Gabapentin 300 MG Oral Capsule (Neurontin)Indicati ons:Peripheral polyneuropathy TAKE ONE CAPSULE BY MOUTH IN THE MORNING and AT NOON and TAKE two CAPSULES AT BEDTIME 120 Capsule 3 3 Active Albuterol Sulfate HFA 108 (90 Base) [...] Additional Information Patient not taking.Reported on 02/13/2023 Ipratropium-Albuter ol 0.5-2.5 (3) MG/3ML Inhalation Solution (Duoneb)Indications :COPD, group D, by GOLD 2017 classification (HCC) Inhale 3 mL via nebulizer every 6 hours as needed for Shortness of Breath or Wheezing. 360 mL 0 3 Active Ramelteon 8 MG Oral Tablet (Rozerem)Indication s:Insomnia, unspecified type TAKE ONE TABLET BY MOUTH AT BEDTIME 30 Tablet 3 3 Active Ramelteon 8 MG Oral Tablet (Rozerem)Indication s:Insomnia, unspecified type TAKE ONE TABLET BY MOUTH AT BEDTIME 30 Tablet 3 3 02/22/20 23 Discontinued documented as of this encounter [...] mRNA, LNP-s, No Pre serve, 2-Dose Series (Make YES! Happen) 07/11/2021,11/14/2020,10/24/2020 Covid-19, Mrna, Lnp-s, Pf, B ivalent Booster, 30 Mcg, IM, 12 yrs and above (Pfizer) 07/21/2022 Pneumococcal Conjugate Vacc, 13 Valent (Prevnar) 03/16/2015 Pneumococcal Conjugate Vacci ne, 20-valent ([id number]) 07/21/2022 Pneumococcal Polysaccharide PPV23 (Pneumovax) 03/05/2019,07/18/2007 Seasonal [...] Telephone Encounter - Ollie Gonzalez MD - 02/21/2023 10:29 AM EDT Signed Prescriptions: Disp Refills Ramelteon 8 MG Oral Tablet (Rozerem) 30 Tab*3 Sig: TAKE ONE TABLET BY MOUTH AT BEDTIME Authorizing Provider: OLLIE GONZALEZ * Telephone Encounter - Isaac Linares [facility] - 02/21/2023 10:18 AM EDT Pending Prescriptions: Disp Refills Ramelteon 8 MG Oral Tablet [Pharmacy Med N*30 Tab*3 Sig: TAKE ONE TABLET BY MOUTH AT BEDTIME * Telephone Encounter - Isaac Linares [facility] - 02/21/2023 10:18 AM EDT Pending Prescriptions: Disp Refills Ramelteon 8 MG Oral Tablet [Pharmacy Med N*30 Tab*3 Sig: TAKE ONE TABLET BY MOUTH AT BEDTIME 02/01/2023 (in office), Visit date not found (telemedicine) 03/16/2023 If no future appointments scheduled, and last appointment is greater than a year ago, please schedule patient for a follow-up appointment Last date the medication was ordered: 10/24/22 Pharmacy: [facility], [address] ZEENAT BHANDARI Is this request for a controlled substance?No [...] Encounters Date Type Specialty Care Team Description 02/21/2023 Home Visit [facility] Sarah Vitale, RN [address] [facility] [place] [address] 02/22/2023 Scheduled Telephone [facility] Radio, Josephine Zhou [address] [place] [address] 02/23/2023 Home Visit [facility] Cinthia Murphy PA-C [address] [place] [address] 03/16/2023 Office Visit Family Medicine Ollie Gonzalez MD [address] [place] [address] [place] [phone] 04/09/2023 Home Visit [facility] Amy Zaragoza RN [address] [place] [address] 09/17/2023 Office Visit Dermatology Marycruz Almazan PA-C [address] [place] [address] [place] [address] Health Maintenance Due Date Last Done Comments Alpha-1 Antitrypsin 1958 DXA Scan 06/11/2020 06/11/2018, 03/02, 02/16/2012, Additional history exists *BISPHONATE OR OTHER ACCEPTABLE MEDICATION NEEDED FOR OSTEOPOROSIS (REFER TO SMARTSET #1146) 01/23/2021 Depression Screening, Annual for Pts 12 and Over 01/18/2022 01/18/2021 GFR 09/26/2023 09/26/2022, 04/01, 03/22/2022, Additional history exists O2 ASSESSMENT COMPLETED IN PAST YEAR FOR COPD 02/14/2024 02/13/2023 Albumin/Creatinine Ratio 04/28/2025 04/28/2022 DTaP,Tdap,and Td Vaccines (3 - Td or Tdap) 09/17/2029 09/17/2019, 08/10/2011, 10/01/2001 Zoster Vaccines Completed 04/25/2020, 08/31, 07/22/2012 VITAMIN D LEVEL ONCE IN A LIFETIME-USE SMARTSET# 18122 Completed 06/29/2020, 03/16/2015 Influenza Vaccine (FLU shot) [...] Documents on File Type Date Recorded Patient Suede Brusher Expl anation POLST 10/15/2019 3:17 PM POLST POLST 03/05/2019 POLST FORM Advance Directives and Living Will 01/27/2013 LIVING WILL Advance Directives and Living Will 01/27/2013 LIVING WILL Power of Teacher Early Childhood Development 01/27/2013 POWER OF A TTORNEY Power of Teacher Early Childhood Development 01/27/2013 POWER OF A TTORNEY Healthcare Agents on File Name Relationship Healthcare Agent Relationship Communication Cydney Benito Other - (no specific identity) Second Alternate Health Care Agent Anyi More Adult Child Health Care Roberth r of Teacher Early Childhood Development Care Teams Product Craftsman Relationship Specialty Start Date End Date Ollie Gonzalez MD [address] [place] [address] [place] [phone] PCP - General Family Medicine 06/09/21 documented as of this encounter
--- OUTSIDE RECORDS SUMMARY | 2023-08-14 23:37 | External Medical Summary | Summary of Care ---
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 360 mL 0 02/01/2023 Active documented as of this encounter (statuses as of 02/18/2023) Active Problems Problem Noted Date Acute serous [...] as of this encounter (statuses as of 02/18/2023) Resolved Problems Problem Noted Date Resolved Date [...] 18 Overview: 11/22/11 -- auto CPAP 5-15 4/17/14 oxygen at 2 LPM with CPAP AHP [...] as of this encounter (statuses as of 02/18/2023) Immunizations Name Administration Dates Next Due COVID-19 mRNA, LNP-s, No Pre serve, 2-Dose Series (DataPad) 07/11/2021,11/14/2020,10/24/2020 Covid-19, Mrna, Lnp-s, Pf, B ivalent Booster, 30 Mcg, IM, 12 yrs and above (DataPad) 07/21/2022 Pneumococcal Conjugate Vacc, 13 Valent (Prevnar) 03/16/2015 Pneumococcal Conjugate Vacci ne, 20-valent ([id number]) 07/21/2022 Pneumococcal Polysaccharide PPV23 (Pneumovax) 03/05/2019,07/18/2007 Seasonal [...] as of this encounter Progress Notes * Liana Nails RN - 02/18/2023 4:26 PM EDT Images from the original note were not included. TC made to pt cell phone, pt main #-- no answer at either. [facility] BP reading/ HR reading taken this am at 6:30am not WNL. Planned to ask if pt can check again atthis time. documented in this encounter Plan of Treatment Upcoming Encounters Date Type Specialty Care Team Description 02/23/2023 Home Visit [facility] Cinthia Murphy PA-C [address] [place] [address] 03/16/2023 Office Visit Family Medicine Rhys Humphrey MD [address] [place] [address] [place] [address] 04/09/2023 Home Visit [facility] Amy Zaragoza RN [address] [place] [address] 09/17/2023 Office Visit Dermatology Marycruz Almazan PA-C [address] [place] [address] [place] [address] Health Maintenance Due Date Last Done Comments Alpha-1 Antitrypsin 1958 DXA Scan 06/11/2020 06/11/2018, 03/02, 02/16/2012, Additional history exists *BISPHONATE OR OTHER ACCEPTABLE MEDICATION NEEDED FOR OSTEOPOROSIS (REFER TO SMARTSET #1146) 01/23/2021 Depression Screening, Annual for Pts 12 and Over 01/18/2022 01/18/2021 GFR - Renal Function 09/26/2023 09/26/2022, 04/28/2022, 03/22/2022, Additional history exists O2 ASSESSMENT COMPLETED IN PAST YEAR FOR COPD 02/14/2024 02/13/2023 Albumin/Creatinine Ratio 04/28/2025 04/28/2022 DTaP,Tdap,and Td Vaccines (3 - Td or Tdap) 09/17/2029 09/17/2019, 08/10/2011, 10/01/2001 Zoster Vaccines Completed 04/25/2020, 08/31, 07/22/2012 VITAMIN D LEVEL ONCE IN A LIFETIME-USE SMARTSET# [id number] Completed 06/29/2020, 03/16/2015 Influenza Vaccine (FLU shot) [...] this encounter Visit Diagnoses Diagnosis 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)- Primary documented in this encounter Advance Directives Documents on File Type Date Recorded Patient Painter Railroad Car Expl anation POLST 10/15/2019 3:17 PM POLST POLST 03/05/2019 POLST FORM Advance Directives and Living Will 01/27/2013 LIVING WILL Advance Directives and Living Will 01/27/2013 LIVING WILL Power of Kayak Maker 01/27/2013 POWER OF A TTORNEY Power of Kayak Maker 01/27/2013 POWER OF A TTORNEY Healthcare Agents on File Name Relationship Healthcare Agent Relationship Communication Cydney Benito Other - (no specific identity) Second Alternate Health Care Agent Anyi More Adult Child Health Care Roberth r of Kayak Maker Care Teams Medical Pathology Teacher Relationship Specialty Start Date End Date Rhys Humphrey MD [address] [place] [address] [place] [address] PCP - General Family Medicine 06/09/21 documented as of this encounter
--- OUTSIDE RECORDS SUMMARY | 2023-08-14 23:37 | External Medical Summary | Summary of Care ---
Author Name Unknown Organization [facility] Address [address] [place] [address] Phone [phone] Care Team Providers Care Wind Energy Engineer Name Role Phone Rhys Humphrey MD Primary Care Provide r Reason for Visit * Reason Onset Date Comments [facility]: Acute 02/21/2023 Encounter Details Date Type Department Care Team Description 02/21/2023 Telephone [facility], [facility] [address] [facility] [place] [address] [facility], Nurse [facility] [address] [facility] [place] [address] [facility]: Acute Allergies Active Allergy [...] before bedtime. 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 Communication Note Name: Keisha Linares Situation: 82 yr old pt lives in [place] calling with c/o increased SOB. O2 sat 87% on RA Background: Hx of HF and COPD Assessment: pt reports increased SOB on exertion. Cough with clear phlegm. Reports chest tightness and wheezing. Weight up 1.5lbs from yesterday. Denies LE edema but does report increased abd bloating. Pt using nebulizer and advised to apply O2 to increase O2 sats. Recommendation: Home visit today [facility] carpet measurer Acute Call Date: 02/21/2023 Time: 10:09 AM Name: Keisha Linares : 1940 Caller: patient Chief Complaint Patient presents with [facility]: Acute HPI: Keisha Linares is a 82 year old female that is calling [facility] Intake to report increased SOB Nursing Assessment: Patient's chief complaint for this call: Situation: 82 yr old pt lives in [place] calling with c/o increased SOB. O2 sat 87% on RA Background: Hx of HF and COPD Assessment: pt reports increased SOB on exertion. Cough with clear phlegm. Reports chest tightness and wheezing. Weight up 1.5lbs from yesterday. Denies LE edema but does report increased abd bloating. Pt using nebulizer and advised to apply O2 to increase O2 sats. Recommendation: Home visit today Pain Denies pain Baseline Assessment Able to performing ADLs at baseline (walking, daily tasks, etc.): No Chief Complaint is related to a chronic condition: Yes Chronic Condition: HF/COPD Chief Complaint is a change in baseline: Yes, increased SOB Patient prescribed oxygen? Yes, 2L at nigt L/min Patient has been ordered DME equipment (assistive devices, respiratory equipment, etc.): Yes Describe DME devices: nebulizer Patient is using DME device as directed: Yes Medication Reconciliation: (See medication list) Taking medication as ordered: Yes Medications ordered/taking to treat reason for call: No Heart failure symptoms: Unknown COPD exacerbation symptoms: Unknown Treatment/Plan: (need to report) Level of call: Acute Appointment scheduled for same day: Yes Mule Tender Provider Name: Sarah Vitale RN Treatment plan until appointment: continue to monitor and call back to [facility] intake with any changes in conditons. Call back instructions provided to patient. documented in this encounter Plan of Treatment Upcoming Encounters Date Type Specialty Care Team Description 02/21/2023 Home Visit [facility] Sarah Vitale RN [address] [facility] [place] [address] 02/22/2023 Scheduled Telephone [facility] Signal Repairer, [facility] [address] [place] [address] 02/23/2023 Home Visit [facility] Cinthia Murphy PA-C [address] [place] [address] 03/16/2023 Office Visit Family Medicine Rhys Humphrey MD [address] [place] [address] [place] [address] 04/09/2023 Home Visit [facility] mAy Zaragoza RN [address] [place] [address] 09/17/2023 Office Visit Dermatology Marycruz Almazan PA-C [address] [place] [address] [place] [address] Health Maintenance Due Date Last Done Comments [...] D LEVEL ONCE IN A LIFETIME-USE SMARTSET# [id number] Completed 06/29/2020, 03/16/2015 Influenza Vaccine (FLU shot) [...] Documents on File Type Date Recorded Patient Stone Banker Expl anation POLST 10/15/2019 3:17 PM POLST POLST 03/05/2019 POLST FORM Advance Directives and Living Will 01/27/2013 LIVING WILL Advance Directives and Living Will 01/27/2013 LIVING WILL Power of Legal Librarian 01/27/2013 POWER OF A TTORNEY Power of Legal Librarian 01/27/2013 POWER OF A TTORNEY Healthcare Agents on File Name Relationship Healthcare Agent Relationship Communication Cydney Benito Other - (no specific identity) Second Alternate Health Care Agent Anyi More Adult Child Health Care Roberth r of Legal Librarian Care Teams Wind Energy Engineer Relationship Specialty Start Date End Date Rhys Humphrey MD [address] [place] [address] [place] [address] PCP - General Family Medicine 06/09/21 documented as of this encounter
--- OUTSIDE RECORDS SUMMARY | 2023-08-14 23:37 | External Medical Summary | Summary of Care ---
Author Name Unknown Organization [facility] Address [address] [place] [address] Phone [phone] Care Team Providers Care Clerk Name Role Phone Rhys Humphrey MD Primary Care Provide r Reason for Visit * Reason Onset Date Comments [facility]: Acute 02/21/2023 Encounter Details Date Type Department Care Team Description 02/21/2023 Telephone [facility], [facility] [address] [facility] [place] [address] [facility], Nurse [facility] [address] [facility] [place] [address] [facility]: Acute Allergies Active Allergy [...] before bedtime. 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 Do all this for 7 days. Take for 7 days. 14 Capsule 0 02/21/2023 Active Hospital, Clinic, or Other Facility Administered Medication Ordered Dose Route Frequency Start Date End Date Status methylPREDNISolone sodium succ (SOLU-Medrol) inj 40 mgIndications:COPD, group D, by GOLD 2017 classification ([facility]),COPD exacerbation (HCC) 40 mg IM ONCE 02/21/2023 02/22/2023 Active documented as of this encounter (statuses [...] (Prevnar) 03/16/2015 Pneumococcal Conjugate Vacci ne, 20-valent ([id number]) 07/21/2022 Pneumococcal Polysaccharide PPV23 (Pneumovax) 03/05/2019,07/18/2007 Seasonal [...] encounter Miscellaneous Notes * Addendum Note - Pamella Beebe DO - 02/21/2023 12:11 PM EDTAddended by: PAMELLA BEEBE on: 02/21/2023 12:11 PM Modules accepted: Orders * Telephone Encounter - Pamella Beebe DO - 02/21/2023 11:48 AM EDT [facility] Remote Medical Command Field Team Outreach Note [facility] Subprogram: Focused Care Management (3-9 months) [facility] Episode Start Date: Noted: 07/31/2022 Staff Contacted [x]manager commercial sales [][facility] Plans Examiner []NOBLE []Home Health Communication Type [x]TigerConnect []Telephone Call []Telemedicine [][facility] Region []Northeast [x]Central []West Interventions Ordered/Recommended (Check All That Apply) []Advice Only []Acute Medication Adjustment []Chronic Medication Adjustment []Labs []Imaging [x]IV/IM Intervention []Referral (HH, Hospice, etc) Avoided ED/Admission [x]Yes []No Recommended Disposition [x]Next Day RNCM Home Visit []Next Day [facility] Home Visit []Acute Provider Visit []Scheduled Follow Up Phone Calls []Follow Up As Already Scheduled []Schedule Routine Follow Up Orders Plan methylPREDNISolone sodium succ (SOLU-Medrol) inj 40 mg Doxycycline Hyclate 100 MG Oral Capsule Additional Comments Symptoms c/w COPD exacerbation. Will treat with Solu-Medrol 40 mg IM today and doxycycline. Follow-up home visit tomorrow to re-evaluate need for repeat dose of Solu- Medrol versus starting oral prednisone To Do: first aid instructor Pool please work on the following: help with coordination of NEXT day carbon blocks press operator visit Pamella Beebe DO Remote Medical Command - [facility] 02/21/2023 Scheduled appointments in the next 60 days: Future Appointments-next 60 days Date/Time Provider Specialty Dept Phone 02/21/2023 12:00 PM Sarah Vitale RN [facility] [phone] 02/22/2023 12:30 PM [facility] Maximiliano Coating Line Worker [facility] [phone] 02/23/2023 2:30 PM Cinthia Murphy PA-C [facility] [phone] 03/16/2023 9:00 AM (Arrive by 8:45 AM) Rhys Humphrey MD Family Medicine [phone] 04/09/2023 10:00 AM Amy Zaragoza RN [facility] [phone] 09/17/2023 9:40 AM (Arrive by 9:25 AM) Marycruz Almazan PA-C Dermatology [phone] * Telephone Encounter - Pamella Beebe DO - 02/21/2023 10:59 AM EDT Agree with visit today. * Telephone Encounter - Abbie Mohr RN - 02/21/2023 10:08 AM EDT Images from the original note were not included. Communication Note Name: Keisha Linares Situation: 82 yr old pt lives in [place] calling with c/o increased SOB. O2 sat 87% on RA Background: Hx of HF and COPD Assessment: pt reports increased SOB on exertion. Cough with clear phlegm. Reports chest tightness and wheezing. Weight up 1.5lbs from yesterday. Denies LE edema but does report increased abd bloating. Pt using nebulizer and advised to apply O2 to increase O2 sats. Recommendation: Home visit today [facility] first aid instructor Acute Call Date: 02/21/2023 Time: 10:09 AM Name: Keisha Linares : 1940 Caller: patient Chief Complaint Patient presents with [facility]: Acute HPI: Keisha Linares is a 82 year old female that is calling [facility] Intake to report increased SOB Nursing Assessment: Patient's chief complaint for this call: Situation: 82 yr old pt lives in [place] calling with c/o increased SOB. O2 sat [...] Acute Appointment scheduled for same day: Yes [address] Provider Name: Sarah Vitale RN Treatment plan until appointment: continue to monitor and call back to [facility] intake with any changes in conditons. Call back instructions provided to patient. documented in this encounter Plan of Treatment Upcoming Encounters Date Type Specialty Care Team Description 02/22/2023 Scheduled Telephone [facility], [address] [place] [address] 02/23/2023 Home Visit [facility] Cinthia Murphy PA-C [address] [place] [address] 03/16/2023 Office Visit Family Medicine Rhys Humphrey MD [address] [place] [address] [place] [address] 04/09/2023 Home Visit [facility] Amy Zaragoza RN [address] [place] [address] 09/17/2023 Office Visit Dermatology Marycruz Almazan PA-C [address] [place] [address] [place] [address] Health Maintenance Due Date Last Done Comments [...] D LEVEL ONCE IN A LIFETIME-USE SMARTSET# [id number] Completed 06/29/2020, 03/16/2015 Influenza Vaccine (FLU shot) [...] D, by GOLD 2017 classification (HCC)- Primary COPD exacerbation (HCC) Obstructive chronic bronchitis with exacerbation documented in this encounter Advance Directives Documents on File Type Date Recorded Patient Career Development Director Expl anation POLST 10/15/2019 3:17 PM POLST POLST 03/05/2019 POLST FORM Advance Directives and Living Will 01/27/2013 LIVING WILL Advance Directives and Living Will 01/27/2013 LIVING WILL Power of Records Clerk 01/27/2013 POWER OF A TTORNEY Power of Records Clerk 01/27/2013 POWER OF A TTORNEY Healthcare Agents on File Name Relationship Healthcare Agent Relationship Communication Cydney Benito Other - (no specific identity) Second Alternate Health Care Agent Anyi More Adult Child Health Care Roberth r of Records Clerk Care Teams Clerk Relationship Specialty Start Date End Date Rhys Humphrey MD [address] [place] [address] [place] [address] PCP - General Family Medicine 06/09/21 documented as of this encounter
--- OUTSIDE RECORDS SUMMARY | 2023-08-14 23:37 | External Medical Summary | Summary of Care ---
Author Name Unknown Organization [facility] Address [address] [place] [address] Phone [phone] Care Team Providers Care Retread Technician Name Role Phone Rhys Humphrey MD Primary Care Provide r Reason for Visit * Reason Onset Date Comments [facility]: Acute 02/21/2023 Encounter Details Date Type Department Care Team Description 02/21/2023 Telephone [facility], [facility] [address] [facility] [place] [address] [facility], Nurse [facility] [address] [facility] [place] [address] [facility]: Acute Allergies Active Allergy [...] before bedtime. 50 Cap 0 01/18/2021 Active Qumiznp-Eiujbhdrx-Th nc 333-133-5 MG Oral Tablet Take by [...] Inhalation Aerosol Powder Breath Activated (umeclidinium-vilant ed)Indications:QUALITY OFFICER D, moderate (HCC),COPD, group D, by [...] mRNA, LNP-s, No Pre serve, 2-Dose Series ([employer]) 07/11/2021,11/14/2020,10/24/2020 Covid-19, Mrna, Lnp-s, Pf, B ivalent Booster, 30 Mcg, IM, 12 yrs and above ([employer]) 07/21/2022 Pneumococcal Conjugate Vacc, 13 Valent (Prevnar) 03/16/2015 Pneumococcal Conjugate Vacci ne, 20-valent ([id number]) 07/21/2022 Pneumococcal Polysaccharide PPV23 (Pneumovax) 03/05/2019,07/18/2007 Seasonal [...] Telephone Encounter - Joe Beebe DO - 02/21/2023 10:59 AM EDT Agree with visit today. * Telephone Encounter - Abbie Mohr RN - 02/21/2023 10:08 AM EDT Images from the original note were not included. Communication Note Name: Keisha Linares Situation: 82 yr old pt lives in [place] calling with c/o increased SOB. O2 sat 87% on RA Background: Hx of HF and COPD Assessment: pt reports increased SOB on exertion. Cough with clear phlegm. Reports chest tightness and wheezing. Weight up 1.5lbs from yesterday. Denies LE edema but does report increased abd bloating. Pt using nebulizer and advised to apply O2 to increase O2 sats. 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 Call back instructions provided to patient. documented in this encounter Plan of Treatment Upcoming Encounters Date Type Specialty Care Team Description 02/21/2023 Home Visit [facility] Sarah Vitale RN [address] [facility] [place] [address] 02/22/2023 Scheduled Telephone [facility], [facility] [address] [place] [address] 02/23/2023 Home Visit [facility] Cinthia Murphy PA-C [address] [place] [address] 03/16/2023 Office Visit Family Medicine Rhys Humphrey MD [address] [place] [address] [place] [address] 04/09/2023 Home Visit [facility] Amy Zaragoza RN [address] [place] [address] 09/17/2023 Office Visit Dermatology Marycruz Almazan PA-C [address] [place] [address] [place] [address] Health Maintenance Due Date Last Done Comments [...] D LEVEL ONCE IN A LIFETIME-USE SMARTSET# [id number] Completed 06/29/2020, 03/16/2015 Influenza Vaccine (FLU shot) [...] Documents on File Type Date Recorded Patient Dress Cutter Expl anation POLST 10/15/2019 3:17 PM POLST POLST 03/05/2019 POLST FORM Advance Directives and Living Will 01/27/2013 LIVING WILL Advance Directives and Living Will 01/27/2013 LIVING WILL Power of Community Relations Manager 01/27/2013 POWER OF A TTORNEY Power of Community Relations Manager 01/27/2013 POWER OF A TTORNEY Healthcare Agents on File Name Relationship Healthcare Agent Relationship Communication Cydney Benito Other - (no specific identity) Second Alternate Health Care Agent Anyi More Adult Child Health Care Roberth r of Community Relations Manager Care Teams Retread Technician Relationship Specialty Start Date End Date Rhys Humphrey MD [address] [place] [address] [place] [address] PCP - General Family Medicine 06/09/21 documented as of this encounter
--- OUTSIDE RECORDS SUMMARY | 2023-08-14 23:37 | External Medical Summary | Summary of Care ---
Author Name Unknown Organization [facility] Address [address] [place] [address] Phone [phone] Care Team Providers Care Client Service Coordinator Name Role Phone Rhys Humphrey MD Primary Care Provide r Reason for Visit * Reason Comments [facility]: Maintenance Encounter Details Date Type Department Care Team Description 02/13/2023 Home Visit [facility], [facility] [address] [facility] [place] [address] Amy Zaragoza RN [address] [facility] [place] [address] Advanced care planning/counseling discussion* Allergies Active Allergy Reactions Severity Noted Date Comments Adhesive Tape Other (Please comment),Hives High 09/29/2008 Caused welts Dextromethorphan-Gua ifenesin Neuro complications (Please comment) Medium 12/23/2021 Feels lightheaded/"foggy" documented as of this encounter (statuses as of 02/15/2023) Medications Medication Sig Dispensed Refills Start Date [...] before bedtime. 50 Cap 0 01/18/2021 Active Mdcutip-Udarnvpyj-Rp nc 333-133-5 MG Oral Tablet Take by [...] MCG/INH Inhalation Aerosol Powder Breath Activated (umeclidinium-vilant ed)Indications:SNUBBER D, moderate (HCC),COPD, group D, by GOLD [...] as of this encounter (statuses as of 02/15/2023) Active Problems Problem Noted Date Acute serous [...] as of this encounter (statuses as of 02/15/2023) Resolved Problems Problem Noted Date Resolved Date [...] as of this encounter (statuses as of 02/15/2023) Immunizations Name Administration Dates Next Due COVID-19 mRNA, LNP-s, No Pre serve, 2-Dose Series ([employer] 07/11/2021,11/14/2020,10/24/2020 Covid-19, Mrna, Lnp-s, Pf, B ivalent Booster, 30 Mcg, IM, 12 yrs and above ([employer] 07/21/2022 Pneumococcal Conjugate Vacc, 13 Valent (Prevnar) 03/16/2015 Pneumococcal Conjugate Vacci ne, 20-valent ([id number]) 07/21/2022 Pneumococcal Polysaccharide PPV23 (Pneumovax) 03/05/2019,07/18/2007 Seasonal [...] Sign Reading Time Taken Comments Blood Pressure 132/60 02/13/2023 5:11 PM EDT Pulse 80 02/13/2023 5:11 PM EDT Temperature 36.6 C (97.8 F) 02/13/2023 5:11 PM ED T Respiratory Rate 16 02/13/2023 5:11 PM EDT Oxygen Saturation 98% 02/13/2023 5:11 PM EDT Inhaled Oxygen Concentration - - Weight - - Height - - Body Mass Index - - documented in this encounter Progress Notes * Amy Zaragoza RN - 02/13/2023 2:30 PM EDT [facility] Crimp Setter Monthly Visit Date: 02/13/2023 Time: 5:10 PM Name: Keisha Linares : 1940 Current Concerns: Patient being seen for routine follow up visit. No new complaints today. Taking all meds as ordered Reviewed self management plan for HF and COPD. Discussed at length red flags to call [facility] with or PCP when graduated from [facility]. Will plan to work towards graduation over next couple of months. Physical Exam: BP 132/60 (BP Site: Left Arm, BP Position: Sitting, BP Cuff Size: Regular) | Pulse 80 | Temp 36.6 C (97.8 F) (Infrared ) | Resp 16 | SpO2 98% Pain 0 Physical Exam Cardiovascular: Rate and Rhythm: Normal rate and regular rhythm. Pulses: Normal pulses. Pulmonary: Effort: Pulmonary effort is normal. Abdominal: General: Bowel sounds are normal. Palpations: Abdomen is soft. Musculoskeletal: Right lower leg: No edema. Left lower leg: No edema. Skin: General: Skin is warm and dry. Neurological: Mental Status: She is alert and oriented to person, place, and time. Psychiatric: Mood and Affect: Mood normal. Behavior: Behavior normal. Thought Content: Thought content normal. Judgment: Judgment normal. Problems/Symptoms: Review of Systems Constitutional: Negative. HENT: Negative. Eyes: Negative. Respiratory: Negative. Cardiovascular: Negative. Gastrointestinal: Negative. Endocrine: Negative. Genitourinary: Negative. Musculoskeletal: Negative. Skin: Negative. Allergic/Immunologic: Negative. Neurological: Negative. Hematological: Negative. Psychiatric/Behavioral: Negative. Medication Reconciliation: (See medication list) Does patient take medications as ordered: Yes Patient Well Being: PHQ2/9: No questionnaires available. MAHC-10 Completed this Visit: No. Routine visit and No falls since last visit Advanced Care Planning: POLST. Reinforcement/Education: Educated on home safety: Create a fall [...] exercises that will be right for you. Reviewed HF symptom monitoring: -Weigh self daily [...] if at night -increased fatigue or vertigo COPD: Pt instructed to: -Call with increased SOB, wheezing, chest tightness, increased cough, increased sputum with change in color or consistency and fever. -Wash hands often -Drink plenty of fluids -Use inhalers as directed, do not stop or skip doses -Avoid stress -Rest when tired or SOB -Avoid triggers -Clean inhalers once a week Reinforced safety education and fall prevention. and Reinforced medication regimen. Timing., Dosing. and Purspose. Treatment/Plan: Continue meds as ordered Fall precautions Daily wts Low sodium diet Inhaled meds as ordered. Flutter valve x 10 after nebs Oxygen/cpap with sleep RNCM return 6-8 weeks Home Interventions Provided: Reinforced current Plan of Care, including self-management and medication regimen Patient Needs to Remember: Call [facility] at with any new or worsening health concerns or problems, red flag symptoms. Referrals Needed: NA Follow Up: Is there cellular connectivity/connectivity in the home? Yes Does the patient have internet in the home? Yes Patient encouraged to call the intake phone number for all urgent but not emergent issues. Is the patient new to [facility] within the last 30 days? No, Assess appropriateness for upcoming telehealth visits. Cancel telehealth visits & schedule home visit with care prepared foods team leader(s)as indicated. Provider is in agreement with Plan of Care: Yes Scheduled to follow up with patient in 6-8 weeks. Amy Zaragoza RN 02/13/2023 5:10 PM documented in this encounter Miscellaneous Notes * ACP (Advance Care Planning) - Amy Zaragoza RN - 02/14/2023 7:15 AM EDT Images from the original note were not included. Patient-centered Communication 02/13/2023 The patient/surrogate voluntarily agreed to participate in advance care planning discussion. They were advised that this is a separate service which may incur out of pocket cost in the form of copayment and/or deductibles. Location: Home Individual(s) present for conversation: Patient Reviewed ACP notes and forms with patient. No changes at this time. Decisions Contains data within 10/23/2022 to 10/23/2022 and each row's most recent data. Newer data is on the left. Synopsis SmartLink Most Recent Value Past ~10 years 10/23/2022 09:37 Decisions CPR decision: Declines CPR 10/23/2022 Declines CPR Intubation/Mechanical Ventilation decision: Declines Intubation/mechanical ventilation 10/23/2022 Declines Intubation/mechanical ventilation Non-invasive ventilation or BIPAP decision: Declines all non-invasive ventilation 03/17/2021 Antibiotic therapy decision: Yes 03/17/2021 Artificial nutrition decision: Declines Artificial nutrition 03/17/2021 IV hydration decision: Patient chooses IV hydration 10/23/2022 Patient chooses IV hydration Blood transfusion decision: Yes 03/17/2021 Lab draw decision: Patient chooses Lab draws 10/23/2022 Patient chooses Lab draws Dying at home decision: Yes 03/17/2021 Additional Comments Contains data within 08/01/2022 to 08/01/2022 and each row's most recent data. Newer data is on the left. Synopsis SmartLink Most Recent Value Past ~10 years 08/01/2022 08:34 Additional Comments Additional Comments: Patient already has her Advance Directives completed. Copy available in chart.No changes need made at this time. 08/01/2022 Patient already has her Advance Directives completed. Copy available in chart. No changesneed made at this time. Discerning What Matters Most to the Patient: Contains data within 08/01/2022 to 08/01/2022 and each row's most recent data. Newer data is on the left. Synopsis SmartLink Most Recent Value Past ~10 years 08/01/2022 08:33 Discerning What Matters Most to the Patient In their own words, patient's UNDERSTANDING of their illness is: Patient understands she has multiple significant medical problems some point may be her demise 03/17/2021 Their current SYMPTOMS include: Pain;Shortnes of breath 08/01/2022 Pain;Shortnes of breath The patient thinks COMPLICATIONS in the future may be: More fatigue;;Prefers information regarding prognosis 03/17/2021 Was PROGNOSIS discussed? Yes 03/17/2021 Prognosis was discussed today as likely to live: Several years 03/17/2021 Progression of illness described as: Relapsing and remitting course 03/17/2021 The patient's HOPES are: Maintain current functional abilities;Avoid further hospitalization;Avoid intubation/mechanical ventilation;Avoid the fdc;Avoid the ICU;Avoid symptoms 03/17/2021 Avoid symptoms include: Pain;Dyspnea;Nausea;Vomiting;Fatigue;Reduced overall well being 03/17/2021 The patient defines LIVING WELL as: She does going on cruises is actually scheduled to go another 1shortly 03/17/2021 The patient's FEARS/WORRIES about illness are: -- No worries 03/17/2021 The patient's PRIOR EXPERIENCES: The patient's spouse E Jeovanny with multiple complications whom shecare during his 03/17/2021 Source: Content from Respecting Choices Program Aligning Care With What Matters Most: Contains data within 10/23/2022 to 10/23/2022 and each row's most recent data. Newer data is on the left. Synopsis SmartLink Most Recent Value Past ~10 years 10/23/2022 09:37 Aligning Care With What Matters Most Interventions/Choices: CPR;IV hydration;Lab draws;Intubation/mechanical ventilation 10/23/2022 CPR;IV hydration;Lab draws;Intubation/mechanical ventilation Rationale for Decisions Source: Content from [employer]pecting Choices Program 10 minutes spent in direct uick-bf-cfnc discussion today, Amy Zaragoza RN documented in this encounter Plan of Treatment Upcoming Encounters Date Type Specialty Care Team Description 02/23/2023 Home Visit [facility] Cinthia Murphy PA-C [address] [place] [address] 03/16/2023 Office Visit Family Medicine Rhys Humphrey MD [address] [place] [address] [place] [address] 04/09/2023 Home Visit [facility] Amy Zaragoza RN [address] [place] [address] 09/17/2023 Office Visit Dermatology Marycruz Almazan PA-C [address] [place] [address] [place] [address] Health Maintenance Due Date Last Done Comments Alpha-1 Antitrypsin 1958 DXA Scan 06/11/2020 06/11/2018, 03/02, 02/16/2012, Additional history exists *BISPHONATE OR OTHER ACCEPTABLE MEDICATION NEEDED FOR OSTEOPOROSIS (REFER TO SMARTSET #1146) 01/23/2021 Depression Screening, Annual for Pts 12 and Over 01/18/2022 01/18/2021 GFR - Renal Function 09/26/2023 09/26/2022, 04/28/2022, 03/22/2022, Additional history exists O2 ASSESSMENT COMPLETED IN PAST YEAR FOR COPD 01/02/2024 01/01/2023 Albumin/Creatinine Ratio 04/28/2025 04/28/2022 DTaP,Tdap,and Td Vaccines (3 - Td or Tdap) 09/17/2029 09/17/2019, 08/10/2011, 10/01/2001 Zoster Vaccines Completed 04/25/2020, 08/31, 07/22/2012 VITAMIN D LEVEL ONCE IN A LIFETIME-USE SMARTSET# [id number] Completed 06/29/2020, 03/16/2015 Influenza Vaccine (FLU shot) [...] as of this encounter Visit Diagnoses Diagnosis Advanced care planning/counseling discussion- Primary Other specified counseling documented in this encounter Advance Directives Documents on File Type Date Recorded Patient Hotel Or Motel Manager Expl anation POLST 10/15/2019 3:17 PM POLST POLST 03/05/2019 POLST FORM Advance Directives and Living Will 01/27/2013 LIVING WILL Advance Directives and Living Will 01/27/2013 LIVING WILL Power of Grab Jack Worker 01/27/2013 POWER OF A TTORNEY Power of Grab Jack Worker 01/27/2013 POWER OF A TTORNEY Healthcare Agents on File Name Relationship Healthcare Agent Relationship Communication Cydney Benito Other - (no specific identity) Second Alternate Health Care Agent Anyi More Adult Child Health Care Roberth r of Grab Jack Worker Care Teams Client Service Coordinator Relationship Specialty Start Date End Date Rhys Humphrey MD [address] [place] [address] [place] [address] PCP - General Family Medicine 06/09/21 documented as of this encounter
--- OUTSIDE RECORDS SUMMARY | 2023-08-15 00:32 | External Medical Summary ---
Author Name Unknown Address Unknown Organization K01:LABORATORY [facility] [place] - [address] [facility] [address] [place] [id number] Laboratory Report Ordering Provider Test Date Status PADMINI XIE 08/10/2023 13:13:00 Final Observation Date Value Abnormality Reference (Units) Status Bacteria identified in Specimen by Culture 08/10/2023 13:13:00 [id number]^MORAXELLA CATARRHALIS Abnormal Final >100,000 colonies/mL Moraxel la catarrhalis Gram Stain 08/10/2023 13:13:00 Many Polymorphonuclear leukoc ytes Abnormal Final Gram Stain 08/10/2023 13:13:00 Many Gram negative diplococci Abnormal Final Test: Culture, Bronchial, Qu antitative
Specimen Source: Lung, Left lower lobe
Specimen Type: Bronchoalveolar Lavage (BAL)
Specimen Date: 08/10/2023 1:13 PM
Result Date: 08/12/2023 2:55 PM
Result Status: Final result
Abnormal: Yes
Resulting Lab: [facility]
[address]
[place] [address]

CULTURE

>100,000 colonies/mL Moraxella catarrhalis (Abnormal)

STAIN

Many Polymorphonuclear leukocytes

Many Gram negative diplococci

null Performing Location LABORATORY [facility] [place] - [address] [facility] [address]
--- OUTSIDE RECORDS SUMMARY | 2023-08-15 00:32 | External Medical Summary ---
Author Name Unknown Address Unknown Organization [id number]:LABORATORY [facility] [place] - [address] [facility] [address] [place] [address] Laboratory Report Ordering Provider Test Date Status PADMINI XIE 08/10/2023 13:12:00 Correction Observation Date Value Abnormality Reference (Units) Status Bacteria identified in Specimen by Culture 08/10/2023 13:12:00 [id number]^MORAXELLA CATARRHALIS Abnormal Final >100,000 colonies/mL Moraxel la catarrhalis Gram Stain 08/10/2023 13:12:00 Moderate Polymorphonuclear le ukocytes Abnormal Final Gram Stain 08/10/2023 13:12:00 Many Gram negative diplococci Abnormal Final Test: Culture, Bronchial, Qu antitative
Specimen Source: Lung
Specimen Type: Bronchial Washing
Specimen Date: 08/10/2023 1:12 PM
Result Date: 08/12/2023 3:01 PM
Result Status: Edited Result - FINAL
Abnormal: Yes
Resulting Lab: [facility]
[address]
[place] [address]

CULTURE

>100,000 colonies/mL Moraxella catarrhalis (Abnormal)

STAIN

Moderate Polymorphonuclear leukocytes

Many Gram negative diplococci

null Performing Location LABORATORY [facility] [place] - [address] [facility] [address]
--- OUTSIDE RECORDS SUMMARY | 2023-08-15 00:32 | External Medical Summary ---
Author Name Unknown Address Unknown Organization [id number]:[facility] [place] - [address] [facility] [place] [id number] Laboratory Report Ordering Provider Test Date Status PADMINI XIE 08/10/2023 13:15:00 Final Observation Date Value Abnormality Reference (Units) Status Bacteria identified in Specimen by Culture 08/10/2023 13:15:00 [id number]^MORAXELLA CATARRHALIS Abnormal Final 10,000 to 100,000 colonies/m L Moraxella catarrhalis Gram Stain 08/10/2023 13:15:00 Moderate Polymorphonuclear le ukocytes Abnormal Final Gram Stain 08/10/2023 13:15:00 Moderate Gram negative diploc occi Abnormal Final Test: Culture, Bronchial, Qu antitative
Specimen Source: Lung, Left upper lobe
Specimen Type: Bronchoalveolar Lavage (BAL)
Specimen Date: 08/10/2023 1:15 PM
Result Date: 08/12/2023 2:55 PM
Result Status: Final result
Abnormal: Yes
Resulting Lab: [facility]
[address] [facility] [address]
[facility] [address]

CULTURE

10,000 to 100,000 colonies/mL Moraxella catarrhalis (Abnormal)

STAIN

Moderate Polymorphonuclear leukocytes

Moderate Gram negative diplococci

null Performing Location [facility] [address] [facility] [address]
--- OUTSIDE RECORDS SUMMARY | 2023-08-15 00:33 | External Medical Summary ---
Author Name Unknown Address Unknown Organization K01:[facility] [place] - [address] [facility]. [place] [address] Laboratory Report Ordering Provider Test Date Status PADMINI XIE 08/10/2023 13:11:00 Final Observation Date Value Abnormality Reference (Units) Status Bacteria identified in Specimen by Culture 08/10/2023 13:11:00 [id number]^MORAXELLA CATARRHALIS Abnormal Final <10,000 colonies/mL Moraxell a catarrhalis Gram Stain 08/10/2023 13:11:00 Few Polymorphonuclear leukocy rao Final Gram Stain 08/10/2023 13:11:00 Few Gram negative diplococci Final Test: Culture, Bronchial, Qu antitative
Specimen Source: Lung, Right upper lobe
Specimen Type: Bronchoalveolar Lavage (BAL)
Specimen Date: 08/10/2023 1:11 PM
Result Date: 08/12/2023 2:49 PM
Result Status: Final result
Abnormal: Yes
Resulting Lab: [facility] [place]
[address] [facility] [address]
[facility] [address]

CULTURE

<10,000 colonies/mL Moraxella catarrhalis (Abnormal)

STAIN

Few Polymorphonuclear leukocytes

Few Gram negative diplococci

null Performing Location [facility] [place] - [address] [facility] [address] [facility] [address]
[2023-08-15] MEDS: ALBUT/IPRATROP 3MG/0.5MG NEB 3 ML VIAL NEB SCH ×4 (02:46→14:47)
[2023-08-15] MEDS ORDERED: cefTRIAXone SODIUM 2,000 MG in DEXTROSE 5 % MINI-B 50 ML IV SCH (06:00)
[2023-08-15 08:15] LABS: Basophils # (auto) 0.07 K/uL (0.00-0.20); Basophils % (auto) 1.1 %; Eosinophils # (auto) 0.75 K/uL (0.00-0.50); Hematocrit (blood only) 29.8 % (37.0-47.0); Hemoglobin 9.1 g/dl (12.0-16.0); Immature Granulocytes # (auto) 0.01 K/uL (0.01-0.20); Immature Granulocytes % (auto) 0.2 %; Lymphocytes # (auto) 1.09 K/uL (1.20-3.40); Lymphocytes % (auto) 17.5 %; Mean Corpuscular Hemoglobin 26.2 pg (25.0-34.0); Mean Corpuscular Hgb Conc 30.5 g/dL (32.0-36.0); Mean Corpuscular Volume 85.9 fL (80.0-100.0); Monocytes # (auto) 0.76 K/uL (0.11-0.59); Monocytes % (auto) 12.2 %; Neutrophils # (auto) 3.55 K/uL (1.40-6.50); Platelet Count 426 K/uL (130-400); RDW Coefficient of Variation 13.2 % (11.5-14.5); RDW Standard Deviation 41.7 fL (36.4-46.3); Red Blood Count 3.47 M/uL (4.20-5.40); White Blood Count 6.23 K/ul (4.8-10.8)
[2023-08-15 08:50] LABS: Albumin Globulin Ratio 1.2 (0.9-2); Albumin Level 3.5 gm/dl (3.4-5.0); BUN Creatinine Ratio 18.7 (10-20); Bilirubin,Total 0.2 mg/dl (0.2-1.0); Calcium 9.4 mg/dl (8.6-10.3); Creatinine Clr Calc Pharmacy 50.2 ml/min; Est GFR (African American) 84.8 ml/min; Est GFR (Non-African American) 73.2 ml/min; Globulin 2.9 gm/dl (2.5-4.0); Phosphorus 4.2 mg/dl (2.5-4.9); Potassium 3.9 mmol/L (3.5-5.1); Total Protein 6.4 gm/dl (6.0-8.3)
[2023-08-15] MEDS: CALCIUM CITRATE 950 MG TAB PO SCH ×2 (09:47→13:00)
[2023-08-15] MEDS: ATORVASTATIN 40 MG TAB PO SCH (09:47)
[2023-08-15] MEDS: UMECLIDINIUM/VILANTEROL 62.5/25MCG 7 PUFFS/INHALER INH SCH (09:47)
[2023-08-15] MEDS: FERROUS SULFATE 325 MG TAB PO SCH (09:47)
[2023-08-15] MEDS: LOSARTAN POTASSIUM 50 MG TAB PO SCH (09:47)
[2023-08-15] MEDS: FLUTICASONE PROPIONATE NA SPR 16 GM BTL NAE SCH (09:47)
[2023-08-15] MEDS: CLOPIDOGREL BISULFATE 75 MG TAB PO SCH (09:47)
[2023-08-15] MEDS: FLUTICASONE FUROATE 100MCG 14 PUFFS/INHALER INH SCH (09:47)
[2023-08-15] MEDS: MONTELUKAST SODIUM 10 MG TABLET PO SCH (09:47)
[2023-08-15] MEDS: FUROSEMIDE 40 MG TAB PO SCH (09:47)
[2023-08-15] MEDS: ASPIRIN 81 MG ECTAB PO SCH (09:47)
[2023-08-15] MEDS: PANTOprazole 40 MG TAB PO SCH (09:47)
[2023-08-15] MEDS: LORATADINE 10 MG TAB PO SCH (09:48)
--- NOTE | 2023-08-15 14:14 | Discharge Summary ---
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 Daughter and granddaughter at bedside, providing some of the history. They state that she had a bronchoscopy 2 days ago at [facility] for noted lung changes that they are aware of. Notes she was wheeled back after getting into the PACU after the procedure as she had a coughing fit and hypoxic episodes then as well. Was given antibiotics to take at home. States she took 2 doses of the Augmentin. However the coughing fits persist and hurt her ribs. Needs to use a pillow to help. Also gets some relief from tessalon pearles. Notes she smoked from age 14 and quit in 2003, continued to be around second hand smoke. 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 Notes she does not use oxygen at home and never qualified for it. States that she was told she needs it now. Hx of ISELA but states her cpap machine was recalled. Currently being worked up by pulmonology. Admission Exam Per Admitting Provider General: Alert, oriented. No acute distress Skin: No noted rashes or bruises Psych: Appropriate mood and affect Neuro: No gross deficits HEENT: NC/AT Chest: Nontender to palpation. CV: RRR, blowing murmur appreciated Resp: Breath sounds with wheezing bilaterally, no increased effort of breathing on 4L NC Abdomen: Soft, nontender, nondistended. Extremities: edema in lower extremities bilaterally. 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 Acute hypoxic Respiratory failure s/p bronchoscopy 08/10/2023 Aspiration Pneumonia Per pt and family, had bronch on 08/10, with coughing fit and hypoxia when waking up from anesthesia Was discharged with Augmentin, had taken two doses with persistent cough hurting her ribs Does not use oxygen at baseline, hypoxic to the 80s in the ambulance and ED CT chest concerning for malignancy, noted possible aspiration pneumonia/pneumonitis and mediastinal lymphadenopathy, no PE EPIC chart review notes bronchial culture growing > 100, 000 colonies of moraxella catarrhalis. Surgical pathology was still in process at that time. Was on Zosyn for 2 days, de-escalated to rocephin per recommendations from pulmonology. Supplement oxygen as needed- wean as tolerated. 2 step ordered in anticipation of discharge needs, determined pt needed 2L oxygen for discharge. Pulmonology consult- appreciate recs -deescalate abx to rocephin after reviewing images -f/u with pt's office clerk routine in 1 week after discharge CHF, diastolic BNP elevated to 259 hs-trop slightly elevated slightly at 14 on admission, flattened EPIC chart review shows echo in July 2023 with no significant change from her last, noted valvular pathology Repeat echo with no significant change, EF 50-55% Cardiology follow up after discharge ISELA Not currently on CPAP at home Pulmonology follow up Hx of carotid endarterectomy Follows with Vascular surgery Continue aspirin and plavix Continue other home medications as prescribed. Discharge Exam General: Alert, oriented. No acute distress Skin: No noted rashes or bruises Psych: Appropriate mood and affect Neuro: No gross deficits HEENT: NC/AT Chest: Nontender to palpation. CV: RRR, blowing murmur appreciated Resp: Breath sounds with coarseness bilaterally, coughs with deep breaths Abdomen: Soft, nontender, nondistended. Extremities: edema in lower extremities bilaterally. Updated Medication List Medication Instructions Recorded Confirmed Type albuterol sulfate 90 mcg/actuation 2 puff inhalation Q4 PRN Shortness 09/18/19 08/12/23 History aerosol inhaler Of Breath Or Wheezing atorvastatin 40 mg tablet (Lipitor) 40 mg PO QAM 09/18/19 08/12/23 History montelukast 10 mg tablet 10 mg PO QAM 09/18/19 08/12/23 History (Singulair) omega 8-nid-fpt-fish oil 1,000 mg 1 cap PO QAM 09/18/19 08/12/23 History (120 mg-180 mg) capsule (Fish Oil) furosemide 40 mg tablet 40 mg PO QAM 03/09/21 08/12/23 History ferrous sulfate 325 mg (65 mg 325 mg PO DAILY 07/03/22 08/12/23 History iron) tablet,delayed release acetaminophen 325 mg tablet 325 mg PO Q6H PRN Pain 08/12/23 08/12/23 History (Tylenol) aspirin 81 mg tablet,delayed 81 mg PO DAILY 08/12/23 08/12/23 History release benzonatate 100 mg capsule 100 mg PO TID PRN Cough 08/12/23 08/12/23 History gbddgaa-evoiiiion-imuk 333 mg-133 1 tab PO DAILY 08/12/23 08/12/23 History mg-5 mg tablet clobetasol 0.05 % topical cream 1 applic topical DIRECTED 08/12/23 08/12/23 History clopidogrel 75 mg tablet (Plavix) 75 mg PO DAILY 08/12/23 08/12/23 History conjugated estrogens 0.625 mg/gram 500 mg vaginal 2XWK 08/12/23 08/12/23 History vaginal cream (Premarin) cranberry 500 mg capsule 500 mg PO BID 08/12/23 08/12/23 History diclofenac sodium 1 % topical gel 2 g topical DAILY PRN SHOULDER PAIN 08/12/23 08/12/23 History docusate sodium 100 mg capsule 200 mg PO BID PRN Constipation 08/12/23 08/12/23 History famotidine 20 mg tablet (Pepcid) 20 mg PO BID PRN Heartburn 08/12/23 08/12/23 History fluticasone furoate 100 1 inh inhalation DAILY 08/12/23 08/12/23 History mcg/actuation blister powder for inhalation (Arnuity Ellipta) fluticasone propionate 50 2 spray intranasal DAILY 08/12/23 08/12/23 History mcg/actuation nasal spray,suspension gabapentin 300 mg capsule 900 mg PO HS 08/12/23 08/12/23 History ipratropium 0.5 mg-albuterol 3 mg 3 ml inhalation Q6H PRN Shortness 08/12/23 08/12/23 History (2.5 mg base)/3 mL nebulization Of Breath Or Wheezing soln loratadine 10 mg tablet (Claritin) 10 mg PO DAILY 08/12/23 08/12/23 History losartan 50 mg tablet 50 mg PO DAILY 08/12/23 08/12/23 History meclizine 12.5 mg tablet 12.5 mg PO TID PRN Dizziness 08/12/23 08/12/23 History menthol 0.44 %-zinc oxide 20.6 % 1 applic topical QID PRN AFFECTED 08/12/23 08/12/23 History topical ointment (Calmoseptine) AREA-VAGINAL AREA yujvoejjyqjr-zffzfoic-fvmusx tablet 1 tab PO DAILY 08/12/23 08/12/23 History pantoprazole 40 mg tablet,delayed 40 mg PO DAILY 08/12/23 08/12/23 History release ramelteon 8 mg tablet 8 mg PO HS 08/12/23 08/12/23 History umeclidinium 62.5 mcg-vilanterol 1 inh inhalation DAILY 08/12/23 08/12/23 History 25 mcg/actuation powdr for inhalation (Anoro Ellipta) cefdinir 300 mg capsule 300 mg PO BID #14 caps 08/15/23 Rx hydrocodone-homatropine 5 mg-1.5 5 ml PO Q6H PRN cough #473 mL 08/15/23 Rx mg/5 mL oral syrup (Hydromet) Hospital Stay Data Consultations 08/12/23 19:24 ED Decision to Admit Stat 08/12/23 22:23 Consult Pulmonology Routine 08/13/23 12:21 Consult Pulmonology Routine Diagnostic Imagining Performed 08/12/23 14:51 CT for pulmonary embolism PE [CT angio chest PE protocol] Stat Chest X-Ray 08/12/23 14:44 XR chest 1V portable HISTORY: Dyspnea COMPARISON: Chest 07/12/2022. FINDINGS: No pneumothorax. Emphysema again noted. The heart is mildly enlarged. There is progressive interstitial thickening. The bones are osteopenic. There are patchy bibasilar densities most pronounced on the left. Suspect a trace left pleural effusion. IMPRESSION: 1. Interstitial thickening with patchy bibasilar densities most pronounced on the left. This could represent a pneumonia or mild pulmonary edema. 2. The cardiac silhouette is mildly enlarged. 3. Emphysema. ACT 112: Negative or not required by law. Electronically signed by: Pa Byrne M.D. 08/12/2023 3:29 PM Chest CTA 08/12/23 14:51 CHEST CTA for PULMONARY ARTERIES CT DOSE: 452.6 mGy.cm HISTORY: Cough. Shortness of breath. TECHNIQUE: Multiaxial CT images of the chest were performed following the intravenous administration of contrast to evaluate the pulmonary arteries. 3D/Maximal intensity projection images were also obtained. Sagittal and coronal reformations were also reviewed. A dose lowering technique was utilized adhering to the principles of ALARA. COMPARISON STUDY: None. FINDINGS: Calcified plaque within the normal caliber thoracic aorta. No evidence for an aortic dissection. The heart is mildly enlarged. No pleural or pericardial effusions. No filling defects within the pulmonary arteries to suggest a pulmonary embolus. No suspicious lytic are blastic osseous lesions. Limited views of the upper abdomen demonstrate normal liver, spleen, and adrenal glands. There is a 1 cm right thyroid nodule. There is mediastinal and bilateral hilar lymphadenopathy. This is most pronounced within the left hilum which demonstrates lobular soft tissue thickening within infrahilar location suspicious for lymphadenopathy/mass. Dominant right paratracheal lymph node measures 3.7 cm. No pneumothorax. Emphysema. Opacification of the proximal left lower lobe bronchi with partial opacification of the distal left lower lobe and right lower lobe bronchi. Mild bronchial wall thickening is noted. There is an 8 mm irregular nodule within the left upper lobe on image 167. Consolidation throughout the majority of the base of the left lower lobe. Nodular thickening is seen along the left lower lobe bronchovascular bundles. This is concerning for underlying malignancy. There are few tree-in-bud nodular opacities within the base of the right upper lobe with patchy groundglass densities. This favors a low-grade pneumonitis. IMPRESSION: 1. No evidence for a pulmonary embolus. 2. Mediastinal and bilateral hilar lymphadenopathy most pronounced on the left. There is also lobular masslike thickening within the left infrahilar location as described above. This is highly suspicious for an underlying malignancy. 2. Consolidation within the base of the left lower lobe with partial opacification of the left lower lobe bronchi. This could be due to postobstructive pneumonitis or an aspiration pneumonitis. There are also a few tree-in-bud nodular opacities within the base of the right lower lobe consistent with a bronchiolitis. 4. An 8 mm irregular nodule within the left upper lobe. This could represent a metastatic focus. Follow-up recommended to assess for stability. ACT 112: Negative or not required by law. Electronically signed by: Pa Byrne M.D. 08/12/2023 5:32 PM Pending Results Patient Have Any Pending Studies at Discharge: No Discharge Instructions Given to Patient (Per Discharging Provider) Ms. Linares, We admitted you with concerns for a cough related to a pneumonia in your lungs. You are being worked up by your office clerk routine for other findings in your lungs and we recommend close followup with him after discharge. You saw a office clerk routine here and they are recommending discharge with antibiotics and that you follow up with your office clerk routine in 1 week. We discharged you with seven more days of the antibiotic cefdinir (similar to the antibiotic ceftriaxone pulmonology recommended) and the cough syrup Hycodan to help with your cough. We tested you and determined that you needed 2L of oxygen at rest and with ambulation. We will help you obtain oxygen for use at home. We ask that you keep close followup with your primary care provider and your office clerk routine as noted above. Should your symptoms worsen or return, please do not hesitate to return to the emergency room. It was a pleasure taking care of you during your time here! Total Time Total Time Spent Total Time Spent (In Minutes): >30 minutes
--- NOTE | 2023-08-17 09:30 | Coding Query ---
CODING QUERY To promote full compliance with coding requirements relating to patient care, provider participation is requested in all cases of digital strategist senior manager uncertainty. Please assist us with the question(s) below: Coding Question(s): There is documentation in the record of, " Acute hypoxic Respiratory failure s/p bronchoscopy 08/10/2023 Aspiration Pneumonia", and, "CT chest concerning for malignancy, noted possible aspiration pneumonia/pneumonitis and mediastinal lymphadenopathy, no PE EPIC chart review notes bronchial culture growing > 100, 000 colonies of moraxella catarrhalis. Surgical pathology still in process", and the 08/14 Pulmonology Progress Note documents, "Prior chest CT from a month ago reviewed which did not show LLL consolidation that is seen on this admission. Bronchoscopy report also reviewed today which showed an obstruction lesion in proximal LB6. Give these information we now understand her current symptoms are likely a result of post-obstructive pneumonia from a recently discovered endobronchial lesion in the left lower lobe. This would not change our current management which is to continue antibiotics. And because she is clinically improving and all cultures are NGTD consider deescalating zosyn to ceftriaxone. She can be discharged when ready per primary team on oral antibiotics. She should then follow up with her linting machine operator in a week. ". Please specify below, in your clinical opinion, regarding Pneumonia and the type(s) of Pneumonia: ( x ) Most likely Postobstructive Pneumonia from a recently discovered endobrachial lesion in the left lower lobe. Please Specify, further, in your clinical opinion, the possible type(s) of Pneumonia: ( x ) Aspiration Pneumonia ( x ) Pneumonia, likely due to Moraxella Catarrhalis ( ) Pneumonia, Other: Please Specify ( ) Pneumonia, Unspecified ( ) Most Likely Postoperative Pneumonia - Complication from the Bronchoscopy with Biopsies. Please Specify, further, in your clinical opinion, the possible type(s) of Pneumonia: ( ) Aspiration Pneumonia ( ) Pneumonia, likely due to Moraxella Catarrhalis ( ) Pneumonia, Other: Please Specify ( ) Pneumonia, Unspecified ( ) Most Likely Other Pneumonia: Please Specify Physician's Response(s): Thank you Laurita Don Principal Diagnosis: "that condition established after study, to be chiefly responsible for occasioning the admission of the patient to the hospital for care." Co-Existing Principal Diagnosis: "when two or more diagnoses equally meet the criteria for principal diagnosis as determined by the circumstances of admission, diagnostic work up, and/or therapy provided, and the Alphabetic Index, Tabular List, or another coding guideline does not provide sequencing direction, any one of the diagnoses may be sequenced first." "When the physician has documented what appears to be a current diagnosis in the body of the record, but has not included the diagnosis in the final diagnostic statement, the physician should be asked whether the diagnosis should be added." (Source Coding Clinic 2 QTR90. p3-4) HILDA
== END 2023-08-15 16:18 | disposition home health service (06) | DRG 177 ==
LOC: ED 14:29 → EDINP 19:23 → 1E 22:24 → 2S 08-14 14:04

== ENCOUNTER 2023-10-29 06:09 | Inpatient (IN) ==
--- OUTSIDE RECORDS SUMMARY | 2023-10-29 06:19 | External Medical Summary | Summary of Care ---
Author Name Unknown Organization [facility] Address [address] [place] [address] Phone [phone] Care Team Providers Care Stretcher And Drier Name Role Phone Ollie Gonzalez MD Primary Care Provide r Reason for Visit * Reason Onset Date Comments Advice 10/16/2023 Encounter Details Date Type Department Care Team (Late st Contact Info) Description 10/16/2023 Telephone [facility], [facility] [place] [address] [place] [address] Amy Zaragoza, RN [address] [place] [address] Advice Allergies Active Allergy Reactions Criticality Noted Date Comments Adhesive Tape Other (Please comment),Hives High 09/29/2008 Caused welts Dextromethorphan-Gu aifenesin Neuro complications (Please comment) Medium 12/23/2021 Feels lightheaded/"foggy" documented as of this encounter (statuses as of 10/17/2023) Medications Medication Sig Dispensed Refills Start Date End Date Status FISH OIL 1000 MG PO CAPS Take 1,200 mg by mouth in the morning. 0 Active Multiple Vitamins-Minerals (CENTRUM SILVER 50+WOMEN) TABS Take 1 Tab by mouth daily. 0 Active oxygen GASIndications:ISELA on CPAP 2.5 LPM bled through cpap. 1 Each 0 08/22/2019 Active DIURETIC TITRATION PLAN If no improvement on day 3, contact heart failure managing provider. 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 Use as directed. 1 Each 1 11/17/2019 Active Iron 325 (65 Fe) MG Oral Tablet Take 1 Tablet by mouth daily. 0 Active Cranberry 500 MG Oral Capsule Take 1 Capsule by mouth in the morning and 1 Capsule before bedtime. 50 Cap 0 01/18/2021 Active Fdbnvrw-Lrvahrkqx-Y inc 333-133-5 MG Oral Tablet Take 1 Tablet by mouth daily. 0 Active Aspirin 81 MG Oral Tablet Chewable Take 1 Tablet by mouth in the morning. 0 Active Fluticasone Propionate 50 MCG/ACT Nasal SuspensionIndicatio ns:Dysfunction of both eustachian tubes Administer 2 Sprays into each nostril in the morning. 16 g 3 10/06/2022 Active Docusate Sodium 100 MG Oral [...] 2017 classification ([facility]) Inhale 3 mL via nebulizer every 6 hours as needed for Shortness of Breath or Wheezing. 360 mL 3 03/22/2023 Active Diclofenac Sodium 1 % External Gel [...] for Heartburn. 180 Tablet 1 07/06/2023 Active Additional Information Patient taking differently:20 mg OralBID (.AM/PM), Reported on 08/18/2023 Losartan Potassium 50 MG Oral Tablet (Cozaar)Indications [...] for Cough. 30 Capsule 0 08/09/2023 Active HYDROcodone Bit-Homatrop MBr 5-1.5 MG/5ML Oral Solution (Hydromet) Take 5 mL by mouth every 6 hours as needed for Cough. 0 Active Fluticasone Furoate 100 MCG/ACT Inhalation Aerosol Powder Breath Activated (ARNUITY ellipta)Indications :COPD, moderate (HCC),COPD, group D, by GOLD 2017 classification (HCC) Inhale 1 Puff by mouth in the morning. In addition to anoro. 30 Each 08/20/2023 Active Anoro Ellipta 62.5-25 MCG/ACT Inhalation Aerosol Powder Breath Activated (umeclidinium-vilan terol)Indications:C OPD, moderate (HCC),COPD, group D, by GOLD 2017 classification (HCC) Inhale 1 Puff by mouth in the morning. 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 30 Tablet 5 09/20/2023 Active Additional Information Patient not taking.Reported on 10/16/2023 Ondansetron HCl 8 MG Oral TabletIndications:S mall cell neuroendocrine carcinoma of lung (HCC),Metastasis to mediastinal lymph node (HCC) Take 1 Tablet by mouth every 8 hours as needed for Nausea. 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 Acute respiratory failure with hypoxia Acute serous otitis media 01/01/2023 Nontoxic multinodular [...] as of this encounter (statuses as of 10/17/2023) Resolved Problems Problem Noted Date Diagnosed Date [...] 17 Cancer Staging:Clinical:Stage III- Signed by Martínez Lpoes MD on 11/16/2014 Pathologic: Unsigned TIA (transient ischemic attack) 06/24/2018 documented as of this encounter (statuses as of 10/17/2023) Immunizations Name Administration Dates Next Due COVID-19 mRNA, LNP-s, No Pre serve, 2-Dose Series ([employer]) 07/11/2021,11/14/2020,10/24/2020 Covid-19, Mrna, Lnp-s, Pf, B ivalent, 30 Mcg, IM, 12 yrs and above ([employer]) 07/21/2022 Pneumococcal Conjugate Vacc, 13 Valent (Prevnar) 03/16/2015 Pneumococcal Conjugate Vacci ne, 20-valent (Suxeveo21) 07/21/2022 Pneumococcal Polysaccharide PPV23 (Pneumovax) 03/05/2019,07/18/2007 Season Influenza, Quad, PF, Adjuvanted, 65+ Yrs, IM (FLUAD) 06/16/2020 Seasonal Influenza, PF, 6 M & above, IM , (FluLaval or Fluzone) 06/28/2018,07/28/2017 Seasonal Influenza, Quadriva lent Hd (Fluzone [...] Telephone Encounter - Amy Zaragoza RN - 10/17/2023 1:22 PM EST horse stud manager- can you please notify pt of PCP recommendations to restart baby ASA? Thank you * Addendum Note - Ollie Gonzalez MD - 10/17/2023 10:11 AM ESTAddended by: OLLIE GONZALEZ on: 10/17/2023 10:11 AM Modules accepted: Orders * Telephone Encounter - Ollie Gonzalez MD - 10/17/2023 10:06 AM EST Regarding pt;s losartan - pt supposed to take 100mg daily - I am okay with pt taking 50mg BID Regarding anti-platet - it was put on hold due to anemia (per chart review) - last hgb was 9.2 (improving) - due to pt's hx of PAD (carotid artery stenosis s/p CEA), TIA I recommend that we restart aspirin only - repeat cbc in 2 weeks (already ordered) - pt is already on protonix * Telephone Encounter - Amy Zaragoza RN - 10/16/2023 11:19 AM EST Images from the original note were not included. Pt was seen for follow up [facility] visit today. When reviewing medications in pre-filled pill packs from [facility], the following discrepancies were noted. Asa 81 mg po daily and Plavix 75 mg daily are in her EPIC med list, but not in her pill packs. I see an encounter from August that both were held temporarily due to concerns of worsening anemia. Should these be discontinued or continue to hold? Also, Losartan 50 mg bid is in her pill packs , but [facility] says only once daily. She monitors her blood pressure daily with [facility] cuff. See readings below. BP Readings from Last 8 Encounters: 10/04/23 148/58 10/03/23 122/48 10/02/23 136/77 09/28/23 136/64 09/21/23 102/56 09/14/23 108/57 08/22/23 128/58 08/21/23 112/58 documented in this encounter Plan of Treatment Upcoming Encounters Date Type Department Care Team (Late st Contact Info) Description 10/22/2023 4:00 PM EST Home Visit [facility] [place] [address] [place] [address] Sarah Vitale, RN [address] [place] [address] 10/23/2023 12:00 PM EST Scheduled Telephone [facility], [facility] [address] [facility] [place] [address] Lovely Bravo, RDN [address] [facility] [place] [address] 10/30/2023 8:00 AM EST Laboratory Laboratory [facility] [address] [place] [phone] Apple, Lab Scenery [address] [facility] [place] [address] 10/30/2023 8:30 AM EST Office Visit Hematology/Oncology [facility] [place] [address] [facility] [place] [address] Gris Diaz CRNP [address] [place] [address] 10/30/2023 9:00 AM EST Hem/Onc Treatment [facility] [place] [facility] [address] Apple, Chair 6 Hem Onc Scenery [address] [facility] [place] [address] 10/31/2023 1:00 PM EST Hem/Onc Treatment [facility] [place] [facility] [address] Apple, Chair 6 Hem Onc Scenery [address] [facility] [place] [address] 11/01/2023 1:00 PM EST Hem/Onc Treatment Hematology/Oncology Treatment, [place] [address] [place] [address] Park, Chair 6 Hem Onc Scenery [address] [place] [address] 12/10/2023 9:20 AM EDT Office Visit Family Medicine [address] [place] [phone] Ollie Gonzalez MD [address] [place] [address] [place] [address] 12/26/2023 7:30 AM EDT Office Visit Sleep Disorders [facility] [address] [place] [phone] Sosa Freeman CRNP [address] [place] [address] 12/27/2023 11:00 AM EDT Office Visit Cardiology [address] [place] [address] Mi Neil, PAMateo [address] [place] [address] 03/18/2024 9:00 AM EDT Nurse Only Ancillary [address] [place] [address] [place], Nurse [address] [place] [address] Scheduled Orders Name Type Priority Associated Diagnoses Orde r Schedule CBC WITH WBC DIFFERENTIAL Lab Routine Normocytic anemia Expected: 10/31/2023, Expires: 10/17/2024 Scheduled Procedures Name Priority Associated Diagnoses Date/Ti me ESOPHAGOGASTRODUODENOSCOPY ( EGD), FLEXIBLE, TRANSORAL, DIAGNOSTIC Recall Other iron deficiency anemia Health Maintenance Due Date Last Done Comments Alpha-1 Antitrypsin 1958 DXA Scan 06/11/2020 06/11/2018, 03/02, 02/16/2012, Additional history exists *BISPHONATE OR OTHER ACCEPTABLE MEDICATION NEEDED FOR OSTEOPOROSIS (REFER TO SMARTSET #1146) 01/23/2021 Depression Screening 03/16/2024 03/16/2023 O2 ASSESSMENT COMPLETED IN PAST YEAR FOR COPD 08/10/2024 08/10/2023 GFR 10/02/2024 10/02/2023, 08/31, 09/04/2023, Additional history exists Albumin/Creatinine Ratio 04/28/2025 04/28/2022 DTaP,Tdap,and Td Vaccines (3 - Td or Tdap) 09/17/2029 09/17/2019, 08/10/2011, 10/01/2001 Zoster Vaccines Completed 04/25/2020, 08/31, 07/22/2012 VITAMIN D LEVEL ONCE IN A LIFETIME-USE SMARTSET# 88495 Completed 06/29/2020, 03/16/2015 Pneumococcal Vaccine: 65+ Years Completed 07/21/2022, 03/05/2019, 03/16/2015, Additional history exists Influenza Vaccine (FLU shot) Completed 03/2023, 06/16/2022, 06/08/2021, Additional history exists COVID-19 Vaccine Completed 07/23/2023, , 08/01/2021, Additional history exists GARDASIL-HPV IMMUNIZATION SERIES Aged [...] as of this encounter Visit Diagnoses Diagnosis Normocytic anemia- Primary Anemia, unspecified documented in this encounter Advance Directives Documents on File Type Date Recorded 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 POLST 10/15/2019 3:17 PM POLST POLST 03/05/2019 POLST FORM Advance Directives and Living Will 01/27/2013 LIVING WILL Advance Directives and Living Will 01/27/2013 LIVING WILL Power of Stringed Instrument Tuner 01/27/2013 POWER OF A TTORNEY Power of Stringed Instrument Tuner 01/27/2013 POWER OF A TTORNEY Healthcare Agents on File Name Relationship Healthcare Agent Relationship Communication Cydney Benito Other - (no specific identity) Second Alternate Health Care Agent Anyi More Adult Child Health Care Roberth r of Stringed Instrument Tuner Care Teams Stretcher And Drier Relationship Specialty Start Date End Date Ollie Gonzalez MD [address] [place] [address] [place] [phone] PCP - General Family Medicine 06/09/21 documented as of this encounter
--- OUTSIDE RECORDS SUMMARY | 2023-10-29 06:19 | External Medical Summary | Summary of Care ---
Author Name Unknown Organization [facility] Address [address] [place] [address] Phone [phone] Care Team Providers Care Application Integration Architect Name Role Phone Rhys Humphrey MD Primary Care Provide r Reason for Visit * Reason Comments [facility]: Maintenance Encounter Details Date Type Department Care Team (Late st Contact Info) Description 10/16/2023 12:30 PM EST Home Visit [facility], [facility] [address] [facility] [place] [address] Amy Zaragoza, RN [address] [place] [address] Allergies Active Allergy Reactions Criticality Noted Date Comments Adhesive Tape Other (Please comment),Hives High 09/29/2008 Caused welts Dextromethorphan-Gu aifenesin Neuro complications (Please comment) Medium 12/23/2021 Feels lightheaded/"foggy" documented as of this encounter (statuses as of 10/16/2023) Medications Medication Sig Dispensed Refills Start Date [...] Each 0 11/11/2019 Active Nebulizers (NEBULIZER COMPRESSOR) MISCIndications: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 Use as directed. 1 Each 1 11/17/2019 Active Iron 325 (65 Fe) MG Oral Tablet Take 1 Tablet by mouth daily. 0 Active Cranberry 500 MG Oral Capsule Take 1 Capsule by mouth in the morning and 1 Capsule before bedtime. 50 Cap 0 01/18/2021 Active Frsmkxa-Lyyhusgbw-X inc 333-133-5 MG Oral Tablet Take 1 [...] or Wheezing. 360 mL 3 03/22/2023 Active Clopidogrel Bisulfate 75 MG Oral Tablet [...] by mouth in the morning. 30 Each 08/20/2023 Active Prochlorperazine Maleate 10 MG Oral [...] THE MORNING 30 Tablet 0 10/04/2023 Active Cefdinir 300 MG Oral Capsule (Omnicef) Take 1 Capsule by mouth in the morning and 1 Capsule before bedtime. 0 08/16/2023 4 Discontinu ed(Medicat ion List Clean Up) documented as of this encounter (statuses as of 10/16/2023) Active Problems Problem Noted Date Diagnosed Date [...] as of this encounter (statuses as of 10/16/2023) Resolved Problems Problem Noted Date Diagnosed Date [...] as of this encounter (statuses as of 10/16/2023) Immunizations Name Administration Dates Next Due COVID-19 mRNA, LNP-s, No Pre serve, 2-Dose Series ([employer]) 07/11/2021,11/14/2020,10/24/2020 Covid-19, Mrna, Lnp-s, Pf, B ivalent, 30 Mcg, IM, 12 yrs and above ([employer]) 07/21/2022 Pneumococcal Conjugate Vacc, 13 Valent (Prevnar) 03/16/2015 Pneumococcal Conjugate Vacci ne, 20-valent ([id number]) 07/21/2022 Pneumococcal Polysaccharide PPV23 (Pneumovax) 03/05/2019,07/18/2007 Season [...] Sign Reading Time Taken Comments Blood Pressure 130/64 10/16/2023 10:06 AM EST Pulse 64 10/16/2023 10:06 AM EST Temperature 36.2 C (97.2 F) 10/16/2023 1 0:06 AM EST Respiratory Rate 20 10/16/2023 10:0 6 AM EST Oxygen Saturation 96% 10/16/2023 10: 06 AM EST 3LPM Inhaled Oxygen Concentration - - Weight 67.9 kg (149 lb 12.8 oz) 024 10:06 AM EST Height - - Body Mass Index 29.26 09/14/2023 2:41 PM EST documented in this encounter Progress Notes * Amy Zaragoza, RAYNA - 10/16/2023 12:30 PM EST [facility] Monthly Visit Date: 10/16/2023 Time: 9:34 AM Name: Keisha Linares : 1940 Situation: Patient being seen for routine follow up. 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 Assessment: Pt met RNCM downstairs in apartment building. Reports that she's doing well. Ambulating with rollator using her portable oxygen. Continues to struggle with appetite. Eats 3 meals a day with 2-3 nutrition shakes. Wt today 149.8 lbs. Has follow up with RD later today via phone. Pt reminded of phone call. Wt Readings from Last 8 Encounters: 10/16/23 67.9 kg (149 lb 12.8 oz) 10/02/23 65.9 kg (145 lb 3.2 oz) 09/14/23 68.9 kg (151 lb 14.4 oz) 08/21/23 67.9 kg (149 lb 12.8 oz) 08/18/23 67.3 kg (148 lb 6.4 oz) 08/10/23 70.8 kg (156 lb) 07/23/23 70.8 kg (156 lb) 07/16/23 70.8 kg (156 lb) Bowels are moving regularly. Denies diarrhea. Denies blood or black tarry stools. Taking stool softener for constipation. Takes zofran routinely in pill packs twice daily. Reviewed medications. Noted some discrepancies. Plavix and aspirin on med list, but not in pill packs. These appear to have been placed on a temporary hold in August due to worsening anemia, but not discontinued. Losartan is in pill pack bid. Listed in epic once daily. Sent message to PCP for clarification on if pt should resume plavix and asa and to clarify dosing on losartan. Next chemo 10/30/23. RNCM to return 10/22/23 unless pt is doing well. Aware we may reschedule until after chemo is she iswithout concerns. Recommendation: Stay hydrated-drink adequate water. Goal at least 6-8, 8 oz cups of water per day. Small frequent meals with nutritious snacks in between Continue nutritional shakes RD following Will clarify if asa and plavix are to be discontinued or resumed Sent message to clarify losartan dosing (in packs bid, epic says once daily). RNCM follow up 10/22/23. Next chemo to begin 10/30/23 Vitals: 130/64., 972-64-20 96% Problems/Symptoms: Review of Systems Constitutional: Negative for chills and fever. HENT: Negative. Eyes: Negative. Respiratory: Positive for cough (npc) and shortness of breath. Cardiovascular: Negative. Gastrointestinal: Negative. Endocrine: Negative. Genitourinary: Negative. Musculoskeletal: Positive for arthralgias. Skin: Negative. Allergic/Immunologic: Negative. Neurological: Negative. Hematological: Negative. Psychiatric/Behavioral: Negative. Physical Exam: Physical Exam Cardiovascular: Rate and Rhythm: Normal rate and regular rhythm. Pulses: Normal pulses. Pulmonary: Effort: Pulmonary effort is normal. Comments: Diminished Abdominal: General: Bowel sounds are normal. There is no distension. Palpations: Abdomen is soft. Musculoskeletal: Right lower leg: No edema. Left lower leg: No edema. Skin: General: Skin is warm and dry. Neurological: Mental Status: She is alert and oriented to person, place, and time. Psychiatric: Mood and Affect: Mood normal. Behavior: Behavior normal. Thought Content: Thought content normal. Judgment: Judgment normal. [facility] Completed this Visit: No. Routine visit and No falls since last visit Home Interventions Provided: Consulted PCP/Specialist Reinforced current Plan of Care, including self-management and medication regimen Medication Reconciliation: (See medication list) Does patient take medications as ordered: Yes Advanced Care Planning: POLST. Referrals Needed: NA Is Physician in agreement with POC? Yes Amy Zaragoza RN 10/16/2023 11:48 AM documented in this encounter Plan of Treatment Upcoming Encounters Date Type Department Care Team (Late st Contact Info) Description 10/16/2023 3:00 PM EST Nutrition Services [facility], [facility] [address] [facility] [place] [address] Lovely Bravo, RDN [address] [place] [address] 10/22/2023 4:00 PM EST Home Visit [facility], [facility] [address] [facility] [place] [address] Sarah Vitale, RAYNA [address] [facility] [place] [address] 10/30/2023 8:00 AM EST Laboratory Laboratory [facility] [place] [address] [facility] [place] [phone] [place], Lab [facility] [address] [place] [address] 10/30/2023 8:30 AM EST Office Visit Hematology/Oncology [facility] [place] [address] [facility] [place] [address] Gris Diaz CRNP [address] [place] [address] 10/30/2023 9:00 AM EST Hem/Onc Treatment Hematology/Oncology Treatment, [place] [facility] [address] Apple, Chair 6 Hem Onc [facility] [address] [place] [address] 10/31/2023 1:00 PM EST Hem/Onc Treatment Hematology/Oncology Treatment, [place] [address] [facility] [address] Apple, Chair 6 Hem Onc Scenery [address] [place] [address] 11/01/2023 1:00 PM EST Hem/Onc Treatment Hematology/Oncology Treatment, [place] [address] [place] [address] Apple, Chair 6 Hem Onc Scenery [address] [place] [address] 12/10/2023 9:20 AM EDT Office Visit Family Medicine [address] [place] [phone] Rhys Humphrey MD [address] [place] [address] [place] [address] 12/26/2023 7:30 AM EDT Office Visit Sleep Disorders [facility] [address] [place] [phone] Sosa Freeman CRNP [address] [place] [address] 12/27/2023 11:00 AM EDT Office Visit Cardiology [address] [place] [address] Mi Neil PA-C [address] [place] [address] 03/18/2024 9:00 AM EDT Nurse Only Ancillary [address] [place] [address] [place], Nurse Annual [address] [place] [address] Scheduled Procedures Name Priority Associated Diagnoses Date/Ti [...] D LEVEL ONCE IN A LIFETIME-USE SMARTSET# [id number] Completed 06/29/2020, 03/16/2015 Pneumococcal Vaccine: 65+ Years [...] Documents on File Type Date Recorded Patient Instant Potato Processor Expl 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 POLST 10/15/2019 3:17 PM POLST POLST 03/05/2019 POLST FORM Advance Directives and Living Will 01/27/2013 LIVING WILL Advance Directives and Living Will 01/27/2013 LIVING WILL Power of Weight Inspector 01/27/2013 POWER OF A TTORNEY Power of Weight Inspector 01/27/2013 POWER OF A TTORNEY Healthcare Agents on File Name Relationship Healthcare Agent Relationship Communication Cydney Benito Other - (no specific identity) Second Alternate Health Care Agent Anyi More Adult Child Health Care Roberth r of Weight Inspector Care Teams Application Integration Architect Relationship Specialty Start Date End Date Rhys Humphrey MD [address] [place] [address] [place] [phone] PCP - General Family Medicine 06/09/21 documented as of this encounter
--- OUTSIDE RECORDS SUMMARY | 2023-10-29 06:19 | External Medical Summary | Summary of Care ---
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) Procedures [place] CARBOPLATIN INJECTION [place] FOSAPREPITANT INJECTION [place] ETOPOSIDE 10 MG INJ [place] INJ, ATEZOLIZUMAB,10 MG [place] INJECTION, UDENYCA 0.5 MG Martínez Lopes MD 200 [facility] [place] [address] Anc Hem/Onc [address] [address] Referral ID Status Reason Start Date Expiration Date V isits Requested Visits Authorized [id number] Authorized 09/21/2023 03/22/2024 [id number] Encounter Details Date Type Department Care Team (Latest Contact Info) Description 10/05/2023 3:00 PM EST Immunization/ Injection Hematology/Oncology Treatment, [address] [address] Nurse, Med 200 [facility] [place] [address] Encounter for antineoplastic chemotherapy*; 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 50 Cap 0 01/18/2021 Active Evbcfpw-Fteidcxld-Eu nc 333-133-5 MG Oral Tablet Take 1 [...] 08/18/2023 Losartan Potassium 50 MG Oral Tablet (Cozaar)Indications: [...] MCG/ACT Inhalation Aerosol Powder Breath Activated (ARNUITY ellipta)Indications: COPD, moderate (HCC),COPD, group D, by GOLD 2017 classification (HCC) Inhale 1 Puff by mouth in the morning. In addition to anoro. 30 Each 11 08/20/2023 Active Anoro Ellipta 62.5-25 MCG/ACT Inhalation Aerosol Powder Breath Activated (umeclidinium-vilant ed)Indications:EYELET RIVETER D, moderate (HCC),COPD, group D, by GOLD 2017 classification (HCC) Inhale 1 Puff by mouth in the morning. 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 30 Tablet 5 09/20/2023 Active Ondansetron HCl 8 MG Oral TabletIndications:Sm all cell neuroendocrine carcinoma of lung (HCC),Metastasis to mediastinal lymph node (HCC) Take 1 Tablet by mouth every 8 hours as needed for Nausea. 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),Metastasis to mediastinal lymph node (HCC) TAKE ONE TABLET BY MOUTH IN THE MORNING 30 Tablet 0 10/04/2023 Active documented as of this encounter (statuses as of 10/05/2023) Active Problems Problem Noted Date Diagnosed Date [...] couch") Medication Regimen o Other: anoro, arnradha, singrene, chandler Self-Management plan o Prednisone 40mg daily [...] as of this encounter (statuses as of 10/05/2023) Resolved Problems Problem Noted Date Diagnosed Date [...] as of this encounter (statuses as of 10/05/2023) Immunizations Name Administration Dates Next Due COVID-19 mRNA, LNP-s, No Pre serve, 2-Dose Series (Complete Innovations) 07/11/2021,11/14/2020,10/24/2020 Covid-19, Mrna, Lnp-s, Pf, B ivalent, 30 Mcg, IM, 12 yrs and above ([employer] Innovations) 07/21/2022 Pneumococcal Conjugate Vacc, 13 Valent (Prevnar) 03/16/2015 Pneumococcal Conjugate Vacci ne, 20-valent ([id number]) 07/21/2022 Pneumococcal Polysaccharide PPV23 (Pneumovax) 03/05/2019,07/18/2007 Season [...] on file documented as of this encounter Nursing Notes * Tae, Liana Edwige, STONE SAWYER - 10/05/2023 2:46 PM EST Pt arrived for Udencya injection. Administered in NEGIN. Pt tolerated well. To return in 3 weeks. Discharged in stable condition. documented in this encounter Plan of Treatment Upcoming Encounters Date Type Department Care Team (Late st Contact Info) Description 10/16/2023 11:30 AM EST Office Visit Gastroenterology, [facility] 132 [facility] [place] [address] Lizzette Silva CRNP 132 [facility] [place] [address] 10/16/2023 3:00 PM EST Nutrition Services [facility], [facility] [address] [facility] [place] [address] Lovely Bravo, RDN [address] [facility] [place] [address] 10/22/2023 4:00 PM EST Home Visit [facility], [facility] 132 [facility] [place] [address] Sarah Vitale RN 132 [facility] [place] [address] 10/30/2023 8:00 AM EST Laboratory Laboratory [facility] [place] 200 [facility] [place] [phone] Apple Lab [facility] [address] [place] [address] 10/30/2023 8:30 AM EST Office Visit Hematology/Oncology [facility] [place] [address] [place] [address] Gris Diaz CRNP [address] [place] [address] 10/30/2023 9:00 AM EST Hem/Onc Treatment Hematology/Oncology Treatment, [place] 200 [place] [address] Apple, Chair 6 Hem Onc Scenery [address] [place] [address] 10/31/2023 1:00 PM EST Hem/Onc Treatment Hematology/Oncology Treatment, [place] 200 [facility], [place] [address] Apple, Chair 6 Hem Onc Scenery [address] [place] [address] 11/01/2023 1:00 PM EST Hem/Onc Treatment Hematology/Oncology Treatment, [place] 200 [facility], [place] [address] Apple, Chair 6 Hem Onc Scenery [address] [place] [address] 12/10/2023 9:20 AM EDT Office Visit Family Medicine [address] [place] [phone] Rhys Humphrey MD [address] [place] [address] [place] [address] 12/26/2023 7:30 AM EDT Office Visit Sleep Disorders Ctr Mariella Kang, [place] [address] [place] [phone] Sosa Freeman CRNP [address] [place] [address] 12/27/2023 11:00 AM EDT Office Visit Cardiology [address] [place] [address] Mi Neil PA-C [address] [place] [address] 03/18/2024 9:00 AM EDT Nurse Only Ancillary [place] [address] [place] [address] [place], Nurse [address] [place] [address] Scheduled Procedures Name Priority Associated Diagnoses Date/Ti [...] D LEVEL ONCE IN A LIFETIME-USE SMARTSET# 10190 Completed 06/29/2020, 03/16/2015 Pneumococcal Vaccine: 65+ Years [...] this encounter Visit Diagnoses Diagnosis Encounter for antineoplastic chemotherapy- Primary 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 in this encounter Administered Medications Inactive Administered Medications - up to 3 most recent administrations Medication Order MAR Action Action Date Dose Rate Site Pegfilgrastim-cbqv (Udenyca) inj 6 mg 6 mg, Subcutaneous, ONCE, On Sun10/05/23 at 1515, For 1 dose Given 10/05/2023 2:39 PM EST 6 mg Arm L eft Upper documented in this encounter Advance Directives Documents on File Type Date Recorded Patient Merchandise Executive Expl anation POLST 10/15/2019 3:17 PM POLST POLST 03/05/2019 POLST FORM Advance Directives and Living Will 01/27/2013 LIVING WILL Advance Directives and Living Will 01/27/2013 LIVING WILL Power of Fern Cutter 01/27/2013 POWER OF A TTORNEY Power of Fern Cutter 01/27/2013 POWER OF A TTORNEY Healthcare Agents on File Name Relationship Healthcare Agent Relationship Communication Cydney Benito Other - (no specific identity) Second Alternate Health Care Agent Anyi More Adult Child Health Care Roberth r of Fern Cutter Care Teams Operations Planner Relationship Specialty Start Date End Date Rhys Humphrey MD [address] [place] [address] [place] [phone] PCP - General Family Medicine 06/09/21 documented as of this encounter
--- OUTSIDE RECORDS SUMMARY | 2023-10-29 06:19 | External Medical Summary | Summary of Care ---
Author Name Unknown Organization [facility] Address [address] [place] [address] Phone [phone] Care Team Providers Care Quality Control Technician Name Role Phone Rhys Humphrey MD Primary Care Provide r Reason for Visit * Reason Onset Date Comments [facility]: Maintenance 10/05/2023 Encounter Details Date Type Department Care Team (Late st Contact Info) Description 10/05/2023 Telephone [facility], [facility] [address] [place] [address] [facility], Nurse [facility] [address] [place] [address] [facility]: Maintenance Allergies Active Allergy [...] before bedtime. 50 Cap 0 01/18/2021 Active Nxvsbww-Ldbdjjein-Sb nc 333-133-5 MG Oral Tablet Take 1 [...] D, by GOLD 2017 classification ([facility]) Inhale 3 mL via nebulizer [...] D, by GOLD 2017 classification ([facility]) Inhale 1 Puff by mouth in the morning. In addition to anoro. 30 Each 08/20/2023 Active Anoro Ellipta 62.5-25 MCG/ACT Inhalation Aerosol Powder Breath Activated (umeclidinium-vilant ed)Indications:COUNTY JUDGE D, moderate (HCC),COPD, group D, by GOLD [...] mRNA, LNP-s, No Pre serve, 2-Dose Series (Engagio) 07/11/2021,11/14/2020,10/24/2020 Covid-19, Mrna, Lnp-s, Pf, B ivalent, 30 Mcg, IM, 12 yrs and above (Pfizer) 07/21/2022 Pneumococcal Conjugate Vacc, 13 Valent (Prevnar) 03/16/2015 Pneumococcal Conjugate Vacci ne, 20-valent ([email or web address]) 07/21/2022 Pneumococcal Polysaccharide PPV23 (Pneumovax) 03/05/2019,07/18/2007 Season [...] encounter Miscellaneous Notes * Telephone Encounter - Janine Angeles, LPN - 10/05/2023 12:28 PM EST Images from the original note were not included. [facility] Remote Patient Monitoring Able to contact patient: Trigger type: Abnormal reading(s): AMC (Advanced Monitored Caregiving): Pulse rate: Pulse: 101 Trigger priority per AMC: high Symptom review: denies new/worsening Diet Reviewed: N/A Fluid Intake Reviewed: N/A Self-Management Plan Reviewed: Red Flags: requiring oxygen more than just at night, coughing up green,yellow, thick mucous, swelling in legs/feet Risk assignment recommendation: Moderate risk [...] symptoms Additional risk selection justification: Spoke with pt denies any new/worsening symptoms. Feels "pretty good today." Will call [facility] with any new/worsening symptoms. Overall risk and identified plan: Moderate risk: Route to RNCM (Registered Nurse Round Corner Cutter Operator) and Advance Practitioner documented in this encounter Plan of Treatment Upcoming Encounters Date Type Department Care Team (Late st Contact Info) Description 10/05/2023 3:00 PM EST Immunization/Injecti on Hematology/Oncology Treatment, [place] [address] [place] [address] Nurse, Med [address] [place] [address] 10/16/2023 11:30 AM EST Office Visit Gastroenterology, [facility] [place] 132 [facility] [place] [address] Lizzette Silva CRNP [facility] [place] [address] 10/16/2023 3:00 PM EST Nutrition Services [facility], [facility] [address] [place] [address] Lovely Bravo, SHAKIRN [address] [place] [address] 10/22/2023 4:00 PM EST Home Visit [facility], [facility] [address] [place] [address] Sarah Vitale RN 132 [facility] [place] [address] 10/30/2023 8:00 AM EST Laboratory Laboratory [facility] 200 [facility] [place] [phone] Apple, Lab [facility] [place] [address] 10/30/2023 8:30 AM EST Office Visit Hematology/Oncology [facility] [place] [address] [facility] [place] [address] Gris Diaz CRNP 400 [facility] [place] [address] 10/30/2023 9:00 AM EST Hem/Onc Treatment [facility]ematology[facility]Oncology Treatment, [place] [facility] [address] Apple, Chair 6 Hem Onc [facility] 200 [facility] [place] [address] 10/31/2023 1:00 PM EST Hem/Onc Treatment Hematology[facility]Oncology Treatment, [place] [facility] [address] Apple, Chair 6 Hem Onc Scenery [address] [place] [address] 11/01/2023 1:00 PM EST Hem/Onc Treatment Hematology/Oncology Treatment, [place] [address] [facility] [address] Apple, Chair 6 Hem Onc Scenery [address] [place] [address] 12/10/2023 9:20 AM EDT Office Visit Family Medicine [address] [place] [phone] Rhys Humphrey MD [address] [place] [address] [place] [address] 12/26/2023 7:30 AM EDT Office Visit Sleep Disorders Ctr [facility] [address] [place] [phone] Sosa Freeman CRNP [address] [place] [address] 12/27/2023 11:00 AM EDT Office Visit Cardiology [address] [place] [address] Mi Neil, CECI [address] [place] [address] 03/18/2024 9:00 AM EDT Nurse Only Ancillary [address] [place] [address] [place], Nurse Annual [address] [place] [address] Scheduled Procedures Name Priority Associated Diagnoses Date/Ti [...] D LEVEL ONCE IN A LIFETIME-USE SMARTSET# 12618 Completed 06/29/2020, 03/16/2015 Pneumococcal Vaccine: 65+ Years [...] on File Type Date Recorded Patient Elevator Examiner And Adjuster Expl anation POLST 10/15/2019 3:17 PM POLST POLST 03/05/2019 POLST FORM Advance Directives and Living Will 01/27/2013 LIVING WILL Advance Directives and Living Will 01/27/2013 LIVING WILL Power of Financial Aid 01/27/2013 POWER OF A TTORNEY Power of Financial Aid 01/27/2013 POWER OF A TTORNEY Healthcare Agents on File Name Relationship Healthcare Agent Relationship Communication Cydney Benito Other - (no specific identity) Second Alternate Health Care Agent Anyi More Adult Child Health Care Roberth r of Financial Aid Care Teams Quality Control Technician Relationship Specialty Start Date End Date Rhys Humphrey MD [address] [place] [address] [place] [address] PCP - General Family Medicine 06/09/21 documented as of this encounter
--- OUTSIDE RECORDS SUMMARY | 2023-10-29 06:19 | External Medical Summary | Summary of Care ---
Author Name Unknown Organization [facility] Address [address] [place] [address] Phone [phone] Care Team Providers Care Digital Content Marketing Manager Name Role Phone Rhys Humphrey MD Primary Care Provide r Reason for Visit * Reason Onset Date Comments Advice 10/16/2023 Encounter Details Date Type Department Care Team (Late st Contact Info) Description 10/16/2023 Telephone [facility], [place] [facility] [address] [place] [address] Amy Zaragoza, RN [address] [place] [address] Advice Allergies Active Allergy Reactions Criticality Noted [...] before bedtime. 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 Pt was seen for follow up [facility] visit today. When reviewing medications in pre-filled pill packs from [facility], the following discrepancies were noted. Asa [...] is in her pill packs , but [facility] says only once daily. She monitors her [...] PM EST Home Visit [facility], [facility] [address] [place] [address] Amy Zaragoza RN [address] [place] [address] 10/16/2023 3:00 PM EST Nutrition Services [facility], [facility] [address] [facility] [place] [address] Lovely Bravo, RDN [address] [facility] [place] [address] 10/22/2023 4:00 PM EST Home Visit [facility], [facility] [address] [place] [address] Sarah Vitale RN [address] [place] [address] 10/30/2023 8:00 AM EST Laboratory Laboratory [facility] [place] [address] [place] [phone] Apple Lab [facility] [address] [facility] [place] [address] 10/30/2023 8:30 AM EST [facility] [place] [address] [place] [address] Gris Diaz CRNP [address] [place] [address] 10/30/2023 9:00 AM EST Hem/Onc Treatment Hematology/Oncology Treatment, [place] 200 [facility], [place] [address] Apple, Chair 6 Hem Onc Scenery [address] [place] [address] 10/31/2023 1:00 PM EST Hem/Onc Treatment Hematology/Oncology Treatment, [place] 200 [facility], [place] [address] Apple, Chair 6 Hem Onc Scenery [address] [place] [address] 11/01/2023 1:00 PM EST Hem/Onc Treatment Hematology/Oncology Treatment, [place] 200 [facility], [place] [address] Apple, Chair 6 Hem Onc Scenery [address] [place] [address] 12/10/2023 9:20 AM EDT Office Visit Family Medicine [address] [place] [phone] Rhys Humphrey MD [address] [place] [address] [place] [address] 12/26/2023 7:30 AM EDT Office Visit Sleep Disorders Ctr [facility] [address] [place] [phone] Sosa Freeman CRNP [address] [place] [address] 12/27/2023 11:00 AM EDT Office Visit Cardiology [address] [place] [address] Mi Neil PA-C [address] [place] [address] 03/18/2024 9:00 AM EDT Nurse Only Ancillary [facility] [place] [address] [place], Nurse [address] [place] [address] Scheduled Procedures Name Priority Associated Diagnoses Date/Ti [...] D LEVEL ONCE IN A LIFETIME-USE SMARTSET# 31112 Completed 06/29/2020, 03/16/2015 Pneumococcal Vaccine: 65+ Years [...] Documents on File Type Date Recorded Patient Radio Rigger Expl anation POLST 10/15/2019 3:17 PM POLST POLST 03/05/2019 POLST FORM Advance Directives and Living Will 01/27/2013 LIVING WILL Advance Directives and Living Will 01/27/2013 LIVING WILL Power of Transport Manager 01/27/2013 POWER OF A TTORNEY Power of Transport Manager 01/27/2013 POWER OF A TTORNEY Healthcare Agents on File Name Relationship Healthcare Agent Relationship Communication Cydney Benito Other - (no specific identity) Second Alternate Health Care Agent Anyi More Adult Child Health Care Roberth r of Transport Manager Care Teams Digital Content Marketing Manager Relationship Specialty Start Date End Date Rhys Humphrey MD [address] [place] [address] [place] [address] PCP - General Family Medicine 06/09/21 documented as of this encounter
--- OUTSIDE RECORDS SUMMARY | 2023-10-29 06:19 | External Medical Summary | Summary of Care ---
Author Name Unknown Organization [facility] Address [address] [place] [address] Phone [phone] Care Team Providers Care School Bus Aide Name Role Phone Ollie Gonzalez MD Primary Care Provide r Reason for Visit * Reason Onset Date Comments Advice 10/16/2023 Encounter Details Date Type Department Care Team (Late st Contact Info) Description 10/16/2023 Telephone [facility], [place] [address] [place] [address] Amy Zaragoza, RN [address] [place] [address] Advice Allergies Active Allergy Reactions Criticality Noted [...] Each 0 11/11/2019 Active Nebulizers (NEBULIZER COMPRESSOR) MISCIndications:RESIDENT DIRECTOR D, 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 Use as directed. 1 Each 1 11/17/2019 Active Iron 325 (65 Fe) MG Oral Tablet Take 1 Tablet by mouth daily. 0 Active Cranberry 500 MG Oral Capsule Take 1 Capsule by mouth in the morning and 1 Capsule before bedtime. 50 Cap 0 01/18/2021 Active Tunuahc-Wkmhhcedr-J inc 333-133-5 MG Oral Tablet Take 1 [...] :COPD, group D, by GOLD 2017 classification (TRIDENT [...] mRNA, LNP-s, No Pre serve, 2-Dose Series (Aphria) 07/11/2021,11/14/2020,10/24/2020 Covid-19, Mrna, Lnp-s, Pf, B ivalent, 30 Mcg, IM, 12 yrs and above (Aphria) 07/21/2022 Pneumococcal Conjugate Vacc, 13 Valent (Prevnar) 03/16/2015 Pneumococcal Conjugate Vacci ne, 20-valent ([id number]) 07/21/2022 Pneumococcal Polysaccharide PPV23 (Pneumovax) 03/05/2019,07/18/2007 Season [...] included. Pt was seen for follow up [facility] visit today. When reviewing medications in pre-filled pill packs from [facility], the following discrepancies were noted. [...] is in her pill packs , but EPIC says only once daily. She monitors her blood pressure daily with [facility] cuff. See readings below. BP Readings from Last 8 Encounters: 10/04/23 148/58 10/03/23 122/48 10/02/23 136/77 09/28/23 136/64 09/21/23 102/56 09/14/23 108/57 08/22/23 128/58 08/21/23 112/58 documented in this encounter Plan of Treatment Upcoming Encounters Date Type Department Care Team (Late st Contact Info) Description 10/22/2023 4:00 PM EST Home Visit [facility], [facility] [address] [place] [address] Sarah Vitale, RAYNA [address] [place] [address] 10/23/2023 12:00 PM EST Scheduled Telephone [facility] [place] [address] [facility] [place] [address] Lovely Bravo, RDN [address] [place] [address] 10/30/2023 8:00 AM EST Laboratory Laboratory [facility] [place] [address] [facility] [place] [phone] [place], Lab [facility] [address] [facility] [place] [address] 10/30/2023 8:30 AM EST Office Visit Hematology/Oncology [facility] [place] [address] [facility] [place] [address] Gris Diaz CRNP [address] [place] [address] [place] [address] 10/30/2023 9:00 AM EST Hem/Onc Treatment Hematology/Oncology Treatment [place] 200 [facility], [place] [address] Apple, Chair 6 Hem Onc Scenery [address] [facility] [place], [place] [address] 10/31/2023 1:00 PM EST Hem/Onc Treatment Hematology/Oncology [address] [address] Apple, Chair 6 Hem Onc Scenery [address] [facility] [place], [place] [address] 11/01/2023 1:00 PM EST Hem/Onc Treatment Hematology/Oncology Treatment, [address], [place] [address] Apple, Chair 6 Hem Onc Scenery [address] [facility] [place] [address] 12/10/2023 9:20 AM EDT Office Visit [address] [place] [address] Ollie Gonzalez MD [address] [place] [address] [place] [address] 12/26/2023 7:30 AM EDT Office Visit Sleep Disorders Ctr [facility] [address] [place] [phone] Sosa Freeman CRNP [address] [place] [address] 12/27/2023 11:00 AM EDT Office Visit Cardiology [address] [place] [address] Mi Neil PA-C [address] [place] [address] 03/18/2024 9:00 AM EDT Nurse Only Ancillary [address] [place] [address] [place], Nurse [address] [place] [address] Scheduled Orders Name Type Priority Associated Diagnoses [...] D LEVEL ONCE IN A LIFETIME-USE SMARTSET# [id number] Completed 06/29/2020, 03/16/2015 Pneumococcal Vaccine: 65+ Years [...] Documents on File Type Date Recorded Patient White Sugar Boiler Expl anation POLST 10/15/2019 3:17 PM POLST POLST 03/05/2019 POLST FORM Advance Directives and Living Will 01/27/2013 LIVING WILL Advance Directives and Living Will 01/27/2013 LIVING WILL Power of Cycle Director 01/27/2013 POWER OF A TTORNEY Power of Cycle Director 01/27/2013 POWER OF A TTORNEY Healthcare Agents on File Name Relationship Healthcare Agent Relationship Communication Cydney Benito Other - (no specific identity) Second Alternate Health Care Agent Anyi More Adult Child Health Care Roberth r of Cycle Director Care Teams School Bus Aide Relationship Specialty Start Date End Date Ollie Gonzalez MD [address] [place] [address] [place] [phone] PCP - General Family Medicine 06/09/21 documented as of this encounter
--- OUTSIDE RECORDS SUMMARY | 2023-10-29 06:19 | External Medical Summary | Summary of Care ---
Author Name Unknown Organization [facility] Address [address] [place] [address] Phone [phone] Care Team Providers Care Grey Stock Recorder Name Role Phone Ollie Gonzalez MD Primary Care Provide r Reason for Visit * Reason Onset Date Comments Advice 10/16/2023 Encounter Details Date Type Department Care Team (Late st Contact Info) Description 10/16/2023 Telephone [facility], [place] [address] [place] [address] Amy Zaragoza, RN [address] [place] [address] Advice Allergies Active Allergy Reactions Criticality Noted [...] Each 0 11/11/2019 Active Nebulizers (NEBULIZER COMPRESSOR) MISCIndications: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 Use as directed. 1 Each 1 11/17/2019 Active Iron 325 (65 Fe) MG Oral Tablet Take 1 Tablet by mouth daily. 0 Active Cranberry 500 MG Oral Capsule Take 1 Capsule by mouth in the morning and 1 Capsule before bedtime. 50 Cap 0 01/18/2021 Active Ageazyq-Vbmodgcpq-G inc 333-133-5 MG Oral Tablet Take 1 [...] :COPD, group D, by GOLD 2017 classification (LTAC, [...] mRNA, LNP-s, No Pre serve, 2-Dose Series (NovImmune) 07/11/2021,11/14/2020,10/24/2020 Covid-19, Mrna, Lnp-s, Pf, B ivalent, 30 Mcg, IM, 12 yrs and above (NovImmune) 07/21/2022 Pneumococcal Conjugate Vacc, 13 Valent (Prevnar) 03/16/2015 Pneumococcal Conjugate Vacci ne, 20-valent ([id number]) 07/21/2022 Pneumococcal Polysaccharide PPV23 (Pneumovax) 03/05/2019,07/18/2007 Season [...] Telephone Encounter - Kacey Holly RN - 10/17/2023 1:30 PM EST Phone call to patient and made aware to restart baby ASA as directed by PCP. Patient verbalized understanding of same. Kacey Holly RN, BSN [facility] return to service inspector Navigator * Telephone Encounter - Amy Zaragoza RN - 10/17/2023 1:22 PM EST regional sales associate- can you please notify pt of PCP [...] included. Pt was seen for follow up [facility] visit today. When reviewing medications in pre-filled pill packs from [facility], the following discrepancies were noted. Asa [...] [facility], [facility] 132 [facility] [place] [address] Sarah Vitale RN 132 [facility] [place] [address] 10/23/2023 12:00 PM EST Scheduled Telephone [facility], [facility] [address] [facility] [place] [address] Lovely Bravo RDN [address] [facility] [place] [address] 10/30/2023 8:00 AM EST Laboratory Laboratory [facility] 200 [facility] [place] [phone] Apple, Lab [facility] 200 [facility] [place] [address] 10/30/2023 8:30 AM EST Office Visit Hematology/Oncology [facility] [place] 200 [facility] [place] [address] Gris Diaz CRNP 400 [facility] [place] [address] 10/30/2023 9:00 AM EST Hem/Onc Treatment Hematology/Oncology Treatment, [place] [address] [place] [address] Apple, Chair 6 Hem Onc [facility] 200 [facility] [place] [address] 10/31/2023 1:00 PM EST Hem/Onc Treatment Hematology/Oncology Treatment, [place] [facility] [place] [address] Apple, Chair 6 Hem Onc Scenery [address] [place] [address] 11/01/2023 1:00 PM EST Hem/Onc Treatment Hematology/Oncology Treatment, [place] [facility] [address] Apple, Chair 6 Hem Onc Scenery [address] [place] [address] 12/10/2023 9:20 AM EDT Office Visit Family Medicine [address] [place] [phone] Ollie Gonzalez MD [address] [place] [address] [place] [address] 12/26/2023 7:30 AM EDT Office Visit Sleep Disorders Ctr [facility] [address] [place] [phone] Sosa Freeman CRNP [address] [facility] [place] [address] 12/27/2023 11:00 AM EDT Office Visit Cardiology [address] [place] [address] Mi Neil PA-C [address] [facility] [place] [address] 03/18/2024 9:00 AM EDT Nurse Only Ancillary [address] [place] [address] [place], Nurse Annual [address] [place] [address] Scheduled Orders Name Type Priority Associated Diagnoses [...] D LEVEL ONCE IN A LIFETIME-USE SMARTSET# [id number] Completed 06/29/2020, 03/16/2015 Pneumococcal Vaccine: 65+ Years [...] on File Type Date Recorded Patient Manager Knowledge Expl anation POLST 10/15/2019 3:17 PM POLST POLST 03/05/2019 POLST FORM Advance Directives and Living Will 01/27/2013 LIVING WILL Advance Directives and Living Will 01/27/2013 LIVING WILL Power of Whistle Punk 01/27/2013 POWER OF A TTORNEY Power of [place]istle [place]unk 01/27/2013 POWER OF A TTORNEY Healthcare Agents on File Name Relationship Healthcare Agent Relationship Communication Cydney Benito Other - (no specific identity) Second Alternate Health Care Agent Anyi More Adult Child Health Care Roberth r of Whistle Punk Care Teams Grey Stock Recorder Relationship Specialty Start Date End Date Ollie Gonzalez MD [address] [place] [address] [place] [address] PCP - General Family Medicine 06/09/21 documented as of this encounter
--- OUTSIDE RECORDS SUMMARY | 2023-10-29 06:19 | External Medical Summary | Summary of Care ---
Author Name Unknown Organization [facility] Address [address] [place] [address] Phone [phone] Care Team Providers Care Marine Extension Agent Name Role Phone Rhys Humphrey MD Primary Care Provide r Reason for Visit * Reason Onset Date Comments [facility]: Maintenance 10/11/2023 Encounter Details Date Type Department Care Team (Late st Contact Info) Description 10/11/2023 Telephone [facility], [facility] [address] [place] [address] [facility], Nurse [facility] [address] [place] [address] [facility]: Maintenance Allergies Active Allergy Reactions Criticality Noted Date Comments Adhesive Tape Other (Please comment),Hives High 09/29/2008 Caused welts Dextromethorphan-Gu aifenesin Neuro complications (Please comment) Medium 12/23/2021 Feels lightheaded/"foggy" documented as of this encounter (statuses as of 10/11/2023) Medications Medication Sig Dispensed Refills Start Date [...] before bedtime. 50 Cap 0 01/18/2021 Active Kccioly-Wiuyjjaia-Py nc 333-133-5 MG Oral Tablet Take 1 [...] (HCC),COPD, group D, by GOLD 2017 classification ([facility]) Inhale 1 Puff by mouth in the morning. In addition to anoro. 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 ASSOC D, moderate (HCC),COPD, group D, by GOLD [...] as of this encounter (statuses as of 10/11/2023) Active Problems Problem Noted Date Diagnosed Date [...] as of this encounter (statuses as of 10/11/2023) Resolved Problems Problem Noted Date Diagnosed Date [...] as of this encounter (statuses as of 10/11/2023) Immunizations Name Administration Dates Next Due COVID-19 mRNA, LNP-s, No Pre serve, 2-Dose Series (Fatwire) 07/11/2021,11/14/2020,10/24/2020 Covid-19, Mrna, Lnp-s, Pf, B ivalent, 30 Mcg, IM, 12 yrs and above (Pfizer) 07/21/2022 Pneumococcal Conjugate Vacc, 13 Valent (Prevnar) 03/16/2015 Pneumococcal Conjugate Vacci ne, 20-valent ([id number]) 07/21/2022 Pneumococcal Polysaccharide PPV23 (Pneumovax) 03/05/2019,07/18/2007 Season [...] Telephone Encounter - Chaya Ozuna LPN - 10/11/2023 11:20 AM EST Images from the original note were not included. [facility] Remote Patient Monitoring Unable to contact patient: Trigger type: Abnormal reading(s): Device(s) Triggered: AMC (Advanced Monitored Caregiving): Pulse Rate: Pulse: 91 Trigger priority per AMC: high Blood Pressure Cuff: Blood pressure per cuff: 140/20 Trigger priority per AMC: high Call to pt no answer left VM requesting a return call to [facility] at [phone] opt#3 documented in this encounter Plan of Treatment Upcoming Encounters Date Type Department Care Team (Late st Contact Info) Description 10/16/2023 11:30 AM EST Office Visit Gastroenterology, [facility] [address] [place] [address] Lizzette Silva CRNP [address] [place] [address] 10/16/2023 3:00 PM EST Nutrition Services [facility], [facility] [address] [facility] [place] [address] Lovely Bravo RDN [address] [facility] [place] [address] 10/22/2023 4:00 PM EST Home Visit [facility], [facility] [address] [place] [address] Sarah Vitale RN [address] [place] [address] 10/30/2023 8:00 AM EST Laboratory Laboratory [facility] 200 [facility] [place] [address] Apple, Lab [facility] 200 [facility] [place] [address] 10/30/2023 8:30 AM EST Office Visit Hematology/Oncology [facility] 200 [facility] [place] [address] Gris Diaz CRNP [address] [place] [address] [place] [address] 10/30/2023 9:00 AM EST Hem/Onc Treatment Hematology/Oncology Treatment, [place] [address] [place] [address] Apple, Chair [address] [facility] [address] [place] [address] 10/31/2023 1:00 PM EST Hem/Onc Treatment Hematology/Oncology Treatment, [place] 200 [facility], [place] [address] Apple, Chair 6 Hem Onc Scenery [address] [place] [address] 11/01/2023 1:00 PM EST Hem/Onc Treatment Hematology/Oncology Treatment, [place] [facility] [address] Apple, Chair 6 Hem Onc Scenery [address] [place] [address] 12/10/2023 9:20 AM EDT Office Visit Family Medicine [address] [place] [phone] Rhys Humphrey MD [address] [place] [address] [place] [address] 12/26/2023 7:30 AM EDT Office Visit Sleep Disorders Ctr [facility] [address] [place] [phone] Sosa Freeman CRNP [address] [place] [address] 12/27/2023 11:00 AM EDT Office Visit Cardiology [address] [place] [address] Mi Neil PA-C [address] [place] [address] 03/18/2024 9:00 AM EDT Nurse Only Ancillary [address] [place] [address] [place], Nurse Annual [address] [place] [address] Scheduled Procedures Name Priority Associated Diagnoses Date/Ti [...] D LEVEL ONCE IN A LIFETIME-USE SMARTSET# [id number] Completed 06/29/2020, 03/16/2015 Pneumococcal Vaccine: 65+ Years [...] Documents on File Type Date Recorded Patient Screening Nurse Expl anation POLST 10/15/2019 3:17 PM POLST POLST 03/05/2019 POLST FORM Advance Directives and Living Will 01/27/2013 LIVING WILL Advance Directives and Living Will 01/27/2013 LIVING WILL Power of Parliamentary Counsel 01/27/2013 POWER OF A TTORNEY Power of Parliamentary Counsel 01/27/2013 POWER OF A TTORNEY Healthcare Agents on File Name Relationship Healthcare Agent Relationship Communication Cydney Benito Other - (no specific identity) Second Alternate Health Care Agent Anyi More Adult Child Health Care Roberth r of Parliamentary Counsel Care Teams Marine Extension Agent Relationship Specialty Start Date End Date Rhys Humphrey MD [address] [place] [address] [place] [address] PCP - General Family Medicine 06/09/21 documented as of this encounter
--- OUTSIDE RECORDS SUMMARY | 2023-10-29 06:19 | External Medical Summary | Summary of Care ---
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),COPD, group D, by [...] as of this encounter (statuses as of 10/23/2023) Active Problems Problem Noted Date Diagnosed Date [...] as of this encounter (statuses as of 10/23/2023) Resolved Problems Problem Noted Date Diagnosed Date [...] as of this encounter (statuses as of 10/23/2023) Immunizations Name Administration Dates Next Due COVID-19 mRNA, LNP-s, No Pre serve, 2-Dose Series (VOLITIONRX) 07/11/2021,11/14/2020,10/24/2020 Covid-19, Mrna, Lnp-s, Pf, B ivalent, 30 Mcg, IM, 12 yrs and above (Pfizer) 07/21/2022 Pneumococcal Conjugate Vacc, 13 Valent (Prevnar) 03/16/2015 Pneumococcal Conjugate Vacci ne, 20-valent ([id number]) 07/21/2022 Pneumococcal Polysaccharide PPV23 (Pneumovax) 03/05/2019,07/18/2007 Season [...] encounter Miscellaneous Notes * Telephone Encounter - Lovely Bravo, ANIBAL - 10/23/2023 1:17 PM EST NUTRITION FOLLOW-UP NOTE - OUTPATIENT [facility] Name: Keisha Linares Location: [facility] Date: 10/23/2023 Time: 1:17 PM Reason for Nutrition Follow-up: Loss of weight, Nutrition Issues for Cancer Treatment NUTRITION ASSESSMENT: 1:29 PM Call placed to patient. Unable to speak at this time. Request phone call after 4 PM. 4:05 PM Call placed per patient request. No answer. Voice message left with RDN contact information and purpose of phone call. Awaiting return call at this time. Lovely Bravo RDN [facility] documented in this encounter Plan of Treatment Upcoming Encounters Date Type Department Care Team (Late st Contact Info) Description 10/30/2023 8:00 AM EST Laboratory Laboratory [facility] [place] [address] [place] [phone] Apple, Lab [place] [address] [address] [facility] [place] [address] 10/30/2023 8:30 AM EST Office Visit Hematology/Oncology [facility] [place] [address] [place] [address] Gris Diaz CRNP 400 [facility] [place] [address] 10/30/2023 9:00 AM EST Hem/Onc Treatment Hematology/Oncology Treatment, [address] [address] Apple, Chair 6 Hem Onc [place] [address] [place] [address] 10/31/2023 1:00 PM EST Hem/Onc Treatment Hematology/Oncology Treatment, [address] [address] Apple, Chair 6 Hem Onc [facility] [address] [place] [address] 11/01/2023 1:00 PM EST Hem/Onc Treatment Hematology/Oncology Treatment, [place] 200 [facility] [address] Apple, Chair 6 Hem Onc [facility] [place] [address] 11/06/2023 12:30 PM EST Scheduled Telephone [facility] [place] [address] [facility] [place] [address] [place] Lovely Shilpa, RDN [address] [facility] [place] [address] 12/10/2023 9:20 AM EDT Office Visit Family Medicine [address] [place] [phone] Rhys Humphrey MD [address] [place] [address] [place] [address] 12/26/2023 7:30 AM EDT Office Visit Sleep Disorders Ctr [facility] [address] [place] [phone] Sosa Freeman CRNP [address] [place] [address] 12/27/2023 11:00 AM EDT Office Visit Cardiology [address] [place] [address] Mi Neil, CECI [address] [place] [address] 03/18/2024 9:00 AM EDT Nurse Only Ancillary [address] [place] [address] [place], Nurse Annual [address] [place] [address] Scheduled Procedures Name Priority Associated Diagnoses Date/Ti [...] D LEVEL ONCE IN A LIFETIME-USE SMARTSET# [id number] Completed 06/29/2020, 03/16/2015 Pneumococcal Vaccine: 65+ Years [...] as of this encounter Visit Diagnoses Diagnosis 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 documented in this encounter Advance Directives Documents on File Type Date Recorded Patient Skoog Machine Operator Expl anation POLST 10/15/2019 3:17 PM POLST POLST 03/05/2019 POLST FORM Advance Directives and Living Will 01/27/2013 LIVING WILL Advance Directives and Living Will 01/27/2013 LIVING WILL Power of Test Director 01/27/2013 POWER OF A TTORNEY Power of Test Director 01/27/2013 POWER OF A TTORNEY Healthcare Agents on File Name Relationship Healthcare Agent Relationship Communication Cydney Benito Other - (no specific identity) Second Alternate Health Care Agent Anyi More Adult Child Health Care Roberth r of Test Director Care Teams Clerical Adjuster Relationship Specialty Start Date End Date Rhys Humphrey MD [address] [place] [address] [place] [address] PCP - General Family Medicine 06/09/21 documented as of this encounter
--- OUTSIDE RECORDS SUMMARY | 2023-10-29 06:20 | External Medical Summary | Summary of Care ---
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 Use as directed. 1 Each 1 0 Active Iron 325 (65 Fe) MG Oral Tablet Take 1 Tablet by mouth daily. 0 Active Cranberry 500 MG Oral Capsule Take 1 Capsule by mouth in the morning and 1 Capsule before bedtime. 50 Cap 0 1 Active Knlncid-Ztddysyqj-E inc 333-133-5 MG Oral Tablet Take 1 Tablet by mouth daily. 0 Active Aspirin 81 MG Oral Tablet Chewable Take 1 Tablet by mouth in the morning. 0 Active Fluticasone Propionate 50 MCG/ACT Nasal SuspensionIndicatio ns:Dysfunction of both eustachian tubes Administer 2 Sprays into each nostril in the morning. 16 g 3 3 Active Docusate Sodium 100 MG Oral [...] :COPD, group D, by GOLD 2017 classification ([facility]) Inhale 3 mL via nebulizer every 6 hours as needed for Shortness of Breath or Wheezing. 360 mL 3 3 Active Clopidogrel Bisulfate 75 MG Oral [...] for Heartburn. 180 Tablet 1 3 Active Additional Information Patient taking differently:20 mg [...] for Cough. 30 Capsule 0 3 Active HYDROcodone Bit-Homatrop MBr 5-1.5 MG/5ML Oral Solution (Hydromet) Take 5 mL by mouth every 6 hours as needed for Cough. 0 Active Fluticasone Furoate 100 MCG/ACT Inhalation Aerosol Powder Breath Activated (ARNUITY ellipta)Indications :COPD, moderate (HCC),COPD, group D, by GOLD 2017 classification ([facility]) Inhale 1 Puff by mouth in the morning. In addition to anoro. 30 Each 11 3 Active Anoro Ellipta 62.5-25 MCG/ACT Inhalation Aerosol Powder Breath Activated (umeclidinium-vilan terol)Indications:C OPD, moderate (HCC),COPD, group D, by GOLD 2017 classification (HCC) Inhale 1 Puff by mouth in the morning. 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 30 Tablet 5 3 Active Ondansetron HCl 8 MG Oral TabletIndications:S mall cell neuroendocrine carcinoma of lung (HCC),Metastasis to mediastinal lymph node (HCC) Take 1 Tablet by mouth every 8 hours as needed for Nausea. 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 30 Tablet 0 3 10/04/19 24 Discontinued documented as of this encounter (statuses as of 10/04/2023) Active Problems Problem Noted Date Diagnosed Date Encounter for antineoplastic chemotherapy 2022 Small cell neuroendocrine carcinoma of lung 08/02 Acute respiratory failure with hypoxia 3 Acute serous otitis media 01/01/2023 Nontoxic multinodular [...] as of this encounter (statuses as of 10/04/2023) Resolved Problems Problem Noted Date Diagnosed Date [...] as of this encounter (statuses as of 10/04/2023) Immunizations Name Administration Dates Next Due COVID-19 mRNA, LNP-s, No Pre serve, 2-Dose Series ([employer]) 07/11/2021,11/14/2020,10/24/2020 Covid-19, Mrna, Lnp-s, Pf, B ivalent, 30 Mcg, IM, 12 yrs and above ([employer]) 07/21/2022 Pneumococcal Conjugate Vacc, 13 Valent (Prevnar) 03/16/2015 Pneumococcal Conjugate Vacci ne, 20-valent ([id number]) 07/21/2022 Pneumococcal Polysaccharide PPV23 (Pneumovax) 03/05/2019,07/18/2007 Season [...] encounter Miscellaneous Notes * Telephone Encounter - Yg Buitrago MD - 10/04/2023 1:21 PM ESTSigned Prescriptions: Disp Refills Allopurinol 100 MG Oral Tablet (Zyloprim) 30 Tab*0 Sig: TAKE ONE TABLET BY MOUTH IN THE MORNING Authorizing Provider: YG BUITRAGO * Telephone Encounter - Amy Craig RN - 10/04/2023 12:49 PM ESTPending Prescriptions: Disp Refills Allopurinol 100 MG Oral Tablet [Pharmacy M*30 Tab*0 Sig: TAKE ONE TABLET BY MOUTH IN THE MORNING * Telephone Encounter - Amy Craig RN - 10/04/2023 12:41 PM EST Did you pend patient's preferred pharmacy and medication before forwarding?yes Pharmacy: [facility], [address] [place] Authorization for medication useage called to indicated pharmacy per Dr. Lopes due to Tumor Lysis prevention. Last Visit: 09/14/2023 (in office), Visit date not found (telemedicine) Next Visit: Visit date not found If no future appointments scheduled, and last appointment is greater than a year ago, please schedule patient for a follow-up appointment Last date the medication was ordered: 09/14/23 Is this request for a controlled substance?No Urine Drug Screen:No results found. However, due to the size of the patient record, not all encounters were searched. Please check Results Review for a complete set of results. Patient Phone Numbers Labs: Lab Results Component Value Date/Time CREAT 0.8 10/02/2023 09:00 AM CREAT 1.0 06/29/2020 12:24 PM POTASSIUM 3.6 10/02/2023 09:00 AM POTASSIUM 4.1 06/29/2020 12:24 PM TSH 2.97 10/02/2023 09:00 AM TSH 3.53 08/08/2012 10:00 AM LDLCALC 63 06/07/2023 08:58 AM LDLCALC 80 03/03/2019 09:10 AM LDLDIRECT NOT APPLICABLE 03/03/2019 09:10 AM ALT 8 (L) 10/02/2023 09:00 AM ALT 24 06/29/2020 12:24 PM HGBA1C 5.3 07/07/2021 11:34 AM HGBA1C 6.3 (H) 06/29/2020 12:24 PM documented in this encounter Plan of Treatment Upcoming Encounters Date Type Department Care Team (Late st Contact Info) Description 10/16/2023 11:30 AM EST Office Visit Gastroenterology, [facility] [address] [place] [address] Lizzette Silva CRNP [address] [place] [address] 10/16/2023 3:00 PM EST Nutrition Services [facility], [facility] [address] [facility] [place] [address] Lovely Bravo RDN [address] [facility] [place] [address] 10/22/2023 4:00 PM EST Home Visit [facility], [facility] [address] [place] [address] Sarah Vitale, RAYNA [address] [place] [address] 12/10/2023 9:20 AM EDT Office Visit Family Medicine [address] [phone] Rhys Humphrey MD [address] [place] [address] [place] [address] 12/26/2023 7:30 AM EDT Office Visit Sleep Disorders [facility] [address] [place] [phone] Sosa Freeman CRNP [address] [place] [address] 12/27/2023 11:00 AM EDT Office Visit Cardiology [address] [place] [address] Mi Neil, CECI [address] [place] [address] 03/18/2024 9:00 AM EDT Nurse Only Ancillary [address] [place] [address] [place], Nurse Annual [address] [place] [address] Scheduled Procedures Name Priority Associated Diagnoses Date/Ti [...] D LEVEL ONCE IN A LIFETIME-USE SMARTSET# 25032 Completed 06/29/2020, 03/16/2015 Pneumococcal Vaccine: 65+ Years [...] Diagnosis 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 documented in this encounter Advance Directives Documents on File Type Date Recorded Patient University Controller Expl anation POLST 10/15/2019 3:17 PM POLST POLST 03/05/2019 POLST FORM Advance Directives and Living Will 01/27/2013 LIVING WILL Advance Directives and Living Will 01/27/2013 LIVING WILL Power of Instructor Product Inspection 01/27/2013 POWER OF A TTORNEY Power of Instructor Product Inspection 01/27/2013 POWER OF A TTORNEY Healthcare Agents on File Name Relationship Healthcare Agent Relationship Communication Cydney Benito Other - (no specific identity) Second Alternate Health Care Agent Anyi More Adult Child Health Care Roberth kenneth of Instructor Product Inspection Care Teams Trip Rider Relationship Specialty Start Date End Date Rhys Humphrey MD [address] [place] [address] [place] [id number] PCP - General Family Medicine 06/09/21 documented as of this encounter
--- OUTSIDE RECORDS SUMMARY | 2023-10-29 06:20 | External Medical Summary | Summary of Care ---
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) Procedures OK CARBOPLATIN INJECTION OK FOSAPREPITANT INJECTION OK ETOPOSIDE 10 MG INJ OK INJ, ATEZOLIZUMAB,10 MG OK INJECTION, UDENYCA 0.5 MG Martínez Lopes MD [address] [place] [address] Anc Hem/Onc Scenery [address] [address] Referral ID Status Reason Start Date Expiration Date V isits Requested Visits Authorized [id number] Authorized 09/21/2023 03/22/2024 [id number] Encounter Details Date Type Department Care Team (Latest Contact Info) Description 10/03/2023 1:15 PM EST Hem/Onc Treatment Hematology/Oncolog y Treatment, [address] [address] Apple, Chair 1 Hem Onc Scenery [address] [place] [address] [place] [address] Encounter for antineoplastic chemotherapy*; 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 Use as directed. 1 Each 1 0 Active Iron 325 (65 Fe) MG Oral Tablet Take 1 Tablet by mouth daily. 0 Active Cranberry 500 MG Oral Capsule Take 1 Capsule by mouth in the morning and 1 Capsule before bedtime. 50 Cap 0 1 Active Uxkbvbn-Uhofjjirn-O inc 333-133-5 MG Oral Tablet Take 1 [...] :COPD, group D, by GOLD 2017 classification ([facility] [...] morning. In addition to anoro. 30 Each 3 Active Anoro Ellipta 62.5-25 MCG/ACT Inhalation [...] for Nausea. 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 30 Tablet 0 3 Active Loratadine 10 MG Oral Tablet [...] by mouth daily. 90 Tablet 1 3 10/03/19 24 Discontinued documented as of this encounter (statuses as of 10/03/2023) Active Problems Problem Noted Date Diagnosed Date [...] the couch") Medication Regimen o Other: shay, an aluisa, sunni, chandler Self-Management plan o Prednisone 40mg [...] as of this encounter (statuses as of 10/03/2023) Resolved Problems Problem Noted Date Diagnosed Date [...] as of this encounter (statuses as of 10/03/2023) Immunizations Name Administration Dates Next Due COVID-19 mRNA, LNP-s, No Pre serve, 2-Dose Series ([employer]) 07/11/2021,11/14/2020,10/24/2020 Covid-19, Mrna, Lnp-s, Pf, B ivalent, 30 Mcg, IM, 12 yrs and above ([employer]) 07/21/2022 Pneumococcal Conjugate Vacc, 13 Valent (Prevnar) 03/16/2015 Pneumococcal Conjugate Vacci ne, 20-valent ([id number]) 07/21/2022 Pneumococcal Polysaccharide PPV23 (Pneumovax) 03/05/2019,07/18/2007 Season [...] Sign Reading Time Taken Comments Blood Pressure 122/48 10/03/2023 1:35 PM EST Pulse 88 10/03/2023 1:35 PM EST Temperature 36.5 C (97.7 F) 10/03/2023 1:35 PM ES T Respiratory Rate 20 10/03/2023 1:35 PM EST Oxygen Saturation 92% 10/03/2023 1:35 PM EST Inhaled Oxygen Concentration - - Weight - - Height - - Body Mass Index - - documented in this encounter Nursing Notes * Asia Gambino RN - 10/03/2023 3:25 PM EST Functional status at today's visit: Ambulatory and capable of all selfcare but unable to carry out any work activities. Up and about more than 50% of waking hours The drug name, dose, infusion volume, rate and route of administration, expiration date and time, appearance and physical integrity of the drug and rate set on the pump and sequencing of drug administration (as applicable) were verified by me and second sign-in RN. Patient was assessed for symptoms or adverse side effects during treatment. Goals: Patient will remain free from injury. Possible barriers to meeting goals: ambulation with wheeled walker Stability of the patient: Moderately unstable - medium risk of patient condition declining or worsening Summary regarding today's goals: Met: Pt remained free of injury during treatment Patient tolerated treatment well and was discharged in stable condition. IV site remains intact fortreatment tomorrow. No coverage needed today. * Asia Gambino RN - 10/03/2023 1:45 PM EST Chair 7 Pt arrives for D2 etoposide. She states she's doing well, denies any acute concerns, denies any issues following treatment. IV site remains intact, fluids infusing. Safety and Risk for Injury Patient will remain free from injury. Ensure appropriate safety devices are available. Provide and maintain safe environment. documented in this encounter Plan of Treatment Upcoming Encounters Date Type Department Care Team (Late st Contact Info) Description 10/04/2023 1:15 PM EST Hem/Onc Treatment Hematology/Oncology Treatment, [place] [address] [place] [address] Apple, Chair 7 Hem Onc Scenery [address] [facility] [place] [address] 10/16/2023 11:30 AM EST Office Visit Gastroenterology, [facility] [address] [place] [address] Lizzette Silva CRNP [address] [place] [address] 10/16/2023 3:00 PM EST Nutrition Services [facility], [facility] [address] [facility] [place] [address] Lovely Bravo, ANIBAL [address] [facility] [place] [address] 10/22/2023 4:00 PM EST Home Visit [facility], [facility] [address] [place] [address] Sarah Vitale RN [address] [place] [address] 12/10/2023 9:20 AM EDT Office Visit Family Medicine [address] [place] [phone] Rhys Humphrey MD [address] [place] [address] [place] [address] 12/26/2023 7:30 AM EDT Office Visit Sleep Disorders [facility] [address] [place] [phone] Sosa Freeman CRNP [address] [place] [address] 12/27/2023 11:00 AM EDT Office Visit Cardiology [address] [place] [address] Mi Neil, CECI [address] [place] [address] 03/18/2024 9:00 AM EDT Nurse Only Ancillary [address] [place] [address] [place], Nurse [address] [place] [address] Scheduled Procedures Name Priority Associated Diagnoses Date/Ti [...] D LEVEL ONCE IN A LIFETIME-USE SMARTSET# 44482 Completed 06/29/2020, 03/16/2015 Pneumococcal Vaccine: 65+ Years [...] (HCC) documented in this encounter Administered Medications Active Administered Medications - up to 3 most recent administrations Medication Order MAR Action Action Date Dose Rate Site diphenhydrAMINE (Benadryl) inj 50 mg 50 mg, IV Push, ONCE PRN Other, Hypersensitivity Reaction, Starting on Sun10/03/23 at 1343, Until Sun10/04/23 at 1342, For 24 hours EPINEPHrine 1 MG/ML inj 0.3 mg 0.3 mg, Intramuscular, ONCE PRN Other, Hypersensitivity Reaction or Anaphylaxis, Starting on Sun10/03/23 at 1343, Until Sun10/04/23 at 1342, For 24 hours hEParin 100 UNIT/ML Lock Flush inj 500 Units 500 Units (5 mL), IV Lock, PRN Other, IV Flush, Starting on Sun10/03/23 at 1343, Until Dania 10/04/23 at 1342, For 24 hours, Do not flush if lock, PICC, or central line not in place; IV infusing or unable to flush. Given 10/03/2023 3:14 PM EST 500 Units Hydrocortisone Sod Suc (PF) (Solu-Cortef) inj 100 mg 100 mg, IV Push, ONCE PRN Other, Hypersensitivity Reaction, Starting on Sun10/03/23 at 1343, Until Dania 10/04/23 at 1342, For 24 hours LORAzepam (Ativan) tab 0.5 mg 0.5 mg, Oral, ONCE PRN Anxiety, Nausea, Starting on Sun10/03/23 at 1445, Until Discontinued NSS infusion Intravenous, at 50 mL/hr, PRN, Starting on Sun10/03/23 at 1445, Until Discontinued, Maintenance line Start Infusion 10/03/2023 1:40 PM EST 50 mL/hr oxygen GAS Inhalation, OXYGEN, First dose on Sun10/03/23 at 1600, Until Discontinued, Device/Managed by: Low Flow Device, Goal SPO2 (%): 91-95, Starting Device: Nasal Cannula, Initial Flow Rate (LPM): 2, Lowest Support: Nasal Cannula: Flow 0-6 LPM. Titrate up/down by 1 LPM., Higher Support: Non-Rebreather (NRB) Mask: Minimum of 10 LPM. Titrate to maintain bag inflation., Titration Interval: Q2 minutes and as needed., Notify Provider: For sudden DECREASE in resting SPO2 to less than 85% and when escalating delivery device., Wean patient off Oxygen when the oxygen saturation is greater than or equal to 93% sodium chloride 0.9 % flush central line 10 mL 10 mL, IV Push, PRN Other, IV Flush, Starting on Sun10/03/23 at 1343, Until Dania 10/04/23 at 1342, For 24 hours, Do not flush if lock, PICC, or central line not in place; IV infusing or unable to flush. Given 10/03/2023 3:14 PM EST 10 mL Inactive Administered Medications - up to 3 most recent administrations Medication Order MAR Action Action Date Dose Rate Site etoposide (VEPESID) 140 mg in NSS 500 mL infusion 140 mg (rounded from 136.8 mg = 80 mg/m2 1.71 m2 Treatment Plan BSA from Recorded weight), IV Piggyback, ONCE, 1 dose, On Sun10/03/23 at 1515, Administer over 60 Minutes, Recommended concentration is less than or equal to 0.4 mg/mL. If concentration is greater than 0.4 mg/mL recommend to administer through 0.22 micron low protein binding filter. Start Infusion 10/03/2023 2:12 PM EST 140 mg 500 mL/hr ondansetron (Zofran) tab 8 mg 8 mg, Oral, ONCE, On Sun10/03/23 at 1445, For 1 dose, Give 30 minutes prior to chemotherapy. Given 10/03/2023 1:50 PM EST 8 mg documented in this encounter Advance Directives Documents on File Type Date Recorded Patient Histologic Aide Expl anation POLST 10/15/2019 3:17 PM POLST POLST 03/05/2019 POLST FORM Advance Directives and Living Will 01/27/2013 LIVING WILL Advance Directives and Living Will 01/27/2013 LIVING WILL Power of Cnc Machine Programmer 01/27/2013 POWER OF A TTORNEY Power of Cnc Machine Programmer 01/27/2013 POWER OF A TTORNEY Healthcare Agents on File Name Relationship Healthcare Agent Relationship Communication Cydney Benito Other - (no specific identity) Second Alternate Health Care Agent Anyi More Adult Child Health Care Roberth r of Cnc Machine Programmer Care Teams Cloth Examiner Machine Relationship Specialty Start Date End Date Rhys Humphrey MD [address] [place] [address] [place] [address] PCP - General Family Medicine 06/09/21 documented as of this encounter
--- OUTSIDE RECORDS SUMMARY | 2023-10-29 06:20 | External Medical Summary | Summary of Care ---
Author Name Unknown Organization [facility] Address [address] [place] [address] Phone [phone] Care Team Providers Care Hand Former Helper Name Role Phone Rhys Humphrey MD Primary Care Provide r Reason for Visit * Reason Comments [facility]: Maintenance Encounter Details Date Type Department Care Team (Late st Contact Info) Description 09/28/2023 2:30 PM EST Home Visit [facility], [facility] [address] [facility] [place] [address] Sarah Vitale, RN [address] [place] [address] Allergies Active Allergy Reactions Criticality Noted Date Comments Adhesive Tape Other (Please comment),Hives High 09/29/2008 Caused welts Dextromethorphan-Gu aifenesin Neuro complications (Please comment) Medium 12/23/2021 Feels lightheaded/"foggy" documented as of this encounter (statuses as of 10/02/2023) Medications Medication Sig Dispensed Refills Start Date [...] before bedtime. 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 30 Tablet 0 09/14/2023 Active Loratadine 10 MG Oral Tablet [...] for Nausea. 90 Tablet 3 09/28/2023 Active documented as of this encounter (statuses as of 10/02/2023) Active Problems Problem Noted Date Diagnosed Date [...] as of this encounter (statuses as of 10/02/2023) Resolved Problems Problem Noted Date Diagnosed Date [...] as of this encounter (statuses as of 10/02/2023) Immunizations Name Administration Dates Next Due COVID-19 mRNA, LNP-s, No Pre serve, 2-Dose Series ([employer]) 07/11/2021,11/14/2020,10/24/2020 Covid-19, Mrna, Lnp-s, Pf, B ivalent, 30 Mcg, IM, 12 yrs and above (Pfizer) 07/21/2022 Pneumococcal Conjugate Vacc, 13 Valent (Prevnar) 03/16/2015 Pneumococcal Conjugate Vacci ne, 20-valent ([id number]) 07/21/2022 Pneumococcal Polysaccharide PPV23 (Pneumovax) 03/05/2019,07/18/2007 Season [...] Sign Reading Time Taken Comments Blood Pressure 136/64 09/28/2023 3:05 PM EST Pulse 72 09/28/2023 3:05 PM EST Temperature 36.3 C (97.4 F) 09/28/2023 3:05 PM ES T Respiratory Rate 18 09/28/2023 3:05 PM EST Oxygen Saturation 96% 09/28/2023 3:05 PM EST Inhaled Oxygen Concentration - - Weight - - Height - - Body Mass Index - - documented in this encounter Progress Notes * Sarah Vitale, RAYNA - 09/28/2023 3:01 PM EST Images from the original note were not included. 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 Per patient, she will receive treatment every 4 weeks. Reports feeling well- does have some anxiety about next Sunday. VS wnl Lungs clear bilaterally Sob with exertion Oxygen at 2L via n/c No LE edema noted Voiding without difficulty Bowels wnl- per report Appetite good Taking fluids well Problems/Symptoms: Review of Systems Constitutional: Negative. HENT: Negative. Eyes: Negative. Respiratory: Positive for shortness of breath. Cardiovascular: Negative. Gastrointestinal: Negative. Endocrine: Negative. Genitourinary: Negative. Musculoskeletal: Negative. Skin: Negative. Allergic/Immunologic: Negative. Neurological: Negative. Hematological: Negative. Psychiatric/Behavioral: Negative. Physical Exam: BP 136/64 (BP Site: Left Arm, BP Position: Sitting, BP Cuff Size: Regular) | Pulse 72 | Temp 36.3 C (97.4 F) (Tympanic) | Resp 18 | SpO2 96% Pain 0 Physical Exam Constitutional: Appearance: Normal [...] and Affect: Mood normal. Behavior: Behavior normal. [facility]-10 Completed this Visit: No. Routine visit Treatment/Plan: Continue medications as prescribed Keep all upcoming MD appointments Fall precautions Fluids encouraged BP/Weights daily Oxygen at 2L via n/c continuous RN CM follow up in 3 weeks Home Interventions Provided: Reinforced current Plan of Care, including self-management and medication regimen Patient Needs to Remember: Call [facility] with any medical concerns/ red flags Referrals Needed: N/a Follow Up: Is there cellular connectivity/connectivity in the home? Yes Does the patient have internet in the home? No Patient encouraged to call the intake phone number for all urgent but not emergent issues. Scheduled to follow up with patient in 3 weeks. Sarah Bhandari RN 09/28/2023 3:01 PM documented in this encounter Plan of Treatment Upcoming Encounters Date Type Department Care Team (Late st Contact Info) Description 10/03/2023 1:15 PM EST Hem/Onc Treatment Hematology/Oncology Treatment, [address] [place] [address] Apple, Chair 1 Hem Onc Scenery [address] [facility] [place] [address] 10/04/2023 1:15 PM EST Hem/Onc Treatment [address]ematology[address] [address] Apple, Chair 7 Hem Onc Scenery 200 [facility] [place] [address] 10/16/2023 11:30 AM EST Office Visit Gastroenterology, [facility] [address] [place] [address] Lizzette Silva CRNP [address] [place] [address] 10/16/2023 3:00 PM EST Nutrition Services [facility], [facility] [address] [facility] [place] [address] Lovely Bravo, SHAKIRN [address] [facility] [place] [address] 10/22/2023 4:00 PM EST Home Visit [facility], [facility] [address] [place] [address] Sarah Vitale, RN [address] [place] [address] 12/10/2023 9:20 AM EDT Office Visit Family Medicine [address] [place] [phone] Rhys Humphrey MD [address] [place] [address] [place] [address] 12/26/2023 7:30 AM EDT Office Visit Sleep Disorders Ctr [facility] [address] [place] [phone] Sosa Freeman CRNP [address] [place] [address] 12/27/2023 11:00 AM EDT Office Visit Cardiology [address] [place] [address] Mi Neil, PAMateo [address] [place] [address] 03/18/2024 9:00 AM EDT Nurse Only Ancillary [address] [place] [address] [place], Nurse Annual [address] [place] [address] Scheduled Procedures Name Priority Associated Diagnoses Date/Ti [...] D LEVEL ONCE IN A LIFETIME-USE SMARTSET# [id number] Completed 06/29/2020, 03/16/2015 Pneumococcal Vaccine: 65+ Years [...] Documents on File Type Date Recorded 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 10/15/2019 3:17 PM POLST POLST 03/05/2019 POLST FORM Advance Directives and Living Will 01/27/2013 LIVING WILL Advance Directives and Living Will 01/27/2013 LIVING WILL Power of Watershed Tender 01/27/2013 POWER OF A TTORNEY Power of Watershed Tender 01/27/2013 POWER OF A TTORNEY Healthcare Agents on File Name Relationship Healthcare Agent Relationship Communication Cydney Benito Other - (no specific identity) Second Alternate Health Care Agent Anyi More Adult Child Health Care Roberth r of Watershed Tender Care Teams Hand Former Helper Relationship Specialty Start Date End Date Rhys Humphrey MD [address] [place] [address] [place] [address] PCP - General Family Medicine 06/09/21 documented as of this encounter
--- OUTSIDE RECORDS SUMMARY | 2023-10-29 06:20 | External Medical Summary | Summary of Care ---
Author Name Unknown Organization [facility] Address [address] [place] [address] Phone [phone] Care Team Providers Care Property Analyst Name Role Phone Rhys Humphrey MD Primary Care Provide r Reason for Visit * Reason Onset Date Comments Med Request 09/28/2023 Encounter Details Date Type Department Care Team (Late st Contact Info) Description 09/28/2023 Telephone Hematology/Oncology [facility] [place] [address] [place] [address] Martínez Lopes MD [address] [place] [address] Med Request Allergies Active Allergy Reactions Criticality Noted Date Comments Adhesive Tape Other (Please comment),Hives High 09/29/2008 Caused welts Dextromethorphan-Gu aifenesin Neuro complications (Please comment) Medium 12/23/2021 Feels lightheaded/"foggy" documented as of this encounter (statuses as of 09/28/2023) Medications Medication Sig Dispensed Refills Start Date [...] Each 0 11/11/2019 Active Nebulizers (NEBULIZER COMPRESSOR) MISCIndications: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 Use as directed. 1 Each 1 11/17/2019 Active Iron 325 (65 Fe) MG Oral Tablet Take 1 Tablet by mouth daily. 0 Active Cranberry 500 MG Oral Capsule Take 1 Capsule by mouth in the morning and 1 Capsule before bedtime. 50 Cap 0 01/18/2021 Active Znnjfvj-Hucssanbl-V inc 333-133-5 MG Oral Tablet Take 1 [...] :COPD, group D, by GOLD 2017 classification ([facility] [...] (HCC),COPD, group D, by GOLD 2017 classification ([facility]) Inhale 1 Puff by mouth in the morning. In addition to anoro. 30 Each 11 08/20/2023 Active Anoro Ellipta 62.5-25 MCG/ACT Inhalation Aerosol Powder Breath Activated (umeclidinium-vilan terol)Indications:C OPD, moderate (HCC),COPD, group D, by GOLD 2017 classification ([facility]) Inhale 1 Puff by mouth in the morning. 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 60 Tablet 2 09/14/2023 Active Allopurinol 100 MG Oral Tablet (Zyloprim)Indicatio [...] 09/20/2023 Active Ondansetron HCl 8 MG Oral TabletIndications:S mall cell neuroendocrine carcinoma of lung (HCC),Metastasis to mediastinal lymph node (HCC) Take 1 Tablet by mouth every 8 hours as needed for Nausea. 90 Tablet 3 09/28/2023 Active Ondansetron HCl 8 MG Oral TabletIndications:S mall cell neuroendocrine carcinoma of lung (HCC),Metastasis to mediastinal lymph node (HCC) Take 1 Tablet by mouth every 8 hours as needed for Nausea. 30 Tablet 3 09/14/2023 3 Discontinu ed(Refill) documented as of this encounter (statuses as of 09/28/2023) Active Problems Problem Noted Date Diagnosed Date [...] as of this encounter (statuses as of 09/28/2023) Resolved Problems Problem Noted Date Diagnosed Date [...] as of this encounter (statuses as of 09/28/2023) Immunizations Name Administration Dates Next Due COVID-19 mRNA, LNP-s, No Pre serve, 2-Dose Series ([employer]) 07/11/2021,11/14/2020,10/24/2020 Covid-19, Mrna, Lnp-s, Pf, B ivalent, 30 Mcg, IM, 12 yrs and above (Pfizer) 07/21/2022 Pneumococcal Conjugate Vacc, 13 Valent (Prevnar) 03/16/2015 Pneumococcal Conjugate Vacci ne, 20-valent ([id number]) 07/21/2022 Pneumococcal Polysaccharide PPV23 (Pneumovax) 03/05/2019,07/18/2007 Season [...] encounter Miscellaneous Notes * Telephone Encounter - Gris Diaz CRNP - 09/28/2023 11:19 AM EST E prescribed * Telephone Encounter - Elida Gonzalez, diamond broker - 09/28/2023 8:24 AM EST Pharmacy called and asked for pt to get 90 pills at a time on the Ondansetron HCl 8 MG Oral Tablet .due to pt getting bubble packed.send [facility] . [facility] you, [facility] II [facility]( formally Telepharmacy ) 09/28/2023, 8:26 AM documented in this encounter Plan of Treatment Upcoming Encounters Date Type Department Care Team (Late st Contact Info) Description 09/28/2023 2:30 PM EST [facility] Visit [facility], [facility] [address] [facility] [place] [address] Sarah Vitale, RAYNA [address] [facility] [place] [address] 10/02/2023 8:40 AM EST Laboratory Laboratory [facility] [place] 200 [facility] [place] [phone] Apple, Lab Scenery [address] [facility] [place] [address] 10/02/2023 9:45 AM EST Hem/Onc Treatment Hematology/Oncology Treatment, [place] [address] [facility], [place] [address] Apple, Chair 1 Hem Onc Scenery 200 [facility] [place] [address] 10/03/2023 1:15 PM EST Hem/Onc Treatment Hematology/Oncology Treatment, [place] [address] [facility], [place] [address] Apple, Chair 1 Hem Onc Scenery [address] [facility] [place] [address] 10/04/2023 1:15 PM EST Hem/Onc Treatment Hematology/Oncology Treatment, [place] [address] [facility], [place] [address] Apple, Chair 7 Hem Onc Scenery [address] [facility] [place] [address] 10/16/2023 11:30 AM EST Office Visit Gastroenterology, [facility] [address] [place] [address] Lizzette Silva CRNP [address] [place] [address] 10/16/2023 3:00 PM EST Nutrition Services [facility], [facility] [address] [facility] [place] [address] Lovely Bravo, RDN [address] [facility] [place] [address] 12/10/2023 9:20 AM EDT Office Visit Family Medicine [address] [place] [phone] Rhys Humphrey MD [address] [place] [address] [place] [address] 12/26/2023 7:30 AM EDT Office Visit [facility] Disorders Ctr [facility] [address] [place] [phone] Sosa Freeman CRNP [address] [place] [address] 12/27/2023 11:00 AM EDT Office Visit Cardiology [address] [place] [address] Mi Neil PA-C [address] [place] [address] 03/18/2024 9:00 AM EDT Nurse Only Ancillary [address] [place] [address] [place], Nurse [address] [place] [address] Scheduled Procedures Name Priority Associated Diagnoses Date/Ti [...] PAST YEAR FOR COPD 08/10/2024 08/10/2023 GFR 09/17/2024 09/17/2023, 01/2023, 07/03/2023, Additional history exists Albumin/Creatinine Ratio 04/28/2025 04/28/2022 DTaP,Tdap,and Td Vaccines (3 - Td or Tdap) 09/17/2029 09/17/2019, 08/10/2011, 10/01/2001 Zoster Vaccines Completed 04/25/2020, 08/31, 07/22/2012 VITAMIN D LEVEL ONCE IN A LIFETIME-USE SMARTSET# [id number] Completed 06/29/2020, 03/16/2015 Pneumococcal Vaccine: 65+ Years [...] Documents on File Type Date Recorded 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 POLST 10/15/2019 3:17 PM POLST POLST 03/05/2019 POLST FORM Advance Directives and Living Will 01/27/2013 LIVING WILL Advance Directives and Living Will 01/27/2013 LIVING WILL Power of Container Filler 01/27/2013 POWER OF A TTORNEY Power of Container Filler 01/27/2013 POWER OF A TTORNEY Healthcare Agents on File Name Relationship Healthcare Agent Relationship Communication Cydney Benito Other - (no specific identity) Second Alternate Health Care Agent Anyi More Adult Child Health Care Roberth r of Container Filler Care Teams Property Analyst Relationship Specialty Start Date End Date Rhys Humphrey MD [address] [place] [address] [place] [address] PCP - General Family Medicine 06/09/21 documented as of this encounter
--- OUTSIDE RECORDS SUMMARY | 2023-10-29 06:20 | External Medical Summary ---
Author Name Unknown Address Unknown Organization [id number] [address] [place] [address] Laboratory Report Ordering Provider Test Date Status TIERA GARCIA 10/02/2023 09:00:39 Final Observation Date Value Abnormality Reference (Units ) Status BUN 10/02/2023 09:00:39 19 6-20 (mg/dL) Final Creatinine 10/02/2023 09:00:39 0.8 0.5-1.0 (mg/dL) Final Glomerular filtration rate/1.73 sq M.predicted [Volume Rate/Area] in Serum, Plasma or Blood by Creatinine-based formula (CKD-EPI) 10/02/2023 09:00:39 73 >=60 (mL/min) Final eGFR is calculated based on the CKD-EPI 2020 equation SODIUM 10/02/2023 09:00:39 140 135-146 (m mol/L) Final Potassium 10/02/2023 09:00:39 3.6 3.5-5.1 (m mol/L) Final Cl 10/02/2023 09:00:39 103 98-107 (mm ol/L) Final CO2 10/02/2023 09:00:39 29 22-32 (mmo l/L) Final Anion gap 10/02/2023 09:00:39 8 7-15 (mmol /L) Final Glucose 10/02/2023 09:00:39 114 70-120 (mg /dL) Final Albumin 10/02/2023 09:00:39 3.7 Below low normal 3.8 -5.0 (g/dL) Final AST (Aspartate aminotransferase) 10/02/2023 09:00:39 16 10-35 (U/L) Fin al Alk Phos 10/02/2023 09:00:39 68 35-130 (U/ L) Final Bilirubin, Total 10/02/2023 09:00:39 0.2 <=1 .2 (mg/dL) Final Calcium 10/02/2023 09:00:39 9.2 8.4-10.2 ( mg/dL) Final Protein 10/02/2023 09:00:39 6.4 6.0-8.3 (g /dL) Final ALT (Alanine aminotransferase) 10/02/2023 09:00:39 8 Below low normal 10-35 (U/L) Final Performing Location [facility] [address] [place] [address]
--- OUTSIDE RECORDS SUMMARY | 2023-10-29 06:20 | External Medical Summary | Summary of Care ---
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) Procedures [place] CARBOPLATIN INJECTION [place] FOSAPREPITANT INJECTION W[place] ETOPOSIDE 10 MG INJ W[place] INJ, ATEZOLIZUMAB,10 MG W[place] INJECTION, UDENYCA 0.5 MG Martínez Lopes MD [address] [place] [address] Anc Hem/Onc Scenery [address] [address] Referral ID Status Reason Start Date Expiration Date V isits Requested Visits Authorized [id number] Authorized 09/21/2023 03/22/2024 999 [id number] Encounter Details Date Type Department Care Team (Latest Contact Info) Description 10/02/2023 9:45 AM EST Hem/Onc Treatment Hematology/Oncolog y Treatment, [place] [address] [place] [address] Apple, Chair 1 Hem Onc Scenery 200 [facility] [place] [address] Encounter for antineoplastic chemotherapy*; Small cell neuroendocrine [...] before bedtime. 50 Cap 0 01/18/2021 Active Fvazdoz-Xbewaxjjp-Dq nc 333-133-5 MG Oral Tablet Take 1 [...] MCG/ACT Inhalation Aerosol Powder Breath Activated (umeclidinium-vilant ed)Indications:CORNETIST D, moderate (HCC),COPD, group D, by GOLD [...] (dyspnea on exertion) 01/07/2013 Obstructive sleep apnea 11/22/201106/2018 Overview: 11/22/11 -- auto CPAP 5-15 01/15/14 [...] mRNA, LNP-s, No Pre serve, 2-Dose Series (MedPlexus) 07/11/2021,11/14/2020,10/24/2020 Covid-19, Mrna, Lnp-s, Pf, B ivalent, 30 Mcg, IM, 12 yrs and above (MedPlexus) 07/21/2022 Pneumococcal Conjugate Vacc, 13 Valent (Prevnar) 03/16/2015 Pneumococcal Conjugate Vacci ne, 20-valent (Cooltum53) 07/21/2022 Pneumococcal Polysaccharide PPV23 (Pneumovax) 03/05/2019,07/18/2007 Season [...] Sign Reading Time Taken Comments Blood Pressure 136/77 10/02/2023 10:55 AM EST Pulse 76 10/02/2023 9:55 AM EST Temperature 36.4 C (97.5 F) 10/02/2023 9:55 AM ES T Respiratory Rate 24 10/02/2023 9:55 AM EST Oxygen Saturation 95% 10/02/2023 9:55 AM EST on 3L NC Inhaled Oxygen Concentration - - Weight 65.9 kg (145 lb 3.2 oz) 10/02/2023 9:55 A M EST Height - - Body Mass Index 28.36 09/14/2023 2:41 PM EST documented in this encounter Nursing Notes * Mariel Bergman RN - 10/02/2023 2:06 PM EST Goals: Patient will remain free from injury. Possible barriers to meeting goals: ambulation with IV pole Stability of the patient: Moderately stable - low risk of patient condition declining or worsening Summary regarding today's goals: Met: patient without injury during treatment today. Functional status at today's visit: Ambulatory and [...] symptoms or adverse side effects during treatment. Pt tolerated ordered medications well. No complaints. Discharged in stable condition. * Mariel Bergman RN - 10/02/2023 11:09 AM EST Chair 5 Pt here for first cycle of chemo. Accompanied by daughter. States she is nervous. Elevated BP notedwhich patient states happens when she goes to the doctor. Also states she has been SOB, coughing inthe morning with clear sputum and sinus congestion. Reinforced teaching to patient and daughter about treatment room, treatment process, and side effects. Both verbalize understanding. Call narayan provided to patient. Chemo agents C1D1 Tecentriq, Carboplatin, Etoposide Appetite "not good" Nausea/Vomiting denies Diarrhea denies Constipation denies Mucositis denies Fatigue at times Bleeding denies Infection denies Rash denies Numbness tingling denies Pain denies Radiation no ABN Labs WNL for treatment Alt in Tx: no Return in 1 day Safety and Risk for Injury Patient will remain free from injury. Ensure appropriate safety devices are available. Provide and maintain safe environment. documented in this encounter Plan of Treatment Upcoming Encounters Date Type Department Care Team (Late st Contact Info) Description 10/03/2023 1:15 PM EST Hem/Onc Treatment Hematology/Oncology Treatment, [address] [address] Apple, Chair 1 Hem Onc Scenery [address] [place] [address] [place] [address] 10/04/2023 1:15 PM EST Hem/Onc Treatment Hematology/Oncology Treatment, [address] [place] [address] Apple, Chair 7 Hem Onc Scenery [address] [place] [address] [place] [address] 10/16/2023 11:30 AM EST Office Visit [facility], [facility] [address] Lizzette Silva CRNP [facility] [address] 10/16/2023 3:00 PM EST Nutrition Services [facility], [facility] [address] [facility] [place] [address] Lovely Bravo, ANIBAL [address] [facility] [place] [address] 10/22/2023 4:00 PM EST Home Visit [facility], [facility] [address] [place] [address] Sarah Vitale, RAYNA [address] [place] [address] 12/10/2023 9:20 AM EDT Office Visit Family Medicine [address] [place] [phone] Rhys Humphrey MD [address] [place] [address] [place] [address] 12/26/2023 7:30 AM EDT Office Visit Sleep Disorders [facility] [address] [place] [phone] Sosa Freeman CRNP [address] [place] [address] 12/27/2023 11:00 AM EDT Office Visit Cardiology [address] [place] [address] Mi Neil, PARuthannC [address] [place] [address] 03/18/2024 9:00 AM EDT Nurse Only Ancillary [address] [place] [address] Stanton, Nurse [address] [place] [address] Scheduled Procedures Name Priority Associated Diagnoses Date/Ti [...] D LEVEL ONCE IN A LIFETIME-USE SMARTSET# 14450 Completed 06/29/2020, 03/16/2015 Pneumococcal Vaccine: 65+ Years [...] ONCE PRN Other, Hypersensitivity Reaction, Starting on Sun10/02/23 at 1020, Until 10/03/23 at 1019, For 24 hours EPINEPHrine 1 MG/ML inj 0.3 mg 0.3 mg, Intramuscular, ONCE PRN Other, Hypersensitivity Reaction or Anaphylaxis, Starting on Sun10/02/23 at 1020, Until Sun10/03/23 at 1019, For 24 hours hEParin 100 UNIT/ML Lock Flush inj 500 Units 500 Units (5 mL), IV Lock, PRN Other, IV Flush, Starting on Sun10/02/23 at 1020, Until Sun10/03/23 at 1019, For 24 hours, Do not flush if lock, PICC, or central line not in place; IV infusing or unable to flush. Given 10/02/2023 1:55 PM EST 500 Units Hydrocortisone Sod Suc (PF) (Solu-Cortef) inj 100 mg 100 mg, IV Push, ONCE PRN Other, Hypersensitivity Reaction, Starting on Sun10/02/23 at 1020, Until Sun10/03/23 at 1019, For 24 hours LORAzepam (Ativan) tab 0.5 mg 0.5 mg, Oral, ONCE PRN Anxiety, Nausea, Starting on Sun10/02/23 at 1130, Until Discontinued NSS infusion Intravenous, at 50 mL/hr, PRN, Starting on Sun10/02/23 at 1130, Until Discontinued, Maintenance line Start Infusion 10/02/2023 10:20 AM EST 50 mL/hr oxygen GAS Inhalation, OXYGEN, First dose on Sun10/02/23 at 1100, Until Discontinued, Device/Managed by: Low Flow Device, [...] Push, PRN Other, IV Flush, Starting on Sun10/02/23 at 1020, Until Sun10/03/23 at 1019, For 24 hours, Do not flush if lock, PICC, or central line not in place; IV infusing or unable to flush. Given 10/02/2023 1:55 PM EST 10 mL Inactive Administered Medications - up to 3 most recent administrations Medication Order MAR Action Action Date Dose Rate Site Atezolizumab (Tecentriq) 1,200 mg in NSS 250 mL infusion 1,200 mg, IV Piggyback, ONCE, 1 dose, On Sun10/02/23 at 1200, Administer over 60 Minutes, Administer first infusion over 60 minutes and if tolerated, subsequent doses may be infused over 30 minutes. Start Infusion 10/02/2023 11:00 AM EST 1,200 mg 250 mL/hr CARBOplatin (Paraplatin) 282 mg in D5W 250 mL infusion 282 mg (rounded from 281.6 mg, Target AUC = 4), IV Piggyback, at 500 mL/hr Administer over 30 Minutes, PROTECT FROM LIGHT (Max Creatinine Clearance at 125 ml/min for calculating AUC dose), ONCE, 1 dose, On Sun10/02/23 at 1300 Start Infusion 10/02/2023 12:13 PM EST 282 mg 500 mL/hr etoposide (VEPESID) 140 mg in NSS 500 mL infusion 140 mg (rounded from 136.8 mg = 80 mg/m2 1.71 m2 Treatment Plan BSA from Recorded weight), IV Piggyback, ONCE, 1 dose, On Sun10/02/23 at 1330, Administer over 60 Minutes, Recommended concentration is less than or equal to 0.4 mg/mL. If concentration is greater than 0.4 mg/mL recommend to administer through 0.22 micron low protein binding filter. Start Infusion 10/02/2023 12:49 PM EST 140 mg 500 mL/hr Fosaprepitant Dimeglumine (Emend) 150 mg, ondansetron (Zofran) 16 mg, dexamethasone sodium phosphate 12 mg in NSS 250 mL Infusion 150 mg, IV Piggyback, ONCE, 1 dose, On Sun10/02/23 at 1130, Administer over 30 Minutes, Give 30 minutes prior to chemotherapy. Infuse over 30 minutes. Start Infusion 10/02/2023 10:22 AM EST 150 mg 500 mL/hr documented in this encounter Advance Directives Documents on File Type Date Recorded Patient Replenishment Analyst Expl anation POLST 10/15/2019 3:17 PM POLST POLST 03/05/2019 POLST FORM Advance Directives and Living Will 01/27/2013 LIVING WILL Advance Directives and Living Will 01/27/2013 LIVING WILL Power of Survey Questionnaire Designer 01/27/2013 POWER OF A TTORNEY Power of Survey Questionnaire Designer 01/27/2013 POWER OF A TTORNEY Healthcare Agents on File Name Relationship Healthcare Agent Relationship Communication Cydney Benito Other - (no specific identity) Second Alternate Health Care Agent Anyi More Adult Child Health Care Robreth r of Survey Questionnaire Designer Care Teams Store Clerk Relationship Specialty Start Date End Date Rhys Humphrey MD [address] [place] [address] [place] [address] PCP - General Family Medicine 06/09/21 documented as of this encounter
--- OUTSIDE RECORDS SUMMARY | 2023-10-29 06:20 | External Medical Summary ---
Author Name Unknown Address Unknown Organization [id number]:[facility] [place] - [address] [place] [address] Laboratory Report Ordering Provider Test Date Status TIERA GARCIA 10/02/2023 09:00:39 Final Observation Date Value Abnormality Reference (Units ) Status TSH 10/02/2023 09:00:39 2.97 0.27-4.20 (uIU/mL) Final Performing Location LABORATORY C - [address] [place] [address]
--- OUTSIDE RECORDS SUMMARY | 2023-10-29 06:20 | External Medical Summary | Summary of Care ---
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) Procedures [place] CARBOPLATIN INJECTION [place] FOSAPREPITANT INJECTION [place] ETOPOSIDE 10 MG INJ [place] INJ, ATEZOLIZUMAB,10 MG [place] INJECTION, UDENYCA 0.5 MG Martínez Lopes MD [address] [place] [address] Anc Hem/Onc Scenery [address] [address] Referral ID Status Reason Start Date Expiration Date V isits Requested Visits Authorized [id number] Authorized 09/21/2023 03/22/2024 999 999 Encounter Details Date Type Department Care Team (Latest Contact Info) Description 10/04/2023 1:15 PM EST Hem/Onc Treatment Hematology/Oncolog y Treatment, [address] [address] Apple, Chair 7 Hem Onc [address] [place] [address] Encounter for antineoplastic chemotherapy*; Small cell neuroendocrine [...] before bedtime. 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),COPD, group D, by GOLD [...] EVERY DAY 90 Tablet 2 10/03/2023 Active documented as of this encounter (statuses [...] mRNA, LNP-s, No Pre serve, 2-Dose Series (Cloudmeter) 07/11/2021,11/14/2020,10/24/2020 Covid-19, Mrna, Lnp-s, Pf, B ivalent, 30 Mcg, IM, 12 yrs and above (Cloudmeter) 07/21/2022 Pneumococcal Conjugate Vacc, 13 Valent (Prevnar) 03/16/2015 Pneumococcal Conjugate Vacci ne, 20-valent (Snzpimw41) 07/21/2022 Pneumococcal Polysaccharide PPV23 (Pneumovax) 03/05/2019,07/18/2007 Season [...] Sign Reading Time Taken Comments Blood Pressure 148/58 10/04/2023 1:25 PM EST Pulse 71 10/04/2023 1:25 PM EST Temperature 36.4 C (97.6 F) 10/04/2023 1:25 PM ES T Respiratory Rate 20 10/04/2023 1:25 PM EST Oxygen Saturation 95% 10/04/2023 1:25 PM EST Inhaled Oxygen Concentration - - Weight - - Height - - Body Mass Index - - documented in this encounter Nursing Notes * Gi Mares RN - 10/04/2023 4:24 PM EST Pt completed treatment without issues. PIV removed. Goals: Pt will remain free from injury. Possible barriers to meeting goals: pt is a high fall risk Stability of the patient: Moderately stable - low risk of patient condition declining or worsening Summary regarding today's goals: Met: Pt remained free from injury during treatment today. Discharged in stable condition. No coverage. * Gi Mares RN - 10/04/2023 2:25 PM EST Chair 5, Etoposide D3. Pt has no acute symptoms/concerns to report since treatment yesterday. Pt stated she had no issues overnight. PIV assessed for patency; NSS infusing. Safety and Risk for Injury Patient will remain free from injury. Ensure appropriate safety devices are available. Provide and maintain safe environment. Functional status at today's visit: Ambulatory and [...] symptoms or adverse side effects during treatment. documented in this encounter Plan of Treatment Upcoming Encounters Date Type Department Care Team (Late st Contact Info) Description 10/05/2023 3:00 PM EST Immunization/Injecti on Hematology/Oncology Treatment, [place] [address] [place] [address] Nurse, Med [address] [place] [address] 10/16/2023 11:30 AM EST Office Visit Gastroenterology, [facility] 132 [facility] [place] [address] Lizzette Silva CRNP 132 [facility] [place] [address] 10/16/2023 3:00 PM EST Nutrition Services [facility], [facility] [address] [place] [address] Lovely Bravo RDN [address] [facility] [place] [address] 10/22/2023 4:00 PM EST Home Visit [facility], [facility] 132 [facility] [place] [address] Sarah Vitale RN 132 [facility] [place] [address] 10/30/2023 8:00 AM EST Laboratory Laboratory [facility] [place] [phone] [place], Lab [facility] [place] [address] 10/30/2023 8:30 AM EST Office Visit Hematology/Oncology [facility] [address] [facility] [place] [address] Gris Diaz CRNP 400 [facility] [place] [address] 10/30/2023 9:00 AM EST [facility] [address] [place] [address] Apple, Chair 6 Hem Onc [facility] [place] [address] 10/31/2023 1:00 PM EST Hem/Onc Treatment Hematology/Oncology Treatment, [place] [address] [facility], [place] [address] Apple, Chair 6 Hem Onc Scenery [address] [place] [address] 11/01/2023 1:00 PM EST Hem/Onc Treatment [facility], [place] [facility] [place] [address] Apple, Chair 6 Hem Onc Scenery [address] [place] [address] 12/10/2023 9:20 AM EDT Office Visit Family Medicine [address] [place] [phone] Rhys Humphrey MD [address] [place] [address] [place] [address] 12/26/2023 7:30 AM EDT Office Visit Sleep Disorders [facility] [address] [place] [phone] Sosa Freeman CRNP [address] [place] [address] 12/27/2023 11:00 AM EDT Office Visit Cardiology [address] [place] [address] Mi Neil PA-C [address] [place] [address] 03/18/2024 9:00 AM EDT Nurse Only Ancillary [address] [place] [address] [place], Nurse Annual [address] [place] [address] Scheduled Procedures Name Priority Associated Diagnoses Date/Ti [...] D LEVEL ONCE IN A LIFETIME-USE SMARTSET# 92143 Completed 06/29/2020, 03/16/2015 Pneumococcal Vaccine: 65+ Years [...] ONCE PRN Other, Hypersensitivity Reaction, Starting on Sun10/04/23 at 1325, Until Sun10/05/23 at 1324, For 24 hours EPINEPHrine 1 MG/ML inj 0.3 mg 0.3 mg, Intramuscular, ONCE PRN Other, Hypersensitivity Reaction or Anaphylaxis, Starting on Sun10/04/23 at 1325, Until Sun10/05/23 at 1324, For 24 hours hEParin 100 UNIT/ML Lock Flush inj 500 Units 500 Units (5 mL), IV Lock, PRN Other, IV Flush, Starting on Sun10/04/23 at 1325, Until Sun10/05/23 at 1324, For 24 hours, Do not flush if lock, PICC, or central line not in place; IV infusing or unable to flush. Hydrocortisone Sod Suc (PF) (Solu-Cortef) inj 100 mg 100 mg, IV Push, ONCE PRN Other, Hypersensitivity Reaction, Starting on Sun10/04/23 at 1325, Until Sun10/05/23 at 1324, For 24 hours LORAzepam (Ativan) tab 0.5 mg 0.5 mg, Oral, ONCE PRN Anxiety, Nausea, Starting on Sun10/04/23 at 1430, Until Discontinued NSS infusion Intravenous, at 50 mL/hr, PRN, Starting on Sun10/04/23 at 1430, Until Discontinued, Maintenance line Start Infusion 10/04/2023 1:41 PM EST 50 mL/hr oxygen GAS Inhalation, OXYGEN, First dose on Sun10/04/23 at 1600, Until Discontinued, Device/Managed by: Low [...] Push, PRN Other, IV Flush, Starting on Dania 10/04/23 at 1325, Until Sun10/05/23 at 1324, For 24 hours, Do not flush if lock, PICC, or central line not in place; IV infusing or unable to flush. Inactive Administered Medications - up to 3 most recent administrations Medication Order MAR Action Action Date Dose Rate Site etoposide (VEPESID) 140 mg in NSS 500 mL infusion 140 mg (rounded from 136.8 mg = 80 mg/m2 1.71 m2 Treatment Plan BSA from Recorded weight), IV Piggyback, ONCE, 1 dose, On Dania 10/04/23 at 1500, Administer over 60 Minutes, Recommended concentration is less than or equal to 0.4 mg/mL. If concentration is greater than 0.4 mg/mL recommend to administer through 0.22 micron low protein binding filter. Start Infusion 10/04/2023 1:58 PM EST 140 mg 500 mL/hr ondansetron (Zofran) tab 8 mg 8 mg, Oral, ONCE, On Dania 10/04/23 at 1430, For 1 dose, Give 30 minutes prior to chemotherapy. Given 10/04/2023 1:40 PM EST 8 mg documented in this encounter Advance Directives Documents on File Type Date Recorded Patient Product Inspection Coordinator Expl anation POLST 10/15/2019 3:17 PM POLST POLST 03/05/2019 POLST FORM Advance Directives and Living Will 01/27/2013 LIVING WILL Advance Directives and Living Will 01/27/2013 LIVING WILL Power of Workcell Operator 01/27/2013 POWER OF A TTORNEY Power of Workcell Operator 01/27/2013 POWER OF A TTORNEY Healthcare Agents on File Name Relationship Healthcare Agent Relationship Communication Cydney Benito Other - (no specific identity) Second Alternate Health Care Agent Anyi More Adult Child Health Care Roberth r of Workcell Operator Care Teams Guidance Consultant Relationship Specialty Start Date End Date Rhys Humphrey MD [address] [place] [address] [place] [address] PCP - General Family Medicine 06/09/21 documented as of this encounter
--- OUTSIDE RECORDS SUMMARY | 2023-10-29 06:20 | External Medical Summary ---
Author Name Unknown Address Unknown Organization [id number]:[facility] [place] [address] Laboratory Report Ordering Provider Test Date Status TIERA GARCIA 10/02/2023 09:00:39 Final Observation Date Value Abnormality Reference (Units ) Status SYNC LEUKOCYTES IN BLOOD BY AUTOMATED COUNT 10/02/2023 09:00:39 5.37 4.00-10.80 (K/uL) Final Segs 10/02/2023 09:00:39 52.6 40.0-75.0 (%) Final Lymphs % 10/02/2023 09:00:39 21.0 18.0-42.0 (%) Final Monos 10/02/2023 09:00:39 12.8 Above high normal 1.0-11.0 (%) Final Eosinophils 10/02/2023 09:00:39 12.5 Above high normal 0.0-6.0 (%) Final Basos 10/02/2023 09:00:39 1.1 0.0-2.0 (%) Final Absolute Segs 10/02/2023 09:00:39 2.82 1.80-7.70 (K/uL) Final Lymphs, absolute 10/02/2023 09:00:39 1.13 1.00-4.80 (K/ul) Final Monos, Abs 10/02/2023 09:00:39 0.69 0.00-1.10 (K/uL) Final Eos, Abs 10/02/2023 09:00:39 0.67 0.00-0.70 (K/uL) Final Basos, Abs 10/02/2023 09:00:39 0.06 0.00-0.20 (K/uL) Final Performing Location [facility] [place] [address]
--- OUTSIDE RECORDS SUMMARY | 2023-10-29 06:20 | External Medical Summary ---
Author Name Unknown Address Unknown Organization [id number]:[facility] [place] [address] Laboratory Report Ordering Provider Test Date Status TIERA GARCIA 10/02/2023 09:00:39 Final Observation Date Value Abnormality Reference (Units ) Status WBC, Total 10/02/2023 09:00:39 5.37 4.00-10.8 0 (K/uL) Final RBC 10/02/2023 09:00:39 3.71 3.85-5.15 (M/uL) Final Hemoglobin 10/02/2023 09:00:39 9.2 Below low normal 12 .0-15.3 (g/dL) Final HCT 10/02/2023 09:00:39 32.0 Below low normal 36. 0-45.2 (%) Final MCV 10/02/2023 09:00:39 86.3 81.5-97.5 (fL) Final MCH 10/02/2023 09:00:39 24.8 27.0-34.0 (pg) Final MCHC 10/02/2023 09:00:39 28.8 32.0-36.0 (g/dL) Final RDW 10/02/2023 09:00:39 14.8 11.5-15.5 (%) Final Platelets 10/02/2023 09:00:39 387 140-400 (K /uL) Final MPV 10/02/2023 09:00:39 8.8 6.6-11.1 ( fL) Final Performing Location [place] [address]
--- OUTSIDE RECORDS SUMMARY | 2023-10-29 06:20 | External Medical Summary | Summary of Care ---
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 50 Cap 0 01/18/2021 Active Hyoimyp-Rmbirjhnq-Ng nc 333-133-5 MG Oral Tablet Take 1 [...] classification ([facility]) Inhale 1 Puff by mouth in the morning. In addition to anoro. 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),COPD, group D, by GOLD 2017 classification ([facility]) Inhale 1 Puff by mouth [...] mRNA, LNP-s, No Pre serve, 2-Dose Series (MobiTX) 07/11/2021,11/14/2020,10/24/2020 Covid-19, Mrna, Lnp-s, Pf, B ivalent, 30 Mcg, IM, 12 yrs and above (Pfizer) 07/21/2022 Pneumococcal Conjugate Vacc, 13 Valent (Prevnar) 03/16/2015 Pneumococcal Conjugate Vacci ne, 20-valent ([id number]) 07/21/2022 Pneumococcal Polysaccharide PPV23 (Pneumovax) 03/05/2019,07/18/2007 Season [...] Care Team (Late st Contact Info) Description 10/02/2023 9:45 AM EST Hem/Onc Treatment Hematology[address] [address] Apple, Chair 1 Hem [facility] [address] [place] [address] [place] [address] Arrived 10/03/2023 1:15 PM EST Hem/Onc Treatment Hematology/Oncology Treatment, [place] [facility] [address] Apple, Chair 1 Hem [facility] 200 [facility] [place] [address] 10/04/2023 1:15 PM EST Hem/Onc Treatment Hematology/Oncology Treatment, [place] [address] [place], [place] [address] Park, Chair 7 Hem Onc Scenery [address] [place] [address] 10/16/2023 11:30 AM EST Office Visit Gastroenterology, [facility] [address] [place] [address] Lizzette Silva CRNP [address] [place] [address] 10/16/2023 3:00 PM EST Nutrition Services [facility], [facility] [address] [place] [address] Lovely Bravo, RDN [address] [facility] [place] [address] 10/22/2023 4:00 PM EST Home Visit [facility], [facility] [address] [place] [address] Sarah Vitale RN [address] [place] [address] 12/10/2023 9:20 AM EDT Office Visit Family [address] [place] [phone] Rhys Humphrey MD [address] [place] [address] [place] [address] 12/26/2023 7:30 AM EDT Office Visit Sleep Disorders Ctr [facility] [address] [place] [phone] Sosa Freeman CRNP [address] [place] [address] 12/27/2023 11:00 AM EDT Office Visit Cardiology [address] [place] [address] Mi Neil PA-C [address] [place] [address] 03/18/2024 9:00 AM EDT Nurse Only Ancillary [address] [place] [address] [place], Nurse Annual [address] [place] [address] Pending Results Name Type Priority Associated Diagnoses Date /Time COMPREHENSIVE METABOLIC PANEL Lab STAT 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) 10/02/2023 9:00 AM EST TSH WITH FREE T4 IF INDICATED Lab STAT 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) 10/02/2023 9:00 AM EST Scheduled Procedures Name Priority Associated Diagnoses Date/Ti [...] D LEVEL ONCE IN A LIFETIME-USE SMARTSET# 10156 Completed 06/29/2020, 03/16/2015 Pneumococcal Vaccine: 65+ Years [...] Procedure Name Priority Date/Time Associated Diagnosis Comments DIFFERENTIAL, AUTOMATED STAT 10/02/2023 9:00 AM EST 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) CBC STAT 10/02/2023 9:00 AM EST 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) CBC STAT 10/02/2023 9:00 AM EST 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 in this encounter Results * (ABNORMAL) DIFFERENTIAL, AUTOMATED (10/02/2023 9:00 AM EST) WBC 5.37 4.00 - 10.80 K/uL 10/02/2023 9:11 AM EST [facility] 56-02 Neutrophils % 52.6 40.0 - 75.0 % 10/02/2023 9:11 AM EST [facility] 56-02 Lymphocytes % 21.0 18.0 - 42.0 % 10/02/2023 9:11 AM EST [facility] 56-02 Monocytes % 12.8(H) 1.0 - 11.0 % 10/02/2023 9:11 AM EST [facility] 56-02 Eosinophils % 12.5(H) 0.0 - 6.0 % 10/02/2023 9:11 AM EST [facility] 56-02 Basophils % 1.1 0.0 - 2.0 % 10/02/2023 9:11 AM [facility] 56 Absolute Neutrophils 2.82 1.80 - 7.70 K/uL 10/02/2023 9:11 AM [facility] 56- Absolute Lymphocytes 1.13 1.00 - 4.80 K/ul 10/02/2023 9:11 AM [facility] 56 Absolute Monocytes 0.69 0.00 - 1.10 K/uL 10/02/2023 9:11 AM [facility] 56- Absolute Eosinophils 0.67 0.00 - 0.70 K/uL 10/02/2023 9:11 AM [facility] 56 Absolute Basophils 0.06 0.00 - 0.20 K/uL 10/02/2023 9:11 AM [facility] 56 Blood Venous blood specimen / Unknown Venipuncture / Unknown 10/02/2023 9:00 AM EST 10/02/2023 9:00 AM EST Martínez Lopes MD LAB BLOOD ORDERABLES Performing Organization Address City/State/[facility] Co de Phone Number [facility] [address] [place] [address] * (ABNORMAL) CBC (10/02/2023 9:00 AM EST) WBC 5.37 4.00 - 10.80 K/uL 10/02/2023 9:11 AM [facility] RBC 3.71 3.85 - 5.15 M/uL 10/02/2023 9:11 AM [facility] HGB 9.2(L) 12.0 - 15.3 g/dL 10/02/2023 9:11 AM [facility] HCT 32.0(L) 36.0 - 45.2 % 10/02/2023 9:11 AM [facility] MCV 86.3 81.5 - 97.5 fL 10/02/2023 9:11 AM [facility] 56 MCH 24.8 27.0 - 34.0 pg 10/02/2023 9:11 AM [facility] MCHC 28.8 32.0 - 36.0 g/dL 10/02/2023 9:11 AM EST [facility] 56- RDW 14.8 11.5 - 15.5 % 10/02/2023 9:11 AM EST [facility] 56-02 PLT 387 140 - 400 K/uL 10/02/2023 9:11 AM EST [facility] 56- MPV 8.8 6.6 - 11.1 fL 10/02/2023 9:11 AM EST [facility] 56- Blood Venous blood specimen / Unknown Venipuncture / Unknown 10/02/2023 9:00 AM EST 10/02/2023 9:00 AM EST Martínez Lopes MD LAB BLOOD ORDERABLES [facility] 56- [address] [place] [address] documented in this encounter Visit Diagnoses Diagnosis 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 in this encounter Advance Directives Documents on File Type Date Recorded Patient Auricular Acupuncturist Expl anation POLST 10/15/2019 3:17 PM POLST POLST 03/05/2019 POLST FORM Advance Directives and Living Will 01/27/2013 LIVING WILL Advance Directives and Living Will 01/27/2013 LIVING WILL Power of Unemployment Benefits Claims Taker 01/27/2013 POWER OF A TTORNEY Power of Unemployment Benefits Claims Taker 01/27/2013 POWER OF A TTORNEY Healthcare Agents on File Name Relationship Healthcare Agent Relationship Communication Cydney Benito Other - (no specific identity) Second Alternate Health Care Agent Anyi More Adult Child Health Care Roberth r of Unemployment Benefits Claims Taker Care Teams Surgical Instrument Technician Relationship Specialty Start Date End Date Rhys Humphrey MD [address] [place] [address] [place] [id number] PCP - General Family Medicine 06/09/21 documented as of this encounter
--- OUTSIDE RECORDS SUMMARY | 2023-10-29 06:21 | External Medical Summary | Summary of Care ---
Author Name Unknown Organization [facility] Address [address] [place] [address] Phone [phone] Care Team Providers Care Cotton Classer Aide Name Role Phone Rhys Humphrey MD Primary Care Provide r Encounter Details Date Type Department Care Team (Late st Contact Info) Description 09/25/2023 Orders Only Hematology/Oncology, [facility] [address] [place] [address] Yg Holliday MD [address] [place] [address] Allergies Active Allergy Reactions Criticality Noted Date Comments Adhesive Tape Other (Please comment),Hives High 09/29/2008 Caused welts Dextromethorphan-Gu aifenesin Neuro complications (Please comment) Medium 12/23/2021 Feels lightheaded/"foggy" documented as of this encounter (statuses as of 09/25/2023) Medications Medication Sig Dispensed Refills Start Date [...] before bedtime. 50 Cap 0 01/18/2021 Active Eusbynf-Xkxniogss-Wp nc 333-133-5 MG Oral Tablet Take 1 [...] 2017 classification ([facility]) Inhale 1 Puff by mouth in the morning. In addition to anoro. 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 30 Each 08/20/2023 Active Ondansetron HCl 8 MG Oral TabletIndications:Sm all cell neuroendocrine carcinoma of lung (HCC),Metastasis to mediastinal lymph node (HCC) Take 1 Tablet by mouth every 8 hours as needed for Nausea. 30 Tablet 3 09/14/2023 Active Prochlorperazine Maleate 10 MG Oral Tablet [...] at bedtime. 30 Tablet 5 09/20/2023 Active documented as of this encounter (statuses as of 09/25/2023) Active Problems Problem Noted Date Diagnosed Date [...] Medication Regimen o Other: shay, ana luisa, chandler moeller Self-Management plan o Prednisone 40mg [...] as of this encounter (statuses as of 09/25/2023) Resolved Problems Problem Noted Date Diagnosed Date [...] as of this encounter (statuses as of 09/25/2023) Immunizations Name Administration Dates Next Due COVID-19 mRNA, LNP-s, No Pre serve, 2-Dose Series (Revivio) 07/11/2021,11/14/2020,10/24/2020 Covid-19, Mrna, Lnp-s, Pf, B ivalent, 30 Mcg, IM, 12 yrs and above (Pfizer) 07/21/2022 Pneumococcal Conjugate Vacc, 13 Valent (Prevnar) 03/16/2015 Pneumococcal Conjugate Vacci ne, 20-valent ([id number]) 07/21/2022 Pneumococcal Polysaccharide PPV23 (Pneumovax) 03/05/2019,07/18/2007 Season [...] Care Team (Late st Contact Info) Description 09/27/2023 11:15 AM EST Nutrition Services [facility], [facility] [address] [facility] [place] [address] Lovely Bravo RDN [address] [place] [address] 09/28/2023 2:30 PM EST Home Visit [facility], [facility] 132 [facility] [place] [address] Sarah Vitale, RAYNA 132 [facility] [place] [address] 10/02/2023 8:40 AM EST Laboratory Laboratory [facility] [place] [address] [place] [phone] Apple, Lab Scenery [address] [place], [place] [address] 10/02/2023 9:45 AM EST Hem/Onc Treatment Hematology/Oncology Treatment, [place] 200 [facility], [place] [address] Apple, Chair 1 Hem Onc Scenery [address] [place], [place] [address] 10/03/2023 10:30 AM EST Office Visit Sleep Disorders Ctr [facility] [address] [place] [phone] Sosa Freeman CRNP [address] [place] [address] 10/03/2023 1:15 PM EST Hem/Onc Treatment Hematology/Oncology Treatment, [address], [place] [address] Apple, Chair 1 Hem Onc Scenery 200 [facility] [place], [place] [address] 10/04/2023 1:15 PM EST Hem/Onc Treatment Hematology/Oncology Treatment, [address], [place] [address] Apple, Chair 7 Hem Onc Scenery 200 [facility] [place], [place] [address] 10/16/2023 11:30 AM EST Office Visit Gastroenterology, [facility] [address] [place] [address] Lizzette Silva CRNP [address] [place] [address] 12/10/2023 9:20 AM EDT Office Visit Family [address] [place] [phone] Rhys Humphrey MD [address] [place] [address] [place] [address] 12/27/2023 11:00 AM EDT Office Visit Cardiology [address] [place] [address] Mi Neil, CECI [address] [place] [address] 03/18/2024 9:00 AM EDT Nurse Only Ancillary [address] [place] [address] [place], Nurse Annual Wellness [address] [place] [address] [place] [address] Scheduled Procedures Name Priority Associated Diagnoses Date/Ti [...] D LEVEL ONCE IN A LIFETIME-USE SMARTSET# 34725 Completed 06/29/2020, 03/16/2015 Pneumococcal Vaccine: 65+ Years [...] Documents on File Type Date Recorded Patient Cannon Pinion Adjuster Expl anation POLST 10/15/2019 3:17 PM POLST POLST 03/05/2019 POLST FORM Advance Directives and Living Will 01/27/2013 LIVING WILL Advance Directives and Living Will 01/27/2013 LIVING WILL Power of Financial Reporting Accountant 01/27/2013 POWER OF A TTORNEY Power of Financial Reporting Accountant 01/27/2013 POWER OF A TTORNEY Healthcare Agents on File Name Relationship Healthcare Agent Relationship Communication Cydney Benito Other - (no specific identity) Second Alternate Health Care Agent Anyi More Adult Child Health Care Roberth r of Financial Reporting Accountant Care Teams Cotton Classer Aide Relationship Specialty Start Date End Date Rhys Humphrey MD [address] [place] [address] [place] [address] PCP - General Family Medicine 06/09/21 documented as of this encounter
--- OUTSIDE RECORDS SUMMARY | 2023-10-29 06:21 | External Medical Summary | Summary of Care ---
Author Name Unknown Organization [facility] Address [address] [place] [address] Phone [phone] Care Team Providers Care Department Of Natural Resources Officer Name Role Phone Rhys Humphrey MD Primary Care Provide r Reason for Visit * Reason Comments Medical Nutrition Therapy Encounter Details Date Type Department Care Team (Latest Contact Info) Description 09/27/2023 11:15 AM EST Nutrition Services [facility], [facility] [address] [facility] [address] Lovely Bravo, RDN [address] [facility] [address] 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 50 Cap 0 01/18/2021 Active Uvijgpj-Lcqfmdckm-Ot nc 333-133-5 MG Oral Tablet Take 1 [...] ([facility]) Inhale 1 Puff by mouth in the morning. In addition to anoro. 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),COPD, group D, by GOLD 2017 classification ([facility]) Inhale 1 Puff by mouth in the [...] as of this encounter (statuses as of 09/27/2023) Active Problems Problem Noted Date Diagnosed Date [...] as of this encounter (statuses as of 09/27/2023) Resolved Problems Problem Noted Date Diagnosed Date [...] as of this encounter (statuses as of 09/27/2023) Immunizations Name Administration Dates Next Due COVID-19 mRNA, LNP-s, No Pre serve, 2-Dose Series (XMarket) 07/11/2021,11/14/2020,10/24/2020 Covid-19, Mrna, Lnp-s, Pf, B ivalent, 30 Mcg, IM, 12 yrs and above (Pfizer) 07/21/2022 Pneumococcal Conjugate Vacc, 13 Valent (Prevnar) 03/16/2015 Pneumococcal Conjugate Vacci ne, 20-valent ([id number]) 07/21/2022 Pneumococcal Polysaccharide PPV23 (Pneumovax) 03/05/2019,07/18/2007 Season [...] as of this encounter Progress Notes * Lovely Bravo RDN - 09/27/2023 1:52 PM EST Images from the original note were not included. NUTRITION PROGRESS NOTE - [facility] [facility] Patient Phone Numbers: [phone] Home Call placed to pt as follow-up from initial nutrition assessment. 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 Mailed high calorie, high protein nutrition therapy and recipes, tips on adding calories and protein. Daughter to bring patient's mail today Per [facility] slight decline in weight over the past month < 1 %. Encouraged nutrition goals below. Wt Readings from Last 3 Encounters: 09/14/23 68.9 kg (151 lb 14.4 oz) 08/21/23 67.9 kg (149 lb 12.8 oz) 08/18/23 67.3 kg (148 lb 6.4 oz) Per [facility] 09/03/2023 assessment weight 147.4 lbs Latest Reference Range & Units 09/17/23 14:30 Sodium 135 - 146 mmol/L 137 Potassium 3.5 - 5.1 mmol/L 3.8 Chloride 98 - 107 mmol/L 97 (L) CO2 22 - 32 mmol/L 29 BUN 6 - 20 mg/dL 14 Creatinine 0.5 - 1.0 mg/dL 0.9 Estimated Glomerular Filtration Rate >=60 mL/min 68 Anion Gap 7 - 15 mmol/L 11 Glucose 70 - 120 mg/dL 110 Calcium 8.4 - 10.2 mg/dL 9.1 Protein 6.0 - 8.3 g/dL 6.4 (L): Data is abnormally low Previous Nutrition Goals: On going Increase oral nutrition supplement to daily (4oz AM/ 4 oz PM) Drinking "plus option" Drinking 1 -2 per day. Reviewed high calorie/ high protein nutrition therapy. Encouraged to share with neighbor and familywho dose grocery shopping with patient and cooks nightly for her. Reinforced nutrition goals. Encouraged continued progress towards goals Follow up as scheduled. Encouraged pt to contact [facility] at [phone] for any non-emergent changes/concerns. BULL Evans, [place]IBAL, LDN Clinical Dietitian [facility] documented in this encounter Plan of Treatment Upcoming Encounters Date Type Department Care Team (Late st Contact Info) Description 09/28/2023 2:30 PM EST Home Visit [facility], [facility] [address] [place] [address] Sarah Vitale, RAYNA [address] [place] [address] 10/02/2023 8:40 AM EST Laboratory Laboratory Scenery [facility] [address] [place], [place] [address] Apple, Lab Scenery [address] [place], [place] [address] 10/02/2023 9:45 AM EST Hem/Onc Treatment Hematology/Oncology Treatment, [place] 200 [facility], [place] [address] Apple, Chair 1 Hem Onc Scenery [address] [place] [address] 10/03/2023 1:15 PM EST Hem/Onc Treatment Hematology/Oncology Treatment, [place] 200 [facility], [place] [address] Apple, Chair 1 Hem Onc Scenery [address] [place] [address] 10/04/2023 1:15 PM EST Hem/Onc Treatment Hematology/Oncology Treatment, [place] 200 [facility], [place] [address] Apple, Chair 7 Hem Onc Scenery 200 [facility] [place] [address] 10/16/2023 11:30 AM EST Office Visit Gastroenterology, [facility] [place] [address] Lizzette Silva CRNP 132 [facility] [address] 10/16/2023 3:00 PM EST Nutrition Services [facility], [facility] [address] [facility] [place] [address] Lovely Bravo, ANIBAL [address] [facility] [place] [address] 12/10/2023 9:20 AM EDT Office Visit [address] [phone] Rhys Humphrey MD [address] [place] [address] [place] [address] 12/26/2023 7:30 AM EDT Office Visit Sleep Disorders Ctr [facility] [address] [place] [phone] Sosa Freeman CRNP [address] [place] [address] 12/27/2023 11:00 AM EDT Office Visit Cardiology [address] [place] [address] Mi Neil, CECI [address] [place] [address] 03/18/2024 9:00 AM EDT Nurse Only Ancillary [address] [place] [address] [place], Nurse Annual [address] [place] [address] Scheduled Procedures Name Priority Associated Diagnoses Date/Ti [...] D LEVEL ONCE IN A LIFETIME-USE SMARTSET# 42926 Completed 06/29/2020, 03/16/2015 Pneumococcal Vaccine: 65+ Years [...] on File Type Date Recorded Patient Stone Polisher Hand Expl anation POLST 10/15/2019 3:17 PM POLST POLST 03/05/2019 POLST FORM Advance Directives and Living Will 01/27/2013 LIVING WILL Advance Directives and Living Will 01/27/2013 LIVING WILL Power of Language Path 01/27/2013 POWER OF A TTORNEY Power of Language Path 01/27/2013 POWER OF A TTORNEY Healthcare Agents on File Name Relationship Healthcare Agent Relationship Communication Cydney Benito Other - (no specific identity) Second Alternate Health Care Agent Anyi More Adult Child Health Care Roberth r of Language Path Care Teams Department Of Natural Resources Officer Relationship Specialty Start Date End Date Rhys Humphrey MD [address] [place] [address] [place] [address] PCP - General Family Medicine 06/09/21 documented as of this encounter
--- OUTSIDE RECORDS SUMMARY | 2023-10-29 06:21 | External Medical Summary | Summary of Care ---
Author Name Unknown Organization [facility] Address [address] [place] [address] Phone [phone] Care Team Providers Care Dimension Specification Inspector Name Role Phone Rhys Humphrey MD Primary Care Provide r Reason for Visit * Reason Comments [facility]: Maintenance Encounter Details Date Type Department Care Team (Late st Contact Info) Description 09/21/2023 2:30 PM EST [facility] Visit [facility], [facility] 132 [facility] [place] [address] Sarah Vitale, RN [address] [place] [address] Allergies Active Allergy Reactions Criticality Noted Date Comments Adhesive Tape Other (Please comment),Hives High 09/29/2008 Caused welts Dextromethorphan-Gu aifenesin Neuro complications (Please comment) Medium 12/23/2021 Feels lightheaded/"foggy" documented as of this encounter (statuses as of 09/26/2023) Medications Medication Sig Dispensed Refills Start Date [...] before bedtime. 50 Cap 0 01/18/2021 Active Tsazdnr-Twdvdmgtl-Ri nc 333-133-5 MG Oral Tablet Take 1 [...] ([facility]) Inhale 1 Puff by mouth in the morning. In addition to anoro. 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),COPD, group D, by GOLD 2017 classification ([facility]) Inhale 1 Puff by mouth in the [...] as of this encounter (statuses as of 09/26/2023) Active Problems Problem Noted Date Diagnosed Date [...] as of this encounter (statuses as of 09/26/2023) Resolved Problems Problem Noted Date Diagnosed Date [...] as of this encounter (statuses as of 09/26/2023) Immunizations Name Administration Dates Next Due COVID-19 mRNA, LNP-s, No Pre serve, 2-Dose Series ([employer]) 07/11/2021,11/14/2020,10/24/2020 Covid-19, Mrna, Lnp-s, Pf, B ivalent, 30 Mcg, IM, 12 yrs and above (Pfizer) 07/21/2022 Pneumococcal Conjugate Vacc, 13 Valent (Prevnar) 03/16/2015 Pneumococcal Conjugate Vacci ne, 20-valent ([id number]) 07/21/2022 Pneumococcal Polysaccharide PPV23 (Pneumovax) 03/05/2019,07/18/2007 Season [...] Sign Reading Time Taken Comments Blood Pressure 102/56 09/21/2023 2:27 PM EST Pulse 76 09/21/2023 2:27 PM EST Temperature 35.8 C (96.5 F) 09/21/2023 2:27 PM ES T Respiratory Rate 18 09/21/2023 2:27 PM EST Oxygen Saturation 91% 09/21/2023 2:27 PM EST Inhaled Oxygen Concentration - - Weight - - Height - - Body Mass Index - - documented in this encounter Progress Notes * Sarah Vitale RN - 09/21/2023 2:16 PM EST [facility] Railroad Signal Operator Visit Date: 09/21/2023 Time: 2:16 PM Name: Keisha Linares : 1940 Current Concerns: Patient seen for follow up- 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 Having difficulty sleeping- PCP prescribed Trazodone- to begin this evening. Overall reports feeling ok. Choosing not to go to building holiday alliance party. States she just doesn't want to . VS wnl Lungs clear slightly diminished Sob with exertion Oxygen at 2L via n/c No LE edema noted Appetite good Taking fluids well Denies discomfort Problems/Symptoms: Review of Systems Constitutional: Negative. HENT: Negative. Eyes: Negative. Respiratory: Positive for shortness of breath. Cardiovascular: Negative. Gastrointestinal: Negative. Endocrine: Negative. Genitourinary: Negative. Musculoskeletal: Positive for gait problem. Allergic/Immunologic: Negative. Hematological: Negative. Psychiatric/Behavioral: Negative. Physical Exam: BP 102/56 (BP Site: Right Arm, BP Position: Sitting, BP Cuff Size: Regular) | Pulse 76 | Temp 35.8 C (96.5 F) (Tympanic) | Resp 18 | SpO2 [...] and Affect: Mood normal. Behavior: Behavior normal. [facility]-10 Completed this Visit: No. Routine visit Treatment/Plan: Continue medications as prescribed Keep all upcoming MD appointments Fall precautions Oxygen at 2L via n/c AMC scale/BP cuff daily RN CM follow up in 2 weeks Home Interventions Provided: Reinforced current Plan of Care, including self-management and medication regimen Patient Needs to Remember: Call [facility] with any medical concerns/ red flags Referrals Needed: N/a Follow Up: Is there cellular connectivity/connectivity in the home? Yes Does the patient have internet in the home? No Patient encouraged to call the intake phone number for all urgent but not emergent issues. Scheduled to follow up with patient in 2 weeks. Sarah Bhandari RN 09/21/2023 2:16 PM documented in this encounter Plan of Treatment Upcoming Encounters Date Type Department Care Team (Late st Contact Info) Description 09/27/2023 11:15 AM EST Nutrition Services [facility], [facility] [address] [facility] [place] [address] Lovely Bravo RDN [address] [facility] [place] [address] 09/28/2023 2:30 PM EST Home Visit [facility], [facility] [place] [address] Sarah Vitale, RAYNA [facility] [place] [address] 10/02/2023 8:40 AM EST Laboratory Laboratory [facility] [place] [phone] Apple, Lab Scenery [facility] [place], [place] [address] 10/02/2023 9:45 AM EST Hem/Onc Treatment Hematology/Oncology Treatment, [address] [place] [address] Apple, Chair 1 Hem Onc Scenery [address] [place] [address] 10/03/2023 1:15 PM EST Hem/Onc Treatment Hematology/Oncology Treatment, [place] 200 [place] [address] Apple, Chair 1 Hem Onc Scenery [address] [place] [address] 10/04/2023 1:15 PM EST Hem/Onc Treatment Hematology/Oncology Treatment, [place] [address] [facility] [address] Apple, Chair 7 Hem Onc Scenery [address] [facility] [place] [address] 10/16/2023 11:30 AM EST Office Visit Gastroenterology, [facility] 132 [place] [address] Lizzette Silva CRNP [address] [place] [address] 12/10/2023 9:20 AM EDT Office Visit Family Medicine [address] [place] [phone] Rhys Humphrey MD [address] [place] [address] [place] [address] 12/26/2023 7:30 AM EDT Office Visit Sleep Disorders Ctr [facility] 132 [place] [phone] Sosa Freeman CRNP 132 [place] [address] 12/27/2023 11:00 AM EDT Office Visit Cardiology [address] [place] [address] Mi Neil PA-C [address] [place] [address] 03/18/2024 9:00 AM EDT Nurse Only Ancillary [address] [place] [address] [place], Nurse Annual [address] [place] [address] Scheduled Procedures Name Priority Associated Diagnoses Date/Ti [...] D LEVEL ONCE IN A LIFETIME-USE SMARTSET# 17182 Completed 06/29/2020, 03/16/2015 Pneumococcal Vaccine: 65+ Years [...] Documents on File Type Date Recorded Patient Punchboard Stuffer Expl anation POLST 10/15/2019 3:17 PM POLST POLST 03/05/2019 POLST FORM Advance Directives and Living Will 01/27/2013 LIVING WILL Advance Directives and Living Will 01/27/2013 LIVING WILL Power of Cp Bleacher Operator 01/27/2013 POWER OF A TTORNEY Power of Cp Bleacher Operator 01/27/2013 POWER OF A TTORNEY Healthcare Agents on File Name Relationship Healthcare Agent Relationship Communication Cydney Benito Other - (no specific identity) Second Alternate Health Care Agent Anyi More Adult Child Health Care Roberth r of Cp Bleacher Operator Care Teams Dimension Specification Inspector Relationship Specialty Start Date End Date Rhys Humphrey MD [address] [place] [address] [place] [address] PCP - General Family Medicine 06/09/21 documented as of this encounter
--- OUTSIDE RECORDS SUMMARY | 2023-10-29 06:21 | External Medical Summary | Summary of Care ---
Author Name Unknown Organization [facility] Address [address] [place] [address] Phone [phone] Care Team Providers Care Educational Advisor Name Role Phone Rhys Hmuphrey MD Primary Care Provide r Reason for Visit * Reason Onset Date Comments Precert Future 09/18/2023 Tecentriq, carbo , etoposide, udenyca Encounter Details Date Type Department Care Team (Late st Contact Info) Description 09/18/2023 Telephone Hematology/Oncology Treatment, [place] [address] [place] [address] Martínez Lopes MD [address] [place] [address] Precert Future (Tecentriq, carbo, etoposid... Allergies Active Allergy Reactions Criticality Noted Date [...] before bedtime. 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 0 Active documented as of this encounter [...] mRNA, LNP-s, No Pre serve, 2-Dose Series ([employer]) 07/11/2021,11/14/2020,10/24/2020 Covid-19, Mrna, Lnp-s, Pf, B ivalent, 30 Mcg, IM, 12 yrs and above ([employer]) 07/21/2022 Pneumococcal Conjugate Vacc, 13 Valent (Prevnar) 03/16/2015 Pneumococcal Conjugate Vacci ne, 20-valent ([id number]) 07/21/2022 Pneumococcal Polysaccharide PPV23 (Pneumovax) 03/05/2019,07/18/2007 Season [...] Telephone Encounter - Amy Crawford OSA - 09/25/2023 8:50 AM EST Called and spoke to patient and she is aware of appt dates and times. * Telephone Encounter - Agatha Lowe RN - 09/25/2023 7:37 AM EST Scheduling: please call patient to schedule 4 day treatment Day 1: - labs "CBCd, CMP, TSH/T4" - 4 hour appt "C1D1 tecentriq, carbo, etoposide/ day 4 udenyca" (Lopes) Day 2: - 2 hour appt "C1D2 etoposide" Day 3: - 2 hour appt "C1D3 etoposide" Day 4 udenyca injection appt can wait to be scheduled as time will depend on time of day 3 etoposide appt. Thanks! * Telephone Encounter - Agatha Lowe RN - 09/21/2023 2:20 PM EST Referral entered. Kim: please advise if/ when tecentriq is available. Thanks! * Telephone Encounter - Agatha Lowe RN - 09/18/2023 1:36 PM EST Order received for tecentriq, carboplatin, etoposide, udenyca. Crenshaw plan built and routed for signature. Waiting for auth. Consent signed 09/14/23. Nurse education 09/17/23. Patient had hep B labs 09/17/23. *When auth is back, will need to send to Kim to ensure tecentriq is available before scheduling* documented in this encounter Plan of Treatment Upcoming Encounters Date Type Department Care Team (Late st Contact Info) Description 09/27/2023 11:15 AM EST Nutrition Services [facility], [facility] [address] [facility] [place] [address] Lovely Bravo RDN [address] [facility] [place] [address] 09/28/2023 2:30 PM EST Home Visit [facility], [facility] 132 [facility] [place] [address] Sarah Vitale, RN 132 [facility] [place] [address] 10/02/2023 8:40 AM EST Laboratory Laboratory Scenery [place] [address] [place], [place] [phone] Apple, Lab Scenery [address] [place], [place] [address] 10/02/2023 9:45 AM EST Hem/Onc Treatment Hematology/Oncology Treatment, [address], [place] [address] Apple, Chair 1 Hem Onc Scenery [address] [place], [place] [address] 10/03/2023 10:30 AM EST Office Visit Sleep Disorders Ctr [facility] [address] [place] [phone] Sosa Freeman CRNP 132 [facility] [place] [address] 10/03/2023 1:15 PM EST Hem/Onc Treatment Hematology/Oncology Treatment, [address], [place] [address] Apple, Chair 1 Hem Onc Scenery 200 [facility] [place], [place] [address] 10/04/2023 1:15 PM EST Hem/Onc Treatment Hematology/Oncology Treatment, [address], [place] [address] Apple, Chair 7 Hem Onc Scenery [address] [place], [place] [address] 10/16/2023 11:30 AM EST Office Visit Gastroenterology, [facility] [address] [place] [address] Lizzette Silva CRNP [address] [place] [address] 12/10/2023 9:20 AM EDT Office Visit Family [address] [place] [phone] Rhys Humphrey MD [address] [place] [address] [place] [address] 12/27/2023 11:00 AM EDT Office Visit Cardiology [address] [place] [address] Mi Neil, CECI [address] [place] [address] 03/18/2024 9:00 AM EDT Nurse Only Ancillary [address] [place] [address] [place], Nurse Annual [address] [place] [address] Scheduled Procedures Name Priority Associated Diagnoses Date/Ti [...] FOR COPD 08/10/2024 08/10/2023 GFR 09/17/2024 09/17/2023, 12/01/2023, 07/03/2023, Additional history exists Albumin/Creatinine Ratio 04/28/2025 04/28/2022 DTaP,Tdap,and Td Vaccines (3 - Td or Tdap) 09/17/2029 09/17/2019, 08/10/2011, 10/01/2001 Zoster Vaccines Completed 04/25/2020, 08/31, 07/22/2012 VITAMIN D LEVEL ONCE IN A LIFETIME-USE SMARTSET# [id number] Completed 06/29/2020, 03/16/2015 Pneumococcal Vaccine: 65+ Years [...] Documents on File Type Date Recorded Patient Armament Mechanic Expl anation POLST 10/15/2019 3:17 PM POLST POLST 03/05/2019 POLST FORM Advance Directives and Living Will 01/27/2013 LIVING WILL Advance Directives and Living Will 01/27/2013 LIVING WILL Power of Conche Loader And Unloader 01/27/2013 POWER OF A TTORNEY Power of Conche Loader And Unloader 01/27/2013 POWER OF A TTORNEY Healthcare Agents on File Name Relationship Healthcare Agent Relationship Communication Cydney Benito Other - (no specific identity) Second Alternate Health Care Agent Anyi More Adult Child Health Care Roberth r of Conche Loader And Unloader Care Teams Educational Advisor Relationship Specialty Start Date End Date Rhys Humphrey MD [address] [place] [address] [place] [address] PCP - General Family Medicine 06/09/21 documented as of this encounter
--- OUTSIDE RECORDS SUMMARY | 2023-10-29 06:21 | External Medical Summary | Summary of Care ---
Author Name Unknown Organization [facility] Address [address] [place] [address] Phone [phone] Care Team Providers Care Co Founder And Cto Name Role Phone Rhys Humphrey MD Primary Care Provide r Reason for Visit * Reason Onset Date Comments [facility]: Maintenance 09/27/2023 Encounter Details Date Type Department Care Team (Late st Contact Info) Description 09/27/2023 Telephone [facility] [address] [place] [address] [facility], Nurse [facility] [address] [place] [address] [facility]: Maintenance Allergies Active Allergy [...] before bedtime. 50 Cap 0 01/18/2021 Active Pslgvgg-Wqidjhygc-El nc 333-133-5 MG Oral Tablet Take 1 [...] classification ([facility]) Inhale 1 Puff by mouth in the morning. In addition to anoro. 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 30 Each 11 08/20/2023 Active Ondansetron HCl 8 MG Oral [...] mRNA, LNP-s, No Pre serve, 2-Dose Series ([employer]) 07/11/2021,11/14/2020,10/24/2020 Covid-19, Mrna, Lnp-s, Pf, B ivalent, 30 Mcg, IM, 12 yrs and above (Pfizer) 07/21/2022 Pneumococcal Conjugate Vacc, 13 Valent (Prevnar) 03/16/2015 Pneumococcal Conjugate Vacci ne, 20-valent ([id number]) 07/21/2022 Pneumococcal Polysaccharide PPV23 (Pneumovax) 03/05/2019,07/18/2007 Season [...] * Telephone Encounter - Angeles MehtaDUNCAN - 09/27/2023 11:59 AM EST Images from the original note were not included. [facility] Remote Patient Monitoring Able to contact patient: Trigger type: Abnormal reading(s): AMC (Advanced Monitored Caregiving): Pulse rate: Pulse: 102 Trigger priority per AMC: high Blood Pressure Cuff: Blood pressure per cuff: 92/52 Trigger priority per AMC: high Patient takes medication to control blood pressure: Yes, losartan. Last dose taken today. Symptom review: Denies new/worsening symptoms Diet Reviewed: N/A Fluid Intake Reviewed: N/A Self-Management Plan Reviewed: Red Flags: requiring oxygen more than just at night, coughing up green, yellow, thick mucous, swelling in legs/feets Risk assignment recommendation: Moderate risk findings (check [...] Spoke with pt denies any new/worsening symptoms. Will callGAH with any changes. Overall risk and identified plan: Moderate risk: Route to RNCM (Registered Nurse Cognos Report Developer) and Advance Practitioner documented in this encounter Plan of Treatment Upcoming Encounters Date Type Department Care Team (Late st Contact Info) Description 09/28/2023 2:30 PM EST Home Visit [facility] 132 [facility] [place] [address] Sarah Vitale RN [address] [place] [address] 10/02/2023 8:40 AM EST Laboratory Laboratory Scenery [place] [address] [place], [place] [phone] Apple, Lab Scenery [address] [place], [place] [address] 10/02/2023 9:45 AM EST Hem/Onc Treatment Hematology/Oncology Treatment, [place] 200 [facility], [place] [address] Apple, Chair 1 Hem Onc Scenery [address] [place], [place] [address] 10/03/2023 1:15 PM EST Hem/Onc Treatment Hematology/Oncology Treatment, [place] 200 [facility], [place] [address] Apple, Chair 1 Hem Onc Scenery [address] [place], [place] [address] 10/04/2023 1:15 PM EST Hem/Onc Treatment Hematology/Oncology Treatment, [address], [place] [address] Apple, Chair 7 Hem Onc Scenery [address] [place], [place] [address] 10/16/2023 11:30 AM EST Office Visit Gastroenterology, [facility] 132 [facility] [place] [address] Lizzette Silva CRNP 132 [facility] [place] [address] 12/10/2023 9:20 AM EDT Office Visit Family Medicine [address] [place] [phone] Rhys Humphrey MD [address] [place] [address] [place] [address] 12/26/2023 7:30 AM EDT Office Visit Sleep Disorders Ctr [facility] [address] [place] [phone] Sosa Freeman CRNP [address] [place] [address] 12/27/2023 11:00 AM EDT Office Visit Cardiology [address] [place] [address] Mi Neil PA-C [address] [place] [address] 03/18/2024 9:00 AM EDT Nurse Only Ancillary [address] [place] [address] [place], Nurse [address] [place] [address] Scheduled Procedures Name Priority Associated Diagnoses Date/Ti [...] D LEVEL ONCE IN A LIFETIME-USE SMARTSET# 95178 Completed 06/29/2020, 03/16/2015 Pneumococcal Vaccine: 65+ Years [...] Documents on File Type Date Recorded Patient Change Control Coordinator Expl anation POLST 10/15/2019 3:17 PM POLST POLST 03/05/2019 POLST FORM Advance Directives and Living Will 01/27/2013 LIVING WILL Advance Directives and Living Will 01/27/2013 LIVING WILL Power of Fine Patcher 01/27/2013 POWER OF A TTORNEY Power of Fine Patcher 01/27/2013 POWER OF A TTORNEY Healthcare Agents on File Name Relationship Healthcare Agent Relationship Communication Cydney Benito Other - (no specific identity) Second Alternate Health Care Agent Anyi More Adult Child Health Care Robreth r of Fine Patcher Care Teams Co Founder And Cto Relationship Specialty Start Date End Date Rhys Humphrey MD [address] [place] [address] [place] [address] PCP - General Family Medicine 06/09/21 documented as of this encounter
--- OUTSIDE RECORDS SUMMARY | 2023-10-29 06:22 | External Medical Summary ---
Author Name Unknown Address Unknown Organization K01:[facility] [address] [address] [facility]22 Laboratory Report Ordering Provider Test Date Status TIERA GARCIA 09/17/2023 14:30:42 Final Observation Date Value Abnormality Reference (Units) Status Hepatitis B virus surface Ab [Units/volume] in Serum or Plasma by Immunoassay 09/17/2023 14:30:42 <3.5 (mIU/mL) Final Hepatitis B virus surface Ab [Presence] in Serum by Immunoassay 09/17/2023 14:30:42 Negative Final HEPATITIS B SURFACE ANTIBODY, INTERPRETATION 09/17/2023 14:30:42 NOT immune to Hepatitis B Virus Final POSITIVE: >=11.5 mIU/mL
INDETERMINATE: 8.5-<11.5 mIU/mL
NEGATIVE: <8.5 mIU/mL Performing Location [facility] [address] [place] [address]
--- OUTSIDE RECORDS SUMMARY | 2023-10-29 06:22 | External Medical Summary | Summary of Care ---
Author Name Unknown Organization [facility] Address [address] [place] [address] Phone [phone] Care Team Providers Care Delivery Truck Driver Name Role Phone Rhys Humphrey MD Primary Care Provide r Reason for Visit * Reason Comments Outpatient Testing Encounter Details Date Type Department Care Team (Late st Contact Info) Description 09/17/2023 1:30 PM EST Nurse Only Hematology/Oncology [facility] [address] [place] [address] [place] Nurse Hem Onc [address] [place] [address] Outpatient Testing Allergies Active Allergy Reactions Criticality Noted Date Comments Adhesive Tape Other (Please comment),Hives High 09/29/2008 Caused welts Dextromethorphan-Gu aifenesin Neuro complications (Please comment) Medium 12/23/2021 Feels lightheaded/"foggy" documented as of this encounter (statuses as of 09/18/2023) Medications Medication Sig Dispensed Refills Start Date [...] before bedtime. 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 Acute respiratory failure with hypoxia Acute serous otitis media 01/01/2023 Nontoxic multinodular goiter 10/23/2022 RLS (restless legs syndrome) 07/07/2021 Peripheral polyneuropathy 07/07/2021 Iron deficiency anemia 06/14/2021 Last Assessment & Plan: Last hgb 11.8 12/27/22 -continue Fe supplement -repeat labs next month [...] as of this encounter (statuses as of 09/18/2023) Resolved Problems Problem Noted Date Diagnosed Date [...] as of this encounter (statuses as of 09/18/2023) Immunizations Name Administration Dates Next Due COVID-19 mRNA, LNP-s, No Pre serve, 2-Dose Series (WeYAP) 07/11/2021,11/14/2020,10/24/2020 Covid-19, Mrna, Lnp-s, Pf, B ivalent, 30 Mcg, IM, 12 yrs and above (Pfizer) 07/21/2022 Pneumococcal Conjugate Vacc, 13 Valent (Prevnar) 03/16/2015 Pneumococcal Conjugate Vacci ne, 20-valent ([id number]) 07/21/2022 Pneumococcal Polysaccharide PPV23 (Pneumovax) 03/05/2019,07/18/2007 Season [...] PM EST [facility] [address] [place] [address] Sarah Vitale, RN [address] [place] [address] 09/27/2023 11:15 AM EST Nutrition Services [facility], [facility] [address] [facility] [place] [address] Lovely Bravo, SHAKIRN [address] [facility] [place] [address] 09/28/2023 2:30 PM EST [facility], [facility] [address] [place] [address] Sarah Vitale, RN [address] [place] [address] 10/03/2023 10:30 AM EST Office Visit Sleep Disorders Ctr [facility] [address] [place] [phone] Sosa Freeman CRNP [address] [place] [address] 10/16/2023 11:30 AM EST Office Visit Gastroenterology, [facility] [address] [place] [address] Lizzette Silva CRNP [address] [place] [address] 12/10/2023 9:20 AM EDT Office Visit Family Medicine [address] [place] [phone] Rhys Humphrey MD [address] [place] [address] [place] [address] 12/27/2023 11:00 AM EDT Office Visit Cardiology [address] [place] [address] Mi Neil, CECI [address] [place] [address] 03/18/2024 9:00 AM EDT Nurse Only Ancillary [address] [place] [address] [place], Nurse Annual Wellness [address] [place] [address] [place] [address] Scheduled Procedures Name Priority Associated Diagnoses Date/Ti [...] FOR COPD 08/10/2024 08/10/2023 GFR 09/17/2024 09/17/2023, 12/0 01/2023, 07/03/2023, Additional history exists Albumin/Creatinine Ratio 04/28/2025 04/28/2022 DTaP,Tdap,and Td Vaccines (3 - Td or Tdap) 09/17/2029 09/17/2019, 08/10/2011, 10/01/2001 Zoster Vaccines Completed 04/25/2020, 08/31, 07/22/2012 VITAMIN D LEVEL ONCE IN A LIFETIME-USE SMARTSET# 10049 Completed 06/29/2020, 03/16/2015 Pneumococcal Vaccine: 65+ Years [...] Date/Time Associated Diagnosis Comments DIFFERENTIAL, AUTOMATED STAT 09/17/2023 2:30 PM EST 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) HEPATITIS B SURFACE ANTIBODY STAT 09/17/2023 2:30 PM EST 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) TSH WITH FREE T4 IF INDICATED STAT 09/17/2023 2:30 PM EST 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) COMPREHENSIVE METABOLIC PANEL STAT 09/17/2023 2:30 PM EST 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) HEPATITIS B CORE ANTIBODIES IGG AND IGM STAT 09/17/2023 2:30 PM EST 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) HEPATITIS B SURFACE ANTIGEN STAT 09/17/2023 2:30 PM EST 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) CBC STAT 09/17/2023 2:30 PM EST 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) CBC STAT 09/17/2023 2:30 PM EST 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 in this encounter Results * (ABNORMAL) DIFFERENTIAL, AUTOMATED (09/17/2023 2:30 PM EST) WBC 7.40 4.00 - 10.80 K/uL 09/17/2023 2:40 PM EST [facility] 56-02 Neutrophils % 57.5 40.0 - 75.0 % 09/17/2023 2:40 PM EST [facility] 56-02 Lymphocytes % 23.5 18.0 - 42.0 % 09/17/2023 2:40 PM EST [facility] 56-02 Monocytes % 12.0(H) 1.0 - 11.0 % 09/17/2023 2:40 PM EST [facility] 56-02 Eosinophils % 6.5(H) 0.0 - 6.0 % 09/17/2023 2:40 PM EST [facility] 56-02 Basophils % 0.5 0.0 - 2.0 % 09/17/2023 2:40 PM EST [facility] 56-02 Absolute Neutrophils 4.25 1.80 - 7.70 K/uL 09/17/2023 2:40 PM EST [facility] 56-02 Absolute Lymphocytes 1.74 1.00 - 4.80 K/ul 09/17/2023 2:40 PM EST [facility] 56-02 Absolute Monocytes 0.89 0.00 - 1.10 K/uL 09/17/2023 2:40 PM EST [facility] 56-02 Absolute Eosinophils 0.48 0.00 - 0.70 K/uL 09/17/2023 2:40 PM EST [facility] 56-02 Absolute Basophils 0.04 0.00 - 0.20 K/uL 09/17/2023 2:40 PM EST [facility] 56 Blood Venous blood specimen / Unknown Venipuncture / Unknown 09/17/2023 2:30 PM EST 09/17/2023 2:30 PM EST Martínez Lopes MD LAB BLOOD ORDERABLES [address] [place], [place] [phone] * (ABNORMAL) CBC (09/17/2023 2:30 PM EST) WBC 7.40 4.00 - 10.80 K/uL 09/17/2023 2:40 PM EST [address] RBC 3.20 3.85 - 5.15 M/uL 09/17/2023 2:40 PM EST [address] HGB 7.8(L) 12.0 - 15.3 g/dL 09/17/2023 2:[address] HCT 27.2(L) 36.0 - 45.2 % 09/17/2023 2:40 PM [facility] 56 MCV 85.0 81.5 - 97.5 fL 09/17/2023 2:[address] MCH 24.4 27.0 - 34.0 pg 09/17/2023 2:[address] MCHC 28.7 32.0 - 36.0 g/dL 09/17/2023 2:40 PM [facility] 56 RDW 13.9 11.5 - 15.5 % 09/17/2023 2:40 PM [facility] 56 PLT 360 140 - 400 K/uL 09/17/2023 2:40 PM [facility] 56 MPV 8.7 6.6 - 11.1 fL 09/17/2023 2:40 PM [facility] 56 Blood Venous blood specimen / Unknown Venipuncture / Unknown 09/17/2023 2:30 PM EST 09/17/2023 2:30 PM EST Martínez Lopes MD LAB BLOOD ORDERABLES [facility] 56- [address] [place] [address] * TSH WITH FREE T4 IF INDICATED (09/17/2023 2:30 PM EST) TSH 1.54 0.27 - 4.20 uIU/mL 09/18/2023 12:35 AM EST [facility] Blood Venous blood specimen / Unknown Venipuncture / Unknown 09/17/2023 2:30 PM EST 09/17/2023 2:30 PM EST Martínez Lopes MD LAB BLOOD ORDERABLES [facility] [address] [place] [address] * (ABNORMAL) COMPREHENSIVE METABOLIC PANEL (09/17/2023 2:30 PM EST) BUN 14 6 - 20 mg/dL 09/17/2023 3:05 PM [facility] 56- Creatinine 0.9 0.5 - 1.0 mg/dL 09/17/2023 3:05 PM [facility] 56- Estimated Glomerular Filtration Rate 68 >=60 mL/min 09/17/2023 3:05 PM [facility] 56- Comment:eGFR is calculated b ased on the CKD-EPI 2020 equation Sodium 137 135 - 146 mmol/L 09/17/2023 3:05 PM [facility] 56- Potassium 3.8 3.5 - 5.1 mmol/L 09/17/2023 3:05 PM [facility] 56- Chloride 97(L) 98 - 107 mmol/L 09/17/2023 3:05 PM [facility] 56- CO2 29 22 - 32 mmol/L 09/17/2023 3:05 PM [facility] 56- Anion Gap 11 7 - 15 mmol/L 09/17/2023 3:05 PM [facility] 56- Glucose 110 70 - 120 mg/dL 09/17/2023 3:05 PM [facility] 56-02 Albumin 3.8 3.8 - 5.0 g/dL 09/17/2023 3:05 PM EST [facility] 56-02 AST 16 10 - 35 U/L 09/17/2023 3:05 PM [facility] 56-02 Alkaline Phosphatase 67 35 - 130 U/L 09/17/2023 3:05 PM EST [facility] 56-02 Bilirubin, Total 0.2 <=1.2 mg/dL 09/17/2023 3:05 PM EST [facility] 5602 Calcium 9.1 8.4 - 10.2 mg/dL 09/17/2023 3:05 PM [facility] 56-02 Protein 6.4 6.0 - 8.3 g/dL 09/17/2023 3:05 PM EST [facility] 56-02 ALT 10 10 - 35 U/L 09/17/2023 3:05 PM EST [facility] 56-02 Blood Venous blood specimen / Unknown Venipuncture / Unknown 09/17/2023 2:30 PM EST 09/17/2023 2:30 PM EST Martínez Lopes MD LAB BLOOD ORDERABLES [facility] 56-02 [address] [place] [address] * HEPATITIS B CORE ANTIBODIES IGG AND IGM (09/17/2023 2:30 PM EST) Hepatitis B Core Antibodies IgG and IgM Negative Negative 09/18/2023 2:44 AM EST [facility] Blood Venous blood specimen / Unknown Venipuncture / Unknown 09/17/2023 2:30 PM EST 09/17/2023 2:30 PM EST Martínez Lopes MD LAB BLOOD ORDERABLES [facility] [address] [place] [address] * HEPATITIS B SURFACE ANTIGEN (09/17/2023 2:30 PM EST) Hepatitis B Surface Antigen Negative Negative 09/18/2023 2:44 AM EST [facility] Blood Venous blood specimen / Unknown Venipuncture / Unknown 09/17/2023 2:30 PM EST 09/17/2023 2:30 PM EST Martínez Lopes MD LAB BLOOD ORDERABLES Performing Organization Address [facility] Phone Number [facility] [address] [place] [address] * HEPATITIS B SURFACE ANTIBODY (09/17/2023 2:30 PM EST) Pathologist [facility] Hepatitis B Surface Antibody, Quantitative <3.5 mIU/mL 09/18/2023 2:44 AM EST [facility] Hepatitis B Surface Antibody, Qualitative Negative 09/18/2023 2:44 AM EST [facility] Hepatitis B Surface Antibody, Interpretation NOT immune to Hepatitis B Virus 09/18/2023 2:44 AM EST [facility] Comment: POSITIVE: >=11.5 mIU/mL INDETERMINATE: 8.5-<11.5 mIU/mL NEGATIVE: <8.5 mIU/mL Blood Venous blood specimen / Unknown Venipuncture / Unknown 09/17/2023 2:30 PM EST 09/17/2023 2:30 PM EST Martínez Lopes MD LAB BLOOD ORDERABLES Performing Organization Address [facility] Co de Phone Number [facility]AT[facility] [address] [place] [address] documented in this encounter Visit Diagnoses Diagnosis 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 documented in this encounter Advance Directives Documents on File Type Date Recorded Patient Evp Marketing Expl anation POLST 10/15/2019 3:17 PM POLST POLST 03/05/2019 POLST FORM Advance Directives and Living Will 01/27/2013 LIVING WILL Advance Directives and Living Will 01/27/2013 LIVING WILL Power of Night Manager 01/27/2013 POWER OF A TTORNEY Power of Night Manager 01/27/2013 POWER OF A TTORNEY Healthcare Agents on File Name Relationship Healthcare Agent Relationship Communication Cydney Benito Other - (no specific identity) Second Alternate Health Care Agent Anyi More Adult Child Health Care Roberth r of Night Manager Care Teams Delivery Truck Driver Relationship Specialty Start Date End Date Rhys Humphrey MD [address] [place] [address] [place] [phone] PCP - General Family Medicine 06/09/21 documented as of this encounter
--- OUTSIDE RECORDS SUMMARY | 2023-10-29 06:22 | External Medical Summary ---
Author Name Unknown Address Unknown Organization K09[facility] [address] Laboratory Report Ordering Provider Test Date Status TIERA GARCIA 09/17/2023 14:30:42 Final Observation Date Value Abnormality Reference (Units ) Status WBC, Total 09/17/2023 14:30:42 7.40 4.00-10.8 0 (K/uL) Final RBC 09/17/2023 14:30:42 3.20 3.85-5.15 (M/uL) Final Hemoglobin 09/17/2023 14:30:42 7.8 Below low normal 12 .0-15.3 (g/dL) Final HCT 09/17/2023 14:30:42 27.2 Below low normal 36. 0-45.2 (%) Final MCV 09/17/2023 14:30:42 85.0 81.5-97.5 (fL) Final MCH 09/17/2023 14:30:42 24.4 27.0-34.0 (pg) Final MCHC 09/17/2023 14:30:42 28.7 32.0-36.0 (g/dL) Final RDW 09/17/2023 14:30:42 13.9 11.5-15.5 (%) Final Platelets 09/17/2023 14:30:42 360 140-400 (K /uL) Final MPV 09/17/2023 14:30:42 8.7 6.6-11.1 ( fL) Final Performing Location [facility] [address]
--- OUTSIDE RECORDS SUMMARY | 2023-10-29 06:22 | External Medical Summary | Summary of Care ---
Author Name Unknown Organization [facility] Address [address] [place] [address] Phone [phone] Care Team Providers Care Regional Account Director Name Role Phone Rhys Humphrey MD Primary Care Provide r Reason for Visit * Reason Onset Date Comments Precert Future 09/18/2023 Tecentriq, carbo , etoposide, udenyca Encounter Details Date Type Department Care Team (Late st Contact Info) Description 09/18/2023 Telephone Hematology/Oncology Treatment, [place] [address] [place] [address] Martínez Lopes MD [address] [place] [address] Precert Future (Tecentriq, carbo, etoposid... Allergies Active Allergy Reactions Criticality Noted Date Comments Adhesive Tape Other (Please comment),Hives High 09/29/2008 Caused welts Dextromethorphan-Gu aifenesin Neuro complications (Please comment) Medium 12/23/2021 Feels lightheaded/"foggy" documented as of this encounter (statuses as of 09/21/2023) Medications Medication Sig Dispensed Refills Start Date [...] before bedtime. 50 Cap 0 01/18/2021 Active Slfubrm-Qawerlgvk-Fa nc 333-133-5 MG Oral Tablet Take 1 [...] 2017 classification ([facility]) Inhale 1 Puff by mouth in the morning. In addition to anoro. 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),COPD, group D, by GOLD 2017 classification ([facility]) Inhale 1 Puff by mouth in [...] as of this encounter (statuses as of 09/21/2023) Active Problems Problem Noted Date Diagnosed Date [...] as of this encounter (statuses as of 09/21/2023) Resolved Problems Problem Noted Date Diagnosed Date [...] as of this encounter (statuses as of 09/21/2023) Immunizations Name Administration Dates Next Due COVID-19 mRNA, LNP-s, No Pre serve, 2-Dose Series (Virtual Paper) 07/11/2021,11/14/2020,10/24/2020 Covid-19, Mrna, Lnp-s, Pf, B ivalent, 30 Mcg, IM, 12 yrs and above (Virtual Paper) 07/21/2022 Pneumococcal Conjugate Vacc, 13 Valent (Prevnar) 03/16/2015 Pneumococcal Conjugate Vacci ne, 20-valent ([id number]) 07/21/2022 Pneumococcal Polysaccharide PPV23 (Pneumovax) 03/05/2019,07/18/2007 Season [...] Order received for tecentriq, carboplatin, etoposide, udenyca. Forrest plan built and routed for signature. Waiting for auth. Consent signed 09/14/23. Nurse education 09/17/23. Patient had hep B labs 09/17/23. *When auth is back, will need to send to [facility] to ensure tecentriq is available before scheduling* documented in this encounter Plan of Treatment Upcoming Encounters Date Type Department Care Team (Late st Contact Info) Description 09/21/2023 2:30 PM EST [facility], [facility] [address] [place] [address] Sarah Vitale, RN [address] [place] [address] 09/27/2023 11:15 AM EST Nutrition Services [facility], [facility] [address] [facility] [place] [address] Lovely Bravo, SHAKIRN [address] [facility] [place] [address] 09/28/2023 2:30 PM EST [facility], [facility] [address] [place] [address] Sarah Vitale, RAYNA [address] [place] [address] 10/03/2023 10:30 AM EST Office Visit [facility] [address] [place] [phone] Sosa Freeman CRNP [address] [place] [address] 10/16/2023 11:30 AM EST Office Visit Gastroenterology, [facility] [address] [place] [address] Lizzette Silva CRNP [address] [place] [address] 12/10/2023 9:20 AM EDT Office Visit Family Medicine [address] [place] [phone] Rhys Humphrey MD [address] [place] [address] [place] [address] 12/27/2023 11:00 AM EDT Office Visit Cardiology [address] [place] [address] Mi Neil, CECI [address] [place] [address] 03/18/2024 9:00 AM EDT Nurse Only Ancillary [address] [place] [address] [place], Nurse Annual Wellness [address] [place] [address] [place] [address] Scheduled Procedures Name Priority Associated Diagnoses Date/Ti [...] D LEVEL ONCE IN A LIFETIME-USE SMARTSET# 14426 Completed 06/29/2020, 03/16/2015 Pneumococcal Vaccine: 65+ Years [...] Documents on File Type Date Recorded Patient Fruit Washer Expl anation POLST 10/15/2019 3:17 PM POLST POLST 03/05/2019 POLST FORM Advance Directives and Living Will 01/27/2013 LIVING WILL Advance Directives and Living Will 01/27/2013 LIVING WILL Power of Tractor Distributor 01/27/2013 POWER OF A TTORNEY Power of Tractor Distributor 01/27/2013 POWER OF A TTORNEY Healthcare Agents on File Name Relationship Healthcare Agent Relationship Communication Cydney Benito Other - (no specific identity) Second Alternate Health Care Agent Anyi More Adult Child Health Care Roberth cooper of Tractor Distributor Care Teams Regional Account Director Relationship Specialty Start Date End Date Rhys Humphrey MD [address] [place] [address] [place] [address] PCP - General Family Medicine 06/09/21 documented as of this encounter
--- OUTSIDE RECORDS SUMMARY | 2023-10-29 06:22 | External Medical Summary | Summary of Care ---
Author Name Unknown Organization [facility] Address [address] [place] [address] Phone [phone] Care Team Providers Care Boxing Inspector Name Role Phone Rhys Humphrey MD Primary Care Provide r Encounter Details Date Type Department Care Team (Late st Contact Info) Description 08/12/2023 Result Scan Unspecified Department <No scans attached> Allergies Active Allergy Reactions Criticality Noted Date [...] before bedtime. 50 Cap 0 01/18/2021 Active Nbrltpw-Scyxbpguh-Zb nc 333-133-5 MG Oral Tablet Take 1 [...] 2022 Small cell neuroendocrine carcinoma of lung 11/2 10/2022 Acute respiratory failure with hypoxia 3 Acute [...] (Prevnar) 03/16/2015 Pneumococcal Conjugate Vacci ne, 20-valent ([id number]) 07/21/2022 Pneumococcal Polysaccharide PPV23 (Pneumovax) 03/05/2019,07/18/2007 Season [...] 2:30 PM EST [facility] [address] [facility] [place] [address] Sarah Vitale RN [address] [facility] [place] [address] 09/27/2023 11:15 AM EST Nutrition Services [facility], [facility] [address] [facility] [place] [address] Lovely Bravo RDN [address] [place] [address] 09/28/2023 2:30 PM EST [facility] [place], [facility] [address] [facility] [place] [address] Sarah Vitale, RAYNA [address] [place] [address] 10/03/2023 10:30 AM EST Office Visit Sleep Disorders Ctr [facility] [address] [place] [phone] Sosa Freeman CRNP [address] [place] [address] 10/16/2023 11:30 AM EST Office Visit Gastroenterology, [facility] [address] [place] [address] Lizzette Silva CRNP [address] [place] [address] 12/10/2023 9:20 AM EDT Office Visit Family Medicine [address] [place] [phone] Rhys Humphrey MD [address] [place] [address] [place] [address] 12/27/2023 11:00 AM EDT Office Visit Cardiology [address] [place] [address] Mi Neil, CECI [address] [facility] [place] [address] 03/18/2024 9:00 AM EDT Nurse Only Ancillary [address] [place] [address] [place], Nurse Annual [address] [place] [address] Scheduled Procedures Name Priority Associated Diagnoses Date/Ti [...] D LEVEL ONCE IN A LIFETIME-USE SMARTSET# 06993 Completed 06/29/2020, 03/16/2015 Pneumococcal Vaccine: 65+ Years [...] Procedure Name Priority Date/Time Associated Diagnosis Comments EKG SCANNED RESULT 08/12/2023 documented in this encounter Results * EKG SCANNED RESULT (08/12/2023) 08/12/2023 No Physician Data Unknown EKG documented in this encounter Advance Directives Documents on File Type Date Recorded Patient Chipper Expl anation POLST 10/15/2019 3:17 PM POLST POLST 03/05/2019 POLST FORM Advance Directives and Living Will 01/27/2013 LIVING WILL Advance Directives and Living Will 01/27/2013 LIVING WILL Power of Loading Unit Operator Powder Charging 01/27/2013 POWER OF A TTORNEY Power of Loading Unit Operator Powder Charging 01/27/2013 POWER OF A TTORNEY Healthcare Agents on File Name Relationship Healthcare Agent Relationship Communication Cydney Benito Other - (no specific identity) Second Alternate Health Care Agent Anyi More Adult Child Health Care Roberth r of Loading Unit Operator Powder Charging Care Teams Boxing Inspector Relationship Specialty Start Date End Date Rhys Humphrey MD [address] [place] [address] [place] [phone] PCP - General Family Medicine 06/09/21 documented as of this encounter
--- OUTSIDE RECORDS SUMMARY | 2023-10-29 06:22 | External Medical Summary | Summary of Care ---
Author Name Unknown Organization [facility] Address [address] [place] [address] Phone [phone] Care Team Providers Care Insurance Attorney Name Role Phone Rhys Humphrey MD Primary Care Provide r Encounter Details Date Type Department Care Team (Late st Contact Info) Description 09/18/2023 Orders Only Family Medicine [address] [phone] Rhys Humphrey MD [address] [place] [address] [place] [phone] Allergies Active Allergy Reactions Criticality Noted Date [...] before bedtime. 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),COPD, group D, by [...] (Prevnar) 03/16/2015 Pneumococcal Conjugate Vacci ne, 20-valent ([id number]) 07/21/2022 Pneumococcal Polysaccharide PPV23 (Pneumovax) 03/05/2019,07/18/2007 Season [...] 2:30 PM EST [facility] Visit [facility] [address] [facility] [place] [address] Sarah Vitale RN [address] [facility] [place] [address] 09/27/2023 11:15 AM EST [facility] Services [facility], [facility] [address] [facility] [place] [address] Lovely Bravo RDN [address] [place] [address] 09/28/2023 2:30 PM EST [facility] Visit [facility] [place], [facility] [address] [facility] [place] [address] Sarah Vitale, RAYNA [address] [place] [address] 10/03/2023 10:30 AM EST Office Visit Sleep Disorders Ctr [facility] [address] [place] [phone] Sosa Freeman CRNP [address] [place] [address] 10/16/2023 11:30 AM EST Office Visit Gastroenterology, [facility] [address] [place] [address] Lizzette Silva CRNP [address] [place] [address] 12/10/2023 9:20 AM EDT Office Visit Family Medicine [address] [place] [phone] Rhys Humphrey MD [address] [place] [address] [place] [address] 12/27/2023 11:00 AM EDT Office Visit Cardiology [address] [place] [address] [place], CECI [address] [facility] [place] [address] 03/18/2024 9:00 AM EDT Nurse Only Ancillary [address] [place] [address] [place], Nurse Annual [address] [place] [address] Scheduled Procedures Name Priority Associated Diagnoses Date/Ti [...] D LEVEL ONCE IN A LIFETIME-USE SMARTSET# 26341 Completed 06/29/2020, 03/16/2015 Pneumococcal Vaccine: 65+ Years [...] Diagnosis Comments XR CHEST 1 VIEW Routine 08/12/2023 CTA CHEST NON-CORONARY W CONTRAST Routine 08/12/2023 documented in this encounter Results * XR CHEST 1 VIEW (08/12/2023) Anatomical Region Laterality Modality Chest Other 08/12/2023 Susan Neal MD RADIOLOGY (R AD GENERAL) * CTA CHEST NON-CORONARY W CONTRAST (08/12/2023) Anatomical Region Laterality Modality Chest, Cardio, Body Other 08/12/2023 Susan Neal MD RAD CT documented in this encounter Advance Directives Documents on File Type Date Recorded Patient Radio Tester Expl anation POLST 10/15/2019 3:17 PM POLST POLST 03/05/2019 POLST FORM Advance Directives and Living Will 01/27/2013 LIVING WILL Advance Directives and Living Will 01/27/2013 LIVING WILL Power of Fur Clipper 01/27/2013 POWER OF A TTORNEY Power of Fur Clipper 01/27/2013 POWER OF A TTORNEY Healthcare Agents on File Name Relationship Healthcare Agent Relationship Communication Cydney Benito Other - (no specific identity) Second Alternate Health Care Agent Anyi More Adult Child Health Care Roberth r of Fur Clipper Care Teams Insurance Attorney Relationship Specialty Start Date End Date Rhys Humphrey MD [address] [place] [address] [place] [address] PCP - General Family Medicine 06/09/21 documented as of this encounter
--- OUTSIDE RECORDS SUMMARY | 2023-10-29 06:22 | External Medical Summary ---
Author Name Unknown Address Unknown Organization [id number]:[facility] [place] [address] [place] [address] Laboratory Report Ordering Provider Test Date Status TIERA GARCIA 09/17/2023 14:30:42 Final Observation Date Value Abnormality Reference (Units ) Status TSH 09/17/2023 14:30:42 1.54 0.27-4.20 (uIU/mL) Final Performing Location [facility] - [address] [place] [address]
--- OUTSIDE RECORDS SUMMARY | 2023-10-29 06:22 | External Medical Summary | Summary of Care ---
Author Name Unknown Organization [facility] Address [address] [place] [address] Phone [phone] Care Team Providers Care Bdc Manager Name Role Phone Rhys Humphrey MD Primary Care Provide r Reason for Visit * Reason Onset Date Comments Precert Future 09/18/2023 Tecentriq, carbo , etoposide, udenyca Encounter Details Date Type Department Care Team (Late st Contact Info) Description 09/18/2023 Telephone Hematology/Oncology Treatment, [place] [address] [place] [address] Martínez Lopes MD [address] [place] [address] Precert Future (Tecentriq, carbo, etoposid... Allergies Active [...] before bedtime. 50 Cap 0 01/18/2021 Active Vwoybwe-Ddiiccxmq-Zb nc 333-133-5 MG Oral Tablet Take 1 [...] ([facility]) Inhale 1 Puff by mouth in the morning. In addition to anoro. 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 D, moderate (HCC),COPD, group D, by GOLD 2017 classification ([facility]) Inhale 1 Puff by mouth in [...] mRNA, LNP-s, No Pre serve, 2-Dose Series ([employer]) 07/11/2021,11/14/2020,10/24/2020 Covid-19, Mrna, Lnp-s, Pf, B ivalent, 30 Mcg, IM, 12 yrs and above ([employer]) 07/21/2022 Pneumococcal Conjugate Vacc, 13 Valent (Prevnar) 03/16/2015 Pneumococcal Conjugate Vacci ne, 20-valent ([id number]) 07/21/2022 Pneumococcal Polysaccharide PPV23 (Pneumovax) 03/05/2019,07/18/2007 Season [...] Order received for tecentriq, carboplatin, etoposide, udenyca. [place] plan built and routed for signature. Waiting for auth. Consent signed 09/14/23. Nurse education 09/17/23. Patient had hep B labs 09/17/23. *When auth is back, will need to send to [facility] to ensure tecentriq is available before scheduling* documented in this encounter Plan of Treatment Upcoming Encounters Date Type Department Care Team (Late st Contact Info) Description 09/21/2023 2:30 PM EST Home Visit [facility] [place], [address] [place] [address] Sarah Vitale, RN [address] [place] [address] 09/27/2023 11:15 AM EST Nutrition Services [facility], [facility] [address] [facility] [place] [address] Lovely Bravo RDN [address] [facility] [place] [address] 09/28/2023 2:30 PM EST Home Visit [facility], [facility] [address] [place] [address] Sarah Vitale, RAYNA [address] [place] [address] 10/03/2023 10:30 AM EST Office Visit Sleep Disorders Ctr [facility] [address] [place] [phone] Sosa Freeman CRNP [address] [place] [address] 10/16/2023 11:30 AM EST Office Visit Gastroenterology, [facility] [address] [place] [address] Lizzette Silva CRNP [address] [place] [address] 12/10/2023 9:20 AM EDT Office Visit Family Medicine [address] [place] [phone] Rhys Humphrey MD [address] [place] [address] [place] [address] 12/27/2023 11:00 AM EDT Office Visit Cardiology [address] [place] [address] [place] Neil PA-C [address] [place] [address] 03/18/2024 9:00 AM EDT Nurse Only Ancillary [address] [place] [address] [place], Nurse [address] [place] [address] Scheduled Procedures Name Priority Associated Diagnoses Date/Ti [...] D LEVEL ONCE IN A LIFETIME-USE SMARTSET# [id number] Completed 06/29/2020, 03/16/2015 Pneumococcal Vaccine: 65+ Years [...] Documents on File Type Date Recorded Patient Pig Sticker Expl anation POLST 10/15/2019 3:17 PM POLST POLST 03/05/2019 POLST FORM Advance Directives and Living Will 01/27/2013 LIVING WILL Advance Directives and Living Will 01/27/2013 LIVING WILL Power of Licensed Practical Nurse Instructor 01/27/2013 POWER OF A TTORNEY Power of Licensed Practical Nurse Instructor 01/27/2013 POWER OF A TTORNEY Healthcare Agents on File Name Relationship Healthcare Agent Relationship Communication Cydney Benito Other - (no specific identity) Second Alternate Health Care Agent Anyi More Adult Child Health Care Roberth r of Licensed Practical Nurse Instructor Care Teams Bdc Manager Relationship Specialty Start Date End Date Rhys Humphrey MD [address] [place] [address] [place] [address] PCP - General Family Medicine 06/09/21 documented as of this encounter
--- OUTSIDE RECORDS SUMMARY | 2023-10-29 06:22 | External Medical Summary ---
Author Name Unknown Address Unknown Organization K09:[facility] [place] [address] Laboratory Report Ordering Provider Test Date Status TIERA GARCIA 09/17/2023 14:30:42 Final Observation Date Value Abnormality Reference (Units ) Status SYNC LEUKOCYTES IN BLOOD BY AUTOMATED COUNT 09/17/2023 14:30:42 7.40 4.00-10.80 (K/uL) Final Segs 09/17/2023 14:30:42 57.5 40.0-75.0 (%) Final Lymphs % 09/17/2023 14:30:42 23.5 18.0-42.0 (%) Final Monos 09/17/2023 14:30:42 12.0 Above high normal 1.0-11.0 (%) Final Eosinophils 09/17/2023 14:30:42 6.5 Above high normal 0.0-6.0 (%) Final Basos 09/17/2023 14:30:42 0.5 0.0-2.0 (%) Final Absolute Segs 09/17/2023 14:30:42 4.25 1.80-7.70 (K/uL) Final Lymphs, absolute 09/17/2023 14:30:42 1.74 1.00-4.80 (K/ul) Final Monos, Abs 09/17/2023 14:30:42 0.89 0.00-1.10 (K/uL) Final Eos, Abs 09/17/2023 14:30:42 0.48 0.00-0.70 (K/uL) Final Basos, Abs 09/17/2023 14:30:42 0.04 0.00-0.20 (K/uL) Final Performing Location [facility] [place] [address]
--- OUTSIDE RECORDS SUMMARY | 2023-10-29 06:22 | External Medical Summary ---
Author Name Unknown Address Unknown Organization K09:[facility] [address] [place] [address] Laboratory Report Ordering Provider Test Date Status TIERA GARCIA 09/17/2023 14:30:42 Final Observation Date Value Abnormality Reference (Units ) Status BUN 09/17/2023 14:30:42 14 6-20 (mg/dL) Final Creatinine 09/17/2023 14:30:42 0.9 0.5-1.0 (mg/dL) Final Glomerular filtration rate/1.73 sq M.predicted [Volume Rate/Area] in Serum, Plasma or Blood by Creatinine-based formula (CKD-EPI) 09/17/2023 14:30:42 68 >=60 (mL/min) Final eGFR is calculated based on the CKD-EPI 2020 equation SODIUM 09/17/2023 14:30:42 137 135-146 (m mol/L) Final Potassium 09/17/2023 14:30:42 3.8 3.5-5.1 (m mol/L) Final Cl 09/17/2023 14:30:42 97 Below low normal 98- 107 (mmol/L) Final CO2 09/17/2023 14:30:42 29 22-32 (mmo l/L) Final Anion gap 09/17/2023 14:30:42 11 7-15 (mmol /L) Final Glucose 09/17/2023 14:30:42 110 70-120 (mg /dL) Final Albumin 09/17/2023 14:30:42 3.8 3.8-5.0 (g /dL) Final AST (Aspartate aminotransferase) 09/17/2023 14:30:42 16 10-35 (U/L) Fin al Alk Phos 09/17/2023 14:30:42 67 35-130 (U/ L) Final Bilirubin, Total 09/17/2023 14:30:42 0.2 <=1 .2 (mg/dL) Final Calcium 09/17/2023 14:30:42 9.1 8.4-10.2 ( mg/dL) Final Protein 09/17/2023 14:30:42 6.4 6.0-8.3 (g /dL) Final ALT (Alanine aminotransferase) 09/17/2023 14:30:42 10 10-35 (U/L) Aaron sharp Performing Location [facility] [address] [place] [address]
--- OUTSIDE RECORDS SUMMARY | 2023-10-29 06:22 | External Medical Summary | Summary of Care ---
Author Name Unknown Organization [facility] Address [address] [place] [address] Phone [phone] Care Team Providers Care Hacksaw Inspector Name Role Phone Rhys Humphrey MD Primary Care Provide r Encounter Details Date Type Department Care Team (Late st Contact Info) Description 09/18/2023 Abstract Hematology/Oncology [facility] [place] [address] [place] [address] Martínez Lopes MD [address] [place] [facility] [place] [address] Allergies Active Allergy Reactions Criticality Noted Date [...] before bedtime. 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),COPD, group D, by [...] lung 08/02 Acute respiratory failure with hypoxia 11/21/202 3 Acute serous otitis media 01/01/2023 Nontoxic [...] mRNA, LNP-s, No Pre serve, 2-Dose Series ([email or web address])) 07/11/2021,11/14/2020,10/24/2020 Covid-19, Mrna, Lnp-s, Pf, B ivalent, 30 Mcg, IM, 12 yrs and above ([employer]) 07/21/2022 Pneumococcal Conjugate Vacc, 13 Valent (Prevnar) 03/16/2015 Pneumococcal Conjugate Vacci ne, 20-valent ([id number]) 07/21/2022 Pneumococcal Polysaccharide PPV23 (Pneumovax) 03/05/2019,07/18/2007 Season [...] 2:30 PM EST [facility] Visit [facility] [address] [place] [address] Sarah Vitale RN [address] [place] [address] 09/27/2023 11:15 AM EST [facility] Services [facility], [facility] [address] [place] [address] Lovely Bravo RDN [address] [place] [address] 09/28/2023 2:30 PM EST [facility] Visit [facility] [place], [facility] [address] [place] [address] Sarah Vitale, RN [address] [place] [address] 10/03/2023 10:30 AM EST Office Visit [facility] Disorders Ctr [facility] [address] [place] [phone] Sosa Freeman CRNP [address] [place] [address] 10/16/2023 11:30 AM EST Office Visit Gastroenterology, [facility] [address] [place] [address] Lizzette Silva CRNP [address] [place] [address] 12/10/2023 9:20 AM EDT Office Visit Family Medicine [address] [place] [phone] Rhys Humphrey MD [address] [place] [address] [place] [address] 12/27/2023 11:00 AM EDT Office Visit Cardiology [address] [place] [address] [place], CECI [address] [place] [address] 03/18/2024 9:00 AM EDT Nurse Only Ancillary [address] [place] [address] [place], Nurse Annual [address] [place] [address] Scheduled Procedures Name Priority Associated Diagnoses Date/Ti [...] FOR COPD 08/10/2024 08/10/2023 GFR 09/17/2024 09/17/2023, /01/2023, 07/03/2023, Additional history exists Albumin/Creatinine Ratio 04/28/2025 04/28/2022 DTaP,Tdap,and Td Vaccines (3 - Td or Tdap) 09/17/2029 09/17/2019, 08/10/2011, 10/01/2001 Zoster Vaccines Completed 04/25/2020, 08/31, 07/22/2012 VITAMIN D LEVEL ONCE IN A LIFETIME-USE SMARTSET# [id number] Completed 06/29/2020, 03/16/2015 Pneumococcal Vaccine: 65+ Years [...] Documents on File Type Date Recorded Patient Pipe Organ Mechanic Apprentice Expl anation POLST 10/15/2019 3:17 PM POLST POLST 03/05/2019 POLST FORM Advance Directives and Living Will 01/27/2013 LIVING WILL Advance Directives and Living Will 01/27/2013 LIVING WILL Power of Research Group Director 01/27/2013 POWER OF A TTORNEY Power of Research Group Director 01/27/2013 POWER OF A TTORNEY Healthcare Agents on File Name Relationship Healthcare Agent Relationship Communication Cydney Benito Other - (no specific identity) Second Alternate Health Care Agent Anyi More Adult Child Health Care Roberth r of Research Group Director Care Teams Hacksaw Inspector Relationship Specialty Start Date End Date Rhys Humphrey MD [address] [place] [address] [place] [address] PCP - General Family Medicine 06/09/21 documented as of this encounter
--- OUTSIDE RECORDS SUMMARY | 2023-10-29 06:22 | External Medical Summary | Summary of Care ---
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 Use as directed. 1 Each 1 11/17/2019 Active Iron 325 (65 Fe) MG Oral Tablet Take 1 Tablet by mouth daily. 0 Active Cranberry 500 MG Oral Capsule Take 1 Capsule by mouth in the morning and 1 Capsule before bedtime. 50 Cap 0 01/18/2021 Active Idznqwa-Jkfymhybu-S inc 333-133-5 MG Oral Tablet Take 1 [...] 2017 classification ([facility]) Inhale 1 Puff by mouth in the morning. In addition to anoro. 30 Each 11 08/20/2023 Active Anoro Ellipta 62.5-25 MCG/ACT Inhalation Aerosol Powder Breath Activated (umeclidinium-vilan terol)Indications:C OPD, moderate (HCC),COPD, group D, by GOLD 2017 classification ([facility]) Inhale 1 Puff by mouth in the morning. 30 Each 11 08/20/2023 Active Ondansetron HCl 8 MG Oral TabletIndications:S [...] each cycle 20 Tablet 0 09/17/2023 Active Loratadine 10 MG Oral Tablet (Claritin)Indicatio ns:Dysfunction of both eustachian tubes Take 1 Tablet by mouth in the morning. For nasal congestion and ear pressure. 30 Tablet 1 10/06/2022 3 Discontinu ed(Medicat ion List Clean Up) documented as of this encounter (statuses as of 09/17/2023) Active Problems Problem Noted Date Diagnosed Date Small cell neuroendocrine carcinoma of lung 08/02 [...] as of this encounter (statuses as of 09/17/2023) Resolved Problems Problem Noted Date Diagnosed Date [...] as of this encounter (statuses as of 09/17/2023) Immunizations Name Administration Dates Next Due COVID-19 mRNA, LNP-s, No Pre serve, 2-Dose Series ([employer]) 07/11/2021,11/14/2020,10/24/2020 Covid-19, Mrna, Lnp-s, Pf, B ivalent, 30 Mcg, IM, 12 yrs and above ([employer]) 07/21/2022 Pneumococcal Conjugate Vacc, 13 Valent (Prevnar) 03/16/2015 Pneumococcal Conjugate Vacci ne, 20-valent ([id number]) 07/21/2022 Pneumococcal Polysaccharide PPV23 (Pneumovax) 03/05/2019,07/18/2007 Season [...] Telephone Encounter - Agatha Lowe RN - 09/17/2023 1:53 PM EST Pended claritin to be taken with davina documented in this encounter Plan of Treatment Upcoming Encounters Date Type Department Care Team (Late st Contact Info) Description 09/21/2023 2:30 PM EST Home Visit [facility] [address] [place] [address] Sarah Vitale, RN [address] [place] [address] 09/27/2023 11:15 AM EST [facility], [facility] [address] [facility] [place] [address] Lovely Bravo, SHAKIRN [address] [place] [address] 09/28/2023 2:30 PM EST [facility], [facility] [address] [place] [address] Sarah Vitale, RAYNA [address] [place] [address] 10/03/2023 10:30 AM EST Office Visit Sleep Disorders Ctr [facility] [address] [place] [phone] Sosa Freeman CRNP [address] [place] [address] 10/16/2023 11:30 AM EST Office Visit Gastroenterology, [facility] [address] [place] [address] Lizzette Silva CRNP [address] [place] [address] 12/10/2023 9:20 AM EDT Office Visit Family Medicine [address] [place] [phone] Rhys Humphrey MD [address] [place] [address] [place] [address] 12/27/2023 11:00 AM EDT Office Visit Cardiology [address] [place] [address] Mi Neil PA-C [address] [place] [address] 03/18/2024 9:00 AM EDT Nurse Only Ancillary [place] [place] [place] [address] [place] Nurse [address] [place] [address] Scheduled Procedures Name Priority Associated Diagnoses Date/Ti [...] PAST YEAR FOR COPD 08/10/2024 08/10/2023 GFR 09/04/2024 09/04/2023, 11/2022, 06/13/2023, Additional history exists Albumin/Creatinine Ratio 04/28/2025 04/28/2022 DTaP,Tdap,and Td Vaccines (3 - Td or Tdap) 09/17/2029 09/17/2019, 08/10/2011, 10/01/2001 Zoster Vaccines Completed 04/25/2020, 08/31, 07/22/2012 VITAMIN D LEVEL ONCE IN A LIFETIME-USE SMARTSET# [id number] Completed 06/29/2020, 03/16/2015 Pneumococcal Vaccine: 65+ Years [...] Documents on File Type Date Recorded Patient Piper Helper Expl anation POLST 10/15/2019 3:17 PM POLST POLST 03/05/2019 POLST FORM Advance Directives and Living Will 01/27/2013 LIVING WILL Advance Directives and Living Will 01/27/2013 LIVING WILL Power of Solar Sales Advisor 01/27/2013 POWER OF A TTORNEY Power of Solar Sales Advisor 01/27/2013 POWER OF A TTORNEY Healthcare Agents on File Name Relationship Healthcare Agent Relationship Communication Cydney Benito Other - (no specific identity) Second Alternate Health Care Agent Anyi More Adult Child Health Care Roberth r of Solar Sales Advisor Care Teams Weapons Electrical Engineering Officer Relationship Specialty Start Date End Date Rhys Humphrey MD [address] [place] [address] [place] [address] PCP - General Family Medicine 06/09/21 documented as of this encounter
--- OUTSIDE RECORDS SUMMARY | 2023-10-29 06:22 | External Medical Summary | Summary of Care ---
Author Name Unknown Organization [facility] Address [address] [place] [address] Phone [phone] Care Team Providers Care Ambulance Driver Name Role Phone Rhys Humphrey MD Primary Care Provide r Reason for Visit * Reason Onset Date Comments Precert Future 09/18/2023 Tecentriq, carbo , etoposide, udenyca Encounter Details Date Type Department Care Team (Late st Contact Info) Description 09/18/2023 Telephone Hematology/Oncology Treatment, [place] [address] [place] [address] Martínez Lopes MD [address] [place] [address] Precert Future (Tecentriq, carbo, etoposid... Allergies Active [...] before bedtime. 50 Cap 0 01/18/2021 Active Hbsnkre-Bwkmgxhce-Xc nc 333-133-5 MG Oral Tablet Take 1 [...] GOLD 2017 classification ([facility]) Inhale 1 Puff by mouth in the morning. In addition to anoro. 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 [place] plan built and routed for signature. Waiting [...] AM EST Nutrition Services [facility], [facility] [address] [facility] [place] [address] Lovely Bravo RDN [address] [facility] [place] [address] 09/28/2023 2:30 PM EST Home Visit [facility], [facility] [address] [place] [address] Sarah Vitale, RAYNA [address] [place] [address] 10/03/2023 10:30 AM EST Office Visit Sleep Disorders Ctr [facility] [address] [place] [phone] Sosa Freeman CRNP [address] [place] [address] 10/16/2023 11:30 AM EST Office Visit Gastroenterology, [facility] [address] [place] [address] Lizzette Silva CRNP [address] [place] [address] 12/10/2023 9:20 AM EDT Office Visit Family Medicine [address] [place] [address] Rhys Humphrey MD [address] [place] [address] [place] [address] 12/27/2023 11:00 AM EDT Office Visit Cardiology [address] [place] [address] Mi Neil, CECI [address] [place] [address] 03/18/2024 9:00 AM EDT Nurse Only Ancillary [address] [place] [address] Janinealley, Nurse Annual [address] [place] [address] Scheduled Procedures Name Priority Associated Diagnoses Date/Ti [...] D LEVEL ONCE IN A LIFETIME-USE SMARTSET# 69850 Completed 06/29/2020, 03/16/2015 Pneumococcal Vaccine: 65+ Years [...] on File Type Date Recorded Patient Aircraft Electrical Systems Specialist Expl anation POLST 10/15/2019 3:17 PM POLST POLST 03/05/2019 POLST FORM Advance Directives and Living Will 01/27/2013 LIVING WILL Advance Directives and Living Will 01/27/2013 LIVING WILL Power of Service Parts Coordinator 01/27/2013 POWER OF A TTORNEY Power of Service Parts Coordinator 01/27/2013 POWER OF A TTORNEY Healthcare Agents on File Name Relationship Healthcare Agent Relationship Communication Cydney Benito Other - (no specific identity) Second Alternate Health Care Agent Anyi More Adult Child Health Care Roberth cooper of Service Parts Coordinator Care Teams Ambulance Driver Relationship Specialty Start Date End Date Rhys Humphrey MD [address] [place] [address] [place] [address] PCP - General Family Medicine 06/09/21 documented as of this encounter
--- OUTSIDE RECORDS SUMMARY | 2023-10-29 06:23 | External Medical Summary | Summary of Care ---
Author Name Unknown Organization [facility] Address [address] [place] [address] Phone [phone] Care Team Providers Care Harbor Pilot Name Role Phone Rhys Humphrey MD Primary Care Provide r Reason for Visit * Reason Onset Date Comments [facility]: Maintenance 09/05/2023 Encounter Details Date Type Department Care Team (Latest Contact Info) Description 09/05/2023 9:00 AM EST Scheduled Telephone [facility], [facility] [address] [place] [address] Coordinator, [facility] [address] [place] [address] Normochromic anemia*; Normocytic anemia; 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 50 Cap 0 01/18/2021 Active Aqdbosi-Ujzcgdwue-Op nc 333-133-5 MG Oral Tablet Take 1 [...] by GOLD 2017 classification ([facility]) Inhale 3 mL via nebulizer every [...] Tablet (Lasix)Indications:C hronic diastolic congestive heart failure (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 30 Each 08/20/2023 Active documented as of this encounter (statuses as of 09/10/2023) Active Problems Problem Noted Date Diagnosed Date [...] as of this encounter (statuses as of 09/10/2023) Resolved Problems Problem Noted Date Diagnosed Date [...] 05/31/20 17 Cancer Staging:Clinical:Stage III- Signed by Jose Lopes MD on 11/16/2014 Pathologic: Unsigned TIA (transient ischemic attack) 06/24/2018 documented as of this encounter (statuses as of 09/10/2023) Immunizations Name Administration Dates Next Due COVID-19 mRNA, LNP-s, No Pre serve, 2-Dose Series ([employer]) 07/11/2021,11/14/2020,10/24/2020 Covid-19, Mrna, Lnp-s, Pf, B ivalent, 30 Mcg, IM, 12 yrs and above (Pfizer) 07/21/2022 Pneumococcal Conjugate Vacc, 13 Valent (Prevnar) 03/16/2015 Pneumococcal Conjugate Vacci ne, 20-valent ([id number]) 07/21/2022 Pneumococcal Polysaccharide PPV23 (Pneumovax) 03/05/2019,07/18/2007 SEASONAL [...] Telephone Encounter - Amy Crawford OSA - 09/10/2023 2:01 PM EST Per nursing added lab appt for 09/14. Done. * Telephone Encounter - Agatha Lowe RN - 09/10/2023 1:56 PM EST Called Anyi. She states that she would like patient to have repeat lab work Sunday when she comes to the office. Scheduling: please add lab appt 09/14 at 2:45pm "CBCd, ferritin, iron screen, retic". Anyi is aware. Thanks! * Addendum Note - Jose Lopes MD - 09/10/2023 10:11 AM ESTAddended by: JOSE LOPES on: 09/10/2023 10:11 AM Modules accepted: Orders * Telephone Encounter - Jose Lopes MD - 09/10/2023 10:10 AM EST Her hemoglobin level 7.2 as of 09/04/2023. We should repeat CBCD, ferritin, iron profile, reticulocyte count soon.(Ordered). * Telephone Encounter - Camila Thakur RN - 09/05/2023 10:44 AM EST Received orders and recommendations from Dr Sheffield. Outgoing call to pt and read the entire message to her. She denies having any overt signs of bleeding when asked specifically about each one. She states that she does take her Protonix daily as it is in her pill box. She states that she knows which pills are her asa and Plavix and that she will remove them from herpill boxes. Pt requests that this germination worker call her dtr Anyi to tell her the information as well as the pt states that she does not always have a good memory. Outgoing call to pt's dtr Anyi and read the entire message from Dr Sheffield to her. Anyi states that the pt did have "black diarrhea" on Sunday and that she did have a bright red nosebleed last week. Anyi states that the pt may some days skip taking her meds or she does miss days or doses. The pt's niece handles management of the pt's med pill box and she will be out tomorrow to reorganize it again for the pt. Anyi will tell the pt's niece to hold the asa and Plavix for now. Anyi states that the pt has been diagnosed with cancer, she has an MRI scheduled for Sunday and a PET scan for Sunday to check on if the cancer has spread. Per Anyi the pt is looking at quantity versus quality of life at this time and would probably not want unnecessary testing. Anyi states that the pt is usually an active person but she is getting depressed and will just sit around instead of socializing and playing Bingo. Anyi states she is taking the pt to a mental health appt today. Outgoing all to [facility]- they are currently processing the added on labs. Unsure at this time if EPO can be added on, if not the lab will reach out to Provider. Camila BAUMAN, RN [facility] Intake Triage Coordinator [phone] * Addendum Note - Hunter Sheffield MD - 09/05/2023 10:09 AM ESTAddended by: HUNTER SHEFFIELD on: 09/05/2023 10:09 AM Modules accepted: Orders * Telephone Encounter - Hunter Sheffield MD - 09/05/2023 9:52 AM EST Latest Reference Range & Units 07/20/23 08:45 09/04/23 10:28 CBC Rpt ! Rpt ! CBC WITH WBC DIFFERENTIAL Rpt ! Rpt ! WBC 4.00 - 10.80 K/uL 5.74 7.50 HGB 12.0 - 15.3 g/dL 8.2 (L) 7.2 (L) HCT 36.0 - 45.2 % 29.2 (L) 25.8 (L) MCV 81.5 - 97.5 fL 99.3 94.9 PLT 140 - 400 K/uL 393 490 (H) Absolute Neutrophils 1.80 - 7.70 K/uL 2.86 4.23 Absolute Lymphocytes 1.00 - 4.80 K/ul 1.31 1.46 Absolute Monocytes 0.00 - 1.10 K/uL 0.81 0.96 Absolute Eosinophils 0.00 - 0.70 K/uL 0.67 0.78 (H) Absolute Basophils 0.00 - 0.20 K/uL 0.07 0.05 Latest Reference Range & Units 07/03/23 15:34 09/04/23 10:28 Sodium 135 - 146 mmol/L 139 139 Potassium 3.5 - 5.1 mmol/L 4.2 3.9 Chloride 98 - 107 mmol/L 102 101 CO2 22 - 32 mmol/L 26 24 BUN 6 - 20 mg/dL 18 15 Creatinine 0.5 - 1.0 mg/dL 0.9 0.9 Estimated Glomerular Filtration Rate >=60 mL/min 64 67 Anion Gap 7 - 15 mmol/L 11 14 Glucose 70 - 120 mg/dL 95 118 Calcium 8.4 - 10.2 mg/dL 8.7 8.7 Magnesium 1.5 - 2.6 mg/dL 1.9 Protein 6.0 - 8.3 g/dL 6.0 - 8.3 g/dL 6.0 6.0 LD <=250 U/L 205 10/14/2021 EGD - Erythematous duodenopathy 09/28/2021 capsule endoscopy showed small nonbleeding red spot and duodenum possibly an AVM. 09/09/2021 colonoscopy showed diverticuli and nonbleeding internal hemorrhoids Normochromic anemia (Primary) Normocytic anemia - IRON SCREEN, INCLUDING TIBC; Future; Expected date: 09/05/2023 - VITAMIN B12; Future; Expected date: 09/05/2023 - FOLIC ACID; Future; Expected date: 09/05/2023 - ERYTHROPOIETIN (EPO); Future; Expected date: 09/05/2023 Please advise patient that her red blood cell count has decreased since July (in other words worsening anemia). Cause of this is uncertain. Please ask if she has had any overt signs of GI bleeding including bright red blood per rectum, melena, hematemesis or any other GI symptoms. I added on orders for additional testing. Please call lab and confirm they can be done without a redraw. Please confirm that she is taking Protonix 40 mg daily. Recommend holding aspirin and Plavix temporarily. (I see no evidence of recent IA or stent) She may need a repeat GI workup including EGD and colonoscopy If blood counts continue to drop she may need transfusion Depending on result of labs she may need iron or other vitamin/mineral replacement Cc: Gris Diaz; would appreciate any input on anemia. Thank you. * Telephone Encounter - Camila Thakur RN - 09/05/2023 9:04 AM EST Images from the original note were not included. [facility] Telephonic Nurse Follow-Up Call [facility] Subprogram: Focused Care Management (3-9 months) Follow Up Call Type: 24 hour follow up Acute issue requiring follow-up call: 24 hr f/u leg cramps, hypotension; check on lab results Objective: 08/22/2023 2:25 PM 08/21/2023 1:11 PM 08/18/2023 11:27 AM 08/10/2023 5:10 PM 08/10/2023 4:00 PM VITALS ACROSS ENCOUNTERS BP 128/58 112/58 140/64 105/49 126/63 Pulse 84 84 82 96 96 Weight 67.9 kg 67.3 kg BMI 25.7 kg/m2 25.46 kg/m2 Lab Results Component Value Date PROTEIN - [facility] 6.0 07/03/2023 PROTEIN - [facility] 6.0 07/03/2023 WBC AUTO - [facility] 7.50 09/04/2023 Lab Results Component Value Date WBC AUTO - [facility] 7.50 09/04/2023 HGB - [facility] 7.2 (L) 09/04/2023 PLATELET AUTO - [facility] 490 (H) 09/04/2023 Lab Results Component Value Date SODIUM - [facility] 139 09/04/2023 POTASSIUM - [facility] 3.9 09/04/2023 MAGNESIUM - [facility] 1.9 09/04/2023 CO2 - [facility] 24 09/04/2023 CREATININE - [facility] 0.9 09/04/2023 ESTIMATED GLOMERULAR FILTRATION RATE - [facility] 67 09/04/2023 ALBUMIN - [facility] 3.9 07/03/2023 AST - [facility] 20 07/03/2023 ALT - [facility] 15 07/03/2023 ALKALINE PHOSPHATASE - [facility] 66 07/03/2023 Lab Results Component Value Date LEFT VENTRICULAR EJECTION FRACTION 61 07/12/2023 Remote Patient Monitoring: [facility] Scale: [facility] Blood Pressure Cuff: Oxygen Needs: NO CHANGE from baseline supplemental oxygen needs DME Needs: NO DME needs identified Medications: New medication(s) added: OTC muscle rub Subjective: Condition Status: Symptoms resolved and back to baseline Current Concerns: Spoke with pt who states that she did get a "good night's sleep" last night and did not have any leg cramps. She purchased the OTC muscle rub but did not need to use it. She states that the pharmacist was not sure how to recommend an OTC magnesium supplement for the pt to take at HS. Notified the pt that her Mag and BMP results were normal. Advised that her H/H are low- she states that she does have a hx of anemia and has had blood transfusions in the past. Pt's BP is WNL today. Will send to Provider to inquire about Magnesium supplement for HS as advised by Dr Kerr yesterday. Disposition: Routed to [facility] and/or [facility] Home Care Team for further advice FU call with Maximiliano Escalona RN tomorrow Future Visits Scheduled: Future Appointments-next 60 days Date/Time Provider Specialty Dept Phone 09/06/2023 11:00 AM Josephine Viera Nurse Triage [facility] [phone] 09/07/2023 10:30 AM (Arrive by 10:00 AM) MR2 СЕРГЕЙ SALAS Radiology [phone] 09/10/2023 11:45 AM PET [facility] Radiology [phone] 09/14/2023 3:15 PM (Arrive by 3:00 PM) Jose Lopes MD Hematology Oncology [phone] 09/17/2023 9:40 AM (Arrive by 9:25 AM) Marycruz Almazan PA-C Dermatology [phone] 09/21/2023 2:30 PM Sarah Vitale, RAYNA [facility] [phone] 09/27/2023 11:15 AM Lovely Bravo RDN [facility] [phone] 09/28/2023 2:30 PM Sarah Vitale, RAYNA [facility] [phone] 10/03/2023 10:30 AM (Arrive by 10:15 AM) Sosa Freeman CRNP Sleep Disorders [phone] 10/16/2023 11:30 AM (Arrive by 11:15 AM) Lizzette Silva CRNP Gastroenterology [phone] 12/10/2023 9:20 AM (Arrive by 9:05 AM) Rhys Humphrey MD Family Medicine [phone] 12/27/2023 11:00 AM (Arrive by 10:45 AM) Mi Neil PA-C Cardiology [phone] 03/18/2024 9:00 AM Stanton Nurse Annual Wellness Ancillary [phone] Camila Thakur RN documented in this encounter Plan of Treatment Upcoming Encounters Date Type Department Care Team (Late st Contact Info) Description 09/14/2023 2:40 PM EST Laboratory Laboratory [address] [place] [address] [place] [phone] Ramona Chiu [address] [facility] [address] 09/14/2023 3:15 PM EST Office Visit Hematology/Oncology [facility] [place] [address] [place] [address] Jose Lopes MD [address] [place] [address] 09/21/2023 2:30 PM EST Home Visit [facility], [facility] [address] [facility] [place] [address] Sarah Vitale RN [address] [facility] [place] [address] 09/27/2023 11:15 AM EST Nutrition Services [facility], [facility] [address] [facility] [place] [address] Lovely Bravo RDN [address] [facility] [place] [address] 09/28/2023 2:30 PM EST Home Visit [facility], [facility] [address] [facility] [place] [address] Sarah Vitale RN [address] [facility] [place] [address] 10/03/2023 10:30 AM EST Office Visit Sleep Disorders Ctr [facility] [address] [facility] [place] [address] Sosa Freeman CRNP [address] [place] [address] 10/16/2023 11:30 AM EST Office Visit Gastroenterology, [facility] [address] [facility] [place] [address] Lizzette Silva CRNP [address] [place] [address] 12/10/2023 9:20 AM EDT Office Visit Family Medicine [address] [place] [phone] Rhys Humphrey MD [address] [place] [address] [place] [address] 12/27/2023 11:00 AM EDT Office Visit Cardiology [address] [place] [address] Mi Neil PA-C [address] [place] [address] 03/18/2024 9:00 AM EDT Nurse Only Ancillary [address] [place] [address] [place], Nurse Annual Wellness [address] [place] [address] [place] [address] Scheduled Orders Name Type Priority Associated Diagnoses Orde r Schedule ERYTHROPOIETIN (EPO) Lab Routine Normocytic anemia Expected: 09/05/2023 (Approximate), Expires: 09/04/2024 CBC WITH WBC DIFFERENTIAL Lab STAT Normochromic anemia Normocytic anemia 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) Expected: 09/14/2023, Expires: 09/10/2024 IRON SCREEN, INCLUDING TIBC Lab Routine Normochromic anemia Normocytic anemia 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) Expected: 09/14/2023, Expires: 09/10/2024 FERRITIN Lab Routine Normochromic anemia Normocytic anemia 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) Expected: 09/14/2023, Expires: 09/10/2024 Scheduled Procedures Name Priority Associated Diagnoses Date/Ti [...] FOR COPD 08/10/2024 08/10/2023 GFR 09/04/2024 09/04/2023, 10/0 11/2022, 06/13/2023, Additional history exists Albumin/Creatinine Ratio 04/28/2025 04/28/2022 DTaP,Tdap,and Td Vaccines (3 - Td or Tdap) 09/17/2029 09/17/2019, 08/10/2011, 10/01/2001 Zoster Vaccines Completed 04/25/2020, 08/31, 07/22/2012 VITAMIN D LEVEL ONCE IN A LIFETIME-USE SMARTSET# [id number] Completed 06/29/2020, 03/16/2015 Pneumococcal Vaccine: 65+ Years [...] filedocumented as of this encounter Results * FOLIC ACID (09/04/2023 10:28 AM EST) Folic Acid 18.5 >4.5 ng/mL 09/05/2023 12:06 PM EST LABORATORY [facility] Blood Venous blood specimen / Unknown Venipuncture / Unknown 09/04/2023 10:28 AM EST 09/04/2023 10:28 AM EST Hunter Sheffield MD LAB BLOOD ORDERA BLES Performing Organization Address City/[facility]/ZIP Co de Phone Number LABORATORY [facility] [address] [place] [address] * VITAMIN B12 (09/04/2023 10:28 AM EST) Vitamin B12 1,000 232 - 1,245 pg/mL 09/05/2023 12:06 PM EST LABORATORY [facility] Blood Venous blood specimen / Unknown Venipuncture / Unknown 09/04/2023 10:28 AM EST 09/04/2023 10:28 AM EST Hunter Sheffield MD LAB BLOOD ORDERA BLES Performing Organization Address [facility] de Phone Number LABORATORY [facility] [address] [place] [address] * (ABNORMAL) IRON SCREEN, INCLUDING TIBC (09/04/2023 10:28 AM EST) Iron 259(H) 33 - 151 ug/dL 09/05/2023 11:20 AM EST LABORATORY [facility] Iron Binding Capacity 355 250 - 425 ug/dL 09/05/2023 11:20 AM EST LABORATORY [facility] Transferrin Saturation Percent 73(H) 15 - 55 % 09/05/2023 11:20 AM EST LABORATORY [facility] Blood Venous blood specimen / Unknown Venipuncture / Unknown 09/04/2023 10:28 AM EST 09/04/2023 10:28 AM EST Hunter Sheffield MD LAB BLOOD ORDERA BLES Performing Organization Address City/[facility]/ZIP Co de Phone Number LABORATORY C [address] [place] [address] documented in this encounter Visit Diagnoses Diagnosis Normochromic anemia- Primary Anemia, unspecified Normocytic anemia Anemia, unspecified 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 in this encounter Advance Directives Documents on File Type Date Recorded Patient Court Usher Expl anation POLST 10/15/2019 3:17 PM POLST POLST 03/05/2019 POLST FORM Advance Directives and Living Will 01/27/2013 LIVING WILL Advance Directives and Living Will 01/27/2013 LIVING WILL Power of Liquefier 01/27/2013 POWER OF A TTORNEY Power of Liquefier 01/27/2013 POWER OF A TTORNEY Healthcare Agents on File Name Relationship Healthcare Agent Relationship Communication Cydney Benito Other - (no specific identity) Second Alternate Health Care Agent Anyi More Adult Child Health Care Roberth r of Liquefier Care Teams Harbor Pilot Relationship Specialty Start Date End Date Rhys Humhprey MD [address] [place] [address] [place] [id number] PCP - General Family Medicine 06/09/21 documented as of this encounter
--- OUTSIDE RECORDS SUMMARY | 2023-10-29 06:23 | External Medical Summary ---
Author Name Unknown Address Unknown Organization K01:LABORATORY [facility] [place] [place] [address] Laboratory Report Ordering Provider Test Date Status TIERA GARCIA 09/14/2023 14:32:24 Final Observation Date Value Abnormality Reference (Units ) Status Retic, % (auto) 09/14/2023 14:32:24 3.48 Above high normal 0.80-1.90 (%) Final Reticulocytes, Absolute 09/14/2023 14:32:24 103.7 Above high normal 31.3-100.1 (K/uL) Final Reticulocyte fraction, immature 09/14/2023 14:32:24 24.7 Above high normal 2.5-20.6 (%) Final Reticulocyte HGB 09/14/2023 14:32:24 22.1 Below low normal 29.7-37.4 (pg) Final Performing Location LABORATORY [facility] - [address] [place] [address]
--- OUTSIDE RECORDS SUMMARY | 2023-10-29 06:23 | External Medical Summary | Summary of Care ---
Author Name Unknown Organization [facility] Address [address] [place] [address] Phone [phone] Care Team Providers Care Care Tech Name Role Phone Rhys Humphrey MD Primary Care Provide r Reason for Visit * Reason Onset Date Comments [facility]: Maintenance 09/08/2023 Encounter Details Date Type Department Care Team (Late st Contact Info) Description 09/08/2023 1:00 PM EST Scheduled Telephone [facility], [facility] [address] [place] [address] [facility], Nurse [facility] [address] [place] [address] Allergies Active Allergy Reactions Criticality Noted Date [...] before bedtime. 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 [facility] Telephonic Nurse Follow-Up Call [facility] Subprogram: Focused Care Management (3-9 months) Follow Up Call Type: Weekend Call Acute issue requiring follow-up call: Remote Patient Monitoring Trigger Objective: 08/22/2023 2:25 PM 08/21/2023 1:11 PM [...] 07/12/2023 Remote Patient Monitoring: Oxygen Needs: NO CHANGE from baseline supplemental oxygen needs DME Needs: NO DME needs identified Medications: No medication or dose adjustments made during acute episode Subjective: Condition Status: [facility] Current Concerns: UTC, weight down 2.6 lbs from yesterday Disposition: Issue resolved. All appropriate follow up scheduled. Future Visits Scheduled: Future Appointments-next 60 days Date/Time Provider Specialty Dept Phone 09/10/2023 11:45 AM PET1 MOBILE OJO CALIENTE Radiology [phone] 09/14/2023 3:15 PM (Arrive by 3:00 PM) Martínez Lopes MD Hematology Oncology [phone] 09/21/2023 2:30 PM Sraah Vitale RN [facility] [phone] 09/27/2023 11:15 AM Lovely Bravo RDN [facility] [phone] 09/28/2023 2:30 PM Sarah Vitale RN [facility] [phone] 10/03/2023 10:30 AM (Arrive by 10:15 AM) Sosa Freeman CRNP Sleep Disorders [phone] 10/16/2023 11:30 AM (Arrive by 11:15 AM) Lizzette Silva CRNP Gastroenterology [phone] 12/10/2023 9:20 AM (Arrive by 9:05 AM) Rhys Humphrey MD Family Medicine [phone] 12/27/2023 11:00 AM (Arrive by 10:45 AM) Mi Neil PA-C Cardiology [phone] 03/18/2024 9:00 AM Stanton Nurse Annual Well[facility] Ancillary [phone] Lexy Tucker, RN * Telephone Encounter - Cammy Peres LPN - 09/08/2023 12:55 PM EST Images from the original note were not included. [facility] Remote Patient Monitoring Able to contact patient: Trigger type: 150 Abnormal reading(s): AMC (Advanced Monitored Caregiving): Scale: Trigger weight: 150 lbs; weight increased 4 lbs in 6 day(s) Patient takes diuretic medication: Yes, reviewed current diuretic use: Name of medication: Lasix Dose: 40 mg Frequency: daily Symptom review: Abdominal Fullness: 2 Diet Reviewed: Yes. Patient has had any foods high in sodium: No Fluid Intake Reviewed: Yes. Patient is on a fluid restriction: Yes, restriction amount in milliliters or liters: 2L Adherent to restriction: Yes Self-Management Plan Reviewed: Risk assignment recommendation: Moderate risk findings (check as applicable): [] Moderate trigger priority on [facility] [] Confirmed tympanic equivalent temperature 100.4-101.9 F [...] as applicable): [] High trigger priority on [facility] [] Confirmed tympanic equivalent temperature greater than [...] 90 WITH symptoms Additional risk selection justification: lm REQUESTING RETURN CALL Overall risk and identified plan: High risk: Next day follow up call scheduled Route to RNCM (Registered Nurse Diesel Truck Crane Operator) and Advance Practitioner documented in this encounter Plan of Treatment Upcoming Encounters Date Type Department Care Team (Late st Contact Info) Description 09/14/2023 2:40 PM EST Laboratory Laboratory [facility] [address] [place] [phone] [facility] [address] [place] [address] 09/14/2023 3:15 PM EST Office Visit Hematology/Oncology [facility] [place] [address] [place] [address] Martínez Lopes MD [address] [place] [address] 09/21/2023 2:30 PM EST Home Visit [facility], [facility] [address] [place] [address] Sarah Vitale, RN [address] [place] [address] 09/27/2023 11:15 AM EST Nutrition Services [facility], [facility] [address] [facility] [place] [address] Lovely Bravo RDN [address] [facility] [place] [address] 09/28/2023 2:30 PM EST Home Visit [facility], [facility] [address] [place] [address] Sarah Vitale, RN [address] [place] [address] 10/03/2023 10:30 AM EST Office Visit Sleep Disorders Ctr [facility] [address] [place] [phone] Sosa Freeman CRNP [address] [place] [address] 10/16/2023 11:30 AM EST Office Visit Gastroenterology, [facility] [address] [place] [address] Lizzette Silva CRNP [address] [place] [address] 12/10/2023 9:20 AM EDT Office Visit Family Medicine [address] [place] [phone] Rhys Humphrey MD [address] [place] [address] [place] [address] 12/27/2023 11:00 AM EDT Office Visit Cardiology [address] [place] [address] Mi Neil, CECI [address] [place] [address] 03/18/2024 9:00 AM EDT Nurse Only Ancillary [address] [place] [address] [place], Nurse Annual Wellness [address] [place] [address] [place] [address] Scheduled Procedures Name Priority Associated Diagnoses Date/Ti [...] D LEVEL ONCE IN A LIFETIME-USE SMARTSET# 15209 Completed 06/29/2020, 03/16/2015 Pneumococcal Vaccine: 65+ Years [...] Documents on File Type Date Recorded Patient Cable Television Technician Expl anation POLST 10/15/2019 3:17 PM POLST POLST 03/05/2019 POLST FORM Advance Directives and Living Will 01/27/2013 LIVING WILL Advance Directives and Living Will 01/27/2013 LIVING WILL Power of Drafting Engineer 01/27/2013 POWER OF A TTORNEY Power of Drafting Engineer 01/27/2013 POWER OF A TTORNEY Healthcare Agents on File Name Relationship Healthcare Agent Relationship Communication Cydney Benito Other - (no specific identity) Second Alternate Health Care Agent Anyi More Adult Child Health Care Roberth r of Drafting Engineer Care Teams Care Tech Relationship Specialty Start Date End Date Rhys Humphrey MD [address] [place] [address] [place] [phone] PCP - General Family Medicine 06/09/21 documented as of this encounter
--- OUTSIDE RECORDS SUMMARY | 2023-10-29 06:23 | External Medical Summary | Summary of Care ---
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 50 Cap 0 01/18/2021 Active Hixlprs-Kuozmuaxi-Zf nc 333-133-5 MG Oral Tablet Take 1 [...] diastolic congestive heart failure ([facility]) One tablet daily with an extra [...] classification ([facility]) Inhale 1 Puff by mouth in the morning. In addition to anoro. 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) Inhale 1 Puff by mouth in [...] as of this encounter (statuses as of 09/14/2023) Active Problems Problem Noted Date Diagnosed Date [...] as of this encounter (statuses as of 09/14/2023) Resolved Problems Problem Noted Date Diagnosed Date [...] as of this encounter (statuses as of 09/14/2023) Immunizations Name Administration Dates Next Due COVID-19 mRNA, LNP-s, No Pre serve, 2-Dose Series ([employer]) 07/11/2021,11/14/2020,10/24/2020 Covid-19, Mrna, Lnp-s, Pf, B ivalent, 30 Mcg, IM, 12 yrs and above (Pfizer) 07/21/2022 Pneumococcal Conjugate Vacc, 13 Valent (Prevnar) 03/16/2015 Pneumococcal Conjugate Vacci ne, 20-valent ([id number]) 07/21/2022 Pneumococcal Polysaccharide PPV23 (Pneumovax) 03/05/2019,07/18/2007 Season [...] Sign Reading Time Taken Comments Blood Pressure 108/57 09/14/2023 2:41 PM EST Pulse 100 09/14/2023 2:41 PM EST Temperature 37 C (98.6 F) 09/14/2023 2:41 PM EST Respiratory Rate 16 09/14/2023 2:41 PM EST Oxygen Saturation 89% 09/14/2023 2:41 PM EST Inhaled Oxygen Concentration - - Weight 68.9 kg (151 lb 14.4 oz) 09/14/2023 2:41 PM EST Height 152.4 cm (5') 09/14/2023 2:41 PM EST Body Mass Index 29.67 09/14/2023 2:41 PM EST documented in this encounter Progress Notes * Martínez Lopes MD - 09/14/2023 3:15 PM EST Images from the original note were not included. Hematology/Oncology Outpatient Clinic note [address] [place] [address] Name: Keisha Linares Date: 07/03/2023 CHIEF COMPLAINT: Keisha Linares is a 82 year old female here today for f/u visit today. 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 Cancer Staging At least stage III disease DATE OF DIAGNOSIS: 2012 TREATMENT HISTORY: Monoferric 06/16/21 CURRENT TREATMENT: Observation for lymphoma Ferrous sulfate 325 mg daily For neuroendocrine carcinoma, planning for combination of carboplatin, etoposide and atezolizumab every 3 weekly. She is at high risk for febrile neutropenia, she will receive prophylactic Pegfilgrastim following chemotherapy treatment. Currently she is on nasal cannula supplemental oxygen at 3 liters/minute. ONCOLOGY HISTORY: Regarding lymphoma, she has remained [...] the mesenteric mass done on 10/17/2013 at [facility] -->Low grade follicular lymphoma, grade 1/grade 2, could not be tested for t(14 ;18) because of hypocellular specimen. - clinical Analisa Arber staging --> stage III disease. No bone marrow bx in her case. Colonoscopy 09/11/21 HISTORY OF PRESENT ILLNESS: She has come the clinic for the follow-up, accompanied by her daughter in the office, she is ambulating with the help of the walker, currently she is on oxygen treatment at 2 liters/minute, recently she was admitted following bronchoscopy for pneumonia at [facility], reviewed the h ospital records. She does complain of cough, no hemoptysis at this time, when she would hemoptysis, Plavix and aspirin was on hold, she has not on any anticoagulant treatment, no leg edema at this time, fair appetite, current weight around 151 lb. Ambulates slowly with the help of the walker. No increasing headache. No focal neurological symptoms. Feeling slightly weak and tired, she does have a tingling and numbness of extremity, she is on Neurontin. Past Medical History: Diagnosis Date Acute cystitis [...] Date BREAST LESION,OTHER,EXCISION 1994 Breast Lesion Excise BRONCHOSCOPY, DX W/ EBUS, 1-2 NODES N/A 08/10/2023 BRONCHOSCOPY, RIGID/FLEXIBLE, INCLUDE FLUORO GUIDANCE, WHEN PERFORMED; W/ EBUS GUIDED TRANSTRACH AND/OR TRANSBRONCH SAMPLING, 1 OR 2 MEDIASTINAL AND/OR HILAR LYMPH NODE STATIONS/STRUCTURES performed by Surjit Fernandez MD at OR [facility] CERV;VAG CANCER SCREEN;PEL & B 03/2000 COLONOSCOPY 03/03/2013 diverticulosis, polyps, internal hemorrhoids COLONOSCOPY, DIAGNOSTIC (RECTUM) 07/31/2017 diverticulosis/[facility] COLONOSCOPY, DIAGNOSTIC (RECTUM) 09/09/2021 diverticulosis / [facility] COLORECTAL CANCER SCREEN; NOT AT RISK 11/[address] ABDOMEN/PELVIS 04/02/2013 mesenteric lymphadenopathy concerning for lymphoma DIGITAL RECTAL EXAM,ANNUAL 03/2000 EGD, FLEXIBLE, DIAGNOSTIC 03/03/2013 mild gastritis EGD, FLEXIBLE, DIAGNOSTIC 07/31/2017 normal bx, hiatal hernia/[facility] EGD, FLEXIBLE, DIAGNOSTIC 10/14/2021 reflux esophagitis, hiatal hernia / [facility] EGD, FLEXIBLE, DIAGNOSTIC 09/09/2021 hiatal hernia / [facility] HEMORRHOIDECTOMY, SIMPLE, 1 COLUMN 1989 Hemorrhoidectomy,Int/Ext,Simple INFORMATION L carotid endarterectomy. INFORMATION 07/26/2023 L TCAR. 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 1 Each0 Nebulizers (NEBULIZER COMPRESSOR) [facility] Inhale via nebulizer. Use as directed. 1 Each 1 Iron 325 (65 Fe) MG Oral Tablet Take 1 Tablet by mouth daily. Cranberry 500 MG Oral Capsule Take 1 Capsule by mouth in the morning and 1 Capsule before bedtime. 50 Cap Hihcwdv-Uikoavywh-Ipdt 333-133-5 MG Oral Tablet Take 1 Tablet by mouth daily. Aspirin 81 MG Oral Tablet Chewable Take [...] Sunday and Sunday only. 42.5 g 1 Furosemide 40 MG Oral Tablet (Lasix) [...] 2 times a day as needed for Heartburn.(Patient taking differently: Take 1 Tablet by mouth in the morning and 1 Tablet before bedtime.) 180 Tablet 1 Losartan Potassium 50 MG Oral Tablet (Cozaar) Take 1 Tablet by mouth daily. 180 Tablet 1 Gabapentin 300 MG Oral Capsule (Neurontin) TAKE THREE CAPSULES AT BEDTIME 90 Capsule 3 Clobetasol Propionate 0.05 % External Cream (Temovate) Apply to area twice daily x 1 month , then nightly x 2 months, then twice weekly x 3 months 60 g 1 Benzonatate 100 MG Oral Capsule Take 1 Capsule by mouth 3 times a day as needed for Cough. 30 Capsule 0 HYDROcodone Bit-Homatrop MBr 5-1.5 MG/5ML Oral Solution (Hydromet) Take 5 mL by mouth every 6 hoursas needed for Cough. Fluticasone Furoate 100 MCG/ACT Inhalation Aerosol Powder Breath Activated (ARNUITY ellipta) Inhale1 Puff by mouth in the morning. In addition to anoro. 30 Each 11 Anoro Ellipta 62.5-25 MCG/ACT Inhalation Aerosol Powder Breath Activated (umeclidinium-vilanterol) Inhale 1 Puff by mouth in the morning. 30 Each 11 No current facility-administered medications for this visit. REVIEW OF SYSTEMS: See HPI - otherwise negative OBJECTIVE: BP 108/57 (BP Site: Left Arm, BP Position: Sitting, BP Cuff Size: Regular) | Pulse 100 | Temp 37 C (98.6 F) (Tympanic) | Resp 16 | Ht 1.524 m (5') | Wt 68.9 kg (151 lb 14.4 oz) | SpO2 89% | BMI 29.67 kg/m | BSA 1.71 m PHYSICAL EXAM: ECOG: Performance Status 0 = [...] masses Neurologic: Normal - Grossly intact LABS: Blood workup done on 09/04/2023: - WBC 7500, H&H of 7.2/25.8, platelet count of 490,000 - BUN/Creat: 15/0.9, calcium 8.7. CT scan of the chest, abdomen and pelvis on 07/11/2023: - 8 mm nodule in the left upper lobe - Precarinal lymph node increase in size from 1.1 x 1.9 cm --> 3 x 3.7 cm - Right hilar lymph node increased from 0.8 x 1.3 cm --> 1.5 x 1.8 cm - New left hilar lymph node measuring 2.1 x 2.2 cm - Posterior mediastinum measuring 1.1 x 2.3 cm - 7 mm right anterior chest wall nodule - Liver cysts - Enlarged retroperitoneal and mesentric lymph jeanine, left parietal lymph node measuring 1.5 x 2.3 cm (previously it was 0.7 x 1.5 cm in November 2014 PET-CT scan). Bronchoscopic evaluation (08/10/2023) Biopsy from left lower lobe --> Small cell new endocrine carcinoma, - Biopsy from 10 R, 4R --> Small cell neuroendocrine carcinoma - PET-CT scan done on 09/10/2023: 1. Metabolically active left hilar mass is consistent with known malignancy. 2. Additional hypermetabolic left upper lobe pulmonary nodule may reflect metastasis or an additional site of malignancy. 3. Metabolically active mediastinal and retroperitoneal lymphadenopathy, consistent with metastases. Lymphomatous involvement of the retroperitoneal nodes is possible, given history, but is felt lesslikely. IMPRESSION/PLAN: Follicular lymphoma, grade 1/ grade 2 [...] year, approximately 25 pounds. Has recently stabilized. 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 Main treatment would be in the form of systemic chemotherapy, reviewed with them regarding the treatment schedule with carboplatin, etoposide and the immunotherapy with atezolizumab, she is in agreement for that Her hemoglobin level has remained on lower side, she may need blood transfusion support. Currently she is on oxygen treatment at 3 liters/minute. Chemotherapy schedule as follows: Carboplatin AUC 4 on day 1 -etoposide 80 mg/m daily for 3 days -atezolizumab 1200 mg on day 1 Repeating every 4 weeks. -she is at high risk for febrile neutropenia, she will receive prophylactic Pegfilgrastim. E-prescribed Compazine Zofran for the symptomatic treatment nausea and vomiting. E-prescribed allopurinol 100 mg once a day to prevent the tumor lysis syndrome. She should start allopurinol few days before the start of the chemotherapy. Chemotherapy teaching next week Once we start on treatment, will see her back in the clinic in about the 4 weeks before the next cycle. Dr. Martínez Lopes Hem/Onc (This note was completed using the dictation program Fluency Direct. As such, there may be misspellings word substitutions, or other variations that should not change the essence of the clinical content of this encounter note. If there is need for further clarification, please direct questions to the provider listed above.) documented in this encounter Nursing Notes * Isatu Grewal, UNIVERSITY COUNSELOR - 09/14/2023 2:41 PM EST Patient identifed by name and birthdate Do you have any concerns about pain management for today's visit? No Living Will or Advance Directive for Health Care as noted on the problem list. [facility] is a way you can talk to your provider on line through e-mail. Would you like to sign up? I can activate it for you? ALREADY ACTIVE Filed Vitals: 09/14/23 1441 BP: 108/57 Pulse: 100 Resp: 16 Temp: 37 C (98.6 F) TempSrc: Tympanic SpO2: 89% Weight: 68.9 kg (151 lb 14.4 oz) Height: 1.524 m (5') Patient was instructed to not get up on the exam table/exam chair until directed and assisted by their provider; patient is to remain seated in the chair/ wheelchair/ exam table/ exam chair for fall prevention and safety reasons. Patient is aware to have assistance to step down off exam table/exam chair with personnel. Patient voiced full comprehension of instructions. documented in this encounter Plan of Treatment Upcoming Encounters Date Type Department Care Team (Late st Contact Info) Description 09/17/2023 1:30 PM EST Nurse Only Hematology/Oncology [facility] [place] [address] [place] [address] [place], Nurse Hem Onc Scenery [address] [place] [address] 09/21/2023 2:30 PM EST [facility] Visit [facility], [facility] [address] [place] [address] Sarah Vitale, RN [address] [place] [address] 09/27/2023 11:15 AM EST Nutrition Services [facility], [facility] [address] [facility] [place] [address] Lovely Bravo, RDN [address] [place] [address] 09/28/2023 2:30 PM EST Home Visit [facility], [facility] [address] [place] [address] Sarah Vitale, RN [address] [place] [address] 10/03/2023 10:30 AM EST Office Visit Sleep Disorders Ctr [facility] [address] [place] [phone] Sosa Freeman CRNP [address] [place] [address] 10/16/2023 11:30 AM EST Office Visit Gastroenterology, [facility] [address] [place] [address] Lizzette Silva CRNP [address] [place] [address] 12/10/2023 9:20 AM EDT Office Visit Family Medicine [address] [place] [phone] Rhys Humphrey MD [address] [place] [address] [place] [address] 12/27/2023 11:00 AM EDT Office Visit Cardiology [address] [place] [address] Mi Neil PA-C [address] [place] [address] 03/18/2024 9:00 AM EDT Nurse Only Ancillary [address] [place] [address] [place], Nurse Annual Wellness [address] [place] [address] [place] [address] Scheduled Procedures Name Priority Associated Diagnoses Date/Ti [...] D LEVEL ONCE IN A LIFETIME-USE SMARTSET# [id number] Completed 06/29/2020, 03/16/2015 Pneumococcal Vaccine: 65+ Years [...] cell neuroendocrine carcinoma of lung (HCC)- Primary Metastasis to mediastinal lymph node (HCC) Secondary and unspecified malignant neoplasm of intrathoracic lymph nodes 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 documented in this encounter Advance Directives Documents on File Type Date Recorded Patient Tip Scourer Expl anation POLST 10/15/2019 3:17 PM POLST POLST 03/05/2019 POLST FORM Advance Directives and Living Will 01/27/2013 LIVING WILL Advance Directives and Living Will 01/27/2013 LIVING WILL Power of Bottling Machine Operator 01/27/2013 POWER OF A TTORNEY Power of Bottling Machine Operator 01/27/2013 POWER OF A TTORNEY Healthcare Agents on File Name Relationship Healthcare Agent Relationship Communication Cydney Benito Other - (no specific identity) Second Alternate Health Care Agent Anyi More Adult Child Health Care Roberth r of Bottling Machine Operator Care Teams Dialysis Nurse Relationship Specialty Start Date End Date Rhys Humphrey MD [address] [place] [address] [place] [phone] PCP - General Family Medicine 06/09/21 documented as of this encounter
--- OUTSIDE RECORDS SUMMARY | 2023-10-29 06:23 | External Medical Summary | Summary of Care ---
Author Name Unknown Organization [facility] Address [address] [place] [address] Phone [phone] Care Team Providers Care Maintenance Helper Name Role Phone Rhys Humphrey MD Primary Care Provide r Reason for Visit * Reason Comments Outpatient Testing Encounter Details Date Type Department Care Team (Late st Contact Info) Description 09/14/2023 2:40 PM EST Laboratory Laboratory Scenery [facility] [place] [address] [place] [phone] [facility] Lab Scenery [address] [place] [address] Normocytic anemia; Normochromic anemia; Small cell neuroendocrine carcinoma of lung [...] before bedtime. 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),COPD, group D, by GOLD [...] mRNA, LNP-s, No Pre serve, 2-Dose Series ([employer]) 07/11/2021,11/14/2020,10/24/2020 Covid-19, Mrna, Lnp-s, Pf, B ivalent, 30 Mcg, IM, 12 yrs and above ([employer]) 07/21/2022 Pneumococcal Conjugate Vacc, 13 Valent (Prevnar) 03/16/2015 Pneumococcal Conjugate Vacci ne, 20-valent ([id number]) 07/21/2022 Pneumococcal Polysaccharide PPV23 (Pneumovax) 03/05/2019,07/18/2007 Season [...] Team (Late st Contact Info) Description 09/14/2023 3:15 PM EST Office Visit Hematology/Oncology Tano Chiu [place] [address] [facility] [place] [address] Martínez Lopes MD [address] [facility] [place] [address] 09/21/2023 2:30 PM EST Home Visit [facility], [facility] [address] [place] [address] Sarah Vitale, RAYNA [address] [place] [address] 09/27/2023 11:15 AM EST Nutrition Services [facility], [facility] [address] [facility] [place] [address] Lovely Bravo RDN [address] [facility] [place] [address] 09/28/2023 2:30 PM EST Home Visit [facility], [facility] [address] [place] [address] Sarah Vitale, RAYNA [address] [place] [address] 10/03/2023 10:30 AM EST Office Visit Sleep Disorders Ctr Mariella Kang [place] [address] [place] [place] [phone] Sosa Freeman CRNP [address] [place] [place] [address] 10/16/2023 11:30 AM EST Office Visit Gastroenterology, [facility] [address] [place] [place] [address] Lizzette Silva CRNP [address] [place] [address] 12/10/2023 9:20 AM EDT Office Visit Family Medicine [address] [place] [phone] Rhys Humphrey MD [address] [place] [address] [place] [address] 12/27/2023 11:00 AM EDT Office Visit Cardiology [address] [place] [address] Mi Neil, CECI [address] [place] [address] 03/18/2024 9:00 AM EDT Nurse Only Ancillary [address] [place] [address] Janinealley, Nurse [address] [place] [address] Pending Results Name Type Priority Associated Diagnoses Date /Time ERYTHROPOIETIN (EPO) Lab Routine Normocytic anemia 09/14/2023 2:31 PM EST IRON SCREEN, INCLUDING TIBC Lab Routine Normochromic anemia Normocytic anemia 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) 09/14/2023 2:31 PM EST FERRITIN Lab Routine Normochromic anemia Normocytic anemia 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) 09/14/2023 2:31 PM EST RETICULOCYTE PANEL Lab STAT Normocytic anemia 09/14/2023 2:32 PM EST Scheduled Procedures Name Priority Associated Diagnoses [...] D LEVEL ONCE IN A LIFETIME-USE SMARTSET# 90442 Completed 06/29/2020, 03/16/2015 Pneumococcal Vaccine: 65+ Years [...] Date/Time Associated Diagnosis Comments DIFFERENTIAL, AUTOMATED STAT 09/14/2023 2:31 PM EST Normochromic anemia Normocytic anemia 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0 - 11.0 % 09/14/2023 2:39 PM EST [facility] 56-02 Eosinophils % 6.8(H) 0.0 - 6.0 % 09/14/2023 2:39 PM EST [facility] 56-02 Basophils % 0.6 0.0 - 2.0 % 09/14/2023 2:39 PM EST [facility] 56-02 Absolute Neutrophils 4.60 1.80 - 7.70 K/uL 09/14/2023 2:39 PM EST [facility] 56-02 Absolute Lymphocytes 1.62 1.00 - 4.80 K/ul 09/14/2023 2:39 PM EST [facility] 56-02 Absolute Monocytes 0.91 0.00 - 1.10 K/uL 09/14/2023 2:39 PM EST [facility] 56-02 Absolute Eosinophils 0.52 0.00 - 0.70 K/uL 09/14/2023 2:39 PM EST [facility] 56-02 Absolute Basophils 0.05 0.00 - 0.20 K/uL 09/14/2023 2:39 PM EST [facility] 56-02 Blood Venous blood specimen / Unknown Venipuncture / Unknown 09/14/2023 2:31 PM EST 09/14/2023 2:31 PM EST Martínez Lopes MD LAB BLOOD ORDERABLES [facility] 56-02 200 [place] [address] * (ABNORMAL) CBC (09/14/2023 2:31 PM EST) WBC 7.70 4.00 - 10.80 K/uL 09/14/2023 2:39 PM EST [facility] 56 RBC 3.09 3.85 - 5.15 M/uL 09/14/2023 2:39 PM EST [facility] 56 HGB 7.5(L) 12.0 - 15.3 g/dL 09/14/2023 2:39 PM EST [facility] 56 HCT 26.8(L) 36.0 - 45.2 % 09/14/2023 2:39 PM EST [facility] 56 MCV 86.7 81.5 - 97.5 fL 09/14/2023 2:39 PM EST [address] MCH 24.3 27.0 - 34.0 pg 09/14/2023 2:39 PM EST [place] [address] MCHC 28.0 32.0 - 36.0 g/dL 09/14/2023 2:39 PM EST [address] RDW 13.7 11.5 - 15.5 % 09/14/2023 2:39 PM EST [facility] 56 PLT 359 140 - 400 K/uL 09/14/2023 2:39 PM EST [facility] 56 MPV 9.4 6.6 - 11.1 fL 09/14/2023 2:39 PM EST [facility] 56 Blood Venous blood specimen / Unknown Venipuncture / Unknown 09/14/2023 2:31 PM EST 09/14/2023 2:31 PM EST Martínez Lopes MD LAB BLOOD ORDERABLES [facility] 56 200 [facility] [address] documented in this encounter Visit Diagnoses Diagnosis Normocytic anemia Anemia, unspecified Normochromic anemia Anemia, unspecified 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 in this encounter Advance Directives Documents on File Type Date Recorded Patient Certified Ophthalmic Surgical Assistant Expl anation POLST 10/15/2019 3:17 PM POLST POLST 03/05/2019 POLST FORM Advance Directives and Living Will 01/27/2013 LIVING WILL Advance Directives and Living Will 01/27/2013 LIVING WILL Power of Client Support Manager 01/27/2013 POWER OF A TTORNEY Power of Client Support Manager 01/27/2013 POWER OF A TTORNEY Healthcare Agents on File Name Relationship Healthcare Agent Relationship Communication Cydney Benito Other - (no specific identity) Second Alternate Health Care Agent Anyi More Adult Child Health Care Roberth r of Client Support Manager Care Teams Maintenance Helper Relationship Specialty Start Date End Date Rhys Humphrey MD [address] [place] [address] [place] [address] PCP - General Family Medicine 06/09/21 documented as of this encounter
--- OUTSIDE RECORDS SUMMARY | 2023-10-29 06:23 | External Medical Summary | Summary of Care ---
Author Name Unknown Organization [facility] Address [address] [place] [address] Phone [phone] Care Team Providers Care Surgical Rn Name Role Phone Rhys Humphrey MD Primary Care Provide r Reason for Visit * Reason Onset Date Comments [facility]: Maintenance 09/07/2023 Encounter Details Date Type Department Care Team (Late st Contact Info) Description 09/07/2023 Telephone [facility], [place] [facility] [address] [facility] [place] [address] [facility], Nurse [facility] [address] [facility] [place] [address] [facility]: Maintenance Allergies Active Allergy Reactions Criticality Noted Date Comments Adhesive Tape Other (Please comment),Hives High 09/29/2008 Caused welts Dextromethorphan-Gu aifenesin Neuro complications (Please comment) Medium 12/23/2021 Feels lightheaded/"foggy" documented as of this encounter (statuses as of 09/07/2023) Medications Medication Sig Dispensed Refills Start Date [...] before bedtime. 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 30 Each 08/20/2023 Active documented as of this encounter (statuses as of 09/07/2023) Active Problems Problem Noted Date Diagnosed Date [...] as of this encounter (statuses as of 09/07/2023) Resolved Problems Problem Noted Date Diagnosed Date [...] as of this encounter (statuses as of 09/07/2023) Immunizations Name Administration Dates Next Due COVID-19 mRNA, LNP-s, No Pre serve, 2-Dose Series ([employer]) 07/11/2021,11/14/2020,10/24/2020 Covid-19, Mrna, Lnp-s, Pf, B ivalent, 30 Mcg, IM, 12 yrs and above ([employer]) 07/21/2022 Pneumococcal Conjugate Vacc, 13 Valent (Prevnar) 03/16/2015 Pneumococcal Conjugate Vacci ne, 20-valent ([id number]) 07/21/2022 Pneumococcal Polysaccharide PPV23 (Pneumovax) 03/05/2019,07/18/2007 SEASONAL [...] encounter Miscellaneous Notes * Telephone Encounter - Mariel Welch LPN - 09/07/2023 11:30 AM EST Images from the original note were not included. [facility] Remote Patient Monitoring Unable to contact patient: Trigger type: Abnormal reading(s): Device(s) Triggered: AMC (Advanced Monitored Caregiving): Scale: Trigger weight: 152.6 lbs; weight increased 6 lbs in 5 day(s) Plan: Follow up call scheduled Call placed to patient regarding weight gain on AMC Left message on home number for return call to [facility] Will add for FC call tomorrow documented in this encounter Plan of Treatment Upcoming Encounters Date Type Department Care Team (Late st Contact Info) Description 09/08/2023 1:00 PM EST Scheduled Telephone [facility], [facility] [address] [place] [address] [facility], Nurse [facility] [address] [place] [address] 09/10/2023 11:45 AM EST Imaging Radiology, [place] [place] [id number] 09/14/2023 3:15 PM EST Office Visit Hematology/Oncology Tano Chiu [place] [address] [facility] [place] [address] Martínez Lopes MD [address] [place] [address] 09/21/2023 2:30 PM EST Home Visit [facility], [facility] [address] [place] [address] Sarah Vitale RN [address] [place] [address] 09/27/2023 11:15 AM EST Nutrition Services [facility], [facility] [address] [place] [address] Lawrence Lovely Shilpa, RDN [address] [place] [address] 09/28/2023 2:30 PM EST Home Visit [facility], [facility] [address] [place] [address] Sarah Vitale RN [address] [place] [address] 10/03/2023 10:30 AM EST Office Visit Sleep Disorders Ctr [facility] [address] [place] [phone] Sosa Freeman CRNP [address] [place] [address] 10/16/2023 11:30 AM EST Office Visit Gastroenterology, [facility] [address] [place] [address] Lizzette Silva CRNP [address] [place] [address] 12/10/2023 9:20 AM EDT Office Visit Family Medicine [address] [place] [phone] Rhys Humphrey MD [address] [place] [address] [place] [address] 12/27/2023 11:00 AM EDT Office Visit Cardiology [address] [place] [address] Mi Neil PA-C [address] [place] [address] 03/18/2024 9:00 AM EDT Nurse Only Ancillary [address] [place] [address] [place], Nurse Annual [address] [place] [address] Scheduled Procedures Name Priority Associated Diagnoses Date/Ti [...] D LEVEL ONCE IN A LIFETIME-USE SMARTSET# 38419 Completed 06/29/2020, 03/16/2015 Pneumococcal Vaccine: 65+ Years [...] Documents on File Type Date Recorded Patient Settlement Clerk Expl anation POLST 10/15/2019 3:17 PM POLST POLST 03/05/2019 POLST FORM Advance Directives and Living Will 01/27/2013 LIVING WILL Advance Directives and Living Will 01/27/2013 LIVING WILL Power of Adoption Social Worker 01/27/2013 POWER OF A TTORNEY Power of Adoption Social Worker 01/27/2013 POWER OF A TTORNEY Healthcare Agents on File Name Relationship Healthcare Agent Relationship Communication Cydney Benito Other - (no specific identity) Second Alternate Health Care Agent Anyi More Adult Child Health Care Roberth r of Adoption Social Worker Care Teams Surgical Rn Relationship Specialty Start Date End Date Rhys Humphrey MD [address] [place] [address] [place] [phone] PCP - General Family Medicine 06/09/21 documented as of this encounter
--- OUTSIDE RECORDS SUMMARY | 2023-10-29 06:23 | External Medical Summary ---
Author Name Unknown Address Unknown Organization [id number]:[facility] [place] [address] Laboratory Report Ordering Provider Test Date Status TIERA GARCIA 09/14/2023 14:31:58 Final Observation Date Value Abnormality Reference (Units ) Status SYNC LEUKOCYTES IN BLOOD BY AUTOMATED COUNT 09/14/2023 14:31:58 7.70 4.00-10.80 (K/uL) Final Segs 09/14/2023 14:31:58 59.8 40.0-75.0 (%) Final Lymphs % 09/14/2023 14:31:58 21.0 18.0-42.0 (%) Final Monos 09/14/2023 14:31:58 11.8 Above high normal 1.0-11.0 (%) Final Eosinophils 09/14/2023 14:31:58 6.8 Above high normal 0.0-6.0 (%) Final Basos 09/14/2023 14:31:58 0.6 0.0-2.0 (%) Final Absolute Segs 09/14/2023 14:31:58 4.60 1.80-7.70 (K/uL) Final Lymphs, absolute 09/14/2023 14:31:58 1.62 1.00-4.80 (K/ul) Final Monos, Abs 09/14/2023 14:31:58 0.91 0.00-1.10 (K/uL) Final Eos, Abs 09/14/2023 14:31:58 0.52 0.00-0.70 (K/uL) Final Basos, Abs 09/14/2023 14:31:58 0.05 0.00-0.20 (K/uL) Final Performing Location [facility] [place] [address]
--- OUTSIDE RECORDS SUMMARY | 2023-10-29 06:23 | External Medical Summary ---
Author Name Unknown Address Unknown Organization K01:[facility] - [address] [place] [address] Laboratory Report Ordering Provider Test Date Status TIERA GARCIA 09/14/2023 14:31:58 Final Observation Date Value Abnormality Reference (Units ) Status Iron 09/14/2023 14:31:58 111 33-151 (ug /dL) Final Iron-binding capacity 09/14/2023 14:31:58 378 250-425 (ug/dL) Final Transferrin Sat % 09/14/2023 14:31:58 29 15 -55 (%) Final Performing Location [facility] - [address] [place] [address]
--- OUTSIDE RECORDS SUMMARY | 2023-10-29 06:23 | External Medical Summary | Summary of Care ---
Author Name Unknown Organization [facility] Address [address] [place] [address] Phone [phone] Care Team Providers Care Supervisor Home Energy Consultant Name Role Phone Rhys Humphrey MD Primary Care Provide r Reason for Visit * Reason Onset Date Comments [facility]: Maintenance 09/05/2023 Encounter Details Date Type Department Care Team (Latest Contact Info) Description 09/05/2023 9:00 AM EST Scheduled Telephone [facility], [facility] [address] [place] [address] Coordinator, [facility] [address] [place] [address] Normochromic anemia*; Normocytic anemia; Small cell neuroendocrine [...] before bedtime. 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 Pt requests that this anchorer call her dtr Anyi to tell her the information as well as the pt states that she does not always have a good memory. Outgoing call to pt's dtr Anyi and read the entire message from Dr Shefifeld to her. Anyi states that the pt [...] mental health appt today. Outgoing all to [facility]- they are currently processing the added on labs. Unsure at this time if EPO can be added on, if not the lab will reach out to Provider. Camila BAUMAN, RN [facility] Intake Triage Coordinator [phone] * Addendum Note - Hunter Sheffield MD [...] has had any overt signs of GI bleedingincluding bright red blood per rectum, melena, hematemesis or any other GI symptoms. I added on orders for additional testing. Please call lab and confirm they can be done without a redraw. Please confirm that she is taking Protonix 40 mg daily. Recommend holding aspirin and Plavix temporarily. (I see no evidence of recent [place] or stent) She may need a repeat [...] [facility] Telephonic Nurse Follow-Up Call [facility] Subprogram: Focused Care Management (3-9 months) Follow [...] EJECTION FRACTION 61 07/12/2023 Remote Patient Monitoring: [facility] Scale: [facility] Blood Pressure Cuff: Oxygen Needs: NO CHANGE [...] by Dr Kerr yesterday. Disposition: Routed to [facility] and/or [facility] Care Team for further advice FU call with Maximiliano Escalona RN tomorrow Future Visits Scheduled: Future Appointments-next 60 days Date/Time Provider Specialty Dept Phone 09/06/2023 11:00 AM Josephine Viera Nurse Triage [facility] [phone] 09/07/2023 10:30 AM (Arrive by 10:00 AM) MR2 [facility] Radiology [phone] 09/10/2023 11:45 AM PET Radiology [phone] 09/14/2023 3:15 PM (Arrive by 3:00 PM) Jose Lopes MD Hematology Oncology [phone] 09/17/2023 9:40 AM (Arrive by 9:25 AM) Marycruz Almazan PA-C Dermatology [phone] 09/21/2023 2:30 PM Sarah Vitale, RAYNA [facility] [phone] 09/27/2023 11:15 AM Lovely Bravo RDN [facility] [phone] 09/28/2023 2:30 PM Sarah Vitale, RAYNA [facility] [phone] 10/03/2023 10:30 AM (Arrive by 10:15 AM) Sosa Freeman CRNP Sleep Disorders [phone] 10/16/2023 11:30 AM (Arrive by 11:15 AM) Lizzette Silva CRNP Gastroenterology [phone] 12/10/2023 9:20 AM (Arrive by 9:05 AM) Rhys Humphrey MD Family Medicine [phone] 12/27/2023 11:00 AM (Arrive by 10:45 AM) Mi Neil PA-Hector Cardiology [phone] 03/18/2024 9:00 AM Stanton Nurse Annual Wellness Ancillary [phone] Camila Thakur RN documented in this encounter Plan of Treatment Upcoming Encounters Date Type Department Care Team (Late st Contact Info) Description 09/10/2023 11:45 AM EST Imaging Radiology, [facility] [address] [place] [address] 09/14/2023 3:15 PM EST Office Visit Hematology/Oncology [facility] 200 [facility] [place] [address] Jose Lopes MD 200 [facility] [place] [address] 09/21/2023 2:30 PM EST Home Visit [facility], [facility] 132 [facility] [place] [address] Sarah Vitale, RAYNA 132 [facility] [place] [address] 09/27/2023 11:15 AM EST Nutrition Services [facility], [facility] [address] [facility] [place] [address] Lovely Bravo, RDN [address] [facility] [place] [address] 09/28/2023 2:30 PM EST Home Visit [facility], [facility] 132 [facility] [place] [address] Sarah Vitale, RAYNA [address] [place] [address] 10/03/2023 10:30 AM EST Office Visit Sleep Disorders [facility] 132 [facility] [place] [phone] Sosa Freeman CRNP 132 [facility] [place] [address] 10/16/2023 11:30 AM EST Office Visit Gastroenterology, [facility] 132 [facility] [place] [address] Lizzette Silva CRNP 132 [facility] [place] [address] 12/10/2023 9:20 AM EDT Office Visit Family Medicine [address] [place] [address] Rhys Humphrey MD [address] [place] [address] [place] [address] 12/27/2023 11:00 AM EDT Office Visit Cardiology [address] [place] [address] Mi Neil PA-C 132 [facility] [place] [address] 03/18/2024 9:00 AM EDT Nurse Only Ancillary [address] [place] [address] [place], Nurse [address] [place] [address] Scheduled Orders Name Type Priority Associated Diagnoses [...] D LEVEL ONCE IN A LIFETIME-USE SMARTSET# [id number] Completed 06/29/2020, 03/16/2015 Pneumococcal Vaccine: 65+ Years [...] Hunter Sheffield MD LAB BLOOD ORDERA BLES [facility] [address] [place] [address] * VITAMIN B12 (09/04/2023 10:28 AM EST) Vitamin B12 1,000 232 - 1,245 pg/mL 09/05/2023 12:06 PM EST [facility] Blood Venous blood specimen / Unknown Venipuncture / Unknown 09/04/2023 10:28 AM EST 09/04/2023 10:28 AM EST Hunter Sheffield MD LAB BLOOD ORDERA BLES Performing Organization Address City/[facility]/ZIP Co de Phone Number [facility] [address] [place] [address] * (ABNORMAL) IRON SCREEN, INCLUDING TIBC (09/04/2023 [...] Hunter Sheffield MD LAB BLOOD ORDERA BLES [facility] [address] [facility] [place] [address] documented in this encounter Visit Diagnoses Diagnosis Normochromic anemia- Primary Anemia, unspecified Normocytic anemia Anemia, unspecified 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 in this encounter Advance Directives Documents on File Type Date Recorded Patient Technical Staff Assistant Expl anation POLST 10/15/2019 3:17 PM POLST POLST 03/05/2019 POLST FORM Advance Directives and Living Will 01/27/2013 LIVING WILL Advance Directives and Living Will 01/27/2013 LIVING WILL Power of Disability Liaison Officer 01/27/2013 POWER OF A TTORNEY Power of Disability Liaison Officer 01/27/2013 POWER OF A TTORNEY Healthcare Agents on File Name Relationship Healthcare Agent Relationship Communication Cydney Benito Other - (no specific identity) Second Alternate Health Care Agent Anyi More Adult Child Health Care Roberth r of Disability Liaison Officer Care Teams Supervisor Home Energy Consultant Relationship Specialty Start Date End Date Rhys Humphrey MD [address] [place] [address] [place] [phone] PCP - General Family Medicine 06/09/21 documented as of this encounter
--- OUTSIDE RECORDS SUMMARY | 2023-10-29 06:23 | External Medical Summary ---
Author Name Unknown Address Unknown Organization : Laboratory Report Ordering Provider Test Date Status ANN HARRISON 09/14/2023 14:31:58 Final Observation Date Value Abnormality Reference (Units ) Status ERYTHROPOIETIN (EPO) 09/14/2023 14:31:58 132.6 Above high normal 2.6-18.5 (mIU/mL) Final
Test Performed at:
[facility]
[address] [place] [address]
Pa Prather M.D., Ph.D.,Director of Laboratories Performing Location
--- OUTSIDE RECORDS SUMMARY | 2023-10-29 06:23 | External Medical Summary ---
Author Name Unknown Address Unknown Organization K09:[facility] [place] [address] Laboratory Report Ordering Provider Test Date Status TIERA GARCIA 09/14/2023 14:31:58 Final Observation Date Value Abnormality Reference (Units ) Status WBC, Total 09/14/2023 14:31:58 7.70 4.00-10.8 0 (K/uL) Final RBC 09/14/2023 14:31:58 3.09 3.85-5.15 (M/uL) Final Hemoglobin 09/14/2023 14:31:58 7.5 Below low normal 12 .0-15.3 (g/dL) Final HCT 09/14/2023 14:31:58 26.8 Below low normal 36. 0-45.2 (%) Final MCV 09/14/2023 14:31:58 86.7 81.5-97.5 (fL) Final MCH 09/14/2023 14:31:58 24.3 27.0-34.0 (pg) Final MCHC 09/14/2023 14:31:58 28.0 32.0-36.0 (g/dL) Final RDW 09/14/2023 14:31:58 13.7 11.5-15.5 (%) Final Platelets 09/14/2023 14:31:58 359 140-400 (K /uL) Final MPV 09/14/2023 14:31:58 9.4 6.6-11.1 ( fL) Final Performing Location [facility] [place] [address]
--- OUTSIDE RECORDS SUMMARY | 2023-10-29 06:23 | External Medical Summary | Summary of Care ---
Author Name Unknown Organization [facility] Address [address] [place] [address] Phone [phone] Care Team Providers Care Pet Supplies Salesperson Name Role Phone Rhys Humphrey MD Primary Care Provide r Reason for Visit * Reason Onset Date Comments [facility]: Maintenance 09/05/2023 Encounter Details Date Type Department Care Team (Latest Contact Info) Description 09/05/2023 9:00 AM EST Scheduled Telephone [facility], [facility] [address] [place] [address] Coordinator, [facility] [address] [place] [address] Normochromic anemia*; Normocytic anemia; Small cell neuroendocrine [...] before bedtime. 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 Pt requests that this cooker sulfate call her dtr Anyi to tell her [...] mental health appt today. Outgoing all to [facility] lab- they are currently processing the added on labs. Unsure at this time if EPO can be added on, if not the lab will reach out to Provider. Camila BAUMAN, RN [facility] Intake Triage Coordinator [phone] * Addendum Note - Hunter Sheffield MD [...] temporarily. (I see no evidence of recent MO or stent) She may need a repeat [...] [facility] Telephonic Nurse Follow-Up Call [facility] Subprogram: Focused Care Management (3-9 months) Follow [...] EJECTION FRACTION 61 07/12/2023 Remote Patient Monitoring: [facility] Scale: [facility] Blood Pressure Cuff: Oxygen Needs: NO CHANGE [...] supplement for the pt to take at . Notified the pt that her Mag and BMP results were normal. Advised that her H/H are low- she states that she does have a hx of anemia and has had blood transfusions in the past. Pt's BP is WNL today. Will send to Provider to inquire about Magnesium supplement for HS as advised by Dr Kerr yesterday. Disposition: Routed [place] [facility] and[facility]or [facility] at Home Care Team for further advice FU call with Maximiliano Escalona RN tomorrow Future Visits Scheduled: Future Appointments-next 60 days Date/Time Provider Specialty Dept Phone 09/06/2023 11:00 AM Josephine Viera Nurse Triage [facility] at Home [phone] 09/07/2023 10:30 AM (Arrive by 10:00 AM) MR2 СЕРГЕЙ SALAS Radiology [phone] 09/10/2023 11:45 AM PET Radiology [phone] 09/14/2023 3:15 PM (Arrive by 3:00 PM) Jose Lopes MD Hematology Oncology [phone] 09/17/2023 9:40 AM (Arrive by 9:25 AM) Marycruz Almazan PA-C Dermatology [phone] 09/21/2023 2:30 PM Sarah Vitale, RN [facility] [phone] 09/27/2023 11:15 AM Lovely Bravo RDN [facility] [phone] 09/28/2023 2:30 PM Sarah Vitale, RN [facility] [phone] 10/03/2023 10:30 AM (Arrive by 10:15 AM) Sosa Freeman CRNP Sleep Disorders [phone] 10/16/2023 11:30 AM (Arrive by 11:15 AM) Lizzette Silva CRNP Gastroenterology [phone] 12/10/2023 9:20 AM (Arrive by 9:05 AM) Rhys Humphrey MD Family Medicine [phone] 12/27/2023 11:00 AM (Arrive by 10:45 AM) Mi Neil PA-C Cardiology [phone] 03/18/2024 9:00 AM Nurse [facility] Ancillary [phone] Camila Thakur, RN documented in this encounter Plan of Treatment Upcoming Encounters Date Type Department Care Team (Late st Contact Info) Description 09/14/2023 3:15 PM EST Office Visit Hematology/Oncology [facility] Ar[facility] Christensen [address] [place] [address] oJse Lopes MD 200 [facility] [place] [address] 09/21/2023 2:30 PM EST [facility] Visit [facility] [place], [address] [place] [address] Sarah Vitale, RN [address] [place] [address] 09/27/2023 11:15 AM EST Nutrition Services [facility], [facility] [address] [facility] [place] [address] Lovely Bravo, SHAKIRN [address] [facility] [place] [address] 09/28/2023 2:30 PM EST Home Visit [facility], [facility] [place] [address] Sarah Vitale, RAYNA 132 [facility] [place] [address] 10/03/2023 10:30 AM EST Office Visit Sleep Disorders Ctr [facility] 132 [facility] [place] [phone] Sosa Freeman CRNP [address] [place] [address] 10/16/2023 11:30 AM EST Office Visit Gastroenterology, [facility] [address] [facility] [place] [address] Lizzette Silva CRNP [address] [place] [address] 12/10/2023 9:20 AM EDT Office Visit Family Medicine [address] [place] [phone] Rhys Humphery MD [address] [place] [address] [place] [address] 12/27/2023 11:00 AM EDT Office Visit Cardiology [address] [place] [address] Mi Neil PA-C [address] [place] [address] 03/18/2024 9:00 AM EDT Nurse Only Ancillary [address] [place] [address] [place], Nurse [address] [place] [address] Scheduled Orders Name Type Priority Associated Diagnoses [...] D LEVEL ONCE IN A LIFETIME-USE SMARTSET# [id number] Completed 06/29/2020, 03/16/2015 Pneumococcal Vaccine: 65+ Years [...] >4.5 ng/mL 09/05/2023 12:06 PM EST [facility] Blood Venous blood specimen / Unknown Venipuncture / Unknown 09/04/2023 10:28 AM EST 09/04/2023 10:28 AM EST Hunter Sheffield MD LAB BLOOD ORDERA BLES [facility] [address] [place] [address] * VITAMIN B12 (09/04/2023 10:28 AM EST) Vitamin B12 1,000 232 - 1,245 pg/mL 09/05/2023 12:06 PM EST [facility] Blood Venous blood specimen / Unknown Venipuncture / Unknown 09/04/2023 10:28 AM EST 09/04/2023 10:28 AM EST Hunter Sheffield MD LAB BLOOD ORDERA BLES Performing Organization Address City/[facility]/ZIP Co de Phone Number [facility] [address] [place] [address] * (ABNORMAL) IRON SCREEN, INCLUDING TIBC (09/04/2023 [...] LAB BLOOD ORDERA BLES Performing Organization Address City/[facility] Co de Phone Number [facility] [address] [place] [address] documented in this encounter Visit Diagnoses Diagnosis Normochromic anemia- Primary Anemia, unspecified Normocytic anemia Anemia, unspecified 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 in this encounter Advance Directives Documents on File Type Date Recorded Patient School Psychology Professor Expl anation POLST 10/15/2019 3:17 PM POLST POLST 03/05/2019 POLST FORM Advance Directives and Living Will 01/27/2013 LIVING WILL Advance Directives and Living Will 01/27/2013 LIVING WILL Power of Registered Midwife 01/27/2013 POWER OF A TTORNEY Power of Registered Midwife 01/27/2013 POWER OF A TTORNEY Healthcare Agents on File Name Relationship Healthcare Agent Relationship Communication Cydney Benito Other - (no specific identity) Second Alternate Health Care Agent Anyi More Adult Child Health Care Roberth r of Registered Midwife Care Teams Pet Supplies Salesperson Relationship Specialty Start Date End Date Rhys Humphrey MD [address] [place] [address] [place] [address] PCP - General Family Medicine 06/09/21 documented as of this encounter
--- OUTSIDE RECORDS SUMMARY | 2023-10-29 06:24 | External Medical Summary | Summary of Care ---
Author Name Unknown Organization [facility] Address [address] [place] [address] Phone [phone] Care Team Providers Care Bow Maker Gift Wrapping Name Role Phone Rhys Humphrey MD Primary Care Provide r Reason for Visit * Reason Onset Date Comments [facility]: Maintenance 09/04/2023 Encounter Details Date Type Department Care Team (Late st Contact Info) Description 09/04/2023 Telephone [facility], [facility] [address] [place] [address] [facility], Nurse [facility] [address] [place] [address] [facility]: Maintenance Allergies Active Allergy Reactions Criticality Noted Date Comments Adhesive Tape Other (Please comment),Hives High 09/29/2008 Caused welts Dextromethorphan-Gu aifenesin Neuro complications (Please comment) Medium 12/23/2021 Feels lightheaded/"foggy" documented as of this encounter (statuses as of 09/04/2023) Medications Medication Sig Dispensed Refills Start Date [...] before bedtime. 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 30 Each 08/20/2023 Active documented as of this encounter (statuses as of 09/04/2023) Active Problems Problem Noted Date Diagnosed Date [...] as of this encounter (statuses as of 09/04/2023) Resolved Problems Problem Noted Date Diagnosed Date [...] as of this encounter (statuses as of 09/04/2023) Immunizations Name Administration Dates Next Due COVID-19 mRNA, LNP-s, No Pre serve, 2-Dose Series ([email or web address]) 07/11/2021,11/14/2020,10/24/2020 Covid-19, Mrna, Lnp-s, Pf, B ivalent, 30 Mcg, IM, 12 yrs and above ([email or web address]) 07/21/2022 Pneumococcal Conjugate Vacc, 13 Valent (Prevnar) 03/16/2015 Pneumococcal Conjugate Vacci ne, 20-valent ([email or web address]) 07/21/2022 Pneumococcal Polysaccharide PPV23 (Pneumovax) 03/05/2019,07/18/2007 SEASONAL [...] Telephone Encounter - Melissa Almaraz RN - 09/04/2023 5:19 PM EST Patient called back states she completed her lab work. 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 documented in this encounter Plan of Treatment Upcoming Encounters Date Type Department Care Team (Late st Contact Info) Description 09/05/2023 9:00 AM EST Scheduled Telephone [facility], [facility] [address] [place] [address] Coordinator, [facility] [address] [place] [address] 09/06/2023 11:00 AM EST Scheduled Telephone [facility] [place], [facility] [address] [place] [address] [facility] Nurse Triage [address] [place] [place] [address] 09/07/2023 10:30 AM EST Imaging Radiology [address] [place] [address] 09/10/2023 11:45 AM EST Imaging Radiology [address] [place] [address] 09/14/2023 3:15 PM EST Office Visit Hematology/Oncology [facility] [place] [address] [facility] [address] [address] [place] [address] Martínez Lopes MD 200 [facility] [address] 09/17/2023 9:40 AM EST Office Visit Dermatology [address] [place] [address] Marycruz Almazan PA-Hector [address] [place] [address] [place] [address] 09/21/2023 2:30 PM EST Home Visit [facility], [facility] [address] [place] [address] Sarah Vitale, RAYNA [address] [place] [address] 09/27/2023 11:15 AM EST Nutrition Services [facility], [facility] [address] [facility] [place] [address] Lovely Bravo, RDN [address] [facility] [place] [address] 09/28/2023 2:30 PM EST Home Visit [facility], [facility] [address] [place] [address] Sarah Vitale, RN 132 [facility] [place] [address] 10/03/2023 10:30 AM EST Office Visit Sleep Disorders Ctr [facility] [address] [place] [phone] Sosa Freeman CRNP [address] [place] [address] 10/16/2023 11:30 AM EST Office Visit Gastroenterology, [facility] [address] [place] [address] Lizzette Silva CRNP [address] [place] [address] 12/10/2023 9:20 AM EDT Office Visit Family Medicine [address] [place] [phone] Rhys Humphrey MD [address] [place] [address] [place] [address] 12/27/2023 11:00 AM EDT Office Visit Cardiology [address] [place] [address] Mi Neil PA-C [address] [place] [address] 03/18/2024 9:00 AM EDT Nurse Only Ancillary [address] [place] [address] [place], Nurse Annual Wellness [address] [place] [address] [place] [address] Scheduled Procedures Name Priority Associated Diagnoses Date/Ti me ESOPHAGOGASTRODUODENOSCOPY ( EGD), FLEXIBLE, TRANSORAL, DIAGNOSTIC Recall Other iron deficiency anemia Health Maintenance Due Date Last Done Comments Alpha-1 Antitrypsin 1958 DXA Scan 06/11/2020 06/11/2018, 03/02, 02/16/2012, Additional history exists *BISPHONATE OR OTHER ACCEPTABLE MEDICATION NEEDED FOR OSTEOPOROSIS (REFER TO SMARTSET #1146) 01/23/2021 Depression Screening 03/16/2024 03/16/2023 GFR 07/03/2024 07/03/2023, 06/01, 06/07/2023, Additional history exists O2 ASSESSMENT COMPLETED IN PAST YEAR FOR COPD 08/10/2024 08/10/2023 Albumin/Creatinine Ratio 04/28/2025 04/28/2022 DTaP,Tdap,and Td Vaccines (3 - Td or Tdap) 09/17/2029 09/17/2019, 08/10/2011, 10/01/2001 Zoster Vaccines Completed 04/25/2020, 08/31, 07/22/2012 VITAMIN D LEVEL ONCE IN A LIFETIME-USE SMARTSET# [id number] Completed 06/29/2020, 03/16/2015 Pneumococcal Vaccine: 65+ Years [...] Documents on File Type Date Recorded Patient 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 Warehousing Manager Expl anation POLST 10/15/2019 3:17 PM POLST POLST 03/05/2019 POLST FORM Advance Directives and Living Will 01/27/2013 LIVING WILL Advance Directives and Living Will 01/27/2013 LIVING WILL Power of Hunting Sales Leader 01/27/2013 POWER OF A TTORNEY Power of Hunting Sales Leader 01/27/2013 POWER OF A TTORNEY Healthcare Agents on File Name Relationship Healthcare Agent Relationship Communication Cydney Benito Other - (no specific identity) Second Alternate Health Care Agent Anyi More Adult Child Health Care Roberth r of Hunting Sales Leader Care Teams Bow Maker Gift Wrapping Relationship Specialty Start Date End Date Rhys Humphrey MD [address] [place] [address] [place] [address] PCP - General Family Medicine 06/09/21 documented as of this encounter
--- OUTSIDE RECORDS SUMMARY | 2023-10-29 06:24 | External Medical Summary | Summary of Care ---
Author Name Unknown Organization [facility] Address [address] [place] [address] Phone [phone] Care Team Providers Care Radiology Director Name Role Phone Rhys Humphrey MD Primary Care Provide r Reason for Visit * Reason Onset Date Comments [facility]: Maintenance 09/06/2023 Encounter Details Date Type Department Care Team (Late st Contact Info) Description 09/06/2023 11:00 AM EST Scheduled Telephone [facility], [facility] 132 [facility] [place] [address] [facility] Nurse Triage 132 [facility] [place] [address] Allergies Active Allergy Reactions Criticality Noted Date Comments Adhesive Tape Other (Please comment),Hives High 09/29/2008 Caused welts Dextromethorphan-Gu aifenesin Neuro complications (Please comment) Medium 12/23/2021 Feels lightheaded/"foggy" documented as of this encounter (statuses as of 09/06/2023) Medications Medication Sig Dispensed Refills Start Date [...] before bedtime. 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 30 Each 08/20/2023 Active documented as of this encounter (statuses as of 09/06/2023) Active Problems Problem Noted Date Diagnosed Date [...] as of this encounter (statuses as of 09/06/2023) Resolved Problems Problem Noted Date Diagnosed Date [...] as of this encounter (statuses as of 09/06/2023) Immunizations Name Administration Dates Next Due COVID-19 mRNA, LNP-s, No Pre serve, 2-Dose Series ([place]) 07/11/2021,11/14/2020,10/24/2020 Covid-19, Mrna, Lnp-s, Pf, B ivalent, 30 Mcg, IM, 12 yrs and above ([place]) 07/21/2022 Pneumococcal Conjugate Vacc, 13 Valent (Prevnar) 03/16/2015 Pneumococcal Conjugate Vacci ne, 20-valent ([id number]) 07/21/2022 Pneumococcal Polysaccharide PPV23 (Pneumovax) 03/05/2019,07/18/2007 SEASONAL [...] Telephone Encounter - Estee Verde RN - 09/06/2023 1:52 PM EST [facility] Merchandising Execution Manager Monthly Visit Date: 09/06/2023 Time: 1:52 PM Name: Keisha Linares : 1940 Monthly follow up call to Keisha, agreed to telephonic assessment, aware that call is being recorded for training purposes. Problems/Symptoms: HPI: Keisha reports doing fine today, I am doing alright, happy that the order for the Inogen concentrator was ordered today by her PCP. States her leg cramps have resolved. Denies any open areas/rashes to body, no fever/chills, appetite is good, did not sleep last night, thinks its the anxiety of what's going on with her, states she will not nap today Constitutional: weight stable at 149lbs, no weakness, and + fatigue, BP at time of call 109/47, SPO2 on 2lpm 94% HR-96 Resp: no hemoptysis, + cough, + sputum (purulent), + wheezing, and + dyspnea with exertion Cardiac: no chest pain, no orthopnea, no dyspnea on exertion, no PND, no edema, no claudication, and no palpitations GI: no pain, no heartburn, no diarrhea, no constipation, no blood/melena, no nausea, no vomiting, LBM was this morning, is urinating wnl's Musculoskeletal: no significant joint or muscle pain and no swelling Neuro: no memory loss, no weakness, no falling, no numbness or tingling, and no vertigo Medication Reconciliation: Does patient take medications as ordered: Yes, [facility] pharmacy does daily pill packs BP Readings from Last 5 Encounters: 08/22/23 128/58 08/21/23 112/58 08/18/23 140/64 08/10/23 105/49 07/23/23 128/78 Estee Verde RN 09/06/2023 documented in this encounter Plan of Treatment Upcoming Encounters Date Type Department Care Team (Late st Contact Info) Description 09/07/2023 10:30 AM EST Imaging Radiology [address] 132 [facility] [place] [address] 09/10/2023 11:45 AM EST Imaging Radiology, [facility] [address] [place] [address] 09/14/2023 3:15 PM EST Office Visit Hematology/Oncology [facility] [address] [place] [address] Martínez Lopes MD [address] [place] [address] 09/17/2023 9:40 AM EST Office Visit Dermatology [address] [place] [address] Marycruz Almazan PA-C [address] [place] [address] [place] [address] 09/21/2023 2:30 PM EST [facility] Visit [facility] [place], [facility] 132 [facility] [place] [address] Sarah Vitale RN 132 [facility] [place] [address] 09/27/2023 11:15 AM EST Nutrition Services [facility], [facility] [address] [facility] [place] [address] Lovely Bravo RDN [address] [place] [address] 09/28/2023 2:30 PM EST Home Visit [facility], [facility] 132 [place] [address] Sarah Vitale, RAYNA [address] [place] [address] 10/03/2023 10:30 AM EST Office Visit Sleep Disorders Ctr [facility] 132 [facility] [place] [phone] Sosa Freeman CRNP [address] [place] [address] 10/16/2023 11:30 AM EST Office Visit Gastroenterology, [facility] [place] [address] Lizzette Silva CRNP [address] [place] [address] 12/10/2023 9:20 AM EDT Office Visit Family Medicine [address] [place] [phone] Rhys Humphrey MD [address] [place] [address] [place] [address] 12/27/2023 11:00 AM EDT Office Visit Cardiology [address] [place] [address] Mi Neil PA-C 132 [facility] [place] [address] 03/18/2024 9:00 AM EDT Nurse Only Ancillary [address] [place] [address] [place], Nurse Annual [address] [place] [address] Scheduled Procedures Name Priority Associated Diagnoses Date/Ti [...] D LEVEL ONCE IN A LIFETIME-USE SMARTSET# 20418 Completed 06/29/2020, 03/16/2015 Pneumococcal Vaccine: 65+ Years [...] Documents on File Type Date Recorded Patient Barber Expl anation POLST 10/15/2019 3:17 PM POLST POLST 03/05/2019 POLST FORM Advance Directives and Living Will 01/27/2013 LIVING WILL Advance Directives and Living Will 01/27/2013 LIVING WILL Power of Bander Hand 01/27/2013 POWER OF A TTORNEY Power of Bander Hand 01/27/2013 POWER OF A TTORNEY Healthcare Agents on File Name Relationship Healthcare Agent Relationship Communication Cydney Benito Other - (no specific identity) Second Alternate Health Care Agent Anyi More Adult Child Health Care Roberth r of Bander Hand Care Teams Radiology Director Relationship Specialty Start Date End Date Rhys Humphrey MD [address] [place] [address] [place] [id number] PCP - General Family Medicine 06/09/21 documented as of this encounter
--- OUTSIDE RECORDS SUMMARY | 2023-10-29 06:24 | External Medical Summary | Summary of Care ---
Author Name Unknown Organization [facility] Address [address] [place] [address] Phone [phone] Care Team Providers Care Social Media Intern Name Role Phone Rhys Humphrey MD Primary Care Provide r Reason for Visit * Reason Comments Outpatient Testing Encounter Details Date Type Department Care Team (Late st Contact Info) Description 09/04/2023 10:40 AM EST Laboratory Laboratory [address] [place] [phone] [place] [address] Leg cramps Allergies Active Allergy Reactions Criticality Noted Date [...] before bedtime. 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 [place] [address] 09/06/2023 11:00 AM EST Scheduled Telephone [facility], [address] [place] [address] [facility] Nurse Triage [address] [place] [address] [place] [address] 09/07/2023 10:30 AM EST Imaging Radiology [address] [facility] [place] [address] 09/10/2023 11:45 AM EST Imaging Radiology [address] [place] [address] 09/14/2023 3:15 PM EST Office Visit Hematology/Oncology [facility] [address] [facility] [place] [address] Martínez Lopes MD [address] [facility] [place] [address] 09/17/2023 9:40 AM EST Office Visit Dermatology [address] [place] [address] Marycruz Almazan PA-C [address] [place] [address] [place] [address] 09/21/2023 2:30 PM EST [facility] Visit [facility] [place], [address] [place] [address] Saarh Vitale, RN [address] [place] [address] 09/27/2023 11:15 AM EST Nutrition Services [facility], [facility] [address] [facility] [place] [address] Lovely Bravo RDN [address] [facility] [place] [address] 09/28/2023 2:30 PM EST Home Visit [facility], [facility] [address] [place] [address] Sarah Vitale, RAYNA [address] [place] [address] 10/03/2023 10:30 AM EST Office Visit Sleep Disorders Ctr [facility] [address] [facility] [place] [phone] Sosa Freeman CRNP 132 [facility] [place] [address] 10/16/2023 11:30 AM EST Office Visit Gastroenterology, [facility] [address] [facility] [place] [address] Lizzette Silva CRNP [address] [place] [address] 12/10/2023 9:20 AM EDT Office Visit Family Medicine [address] [place] [phone] Rhys Humphrey MD [address] [place] [address] [place] [address] 12/27/2023 11:00 AM EDT Office Visit Cardiology [address] [place] [address] Mi Neil PA-C [address] [place] [address] 03/18/2024 9:00 AM EDT Nurse Only Ancillary [address] [place] [address] [place], Nurse Annual [address] [place] [address] Pending Results Name Type Priority Associated Diagnoses Date /Time CBC WITH WBC DIFFERENTIAL Lab Routine Leg cramps 09/04/2023 10:28 AM EST BASIC METABOLIC PANEL Lab Routine Leg cramps 09/04/2023 10:28 AM EST MAGNESIUM Lab Routine Leg cramps 09/04/2023 10:28 AM EST CBC Lab Routine Leg cramps 09/04/2023 10:28 AM EST DIFFERENTIAL, AUTOMATED Lab Routine Leg cramps 09/04/2023 10:28 AM EST Scheduled Procedures Name Priority Associated [...] D LEVEL ONCE IN A LIFETIME-USE SMARTSET# 92333 Completed 06/29/2020, 03/16/2015 Pneumococcal Vaccine: 65+ Years [...] as of this encounter Visit Diagnoses Diagnosis Leg cramps Cramp of limb documented in this encounter Advance Directives Documents on File Type Date Recorded Patient Mild Disabilities Teacher Expl anation POLST 10/15/2019 3:17 PM POLST POLST 03/05/2019 POLST FORM Advance Directives and Living Will 01/27/2013 LIVING WILL Advance Directives and Living Will 01/27/2013 LIVING WILL Power of Knitter Mechanic 01/27/2013 POWER OF A TTORNEY Power of Knitter Mechanic 01/27/2013 POWER OF A TTORNEY Healthcare Agents on File Name Relationship Healthcare Agent Relationship Communication Cydney Benito Other - (no specific identity) Second Alternate Health Care Agent Anyi More Adult Child Health Care Roberth r of Knitter Mechanic Care Teams Social Media Intern Relationship Specialty Start Date End Date Rhys Humphrey MD [address] [place] [address] [place] [phone] PCP - General Family Medicine 06/09/21 documented as of this encounter
--- OUTSIDE RECORDS SUMMARY | 2023-10-29 06:24 | External Medical Summary | Summary of Care ---
Author Name Unknown Organization [facility] Address [address] [place] [address] Phone [phone] Care Team Providers Care Right Of Way Appraiser Name Role Phone Rhys Humphrey MD Primary Care Provide r Reason for Visit * Reason Onset Date Comments Test Results 08/10/202308/10 bronch Encounter Details Date Type Department Care Team (Late st Contact Info) Description 08/10/2023 Telephone Pulmonary Medicine Marielena Dvaies [address] [place] [phone] Surjit Fernandez MD [address] [place] [address] Test Results (08/10 bronch) Allergies Active Allergy Reactions Criticality Noted Date [...] Calcium-Magnesium- Zinc 333-133-5 MG Oral Tablet Take 1 Tablet [...] Base) MCG/ACT Inhalation Aerosol SolutionIndication s:COPD, moderate (HCC) Inhale 2 Puffs by mouth [...] for Dizziness. 30 Tablet 0 3 Active Ipratropium-Albute rol 0.5-2.5 (3) MG/3ML Inhalation Solution (Duoneb)Indication s:COPD, group D, by GOLD 2017 classification ([facility]) Inhale 3 mL via nebulizer every 6 hours as needed for Shortness of Breath or Wheezing. 360 mL 3 3 Active Atorvastatin Calcium 40 MG Oral Tablet (Lipitor)Indicatio ns:Dyslipidemia, goal LDL below 100 Take 1 Tablet by mouth daily. 90 Tablet 1 3 Active Clopidogrel Bisulfate 75 MG Oral Tablet (pLAVix)Indication s:TIA (transient ischemic attack) Take 1 Tablet by mouth daily. 90 Tablet 1 3 Active Diclofenac Sodium 1 % External Gel (Voltaren)Indicati ons:pain Apply 2 g topically to affected area daily as needed for Pain. Apply to L shoulder 350 g 2 3 Active Premarin 0.625 MG/GM Vaginal Cream (Estrogens Conjugated)Indicat ions:Vaginal irritation,Atrophi c vaginitis Administer 0.5 g into the vagina at bedtime on Sunday and Sunday only. 42.5 g 1 3 Active Furosemide 40 MG Oral Tablet (Lasix)Indications :Chronic diastolic congestive heart failure ([facility]) One tablet daily with an extra tablet as needed for swelling 120 Tablet 3 3 Active Ramelteon 8 MG Oral Tablet (Rozerem)Indicatio ns:Insomnia, unspecified type TAKE ONE TABLET AT BEDTIME [...] 08/18/2023 Losartan Potassium 50 MG Oral Tablet (Cozaar)Indication s:HTN, goal below 140/90 Take 1 Tablet by mouth daily. 180 Tablet 1 3 Active Gabapentin 300 MG Oral Capsule (Neurontin)Indicat ions:Peripheral polyneuropathy,Mark n in both lower extremities TAKE THREE CAPSULES AT BEDTIME 90 Capsule 3 3 Active Clobetasol Propionate 0.05 % External Cream (Temovate)Indicati ons:Lichen sclerosus Apply to area twice daily x 1 month , then nightly x 2 months, then twice weekly x 3 months 60 g 1 3 Active Benzonatate 100 MG Oral Capsule Take 1 Capsule by mouth 3 times a day as needed for Cough. 30 Capsule 0 3 Active Anoro Ellipta 62.5-25 MCG/INH Inhalation Aerosol Powder Breath Activated (umeclidinium-mikey nterol)Indications :COPD, moderate (HCC),COPD, group D, by GOLD 2017 classification (HCC) Inhale by mouth 1 Puff in the morning. 30 Each 11 2 023 Discontinued(Re fill) Fluticasone Furoate 100 MCG/ACT Inhalation Aerosol Powder Breath Activated (ARNUITY ellipta) Inhale by mouth 1 Puff in the morning. In addition to anoro. 30 Each 11 2 023 Discontinued(Re fill) Amoxicillin-Pot Clavulanate 875-125 MG Oral Tablet (Augmentin) Take 1 Tablet by mouth in the morning and 1 Tablet before bedtime. 14 Tablet 0 3 023 Discontinued documented as of this [...] mRNA, LNP-s, No Pre serve, 2-Dose Series ([employer]) 07/11/2021,11/14/2020,10/24/2020 Covid-19, Mrna, Lnp-s, Pf, B ivalent, 30 Mcg, IM, 12 yrs and above ([employer]izer) 07/21/2022 Pneumococcal Conjugate Vacc, 13 Valent (Prevnar) 03/16/2015 Pneumococcal Conjugate Vacci ne, 20-valent ([email or web address]) 07/21/2022 Pneumococcal Polysaccharide PPV23 (Pneumovax) 03/05/2019,07/18/2007 SEASONAL [...] Telephone Encounter - Surjit Fernandez MD - 08/16/2023 1:17 PM EST I called the patient's daughter and explained the test result to her. They already have an appointment with the oncologist at the end of this month and they were encouraged to keep the appointment. Cytology shows evidence of small cell lung cancer. She should feel free to call us back if she has more questions Thank you * Telephone Encounter - Nusrat Alicea LPN - 08/16/2023 11:32 AM EST Daughter Anyi called back asking about malignancy on bronch wash. Please review and call Anyi back.Thanks. * Telephone Encounter - Nusrat Alicea LPN - 08/16/2023 8:45 AM EST Called the pt and her daughter Anyi and gave them Dr Fernandez's message. She doesn't know of any mold exposure but her daughter will have the land lord inspect her apartment. They also stated she was hospitalized recently at [facility] and they changed her Augmentin to Ceftin. * Telephone Encounter - Nusrat Alicea LPN - 08/15/2023 4:33 PM EST Called the pt and left a message that I will call her in the morning. * Telephone Encounter - Nusrat Alicea LPN - 08/15/2023 4:12 PM EST Surjit Fernandez MD8 minutes ago (4:02 PM) Please let the patient know that bronch showed evidence of infection and that the antibiotics that she was given is supposed to take care of the infection The bacteria is moraxella Also some mold was noted, so patient should decrease exposure if available Find out how she is doing Thank you * Telephone Encounter - Nusrat Alicea LPN - 08/13/2023 4:05 PM EST Called the pt and left a message letting the pt know to cotton picking machine operator the Augmentin and get it started and to call with any questions. * Telephone Encounter - Surjit Fernandez MD - 08/10/2023 4:36 PM EST I ordered Augmentin for the patient Let's follow up on bronchoscopy result Thank you documented in this encounter Plan of Treatment Upcoming Encounters Date Type Department Care Team (Late st Contact Info) Description 09/05/2023 9:00 AM EST Scheduled Telephone [facility] [address] [place] [address] [facility], [facility] [address] [place] [address] 09/06/2023 11:00 AM EST Scheduled Telephone [facility] [address] [place] [address] [facility] 132 [facility] [place] [address] 09/07/2023 10:30 AM EST Imaging Radiology [facility], [place] [address] [place] [address] 09/10/2023 11:45 AM EST Imaging Radiology [address] [place] [address] 09/14/2023 3:15 PM EST Office Visit Hematology/Oncology [facility] [address] [place] [address] Martínez Lopes MD [address] [place] [address] 09/17/2023 9:40 AM EST Office Visit Dermatology [address] [place] [address] Marycruz Almazan PA-C [address] [place] [address] [place] [address] 09/21/2023 2:30 PM EST [facility] Visit [facility], [facility] [address] [place] [address] Sarah Vitale RN [address] [place] [address] 09/27/2023 11:15 AM EST Nutrition Services [facility], [facility] [address] [place] [address] Lovely Bravo RDN [address] [place] [address] 09/28/2023 2:30 PM EST Home Visit [facility], [facility] [address] [place] [address] Sarah Vitale, RN [address] [place] [address] 10/03/2023 10:30 AM EST Office Visit Sleep Disorders Ctr [facility] [address] [place] [phone] Sosa Freeman CRNP [address] [place] [address] 10/16/2023 11:30 AM EST Office Visit Gastroenterology, [facility] [address] [place] [address] Lizzette Silva CRNP [address] [place] [address] 12/10/2023 9:20 AM EDT Office Visit Family Medicine [address] [place] [phone] Rhys Humphrey MD [address] [place] [address] [place] [address] 12/27/2023 11:00 AM EDT Office Visit Cardiology [address] [place] [address] Mi Neil, PAMateo [address] [place] [address] 03/18/2024 9:00 AM EDT Nurse Only Ancillary [address] [place] [address] [place], Nurse Annual Wellness [address] [place] [address] [place] [address] Scheduled Procedures Name Priority Associated Diagnoses Date/Ti [...] D LEVEL ONCE IN A LIFETIME-USE SMARTSET# 91734 Completed 06/29/2020, 03/16/2015 Pneumococcal Vaccine: 65+ Years [...] Documents on File Type Date Recorded Patient Developing Machine Operator Expl anation POLST 10/15/2019 3:17 PM POLST POLST 03/05/2019 POLST FORM Advance Directives and Living Will 01/27/2013 LIVING WILL Advance Directives and Living Will 01/27/2013 LIVING WILL Power of Floors Buffer 01/27/2013 POWER OF A TTORNEY Power of Floors Buffer 01/27/2013 POWER OF A TTORNEY Healthcare Agents on File Name Relationship Healthcare Agent Relationship Communication Cydney Benito Other - (no specific identity) Second Alternate Health Care Agent Anyi More Adult Child Health Care Roberth r of Floors Buffer Care Teams Right Of Way Appraiser Relationship Specialty Start Date End Date Rhys Humphrey MD [address] [place] [address] [place] [phone] PCP - General Family Medicine 06/09/21 documented as of this encounter
--- OUTSIDE RECORDS SUMMARY | 2023-10-29 06:24 | External Medical Summary | Summary of Care ---
Author Name Unknown Organization [facility] Address [address] [place] [address] Phone [phone] Care Team Providers Care Host/Hostess Name Role Phone Rhys Humphrey MD Primary Care Provide r Reason for Visit * Reason Onset Date Comments [facility]: Maintenance 09/05/2023 Encounter Details Date Type Department Care Team (Latest Contact Info) Description 09/05/2023 9:00 AM EST Scheduled Telephone [facility], [facility] [address] [facility] [place] [address] Coordinator, [facility] [address] [facility] [place] [address] Normochromic anemia*; Normocytic anemia Allergies Active Allergy Reactions Criticality Noted Date [...] before bedtime. 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 30 Each 11 08/20/2023 Active documented as of this encounter [...] mRNA, LNP-s, No Pre serve, 2-Dose Series ([employer]) 07/11/2021,11/14/2020,10/24/2020 Covid-19, Mrna, Lnp-s, Pf, B ivalent, 30 Mcg, IM, 12 yrs and above ([employer]) 07/21/2022 Pneumococcal Conjugate Vacc, 13 Valent (Prevnar) 03/16/2015 Pneumococcal Conjugate Vacci ne, 20-valent ([id number]) 07/21/2022 Pneumococcal Polysaccharide PPV23 (Pneumovax) 03/05/2019,07/18/2007 SEASONAL [...] from herpill boxes. Pt requests that this project coordinator rn call her dtr Anyi to tell her [...] and would probably not want unnecessary testing. Nayi states that the pt is usually an active person but she is getting depressed and will just sit around instead of socializing and playing Bingo. Anyi states she is taking the pt to a mental health appt today. Outgoing all to [facility] lab- they are currently processing the added on labs. Unsure at this time if EPO can be added on, if not the lab will reach out to Provider. Camila BAUMAN, RN [facility] Intake Triage Coordinator [phone] * Addendum Note - Hunter Sheffield MD [...] temporarily. (I see no evidence of recent MS or stent) She may need a repeat [...] [facility] Telephonic Nurse Follow-Up Call [facility] Subprogram: Focused Care Management (3-9 [...] EJECTION FRACTION 61 07/12/2023 Remote Patient Monitoring: [facility] Scale: [facility] Blood Pressure Cuff: Oxygen Needs: NO CHANGE [...] by Dr Kerr yesterday. Disposition: Routed to [facility] and/or [facility] Care Team for further advice FU call with Maximiliano Escalona RN tomorrow Future Visits Scheduled: Future Appointments-next 60 days Date/Time Provider Specialty Dept Phone 09/06/2023 11:00 AM Josephine Viera Nurse Triage [facility] [phone] 09/07/2023 10:30 AM (Arrive by 10:00 AM) MR2 СЕРГЕЙ SALAS Radiology [phone] 09/10/2023 11:45 AM PET Radiology [phone] 09/14/2023 3:15 PM (Arrive by 3:00 PM) Martínez Lopes MD Hematology Oncology [phone] 09/17/2023 9:40 AM (Arrive by 9:25 AM) Marycruz Almazan PA-C Dermatology [phone] 09/21/2023 2:30 PM Sarah Vitale RN [facility] [phone] 09/27/2023 11:15 AM Lovely Bravo RDN [facility] [phone] 09/28/2023 2:30 PM Sarah Vitale RN [facility] [phone] 10/03/2023 10:30 AM (Arrive by 10:15 AM) Sosa Freeman CRNP Sleep Disorders [phone] 10/16/2023 11:30 AM (Arrive by 11:15 AM) Lizzette Silva CRNP Gastroenterology [phone] 12/10/2023 9:20 AM (Arrive by 9:05 AM) Rhys Humphrey MD Family Medicine [phone] 12/27/2023 11:00 AM (Arrive by 10:45 AM) Mi Neil PA-C Cardiology [phone] 03/18/2024 9:00 AM [place], Nurse Annual Wellness Ancillary [phone] Camila Thakur, RN documented in this encounter Plan of Treatment Upcoming Encounters Date Type Department Care Team (Late st Contact Info) Description 09/07/2023 10:30 AM EST Imaging Radiology [address] [facility] [place] [address] 09/10/2023 11:45 AM EST Imaging Radiology, [facility] [address] [place] [address] 09/14/2023 3:15 PM EST Office Visit Hematology/Oncology [facility] [address] [place] [address] Martínez Lopes MD [address] [place] [address] 09/17/2023 9:40 AM EST Office Visit Dermatology [address] [place] [address] Marycruz Almazan PA-C [address] [place] [address] [place] [address] 09/21/2023 2:30 PM EST Home Visit [facility], [facility] [address] [facility] [place] [address] Sarah Vitale, RN 132 [facility] [place] [address] 09/27/2023 11:15 AM EST Nutrition Services [facility], [facility] [address] [facility] [place] [address] Lovely Bravo, ANIBAL [address] [facility] [place] [address] 09/28/2023 2:30 PM EST Home Visit [facility], [facility] [address] [place] [address] Sarah Vitale, RN [address] [place] [address] 10/03/2023 10:30 AM EST Office Visit Sleep Disorders Ctr [facility] [address] [place] [address] Sosa Freeman CRNP [address] [place] [address] 10/16/2023 11:30 AM EST Office Visit Gastroenterology, [facility] [address] [place] [address] Lizzette Silva CRNP [address] [place] [address] 12/10/2023 9:20 AM EDT Office Visit Family Medicine [address] [place] [phone] Rhys Humphrey MD [address] [place] [address] [place] [address] 12/27/2023 11:00 AM EDT Office Visit Cardiology [address] [place] [address] Mi Neil PA-C [address] [place] [address] 03/18/2024 9:00 AM EDT Nurse Only Ancillary [address] [place] [address] [place], Nurse [address] [place] [address] Scheduled Orders Name Type Priority Associated Diagnoses Orde r Schedule ERYTHROPOIETIN (EPO) Lab Routine Normocytic anemia Expected: 09/05/2023 (Approximate), Expires: 09/04/2024 Scheduled Procedures Name Priority Associated Diagnoses Date/Ti [...] FOR COPD 08/10/2024 08/10/2023 GFR 09/04/2024 09/04/2023, 1011/2022, 06/13/2023, Additional history exists Albumin/Creatinine Ratio 04/28/2025 04/28/2022 DTaP,Tdap,and Td Vaccines (3 - Td or Tdap) 09/17/2029 09/17/2019, 08/10/2011, 10/01/2001 Zoster Vaccines Completed 04/25/2020, 08/31, 07/22/2012 VITAMIN D LEVEL ONCE IN A LIFETIME-USE SMARTSET# [id number] Completed 06/29/2020, 03/16/2015 Pneumococcal Vaccine: 65+ Years [...] LAB BLOOD ORDERA BLES Performing Organization Address City/[facility] [address]/ZIP Co de Phone Number [facility] [address] [place] [address] * VITAMIN B12 (09/04/2023 10:28 AM EST) Vitamin B12 1,000 232 - 1,245 pg/mL 09/05/2023 12:06 PM EST [facility] Blood Venous blood specimen / Unknown Venipuncture / Unknown 09/04/2023 10:28 AM EST 09/04/2023 10:28 AM EST Hunter Sheffield MD LAB BLOOD ORDERA BLES Performing Organization Address [facility] [address]/[facility] de Phone Number LABORATORY C [address] [place] [address] * (ABNORMAL) IRON SCREEN, INCLUDING TIBC (09/04/2023 [...] LAB BLOOD ORDERA BLES Performing Organization Address City/[facility] [address]/ZIP Co de Phone Number [facility] [address] [place] [address] documented in this encounter Visit Diagnoses Diagnosis Normochromic anemia- Primary Anemia, unspecified Normocytic anemia Anemia, unspecified documented in this encounter Advance Directives Documents on File Type Date Recorded Patient Registered Physical Therapist Expl anation POLST 10/15/2019 3:17 PM POLST POLST 03/05/2019 POLST FORM Advance Directives and Living Will 01/27/2013 LIVING WILL Advance Directives and Living Will 01/27/2013 LIVING WILL Power of Maintenance Craftsman 01/27/2013 POWER OF A TTORNEY Power of Maintenance Craftsman 01/27/2013 POWER OF A TTORNEY Healthcare Agents on File Name Relationship Healthcare Agent Relationship Communication Cydnye Benito Other - (no specific identity) Second Alternate Health Care Agent Anyi More Adult Child Health Care Roberth r of Maintenance Craftsman Care Teams Host/Hostess Relationship Specialty Start Date End Date Rhys Humphrey MD [address] [place] [address] [place] [address] PCP - General Family Medicine 06/09/21 documented as of this encounter
--- OUTSIDE RECORDS SUMMARY | 2023-10-29 06:24 | External Medical Summary | Summary of Care ---
Author Name Unknown Organization [facility] Address [address] [place] [address] Phone [phone] Care Team Providers Care Security Specialist Name Role Phone Rhys Humphrey MD Primary Care Provide r Reason for Visit * Reason Onset Date Comments [facility]: Maintenance 09/05/2023 Encounter Details Date Type Department Care Team (Latest Contact Info) Description 09/05/2023 9:00 AM EST Scheduled Telephone [facility], [facility] [address] [facility] [place] [address] Coordinator, [facility] [address] [facility] [place] [address] Normochromic anemia*; Normocytic anemia Allergies Active Allergy Reactions Criticality Noted Date Comments Adhesive Tape Other (Please comment),Hives High 09/29/2008 Caused welts Dextromethorphan-Gu aifenesin Neuro complications (Please comment) Medium 12/23/2021 Feels lightheaded/"foggy" documented as of this encounter (statuses as of 09/05/2023) Medications Medication Sig Dispensed Refills Start Date [...] before bedtime. 50 Cap 0 01/18/2021 Active Fuhxbzd-Xftcttvcf-Oa nc 333-133-5 MG Oral Tablet Take 1 [...] (Lasix)Indications:C hronic diastolic congestive heart failure ([facility]) One tablet daily with an [...] MCG/ACT Inhalation Aerosol Powder Breath Activated (umeclidinium-vilant ed)Indications:TECHNICIAN AUTOMATED EQUIPMENT D, moderate (HCC),COPD, group D, by GOLD 2017 classification (HCC) Inhale 1 Puff by mouth in the morning. 30 Each 11 08/20/2023 Active documented as of this encounter (statuses as of 09/05/2023) Active Problems Problem Noted Date Diagnosed Date [...] as of this encounter (statuses as of 09/05/2023) Resolved Problems Problem Noted Date Diagnosed Date [...] as of this encounter (statuses as of 09/05/2023) Immunizations Name Administration Dates Next Due COVID-19 mRNA, LNP-s, No Pre serve, 2-Dose Series (Btarget) 07/11/2021,11/14/2020,10/24/2020 Covid-19, Mrna, Lnp-s, Pf, B ivalent, 30 Mcg, IM, 12 yrs and above (Btarget) 07/21/2022 Pneumococcal Conjugate Vacc, 13 Valent (Prevnar) 03/16/2015 Pneumococcal Conjugate Vacci ne, 20-valent ([id number]) 07/21/2022 Pneumococcal Polysaccharide PPV23 (Pneumovax) 03/05/2019,07/18/2007 SEASONAL [...] from herpill boxes. 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 Outgoing all to [facility] lab- they are currently processing the added on labs. Unsure at this time if EPO can be added on, if not the lab will reach out to Provider. Camila BAUMAN, RN [facility] Intake Triage Coordinator [phone] * Addendum Note - Hunter Sheffield MD [...] temporarily. (I see no evidence of recent MD or stent) She may need a repeat [...] [facility] Telephonic Nurse Follow-Up Call [facility] Subprogram: Focused Care Management (3-9 months) [...] EJECTION FRACTION 61 07/12/2023 Remote Patient Monitoring: [facility] [place]: [facility] Blood Pressure Cuff: Oxygen Needs: NO CHANGE [...] by Dr Kerr yesterday. Disposition: Routed to [facility] and/or [facility] Care Team for further advice FU call with Maximiliano Escalona RN tomorrow Future Visits Scheduled: Future Appointments-next 60 days Date/Time Provider Specialty Dept Phone 09/06/2023 11:00 AM Josephine Viera Nurse Triage [facility] [phone] 09/07/2023 10:30 AM (Arrive by 10:00 AM) MR2 СЕРГЕЙ SALAS Radiology [phone] 09/10/2023 11:45 AM PET Radiology [phone] 09/14/2023 3:15 PM (Arrive by 3:00 PM) Martínez Lopes MD Hematology Oncology [phone] 09/17/2023 9:40 AM (Arrive by 9:25 AM) Marycruz Almazan PA-C Dermatology [phone] 09/21/2023 2:30 PM Sarah Vitale RN [facility] [phone] 09/27/2023 11:15 AM Lovely Bravo RDN [facility] [phone] 09/28/2023 2:30 PM Sarah Vitale RN [facility] [phone] 10/03/2023 10:30 AM (Arrive by 10:15 AM) Sosa Freeman CRNP Sleep Disorders [phone] 10/16/2023 11:30 AM (Arrive by 11:15 AM) Lizzette Silva CRNP Gastroenterology [phone] 12/10/2023 9:20 AM (Arrive by 9:05 AM) Rhys Humphrey MD Family Medicine [phone] 12/27/2023 11:00 AM (Arrive by 10:45 AM) Mi Neil PA-C Cardiology [phone] 03/18/2024 9:00 AM Stanton, Nurse Annual Wellness Ancillary [phone] Camila Thakur, RN documented in this encounter Plan of Treatment Upcoming Encounters Date Type Department Care Team (Late st Contact Info) Description 09/06/2023 11:00 AM EST Scheduled Telephone [facility], [address] [place] [address] [facility] Nurse Triage [address] [facility] [place] [address] 09/07/2023 10:30 AM EST Imaging Radiology [address] [place] [address] 09/10/2023 11:45 AM EST Imaging Radiology [address] [place] [address] 09/14/2023 3:15 PM EST Office Visit Hematology/Oncology [facility] [address] [place] [address] Martínez Lopes MD [address] [place] [address] 09/17/2023 9:40 AM EST Office Visit Dermatology [address] [place] [address] Marycruz Almazan PA-C [address] [place] [address] [place] [address] 09/21/2023 2:30 PM EST Home Visit [facility], [facility] [address] [place] [address] Sarah Vitale, RAYNA 132 [facility] [place] [address] 09/27/2023 11:15 AM EST Nutrition Services [facility], [facility] [address] [facility] [place] [address] Lovely Bravo, SHAKIRN [address] [facility] [place] [address] 09/28/2023 2:30 PM EST Home Visit [facility], [facility] [address] [place] [address] Sarah Vitale, RAYNA [address] [place] [address] 10/03/2023 10:30 AM EST Office Visit Sleep Disorders Ctr [facility] [address] [place] [phone] Sosa Freeman CRNP [address] [place] [address] 10/16/2023 11:30 AM EST Office Visit Gastroenterology, [facility] [address] [place] [address] Lizzette Silva CRNP [address] [place] [address] 12/10/2023 9:20 AM EDT Office Visit Family Medicine [address] [place] [phone] Rhys Humphrey MD [address] [place] [address] [place] [address] 12/27/2023 11:00 AM EDT Office Visit Cardiology [address] [place] [address] Mi Neil, CECI [address] [place] [address] 03/18/2024 9:00 AM EDT Nurse Only Ancillary [address] [place] [address] [place], Nurse [address] [place] [address] Pending Results Name Type Priority Associated Diagnoses Date /Time IRON SCREEN, INCLUDING TIBC Lab Routine Normocytic anemia 09/04/2023 10:28 AM EST VITAMIN B12 Lab Routine Normocytic anemia 09/04/2023 10:28 AM EST FOLIC ACID Lab Routine Normocytic anemia 09/04/2023 10:28 AM EST Scheduled Orders Name Type Priority Associated Diagnoses Orde r Schedule IRON SCREEN, INCLUDING TIBC Lab Routine Normocytic anemia Expected: 09/05/2023 (Approximate), Expires: 09/04/2024 VITAMIN B12 Lab Routine Normocytic anemia Expected: 09/05/2023 (Approximate), Expires: 09/04/2024 FOLIC ACID Lab Routine Normocytic anemia Expected: 09/05/2023 (Approximate), Expires: 09/04/2024 ERYTHROPOIETIN (EPO) Lab Routine Normocytic anemia Expected: [...] D LEVEL ONCE IN A LIFETIME-USE SMARTSET# [id number] Completed 06/29/2020, 03/16/2015 Pneumococcal Vaccine: 65+ Years [...] as of this encounter Visit Diagnoses Diagnosis Normochromic anemia- Primary Anemia, unspecified Normocytic anemia Anemia, unspecified documented in this encounter Advance Directives Documents on File Type Date Recorded Patient Funeral Planning Counselor Expl anation POLST 10/15/2019 3:17 PM POLST POLST 03/05/2019 POLST FORM Advance Directives and Living Will 01/27/2013 LIVING WILL Advance Directives and Living Will 01/27/2013 LIVING WILL Power of Blast Hole Driller 01/27/2013 POWER OF A TTORNEY Power of Blast Hole Driller 01/27/2013 POWER OF A TTORNEY Healthcare Agents on File Name Relationship Healthcare Agent Relationship Communication Cydney Benito Other - (no specific identity) Second Alternate Health Care Agent Anyi More Adult Child Health Care Roberth r of Blast Hole Driller Care Teams Security Specialist Relationship Specialty Start Date End Date Rhys Humphrey MD [address] [place] [address] [place] [address] PCP - General Family Medicine 06/09/21 documented as of this encounter
--- OUTSIDE RECORDS SUMMARY | 2023-10-29 06:24 | External Medical Summary | Summary of Care ---
Author Name Unknown Organization [facility] Address [address] [place] [address] Phone [phone] Care Team Providers Care Sausage Maker Name Role Phone Rhys Humphrey MD Primary Care Provide r Reason for Visit * Reason Onset Date Comments [facility]: Maintenance 09/05/2023 Encounter Details Date Type Department Care Team (Latest Contact Info) Description 09/05/2023 9:00 AM EST Scheduled Telephone [facility], [facility] [address] [facility] [place] [address] Coordinator, [facility] [address] [facility] [place] [address] Normochromic anemia*; Normocytic anemia Allergies Active Allergy [...] before bedtime. 50 Cap 0 01/18/2021 Active Yofvpnv-Xptphrpyn-Lc nc 333-133-5 MG Oral Tablet Take 1 [...] MCG/ACT Inhalation Aerosol Powder Breath Activated (umeclidinium-vilant ed)Indications:SAILBOAT CAPTAIN D, moderate (HCC),COPD, group D, by GOLD [...] mRNA, LNP-s, No Pre serve, 2-Dose Series (8th Story) 07/11/2021,11/14/2020,10/24/2020 Covid-19, Mrna, Lnp-s, Pf, B ivalent, 30 Mcg, IM, 12 yrs and above (8th Story) 07/21/2022 Pneumococcal Conjugate Vacc, 13 Valent (Prevnar) 03/16/2015 Pneumococcal Conjugate Vacci ne, 20-valent ([id number]) 07/21/2022 Pneumococcal Polysaccharide PPV23 (Pneumovax) 03/05/2019,07/18/2007 SEASONAL [...] from herpill boxes. Pt requests that this vba developer call her dtr Anyi to tell her [...] mental health appt today. Outgoing all to [facility]- they are currently processing the added on labs. Unsure at this time if EPO can be added on, if not the lab will reach out to Provider. Camila BAUMAN, RN [facility] Intake Triage Coordinator [phone] * Addendum Note - Hunter Sheffield MD [...] temporarily. (I see no evidence of recent CO or stent) She may need a repeat [...] [facility] Telephonic Nurse Follow-Up Call [facility] Subprogram: Focused Care Management (3-9 [...] EJECTION FRACTION 61 07/12/2023 Remote Patient Monitoring: [facility] [place] [facility] [place] Blood Pressure Cuff: Oxygen Needs: NO CHANGE [...] by Dr Kerr yesterday. Disposition: Routed to [facility] and/or [facility] Care Team for further advice FU call with Maximiliano Escalona RN tomorrow Future Visits Scheduled: Future Appointments-next 60 days Date/Time Provider Specialty Dept Phone 09/06/2023 11:00 AM Josephine Viera Nurse Triage [facility] [phone] 09/07/2023 10:30 AM (Arrive by 10:00 AM) MR2 СЕРГЕЙ SALAS Radiology [phone] 09/10/2023 11:45 AM PET Radiology [phone] 09/14/2023 3:15 PM (Arrive by 3:00 PM) Martínez Lopes MD Hematology Oncology [phone] 09/17/2023 9:40 AM (Arrive by 9:25 AM) Marycruz Almazan PA-C Dermatology [phone] 09/21/2023 2:30 PM Sarah Vitale RN [facility] [phone] 09/27/2023 11:15 AM Lovely Bravo RDN [facility] [phone] 09/28/2023 2:30 PM Sarah Vitale RN [facility] [phone] 10/03/2023 10:30 AM (Arrive by 10:15 AM) Sosa Freeman CRNP Sleep Disorders [phone] 10/16/2023 11:30 AM (Arrive by 11:15 AM) Lizzette Silva CRNP Gastroenterology [phone] 12/10/2023 9:20 AM (Arrive by 9:05 AM) Rhys Humphrey MD Family Medicine [phone] 12/27/2023 11:00 AM (Arrive by 10:45 AM) Mi Neil PA-C Cardiology [phone] 03/18/2024 9:00 AM Stanton, Nurse Annual Wellness Ancillary [phone] Camila Thakur, RN documented in this encounter Plan of Treatment Upcoming Encounters Date Type Department Care Team (Late st Contact Info) Description 09/06/2023 11:00 AM EST Scheduled Telephone [facility], [address] [place] [address] [facility] Nurse Triage [address] [facility] [place] [address] 09/07/2023 10:30 AM EST Imaging Radiology [address] [place] [address] 09/10/2023 11:45 AM EST Imaging Radiology [address] [place] [address] 09/14/2023 3:15 PM EST Office Visit Hematology/Oncology [facility] [address] [place] [address] Martínez Lopes MD [address] [place] [address] 09/17/2023 9:40 AM EST Office Visit Dermatology [address] [place] [address] Marycruz Almazan PA-C [address] [place] [address] [place] [address] 09/21/2023 2:30 PM EST Home Visit [facility], [facility] [address] [place] [address] Sarah Vitale, RAYNA 132 [facility] [place] [address] 09/27/2023 11:15 AM EST Nutrition Services [facility], [facility] [address] [facility] [place] [address] Lovely Bravo, SHAKIRN [address] [facility] [place] [address] 09/28/2023 2:30 PM EST Home Visit [facility], [facility] [address] [place] [address] Sarah Vitale, RAYNA [address] [place] [address] 10/03/2023 10:30 AM EST Office Visit Sleep Disorders Ctr [facility] [address] [place] [phone] Sosa Freeman CRNP [address] [place] [address] 10/16/2023 11:30 AM EST Office Visit Gastroenterology, [facility] [address] [place] [address] Lizzette Silva CRNP [address] [place] [address] 12/10/2023 9:20 AM EDT Office Visit Family Medicine [address] [place] [address] Rhys Humphrey MD [address] [place] [address] [place] [address] 12/27/2023 11:00 AM EDT Office Visit Cardiology [address] [place] [address] Mi Neil, CECI [address] [place] [address] 03/18/2024 9:00 AM EDT Nurse Only Ancillary [address] [place] [address] [place], Nurse [address] [place] [address] Pending Results Name Type Priority Associated Diagnoses [...] D LEVEL ONCE IN A LIFETIME-USE SMARTSET# [id number] Completed 06/29/2020, 03/16/2015 Pneumococcal Vaccine: 65+ Years [...] Documents on File Type Date Recorded Patient Kersey Department Supervisor Expl anation POLST 10/15/2019 3:17 PM POLST POLST 03/05/2019 POLST FORM Advance Directives and Living Will 01/27/2013 LIVING WILL Advance Directives and Living Will 01/27/2013 LIVING WILL Power of Spindle Repairer 01/27/2013 POWER OF A TTORNEY Power of Spindle Repairer 01/27/2013 POWER OF A TTORNEY Healthcare Agents on File Name Relationship Healthcare Agent Relationship Communication Cydney Benito Other - (no specific identity) Second Alternate Health Care Agent Anyi More Adult Child Health Care Roberth r of Spindle Repairer Care Teams Sausage Maker Relationship Specialty Start Date End Date Rhys Humphrey MD [address] [place] [address] [place] [address] PCP - General Family Medicine 06/09/21 documented as of this encounter
--- OUTSIDE RECORDS SUMMARY | 2023-10-29 06:24 | External Medical Summary | Summary of Care ---
Author Name Unknown Organization [facility] Address [address] [place] [address] Phone [phone] Care Team Providers Care Baffle Installer Name Role Phone Rhys Humphrey MD Primary Care Provide r Reason for Visit * Reason Onset Date Comments [facility]: Maintenance 09/05/2023 Encounter Details Date Type Department Care Team (Latest Contact Info) Description 09/05/2023 9:00 AM EST Scheduled Telephone [facility], [facility] [address] [facility] [place] [address] Coordinator, [facility] [address] [facility] [place] [address] Normochromic anemia*; Normocytic anemia Allergies Active Allergy [...] before bedtime. 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 (HCC),COPD, group D, by [...] mRNA, LNP-s, No Pre serve, 2-Dose Series (HashCube) 07/11/2021,11/14/2020,10/24/2020 Covid-19, Mrna, Lnp-s, Pf, B ivalent, 30 Mcg, IM, 12 yrs and above (HashCube) 07/21/2022 Pneumococcal Conjugate Vacc, 13 Valent (Prevnar) 03/16/2015 Pneumococcal Conjugate Vacci ne, 20-valent ([id number]) 07/21/2022 Pneumococcal Polysaccharide PPV23 (Pneumovax) 03/05/2019,07/18/2007 SEASONAL [...] [facility] Telephonic Nurse Follow-Up Call [facility] Subprogram: Focused Care Management (3-9 [...] EJECTION FRACTION 61 07/12/2023 Remote Patient Monitoring: [facility] [place]: [facility] [...] by Dr Kerr yesterday. Disposition: Routed [place] [facility] and/or [facility] at Home Care Team for further advice FU call with Maximiliano Escalona RN tomorrow Future Visits Scheduled: Future Appointments-next 60 days Date/Time Provider Specialty Dept Phone 09/06/2023 11:00 AM Josephine Viera Nurse Triage [facility] [phone] 09/07/2023 10:30 AM (Arrive by 10:00 AM) NELSON SALAS Radiology [phone] 09/10/2023 11:45 AM PET Radiology [phone] 09/14/2023 3:15 PM (Arrive by 3:00 PM) Martínez Lopes MD Hematology Oncology [phone] 09/17/2023 9:40 AM (Arrive by 9:25 AM) Marycruz Almazan PA-C Dermatology [phone] 09/21/2023 2:30 PM Sarah Vitale RN [facility] [phone] 09/27/2023 11:15 AM Lovely Bravo RDN [facility] [phone] 09/28/2023 2:30 PM Sarah Vitale RN [facility] [phone] 10/03/2023 10:30 AM (Arrive by 10:15 AM) Sosa Freeman CRNP Sleep Disorders [phone] 10/16/2023 11:30 AM (Arrive by 11:15 AM) Lizzette Silva CRNP Gastroenterology [phone] 12/10/2023 9:20 AM (Arrive by 9:05 AM) Rhys Humphrey MD Family Medicine [phone] 12/27/2023 11:00 AM (Arrive by 10:45 AM) Mi Neil PA-C Cardiology [phone] 03/18/2024 9:00 AM Stanton, Nurse Annual Wellness Ancillary [phone] Camila Thakur, RN documented in this encounter Plan of Treatment Upcoming Encounters Date Type Department Care Team (Late st Contact Info) Description 09/06/2023 11:00 AM EST Scheduled Telephone [facility], [facility] [address] [facility] [place] [address] [facility] [place] [address] [place] [address] 09/07/2023 10:30 AM EST Imaging Radiology [address] [place] [address] 09/10/2023 11:45 AM EST Imaging Radiology [address] [facility] [place] [address] 09/14/2023 3:15 PM EST Office Visit Hematology/Oncology [facility] [address] [place] [address] Martínez Lopes MD [address] [place] [address] 09/17/2023 9:40 AM EST Office Visit Dermatology [address] [place] [address] Marycruz Almazan PA-C [address] [place] [address] [place] [address] 09/21/2023 2:30 PM EST Home Visit [facility], [facility] [address] [place] [address] Sarah iVtale, RAYNA [address] [place] [address] 09/27/2023 11:15 AM EST Nutrition Services [facility], [facility] [address] [place] [address] [place] Lovelyyareli Massey, RDN [address] [place] [address] 09/28/2023 2:30 PM EST Home Visit [facility], [facility] [address] [place] [address] Sarah Vitale RN [address] [place] [address] 10/03/2023 10:30 AM EST Office Visit Sleep Disorders Ctr [facility] [address] [facility] [place] [phone] Sosa Freeman CRNP [address] [facility] [place] [address] 10/16/2023 11:30 AM EST Office Visit Gastroenterology, [facility] [address] [place] [address] Lizzette Silva CRNP [address] [facility] [place] [address] 12/10/2023 9:20 AM EDT Office Visit Family Medicine [address] [place] [phone] Rhys Humphrey MD [address] [place] [address] [place] [address] 12/27/2023 11:00 AM EDT Office Visit Cardiology [address] [place] [address] iM Neil PA-C [address] [place] [address] 03/18/2024 9:00 AM EDT Nurse Only Ancillary [address] [place] [address] M[place], Nurse Annual [address] [place] [address] Pending Results Name Type Priority Associated Diagnoses [...] D LEVEL ONCE IN A LIFETIME-USE SMARTSET# [id number] Completed 06/29/2020, 03/16/2015 Pneumococcal Vaccine: 65+ Years [...] Documents on File Type Date Recorded Patient Farmworkers Expl anation POLST 10/15/2019 3:17 PM POLST POLST 03/05/2019 POLST FORM Advance Directives and Living Will 01/27/2013 LIVING WILL Advance Directives and Living Will 01/27/2013 LIVING WILL Power of Key Punch Teacher 01/27/2013 POWER OF A TTORNEY Power of Key Punch Teacher 01/27/2013 POWER OF A TTORNEY Healthcare Agents on File Name Relationship Healthcare Agent Relationship Communication Cydney Benito Other - (no specific identity) Second Alternate Health Care Agent Anyi More Adult Child Health Care Roberth r of Key Punch Teacher Care Teams Baffle Installer Relationship Specialty Start Date End Date Rhys Humphrey MD [address] [place] [address] [place] [address] PCP - General Family Medicine 06/09/21 documented as of this encounter
--- OUTSIDE RECORDS SUMMARY | 2023-10-29 06:24 | External Medical Summary | Summary of Care ---
Author Name Unknown Organization [facility] Address [address] [place] [address] Phone [phone] Care Team Providers Care Miniature Set Constructor Name Role Phone Rhys Humphrey MD Primary Care Provide r Reason for Visit * Reason Onset Date Comments [facility]: Maintenance 09/05/2023 Encounter Details Date Type Department Care Team (Late st Contact Info) Description 09/05/2023 9:00 AM EST Scheduled Telephone [facility], [facility] [address] [facility] [place] [address] Coordinator, [facility] [address] [facility] [place] [address] Allergies Active Allergy Reactions Criticality Noted Date [...] before bedtime. 50 Cap 0 01/18/2021 Active Xvcujdf-Dglxiqnmx-Zr nc 333-133-5 MG Oral Tablet Take 1 [...] (Lasix)Indications:C hronic diastolic congestive heart failure ([facility]) One tablet daily with an extra [...] MCG/ACT Inhalation Aerosol Powder Breath Activated (umeclidinium-vilant ed)Indications:CALL TAKER D, moderate (HCC),COPD, group D, by GOLD [...] mRNA, LNP-s, No Pre serve, 2-Dose Series ([employer]) 07/11/2021,11/14/2020,10/24/2020 Covid-19, Mrna, Lnp-s, Pf, B ivalent, 30 Mcg, IM, 12 yrs and above ([employer]) 07/21/2022 Pneumococcal Conjugate Vacc, 13 Valent (Prevnar) 03/16/2015 Pneumococcal Conjugate Vacci ne, 20-valent ([id number]) 07/21/2022 Pneumococcal Polysaccharide PPV23 (Pneumovax) 03/05/2019,07/18/2007 SEASONAL [...] [facility] Telephonic Nurse Follow-Up Call [facility] Subprogram: Focused Care Management (3-9 months) [...] EJECTION FRACTION 61 07/12/2023 Remote Patient Monitoring: [facility] Scale: [facility] Blood Pressure Cuff: Oxygen Needs: NO CHANGE [...] by Dr Kerr yesterday. Disposition: Routed to [facility] and/or [facility] Care Team for further advice FU call with Maximiliano Escalona RN tomorrow Future Visits Scheduled: Future Appointments-next 60 days Date/Time Provider Specialty Dept Phone 09/06/2023 11:00 AM Josephine Viera Nurse Triage [facility] [phone] 09/07/2023 10:30 AM (Arrive by 10:00 AM) MR2 [facility] Radiology [phone] 09/10/2023 11:45 AM PET Radiology [phone] 09/14/2023 3:15 PM (Arrive by 3:00 PM) Martínez Lopes MD Hematology Oncology [phone] 09/17/2023 9:40 AM (Arrive by 9:25 AM) Marycruz Almazan PA-C Dermatology [phone] 09/21/2023 2:30 PM Sarah Vitale, RAYNA [facility] [phone] 09/27/2023 11:15 AM Lovely Bravo RDN [facility] [phone] 09/28/2023 2:30 PM Sarah Vitale, RAYNA [facility] [phone] 10/03/2023 10:30 AM (Arrive by 10:15 AM) Sosa Freeman CRNP Sleep Disorders [phone] 10/16/2023 11:30 AM (Arrive by 11:15 AM) Lizzette Silva CRNP Gastroenterology [phone] 12/10/2023 9:20 AM (Arrive by 9:05 AM) Rhys Humphrey MD Family Medicine [phone] 12/27/2023 11:00 AM (Arrive by 10:45 AM) Mi Neil PA-C Cardiology [phone] 03/18/2024 9:00 AM Nurse Stanton [facility] Ancillary [phone] Camila Thakur RN documented in this encounter Plan of Treatment Upcoming Encounters Date Type Department Care Team (Late st Contact Info) Description 09/06/2023 11:00 AM EST Scheduled Telephone [facility], [facility] [address] [place] [address] [facility] Nurse Triage [address] [place] [address] 09/07/2023 10:30 AM EST Imaging Radiology [address] [place] [address] 09/10/2023 11:45 AM EST Imaging Radiology [address] [place] [address] 09/14/2023 3:15 PM EST Office [facility] [place] [place] [address] [place] [address] Martínez Lopes MD [address] [place] [address] 09/17/2023 9:40 AM EST Office Visit Dermatology [address] [place] [address] Marycruz Almazan PA-C [address] [place] [address] [place] [address] 09/21/2023 2:30 PM EST Home Visit [facility], [facility] [address] [place] [address] Sarah Vitale, RN [address] [place] [address] 09/27/2023 11:15 AM EST Nutrition Services [facility], [facility] [address] [facility] [place] [address] Lovely Bravo RDN [address] [facility] [place] [address] 09/28/2023 2:30 PM EST Home Visit [facility], [facility] [address] [place] [address] Sarah Vitale, RN [address] [place] [address] 10/03/2023 10:30 AM EST Office Visit Sleep Disorders Ctr [facility] [address] [place] [phone] Sosa Freeman CRNP [address] [place] [address] 10/16/2023 11:30 AM EST Office Visit Gastroenterology, [facility] [address] [place] [address] Lizzette Silva CRNP [address] [place] [address] 12/10/2023 9:20 AM EDT Office Visit Family Medicine [address] [place] [phone] Rhys Humphrey MD [address] [place] [address] [place] [address] 12/27/2023 11:00 AM EDT Office Visit Cardiology [address] [place] [address] Mi Neil PA-C [address] [place] [address] 03/18/2024 9:00 AM EDT Nurse Only Ancillary [address] [place] [address] [place], Nurse Annual Wellness [address] [place] [address] [place] [address] Scheduled Procedures Name Priority Associated Diagnoses Date/Ti [...] D LEVEL ONCE IN A LIFETIME-USE SMARTSET# 03440 Completed 06/29/2020, 03/16/2015 Pneumococcal Vaccine: 65+ Years [...] Documents on File Type Date Recorded Patient Airport Location Manager Expl anation POLST 10/15/2019 3:17 PM POLST POLST 03/05/2019 POLST FORM Advance Directives and Living Will 01/27/2013 LIVING WILL Advance Directives and Living Will 01/27/2013 LIVING WILL Power of Powder And Primer Canning Leader 01/27/2013 POWER OF A TTORNEY Power of Powder And Primer Canning Leader 01/27/2013 POWER OF A TTORNEY Healthcare Agents on File Name Relationship Healthcare Agent Relationship Communication Cydney Benito Other - (no specific identity) Second Alternate Health Care Agent Anyi More Adult Child Health Care Roberth cooper of Powder And Primer Canning Leader Care Teams Miniature Set Constructor Relationship Specialty Start Date End Date Rhys Humphrey MD [address] [place] [address] [place] [phone] PCP - General Family Medicine 06/09/21 documented as of this encounter
--- OUTSIDE RECORDS SUMMARY | 2023-10-29 06:25 | External Medical Summary ---
Author Name Unknown Address Unknown Organization K01:[facility] [place] [facility] [address] [facility] [place] [address] Laboratory Report Ordering Provider Test Date Status GALE SPIVEY 09/04/2023 10:28:02 Final Observation Date Value Abnormality Reference (Units ) Status WBC, Total 09/04/2023 10:28:02 7.50 4.00-10.80 (K/uL) Final RBC 09/04/2023 10:28:02 2.72 3.85-5.15 (M/uL) Final Hemoglobin 09/04/2023 10:28:02 7.2 Below low normal 12.0-15.3 (g/dL) Final HCT 09/04/2023 10:28:02 25.8 Below low normal 36.0-45.2 (%) Final MCV 09/04/2023 10:28:02 94.9 81.5-97.5 (fL) Final MCH 09/04/2023 10:28:02 26.5 27.0-34.0 (pg) Final MCHC 09/04/2023 10:28:02 27.9 32.0-36.0 (g/dL) Final RDW 09/04/2023 10:28:02 13.6 11.5-15.5 (%) Final Platelets 09/04/2023 10:28:02 490 Above high normal 140-400 (K/uL) Final MPV 09/04/2023 10:28:02 9.2 6.6-11.1 (fL) Final Nucleated erythrocytes/100 leukocytes [Ratio] in Blood by Automated count 09/04/2023 10:28:02 0 <=0 (/100 WBCs) Final Performing Location [facility] [place] - [address] [place] [address]
--- OUTSIDE RECORDS SUMMARY | 2023-10-29 06:25 | External Medical Summary ---
Author Name Unknown Address Unknown Organization K01:[facility] [place] [address] [place] [address] Laboratory Report Ordering Provider Test Date Status ANN HARRISON 09/04/2023 10:28:02 Final Observation Date Value Abnormality Reference (Units ) Status Folic Acid 09/04/2023 10:28:02 18.5 >4.5 (ng/ mL) Final Performing Location [facility] - [address] [place] [address]
--- OUTSIDE RECORDS SUMMARY | 2023-10-29 06:25 | External Medical Summary ---
Author Name Unknown Address Unknown Organization K01:[facility] [place] - [address] [place] [address] Laboratory Report Ordering Provider Test Date Status ANN HARRISON 09/04/2023 10:28:02 Final Observation Date Value Abnormality Reference (Units ) Status Iron 09/04/2023 10:28:02 259 Above high normal 33-151 (ug/dL) Final Iron-binding capacity 09/04/2023 10:28:02 355 250-425 (ug/dL) Final Transferrin Sat % 09/04/2023 10:28:02 73 Above high normal 15-55 (%) Final Performing Location [facility] - [address] [place] [address]
--- OUTSIDE RECORDS SUMMARY | 2023-10-29 06:25 | External Medical Summary | Summary of Care ---
Author Name Unknown Organization [facility] Address [address] [place] [address] Phone [phone] Care Team Providers Care Hand Candy Molder Name Role Phone Rhys Humphrey MD Primary Care Provide r Reason for Visit * Reason Onset Date Comments [facility]: Maintenance 09/04/2023 Encounter Details Date Type Department Care Team (Late st Contact Info) Description 09/04/2023 Telephone [facility], [facility] [address] [place] [address] [facility], Nurse [facility] [address] [place] [address] [facility]: Maintenance Allergies [...] before bedtime. 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 Patient triggered [place] [facility] No call needed see other notes today with process control supervisor documented in this encounter Plan of Treatment Upcoming Encounters Date Type Department Care Team (Late st Contact Info) Description 09/05/2023 9:00 AM EST Scheduled Telephone [facility], [place] [address] [place] [address] Coordinator, [facility] [address] [place] [address] 09/06/2023 11:00 AM EST Scheduled Telephone [facility], [facility] [address] [place] [address] [facility] Nurse Triage [address] [place] [address] 09/07/2023 10:30 AM EST Imaging Radiology [address] [place] [address] 09/10/2023 11:45 AM EST Imaging Radiology [address] [place] [address] 09/14/2023 3:15 PM EST Office Visit Hematology/Oncology [address] [place] [address] [place] [address] Martínez Lopes MD [address] [place] [address] 09/17/2023 9:40 AM EST Office Visit Dermatology [address] [place] [address] Marycruz Almazan PA-C [address] [place] [address] [place] [address] 09/21/2023 2:30 PM EST Home Visit [facility], [facility] [address] [place] [address] Sarah Vitale, RN [address] [place] [address] 09/27/2023 11:15 AM EST Nutrition Services [facility], [facility] [address] [facility] [place] [address] Lovely Bravo RDN [address] [facility] [place] [address] 09/28/2023 2:30 PM EST Home Visit [facility], [facility] [address] [place] [address] Sarah Vitale, RN [address] [place] [address] 10/03/2023 10:30 AM EST Office Visit Sleep Disorders Ctr [facility] [address] [place] [address] Sosa Freeman CRNP [address] [place] [address] 10/16/2023 11:30 AM EST Office Visit Gastroenterology, [facility] [address] [place] [address] Lizzette Silva CRNP [address] [place] [address] 12/10/2023 9:20 AM EDT Office Visit Family Medicine [address] [place] [phone] Rhys Humphrey MD [address] [place] [address] [place] [address] 12/27/2023 11:00 AM EDT Office Visit Cardiology [address] [place] [address] Mi Neil PA-C [address] [place] [address] 03/18/2024 9:00 AM EDT Nurse Only Ancillary [address] [place] [address] [place], Nurse Annual Wellness [address] [place] [address] [place] [address] Scheduled Procedures Name Priority Associated Diagnoses Date/Ti [...] D LEVEL ONCE IN A LIFETIME-USE SMARTSET# [id number] Completed 06/29/2020, 03/16/2015 Pneumococcal Vaccine: 65+ Years [...] Documents on File Type Date Recorded Patient Casing Mixer Expl anation POLST 10/15/2019 3:17 PM POLST POLST 03/05/2019 POLST FORM Advance Directives and Living Will 01/27/2013 LIVING WILL Advance Directives and Living Will 01/27/2013 LIVING WILL Power of Game Bird Farmer 01/27/2013 POWER OF A TTORNEY Power of Game Bird Farmer 01/27/2013 POWER OF A TTORNEY Healthcare Agents on File Name Relationship Healthcare Agent Relationship Communication Cydney Benito Other - (no specific identity) Second Alternate Health Care Agent Anyi More Adult Child Health Care Roberth cooper of Game Bird Farmer Care Teams Hand Candy Molder Relationship Specialty Start Date End Date Rhys Humphrey MD [address] [place] [address] [place] [phone] PCP - General Family Medicine 06/09/21 documented as of this encounter
--- OUTSIDE RECORDS SUMMARY | 2023-10-29 06:25 | External Medical Summary | Summary of Care ---
Author Name Unknown Organization [facility] Address [address] [place] [address] Phone [phone] Care Team Providers Care Lapping Machine Tender Name Role Phone Rhys Humphrey MD Primary Care Provide r Reason for Visit * Reason Comments Medical Nutrition Therapy Encounter Details Date Type Department Care Team (Latest Contact Info) Description 09/03/2023 12:30 PM EST Nutrition Services [facility], [facility] [address] [facility] [address] Lovely Bravo, RDN [address] [facility] [address] COPD, group D, by GOLD 2017 classification ([facility])*; Small cell neuroendocrine carcinoma of lung ([facility]) Allergies Active Allergy Reactions Criticality Noted Date Comments Adhesive Tape Other (Please comment),Hives High 09/29/2008 Caused welts Dextromethorphan-Gu aifenesin Neuro complications (Please comment) Medium 12/23/2021 Feels lightheaded/"foggy" documented as of this encounter (statuses as of 09/03/2023) Medications Medication Sig Dispensed Refills Start Date [...] before bedtime. 50 Cap 0 01/18/2021 Active Radbfke-Lthnvgago-Ie nc 333-133-5 MG Oral Tablet Take 1 [...] (Lasix)Indications:C hronic diastolic congestive heart failure ([facility]) One tablet daily with an extra [...] MCG/ACT Inhalation Aerosol Powder Breath Activated (umeclidinium-vilant ed)Indications:GREEN CHAIN OFF BEARER D, moderate (HCC),COPD, group D, by GOLD 2017 classification (HCC) Inhale 1 Puff by mouth in the morning. 30 Each 08/20/2023 Active documented as of this encounter (statuses as of 09/03/2023) Active Problems Problem Noted Date Diagnosed Date [...] as of this encounter (statuses as of 09/03/2023) Resolved Problems Problem Noted Date Diagnosed Date [...] as of this encounter (statuses as of 09/03/2023) Immunizations Name Administration Dates Next Due COVID-19 mRNA, LNP-s, No Pre serve, 2-Dose Series (Nveloped) 07/11/2021,11/14/2020,10/24/2020 Covid-19, Mrna, Lnp-s, Pf, B ivalent, 30 Mcg, IM, 12 yrs and above (Pfizer) 07/21/2022 Pneumococcal Conjugate Vacc, 13 Valent (Prevnar) 03/16/2015 Pneumococcal Conjugate Vacci ne, 20-valent ([id number]) 07/21/2022 Pneumococcal Polysaccharide PPV23 (Pneumovax) 03/05/2019,07/18/2007 SEASONAL [...] as of this encounter Progress Notes * Lawrence Lovely Shilpa, RDN - 09/03/2023 2:39 PM EST Images from the original note were not included. NUTRITION CONSULT - OUTPATIENT FileString Name: Keisha Linares Location: [facility] Date: 09/03/2023 Time: 2:39 PM Patient was identified by name and date. After connecting to the patient via telephone, the patient was identified by name and date of . Patient was then informed that this was a telephone call only visit. The patient agreed to participate. Visit Disposition: Routine follow-up Total call duration was 17 minutes. Reason for Referral: Loss of weight NUTRITION ASSESSMENT: Client History 82 year old female enrolled in [employer] [facility] referred to Registered Dietitian for loss of weight. Patient with CHF, COPD, Last CM RN home visit (08/22/2023) notes "Recent bronchoscopy 08/10- diagnosis small cell lung cancer LLL- Admission to [facility] following bronchoscopy 08/12 with acute hypoxic r espiratory failure/pneumonia- treated with Cefdinir. Discharge home 08/15 " Spoke with Keisha today. Patient states " I have to go to the cancer doctor this month and they will explain". Reports appetite "okay". 24 hour food recall reviewed. Areas of opportunity identified and discussed. Education and reinforcement provided. Pt centered goals established. See full nutrition assessment below. 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 Dyslipidemia, goal LDL below 70 E78.5 Nonrheumatic aortic valve stenosis I35.0 Centrilobular emphysema ([facility]) J43.2 ISELA (obstructive sleep apnea) G47.33 Lichen sclerosus et atrophicus L90.0 Osteopenia of neck of femur M85.859 Iron deficiency E61.1 Persistent insomnia G47.00 Hx of nonmelanoma skin cancer Z85.828 Chronic diastolic congestive heart failure (HCC) I50.32 Other specified peripheral vascular diseases ([facility]) I73.89 History of TIA (transient ischemic attack) Z86.73 History of left hip replacement Z96.642 Nocturnal hypoxemia G47.34 Hypertensive heart disease with chronic diastolic congestive heart failure (HCC) I11.0, I50.32 Ground glass opacity present on imaging of lung R91.8 Major depression in remission ([facility]) F32.5 COPD, group D, by GOLD 2017 classification ([facility]) J44.9 Gastroesophageal reflux disease without esophagitis K21.9 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 ([facility]) C82.22 Chronic insomnia F51.04 Dysfunction of both eustachian tubes H69.93 At risk for falls Z91.81 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 Denies food insecurity. In apartment can purchase meal next door (alf) Barriers To Learning: None Special Education Needs: None Food/Nutrition-Related History Describes typical diet history/24 hr recall Breakfast: Cream of wheat (made with water) and toast, coffee Snacks: None reported Lunch: Beets (light) Snacks: None reported Dinner: Potatoes, vegetable, sometimes chicken, fruit Snacks: Popcorn Drinks: Ensure high protein or body armor or Fairlife (30 grams) * daughter purchases for patient. (every once and a while), juice, ice and water as it melts. (States she is anemic; taking iron in morning), Restaurant meals: rare Alcohol: None Diet Recall/Food Logs Indicate: AREAS FOR IMPROVEMENT: Inadequate calorie intake Inadequate protein intake Food and Nutrient Intake and other pertinent information: as noted above. Food allergies and/or food intolerances: NKFA Pertinent Medications (Current): Current Outpatient Medications Medication Sig Dispense Refill [...] and 1 Capsule before bedtime. 50 Cap Xwcdtbu-Nhayufzuo-Hbho 333-133-5 MG Oral Tablet Take 1 Tablet [...] No current facility-administered medications for this visit. Supplements: Not reviewed this date. Prior Nutrition Counseling: Not asked this date. Physical Activity: Walks hallway (150 steps) 3 x per day. Does exercise class (Sunday morning) Anthropometric Measurements There were no vitals taken for this visit. Wt Readings from Last 15 Encounters: 08/21/23 67.9 kg (149 lb 12.8 oz) [...] 9.6 oz) 10/30/22 73.5 kg (162 lb) 10/06/22 76.7 kg (169 lb) Per [facility] Usual Body Weight: 169 lbs. Weight Change: 4.1% weight loss x ~ 1 month, 11.7% weight loss x ~ 6 months Interpretation of weight change: greater than 7.5% weight loss in 3 months (severe) Weight Goal: No further weight loss. BMI: BMI Readings from Last 1 Encounters: 08/21/23 25.70 kg/m Nutrition-Focused Physical Findings Full nutrition focused physical exam not able to be conducted: Telephonic nutrition assessment. Reports skin intact. Denies issues chewing/swallowing. Denies edema. Denies N/V. Denies C/D. Biochemical Data, Medical Tests, and Procedures Latest Reference Range & Units 07/03/23 15:34 Sodium 135 - 146 mmol/L 139 Potassium 3.5 - 5.1 mmol/L 4.2 Chloride 98 - 107 mmol/L 102 CO2 22 - 32 mmol/L 26 BUN 6 - 20 mg/dL 18 Creatinine 0.5 - 1.0 mg/dL 0.9 Estimated Glomerular Filtration Rate >=60 mL/min 64 Anion Gap 7 - 15 mmol/L 11 Glucose 70 - 120 mg/dL 95 Calcium 8.4 - 10.2 mg/dL 8.7 Protein 6.0 - 8.3 g/dL 6.0 - 8.3 g/dL 6.0 6.0 Hemoglobin AIC Results: Lab Results Component Value Date/Time HEMOGLOBIN A1C - [facility] 5.3 07/07/2021 11:34 AM HEMOGLOBIN A1C - [facility] 6.3 (H) 06/29/2020 12:24 PM HEMOGLOBIN A1C - [facility] 6.0 (H) 09/09/2019 10:06 AM HEMOGLOBIN A1C - [facility] 6.4 (H) 03/05/2019 09:40 AM NUTRITION DIAGNOSIS Suboptimal energy intake related to Inadequate calorie intake, Inadequate protein intake, Lack of appetite awareness as evidenced by Reported diet and/or activity recall, New diagnosis, Weight loss over 1 and 6 months. NUTRITION INTERVENTION: FOOD AND/OR NUTRIENT DELIVERY Meals Snacks Supplements NUTRITION EDUCATION Initial/brief nutrition education NUTRITION COUNSELING Strategies Mailing high calorie, high protein nutrition therapy and recipes, tips on adding calories and protein. Nutrition Prescription: Diet: High calorie/High protein Estimated nutritional needs: Daily Calorie Needs: 2037 - 2377 Kcals (30 - 35 kcals/kg/bw) Daily Protein Needs: 68 - 81 Grams protein (1 - 1.2g/kg/bw) Goals: Increase oral nutrition supplement to daily (4oz AM/ 4 oz PM) Reviewed high calorie/ high protein nutrition therapy. Encouraged to share with neighbor who dose grocery shopping with patient and cooks nightly for her. Dietitian Action: Reviewed sources of calories, protein and increase needs, recommendation for nutrient dense choices. Encouraged to also try "Plus" oral nutrition supplement such as Ensure Plus or Boost Plus. Recommendations to Ordering Provider: Continue current plan of nutrition care. Suspect degree of malnutrition although unable to verify without nutrition focused physical exam. NUTRITION MONITORING AND EVALUATION: The following will be monitored and evaluated at the next visit: Monitor weight. Monitor labs. Review food logs. Monitor goals and progress. Plan:Patient scheduled to return in 3-4 weeks; dietitian phone # given for future reference. 15 minutes Medical Nutrition Therapy 15 min (8-22 min) 30 min (23-37 min) 45 min (38-52 min) 60 min (53-67 min) 75 min (68-82 min) 90 min (83-97 min) 105 min (98-113 min) Time In: 1448 (09/03/23 1448) Time Out: 1505 (09/03/23 1505) Lovely Bravo RDN [facility], [facility] documented in this encounter Plan of Treatment Upcoming Encounters Date Type Department Care Team (Late st Contact Info) Description 09/06/2023 11:00 AM EST [facility] [address] [facility] [place] [address] [facility] Nurse Triage [address] [facility] [place] [address] 09/07/2023 10:30 AM EST Imaging Radiology [address] [facility] [place] [address] 09/10/2023 11:45 AM EST Imaging Radiology [address] [facility] [place] [address] 09/14/2023 3:15 PM EST Office Visit Hematology/Oncology [facility] [address] [facility] [place] [address] Martínez Lopes MD [address] [facility] [place] [address] 09/17/2023 9:40 AM EST Office Visit Dermatology [address] [place] [address] Marycruz Almazan PA-C [address] [place] [address] [place] [address] 09/21/2023 2:30 PM EST Home Visit [facility], [facility] [address] [place] [address] Sarah Vitale, RN [address] [place] [address] 09/27/2023 11:15 AM EST Nutrition Services [facility], [facility] [address] [facility] [place] [address] Lovely Bravo, RDN [address] [facility] [place] [address] 09/28/2023 2:30 PM EST Home Visit [facility], [facility] [address] [place] [address] Sarah Vitale, RAYNA [address] [place] [address] 10/03/2023 10:30 AM EST Office Visit [facility] Disorders [facility]tr [facility] [address] [place] [phone] Sosa Freeman CRNP [address] [place] [address] 10/16/2023 11:30 AM EST Office Visit Gastroenterology, [facility] [address] [place] [address] Lizzette Silva CRNP [address] [place] [address] 12/10/2023 9:20 AM EDT Office Visit Family Medicine [address] [place] [phone] Rhys Humphrey MD [address] [place] [address] [place] [address] 12/27/2023 11:00 AM EDT Office Visit Cardiology [address] [place] [address] Mi Neil, CECI [address] [place] [address] 03/18/2024 9:00 AM EDT Nurse Only Ancillary [address] [place] [address] [place], Nurse Annual [address] [place] [address] Scheduled Procedures Name Priority Associated Diagnoses Date/Ti [...] D LEVEL ONCE IN A LIFETIME-USE SMARTSET# [id number] Completed 06/29/2020, 03/16/2015 Pneumococcal Vaccine: 65+ Years [...] D, by GOLD 2017 classification (HCC)- Primary 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 in this encounter Advance Directives Documents on File Type Date Recorded Patient Ripsaw Grader Expl anation POLST 10/15/2019 3:17 PM POLST POLST 03/05/2019 POLST FORM Advance Directives and Living Will 01/27/2013 LIVING WILL Advance Directives and Living Will 01/27/2013 LIVING WILL Power of Awning Erector 01/27/2013 POWER OF A TTORNEY Power of Awning Erector 01/27/2013 POWER OF A TTORNEY Healthcare Agents on File Name Relationship Healthcare Agent Relationship Communication Cydney Benito Other - (no specific identity) Second Alternate Health Care Agent Anyi More Adult Child Health Care Roberth r of Awning Erector Care Teams Lapping Machine Tender Relationship Specialty Start Date End Date Rhys Humphrey MD [address] [place] [address] [place] [phone] PCP - General Family Medicine 06/09/21 documented as of this encounter
--- OUTSIDE RECORDS SUMMARY | 2023-10-29 06:25 | External Medical Summary | Summary of Care ---
Author Name Unknown Organization [facility] Address [address] [place] [address] Phone [phone] Care Team Providers Care Enamel Machine Operator Name Role Phone Rhys Humphrey MD Primary Care Provide r Reason for Visit * Reason Onset Date Comments [facility]: Acute 09/04/2023 Encounter Details Date Type Department Care Team (Late st Contact Info) Description 09/04/2023 Telephone [facility], [facility] [address] [place] [address] [facility], Nurse [address] [place] [address] [facility]: Acute Allergies Active Allergy Reactions Criticality Noted Date [...] before bedtime. 50 Cap 0 01/18/2021 Active Zwbwdxp-Afxsvnfkl-Mp nc 333-133-5 MG Oral Tablet Take 1 [...] MCG/ACT Inhalation Aerosol Powder Breath Activated (umeclidinium-vilant ed)Indications:MESSENGER OFFICE D, moderate (HCC),COPD, group D, by GOLD [...] mRNA, LNP-s, No Pre serve, 2-Dose Series ([facility]) 07/11/2021,11/14/2020,10/24/2020 Covid-19, Mrna, Lnp-s, Pf, B ivalent, 30 Mcg, IM, 12 yrs and above ([facility]) 07/21/2022 Pneumococcal Conjugate Vacc, 13 Valent (Prevnar) 03/16/2015 Pneumococcal Conjugate Vacci ne, 20-valent ([id number]) 07/21/2022 Pneumococcal Polysaccharide PPV23 (Pneumovax) 03/05/2019,07/18/2007 SEASONAL [...] Telephone Encounter - Camila Thakur RN - 09/04/2023 8:33 AM EST [facility] lodging manager Acute Call Date: 09/04/2023 Time: 8:42 AM Name: Keisha Linares : 1940 Caller: Keisha Relationship to pt- self Chief Complaint Patient presents with [facility]: Acute HPI: Keisha Linares is a 82 year old female that is calling [facility] Intake to report kathi horse leg cramps the past 3 nights and she takes Gabapentin which is not effective. Nursing Assessment: Patient's chief complaint for this call: Pt c/o kathi horse leg cramps of BLE last night, lasting all night long. It has happened for 3 nights straight per pt. Cramps in the calves which is painful, very sore today. She tried standing barefoot on a cold floor, tried walking it off, tried ice and heat. Nothing helps. She denies having any redness, warmth or swelling to her BLE. She states she is exhausted. She denies having any NVD lately. Pt does have [facility] BP and her morning BP 75/34 P 101. The pt states that she was standing at the time of that reading. She denies feeling lightheaded or dizzy, denies feeling more SOB than her baseline, denies chest pain or palpitations. lodging manager requested the pt re check her BP while on the call. BP 110/37 P 105 while seated at time of call. She has already eaten her breakfast and taken her morning medications. Pain Has pain Pain level: not quantified Location: both calves Quality of Pain: soreness Does the pain radiate: No Baseline Assessment Able to performing ADLs at baseline (walking, daily tasks, etc.): Yes Chief Complaint is related to a chronic condition: Unknown Patient prescribed oxygen? Yes, 2.5L/min Patient has been ordered DME equipment (assistive devices, respiratory equipment, etc.): Yes Describe DME devices: cpap, nebulizer, walker Patient is using DME device as directed: Yes Medication Reconciliation: (See medication list) Received flu shot this season: Yes Taking medication as ordered: Yes Medications ordered/taking to treat reason for call: No Heart failure symptoms: No COPD exacerbation symptoms: No Reinforcement Education: Safety- continue to use walker for all ambulation May take Tylenol as needed for pain May try OTC Shaw-rivera or Icy-hot to apply to BLE Monitor for worsening symptoms- SOB, chest pain, weakness, lethargy, redness, warmth or swelling ofBLE, lightheaded or dizziness, palpitations Treatment/Plan: (need to report) Level of call: Acute Appointment scheduled for same day: No Provider Name: n/a Treatment plan until appointment: as above Will send to Provider for orders/ recommendations Scheduled 24/48 hr f/u phone calls Call back instructions provided to patient. Camila BAUMAN, RN [facility] Intake Triage Coordinator [phone] documented in this encounter Plan of Treatment Upcoming Encounters Date Type Department Care Team (Late st Contact Info) Description 09/05/2023 9:00 AM EST Scheduled Telephone [facility] [address] [place] [address] Coordinator, [facility] [address] [place] [address] 09/06/2023 11:00 AM EST Scheduled Telephone [facility] [place], [facility] [address] [place] [address] [facility] Nurse Triage [address] [place] [address] 09/07/2023 10:30 AM EST Imaging Radiology [facility] [address] [place] [address] 09/10/2023 11:45 AM EST Imaging Radiology [facility] [facility] [address] [place] [address] 09/14/2023 3:15 PM EST Office Visit Hematology/Oncology [facility] [address] [place] [address] Martínez Lopes MD [address] [place] [address] 09/17/2023 9:40 AM EST Office Visit Dermatology [address] [place] [address] Marycruz Almazan PA-C [address] [place] [address] [place] [address] 09/21/2023 2:30 PM EST Home Visit [facility], [facility] [address] [place] [address] Sarah Vitale, RN [address] [place] [address] 09/27/2023 11:15 AM EST Nutrition Services [facility], [facility] [address] [facility] [place] [address] Lovely Bravo, SHAKIRN [address] [facility] [place] [address] 09/28/2023 2:30 PM EST Home Visit [facility], [facility] [address] [place] [address] Sarah Vitale, RN [address] [place] [address] 10/03/2023 10:30 AM EST Office Visit [facility] Disorders Ctr [facility] [address] [place] [phone] Sosa Freeman CRNP [address] [place] [address] 10/16/2023 11:30 AM EST Office Visit Gastroenterology, [facility] [address] [place] [address] Lizzette Silva CRNP [address] [place] [address] 12/10/2023 9:20 AM EDT Office Visit Family Medicine [address] [place] [phone] Rhys Humphrey MD [address] [place] [address] [place] [address] 12/27/2023 11:00 AM EDT Office Visit Cardiology [address] [place] [address] Mi Neil, PAMateo [address] [place] [address] 03/18/2024 9:00 AM EDT Nurse Only Ancillary [address] [place] [address] [place], Nurse Annual Wellness [address] [place] [address] [place] [address] Scheduled Procedures Name Priority Associated Diagnoses Date/Ti [...] D LEVEL ONCE IN A LIFETIME-USE SMARTSET# [id number] Completed 06/29/2020, 03/16/2015 Pneumococcal Vaccine: 65+ Years [...] Documents on File Type Date Recorded Patient Show Girl Expl anation POLST 10/15/2019 3:17 PM POLST POLST 03/05/2019 POLST FORM Advance Directives and Living Will 01/27/2013 LIVING WILL Advance Directives and Living Will 01/27/2013 LIVING WILL Power of Cook Pressure 01/27/2013 POWER OF A TTORNEY Power of Cook Pressure 01/27/2013 POWER OF A TTORNEY Healthcare Agents on File Name Relationship Healthcare Agent Relationship Communication Cydney Benito Other - (no specific identity) Second Alternate Health Care Agent Anyi More Adult Child Health Care Roberth r of Cook Pressure Care Teams Enamel Machine Operator Relationship Specialty Start Date End Date Rhys Humphrey MD [address] [place] [address] [place] [address] PCP - General Family Medicine 06/09/21 documented as of this encounter
--- OUTSIDE RECORDS SUMMARY | 2023-10-29 06:25 | External Medical Summary ---
Author Name Unknown Address Unknown Organization K01:[facility] [address] [facility] [address] [place] [address] Laboratory Report Ordering Provider Test Date Status GALE SPIVEY 09/04/2023 10:28:02 Final Observation Date Value Abnormality Reference (Units ) Status BUN 09/04/2023 10:28:02 15 6-20 (mg/dL) Final Creatinine 09/04/2023 10:28:02 0.9 0.5-1.0 (mg/dL) Final Glomerular filtration rate/1.73 sq M.predicted [Volume Rate/Area] in Serum, Plasma or Blood by Creatinine-based formula (CKD-EPI) 09/04/2023 10:28:02 67 >=60 (mL/min) Final eGFR is calculated based on the CKD-EPI 2020 equation SODIUM 09/04/2023 10:28:02 139 135-146 (m mol/L) Final Potassium 09/04/2023 10:28:02 3.9 3.5-5.1 (m mol/L) Final Cl 09/04/2023 10:28:02 101 98-107 (mm ol/L) Final CO2 09/04/2023 10:28:02 24 22-32 (mmo l/L) Final Anion gap 09/04/2023 10:28:02 14 7-15 (mmol /L) Final Glucose 09/04/2023 10:28:02 118 70-120 (mg /dL) Final Calcium 09/04/2023 10:28:02 8.7 8.4-10.2 ( mg/dL) Final Performing Location [facility] [address] [place] [address]
--- OUTSIDE RECORDS SUMMARY | 2023-10-29 06:25 | External Medical Summary ---
Author Name Unknown Address Unknown Organization [id number]:[facility] [place] - [address] [facility] [address] Laboratory Report Ordering Provider Test Date Status GALE SPIVEY 09/04/2023 10:28:02 Final Observation Date Value Abnormality Reference (Units ) Status SYNC LEUKOCYTES IN BLOOD BY AUTOMATED COUNT 09/04/2023 10:28:02 7.50 4.00-10.80 (K/uL) Final Segs 09/04/2023 10:28:02 56.3 40.0-75.0 (%) Final Lymphs % 09/04/2023 10:28:02 19.5 18.0-42.0 (%) Final Monos 09/04/2023 10:28:02 12.8 Above high normal 1.0-11.0 (%) Final Eosinophils 09/04/2023 10:28:02 10.4 Above high normal 0.0-6.0 (%) Final Basos 09/04/2023 10:28:02 0.7 0.0-2.0 (%) Final Immature Granulocyte, Percent 09/04/2023 10:28:02 0.3 0.0-2.0 (%) Final Absolute Segs 09/04/2023 10:28:02 4.23 1.80-7.70 (K/uL) Final Lymphs, absolute 09/04/2023 10:28:02 1.46 1.00-4.80 (K/ul) Final Monos, Abs 09/04/2023 10:28:02 0.96 0.00-1.10 (K/uL) Final Eos, Abs 09/04/2023 10:28:02 0.78 Above high normal 0.00-0.70 (K/uL) Final Basos, Abs 09/04/2023 10:28:02 0.05 0.00-0.20 (K/uL) Final Immature Granulocytes, Number 09/04/2023 10:28:02 0.02 0.00-0.20 (K/uL) Final Performing Location [facility] [place] - [facility] [address]. [facility] [address]
--- OUTSIDE RECORDS SUMMARY | 2023-10-29 06:25 | External Medical Summary | Summary of Care ---
Author Name Unknown Organization [facility] Address [address] [place] [address] Phone [phone] Care Team Providers Care Casino Surveillance Officer Name Role Phone Rhys Humphrey MD Primary Care Provide r Reason for Visit * Reason Onset Date Comments [facility]: Acute 09/04/2023 Encounter Details Date Type Department Care Team (Late st Contact Info) Description 09/04/2023 Telephone [facility], [facility] [address] [place] [address] [facility], [place] [address] [place] [address] [facility]: Acute Allergies Active Allergy [...] before bedtime. 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 Received orders from Dr Kerr. Pt does have [facility] BP cuff and scale. electronic warfare technician did not include the data in the TE. Read the entire message to the pt. She will go to the [facility] lab today to get the labs completed- she will have her grand daughter drive her. She will also go to the pharmacy and discuss with the pharmacist about OTC cream for leg cramps andwhat dose of Magnesium would be recommended to take at bedtime. Camila BAUMAN, RN [facility] Intake Triage Coordinator [phone] * Addendum Note - Patric Kerr DO - 09/04/2023 9:28 AM ESTAddended by: PATRIC KERR on: 09/04/2023 09:28 AM Modules accepted: Orders * Telephone Encounter - Patric Kerr DO - 09/04/2023 9:20 AM EST [facility] Remote Medical Command [facility] Subprogram: Focused Care Management (3-9 months) Recommendations: I would recommend labs for her +/- an eval. Not sure if she gets mobile labs or not I would recommend OTC creams for leg cramps and consider dedicated Magnesium tab at bedtime. If she is able to have one and has connectivity, would recommend [facility] BP cuff as well Orders: Plan CBC with WBC Differential Basic Metabolic Panel Magnesium To Do: Please see below for follow up items to be completed and correspondence: BRE to Keisha's Care Team electronic warfare technician Pool please work on the following: contact the caller with advice and orders as above Patric Kerr DO Remote Medical Command - [facility] 09/04/2023 Scheduled appointments in the next 60 days: Future Appointments-next 60 days Date/Time Provider Specialty Dept Phone 09/05/2023 9:00 AM Josephine Abdi Field [facility] [phone] 09/06/2023 11:00 AM Josephine Viera Nurse Triage [facility] [phone] 09/07/2023 10:30 AM (Arrive by 10:00 AM) MR2 [place] [place] Radiology [phone] 09/10/2023 11:45 AM PET Radiology [phone] 09/14/2023 3:15 PM (Arrive by 3:00 PM) Martínez Lopes MD Hematology Oncology [phone] 09/17/2023 9:40 AM (Arrive by 9:25 AM) Marycruz Almazan PA-C Dermatology [phone] 09/21/2023 2:30 PM Sarah Vitale RN [facility] [phone] 09/27/2023 11:15 AM Lovely Bravo RDN [facility] [phone] 09/28/2023 2:30 PM Sarah Vitale RN [facility] [phone] 10/03/2023 10:30 AM (Arrive by 10:15 AM) Sosa Freeman CRNP Sleep Disorders [phone] 10/16/2023 11:30 AM (Arrive by 11:15 AM) Lizzette Silva CRNP Gastroenterology [phone] 12/10/2023 9:20 AM (Arrive by 9:05 AM) Rhys Humphrey MD Family Medicine [phone] 12/27/2023 11:00 AM (Arrive by 10:45 AM) Mi Neil PA-C Cardiology [phone] 03/18/2024 9:00 AM Nurse [place] [facility] Ancillary [phone] * Telephone Encounter - Camila Thakur RN - 09/04/2023 8:33 AM EST [facility] electronic warfare technician Acute Call Date: 09/04/2023 Time: 8:42 AM Name: Keisha Linares : 1940 Caller: Keisha Relationship to pt- self Chief Complaint [facility] with [facility]: Acute HPI: Keisha Linares is a 82 year old female that is calling [facility] Intake to report kathi horse [...] her baseline, denies chest pain or palpitations. electronic warfare technician requested the pt re check her BP [...] instructions provided to patient. Camila BAUMAN, RN [facility] Intake Triage Coordinator [phone] documented in this encounter Plan of Treatment Upcoming Encounters Date Type Department Care Team (Late st Contact Info) Description 09/05/2023 9:00 AM EST Scheduled Telephone [facility], [facility] [address] [place] [address] Coordinator, [facility] [address] [place] [place] [address] 09/06/2023 11:00 AM EST Scheduled Telephone [facility], [facility] [address] [place] [address] [facility] Nurse Triage [address] [place] [address] 09/07/2023 10:30 AM EST Imaging Radiology [address] [place] [address] 09/10/2023 11:45 AM EST Imaging Radiology [facility] [address] [place] [address] 09/14/2023 3:15 PM EST Office Visit Hematology/Oncology [facility] [address] [place] [address] Martínez Lopes MD [address] [place] [address] 09/17/2023 9:40 AM EST Office Visit Dermatology [address] [place] [address] Marycruz Almazan PA-C [address] [place] [address] [place] [address] 09/21/2023 2:30 PM EST Home Visit [facility], [facility] [address] [place] [address] Sarah Vitale, RN [address] [place] [address] 09/27/2023 11:15 AM EST Nutrition Services [facility], [facility] [address] [facility] [place] [address] Lovely Bravo, SHAKIRN [address] [facility] [place] [address] 09/28/2023 2:30 PM EST Home Visit [facility], [facility] [address] [place] [address] Sarah Vitale, RN [address] [place] [address] 10/03/2023 10:30 AM EST Office Visit Sleep Disorders Ctr [facility] [address] [place] [phone] Sosa Freeman CRNP [address] [place] [address] 10/16/2023 11:30 AM EST Office Visit Gastroenterology, [facility] [address] [place] [address] Lizzette Silva CRNP [address] [place] [address] 12/10/2023 9:20 AM EDT Office Visit Family Medicine [address] [place] [phone] Rhys Humphrey MD [address] [place] [address] [place] [address] 12/27/2023 11:00 AM EDT Office Visit Cardiology [address] [place] [address] Mi Neil, CECI [address] [place] [address] 03/18/2024 9:00 AM EDT Nurse Only Ancillary [address] [place] [address] [place], Nurse [facility] [address] [place] [address] [place] [address] Scheduled Orders Name Type Priority Associated Diagnoses Orde r Schedule CBC WITH WBC DIFFERENTIAL Lab Routine Leg cramps Expected: 09/04/2023 (Approximate), Expires: 09/04/2024 BASIC METABOLIC PANEL Lab Routine Leg cramps Expected: 09/04/2023 (Approximate), Expires: 09/04/2024 MAGNESIUM Lab Routine Leg cramps Expected: 09/04/2023 (Approximate), Expires: 09/04/2024 Scheduled Procedures Name Priority [...] D LEVEL ONCE IN A LIFETIME-USE SMARTSET# 24943 Completed 06/29/2020, 03/16/2015 Pneumococcal Vaccine: 65+ Years [...] of this encounter Visit Diagnoses Diagnosis Leg cramps- Primary Cramp of limb documented in this encounter Advance Directives Documents on File Type Date Recorded Patient Satellite Dish Repairer Expl anation POLST 10/15/2019 3:17 PM POLST POLST 03/05/2019 POLST FORM Advance Directives and Living Will 01/27/2013 LIVING WILL Advance Directives and Living Will 01/27/2013 LIVING WILL Power of Drop Hammer Pile Driver Operator 01/27/2013 POWER OF A TTORNEY Power of Drop Hammer Pile Driver Operator 01/27/2013 POWER OF A TTORNEY Healthcare Agents on File Name Relationship Healthcare Agent Relationship Communication Cydney Benito Other - (no specific identity) Second Alternate Health Care Agent Anyi More Adult Child Health Care Roberth r of Drop Hammer Pile Driver Operator Care Teams Casino Surveillance Officer Relationship Specialty Start Date End Date Rhys Humphrey MD [address] [place] [address] [place] [address] PCP - General Family Medicine 06/09/21 documented as of this encounter
--- OUTSIDE RECORDS SUMMARY | 2023-10-29 06:25 | External Medical Summary | Summary of Care ---
Author Name Unknown Organization [facility] Address [address] [place] [address] Phone [phone] Care Team Providers Care Vp Ad Sales West Name Role Phone Rhys Humphrey MD Primary Care Provide r Reason for Visit * Reason Onset Date Comments [facility]: Maintenance 09/03/2023 Encounter Details Date Type Department Care Team (Late st Contact Info) Description 09/03/2023 Telephone [facility], [facility] [address] [place] [address] [facility], Nurse [facility] [address] [place] [address] [facility]: Maintenance Allergies [...] before bedtime. 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 Spoke to patient regarding concerns for lower Bps and elevated HRs + AMC Patient states she feels fine no sx related to BP and HR Repeat vitals staff internist office based only: BP 120/53,HR 89,O2sat 98% 2 LPM NC cont Patient takes 50mg cozaar daily along with diuretics Advised pt to monitor Take BP in am then repeat 2 hrs after am/BP medications and make log Pt aware if BP consitently below 100 systolic may need med adjustment Patient does express she feels depressed at times. Denies suicidal/homicidal thoughts DTR currently with patient Patient states she talks to her neighbor sometimes [facility] referral offered. Pt acceptable to option Internal order placed Please schedule appt with patient Patient aware to call [facility] for any additional concerns Melissa Almaraz RN, BSN [facility] top polisherBleach Plant Operator documented in this encounter Plan of Treatment Upcoming Encounters Date Type Department Care Team (Late st Contact Info) Description 09/06/2023 11:00 AM EST Scheduled Telephone [facility], [facility] [address] [place] [address] [facility] Nurse Triage [address] [place] [address] 09/07/2023 10:30 AM EST Imaging Radiology [address] [place] [address] 09/10/2023 11:45 AM EST Imaging Radiology [address] 132 [facility] [place] [address] 09/14/2023 3:15 PM EST Office Visit Hematology/Oncology [facility] [address] [place] [address] Martínez Lopes MD [address] [place] [address] 09/17/2023 9:40 AM EST Office Visit Dermatology [address] [place] [address] Marycruz Almazan PA-C [address] [place] [address] [place] [address] 09/21/2023 2:30 PM EST Home Visit [facility], [facility] [address] [place] [address] Sarah Vitale, RN [address] [place] [address] 09/27/2023 11:15 AM EST Nutrition Services [facility], [facility] [address] [facility] [place] [address] Lovely Bravo, SHAKIRN [address] [facility] [place] [address] 09/28/2023 2:30 PM EST Home Visit [facility], [facility] [address] [place] [address] Sarah Vitale, RN [address] [place] [address] 10/03/2023 10:30 AM EST Office Visit Sleep Disorders Ctr [facility] [address] [place] [phone] Sosa Freeman CRNP [address] [place] [address] 10/16/2023 11:30 AM EST Office Visit Gastroenterology, [facility] [address] [place] [address] Lizzette Silva CRNP [address] [address] 12/10/2023 9:20 AM EDT Office Visit Family Medicine [address] [place] [phone] Rhys Humphrey MD [address] [place] [address] [place] [address] 12/27/2023 11:00 AM EDT Office Visit Cardiology [address] [place] [address] Mi Neil PA-C [address] [place] [address] 03/18/2024 9:00 AM EDT Nurse Only Ancillary [address] [place] [address] [place], Nurse [facility] [address] [place] [address] [place] [address] Scheduled Procedures Name Priority Associated Diagnoses Date/Ti [...] D LEVEL ONCE IN A LIFETIME-USE SMARTSET# 52589 Completed 06/29/2020, 03/16/2015 Pneumococcal Vaccine: 65+ Years [...] as of this encounter Visit Diagnoses Diagnosis Screening for depression- Primary documented in this encounter Advance Directives Documents on File Type Date Recorded 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 Expl anation POLST 10/15/2019 3:17 PM POLST POLST 03/05/2019 POLST FORM Advance Directives and Living Will 01/27/2013 LIVING WILL Advance Directives and Living Will 01/27/2013 LIVING WILL Power of Beef Cattle Specialist 01/27/2013 POWER OF A TTORNEY Power of Beef Cattle Specialist 01/27/2013 POWER OF A TTORNEY Healthcare Agents on File Name Relationship Healthcare Agent Relationship Communication Cydney Benito Other - (no specific identity) Second Alternate Health Care Agent Anyi More Adult Child Health Care Roberth r of Beef Cattle Specialist Care Teams Vp Ad Sales West Relationship Specialty Start Date End Date Rhys Humphrey MD [address] [place] [address] [place] [address] PCP - General Family Medicine 06/09/21 documented as of this encounter
--- OUTSIDE RECORDS SUMMARY | 2023-10-29 06:25 | External Medical Summary | Summary of Care ---
Author Name Unknown Organization [facility] Address [address] [place] [address] Phone [phone] Care Team Providers Care Blanket Cutter Hand Name Role Phone Rhys Humphrey MD Primary Care Provide r Reason for Visit * Reason Onset Date Comments [facility]: Maintenance 09/03/2023 Encounter Details Date Type Department Care Team (Late st Contact Info) Description 09/03/2023 Telephone [facility], [facility] [address] [place] [address] [facility], Nurse [facility] [address] [place] [address] [facility]: Maintenance Allergies Active Allergy [...] before bedtime. 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),COPD, group D, by [...] Medication Regimen o Other: anoro, arnuity, singulair, dukarelbs Self-Management plan o Prednisone 40mg daily for [...] Obstructive sleep apnea 11/22/2011 03/0 06/2018 Overview: 2/22/12 -- auto CPAP 5-15 01/15/14 [...] mRNA, LNP-s, No Pre serve, 2-Dose Series ([email or web address]) 07/11/2021,11/14/2020,10/24/2020 Covid-19, Mrna, Lnp-s, Pf, B ivalent, 30 Mcg, IM, 12 yrs and above ([email or web address]) 07/21/2022 Pneumococcal Conjugate Vacc, 13 Valent (Prevnar) 03/16/2015 Pneumococcal Conjugate Vacci ne, 20-valent ([id number]) 07/21/2022 Pneumococcal Polysaccharide PPV23 (Pneumovax) 03/05/2019,07/18/2007 SEASONAL [...] encounter Miscellaneous Notes * Addendum Note - Jayson Armando RDN - 09/03/2023 3:09 PM EST Addended by: JAYSON ARMANDO on: 09/03/2023 03:09 PM Modules accepted: Level of Service * Telephone Encounter - Jayson Armando RDN - 09/03/2023 3:07 PM EST Spoke with patient during nutrition assessment. Questions regarding BP readings. Patient is home. Can be reached at [phone]. Thank you BULL Evans, ANIBAL, LDN Clinical Dietitian [facility] 09/03/2023 3:08 PM * Telephone Encounter - Angeles Mehta LPN - 09/03/2023 10:29 AM EST Images from the original note were not included. [facility] Remote Patient Monitoring Unable to contact patient: Trigger type: Abnormal reading(s): Device(s) Triggered: AMC (Advanced Monitored Caregiving): Pulse Rate: Pulse: 114 Trigger priority per AMC: high Call pt LMOM documented in this encounter Plan of Treatment Upcoming Encounters Date Type Department Care Team (Late st Contact Info) Description 09/06/2023 11:00 AM EST Scheduled Telephone [facility], [address] [place] [address] [facility] Nurse Triage 132 [facility] [place] [address] 09/07/2023 10:30 AM EST Imaging Radiology [address] [facility] [place] [address] 09/10/2023 11:45 AM EST Imaging Radiology [address] 132 [facility] [place] [address] 09/14/2023 3:15 PM EST Office Visit Hematology/Oncology [facility] [address] [place] [address] Martínez Lopes MD [address] [place] [address] 09/17/2023 9:40 AM EST Office Visit Dermatology [address] [place] [address] Marycruz Almazan PA-C [address] [place] [address] [place] [address] 09/21/2023 2:30 PM EST Home Visit [facility], [facility] [address] [facility] [place] [address] Sarah Vitale RN 132 [facility] [place] [address] 09/27/2023 11:15 AM EST Nutrition Services [facility], [facility] [address] [facility] [place] [address] Jayson Armando RDN [address] [facility] [place] [address] 09/28/2023 2:30 PM EST Home Visit [facility], [facility] 132 [facility] [place] [address] Sarah Vitale, RAYNA [address] [place] [address] 10/03/2023 10:30 AM EST Office Visit Sleep Disorders Ctr [facility] [address] [place] [phone] Sosa Freeman CRNP [address] [place] [address] 10/16/2023 11:30 AM EST Office Visit Gastroenterology, [facility] [address] [place] [address] Lizzette Silva CRNP [address] [place] [address] 12/10/2023 9:20 AM EDT Office Visit Family Medicine [address] [place] [phone] Rhys Humphrey MD [address] [place] [address] [place] [address] 12/27/2023 11:00 AM EDT Office Visit Cardiology [address] [place] [address] Mi Neil PA-C [address] [place] [address] 03/18/2024 9:00 AM EDT Nurse Only Ancillary [address] [place] [address] [place], Nurse Annual [address] [place] [address] Scheduled Procedures Name Priority Associated Diagnoses Date/Ti [...] D LEVEL ONCE IN A LIFETIME-USE SMARTSET# 17341 Completed 06/29/2020, 03/16/2015 Pneumococcal Vaccine: 65+ Years [...] Documents on File Type Date Recorded Patient Cream Separator Operator Expl anation POLST 10/15/2019 3:17 PM POLST POLST 03/05/2019 POLST FORM Advance Directives and Living Will 01/27/2013 LIVING WILL Advance Directives and Living Will 01/27/2013 LIVING WILL Power of Multi Media Specialist 01/27/2013 POWER OF A TTORNEY Power of Multi Media Specialist 01/27/2013 POWER OF A TTORNEY Healthcare Agents on File Name Relationship Healthcare Agent Relationship Communication Cydney Benito Other - (no specific identity) Second Alternate Health Care Agent Anyi More Adult Child Health Care Roberth r of Multi Media Specialist Care Teams Blanket Cutter Hand Relationship Specialty Start Date End Date Rhys Humphrey MD [address] [place] [address] [place] [phone] PCP - General Family Medicine 06/09/21 documented as of this encounter
--- OUTSIDE RECORDS SUMMARY | 2023-10-29 06:25 | External Medical Summary | Summary of Care ---
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 50 Cap 0 01/18/2021 Active Mqhvavi-Qkztzbrid-Jd nc 333-133-5 MG Oral Tablet Take 1 [...] D, by GOLD 2017 classification ([facility]) Inhale 3 mL via nebulizer every [...] Tablet (Lasix)Indications:C hronic diastolic congestive heart failure ([facility]) One tablet daily with an extra tablet [...] MCG/ACT Inhalation Aerosol Powder Breath Activated (umeclidinium-vilant ed)Indications:CHECK EXAMINER D, moderate (HCC),COPD, group D, by GOLD [...] mRNA, LNP-s, No Pre serve, 2-Dose Series ([employer]) 07/11/2021,11/14/2020,10/24/2020 Covid-19, Mrna, Lnp-s, Pf, B ivalent, 30 Mcg, IM, 12 yrs and above ([employer]) 07/21/2022 Pneumococcal Conjugate Vacc, 13 Valent (Prevnar) 03/16/2015 Pneumococcal Conjugate Vacci ne, 20-valent ([id number]) 07/21/2022 Pneumococcal Polysaccharide PPV23 (Pneumovax) 03/05/2019,07/18/2007 SEASONAL [...] encounter Miscellaneous Notes * Addendum Note - Patric Kerr DO - 09/04/2023 9:28 AM ESTAddended by: PATRIC KERR on: 09/04/2023 09:28 AM Modules accepted: Orders * Telephone Encounter - Patric Kerr DO - 09/04/2023 9:20 AM EST [facility] Remote Medical Command Adali Mcneal Subprogram: Focused Care Management (3-9 months) Recommendations: I would recommend labs for her +/- an eval. Not sure if she gets mobile labs or not I would recommend OTC creams for leg cramps and consider dedicated Magnesium tab at bedtime. If she is able to have one and has connectivity, would recommend AMC BP cuff as well Orders: Plan CBC with WBC Differential Basic Metabolic Panel Magnesium To Do: Please see below for follow up items to be completed and correspondence: BRE to Keisha's Care Team thermal cutting tracer machine operator Pool please work on the following: contact the caller with advice and orders as above Patric Kerr DO Remote Medical Command - [facility] 09/04/2023 Scheduled appointments in the next 60 days: Future Appointments-next 60 days Date/Time Provider Specialty Dept Phone 09/05/2023 9:00 AM CoordinatorJosephine Field [facility] [phone] 09/06/2023 11:00 AM Josephine Viera Nurse Triage [facility] [phone] 09/07/2023 10:30 AM (Arrive by 10:00 AM) MR2 [facility] Radiology [phone] 09/10/2023 11:45 AM PET Radiology [phone] 09/14/2023 3:15 PM (Arrive by 3:00 PM) Martínez Lopes MD Hematology Oncology [phone] 09/17/2023 9:40 AM (Arrive by 9:25 AM) Marycruz Almazan PA-C Dermatology [phone] 09/21/2023 2:30 PM Sarah Vitale RN [facility] [phone] 09/27/2023 11:15 AM Lovely Bravo RDN [facility] [phone] 09/28/2023 2:30 PM Sarah Vitale RN [facility] [phone] 10/03/2023 10:30 AM (Arrive by 10:15 AM) Sosa Freeman CRNP Sleep Disorders [phone] 10/16/2023 11:30 AM (Arrive by 11:15 AM) Lizzette Silva CRNP Gastroenterology [phone] 12/10/2023 9:20 AM (Arrive by 9:05 AM) Rhys Humphrey MD Family Medicine [phone] 12/27/2023 11:00 AM (Arrive by 10:45 AM) Mi Neil PA-C Cardiology [phone] 03/18/2024 9:00 AM Nurse Stanton [facility] Anc[facility] [phone] * Telephone Encounter - Camila Thakur RN - 09/04/2023 8:33 AM EST [facility] thermal cutting tracer machine operator Acute Call Date: 09/04/2023 Time: 8:42 AM Name: Keisha Linares : 1940 Caller: Keisha Relationship to pt- self Chief Complaint Patient presents with [facility]: Acute HPI: Keisha Linares is a 82 year old female that is calling [facility] Int[facility] to report kathi horse [...] her baseline, denies chest pain or palpitations. thermal cutting tracer machine operator requested the pt re check her BP [...] instructions provided to patient. Camila BAUMAN, RN [facility] Intake Triage Coordinator [phone] documented in this encounter Plan of Treatment Upcoming Encounters Date Type Department Care Team (Late st Contact Info) Description 09/05/2023 9:00 AM EST Scheduled Telephone [facility], [facility] [address] [facility] [place] [address] Coordinator, [facility] [address] [place] [address] 09/06/2023 11:00 AM EST Scheduled Telephone [facility], [facility] [address] [place] [address] [facility] Nurse Triage [address] [facility] [place] [address] 09/07/2023 10:30 AM EST Imaging Radiology [address] 132 [facility] [place] [address] 09/10/2023 11:45 AM EST Imaging Radiology [address] 132 [facility] [place] [address] 09/14/2023 3:15 PM EST Office Visit Hematology/Oncology [facility] [address] [facility] [place] [address] Martínez Lopes MD [address] [place] [address] 09/17/2023 9:40 AM EST Office Visit Dermatology [address] [place] [address] Marycruz Almazan PA-C [address] [place] [address] [place] [address] 09/21/2023 2:30 PM EST Home Visit [facility], [facility] [address] [place] [address] Sarah Vitale, RAYNA [address] [place] [address] 09/27/2023 11:15 AM EST Nutrition Services [facility], [facility] [address] [facility] [place] [address] Lovely Bravo, RDN [address] [facility] [place] [address] 09/28/2023 2:30 PM EST Home Visit [facility], [facility] [address] [place] [address] Sarah Vitale RN [address] [place] [address] 10/03/2023 10:30 AM EST Office Visit Sleep Disorders Ctr [facility] [address] [place] [phone] Sosa Freeman CRNP [address] [place] [address] 10/16/2023 11:30 AM EST Office Visit Gastroenterology, [facility] [address] [place] [address] Lizzette Silva CRNP [address] [place] [address] 12/10/2023 9:20 AM EDT Office Visit Family [address] [place] [phone] Rhys Humphrey MD [address] [place] [address] [place] [address] 12/27/2023 11:00 AM EDT Office Visit Cardiology [address] [place] [address] Mi Neil PA-C [address] [place] [address] 03/18/2024 9:00 AM EDT Nurse Only Ancillary [address] [place] [address] [place], Nurse Annual [address] [place] [address] Scheduled Orders Name Type Priority Associated Diagnoses [...] D LEVEL ONCE IN A LIFETIME-USE SMARTSET# [id number] Completed 06/29/2020, 03/16/2015 Pneumococcal Vaccine: 65+ Years [...] Documents on File Type Date Recorded Patient Hitcher Expl anation POLST 10/15/2019 3:17 PM POLST POLST 03/05/2019 POLST FORM Advance Directives and Living Will 01/27/2013 LIVING WILL Advance Directives and Living Will 01/27/2013 LIVING WILL Power of Network Technician 01/27/2013 POWER OF A TTORNEY Power of Network Technician 01/27/2013 POWER OF A TTORNEY Healthcare Agents on File Name Relationship Healthcare Agent Relationship Communication Cydney Benito Other - (no specific identity) Second Alternate Health Care Agent Anyi More Adult Child Health Care Roberth r of Network Technician Care Teams Fruit And Vegetable Factory Worker Relationship Specialty Start Date End Date Rhys Humphrey MD [address] [place] [address] [place] [address] PCP - General Family Medicine 06/09/21 documented as of this encounter
--- OUTSIDE RECORDS SUMMARY | 2023-10-29 06:25 | External Medical Summary ---
Author Name Unknown Address Unknown Organization K01:LABORATORY [facility] - [address] [place] [address] Laboratory Report Ordering Provider Test Date Status ANN HARRISON 09/04/2023 10:28:02 Final Observation Date Value Abnormality Reference (Units ) Status Vitamin B12 09/04/2023 10:28:02 0711 915-2820 (pg/mL) Final Performing Location LABORATORY C - [address] [place] [address]
--- OUTSIDE RECORDS SUMMARY | 2023-10-29 06:26 | External Medical Summary | Summary of Care ---
Author Name Unknown Organization [facility] Address [address] [place] [address] Phone [phone] Care Team Providers Care Rough Rice Tender Name Role Phone Rhys Humphrey MD Primary Care Provide r Reason for Visit * Reason Onset Date Comments [facility]: Maintenance 08/29/2023 Encounter Details Date Type Department Care Team (Late st Contact Info) Description 08/29/2023 Telephone [facility], [facility] [address] [place] [address] [facility], Nurse [facility] [address] [place] [address] [facility]: Maintenance Allergies Active Allergy Reactions Criticality Noted Date Comments Adhesive Tape Other (Please comment),Hives High 09/29/2008 Caused welts Dextromethorphan-Gu aifenesin Neuro complications (Please comment) Medium 12/23/2021 Feels lightheaded/"foggy" documented as of this encounter (statuses as of 08/29/2023) Medications Medication Sig Dispensed Refills Start Date [...] before bedtime. 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 30 Each 08/20/2023 Active documented as of this encounter (statuses as of 08/29/2023) Active Problems Problem Noted Date Diagnosed Date [...] as of this encounter (statuses as of 08/29/2023) Resolved Problems Problem Noted Date Diagnosed Date [...] as of this encounter (statuses as of 08/29/2023) Immunizations Name Administration Dates Next Due COVID-19 mRNA, LNP-s, No Pre serve, 2-Dose Series ([employer]) 07/11/2021,11/14/2020,10/24/2020 Covid-19, Mrna, Lnp-s, Pf, B ivalent, 30 Mcg, IM, 12 yrs and above ([employer]) 07/21/2022 Pneumococcal Conjugate Vacc, 13 Valent (Prevnar) 03/16/2015 Pneumococcal Conjugate Vacci ne, 20-valent ([id number]) 07/21/2022 Pneumococcal Polysaccharide PPV23 (Pneumovax) 03/05/2019,07/18/2007 SEASONAL [...] Miscellaneous Notes * Telephone Encounter - Angeles Mehta, DUNCAN - 08/29/2023 8:32 AM EST Images from the original note were not included. [facility] Remote Patient Monitoring Able to contact patient: Trigger type: Abnormal reading(s): AMC (Advanced Monitored Caregiving): Pulse rate: Pulse: 103 Symptom review: Denies symptoms Diet Reviewed: N/A Fluid Intake Reviewed: N/A Self-Management Plan Reviewed: Red Flags: requiring oxygen more than just at night, coughing up green, yellow, thick mucous, swelling in legs/feet Risk assignment [...] Additional risk selection justification: Spoke with pt, c/o feeling anxious. Denies chest pain/discomfort, dizziness, headache, increased SOB. She did not take her medications yet today. She did have2 nose bleeds last night. C/O nose feeling dry. She is wearing 02 all day and night. Does not have humidifier on concentrator. Has cut to corner of right great toe from hitting foot off of furniture.Denies redness or swelling. She does not have feeling in foot. She will call [facility] with any new/worsening symptoms. Overall risk and identified plan: High risk: Route to RNCM (Registered Nurse Supervisor Hydrochloric Area) and Advance Practitioner documented in this encounter Plan of Treatment Upcoming Encounters Date Type Department Care Team (Late st Contact Info) Description 09/03/2023 12:30 PM EST Nutrition Services [facility], [facility] [address] [facility] [place] [address] Lovely Bravo RDN [address] [facility] [place] [address] 09/07/2023 10:30 AM EST Imaging Radiology [address] [place] [address] 09/10/2023 11:45 AM EST Imaging Radiology [address] [place] [address] 09/14/2023 3:15 PM EST Office Visit Hematology/Oncology [facility] 200 [facility] [place] [address] Martínez Lopes MD [address] [facility] [place] [address] 09/17/2023 9:40 AM EST Office Visit Dermatology [address] [place] [address] Marycruz Almazan PA-C [address] [place] [address] [place] [address] 09/21/2023 2:30 PM EST Home Visit [facility], [facility] [address] [place] [address] Sarah Vitale, RN [address] [place] [address] 09/28/2023 2:30 PM EST Home Visit [facility], [facility] [address] [place] [address] Sarah Vitale, RN [address] [place] [address] 10/03/2023 10:30 AM EST Office Visit Sleep Disorders [facility] 132 [facility] [place] [phone] Sosa Freeman CRNP [address] [place] [address] 10/16/2023 11:30 AM EST Office Visit Gastroenterology, [facility] 132 [facility] [place] [address] Lizzette Silva CRNP [address] [place] [address] 12/10/2023 9:20 AM EDT Office Visit Family Medicine [address] [place] [phone] Rhys Humphrey MD [address] [place] [address] [place] [address] 12/27/2023 11:00 AM EDT Office Visit Cardiology [address] [place] [address] Mi Neil PA-C [address] [place] [address] 03/18/2024 9:00 AM EDT Nurse Only Ancillary [place] [place] [address] [place], Nurse Annual [address] [place] [address] Scheduled Procedures Name Priority Associated Diagnoses Date/Ti [...] D LEVEL ONCE IN A LIFETIME-USE SMARTSET# [id number] Completed 06/29/2020, 03/16/2015 Pneumococcal Vaccine: 65+ Years [...] Documents on File Type Date Recorded Patient Electric Mule Operator Expl anation POLST 10/15/2019 3:17 PM POLST POLST 03/05/2019 POLST FORM Advance Directives and Living Will 01/27/2013 LIVING WILL Advance Directives and Living Will 01/27/2013 LIVING WILL Power of Rehabilitation Engineer 01/27/2013 POWER OF A TTORNEY Power of Rehabilitation Engineer 01/27/2013 POWER OF A TTORNEY Healthcare Agents on File Name Relationship Healthcare Agent Relationship Communication Cydney Benito Other - (no specific identity) Second Alternate Health Care Agent Anyi More Adult Child Health Care Roberth r of Rehabilitation Engineer Care Teams Rough Rice Tender Relationship Specialty Start Date End Date Rhys Humphrey MD [address] [place] [address] [place] [address] PCP - General Family Medicine 06/09/21 documented as of this encounter
--- OUTSIDE RECORDS SUMMARY | 2023-10-29 06:26 | External Medical Summary | Summary of Care ---
Author Name Unknown Organization [facility] Address [address] [place] [address] Phone [phone] Care Team Providers Care Neurosurgery Research Director Name Role Phone Rhys Humphrey MD Primary Care Provide r Reason for Visit * Reason Comments [facility]: Maintenance Encounter Details Date Type Department Care Team (Late st Contact Info) Description 08/22/2023 4:00 PM EST Home Visit [facility], [facility] 132 [facility] [place] [address] Sarah Vitale, RN [address] [place] [address] Allergies Active Allergy Reactions Criticality Noted Date Comments Adhesive Tape Other (Please comment),Hives High 09/29/2008 Caused welts Dextromethorphan-Gu aifenesin Neuro complications (Please comment) Medium 12/23/2021 Feels lightheaded/"foggy" documented as of this encounter (statuses as of 08/25/2023) Medications Medication Sig Dispensed Refills Start Date [...] before bedtime. 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 30 Each 08/20/2023 Active documented as of this encounter (statuses as of 08/25/2023) Active Problems Problem Noted Date Diagnosed Date [...] as of this encounter (statuses as of 08/25/2023) Resolved Problems Problem Noted Date Diagnosed Date [...] as of this encounter (statuses as of 08/25/2023) Immunizations Name Administration Dates Next Due COVID-19 mRNA, LNP-s, No Pre serve, 2-Dose Series ([employer]) 07/11/2021,11/14/2020,10/24/2020 Covid-19, Mrna, Lnp-s, Pf, B ivalent, 30 Mcg, IM, 12 yrs and above ([employer]) 07/21/2022 Pneumococcal Conjugate Vacc, 13 Valent (Prevnar) 03/16/2015 Pneumococcal Conjugate Vacci ne, 20-valent ([id number]) 07/21/2022 Pneumococcal Polysaccharide PPV23 (Pneumovax) 03/05/2019,07/18/2007 SEASONAL [...] Sign Reading Time Taken Comments Blood Pressure 128/58 08/22/2023 2:25 PM EST Pulse 84 08/22/2023 2:25 PM EST Temperature 35.8 C (96.4 F) 08/22/2023 2:25 PM ES T Respiratory Rate 18 08/22/2023 2:25 PM EST Oxygen Saturation 92% 08/22/2023 2:25 PM EST Inhaled Oxygen Concentration - - Weight - - Height - - Body Mass Index - - documented in this encounter Progress Notes * Sarah Vitale RN - 08/22/2023 2:05 PM EST [facility] Procurement AnalystCivil Service Worker Visit Date: 08/22/2023 Time: 2:12 PM Name: Keisha Linares : 1940 Current Concerns: Patient seen for follow up- COPD, CHF, ISELA, OA Recent bronchoscopy 08/10- diagnosis small cell lung cancer LLL- Admission to [facility] following bronchoscopy 08/12 with acute hypoxic respiratory failure/pneumonia- treated with Cefdinir. Discharge home08/15. PET scan and MRI scheduled for beginning of August and follow up with oncology 09/14 Last dose of Cefdinir today. Per daughter- will discuss options with oncologist. Patient has watched family members go through chemotherapy. To present- patient wants to opt out of chemo. Quality versus Quantity per patient. Family present during visit- reports she has a good support system. VS wnl Lungs clear but diminished Sob with exertion No LE edema noted Voiding without difficulty Bowels wnl per report Appetite fair- poor- drinking protein drinks Taking fluids well. Problems/Symptoms: Review of Systems Constitutional: Negative. HENT: Negative. Respiratory: Positive for shortness of breath. Cardiovascular: Negative. Gastrointestinal: Negative. Endocrine: Negative. Genitourinary: Negative. Musculoskeletal: Positive for gait problem. Hematological: Negative. Psychiatric/Behavioral: Negative. Physical Exam: BP 128/58 (BP Site: Left Arm, BP Position: Sitting, BP Cuff Size: Regular) | Pulse 84 | Temp 35.8 C (96.4 F) (Tympanic) | Resp 18 | SpO2 92% Pain 0 Physical Exam Constitutional: Appearance: Normal appearance. Cardiovascular: Rate and Rhythm: Normal rate. Pulses: Normal pulses. Pulmonary: Effort: Pulmonary effort [...] and Affect: Mood normal. Behavior: Behavior normal. [facility]-10 Completed this Visit: No. Routine visit Treatment/Plan: Oxygen at 2L via n/c continuous Low na diet BP/weight daily- [facility] Continue medications as prescribed Keep all upcoming MD appointments Fall precautions- walker Protein drinks daily RN CM follow up in 3 weeks. Home Interventions Provided: Reinforced current Plan of Care, including self-management and medication regimen Patient Needs to Remember: Call [facility] with any medical concerns/ red flags Referrals Needed: N/a Follow Up: Is there cellular connectivity/connectivity in the home? Yes Does the patient have internet in the home? No Patient encouraged to call the intake phone number for all urgent but not emergent issues. Scheduled to follow up with patient in 4 weeks. Sarah Bhandari RN 08/22/2023 2:12 PM documented in this encounter Plan of Treatment Upcoming Encounters Date Type Department Care Team (Late st Contact Info) Description 09/03/2023 12:30 PM EST Nutrition Services [facility], [facility] [address] [place] [address] Lovely Bravo RDN [address] [place] [address] 09/07/2023 10:30 AM EST Imaging Radiology [facility] [place] [address] 09/10/2023 11:45 AM EST Imaging Radiology [address] [place] [address] 09/14/2023 3:15 PM EST Office Visit Hematology/Oncology [facility] [address] [place] [address] Martínez Lopes MD [address] [place] [address] 09/17/2023 9:40 AM EST Office Visit Dermatology [address] [place] [address] Marycruz Almazan PA-C [address] [place] [address] [place] [address] 09/21/2023 2:30 PM EST [facility] Visit [facility], [facility] [address] [place] [address] Sarah Vitale RN [address] [place] [address] 09/28/2023 2:30 PM EST Home Visit [facility], [facility] [address] [place] [address] Sarah Vitale, RN [address] [place] [address] 10/03/2023 10:30 AM EST Office Visit Sleep Disorders Ctr [facility] [address] [place] [phone] Sosa Freeman CRNP [address] [place] [address] 10/16/2023 11:30 AM EST Office Visit Gastroenterology, [facility] [address] [place] [address] Lizzette Silva CRNP [address] [place] [address] 12/10/2023 9:20 AM EDT Office Visit Family Medicine [address] [place] [address] Rhys Humphrey MD [address] [place] [address] [place] [address] 12/27/2023 11:00 AM EDT Office Visit Cardiology [address] [place] [address] Mi Neil PA-C [address] [place] [address] 03/18/2024 9:00 AM EDT Nurse Only Ancillary [address] [place] [address] [place], Nurse Annual [address] [place] [address] Scheduled Procedures Name Priority Associated Diagnoses Date/Ti [...] D LEVEL ONCE IN A LIFETIME-USE SMARTSET# [id number] Completed 06/29/2020, 03/16/2015 Pneumococcal Vaccine: 65+ Years [...] Documents on File Type Date Recorded Patient Optimization Engineer Expl anation POLST 10/15/2019 3:17 PM POLST POLST 03/05/2019 POLST FORM Advance Directives and Living Will 01/27/2013 LIVING WILL Advance Directives and Living Will 01/27/2013 LIVING WILL Power of Sales And Service Advisor 01/27/2013 POWER OF A TTORNEY Power of Sales And Service Advisor 01/27/2013 POWER OF A TTORNEY Healthcare Agents on File Name Relationship Healthcare Agent Relationship Communication Cydney Benito Other - (no specific identity) Second Alternate Health Care Agent Anyi More Adult Child Health Care Roberth r of Sales And Service Advisor Care Teams Neurosurgery Research Director Relationship Specialty Start Date End Date Rhys Humphrey MD [address] [place] [address] [place] [address] PCP - General Family Medicine 06/09/21 documented as of this encounter
--- OUTSIDE RECORDS SUMMARY | 2023-10-29 06:26 | External Medical Summary | Summary of Care ---
Author Name Unknown Organization [facility] Address [address] [place] [address] Phone [phone] Care Team Providers Care Airline Attendant Name Role Phone Rhys Humphrey MD Primary Care Provide r Reason for Visit * Reason Onset Date Comments [facility]: Maintenance 09/03/2023 Encounter Details Date Type Department Care Team (Late st Contact Info) Description 09/03/2023 Telephone [facility], [facility] [address] [place] [address] [facility], Nurse [facility] [address] [place] [address] [facility]: Maintenance Allergies Active Allergy [...] before bedtime. 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),COPD, group D, by [...] 05/31/20 17 Cancer Staging:Clinical:Stage III- Signed by Marítnez Lopes MD on 11/16/2014 Pathologic: Unsigned TIA (transient ischemic attack) 06/24/2018 documented as of this encounter (statuses as of 09/03/2023) Immunizations Name Administration Dates Next Due COVID-19 mRNA, LNP-s, No Pre serve, 2-Dose Series (Trademob) 07/11/2021,11/14/2020,10/24/2020 Covid-19, Mrna, Lnp-s, Pf, B ivalent, 30 Mcg, IM, 12 yrs and above (Trademob) 07/21/2022 Pneumococcal Conjugate Vacc, 13 Valent (Prevnar) 03/16/2015 Pneumococcal Conjugate Vacci ne, 20-valent ([id number]) 07/21/2022 Pneumococcal Polysaccharide PPV23 (Pneumovax) 03/05/2019,07/18/2007 SEASONAL [...] Miscellaneous Notes * Telephone Encounter - Angeles Mehta LPN [...] PM EST Nutrition Services [facility], [facility] [address] [facility] [place] [address] Lovely Bravo, RDN [address] [facility] [place] [address] 09/06/2023 11:00 AM EST Scheduled Telephone [facility], [facility] [address] [place] [address] [facility] Nurse Triage [address] [place] [address] 09/07/2023 10:30 AM EST Imaging Radiology [address] [place] [address] 09/10/2023 11:45 AM EST Imaging Radiology [address] [place] [address] 09/14/2023 3:15 PM EST Office Visit Hematology/Oncology [facility] [place] [address] [facility] [address] [place] [address] Martínez Lopes MD [address] [facility] [place] [address] 09/17/2023 9:40 AM EST Office Visit Dermatology [address] [place] [address] Marycruz Almazan PA-C [address] [place] [address] [place] [address] 09/21/2023 2:30 PM EST Home Visit [facility], [facility] [address] [place] [address] Sarah Vitale, RN [address] [place] [address] 09/28/2023 2:30 PM EST Home Visit [facility], [facility] [address] [place] [address] Sarah Vitale RN [address] [place] [address] 10/03/2023 10:30 AM EST Office Visit Sleep Disorders Ctr [facility] [address] [place] [phone] Sosa Freeman CRNP [address] [place] [address] 10/16/2023 11:30 AM EST Office Visit Gastroenterology, [facility] [address] [place] [address] Lizzette Silva CRNP [address] [place] [address] 12/10/2023 9:20 AM EDT Office Visit Family Medicine [address] [place] [phone] Rhys Humphrey MD [address] [place] [address] [place] [address] 12/27/2023 11:00 AM EDT Office Visit Cardiology [address] [place] [address] Mi Neil, CECI [address] [place] [address] 03/18/2024 9:00 AM EDT Nurse Only Ancillary [address] [place] [address] [place], Nurse Annual [address] [place] [address] Scheduled Procedures Name Priority Associated Diagnoses Date/Ti [...] D LEVEL ONCE IN A LIFETIME-USE SMARTSET# 75610 Completed 06/29/2020, 03/16/2015 Pneumococcal Vaccine: 65+ Years [...] Documents on File Type Date Recorded Patient Ground Control Approach Technician Expl anation POLST 10/15/2019 3:17 PM POLST POLST 03/05/2019 POLST FORM Advance Directives and Living Will 01/27/2013 LIVING WILL Advance Directives and Living Will 01/27/2013 LIVING WILL Power of Director Of Food And Nutrition Services 01/27/2013 POWER OF A TTORNEY Power of Director Of Food And Nutrition Services 01/27/2013 POWER OF A TTORNEY Healthcare Agents on File Name Relationship Healthcare Agent Relationship Communication Cydney Benito Other - (no specific identity) Second Alternate Health Care Agent Anyi More Adult Child Health Care Roberth r of Director Of Food And Nutrition Services Care Teams Airline Attendant Relationship Specialty Start Date End Date Rhys Humphrey MD [address] [place] [address] [place] [address] PCP - General Family Medicine 06/09/21 documented as of this encounter
--- OUTSIDE RECORDS SUMMARY | 2023-10-29 06:26 | External Medical Summary | Summary of Care ---
Author Name Unknown Organization [facility] Address [address] [place] [address] Phone [phone] Care Team Providers Care Superintendent Police Name Role Phone Rhys Humphrey MD Primary Care Provide r Reason for Visit * Reason Onset Date Comments Follow Up 08/25/2023 Encounter Details Date Type Department Care Team (Late st Contact Info) Description 08/25/2023 9:30 AM EST Scheduled Telephone [facility], [facility] [address] [place] [address] [facility], Nurse [facility] [address] [place] [address] Allergies Active Allergy Reactions Criticality Noted Date [...] before bedtime. 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 Phone call to patient d/t [facility] trigger. Message left for return call. documented in this encounter Plan of Treatment Upcoming Encounters Date Type Department Care Team (Late st Contact Info) Description 08/27/2023 12:30 PM EST Home Visit [facility], [facility] 132 [facility] [place] [address] Sarah Vitale RN 132 [facility] [place] [address] 09/03/2023 12:30 PM EST Nutrition Services [facility], [facility] [address] [facility] [place] [address] Lovely Bravo RDN [address] [place] [address] 09/07/2023 10:30 AM EST Imaging Radiology [address] [place] [address] 09/10/2023 11:45 AM EST Imaging Radiology [address] [place] [address] 09/14/2023 3:15 PM EST Office Visit Hematology/Oncology [facility] [place] [facility] [place] [address] Martínez Lopes MD 200 [facility] [place] [address] 09/17/2023 9:40 AM EST Office Visit Dermatology [address] [place] [address] Marycruz Almazan PA-C [address] [place] [address] [place] [address] 09/28/2023 2:30 PM EST [facility] [address] [place] [address] Sarah Vitale, RAYNA [address] [place] [address] 10/03/2023 10:30 AM EST Office Visit Sleep Disorders [facility] [address] [place] [phone] Sosa Freeman CRNP [address] [place] [address] 10/16/2023 11:30 AM EST Office Visit Gastroenterology, [facility] [address] [place] [address] Lizzette Silva CRNP [address] [place] [address] 12/10/2023 9:20 AM EDT Office Visit Family Medicine [address] [place] [phone] Rhys Humphrey MD [address] [place] [address] [place] [address] 12/27/2023 11:00 AM EDT Office Visit Cardiology [address] [place] [address] Mi Neil PA-C [address] [place] [address] 03/18/2024 9:00 AM EDT Nurse Only Ancillary [place] [address] [place] [address] [place], Nurse [address] [place] [address] Scheduled Procedures Name Priority Associated Diagnoses Date/Ti [...] D LEVEL ONCE IN A LIFETIME-USE SMARTSET# [id number] Completed 06/29/2020, 03/16/2015 Pneumococcal Vaccine: 65+ Years [...] Documents on File Type Date Recorded Patient Engineering Department Chair Expl anation POLST 10/15/2019 3:17 PM POLST POLST 03/05/2019 POLST FORM Advance Directives and Living Will 01/27/2013 LIVING WILL Advance Directives and Living Will 01/27/2013 LIVING WILL Power of Clerk Telegraph Service 01/27/2013 POWER OF A TTORNEY Power of Clerk Telegraph Service 01/27/2013 POWER OF A TTORNEY Healthcare Agents on File Name Relationship Healthcare Agent Relationship Communication Cydney Benito Other - (no specific identity) Second Alternate Health Care Agent Anyi More Adult Child Health Care Roberth r of Clerk Telegraph Service Care Teams Superintendent Police Relationship Specialty Start Date End Date Rhys Humphrey MD [address] [place] [address] [place] [address] PCP - General Family Medicine 06/09/21 documented as of this encounter
--- OUTSIDE RECORDS SUMMARY | 2023-10-29 06:26 | External Medical Summary | Summary of Care ---
Author Name Unknown Organization [facility] Address [address] [place] [address] Phone [phone] Care Team Providers Care Repeat Photocomposing Machine Operator Name Role Phone Rhys Humphrey MD Primary Care Provide r Reason for Visit * Reason Onset Date Comments [facility]: Maintenance 08/29/2023 Encounter Details Date Type Department Care Team (Late st Contact Info) Description 08/29/2023 Telephone [facility], [facility] [address] [place] [address] [facility], Nurse [facility] [address] [place] [address] [facility]: Maintenance Allergies Active Allergy Reactions Criticality Noted Date Comments Adhesive Tape Other (Please comment),Hives High 09/29/2008 Caused welts Dextromethorphan-Gu aifenesin Neuro complications (Please comment) Medium 12/23/2021 Feels lightheaded/"foggy" documented as of this encounter (statuses as of 08/30/2023) Medications Medication Sig Dispensed Refills Start Date [...] before bedtime. 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 30 Each 08/20/2023 Active documented as of this encounter (statuses as of 08/30/2023) Active Problems Problem Noted Date Diagnosed Date [...] as of this encounter (statuses as of 08/30/2023) Resolved Problems Problem Noted Date Diagnosed Date [...] as of this encounter (statuses as of 08/30/2023) Immunizations Name Administration Dates Next Due COVID-19 mRNA, LNP-s, No Pre serve, 2-Dose Series (Atrum Coal) 07/11/2021,11/14/2020,10/24/2020 Covid-19, Mrna, Lnp-s, Pf, B ivalent, 30 Mcg, IM, 12 yrs and above ([employer]) 07/21/2022 Pneumococcal Conjugate Vacc, 13 Valent (Prevnar) 03/16/2015 Pneumococcal Conjugate Vacci ne, 20-valent ([id number]) 07/21/2022 Pneumococcal Polysaccharide PPV23 (Pneumovax) 03/05/2019,07/18/2007 SEASONAL [...] Telephone Encounter - Isaac Parker PA-C - 08/30/2023 11:23 AM EST [facility] Remote Medical Command Phone Encounter Thank you for your assistance in the care of this patient today. Reviewed phone message. I agree w/ the advice offered via phone by our intake nursing team. Patient does have periodic increases in her heart rate. She remains asymptomatic. At this time, no changes are needed. Agree with having the patient check her blood pressure on her pulse ox twice a day involving the values. Please continue to monitor patient per protocol. Please remind patient that if she does develop any symptoms to call [facility] Please let me know via encounter or TT message if there is any change Thank you in advance, I appreciate it. Isaac Parker PA-C * Telephone Encounter - Chaya Ozuna LPN - 08/30/2023 10:18 AM EST Images from the original note were not included. [facility] Remote Patient Monitoring Able to contact patient: Trigger type: Abnormal reading(s): AMC (Advanced Monitored Caregiving): Pulse rate: Pulse: 103 Trigger priority per AMC: high Patient takes medication to control pulse: No Symptom review: Wound: asymptomatic Diet Reviewed: N/A Fluid Intake Reviewed: N/A Self-Management Plan Reviewed: 1. Requiring oxygen more than just at night 2. Coughing up green, yellow , thick mucous 3. Swelling in legs/feet Risk assignment recommendation: Moderate [...] 90 WITH symptoms Additional risk selection justification: call to pt states she feels "real good" today Denies CP, -FOOTE, -palpitations, -lightheadedness, -dizziness Pt on 2 L O2 (baseline) Pt has finger pulse ox with readings for MS and SPO2 Per her device SPO2 96% on 2 L, MS-82 Made pt aware provider is requesting she log her oxygen level and HR twice a day. To have for next [facility]. Pt stated "if I have time" Went over instructions from Jeanna Parker on nasal dryness. Pt states her nose isn't dry today but she will keep recommendation in case she needs them. Pt has no other complaints Will continue to monitor Instructed to call [place] at [phone]# with any new or worsening symptoms Overall risk and identified plan: Moderate risk: Route to RNCM (Registered Nurse Wire Inserter) and Advance Practitioner * Telephone Encounter - Isaac Parker PA-C - 08/29/2023 5:42 PM EST Please note this is a continuation of my prior note as the computer stuff functioning. Please remind the patient of the importance of taking her medications as ordered. For the nasal dryness the patient can can use nasal saline or KY gel(not Vaseline) lately crease inside each nostril. This is water soluble and will provide immediate help with the dryness but also long-term as it will absorb into the tissues. Vaseline will not. Is the patient capable of doing pulse ox. If she so can we get them twice a day and log them. If not can we have a community health anesthesiologist assistant certified go to the home for a non urgent visit in obtain pulse ox at rest with the oxygen on and oxygen off. We also have them do the 6 minute walk test with the oxygen on and with the oxygen off and report them back to me. Follow-up phone call next 2 days Please let me know via encounter or TT message if there is any change Thank you in advance, I appreciate it. Isaac Parker PA-C * Telephone Encounter - Isaac Parker PA-C - 08/29/2023 5:38 PM EST [facility] Remote Medical Command Phone Encounter Thank you for your assistance in the care of this patient today. Reviewed phone message. I agree w/ the advice offered via phone by our intake nursing team. Please let me know via encounter or TT message if there is any change Thank you in advance, I appreciate it. Isaac Parker PA-C * Telephone Encounter - Angeles Mehta LPN - 08/29/2023 8:32 AM EST Images from [...] have feeling in foot. She will call [facility] with any new/worsening symptoms. Overall risk and identified plan: High risk: Route to RNCM (Registered Nurse Wire Inserter) and Advance Practitioner documented in this encounter Plan of Treatment Upcoming Encounters Date Type Department Care Team (Late st Contact Info) Description 09/03/2023 12:30 PM EST Nutrition Services [facility], [facility] [address] [place] [address] Lovely Bravo, SHAKIRN [address] [place] [address] 09/07/2023 10:30 AM EST Imaging Radiology [address] 132 [facility] [place] [address] 09/10/2023 11:45 AM EST Imaging Radiology [address] [place] [address] 09/14/2023 3:15 PM EST Office Visit Hematology/Oncology [facility] [address] [place] [address] Martínez Lopes MD [address] [place] [address] 09/17/2023 9:40 AM EST Office Visit Dermatology [address] [place] [address] Marycruz Almazan PA-C [address] [place] [address] [place] [address] 09/21/2023 2:30 PM EST [facility] Visit [facility], [facility] [address] [place] [address] Sarah Vitale, RN [address] [place] [address] 09/28/2023 2:30 PM EST Home Visit [facility], [facility] [address] [place] [address] Sarah Vitale, RN [address] [place] [address] 10/03/2023 10:30 AM EST Office Visit Sleep Disorders [facility]tr [facility] [address] [place] [phone] Sosa Freeman CRNP [address] [place] [address] 10/16/2023 11:30 AM EST Office Visit Gastroenterology, [facility] [address] [place] [address] Lizzette Silva CRNP [address] [place] [address] 12/10/2023 9:20 AM EDT Office Visit Family Medicine [address] [place] [phone] Rhys Humphrey MD [address] [place] [address] [place] [address] 12/27/2023 11:00 AM EDT Office Visit Cardiology [address] [place] [address] Mi Neil, CECI [address] [place] [address] 03/18/2024 9:00 AM EDT Nurse Only Ancillary [address] [place] [address] [place], Nurse Annual [facility]ness [address] [place] [address] [place] [address] Scheduled Procedures Name Priority Associated Diagnoses Date/Ti [...] D LEVEL ONCE IN A LIFETIME-USE SMARTSET# [id number] Completed 06/29/2020, 03/16/2015 Pneumococcal Vaccine: 65+ Years [...] Documents on File Type Date Recorded Patient Wool Puller Expl anation POLST 10/15/2019 3:17 PM POLST POLST 03/05/2019 POLST FORM Advance Directives and Living Will 01/27/2013 LIVING WILL Advance Directives and Living Will 01/27/2013 LIVING WILL Power of Rotary Kiln Operator 01/27/2013 POWER OF A TTORNEY Power of Rotary Kiln Operator 01/27/2013 POWER OF A TTORNEY Healthcare Agents on File Name Relationship Healthcare Agent Relationship Communication Cydney Benito Other - (no specific identity) Second Alternate Health Care Agent Anyi More Adult Child Health Care Roberth r of Rotary Kiln Operator Care Teams Repeat Photocomposing Machine Operator Relationship Specialty Start Date End Date Rhys Humphrey MD [address] [place] [address] [place] [id number] PCP - General Family Medicine 06/09/21 documented as of this encounter
--- OUTSIDE RECORDS SUMMARY | 2023-10-29 06:26 | External Medical Summary | Summary of Care ---
Author Name Unknown Organization [facility] Address [address] [place] [address] Phone [phone] Care Team Providers Care Hand Tacker Name Role Phone Rhys Humphrey MD Primary Care Provide r Reason for Visit * Reason Onset Date Comments [facility]: Maintenance 08/24/2023 Encounter Details Date Type Department Care Team (Late st Contact Info) Description 08/24/2023 Telephone [facility], [facility] [address] [place] [address] [facility], Nurse [facility] [address] [place] [address] [facility]: Maintenance Allergies Active Allergy Reactions Criticality Noted Date Comments Adhesive Tape Other (Please comment),Hives High 09/29/2008 Caused welts Dextromethorphan-Gu aifenesin Neuro complications (Please comment) Medium 12/23/2021 Feels lightheaded/"foggy" documented as of this encounter (statuses as of 08/24/2023) Medications Medication Sig Dispensed Refills Start Date [...] before bedtime. 50 Cap 0 01/18/2021 Active Emofoyp-Hypylferv-Zw nc 333-133-5 MG Oral Tablet Take 1 [...] hours as needed for Cough. 0 Active Cefdinir 300 MG Oral Capsule (Omnicef) Take 1 Capsule by mouth in the morning and 1 Capsule before bedtime. 0 08/16/2023 3 Active Fluticasone Furoate 100 MCG/ACT Inhalation Aerosol Powder Breath Activated (ARNUITY ellipta)Indications: COPD, moderate (HCC),COPD, group D, by GOLD 2017 classification (HCC) Inhale 1 Puff by mouth in the morning. In addition to anoro. 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 30 Each 08/20/2023 Active documented as of this encounter (statuses as of 08/24/2023) Active Problems Problem Noted Date Diagnosed Date [...] Medication Regimen o Other: anoro, arnuity, singulair, dustephanie Self-Management plan o Prednisone 40mg daily for [...] as of this encounter (statuses as of 08/24/2023) Resolved Problems Problem Noted Date Diagnosed Date [...] as of this encounter (statuses as of 08/24/2023) Immunizations Name Administration Dates Next Due COVID-19 mRNA, LNP-s, No Pre serve, 2-Dose Series ([employer]) 07/11/2021,11/14/2020,10/24/2020 Covid-19, Mrna, Lnp-s, Pf, B ivalent, 30 Mcg, IM, 12 yrs and above (Pfizer) 07/21/2022 Pneumococcal Conjugate Vacc, 13 Valent (Prevnar) 03/16/2015 Pneumococcal Conjugate Vacci ne, 20-valent ([id number]) 07/21/2022 Pneumococcal Polysaccharide PPV23 (Pneumovax) 03/05/2019,07/18/2007 SEASONAL [...] Telephone Encounter - Melissa Almaraz RN - 08/24/2023 9:53 AM EST Patient calling states she missed a call No notes or appts noted Pt states he daughter is trying to get a POC for her states her oxygen tanks dont last long enough if she wants to leave the home and are difficult for her to manage Advised patient to tell DTR to call pulmonary to review if POC is appropriate for patient Dr. Fernandez number provided to patient Melissa Almaraz RN, BSN [facility] hydroelectric operatorAntique Jewelry Repairer documented in this encounter Plan of Treatment Upcoming Encounters Date Type Department Care Team (Late st Contact Info) Description 08/27/2023 12:30 PM EST [facility] Visit [facility], [facility] [address] [place] [address] Sarah Vitale RN 132 [facility] [place] [address] 09/03/2023 12:30 PM EST Nutrition Services [facility], [facility] [address] [place] [address] Lovely Bravo RDN [address] [place] [address] 09/07/2023 10:30 AM EST Imaging Radiology [address] [place] [address] 09/10/2023 11:45 AM EST Imaging Radiology [facility] 1st [facility] [address] [place] [address] 09/14/2023 3:15 PM EST Office Visit Hematology/Oncology [facility] [address] [place] [address] Martínez Lopes MD [address] [place] [address] 09/17/2023 9:40 AM EST Office Visit Dermatology [address] [place] [address] Marycruz Almazan PA-C [address] [place] [address] [place] [address] 09/28/2023 2:30 PM EST [facility] Visit [facility] [place], [facility] [address] [place] [address] Sarah Vitale RN [address] [place] [address] 10/03/2023 10:30 AM EST Office Visit Sleep Disorders [facility] [address] [place] [phone] Sosa Freeman CRNP [address] [place] [address] 10/16/2023 11:30 AM EST Office Visit Gastroenterology, [facility] [address] [place] [address] Lizzette Silva CRNP [address] [place] [address] 12/10/2023 9:20 AM EDT Office Visit Family Medicine [address] [place] [address] Rhys Humphrey MD [address] [place] [address] [place] [address] 12/27/2023 11:00 AM EDT Office Visit Cardiology [address] [place] [address] Mi Neil, CECI [address] [place] [address] 03/18/2024 9:00 AM EDT Nurse Only Ancillary [address] [place] [address] [place], Nurse Annual [address] [place] [address] Scheduled Procedures Name Priority Associated Diagnoses Date/Ti [...] D LEVEL ONCE IN A LIFETIME-USE SMARTSET# 64604 Completed 06/29/2020, 03/16/2015 Pneumococcal Vaccine: 65+ Years [...] Documents on File Type Date Recorded Patient Wood Fuel Pelletizer Expl anation POLST 10/15/2019 3:17 PM POLST POLST 03/05/2019 POLST FORM Advance Directives and Living Will 01/27/2013 LIVING WILL Advance Directives and Living Will 01/27/2013 LIVING WILL Power of Tractor Operator Helper 01/27/2013 POWER OF A TTORNEY Power of Tractor Operator Helper 01/27/2013 POWER OF A TTORNEY Healthcare Agents on File Name Relationship Healthcare Agent Relationship Communication Cydney Benito Other - (no specific identity) Second Alternate Health Care Agent Anyi More Adult Child Health Care Roberth r of Tractor Operator Helper Care Teams Hand Tacker Relationship Specialty Start Date End Date Rhys Humphrey MD [address] [place] [address] [place] [address] PCP - General Family Medicine 06/09/21 documented as of this encounter
--- OUTSIDE RECORDS SUMMARY | 2023-10-29 06:26 | External Medical Summary | Summary of Care ---
Author Name Unknown Organization [facility] Address [address] [place] [address] Phone [phone] Care Team Providers Care Refrigeration Engineering Teacher Name Role Phone Rhys Humphrey MD Primary Care Provide r Reason for Visit * Reason Onset Date Comments [facility]: Maintenance 08/29/2023 Encounter Details Date Type Department Care Team (Late st Contact Info) Description 08/29/2023 Telephone [facility], [facility] [address] [place] [address] [facility], Nurse [facility] [address] [place] [address] [facility]: Maintenance Allergies Active Allergy [...] before bedtime. 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),COPD, group D, by [...] mRNA, LNP-s, No Pre serve, 2-Dose Series (Avtal24) 07/11/2021,11/14/2020,10/24/2020 Covid-19, Mrna, Lnp-s, Pf, B ivalent, 30 Mcg, IM, 12 yrs and above (Avtal24) 07/21/2022 Pneumococcal Conjugate Vacc, 13 Valent (Prevnar) 03/16/2015 Pneumococcal Conjugate Vacci ne, 20-valent ([id number]) 07/21/2022 Pneumococcal Polysaccharide PPV23 (Pneumovax) 03/05/2019,07/18/2007 SEASONAL [...] not can we have a community health assistant front end manager go to the home for a non [...] as applicable): [] Moderate trigger priority on [facility] [] Confirmed tympanic equivalent temperature 100.4-101.9 F [...] as applicable): [x] High trigger priority on [facility] [] Confirmed tympanic equivalent temperature greater than [...] have feeling in foot. She will call [facility] with any new/worsening symptoms. Overall risk and identified plan: High risk: Route to RNCM (Registered Nurse Academic Support Specialist) and Advance Practitioner documented in this encounter Plan of Treatment Upcoming Encounters Date Type Department Care Team (Late st Contact Info) Description 09/03/2023 12:30 PM EST Nutrition Services [facility], [facility] [address] [facility] [place] [address] Lovely Bravo RDN [address] [facility] [place] [address] 09/07/2023 10:30 AM EST Imaging Radiology [address] [place] [address] 09/10/2023 11:45 AM EST Imaging Radiology [address] 132 [facility] [place] [address] 09/14/2023 3:15 PM EST Office Visit Hematology/Oncology [facility] [address] [place] [address] Martínez Lopes MD [address] [place] [address] 09/17/2023 9:40 AM EST Office Visit Dermatology [address] [place] [address] Marycruz Almazan PA-C [address] [place] [address] [place] [address] 09/21/2023 2:30 PM EST [facility] [place], [facility] 132 [facility] [place] [address] Sarah Vitale, RAYNA [address] [place] [address] 09/28/2023 2:30 PM EST Home Visit [facility], [facility] [address] [place] [address] Sarah Vitale RN [address] [place] [address] 10/03/2023 10:30 AM EST Office Visit Sleep Disorders [facility] 132 [facility] [place] [phone] Sosa Freeman CRNP [address] [place] [address] 10/16/2023 11:30 AM EST Office Visit [facility]astroenterology, [facility] [place] [address] Lizzette Silva CRNP [address] [place] [address] 12/10/2023 9:20 AM EDT Office Visit Family Medicine [address] [place] [phone] Rhys Humphrey MD [address] [place] [address] [place] [address] 12/27/2023 11:00 AM EDT Office Visit Cardiology [address] [place] [address] Mi Neil PA-C [address] [place] [address] 03/18/2024 9:00 AM EDT Nurse Only Ancillary [address] [place] [address] [place], Nurse Annual [address] [place] [address] Scheduled Procedures Name Priority Associated Diagnoses Date/Ti [...] D LEVEL ONCE IN A LIFETIME-USE SMARTSET# 40531 Completed 06/29/2020, 03/16/2015 Pneumococcal Vaccine: 65+ Years [...] Documents on File Type Date Recorded Patient Rivet Passer Expl anation POLST 10/15/2019 3:17 PM POLST POLST 03/05/2019 POLST FORM Advance Directives and Living Will 01/27/2013 LIVING WILL Advance Directives and Living Will 01/27/2013 LIVING WILL Power of Claim Service Representative 01/27/2013 POWER OF A TTORNEY Power of Claim Service Representative 01/27/2013 POWER OF A TTORNEY Healthcare Agents on File Name Relationship Healthcare Agent Relationship Communication Cydney Benito Other - (no specific identity) Second Alternate Health Care Agent Anyi More Adult Child Health Care Roberth r of Claim Service Representative Care Teams Refrigeration Engineering Teacher Relationship Specialty Start Date End Date Rhys Humphrey MD [address] [place] [address] [place] [address] PCP - General Family Medicine 06/09/21 documented as of this encounter
--- OUTSIDE RECORDS SUMMARY | 2023-10-29 06:26 | External Medical Summary | Summary of Care ---
Author Name Unknown Organization [facility] Address [address] [place] [address] Phone [phone] Care Team Providers Care Smoked Meat Preparer Name Role Phone Rhys Humphrey MD Primary Care Provide r Reason for Visit * Reason Onset Date Comments [facility]: Maintenance 08/28/2023 Encounter Details Date Type Department Care Team (Late st Contact Info) Description 08/28/2023 Telephone [facility], [facility] [address] [place] [address] [facility], Nurse [facility] [address] [place] [address] [facility]: Maintenance Allergies Active Allergy Reactions Criticality Noted Date Comments Adhesive Tape Other (Please comment),Hives High 09/29/2008 Caused welts Dextromethorphan-Gu aifenesin Neuro complications (Please comment) Medium 12/23/2021 Feels lightheaded/"foggy" documented as of this encounter (statuses as of 08/28/2023) Medications Medication Sig Dispensed Refills Start Date [...] before bedtime. 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 30 Each 08/20/2023 Active documented as of this encounter (statuses as of 08/28/2023) Active Problems Problem Noted Date Diagnosed Date [...] as of this encounter (statuses as of 08/28/2023) Resolved Problems Problem Noted Date Diagnosed Date [...] as of this encounter (statuses as of 08/28/2023) Immunizations Name Administration Dates Next Due COVID-19 mRNA, LNP-s, No Pre serve, 2-Dose Series ([employer]Feed) 07/11/2021,11/14/2020,10/24/2020 Covid-19, Mrna, Lnp-s, Pf, B ivalent, 30 Mcg, IM, 12 yrs and above (TreatFeed) 07/21/2022 Pneumococcal Conjugate Vacc, 13 Valent (Prevnar) 03/16/2015 Pneumococcal Conjugate Vacci ne, 20-valent ([id number]) 07/21/2022 Pneumococcal Polysaccharide PPV23 (Pneumovax) 03/05/2019,07/18/2007 SEASONAL [...] Telephone Encounter - Angeles Mehta LPN - 08/28/2023 9:13 AM EST Images from the original note were not included. [facility] Remote Patient Monitoring Unable to contact patient: Trigger type: Abnormal reading(s): Device(s) Triggered: AMC (Advanced Monitored Caregiving): Pulse Rate: Pulse: 106 Called pt voicemail full, unable to leave message. documented in this encounter Plan of Treatment Upcoming Encounters Date Type Department Care Team (Late st Contact Info) Description 09/03/2023 12:30 PM EST Nutrition Services [facility], [facility] [address] [facility] [place] [address] Lovely Bravo, RDN [address] [facility] [place] [address] 09/07/2023 10:30 AM EST Imaging Radiology [address] [place] [address] 09/10/2023 11:45 AM EST Imaging Radiology [address] 132 [facility] [place] [address] 09/14/2023 3:15 PM EST Office Visit Hematology/Oncology [facility] [place] [address] [place] [address] Martínez Lopes MD [address] [place] [address] 09/17/2023 9:40 AM EST Office Visit Dermatology [address] [place] [address] Marycruz Almazan PA-C [address] [place] [address] [place] [address] 09/21/2023 2:30 PM EST [facility] Visit [facility], [facility] [address] [place] [address] Sarah Vitale, RN [address] [place] [address] 09/28/2023 2:30 PM EST Home Visit [facility], [facility] [address] [place] [address] Sarah Vitale, RAYNA [address] [place] [address] 10/03/2023 10:30 AM EST Office Visit Sleep Disorders [facility] 132 [facility] [place] [phone] Sosa Freeman CRNP 132 [facility] [place] [address] 10/16/2023 11:30 AM EST Office Visit Gastroenterology, [facility] 132 [facility] [place] [address] Lizzette Silva CRNP 132 [facility] [place] [address] 12/10/2023 9:20 AM EDT Office Visit Family Medicine [address] [place] [phone] Rhys Humphrey MD [address] [place] [address] [place] [address] 12/27/2023 11:00 AM EDT Office Visit Cardiology [address] [place] [address] Mi Neil PA-C [address] [place] [address] 03/18/2024 9:00 AM EDT Nurse Only Ancillary [address] [place] [address] [place], Nurse [address] [place] [address] Scheduled Procedures Name Priority Associated Diagnoses Date/Ti [...] D LEVEL ONCE IN A LIFETIME-USE SMARTSET# 34975 Completed 06/29/2020, 03/16/2015 Pneumococcal Vaccine: 65+ Years [...] on File Type Date Recorded Patient Airport Guide Expl anation POLST 10/15/2019 3:17 PM POLST POLST 03/05/2019 POLST FORM Advance Directives and Living Will 01/27/2013 LIVING WILL Advance Directives and Living Will 01/27/2013 LIVING WILL Power of State Epidemiologist 01/27/2013 POWER OF A TTORNEY Power of State Epidemiologist 01/27/2013 POWER OF A TTORNEY Healthcare Agents on File Name Relationship Healthcare Agent Relationship Communication Cydney Benito Other - (no specific identity) Second Alternate Health Care Agent Anyi More Adult Child Health Care Roberth r of State Epidemiologist Care Teams Smoked Meat Preparer Relationship Specialty Start Date End Date Rhys Humphrey MD [address] [place] [address] [place] [id number] PCP - General Family Medicine 06/09/21 documented as of this encounter
--- OUTSIDE RECORDS SUMMARY | 2023-10-29 06:26 | External Medical Summary | Summary of Care ---
Author Name Unknown Organization [facility] Address [address] [place] [address] Phone [phone] Care Team Providers Care Discharge Specialist Name Role Phone Rhys Humphrey MD Primary Care Provide r Reason for Visit * Reason Onset Date Comments [facility]: Maintenance 08/29/2023 Encounter Details Date Type Department Care Team (Late st Contact Info) Description 08/29/2023 Telephone [facility], [facility] [address] [place] [address] [facility], Nurse [facility] [address] [place] [address] [facility]: Maintenance Allergies Active Allergy [...] before bedtime. 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 To have for next [facility] HV. Pt stated "if I have time" Went over instructions from Jeanna Parker on nasal dryness. Pt states her nose isn't dry today but she will keep recommendation in case she needs them. Pt has no other complaints Will continue to monitor Instructed to call [facility] at [phone]# with any new or worsening symptoms Overall risk and identified plan: Moderate risk: Route to RNCM (Registered Nurse Collection Administrator) and Advance Practitioner * Telephone Encounter - [...] not can we have a community health senior agricultural assistant go to the home for a non [...] have feeling in foot. She will call [facility] with any new/worsening symptoms. Overall risk and identified plan: High risk: Route to RNCM (Registered Nurse Collection Administrator) and Advance Practitioner documented in this encounter Plan of Treatment Upcoming Encounters Date Type Department Care Team (Late st Contact Info) Description 09/03/2023 12:30 PM EST Nutrition Services [facility], [facility] [address] [facility] [place] [address] Lovely Bravo RDN [address] [facility] [place] [address] 09/07/2023 10:30 AM EST Imaging Radiology [address] 132 [facility] [place] [address] 09/10/2023 11:45 AM EST Imaging Radiology [address] 132 [facility] [place] [address] 09/14/2023 3:15 PM EST Office Visit Hematology/Oncology [facility] [place] 200 [facility] [place] [address] Martínez Lopes MD [address] [place] [address] 09/17/2023 9:40 AM EST Office Visit Dermatology [address] [place] [address] Marycruz Almazan PA-C [address] [place] [address] [place] [address] 09/21/2023 2:30 PM EST [facility] Visit [facility], [facility] [address] [place] [address] Sarah Vitale, RN [address] [place] [address] 09/28/2023 2:30 PM EST Home Visit [facility], [facility] [address] [place] [address] Sarah Vitale RN [address] [place] [address] 10/03/2023 10:30 AM EST Office Visit Sleep Disorders [facility] [address] [place] [phone] Sosa Freeman CRNP [address] [place] [address] 10/16/2023 11:30 AM EST Office Visit Gastroenterology, [facility] [address] [place] [address] Lizzette Silva CRNP [address] [place] [address] 12/10/2023 9:20 AM EDT Office Visit Family Medicine [address] [place] [address] Rhys Humphrey MD [address] [place] [address] [place] [address] 12/27/2023 11:00 AM EDT Office Visit Cardiology [address] [place] [address] Mi Neil PA-C [address] [place] [address] 03/18/2024 9:00 AM EDT Nurse Only Ancillary [address] [place] [address] [place], Nurse Annual [address] [place] [address] Scheduled Procedures Name Priority Associated Diagnoses Date/Ti [...] D LEVEL ONCE IN A LIFETIME-USE SMARTSET# [id number] Completed 06/29/2020, 03/16/2015 Pneumococcal Vaccine: 65+ Years [...] on File Type Date Recorded Patient Director Of Mobile Marketing Expl anation POLST 10/15/2019 3:17 PM POLST POLST 03/05/2019 POLST FORM Advance Directives and Living Will 01/27/2013 LIVING WILL Advance Directives and Living Will 01/27/2013 LIVING WILL Power of Manufacturing Development Engineer 01/27/2013 POWER OF A TTORNEY Power of Manufacturing Development Engineer 01/27/2013 POWER OF A TTORNEY Healthcare Agents on File Name Relationship Healthcare Agent Relationship Communication Cydney Benito Other - (no specific identity) Second Alternate Health Care Agent Anyi More Adult Child Health Care Roberht r of Manufacturing Development Engineer Care Teams Discharge Specialist Relationship Specialty Start Date End Date Rhys Humphrey MD [address] [place] [address] [place] [address] PCP - General Family Medicine 06/09/21 documented as of this encounter
--- OUTSIDE RECORDS SUMMARY | 2023-10-29 06:27 | External Medical Summary | Summary of Care ---
Author Name Unknown Organization [facility] Address [address] [place] [address] Phone [phone] Care Team Providers Care Engineering Consultant Name Role Phone Rhys Humphrey MD Primary Care Provide r Reason for Visit * Reason Onset Date Comments [facility]: Maintenance 08/17/2023 Encounter Details Date Type Department Care Team (Late st Contact Info) Description 08/17/2023 9:30 AM EST Scheduled Telephone [facility], [facility] [address] [place] [address] Coordinator, [facility] [address] [place] [address] Allergies Active Allergy Reactions Criticality Noted Date Comments Adhesive Tape Other (Please comment),Hives High 09/29/2008 Caused welts Dextromethorphan-Gu aifenesin Neuro complications (Please comment) Medium 12/23/2021 Feels lightheaded/"foggy" documented as of this encounter (statuses as of 08/17/2023) Medications Medication Sig Dispensed Refills Start Date [...] before bedtime. 50 Cap 0 01/18/2021 Active Looxsuz-Molkkyalt-Vp nc 333-133-5 MG Oral Tablet Take 1 Tablet by mouth daily. 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),COPD, group D, by GOLD [...] Tablet (Lasix)Indications:C hronic diastolic congestive heart failure ([facility]) One tablet daily with an extra [...] as of this encounter (statuses as of 08/17/2023) Active Problems Problem Noted Date Diagnosed Date [...] as of this encounter (statuses as of 08/17/2023) Resolved Problems Problem Noted Date Diagnosed Date [...] as of this encounter (statuses as of 08/17/2023) Immunizations Name Administration Dates Next Due COVID-19 mRNA, LNP-s, No Pre serve, 2-Dose Series (Blossom) 07/11/2021,11/14/2020,10/24/2020 Covid-19, Mrna, Lnp-s, Pf, B ivalent, 30 Mcg, IM, 12 yrs and above (Blossom) 07/21/2022 Pneumococcal Conjugate Vacc, 13 Valent (Prevnar) 03/16/2015 Pneumococcal Conjugate Vacci ne, 20-valent ([id number]) 07/21/2022 Pneumococcal Polysaccharide PPV23 (Pneumovax) 03/05/2019,07/18/2007 SEASONAL [...] Telephone Encounter - Isaac Parker PA-C - 08/17/2023 4:52 PM EST Thank you. Really appreciate the time you spent gathering information. I was under the understanding that the machines at a recall for going back to the companies and they were replacing them. I am concerned about the fact that it has been that long since they took her machine. Is this something that [employer]ocket can help us push along? 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 Maybe we can Confer's with Oncology in pulmonology to follow up with the patient sooner to get the ball rolling on any therapy so that the underlying cause of her symptoms can be addressed. * Telephone Encounter - Lexy Tucker RN - 08/17/2023 4:13 PM EST When speaking with patient on 08/01/23,. She reported she had a CPAP machine, but they took it due to a recall. There was a piece of metal that could come dislodged and somehow get into her throat/chest while machine in use. Per patient., she was not able to have another CPAP given, but reason unclear.. It has been > 2 yrs since it was recalled. The CPAP was ordered on 10/25/21 by PITER Davies at [facility]. 02/23 New CPAP machine ordered 03/22/23 another order placed for new CPAP by sleep medicine. NO sleep study in 2 yrs, needed a new sleep study 04/06 new cpap order placed through [employer] portal Patient was then out of town in another state for a few months 06/04/23, pt in contact with triage nurse, stated Home Care equipment provider contacted her Sunday, they still DO NOT Have CPAP machine for her. NO acute symptoms reported that day 07/23 Pulmonary note, waiting to get CPAP back, was taken away since machine recalled. 08/10, pulmonary ordered Augment, will follow up after bronchoscopy 08/13, admitted to [facility] with pneumonia 08/15 Pulmonary, Bronchoscopy, Moraxella, some mold, Unclear if patient ever had an updated sleep study that would again qualify her for CPAP Carrie Tucker RN, BSN [facility] Intake Triage Coordinator [phone] * Telephone Encounter - Isaac Parker PA-C - 08/17/2023 3:39 PM EST [facility] Remote Medical Command Phone Encounter Thank you for your assistance in the care of this patient today. 82 year old year old female patient. Patient reports that she does not have a CPAP machine however it was ordered multiple times. Can we find out if she ever got the machine and if so where is it. She also has asleep study follow-up scheduled which would be to make sure that it is working and or ifit needs adjusted. Thus I am not inclined to change the order at this time. I will forward this message on to pulmonology and Oncology as this certainly can be related to the fact that she has a newly diagnosed small cell cancer of the lung. This note was prepared with the help of fluency and if there is any mis-spelled words , sentences or something which doesn't represent the content of the subject that could be technical error and please refer to the author for clarification. * Telephone Encounter - Melissa Almaraz RN - 08/17/2023 11:53 AM EST [facility] Telephonic Nurse Follow-Up Call [facility] Subprogram: Focused Care Management (3-9 months) Follow Up Call Type: 24 hour follow up Acute issue requiring follow-up call: Other: weakness/low BPs/low O2sats Objective: 08/10/2023 5:10 PM 08/10/2023 4:00 PM 08/10/2023 3:45 PM 08/10/2023 3:30 PM 08/10/2023 3:18 PM VITALS ACROSS ENCOUNTERS BP 105/49 126/63 137/59 121/65 Pulse 96 96 97 98 100 Lab Results Component Value Date PROTEIN - [...] 61 07/12/2023 Remote Patient Monitoring: AMC Scale: see below Oxygen Needs: NEW supplemental oxygen needs---pt may need increase in liter flow of oxygen during ambulation DME Needs: NO DME needs identified Medications: No medication or dose adjustments made during acute episode Subjective: Condition Status: No change in symptoms Current Concerns: Spoke with patient states + dizzy this am (Sitting on bed at first when she stood and began to walk her dizziness became worse) States O2 level was 84% on 2 LPM NC after standing and beginning to walk Verbalizes + RICHARD. Baseline SOB when sitting Using walker to ambulate Denies current distress,CP,wheezing,edema Using walker to ambulate + eating/drinking WNL Current O2 sitting 94% 2 LPM NC, HR 76, BP 131/77 Had patient stand w/ walker BP 95/57, HR 86 Advised to stay hydrated,change positions slowly Walk with assistance/walker at all times PC to [facility]. Spoke to medical records they are faxing hospital discharge records over to [facility] fax [phone] Fax received by francisco marquis who will scan in chart and forward to RNVALERIA and isaac Parker Sending to care teams Possible need for increased liter flow for oxygen during ambulation and additional recommendations regarding orthostatic hypotension Pt does not see cardiology until 11/2023 No upcoming pulm appt noted Note current O2 order in med list states 2.5 LPM bled thru cpap Pt does NOT have CPAP currently. Sleep test scheduled 10/2023 Can we update oxygen order Disposition: Routed to [facility] and/or [facility] Care Team for further advice Future Visits Scheduled: Future Appointments-next 60 days Date/Time Provider Specialty Dept Phone 08/18/2023 12:00 PM [facility], Nurse [facility] [phone] 08/21/2023 1:10 PM (Arrive by 12:55 PM) Patrica Chavis DO Family Medicine [phone] 08/30/2023 11:15 AM (Arrive by 11:00 AM) Martínez Lopes MD Hematology Oncology [phone] 09/03/2023 12:30 PM Lovely Bravo RDN [facility] [phone] 09/17/2023 9:40 AM (Arrive by 9:25 AM) Marycruz Almazan PA-C Dermatology [phone] 10/03/2023 10:30 AM (Arrive by 10:15 AM) Sosa Freeman CRNP Sleep Disorders [phone] 10/16/2023 11:30 AM (Arrive by 11:15 AM) Lizzette Silva CRNP Gastroenterology [phone] 12/10/2023 9:20 AM (Arrive by 9:05 AM) Rhys Humphrey MD Family Medicine [phone] 12/27/2023 11:00 AM (Arrive by 10:45 AM) Mi Neil PA-C Cardiology [phone] 03/18/2024 9:00 AM Nurse [facility] Ancillary [phone] Melissa Almaraz RN documented in this encounter Plan of Treatment Upcoming Encounters Date Type Department Care Team (Late st Contact Info) Description 08/18/2023 12:00 PM EST Home Visit [facility], [facility] [address] [facility] [place] [address] [facility], Nurse [facility] [address] [facility] [place] [address] 08/21/2023 1:10 PM EST Office Visit Family Medicine [address] [place] [phone] [place] [address] 08/30/2023 11:15 AM EST Office Visit Hematology/Oncology [facility] [address] [place] [address] Martínez Lopes MD [address] [place] [address] 09/03/2023 12:30 PM EST Nutrition Services [facility], [facility] [address] [place] [address] Lovely Bravo, SHAKIRN [address] [place] [address] 09/17/2023 9:40 AM EST Office Visit Dermatology [address] [place] [address] Marycruz Almazan PA-C [address] [place] [address] [place] [address] 10/03/2023 10:30 AM EST Office Visit Sleep Disorders Ctr Mariella [place] [address] [facility] [place] [phone] Sosa Freeman CRNP [address] [place] [address] 10/16/2023 11:30 AM EST Office Visit Gastroenterology, [facility] [address] [place] [address] Lizzette Silva CRNP [address] [place] [address] 12/10/2023 9:20 AM EDT Office Visit Family Medicine [address] [place] [phone] Rhys Humphrey MD [address] [place] [address] [place] [address] 12/27/2023 11:00 AM EDT Office Visit Cardiology [address] [place] [address] Mi Neil, CECI [address] [place] [address] 03/18/2024 9:00 AM EDT Nurse Only Ancillary [address] [place] [address] [place], Nurse Annual [address] [place] [address] Scheduled Procedures Name Priority Associated Diagnoses Date/Ti [...] D LEVEL ONCE IN A LIFETIME-USE SMARTSET# [id number] Completed 06/29/2020, 03/16/2015 Pneumococcal Vaccine: 65+ Years [...] Documents on File Type Date Recorded Patient Sanitary Engineering Teacher Expl anation POLST 10/15/2019 3:17 PM POLST POLST 03/05/2019 POLST FORM Advance Directives and Living Will 01/27/2013 LIVING WILL Advance Directives and Living Will 01/27/2013 LIVING WILL Power of Stock Preparer 01/27/2013 POWER OF A TTORNEY Power of Stock Preparer 01/27/2013 POWER OF A TTORNEY Healthcare Agents on File Name Relationship Healthcare Agent Relationship Communication Cydney Benito Other - (no specific identity) Second Alternate Health Care Agent Anyi More Adult Child Health Care Roberth r of Stock Preparer Care Teams Engineering Consultant Relationship Specialty Start Date End Date Rhys Humphrey MD [address] [place] [address] [place] [id number] PCP - General Family Medicine 06/09/21 documented as of this encounter
--- OUTSIDE RECORDS SUMMARY | 2023-10-29 06:27 | External Medical Summary | Summary of Care ---
Author Name Unknown Organization [facility] Address [address] [place] [address] Phone [phone] Care Team Providers Care Dye Reel Operator Name Role Phone Rhys Humphrey MD Primary Care Provide r Reason for Visit * Reason Onset Date Comments Hospital Follow-Up Pt states fee ling "alright, short of breath". Pt states she hasn't coughed much in the past 3 days. Pt would like to discuss biopsy results more. 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 30 Each 08/20/2023 Active documented as of this encounter (statuses as of 08/21/2023) Active Problems Problem Noted Date Diagnosed Date [...] as of this encounter (statuses as of 08/21/2023) Resolved Problems Problem Noted Date Diagnosed Date [...] as of this encounter (statuses as of 08/21/2023) Immunizations Name Administration Dates Next Due COVID-19 mRNA, LNP-s, No Pre serve, 2-Dose Series (Tabulous Cloud) 07/11/2021,11/14/2020,10/24/2020 Covid-19, Mrna, Lnp-s, Pf, B ivalent, 30 Mcg, IM, 12 yrs and above (Tabulous Cloud) 07/21/2022 Pneumococcal Conjugate Vacc, 13 Valent (Prevnar) 03/16/2015 Pneumococcal Conjugate Vacci ne, 20-valent ([id number]) 07/21/2022 Pneumococcal Polysaccharide PPV23 (Pneumovax) 03/05/2019,07/18/2007 SEASONAL [...] Sign Reading Time Taken Comments Blood Pressure 112/58 08/21/2023 1:11 PM EST Pulse 84 08/21/2023 1:11 PM EST Temperature 36.2 C (97.2 F) 08/21/2023 1 :11 PM EST Respiratory Rate - - Oxygen Saturation 97% 08/21/2023 1:1 1 PM EST O2: 2L/min Inhaled Oxygen Concentration - - Weight 67.9 kg (149 lb 12.8 oz) 023 1:11 PM EST Height - - Body Mass Index 25.7 08/10/2023 11:55 AM EST documented in this encounter Progress Notes * Patrica Chavis, - 08/21/2023 1:12 PM EST SUBJECTIVE: Keisha Linares is a 82 year old female. Chief Complaint Patient presents with Hospital Follow-Up Pt states feeling "alright, short of breath". Pt states she hasn't coughed much in the past 3 days.Pt would like to discuss biopsy results more. Hospital Follow-Up Recent Admission: Patient was recently admitted to [facility]. The date of discharge was 08/15/23. Discharge report received and reviewed. Admitted with acute hypoxic respiratory failure on 08/12/23 after a bronchoscopy done 08/10/23. Had respiratory problems following the bronchoscopy and was discharged on antibiotics but the coughing persisted and she presented to the emergency room. Pulse ox was in the 80s on presentation. Bronchial culture grew Moraxella catarrhalis. She was discharged on cefdinir. HPI: Keisha Linares presents today with her daughter Anyi for HD follow up. She overall feels better. Less coughing, more energy. Daughter notes color is better. Oxygen level has been good on 2L via NC but drops if she takes it off to shower/etc. She is tolerating her antibiotic without difficulty. She quit smoking in the remote past. She is aware of her cancer diagnosis but wants to know how long she has to live. Family/friends are helping to provide her with food. Appetite is okay. No pain, SOB. She is ambulating well with her walker. One dizzy spell since she came home. [facility] is involved in her care. Patient Active Problem List Diagnosis Code History [...] (HCC) C7A.1 Acute respiratory failure with hypoxia ([facility]) J96.01 Current Outpatient Medications Medication Sig Dispense Refill [...] and 1 Capsule before bedtime. 50 Cap Euudmve-Oonztxmuv-Twdl 333-133-5 MG Oral Tablet Take 1 Tablet [...] mouth every 6 hoursas needed for Cough. Cefdinir 300 MG Oral Capsule (Omnicef) Take 1 Capsule by mouth in the morning and 1 Capsule before bedtime. Fluticasone Furoate 100 MCG/ACT Inhalation Aerosol Powder Breath Activated (ARNUITY ellipta) Inhale1 Puff by mouth in the morning. In addition to anoro. 30 Each 11 Anoro Ellipta 62.5-25 MCG/ACT Inhalation Aerosol Powder Breath Activated (umeclidinium-vilanterol) Inhale 1 Puff by mouth in the morning. 30 Each 11 No current facility-administered medications for this visit. Current and discharge medications have been reconciled. Review of patient's allergies indicates: Allergen Reactions Adhesive Tape Other (Please comment) and Hives Caused welts Ginger Tussin Dm [Dextromethorphan-Guaifenesin] Neuro complications (Please comment) Feels lightheaded/"foggy" OBJECTIVE: BP 112/58 | Pulse 84 | Temp 36.2 C (97.2 F) | Wt 67.9 kg (149 lb 12.8 oz) | SpO2 97% Comment: O2: 2L/min | BMI 25.70 kg/m | BSA 1.75 m Review Of Systems: Skin: negative Eyes: negative Ears/Nose/Throat: negative Respiratory: see HPI Cardiovascular: negative Gastrointestinal: negative Genitourinary: negative Musculoskeletal: negative Neurologic: negative Psychiatric: negative Hematologic/Lymphatic/Immunologic: (+) lymphoma and small cell lung cancer Endocrine: negative PHYSICAL EXAM: General: alert, healthy, no distress, well nourished, and well developed Neck: supple, no adenopathy, thyroid normal size, non-tender, without nodularity Heart: regular rate & rhythm and no murmur Lungs: chest symmetric with normal AP diameter, no chest deformities noted, normal respiratory rateand rhythm, lungs clear to auscultation Abdomen: abdomen soft, non-tender, and normal bowel sounds Extremities: no joint deformities, effusion, or inflammation, no edema Neuro Exam: alert & oriented x 3 with fluent speech, no focal motor/sensory deficits, gait normal ASSESSMENT/PLAN: Hospital discharge follow-up (Primary) - DISCH MED RECON CUR MED LIS Acute respiratory failure with hypoxia (HCC) - continue oxygen 2L via NC Pneumonia due to Moraxella catarrhalis - finish cefdinir Obstructive pneumonia 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 Hopeful that Dr. Lopes will be able to discuss this with her in detail at her appointment in mid-August. Follow Up: Return for as scheduled. | For: as scheduled | Check-out note: Keep appt with Dr. Castillo.Make sure she gets an AVS today with her upcoming appointments. I spent a total of 40-54 minutes (exact time 46 mins) minutes on the date of service in preparation, delivery, and documentation of the care provided to Keisha Linares excluding any time spent in performance of separately billed services. Patrica Chavis DO documented in this encounter Plan of Treatment Upcoming Encounters Date Type Department Care Team (Late st Contact Info) Description 08/27/2023 12:30 PM EST Home Visit [facility], [facility] [address] [facility] [place] [address] Sarah Vitale, RAYNA [address] [facility] [place] [address] 09/03/2023 12:30 PM EST Nutrition Services [facility] [place], [facility] [address] [facility] [place] [address] Lovely Bravo RDN [address] [facility] [place] [address] 09/07/2023 10:30 AM EST Imaging Radiology [address] [facility] [place] [address] 09/10/2023 11:45 AM EST Imaging Radiology [address] [facility] [place] [address] 09/14/2023 3:15 PM EST Office Visit Hematology/Oncology [facility] [place] [address] [facility] [place] [address] Martínez Lopes MD [address] [facility] [place] [address] 09/17/2023 9:40 AM EST Office Visit Dermatology [address] [place] [address] Marycruz Almazan PA-C [address] [place] [address] [place] [address] 10/03/2023 10:30 AM EST Office Visit Sleep Disorders Ctr [facility] [address] [place] [phone] Sosa Freeman CRNP [address] [address] 10/16/2023 11:30 AM EST Office Visit Gastroenterology, [facility] [address] [place] [address] Lizzette Silva CRNP [address] [place] [address] 12/10/2023 9:20 AM EDT Office Visit Family Medicine [address] [place] [phone] Rhys Humphrey MD [address] [place] [address] [place] [address] 12/27/2023 11:00 AM EDT Office Visit Cardiology [address] [place] [address] Mi Neil PA-C [address] [place] [address] 03/18/2024 9:00 AM EDT Nurse Only Ancillary [address] [place] [address] [place], Nurse Annual Wellness [address] [place] [address] [place] [address] Scheduled Procedures Name Priority Associated Diagnoses Date/Ti [...] D LEVEL ONCE IN A LIFETIME-USE SMARTSET# [id number] Completed 06/29/2020, 03/16/2015 Pneumococcal Vaccine: 65+ Years [...] as of this encounter Visit Diagnoses Diagnosis Hospital discharge follow-up- Primary Other follow-up examination Acute respiratory failure with hypoxia (HCC) Acute respiratory failure Pneumonia due to Moraxella catarrhalis Pneumonia due to other gram-negative bacteria Obstructive pneumonia Pneumonia, organism unspecified 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 in this encounter Advance Directives Documents on File Type Date Recorded Patient General Car Supervisor Yard Expl anation POLST 10/15/2019 3:17 PM POLST POLST 03/05/2019 POLST FORM Advance Directives and Living Will 01/27/2013 LIVING WILL Advance Directives and Living Will 01/27/2013 LIVING WILL Power of Biomedical Electronics Technician 01/27/2013 POWER OF A TTORNEY Power of Biomedical Electronics Technician 01/27/2013 POWER OF A TTORNEY Healthcare Agents on File Name Relationship Healthcare Agent Relationship Communication Cydney Benito Other - (no specific identity) Second Alternate Health Care Agent Anyi More Adult Child Health Care Roberth r of Biomedical Electronics Technician Care Teams Dye Reel Operator Relationship Specialty Start Date End Date Rhys Humphrey MD [address] [place] [address] [place] [phone] PCP - General Family Medicine 06/09/21 documented as of this encounter
--- OUTSIDE RECORDS SUMMARY | 2023-10-29 06:27 | External Medical Summary | Summary of Care ---
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, left lower lobe (HCC) Mediastinal lymphadenopathy Procedures MRI BRAIN W WO CONTRAST Martínez Lopes MD [address] [place] [address] Referral ID Status Reason Start Date Expiration Date V isits Requested Visits Authorized [id number] Pending Review 08/21/2023 999 999 * Precert (Within 10 days (routine)) - Pending Review Specialty Diagnoses / Procedures Referred By Contac t Referred To Contact Radiology Diagnoses 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, left lower lobe (HCC) Mediastinal lymphadenopathy Procedures PET CT SKULL BASE TO MID-THIGH Martínez Lopes MD [address] [place] [address] Referral ID Status Reason Start Date Expiration Date V isits Requested Visits Authorized [id number] Pending Review 08/21/2023 999 999 Encounter Details Date Type Department Care Team (Late st Contact Info) Description 08/21/2023 Orders Only Hematology/Oncology [facility] Arvind Chiu [address] [place] [address] Martínez Lopes MD [address] [place] [address] Small cell lung cancer, left lower lobe (HCC)*; 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 50 Cap 0 01/18/2021 Active Lzfaxyp-Dvvjnjapy-Vu nc 333-133-5 MG Oral Tablet Take 1 [...] 3 months 60 g 1 07/16/2023 Active Additional Information Patient not taking.Reported on 08/18/2023 Benzonatate 100 MG Oral Capsule Take 1 [...] and 1 Capsule before bedtime. 0 08/16/2023 Active Fluticasone Furoate 100 MCG/ACT Inhalation Aerosol Powder Breath Activated (ARNUITY ellipta)Indications: COPD, moderate (HCC),COPD, group D, by GOLD 2017 classification (HCC) Inhale 1 Puff by mouth in the morning. In addition to anoro. 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),COPD, group D, by [...] mRNA, LNP-s, No Pre serve, 2-Dose Series ([employer] 07/11/2021,11/14/2020,10/24/2020 Covid-19, Mrna, Lnp-s, Pf, B ivalent, 30 Mcg, IM, 12 yrs and above ([employer] 07/21/2022 Pneumococcal Conjugate Vacc, 13 Valent (Prevnar) 03/16/2015 Pneumococcal Conjugate Vacci ne, 20-valent ([id number]) 07/21/2022 Pneumococcal Polysaccharide PPV23 (Pneumovax) 03/05/2019,07/18/2007 SEASONAL [...] as of this encounter Progress Notes * Martínez Lopes MD - 08/21/2023 6:56 AM EST 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 I see her on 08/30/2023. documented in this encounter Plan of Treatment Upcoming Encounters Date Type Department Care Team (Late st Contact Info) Description 08/21/2023 1:10 PM EST Office Visit Family Medicine [address] [place] [phone] [place] [address] 08/27/2023 12:30 PM EST [facility] Visit [facility], [facility] [place] [address] Sarah Vitale RN [address] [place] [address] 08/30/2023 11:15 AM EST Office Visit Hematology/Oncology [facility] [address] [facility] [place] [address] Martínez Lopes MD [address] [facility] [place] [address] 09/03/2023 12:30 PM EST Nutrition Services [facility], [facility] [address] [facility] [place] [address] Lovely Bravo, SHAKIRN [address] [facility] [place] [address] 09/17/2023 9:40 AM EST Office Visit Dermatology [address] [place] [address] Marycruz Almazan PA-C [address] [place] [address] [place] [address] 10/03/2023 10:30 AM EST Office Visit Sleep Disorders Ctr [facility] [address] [place] [phone] Sosa Freeman CRNP [address] [place] [address] 10/16/2023 11:30 AM EST Office Visit Gastroenterology, [facility] [address] [place] [address] Lizzette Silva CRNP [address] [place] [address] 12/10/2023 9:20 AM EDT Office Visit Family Medicine [address] [place] [phone] Rhys Humphrey MD [address] [place] [address] [place] [address] 12/27/2023 11:00 AM EDT Office Visit Cardiology [address] [place] [address] Mi Neil PA-C [address] [place] [address] 03/18/2024 9:00 AM EDT Nurse Only Ancillary [address] [place] [address] [place], Nurse Annual [address] [place] [address] Scheduled Orders Name Type Priority Associated Diagnoses Orde r Schedule PET CT SKULL BASE TO MID-THIGH Medical Imaging Routine 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, left lower lobe (HCC) Mediastinal lymphadenopathy Ordered: 08/21/2023 MRI BRAIN W WO CONTRAST Medical Imaging Routine 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, left lower lobe (HCC) Mediastinal lymphadenopathy Ordered: 08/21/2023 Scheduled Procedures Name Priority Associated Diagnoses Date/Ti [...] D LEVEL ONCE IN A LIFETIME-USE SMARTSET# [id number] Completed 06/29/2020, 03/16/2015 Pneumococcal Vaccine: 65+ Years [...] this encounter Visit Diagnoses Diagnosis Small cell lung cancer, left lower lobe (HCC)- Primary 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 Mediastinal lymphadenopathy Enlargement of lymph nodes documented in this encounter Advance Directives Documents on File Type Date Recorded Patient Management Analyst Expl anation POLST 10/15/2019 3:17 PM POLST POLST 03/05/2019 POLST FORM Advance Directives and Living Will 01/27/2013 LIVING WILL Advance Directives and Living Will 01/27/2013 LIVING WILL Power of Police Clerk 01/27/2013 POWER OF A TTORNEY Power of Police Clerk 01/27/2013 POWER OF A TTORNEY Healthcare Agents on File Name Relationship Healthcare Agent Relationship Communication Cydney Benito Other - (no specific identity) Second Alternate Health Care Agent Anyi More Adult Child Health Care Roberth r of Police Clerk Care Teams Blade Operator Relationship Specialty Start Date End Date Rhys Humphrey MD [address] [place] [address] [place] [address] PCP - General Family Medicine 06/09/21 documented as of this encounter
--- OUTSIDE RECORDS SUMMARY | 2023-10-29 06:27 | External Medical Summary | Summary of Care ---
Author Name Unknown Organization [facility] Address [address] [place] [address] Phone [phone] Care Team Providers Care Spinning Room Worker Name Role Phone Rhys Humphrey MD Primary Care Provide r Reason for Visit * Reason Comments [facility]: Maintenance Encounter Details Date Type Department Care Team (Late st Contact Info) Description 08/18/2023 12:00 PM EST Home Visit [facility], [facility] [address] [place] [address] [facility], Nurse [facility] [address] [place] [address] Allergies Active Allergy Reactions Criticality Noted Date Comments Adhesive Tape Other (Please comment),Hives High 09/29/2008 Caused welts Dextromethorphan-Gu aifenesin Neuro complications (Please comment) Medium 12/23/2021 Feels lightheaded/"foggy" documented as of this encounter (statuses as of 08/18/2023) Medications Medication Sig Dispensed Refills Start Date [...] Each 0 0 Active Nebulizers (NEBULIZER COMPRESSOR) MISCIndications: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 Use as directed. 1 Each 1 0 Active Iron 325 (65 Fe) MG Oral Tablet Take 1 Tablet by mouth daily. 0 Active Cranberry 500 MG Oral Capsule Take 1 Capsule by mouth in the morning and 1 Capsule before bedtime. 50 Cap 0 1 Active Pftachu-Xisosnqrp-O inc 333-133-5 MG Oral Tablet Take 1 Tablet by mouth daily. 0 Active Anoro Ellipta 62.5-25 MCG/INH Inhalation Aerosol Powder Breath Activated (umeclidinium-vilan terol)Indications:C OPD, moderate (HCC),COPD, group D, by GOLD 2017 classification ([facility]) Inhale by mouth 1 Puff in [...] 3 months 60 g 1 3 Active Additional Information Patient [...] morning and 1 Capsule before bedtime. 0 3 08/24/20 23 Active Amoxicillin-Pot Clavulanate 875-125 MG Oral Tablet (Augmentin) Take 1 Tablet by mouth in the morning and 1 Tablet before bedtime. 14 Tablet 0 3 08/18/20 23 Discontinued documented as of this encounter (statuses as of 08/18/2023) Active Problems Problem Noted Date Diagnosed Date [...] aortic valve stenosis 03/31/2011 Overview: Mod-severe per NADREA 01/31/11 Last Assessment & Plan: Stable Following [...] as of this encounter (statuses as of 08/18/2023) Resolved Problems Problem Noted Date Diagnosed Date [...] as of this encounter (statuses as of 08/18/2023) Immunizations Name Administration Dates Next Due COVID-19 mRNA, LNP-s, No Pre serve, 2-Dose Series ([employer]) 07/11/2021,11/14/2020,10/24/2020 Covid-19, Mrna, Lnp-s, Pf, B ivalent, 30 Mcg, IM, 12 yrs and above ([employer]) 07/21/2022 Pneumococcal Conjugate Vacc, 13 Valent (Prevnar) 03/16/2015 Pneumococcal Conjugate Vacci ne, 20-valent ([id number]) 07/21/2022 Pneumococcal Polysaccharide PPV23 (Pneumovax) 03/05/2019,07/18/2007 SEASONAL [...] Sign Reading Time Taken Comments Blood Pressure 140/64 08/18/2023 11:27 AM EST Pulse 82 08/18/2023 11:27 AM EST Temperature 37.2 C (98.9 F) 08/18/2023 1 1:27 AM EST Respiratory Rate 18 08/18/2023 11:2 7 AM EST Oxygen Saturation 93% 08/18/2023 11: 27 AM EST o2 on at 2 l/min via nc Inhaled Oxygen Concentration - - Weight 67.3 kg (148 lb 6.4 oz) 08/18/2023 11:27 AM EST Height - - Body Mass Index 25.46 08/10/2023 11:55 AM EST documented in this encounter Progress Notes * Agustina Diehl RN - 08/18/2023 10:37 AM EST Images from the original note were not included. [facility] Heavy Equipment Sales Manager Visit Date: 08/18/2023 Time: 11:07 AM Name: Keisha Linares : 1940 Current Concerns: Pt seen for YVONNE #1 Admitted to [facility] 08/12 - 08/15/23 , following Bronchoscopy at [facility] Dx: Post obstructive Pneumonia Augmentin was stopped and pt sent home on week course of Cefdinir and Hycodan cough syrup q 6 hrs prn cough Has not taken cough syrup yet -states she was afraid to, did not have a measuring device Provided pt with syringe and showed her how to measure Pt reports to does continue to have a cough but it is not as bad as before hospitalization No mucus production Noted rhonchi throughout lung collier Pt states she is feeling really well today Planning on going to friend's apartment this afternoon to watch [employer] game Wearing oxygen at 2 l/min via NC and will take portable tank with her She is anxious to speak with Dr. Lopes on 08/30 regarding her new dx of lung cancer Wt today is 148.4 lbs Euvolemic today Physical Exam: BP 140/64 | Pulse 82 | Temp 37.2 C (98.9 F) | Resp 18 | Wt 67.3 kg (148 lb 6.4 oz) | SpO2 93% Comment: o2 on at 2 l/min via nc | BMI 25.46 kg/m | BSA 1.74 m Pain 0 Physical Exam Constitutional: General: She is not in acute distress. Cardiovascular: Rate and Rhythm: Normal rate. Pulses: Normal pulses. Heart sounds: Normal heart sounds. Pulmonary: Effort: Pulmonary effort is normal. Breath sounds: Rhonchi present. Abdominal: General: Bowel sounds are normal. Skin: General: Skin is warm and dry. Neurological: Mental Status: She is alert and oriented to person, place, and time. Problems/Symptoms: Review of Systems Constitutional: Negative. HENT: Negative. Respiratory: Positive for cough (nonproductive) and shortness of breath (RICHARD - at baseline). Cardiovascular: Negative. Gastrointestinal: Negative. Genitourinary: Negative. Skin: Negative. Neurological: Negative. Psychiatric/Behavioral: Negative. Medication Reconciliation: (See medication list) Does patient take medications as ordered: Yes Patient Well Being: PHQ2/9: No questionnaires available. No change in living situation Denies falls [facility]-10 Completed this Visit: Yes. [facility]-10: Reason Completed: Status post ED visit/hospital admission [facility]-10 Interventions: Fall education provided, reviewed/provided Fall brochure Reinforcement/Education: Educated on home safety: Create a fall proof home Clear floors of clutter, loose wires, throw rugs, and cords. Make sure halls, stairways, and entrances are well lit. Install a nightlight in your bedroom, hallway and bathroom. Install grab bars or handrails in the bathroom and on stairs. Use a non-skid tub/shower mat. Avoid climbing on a chair; instead use a step stool with a high handrail. Keep sidewalks and steps in good repair Keep steps and sidewalks free of snow and ice. Using aids to support and prevent falls If you have poor balance or have fallen in the past, consider additional support such as a cane or walker. Use a cane with good support and that is the proper length for you. Use a walker if a cane doesnt provide enough support. Avoid medications that increase the risk of falling by causing dizziness, change in sensation or slowed reflexes. Certain medicines may cause falls - blood pressure pills, heart medicines, water pills, or sleepingpills. Be sure to understand each medicine that you are taking and any side effects that may occur. Improve your balance and flexibility with muscle strengthening exercises. Ask your health care provider for some exercises that will be right for you. COPD: Pt instructed to: -Call with increased SOB, wheezing, chest tightness, increased cough, increased sputum with change in color or consistency and fever. -Wash hands often -Drink plenty of fluids -Use inhalers as directed, do not stop or skip doses -Avoid stress -Rest when tired or SOB -Avoid triggers -Clean inhalers once a week Reviewed HF symptom monitoring: -Weigh self daily [...] if at night -increased fatigue or vertigo Reinforced safety education and fall prevention. and Reinforced medication regimen. Timing., Dosing., and Purspose. Treatment/Plan: Continue meds as prescribed Continue daily wts and bp monitoring via [facility] Oxygen on at 2 l/min via ak continuously Complete entire course of abx Hycodan cough syrup prn F/u with oncology on 08/30 F/u with pcp next week Home Interventions Provided: Home Intervention: Other; evaluation Reinforced current Plan of Care, including self-management and medication regimen Patient Needs to Remember: Call [facility] at with any new or worsening health concerns or problems, red flag symptoms. Referrals Needed: Other none Follow Up: Is there cellular connectivity/connectivity in the home? Yes Does the patient have internet in the home? Yes Patient encouraged to call the intake phone number for all urgent but not emergent issues. Is the patient new to [email or web address] within the last 30 days? No, Assess appropriateness for upcoming telehealth visits. Cancel telehealth visits & schedule home visit with care cdl team truck driver(s)as indicated. Provider is in agreement with Plan of Care: Yes Scheduled to follow up with patient per YVONNE schedule - 08/27 with RNCM Agustina Diehl RN 08/18/2023 11:07 AM documented in this encounter Plan of Treatment Upcoming Encounters Date Type Department Care Team (Late st Contact Info) Description 08/21/2023 1:10 PM EST Office Visit Family Medicine [address] [place] [phone] [address] [place] [address] 08/27/2023 12:30 PM EST Home Visit [facility], [facility] [address] [facility] [place] [address] Sarah Vitale RN [address] [facility] [place] [address] 08/30/2023 11:15 AM EST Office Visit Hematology/Oncology [facility] [address] [place] [address] Martínez Lopes MD [address] [place] [address] 09/03/2023 12:30 PM EST Nutrition Services [facility], [facility] [address] [facility] [address] Lovely Bravo RDN [address] [facility] [place] [address] 09/17/2023 9:40 AM EST Office Visit Dermatology [address] [place] [address] Marycruz Almazan PA-C [address] [place] [address] [place] [address] 10/03/2023 10:30 AM EST Office Visit Sleep Disorders Ctr [facility] [address] [place] [phone] Sosa Freeman CRNP [address] [place] [address] 10/16/2023 11:30 AM EST Office Visit Gastroenterology, [facility] [address] [place] [address] Lizzette Silva CRNP [address] [place] [address] 12/10/2023 9:20 AM EDT Office Visit Family Medicine [address] [place] [phone] Rhys Humphrey MD [address] [place] [address] [place] [address] 12/27/2023 11:00 AM EDT Office Visit Cardiology [address] [place] [address] Mi Neil PA-C [address] [place] [address] 03/18/2024 9:00 AM EDT Nurse Only Ancillary [address] [place] [address] [place], Nurse Annual [address] [place] [address] Scheduled Procedures Name Priority Associated Diagnoses Date/Ti [...] D LEVEL ONCE IN A LIFETIME-USE SMARTSET# [id number] Completed 06/29/2020, 03/16/2015 Pneumococcal Vaccine: 65+ Years [...] Documents on File Type Date Recorded Patient Online Trader Expl anation POLST 10/15/2019 3:17 PM POLST POLST 03/05/2019 POLST FORM Advance Directives and Living Will 01/27/2013 LIVING WILL Advance Directives and Living Will 01/27/2013 LIVING WILL Power of Him Specialist 01/27/2013 POWER OF A TTORNEY Power of Him Specialist 01/27/2013 POWER OF A TTORNEY Healthcare Agents on File Name Relationship Healthcare Agent Relationship Communication Cydney Benito Other - (no specific identity) Second Alternate Health Care Agent Anyi More Adult Child Health Care Roberth cooper of Him Specialist Care Teams Spinning Room Worker Relationship Specialty Start Date End Date Rhys Humphrey MD [address] [place] [address] [place] [phone] PCP - General Family Medicine 06/09/21 documented as of this encounter
--- OUTSIDE RECORDS SUMMARY | 2023-10-29 06:27 | External Medical Summary | Summary of Care ---
Author Name Unknown Organization [facility] Address [address] [place] [address] Phone [phone] Care Team Providers Care Professional Services Specialist Name Role Phone Rhys Humphrey MD Primary Care Provide r Reason for Visit * Reason Onset Date Comments [facility]: Maintenance 08/17/2023 Encounter Details Date Type Department Care Team (Late st Contact Info) Description 08/17/2023 9:30 AM EST Scheduled Telephone [facility] [address] [place] [address] Coordinator, [facility] [address] [place] [address] Allergies Active Allergy Reactions Criticality Noted Date Comments Adhesive Tape Other (Please comment),Hives High 09/29/2008 Caused welts Dextromethorphan-Gu aifenesin Neuro complications (Please comment) Medium 12/23/2021 Feels lightheaded/"foggy" documented as of this encounter (statuses as of 08/20/2023) Medications Medication Sig Dispensed Refills Start Date [...] Each 0 0 Active Nebulizers (NEBULIZER COMPRESSOR) MISCIndications: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 Use as directed. 1 Each 1 0 Active Iron 325 (65 Fe) MG Oral Tablet Take 1 Tablet by mouth daily. 0 Active Cranberry 500 MG Oral Capsule Take 1 Capsule by mouth in the morning and 1 Capsule before bedtime. 50 Cap 0 1 Active Eexlnat-Yloipprwv-W inc 333-133-5 MG Oral Tablet Take 1 Tablet by mouth daily. 0 Active Anoro Ellipta 62.5-25 MCG/INH Inhalation Aerosol Powder Breath Activated (umeclidinium-vilan terol)Indications:C OPD, moderate (HCC),COPD, group D, by GOLD 2017 classification ([facility]) Inhale by mouth 1 Puff in [...] for Cough. 30 Capsule 0 3 Active Amoxicillin-Pot Clavulanate 875-125 MG Oral Tablet (Augmentin) Take 1 Tablet by mouth in the morning and 1 Tablet before bedtime. 14 Tablet 0 3 08/18/20 23 Discontinued documented as of this encounter (statuses as of 08/20/2023) Active Problems Problem Noted Date Diagnosed Date [...] as of this encounter (statuses as of 08/20/2023) Resolved Problems Problem Noted Date Diagnosed Date [...] as of this encounter (statuses as of 08/20/2023) Immunizations Name Administration Dates Next Due COVID-19 mRNA, LNP-s, No Pre serve, 2-Dose Series (Nephros) 07/11/2021,11/14/2020,10/24/2020 Covid-19, Mrna, Lnp-s, Pf, B ivalent, 30 Mcg, IM, 12 yrs and above (Nephros) 07/21/2022 Pneumococcal Conjugate Vacc, 13 Valent (Prevnar) 03/16/2015 Pneumococcal Conjugate Vacci ne, 20-valent ([id number]) 07/21/2022 Pneumococcal Polysaccharide PPV23 (Pneumovax) 03/05/2019,07/18/2007 SEASONAL [...] Telephone Encounter - Melissa Almaraz RN - 08/20/2023 10:02 AM EST Per 12/29/22 note patient attempted sleep study at home but was having issues Spoke with [facility] pt will need new sleep study to obtain new CPAP Sleep study appt on 10/03/22 is a follow up with provider regarding this testing Pt was suppose to have appt 06/25/23 as follow up but appt was cancelled PC to patient today for status check. No answer. Left M to return call to [facility] If patient calls back please review above with patient and tell her to discuss with sleep study doctor Pulmonary please see Jay parker note from 08/17/23 Apnea Device (Oldest Message First) December 29, 2022 Rin Munoz, RPSGT 12/29/22 3:31 AM Note Upon download and scoring of HST, it was noted that only 4 hours and 38 minutes had been recorded. Out of that recording time, the study was missing large portions of PTAF. The patient had called [facility] sleep lab as she was having difficulty getting the HST set up and she was assisted over the phone but seems like she still had difficulty completing the study. The study needs repeated. r 12/29/22 note * Telephone Encounter - Isaac Parker PA-C [...] took her machine. Is this something that [facility] can help us push along? Also note [...] ordered on 10/25/21 by PITER Davies at [facility]. 02/23 New CPAP machine ordered 03/22/23 another order placed for new CPAP by sleep medicine. NO sleep study in 2 yrs, needed a new sleep study 04/06 new cpap order placed through [employer] portal Patient was then out of town [...] follow up after bronchoscopy 08/13, admitted to [facility] with pneumonia 08/15 Pulmonary, Bronchoscopy, Moraxella, some mold, Unclear if patient ever had an updated sleep study that would again qualify her for CPAP Carrie Tucker RN, BSN [facility] Intake Triage Coordinator [phone] * Telephone Encounter - Isaac Parker PA-C - 08/17/2023 3:39 PM EST [facility] Remote Medical [...] Almaraz RN - 08/17/2023 11:53 AM EST [facility] Telephonic Nurse Follow-Up Call [facility] Subprogram: Focused Care Management (3-9 months) Follow [...] with assistance/walker at all times PC to [facility]. Spoke to medical records they are faxing hospital discharge records over to [facility] fax [phone] Fax received by francisco marquis who will [...] we update oxygen order Disposition: Routed to [facility] and/or [facility] at Home Care Team for further advice Future Visits Scheduled: Future Appointments-next 60 days Date/Time Provider Specialty Dept Phone 08/18/2023 12:00 PM Barber, Nurse [facility] Maximiliano Rapp at Home [phone] 08/21/2023 1:10 PM (Arrive by 12:55 PM) Patrica Chavis DO Family Medicine [phone] 08/30/2023 11:15 AM (Arrive by 11:00 AM) Martínez Lopes MD Hematology Oncology [phone] 09/03/2023 12:30 PM Lovely Bravo, SHAKIRN [facility] [phone] 09/17/2023 9:40 AM (Arrive by 9:25 AM) Marycruz Almazan PA-C Dermatology [phone] 10/03/2023 10:30 AM (Arrive by 10:15 AM) Sosa Freeman CRNP Sleep Disorders [phone] 10/16/2023 11:30 AM (Arrive by 11:15 AM) Lizzette Silva CRNP Gastroenterology [phone] 12/10/2023 9:20 AM (Arrive by 9:05 AM) Rhys Humphrey MD Family Medicine [phone] 12/27/2023 11:00 AM (Arrive by 10:45 AM) Mi Neil PA-C Cardiology [phone] 03/18/2024 9:00 AM Nurse Stanton [facility] [phone] Melissa Almaraz RN documented in this encounter Plan of Treatment Upcoming Encounters Date Type Department Care Team (Late st Contact Info) Description 08/21/2023 1:10 PM EST Office Visit Family Medicine [address] [place] [phone] Patrica Chavis DO [address] [place] [address] [place] [address] 08/27/2023 12:30 PM EST Home Visit [facility] [address] [facility] [place] [address] Sarah Vitale RN [address] [place] [address] 08/30/2023 11:15 AM EST Office Visit Hematology/Oncology [facility] [place] [address] [place] [address] Martínez Lopes MD [address] [place] [address] 09/03/2023 12:30 PM EST Nutrition Services [facility], [facility] [address] [facility] [place] [address] Lawrence Lovely Shilpa, RDN [address] [facility] [place] [address] 09/17/2023 9:40 AM EST Office Visit Dermatology [address] [place] [address] Marycruz Almazan PA-C [address] [place] [address] [place] [address] 10/03/2023 10:30 AM EST Office Visit Sleep Disorders [facility] [address] [place] [phone] Sosa Freeman CRNP [address] [place] [address] 10/16/2023 11:30 AM EST Office Visit Gastroenterology, [facility] [address] [place] [address] Lizzette Silva CRNP [address] [place] [address] 12/10/2023 9:20 AM EDT Office Visit Family Medicine [address] [place] [phone] Rhys Humphrey MD [address] [place] [address] [place] [address] 12/27/2023 11:00 AM EDT Office Visit Cardiology [address] [place] [address] Mi Neil PA-C [address] [place] [address] 03/18/2024 9:00 AM EDT Nurse Only Ancillary [address] [place] [address] [place], Nurse Annual [address] [place] [address] Scheduled Procedures Name Priority Associated Diagnoses Date/Ti [...] D LEVEL ONCE IN A LIFETIME-USE SMARTSET# [id number] Completed 06/29/2020, 03/16/2015 Pneumococcal Vaccine: 65+ Years [...] Documents on File Type Date Recorded Patient Dampener Expl anation POLST 10/15/2019 3:17 PM POLST POLST 03/05/2019 POLST FORM Advance Directives and Living Will 01/27/2013 LIVING WILL Advance Directives and Living Will 01/27/2013 LIVING WILL Power of Pinking Machine Operator 01/27/2013 POWER OF A TTORNEY Power of Pinking Machine Operator 01/27/2013 POWER OF A TTORNEY Healthcare Agents on File Name Relationship Healthcare Agent Relationship Communication Cydney Benito Other - (no specific identity) Second Alternate Health Care Agent Anyi More Adult Child Health Care Roberth r of Pinking Machine Operator Care Teams Professional Services Specialist Relationship Specialty Start Date End Date Rhys Humphrey MD [address] [place] [address] [place] [phone] PCP - General Family Medicine 06/09/21 documented as of this encounter
--- OUTSIDE RECORDS SUMMARY | 2023-10-29 06:27 | External Medical Summary | Summary of Care ---
Author Name Unknown Organization [facility] Address [address] [place] [address] Phone [phone] Care Team Providers Care Master Planner Name Role Phone Rhys Humphrey MD Primary Care Provide r Reason for Visit * Reason Onset Date Comments [facility]: Maintenance 08/17/2023 Encounter Details Date Type Department Care Team (Late st Contact Info) Description 08/17/2023 9:30 AM EST Scheduled Telephone [facility], [facility] [address] [place] [address] Coordinator, [facility] [address] [place] [address] Allergies Active Allergy Reactions Criticality Noted Date [...] :Chronic diastolic congestive heart failure ([facility]) One tablet daily with an [...] mRNA, LNP-s, No Pre serve, 2-Dose Series (Thermodynamic Process Control) 07/11/2021,11/14/2020,10/24/2020 Covid-19, Mrna, Lnp-s, Pf, B ivalent, 30 Mcg, IM, 12 yrs and above (Pfizer) 07/21/2022 Pneumococcal Conjugate Vacc, 13 Valent (Prevnar) 03/16/2015 Pneumococcal Conjugate Vacci ne, 20-valent ([id number]) 07/21/2022 Pneumococcal Polysaccharide PPV23 (Pneumovax) 03/05/2019,07/18/2007 SEASONAL [...] Telephone Encounter - Surjit Fernandez MD - 08/20/2023 4:58 PM EST I called patient's daughter on 08/16 and discussed the cytology result - malignant. They already have appointment with oncologist at the end of the month Thank you * Telephone Encounter - Melissa Almaraz RN [...] answer. Left M to return call to [facility] If patient calls back please review above with patient and tell her to discuss with sleep study doctor Pulmonary please see Jay parker note from 08/17/23 Apnea Device (Oldest Message First) December 29, 2022 Rin Munoz, RPS 12/29/22 3:31 AM Note Upon download and scoring of HST, it was noted that only 4 hours and 38 minutes had been recorded. Out of that recording time, the study was missing large portions of PTAF. The patient had called [facility] sleep lab as she was having difficulty [...] took her machine. Is this something that [facility] can help us push along? Also note [...] ordered on 10/25/21 by PITER Davies at [facility]. 02/23 New CPAP machine ordered 03/22/23 another order placed for new CPAP by sleep medicine. NO sleep study in 2 yrs, needed a new sleep study 04/06 new cpap order placed through [employer] portal Patient was then out of town [...] follow up after bronchoscopy 08/13, admitted to [facility] with pneumonia 08/15 Pulmonary, Bronchoscopy, Moraxella, some mold, Unclear if patient ever had an updated sleep study that would again qualify her for CPAP Carrie Tucker RN, BSN [facility] Intake Triage Coordinator [phone] * Telephone Encounter - Isaac Parker PA-C [...] [facility] Telephonic Nurse Follow-Up Call [facility] Subprogram: Focused Care Management (3-9 months) [...] with assistance/walker at all times PC to [facility]. Spoke to medical records they are faxing hospital discharge records over to [facility] fax [phone] Fax received by francisco marquis who will [...] we update oxygen order Disposition: Routed to [facility] and/or [facility] Care Team for further advice Future Visits Scheduled: Future Appointments-next 60 days Date/Time Provider Specialty Dept Phone 08/18/2023 12:00 PM Region, Nurse Cedric Maximiliano [facility] [phone] 08/21/2023 1:10 PM (Arrive by 12:55 PM) Patrica Chavis DO Family Medicine [phone] 08/30/2023 11:15 AM (Arrive by 11:00 AM) Martínez Lopes MD Hematology Oncology [phone] 09/03/2023 12:30 PM Lovely Bravo RDN [facility] [phone] 09/17/2023 9:40 AM (Arrive by 9:25 AM) Marycruz Almazan PA-C Dermatology [phone] 10/03/2023 10:30 AM (Arrive by 10:15 AM) Sosa Freeman CRNP Sleep Disorders [phone] 10/16/2023 11:30 AM (Arrive by 11:15 AM) Lizzette Silva CRNP Gastroenterology [phone] 12/10/2023 9:20 AM (Arrive by 9:05 AM) Rhys Humphrey MD Family Medicine [phone] 12/27/2023 11:00 AM (Arrive by 10:45 AM) Mi Neil PA-C Cardiology [phone] 03/18/2024 9:00 AM Stanton Nurse [facility] [phone] Melissa Almaraz RN documented in this encounter Plan of Treatment Upcoming Encounters Date Type Department Care Team (Late st Contact Info) Description 08/21/2023 1:10 PM EST Office Visit Family Medicine [address] [phone] Patrica Chavis DO [address] [place] [address] [place] [address] 08/27/2023 12:30 PM EST Home Visit [facility], [facility] [address] [facility] [place] [address] Sarah Vitale RN [address] [facility] [place] [address] 08/30/2023 11:15 AM EST Office Visit Hematology/Oncology [facility] [address] [place] [address] Martínez Lopes MD [address] [place] [address] 09/03/2023 12:30 PM EST Nutrition Services [facility], [facility] [address] [place] [address] Lovely Bravo, RDN [address] [facility] [place] [address] 09/17/2023 9:40 AM EST Office Visit Dermatology [address] [place] [address] Marycruz Almazan PA-C [address] [place] [address] [place] [address] 10/03/2023 10:30 AM EST Office Visit Sleep Disorders [facility] [address] [facility] [place] [phone] Sosa Freeman CRNP [address] [place] [address] 10/16/2023 11:30 AM EST Office Visit Gastroenterology, [facility] [address] [place] [address] Lizzette Silva CRNP [address] [place] [address] 12/10/2023 9:20 AM EDT Office Visit Family Medicine [address] [place] [phone] Rhys Humphrey MD [address] [place] [address] [place] [address] 12/27/2023 11:00 AM EDT Office Visit Cardiology [address] [place] [address] Mi Neil PA-C [address] [place] [address] 03/18/2024 9:00 AM EDT Nurse Only Ancillary [address] [place] [address] [place], Nurse Annual Wellness [address] [place] [address] [place] [address] Scheduled Procedures Name Priority Associated Diagnoses Date/Ti [...] D LEVEL ONCE IN A LIFETIME-USE SMARTSET# [id number] Completed 06/29/2020, 03/16/2015 Pneumococcal Vaccine: 65+ Years [...] Documents on File Type Date Recorded Patient Coding Tech Expl anation POLST 10/15/2019 3:17 PM POLST POLST 03/05/2019 POLST FORM Advance Directives and Living Will 01/27/2013 LIVING WILL Advance Directives and Living Will 01/27/2013 LIVING WILL Power of Foam Tank Laminator 01/27/2013 POWER OF A TTORNEY Power of Foam Tank Laminator 01/27/2013 POWER OF A TTORNEY Healthcare Agents on File Name Relationship Healthcare Agent Relationship Communication Cydney Benito Other - (no specific identity) Second Alternate Health Care Agent Anyi More Adult Child Health Care Roberth r of Foam Tank Laminator Care Teams Master Planner Relationship Specialty Start Date End Date Rhys Humphrey MD [address] [place] [address] [place] [address] PCP - General Family Medicine 06/09/21 documented as of this encounter
--- OUTSIDE RECORDS SUMMARY | 2023-10-29 06:27 | External Medical Summary | Summary of Care ---
Author Name Unknown Organization [facility] Address [address] [place] [address] Phone [phone] Care Team Providers Care Disability Aide Name Role Phone Ollie Gonzalez MD Primary Care Provide r Reason for Visit * Reason Onset Date Comments Medication Refill 08/18/2023 Encounter Details Date Type Department Care Team (Late st Contact Info) Description 08/18/2023 Refill [facility], [place] [facility] [address] [place] [address] Agustina Diehl, RN [address] [place] [address] Moderate obstructive and restrictive lung disease; COPD, group D, by GOLD 2017 classification ([facility]) Allergies Active Allergy Reactions Criticality Noted [...] Each 0 11/11/2019 Active Nebulizers (NEBULIZER COMPRESSOR) MISCIndications: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 Use as directed. 1 Each 1 11/17/2019 Active Iron 325 (65 Fe) MG Oral Tablet Take 1 Tablet by mouth daily. 0 Active Cranberry 500 MG Oral Capsule Take 1 Capsule by mouth in the morning and 1 Capsule before bedtime. 50 Cap 0 01/18/2021 Active Mycqlhm-Llegasvcs-L inc 333-133-5 MG Oral Tablet Take 1 [...] :COPD, group D, by GOLD 2017 classification ([facility] [...] Tablet (Lasix)Indications: Chronic diastolic congestive heart failure ([facility]) One tablet daily with an [...] the morning. 30 Each 11 08/20/2023 Active Anoro Ellipta 62.5-25 MCG/INH Inhalation Aerosol Powder Breath Activated (umeclidinium-vilan terol)Indications:C OPD, moderate (HCC),COPD, group D, by GOLD 2017 classification (HCC) Inhale by mouth 1 Puff in the morning. 30 Each 11 08/02/2022 3 Discontinu ed(Refill) Fluticasone Furoate 100 MCG/ACT Inhalation Aerosol Powder Breath Activated (ARNUITY ellipta) Inhale by mouth 1 Puff in the morning. In addition to anoro. 30 Each 11 08/02/2022 3 Discontinu ed(Refill) documented as of this [...] (Prevnar) 03/16/2015 Pneumococcal Conjugate Vacci ne, 20-valent ([id number]) 07/21/2022 Pneumococcal Polysaccharide PPV23 (Pneumovax) 03/05/2019,07/18/2007 SEASONAL [...] Telephone Encounter - Ollie Gonzalez MD - 08/20/2023 10:55 AM EST Signed Prescriptions: Disp Refills Fluticasone Furoate 100 MCG/ACT Inhalation*30 Each11 Sig: Inhale 1 Puff by mouth in the morning. In addition to anoro. Authorizing Provider: OLLIE GONZALEZ Anoro Ellipta 62.5-25 MCG/ACT Inhalation A*30 Each11 Sig: Inhale 1 Puff by mouth in the morning. Authorizing Provider: OLLIE GONZALEZ * Telephone Encounter - Agustina Diehl RN - 08/18/2023 11:50 AM EST Pt in need of refills of Anoro and Arnuity inhalers. Orders pended for your review and signature. Pharmacy is [facility]. Thank you! documented in this encounter Plan of Treatment Upcoming Encounters Date Type Department Care Team (Late st Contact Info) Description 08/21/2023 1:10 PM EST Office Visit Family Medicine [address] [place] [phone] Patrica Chavis [address] [place] [address] 08/27/2023 12:30 PM EST Home Visit [facility], [facility] [address] [facility] [place] [address] Sarah Vitale RN [address] [facility] [place] [address] 08/30/2023 11:15 AM EST Office Visit Hematology/Oncology [facility] [address] [facility] [place] [address] Martínez Lopes MD [address] [facility] [place] [address] 09/03/2023 12:30 PM EST Nutrition Services [facility], [facility] [address] [facility] [place] [address] Lovely Bravo, SHAKIRN [address] [facility] [place] [address] 09/17/2023 9:40 AM EST Office Visit Dermatology [address] [place] [address] Marycruz Almazan PA-C [address] [place] [address] [place] [address] 10/03/2023 10:30 AM EST Office Visit Sleep Disorders [facility]tr [facility] [address] [place] [phone] Sosa Freeman CRNP [address] [place] [address] 10/16/2023 11:30 AM EST Office Visit Gastroenterology, [facility] [address] [place] [address] Lizzette Silva CRNP [address] [place] [address] 12/10/2023 9:20 AM EDT Office Visit Family Medicine [address] [place] [phone] Ollie Gonzalez MD [address] [place] [address] [place] [address] 12/27/2023 11:00 AM EDT Office Visit Cardiology [address] [place] [address] Mi Neil PA-C [address] [place] [address] 03/18/2024 9:00 AM EDT Nurse Only Ancillary [address] [place] [address] [place], Nurse Annual Wellness [address] [place] [address] [place] [address] Scheduled Procedures Name Priority Associated Diagnoses Date/Ti [...] D LEVEL ONCE IN A LIFETIME-USE SMARTSET# [id number] Completed 06/29/2020, 03/16/2015 Pneumococcal Vaccine: 65+ Years [...] as of this encounter Visit Diagnoses Diagnosis Moderate obstructive and restrictive lung disease Chronic airway obstruction, not elsewhere classified COPD, group D, by GOLD 2017 classification (HCC) documented in this encounter Advance Directives Documents on File Type Date Recorded Patient Band Leader Expl anation POLST 10/15/2019 3:17 PM POLST POLST 03/05/2019 POLST FORM Advance Directives and Living Will 01/27/2013 LIVING WILL Advance Directives and Living Will 01/27/2013 LIVING WILL Power of Diamond Die Polisher 01/27/2013 POWER OF A TTORNEY Power of Diamond Die Polisher 01/27/2013 POWER OF A TTORNEY Healthcare Agents on File Name Relationship Healthcare Agent Relationship Communication Cydney Benito Other - (no specific identity) Second Alternate Health Care Agent Anyi More Adult Child Health Care Roberth r of Diamond Die Polisher Care Teams Disability Aide Relationship Specialty Start Date End Date Ollie Gonzalez MD [address] [place] [address] [place] [phone] PCP - General Family Medicine 06/09/21 documented as of this encounter
--- OUTSIDE RECORDS SUMMARY | 2023-10-29 06:27 | External Medical Summary | Summary of Care ---
Author Name Unknown Organization [facility] Address [address] [place] [address] Phone [phone] Care Team Providers Care Refrigerating Oiler Name Role Phone Rhys Humphrey MD Primary Care Provide r Reason for Visit * Reason Onset Date Comments [facility]: Maintenance 08/17/2023 Encounter Details Date Type Department Care Team (Late st Contact Info) Description 08/17/2023 9:30 AM EST Scheduled Telephone [facility], [facility] [address] [place] [address] Coordinator, [facility] [address] [place] [address] Allergies Active Allergy Reactions Criticality Noted Date [...] before bedtime. 50 Cap 0 01/18/2021 Active Srlqfbb-Hzzvhiseh-Ua nc 333-133-5 MG Oral Tablet Take 1 Tablet by mouth daily. 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),COPD, group D, by [...] Tablet (Lasix)Indications:C hronic diastolic congestive heart failure ([facility]) One tablet daily with an [...] mRNA, LNP-s, No Pre serve, 2-Dose Series ([employer]) 07/11/2021,11/14/2020,10/24/2020 Covid-19, Mrna, Lnp-s, Pf, B ivalent, 30 Mcg, IM, 12 yrs and above ([employer]) 07/21/2022 Pneumococcal Conjugate Vacc, 13 Valent (Prevnar) 03/16/2015 Pneumococcal Conjugate Vacci ne, 20-valent ([id number]) 07/21/2022 Pneumococcal Polysaccharide PPV23 (Pneumovax) 03/05/2019,07/18/2007 SEASONAL [...] ordered on 10/25/21 by PITER Davies at [facility]. 02/23 New CPAP machine ordered 03/22/23 another order placed for new CPAP by sleep medicine. NO sleep study in 2 yrs, needed a new sleep study 04/06 new cpap order placed through [employer] portal Patient was then out of town [...] follow up after bronchoscopy 08/13, admitted to [facility] with pneumonia 08/15 Pulmonary, Bronchoscopy, Moraxella, some mold, Unclear if patient ever had an updated sleep study that would again qualify her for CPAP Carrie Tucker RN, BSN [facility] Intake Triage Coordinator [phone] * Telephone Encounter - Isaac Parker PA-C - 08/17/2023 3:39 PM EST [facility] Remote [facility] Command Phone Encounter Thank you for your assistance in the care of this patient today. 82 year old year old female patient. Patient reports that she does not have a CPAP machine howeverit was ordered multiple times. Can we find out if she ever got the machine and if so where is it. She also has asleep study follow-up scheduled which would be to make sure that it is working and or if it needs adjusted. Thus I am not inclined [...] [facility] Telephonic Nurse Follow-Up Call [facility] Subprogram: Focused Care Management (3-9 [...] with assistance/walker at all times PC to [facility]. Spoke to medical records they are faxing hospital discharge records over to [facility] fax [phone] Fax received by francisco marquis who will [...] we update oxygen order Disposition: Routed to [facility] and/or [facility] Care Team for further advice Future Visits Scheduled: Future Appointments-next 60 days Date/Time Provider Specialty Dept Phone 08/18/2023 12:00 PM [facility], Nurse [facility] Maximiliano Wong at Home [phone] 08/21/2023 1:10 PM (Arrive by 12:55 PM) Patrica Chavis DO Family Medicine [phone] 08/30/2023 11:15 AM (Arrive by 11:00 AM) Martínez Lopes MD Hematology Oncology [phone] 09/03/2023 12:30 PM Lovely Bravo RDN [facility] [phone] 09/17/2023 9:40 AM (Arrive by 9:25 AM) Marycruz Almazan PA-C Dermatology [phone] 10/03/2023 10:30 AM (Arrive by 10:15 AM) Sosa Freeman CRNP Sleep Disorders [phone] 10/16/2023 11:30 AM (Arrive by 11:15 AM) Lizzette Silva CRNP Gastroenterology [phone] 12/10/2023 9:20 AM (Arrive by 9:05 AM) Rhys Humphrey MD Family Medicine [phone] 12/27/2023 11:00 AM (Arrive by 10:45 AM) Mi Neil PA-C Cardiology [phone] 03/18/2024 9:00 AM Nurse [facility] Ancillary [phone] Melissa Almaraz, RN documented in this encounter Plan of Treatment Upcoming Encounters Date Type Department Care Team (Late st Contact Info) Description 08/18/2023 12:00 PM EST Home Visit [facility], [facility] [address] [facility] [place] [address] [facility], Nurse [facility] [address] [facility] [place] [address] 08/21/2023 1:10 PM EST Office Visit Family Medicine [address] [place] [phone] Patrica Chavis [address] [place] [address] 08/30/2023 11:15 AM EST Office Visit [facility]ematology/On[facility] [place] [address] [place] [address] Martínez Lopes MD [address] [facility] [place] [address] 09/03/2023 12:30 PM EST Nutrition Services [facility], [facility] [address] [place] [address] Lovely Bravo, RDN [address] [place] [address] 09/17/2023 9:40 AM EST Office Visit Dermatology [address] [place] [address] Marycruz Almazan PA-C [address] [place] [address] [place] [address] 10/03/2023 10:30 AM EST Office Visit Sleep Disorders Ctr [facility] [address] [facility] [place] [phone] Sosa Freeman CRNP 132 [facility] [place] [address] 10/16/2023 11:30 AM EST Office Visit Gastroenterology, [facility] [address] [place] [address] Lizzette Silva CRNP 132 [facility] [place] [address] 12/10/2023 9:20 AM EDT Office Visit Family Medicine [address] [place] [phone] Rhys Humphrey MD [address] [place] [address] [place] [address] 12/27/2023 11:00 AM EDT Office Visit Cardiology [address] [place] [address] Mi Neil PA-C [address] [place] [address] 03/18/2024 9:00 AM EDT Nurse Only Ancillary [address] [place] [address] [place], Nurse Annual [address] [place] [address] Scheduled Procedures Name Priority Associated Diagnoses Date/Ti [...] D LEVEL ONCE IN A LIFETIME-USE SMARTSET# 17983 Completed 06/29/2020, 03/16/2015 Pneumococcal Vaccine: 65+ Years [...] on File Type Date Recorded Patient Supervisor Quality Control Expl anation POLST 10/15/2019 3:17 PM POLST POLST 03/05/2019 POLST FORM Advance Directives and Living Will 01/27/2013 LIVING WILL Advance Directives and Living Will 01/27/2013 LIVING WILL Power of Identity Management Consultant 01/27/2013 POWER OF A TTORNEY Power of Identity Management Consultant 01/27/2013 POWER OF A TTORNEY Healthcare Agents on File Name Relationship Healthcare Agent Relationship Communication Cydney Benito Other - (no specific identity) Second Alternate Health Care Agent Anyi More Adult Child Health Care Roberth r of Identity Management Consultant Care Teams Refrigerating Oiler Relationship Specialty Start Date End Date Rhys Humphrey MD [address] [place] [address] [place] [address] PCP - General Family Medicine 06/09/21 documented as of this encounter
--- OUTSIDE RECORDS SUMMARY | 2023-10-29 06:28 | External Medical Summary | Summary of Care ---
Author Name Unknown Organization [facility] Address [address] [place] [address] Phone [phone] Care Team Providers Care It Trainee Name Role Phone Rhys Humphrey MD Primary Care Provide r Reason for Visit * Reason Onset Date Comments [facility]: Acute 08/16/2023 Encounter Details Date Type Department Care Team (Late st Contact Info) Description 08/16/2023 Telephone [facility], [facility] [address] [place] [address] [facility], Nurse [facility] [address] [place] [address] [facility]: Acute Allergies Active Allergy Reactions Criticality Noted Date Comments Adhesive Tape Other (Please comment),Hives High 09/29/2008 Caused welts Dextromethorphan-Gu aifenesin Neuro complications (Please comment) Medium 12/23/2021 Feels lightheaded/"foggy" documented as of this encounter (statuses as of 08/16/2023) Medications Medication Sig Dispensed Refills Start Date [...] before bedtime. 50 Cap 0 01/18/2021 Active Zwlpemr-Pdeekdxdd-Yq nc 333-133-5 MG Oral Tablet Take 1 Tablet by mouth daily. 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),COPD, group D, [...] as of this encounter (statuses as of 08/16/2023) Active Problems Problem Noted Date Diagnosed Date [...] as of this encounter (statuses as of 08/16/2023) Resolved Problems Problem Noted Date Diagnosed Date [...] as of this encounter (statuses as of 08/16/2023) Immunizations Name Administration Dates Next Due COVID-19 mRNA, LNP-s, No Pre serve, 2-Dose Series ([employer]) 07/11/2021,11/14/2020,10/24/2020 Covid-19, Mrna, Lnp-s, Pf, B ivalent, 30 Mcg, IM, 12 yrs and above ([employer]) 07/21/2022 Pneumococcal Conjugate Vacc, 13 Valent (Prevnar) 03/16/2015 Pneumococcal Conjugate Vacci ne, 20-valent ([email or web address]) 07/21/2022 Pneumococcal Polysaccharide PPV23 (Pneumovax) 03/05/2019,07/18/2007 SEASONAL [...] Telephone Encounter - Isaac Parker PA-C - 08/16/2023 2:00 PM EST [facility] Remote [facility] Command Phone Encounter Thank you for your assistance in the care of this patient today. 82 year old year old female patient who presents today status post hospital discharge from [facility]. Concern that the patient had weakness this morning along with a low blood pressure 99/60. She also has a little dizziness this morning but had not eaten as of yet. Patient reports mold in her lungs. Unsure where that is coming from. Recommendations: We need to obtain records from [facility] so that we may determine exactly what medications she was discharged Patient was seen by Pulmonary Medicine yesterday-broth the she had completed showed a bacterial infection with Moraxella and that she should continue with antibiotics that she was placed on. A noted the also a mold was present and that the patient should decreased exposure if possible. I will leavetreatment of mold up the pulmonology however we need to try find the source of the mold. Most likely the patient's home. 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 Please see if we can obtain the records from [facility] This note was prepared with the help of fluency and if there is any mis-spelled words , sentences or something which doesn't represent the content of the subject that could be technical error and please refer to the author for clarification. * Telephone Encounter - Mar Tatum RN - 08/16/2023 9:37 AM EST Images from the original note were not included. [facility] deicer inspector pneumatic Acute Call Date: 08/16/2023 Time: 9:40 AM Name: Keihsa Linares : 1940 Caller: Keisha Relationship to : self HPI: Keisha Linares is a 82 year old female that [facility] and was told her Home nurse would be having a home visit today. Patient stated she does not have Home Health nurses just [facility] nurses. She thinks her [facility] nurse Rosangela did call her last night but she missed the call. TT to [facility] RNCM's. Rosangela and Sarah, neither one called patient. Patient stated she is SOB, not any worse from her baseline, oxygen is on at 3 liters. She is also weak and worried that her BP was low this morning 99/60. She is also a little dizzy this morning, but did not have breakfast yet. She is also worried because she was told she has "mold" in her lungs. Nursing Assessment: Patient's chief complaint for this call: Shortness of breath , discharged from [facility] yesterday Pain Denies pain Baseline Assessment Able to performing ADLs at baseline (walking, daily tasks, etc.): Yes Chief Complaint is related to a chronic condition: Unknown Patient prescribed oxygen? Yes, 3L/min Patient has been ordered DME equipment (assistive devices, respiratory equipment, etc.): Yes Describe DME devices: oxygen Patient is using DME device as directed: Yes Medication Reconciliation: (See medication list) Received flu shot this season: Yes Taking medication as ordered: Yes Medications ordered/taking to treat reason for call: No Heart failure symptoms: Unknown COPD exacerbation symptoms: Unknown Reinforcement Education: Continue medications Stay hydrated Treatment/Plan: (need to report) Level of call: Non-Acute Recommended treatment plan: Clinical advice given over the phone Await [facility] recommendations Mar Tatum RN Paper Machine Backtender [facility] documented in this encounter Plan of Treatment Upcoming Encounters Date Type Department Care Team (Late st Contact Info) Description 08/21/2023 1:10 PM EST Office Visit Family Medicine [address] [place] [phone] Pat[address] [place] [address] 08/30/2023 11:15 AM EST Office Visit [facility]ology/[facility] [address] [place] [address] Martínez Lopes MD [address] [place] [address] 09/03/2023 12:30 PM EST Nutrition Services [facility], [facility] [address] [facility] [place] [address] [place] Lovely Shilpa, RDN [address] [facility] [place] [address] 09/17/2023 9:40 AM EST Office Visit Dermatology [address] [place] [address] Marycruz Almazan PA-C [address] [place] [address] [place] [address] 10/03/2023 10:30 AM EST Office Visit Sleep Disorders [facility] [address] [place] [phone] Sosa Freeman CRNP [address] [place] [address] 10/16/2023 11:30 AM EST Office Visit Gastroenterology, [facility] [address] [place] [address] Lizzette Silva CRNP [address] [place] [address] 12/10/2023 9:20 AM EDT Office Visit Family Medicine [address] [place] [phone] Rhys Humphrey MD [address] [place] [address] [place] [address] 12/27/2023 11:00 AM EDT Office Visit Cardiology [address] [place] [address] Mi Neil PA-C [address] [place] [address] 03/18/2024 9:00 AM EDT Nurse Only Ancillary [address] [place] [address] [place], Nurse Annual [address] [place] [address] Scheduled Procedures Name Priority Associated Diagnoses Date/Ti [...] D LEVEL ONCE IN A LIFETIME-USE SMARTSET# 13407 Completed 06/29/2020, 03/16/2015 Pneumococcal Vaccine: 65+ Years [...] Documents on File Type Date Recorded Patient Jig Grinder Expl anation POLST 10/15/2019 3:17 PM POLST POLST 03/05/2019 POLST FORM Advance Directives and Living Will 01/27/2013 LIVING WILL Advance Directives and Living Will 01/27/2013 LIVING WILL Power of Websphere Portal Developer 01/27/2013 POWER OF A TTORNEY Power of Websphere Portal Developer 01/27/2013 POWER OF A TTORNEY Healthcare Agents on File Name Relationship Healthcare Agent Relationship Communication Cydney Benito Other - (no specific identity) Second Alternate Health Care Agent Anyi More Adult Child Health Care Roberth r of Websphere Portal Developer Care Teams It Trainee Relationship Specialty Start Date End Date Rhys Humphrey MD [address] [place] [address] [place] [id number] PCP - General Family Medicine 06/09/21 documented as of this encounter
--- OUTSIDE RECORDS SUMMARY | 2023-10-29 06:28 | External Medical Summary | Summary of Care ---
Author Name Unknown Organization [facility] Address [address] [place] [address] Phone [phone] Care Team Providers Care Radio Equipment Installer Name Role Phone Rhys Humphrey MD Primary Care Provide r Reason for Visit * Reason Onset Date Comments Test Results 08/15/2023 Encounter Details Date Type Department Care Team (Late st Contact Info) Description 08/15/2023 Telephone Pulmonary Medicine Marielena Davies [address] [place] [address] Surjit Fernandez MD [address] [place] [address] Test Results Allergies Active Allergy Reactions Criticality Noted Date Comments Adhesive Tape Other (Please comment),Hives High 09/29/2008 Caused welts Dextromethorphan-Gu aifenesin Neuro complications (Please comment) Medium 12/23/2021 Feels lightheaded/"foggy" documented as of this encounter (statuses as of 08/15/2023) Medications Medication Sig Dispensed Refills Start Date [...] before bedtime. 50 Cap 0 01/18/2021 Active Hsybdzz-Uwowmhrdl-Lh nc 333-133-5 MG Oral Tablet Take 1 Tablet by mouth daily. 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),COPD, group D, by GOLD 2017 classification ([facility]) Inhale by mouth 1 Puff [...] as of this encounter (statuses as of 08/15/2023) Active Problems Problem Noted Date Diagnosed Date [...] couch") Medication Regimen o Other: anoro, arnuity, sunni, chandler Self-Management plan o Prednisone 40mg [...] as of this encounter (statuses as of 08/15/2023) Resolved Problems Problem Noted Date Diagnosed Date [...] as of this encounter (statuses as of 08/15/2023) Immunizations Name Administration Dates Next Due COVID-19 mRNA, LNP-s, No Pre serve, 2-Dose Series ([employer]) 07/11/2021,11/14/2020,10/24/2020 Covid-19, Mrna, Lnp-s, Pf, B ivalent, 30 Mcg, IM, 12 yrs and above ([employer]) 07/21/2022 Pneumococcal Conjugate Vacc, 13 Valent (Prevnar) 03/16/2015 Pneumococcal Conjugate Vacci ne, 20-valent ([id number]) 07/21/2022 Pneumococcal Polysaccharide PPV23 (Pneumovax) 03/05/2019,07/18/2007 SEASONAL [...] encounter Miscellaneous Notes * Telephone Encounter - NixonNusrat arias LPN - 08/15/2023 4:12 PM EST See encounter from 08/10/23. * Telephone Encounter - Surjit Fernandez MD - 08/15/2023 3:58 PM EST Please let the patient know that bronch showed evidence of infection and that the antibiotics that she was given is supposed to take care of the infection The bacteria is moraxella Also some mold was noted, so patient should decrease exposure if available Find out how she is doing Thank you documented in this encounter Plan of Treatment Upcoming Encounters Date Type Department Care Team (Late st Contact Info) Description 08/21/2023 1:10 PM EST Office Visit Family Medicine [address] [place] [phone] [place] [address] 08/30/2023 11:15 AM EST Office Visit Hematology/Oncology [facility] [address] [facility] [place] [address] Martínez Lopes MD [address] [facility] [place] [address] 09/03/2023 12:30 PM EST Nutrition Services [facility], [facility] [address] [facility] [place] [address] Lovely Bravo, SHAKIRN [address] [facility] [place] [address] 09/17/2023 9:40 AM EST Office Visit Dermatology [address] [place] [address] Marycruz Almazan PA-C [address] [place] [address] [place] [address] 10/03/2023 10:30 AM EST Office Visit Sleep Disorders [facility]tr [facility] [address] [phone] Sosa Freeman CRNP [address] [place] [address] 10/16/2023 11:30 AM EST Office Visit Gastroenterology, [facility] [address] [place] [address] Lizzette Silva CRNP [address] [place] [address] 12/10/2023 9:20 AM EDT Office Visit Family Medicine [address] [place] [phone] Rhys Humphrey MD [address] [place] [address] [place] [address] 12/27/2023 11:00 AM EDT Office Visit Cardiology [address] [place] [address] Mi Neil, CECI [address] [place] [address] 03/18/2024 9:00 AM EDT Nurse Only Ancillary [address] [place] [address] [place], Nurse Annual Wellness [address] [place] [address] [place] [address] Scheduled Procedures Name Priority Associated Diagnoses Date/Ti [...] D LEVEL ONCE IN A LIFETIME-USE SMARTSET# [id number] Completed 06/29/2020, 03/16/2015 Pneumococcal Vaccine: 65+ Years [...] Documents on File Type Date Recorded Patient Radiology Clerk Expl anation POLST 10/15/2019 3:17 PM POLST POLST 03/05/2019 POLST FORM Advance Directives and Living Will 01/27/2013 LIVING WILL Advance Directives and Living Will 01/27/2013 LIVING WILL Power of Orthotics Prosthetics Technician 01/27/2013 POWER OF A TTORNEY Power of Orthotics Prosthetics Technician 01/27/2013 POWER OF A TTORNEY Healthcare Agents on File Name Relationship Healthcare Agent Relationship Communication Cydney Benito Other - (no specific identity) Second Alternate Health Care Agent Anyi More Adult Child Health Care Roberth r of Orthotics Prosthetics Technician Care Teams Radio Equipment Installer Relationship Specialty Start Date End Date Rhys Humphrey MD [address] [place] [address] [place] [address] PCP - General Family Medicine 06/09/21 documented as of this encounter
--- OUTSIDE RECORDS SUMMARY | 2023-10-29 06:28 | External Medical Summary | Summary of Care ---
Author Name Unknown Organization [facility] Address [address] [place] [address] Phone [phone] Care Team Providers Care Real Estate Internship Name Role Phone Rhys Humphrey MD Primary Care Provide r Reason for Visit * Reason Onset Date Comments [facility]: Maintenance 08/17/2023 Encounter Details Date Type Department Care Team (Late st Contact Info) Description 08/17/2023 9:30 AM EST Scheduled Telephone [facility], [facility] [address] [place] [address] Coordinator, [facility] [address] [place] [address] Allergies Active Allergy Reactions Criticality Noted Date [...] before bedtime. 50 Cap 0 01/18/2021 Active Xemlykh-Qisfxbwfp-Wt nc 333-133-5 MG Oral Tablet Take 1 Tablet by mouth daily. 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),COPD, group D, by GOLD [...] mRNA, LNP-s, No Pre serve, 2-Dose Series ([employer]) 07/11/2021,11/14/2020,10/24/2020 Covid-19, Mrna, Lnp-s, Pf, B ivalent, 30 Mcg, IM, 12 yrs and above ([employer]) 07/21/2022 Pneumococcal Conjugate Vacc, 13 Valent (Prevnar) 03/16/2015 Pneumococcal Conjugate Vacci ne, 20-valent ([id number]) 07/21/2022 Pneumococcal Polysaccharide PPV23 (Pneumovax) 03/05/2019,07/18/2007 SEASONAL [...] [facility] Telephonic Nurse Follow-Up Call [facility] Subprogram: Focused Care Management (3-9 months) [...] with assistance/walker at all times PC to [facility]. Spoke to medical records they are faxing hospital discharge records over to [facility] fax [phone] Fax received by francisco marquis who will scan in chart and forward to RNVALERIA and nicole Parker Sending to care teams Possible need [...] we update oxygen order Disposition: Routed to [facility] and/or [facility] Care Team for further advice Future Visits Scheduled: Future Appointments-next 60 days Date/Time Provider Specialty Dept Phone 08/18/2023 12:00 PM [facility], Nurse [facility] Maximiliano Wong at Home [phone] 08/21/2023 1:10 PM (Arrive by 12:55 PM) Patrica Chavis DO Family Medicine [phone] 08/30/2023 11:15 AM (Arrive by 11:00 AM) Martínez Lopes MD Hematology Oncology [phone] 09/03/2023 12:30 PM Lovely Bravo RDN [facility] [phone] 09/17/2023 9:40 AM (Arrive by 9:25 AM) Marycruz Almazan PA-C Dermatology [phone] 10/03/2023 10:30 AM (Arrive by 10:15 AM) Sosa Freeman CRNP Sleep Disorders [phone] 10/16/2023 11:30 AM (Arrive by 11:15 AM) Lizzette Silva CRNP Gastroenterology [phone] 12/10/2023 9:20 AM (Arrive by 9:05 AM) Rhys Humphrey MD Family Medicine [phone] 12/27/2023 11:00 AM (Arrive by 10:45 AM) Mi Neil PA-C Cardiology [phone] 03/18/2024 9:00 AM [place] Nurse Annual Well[facility] Ancillary [phone] Melissa Almaraz RN documented in this encounter Plan of Treatment Upcoming Encounters Date Type Department Care Team (Late st Contact Info) Description 08/18/2023 12:00 PM EST Home Visit [facility], [facility] [address] [facility] [place] [address] [facility], Nurse [facility] [address] [facility] [place] [address] 08/21/2023 1:10 PM EST Office Visit Family Medicine [address] [place] [phone] [place] [address] 08/30/2023 11:15 AM EST Office Visit Hematology/Oncology [facility] [address] [facility] [place] [address] Martínez Lopes MD [address] [facility] [place] [address] 09/03/2023 12:30 PM EST Nutrition Services [facility], [facility] [address] [facility] [place] [address] Lovely Bravo RDN [address] [facility] [place] [address] 09/17/2023 9:40 AM EST Office Visit Dermatology [address] [place] [address] Marycruz Almazan PA-C [address] [place] [address] [place] [address] 10/03/2023 10:30 AM EST Office Visit Sleep Disorders Ctr [facility] [address] [facility] [place] [phone] Sosa Freeman CRNP [address] [place] [address] 10/16/2023 11:30 AM EST Office Visit Gastroenterology, [facility] [address] [place] [address] Lizzette Silva CRNP [address] [place] [address] 12/10/2023 9:20 AM EDT Office Visit Family Medicine [address] [place] [phone] Rhys Humphrey MD [address] [place] [address] [place] [address] 12/27/2023 11:00 AM EDT Office Visit Cardiology [address] [place] [address] Mi Neil PA-C [address] [place] [address] 03/18/2024 9:00 AM EDT Nurse Only Ancillary [address] [place] [address] [place], Nurse Annual [facility]ness [address] [place] [address] [place] [address] Scheduled Procedures Name Priority Associated Diagnoses Date/Ti [...] D LEVEL ONCE IN A LIFETIME-USE SMARTSET# 56749 Completed 06/29/2020, 03/16/2015 Pneumococcal Vaccine: 65+ Years [...] on File Type Date Recorded Patient Technical Instructor Course Developer Expl anation POLST 10/15/2019 3:17 PM POLST POLST 03/05/2019 POLST FORM Advance Directives and Living Will 01/27/2013 LIVING WILL Advance Directives and Living Will 01/27/2013 LIVING WILL Power of Coin Collector 01/27/2013 POWER OF A TTORNEY Power of Coin Collector 01/27/2013 POWER OF A TTORNEY Healthcare Agents on File Name Relationship Healthcare Agent Relationship Communication Cydney Benito Other - (no specific identity) Second Alternate Health Care Agent Anyi More Adult Child Health Care Roberth cooper of Coin Collector Care Teams Real Estate Internship Relationship Specialty Start Date End Date Rhys Humphrey MD [address] [place] [address] [place] [address] PCP - General Family Medicine 06/09/21 documented as of this encounter
--- OUTSIDE RECORDS SUMMARY | 2023-10-29 06:28 | External Medical Summary | Summary of Care ---
Author Name Unknown Organization [facility] Address [address] [place] [address] Phone [phone] Care Team Providers Care Coding Team Lead Name Role Phone Rhys Humphrey MD Primary Care Provide r Reason for Visit * Reason Onset Date Comments [facility]: Acute 08/16/2023 Encounter Details Date Type Department Care Team (Late st Contact Info) Description 08/16/2023 Telephone [facility], [facility] [address] [place] [address] [facility], Nurse [facility] [address] [place] [address] [facility]: Acute Allergies [...] before bedtime. 50 Cap 0 01/18/2021 Active Udynpeb-Emlyrkxxf-Eq nc 333-133-5 MG Oral Tablet Take 1 Tablet by mouth daily. 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),COPD, group D, by GOLD 2017 classification ([facility]) Inhale by mouth 1 Puff in [...] Tablet (Lasix)Indications:C hronic diastolic congestive heart failure ([facility]) One tablet daily with an extra [...] couch") Medication Regimen o Other: anoro, ana luias, sunni, chandler Self-Management plan o Prednisone 40mg [...] mRNA, LNP-s, No Pre serve, 2-Dose Series ([employer]) 07/11/2021,11/14/2020,10/24/2020 Covid-19, Mrna, Lnp-s, Pf, B ivalent, 30 Mcg, IM, 12 yrs and above ([employer]) 07/21/2022 Pneumococcal Conjugate Vacc, 13 Valent (Prevnar) 03/16/2015 Pneumococcal Conjugate Vacci ne, 20-valent ([id number]) 07/21/2022 Pneumococcal Polysaccharide PPV23 (Pneumovax) 03/05/2019,07/18/2007 SEASONAL [...] Telephone Encounter - Camila Thakur RN - 08/17/2023 7:45 AM EST Received in basket message from Maria Eugenia Parker PA-C. Scheduled FCC for today. Camila BAUMAN, RN [facility] Intake Triage Coordinator [phone] * Telephone Encounter - Isaac Parker PA-C - 08/16/2023 2:00 PM EST [facility] Remote Medical Command Phone Encounter Thank you for your assistance in the care of this patient today. 82 year old year old female patient who presents today status post hospital discharge from [facility]. Concern that the patient had weakness this morning along with a low blood pressure 99/60. She also has a little dizziness this morning but had not eaten as of yet. Patient reports mold in her lungs. Unsure where that is coming from. Recommendations: Follow-up tomorrow to check the patient's blood pressure and how she is feeling. We need to obtain records from [facility] so that we may determine exactly what medications she was discharged Patient was seen by Pulmonary Medicine yesterday-bronch the she had completed showed a bacterial infection with Moraxella and that she should continue with antibiotics that she was placed on. A notedthe also a mold was present and that the patient should decreased exposure if possible. I will leave treatment of mold up the pulmonology however we need to try find the source of the mold. Most likely the patient's home. 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 This note was prepared with the help of fluency and if there is any mis-spelled words , sentences or something which doesn't represent the content of the subject that could be technical error and please refer to the author for clarification. * Telephone Encounter - Mar Tatum RN - 08/16/2023 9:37 AM EST Images from the original note were not included. [facility] bone cooking operator Acute Call Date: 08/16/2023 Time: 9:40 AM Name: Keisha Linares : 1940 Caller: Keisha Relationship to : self HPI: Keisha Linares is a 82 year old female that is calling [facility] to report shewas discharged yesterday from [facility] and was told her Home nurse would be having a home visit today. Patient stated she does not have Home Health nurses just [facility] nurses. She thinks her [facility] nurse Rosangela did call her last night but she missed the call. TT to [facility] RNCM's. Rosangela and Sarah, neither one called [...] call: Shortness of breath , discharged from [facility] yesterday Pain Denies pain Baseline Assessment Able [...] Clinical advice given over the phone Await [facility] [place] Mar Tatum senior svpLithographic Proofer [facility] documented in this encounter Plan of Treatment Upcoming Encounters Date Type Department Care Team (Late st Contact Info) Description 08/18/2023 12:00 PM EST Home Visit [facility], [address] [place] [address] [place], Nurse [address] [place] [address] 08/21/2023 1:10 PM EST Office Visit Family Medicine [address] [place] [phone] Pat[address] [place] [address] 08/30/2023 11:15 AM EST Office Visit Hematology/Oncology [facility] [address] [place] [address] Martínez Lopes MD [address] [place] [address] 09/03/2023 12:30 PM EST Nutrition Services [facility], [facility] [address] [facility] [place] [address] Lovely Bravo, ANIBAL [address] [facility] [place] [address] 09/17/2023 9:40 AM EST Office Visit Dermatology [address] [place] [address] Marycruz Almazan PA-C [address] [place] [address] [place] [address] 10/03/2023 10:30 AM EST Office Visit Sleep Disorders Ctr [facility] [address] [place] [phone] Sosa Freeman CRNP [address] [place] [address] 10/16/2023 11:30 AM EST Office Visit Gastroenterology, [facility] [address] [place] [address] Lizzette Silva CRNP [address] [place] [address] 12/10/2023 9:20 AM EDT Office Visit Family Medicine [address] [place] [phone] Rhys Humphrey MD [address] [place] [address] [place] [address] 12/27/2023 11:00 AM EDT Office Visit Cardiology [address] [place] [address] Mi Neil, CECI [address] [place] [address] 03/18/2024 9:00 AM EDT Nurse Only Ancillary [address] [place] [address] [place], Nurse Annual Wellness [address] [place] [address] [place] [address] Scheduled Procedures Name Priority Associated Diagnoses Date/Ti [...] D LEVEL ONCE IN A LIFETIME-USE SMARTSET# 26569 Completed 06/29/2020, 03/16/2015 Pneumococcal Vaccine: 65+ Years [...] Documents on File Type Date Recorded Patient Pharmacist Intern Expl anation POLST 10/15/2019 3:17 PM POLST POLST 03/05/2019 POLST FORM Advance Directives and Living Will 01/27/2013 LIVING WILL Advance Directives and Living Will 01/27/2013 LIVING WILL Power of Senior Svp 01/27/2013 POWER OF A TTORNEY Power of Senior Svp 01/27/2013 POWER OF A TTORNEY Healthcare Agents on File Name Relationship Healthcare Agent Relationship Communication Cydney Benito Other - (no specific identity) Second Alternate Health Care Agent Anyi More Adult Child Health Care Roberth cooper of Senior Svp Care Teams Coding Team Lead Relationship Specialty Start Date End Date Rhys Humphrey MD [address] [place] [address] [place] [address] PCP - General Family Medicine 06/09/21 documented as of this encounter
--- OUTSIDE RECORDS SUMMARY | 2023-10-29 06:28 | External Medical Summary | Summary of Care ---
Author Name Unknown Organization [facility] Address [address] [place] [address] Phone [phone] Care Team Providers Care Sales Store Checker Name Role Phone Rhys Humphrey MD Primary Care Provide r Reason for Visit * Reason Onset Date Comments [facility]: Acute 08/16/2023 Encounter Details Date Type Department Care Team (Late st Contact Info) Description 08/16/2023 Telephone [facility], [facility] [address] [place] [address] [facility], Nurse [facility] [address] [place] [address] [facility]: Acute Allergies [...] before bedtime. 50 Cap 0 01/18/2021 Active Mznzlcr-Ijhqhqset-Ij nc 333-133-5 MG Oral Tablet Take 1 Tablet by mouth daily. 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),COPD, group D, by GOLD [...] mRNA, LNP-s, No Pre serve, 2-Dose Series ([employer]) 07/11/2021,11/14/2020,10/24/2020 Covid-19, Mrna, Lnp-s, Pf, B ivalent, 30 Mcg, IM, 12 yrs and above ([employer]) 07/21/2022 Pneumococcal Conjugate Vacc, 13 Valent (Prevnar) 03/16/2015 Pneumococcal Conjugate Vacci ne, 20-valent ([id number]) 07/21/2022 Pneumococcal Polysaccharide PPV23 (Pneumovax) 03/05/2019,07/18/2007 SEASONAL [...] encounter Miscellaneous Notes * Telephone Encounter - Strubeck, Mar, RN - 08/16/2023 9:37 AM EST Images from the original note were not included. [facility] java architect Acute Call Date: 08/16/2023 Time: 9:40 AM Name: Keisha Linares : 1940 Caller: Keisha Relationship to : self HPI: Keisha Linares is a 82 year old female that is calling [facility] to report shewas discharged yesterday from [facility] and was told her Home nurse would be having a home visit today. Patient stated she does not have Home Health nurses just [facility] nurses. She thinks her [facility] nurse Rosangela did call her last night but she missed the call. TT to [facility] RNCM's. Rosangela and Sarah, neither one [...] call: Shortness of breath , discharged from [facility] yesterday Pain Denies pain Baseline Assessment Able [...] Clinical advice given over the phone Await [facility] recommendations Mar Tatum RN Ccu Nurse [facility] documented in this encounter Plan of Treatment Upcoming Encounters Date Type Department Care Team (Late st Contact Info) Description 08/21/2023 1:10 PM EST Office Visit Family Medicine [address] [place] [phone] [place] [address] 08/30/2023 11:15 AM EST Office Visit Hematology/Oncology [facility] [address] [facility] [place] [address] Martínez Lopes MD [address] [place] [address] 09/03/2023 12:30 PM EST Nutrition Services [facility], [facility] [address] [facility] [place] [address] Lovely Bravo, RDN [address] [facility] [place] [address] 09/17/2023 9:40 AM EST Office Visit Dermatology [address] [place] [address] Marycruz Almazan PA-C [address] [place] [address] [place] [address] 10/03/2023 10:30 AM EST Office Visit Sleep Disorders Ctr [facility] [address] [place] [phone] Sosa Freeman CRNP [address] [place] [address] 10/16/2023 11:30 AM EST Office Visit Gastroenterology, [facility] [address] [place] [address] Lizzette Silva CRNP [address] [place] [address] 12/10/2023 9:20 AM EDT Office Visit Family Medicine [address] [place] [phone] Rhys Humphrey MD [address] [place] [address] [place] [address] 12/27/2023 11:00 AM EDT Office Visit Cardiology [address] [place] [address] Mi Neil, CECI [address] [place] [address] 03/18/2024 9:00 AM EDT Nurse Only Ancillary [address] [place] [address] [place], Nurse Annual Wellness [address] [place] [address] [place] [address] Scheduled Procedures Name Priority Associated Diagnoses Date/Ti [...] D LEVEL ONCE IN A LIFETIME-USE SMARTSET# 57802 Completed 06/29/2020, 03/16/2015 Pneumococcal Vaccine: 65+ Years [...] Documents on File Type Date Recorded Patient Drag Down Expl anation POLST 10/15/2019 3:17 PM POLST POLST 03/05/2019 POLST FORM Advance Directives and Living Will 01/27/2013 LIVING WILL Advance Directives and Living Will 01/27/2013 LIVING WILL Power of Cream Beater 01/27/2013 POWER OF A TTORNEY Power of Cream Beater 01/27/2013 POWER OF A TTORNEY Healthcare Agents on File Name Relationship Healthcare Agent Relationship Communication Cydney Benito Other - (no specific identity) Second Alternate Health Care Agent Anyi More Adult Child Health Care Roberth r of Cream Beater Care Teams Sales Store Checker Relationship Specialty Start Date End Date Rhys Humphrey MD [address] [place] [address] [place] [phone] PCP - General Family Medicine 06/09/21 documented as of this encounter
--- OUTSIDE RECORDS SUMMARY | 2023-10-29 06:28 | External Medical Summary | Summary of Care ---
Author Name Unknown Organization [facility] Address [address] [place] [address] Phone [phone] Care Team Providers Care Bug Trimmer Name Role Phone Rhys Humphrey MD Primary Care Provide r Reason for Visit * Reason Onset Date Comments [facility]: Maintenance 08/17/2023 Encounter Details Date Type Department Care Team (Late st Contact Info) Description 08/17/2023 9:30 AM EST Scheduled Telephone [facility], [facility] [address] [place] [address] Coordinator, [facility] [place] [address] [place] [address] Allergies Active Allergy Reactions Criticality Noted Date [...] before bedtime. 50 Cap 0 01/18/2021 Active Ndiycur-Ytyplklay-Qi nc 333-133-5 MG Oral Tablet Take 1 Tablet by mouth daily. 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),COPD, group D, by [...] mRNA, LNP-s, No Pre serve, 2-Dose Series (Tauntr) 07/11/2021,11/14/2020,10/24/2020 Covid-19, Mrna, Lnp-s, Pf, B ivalent, 30 Mcg, IM, 12 yrs and above (Tauntr) 07/21/2022 Pneumococcal Conjugate Vacc, 13 Valent (Prevnar) 03/16/2015 Pneumococcal Conjugate Vacci ne, 20-valent ([id number]) 07/21/2022 Pneumococcal Polysaccharide PPV23 (Pneumovax) 03/05/2019,07/18/2007 SEASONAL [...] Parker PA-C - 08/17/2023 3:39 PM EST [facility] Remote Medical Command Phone Encounter [...] Almaraz RN - 08/17/2023 11:53 AM EST [facility] Telephonic Nurse Follow-Up Call [facility] Subprogram: Focused Care Management (3-9 [...] with assistance/walker at all times PC to [facility]. Spoke to medical records they are faxing hospital discharge records over to [facility] fax [phone] Fax received by francisco marquis who will [...] update oxygen order Disposition: Routed to [facility] and/or [facility] Care Team for further advice Future Visits Scheduled: Future Appointments-next 60 days Date/Time Provider Specialty Dept Phone 08/18/2023 12:00 PM [facility], Nurse [facility] [phone] 08/21/2023 1:10 PM (Arrive by 12:55 PM) Patrica Chavis DO Family Medicine [phone] 08/30/2023 11:15 AM (Arrive by 11:00 AM) Martínez Lopes MD Hematology Oncology [phone] 09/03/2023 12:30 PM Lovely Bravo RDN [facility] [phone] 09/17/2023 9:40 AM (Arrive by 9:25 AM) Marycruz Almazan PA-C Dermatology [phone] 10/03/2023 10:30 AM (Arrive by 10:15 AM) Sosa Freeman CRNP Sleep Disorders [phone] 10/16/2023 11:30 AM (Arrive by 11:15 AM) Lizzette Silva CRNP Gastroenterology [phone] 12/10/2023 9:20 AM (Arrive by 9:05 AM) Rhys Humphrey MD Family Medicine [phone] 12/27/2023 11:00 AM (Arrive by 10:45 AM) Mi Neil PA-C Cardiology [phone] 03/18/2024 9:00 AM Nurse [facility] Ancillary [phone] Melissa Almaraz, RAYNA documented in this encounter Plan of Treatment Upcoming Encounters Date Type Department Care Team (Late st Contact Info) Description 08/18/2023 12:00 PM EST Home Visit [facility], [facility] [address] [facility] [place] [address] [facility], Nurse [facility] [address] [facility] [place] [address] 08/21/2023 1:10 PM EST Office Visit Family Medicine [address] [place] [phone] Patrica Chavis[address] [place] [address] 08/30/2023 11:15 AM EST Office Visit Hematology/Oncology [facility] [place] [address] [facility] [place] [address] Martínez Lopes MD [address] [place] [address] 09/03/2023 12:30 PM EST Nutrition Services [facility], [facility] [address] [facility] [place] [address] Lovely Bravo, RDN [address] [facility] [place] [address] 09/17/2023 9:40 AM EST Office Visit Dermatology [address] [place] [address] Marycruz Almazan PA-C [address] [place] [address] [place] [address] 10/03/2023 10:30 AM EST Office Visit Sleep Disorders Ctr [facility] [address] [place] [phone] Sosa Freeman CRNP [address] [place] [address] 10/16/2023 11:30 AM EST Office Visit Gastroenterology, [facility] [address] [place] [address] Lizzette Silva CRNP [address] [place] [address] 12/10/2023 9:20 AM EDT Office Visit Family Medicine [address] [place] [phone] Rhys Humphrey MD [address] [place] [address] [place] [address] 12/27/2023 11:00 AM EDT Office Visit Cardiology [address] [place] [address] Mi Neil PA-C [address] [place] [address] 03/18/2024 9:00 AM EDT Nurse Only Ancillary [address] [place] [address] [place], Nurse [facility] [address] [place] [address] [place] [address] Scheduled Procedures Name Priority Associated Diagnoses Date/Ti [...] D LEVEL ONCE IN A LIFETIME-USE SMARTSET# 84443 Completed 06/29/2020, 03/16/2015 Pneumococcal Vaccine: 65+ Years [...] Documents on File Type Date Recorded Patient Transitions Rn Care Coordinator Expl anation POLST 10/15/2019 3:17 PM POLST POLST 03/05/2019 POLST FORM Advance Directives and Living Will 01/27/2013 LIVING WILL Advance Directives and Living Will 01/27/2013 LIVING WILL Power of Brand Designer 01/27/2013 POWER OF A TTORNEY Power of Brand Designer 01/27/2013 POWER OF A TTORNEY Healthcare Agents on File Name Relationship Healthcare Agent Relationship Communication Cydney Benito Other - (no specific identity) Second Alternate Health Care Agent Anyi More Adult Child Health Care Roberth cooper of Brand Designer Care Teams Bug Trimmer Relationship Specialty Start Date End Date Rhys Humphrey MD [address] [place] [address] [place] [phone] PCP - General Family Medicine 06/09/21 documented as of this encounter
--- OUTSIDE RECORDS SUMMARY | 2023-10-29 06:28 | External Medical Summary | Summary of Care ---
Author Name Unknown Organization [facility] Address [address] [place] [address] Phone [phone] Care Team Providers Care Game Operator Name Role Phone Rhys Humphrey MD Primary Care Provide r Reason for Visit * Reason Onset Date Comments [facility]: Acute 08/16/2023 Encounter Details Date Type Department Care Team (Late st Contact Info) Description 08/16/2023 Telephone [facility], [facility] [address] [place] [address] [facility], Nurse [facility] [address] [place] [address] [facility]: Acute Allergies [...] before bedtime. 50 Cap 0 01/18/2021 Active Cqumwww-Rsxfuxist-Xg nc 333-133-5 MG Oral Tablet Take 1 Tablet by mouth daily. 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 and was told her Home nurse would be having a home visit today. Patient stated she does not have Home Health nurses just [facility] nurses. She thinks her [facility] nurse Rosangela did call her last night but she missed the call. TT to [facility] RNCM's. Rosangela and Sarah, neither one [...] call: Shortness of breath , discharged from [facility] yesterday Pain Denies pain Baseline Assessment Able [...] Clinical advice given over the phone Await [facility] recommendations Mar Strubeck kitchen and bath designerLiteracy Education Professor [facility] documented in this encounter Plan of Treatment Upcoming Encounters Date Type Department Care Team (Late st Contact Info) Description 08/21/2023 1:10 PM EST Office Visit Family Medicine [address] [place] [phone] [place] [address] 08/30/2023 11:15 AM EST Office Visit Hematology/Oncology [facility] [place] [address] [facility] [place] [address] Martínez Lopes MD [address] [facility] [place] [address] 09/03/2023 12:30 PM EST Nutrition Services [facility], [facility] [address] [facility] [place] [address] Lovely Bravo, RDN [address] [facility] [place] [address] 09/17/2023 9:40 AM EST Office Visit Dermatology [address] [place] [address] Marycruz Almazan PA-C [address] [place] [address] [place] [address] 10/03/2023 10:30 AM EST [facility] [address] [place] [phone] Sosa Freeman CRNP [address] [place] [address] 10/16/2023 11:30 AM EST [facility] [address] [facility] [place] [address] Lizzette Silva CRNP [address] [place] [address] 12/10/2023 9:20 AM EDT Office Visit Family Medicine [address] [place] [phone] Rhys Humphrey MD [address] [place] [address] [place] [address] 12/27/2023 11:00 AM EDT Office Visit Cardiology [address] [place] [address] Mi Neil PA-C [address] [place] [address] 03/18/2024 9:00 AM EDT Nurse Only Ancillary [address] [place] [address] [place], Nurse Annual Wellness [address] [place] [address] [place] [address] Scheduled Procedures Name Priority Associated Diagnoses Date/Ti [...] Documents on File Type Date Recorded Patient Carton Stamper Expl anation POLST 10/15/2019 3:17 PM POLST POLST 03/05/2019 POLST FORM Advance Directives and Living Will 01/27/2013 LIVING WILL Advance Directives and Living Will 01/27/2013 LIVING WILL Power of Boarding Kennel Or Cattery Operator 01/27/2013 POWER OF A TTORNEY Power of Boarding Kennel Or Cattery Operator 01/27/2013 POWER OF A TTORNEY Healthcare Agents on File Name Relationship Healthcare Agent Relationship Communication Cydney Benito Other - (no specific identity) Second Alternate Health Care Agent Anyi More Adult Child Health Care Roberth r of Boarding Kennel Or Cattery Operator Care Teams Game Operator Relationship Specialty Start Date End Date Rhys Humphrey MD [address] [place] [address] [place] [address] PCP - General Family Medicine 06/09/21 documented as of this encounter
--- OUTSIDE RECORDS SUMMARY | 2023-10-29 06:28 | External Medical Summary | Summary of Care ---
Author Name Unknown Organization [facility] Address [address] [place] [address] Phone [phone] Care Team Providers Care Paramedic Name Role Phone Rhys Humphrey MD Primary Care Provide r Reason for Visit * Reason Onset Date Comments [facility]: Acute 08/16/2023 Encounter Details Date Type Department Care Team (Late st Contact Info) Description 08/16/2023 Telephone [facility], [facility] [address] [place] [address] [facility], Nurse [facility] [address] [place] [address] [facility]: Acute Allergies [...] before bedtime. 50 Cap 0 01/18/2021 Active Ggrzarg-Lcadnnvwp-Bd nc 333-133-5 MG Oral Tablet Take 1 Tablet by mouth daily. 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 Camila BAUMAN, RN [facility] Intake Triage Coordinator [phone] * Telephone Encounter - Isaac Parker PA-C - 08/16/2023 2:00 PM EST [facility] Remote Medical Command Phone Encounter Thank you for your assistance in the care of this patient today. 82 year old year old female patient who presents today status post hospital discharge from [facility]. Concern that the patient had weakness this morning along with a low blood pressure 99/60. She also has a little dizziness this morning but had not eaten as of yet. Patient reports mold in her lungs. Unsure where that is coming from. Recommendations: Follow-up tomorrow to check the patient's blood pressure and how she is feeling. We need to obtain records from [facility] so that we may determine exactly what [...] note were not included. 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 Patient stated she does not have Home Health nurses just [facility] nurses. She thinks her [facility] nurse Rosangela did call her last night but she missed the call. TT to [facility] RNCM's. Rosangela and Sarah, neither one [...] breath , discharged from [facility] yesterday Pain Denies pain Baseline Assessment Able [...] [facility] recommendations Mar Tatum head of marketingManager Nursing Home [facility] documented in this encounter Plan of Treatment Upcoming Encounters Date Type Department Care Team (Late st Contact Info) Description 08/17/2023 9:30 AM EST Scheduled Telephone [facility], [facility] [address] [facility] [place] [address] Coordinator, [facility] 132 [facility] [place] [address] 08/21/2023 1:10 PM EST Office Visit Family Medicine [address] [place] [phone] [address] [place] [address] 08/30/2023 11:15 AM EST Office Visit Hematology/Oncology [facility] [address] [place] [address] Martínez Lopes MD [address] [place] [address] 09/03/2023 12:30 PM EST Nutrition Services [facility], [facility] [address] [facility] [place] [address] Lovely Bravo RDN [address] [facility] [place] [address] 09/17/2023 9:40 AM EST Office Visit Dermatology [address] [place] [address] Marycruz Almazan PA-C [address] [place] [address] [place] [address] 10/03/2023 10:30 AM EST Office Visit Sleep Disorders Ctr [facility]ella [facility] [address] [place] [phone] Sosa Freeman CRNP [address] [place] [address] 10/16/2023 11:30 AM EST Office Visit Gastroenterology, [facility] [address] [place] [address] Lizzette Silva CRNP [address] [place] [address] 12/10/2023 9:20 AM EDT Office Visit Family Medicine [address] [place] [phone] Rhys Humphrey MD [address] [place] [address] [place] [address] 12/27/2023 11:00 AM EDT Office Visit Cardiology [address] [place] [address] Mi Neil, CECI [address] [place] [address] 03/18/2024 9:00 AM EDT Nurse Only Ancillary [address] [place] [address] [place], Nurse Annual [facility]ness [address] [place] [address] [place] [address] Scheduled Procedures Name Priority Associated Diagnoses Date/Ti [...] D LEVEL ONCE IN A LIFETIME-USE SMARTSET# [id number] Completed 06/29/2020, 03/16/2015 Pneumococcal Vaccine: 65+ Years [...] Documents on File Type Date Recorded Patient Group Cio Expl anation POLST 10/15/2019 3:17 PM POLST POLST 03/05/2019 POLST FORM Advance Directives and Living Will 01/27/2013 LIVING WILL Advance Directives and Living Will 01/27/2013 LIVING WILL Power of Plastics Factory Worker 01/27/2013 POWER OF A TTORNEY Power of Plastics Factory Worker 01/27/2013 POWER OF A TTORNEY Healthcare Agents on File Name Relationship Healthcare Agent Relationship Communication Cydney Benito Other - (no specific identity) Second Alternate Health Care Agent Anyi More Adult Child Health Care Roberth cooper of Plastics Factory Worker Care Teams Paramedic Relationship Specialty Start Date End Date Rhys Humphrey MD [address] [place] [address] [place] [address] PCP - General Family Medicine 06/09/21 documented as of this encounter
--- OUTSIDE RECORDS SUMMARY | 2023-10-29 06:29 | External Medical Summary | Summary of Care ---
Author Name Unknown Organization [facility] Address [address] [place] [address] Phone [phone] Care Team Providers Care Platform Operations Director Name Role Phone Rhys Humphrey MD Primary Care Provide r Reason for Visit * Reason Onset Date Comments Films 08/13/2023 Encounter Details Date Type Department Care Team (Late st Contact Info) Description 08/13/2023 Telephone Radiology [facility] [address] [place] [address] Surjit Fernandez MD [address], [place] [id number] Films Allergies Active Allergy Reactions Criticality Noted Date Comments Adhesive Tape Other (Please comment),Hives High 09/29/2008 Caused welts Dextromethorphan-Gu aifenesin Neuro complications (Please comment) Medium 12/23/2021 Feels lightheaded/"foggy" documented as of this encounter (statuses as of 08/13/2023) Medications Medication Sig Dispensed Refills Start Date [...] Active Nebulizers (NEBULIZER COMPRESSOR) MISCIndications:COPD , moderate ([facility]) Inhale via nebulizer. Use as directed. 1 Each 1 11/17/2019 Active Iron 325 (65 Fe) MG Oral Tablet Take 1 Tablet by mouth daily. 0 Active Cranberry 500 MG Oral Capsule Take 1 Capsule by mouth in the morning and 1 Capsule before bedtime. 50 Cap 0 01/18/2021 Active Pvwmgmj-Hqhnnrbgd-Id nc 333-133-5 MG Oral Tablet Take 1 Tablet by mouth daily. 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),COPD, group D, by GOLD 2017 classification ([facility]) Inhale by mouth 1 Puff [...] Tablet (Lasix)Indications:C hronic diastolic congestive heart failure ([facility]) One tablet daily with an [...] as of this encounter (statuses as of 08/13/2023) Active Problems Problem Noted Date Diagnosed Date [...] as of this encounter (statuses as of 08/13/2023) Resolved Problems Problem Noted Date Diagnosed Date [...] as of this encounter (statuses as of 08/13/2023) Immunizations Name Administration Dates Next Due COVID-19 mRNA, LNP-s, No Pre serve, 2-Dose Series ([employer]) 07/11/2021,11/14/2020,10/24/2020 Covid-19, Mrna, Lnp-s, Pf, B ivalent, 30 Mcg, IM, 12 yrs and above ([employer]) 07/21/2022 Pneumococcal Conjugate Vacc, 13 Valent (Prevnar) 03/16/2015 Pneumococcal Conjugate Vacci ne, 20-valent ([id number]) 07/21/2022 Pneumococcal Polysaccharide PPV23 (Pneumovax) 03/05/2019,07/18/2007 SEASONAL [...] encounter Miscellaneous Notes * Telephone Encounter - Liana Dobbs OSA - 08/13/2023 8:57 AM EST [facility] Emergency department requesting all chest images 04/16/23 through 08/10/23 be pushed through PACS. [place] Authorization to Release on file. Images pushed to [facility] PACS. Report(s) faxed to [phone]. Successful fax confirmation received. documented in this encounter Plan of Treatment Upcoming Encounters Date Type Department Care Team (Late st Contact Info) Description 08/15/2023 10:30 AM EST Scheduled Telephone [facility], [facility] [address] [facility] [place] [address] [facility] [address] [facility] [place] [address] 08/30/2023 11:15 AM EST Office Visit Hematology/Oncology [facility] [place] [address] [facility] [place] [address] Martínez Lopes MD [address] [place] [address] 09/17/2023 9:40 AM EST Office Visit Dermatology [address] [place] [address] Marycruz Almazan PA-C [address] [place] [address] [place] [address] 10/03/2023 10:30 AM EST Office Visit Sleep Disorders Ctr Mariella Kang, [place] [address] [facility] [place] [phone] Sosa Freeman CRNP [address] [place] [address] 10/16/2023 11:30 AM EST Office [facility] [place] [address] [facility] [place] [address] Lizzette Silva CRNP [address] [place] [address] 12/10/2023 9:20 AM EDT Office Visit Family Medicine [address] [place] [phone] Rhys Humphrey MD [address] [place] [address] [place] [address] 12/27/2023 11:00 AM EDT Office Visit Cardiology [address] [place] [address] Mi Neil, CECI [address] [place] [address] 03/18/2024 9:00 AM EDT Nurse Only Ancillary [address] [place] [address] [place], Nurse Annual Wellness [address] [place] [address] [place] [address] Scheduled Procedures Name Priority Associated Diagnoses Date/Ti [...] D LEVEL ONCE IN A LIFETIME-USE SMARTSET# [id number] Completed 06/29/2020, 03/16/2015 Pneumococcal Vaccine: 65+ Years [...] Documents on File Type Date Recorded Patient Hanging Flags Decorator Expl anation POLST 10/15/2019 3:17 PM POLST POLST 03/05/2019 POLST FORM Advance Directives and Living Will 01/27/2013 LIVING WILL Advance Directives and Living Will 01/27/2013 LIVING WILL Power of Electrical Research Engineer 01/27/2013 POWER OF A TTORNEY Power of Electrical Research Engineer 01/27/2013 POWER OF A TTORNEY Healthcare Agents on File Name Relationship Healthcare Agent Relationship Communication Cydney Benito Other - (no specific identity) Second Alternate Health Care Agent Anyi More Adult Child Health Care Roberth r of Electrical Research Engineer Care Teams Platform Operations Director Relationship Specialty Start Date End Date Rhys Humphrey MD [address] [place] [address] [place] [address] PCP - General Family Medicine 06/09/21 documented as of this encounter
--- OUTSIDE RECORDS SUMMARY | 2023-10-29 06:29 | External Medical Summary ---
Author Name Unknown Address Unknown Organization [id number]:[place] [place] [address] [place] [address] Laboratory Report Ordering Provider Test Date Status PADMINI XIE 08/10/2023 13:15:00 Final Observation Date Value Abnormality Reference (Units ) Status Bacteria identified in Specimen by Culture 08/10/2023 13:15:00 No acid fast bacilli isolated Final Microscopic observation [Identifier] in Specimen by Rhodamine-auramine fluorochrome stain 08/10/2023 13:15:00 No acid fast bacilli seen Final Test: Culture, AFB
Spec imen Source: Lung, Left upper lobe
Specimen Type: Bronchoalveolar Lavage (BAL)
Specimen Date: 08/10/2023 1:15 PM
Result Date: 10/09/2023 7:40 AM
Result Status: Final result
Resulting Lab: [facility] [place]
[address]
[place] [address]

CULTURE

No acid fast bacilli isolated

STAIN

No acid fast bacilli seen

null Performing Location [facility] [place] [address] [place] [address]
--- OUTSIDE RECORDS SUMMARY | 2023-10-29 06:29 | External Medical Summary ---
Author Name Unknown Address Unknown Organization [id number]:[facility] [place] [facility] [place] [address] [place] [id number] Laboratory Report Ordering Provider Test Date Status ROJASPADMINI 08/10/2023 13:15:00 Final Observation Date Value Abnormality Reference (Units ) Status Bacteria identified in Specimen by Culture 08/10/2023 13:15:00 No fungus isolated Final Fungal Smear 08/10/2023 13:15:00 No yeast or hyphae seen. Final Test: Culture, Fungus, Non-D erm
Specimen Source: Lung, Left upper lobe
Specimen Type: Bronchoalveolar Lavage (BAL)
Specimen Date: 08/10/2023 1:15 PM
Result Date: 08/31/2023 10:13 AM
Result Status: Final result
Resulting Lab: [facility] [place] [place]
[address]
[facility] [address]

CULTURE

No fungus isolated

STAIN

No yeast or hyphae seen.

null Performing Location [facility] [place] [place] [address] [facility] [address]
--- OUTSIDE RECORDS SUMMARY | 2023-10-29 06:29 | External Medical Summary ---
Author Name Unknown Address Unknown Organization [id number]:[facility]ORY [facility] [place] - [address] [place] [address] Laboratory Report Ordering Provider Test Date Status PADMINI XIE 08/10/2023 13:13:00 Final Observation Date Value Abnormality Reference (Units ) Status Bacteria identified in Specimen by Culture 08/10/2023 13:13:00 No acid fast bacilli isolated Final Microscopic observation [Identifier] in Specimen by Rhodamine-auramine fluorochrome stain 08/10/2023 13:13:00 No acid fast bacilli seen Final Test: Culture, AFB
Spec imen Source: Lung, Left lower lobe
Specimen Type: Bronchoalveolar Lavage (BAL)
Specimen Date: 08/10/2023 1:13 PM
Result Date: 10/09/2023 7:40 AM
Result Status: Final result
Resulting Lab: [facility] [place]
[address]
[place] [address]

CULTURE

No acid fast bacilli isolated

STAIN

No acid fast bacilli seen

null Performing Location [facility] [place] - [address] [place] [address]
--- OUTSIDE RECORDS SUMMARY | 2023-10-29 06:29 | External Medical Summary ---
Author Name Unknown Address Unknown Organization [id number]:LAB[facility]ATORY [facility] [place] - [address] [place] [address] Laboratory Report Ordering Provider Test Date Status PADMINI XIE 08/10/2023 13:12:00 Final Observation Date Value Abnormality Reference (Units ) Status Bacteria identified in Specimen by Culture 08/10/2023 13:12:00 No acid fast bacilli isolated Final Microscopic observation [Identifier] in Specimen by Rhodamine-auramine fluorochrome stain 08/10/2023 13:12:00 No acid fast bacilli seen Final Test: Culture, AFB
Spec imen Source: Lung
Specimen Type: Bronchial Washing
Specimen Date: 08/10/2023 1:12 PM
Result Date: 10/09/2023 7:40 AM
Result Status: Final result
Resulting Lab: LAB[facility]ATORY [facility] [place]
[address]
[place] [address]

CULTURE

No acid fast bacilli isolated

STAIN

No acid fast bacilli seen

null Performing Location LAB[facility]ORY [facility] [place] - [address] [place] [address]
--- OUTSIDE RECORDS SUMMARY | 2023-10-29 06:29 | External Medical Summary ---
Author Name Unknown Address Unknown Organization [id number]:[place] [facility] [place] [address] [place] [id number] Laboratory Report Ordering Provider Test Date Status ROJASPADMINI 08/10/2023 13:13:00 Final Observation Date Value Abnormality Reference (Units ) Status Bacteria identified in Specimen by Culture 08/10/2023 13:13:00 No fungus isolated Final Fungal Smear 08/10/2023 13:13:00 No yeast or hyphae seen. Final Test: Culture, Fungus, Non-D erm
Specimen Source: Lung, Left lower lobe
Specimen Type: Bronchoalveolar Lavage (BAL)
Specimen Date: 08/10/2023 1:13 PM
Result Date: 08/31/2023 10:13 AM
Result Status: Final result
Resulting Lab: [facility] [place]
[address]
[facility] [address]

CULTURE

No fungus isolated

STAIN

No yeast or hyphae seen.

null Performing Location [facility] [place] [address] [facility] [address]
--- OUTSIDE RECORDS SUMMARY | 2023-10-29 06:29 | External Medical Summary | Summary of Care ---
Author Name Unknown Organization [facility] Address [address] [place] [address] Phone [phone] Care Team Providers Care Leverman Name Role Phone Rhys Humphrey MD Primary Care Provide r Reason for Visit * Reason Onset Date Comments [facility]: Maintenance 08/15/2023 Encounter Details Date Type Department Care Team (Late st Contact Info) Description 08/15/2023 10:30 AM EST Scheduled Telephone [facility], [facility] [address] [facility] [place] [address] [facility] [place] [address] [facility] [place] [address] Allergies Active Allergy Reactions Criticality Noted Date [...] before bedtime. 50 Cap 0 01/18/2021 Active Mzwagqs-Abznyvhco-Bl nc 333-133-5 MG Oral Tablet Take 1 Tablet by mouth daily. 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),COPD, group D, by [...] (Lasix)Indications:C hronic diastolic congestive heart failure ([facility]) One tablet daily with an extra tablet [...] mRNA, LNP-s, No Pre serve, 2-Dose Series (Gigalocal) 07/11/2021,11/14/2020,10/24/2020 Covid-19, Mrna, Lnp-s, Pf, B ivalent, 30 Mcg, IM, 12 yrs and above (Gigalocal) 07/21/2022 Pneumococcal Conjugate Vacc, 13 Valent (Prevnar) 03/16/2015 Pneumococcal Conjugate Vacci ne, 20-valent ([id number]) 07/21/2022 Pneumococcal Polysaccharide PPV23 (Pneumovax) 03/05/2019,07/18/2007 SEASONAL [...] Telephone Encounter - Estee Verde RN - 08/15/2023 2:18 PM EST No phone call to patient, currently inpatient [facility] Johnson Vice President Of Compliance [facility] documented in this encounter Plan of Treatment Upcoming Encounters Date Type Department Care Team (Late st Contact Info) Description 08/21/2023 1:10 PM EST Office Visit Family Medicine [address] [place] [phone] [place] [address] 08/30/2023 11:15 AM EST Office Visit Hematology/Oncology [facility] [place] [address] [facility] [place] [address] Martínez Lopes MD [address] [facility] [place] [address] 09/03/2023 12:30 PM EST Nutrition Services [facility], [facility] [address] [facility] [place] [address] Lovely Bravo, RDN [address] [facility] [place] [address] 09/17/2023 9:40 AM EST Office Visit Dermatology [address] [place] [address] Marycruz Almazan PA-C [address] [place] [address] [place] [address] 10/03/2023 10:30 AM EST Office Visit [facility] [address] [place] [phone] Sosa Freeman CRNP [address] [place] [address] 10/16/2023 11:30 AM EST Office Visit Gastroenterology, [facility] [address] [place] [address] Lizzette Silva CRNP [address] [place] [address] 12/10/2023 9:20 AM EDT Office Visit Family Medicine [address] [place] [phone] Rhys Humphrey MD [address] [place] [address] [place] [address] 12/27/2023 11:00 AM EDT Office Visit Cardiology [address] [place] [address] Mi Neil, CECI [address] [place] [address] 03/18/2024 9:00 AM EDT Nurse Only Ancillary [address] [place] [address] [place], Nurse Annual [address] [place] [address] Scheduled Procedures Name Priority Associated Diagnoses Date/Ti [...] D LEVEL ONCE IN A LIFETIME-USE SMARTSET# 30013 Completed 06/29/2020, 03/16/2015 Pneumococcal Vaccine: 65+ Years [...] Documents on File Type Date Recorded Patient Verifying Specialist Expl anation POLST 10/15/2019 3:17 PM POLST POLST 03/05/2019 POLST FORM Advance Directives and Living Will 01/27/2013 LIVING WILL Advance Directives and Living Will 01/27/2013 LIVING WILL Power of Auto Salvage Worker 01/27/2013 POWER OF A TTORNEY Power of Auto Salvage Worker 01/27/2013 POWER OF A TTORNEY Healthcare Agents on File Name Relationship Healthcare Agent Relationship Communication Cydney Benito Other - (no specific identity) Second Alternate Health Care Agent Anyi More Adult Child Health Care Roberth r of Auto Salvage Worker Care Teams [place] Relationship Specialty Start Date End Date Rhys Humphrey MD [address] [place] [address] [place] [phone] PCP - General Family Medicine 06/09/21 documented as of this encounter
--- OUTSIDE RECORDS SUMMARY | 2023-10-29 06:30 | External Medical Summary ---
Author Name Unknown Address Unknown Organization K01:LAB[facility]ATORY [facility] [place] - [address] [place] [address] Laboratory Report Ordering Provider Test Date Status PADMINI XIE 08/10/2023 13:11:00 Final Observation Date Value Abnormality Reference (Units ) Status Bacteria identified in Specimen by Culture 08/10/2023 13:11:00 No acid fast bacilli isolated Final Microscopic observation [Identifier] in Specimen by Rhodamine-auramine fluorochrome stain 08/10/2023 13:11:00 No acid fast bacilli seen Final Test: Culture, AFB
Spec imen Source: Lung, Right upper lobe
Specimen Type: Bronchoalveolar Lavage (BAL)
Specimen Date: 08/10/2023 1:11 PM
Result Date: 10/09/2023 7:40 AM
Result Status: Final result
Resulting Lab: [facility]ATORY [facility] [place]
[address]
[place] [address]

CULTURE

No acid fast bacilli isolated

STAIN

No acid fast bacilli seen

null Performing Location LABORATORY [facility] [place] - [address] [place] [address]
--- OUTSIDE RECORDS SUMMARY | 2023-10-29 06:30 | External Medical Summary ---
Author Name Unknown Address Unknown Organization K01:LAB[facility]ORY [facility] [place] - [address] [facility] [facility] [address] Laboratory Report Ordering Provider Test Date Status PADMINI XIE 08/10/2023 13:12:00 Final Observation Date Value Abnormality Reference (Units) Status Bacteria identified in Specimen by Culture 08/10/2023 13:12:00 [id number]^YEAST NOT CRYPTOCOCCUS Abnormal Final Yeast not Cryptococcus Bacteria identified in Specimen by Culture 08/10/2023 13:12:00 [id number]^PENICILLIUM SPECIES Abnormal Final Penicillium species
Most closely resembling - Penicillium chrysogenum Bacteria identified in Specimen by Culture 08/10/2023 13:12:00 [id number]^ASPERGILLUS NIGER Abnormal Final Aspergillus niger Fungal Smear 08/10/2023 13:12:00 No yeast or hyphae seen. Final Test: Culture, Fungus, Non- Derm
Specimen Source: Lung
Specimen Type: Bronchial Washing
Specimen Date: 08/10/2023 1:12 PM
Result Date: 09/01/2023 7:48 AM
Result Status: Final result
Abnormal: Yes
Resulting Lab: [facility] [place]
[address] [facility] [address]

CULTURE

Yeast not Cryptococcus (Abnormal)

Penicillium species (Abnormal)

Most closely resembling - Penicillium chrysogenum

Aspergillus niger (Abnormal)

STAIN

No yeast or hyphae seen.

null Performing Location LABORATORY [facility] [place] - [address] [facility] [address] [facility] [address]
--- OUTSIDE RECORDS SUMMARY | 2023-10-29 06:30 | External Medical Summary ---
Author Name Unknown Address Unknown Organization K01:[facility] [place] [address] [place] [id number] Laboratory Report Ordering Provider Test Date Status PADMINI XIE 08/10/2023 13:11:00 Final Observation Date Value Abnormality Reference (Units ) Status Bacteria identified in Specimen by Culture 08/10/2023 13:11:00 No fungus isolated Final Fungal Smear 08/10/2023 13:11:00 No yeast or hyphae seen. Final Test: Culture, Fungus, Non-D erm
Specimen Source: Lung, Right upper lobe
Specimen Type: Bronchoalveolar Lavage (BAL)
Specimen Date: 08/10/2023 1:11 PM
Result Date: 08/31/2023 10:22 AM
Result Status: Final result
Resulting Lab: [facility] [place]
[address]
[facility] [address]

CULTURE

No fungus isolated

STAIN

No yeast or hyphae seen.

null Performing Location [facility] [place] [address] [facility] [address]
--- OUTSIDE RECORDS SUMMARY | 2023-10-29 06:30 | External Medical Summary ---
Author Name Unknown Address Unknown Organization K01:LABORATORY [facility] [place] - [address] [place] [id number] Laboratory Report Ordering Provider Test Date Status PADMINI XIE 08/10/2023 13:10:00 Final Observation Date Value Abnormality Reference (Units) Status Bacteria identified in Specimen by Culture 08/10/2023 13:10:00 [id number]^YEAST NOT CRYPTOCOCCUS Abnormal Final Yeast not Cryptococcus Fungal Smear 08/10/2023 13:10:00 No yeast or hyphae seen. Final Test: Culture, Fungus, Non-D erm
Specimen Source: Lung, Right middle lobe
Specimen Type: Bronchoalveolar Lavage (BAL)
Specimen Date: 08/10/2023 1:10 PM
Result Date: 09/01/2023 7:48 AM
Result Status: Final result
Abnormal: Yes
Resulting Lab: [facility]ORY [facility] [place]
[address]
[place] [id number]

CULTURE

Yeast not Cryptococcus (Abnormal)

STAIN

No yeast or hyphae seen.

null Performing Location LABORATORY [facility] [place] - [address] [facility] [address]
--- OUTSIDE RECORDS SUMMARY | 2023-10-29 06:30 | External Medical Summary ---
Author Name Unknown Address Unknown Organization K01:[facility] [place] [address] [place] [address] Laboratory Report Ordering Provider Test Date Status PADMINI XIE 08/10/2023 13:10:00 Final Observation Date Value Abnormality Reference (Units ) Status Bacteria identified in Specimen by Culture 08/10/2023 13:10:00 No acid fast bacilli isolated Final Microscopic observation [Identifier] in Specimen by Rhodamine-auramine fluorochrome stain 08/10/2023 13:10:00 No acid fast bacilli seen Final Test: Culture, AFB
Spec imen Source: Lung, Right middle lobe
Specimen Type: Bronchoalveolar Lavage (BAL)
Specimen Date: 08/10/2023 1:10 PM
Result Date: 10/09/2023 7:40 AM
Result Status: Final result
Resulting Lab: [facility] [place]
[address]
[place] [address]

CULTURE

No acid fast bacilli isolated

STAIN

No acid fast bacilli seen

null Performing Location [facility] [place] [address] [place] [address]
--- OUTSIDE RECORDS SUMMARY | 2023-10-29 06:30 | External Medical Summary ---
Author Name Unknown Address Unknown Organization K01:[place] [place] [address] [place] [address] Laboratory Report Ordering Provider Test Date Status DEANNA XIEENRIQUETA 08/10/2023 13:10:00 Final < 10,000 colonies/ml normal efren Observation Date Value Abnormality Reference (Units) Status Bacteria identified in Specimen by Culture 08/10/2023 13:10:00 [id number]^MORAXELLA CATARRHALIS Abnormal Final <10,000 colonies/mL Moraxell a catarrhalis Gram Stain 08/10/2023 13:10:00 Few Polymorphonuclear leukocy rao Final Gram Stain 08/10/2023 13:10:00 No organisms seen Final Test: Culture, Bronchial, Qu antitative
Specimen Source: Lung, Right middle lobe
Specimen Type: Bronchoalveolar Lavage (BAL)
Specimen Date: 08/10/2023 1:10 PM
Result Date: 08/13/2023 12:53 PM
Result Status: Final result
Abnormal: Yes
Resulting Lab: [facility] [place]
[address]
[place] [address]

CULTURE

<10,000 colonies/mL Moraxella catarrhalis (Abnormal)

< 10,000 colonies/ml normal efren

STAIN

Few Polymorphonuclear leukocytes

No organisms seen

null Performing Location [facility] [place] [address] [facility] [address]
[2023-10-29] MEDS ORDERED: methylPREDNISolone 125 MG/2 ML VIAL IV STA (06:37)
[2023-10-29] MEDS ORDERED: ALBUTEROL 0.083% NEBU SOLN 3 ML VIAL NEB STA (06:37)
[2023-10-29 06:39] LABS: Basophils # (auto) 0.26 K/uL (0.00-0.20); Basophils % (auto) 2.4 %; Eosinophils # (auto) 0.62 K/uL (0.00-0.50); Eosinophils % (auto) 5.7 %; Hematocrit (blood only) 33.1 % (37.0-47.0); Hemoglobin 10.1 g/dl (12.0-16.0); Immature Granulocytes # (auto) 0.04 K/uL (0.01-0.20); Immature Granulocytes % (auto) 0.4 %; Lymphocytes # (auto) 1.64 K/uL (1.20-3.40); Lymphocytes % (auto) 15.2 %; Mean Corpuscular Hemoglobin 25.7 pg (25.0-34.0); Mean Corpuscular Hgb Conc 30.5 g/dL (32.0-36.0); Mean Corpuscular Volume 84.2 fL (80.0-100.0); Mean Platelet Volume 9.1 fL (9.4-12.4); Monocytes # (auto) 1.19 K/uL (0.11-0.59); Neutrophils # (auto) 7.04 K/uL (1.40-6.50); Neutrophils % (auto) 65.3 %; Platelet Count 627 K/uL (130-400); RDW Coefficient of Variation 18.2 % (11.5-14.5); RDW Standard Deviation 55.8 fL (36.4-46.3); Red Blood Count 3.93 M/uL (4.20-5.40); White Blood Count 10.79 K/ul (4.8-10.8)
--- NOTE | 2023-10-29 06:41 | Emergency Department Note ---
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 She chronically wore 2 L nasal cannula up until the past 2 weeks and then switch to 4 L nasal cannula. She has a new cough for the past week. She denies any chest pain or belly pain. No nausea, vomiting, or diarrhea. She is unable to lie flat but has not been able to do this for the past 8 months. No dysuria, urgency, or frequency. No other exacerbating or remitting factors. ADDITIONAL HISTORY OBTAINED: Per HPI Chronic Medical/Social Conditions Affecting Care: Per HPI PAST MEDICAL HISTORY:See Below PAST SURGICAL HISTORY:See Below FAMILY HISTORY:See Below SOCIAL HISTORY:See Below HOME MEDICATIONS:See Below ALLERGIES:See Below VITALS:See Below PHYSICAL EXAMINATION: GENERAL: Sitting up in bed, alert, ill-appearing, disheveled, dyspneic with conversation on 5 L nasal cannula EYE EXAM: normal conjunctiva. OROPHARYNX: Dry mucous membranes NECK: supple, no nuchal rigidity, no adenopathy, non-tender LUNGS: Diffuse wheezing bilaterally. Normal chest wall mechanics HEART: no murmurs, S1 normal and S2 normal ABDOMEN: abdomen soft, non-tender, normo-active bowel sounds, no masses, no rebound or guarding. UPPER EXTREMITIES: upper extremities are grossly normal. LOWER EXTREMITIES: No pitting edema. NEURO EXAM: Normal sensorium, cranial nerves II-XII grossly intact, normal speech, no gross weakness of arms, no gross weakness of legs. MEDICAL DECISION MAKING: Patient is an 82-year-old female who presents the ER for shortness of breath. IV was established blood work was obtained. She has an extensive history of lung cancer as well as COPD. Labs show no significant leukocytosis but a mild anemia 10. INR unremarkable. BMP with LFTs bilirubin was unremarkable. Troponin was elevated at 24 and trended up to 30. Viral panel was negative. CT angio of the chest shows pneumonitis with cancer. Patient was covered with IV antibiotics including Rocephin and azithromycin. She was given hour-long neb treatment. She was also given IV steroids. She was updated bedside. Discussed case with the hospitalist for further evaluation management treatment. She was on 5 L nasal cannula upon arrival which is increased from baseline of about 4. Consults/Care Managements Discussions: Per [facility] Triage Nursing notes reviewed. Limited review of prior medical records performed Vital Signs: reviewed and remarkable for hypoxic Differential diagnosis: Differential diagnoses includes but is not limited to pneumonia, bronchitis, COPD/Asthma exacerbation, pneumothorax, pulmonary embolism, congestive heart failure, acute coronary syndrome ER treatment provided: See below Diagnostics interpreted by me include EKG and cardiac monitoring as listed below: -Cardiac Monitoring: An order was placed for continuous cardiac monitoring. The monitor shows a rate of 111 with sinus rhythm. -ECG: Sinus tachycardia rate of 108 Normal axis No PVCs QTc 498 -Laboratory studies:Interpreted by me as stated above in MDM and shown below. Imaging studies: Xrays: As interpreted by me: Portable AP upright 1 view of the chest shows bilateral subtle infiltrates at the base of the lungs not significant change from previous CTs show: CT angio chest as described above Procedures:none Critical Care: I have personally spent 32 minutes of critical care time in the direct management of this patient. This includes bedside care, interpretation of diagnostic studies, and testing, discussion with consultants, patient, and family members, and other required patient management activities. This 32 minutes is in excess of all separately billable procedures. 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 related osteoporosis Nocturnal hypoxemia Small cell neuroendocrine carcinoma of lung History of COVID-19 2+ years ago > no further issues Chronic anemia chronic, baseline hgb 10-11 range per chart review Aortic stenosis Mild aortic stenosis per 12/29/21 echo nonrheumatic Carotid artery stenosis s/p right (5+ years ago)/left (2020) carotid endarterectomy Thyroid nodule Under surveillance Myocardial Infarction Several years ago ISELA (obstructive sleep apnea) Not currently using CPAP due to recall TIA (transient ischemic attack) 10 years ago, 03/11/21 > follows with [place] [facility] Prediabetes Depression Non-Hodgkin lymphoma Chronic diastolic heart failure Nocturnal hypoxemia Lymphoma GERD (gastroesophageal reflux disease) COPD (chronic obstructive pulmonary disease) Stable Hypertension Hyperlipidemia Surgical History History of left-sided carotid endarterectomy History of esophagogastroduodenoscopy (EGD) History of colonoscopy History of left hip replacement H/O carotid endarterectomy Right History of hysterectomy Family History Other No family history of adverse response to anesthesia Stroke Social History Smoking Status: Former smoker Tobacco Type: Cigarettes Second Hand Exposure: No; Do You Dip or Chew Tobacco: No; Hx Alcohol Use: No Hx Substance Use: No Preferred Language: Icelandic Communication Ability: Effective 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 Beliefs That Will Affect Care: None marital status: Unknown Current Living Situation: Alone Current Living Situation Comment: lives in a senior apartment building current occupational status: retired Feels Safe at Home: Yes Assistive Devices: Walker Allergies Allergies Allergy/AdvReac Type Severity Reaction Status Date / Time adhesive Allergy Intermediate HIVES Verified 08/12/23 18:14 Home Meds Home Medications Medication Instructions Recorded Confirmed albuterol sulfate 90 mcg/actuation 2 puff inhalation Q4 PRN Shortness 09/18/19 08/12/23 aerosol inhaler Of Breath Or Wheezing atorvastatin 40 mg tablet (Lipitor) 40 mg PO QAM 09/18/19 10/29/23 montelukast 10 mg tablet 10 mg PO QAM 09/18/19 08/12/23 (Singulair) omega 5-pif-boo-fish oil 1,000 mg 1 cap PO QAM 09/18/19 08/12/23 (120 mg-180 mg) capsule (Fish Oil) furosemide 40 mg tablet 40 mg PO QAM 03/09/21 08/12/23 ferrous sulfate 325 mg (65 mg 325 mg PO DAILY 07/03/22 08/12/23 iron) tablet,delayed release acetaminophen 325 mg tablet 325 mg PO Q6H PRN Pain 08/12/23 08/12/23 (Tylenol) aspirin 81 mg tablet,delayed 81 mg PO DAILY 08/12/23 08/12/23 release benzonatate 100 mg capsule 100 mg PO TID PRN Cough 08/12/23 08/12/23 grxvseo-zsyzmrcbx-qqvl 333 mg-133 1 tab PO DAILY 08/12/23 08/12/23 mg-5 mg tablet clobetasol 0.05 % topical cream 1 applic topical DIRECTED 08/12/23 08/12/23 clopidogrel 75 mg tablet (Plavix) 75 mg PO DAILY 08/12/23 08/12/23 conjugated estrogens 0.625 mg/gram 500 mg vaginal 2XWK 08/12/23 08/12/23 vaginal cream (Premarin) cranberry 500 mg capsule 500 mg PO BID 08/12/23 08/12/23 diclofenac sodium 1 % topical gel 2 g topical DAILY PRN SHOULDER PAIN 08/12/23 08/12/23 docusate sodium 100 mg capsule 200 mg PO BID PRN Constipation 08/12/23 08/12/23 famotidine 20 mg tablet (Pepcid) 20 mg PO BID PRN Heartburn 08/12/23 08/12/23 fluticasone furoate 100 1 inh inhalation DAILY 08/12/23 08/12/23 mcg/actuation blister powder for inhalation (Arnuity Ellipta) gabapentin 300 mg capsule 900 mg PO HS 08/12/23 08/12/23 ipratropium 0.5 mg-albuterol 3 mg 3 ml inhalation Q6H PRN Shortness 08/12/23 08/12/23 (2.5 mg base)/3 mL nebulization Of Breath Or Wheezing soln loratadine 10 mg tablet (Claritin) 10 mg PO DAILY 08/12/23 10/29/23 losartan 50 mg tablet 50 mg PO DAILY 08/12/23 08/12/23 meclizine 12.5 mg tablet 12.5 mg PO TID PRN Dizziness 08/12/23 08/12/23 menthol 0.44 %-zinc oxide 20.6 % 1 applic topical QID PRN AFFECTED 08/12/23 08/12/23 topical ointment (Calmoseptine) AREA-VAGINAL AREA avqwwyegtivl-xhepgioo-ytnikm tablet 1 tab PO DAILY 08/12/23 08/12/23 pantoprazole 40 mg tablet,delayed 40 mg PO DAILY 08/12/23 08/12/23 release ramelteon 8 mg tablet 8 mg PO HS 08/12/23 08/12/23 umeclidinium 62.5 mcg-vilanterol 1 inh inhalation DAILY 08/12/23 08/12/23 25 mcg/actuation powdr for inhalation (Anoro Ellipta) allopurinol 100 mg tablet 100 mg PO DAILY 10/29/23 10/29/23 codeine 10 mg-guaifenesin 100 mg/5 5 ml PO TID PRN Cough 10/29/23 10/29/23 mL Syrup fluticasone furoate 100 1 inh inhalation DAILY 10/29/23 10/29/23 mcg/actuation blister powder for inhalation (Arnuity Ellipta) trazodone 50 mg tablet 50 mg PO HS 10/29/23 10/29/23 umeclidinium 62.5 mcg-vilanterol 1 ea inhalation DAILY 10/29/23 10/29/23 25 mcg/actuation powdr for inhalation Previous Rx's Medication Instructions Recorded cefdinir 300 mg capsule 300 mg PO BID #14 caps 08/15/23 hydrocodone-homatropine 5 mg-1.5 5 ml PO Q6H PRN cough #473 mL 08/15/23 mg/5 mL oral syrup (Hydromet) Results & Data (ED) Vital Signs Vital Signs - 24 hr 10/29/23 06:14 10/29/23 06:14 10/29/23 06:25 Temperature 36.6 C Temperature Source Oral Pulse Rate 112 H Pulse Rate [Right Finger] Pulse Rhythm Regular Pulse Rhythm [Right Finger] Pulse Strength [Right Finger] Respiratory Rate 29 H Respiratory Effort / Characteristics Pursed Lip Pursed Lip Respiratory Depth Shallow Normal Respiratory Pattern Tachypnea Tachypnea Blood Pressure 172/80 H Blood Pressure [Right Arm] Blood Pressure Mean 110 Blood Pressure Mean [Right Arm] Blood Pressure Position Sitting Pulse Oximetry 90 90 Oxygen Delivery Method Nasal Cannula Nasal Cannula Nasal Cannula Oxygen Flow Rate 4 4 4 Sepsis Recent Fever Within 48 Hours No Sepsis New/Unexplained Change in Mental Status No Sepsis Action Taken by Nursing No Action Required 10/29/23 06:34 10/29/23 06:59 10/29/23 08:09 Temperature Temperature Source Pulse Rate 107 H Pulse Rate [Right Finger] 106 H 100 H Pulse Rhythm Pulse Rhythm [Right Finger] Regular Regular Pulse Strength [Right Finger] Normal Respiratory Rate 12 12 Respiratory Effort / Characteristics Respiratory Depth Normal Normal Respiratory Pattern Blood Pressure Blood Pressure [Right Arm] 172/80 H 172/80 H Blood Pressure Mean Blood Pressure Mean [Right Arm] 110 110 Blood Pressure Position Pulse Oximetry 100 96 Oxygen Delivery Method Nasal Cannula Room Air Oxygen Flow Rate 4 Sepsis Recent Fever Within 48 Hours Sepsis New/Unexplained Change in Mental Status Sepsis Action Taken by Nursing Laboratory Data 10/29/23 06:15 10/29/23 06:15 Lab Results 10/29/23 10/29/23 10/29/23 Range/Units 06:15 06:22 08:02 WBC 10.79 (4.8-10.8) K/ul RBC 3.93 L (4.20-5.40) M/uL Hgb 10.1 L (12.0-16.0) g/dl Hct 33.1 L (37.0-47.0) % MCV 84.2 (80.0-100.0) fL MCH 25.7 (25.0-34.0) pg MCHC 30.5 L (32.0-36.0) g/dL RDW Std Deviation 55.8 H (36.4-46.3) fL RDW Coeff of Ad 18.2 H (11.5-14.5) % Plt Count 627 H (130-400) K/uL MPV 9.1 L (9.4-12.4) fL Immature Gran % (Auto) 0.4 % Neut % (Auto) 65.3 % Lymph % (Auto) 15.2 % [place] % (Auto) 11.0 % Eos % (Auto) 5.7 % Baso % (Auto) 2.4 % Neut # (Auto) 7.04 H (1.40-6.50) K/uL Lymph # (Auto) 1.64 (1.20-3.40) K/uL [place] # (Auto) 1.19 H (0.11-0.59) K/uL Eos # (Auto) 0.62 H (0.00-0.50) K/uL Baso # (Auto) 0.26 H (0.00-0.20) K/uL Immature Gran # (Auto) 0.04 (0.01-0.20) K/uL PT 11.4 (9.0-12.0) Seconds INR 1.0 (0.9-1.1) APTT 24 (21-31) Seconds PTT Ratio 0.9 Sodium 140 (136-145) mmol/L Potassium 3.8 (3.5-5.1) mmol/L Chloride 101 (98-107) mmol/L Carbon Dioxide 32 (21-32) mmol/L Anion Gap 7 (3-11) BUN 18 (6-23) mg/dl Creatinine 0.74 (0.6-1.2) mg/dl Est Cr Clr Drug Dosing 54.3 ml/min Est GFR ( Amer) 86.2 ml/min Est GFR (Non-Af Amer) 74.4 ml/min BUN/Creatinine Ratio 24.3 H (10-20) Glucose 142 H (70-99(Fasting)) mg/dl Calcium 9.4 (8.6-10.3) mg/dl Total Bilirubin 0.3 (0.2-1.0) mg/dl AST 18 (13-39) U/L ALT 10 (7-52) U/L Alkaline Phosphatase 64 (34-104) U/L Troponin I High Sens 23.6 H 29.6 H (0-14) pg/ml Total Protein 6.7 (6.0-8.3) gm/dl Albumin 4.1 (3.4-5.0) gm/dl Globulin 2.6 (2.5-4.0) gm/dl Albumin/Globulin Ratio 1.6 (0.9-2) Adenovirus (PCR) Not Detected (NotDetected) B. pertussis DNA (PCR) Not Detected (NotDetected) B.parapertussis DNA PCR Not Detected (NotDetected) C. pneumoniae DNA (PCR) Not Detected (NotDetected) Coronavirus OC43 (PCR) Not Detected (NotDetected) Coronavirus HKU1 (PCR) Not Detected (NotDetected) Coronavirus 229E (PCR) Not Detected (NotDetected) SARS-CoV-2 (PCR) Not Detected (NotDetected) Coronavirus NL63 (PCR) Not Detected (NotDetected) Human Metapneumovir PCR Not Detected (NotDetected) Influenza Type A (PCR) Not Detected (NotDetected) Influenza Type B (PCR) Not Detected (NotDetected) M. pneumoniae (PCR) Not Detected (NotDetected) Parainfluenza 1 (PCR) Not Detected (NotDetected) Parainfluenza 2 (PCR) Not Detected (NotDetected) Parainfluenza 3 (PCR) Not Detected (NotDetected) Parainfluenza 4 (PCR) Not Detected (NotDetected) RSV (PCR) Not Detected (NotDetected) Entero/Rhino (PCR) Not Detected (NotDetected) Administered Medications Discontinued Medications Albuterol (Albuterol 0.083% Nebu Soln 3 Ml Vial) 7.5 mg NEB NOW STA; Protocol Stop: 10/29/23 06:38 Last Admin: 10/29/23 06:45 Dose: 7.5 mg Documented By: NISHANT Ceftriaxone Sodium (Rocephin) 2,000 mg in 50 mls @ 100 mls/hr IV NOW STA Stop: 10/29/23 09:34 Last Admin: 10/29/23 09:58 Dose: 100 mls/hr Documented By: FORD Ioversol (Optiray 320 125ml) 112 ml IV ONCE ONE Stop: 10/29/23 07:55 Last Admin: 10/29/23 07:55 Dose: 112 ml Documented By: DELROY Methylprednisolone (Methylprednisolone 125 Mg/2 Ml Vial) 60 mg IV NOW STA Stop: 10/29/23 06:38 Last Admin: 10/29/23 06:45 Dose: 60 mg Documented By: NISHANT Imaging Data Radiologist's Impression: Chest X-Ray 10/29/23 06:18 XR chest 1V portable HISTORY: 82 years-old Female Chest pain, nonspecific COMPARISON: 08/12/2023 TECHNIQUE: AP view of the chest FINDINGS: Cardiomediastinal and hilar silhouettes are unchanged. Emphysema with chronic interstitial coarsening. There is no pneumothorax, large pleural effusion or overt pulmonary edema. Mild bibasilar densities, left greater than right. Bones appear grossly intact. IMPRESSION: 1. Emphysema with chronic interstitial coarsening. 2. Mild bibasilar densities favor atelectasis. A mild nonspecific pneumonitis could appear similarly. ACT 112: Negative or not required by law. The above report was generated using voice recognition software. It may contain grammatical, syntax or spelling errors. Electronically signed by: William Carranza M.D. 10/29/2023 7:49 AM Chest CTA 10/29/23 06:38 CT angio chest PE protocol CT DOSE: 544.04 mGy.cm HISTORY: 82 years-old Female with PE, sob w/ cancer. Acute shortness of breath TECHNIQUE: Multiple CTA images of the chest were obtained after the intravenous administration of 112 ml Optiray. Coronal and sagittal MIPS were obtained from the axial data set and were submitted for review. All measurements were obtained according to NASCET criteria. A dose lowering technique was utilized adhering to the principles of ALARA. COMPARISON: Chest radiograph of same day, CT chest 08/12/2023 FINDINGS: CTA: Mild cardiomegaly with trace pericardial effusion. Extensive coronary artery and mitral annular calcifications. Atherosclerosis of the thoracic aorta without aneurysm. There is patency of the imaged great vessels. No pulmonary emboli identified, however evaluation of the segmental and subsegmental branches is limited secondary to respiratory motion artifact. CT CHEST: Hypodense thyroid nodules measure up to 1.4 cm on the left. There is progressive pathologic lymphadenopathy of the chest. Conglomerate lymphadenopathy centered within the precarinal tissues measures up to approximately 6.6 x 5.8 cm on image 138, previously measuring up to approximately 5.4 x 4.1 cm on the prior study. Additionally there is progressive subcarinal and right hilar lymphadenopathy. Masslike soft tissue prominence within the left hilar distribution measures up to 4.2 x 3.3 cm which appears stable to mildly increased in size from prior. Trace right and small left pleural effusions. Pulmonary emphysema bronchial wall thickening and mild pulmonary edema. Narrowing of the left lower lobe bronchus on image 110 series 4 again noted with left lower lobe consolidation, similar to prior. 8 mm irregular nodule left upper lobe on image 167 redemonstrated. 4 mm fissural nodule of the right middle lobe on image 105. No acute upper abdominal abnormality. Tiny hiatal hernia with nonspecific mid to distal esophageal wall thickening. Borderline enlarged paraesophageal lymph nodes measure up to 10 mm, progressed from prior. Unremarkable soft tissues. No acute fracture or destructive bone lesion. IMPRESSION: 1. Left hilar mass redemonstrated suggestive of primary bronchogenic carcinoma which appears to have increased in size compared to the study from 08/12/2023. 2. Progressive metastatic mediastinal and hilar lymphadenopathy. 3. The aforementioned mass encases the left hilar structures and narrows/opacifies the left lower lobe bronchus again resulting in left lower lobe postobstructive pneumonitis. 4. Cardiomegaly with mild pulmonary edema, small left and trace right pleural effusions. 5. No pulmonary emboli identified. ACT 112: Negative or not required by law. The above report was generated using voice recognition software. It may contain grammatical, syntax or spelling errors. Electronically signed by: William Carranza M.D. 10/29/2023 9:05 AM Discharge Plan Visit Data Chief Complaint: Shortness of Breath/Dyspnea ED Provider: Zeyad Durant Discharge Problem: Acute respiratory distress, Pneumonitis, Elevated troponin Patient Disposition: Admitted As Inpatient Discharge Instructions Interventions: ED Discharge Assessment Last Done: 10/29/23 09:30
[2023-10-29 06:58] LABS: Albumin Globulin Ratio 1.6 (0.9-2); Albumin Level 4.1 gm/dl (3.4-5.0); BUN Creatinine Ratio 24.3 (10-20); Bilirubin,Total 0.3 mg/dl (0.2-1.0); Calcium 9.4 mg/dl (8.6-10.3); Creatinine Clr Calc Pharmacy 54.3 ml/min; Est GFR (African American) 86.2 ml/min; Est GFR (Non-African American) 74.4 ml/min; Globulin 2.6 gm/dl (2.5-4.0); Potassium 3.8 mmol/L (3.5-5.1); Total Protein 6.7 gm/dl (6.0-8.3)
[2023-10-29 07:04] LABS: Troponin I High Sensitivity 23.6 pg/ml (0-14)
[2023-10-29 07:36] LABS: Adenovirus PCR Not Detected (NotDetected); Bordetella parapertussis PCR Not Detected (NotDetected); Bordetella pertussis PCR Not Detected (NotDetected); Chlamydia pneumoniae PCR Not Detected (NotDetected); Coronavirus 229E PCR Not Detected (NotDetected); Coronavirus CoV-2 (COVID19)PCR Not Detected (NotDetected); Coronavirus HKU1 PCR Not Detected (NotDetected); Coronavirus NL63 PCR Not Detected (NotDetected); Coronavirus OC43PCR Not Detected (NotDetected); Human Metapneumovirus PCR Not Detected (NotDetected); Influenza A PCR Not Detected (NotDetected); Influenza B PCR Not Detected (NotDetected); Mycoplasma pneumoniae PCR Not Detected (NotDetected); Parainfluenza Virus 1 PCR Not Detected (NotDetected); Parainfluenza Virus 2 PCR Not Detected (NotDetected); Parainfluenza Virus 3 PCR Not Detected (NotDetected); Parainfluenza Virus 4 PCR Not Detected (NotDetected); Respiratory Syncytial VirusPCR Not Detected (NotDetected); Rhinovirus/Enterovirus PCR Not Detected (NotDetected)
[2023-10-29 07:42] LABS: Partial Thromboplastin Ratio 0.9; Partial Thromboplastin Time 24 Seconds (21-31); Prothrombin Time 11.4 Seconds (9.0-12.0)
--- NOTE | 2023-10-29 07:51 | XRay Report ---
XR chest 1V portable HISTORY: 82 years-old Female Chest pain, nonspecific COMPARISON: 08/12/2023 TECHNIQUE: AP view of the chest FINDINGS: Cardiomediastinal and hilar silhouettes are unchanged. Emphysema with chronic interstitial coarsening . There is no pneumothorax, large pleural effusion or overt pulmonary edema. Mild bibasilar densities , left greater than right. Bones appear grossly intact. IMPRESSION: 1. Emphysema with chronic interstitial coarsening. 2. Mild bibasilar densities favor atelectasis. A mild nonspecific pneumonitis could appear similarly. ACT 112: Negative or not required by law. The above report was generated using voice recognition software. It may contain grammatical, syntax o r spelling errors. Electronically signed by: William Carranza M.D. 10/29/2023 7:49 AM
[2023-10-29] MEDS ORDERED: OPTIRAY 320 125ml IV ONE (07:54)
[2023-10-29] MEDS ORDERED: AZITHROMYCIN 500 MG in DEXTROSE 5% 250 ML IV STA (09:05)
[2023-10-29] MEDS ORDERED: cefTRIAXone SODIUM 2,000 MG/50 ML BAG IV STA (09:05)
--- NOTE | 2023-10-29 09:07 | CT Scan Report ---
CT angio chest PE protocol CT DOSE: 544.04 mGy.cm HISTORY: 82 years-old Female with PE, sob w/ cancer. Acute shortness of breath TECHNIQUE: Multiple CTA images of the chest were obtained after the intravenous administration of 112 ml Optiray. Coronal and sagittal MIPS were obtained from the axial data set and were submitted for review. All measurements were obtained according to NASCET criteria. A dose lowering technique was u tilized adhering to the principles of ALARA. COMPARISON: Chest radiograph of same day, CT chest 08/12/2023 FINDINGS: CTA: Mild cardiomegaly with trace pericardial effusion. Extensive coronary artery and mitral annular calci fications. Atherosclerosis of the thoracic aorta without aneurysm. There is patency of the imaged gre at vessels. No pulmonary emboli identified, however evaluation of the segmental and subsegmental bran ches is limited secondary to respiratory motion artifact. CT CHEST: Hypodense thyroid nodules measure up to 1.4 cm on the left. There is progressive pathologic lymphaden opathy of the chest. Conglomerate lymphadenopathy centered within the precarinal tissues measures up to approximately 6.6 x 5.8 cm on image 138, previously measuring up to approximately 5.4 x 4.1 cm on the prior study. Additionally there is progressive subcarinal and right hilar lymphadenopathy. Massli ke soft tissue prominence within the left hilar distribution measures up to 4.2 x 3.3 cm which appear s stable to mildly increased in size from prior. Trace right and small left pleural effusions. Pulmonary emphysema bronchial wall thickening and mild pulmonary edema. Narrowing of the left lower lobe bronchus on image 110 series 4 again noted with lef t lower lobe consolidation, similar to prior. 8 mm irregular nodule left upper lobe on image 167 rede monstrated. 4 mm fissural nodule of the right middle lobe on image 105. No acute upper abdominal abnormality. Tiny hiatal hernia with nonspecific mid to distal esophageal wa ll thickening. Borderline enlarged paraesophageal lymph nodes measure up to 10 mm, progressed from pr ior. Unremarkable soft tissues. No acute fracture or destructive bone lesion. IMPRESSION: 1. Left hilar mass redemonstrated suggestive of primary bronchogenic carcinoma which appears to have increased in size compared to the study from 08/12/2023. 2. Progressive metastatic mediastinal and hilar lymphadenopathy. 3. The aforementioned mass encases the left hilar structures and narrows/opacifies the left lower lob e bronchus again resulting in left lower lobe postobstructive pneumonitis. 4. Cardiomegaly with mild pulmonary edema, small left and trace right pleural effusions. 5. No pulmonary emboli identified. ACT 112: Negative or not required by law. The above report was generated using voice recognition software. It may contain grammatical, syntax o r spelling errors. Electronically signed by: William Carranza M.D. 10/29/2023 9:05 AM
--- NOTE | 2023-10-29 09:25 | History & Physical Report ---
Date of Service October 29, 2023 Assessment & Plan (1) Acute on chronic hypoxic respiratory failure: Plan: 2/2 COPD exacerbation + possible post obstructive pneumonia. Cont plan as outlined below. (2) COPD exacerbation: Plan: Wheezing all throughout lungs today worse on the left lung in both anterior and posterior collier with rales. Received solumedrol 60mg this am, cont 40mg IV q8h, scheduled duonebs. Cont home Arnuity and Anoro inhalers. Cont oxygen support with titration to maintain saturation between 88-92%. (3) Pneumonitis: Plan: Possible infectious cause. Respiratory biofire panel was negative. Will add procalcitonin. Cont Rocephin/azithromycin at this time pending culture results and clinical improvement. No evidence of sepsis. (4) Elevated troponin: Plan: Flat on trend and only mildly elevated. Patient denies chest pain or other ACS type symptoms. EKG is not revealing active ischemia. This is likely related to demand in setting of acute illness with known h/o valvulopathy. No further workup at this time. (5) Small cell neuroendocrine carcinoma of lung: Plan: chemotherapy x 1 cycle in early October. Developed alopecia, but otherwise reportedly handled this well. No significant nausea/vomiting. Daughter reports that mom is only receiving "hald doses" of chemotherapy given her anemia. Cont per oncology. (6) ISELA (obstructive sleep apnea): Plan: history of this but noncompliant with CPAP after recall on her mask (7) Anemia: Plan: chronic, at her baseline. Anemia was present prior to starting chemotherapy with a component of iron deficiency. Per hematology. Monitor CBC this admission. (8) Chronic diastolic heart failure: Plan: compensated. Cont lasix per home regimen. DNR per my discussion with her on admission. DVT proph: Lovenox Dispo-to telemetry I spent a total of75 minutes coordinating, documenting, and providing care for this patient excluding time spent in the performance of separately billed services Sheryl Aleman DO [facility] Hospitalist History of Present Illness Chief Complaint: SOB/dyspnea Primary Care Provider: Rhys Humphrey MD 82-year-old female with a known history of non-Hodgkin's lymphoma and small cell cancer of the lung which is metastatic presents to the ER for shortness of breath. She has required an increase amount of supplemental oxygen from 2 L/min to 4 L/min in the last 2 weeks. She has a chronic cough that has gotten worse in the past week, followed by periods of poor recovery and increased SOB. Cough is productive of yellow sputum. Denies fevers or chills. Also reports that her home thermostat isn't working and it is warmer than normal in her home. Denies nausea, vomiting, chest pain, headache, urinary symptoms, or issues with her bowel movements. She has alopecia from recently startin chemotherapy. Daughter and son are at bedside and assist with the history. On Aug 2023, she was admitted to [facility] and underwent a bronchoscopy with endobronchial ultrasound guidance for evaluation of mediastinal lymphadenopathy and left lower lobe lung nodular density. Thick mucoid secretions were noted bilaterally within the tracheobronchial tree. There was a mass obstructing the entrance of the superior segment of the left lower lobe. 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 She was sent home with a course of Augmentin. The BAL revealed evidence of infection with Moraxella and some mold was also noted in the sample. She was then admitted to this hospital from 08/12/2023 to 08/15/2023 for acute respiratory failure secondary to postobstructive pneumonia with unknown endobronchial lesion. At that time she was seen by pulmonary and medical therapy was continued for her pneumonia. [facility] for treatment of this new neuroendocrine carcinoma with mediastinal involvement as well as retroperitoneal lymph node involvement (per PET scan performed 09/10/2023). She has been on supplemental oxygen since August in her outpatient notes. She is currently on carboplatin, etoposide, atezolizumab with prophylactic pegfilgrastim. Her last chemotherapy was given on 10/04/23. 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 Allergies Allergy/AdvReac Type Severity Reaction Status Date / Time adhesive Allergy Intermediate HIVES Verified 08/12/23 18:14 Home Medications Medication Instructions Recorded Confirmed Type albuterol sulfate 90 mcg/actuation 2 puff inhalation Q4 PRN Shortness 09/18/19 10/29/23 History aerosol inhaler Of Breath Or Wheezing aspirin 81 mg tablet,delayed 81 mg PO DAILY 08/12/23 10/29/23 History release benzonatate 100 mg capsule 100 mg PO TID PRN Cough 08/12/23 10/29/23 History conjugated estrogens 0.625 mg/gram 500 mg vaginal 2XWK 08/12/23 10/29/23 History vaginal cream (Premarin) fluticasone furoate 100 1 inh inhalation DAILY 08/12/23 10/29/23 History mcg/actuation blister powder for inhalation (Arnuity Ellipta) ipratropium 0.5 mg-albuterol 3 mg 3 ml inhalation Q6H PRN Shortness 08/12/23 10/29/23 History (2.5 mg base)/3 mL nebulization Of Breath Or Wheezing soln loratadine 10 mg tablet (Claritin) 10 mg PO DAILY 08/12/23 10/29/23 History umeclidinium 62.5 mcg-vilanterol 1 inh inhalation DAILY 08/12/23 10/29/23 History 25 mcg/actuation powdr for inhalation (Anoro Ellipta) acetaminophen 325 mg tablet (Pain 650 mg PO HS PRN Pain 10/29/23 10/29/23 History Reliever (acetaminophen)) allopurinol 100 mg tablet 100 mg PO DAILY 10/29/23 10/29/23 History docusate sodium 100 mg capsule 200 mg PO DAILY@1200 10/29/23 10/29/23 History famotidine 20 mg tablet 20 mg PO BID 10/29/23 10/29/23 History ferrous sulfate 325 mg (65 mg 325 mg PO DAILY 10/29/23 10/29/23 History iron) tablet (FeroSul) furosemide 40 mg tablet 40 mg PO DAILY 10/29/23 10/29/23 History gabapentin 300 mg capsule 900 mg PO HS 10/29/23 10/29/23 History hydrocodone-homatropine 5 mg-1.5 5 ml PO Q6H PRN Cough 10/29/23 10/29/23 History mg/5 mL oral syrup losartan 50 mg tablet 50 mg PO BID 10/29/23 10/29/23 History montelukast 10 mg tablet 10 mg PO DAILY 10/29/23 10/29/23 History omega 6-hxi-ybt-fish oil 1,200 mg 1 cap PO BID 10/29/23 10/29/23 History (144 mg-216 mg) capsule (Fish Oil) pantoprazole 40 mg tablet,delayed 40 mg PO DAILY 10/29/23 10/29/23 History release trazodone 50 mg tablet 50 mg PO HS PRN Insomnia 10/29/23 10/29/23 History umeclidinium 62.5 mcg-vilanterol 1 ea inhalation DAILY 10/29/23 10/29/23 History 25 mcg/actuation powdr for inhalation 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 related osteoporosis Nocturnal hypoxemia Small cell neuroendocrine carcinoma of lung History of COVID-19 2+ years ago > no further issues Chronic anemia chronic, baseline hgb 10-11 range per chart review Aortic stenosis Mild aortic stenosis per 12/29/21 echo nonrheumatic Carotid artery stenosis s/p right (5+ years ago)/left (2020) carotid endarterectomy Thyroid nodule Under surveillance Myocardial Infarction Several years ago ISELA (obstructive sleep apnea) Not currently using CPAP due to recall TIA (transient ischemic attack) 10 years ago, 03/11/21 > follows with [facility] Prediabetes Depression Non-Hodgkin lymphoma Chronic diastolic heart failure Nocturnal hypoxemia Lymphoma GERD (gastroesophageal reflux disease) COPD (chronic obstructive pulmonary disease) Stable Hypertension Hyperlipidemia Surgical History History of left-sided carotid endarterectomy History of esophagogastroduodenoscopy (EGD) History of colonoscopy History of left hip replacement H/O carotid endarterectomy Right History of hysterectomy Family History Other No family history of adverse response to anesthesia Stroke Social History Smoking Status: Former smoker Tobacco Type: Cigarettes Second Hand Exposure: No; Do You Dip or Chew Tobacco: No; Hx Alcohol Use: No Hx Substance Use: No Preferred Language: Sami Communication Ability: Effective [employer] Required: No Beliefs That Will Affect Care: None marital status: Unknown Current Living Situation: Alone Current Living Situation Comment: lives in a senior apartment building current occupational status: retired Feels Safe at Home: Yes Assistive Devices: Walker Physical Exam Physical Exam: CONSTITUTIONAL: WNWD, vitals as above, generally well-appearing, NAD EYES: pupils are round and equal bilaterally, normal conjunctivae, no scleral icterus ENT: external ear and nose normal, oropharynx clear, MMM NECK: trachea midline RESPIRATORY: +Wheezes, +rales, both greater in left lung in both posterior and anterior collier, normal respiratory effort, deep breaths trigger coughing spells CARDIOVASCULAR: tachy rate and reg rhythm, S1 and 2 heard without murmurs, gallops or rubs, no JVD, no peripheral edema GASTROINTESTINAL: soft, nontender, ND, no guarding MUSCULOSKELETAL: strength 5/5 throughout, head is normocephalic and atraumatic SKIN: warm and dry, no rashes NEUROLOGIC: CN 2-12 grossly intact, no sensory deficit, normal cognition, normal speech, no tremor PSYCHIATRIC: alert cooperative and oriented to person, place and time. Euthymic mood, makes good eye contact, language grossly intact, recent and remote memory grossly intact. Results & Data Results & Data Vital Signs (Past 12 Hours) Vital Signs Temp Pulse Pulse Resp BP BP Pulse Ox 10/29/23 08:09 100 H 12 172/80 H 96 10/29/23 06:59 106 H 12 172/80 H 100 10/29/23 06:34 107 H 10/29/23 06:25 36.6 C 112 H 29 H 172/80 H 90 10/29/23 06:14 90 10/29/23 06:14 O2 Del Method O2 Flow Rate 10/29/23 08:09 Room Air 10/29/23 06:59 Nasal Cannula 4 10/29/23 06:34 10/29/23 06:25 Nasal Cannula 4 10/29/23 06:14 Nasal Cannula 4 10/29/23 06:14 Nasal Cannula 4 Laboratory Results Short CBC 10/29/23 Range/Units 06:15 WBC 10.79 (4.8-10.8) K/ul Hgb 10.1 L (12.0-16.0) g/dl Hct 33.1 L (37.0-47.0) % Plt Count 627 H (130-400) K/uL BMP 10/29/23 06:15 Sodium 140 Potassium 3.8 Chloride 101 Carbon Dioxide 32 BUN 18 Creatinine 0.74 Glucose 142 H Calcium 9.4 Liver Function 10/29/23 Range/Units 06:15 Total Bilirubin 0.3 (0.2-1.0) mg/dl AST 18 (13-39) U/L ALT 10 (7-52) U/L Alkaline Phosphatase 64 (34-104) U/L Albumin 4.1 (3.4-5.0) gm/dl Diagnostic Findings Chest X-Ray 10/29/23 06:18 XR chest 1V portable HISTORY: 82 years-old Female Chest pain, nonspecific COMPARISON: 08/12/2023 TECHNIQUE: AP view of the chest FINDINGS: Cardiomediastinal and hilar silhouettes are unchanged. Emphysema with chronic interstitial coarsening. There is no pneumothorax, large pleural effusion or overt pulmonary edema. Mild bibasilar densities, left greater than right. Bones appear grossly intact. IMPRESSION: 1. Emphysema with chronic interstitial coarsening. 2. Mild bibasilar densities favor atelectasis. A mild nonspecific pneumonitis could appear similarly. ACT 112: Negative or not required by law. The above report was generated using voice recognition software. It may contain grammatical, syntax or spelling errors. Electronically signed by: William Carranza M.D. 10/29/2023 7:49 AM Chest CTA 10/29/23 06:38 CT angio chest PE protocol CT DOSE: 544.04 mGy.cm HISTORY: 82 years-old Female with PE, sob w/ cancer. Acute shortness of breath TECHNIQUE: Multiple CTA images of the chest were obtained after the intravenous administration of 112 ml Optiray. Coronal and sagittal MIPS were obtained from the axial data set and were submitted for review. All measurements were obtained according to NASCET criteria. A dose lowering technique was utilized adhering to the principles of ALARA. COMPARISON: Chest radiograph of same day, CT chest 08/12/2023 FINDINGS: CTA: Mild cardiomegaly with trace pericardial effusion. Extensive coronary artery and mitral annular calcifications. Atherosclerosis of the thoracic aorta without aneurysm. There is patency of the imaged great vessels. No pulmonary emboli identified, however evaluation of the segmental and subsegmental branches is limited secondary to respiratory motion artifact. CT CHEST: Hypodense thyroid nodules measure up to 1.4 cm on the left. There is progressive pathologic lymphadenopathy of the chest. Conglomerate lymphadenopathy centered within the precarinal tissues measures up to approximately 6.6 x 5.8 cm on image 138, previously measuring up to approximately 5.4 x 4.1 cm on the prior study. Additionally there is progressive subcarinal and right hilar lymphadenopathy. Masslike soft tissue prominence within the left hilar distribution measures up to 4.2 x 3.3 cm which appears stable to mildly increased in size from prior. Trace right and small left pleural effusions. Pulmonary emphysema bronchial wall thickening and mild pulmonary edema. Narrowing of the left lower lobe bronchus on image 110 series 4 again noted with left lower lobe consolidation, similar to prior. 8 mm irregular nodule left upper lobe on image 167 redemonstrated. 4 mm fissural nodule of the right middle lobe on image 105. No acute upper abdominal abnormality. Tiny hiatal hernia with nonspecific mid to distal esophageal wall thickening. Borderline enlarged paraesophageal lymph nodes measure up to 10 mm, progressed from prior. Unremarkable soft tissues. No acute fracture or destructive bone lesion. IMPRESSION: 1. Left hilar mass redemonstrated suggestive of primary bronchogenic carcinoma which appears to have increased in size compared to the study from 08/12/2023. 2. Progressive metastatic mediastinal and hilar lymphadenopathy. 3. The aforementioned mass encases the left hilar structures and narrows/opacifies the left lower lobe bronchus again resulting in left lower l obe postobstructive pneumonitis. 4. Cardiomegaly with mild pulmonary edema, small left and trace right pleural effusions. 5. No pulmonary emboli identified. ACT 112: Negative or not required by law. The above report was generated using voice recognition software. It may contain grammatical, syntax or spelling errors. Electronically signed by: William Carranza M.D. 10/29/2023 9:05 AM Code Status & VTE Plan VTE Prophylaxis Plan VTE Prophylaxis will be ordered: Yes (7) Anemia Anemia type: unspecified type Qualified Code(s): D64.9 - Anemia, unspecified
[2023-10-29] MEDS ORDERED: ACETAMINOPHEN 325 MG TAB PO PRN (09:31)
[2023-10-29] MEDS ORDERED: POLYETHYLENE (MIRALAX) 17 GM PACK PO PRN (09:31)
--- NOTE | 2023-10-29 09:58 | Electrocardiogram Report ---
Test Reason : Blood Pressure : / mmHG Vent. Rate : 108 BPM Atrial Rate : 108 BPM P-R Int : 166 ms QRS Dur : 100 ms QT Int : 372 ms P-R-T Axes : 087 048 080 degrees QTc Int : 498 ms Sinus tachycardia Minimal voltage criteria for LVH, may be normal variant Borderline ECG When compared with ECG of 12-AUG-2023 15:21, No significant change was found Confirmed by Pasquale Marcial ([id number]) on 10/29/2023 9:58:21 AM Referred By: Confirmed By:Pasquale Marcial
[2023-10-29] MEDS ORDERED: BENZONATATE 100 MG CAPSULE PO PRN (10:28)
[2023-10-29] MEDS ORDERED: ALBUTEROL HFA 8 GM INHALER INH PRN (10:28)
[2023-10-29] MEDS ORDERED: FLUTICASONE FUROATE 100MCG 14 PUFFS/INHALER INH SCH (10:30)
[2023-10-29] MEDS ORDERED: UMECLIDINIUM/VILANTEROL 62.5/25MCG 7 PUFFS/INHALER INH SCH (10:45)
[2023-10-29] MEDS: ASPIRIN 81 MG ECTAB PO SCH (11:24)
[2023-10-29] MEDS: LORATADINE 10 MG TAB PO SCH (11:25)
[2023-10-29] MEDS: LOSARTAN POTASSIUM 50 MG TAB PO SCH ×2 (11:25→20:15)
[2023-10-29] MEDS: PANTOprazole 40 MG TAB PO SCH (11:26)
[2023-10-29] MEDS: MONTELUKAST SODIUM 10 MG TABLET PO SCH (11:26)
[2023-10-29] MEDS: ENOXAPARIN INJ 40 MG/0.4 ML SYR SQ SCH (11:26)
[2023-10-29] MEDS: DOCUSATE SODIUM 100 MG CAP PO SCH (11:27)
[2023-10-29] MEDS: ALBUT/IPRATROP 3MG/0.5MG NEB 3 ML VIAL INH SCH ×2 (11:49→16:14)
[2023-10-29] MEDS ORDERED: methylPREDNISolone 40 MG in SYRINGE 0 ML IV SCH (14:00)
--- NOTE | 2023-10-29 15:48 | Pulmonary Consultation ---
Date of Consultation October 29, 2023 Assessment & Plan (1) Acute on chronic hypoxic respiratory failure: (2) COPD exacerbation: (3) Small cell neuroendocrine carcinoma of lung: Plan Impression: 82-year-old female with chronic hypoxemic respiratory failure and COPD as well as small cell lung cancer admitted with what sounds like an exacerbation of COPD. She is markedly better after steroids antibiotics and bronchodilators and feels back to baseline. Recommendations: 1. Acute exacerbation of COPD: Patient appears to be responding favorably. Discontinue parenteral steroids and placed on prednisone 20 mg a day. Given her response to nebulizers, will change DuoNebs to as needed and place her on Perforomist and budesonide nebs twice daily. Continue Incruse for long-acting anticholinergic. Anticipate 5 days of antibiotics and steroids. Azithromycin can be transitioned to oral at 250 mg a day. 2. Small cell lung cancer: Extensive stage based on PET scan. Do not see an indication for bronchoscopy at this point in time. Continued chemotherapy per medical oncology 3. Hypoxemia: Continue supplemental oxygen titrated to keep saturations at or above 88% 4. With a normal white blood cell count, negative procalcitonin, and lack of fever, I do not think additional antibiotics outside of azithromycin for acute exacerbation of COPD are warranted. The patient is responded very favorably and can likely dismiss from the hospital in the next 24 hours. Will see how she does but if she continues to respond favorably, she can likely dismiss in the a.m. and follow-up in the outpatient pulmonary setting with her established [facility] pulmonary group History of Present Illness Attending Physician: Sheryl Aleman DO History of Present Illness Asked by hospitalist to assist in evaluation management of this patient with known oxygen dependent COPD and small cell lung cancer currently undergoing chemotherapy. History is obtained from discussion with the patient and her daughter and reviewed the electronic medical record. Patient is an 82-year-old female who is followed by Dr. Jim Wong [place] [facility]. In August 2023 she was admitted to [facility] and had EBUS performed demonstrating small cell lung cancer. She was hospitalized at [facility] and treated for pneumonia shortly thereafter. She eventually established with [facility] oncology and has been treated with palliative chemotherapy based on PET scan. Her chemotherapeutic regimen is etoposide carboplatin with a checkpoint inhibitor. She received her first cycle and tolerated it somewhat poorly. Additional cycles of been put on hold until she is able to follow-up with her medical oncology provider due to poor tolerance of chemotherapeutics and pending review of restaging. Patient called EMS today due to significant shortness of breath. She is typically on 4 L fairly regularly but increases it to 5 L/min with physical ac tivity. She does cough at baseline but this has been getting worse over the last week with increasing wheezing and shortness of breath. She has not had fevers or chills. She was brought into the emergency room where she was found to be hypoxemic requiring 5 L/min. She was treated with steroids and nebulized bronchodilators as well as antibiotics and was admitted to the hospitalist service. When I assessed the patient in the emergency room she feels like she is back to normal. Her oxygen requirement is down to 4 L/min. She states her wheezing is markedly better with the respiratory treatments that she received. She is not having any fevers chills night sweats or other constitutional symptoms. She denies any chest pain. She not had any hemoptysis. Allergies Allergy/AdvReac Type Severity Reaction Status Date / Time adhesive Allergy Intermediate HIVES Verified 08/12/23 18:14 Home Medications Medication Instructions Recorded Confirmed Type albuterol sulfate 90 mcg/actuation 2 puff inhalation Q4 PRN Shortness 09/18/19 10/29/23 History aerosol inhaler Of Breath Or Wheezing aspirin 81 mg tablet,delayed 81 mg PO DAILY 08/12/23 10/29/23 History release benzonatate 100 mg capsule 100 mg PO TID PRN Cough 08/12/23 10/29/23 History conjugated estrogens 0.625 mg/gram 500 mg vaginal 2XWK 08/12/23 10/29/23 History vaginal cream (Premarin) fluticasone furoate 100 1 inh inhalation DAILY 08/12/23 10/29/23 History mcg/actuation blister powder for inhalation (Arnuity Ellipta) ipratropium 0.5 mg-albuterol 3 mg 3 ml inhalation Q6H PRN Shortness 08/12/23 10/29/23 History (2.5 mg base)/3 mL nebulization Of Breath Or Wheezing soln loratadine 10 mg tablet (Claritin) 10 mg PO DAILY 08/12/23 10/29/23 History umeclidinium 62.5 mcg-vilanterol 1 inh inhalation DAILY 08/12/23 10/29/23 History 25 mcg/actuation powdr for inhalation (Anoro Ellipta) acetaminophen 325 mg tablet (Pain 650 mg PO HS PRN Pain 10/29/23 10/29/23 History Reliever (acetaminophen)) allopurinol 100 mg tablet 100 mg PO DAILY 10/29/23 10/29/23 History docusate sodium 100 mg capsule 200 mg PO DAILY@1200 10/29/23 10/29/23 History famotidine 20 mg tablet 20 mg PO BID 10/29/23 10/29/23 History ferrous sulfate 325 mg (65 mg 325 mg PO DAILY 10/29/23 10/29/23 History iron) tablet (FeroSul) furosemide 40 mg tablet 40 mg PO DAILY 10/29/23 10/29/23 History gabapentin 300 mg capsule 900 mg PO HS 10/29/23 10/29/23 History hydrocodone-homatropine 5 mg-1.5 5 ml PO Q6H PRN Cough 10/29/23 10/29/23 History mg/5 mL oral syrup losartan 50 mg tablet 50 mg PO BID 10/29/23 10/29/23 History montelukast 10 mg tablet 10 mg PO DAILY 10/29/23 10/29/23 History omega 5-mmm-fyx-fish oil 1,200 mg 1 cap PO BID 10/29/23 10/29/23 History (144 mg-216 mg) capsule (Fish Oil) pantoprazole 40 mg tablet,delayed 40 mg PO DAILY 10/29/23 10/29/23 History release trazodone 50 mg tablet 50 mg PO HS PRN Insomnia 10/29/23 10/29/23 History umeclidinium 62.5 mcg-vilanterol 1 ea inhalation DAILY 10/29/23 10/29/23 History 25 mcg/actuation powdr for inhalation Patient History Medical History 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 related osteoporosis Nocturnal hypoxemia Small cell neuroendocrine carcinoma of lung History of COVID-19 2+ years ago > no further issues Chronic anemia chronic, baseline hgb 10-11 range per chart review Aortic stenosis Mild aortic stenosis per 12/29/21 echo nonrheumatic Carotid artery stenosis s/p right (5+ years ago)/left (2020) carotid endarterectomy Thyroid nodule Under surveillance Myocardial Infarction Several years ago ISELA (obstructive sleep apnea) Not currently using CPAP due to recall TIA (transient ischemic attack) 10 years ago, 03/11/21 > follows with [place] [facility] Prediabetes Depression Non-Hodgkin lymphoma Chronic diastolic heart failure Nocturnal hypoxemia Lymphoma GERD (gastroesophageal reflux disease) COPD (chronic obstructive pulmonary disease) Stable Hypertension Hyperlipidemia Surgical History History of left-sided carotid endarterectomy History of esophagogastroduodenoscopy (EGD) History of colonoscopy History of left hip replacement H/O carotid endarterectomy Right History of hysterectomy Family History Other No family history of adverse response to anesthesia Stroke Social History Smoking Status: Former smoker Tobacco Type: Cigarettes Second Hand Exposure: No; Do You Dip or Chew Tobacco: No; Tobacco Cessation Education Requested by Patient: No Hx Alcohol Use: No Hx Substance Use: No Preferred Language: Portuguese 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 No additions or deletions Physical Exam Constitutional: WD/WN, vitals as above Respiratory: Auscultation: + diminished lung sounds (LLL) and + rhonchi Cardiovascular: RRR, no murmur, no edema Gastrointestinal (Abdomen): normal bowel sounds, soft, nontender, no hepatosplenomegaly Skin: no rashes, warm and dry Neurologic: CN's II-XI intact bilaterally, moves all extremities and awake Psychiatric: Orientation: alert and oriented x 3 Results & Data Results & Data Vital Signs (Past 12 Hours) Vital Signs Temp Pulse Pulse Resp BP BP Pulse Ox 10/29/23 11:49 98 H 20 94 10/29/23 10:30 102 H 20 172/80 H 94 10/29/23 09:45 10/29/23 09:45 102 H 12 172/80 H 94 10/29/23 08:09 100 H 12 172/80 H 96 10/29/23 06:59 106 H 12 172/80 H 100 10/29/23 06:34 107 H 10/29/23 06:25 36.6 C 112 H 29 H 172/80 H 90 10/29/23 06:14 90 10/29/23 06:14 Pulse Ox O2 Del Method O2 Del Method O2 Flow Rate O2 Flow Rate 10/29/23 11:49 Nasal Cannula 4 10/29/23 10:30 Nasal Cannula 4 10/29/23 09:45 94 Nasal Cannula 4 10/29/23 09:45 Room Air 10/29/23 08:09 Room Air 10/29/23 06:59 Nasal Cannula 4 10/29/23 06:34 10/29/23 06:25 Nasal Cannula 4 10/29/23 06:14 Nasal Cannula 4 10/29/23 06:14 Nasal Cannula 4 Critical Care Results & Data Vital Signs (Past 12 Hours) Vital Signs Temp Pulse Pulse Resp BP BP Pulse Ox 10/29/23 11:49 98 H 20 94 10/29/23 10:30 102 H 20 172/80 H 94 10/29/23 09:45 10/29/23 09:45 102 H 12 172/80 H 94 10/29/23 08:09 100 H 12 172/80 H 96 10/29/23 06:59 106 H 12 172/80 H 100 10/29/23 06:34 107 H 10/29/23 06:25 36.6 C 112 H 29 H 172/80 H 90 10/29/23 06:14 90 10/29/23 06:14 Pulse Ox O2 Del Method O2 Del Method O2 Flow Rate O2 Flow Rate 10/29/23 11:49 Nasal Cannula 4 10/29/23 10:30 Nasal Cannula 4 10/29/23 09:45 94 Nasal Cannula 4 10/29/23 09:45 Room Air 10/29/23 08:09 Room Air 10/29/23 06:59 Nasal Cannula 4 10/29/23 06:34 10/29/23 06:25 Nasal Cannula 4 10/29/23 06:14 Nasal Cannula 4 10/29/23 06:14 Nasal Cannula 4 Lab & Micro Results (Past 24 Hours) RBC 3.93 M/uL (4.20-5.40) L 10/29/23 WBC 10.79 K/ul (4.8-10.8) 10/29/23 Hgb 10.1 g/dl (12.0-16.0) L 10/29/23 Hct 33.1 % (37.0-47.0) L 10/29/23 MCV 84.2 fL (80.0-100.0) 10/29/23 MCH 25.7 pg (25.0-34.0) 10/29/23 MCHC 30.5 g/dL (32.0-36.0) L 10/29/23 RDW Standard Deviation 55.8 fL (36.4-46.3) H 10/29/23 RDW Coefficient of Variation 18.2 % (11.5-14.5) H 10/29/23 Plt Count 627 K/uL (130-400) H 10/29/23 MPV 9.1 fL (9.4-12.4) L 10/29/23 Neutrophils (%) (Auto) 65.3 % 10/29/23 Lymphocytes (%) (Auto) 15.2 % 10/29/23 Monocytes # (Auto) 1.19 K/uL (0.11-0.59) H 10/29/23 Eosinophils # (Auto) 0.62 K/uL (0.00-0.50) H 10/29/23 Immature Granulocyte % (Auto) 0.4 % 10/29/23 Neutrophils # (Auto) 7.04 K/uL (1.40-6.50) H 10/29/23 Lymphocytes # (Auto) 1.64 K/uL (1.20-3.40) 10/29/23 Monocytes # (Auto) 1.19 K/uL (0.11-0.59) H 10/29/23 Eosinophils # (Auto) 0.62 K/uL (0.00-0.50) H 10/29/23 Basophils # (Auto) 0.26 K/uL (0.00-0.20) H 10/29/23 Immature Granulocyte # (Auto) 0.04 K/uL (0.01-0.20) 4 Na 140 mmol/L (136-145) 10/29/23 K 3.8 mmol/L (3.5-5.1) 10/29/23 Cl 101 mmol/L (98-107) 10/29/23 CO2 32 mmol/L (21-32) 10/29/23 Anion Gap 7 (3-11) 10/29/23 BUN 18 mg/dl (6-23) 10/29/23 Creatinine 0.74 mg/dl (0.6-1.2) 10/29/23 Estimated GFR ( Amer) 86.2 ml/min 10/29/23 Estimated GFR (Non-Af Amer) 74.4 ml/min 10/29/23 BUN/Creatinine Ratio 24.3 (10-20) H 10/29/23 Glu 142 mg/dl (70-99(Fasting)) H 10/29/23 Ca 9.4 mg/dl (8.6-10.3) 10/29/23 Total Bilirubin 0.3 mg/dl (0.2-1.0) 10/29/23 AST 18 U/L (13-39) 10/29/23 ALT 10 U/L (7-52) 10/29/23 Alkaline Phosphatase 64 U/L (34-104) 10/29/23 TP 6.7 gm/dl (6.0-8.3) 10/29/23 Albumin 4.1 gm/dl (3.4-5.0) 10/29/23 Globulin 2.6 gm/dl (2.5-4.0) 10/29/23 Albumin/Globulin Ratio 1.6 (0.9-2) 10/29/23 Calcium Level 9.4 mg/dl (8.6-10.3) 10/29/23 06:15 Prothromb Time International Ratio 1.0 (0.9-1.1) 10/29/23 06:1 5 Diagnostic Findings (Past 24 Hours) Chest X-Ray 10/29/23 06:18 XR chest 1V portable HISTORY: 82 years-old Female Chest pain, nonspecific COMPARISON: 08/12/2023 TECHNIQUE: AP view of the chest FINDINGS: Cardiomediastinal and hilar silhouettes are unchanged. Emphysema with chronic interstitial coarsening. There is no pneumothorax, large pleural effusion or overt pulmonary edema. Mild bibasilar densities, left greater than right. Bones appear grossly intact. IMPRESSION: 1. Emphysema with chronic interstitial coarsening. 2. Mild bibasilar densities favor atelectasis. A mild nonspecific pneumonitis could appear similarly. ACT 112: Negative or not required by law. The above report was generated using voice recognition software. It may contain grammatical, syntax or spelling errors. Electronically signed by: William Carranza M.D. 10/29/2023 7:49 AM Chest CTA 10/29/23 06:38 CT angio chest PE protocol CT DOSE: 544.04 mGy.cm HISTORY: 82 years-old Female with PE, sob w/ cancer. Acute shortness of breath TECHNIQUE: Multiple CTA images of the chest were obtained after the intravenous administration of 112 ml Optiray. Coronal and sagittal MIPS were obtained from the axial data set and were submitted for review. All measurements were obtained according to NASCET criteria. A dose lowering technique was utilized adhering to the principles of ALARA. COMPARISON: Chest radiograph of same day, CT chest 08/12/2023 FINDINGS: CTA: Mild cardiomegaly with trace pericardial effusion. Extensive coronary artery and mitral annular calcifications. Atherosclerosis of the thoracic aorta without aneurysm. There is patency of the imaged great vessels. No pulmonary emboli identified, however evaluation of the segmental and subsegmental branches is limited secondary to respiratory motion artifact. CT CHEST: Hypodense thyroid nodules measure up to 1.4 cm on the left. There is progressive pathologic lymphadenopathy of the chest. Conglomerate lymphadenopathy centered within the precarinal tissues measures up to approximately 6.6 x 5.8 cm on image 138, previously measuring up to approximately 5.4 x 4.1 cm on the prior study. Additionally there is progressive subcarinal and right hilar lymphadenopathy. Masslike soft tissue prominence within the left hilar distribution measures up to 4.2 x 3.3 cm which appears stable to mildly increased in size from prior. Trace right and small left pleural effusions. Pulmonary emphysema bronchial wall thickening and mild pulmonary edema. Narrowing of the left lower lobe bronchus on image 110 series 4 again noted with left lower lobe consolidation, similar to prior. 8 mm irregular nodule left upper lobe on image 167 redemonstrated. 4 mm fissural nodule of the right middle lobe on image 105. No acute upper abdominal abnormality. Tiny hiatal hernia with nonspecific mid to distal esophageal wall thickening. Borderline enlarged paraesophageal lymph nodes measure up to 10 mm, progressed from prior. Unremarkable soft tissues. No acute fracture or destructive bone lesion. IMPRESSION: 1. Left hilar mass redemonstrated suggestive of primary bronchogenic carcinoma which appears to have increased in size compared to the study from 08/12/2023. 2. Progressive metastatic mediastinal and hilar lymphadenopathy. 3. The aforementioned mass encases the left hilar structures and narrows/opacifies the left lower lobe bronchus again resulting in left lower lobe postobstructive pneumonitis. 4. Cardiomegaly with mild pulmonary edema, small left and trace right pleural effusions. 5. No pulmonary emboli identified. ACT 112: Negative or not required by law. The above report was generated using voice recognition software. It may contain grammatical, syntax or spelling errors. Electronically signed by: William Carranza M.D. 10/29/2023 9:05 AM I & O Totals 24 Hours 10/28/23 10/29/23 10/30/23 06:59 06:59 06:59 Intake Total 305 / 305 Balance 305 / 305 Cumulative 10/29/23 06:03 thru 10/29/23 13:59 Intake Total 305 Balance 305 RT Ventilator Mngmt (Last Documented) Ventilator Ordered Settings Respiratory Rate 20 10/29/23 11:49 Ventilator - PT Measurements Respiratory Rate 20 PG Care Time/CCT Total # of Minutes Spent Total Time Spent with Patient: Total time spent is greater than 50% in coordination of care (as documented) at patient's floor/unit and/or counseling patient: Coding Level of Care Code 79641 IN/OBS CONSULT LVL 4,60M Diagnoses Acute on chronic hypoxic respiratory failure J96.21 COPD exacerbation J44.1 Small cell neuroendocrine carcinoma of lung C7A.1
[2023-10-29] MEDS: ALBUT/IPRATROP 3MG/0.5MG NEB 3 ML VIAL INH PRN ×2 (16:09→21:33)
[2023-10-29] MEDS: FORMOTEROL 20 MCG/2 ML VIAL NEB SCH (19:12)
[2023-10-29] MEDS: BUDESONIDE 0.5 MG/2 ML VIAL (PULMICORT) NEB SCH (19:12)
[2023-10-29] MEDS: FAMOTIDINE 20 MG TAB PO SCH (20:14)
[2023-10-29] MEDS ORDERED: GABAPENTIN 300 MG CAP PO SCH (21:00)
[2023-10-29] MEDS ORDERED: traZODone HCL 50 MG TAB PO PRN (23:38)
[2023-10-30] MEDS ORDERED: cefTRIAXone SODIUM 1,000 MG in DEXTROSE 5 % MINI-B 50 ML IV SCH (06:00)
[2023-10-30] MEDS ORDERED: AZITHROMYCIN 500 MG in DEXTROSE 5% 250 ML IV SCH (06:00)
[2023-10-30 07:14] LABS: Hematocrit (blood only) 26.6 % (37.0-47.0); Hemoglobin 8.3 g/dl (12.0-16.0); Mean Corpuscular Hemoglobin 25.8 pg (25.0-34.0); Mean Corpuscular Hgb Conc 31.2 g/dL (32.0-36.0); Mean Corpuscular Volume 82.6 fL (80.0-100.0); Mean Platelet Volume 9.5 fL (9.4-12.4); Platelet Count 497 K/uL (130-400); RDW Coefficient of Variation 18.5 % (11.5-14.5); RDW Standard Deviation 55.6 fL (36.4-46.3); Red Blood Count 3.22 M/uL (4.20-5.40); White Blood Count 7.76 K/ul (4.8-10.8)
[2023-10-30] MEDS: FORMOTEROL 20 MCG/2 ML VIAL NEB SCH (07:21)
[2023-10-30] MEDS: BUDESONIDE 0.5 MG/2 ML VIAL (PULMICORT) NEB SCH (07:21)
[2023-10-30 07:30] LABS: BUN Creatinine Ratio 23.7 (10-20); Calcium 9.1 mg/dl (8.6-10.3); Creatinine Clr Calc Pharmacy 66.9 ml/min; Est GFR (African American) 97.5 ml/min; Est GFR (Non-African American) 84.2 ml/min; Potassium 3.7 mmol/L (3.5-5.1)
--- NOTE | 2023-10-30 08:28 | Pulmonology Progress Note ---
Date of Service October 30, 2023 Assessment & Plan (1) Acute on chronic hypoxic respiratory failure: (2) COPD exacerbation: (3) Small cell neuroendocrine carcinoma of lung: Plan Impression: 82-year-old female with chronic hypoxemic respiratory failure and COPD as well as small cell lung cancer admitted with what sounds like an exacerbation of COPD. She is markedly better after steroids antibiotics and bronchodilators and feels back to baseline. Recommendations: 1. Acute exacerbation of COPD: Patient appears back to her baseline at this point. She is without wheezing on exam. She is down to 4L NC which is better than her home O2 requirement. She has been ambulating her room without issue. She can complete her course of Azithromycin and Prednisone in the outpatient setting. Can be transitioned back to her home inhalers at the time of discharge. Consideration for continuation of nebulized Budesonide/Perforomist in the outpatient setting, but doing very well in less than 24 hours of treatment and will likely do well on her home Rx. Will defer this to her primary pulmonary group with whom she can follow-up in the next few weeks. 2. Small cell lung cancer: Extensive stage based on PET scan. Do not see an indication for bronchoscopy at this point in time. Continued chemotherapy per medical oncology 3. Hypoxemia: Continue supplemental oxygen titrated to keep saturations at or above 88% Thank you for allowing us to participate in the care of this pleasant patient. Patient is stable for discharge to home at this time. Pulmonary medicine will sign off. Admission and Anticipated Discharge Date Admission Date: October 29, 2023 Supervising Physician Co-Signing Physician Notes Patient seen and examined. EMR reviewed. Discussed with patient daughter at bedside. She is significantly improved. Recommend she go home on nebulized therapies. She can follow-up with her outpatient residential carpenter at [facility]. She will need continued follow-up with her medical oncology provider Pulmonary will sign off at this point in time. Feel free to contact us with additional questions or concerns Subjective Patient was seen and evaluated at bedside this morning. She reports feeling much better at this time. She is much less short of breath. She is currently utilizing 4 L nasal cannula and saturating in the high 90s. She uses 5 L nasal cannula at home. Overall, she reports significant improvement and is excited to be discharged home. Review of Systems Review of Systems: Unchanged from admission. Physical Exam Physical Exam: VITAL SIGNS - Vital signs and nursing notes were reviewed. GENERAL - 82-year-old female appearing her stated age who is in no acute distress. Communicates well with provider and answers questions appropriately. LUNGS - Chest wall evaluation demonstrates normal chest wall A:P diameter. Auscultation reveals some mild coarseness at the bases. No wheezes appreciated. CARDIAC - RRR with S1/S2. No murmur, rubs, or gallops appreciated. PSYCH - A&Ox3 and cooperates fully with examiner. Pt is very pleasant and inte racts well with examiner. Results & Data Results & Data Vital Signs (Past 12 Hours) Vital Signs Temp Pulse Pulse Resp BP Pulse Ox O2 Del Method 10/30/23 08:05 36.6 C 90 20 127/63 96 Nasal Cannula 10/30/23 07:28 91 H 10/30/23 07:23 94 H 18 92 Nasal Cannula 10/30/23 04:00 36.9 C 87 18 131/62 98 Nasal Cannula 10/29/23 23:55 36.6 C 103 H 18 128/63 95 Nasal Cannula 10/29/23 23:47 101 H 10/29/23 22:03 Nasal Cannula 10/29/23 21:33 101 H 20 96 Nasal Cannula O2 Flow Rate 10/30/23 08:05 4 10/30/23 07:28 10/30/23 07:23 4 10/30/23 04:00 4 10/29/23 23:55 4 10/29/23 23:47 10/29/23 22:03 4 10/29/23 21:33 3 PG Care Time/CCT Total # of Minutes Spent Total Time Spent with Patient: Total time spent is greater than 50% in coordination of care (as documented) at patient's floor/unit and/or counseling patient: Coding Level of Care Code 23753 SUB INP/OBS CARE 2/35MIN Diagnoses Acute on chronic hypoxic respiratory failure J96.21 COPD exacerbation J44.1 Small cell neuroendocrine carcinoma of lung C7A.1
[2023-10-30] MEDS ORDERED: UMECLIDINIUM BROMIDE 62.5MCG/BLISTER 7 PUFFS/INHALER INH SCH (09:00)
[2023-10-30] MEDS ORDERED: allopurinoL 100 MG TAB PO SCH (09:00)
[2023-10-30] MEDS ORDERED: AZITHROMYCIN 250 MG TAB PO SCH (09:00)
[2023-10-30] MEDS ORDERED: FUROSEMIDE 40 MG TAB PO SCH (09:00)
[2023-10-30] MEDS ORDERED: predniSONE 20 MG TAB PO SCH (09:00)
[2023-10-30] MEDS: MONTELUKAST SODIUM 10 MG TABLET PO SCH (09:07)
[2023-10-30] MEDS: FAMOTIDINE 20 MG TAB PO SCH (09:07)
[2023-10-30] MEDS: ASPIRIN 81 MG ECTAB PO SCH (09:07)
[2023-10-30] MEDS: LORATADINE 10 MG TAB PO SCH (09:07)
[2023-10-30] MEDS: PANTOprazole 40 MG TAB PO SCH (09:07)
[2023-10-30] MEDS: LOSARTAN POTASSIUM 50 MG TAB PO SCH (09:07)
[2023-10-30] MEDS: DOCUSATE SODIUM 100 MG CAP PO SCH (11:02)
[2023-10-30] MEDS: ENOXAPARIN INJ 40 MG/0.4 ML SYR SQ SCH (11:02)
--- NOTE | 2023-10-30 11:26 | Electrocardiogram Report ---
Test Reason : Blood Pressure : / mmHG Vent. Rate : 094 BPM Atrial Rate : 094 BPM P-R Int : 184 ms QRS Dur : 108 ms QT Int : 396 ms P-R-T Axes : 088 060 085 degrees QTc Int : 495 ms Poor data quality, interpretation may be adversely affected Normal sinus rhythm Left ventricular hypertrophy with repolarization abnormality Prolonged QT Abnormal ECG When compared with ECG of 29-OCT-2023 06:19, T wave inversion now evident in Lateral leads Confirmed by Pasquale Marcial ([id number]) on 10/30/2023 11:25:58 AM Referred By: REFERRED SELF Confirmed By:Pasquale Marcial
--- NOTE | 2023-10-30 12:56 | Discharge Summary ---
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 She has required an increase amount of supplemental oxygen from 2 L/min to 4 L/min in the last 2 weeks. She has a chronic cough that has gotten worse in the past week, followed by periods of poor recovery and increased SOB. Cough is productive of yellow sputum. Denies fevers or chills. Also reports that her home thermostat isn't working and it is warmer than normal in her home. Denies nausea, vomiting, chest pain, headache, urinary symptoms, or issues with her bowel movements. She has alopecia from recently startin chemotherapy. Daughter and son are at bedside and assist with the history. On Aug 2023, she was admitted to [facility] and underwent a bronchoscopy with endobronchial ultrasound guidance for evaluation of mediastinal lymphadenopathy and left lower lobe lung nodular density. Thick mucoid secretions were noted bilaterally within the tracheobronchial tree. There was a mass obstructing the entrance of the superior segment of the left lower lobe. 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 She was sent home with a course of Augmentin. The BAL revealed evidence of infection with Moraxella and some mold was also noted in the sample. She was then admitted to this hospital from 08/12/2023 to 08/15/2023 for acute respiratory failure secondary to postobstructive pneumonia with unknown endobronchial lesion. At that time she was seen by pulmonary and medical therapy was continued for her pneumonia. She followed up with [facility]ology for treatment of this new neuroendocrine carcinoma with mediastinal involvement as well as retroperitoneal lymph node involvement (per PET scan performed 09/10/2023). She has been on supplemental oxygen since August in her outpatient notes. She is currently on carboplatin, etoposide, atezolizumab with prophylactic pegfilgrastim. Her last chemotherapy was given on 10/04/23. 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 Admission Exam Per Admitting Provider CONSTITUTIONAL: WNWD, vitals as above, generally well-appearing, NAD EYES: pupils are round and equal bilaterally, normal conjunctivae, no scleral icterus ENT: external ear and nose normal, oropharynx clear, MMM NECK: trachea midline RESPIRATORY: +Wheezes, +rales, both greater in left lung in both posterior and anterior collier, normal respiratory effort, deep breaths trigger coughing spells CARDIOVASCULAR: tachy rate and reg rhythm, S1 and 2 heard without murmurs, gallops or rubs, no JVD, no peripheral edema GASTROINTESTINAL: soft, nontender, ND, no guarding MUSCULOSKELETAL: strength 5/5 throughout, head is normocephalic and atraumatic SKIN: warm and dry, no rashes NEUROLOGIC: CN 2-12 grossly intact, no sensory deficit, normal cognition, normal speech, no tremor PSYCHIATRIC: alert cooperative and oriented to person, place and time. Euthymic mood, makes good eye contact, language grossly intact, recent and remote memory grossly intact. 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 Acute on chronic hypoxic respiratory failure COPD exacerbation Small cell neuroendocrine carcinoma of lung Acute hypoxic respiratory failure 2/2 COPD exacerbation + possible post obstructive pneumonia noted on CT chest imaging. Presented with significant wheezing Afebrile, WBC wnl, procalcitonin was negative. Respiratory biofire was negative. Received solumedrol, scheduled duonebs in the ED with marked improvement in symptoms. By the time she was seen by pulmonology on the day of admission, she was back to baseline respiratory status of NC 4-5L. Pulmonology recommended at that time transitioning to po prednisone 20mg daily and continuing with Azithromycin for 5 day course. Recommended continuing with BID breathing treatments with pulmicort and perforomist and oxygen supplementation with goal saturation>88%. Advised that no antibiotics other than the azithromycin was recommended due to pt being afebrile, wbc normal and procalcitonin being negative. For her progressing lung cancer, pulmonology advised that no bronchoscopy was indicated at this time and that she should continue with chemotherapy per recs from her oncologist. Discharge was recommended by pulmonology the day after admission as pt was back to baseline. They recommended close outpatient pulmonology followup with her outpatient technical services representative. On discharge, pt was advised to continue with home inhalers, and was prescribed pulmicort and perforomist nebules for home use per pulmonology. She was discharged with 3 more days of po prednisone 20mg and azithromycin 250mg after receiving 2 days of treatment while hospitalized (5 day total course per pulm recs). Close PCP and pulmonology followup after discharge. Per Case management pt and family open to Palliative discussion/resources- pt follows with [facility]. PCP follow up. Elevated troponin Flat on trend and only mildly elevated. Patient denied chest pain or other ACS type symptoms. EKG did not show active ischemia. Lkely related to demand in setting of acute illness with known h/o valvulopathy. No further workup at this time. ISELA (obstructive sleep apnea) history of this but noncompliant with CPAP after recall on her mask PCP follow up Anemia chronic, at her baseline. Anemia was present prior to starting chemotherapy with a component of iron deficiency PCP follow up Chronic diastolic heart failure Compensated Cont home meds No changes were made to her home meds that she was on prior to arrival, continue with pcp follow up. Discharge Exam General: Alert, oriented. No acute distress Skin: No noted rashes or bruises Psych: Appropriate mood and affect Neuro: No gross deficits HEENT: NC/AT, currently without hair on her head CV: RRR Resp: Breath sounds coarse bilaterally, no increased effort of breathing. No wheezing appreciated, moving air Abdomen: Soft, nontender, nondistended Extremities: No edema in lower extremities bilaterally. Updated Medication List Medication Instructions Recorded Confirmed Type albuterol sulfate 90 mcg/actuation 2 puff inhalation Q4 PRN Shortness 09/18/19 10/29/23 History aerosol inhaler Of Breath Or Wheezing aspirin 81 mg tablet,delayed 81 mg PO DAILY 08/12/23 10/29/23 History release benzonatate 100 mg capsule 100 mg PO TID PRN Cough 08/12/23 10/29/23 History conjugated estrogens 0.625 mg/gram 500 mg vaginal 2XWK 08/12/23 10/29/23 History vaginal cream (Premarin) fluticasone furoate 100 1 inh inhalation DAILY 08/12/23 10/29/23 History mcg/actuation blister powder for inhalation (Arnuity Ellipta) ipratropium 0.5 mg-albuterol 3 mg 3 ml inhalation Q6H PRN Shortness 08/12/23 10/29/23 History (2.5 mg base)/3 mL nebulization Of Breath Or Wheezing soln loratadine 10 mg tablet (Claritin) 10 mg PO DAILY 08/12/23 10/29/23 History umeclidinium 62.5 mcg-vilanterol 1 inh inhalation DAILY 08/12/23 10/29/23 History 25 mcg/actuation powdr for inhalation (Anoro Ellipta) acetaminophen 325 mg tablet (Pain 650 mg PO HS PRN Pain 10/29/23 10/29/23 History Reliever (acetaminophen)) allopurinol 100 mg tablet 100 mg PO DAILY 10/29/23 10/29/23 History docusate sodium 100 mg capsule 200 mg PO DAILY@1200 10/29/23 10/29/23 History famotidine 20 mg tablet 20 mg PO BID 10/29/23 10/29/23 History ferrous sulfate 325 mg (65 mg 325 mg PO DAILY 10/29/23 10/29/23 History iron) tablet (FeroSul) furosemide 40 mg tablet 40 mg PO DAILY 10/29/23 10/29/23 History gabapentin 300 mg capsule 900 mg PO HS 10/29/23 10/29/23 History hydrocodone-homatropine 5 mg-1.5 5 ml PO Q6H PRN Cough 10/29/23 10/29/23 History mg/5 mL oral syrup losartan 50 mg tablet 50 mg PO BID 10/29/23 10/29/23 History montelukast 10 mg tablet 10 mg PO DAILY 10/29/23 10/29/23 History omega 3-kmo-fiv-fish oil 1,200 mg 1 cap PO BID 10/29/23 10/29/23 History (144 mg-216 mg) capsule (Fish Oil) pantoprazole 40 mg tablet,delayed 40 mg PO DAILY 10/29/23 10/29/23 History release trazodone 50 mg tablet 50 mg PO HS PRN Insomnia 10/29/23 10/29/23 History umeclidinium 62.5 mcg-vilanterol 1 ea inhalation DAILY 10/29/23 10/29/23 History 25 mcg/actuation powdr for inhalation azithromycin 250 mg tablet 250 mg PO QAM #3 tabs 10/30/23 Rx budesonide 0.5 mg/2 mL suspension 0.5 mg (2 mL) NEB BIDR #60 mL 10/30/23 Rx for nebulization formoterol fumarate 20 mcg/2 mL 20 mcg (2 mL) NEB BIDR #60 mL 10/30/23 Rx solution for nebulization (Perforomist) prednisone 20 mg tablet 20 mg PO DAILY #3 tabs 10/30/23 Rx Hospital Stay Data Consultations 10/29/23 08:50 ED Decision to Admit Stat 10/29/23 09:31 Consult Pulmonology Routine Diagnostic Imagining Performed 10/29/23 06:38 CT angio chest PE protocol Stat Chest X-Ray 10/29/23 06:18 XR chest 1V portable HISTORY: 82 years-old Female Chest pain, nonspecific COMPARISON: 08/12/2023 TECHNIQUE: AP view of the chest FINDINGS: Cardiomediastinal and hilar silhouettes are unchanged. Emphysema with chronic interstitial coarsening. There is no pneumothorax, large pleural effusion or overt pulmonary edema. Mild bibasilar densities, left greater than right. Bones appear grossly intact. IMPRESSION: 1. Emphysema with chronic interstitial coarsening. 2. Mild bibasilar densities favor atelectasis. A mild nonspecific pneumonitis could appear similarly. ACT 112: Negative or not required by law. The above report was generated using voice recognition software. It may contain grammatical, syntax or spelling errors. Electronically signed by: William Carranza M.D. 10/29/2023 7:49 AM Chest CTA 10/29/23 06:38 CT angio chest PE protocol CT DOSE: 544.04 mGy.cm HISTORY: 82 years-old Female with PE, sob w/ cancer. Acute shortness of breath TECHNIQUE: Multiple CTA images of the chest were obtained after the intravenous administration of 112 ml Optiray. Coronal and sagittal MIPS were obtained from the axial data set and were submitted for review. All measurements were obtained according to NASCET criteria. A dose lowering technique was utilized adhering to the principles of ALARA. COMPARISON: Chest radiograph of same day, CT chest 08/12/2023 FINDINGS: CTA: Mild cardiomegaly with trace pericardial effusion. Extensive coronary artery and mitral annular calcifications. Atherosclerosis of the thoracic aorta without aneurysm. There is patency of the imaged great vessels. No pulmonary emboli identified, however evaluation of the segmental and subsegmental branches is limited secondary to respiratory motion artifact. CT CHEST: Hypodense thyroid nodules measure up to 1.4 cm on the left. There is progressive pathologic lymphadenopathy of the chest. Conglomerate lymphadenopathy centered within the precarinal tissues measures up to approximately 6.6 x 5.8 cm on image 138, previously measuring up to approximately 5.4 x 4.1 cm on the prior study. Additionally there is progressive subcarinal and right hilar lymphadenopathy. Masslike soft tissue prominence within the left hilar distribution measures up to 4.2 x 3.3 cm which appears stable to mildly increased in size from prior. Trace right and small left pleural effusions. Pulmonary emphysema bronchial wall thickening and mild pulmonary edema. Narrowing of the left lower lobe bronchus on image 110 series 4 again noted with left lower lobe consolidation, similar to prior. 8 mm irregular nodule left upper lobe on image 167 redemonstrated. 4 mm fissural nodule of the right middle lobe on image 105. No acute upper abdominal abnormality. Tiny hiatal hernia with nonspecific mid to distal esophageal wall thickening. Borderline enlarged paraesophageal lymph nodes measure up to 10 mm, progressed from prior. Unremarkable soft tissues. No acute fracture or destructive bone lesion. IMPRESSION: 1. Left hilar mass redemonstrated suggestive of primary bronchogenic carcinoma which appears to have increased in size compared to the study from 08/12/2023. 2. Progressive metastatic mediastinal and hilar lymphadenopathy. 3. The aforementioned mass encases the left hilar structures and narrows/opacifies the left lower lobe bronchus again resulting in left lower lobe postobstructive pneumonitis. 4. Cardiomegaly with mild pulmonary edema, small left and trace right pleural effusions. 5. No pulmonary emboli identified. ACT 112: Negative or not required by law. The above report was generated using voice recognition software. It may contain grammatical, syntax or spelling errors. Electronically signed by: William Carranza M.D. 10/29/2023 9:05 AM Discharge Instructions Given to Patient (Per Discharging Provider) Ms. Linares, You were admitted with an acute exacerbation of your COPD in the setting of your known lung cancer. You were seen by the pulmonologists here who recommended discharge home today as you are back to baseline. They recommended treatment for 3 more days with prednisone 20mg and azithromycin 250mg. They also recommended discharge home with the nebulized breathing treatments you were using here. Those have been sent to your pharmacy for you. You indicated you have a nebulizer machine at home. Pulmonology also recommended that there was no indication for bronchoscopy at this point in time and that you should continue with your chemotherapy as directed by your oncologist. They advise that you continue with your home oxygen with the goal of keeping your oxygen saturation at or above 88%. And finally, pulmonology here recommended following up with your technical services representative after discharge. Please keep close follow up with your primary care provider as well after discharge. Please do not hesitate to come back to the emergency room if your symptoms worsen or return. It was a pleasure taking care of you while you were here. Total Time Total Time Spent Total Time Spent (In Minutes): > 30 minutes
== END 2023-10-30 14:51 | disposition home or self-care (01) | DRG 190 ==
LOC: ED 06:09 → EDINP 09:21 → SUATTDRO 09:21 → 2N 09:30
DX: I25.2 Old myocardial infarction; J96.21 Acute and chronic respiratory failure with hypoxia; J18.9 Pneumonia, unspecified organism; J44.1 Chronic obstructive pulmonary disease with (acute) exacerbation; Z79.02 Long term (current) use of antithrombotics/antiplatelets; C77.9 Secondary and unspecified malignant neoplasm of lymph node, unspecified; G47.33 Obstructive sleep apnea (adult) (pediatric); Z66 Do not resuscitate; C7B.8 Other secondary neuroendocrine tumors; E78.5 Hyperlipidemia, unspecified; Z86.16 Personal history of COVID-19; I11.0 Hypertensive heart disease with heart failure; C7A.090 Malignant carcinoid tumor of the bronchus and lung; C85.90 Non-Hodgkin lymphoma, unspecified, unspecified site; R79.89 Other specified abnormal findings of blood chemistry; I50.32 Chronic diastolic (congestive) heart failure; Z79.82 Long term (current) use of aspirin; D64.9 Anemia, unspecified; I24.89 Other forms of acute ischemic heart disease; Z87.891 Personal history of nicotine dependence

== ENCOUNTER 2023-12-07 09:58 | Inpatient (IN) ==
--- NOTE | 2023-12-07 10:28 | Emergency Department Note ---
Impression & Plan Dyspnea, CHF (congestive heart failure), URI (upper respiratory infection), Lung cancer, Hypomagnesemia, Anemia ED Provider Note ED Provider Note NAME: LORIE FLETCHER AGE:82 SEX: Female : 1940 ARRIVES VIA: EMS INFORMANT: Patient ED PROVIDER(s): Chaya Vanessa DO CHIEF COMPLAINT: Shortness of breath HPI: This is an 82-year-old female who presents emerged part via EMS due to abrupt onset shortness of breath at 2 AM. Patient states she was not asleep, and felt acutely short of breath. She tried to wait at home but ultimately called the ambulance that she was concerned her symptoms persisted. Patient states she does have a history of COPD and typically is on oxygen at 5 L/min. She states she does use MDI/nebulizers and did try those overnight as well. She denies any recent fevers, chills, or illness. She states she did have a cough productive of clear sputum overnight, no hemoptysis. No recent change in sputum or cough. She denies any coming chest pain, abdominal pain, dizziness, nausea or vomiting. She denies any recent change in medications to her knowledge but admits she does not know all of her medications. She states she does have a history of heart problems but cannot recall what. PAST MEDICAL HISTORY:See Below PAST SURGICAL HISTORY:See Below FAMILY HISTORY:See Below SOCIAL HISTORY:See Below HOME MEDICATIONS:See Below ALLERGIES:See Below VITALS:See Below PHYSICAL EXAMINATION: GENERAL: alert, well appearing, well nourished, no distress, non-toxic EYE EXAM: normal conjunctiva, PERRL and EOM's grossly intact OROPHARYNX: no exudate, no erythema, lips, buccal mucosa, and tongue normal and mucous membranes are dry NECK: supple, no nuchal rigidity, no adenopathy, non-tender LUNGS: Clear to auscultation. Normal chest wall mechanics, no r/r, scattered expiratory wheeze bilaterally but worse on the left HEART: no murmurs, S1 normal and S2 normal ABDOMEN: abdomen soft, non-tender, normo-active bowel sounds, no masses, no rebound or guarding. BACK: Back is symmetrical on inspection and there is no deformity, no midline tenderness, no CVA tenderness. SKIN: no rashes, petechiae, orbruising UPPER EXTREMITIES: upper extremities are grossly normal. FROM, nml pulses b/l. LOWER EXTREMITIES: No pitting edema. FROM, nml pulses b/l. NEURO EXAM: Normal sensorium, cranial nerves II-XII grossly intact, normal speech, no facial droop,nogross weakness of arms, no gross weakness of legs. Gross sensation intact. No ataxia. Vital Signs: reviewed and remarkable Differential Diagnosis: pneumonia, bronchitis, COPD/Asthma exacerbation, pneumothorax, pulmonary embolism, congestive heart failure, acute coronary syndrome, as well as others were considered MEDICAL DECISION MAKING: This is an 82-year-old female with complicated past medical history including lung cancer, CHF, and COPD who presents due to increased shortness of breath. Patient is already on 5 L/min of home oxygen. Patient with wheezing here on exam and was given DuoNeb treatment. She was afebrile and other vital signs stable. Reported feeling improved here following the DuoNeb. Labs drawn and sent, IV established, EKG and chest x-ray performed bedside interpreted by me and patient monitored on telemetry. Patient given a dose of IV Lasix here. Patient noted to have a URI additionally which I suspect given her fragile immune status and significant history pushed her towards pulmonary edema. It is possible her chemotherapeutic agents could be cardiotoxic additionally. Patient started on IV magnesium for repletion given her hypomagnesemia. Patient given a second DuoNeb treatment. She was updated on all results as was family at bedside. They verbalized understanding and were in agreement with plan for additional inpatient monitoring. Case discussed with hospitalist team for additional management. Consultation(s): 1506: Discussed with Judith Stevens hospitalist team, for additional evaluation and management. ER Treatment Provided: See below Diagnostics Interpreted By Me: -ECG: Sinus tachycardia 106, normal axis, normal intervals, no acute ST/T wave changes, aberrant baseline noted -Cardiac Monitoring: An order was placed for continuous cardiac monitoring. The monitor shows a rate of 101 with sinus tachycardia rhythm. -Laboratory studies: As stated above and show below. -Imaging studies: X-ray Chest: A single view study of the chest was reviewed and was negative for cardiomegaly, focal infiltrate, effusion, or wide mediastinum. b/l pulm edema noted, worse compared to prior. 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 related osteoporosis Nocturnal hypoxemia Small cell neuroendocrine carcinoma of lung History of COVID-19 2+ years ago > no further issues Chronic anemia chronic, baseline hgb 10-11 range per chart review Aortic stenosis Mild aortic stenosis per 12/29/21 echo nonrheumatic Carotid artery stenosis s/p right (5+ years ago)/left (2020) carotid endarterectomy Thyroid nodule Under surveillance Myocardial Infarction Several years ago ISELA (obstructive sleep apnea) Not currently using CPAP due to recall TIA (transient ischemic attack) 10 years ago, 03/11/21 > follows with [facility] Prediabetes Depression Non-Hodgkin lymphoma Chronic diastolic heart failure Nocturnal hypoxemia Lymphoma GERD (gastroesophageal reflux disease) COPD (chronic obstructive pulmonary disease) Stable Hypertension Hyperlipidemia Surgical History History of left-sided carotid endarterectomy History of esophagogastroduodenoscopy (EGD) History of colonoscopy History of left hip replacement H/O carotid endarterectomy Right History of hysterectomy Family History Other No family history of adverse response to anesthesia Stroke Social History Smoking Status: Former smoker Tobacco Type: Cigarettes Second Hand Exposure: No; Do You Dip or Chew Tobacco: No; Hx Alcohol Use: No Hx Substance Use: No Preferred Language: Zambian Communication Ability: Effective Bingo Manager Required: No Beliefs That Will Affect Care: None marital status: Unknown Current Living Situation: Alone Current Living Situation Comment: [place] current occupational status: retired Feels Safe at Home: Yes Assistive Devices: Oxygen - Continuous, Walker and Wheelchair Allergies Allergies Allergy/AdvReac Type Severity Reaction Status Date / Time adhesive Allergy Intermediate HIVES Verified 12/07/23 13:52 Home Meds Home Medications Medication Instructions Recorded Confirmed albuterol sulfate 90 mcg/actuation 2 puff inhalation Q4 PRN Shortness 09/18/19 12/07/23 aerosol inhaler Of Breath Or Wheezing aspirin 81 mg tablet,delayed 81 mg PO DAILY 08/12/23 12/07/23 release benzonatate 100 mg capsule 100 mg PO TID PRN Cough 08/12/23 12/07/23 conjugated estrogens 0.625 mg/gram 500 mg vaginal 2XWK PRN dryness 08/12/23 12/07/23 vaginal cream (Premarin) fluticasone furoate 100 1 inh inhalation DAILY PRN 08/12/23 12/07/23 mcg/actuation blister powder for Breathing Problems inhalation (Arnuity Ellipta) ipratropium 0.5 mg-albuterol 3 mg 3 ml inhalation Q6H PRN Shortness 08/12/23 12/07/23 (2.5 mg base)/3 mL nebulization Of Breath Or Wheezing soln loratadine 10 mg tablet (Claritin) See Rx Instructions .Route .COMPLEX 08/12/23 12/07/23 umeclidinium 62.5 mcg-vilanterol 1 inh inhalation DAILY PRN 08/12/23 12/07/23 25 mcg/actuation powdr for Breathing Problems inhalation (Anoro Ellipta) acetaminophen 325 mg tablet (Pain 650 mg PO HS PRN Pain 10/29/23 12/07/23 Reliever (acetaminophen)) allopurinol 100 mg tablet 100 mg PO DAILY 10/29/23 12/07/23 docusate sodium 100 mg capsule 200 mg PO DAILY@1200 PRN 10/29/23 12/07/23 Constipation famotidine 20 mg tablet 20 mg PO BID 10/29/23 12/07/23 ferrous sulfate 325 mg (65 mg 325 mg PO DAILY 10/29/23 12/07/23 iron) tablet (FeroSul) furosemide 40 mg tablet 40 mg PO DAILY 10/29/23 12/07/23 gabapentin 300 mg capsule 900 mg PO HS 10/29/23 12/07/23 losartan 50 mg tablet 50 mg PO BID 10/29/23 12/07/23 montelukast 10 mg tablet 10 mg PO DAILY 10/29/23 12/07/23 omega 8-lrh-xan-fish oil 1,200 mg 1 cap PO BID 10/29/23 12/07/23 (144 mg-216 mg) capsule (Fish Oil) pantoprazole 40 mg tablet,delayed 40 mg PO DAILY 10/29/23 12/07/23 release trazodone 50 mg tablet 25 mg PO HS PRN Insomnia 10/29/23 12/07/23 azithromycin 250 mg tablet See Rx Instructions .Route .COMPLEX 12/07/23 12/07/23 souzall-mlbjnupel-nzgw 333 mg-133 1 tab PO DAILY 12/07/23 12/07/23 mg-8.3 mg tablet cranberry extract 500 mg capsule 500 mg PO BID 12/07/23 12/07/23 (Cranberry Concentrate) guaifenesin 100 mg/5 mL oral liquid 200 mg PO HS 12/07/23 12/07/23 urltfsfi-vwrmkes-axrn-lutein tablet 1 tab PO DAILY 12/07/23 12/07/23 prochlorperazine maleate 10 mg 10 mg PO Q6H PRN Nausea And 12/07/23 12/07/23 tablet Vomiting ramelteon 8 mg tablet 8 mg PO HS 12/07/23 12/07/23 Previous Rx's Medication Instructions Recorded budesonide 0.5 mg/2 mL suspension 0.5 mg (2 mL) NEB BIDR #60 mL 10/30/23 for nebulization formoterol fumarate 20 mcg/2 mL 20 mcg (2 mL) NEB BIDR #60 mL 10/30/23 solution for nebulization (Perforomist) Results & Data (ED) Vital Signs Vital Signs - 24 hr 12/07/23 09:51 12/07/23 09:53 12/07/23 09:53 Temperature Temperature Source Pulse Rate Pulse Rate [Finger] Pulse Rate from SpO2 Sensor Respiratory Rate 16 Respiratory Effort / Characteristics Respiratory Depth Blood Pressure Blood Pressure [Right Arm] Blood Pressure Mean Blood Pressure Mean [Right Arm] Pulse Oximetry Oxygen Delivery Method Nasal Cannula Oxygen Flow Rate 5 Sepsis Recent Fever Within 48 Hours No Sepsis New/Unexplained Change in Mental Status N/A Sepsis Action Taken by Nursing No Action Required 12/07/23 10:19 12/07/23 10:19 12/07/23 10:19 Temperature 36.6 C Temperature Source Oral Pulse Rate 92 H Pulse Rate [Finger] Pulse Rate from SpO2 Sensor Respiratory Rate 16 12 Respiratory Effort / Characteristics Respiratory Depth Blood Pressure 143/93 H Blood Pressure [Right Arm] Blood Pressure Mean 109 Blood Pressure Mean [Right Arm] Pulse Oximetry 97 Oxygen Delivery Method Nasal Cannula Room Air Oxygen Flow Rate 5 Sepsis Recent Fever Within 48 Hours No Sepsis New/Unexplained Change in Mental Status N/A Sepsis Action Taken by Nursing No Action Required 12/07/23 11:26 12/07/23 12:20 12/07/23 14:28 Temperature Temperature Source Pulse Rate 103 H 105 H Pulse Rate [Finger] 96 H Pulse Rate from SpO2 Sensor 99 H Respiratory Rate 25 H 18 Respiratory Effort / Characteristics Non-Labored Respiratory Depth Normal Blood Pressure 158/71 H Blood Pressure [Right Arm] 181/98 H Blood Pressure Mean 100 Blood Pressure Mean [Right Arm] 125 Pulse Oximetry 94 96 Oxygen Delivery Method Room Air Oxygen Flow Rate Sepsis Recent Fever Within 48 Hours Sepsis New/Unexplained Change in Mental Status Sepsis Action Taken by Nursing Laboratory Data 12/07/23 10:33 12/07/23 10:33 Lab Results 12/07/23 12/07/23 Range/Units 10:33 12:34 WBC 10.34 (4.8-10.8) K/ul RBC 3.73 L (4.20-5.40) M/uL Hgb 10.0 L (12.0-16.0) g/dl Hct 31.5 L (37.0-47.0) % MCV 84.5 (80.0-100.0) fL MCH 26.8 (25.0-34.0) pg MCHC 31.7 L (32.0-36.0) g/dL RDW Std Deviation 53.9 H (36.4-46.3) fL RDW Coeff of Ad 17.7 H (11.5-14.5) % Plt Count 406 H (130-400) K/uL MPV 8.9 L (9.4-12.4) fL Immature Gran % (Auto) 1.4 % Neut % (Auto) 77.3 % Lymph % (Auto) 7.3 % [place] % (Auto) 10.4 % Eos % (Auto) 2.6 % Baso % (Auto) 1.0 % Neut # (Auto) 8.00 H (1.40-6.50) K/uL Lymph # (Auto) 0.75 L (1.20-3.40) K/uL [place] # (Auto) 1.08 H (0.11-0.59) K/uL Eos # (Auto) 0.27 (0.00-0.50) K/uL Baso # (Auto) 0.10 (0.00-0.20) K/uL Immature Gran # (Auto) 0.14 (0.01-0.20) K/uL D-Dimer Cancelled 4240 H* Sodium 140 (136-145) mmol/L Potassium 3.7 (3.5-5.1) mmol/L Chloride 100 (98-107) mmol/L Carbon Dioxide 31 (21-32) mmol/L Anion Gap 9 (3-11) BUN 12 (6-23) mg/dl Creatinine 0.69 (0.6-1.2) mg/dl Est Cr Clr Drug Dosing 52.4 ml/min Est GFR ( Amer) 92.6 ml/min Est GFR (Non-Af Amer) 79.9 ml/min BUN/Creatinine Ratio 17.4 (10-20) Glucose 115 H (70-99(Fasting)) mg/dl Calcium 8.5 L (8.6-10.3) mg/dl Magnesium 1.5 L (1.7-2.4) mg/dl Total Bilirubin 0.4 (0.2-1.0) mg/dl AST 15 (13-39) U/L ALT 9 (7-52) U/L Alkaline Phosphatase 83 (34-104) U/L Troponin I High Sens 17.6 H (0-14) pg/ml B-Natriuretic Peptide 711 H (0-100) pg/ml Total Protein 6.4 (6.0-8.3) gm/dl Albumin 3.3 L (3.4-5.0) gm/dl Globulin 3.1 (2.5-4.0) gm/dl Albumin/Globulin Ratio 1.1 (0.9-2) Lipase 9 L (11-82) U/L TSH 2.888 (0.300-4.500) uIu/ml Adenovirus (PCR) Not Detected (NotDetected) B. pertussis DNA (PCR) Not Detected (NotDetected) B.parapertussis DNA PCR Not Detected (NotDetected) C. pneumoniae DNA (PCR) Not Detected (NotDetected) Coronavirus OC43 (PCR) DETECTED A (NotDetected) Coronavirus HKU1 (PCR) Not Detected (NotDetected) Coronavirus 229E (PCR) Not Detected (NotDetected) SARS-CoV-2 (PCR) Not Detected (NotDetected) Coronavirus NL63 (PCR) Not Detected (NotDetected) Human Metapneumovir PCR Not Detected (NotDetected) Influenza Type A (PCR) Not Detected (NotDetected) Influenza Type B (PCR) Not Detected (NotDetected) M. pneumoniae (PCR) Not Detected (NotDetected) Parainfluenza 1 (PCR) Not Detected (NotDetected) Parainfluenza 2 (PCR) Not Detected (NotDetected) Parainfluenza 3 (PCR) Not Detected (NotDetected) Parainfluenza 4 (PCR) Not Detected (NotDetected) RSV (PCR) Not Detected (NotDetected) Entero/Rhino (PCR) Not Detected (NotDetected) Administered Medications Discontinued Medications Albuterol (Albut/Ipratrop 3mg/0.5mg Neb 3 Ml Vial) 3 ml NEB NOW STA; Protocol Stop: 12/07/23 10:29 Last Admin: 12/07/23 11:00 Dose: 3 ml Documented By: AL Albuterol (Albut/Ipratrop 3mg/0.5mg Neb 3 Ml Vial) 3 ml NEB NOW STA; Protocol Stop: 12/07/23 14:46 Last Admin: 12/07/23 16:46 Dose: 3 ml Documented By: KOFI Furosemide (Furosemide 40 Mg/4 Ml Vial) 40 mg IV ONE ONE Stop: 12/07/23 12:22 Last Admin: 12/07/23 12:32 Dose: 40 mg Documented By: DONNA Magnesium Sulfate/Dextrose (Magnesium Sulfate / D5w) 1 gm in 100 mls @ 100 mls/hr IV NOW STA Stop: 12/07/23 12:15 Last Infusion: 12/07/23 12:36 Dose: Infused Documented By: Admin: 12/07/23 11:36 Dose: 100 mls/hr Documented By: HARRISON Ioversol (Optiray 320 125ml) 118 ml IV ONCE ONE Stop: 12/07/23 14:12 Last Admin: 12/07/23 14:13 Dose: 118 ml Documented By: WILFRID Imaging Data Radiologist's Impression: Chest X-Ray 12/07/23 10:25 XR chest 1V portable CLINICAL HISTORY: sob TECHNIQUE: Single frontal radiograph of the chest was obtained. Comparison: Comparison is made to chest radiograph 10/29/2023 FINDINGS: No lines and tubes are seen. Calcified aortic knob is seen. There is prominence and cephalization of the vasculature with Hunter B lines seen. No evidence of pleural effusion or pneumothorax. IMPRESSION: Moderate pulmonary edema. ACT 112: Negative or not required by law. Electronically signed by: Bro Flores M.D. 12/07/2023 10:46 AM Chest CTA 12/07/23 13:39 CT angio chest PE protocol CT DOSE: 492.93 mGy.cm HISTORY: 82 years-old Female with PE. Acute shortness of breath TECHNIQUE: Multiple CTA images of the chest were obtained after the intravenous administration of 118 ml Optiray. Coronal and sagittal MIPS were obtained from the axial data set and were submitted for review. All measurements were obtained according to NASCET criteria. A dose lowering technique was utilized adhering to the principles of ALARA. COMPARISON: Chest radiograph of same day, CTA chest 10/29/2023 FINDINGS: CTA: Mild cardiomegaly with trace pericardial effusion. Extensive coronary artery and mitral annular calcifications. Atherosclerosis of the thoracic aorta without aneurysm. There is patency of the imaged great vessels. High-grade stenosis in the imaged portions of the celiac trunk proximally. No pulmonary emboli identified, however evaluation of the segmental and subsegmental branches is limited secondary to respiratory motion artifact. CT CHEST: Hypodense thyroid nodules measure up to 1.4 cm on the left. Persistent pathologic lymphadenopathy of the chest again noted. Conglomerate lymphadenopathy centered within the precarinal tissues measures up to approximately 6.5 x 5.4 cm, previously 6.6 x 5.8 cm on image 139. Subcarinal and right hilar lymphadenopathy also appears generally stable. Masslike soft tissue prominence within the left hilar distribution measures up to 4.4 x 3.6 cm, previously 4.2 x 3.3 cm. Small pleural effusions. Pulmonary emphysema with bronchial wall thickening and mild pulmonary edema. Narrowing of the left lower lobe bronchus is again seen with progressive left lower lobe consolidation. 9 mm spiculated and irregular nodule of the left upper lobe on image 163 previously measured 8 mm. 4 mm fissural nodule of the right middle lobe on image 107. New from prior is diffuse reticulonodular opacities with centrilobular micronodules throughout all the lobes bilaterally. No acute upper abdominal abnormality. Tiny hiatal hernia with nonspecific mid to distal esophageal wall thickening. Borderline enlarged paraesophageal and retrocrural lymph nodes are again noted measuring up to 10 mm. Unremarkable soft tissues. No acute fracture or destructive bone lesion. IMPRESSION: 1. Generally unchanged size of the left hilar mass suggestive of primary bronchogenic carcinoma with metastatic adenopathy which appears stable compared to the 10/29/2023 exam. 2. The aforementioned mass /lymphadenopathy encases the left hilar structures and narrows/opacifies the left lower lobe bronchus resulting in progressive left lower lobe consolidation/postobstructive pneumonitis and volume loss. 3. Interval development of diffuse reticulonodular opacities with centrilobular micronodules. Findings are favored to be infectious or inflammatory, however carcinomatosis could appear similarly. Follow-up is needed. 4. Cardiomegaly with mild pulmonary edema and small pleural effusions. 5. Spiculated irregular 9 mm nodule of the left upper lobe. 6. No pulmonary emboli identified. ACT 112: Negative or not required by law. The above report was generated using voice recognition software. It may contain grammatical, syntax or spelling errors. Electronically signed by: William Carranza M.D. 12/07/2023 2:34 PM Discharge Plan Visit Data Chief Complaint: Shortness of Breath/Dyspnea Stated Complaint: SOB, LIGHT HEADED ED Provider: Chaya Vanessa Discharge Problem: Dyspnea, CHF (congestive heart failure), URI (upper respiratory infection), Lung cancer, Hypomagnesemia, Anemia Patient Disposition: Admitted As Inpatient Discharge Instructions Interventions: ED Discharge Assessment Last Done: 12/07/23 16:02
--- NOTE | 2023-12-07 10:48 | XRay Report ---
XR chest 1V portable CLINICAL HISTORY: sob TECHNIQUE: Single frontal radiograph of the chest was obtained. Comparison: Comparison is made to chest radiograph 10/29/2023 FINDINGS: No lines and tubes are seen. Calcified aortic knob is seen. There is prominence and cephalization of the vasculature with Hunter B lines seen. No evidence of pleural effusion or pneumothorax. IMPRESSION: Moderate pulmonary edema. ACT 112: Negative or not required by law. Electronically signed by: Bro Flores M.D. 12/07/2023 10:46 AM
[2023-12-07] MEDS: ALBUT/IPRATROP 3MG/0.5MG NEB 3 ML VIAL NEB STA ×2 (11:00→16:46)
[2023-12-07 11:02] LABS: Eosinophils # (auto) 0.27 K/uL (0.00-0.50); Eosinophils % (auto) 2.6 %; Hematocrit (blood only) 31.5 % (37.0-47.0); Immature Granulocytes # (auto) 0.14 K/uL (0.01-0.20); Immature Granulocytes % (auto) 1.4 %; Lymphocytes # (auto) 0.75 K/uL (1.20-3.40); Lymphocytes % (auto) 7.3 %; Mean Corpuscular Hemoglobin 26.8 pg (25.0-34.0); Mean Corpuscular Hgb Conc 31.7 g/dL (32.0-36.0); Mean Corpuscular Volume 84.5 fL (80.0-100.0); Mean Platelet Volume 8.9 fL (9.4-12.4); Monocytes # (auto) 1.08 K/uL (0.11-0.59); Monocytes % (auto) 10.4 %; Neutrophils % (auto) 77.3 %; Platelet Count 406 K/uL (130-400); RDW Coefficient of Variation 17.7 % (11.5-14.5); RDW Standard Deviation 53.9 fL (36.4-46.3); Red Blood Count 3.73 M/uL (4.20-5.40); White Blood Count 10.34 K/ul (4.8-10.8)
[2023-12-07 11:07] LABS: Albumin Globulin Ratio 1.1 (0.9-2); Albumin Level 3.3 gm/dl (3.4-5.0); BUN Creatinine Ratio 17.4 (10-20); Bilirubin,Total 0.4 mg/dl (0.2-1.0); Calcium 8.5 mg/dl (8.6-10.3); Creatinine Clr Calc Pharmacy 52.4 ml/min; Est GFR (African American) 92.6 ml/min; Est GFR (Non-African American) 79.9 ml/min; Globulin 3.1 gm/dl (2.5-4.0); Magnesium 1.5 mg/dl (1.7-2.4); Potassium 3.7 mmol/L (3.5-5.1); Total Protein 6.4 gm/dl (6.0-8.3)
[2023-12-07 11:14] LABS: Troponin I High Sensitivity 17.6 pg/ml (0-14)
[2023-12-07 11:23] LABS: Thyroid Stimulating Hormone 2.888 uIu/ml (0.300-4.500)
[2023-12-07] MEDS: MAGNESIUM SULFATE / D5W 1 GM/100 ML BAG IV STA (11:36)
[2023-12-07 11:44] LABS: Adenovirus PCR Not Detected (NotDetected); Bordetella parapertussis PCR Not Detected (NotDetected); Bordetella pertussis PCR Not Detected (NotDetected); Chlamydia pneumoniae PCR Not Detected (NotDetected); Coronavirus 229E PCR Not Detected (NotDetected); Coronavirus CoV-2 (COVID19)PCR Not Detected (NotDetected); Coronavirus HKU1 PCR Not Detected (NotDetected); Coronavirus NL63 PCR Not Detected (NotDetected); Coronavirus OC43PCR DETECTED (NotDetected); Human Metapneumovirus PCR Not Detected (NotDetected); Influenza A PCR Not Detected (NotDetected); Influenza B PCR Not Detected (NotDetected); Mycoplasma pneumoniae PCR Not Detected (NotDetected); Parainfluenza Virus 1 PCR Not Detected (NotDetected); Parainfluenza Virus 2 PCR Not Detected (NotDetected); Parainfluenza Virus 3 PCR Not Detected (NotDetected); Parainfluenza Virus 4 PCR Not Detected (NotDetected); Respiratory Syncytial VirusPCR Not Detected (NotDetected); Rhinovirus/Enterovirus PCR Not Detected (NotDetected)
[2023-12-07] MEDS: FUROSEMIDE 40 MG/4 ML VIAL IV ONE (12:32)
[2023-12-07 13:30] LABS: D Dimer 4240 ug/L FEU (0-500)
[2023-12-07] MEDS: OPTIRAY 320 125ml IV ONE (14:13)
--- NOTE | 2023-12-07 14:37 | CT Scan Report ---
CT angio chest PE protocol CT DOSE: 492.93 mGy.cm HISTORY: 82 years-old Female with PE. Acute shortness of breath TECHNIQUE: Multiple CTA images of the chest were obtained after the intravenous administration of 118 ml Optiray. Coronal and sagittal MIPS were obtained from the axial data set and were submitted for review. All measurements were obtained according to NASCET criteria. A dose lowering technique was u tilized adhering to the principles of ALARA. COMPARISON: Chest radiograph of same day, CTA chest 10/29/2023 FINDINGS: CTA: Mild cardiomegaly with trace pericardial effusion. Extensive coronary artery and mitral annular calci fications. Atherosclerosis of the thoracic aorta without aneurysm. There is patency of the imaged gre at vessels. High-grade stenosis in the imaged portions of the celiac trunk proximally. No pulmonary e mboli identified, however evaluation of the segmental and subsegmental branches is limited secondary to respiratory motion artifact. CT CHEST: Hypodense thyroid nodules measure up to 1.4 cm on the left. Persistent pathologic lymphadenopathy of the chest again noted. Conglomerate lymphadenopathy centered within the precarinal tissues measures u p to approximately 6.5 x 5.4 cm, previously 6.6 x 5.8 cm on image 139. Subcarinal and right hilar lym phadenopathy also appears generally stable. Masslike soft tissue prominence within the left hilar dis tribution measures up to 4.4 x 3.6 cm, previously 4.2 x 3.3 cm. Small pleural effusions. Pulmonary emphysema with bronchial wall thickening and mild pulmonary edema. Narrowing of the left lower lobe bronchus is again seen with progressive left lower lobe consolidati on. 9 mm spiculated and irregular nodule of the left upper lobe on image 163 previously measured 8 mm . 4 mm fissural nodule of the right middle lobe on image 107. New from prior is diffuse reticulonodul ar opacities with centrilobular micronodules throughout all the lobes bilaterally. No acute upper abdominal abnormality. Tiny hiatal hernia with nonspecific mid to distal esophageal wa ll thickening. Borderline enlarged paraesophageal and retrocrural lymph nodes are again noted measuri ng up to 10 mm. Unremarkable soft tissues. No acute fracture or destructive bone lesion. IMPRESSION: 1. Generally unchanged size of the left hilar mass suggestive of primary bronchogenic carcinoma with metastatic adenopathy which appears stable compared to the 10/29/2023 exam. 2. The aforementioned mass /lymphadenopathy encases the left hilar structures and narrows/opacifies t he left lower lobe bronchus resulting in progressive left lower lobe consolidation/postobstructive pn eumonitis and volume loss. 3. Interval development of diffuse reticulonodular opacities with centrilobular micronodules. Finding s are favored to be infectious or inflammatory, however carcinomatosis could appear similarly. Follow -up is needed. 4. Cardiomegaly with mild pulmonary edema and small pleural effusions. 5. Spiculated irregular 9 mm nodule of the left upper lobe. 6. No pulmonary emboli identified. ACT 112: Negative or not required by law. The above report was generated using voice recognition software. It may contain grammatical, syntax o r spelling errors. Electronically signed by: William Carranza M.D. 12/07/2023 2:34 PM
--- NOTE | 2023-12-07 15:11 | History & Physical Report ---
Date of Service December 07, 2023 Assessment & Plan (1) Acute on chronic hypoxic respiratory failure: (2) Small cell neuroendocrine carcinoma of lung: (3) Coronavirus infection: (4) ISELA (obstructive sleep apnea): (5) COPD (chronic obstructive pulmonary disease): Plan: - [facility] chest, with cardiomegaly and trace pericardial effusion, extensive coronary artery calcifications, off atherosclerosis of thoracic aorta without aneurysm, high-grade stenosis in the celiac trunk proximally, no pulmonary emboli. -Left hilar mass known, primary bronchogenic carcinoma with metastatic adenopathy appears stable compared to 10/29/2023 exam. This lung mass encases the left hilar structure and narrow/opacifies left lower lobe bronchus resulting in progressive left lower lobe consolidation/postobstructive pneumonitis and volume loss -BioFire pos for coronavirus, common cold - continue supportive care with Mucinex, incentive spirometry, flutter, Tessalon Perles -BNP elevated at 711, concern for possible worsening heart function with chemotherapy which started in October involving carboplatin, etoposide -- will obtain echo with small pleural effusions and mild pulm edema noted -CXR reviewed personally showing pulmonary vascular congestion - S/p lasix 40 mg IV and diuresing well, eval over next few hrs and determine if needs additional IV. Takes lasix 40 mg PO at home daily (missed today) - Supportive O2, wears 5 L at baseline -Home regimen includes Perforomist nebulizers twice daily, annuity Ellipta inhaler, continue -Follows with pulmonology as an outpatient closely, can consider pulm consultation but at this time we will treat with diuresis due to CHF - Supposed to wear CPAP HS, previously noncompliant (6) Aortic stenosis: Plan: -Possibly valvular CHF component echo as above -S/p lasix 40 mg IV - strict I/Os, fluid restriction -Chronic, stable DVT prophylaxis: teds, scds Lines: 2 PIV FEN/GI: Allow regular diet CODE: DNR/DNI -Discussion held with the patient regarding hospice as per HPI, patient plans to stop all chemotherapy at this time, she is looking to pursue quality of life but at this time wants to proceed with treatment, therapy and imaging studies throughout this hospital stay. Consider case management to assist with hospice set up prior to discharge pending her wishes. Dispo: From home, likely to remain in the hospital x 2 days A total of 77 minutes were spent with greater than 50% of that time face to face with the patient, personally reviewing all current laboratories, imaging studies, past medication reconciliation, outpatient chart review, and discussion with specialists to collaborate care for the patient with attending. Please see attending documentation for corrections and/or additions. History of Present Illness Chief Complaint: Shortness of breath Primary Care Provider: Rhys Humphrey MD This is an 82 yo F with PMHx of non-Hodgkin's lymphoma and SCLC with mets, follicular lymphoma, neuroendocrine carcinoma, grade 1/grade 2 involving chest and abdomen and has been under surveillance of this since 2012, Currently on chemotherapy. Today she presents to ER for shortness of breath. Pt on chronic supplemental oxygen 5 L/min. This has increased since her most recent previous hospital stay per oncology. Patient reports that her family, daughter present at bedside, are very helpful and keep precise records of her care. Daughter reports that she initially had a right-sided chest pain on Sunday, 4 days ago, and that it moved down into her chest. She notes no drops in O2 sats that she checks this every morning, regularly is between 91 to 93%. Patient has been using nebulizers and lumbar inhalers as directed. She has a portable nebulizer which she also has been using. Denies any recent sick contacts but has been feeling worse for about 1 day. States that she called her daughter around 3 AM stating not feeling well, had increased shortness of breath, denies fevers, sweats or chills. At 6 AM no improvement after nebulizer treatments she was transported to the hospital via EMS. She does follow with outpatient pulmonology, Marielena Wong but has not seen them since August 2023 after having bronchoscopy. Her last chemotherapy was given about 2 weeks ago on 11/21/23, next cycle is due 12/16. Chemo regimen includes carboplatin, etoposide, atezolizumab with prophylactic pegfilgrastim. Patient Dr. Lopes with oncology. She notes that she has had 2 hospitalizations after each chemotherapy session, and she states that she is not interested in pursuing further chemotherapy. She has spoken with her daughters about quality of life, and has already started making transitions with [facility] bed that sits her up at home. A cousin of hers works through hospice agency and is well versed in what they would be able to provide for her at home. We had discussion regarding case management and the ability to set her up with hospice prior to going home from this hospital stay, we will continue conversation throughout this admission. Previous Hospitalizations: Aug 2023 at [facility] and underwent a bronchoscopy with endobronchial ultrasound guidance for evaluation of mediastinal lymphadenopathy and left lower lobe lung nodular density. Thick mucoid secretions were noted bilaterally within the tracheobronchial tree. There was a mass obstructing the entrance of the superior segment of the left lower lobe. 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 She was sent home with a course of Augmentin. The BAL revealed evidence of infection with Moraxella and some mold was also noted in the sample. [facility] 08/12/2023 to 08/15/2023 for acute respiratory failure secondary to postobstructive pneumonia with unknown endobronchial lesion. At that time she was seen by pulmonary and medical therapy was continued for her pneumonia. Allergies Allergy/AdvReac Type Severity Reaction Status Date / Time adhesive Allergy Intermediate HIVES Verified 12/07/23 13:52 Home Medications Medication Instructions Recorded Confirmed Type albuterol sulfate 90 mcg/actuation 2 puff inhalation Q4 PRN Shortness 09/18/19 12/07/23 History aerosol inhaler Of Breath Or Wheezing aspirin 81 mg tablet,delayed 81 mg PO DAILY 08/12/23 12/07/23 History release benzonatate 100 mg capsule 100 mg PO TID PRN Cough 08/12/23 12/07/23 History conjugated estrogens 0.625 mg/gram 500 mg vaginal 2XWK PRN dryness 08/12/23 12/07/23 History vaginal cream (Premarin) fluticasone furoate 100 1 inh inhalation DAILY PRN 08/12/23 12/07/23 History mcg/actuation blister powder for Breathing Problems inhalation (Arnuity Ellipta) ipratropium 0.5 mg-albuterol 3 mg 3 ml inhalation Q6H PRN Shortness 08/12/23 12/07/23 History (2.5 mg base)/3 mL nebulization Of Breath Or Wheezing soln loratadine 10 mg tablet (Claritin) See Rx Instructions .Route .COMPLEX 08/12/23 12/07/23 History umeclidinium 62.5 mcg-vilanterol 1 inh inhalation DAILY PRN 08/12/23 12/07/23 History 25 mcg/actuation powdr for Breathing Problems inhalation (Anoro Ellipta) acetaminophen 325 mg tablet (Pain 650 mg PO HS PRN Pain 10/29/23 12/07/23 History Reliever (acetaminophen)) allopurinol 100 mg tablet 100 mg PO DAILY 10/29/23 12/07/23 History docusate sodium 100 mg capsule 200 mg PO DAILY@1200 PRN 10/29/23 12/07/23 History Constipation famotidine 20 mg tablet 20 mg PO BID 10/29/23 12/07/23 History ferrous sulfate 325 mg (65 mg 325 mg PO DAILY 10/29/23 12/07/23 History iron) tablet (FeroSul) furosemide 40 mg tablet 40 mg PO DAILY 10/29/23 12/07/23 History gabapentin 300 mg capsule 900 mg PO HS 10/29/23 12/07/23 History losartan 50 mg tablet 50 mg PO BID 10/29/23 12/07/23 History montelukast 10 mg tablet 10 mg PO DAILY 10/29/23 12/07/23 History omega 6-aia-rhy-fish oil 1,200 mg 1 cap PO BID 10/29/23 12/07/23 History (144 mg-216 mg) capsule (Fish Oil) pantoprazole 40 mg tablet,delayed 40 mg PO DAILY 10/29/23 12/07/23 History release trazodone 50 mg tablet 25 mg PO HS PRN Insomnia 10/29/23 12/07/23 History budesonide 0.5 mg/2 mL suspension 0.5 mg (2 mL) NEB BIDR #60 mL 10/30/23 12/07/23 Rx for nebulization formoterol fumarate 20 mcg/2 mL 20 mcg (2 mL) NEB BIDR #60 mL 10/30/23 12/07/23 Rx solution for nebulization (Perforomist) azithromycin 250 mg tablet See Rx Instructions .Route .COMPLEX 12/07/23 12/07/23 History hzhyvdb-jxfehgoxz-cdia 333 mg-133 1 tab PO DAILY 12/07/23 12/07/23 History mg-8.3 mg tablet cranberry extract 500 mg capsule 500 mg PO BID 12/07/23 12/07/23 History (Cranberry Concentrate) guaifenesin 100 mg/5 mL oral liquid 200 mg PO HS 12/07/23 12/07/23 History xuqtkufk-jagzrra-vviv-lutein tablet 1 tab PO DAILY 12/07/23 12/07/23 History prochlorperazine maleate 10 mg 10 mg PO Q6H PRN Nausea And 12/07/23 12/07/23 History tablet Vomiting ramelteon 8 mg tablet 8 mg PO HS 12/07/23 12/07/23 History 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 related osteoporosis Nocturnal hypoxemia Small cell neuroendocrine carcinoma of lung History of COVID-19 2+ years ago > no further issues Chronic anemia chronic, baseline hgb 10-11 range per chart review Aortic stenosis Mild aortic stenosis per 12/29/21 echo nonrheumatic Carotid artery stenosis s/p right (5+ years ago)/left (2020) carotid endarterectomy Thyroid nodule Under surveillance Myocardial Infarction Several years ago ISELA (obstructive sleep apnea) Not currently using CPAP due to recall TIA (transient ischemic attack) 10 years ago, 03/11/21 > follows with [place] [facility] Prediabetes Depression Non-Hodgkin lymphoma Chronic diastolic heart failure Nocturnal hypoxemia Lymphoma GERD (gastroesophageal reflux disease) COPD (chronic obstructive pulmonary disease) Stable Hypertension Hyperlipidemia Surgical History History of left-sided carotid endarterectomy History of esophagogastroduodenoscopy (EGD) History of colonoscopy History of left hip replacement H/O carotid endarterectomy Right History of hysterectomy Family History Other No family history of adverse response to anesthesia Stroke Social History Smoking Status: Former smoker Tobacco Type: Cigarettes Second Hand Exposure: No; Do You Dip or Chew Tobacco: No; Hx Alcohol Use: No Hx Substance Use: No Preferred Language: Estonian Communication Ability: Effective Corrosion Control Fitter Required: No Beliefs That Will Affect Care: None marital status: Unknown Current Living Situation: Alone Current Living Situation Comment: [place] current occupational status: retired Feels Safe at Home: Yes Assistive Devices: Oxygen - Continuous, Walker and Wheelchair Review of Systems Review of Systems: Constitutional: No fever, sweats, + chills, increased fatigue Eyes: No diplopia, no worsening or blurred vision ENT: normal hearing, no trouble swallowing Respiratory: + Shortness of breath on exertion, chronic minimally productive cough, no orthopnea Cardiovascular: No chest pain, tightness or palpitations Abdomen: No pain, nausea, vomiting, diarrhea or constipation Musculoskeletal: No joint pain, calf pain, swelling Neurologic: No weakness, numbness/tingling, or balance problems Psychiatric: No anxiety or depression Skin: No rash or itch Physical Exam Physical Exam: General: awake, alert, no apparent distress, + chronically ill white female, alopecia Head: Normocephalic, atraumatic ENT: PERRL, EOMI, no pharyngeal exudate, mucous membranes moist Chest: Coarse breath sounds throughout, significant rale in right side, on 5L via NC, + minimally productive cough with clear sputum, no hemoptysis Cardiac: Regular rhythm, heart rate in the 90s at bedside, + loud GERARD, no JVD, normal peripheral pulses, good capillary refill Abdominal: NABS x 4 quadrants, soft, nondistended, nontender to palpation, no rebound or guarding Extremities: Normal inspection, + trace peripheral edema, no erythema, calfs nontender to palpation Psych: Normal mood and affect Neuro: AAO x 3, strength intact bilaterally and rated 5/5, no motor deficits, speech is clear, no peripheral sensory deficits Results & Data Results & Data Vital Signs (Past 12 Hours) Vital Signs Temp Pulse Pulse Resp BP BP Pulse Ox 12/07/23 14:28 96 H 18 181/98 H 96 12/07/23 12:20 105 H 25 H 158/71 H 94 12/07/23 11:26 103 H 12/07/23 10:19 12 12/07/23 10:19 12/07/23 10:19 36.6 C 92 H 16 143/93 H 97 12/07/23 09:53 16 12/07/23 09:53 O2 Del Method O2 Flow Rate 12/07/23 14:28 Room Air 12/07/23 12:20 12/07/23 11:26 12/07/23 10:19 12/07/23 10:19 Room Air 12/07/23 10:19 Nasal Cannula 5 12/07/23 09:53 12/07/23 09:53 Nasal Cannula 5 Laboratory Results 12/07/23 12/07/23 12:34 10:33 WBC 10.34 RBC 3.73 L Hgb 10.0 L Hct 31.5 L MCV 84.5 MCH 26.8 MCHC 31.7 L RDW Std Deviation 53.9 H RDW Coeff of Ad 17.7 H Plt Count 406 H MPV 8.9 L Immature Gran % (Auto) 1.4 Neut % (Auto) 77.3 Lymph % (Auto) 7.3 [place] % (Auto) 10.4 Eos % (Auto) 2.6 Baso % (Auto) 1.0 Neut # (Auto) 8.00 H Lymph # (Auto) 0.75 L [place] # (Auto) 1.08 H Eos # (Auto) 0.27 Baso # (Auto) 0.10 Immature Gran # (Auto) 0.14 D-Dimer 4240 H* Cancelled Sodium 140 Potassium 3.7 Chloride 100 Carbon Dioxide 31 Anion Gap 9 BUN 12 Creatinine 0.69 Est Cr Clr Drug Dosing 52.4 Est GFR ( Amer) 92.6 Est GFR (Non-Af Amer) 79.9 BUN/Creatinine Ratio 17.4 Glucose 115 H Calcium 8.5 L Magnesium 1.5 L Total Bilirubin 0.4 AST 15 ALT 9 Alkaline Phosphatase 83 Troponin I High Sens 17.6 H B-Natriuretic Peptide 711 H Total Protein 6.4 Albumin 3.3 L Globulin 3.1 Albumin/Globulin Ratio 1.1 Lipase 9 L TSH 2.888 Adenovirus (PCR) Not Detected B. pertussis DNA (PCR) Not Detected B.parapertussis DNA PCR Not Detected C. pneumoniae DNA (PCR) Not Detected Coronavirus OC43 (PCR) DETECTED A Coronavirus HKU1 (PCR) Not Detected Coronavirus 229E (PCR) Not Detected SARS-CoV-2 (PCR) Not Detected Coronavirus NL63 (PCR) Not Detected Human Metapneumovir PCR Not Detected Influenza Type A (PCR) Not Detected Influenza Type B (PCR) Not Detected M. pneumoniae (PCR) Not Detected Parainfluenza 1 (PCR) Not Detected Parainfluenza 2 (PCR) Not Detected Parainfluenza 3 (PCR) Not Detected Parainfluenza 4 (PCR) Not Detected RSV (PCR) Not Detected Entero/Rhino (PCR) Not Detected Diagnostic Findings Chest X-Ray 12/07/23 10:25 XR chest 1V portable CLINICAL HISTORY: sob TECHNIQUE: Single frontal radiograph of the chest was obtained. Comparison: Comparison is made to chest radiograph 10/29/2023 FINDINGS: No lines and tubes are seen. Calcified aortic knob is seen. There is prominence and cephalization of the vasculature with Hunter B lines seen. No evidence of pleural effusion or pneumothorax. IMPRESSION: Moderate pulmonary edema. ACT 112: Negative or not required by law. Electronically signed by: Bro Flores M.D. 12/07/2023 10:46 AM Chest CTA 12/07/23 13:39 CT angio chest PE protocol CT DOSE: 492.93 mGy.cm HISTORY: 82 years-old Female with PE. Acute shortness of breath TECHNIQUE: Multiple CTA images of the chest were obtained after the intravenous administration of 118 ml Optiray. Coronal and sagittal MIPS were obtained from the axial data set and were submitted for review. All measurements were obtained according to NASCET criteria. A dose lowering technique was utilized adhering to the principles of ALARA. COMPARISON: Chest radiograph of same day, CTA chest 10/29/2023 FINDINGS: CTA: Mild cardiomegaly with trace pericardial effusion. Extensive coronary artery and mitral annular calcifications. Atherosclerosis of the thoracic aorta without aneurysm. There is patency of the imaged great vessels. High-grade stenosis in the imaged portions of the celiac trunk proximally. No pulmonary emboli identified, however evaluation of the segmental and subsegmental branches is limited secondary to respiratory motion artifact. CT CHEST: Hypodense thyroid nodules measure up to 1.4 cm on the left. Persistent pathologic lymphadenopathy of the chest again noted. Conglomerate lymphadenopathy centered within the precarinal tissues measures up to approximately 6.5 x 5.4 cm, previously 6.6 x 5.8 cm on image 139. Subcarinal and right hilar lymphadenopathy also appears generally stable. Masslike soft tissue prominence within the left hilar distribution measures up to 4.4 x 3.6 cm, previously 4.2 x 3.3 cm. Small pleural effusions. Pulmonary emphysema with bronchial wall thickening and mild pulmonary edema. Narrowing of the left lower lobe bronchus is again seen with progressive left lower lobe consolidation. 9 mm spiculated and irregular nodule of the left upper lobe on image 163 previously measured 8 mm. 4 mm fissural nodule of the right middle lobe on image 107. New from prior is diffuse reticulonodular opacities with centrilobular micronodules throughout all the lobes bilaterally. No acute upper abdominal abnormality. Tiny hiatal hernia with nonspecific mid to distal esophageal wall thickening. Borderline enlarged paraesophageal and retrocrural lymph nodes are again noted measuring up to 10 mm. Unremarkable soft tissues. No acute fracture or destructive bone lesion. IMPRESSION: 1. Generally unchanged size of the left hilar mass suggestive of primary bronchogenic carcinoma with metastatic adenopathy which appears stable compared to the 10/29/2023 exam. 2. The aforementioned mass /lymphadenopathy encases the left hilar structures and narrows/opacifies the left lower lobe bronchus resulting in progressive left lower lobe consolidation/postobstructive pneumonitis and volume loss. 3. Interval development of diffuse reticulonodular opacities with centrilobular micronodules. Findings are favored to be infectious or inflammatory, however carcinomatosis could appear similarly. Follow-up is needed. 4. Cardiomegaly with mild pulmonary edema and small pleural effusions. 5. Spiculated irregular 9 mm nodule of the left upper lobe. 6. No pulmonary emboli identified. ACT 112: Negative or not required by law. The above report was generated using voice recognition software. It may contain grammatical, syntax or spelling errors. Electronically signed by: William Carranza M.D. 12/07/2023 2:34 PM ECG Additional Comments: Reviewed, no ST wave inversions or signs of ischemia Code Status & VTE Plan Code Status DNR/DNI-discussed with the patient and her family member at bedside Supervising Physician Co-Signing Physician Notes 82-year-old lady with PMH of extensive cancer history, currently undergoing chemotherapy presented with worsening shortness of breath, nausea, vomiting, abdominal pain. Found to have upper respiratory viral URTI. CXR and CT chest with pulmonary congestion and BNP elevated. Supplemental oxygen, IV Lasix, cardiology consult, telemetry monitoring. Palliative consult consider. Patient reported she completed her azithromycin course postchemotherapy. On examination: GENERAL: Alert and oriented x3. NAD, on 4L NC O2. Appears ill/frail/weak. HEENT: No pallor, no icterus. Pupils equal, round and reactive to light. Oral mucosa moist. NECK: No JVD, no neck masses. HEART: S1 and S2 heard. Regular rate and rhythm. + murmur, no gallop. RESPIRATORY SYSTEM: Normal AP diameter. No accessory muscle use. No wheezing, bb crackles. ABDOMEN: Soft, bowel sounds present, nontender, no distention. CENTRAL NERVOUS SYSTEM: No facial droop. Speech is clear. Obeys simple commands. Moves extremities. EXTREMITIES: trace ble edema, no erythema seen. I have seen and examined the patient and have discussed the case with the provider above. I agree with the assessment and plan as stated.
[2023-12-07] MEDS ORDERED: BENZONATATE 100 MG CAPSULE PO PRN (16:27)
[2023-12-07] MEDS ORDERED: PROCHLORPERAZINE MALEATE 10 MG TAB PO PRN (16:27)
[2023-12-07] MEDS ORDERED: LORATADINE 10 MG TAB PO SCH (16:27)
[2023-12-07] MEDS ORDERED: ONDANSETRON INJ 2 MG/ML 2 ML VIAL IV PRN (16:27)
[2023-12-07] MEDS ORDERED: FLUTICASONE FUROATE 100MCG 14 PUFFS/INHALER INH PRN (16:27)
--- NOTE | 2023-12-07 16:32 | Electrocardiogram Report ---
Test Reason : Blood Pressure : / mmHG Vent. Rate : 106 BPM Atrial Rate : 106 BPM P-R Int : 154 ms QRS Dur : 100 ms QT Int : 364 ms P-R-T Axes : 088 036 054 degrees QTc Int : 483 ms Poor data quality, interpretation may be adversely affected Sinus tachycardia Borderline ECG When compared with ECG of 30-OCT-2023 06:44, No significant change Confirmed by Jg Dodd ([id number]) on 12/07/2023 4:32:09 PM Referred By: REFERRED SELF Confirmed By:Jg Dodd
[2023-12-07] MEDS: FAMOTIDINE 20 MG TAB PO SCH (20:32)
[2023-12-07] MEDS: GABAPENTIN 300 MG CAP PO SCH (20:33)
[2023-12-07] MEDS: LOSARTAN POTASSIUM 50 MG TAB PO SCH (20:33)
[2023-12-07] MEDS: guaiFENesin SUGAR FREE 100 MG/5 ML UDC PO SCH (20:34)
[2023-12-07] MEDS: OMEGA-3 (PURIFIED FISH OIL) 1 GM CAP PO SCH (20:36)
[2023-12-07] MEDS: BUDESONIDE 0.5 MG/2 ML VIAL (PULMICORT) NEB SCH (20:42)
[2023-12-07] MEDS: FORMOTEROL 20 MCG/2 ML VIAL NEB SCH (20:42)
--- OUTSIDE RECORDS SUMMARY | 2023-12-07 21:36 | External Medical Summary | Summary of Care ---
Author Name Unknown Organization [facility] Address [address] [place] [address] Phone [phone] Care Team Providers Care Supervising Librarian Name Role Phone Rhys Humphrey MD Primary Care Provide r Reason for Visit * Reason Onset Date Comments [facility]: Maintenance 12/03/2023 Encounter Details Date Type Department Care Team (Late st Contact Info) Description 12/03/2023 Telephone [facility], [facility] [address] [place] [address] [facility], Nurse [place] [phone] [place] [address] [facility]: Maintenance Allergies Active Allergy Reactions Criticality Noted Date Comments Adhesive Tape Other (Please comment),Hives High 09/29/2008 Caused welts Dextromethorphan-Gu aifenesin Neuro complications (Please comment) Medium 12/23/2021 Feels lightheaded/"foggy" documented as of this encounter (statuses as of 12/03/2023) Medications Medication Sig Dispensed Refills Start Date [...] before bedtime. 50 Cap 0 01/18/2021 Active Sgtomom-Zeloicejf-Qs nc 333-133-5 MG Oral Tablet Take 1 [...] times a day as needed. 0 Active Montelukast Sodium 10 MG Oral Tablet [...] L shoulder 350 g 2 06/07/2023 Active Furosemide 40 MG Oral Tablet (Lasix)Indications:C hronic diastolic congestive heart failure (HCC) One tablet daily with an extra tablet as needed for swelling 120 Tablet 3 06/11/2023 Active Calmoseptine 0.44-20.6 % External Ointment [...] differently:20 mg OralBID (.AM/PM), Reported on 08/18/2023 Clobetasol Propionate 0.05 % External Cream (Temovate)Indication s:Lichen sclerosus Apply to area twice daily x 1 month , then nightly x 2 months, then twice weekly x 3 months 60 g 1 07/16/2023 Active Benzonatate 100 MG Oral Capsule Take 1 Capsule by mouth 3 times a day as needed for Cough. 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 Start on day 7 of chemo for total 10 days. 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 30 Tablet 1 11/05/2023 Active Albuterol Sulfate HFA 108 (90 Base) MCG/ACT Inhalation Aerosol SolutionIndications: COPD, moderate ([facility]) Inhale 2 Puffs by mouth every 4 hours as needed for Cough, Shortness of Breath or Wheezing. 18 g 5 11/09/2023 Active Ipratropium-Albutero l 0.5-2.5 (3) MG/3ML Inhalation Solution (Duoneb)Indications: COPD, group D, by GOLD 2017 classification ([facility]) Inhale 3 mL via nebulizer every 6 hours as needed for Shortness of Breath or Wheezing. 360 mL 3 11/10/2023 Active Budesonide 0.5 MG/2ML Inhalation Suspension (Pulmicort) Inhale 0.5 mg via nebulizer in the morning and 0.5 mg before bedtime. 60 mL 2 11/12/2023 Active Formoterol Fumarate 20 MCG/2ML Inhalation Nebulization Solution Inhale 1 Inhalation by mouth in the morning. 100 mL 1 11/12/2023 Active Losartan Potassium 50 MG Oral Tablet (Cozaar)Indications: HTN, goal below 140/90 Take 1 Tablet by mouth in the morning. 90 Tablet 1 11/28/2023 Active Ramelteon 8 MG Oral Tablet (Rozerem)Indications :Insomnia, unspecified type TAKE ONE TABLET BY MOUTH AT BEDTIME 30 Tablet 5 11/28/2023 Active documented as of this encounter (statuses as of 12/03/2023) Active Problems Problem Noted Date Diagnosed Date Chronic hypoxemic respiratory failure 11/07/2023 Encounter for antineoplastic chemotherapy 2022 Small cell [...] Medication Regimen o Other: anoro, arnradha, sunni, duonebs Self-Management plan o Prednisone 40mg daily [...] as of this encounter (statuses as of 12/03/2023) Resolved Problems Problem Noted Date Diagnosed Date [...] as of this encounter (statuses as of 12/03/2023) Immunizations Name Administration Dates Next Due COVID-19 mRNA, LNP-s, No Pre serve, 2-Dose Series ([facility]) 08/01/2021,07/11/2021,11/14/2020,10/24 COVID-19, MRNA-LNP, 23-24, P F, 30 MCG/0.3 mL, 12 YRS AND ABOVE, IM ([facility]) 07/23/2023 Covid-19, Mrna, Lnp-s, Pf, B ivalent, 30 Mcg, IM, 12 yrs and above ([facility]) 07/21/2022 Pneumococcal Conjugate Vacc, 13 Valent (Prevnar) 03/16/2015 Pneumococcal Conjugate Vacci ne, 20-valent ([id number]) 07/21/2022 Pneumococcal Polysaccharide PPV23 (Pneumovax) 03/05/2019,07/18/2007 Season [...] Date Smoking Tobacco: Former Cigarettes 0.5 46 0 10/01/1955 - 10/01/2001 Smokeless Tobacco: Never Alcohol Use Standard [...] Telephone Encounter - Denise Pittman LPN - 12/03/2023 10:18 AM EST Images from the original note were not included. [facility] Remote Patient Monitoring Able to contact patient: Trigger type: Abnormal reading(s): AMC (Advanced Monitored Caregiving): Pulse rate: Pulse: 109 Symptom review: None Diet Reviewed: N/A Fluid Intake Reviewed: N/A Self-Management Plan Reviewed: Red Flags: swelling in feets legs, coughtin up mucous green yellow requiring more oxygen then just at night Risk assignment recommendation: Moderate risk [...] Additional risk selection justification: Spoke to patient denies any issues at this time of headaches dizziness palpitations chest pain will call with any issues taking medications as directed Overall risk and identified plan: Moderate risk: Route to RNCM (Registered Nurse Bakery Worker Conveyor Line) and Advance Practitioner documented in this encounter Plan of Treatment Upcoming Encounters Date Type Department Care Team (Late st Contact Info) Description 12/10/2023 9:20 AM EDT Office Visit Family Medicine [address] [place] [phone] Rhys Humphrey MD [address] [place] [address] [place] [address] 12/17/2023 8:00 AM EDT Laboratory Laboratory [place] Arvind Christensen [address] [facility] [place] [phone] [facility] Sc[facility]ery [address] [facility] [place], [place] [address] 12/17/2023 8:30 AM EDT Office Visit Hematology/Oncology [facility] [address] [place], [place] [phone] Gris Diaz [facility] [place] [address] 12/17/2023 9:00 AM EDT Hem/Onc Treatment Hematology/Oncology Treatment [place] 200 [facility], [place] [phone] Apple, Chair 5 Hem Onc [facility] [place] [address] 12/18/2023 10:45 AM EDT Hem/Onc Treatment Hematology/Oncology Treatment, [address], [place] [phone] 12/19/2023 9:15 AM EDT Hem/Onc Treatment Hematology/Oncology Treatment [place] [address] [facility], [place] [phone] Apple, Chair 8 Hem Onc [facility] [address] [facility] [place], [place] [address] 2023 2:30 PM EDT Home Visit [facility] [address] [place] [address] Sarah Vitale RN [address] [place] [address] 12/26/2023 7:30 AM EDT Office Visit Sleep Disorders Ctr [facility] [address] [place] [phone] Sosa Freeman CRNP [address] [place] [address] 12/27/2023 11:00 AM EDT Office Visit Cardiology [address] [place] [address] Mi Neil PA-C [address] [place] [address] 01/18/2024 7:20 AM EDT Office Visit Family Medicine [address] [place] [phone] Rhys Humphrey MD [address] [place] [address] [place] [address] 03/18/2024 9:00 AM EDT Nurse Only Ancillary [address] [place] [address] [place], Nurse Annual Wellness [address] [place] [address] [place] [address] Scheduled Procedures Name Priority Associated Diagnoses Date/Ti [...] PAST YEAR FOR COPD 08/10/2024 08/10/2023 GFR 11/19/2024 11/19/2023, 11/2023, 09/17/2023, Additional history exists Albumin/Creatinine Ratio 04/28/2025 04/28/2022 DTaP,Tdap,and Td Vaccines (3 - Td or Tdap) 09/17/2029 09/17/2019, 08/10/2011, 10/01/2001 Zoster Vaccines Completed 04/25/2020, 08/31, 07/22/2012 VITAMIN D LEVEL ONCE IN A LIFETIME-USE SMARTSET# [id number] Completed 06/29/2020, 03/16/2015 Pneumococcal Vaccine: 65+ Years [...] Documents on File Type Date Recorded Patient Lathe Set Up Person Expl anation POLST 10/15/2019 3:17 PM POLST POLST 03/05/2019 POLST FORM Advance Directives and Living Will 01/27/2013 LIVING WILL Advance Directives and Living Will 01/27/2013 LIVING WILL Power of Account Receivable Clerk 01/27/2013 POWER OF A TTORNEY Power of Account Receivable Clerk 01/27/2013 POWER OF A TTORNEY Healthcare Agents on File Name Relationship Healthcare Agent Relationship Communication Cydney Benito Other - (no specific identity) Second Alternate Health Care Agent Anyi More Adult Child Health Care Roberth cooper of Account Receivable Clerk Care Teams Supervising Librarian Relationship Specialty Start Date End Date Rhys Humphrey MD [address] [place] [address] [place] [address] PCP - General Family Medicine 06/09/21 documented as of this encounter
--- OUTSIDE RECORDS SUMMARY | 2023-12-07 21:36 | External Medical Summary | Summary of Care ---
Author Name Unknown Organization [facility] Address [address] [place] [address] Phone [phone] Care Team Providers Care Fence Installer Helper Name Role Phone Rhys Humphrey MD Primary Care Provide r Reason for Visit * Reason Onset Date Comments [facility]: Maintenance 12/06/2023 Encounter Details Date Type Department Care Team (Late st Contact Info) Description 12/06/2023 Telephone [facility], [facility] [address] [place] [address] [facility], Nurse [place] [phone] [place] [address] [facility]: Maintenance Allergies Active Allergy Reactions Criticality Noted Date Comments Adhesive Tape Other (Please comment),Hives High 09/29/2008 Caused welts Dextromethorphan-Gu aifenesin Neuro complications (Please comment) Medium 12/23/2021 Feels lightheaded/"foggy" documented as of this encounter (statuses as of 12/06/2023) Medications Medication Sig Dispensed Refills Start Date [...] before bedtime. 50 Cap 0 01/18/2021 Active Cvoxsox-Fmxxrxxwl-Dc nc 333-133-5 MG Oral Tablet Take 1 [...] Base) MCG/ACT Inhalation Aerosol SolutionIndications: COPD, moderate ([facility]) Inhale 2 Puffs by mouth [...] as of this encounter (statuses as of 12/06/2023) Active Problems Problem Noted Date Diagnosed Date [...] as of this encounter (statuses as of 12/06/2023) Resolved Problems Problem Noted Date Diagnosed Date [...] as of this encounter (statuses as of 12/06/2023) Immunizations Name Administration Dates Next Due COVID-19 mRNA, LNP-s, No Pre serve, 2-Dose Series ([facility]) 08/01/2021,07/11/2021,11/14/2020,10/24 COVID-19, MRNA-LNP, 23-24, P F, 30 MCG/0.3 mL, 12 YRS AND ABOVE, IM ([facility]) 07/23/2023 Covid-19, Mrna, Lnp-s, Pf, B ivalent, 30 Mcg, IM, 12 yrs and above ([facility]) 07/21/2022 Pneumococcal Conjugate Vacc, 13 Valent (Prevnar) 03/16/2015 Pneumococcal Conjugate Vacci ne, 20-valent ([id number]) 07/21/2022 Pneumococcal Polysaccharide PPV23 (Pneumovax) 03/05/2019,07/18/2007 Season [...] Telephone Encounter - Denise Pittman LPN - 12/06/2023 8:43 AM EST [facility] Remote Patient Monitoring Able to contact patient: Trigger type: Abnormal reading(s): AMC (Advanced Monitored Caregiving): Blood Pressure Cuff: Blood pressure per cuff: 154/54 Symptom review: None Diet Reviewed: N/A Fluid Intake Reviewed: N/A Self-Management Plan Reviewed: Red Flags: more oxygen at night, swelling in legs/feet coughing up green yellow thick mucous Risk assignment recommendation: Moderate risk findings (check [...] Additional risk selection justification: Spoke to patient hasn't taken medications yet denies any issues of SOB chest pain headaches dizziness palpitations. Her BP now 144/55 will call with any issues and will recheck it later after takes medications Overall risk and identified plan: Moderate risk: Route to RNCM (Registered Nurse News Editor) and Advance Practitioner documented in this encounter Plan of Treatment Upcoming Encounters Date Type Department Care Team (Late st Contact Info) Description 12/10/2023 9:20 AM EDT Office Visit Family Medicine [address] [place] [phone] Rhys Humphrey MD [address] [place] [address] [place] [address] 12/17/2023 8:00 AM EDT Laboratory Laboratory [address] [place], [place] [phone] [facility], Lab [facility] [address] [facility] [place], [place] [address] 12/17/2023 8:30 AM EDT Office Visit Hematology/Oncology [facility] [address] [place], [place] [phone] Gris Diaz CRNP [address] [facility] [place] [address] 12/17/2023 9:00 AM EDT Hem/Onc Treatment Hematology/Oncology Treatment, [address], [place] [phone] Apple, Chair 5 Hem Onc [facility] 200 [facility] [place], [place] [address] 12/18/2023 10:45 AM EDT Hem/Onc Treatment Hematology/Oncology Treatment, [address], [place] [phone] 12/19/2023 9:15 AM EDT Hem/Onc Treatment Hematology/Oncology Treatment, [address], [place] [phone] Apple, Chair 8 Hem Onc [facility] 200 [facility] [place], [place] [address] 2023 2:30 PM EDT Home Visit [facility] [address] [place] [address] Sarah Vitale RN [address] [place] [address] 12/26/2023 7:30 AM EDT Office Visit Sleep Disorders Ctr [facility] [address] [place] [phone] Sosa Freeman CRNP [address] [place] [address] 12/27/2023 11:00 AM EDT Office Visit Cardiology [address] [place] [address] Mi Neil PA-C [address] [place] [address] 01/18/2024 7:20 AM EDT Office Visit Family Medicine [address] [place] [phone] Rhys Humphrey MD [address] [place] [address] [place] [address] 03/18/2024 9:00 AM EDT Nurse Only Ancillary [address] [place] [address] [place], Nurse Annual Wellness [address] [place] [address] [place] [address] Scheduled Procedures Name Priority Associated Diagnoses Date/Ti [...] D LEVEL ONCE IN A LIFETIME-USE SMARTSET# [id number] Completed 06/29/2020, 03/16/2015 Pneumococcal Vaccine: 65+ Years [...] Documents on File Type Date Recorded Patient Social Media Campaign Manager Expl anation POLST 10/15/2019 3:17 PM POLST POLST 03/05/2019 POLST FORM Advance Directives and Living Will 01/27/2013 LIVING WILL Advance Directives and Living Will 01/27/2013 LIVING WILL Power of Networking Specialist 01/27/2013 POWER OF A TTORNEY Power of Networking Specialist 01/27/2013 POWER OF A TTORNEY Healthcare Agents on File Name Relationship Healthcare Agent Relationship Communication Cydney Benito Other - (no specific identity) Second Alternate Health Care Agent Anyi More Adult Child Health Care Roberth cooper of Networking Specialist Care Teams Fence Installer Helper Relationship Specialty Start Date End Date Rhys Humphrey MD [address] [place] [address] [place] [phone] PCP - General Family Medicine 06/09/21 documented as of this encounter
--- OUTSIDE RECORDS SUMMARY | 2023-12-07 21:36 | External Medical Summary | Continuity of Care Document ---
Author Name Unknown Organization [address] Address [address] [place], [place] [id number] Care Team Providers Care Electrotype Molder Name Role Phone Rhys Humphrey Primary Care Physician [phone] [id number] Date(s): 12/04/23 - 12/04/[address], [address] [place] [phone] Discharge Disposition: Home or Self Care Attending [...] Exam Date Time Procedure Performing Provider Status 12/04/23 2:47 PM VL Carotid Duplex Bilateral Antonio Babin ae; Final Notes: (VL Carotid Duplex Bilateral) Reason For Exam: MINH VL Carotid Duplex Bilateral [facility] FINAL REPORT Name: LORIE FLETCHER : 1940 Visit: [id number] Date: 04 Dec 2023 TYPE OF TEST: Cerebrovascular Duplex REASON FOR TEST Known carotid stenosis, Right CEA; Left CEA with restenosis and TCAR INTERPRETATION/FINDINGS Duplex imaging performed of the bilateral extracranial arteries: 1. Patent right carotid artery endarterectomy without restenosis. 2. Patent left carotid bulb/proximal internal carotid artery stent with no evidence of restenosis. 3. No significant stenosis in the right external carotid artery. 4. >50% stenosis of the left external carotid artery. 5. Antegrade flow in the bilateral vertebral arteries. 6. Normal flow in the bilateral subclavian arteries. Compared to previous studies 02/21/2022 and 05/28/2023, there is no significant change. IMPRESSION/COMMENTS I have personally reviewed the data relevant to the interpretation of this study. TECHNOLOGIST: Maggi Babin , RD, RVT PHYSICIAN: Pancho Whalen M.D. Signed: 12/04/2023 03:05 PM Final Dictated by:MD Whalen Eugene J Dictated DT/TM:12/04/2023 3:05 Signed by:MD Whalen Eugene J Signed (Electronic Signature):12/04/2023 3:05 p Transcribed by:ALYSSIA Social History Social History Type Response Smoking Status Never smoked cigaret rao Sex Female Patient Care team information Care Team Personnel Name: CECI Talavera Lynn Position: Physician Shoulder Puncher Exempt - Vasc Surg Member Role: Lifetime Relationship Address: Address: [address] [place] [id number] Name: MD Milagro, Rhys Position: Referring Member Role: Primary Care Provider Address: Address: [place] [id number] Care Team Related Persons Name: JAVIER WATSON Name: NELLY GRANADOS
--- OUTSIDE RECORDS SUMMARY | 2023-12-07 21:36 | External Medical Summary | Summary of Care ---
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 Use as directed. 1 Each 1 11/17/2019 Active Iron 325 (65 Fe) MG Oral Tablet Take 1 Tablet by mouth daily. 0 Active Cranberry 500 MG Oral Capsule Take 1 Capsule by mouth in the morning and 1 Capsule before bedtime. 50 Cap 0 01/18/2021 Active Jatfliw-Lcvunwjta-Z inc 333-133-5 MG Oral Tablet Take 1 [...] 08/18/2023 Clobetasol Propionate 0.05 % External Cream (Temovate)Indicatio [...] mRNA, LNP-s, No Pre serve, 2-Dose Series ([facility]) 08/01/2021,07/11/2021,11/14/2020,10/24 COVID-19, MRNA-LNP, 23-24, P F, 30 MCG/0.3 mL, 12 YRS AND ABOVE, IM ([facility]) 07/23/2023 Covid-19, Mrna, Lnp-s, Pf, B ivalent, 30 Mcg, IM, 12 yrs and above ([facility]) 07/21/2022 Pneumococcal Conjugate Vacc, 13 Valent (Prevnar) 03/16/2015 Pneumococcal Conjugate Vacci ne, 20-valent ([id number]) 07/21/2022 Pneumococcal Polysaccharide PPV23 (Pneumovax) 03/05/2019,07/18/2007 Season [...] AM EDT Office Visit Family Medicine [address] [place] [phone] Rhys Humphrey MD [address] [place] [address] [place] [address] 12/17/2023 8:00 AM EDT Laboratory Laboratory [facility] [place] [address] [place] [phone] [place], Lab [facility] [place] [address] 12/17/2023 8:30 AM EDT Office Visit Hematology/Oncology [facility] [place] [address] [place] [address] Gris Diaz CRNP [address] [place], [place] [address] [address] 12/17/2023 9:00 AM EDT Hem/Onc Treatment Hematology/Oncology Treatment [address] [place] [phone] Apple, Chair 5 Hem Onc [facility] [address] [place] [address] [place] [address] 12/18/2023 10:45 AM EDT Hem/Onc Treatment Hematology/Oncology Treatment, [address] [phone] 12/19/2023 9:15 AM EDT Hem/Onc Treatment Hematology/Oncology Treatment [address] [place] [phone] Apple, Chair 8 Hem Onc [facility] [place] [address] 2023 2:30 PM EDT [facility] Visit [facility] [address] [place] [address] Sarah Vitale, RN [address] [place] [address] 12/26/2023 7:30 AM EDT Office Visit Sleep Disorders Ctr [facility] [address] [place] [phone] Sosa Freeman CRNP [address] [place] [address] 12/27/2023 11:00 AM EDT Office Visit Cardiology [address] [place] [address] Mi Neil PA-C [address] [place] [address] 01/18/2024 7:20 AM EDT Office Visit Family Medicine [address] [place] [phone] Rhys Humphrey MD [address] [place] [address] [place] [address] 03/18/2024 9:00 AM EDT Nurse Only Ancillary [address] [place] [address] [place], Nurse Annual [address] [place] [address] Scheduled Procedures Name Priority Associated Diagnoses Date/Ti [...] FOR COPD 08/10/2024 08/10/2023 GFR 11/19/2024 11/19/2023, /11/2023, 09/17/2023, Additional history exists Albumin/Creatinine Ratio 04/28/2025 04/28/2022 DTaP,Tdap,and Td Vaccines (3 - Td or Tdap) 09/17/2029 09/17/2019, 08/10/2011, 10/01/2001 Zoster Vaccines Completed 04/25/2020, 08/31, 07/22/2012 VITAMIN D LEVEL ONCE IN A LIFETIME-USE SMARTSET# [id number] Completed 06/29/2020, 03/16/2015 Pneumococcal Vaccine: 65+ Years [...] Documents on File Type Date Recorded Patient Sprinkler Truck Driver Expl anation POLST 10/15/2019 3:17 PM POLST POLST 03/05/2019 POLST FORM Advance Directives and Living Will 01/27/2013 LIVING WILL Advance Directives and Living Will 01/27/2013 LIVING WILL Power of Environmental Adviser 01/27/2013 POWER OF A TTORNEY Power of Environmental Adviser 01/27/2013 POWER OF A TTORNEY Healthcare Agents on File Name Relationship Healthcare Agent Relationship Communication Cydney Benito Other - (no specific identity) Second Alternate Health Care Agent Anyi More Adult Child Health Care Roberth r of Environmental Adviser Care Teams Senior Java Software Engineer Relationship Specialty Start Date End Date Rhys Humphrey MD [address] [place] [address] [place] [phone] PCP - General Family Medicine 06/09/21 documented as of this encounter
--- OUTSIDE RECORDS SUMMARY | 2023-12-07 21:36 | External Medical Summary | Continuity of Care Document ---
Author Name Unknown Organization [address] Address [address] [place], [place] [id number] Care Team Providers Care Isotope Technician Name Role Phone Rhys Humphrey Primary Care Physician [phone] Encounter [facility] [id number] Date(s): 12/04/23 - 12/04/23 [facility] [address] [place] [address] [phone] Encounter Diagnosis Bilateral carotid artery stenosis(Discharge Diagnosis) - 12/04/23 Discharge Disposition: Home or Self Care Attending Physician: MD Whalen Eugene J Referring Physician: MD Whalen Eugene J Allergies, Adverse Reactions, Alerts No Known Medication Allergies Assessment and Plan Extracted from: Title:Clinical Document Author:CECI Talavera Lynn Date:12/04/23 I OUTPATIENT NOTE Name: LORIE LINARES Patient Number: [id number] : 1940 Date of Service: 12/04/2023 Chief Complaint: _Follow-up for carotid stenosis HPI: _Ms. Linares is an elderly female who presents to Dr. Whalen vascular surgery clinic today for 6-month follow-up visit regarding her history of carotid stenosis. As you remember the patient is status post bilateral carotid endarterectomies in the remote past, and subsequently had restenosis of her left ICA, necessitating a left TCAR procedure which was performed 16 months ago at [facility]. Since being seen here 6 months ago, patient states that she was diagnosed with lung cancer and is currently on chemotherapy. Her overall health has deteriorated, but she still is hoping to do some traveling this year. She denies any new concerning symptoms, including amaurosis, extremity weakness numbness or tingling, difficulty speaking or swallowing, facial droop, sudden onset confusion, other complaints. Imaging: Patient underwent a bilateral carotid ultrasound prior to today's appointment which demonstrates a widely patent right carotid endarterectomy site without evidence of restenosis, a widely patent left carotid artery stent with no evidence of restenosis, antegrade flow in her vertebral arteries are normal flow in her subclavian arteries. Current Home Meds: (Last Updated 12/03 14:31) albuterol (albuterol 0.083% for nebulization) 2.5 mg [...] Carotid stenosis, left OBJECTIVE Vitals: Last Updated 12/04/23 14:43 Date Temp BP Location Pulse RR SpO2 Pain 12/04/23 146/50 Left Arm 12/04/23 142/52 Right Arm 99 91 05/28/23 170/70 Right Arm 0 Vital Signs are the last 3 documented. No Orthostatic Data Available Height and Weight: Last Updated 12/04/23 14:42 Date BMI Wt(kg) Wt(lb) Method Ht(cm) (ft-in) Method 12/04/23 65 143 Standing Scale 05/11/22 78.9 174 Standing Scale 03/17/21 30.97 83.8 184 Standing Scale 164.5 5-4 Heights and Weights are the last 3 documented. Physical Exam Constitutional: In general patient is a chronically ill-appearing elderly female in no distress. She is alert and oriented x 3. She is on oxygen via nasal cannula. She does use a rolling walker for ambulation. Her carotids do demonstrate a faint bruit. Her heart is regular, her lungs are significantly decreased with sparse expiratory wheezing. Abdomen is soft nontender with active bowel sounds in all 4 quadrants. Brachial and radial pulses are +3. Lower extremity distal pulses are +1. She has brisk capillary refill and no sign of distal ischemia. ASSESSMENT: _ PLAN: _ 1 ) _bilateral carotid stenosis Patient is doing well since being seen here 6 months ago. Her ultrasound demonstrates widely patent surgical sites. We recommend that she undergo reevaluation with new carotid ultrasound in 1 year. Patient is agreeable to this plan. She will call with any other questions. Thank you for letting us participate in [...] Start Date: 05/28/23 Status: Ordered Mental Status 12/04/23 Mandatory Health Literacy Documentation Yes Health Literacy Communication Barriers N ever Primary Language Luxembourger Problem List Condition Confirmation Course Effective Dates Status H ealth Status Informant Bilateral carotid artery stenosis Confirmed Active S/P carotid endarterectomy Confirmed Active Carotid stenosis, left Confirmed Active Diagnosis Diagnosis Type Effective Dates Health Status Cl inical Service Informant Bilateral carotid artery stenosis Discharge Diagnosis 12/04/23 Procedures Procedure Date Related Diagnosis Body Site Status Left TCAR 07/27/22 Completed Left CEA - Carotid endarterectomy 04/06/21 Completed Vital Signs Most recent to oldest [Reference Range]: 1 2 Patient Weight 65 kg (12/04/23 2:42 PM) Heart Rate 99 bpm (12/04/23 2:42 PM) Blood Pressure 146/50mmHg (12/04/23 2:43 PM) 142/52mmHg (12/04/23 2:42 PM) BP Location # 1 Left Arm (12/04/23 2:43 PM) Right Arm (12/04/23 2:42 PM) Social History Social History Type Response Smoking Status Never smoked cigaret rao Sex Female [facility] Outpt Note * CECI Talavera Lynn: PERFORM Event Display: [facility] Outpt Note Authored Date: [id number] [facility] OUTPATIENT NOTE Name: LORIE LINARES Patient Number: [id number] : 1940 Date of Service: 12/04/2023 Chief Complaint: _Follow-up for carotid stenosis HPI: _Ms. Linares is an elderly female who presents to Dr. Whalen vascular surgery clinic today for 6-month follow-up visit regarding her history of carotid stenosis. As you remember the patient is status post bilateral carotid endarterectomies in the remote past, and subsequently had restenosisof her left ICA, necessitating a left TCAR procedure which was performed 16 months ago at [facility]. Since being seen here 6 months ago, patient states that she was diagnosed with lung cancer and is currently on chemotherapy. Her overall health has deteriorated, but she still is hoping to do some traveling this year. She denies any new concerning symptoms, including amaurosis, e xtremity weakness numbness or tingling, difficulty speaking or swallowing, facial droop, sudden onset confusion, other complaints. Imaging: Patient underwent a bilateral carotid ultrasound prior to today's appointment which demonstrates a widely patent right carotid endarterectomy site without evidence of restenosis, a widely patent left carotid artery stent with no evidence of restenosis, antegrade flow in her vertebral arteries are normal flow in her subclavian arteries. Current Home Meds: (Last Updated 12/03 14:31) albuterol (albuterol 0.083% for nebulization) 2.5 mg [...] Carotid stenosis, left OBJECTIVE Vitals: Last Updated 12/04/23 14:43 Date Temp BP Location Pulse RR SpO2 Pain 12/04/23 146/50 Left Arm 12/04/23 142/52 Right Arm 99 91 05/28/23 170/70 Right Arm 0 Vital Signs are the last 3 documented. No Orthostatic Data Available Height and Weight: Last Updated 12/04/23 14:42 Date BMI Wt(kg) Wt(lb) Method Ht(cm) (ft-in) Method 12/04/23 65 143 Standing Scale 05/11/22 78.9 174 Standing Scale 03/17/21 30.97 83.8 184 Standing Scale 164.5 5-4 Heights and Weights are the last 3 documented. Physical Exam Constitutional: In general patient is a chronically ill-appearing elderly female in no distress. She is alert and oriented x 3. She is on oxygen via nasal cannula. She does use a rolling walker for ambulation. Her carotids do demonstrate a faint bruit. Her heart is regular, her lungs are significantly decreased with sparse expiratory wheezing. Abdomen is soft nontender with active bowel sounds inall 4 quadrants. Brachial and radial pulses are +3. Lower extremity distal pulses are +1. She has brisk capillary refill and no sign of distal ischemia. ASSESSMENT: _ PLAN: _ 1 ) _bilateral carotid stenosis Patient is doing well since being seen here 6 months ago. Her ultrasound demonstrates widely patentsurgical sites. We recommend that she undergo reevaluation with new carotid ultrasound in 1 year. Patient is agreeable to this plan. She will call with any other questions. Thank you for letting us participate in the care of this patient. Electronic Signature on File CC: Rhys Humphrey MD [facility] [address] [facility] [id number] * CC: Herminio Bynum DO [address] [facility] [id number] * Electronically Reviewed/Signed by: Cathi Talavera PA-C Author Signature Dt/Tm:12/04/2023 03:48 PM [facility] [place] [address], [address] [place] [address] Patient Care team information Care Team Personnel Name: CECI Talavera Lynn Position: Physician [employer] Management Professor Exempt - Vasc Surg Member Role: Lifetime Relationship Address: Address: [facility] [address] [place] [address] Name: MD Humphrey Thiviyanath Position: Referring Member Role: Primary Care Provider Address: Address: [address] [address] Care Team Related Persons Name: JAVIER WATSON Name: NELLY GRANADOS
--- OUTSIDE RECORDS SUMMARY | 2023-12-07 21:37 | External Medical Summary | Summary of Care ---
Author Name Unknown Organization [facility] Address [address] [place] [address] Phone [phone] Care Team Providers Care Physician Scientist Name Role Phone Ollie Gonzalez MD Primary Care Provide r Reason for Visit * Reason Comments eRx-Medication Refill Encounter Details Date Type Department Care Team (Late st Contact Info) Description 11/27/2023 Refill Family Medicine [address] [place] [phone] Gregory Martin MD [address] [place] [address] [place] [address] Insomnia, unspecified type Allergies Active Allergy Reactions Criticality Noted Date Comments Adhesive Tape Other (Please comment),Hives High 09/29/2008 Caused welts Dextromethorphan-Gu aifenesin Neuro complications (Please comment) Medium 12/23/2021 Feels lightheaded/"foggy" documented as of this encounter (statuses as of 11/28/2023) Medications Medication Sig Dispensed Refills Start Date [...] before bedtime. 50 Cap 0 01/18/2021 Active Whbsjhx-Zcroqtbrz-Mp nc 333-133-5 MG Oral Tablet Take 1 [...] as of this encounter (statuses as of 11/28/2023) Active Problems Problem Noted Date Diagnosed Date [...] as of this encounter (statuses as of 11/28/2023) Resolved Problems Problem Noted Date Diagnosed Date [...] as of this encounter (statuses as of 11/28/2023) Immunizations Name Administration Dates Next Due COVID-19 mRNA, LNP-s, No Pre serve, 2-Dose Series ([employer]) 08/01/2021,07/11/2021,11/14/2020,10/24 COVID-19, MRNA-LNP, 23-24, P F, 30 MCG/0.3 mL, 12 YRS AND ABOVE, IM ([employer]) 07/23/2023 Covid-19, Mrna, Lnp-s, Pf, B ivalent, 30 Mcg, IM, 12 yrs and above ([employer]) 07/21/2022 Pneumococcal Conjugate Vacc, 13 Valent (Prevnar) 03/16/2015 Pneumococcal Conjugate Vacci ne, 20-valent (Nhlbazr12) 07/21/2022 Pneumococcal Polysaccharide PPV23 (Pneumovax) 03/05/2019,07/18/2007 Season [...] Telephone Encounter - Ollie Gonzalez MD - 11/28/2023 11:13 AM EST Signed Prescriptions: Disp Refills Ramelteon 8 MG Oral Tablet (Rozerem) 30 Tab*5 Sig: TAKE ONE TABLET BY MOUTH AT BEDTIME Authorizing Provider: OLLIE GONZALEZ * Telephone Encounter - James Bates [facility] - 11/28/2023 11:05 AM ESTPending Prescriptions: Disp Refills Ramelteon 8 MG Oral Tablet [Pharmacy Med N*30 Tab*5 Sig: TAKE ONE TABLET BY MOUTH AT BEDTIME * Telephone Encounter - James Bates [facility] - 11/28/2023 11:05 AM EST Refill pharmacists currently not authorized to approve refills for the pended medication(s) per refill protocol. Please approve if appropriate. Thanks, James Bates, R.Ph. Clinical Pharmacist [facility] [place] [phone] 11/28/2023,11:05 AM Pending Prescriptions: Disp Refills Ramelteon 8 MG Oral Tablet [Pharmacy Med N*30 Tab*5 Sig: TAKE ONE TABLET BY MOUTH AT BEDTIME Last Visit: 11/07/2023 (in office), Visit date not found (telemedicine) Next Visit: 12/10/2023 If no future appointments scheduled, and last appointment is greater than a year ago, please schedule patient for a follow-up appointment Last date the medication was ordered: 06-11-23 Pharmacy: [facility], [address] [place]EENAT BHANDARI Is this request for a controlled substance?No Urine Drug Screen:No results found. However, due to the size of the patient record, not all encounters were searched. Please check Results Review for a complete set of results. Patient Phone Numbers Labs: Lab Results Component Value Date/Time CREAT 0.9 11/19/2023 08:34 AM CREAT 1.0 06/29/2020 12:24 PM POTASSIUM 3.8 11/19/2023 08:34 AM POTASSIUM 4.1 06/29/2020 12:24 PM TSH 3.80 11/19/2023 08:34 AM TSH 3.53 08/08/2012 10:00 AM LDLCALC 63 06/07/2023 08:58 AM LDLCALC 80 03/03/2019 09:10 AM LDLDIRECT NOT APPLICABLE 03/03/2019 09:10 AM ALT 8 (L) 11/19/2023 08:34 AM ALT 24 06/29/2020 12:24 PM HGBA1C 5.3 07/07/2021 11:34 AM HGBA1C 6.3 (H) 06/29/2020 12:24 PM documented in this encounter Plan of Treatment Upcoming Encounters Date Type Department Care Team (Late st Contact Info) Description 11/28/2023 4:00 PM EST Home Visit [facility] [address] [facility] [place] [address] Sarah Vitale, RN [address] [place] [address] 12/10/2023 9:20 AM EDT Office Visit Family Medicine [address] [place] [address] Ollie Gonzalez MD [address] [place] [address] [place] [address] 12/17/2023 8:00 AM EDT Laboratory Laboratory State Arvind Christensen [address] [place] [phone] Ramona Chiu [address] [place] [address] 12/17/2023 8:30 AM EDT Office Visit Hematology/Oncology [facility] Arvind Christensen [address] [place] [phone] Gris Diaz CRNP [address] [facility] [place] [address] 12/17/2023 9:00 AM EDT Hem/Onc Treatment Hematology/Oncology Treatment, [place] [address] [place], [place] [phone] Apple, Chair 5 Hem Onc Scenery [address] [facility], [place] [address] 12/18/2023 10:45 AM EDT Hem/Onc Treatment Hematology/Oncology Treatment, [place] [address] [facility], [place] [phone] 12/19/2023 9:15 AM EDT Hem/Onc Treatment Hematology/Oncology Treatment, [place] [address] [facility], [place] [phone] Apple, Chair 8 Hem Onc Scenery [facility] [address] 12/26/2023 7:30 AM EDT Office Visit Sleep Disorders Ctr [facility] [address] [place] [phone] Sosa Freeman CRNP [address] [place] [address] 12/27/2023 11:00 AM EDT Office Visit Cardiology [address] [place] [address] Mi Neil PA-C [address] [place] [address] 01/18/2024 7:20 AM EDT Office Visit Family Medicine [address] [place] [phone] Ollie Gonzalez MD [address] [place] [address] [place] [address] 03/18/2024 9:00 AM EDT Nurse Only Ancillary Zara Schofield[address] [place] [address] [place], Nurse Annual [address] [place] [address] Scheduled Procedures Name Priority Associated Diagnoses Date/Ti [...] FOR COPD 08/10/2024 08/10/2023 GFR 11/19/2024 11/19/2023, /0 11/2023, 09/17/2023, Additional history exists Albumin/Creatinine Ratio 04/28/2025 04/28/2022 DTaP,Tdap,and Td Vaccines (3 - Td or Tdap) 09/17/2029 09/17/2019, 08/10/2011, 10/01/2001 Zoster Vaccines Completed 04/25/2020, 08/31, 07/22/2012 VITAMIN D LEVEL ONCE IN A LIFETIME-USE SMARTSET# [id number] Completed 06/29/2020, 03/16/2015 Pneumococcal Vaccine: 65+ Years [...] Documents on File Type Date Recorded Patient Photonics Engineering Technologist Expl anation POLST 10/15/2019 3:17 PM POLST POLST 03/05/2019 POLST FORM Advance Directives and Living Will 01/27/2013 LIVING WILL Advance Directives and Living Will 01/27/2013 LIVING WILL Power of Patient Coordinator Front Desk 01/27/2013 POWER OF A TTORNEY Power of Patient Coordinator Front Desk 01/27/2013 POWER OF A TTORNEY Healthcare Agents on File Name Relationship Healthcare Agent Relationship Communication Cydney Benito Other - (no specific identity) Second Alternate Health Care Agent Anyi More Adult Child Health Care Roberth r of Patient Coordinator Front Desk Care Teams Physician Scientist Relationship Specialty Start Date End Date Ollie Gonzalez MD [address] [place] [address] [place] [address] PCP - General Family Medicine 06/09/21 documented as of this encounter
--- OUTSIDE RECORDS SUMMARY | 2023-12-07 21:37 | External Medical Summary | Summary of Care ---
Author Name Unknown Organization [facility] Address [address] [place] [address] Phone [phone] Care Team Providers Care Theatre Arts Professor Name Role Phone Rhys Humphrey MD Primary Care Provide r Reason for Visit * Reason Comments [facility]: Maintenance Encounter Details Date Type Department Care Team (Late Contact Info) Description 11/28/2023 4:00 PM EST [facility] Visit [facility], [facility] [address] [facility] [place] [address] Sarah Vitale, RAYNA [address] [facility] [place] [address] Allergies Active Allergy Reactions Criticality Noted Date Comments Adhesive Tape Other (Please comment),Hives High 09/29/2008 Caused welts Dextromethorphan-Gu aifenesin Neuro complications (Please comment) Medium 12/23/2021 Feels lightheaded/"foggy" documented as of this encounter (statuses as of 12/01/2023) Medications Medication Sig Dispensed Refills Start Date [...] before bedtime. 50 Cap 0 01/18/2021 Active Smhraro-Anqmbjcsy-Jm nc 333-133-5 MG Oral Tablet Take 1 [...] Inhalation Aerosol SolutionIndications: COPD, moderate ([facility]) Inhale 2 Puffs by mouth every 4 hours as needed for Cough, Shortness of Breath or Wheezing. 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 [...] as of this encounter (statuses as of 12/01/2023) Resolved Problems Problem Noted Date Diagnosed Date [...] as of this encounter (statuses as of 12/01/2023) Immunizations Name Administration Dates Next Due COVID-19 mRNA, LNP-s, No Pre serve, 2-Dose Series ([employer]) 08/01/2021,07/11/2021,11/14/2020,10/24 COVID-19, MRNA-LNP, 23-24, P F, 30 MCG/0.3 mL, 12 YRS AND ABOVE, [facility] 07/23/2023 Covid-19, Mrna, Lnp-s, Pf, B ivalent, 30 Mcg, IM, 12 yrs and above ([employer]) 07/21/2022 Pneumococcal Conjugate Vacc, 13 Valent (Prevnar) 03/16/2015 Pneumococcal Conjugate Vacci ne, 20-valent ([id number]) 07/21/2022 Pneumococcal Polysaccharide PPV23 (Pneumovax) 03/05/2019,07/18/2007 Season [...] Sign Reading Time Taken Comments Blood Pressure 122/54 11/28/2023 2:21 PM EST Pulse 86 11/28/2023 2:21 PM EST Temperature 36.3 C (97.3 F) 11/28/2023 2:21 PM ES T Respiratory Rate 18 11/28/2023 2:21 PM EST Oxygen Saturation 94% 11/28/2023 2:21 PM EST 4L via n/c Inhaled Oxygen Concentration - - Weight - - Height - - Body Mass Index - - documented in this encounter Progress Notes * Sarah Vitale RN - 11/28/2023 2:22 PM EST [facility] Telecommunications Administrator Visit Date: 11/28/2023 Time: 2:22 PM Name: Keisha Linares : 1940 Current Concerns: Patient seen for follow up- 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 Reports overall doing well. VS wnl Lungs clear but diminished Oxygen dependence No LE edema noted Voiding without difficulty Bowels wnl- per report Appetite varies- fair today. Had pizza for lunch Taking fluids AMC scale/BP- weights/BP stable Pill packs reviewed- no aspirin noted in packs but listed in Epic. Spoke with Joan at [facility] pharmacy. See Telephone encounter per Dr. Humphrey 10/16/23- restart aspirin only. Cassandra at [facility] aware- will send 8 days of baby aspirin. Problems/Symptoms: Review of Systems Constitutional: Negative. HENT: Negative. Eyes: Negative. Respiratory: Positive for shortness of breath. Cardiovascular: Negative. Gastrointestinal: Negative. Endocrine: Negative. Genitourinary: Negative. Musculoskeletal: Positive for gait problem. Skin: Negative. Psychiatric/Behavioral: Negative. Physical Exam: BP 122/54 (BP Site: Left Arm, BP Position: Sitting, BP Cuff Size: Regular) | Pulse 86 | Temp 36.3 C (97.3 F) (Tympanic) | Resp 18 | SpO2 94% Comment: 4L via n/c Pain 0 Physical Exam Constitutional: Appearance: Normal [...] No. No falls since last visit Treatment/Plan: Aspirin to be sent tomorrow- patient to take daily per PCP- T/E 10/16/23 Continue medications as prescribed Chemo q 4 weeks- daughter makes adjustments with medications as per direction of oncology Keep all upcoming MD appointments Fall precautions- walker Oxygen 2-4 L via n/c continuous AMC scale/BP RN CM follow up in 4 weeks Home Interventions Provided: Reinforced current Plan of Care, including self-management and medication regimen Patient's Goals of Care: Get better Get to go to [place] Stay out Patient's 'Red Flags': Requiring oxygen more than just at night Coughing up green, yellow , thick mucous Swelling in legs/feet Patient Needs to Remember: Call [facility] with any medical concerns/ red flags Referrals Needed: N/a Follow Up: Is there cellular connectivity/connectivity in the home? Yes Does the patient have internet in the home? No Patient encouraged to call the intake phone number for all urgent but not emergent issues. Scheduled to follow up with patient in 4 weeks. Sarah Bhandari RN 11/28/2023 2:22 PM documented in this encounter Plan of Treatment Upcoming Encounters Date Type Department Care Team (Late st Contact Info) Description 12/10/2023 9:20 AM EDT Office Visit Family Medicine [address] [phone] Rhys Humphrey MD [address] [place] [address] [place] [address] 12/17/2023 8:00 AM EDT Laboratory Laboratory [facility] State Arvind Chiu 200 [facility] [place] [phone] [facility] [address] [place] [address] 12/17/2023 8:30 AM EDT Office Visit Hematology/Oncology State Arvind Christensen 200 [facility] [place] [phone] Gris Diaz CRNP [address] [facility] [place] [address] 12/17/2023 9:00 AM EDT Hem/Onc Treatment Hematology/Oncology Treatment, [facility] 200 [facility], [place] [phone] Park, Chair [address], [place] [address] 12/18/2023 10:45 AM EDT Hem/Onc Treatment Hematology/Oncology Treatment, [facility] 200 [facility], [place] [phone] 12/19/2023 9:15 AM EDT Hem/Onc Treatment Hematology/Oncology Treatment, [address], [place] [phone] [place], Chair [address], [place] [address] 2023 2:30 PM EDT Home Visit [facility] [address] [place] [address] Sarah Vitale RN [address] [place] [address] 12/26/2023 7:30 AM EDT Office Visit Sleep Disorders [facility] [address] [place] [phone] Sosa Freeman CRNP [address] [place] [address] 12/27/2023 11:00 AM EDT Office Visit Cardiology [address] [place] [address] Mi Neil PAMateo [address] [place] [address] 01/18/2024 7:20 AM EDT Office Visit Family Medicine [address] [place] [phone] Rhys Humphrey MD [address] [place] [address] [place] [address] 03/18/2024 9:00 AM EDT Nurse Only Ancillary [address] [place] [address] [place], Nurse Annual [address] [place] [address] Scheduled Procedures Name Priority Associated Diagnoses Date/Ti [...] D LEVEL ONCE IN A LIFETIME-USE SMARTSET# [id number] Completed 06/29/2020, 03/16/2015 Pneumococcal Vaccine: 65+ Years [...] Documents on File Type Date Recorded Patient Projects Manager Expl anation POLST 10/15/2019 3:17 PM POLST POLST 03/05/2019 POLST FORM Advance Directives and Living Will 01/27/2013 LIVING WILL Advance Directives and Living Will 01/27/2013 LIVING WILL Power of Broommaking Supervisor 01/27/2013 POWER OF A TTORNEY Power of Broommaking Supervisor 01/27/2013 POWER OF A TTORNEY Healthcare Agents on File Name Relationship Healthcare Agent Relationship Communication Cydney Benito Other - (no specific identity) Second Alternate Health Care Agent Anyi More Adult Child Health Care Roberth r of Broommaking Supervisor Care Teams Theatre Arts Professor Relationship Specialty Start Date End Date Rhys Humphrey MD [address] [place] [address] [place] [address] PCP - General Family Medicine 06/09/21 documented as of this encounter
--- OUTSIDE RECORDS SUMMARY | 2023-12-07 21:37 | External Medical Summary | Summary of Care ---
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) Procedures UT CARBOPLATIN INJECTION UT FOSAPREPITANT INJECTION UT ETOPOSIDE 10 MG INJ UT INJ, ATEZOLIZUMAB,10 MG UT INJECTION, UDENYCA 0.5 MG Martínez Lopes MD [address] [place] [address] Anc Hem/Onc [address] [place] [address] Referral ID Status Reason Start Date Expiration Date V isits Requested Visits Authorized [id number] Authorized 09/21/2023 03/22/2024 [id number] Encounter Details Date Type Department Care Team (Latest Contact Info) Description 10/05/2023 3:00 PM EST Immunization/ Injection Hematology/Oncology [address], [address] [phone] Nurse, Med 4 200 [facility], [place] [address] Encounter for antineoplastic chemotherapy*; Small cell neuroendocrine [...] L shoulder 350 g 2 3 Active Furosemide 40 MG Oral Tablet (Lasix)Indications :Chronic diastolic congestive heart failure (HCC) One tablet daily with an extra tablet as needed for swelling 120 Tablet 3 3 Active Calmoseptine 0.44-20.6 % External Ointment [...] 08/18/2023 Clobetasol Propionate 0.05 % External Cream (Temovate)Indicati ons:Lichen sclerosus Apply to area twice daily x 1 month , then nightly x 2 months, then twice weekly x 3 months 60 g 1 3 Active Benzonatate 100 MG Oral Capsule Take 1 Capsule by mouth 3 times a day as needed for Cough. 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 18 g 5 3 024 Discontinued(Re fill) Ipratropium-Albute rol 0.5-2.5 (3) MG/3ML Inhalation Solution (Duoneb)Indication s:COPD, group D, by GOLD 2017 classification ([facility]) Inhale 3 mL via nebulizer every 6 hours as needed for Shortness of Breath or Wheezing. 360 mL 3 3 024 Discontinued(Re fill) Clopidogrel Bisulfate 75 MG Oral Tablet (pLAVix)Indication s:TIA (transient ischemic attack) Take 1 Tablet by mouth daily. 90 Tablet 1 3 024 Discontinued(Ga dication List Clean Up) Premarin 0.625 MG/GM Vaginal Cream (Estrogens Conjugated)Indicat ions:Vaginal irritation,Atrophi c vaginitis Administer 0.5 g into the vagina at bedtime on Sunday and Sunday only. 42.5 g 1 3 024 Discontinued([place] jaquez preference/disc ontinuation) Ramelteon 8 MG Oral Tablet (Rozerem)Indicatio ns:Insomnia, unspecified type TAKE ONE TABLET AT BEDTIME 30 Tablet 5 3 024 Discontinued(Me dication List Clean Up) Losartan Potassium 50 MG Oral Tablet (Cozaar)Indication s:HTN, goal below 140/90 Take 1 Tablet by mouth daily. 180 Tablet 1 3 024 Discontinued Gabapentin 300 MG Oral Capsule (Neurontin)Indicat ions:Peripheral polyneuropathy,Mark n in both lower extremities TAKE THREE CAPSULES AT BEDTIME 90 Capsule 3 3 024 Discontinued HYDROcodone Bit-Homatrop MBr 5-1.5 MG/5ML Oral Solution (Hydromet) Take 5 mL by mouth every 6 hours as needed for Cough. 0 Discontinued(Pa gisele preference/disc ontinuation) Cefdinir 300 MG Oral Capsule (Omnicef) Take 1 Capsule by mouth in the morning and 1 Capsule before bedtime. 0 3 024 Discontinued(Me dication List Clean Up) Fluticasone Furoate 100 MCG/ACT Inhalation Aerosol Powder Breath Activated (ARNUITY ellipta)Indication s:COPD, moderate (HCC),COPD, group D, by GOLD 2017 classification (HCC) Inhale 1 Puff by mouth in the morning. In addition to anoro. 30 Each 3 Discontinued(Me dication List Clean Up) Anoro Ellipta 62.5-25 MCG/ACT Inhalation Aerosol Powder Breath Activated (umeclidinium-mikey nterol)Indications :COPD, moderate (HCC),COPD, group D, by GOLD 2017 classification (HCC) Inhale 1 Puff by mouth in the morning. 30 Each 3 024 Discontinued(Me dication List Clean Up) guaiFENesin-Codein e 100-10 MG/5ML Oral Solution (Robitussin AC) Take 5 mL by mouth 3 times a day as needed for Cough. 0 024 Discontinued(Pa ulisesnt preference/disc ontinuation) documented as of this encounter (statuses as [...] Last Assessment & Plan: Followed by derm. Wolf has concerns about area in vaginal. Has [...] mRNA, LNP-s, No Pre serve, 2-Dose Series ([employer]) 08/01/2021,07/11/2021,11/14/2020,10/24 COVID-19, MRNA-LNP, 23-24, P F, 30 MCG/0.3 mL, 12 YRS AND ABOVE, IM ([employer] [facility]) 07/23/2023 Covid-19, Mrna, Lnp-s, Pf, B ivalent, 30 Mcg, IM, 12 yrs and above ([employer]) 07/21/2022 Pneumococcal Conjugate Vacc, 13 Valent (Prevnar) 03/16/2015 Pneumococcal Conjugate Vacci ne, 20-valent ([id number]) 07/21/2022 Pneumococcal Polysaccharide PPV23 (Pneumovax) 03/05/2019,07/18/2007 Season [...] as of this encounter Nursing Notes * Liana Strong LPN - 10/05/2023 2:46 PM EST Pt arrived for Udencya injection. Administered in NEGIN. Pt tolerated well. To return in 3 weeks. Discharged in stable condition. documented in this encounter Plan of Treatment Upcoming Encounters Date Type Department Care Team (Late st Contact Info) Description 11/28/2023 4:00 PM EST [facility] [address] [facility] [place] [address] Sarah Vitale RN 132 [facility] [place] [address] 12/10/2023 9:20 AM EDT Office Visit Family [address] [place] [phone] Rhys Humphrey MD [address] [place] [address] [place] [address] 12/17/2023 8:00 AM EDT Laboratory Laboratory [facility] [place] [address] [place] [phone] [place], Lab [facility] [address] [place] [address] 12/17/2023 8:30 AM EDT Office Visit Hematology/Oncology [facility] [place] [address] [place] [phone] Gris Diaz CRNP [address] [place], [place] [address] [address] 12/17/2023 9:00 AM EDT Hem/Onc Treatment [facility]ematology[facility]cology [facility] [place] [facility] [phone] Apple, Chair 5 Hem Onc [address] [place] [address] 12/18/2023 10:45 AM EDT Hem/Onc Treatment Hematology/Oncology [address], [address] [phone] 12/19/2023 9:15 AM EDT Hem/Onc Treatment Hematology/Oncology Treatment, [place] [facility] [phone] Apple, Chair 8 Hem Onc [facility] 200 [facility] [place] [address] 12/26/2023 7:30 AM EDT Office Visit Sleep Disorders Ctr Mariella Kang [place] 132 [facility] [place] [phone] Sosa Freeman CRNP [address] [place] [address] 12/27/2023 11:00 AM EDT Office Visit Cardiology [address] [place] [address] Mi Neil PA-C [address] [place] [address] 01/18/2024 7:20 AM EDT Office Visit Family Medicine [address] [place] [phone] Rhys Humphrey MD [address] [place] [address] [place] [address] 03/18/2024 9:00 AM EDT Nurse Only Ancillary [address] [place] [address] [place], Nurse Annual Wellness [address] [place] [address] [place] [address] Scheduled Procedures Name Priority Associated Diagnoses Date/Ti [...] FOR COPD 08/10/2024 08/10/2023 GFR 11/19/2024 11/19/2023, 01/0 11/2023, 09/17/2023, Additional history exists Albumin/Creatinine Ratio 04/28/2025 04/28/2022 DTaP,Tdap,and Td Vaccines (3 - Td or Tdap) 09/17/2029 09/17/2019, 08/10/2011, 10/01/2001 Zoster Vaccines Completed 04/25/2020, 08/31, 07/22/2012 VITAMIN D LEVEL ONCE IN A LIFETIME-USE SMARTSET# [id number] Completed 06/29/2020, 03/16/2015 Pneumococcal Vaccine: 65+ Years [...] Documents on File Type Date Recorded Patient Optical Glass Wet Inspector Expl anation POLST 10/15/2019 3:17 PM POLST POLST 03/05/2019 POLST FORM Advance Directives and Living Will 01/27/2013 LIVING WILL Advance Directives and Living Will 01/27/2013 LIVING WILL Power of Mysql Dba 01/27/2013 POWER OF A TTORNEY Power of Mysql Dba 01/27/2013 POWER OF A TTORNEY Healthcare Agents on File Name Relationship Healthcare Agent Relationship Communication Cydney Benito Other - (no specific identity) Second Alternate Health Care Agent Anyi More Adult Child Health Care Roberth cooper of Mysql Dba Care Teams Test Borer Helper Relationship Specialty Start Date End Date Rhys Humphrey MD [address] [place] [address] [place] [phone] PCP - General Family Medicine 06/09/21 documented as of this encounter
--- OUTSIDE RECORDS SUMMARY | 2023-12-07 21:37 | External Medical Summary | Summary of Care ---
Author Name Unknown Organization [facility] Address [address] [place] [address] Phone [phone] Care Team Providers Care Juvenile Probation Officer Name Role Phone Ollie Gonzalez MD Primary Care Provide r Reason for Visit * Reason Comments eRx-Medication Refill Encounter Details Date Type Department Care Team (Late st Contact Info) Description 11/27/2023 Refill Family Medicine [address] [place] [phone] Ollie Gonzalez MD [address] [place] [address] [place] [address] HTN, goal below 140/90 Allergies Active Allergy Reactions Criticality Noted Date [...] Each 0 0 Active Nebulizers (NEBULIZER COMPRESSOR) MISCIndications:SEASONAL CLERK D, 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 Use as directed. 1 Each 1 0 Active Iron 325 (65 Fe) MG Oral Tablet Take 1 Tablet by mouth daily. 0 Active Cranberry 500 MG Oral Capsule Take 1 Capsule by mouth in the morning and 1 Capsule before bedtime. 50 Cap 0 1 Active Lcwwigf-Bjyyxhpti-Y inc 333-133-5 MG Oral Tablet Take 1 [...] MOUTH IN THE MORNING 30 Tablet 0 01/04/202 4 Active Gabapentin 300 MG Oral Capsule (Neurontin)Indicati ons:Peripheral polyneuropathy,Pain in both lower extremities TAKE THREE CAPSULES BY MOUTH AT BEDTIME 90 Capsule 3 4 Active levoFLOXacin 500 MG Oral TabletIndications:S mall cell neuroendocrine carcinoma of lung (HCC),Metastasis to mediastinal lymph node (HCC),Chemotherapy- induced neutropenia (HCC) Take 1 Tablet by mouth in the morning. Start on day 7 of chemo for total 10 days. 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 30 Tablet 1 4 Active Albuterol Sulfate HFA 108 (90 Base) MCG/ACT Inhalation Aerosol SolutionIndications :COPD, moderate ([facility]) Inhale 2 Puffs by mouth every 4 hours as needed for Cough, Shortness of Breath or Wheezing. 18 g 5 4 Active Ipratropium-Albuter ol 0.5-2.5 (3) MG/3ML Inhalation Solution (Duoneb)Indications :COPD, group D, by GOLD 2017 classification ([facility]) Inhale 3 mL via nebulizer every 6 hours as needed for Shortness of Breath or Wheezing. 360 mL 3 4 Active Budesonide 0.5 MG/2ML Inhalation Suspension (Pulmicort) Inhale 0.5 mg via nebulizer in the morning and 0.5 mg before bedtime. 60 mL 2 4 Active Formoterol Fumarate 20 MCG/2ML Inhalation Nebulization Solution Inhale 1 Inhalation by mouth in the morning. 100 mL 1 4 Active Losartan Potassium 50 MG Oral Tablet (Cozaar)Indications :HTN, goal below 140/90 Take 1 Tablet by mouth in the morning. 90 Tablet 1 4 Active Losartan Potassium 50 MG Oral Tablet (Cozaar)Indications :HTN, goal below 140/90 Take 1 Tablet by mouth daily. 180 Tablet 1 3 11/28/19 24 Discontinued documented as of this encounter [...] mRNA, LNP-s, No Pre serve, 2-Dose Series (Unigo) 08/01/2021,07/11/2021,11/14/2020,10/24 COVID-19, MRNA-LNP, 23-24, P F, 30 MCG/0.3 mL, 12 YRS AND ABOVE, IM (FatSkunk-Comirnat) 07/23/2023 Covid-19, Mrna, Lnp-s, Pf, B ivalent, 30 Mcg, IM, 12 yrs and above (Unigo) 07/21/2022 Pneumococcal Conjugate Vacc, 13 Valent (Prevnar) 03/16/2015 Pneumococcal Conjugate Vacci ne, 20-valent ([id number]) 07/21/2022 Pneumococcal Polysaccharide PPV23 (Pneumovax) 03/05/2019,07/18/2007 Season [...] Encounter - Ollie Gonzalez MD - 11/28/2023 7:59 AM EST Signed Prescriptions: Disp Refills Losartan Potassium 50 MG Oral Tablet (Coza*90 Tab*1 Sig: Take 1 Tablet by mouth in the morning. Authorizing Provider: OLLIE GONZALEZ * Telephone Encounter - Ciara Camargo [facility] - 11/27/2023 4:50 PM EST Pending Prescriptions: Disp Refills Losartan Potassium 50 MG Oral Tablet (Coza* Sig: Take 1 Tablet by mouth. * Telephone Encounter - Ciara Camargo [facility] - 11/27/2023 4:44 PM EST Losartan dose decreased by [facility] 07/09/23, however Rx did not e-scribe. Pharmacy does compliance pkging for pt - Rx being filled as Losartan 50 mg twice daily (old dose). Please review and advise regarding appropriate dose, and please submit new Rx to pharmacy. Thank you, Ciara Camargo, PharmD Clinical Pharmacist [facility] ([facility]) (formerly Telepharmacy) 11/27/23 4:48 PM [phone] documented in this encounter Plan of Treatment Upcoming Encounters Date Type Department Care Team (Late st Contact Info) Description 11/28/2023 4:00 PM EST Home Visit [facility] [address] [place] [address] Sarah Vitale, RN [address] [place] [address] 12/10/2023 9:20 AM EDT Office Visit Family [address] [place] [phone] Ollie Gonzalez MD [address] [place] [address] [place] [address] 12/17/2023 8:00 AM EDT Laboratory Laboratory [facility] [place] [address] [facility] [place] [phone] Apple, Lab [facility] [address] [facility] [place] [address] 12/17/2023 8:30 AM EDT Office Visit Hematology/Oncology [facility] [place] [address] [facility] [place] [phone] Gris Diaz CRNP [address] [facility] [place] [address] 12/17/2023 9:00 AM EDT Hem/Onc Treatment Hematology/Oncology Treatment, [address] [phone] Apple, Chair 5 Hem On[address] [place] [address] 12/18/2023 10:45 AM EDT Hem/Onc Treatment Hematology/Oncology Treatment, [address] [phone] 12/19/2023 9:15 AM EDT Hem/Onc Treatment Hematology/Oncology Treatment, [address] [phone] Apple, Chair 8 Hem Onc [address] [place] [address] 12/26/2023 7:30 AM EDT Office Visit [facility] Disorders [facility]tr [facility] [place] [address] [place] [phone] Sosa Freeman CRNP [address] [place] [place] [address] 12/27/2023 11:00 AM EDT Office Visit Cardiology [address] [place] [address] Mi Neil PA-C [address] [place] [address] 01/18/2024 7:20 AM EDT Office Visit Family Medicine [address] [place] [phone] Ollie Gonzalez MD [address] [place] [address] [place] [address] 03/18/2024 9:00 AM EDT Nurse Only Ancillary [address] [place] [address] [place], Nurse Annual [address] [place] [address] Scheduled Procedures Name Priority Associated Diagnoses Date/Ti [...] D LEVEL ONCE IN A LIFETIME-USE SMARTSET# [id number] Completed 06/29/2020, 03/16/2015 Pneumococcal Vaccine: 65+ Years [...] Documents on File Type Date Recorded Patient Production Operator Expl anation POLST 10/15/2019 3:17 PM POLST POLST 03/05/2019 POLST FORM Advance Directives and Living Will 01/27/2013 LIVING WILL Advance Directives and Living Will 01/27/2013 LIVING WILL Power of Edge Banding Off Bearer 01/27/2013 POWER OF A TTORNEY Power of Edge Banding Off Bearer 01/27/2013 POWER OF A TTORNEY Healthcare Agents on File Name Relationship Healthcare Agent Relationship Communication Cydney Benito Other - (no specific identity) Second Alternate Health Care Agent Anyi More Adult Child Health Care Roberth r of Edge Banding Off Bearer Care Teams Juvenile Probation Officer Relationship Specialty Start Date End Date Ollie Gonzalez MD [address] [place] [address] [place] [phone] PCP - General Family Medicine 06/09/21 documented as of this encounter
--- OUTSIDE RECORDS SUMMARY | 2023-12-07 21:37 | External Medical Summary | Summary of Care ---
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) Procedures FL CARBOPLATIN INJECTION FL FOSAPREPITANT INJECTION FL ETOPOSIDE 10 MG INJ FL INJ, ATEZOLIZUMAB,10 MG FL INJECTION, UDENYCA 0.5 MG Martínez Lopes MD [address] [place] [address] [place] [address] Anc Hem/Onc [address] [phone] Referral ID Status Reason Start Date Expiration Date V isits Requested Visits Authorized [id number] Authorized 09/21/2023 03/22/2024 [id number] Encounter Details Date Type Department Care Team (Latest Contact Info) Description 10/03/2023 1:15 PM EST Hem/Onc Treatment Hematology/Oncolog y Treatment, [address] [phone] Apple, Chair 1 Hem Onc Scenery [address] [place], [place] [address] Encounter for antineoplastic chemotherapy*; Small cell neuroendocrine [...] mouth daily. 180 Tablet 1 3 Active Clobetasol Propionate 0.05 % External [...] Tablet (Desyrel)Indicatio ns:Chronic insomnia,Major depression in remission ([facility]) Take 1 Tablet by mouth at bedtime. 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 90 Tablet 3 3 Active Albuterol Sulfate HFA 108 (90 Base) MCG/ACT Inhalation Aerosol SolutionIndication s:COPD, moderate ([facility]) Inhale 2 Puffs by mouth every 4 hours as needed for Cough, Shortness of Breath or Wheezing. 18 g 5 3 024 Discontinued(Re fill) Ipratropium-Albute rol 0.5-2.5 (3) MG/3ML Inhalation Solution (Duoneb)Indication s:COPD, group D, by GOLD 2017 classification ([facility]) Inhale 3 mL via nebulizer every 6 hours as needed for Shortness of Breath or Wheezing. 360 mL 3 3 024 Discontinued(Re fill) Atorvastatin Calcium 40 MG Oral Tablet (Lipitor)Indicatio ns:Dyslipidemia, goal LDL below 100 Take 1 Tablet by mouth daily. 90 Tablet 1 3 024 Discontinued Clopidogrel Bisulfate 75 MG Oral Tablet (pLAVix)Indication s:TIA (transient ischemic attack) Take 1 Tablet by mouth daily. 90 Tablet 1 3 024 Discontinued(Dc dication List Clean Up) Premarin 0.625 MG/GM Vaginal Cream (Estrogens Conjugated)Indicat ions:Vaginal irritation,Atrophi c vaginitis Administer 0.5 g into the vagina at bedtime on Sunday and Sunday only. 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 0 024 Discontinued(Pa ulisesnt preference/disc ontinuation) Cefdinir 300 MG Oral Capsule [...] In addition to anoro. 30 Each 3 024 Discontinued(Me dication List Clean Up) Anoro Ellipta 62.5-25 MCG/ACT Inhalation Aerosol Powder Breath Activated (umeclidinium-mikey nterol)Indications :COPD, moderate (HCC),COPD, group D, by GOLD 2017 classification (HCC) Inhale 1 Puff by mouth in the morning. 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 30 Tablet 0 3 024 Discontinued guaiFENesin-Codein e 100-10 MG/5ML Oral Solution (Robitussin AC) Take 5 mL by mouth 3 times a day as needed for Cough. 0 024 Discontinued(Pa tient preference/disc ontinuation) documented as of this encounter [...] mRNA, LNP-s, No Pre serve, 2-Dose Series (SpunLive) 08/01/2021,07/11/2021,11/14/2020,10/24 COVID-19, MRNA-LNP, 23-24, P F, 30 MCG/0.3 mL, 12 YRS AND ABOVE, IM ([facility] 07/23/2023 Covid-19, Mrna, Lnp-s, Pf, B ivalent, 30 Mcg, IM, 12 yrs and above ([employer]unLive) 07/21/2022 Pneumococcal Conjugate Vacc, 13 Valent (Prevnar) 03/16/2015 Pneumococcal Conjugate Vacci ne, 20-valent ([id number]) 07/21/2022 Pneumococcal Polysaccharide PPV23 (Pneumovax) 03/05/2019,07/18/2007 Season [...] Description 11/28/2023 4:00 PM EST Home Visit [facility] at [facility] [address] [facility] [place] [address] Sarah Vitale, RN [address] [facility] [place] [address] 12/10/2023 9:20 AM EDT Office Visit Family [address] [place] [phone] Rhys Humphrey MD [address] [place] [address] [place] [address] 12/17/2023 8:00 AM EDT Laboratory Laboratory [facility] [place] [address] [place], [place] [phone] Apple, Lab [facility] [address] [facility] [place], [place] [address] 12/17/2023 8:30 AM EDT Office Visit Hematology/Oncology [facility] [place] [address] [place], [place] [phone] Gris Diaz CRNP [address] [facility] [place] [address] 12/17/2023 9:00 AM EDT Hem/Onc Treatment Hematology/Oncology Treatment, [address], [place] [phone] Apple, Chair 5 Hem Onc [address] [place] [address] 12/18/2023 10:45 AM EDT Hem/Onc Treatment Hematology/Oncology Treatment, [address], [place] [phone] 12/19/2023 9:15 AM EDT Hem/Onc Treatment Hematology/Oncology Treatment, [address], [place] [phone] Apple, Chair 8 Hem Onc [address] [place], [place] [address] 12/26/2023 7:30 AM EDT Office Visit Sleep Disorders Ctr [facility] [address] [place] [phone] Sosa Freeman CRNP [address] [place] [address] 12/27/2023 11:00 AM EDT Office Visit Cardiology [address] [place] [address] Mi Neil PA-C [address] [place] [address] 01/18/2024 7:20 AM EDT Office Visit Family Medicine [address] [place] [phone] Rhys Humphrey MD [address] [place] [address] [place] [address] 03/18/2024 9:00 AM EDT Nurse Only Ancillary [address] [place] [address] [place], Nurse Annual Wellness [address] [place] [address] [place] [address] Scheduled Procedures Name Priority Associated Diagnoses Date/Ti [...] D LEVEL ONCE IN A LIFETIME-USE SMARTSET# [id number] Completed 06/29/2020, 03/16/2015 Pneumococcal Vaccine: 65+ Years [...] 2:12 PM EST 140 mg 500 mL/hr hEParin 100 UNIT/ML Lock Flush inj 500 Units 500 Units (5 mL), IV Lock, PRN Other, IV Flush, Starting on Sun10/03/23 at 1343, Until Sun10/03/23 at 1928, For 24 hours, Do not flush if lock, PICC, or central line not in place; IV infusing or unable to flush. Given 10/03/2023 3:14 PM EST 500 Units NSS infusion Intravenous, at 50 mL/hr, PRN, Starting on Sun10/03/23 at 1445, Until Sun10/03/23 at 1928, Maintenance line Start Infusion 10/03/2023 1:40 PM EST 50 mL/hr ondansetron (Zofran) tab 8 mg 8 mg, Oral, ONCE, On Sun10/03/23 at 1445, For 1 dose, Give 30 minutes prior to chemotherapy. Given 10/03/2023 1:50 PM EST 8 mg sodium chloride 0.9 % flush central line 10 mL 10 mL, IV Push, PRN Other, IV Flush, Starting on Sun10/03/23 at 1343, Until Sun10/03/23 at 1928, For 24 hours, Do not flush if lock, PICC, or central line not in place; IV infusing or unable to flush. Given 10/03/2023 3:14 PM EST 10 mL documented in this encounter Advance Directives Documents on File Type Date Recorded Patient Documentation Writer Expl anation POLST 10/15/2019 3:17 PM POLST POLST 03/05/2019 POLST FORM Advance Directives and Living Will 01/27/2013 LIVING WILL Advance Directives and Living Will 01/27/2013 LIVING WILL Power of Test Boring Crew Chief 01/27/2013 POWER OF A TTORNEY Power of Test Boring Crew Chief 01/27/2013 POWER OF A TTORNEY Healthcare Agents on File Name Relationship Healthcare Agent Relationship Communication Cydney Benito Other - (no specific identity) Second Alternate Health Care Agent Anyi More Adult Child Health Care Roberth r of Test Boring Crew Chief Care Teams Riding Teacher Relationship Specialty Start Date End Date Rhys Humphrey MD [address] [place] [address] [place] [phone] PCP - General Family Medicine 06/09/21 documented as of this encounter
--- OUTSIDE RECORDS SUMMARY | 2023-12-07 21:38 | External Medical Summary | Summary of Care ---
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) Procedures DE CARBOPLATIN INJECTION DE FOSAPREPITANT INJECTION DE ETOPOSIDE 10 MG INJ DE INJ, ATEZOLIZUMAB,10 MG DE INJECTION, UDENYCA 0.5 MG Martínez Lopes MD [address] [place] [id number] Anc Hem/Onc [address] [address] Referral ID Status Reason Start Date Expiration Date V isits Requested Visits Authorized [id number] Authorized 09/21/2023 03/22/2024 999 [id number] Encounter Details Date Type Department Care Team (Latest Contact Info) Description 10/04/2023 1:15 PM EST Hem/Onc Treatment Hematology/Oncolog y Treatment, [address] [place] [phone] Apple, Chair 7 Hem On[facility] Sc[facility] [place] [address] Encounter for antineoplastic chemotherapy*; 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 90 Tablet 3 3 Active Atorvastatin Calcium 40 MG Oral Tablet (Lipitor)Indicatio ns:Dyslipidemia, goal LDL below 100 TAKE ONE TABLET BY MOUTH EVERY DAY 90 Tablet 2 4 Active Albuterol Sulfate HFA 108 (90 Base) MCG/ACT Inhalation Aerosol SolutionIndication s:COPD, moderate ([facility]) Inhale 2 Puffs by mouth every 4 hours as needed for Cough, Shortness of Breath or Wheezing. 18 g 5 3 024 Discontinued(Re fill) Ipratropium-Albute rol 0.5-2.5 (3) MG/3ML Inhalation Solution (Duoneb)Indication s:COPD, group D, by GOLD 2017 classification ([facility]) Inhale 3 mL via nebulizer every 6 hours as needed for Shortness of Breath or Wheezing. 360 mL 3 3 024 Discontinued(Re fill) Clopidogrel Bisulfate 75 MG Oral Tablet (pLAVix)Indication s:TIA (transient ischemic attack) Take 1 Tablet by mouth daily. 90 Tablet 1 3 024 Discontinued(Nd dication List Clean Up) Premarin 0.625 MG/GM Vaginal Cream (Estrogens Conjugated)Indicat ions:Vaginal irritation,Atrophi c vaginitis Administer 0.5 g into the vagina at bedtime on Sunday and Sunday only. 42.5 g 1 3 024 Discontinued([place] ajquez preference/disc ontinuation) Ramelteon 8 MG Oral Tablet [...] Cough. 0 024 Discontinued(Pa tient preference/disc ontinuation) Cefdinir 300 MG Oral Capsule [...] as of this encounter (statuses as of 11/26/2023) Active Problems Problem Noted Date Diagnosed Date [...] Medication Regimen o Other: anoro, arnuity, singulair, abdoulbs Self-Management plan o Prednisone 40mg daily [...] as of this encounter (statuses as of 11/26/2023) Resolved Problems Problem Noted Date Diagnosed Date [...] as of this encounter (statuses as of 11/26/2023) Immunizations Name Administration Dates Next Due COVID-19 mRNA, LNP-s, No Pre serve, 2-Dose Series (Zettics) 08/01/2021,07/11/2021,11/14/2020,10/24 COVID-19, MRNA-LNP, 23-24, P F, 30 MCG/0.3 mL, 12 YRS AND ABOVE, IM ([facility]) 07/23/2023 Covid-19, Mrna, Lnp-s, Pf, B ivalent, 30 Mcg, IM, 12 yrs and above (Zettics) 07/21/2022 Pneumococcal Conjugate Vacc, 13 Valent (Prevnar) 03/16/2015 Pneumococcal Conjugate Vacci ne, 20-valent ([id number]) 07/21/2022 Pneumococcal Polysaccharide PPV23 (Pneumovax) 03/05/2019,07/18/2007 Season [...] in this encounter Nursing Notes * Gi Mares, RAYNA - 10/04/2023 4:24 PM EST Pt completed [...] Description 11/28/2023 4:00 PM EST Home Visit [facility] [address] [facility] [place] [address] Sarah Vitale RN 132 [facility] [place] [address] 12/10/2023 9:20 AM EDT Office Visit Family Medicine [address] [place] [phone] Rhys Humphrey MD [address] [place] [address] [place] [address] 12/17/2023 8:00 AM EDT [facility] Stevenson [address] [place] [phone] Apple, Lab Scenery [address] [place] [address] 12/17/2023 8:30 AM EDT Office Visit Hematology/Oncology [facility] [place] [address] [facility] [place] [phone] Gris Diaz CRNP [address] [place] [address] 12/17/2023 9:00 AM EDT Hem/Onc Treatment Hematology/Oncology Treatment, [address] [phone] Apple, Chair 5 Hem On[address] [place] [address] 12/18/2023 10:45 AM EDT Hem/Onc Treatment Hematology/Oncology Treatment, [address] [phone] 12/19/2023 9:15 AM EDT Hem/Onc Treatment Hematology/Oncology Treatment, [address] [phone] Apple, Chair 8 Hem Onc [address] [place] [address] 12/26/2023 7:30 AM EDT Office Visit Sleep Disorders [facility] [address] [place] [phone] Sosa Freeman CRNP [address] [place] [address] 12/27/2023 11:00 AM EDT Office Visit Cardiology [address] [place] [address] Mi Neil PA-C [address] [place] [address] 01/18/2024 7:20 AM EDT Office Visit Family Medicine [address] [place] [phone] Rhys Humphrey MD [address] [place] [address] [place] [address] 03/18/2024 9:00 AM EDT Nurse Only Ancillary [place] [place] [address] [place], Nurse Annual Wellness [address] [place] [address] [place] [address] Scheduled Procedures Name Priority Associated Diagnoses Date/Ti [...] D LEVEL ONCE IN A LIFETIME-USE SMARTSET# [id number] Completed 06/29/2020, 03/16/2015 Pneumococcal Vaccine: 65+ Years [...] 1:58 PM EST 140 mg 500 mL/hr NSS infusion Intravenous, at 50 mL/hr, PRN, Starting on Dania 10/04/23 at 1430, Until Dania 10/04/23 at 2026, Maintenance line Start Infusion 10/04/2023 1:41 PM EST 50 mL/hr ondansetron (Zofran) tab 8 mg 8 mg, Oral, ONCE, On Dania 10/04/23 at 1430, For 1 dose, Give 30 minutes prior to chemotherapy. Given 10/04/2023 1:40 PM EST 8 mg documented in this encounter Advance Directives Documents on File Type Date Recorded Patient Agricultural Sciences Professor Expl anation POLST 10/15/2019 3:17 PM POLST POLST 03/05/2019 POLST FORM Advance Directives and Living Will 01/27/2013 LIVING WILL Advance Directives and Living Will 01/27/2013 LIVING WILL Power of Pass Worker 01/27/2013 POWER OF A TTORNEY Power of Pass Worker 01/27/2013 POWER OF A TTORNEY Healthcare Agents on File Name Relationship Healthcare Agent Relationship Communication Cydney Benito Other - (no specific identity) Second Alternate Health Care Agent Anyi More Adult Child Health Care Roberth cooper of Pass Worker Care Teams Diagnostic Sales Specialist Relationship Specialty Start Date End Date Rhys Humphrey MD [address] [place] [address] [place] [address] PCP - General Family Medicine 06/09/21 documented as of this encounter
--- OUTSIDE RECORDS SUMMARY | 2023-12-07 21:38 | External Medical Summary | Summary of Care ---
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) Procedures [place] CARBOPLATIN INJECTION [place] FOSAPREPITANT INJECTION [place] ETOPOSIDE 10 MG INJ [place] INJ, ATEZOLIZUMAB,10 MG [place] INJECTION, UDENYCA 0.5 MG Martínez Lopes MD 200 [facility] [place] [address] Anc Hem/Onc Scenery [place] [address] [place] [address] Referral ID Status Reason Start Date Expiration Date V isits Requested Visits Authorized [id number] Authorized 09/21/2023 03/22/2024 999 [id number] Encounter Details Date Type Department Care Team (Latest Contact Info) Description 10/02/2023 9:45 AM EST Hem/Onc Treatment Hematology/Oncolog y Treatment, [place] [address] [place], [place] [address] Apple, Chair 1 Hem Onc Scenery [address] [place], [place] [address] Encounter for antineoplastic chemotherapy*; 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 90 Tablet 3 3 Active Albuterol Sulfate HFA 108 (90 Base) MCG/ACT Inhalation Aerosol SolutionIndication s:COPD, moderate ([facility]) Inhale 2 Puffs by mouth every 4 hours as needed for Cough, Shortness of Breath or Wheezing. 18 g 5 3 024 Discontinued(Re fill) Ipratropium-Albute rol 0.5-2.5 (3) MG/3ML Inhalation Solution (Duoneb)Indication s:COPD, group D, by GOLD 2017 classification ([facility] [...] mouth daily. 90 Tablet 1 3 024 Discontinued(Ky dication List Clean Up) Premarin 0.625 MG/GM Vaginal Cream (Estrogens Conjugated)Indicat ions:Vaginal irritation,Atrophi c vaginitis Administer 0.5 g into the vagina at bedtime on Sunday and Sunday only. 42.5 g 1 3 024 Discontinued(Pa gisele preference/disc ontinuation) Ramelteon 8 MG Oral Tablet [...] addition to anoro. 30 Each 11 3 024 Discontinued(Me dication [...] as of this encounter (statuses as of 11/27/2023) Active Problems Problem Noted Date Diagnosed Date [...] as of this encounter (statuses as of 11/27/2023) Resolved Problems Problem Noted Date Diagnosed Date [...] as of this encounter (statuses as of 11/27/2023) Immunizations Name Administration Dates Next Due COVID-19 mRNA, LNP-s, No Pre serve, 2-Dose Series ([facility] [facility]) 08/01/2021,07/11/2021,11/14/2020,10/24 COVID-19, MRNA-LNP, 23-24, P F, 30 MCG/0.3 mL, 12 YRS AND ABOVE, IM ([facility]) 07/23/2023 Covid-19, Mrna, Lnp-s, Pf, B ivalent, 30 Mcg, IM, 12 yrs and above ([facility]) 07/21/2022 Pneumococcal Conjugate Vacc, 13 Valent (Prevnar) 03/16/2015 Pneumococcal Conjugate Vacci ne, 20-valent ([id number]) 07/21/2022 Pneumococcal Polysaccharide PPV23 (Pneumovax) 03/05/2019,07/18/2007 Season [...] in this encounter Nursing Notes * Mariel Bergman, RN - 10/02/2023 2:06 PM EST Goals: [...] Description 11/28/2023 4:00 PM EST Home Visit [facility], [address] [place] [address] Sarah Vitale RN [address] [place] [address] 12/10/2023 9:20 AM EDT Office Visit [address] [place] [phone] Rhys Humphrey MD [address] [place] [address] [place] [address] 12/17/2023 8:00 AM EDT Laboratory Laboratory [facility] [place] [facility] [place] [phone] Apple, Lab [facility] 200 [facility] [place] [address] 12/17/2023 8:30 AM EDT Office Visit Hematology/Oncology [facility] [address] [place] [phone] Gris Diaz CRNP [address] [place] [address] 12/17/2023 9:00 AM EDT Hem/Onc Treatment Hematology/Oncology [address], [address] [phone] Apple, Chair [address] Hem On[address] [place] [address] 12/18/2023 10:45 AM EDT Hem/Onc Treatment Hematology/Oncology Treatment, [address] [phone] 12/19/2023 9:15 AM EDT Hem/Onc Treatment Hematology/Oncology Treatment, [address] [phone] Apple, Chair 8 Hem Onc [facility] [address] [place] [address] [place] [address] 12/26/2023 7:30 AM EDT Office Visit Sleep Disorders [facility]tr [facility] [address] [place] [phone] Sosa Freeman CRNP [address] [place] [address] 12/27/2023 11:00 AM EDT Office Visit Cardiology [address] [place] [address] Mi Neil PA-C [address] [place] [address] 01/18/2024 7:20 AM EDT Office Visit Family Medicine [address] [place] [phone] Rhys Humphrey MD [address] [place] [address] [place] [address] 03/18/2024 9:00 AM EDT Nurse Only Ancillary [address] [place] [address] [place], Nurse Annual [address] [place] [address] Scheduled Procedures Name Priority Associated Diagnoses Date/Ti [...] D LEVEL ONCE IN A LIFETIME-USE SMARTSET# [id number] Completed 06/29/2020, 03/16/2015 Pneumococcal Vaccine: 65+ Years [...] 10:22 AM EST 150 mg 500 mL/hr hEParin 100 UNIT/ML Lock Flush inj 500 Units 500 Units (5 mL), IV Lock, PRN Other, IV Flush, Starting on Sun10/02/23 at 1020, Until Sun10/02/23 at 1810, For 24 hours, Do not flush if lock, PICC, or central line not in place; IV infusing or unable to flush. Given 10/02/2023 1:55 PM EST 500 Units NSS infusion Intravenous, at 50 mL/hr, PRN, Starting on Sun10/02/23 at 1130, Until Sun10/02/23 at 1810, Maintenance line Start Infusion 10/02/2023 10:20 AM EST 50 mL/hr sodium chloride 0.9 % flush central line 10 mL 10 mL, IV Push, PRN Other, IV Flush, Starting on Sun10/02/23 at 1020, Until Sun10/02/23 at 1810, For 24 hours, Do not flush if lock, PICC, or central line not in place; IV infusing or unable to flush. Given 10/02/2023 1:55 PM EST 10 mL documented in this encounter Advance Directives Documents on File Type Date Recorded Patient Field Technical Specialist Expl anation POLST 10/15/2019 3:17 PM POLST POLST 03/05/2019 POLST FORM Advance Directives and Living Will 01/27/2013 LIVING WILL Advance Directives and Living Will 01/27/2013 LIVING WILL Power of Manager Support 01/27/2013 POWER OF A TTORNEY Power of Manager Support 01/27/2013 POWER OF A TTORNEY Healthcare Agents on File Name Relationship Healthcare Agent Relationship Communication Cydney Benito Other - (no specific identity) Second Alternate Health Care Agent Anyi More Adult Child Health Care Roberth r of Manager Support Care Teams Brake Engineer Relationship Specialty Start Date End Date Rhys Humphrey MD [address] [place] [address] [place] [address] PCP - General Family Medicine 06/09/21 documented as of this encounter
--- OUTSIDE RECORDS SUMMARY | 2023-12-07 21:38 | External Medical Summary | Summary of Care ---
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) Procedures [place] CARBOPLATIN INJECTION [place] FOSAPREPITANT INJECTION [place] ETOPOSIDE 10 MG INJ [place] INJ, ATEZOLIZUMAB,10 MG [place] INJECTION, UDENYCA 0.5 MG Martínez Lopes MD [address] [place] [address] Anc Hem/Onc [address] [address] Referral ID Status Reason Start Date Expiration Date V isits Requested Visits Authorized [id number] Authorized 09/21/2023 03/22/2024 999 [id number] Encounter Details Date Type Department Care Team (Latest Contact Info) Description 10/04/2023 1:15 PM EST Hem/Onc Treatment Hematology/Oncolog y Treatment, [address] [place] [phone] Apple, Chair 7 Hem [facility] Scenery [facility] [place] [address] Encounter for antineoplastic chemotherapy*; Small cell neuroendocrine [...] Tablet (Desyrel)Indicatio ns:Chronic insomnia,Major depression in remission ([facility]) Take 1 Tablet by mouth at bedtime. 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 90 Tablet 3 3 Active Atorvastatin Calcium 40 MG Oral Tablet (Lipitor)Indicatio ns:Dyslipidemia, goal LDL below 100 TAKE ONE TABLET BY MOUTH EVERY DAY 90 Tablet 2 4 Active Albuterol Sulfate HFA 108 (90 Base) MCG/ACT Inhalation Aerosol SolutionIndication s:COPD, moderate ([facility]) Inhale 2 Puffs by mouth every 4 hours as needed for Cough, Shortness of Breath or Wheezing. 18 g 5 3 024 Discontinued(Re fill) Ipratropium-Albute rol 0.5-2.5 (3) MG/3ML Inhalation Solution (Duoneb)Indication s:COPD, group D, by GOLD 2017 classification ([facility]) Inhale 3 mL via nebulizer every 6 hours as needed for Shortness of Breath or Wheezing. 360 mL 3 3 024 Discontinued(Re fill) Clopidogrel Bisulfate 75 MG Oral Tablet (pLAVix)Indication s:TIA (transient ischemic attack) Take 1 Tablet by mouth daily. 90 Tablet 1 3 024 Discontinued(Ne dication List Clean Up) Premarin 0.625 MG/GM [...] mRNA, LNP-s, No Pre serve, 2-Dose Series ([facility]) 08/01/2021,07/11/2021,11/14/2020,10/24 COVID-19, MRNA-LNP, 23-24, P F, 30 MCG/0.3 mL, 12 YRS AND ABOVE, IM ([facility]) 07/23/2023 Covid-19, Mrna, Lnp-s, Pf, B ivalent, 30 Mcg, IM, 12 yrs and above ([facility]) 07/21/2022 Pneumococcal Conjugate Vacc, 13 Valent (Prevnar) 03/16/2015 Pneumococcal Conjugate Vacci ne, 20-valent ([id number]) 07/21/2022 Pneumococcal Polysaccharide PPV23 (Pneumovax) 03/05/2019,07/18/2007 Season [...] Description 11/28/2023 4:00 PM EST Home Visit [facility] 132 [facility] [place] [address] Sarah Vitale RN 132 [facility] [place] [address] 12/10/2023 9:20 AM EDT Office Visit Family Medicine [address] [place] [phone] Rhys Humphrey MD [address] [place] [address] [place] [address] 12/17/2023 8:00 AM EDT [facility] Stevenson [address] [place] [phone] Apple, Lab Scenery [address] [place] [address] 12/17/2023 8:30 AM EDT Office Visit Hematology/Oncology [facility] [place] 200 [facility] [place] [phone] Gris Diaz CRNP [address] [place] [address] 12/17/2023 9:00 AM EDT Hem/Onc Treatment Hematology/Oncology Treatment, [address] [phone] Apple, Chair 5 Hem Onc [address] [place] [address] 12/18/2023 10:45 AM EDT Hem/Onc Treatment Hematology/Oncology Treatment, [address] [phone] 12/19/2023 9:15 AM EDT Hem/Onc Treatment Hematology/Oncology Treatment, [address] [phone] Apple, Chair 8 Hem Onc [address] [place] [address] 12/26/2023 7:30 AM EDT Office Visit Sleep Disorders [facility] [address] [place] [phone] Sosa Freeman CRNP [address] [place] [address] 12/27/2023 11:00 AM EDT Office Visit Cardiology [address] [place] [address] Mi Neil PA-C [address] [place] [address] 01/18/2024 7:20 AM EDT Office Visit Family Medicine [address] [place] [phone] Rhys Humphrey MD [address] [place] [address] [place] [address] 03/18/2024 9:00 AM EDT Nurse Only Ancillary [place] [place] [address] [place], Nurse Annual Wellness [address] [place] [address] [place] [address] Scheduled Procedures Name Priority Associated Diagnoses Date/Ti [...] D LEVEL ONCE IN A LIFETIME-USE SMARTSET# [id number] Completed 06/29/2020, 03/16/2015 Pneumococcal Vaccine: 65+ Years [...] Documents on File Type Date Recorded Patient Keg Varnisher Expl anation POLST 10/15/2019 3:17 PM POLST POLST 03/05/2019 POLST FORM Advance Directives and Living Will 01/27/2013 LIVING WILL Advance Directives and Living Will 01/27/2013 LIVING WILL Power of Gasoline Truck Crane Operator 01/27/2013 POWER OF A TTORNEY Power of Gasoline Truck Crane Operator 01/27/2013 POWER OF A TTORNEY Healthcare Agents on File Name Relationship Healthcare Agent Relationship Communication Cydney Benito Other - (no specific identity) Second Alternate Health Care Agent Anyi More Adult Child Health Care Roberth cooper of Gasoline Truck Crane Operator Care Teams Regrind Mill Operator Relationship Specialty Start Date End Date Rhys Humphrey MD [address] [place] [address] [place] [address] PCP - General Family Medicine 06/09/21 documented as of this encounter
--- OUTSIDE RECORDS SUMMARY | 2023-12-07 21:38 | External Medical Summary | Summary of Care ---
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) Procedures MD CARBOPLATIN INJECTION MD FOSAPREPITANT INJECTION MD ETOPOSIDE 10 MG INJ MD INJ, ATEZOLIZUMAB,10 MG MD INJECTION, UDENYCA 0.5 MG Martínez Lopes MD 200 [place] [address] Anc Hem/Onc [address] [place] [address] Referral ID Status Reason Start Date Expiration Date V isits Requested Visits Authorized [id number] Authorized 09/21/2023 03/22/2024 999 999 Encounter Details Date Type Department Care Team (Latest Contact Info) Description 10/05/2023 3:00 PM EST Immunization/ Injection Hematology/Oncology Treatment, [address] [address] Nurse, Med 4 200 [facility], [place] [address] Encounter for antineoplastic chemotherapy*; Small cell neuroendocrine [...] Base) MCG/ACT Inhalation Aerosol SolutionIndication s:COPD, moderate ([facility]) Inhale 2 Puffs by mouth every 4 hours as needed for Cough, Shortness of Breath or Wheezing. 18 g 5 3 024 Discontinued(Re fill) Ipratropium-Albute rol 0.5-2.5 (3) MG/3ML Inhalation Solution (Duoneb)Indication s:COPD, group D, by GOLD 2017 classification ([facility]) Inhale 3 mL via nebulizer every 6 hours as needed for Shortness of Breath or Wheezing. 360 mL 3 3 024 Discontinued(Re fill) Clopidogrel Bisulfate 75 MG Oral Tablet (pLAVix)Indication s:TIA (transient ischemic attack) Take 1 Tablet by mouth daily. 90 Tablet 1 3 024 Discontinued(Ak dication List Clean Up) Premarin 0.625 MG/GM Vaginal Cream (Estrogens Conjugated)Indicat ions:Vaginal irritation,Atrophi c vaginitis Administer 0.5 g into the vagina at bedtime on Sunday and Sunday only. 42.5 g 1 3 024 Discontinued(Pa tient preference/disc ontinuation) Ramelteon 8 MG Oral Tablet [...] hours as needed for Cough. 0 Discontinued(Pa tient preference/disc ontinuation) Cefdinir 300 MG Oral Capsule (Omnicef) Take 1 Capsule by mouth in the morning and 1 Capsule before bedtime. 0 3 Discontinued(Me dication List Clean Up) Fluticasone Furoate [...] a day as needed for Cough. 0 Discontinued(Pa tient preference/disc ontinuation) documented as of [...] mRNA, LNP-s, No Pre serve, 2-Dose Series ([employer]) 08/01/2021,07/11/2021,11/14/2020,10/24 COVID-19, MRNA-LNP, 23-24, P F, 30 MCG/0.3 mL, 12 YRS AND ABOVE, IM ([facility]) 07/23/2023 Covid-19, Mrna, Lnp-s, Pf, B ivalent, 30 Mcg, IM, 12 yrs and above ([facility]) 07/21/2022 Pneumococcal Conjugate Vacc, 13 Valent (Prevnar) 03/16/2015 Pneumococcal Conjugate Vacci ne, 20-valent ([id number]) 07/21/2022 Pneumococcal Polysaccharide PPV23 (Pneumovax) 03/05/2019,07/18/2007 Season [...] Pt arrived for Udencya injection. Administered in ENGIN. Pt tolerated well. To return in 3 weeks. Discharged in stable condition. documented in this encounter Plan of Treatment Upcoming Encounters Date Type Department Care Team (Late st Contact Info) Description 11/28/2023 4:00 PM EST Home Visit ising at [facility] 132 [facility] [place] [address] Sarah Vitale RN [address] [place] [address] 12/10/2023 9:20 AM EDT Office Visit Family [address] [place] [phone] Rhys Humphrey MD [address] [place] [address] [place] [address] 12/17/2023 8:00 AM EDT Laboratory Laboratory [facility] [place] [address] [place] [phone] Apple, Lab [facility] 200 [facility] [place] [address] 12/17/2023 8:30 AM EDT Office Visit Hematology/Oncology [facility] [place] 200 [facility] [place] [phone] Gris Diaz CRNP [address] [place] [address] [place] [address] 12/17/2023 9:00 AM EDT Hem/Onc Treatment [facility]ematology[facility]cology Treatment, [place] [facility] [phone] Apple, Chair 5 Hem Onc [address] [place] [address] 12/18/2023 10:45 AM EDT Hem/Onc Treatment Hematology/Oncology Treatment, [address] [phone] 12/19/2023 9:15 AM EDT Hem/Onc Treatment Hematology/Oncology Treatment, [address] [phone] Apple, Chair 8 Hem Onc [address] [place] [address] 12/26/2023 7:30 AM EDT Office Visit Sleep Disorders Ctr Mariella Kang [place] 132 [facility] [place] [phone] Sosa Freeman CRNP [address] [place] [address] 12/27/2023 11:00 AM EDT Office Visit Cardiology [address] [place] [address] Mi Neil PA-C [address] [place] [address] 01/18/2024 7:20 AM EDT Office Visit Family Medicine [address] [place] [phone] Rhys Humphrey MD [address] [place] [address] [place] [address] 03/18/2024 9:00 AM EDT Nurse Only Ancillary [address] [place] [address] [place], Nurse Annual Wellness [address] [place] [address] [place] [address] Scheduled Procedures Name Priority Associated Diagnoses Date/Ti [...] D LEVEL ONCE IN A LIFETIME-USE SMARTSET# [id number] Completed 06/29/2020, 03/16/2015 Pneumococcal Vaccine: 65+ Years [...] Documents on File Type Date Recorded Patient Sweater Operator Expl anation POLST 10/15/2019 3:17 PM POLST POLST 03/05/2019 POLST FORM Advance Directives and Living Will 01/27/2013 LIVING WILL Advance Directives and Living Will 01/27/2013 LIVING WILL Power of Ordnance Truck Installation Mechanic 01/27/2013 POWER OF A TTORNEY Power of Ordnance Truck Installation Mechanic 01/27/2013 POWER OF A TTORNEY Healthcare Agents on File Name Relationship Healthcare Agent Relationship Communication Cydney Benito Other - (no specific identity) Second Alternate Health Care Agent Anyi More Adult Child Health Care Roberth cooper of Ordnance Truck Installation Mechanic Care Teams Research Director Relationship Specialty Start Date End Date Rhys Humphrey MD [address] [place] [address] [place] [address] PCP - General Family Medicine 06/09/21 documented as of this encounter
--- OUTSIDE RECORDS SUMMARY | 2023-12-07 21:38 | External Medical Summary | Summary of Care ---
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) Procedures OR CARBOPLATIN INJECTION OR FOSAPREPITANT INJECTION OR ETOPOSIDE 10 MG INJ OR INJ, ATEZOLIZUMAB,10 MG OR INJECTION, UDENYCA 0.5 MG Martínez Lopes MD [address] [place] [address] [place] [address] Anc Hem/Onc [address] [address] Referral ID Status Reason Start Date Expiration Date V isits Requested Visits Authorized [id number] Authorized 09/21/2023 03/22/2024 999 999 Encounter Details Date Type Department Care Team (Latest Contact Info) Description 10/03/2023 1:15 PM EST Hem/Onc Treatment Hematology/Oncolog y Treatment, [address] [address] Apple, Chair 1 Hem Onc Scenery [address] [place], [place] [address] Encounter for antineoplastic chemotherapy*; Small cell neuroendocrine [...] Tablet (Desyrel)Indicatio ns:Chronic insomnia,Major depression in remission ([facility]) Take 1 Tablet by mouth at bedtime. 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 90 Tablet 3 3 Active Albuterol Sulfate HFA 108 (90 Base) MCG/ACT Inhalation Aerosol SolutionIndication s:COPD, moderate ([facility]) Inhale 2 [...] mouth daily. 90 Tablet 1 3 024 Discontinued(Mt dication List Clean Up) Premarin 0.625 MG/GM [...] mRNA, LNP-s, No Pre serve, 2-Dose Series ([facility]) 08/01/2021,07/11/2021,11/14/2020,10/24 COVID-19, MRNA-LNP, 23-24, P F, 30 MCG/0.3 mL, 12 YRS AND ABOVE, IM ([facility] 07/23/2023 Covid-19, Mrna, Lnp-s, Pf, B ivalent, 30 Mcg, IM, 12 yrs and above ([facility]) 07/21/2022 Pneumococcal Conjugate Vacc, 13 Valent (Prevnar) 03/16/2015 Pneumococcal Conjugate Vacci ne, 20-valent ([id number]) 07/21/2022 Pneumococcal Polysaccharide PPV23 (Pneumovax) 03/05/2019,07/18/2007 Season [...] Description 11/28/2023 4:00 PM EST Home Visit [facility] [address] [place] [address] Sarah Vitale, RN 132 [facility] [place] [address] 12/10/2023 9:20 AM EDT Office Visit Family [address] [place] [address] Rhys Humphrey MD [address] [place] [address] [place] [address] 12/17/2023 8:00 AM EDT Laboratory Laboratory [facility] [place] [address] [place], [place] [phone] Apple, Lab [facility] [address] [facility] [place], [place] [address] 12/17/2023 8:30 AM EDT Office Visit Hematology/Oncology [facility] [place] [address] [place], [place] [phone] Gris Diaz CRNP 400 [facility] [place] [address] 12/17/2023 9:00 AM EDT Hem/Onc Treatment Hematology/Oncology Treatment, [address], [place] [phone] Apple, Chair [address] [place] [address] 12/18/2023 10:45 AM EDT Hem/Onc Treatment Hematology/Oncology Treatment, [address], [place] [phone] 12/19/2023 9:15 AM EDT Hem/Onc Treatment Hematology/Oncology Treatment, [address], [place] [phone] Apple, Chair 8 Hem Onc [address] [place], [place] [address] 12/26/2023 7:30 AM EDT Office Visit [facility] [address] [place] [phone] Sosa Freeman CRNP [address] [place] [address] 12/27/2023 11:00 AM EDT Office Visit Cardiology [address] [place] [address] Mi Neil PA-C [address] [place] [address] 01/18/2024 7:20 AM EDT Office Visit Family Medicine [address] [place] [address] Rhys Humphrey MD [address] [place] [address] [place] [address] 03/18/2024 9:00 AM EDT Nurse Only Ancillary [address] [place] [address] [place], Nurse Annual Wellness [address] [place] [address] [place] [address] Scheduled Procedures Name Priority Associated Diagnoses Date/Ti [...] D LEVEL ONCE IN A LIFETIME-USE SMARTSET# 40411 Completed 06/29/2020, 03/16/2015 Pneumococcal Vaccine: 65+ Years [...] Documents on File Type Date Recorded Patient Fur Trapper Expl anation POLST 10/15/2019 3:17 PM POLST POLST 03/05/2019 POLST FORM Advance Directives and Living Will 01/27/2013 LIVING WILL Advance Directives and Living Will 01/27/2013 LIVING WILL Power of Range Manager 01/27/2013 POWER OF A TTORNEY Power of Range Manager 01/27/2013 POWER OF A TTORNEY Healthcare Agents on File Name Relationship Healthcare Agent Relationship Communication Cydney Benito Other - (no specific identity) Second Alternate Health Care Agent Anyi More Adult Child Health Care Roberth r of Range Manager Care Teams Professor Of German Relationship Specialty Start Date End Date Rhys Humphrey MD [address] [place] [address] [place] [address] PCP - General Family Medicine 06/09/21 documented as of this encounter
--- OUTSIDE RECORDS SUMMARY | 2023-12-07 21:38 | External Medical Summary | Summary of Care ---
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) Procedures [place] CARBOPLATIN INJECTION [place] FOSAPREPITANT INJECTION [place] ETOPOSIDE 10 MG INJ [place] INJ, ATEZOLIZUMAB,10 MG [place] INJECTION, UDENYCA 0.5 MG Martínez Lopes MD 200 [facility] [place] [address] Anc Hem/Onc Scenery [place] [address] [place] [address] Referral ID Status Reason Start Date Expiration Date V isits Requested Visits Authorized [id number] Authorized 09/21/2023 03/22/2024 999 999 Encounter Details Date Type Department Care Team (Latest Contact Info) Description 10/02/2023 9:45 AM EST Hem/Onc Treatment Hematology/Oncolog y Treatment, [place] [address] [place], [place] [address] Apple, Chair 1 Hem Onc Scenery [address] [place], [place] [address] Encounter for antineoplastic chemotherapy*; Small cell neuroendocrine [...] Tablet (Desyrel)Indicatio ns:Chronic insomnia,Major depression in remission ([facility]) Take 1 Tablet by mouth at bedtime. 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 90 Tablet 3 3 Active Albuterol Sulfate HFA 108 (90 Base) MCG/ACT Inhalation Aerosol SolutionIndication s:COPD, moderate ([facility]) Inhale 2 [...] mouth daily. 90 Tablet 1 3 024 Discontinued(Id dication List Clean Up) Premarin 0.625 MG/GM [...] mRNA, LNP-s, No Pre serve, 2-Dose Series ([facility]) 08/01/2021,07/11/2021,11/14/2020,10/24 COVID-19, MRNA-LNP, 23-24, P F, 30 MCG/0.3 mL, 12 YRS AND ABOVE, IM ([facility]) 07/23/2023 Covid-19, Mrna, Lnp-s, Pf, B ivalent, 30 Mcg, IM, 12 yrs and above ([facility]) 07/21/2022 Pneumococcal Conjugate Vacc, 13 Valent (Prevnar) 03/16/2015 Pneumococcal Conjugate Vacci ne, 20-valent ([id number]) 07/21/2022 Pneumococcal Polysaccharide PPV23 (Pneumovax) 03/05/2019,07/18/2007 Season [...] Description 11/28/2023 4:00 PM EST Home Visit [facility], [address] [place] [address] Sarah Vitale RN 132 [place] [address] 12/10/2023 9:20 AM EDT Office Visit [address] [place] [address] Rhys Humphrey MD [address] [place] [address] [place] [address] 12/17/2023 8:00 AM EDT Laboratory Laboratory [facility] [place] 200 [facility] [place] [phone] Apple, Lab [facility] 200 [facility] [place] [address] 12/17/2023 8:30 AM EDT Office Visit Hematology/Oncology [facility] [address] [place] [phone] Gris Diaz CRNP [address] [place] [address] 12/17/2023 9:00 AM EDT Hem/Onc Treatment Hematology/Oncology Treatment, [address] [phone] Apple, Chair 5 Hem On[address] [place] [address] 12/18/2023 10:45 AM EDT Hem/Onc Treatment Hematology/Oncology Treatment, [address] [phone] 12/19/2023 9:15 AM EDT Hem/Onc Treatment Hematology/Oncology Treatment, [address] [phone] Apple, Chair 8 Hem Onc [facility] [address] [place] [address] [place] [address] 12/26/2023 7:30 AM EDT Office Visit [facility] Disorders [facility]tr [facility] [address] [place] [phone] Sosa Freeman CRNP [address] [place] [address] 12/27/2023 11:00 AM EDT Office Visit Cardiology [address] [place] [address] Mi Neil PA-C [address] [place] [address] 01/18/2024 7:20 AM EDT Office Visit Family Medicine [address] [place] [phone] Rhys Humphrey MD [address] [place] [address] [place] [address] 03/18/2024 9:00 AM EDT Nurse Only Ancillary [address] [place] [address] [place], Nurse Annual [address] [place] [address] Scheduled Procedures Name Priority Associated Diagnoses Date/Ti [...] D LEVEL ONCE IN A LIFETIME-USE SMARTSET# [id number] Completed 06/29/2020, 03/16/2015 Pneumococcal Vaccine: 65+ Years [...] Documents on File Type Date Recorded Patient Heating Element Winder Expl anation POLST 10/15/2019 3:17 PM POLST POLST 03/05/2019 POLST FORM Advance Directives and Living Will 01/27/2013 LIVING WILL Advance Directives and Living Will 01/27/2013 LIVING WILL Power of Youth Specialist 01/27/2013 POWER OF A TTORNEY Power of Youth Specialist 01/27/2013 POWER OF A TTORNEY Healthcare Agents on File Name Relationship Healthcare Agent Relationship Communication Cydney Benito Other - (no specific identity) Second Alternate Health Care Agent Anyi More Adult Child Health Care Roberth r of Youth Specialist Care Teams City Detective Relationship Specialty Start Date End Date Rhys Humphrey MD [address] [place] [address] [place] [address] PCP - General Family Medicine 06/09/21 documented as of this encounter
--- OUTSIDE RECORDS SUMMARY | 2023-12-07 21:38 | External Medical Summary | Summary of Care ---
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) Procedures [place] CARBOPLATIN INJECTION [place] FOSAPREPITANT INJECTION [place] ETOPOSIDE 10 MG INJ [place] INJ, ATEZOLIZUMAB,10 MG [place] INJECTION, UDENYCA 0.5 MG Martínez Lopes MD [address] [place] [address] [place] [address] Anc Hem/Onc [address] [address] Referral ID Status Reason Start Date Expiration Date V isits Requested Visits Authorized [id number] Authorized 09/21/2023 03/22/2024 999 999 Encounter Details Date Type Department Care Team (Latest Contact Info) Description 10/03/2023 1:15 PM EST Hem/Onc Treatment Hematology/Oncolog y Treatment, [address] [address] Apple, Chair 1 Hem Onc Scenery [address] [place], [place] [address] Encounter for antineoplastic chemotherapy*; Small cell neuroendocrine [...] Tablet (Desyrel)Indicatio ns:Chronic insomnia,Major depression in remission ([facility]) Take 1 Tablet by mouth at bedtime. 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) Take 1 Tablet by mouth every 8 hours as needed for Nausea. 90 Tablet 3 3 Active Albuterol Sulfate HFA 108 (90 Base) MCG/ACT Inhalation Aerosol SolutionIndication s:COPD, moderate ([facility]) Inhale 2 Puffs by mouth every 4 hours as needed for Cough, Shortness of Breath or Wheezing. 18 g 5 3 024 Discontinued(Re fill) Ipratropium-Albute rol 0.5-2.5 (3) MG/3ML Inhalation Solution (Duoneb)Indication s:COPD, group D, by GOLD 2017 classification ([facility] [...] mouth daily. 90 Tablet 1 3 024 Discontinued(Co dication List Clean Up) Premarin 0.625 MG/GM [...] mRNA, LNP-s, No Pre serve, 2-Dose Series ([facility]) 08/01/2021,07/11/2021,11/14/2020,10/24 COVID-19, MRNA-LNP, 23-24, P F, 30 MCG/0.3 mL, 12 YRS AND ABOVE, IM ([facility] 07/23/2023 Covid-19, Mrna, Lnp-s, Pf, B ivalent, 30 Mcg, IM, 12 yrs and above ([facility]) 07/21/2022 Pneumococcal Conjugate Vacc, 13 Valent (Prevnar) 03/16/2015 Pneumococcal Conjugate Vacci ne, 20-valent ([id number]) 07/21/2022 Pneumococcal Polysaccharide PPV23 (Pneumovax) 03/05/2019,07/18/2007 Season [...] Description 11/28/2023 4:00 PM EST Home Visit [facility] 132 [facility] [place] [address] Sarah Vitale, RN 132 [facility] [place] [address] 12/10/2023 9:20 AM EDT Office Visit Family [address] [place] [phone] Rhys Humphrey MD [address] [place] [address] [place] [address] 12/17/2023 8:00 AM EDT Laboratory Laboratory [facility] [place] [address] [place], [place] [phone] Apple, Lab [facility] 200 [facility] [place], [place] [address] 12/17/2023 8:30 AM EDT Office Visit Hematology/Oncology [facility] [place] [address] [place], [place] [phone] Gris Diaz CRNP 400 [facility] [place] [address] 12/17/2023 9:00 AM EDT Hem/Onc Treatment Hematology/Oncology Treatment, [address], [place] [phone] Apple, Chair [address] Hem On[address] [place] [address] 12/18/2023 10:45 AM EDT Hem/Onc Treatment Hematology/Oncology Treatment, [address], [place] [phone] 12/19/2023 9:15 AM EDT Hem/Onc Treatment Hematology/Oncology Treatment, [address], [place] [phone] Apple, Chair 8 Hem Onc [address] [place], [place] [address] 12/26/2023 7:30 AM EDT Office Visit [facility] Disorders Ctr [facility] [address] [place] [phone] Sosa Freeamn CRNP [address] [place] [address] 12/27/2023 11:00 AM EDT Office Visit Cardiology [address] [place] [address] Mi Neil PA-C [address] [place] [address] 01/18/2024 7:20 AM EDT Office Visit Family Medicine [address] [place] [phone] Rhys Humphrey MD [address] [place] [address] [place] [address] 03/18/2024 9:00 AM EDT Nurse Only Ancillary [address] [place] [address] Moval[place], Nurse Annual Wellness [address] [place] [address] [place] [address] Scheduled Procedures Name Priority Associated Diagnoses Date/Ti [...] D LEVEL ONCE IN A LIFETIME-USE SMARTSET# [id number] Completed 06/29/2020, 03/16/2015 Pneumococcal Vaccine: 65+ Years [...] on File Type Date Recorded Patient Advertising Sales Associate Expl anation POLST 10/15/2019 3:17 PM POLST POLST 03/05/2019 POLST FORM Advance Directives and Living Will 01/27/2013 LIVING WILL Advance Directives and Living Will 01/27/2013 LIVING WILL Power of Steam Table Associate 01/27/2013 POWER OF A TTORNEY Power of Steam Table Associate 01/27/2013 POWER OF A TTORNEY Healthcare Agents on File Name Relationship Healthcare Agent Relationship Communication Cydney Benito Other - (no specific identity) Second Alternate Health Care Agent Anyi More Adult Child Health Care Roberth r of Steam Table Associate Care Teams Silver Wrapper Relationship Specialty Start Date End Date Rhys Humphrey MD [address] [place] [address] [place] [address] PCP - General Family Medicine 06/09/21 documented as of this encounter
--- OUTSIDE RECORDS SUMMARY | 2023-12-07 21:38 | External Medical Summary | Summary of Care ---
Author Name Unknown Organization [facility] Address [address] [place] [address] Phone [phone] Care Team Providers Care Chemistry Technical Officer Name Role Phone Rhys Humphrey MD [...] UDENYCA 0.5 MG Martínez Lopes MD 200 [facility] [place] [address] Anc Hem/Onc Scenery [place] 200 [place] [address] Referral ID Status Reason Start Date Expiration Date V isits Requested Visits Authorized [id number] Authorized 09/21/2023 03/22/2024 999 999 Encounter Details Date Type Department Care Team (Latest Contact Info) Description 10/02/2023 9:45 AM EST Hem/Onc Treatment Hematology/Oncolog y Treatment, [place] [address] [place], [place] [address] Apple, Chair 1 Hem Onc Scenery [address] [place], [place] [address] Encounter for antineoplastic chemotherapy*; Small cell neuroendocrine [...] Tablet (Desyrel)Indicatio ns:Chronic insomnia,Major depression in remission ([facility]) Take 1 Tablet by mouth at bedtime. 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) Take 1 Tablet by mouth every 8 hours as needed for Nausea. 90 Tablet 3 3 Active Albuterol Sulfate HFA 108 (90 Base) MCG/ACT Inhalation Aerosol SolutionIndication s:COPD, moderate ([facility]) Inhale 2 Puffs by mouth every 4 hours as needed for Cough, Shortness of Breath or Wheezing. 18 g 5 3 024 Discontinued(Re fill) Ipratropium-Albute rol 0.5-2.5 (3) MG/3ML Inhalation Solution (Duoneb)Indication s:COPD, group D, by GOLD 2017 classification ([facility] [...] mouth daily. 90 Tablet 1 3 024 Discontinued(Pr dication List Clean Up) Premarin 0.625 MG/GM [...] mRNA, LNP-s, No Pre serve, 2-Dose Series ([facility] 08/01/2021,07/11/2021,11/14/2020,10/24 COVID-19, MRNA-LNP, 23-24, P F, 30 MCG/0.3 mL, 12 YRS AND ABOVE, IM ([facility]) 07/23/2023 Covid-19, Mrna, Lnp-s, Pf, B ivalent, 30 Mcg, IM, 12 yrs and above ([facility] 07/21/2022 Pneumococcal Conjugate Vacc, 13 Valent (Prevnar) 03/16/2015 Pneumococcal Conjugate Vacci ne, 20-valent ([id number]) 07/21/2022 Pneumococcal Polysaccharide PPV23 (Pneumovax) 03/05/2019,07/18/2007 Season [...] Description 11/28/2023 4:00 PM EST Home Visit [facility], [address] [place] [address] Sarah Vitale RN 132 [place] [address] 12/10/2023 9:20 AM EDT Office Visit [address] [place] [phone] Rhys Humphrey MD [address] [place] [address] [place] [address] 12/17/2023 8:00 AM EDT Laboratory Laboratory [facility] [place] [facility] [place] [phone] Apple, Lab [facility] 200 [facility] [place] [address] 12/17/2023 8:30 AM EDT Office Visit Hematology/Oncology [facility] [address] [place] [phone] Gris Diaz CRNP 400 [place] [address] 12/17/2023 9:00 AM EDT Hem/Onc Treatment Hematology/Oncology Treatment, [address] [phone] Apple, Chair 5 Hem Onc [address] [place] [address] 12/18/2023 10:45 AM EDT Hem/Onc Treatment Hematology/Oncology Treatment, [address] [phone] 12/19/2023 9:15 AM EDT Hem/Onc Treatment Hematology/Oncology Treatment, [address] [phone] Apple, Chair 8 Hem Onc [facility] [address] [place] [address] [place] [address] 12/26/2023 7:30 AM EDT Office Visit [facility] [address] [place] [phone] Sosa Freeman CRNP [address] [place] [address] 12/27/2023 11:00 AM EDT Office Visit Cardiology [address] [place] [address] Mi Neil PA-C [address] [place] [address] 01/18/2024 7:20 AM EDT Office Visit Family Medicine [address] [place] [phone] Rhys Humphrey MD [address] [place] [address] [place] [address] 03/18/2024 9:00 AM EDT Nurse Only Ancillary [address] [place] [address] [place], Nurse Annual [address] [place] [address] Scheduled Procedures Name Priority Associated Diagnoses Date/Ti [...] D LEVEL ONCE IN A LIFETIME-USE SMARTSET# [id number] Completed 06/29/2020, 03/16/2015 Pneumococcal Vaccine: 65+ Years [...] on File Type Date Recorded Patient Chief Telephone Operator Expl anation POLST 10/15/2019 3:17 PM POLST POLST 03/05/2019 POLST FORM Advance Directives and Living Will 01/27/2013 LIVING WILL Advance Directives and Living Will 01/27/2013 LIVING WILL Power of Camelid Fiber Sorter 01/27/2013 POWER OF A TTORNEY Power of Camelid Fiber Sorter 01/27/2013 POWER OF A TTORNEY Healthcare Agents on File Name Relationship Healthcare Agent Relationship Communication Cydney Benito Other - (no specific identity) Second Alternate Health Care Agent Anyi More Adult Child Health Care Roberth r of Camelid Fiber Sorter Care Teams Chemistry Technical Officer Relationship Specialty Start Date End Date Rhys Humphrey MD [address] [place] [address] [place] [address] PCP - General Family Medicine 06/09/21 documented as of this encounter
--- OUTSIDE RECORDS SUMMARY | 2023-12-07 21:39 | External Medical Summary ---
Author Name Unknown Address Unknown Organization K09:[facility]- - [address] [place] [address] Laboratory Report Ordering Provider Test Date Status TIERA GARCIA 11/19/2023 08:34:18 Final Observation Date Value Abnormality Reference (Units ) Status BUN 11/19/2023 08:34:18 20 6-20 (mg/dL) Final Creatinine 11/19/2023 08:34:18 0.9 0.5-1.0 (mg/dL) Final Glomerular filtration rate/1.73 sq M.predicted [Volume Rate/Area] in Serum, Plasma or Blood by Creatinine-based formula (CKD-EPI) 11/19/2023 08:34:18 64 >=60 (mL/min) Final eGFR is calculated based on the CKD-EPI 2020 equation SODIUM 11/19/2023 08:34:18 140 135-146 (m mol/L) Final Potassium 11/19/2023 08:34:18 3.8 3.5-5.1 (m mol/L) Final Cl 11/19/2023 08:34:18 101 98-107 (mm ol/L) Final CO2 11/19/2023 08:34:18 30 22-32 (mmo l/L) Final Anion gap 11/19/2023 08:34:18 9 7-15 (mmol /L) Final Glucose 11/19/2023 08:34:18 118 70-120 (mg /dL) Final Albumin 11/19/2023 08:34:18 3.8 3.8-5.0 (g /dL) Final AST (Aspartate aminotransferase) 11/19/2023 08:34:18 18 10-35 (U/L) Fin al Alk Phos 11/19/2023 08:34:18 62 35-130 (U/ L) Final Bilirubin, Total 11/19/2023 08:34:18 0.2 <=1 .2 (mg/dL) Final Calcium 11/19/2023 08:34:18 9.5 8.4-10.2 ( mg/dL) Final Protein 11/19/2023 08:34:18 6.1 6.0-8.3 (g /dL) Final ALT (Alanine aminotransferase) 11/19/2023 08:34:18 8 Below low normal 10-35 (U/L) Final Performing Location [facility]- [address] [place] [address]
--- OUTSIDE RECORDS SUMMARY | 2023-12-07 21:39 | External Medical Summary | Summary of Care ---
Author Name Unknown Organization [facility] Address [address] [place] [address] Phone [phone] Care Team Providers Care Gamma Facilities Operator Name Role Phone Rhys Humphrey MD Primary Care Provide r Reason for Visit * Reason Comments [facility]: Maintenance Encounter Details Date Type Department Care Team (Late Contact Info) Description 11/08/2023 5:30 PM EST Home Visit [facility], [facility] [address] [facility] [place] [address] Sarah Vitale, RAYNA [address] [facility] [place] [address] Allergies Active Allergy Reactions Criticality Noted Date Comments Adhesive Tape Other (Please comment),Hives High 09/29/2008 Caused welts Dextromethorphan-Gu aifenesin Neuro complications (Please comment) Medium 12/23/2021 Feels lightheaded/"foggy" documented as of this encounter (statuses as of 11/13/2023) Medications Medication Sig Dispensed Refills Start Date [...] Each 0 11/11/2019 Active Nebulizers (NEBULIZER COMPRESSOR) MISCIndications: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 Use as directed. 1 Each 1 11/17/2019 Active Iron 325 (65 Fe) MG Oral Tablet Take 1 Tablet by mouth daily. 0 Active Cranberry 500 MG Oral Capsule Take 1 Capsule by mouth in the morning and 1 Capsule before bedtime. 50 Cap 0 01/18/2021 Active Loowxky-Swktijvgg-Y inc 333-133-5 MG Oral Tablet Take 1 [...] mouth daily. 180 Tablet 1 07/09/2023 Active Clobetasol Propionate 0.05 % External Cream [...] 10/04/2023 Active Gabapentin 300 MG Oral Capsule (Neurontin)Indicati ons:Peripheral polyneuropathy,Pain in both lower extremities TAKE THREE CAPSULES BY MOUTH AT BEDTIME 90 Capsule 3 11/01/2023 Active levoFLOXacin 500 MG Oral TabletIndications:S mall cell neuroendocrine carcinoma of lung (HCC),Metastasis to mediastinal lymph node (HCC),Chemotherapy- induced neutropenia (HCC) Take 1 Tablet by mouth in the morning. Start on day 7 of chemo for total 10 days. 10 Tablet 3 11/05/2023 Active Allopurinol 100 MG Oral Tablet (Zyloprim)Indicatio [...] Breath or Wheezing. 18 g 5 01/01/2023 4 Discontinu ed(Refill) Ipratropium-Albuter ol 0.5-2.5 (3) MG/3ML Inhalation Solution (Duoneb)Indications :COPD, group D, by GOLD 2017 classification ([facility]) Inhale 3 mL via nebulizer every 6 hours as needed for Shortness of Breath or Wheezing. 360 mL 3 03/22/2023 4 Discontinu ed(Refill) Formoterol Fumarate 20 MCG/2ML Inhalation Nebulization Solution Inhale 1 Inhalation by mouth in the morning. 0 4 Discontinu ed(Refill) Budesonide 0.5 MG/2ML Inhalation Suspension (Pulmicort) Inhale 0.5 mg via nebulizer in the morning and 0.5 mg before bedtime. 0 4 Discontinu ed(Refill) documented as of this encounter (statuses as of 11/13/2023) Active Problems Problem Noted Date Diagnosed Date [...] as of this encounter (statuses as of 11/13/2023) Resolved Problems Problem Noted Date Diagnosed Date [...] as of this encounter (statuses as of 11/13/2023) Immunizations Name Administration Dates Next Due COVID-19 mRNA, LNP-s, No Pre serve, 2-Dose Series (KeraFAST) 07/11/2021,11/14/2020,10/24/2020 Covid-19, Mrna, Lnp-s, Pf, B ivalent, 30 Mcg, IM, 12 yrs and above (KeraFAST) 07/21/2022 Pneumococcal Conjugate Vacc, 13 Valent (Prevnar) 03/16/2015 Pneumococcal Conjugate Vacci ne, 20-valent ([id number]) 07/21/2022 Pneumococcal Polysaccharide PPV23 (Pneumovax) 03/05/2019,07/18/2007 Season [...] Sign Reading Time Taken Comments Blood Pressure 136/68 11/08/2023 3:34 PM EST Pulse 76 11/08/2023 3:34 PM EST Temperature 35.7 C (96.3 F) 11/08/2023 3:34 PM ES T Respiratory Rate 18 11/08/2023 3:34 PM EST Oxygen Saturation 98% 11/08/2023 3:34 PM EST Inhaled Oxygen Concentration - - Weight - - Height - - Body Mass Index - - documented in this encounter Progress Notes * Sarah Vitale RN - 11/08/2023 3:33 PM EST Images from the original note were not included. [facility] Solution Strategist Visit Date: 11/08/2023 Time: 3:33 PM Name: Keisha Linares : 1940 Current Concerns: Patient seen for YVONNE#2- s/p [facility] stay over night- reports she presented with shortness of breath- "I just couldn't breathe!" 10/29- 10/30- Chronic respiratory failure secondary to COPD exacerbation/ lung carcinoma Discharged with Zpack- and prednisone- completed Next chemo treatment- 11/19 Reports doing well. + family support VS wnl Lungs clear but diminished Oxygen dependence No LE edema noted Sob with exertion- baseline Voiding without difficulty Bowels wnl- per report Appetite fair to good Taking fluids well Problems/Symptoms: Review of Systems Constitutional: Negative. HENT: Negative. Eyes: Negative. Respiratory: Positive for shortness of breath. Cardiovascular: Negative. Gastrointestinal: Negative. Endocrine: Negative. Genitourinary: Negative. Musculoskeletal: Positive for gait problem. Hematological: Negative. Psychiatric/Behavioral: Negative. Physical Exam: BP 136/68 (BP Site: Right Arm, BP Position: Sitting, BP Cuff Size: Regular) | Pulse 76 | Temp 35.7 C (96.3 F) (Tympanic) | Resp 18 | SpO2 98% Pain 0 Physical Exam Constitutional: Appearance: Normal [...] and Affect: Mood normal. Behavior: Behavior normal. [facility]-10 Completed this Visit: No. Routine visit Treatment/Plan: Oxygen continuous at 2-3L via n/c AMC scale/BP cuff daily Fluids encouraged Continue medications as prescribed Keep all upcoming MD appointments Fall precautions- walker RN CM follow up in 3 weeks [...] patient in 3 weeks. Sarah Bhandari RN 11/08/2023 3:33 PM documented in this encounter Plan of Treatment Upcoming Encounters Date Type Department Care Team (Late st Contact Info) Description 11/15/2023 12:00 PM EST Scheduled Telephone [facility], [facility] [address] [facility] [place] [address] Lovely Bravo RDN [address] [facility] [place] [address] 11/19/2023 8:20 AM EST Laboratory Laboratory [facility] [address] [place] [phone] [place], Lab [address] [place] [address] 11/19/2023 9:30 AM EST Hem/Onc Treatment Hematology/Oncology Treatment, [place] [address] [facility], [place] [address] 11/20/2023 2:15 PM EST Hem/Onc Treatment Hematology/Oncology Treatment, [place] [address] [facility], [place] [address] Apple, Chair 8 Hem Onc [address] [place] [address] 11/21/2023 2:15 PM EST Hem/Onc Treatment Hematology/Oncology Treatment, [place] [address] [place] [address] Apple, Chair 9 Hem Onc Scenery [address] [place] [address] [place] [address] 11/28/2023 4:00 PM EST Home Visit [facility], [facility] [address] [facility] [place] [address] Sarah Vitale, RAYNA [address] [facility] [place] [address] 12/10/2023 9:20 AM EDT Office Visit Family Medicine [address] [place] [phone] Rhys Humphrey MD [address] [place] [address] [place] [address] 12/26/2023 7:30 AM EDT Office Visit Sleep Disorders [facility] [address] [place] [phone] Sosa Freeman CRNP [address] [place] [address] 12/27/2023 11:00 AM EDT Office Visit Cardiology [address] [place] [address] Mi Neil PA-C [address] [place] [address] 01/18/2024 7:20 AM EDT Office Visit Family [address] [place] [phone] Rhys Humphrey MD [address] [place] [address] [place] [address] 03/18/2024 9:00 AM EDT Nurse Only Ancillary [address] [place] [address] [place], Nurse Annual Wellness [address] [place] [address] [place] [address] Scheduled Procedures Name Priority Associated Diagnoses Date/Ti [...] D LEVEL ONCE IN A LIFETIME-USE SMARTSET# 17560 Completed 06/29/2020, 03/16/2015 Pneumococcal Vaccine: 65+ Years [...] on File Type Date Recorded Patient Casing Cleaner Expl anation POLST 10/15/2019 3:17 PM POLST POLST 03/05/2019 POLST FORM Advance Directives and Living Will 01/27/2013 LIVING WILL Advance Directives and Living Will 01/27/2013 LIVING WILL Power of Reinforcing Iron And Rebar Workers 01/27/2013 POWER OF A TTORNEY Power of Reinforcing Iron And Rebar Workers 01/27/2013 POWER OF A TTORNEY Healthcare Agents on File Name Relationship Healthcare Agent Relationship Communication Cydney eBnito Other - (no specific identity) Second Alternate Health Care Agent Anyi More Adult Child Health Care Roberth r of Reinforcing Iron And Rebar Workers Care Teams Gamma Facilities Operator Relationship Specialty Start Date End Date Rhys Humphrey MD [address] [place] [address] [place] [phone] PCP - General Family Medicine 06/09/21 documented as of this encounter
--- OUTSIDE RECORDS SUMMARY | 2023-12-07 21:39 | External Medical Summary | Summary of Care ---
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 50 Cap 0 01/18/2021 Active Jlztboz-Pztjwxokq-Iy nc 333-133-5 MG Oral Tablet Take 1 [...] Base) MCG/ACT Inhalation Aerosol SolutionIndications: COPD, moderate ([facility]) Inhale 2 Puffs by mouth [...] the morning. 100 mL 1 11/12/2023 Active documented as of this encounter (statuses as of 11/19/2023) Active Problems Problem Noted Date Diagnosed Date [...] as of this encounter (statuses as of 11/19/2023) Resolved Problems Problem Noted Date Diagnosed Date [...] as of this encounter (statuses as of 11/19/2023) Immunizations Name Administration Dates Next Due COVID-19 mRNA, LNP-s, No Pre serve, 2-Dose Series (Pfizer) 07/11/2021,11/14/2020,10/24/2020 Covid-19, Mrna, Lnp-s, Pf, B ivalent, 30 Mcg, IM, 12 yrs and above (Pfizer) 07/21/2022 Pneumococcal Conjugate Vacc, 13 Valent (Prevnar) 03/16/2015 Pneumococcal Conjugate Vacci ne, 20-valent ([id number]) 07/21/2022 Pneumococcal Polysaccharide PPV23 (Pneumovax) 03/05/2019,07/18/2007 Season [...] Care Team (Late st Contact Info) Description 11/19/2023 9:30 AM EST Hem/Onc Treatment Hematology/Oncology [address] [address] Arrived 11/20/2023 2:15 PM EST Hem/Onc Treatment Hematology/Oncology Treatment, [address] [address] Apple Chair 8 Hem Onc [facility] [address] [place] [address] [place] [address] 11/21/2023 2:15 PM EST Hem/Onc Treatment Hematology/Oncology Treatment, [address] [address] Apple, Chair 9 Hem Onc [facility] [address] [place] [address] [place] [address] 11/28/2023 4:00 PM EST Home Visit [facility], [address] [place] [address] Sarah Vitale, RAYNA [address] [place] [address] 12/10/2023 9:20 AM EDT Office Visit Family Medicine [address] [place] [phone] Rhys Humphrey MD [address] [place] [address] [place] [address] 12/26/2023 7:30 AM EDT Office Visit Sleep Disorders [facility] [address] [place] [phone] Sosa Freeman CRNP [address] [place] [address] 12/27/2023 11:00 AM EDT Office Visit Cardiology [address] [place] [address] Mi Neil, PAMateo [address] [place] [address] 01/18/2024 7:20 AM EDT Office Visit Family [address] [place] [phone] Rhys Humphrey MD [address] [place] [address] [place] [address] 03/18/2024 9:00 AM EDT Nurse Only Ancillary [address] [place] [address] [place], Nurse Annual [address] [place] [address] Pending Results Name Type Priority Associated Diagnoses Date /Time CBC WITH WBC DIFFERENTIAL Lab STAT 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) 11/19/2023 8:34 AM EST COMPREHENSIVE METABOLIC PANEL Lab STAT 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) 11/19/2023 8:34 AM EST TSH WITH FREE T4 IF INDICATED Lab STAT 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) 11/19/2023 8:34 AM EST LD Lab STAT 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) Chemotherapy-induced neutropenia (HCC) 11/19/2023 8:34 AM EST URIC ACID Lab STAT 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) Chemotherapy-induced neutropenia (HCC) 11/19/2023 8:34 AM EST CBC Lab STAT 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) 11/19/2023 8:34 AM EST DIFFERENTIAL, AUTOMATED Lab STAT 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) 11/19/2023 8:34 AM EST Scheduled Procedures Name Priority Associated [...] D LEVEL ONCE IN A LIFETIME-USE SMARTSET# [id number] Completed 06/29/2020, 03/16/2015 Pneumococcal Vaccine: 65+ Years [...] unspecified malignant neoplasm of intrathoracic lymph nodes Chemotherapy-induced neutropenia (HCC) Drug induced neutropenia documented in this encounter Advance Directives Documents on File Type Date Recorded Patient Child Psychiatrist Expl anation POLST 10/15/2019 3:17 PM POLST POLST 03/05/2019 POLST FORM Advance Directives and Living Will 01/27/2013 LIVING WILL Advance Directives and Living Will 01/27/2013 LIVING WILL Power of Clerk General Office 01/27/2013 POWER OF A TTORNEY Power of Clerk General Office 01/27/2013 POWER OF A TTORNEY Healthcare Agents on File Name Relationship Healthcare Agent Relationship Communication Cydney Benito Other - (no specific identity) Second Alternate Health Care Agent Anyi More Adult Child Health Care Roberth r of Clerk General Office Care Teams Pta Relationship Specialty Start Date End Date Rhys Humphrey MD [address] [place] [address] [place] [address] PCP - General Family Medicine 06/09/21 documented as of this encounter
--- OUTSIDE RECORDS SUMMARY | 2023-12-07 21:39 | External Medical Summary | Summary of Care ---
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) Procedures MI CARBOPLATIN INJECTION MI FOSAPREPITANT INJECTION MI ETOPOSIDE 10 MG INJ MI INJ, ATEZOLIZUMAB,10 MG MI INJECTION, UDENYCA 0.5 MG Martínez Lopes MD [address] [place] [address], [place] [address] Anc Hem/Onc [address] [phone] Referral ID Status Reason Start Date Expiration Date V isits Requested Visits Authorized [id number] Authorized 09/21/2023 03/22/2024 999 [id number] Encounter Details Date Type Department Care Team (Latest Contact Info) Description 11/22/2023 4:15 PM EST Immunization/ Injection Hematology/Oncology [address], [address] [phone] Apple, Chair 11 Hem Onc Scenery [address] [facility], [place] [address] Encounter for antineoplastic chemotherapy*; 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 03/12/2019 Overview: PFT: 05/2011, 2008 Carotid stenosis, symptomatic w/o infarct 04/10/2011 [...] as of this encounter (statuses as of 11/22/2023) Immunizations Name Administration Dates Next Due COVID-19 mRNA, LNP-s, No Pre serve, 2-Dose Series ([employer]) 08/01/2021,07/11/2021,11/14/2020,10/24 COVID-19, MRNA-LNP, 23-24, P F, 30 MCG/0.3 mL, 12 YRS AND ABOVE, IM ([facility] 07/23/2023 Covid-19, Mrna, Lnp-s, Pf, B ivalent, 30 Mcg, IM, 12 yrs and above ([employer]) 07/21/2022 Pneumococcal Conjugate Vacc, 13 Valent (Prevnar) 03/16/2015 Pneumococcal Conjugate Vacci ne, 20-valent ([id number]) 07/21/2022 Pneumococcal Polysaccharide PPV23 (Pneumovax) 03/05/2019,07/18/2007 Season [...] as of this encounter Nursing Notes * Adrienne Huggins RN - 11/22/2023 4:06 PM EST Chair 10. Patient here for Udenyca injection s/p 24 hours chemo, feeling well. Injection given by KEV, RN, no issues. Patient left facility in stable condition and denied any further needs. documented in this encounter Plan of Treatment Upcoming Encounters Date Type Department Care Team (Late st Contact Info) Description 11/28/2023 4:00 PM EST [facility] Visit [facility] [address] [facility] [place] [address] Sarah Vitale RN [address] [place] [address] 12/10/2023 9:20 AM EDT Office Visit Family Medicine [address] [phone] Rhys Humphrey MD [address] [place] [address] [place] [address] 12/17/2023 8:00 AM EDT Laboratory Laboratory [facility] [place] [address] [facility] [place] [phone] [place], Lab [address] [place] [address] 12/17/2023 8:30 AM EDT Office Visit Hematology/Oncology [facility] [address] [facility] [place] [phone] Gris Diaz CRNP [address] [place] [address] [place] [address] 12/17/2023 9:00 AM EDT Hem/Onc Treatment Hematology/Oncology Treatment, [place] [address] [facility] [place] [phone] Apple, Chair 5 Hem Onc [address] [place] [address] 12/18/2023 10:45 AM EDT Hem/Onc Treatment Hematology/Oncology [address], [address] [phone] 12/19/2023 9:15 AM EDT Hem/Onc Treatment Hematology/Oncology [address], [address] [phone] Apple, Chair 8 Hem Onc [address] [place] [address] 12/26/2023 7:30 AM EDT [facility] [place] [address] [place] [phone] Sosa Freeman CRNP [address] [place] [address] 12/27/2023 11:00 AM EDT Office Visit Cardiology [address] [place] [address] Mi Neil, CECI [address] [place] [address] 01/18/2024 7:20 AM EDT Office Visit Family Medicine [address] [place] [phone] Rhys Humphrey MD [address] [place] [address] [place] [address] 03/18/2024 9:00 AM EDT Nurse Only Ancillary [address] [place] [address] [place], Nurse Annual [address] [place] [address] Scheduled Procedures Name Priority Associated Diagnoses Date/Ti [...] D LEVEL ONCE IN A LIFETIME-USE SMARTSET# [id number] Completed 06/29/2020, 03/16/2015 Pneumococcal Vaccine: 65+ Years [...] 6 mg 6 mg, Subcutaneous, ONCE, On Dania 11/22/23 at 1630, For 1 dose Given 11/22/2023 3:55 PM EST 6 mg Arm R ight Upper documented in this encounter Advance Directives Documents on File Type Date Recorded Patient Windshield Installer Expl anation POLST 10/15/2019 3:17 PM POLST POLST 03/05/2019 POLST FORM Advance Directives and Living Will 01/27/2013 LIVING WILL Advance Directives and Living Will 01/27/2013 LIVING WILL Power of Cash Register Balancer 01/27/2013 POWER OF A TTORNEY Power of Cash Register Balancer 01/27/2013 POWER OF A TTORNEY Healthcare Agents on File Name Relationship Healthcare Agent Relationship Communication Cydney Benito Other - (no specific identity) Second Alternate Health Care Agent Anyi More Adult Child Health Care Roberth r of Cash Register Balancer Care Teams Customer Leader Relationship Specialty Start Date End Date Rhys Humphrey MD [address] [place] [address] [place] [address] PCP - General Family Medicine 06/09/21 documented as of this encounter
--- OUTSIDE RECORDS SUMMARY | 2023-12-07 21:39 | External Medical Summary | Summary of Care ---
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 50 Cap 0 01/18/2021 Active Phsbiml-Fctnbypqk-Si nc 333-133-5 MG Oral Tablet Take 1 [...] Base) MCG/ACT Inhalation Aerosol SolutionIndications: COPD, moderate ([facility]) Inhale 2 Puffs [...] as of this encounter (statuses as of 11/15/2023) Active Problems Problem Noted Date Diagnosed Date [...] as of this encounter (statuses as of 11/15/2023) Resolved Problems Problem Noted Date Diagnosed Date [...] as of this encounter (statuses as of 11/15/2023) Immunizations Name Administration Dates Next Due COVID-19 mRNA, LNP-s, No Pre serve, 2-Dose Series (Pfizer) 07/11/2021,11/14/2020,10/24/2020 Covid-19, Mrna, Lnp-s, Pf, B ivalent, 30 Mcg, IM, 12 yrs and above (Pfizer) 07/21/2022 Pneumococcal Conjugate Vacc, 13 Valent (Prevnar) 03/16/2015 Pneumococcal Conjugate Vacci ne, 20-valent ([id number]) 07/21/2022 Pneumococcal Polysaccharide PPV23 (Pneumovax) 03/05/2019,07/18/2007 Season [...] Miscellaneous Notes * Telephone Encounter - Lovely Bravo RDN - 11/15/2023 2:51 PM EST NUTRITION FOLLOW-UP NOTE - OUTPATIENT Dionteer Name: Keisha Linares Location: [facility] Date: 11/15/2023 Time: 2:51 PM Reason for Nutrition Follow-up: Loss of weight NUTRITION ASSESSMENT: Second attempt to contact patient. Called x 2 this date. No answer. Voice message left with ANIBAL contact information and purpose of phone call. Awaiting return call at this time.WKS Restauranter message sent to patient requesting return call. ANIBAL Garces AT [facility] documented in this encounter Plan of Treatment Upcoming Encounters Date Type Department Care Team (Late st Contact Info) Description 11/19/2023 8:20 AM EST Laboratory Laboratory [facility] [place] [address] [place] [phone] [place], Lab Scenery [address] [place] [address] 11/19/2023 9:30 AM EST Hem/Onc Treatment Hematology/Oncology [address] [address] 11/20/2023 2:15 PM EST Hem/Onc Treatment [facility], [place] [facility] [address] [place], Chair 8 Hem Onc Scenery 200 [facility] [place] [address] 11/21/2023 2:15 PM EST Hem/Onc Treatment Hematology/Oncology Treatment, [place] [facility] [address] Apple, Chair 9 Hem Onc Scenery 200 [facility] [place] [address] 11/28/2023 4:00 PM EST [facility] [address] [facility] [place] [address] Sarah Vitale, RN 132 [facility] [place] [address] 12/10/2023 9:20 AM EDT Office Visit Family Medicine [address] [place] [phone] Rhys Humphrey MD [address] [place] [address] [place] [address] 12/26/2023 7:30 AM EDT Office Visit Sleep Disorders Ctr [facility] [address] [place] [phone] Sosa Freeman CRNP [address] [place] [address] 12/27/2023 11:00 AM EDT Office Visit Cardiology [address] [place] [address] Mi Neil PA-C [address] [place] [address] 01/18/2024 7:20 AM EDT Office Visit Family Medicine [address] [place] [phone] Rhys Humphrey MD [address] [place] [address] [place] [address] 03/18/2024 9:00 AM EDT Nurse Only Ancillary [address] [place] [address] [place], Nurse Annual [address] [place] [address] Scheduled Procedures Name Priority Associated Diagnoses Date/Ti [...] D LEVEL ONCE IN A LIFETIME-USE SMARTSET# 93274 Completed 06/29/2020, 03/16/2015 Pneumococcal Vaccine: 65+ Years [...] Documents on File Type Date Recorded Patient Meat And Poultry Inspector Expl anation POLST 10/15/2019 3:17 PM POLST POLST 03/05/2019 POLST FORM Advance Directives and Living Will 01/27/2013 LIVING WILL Advance Directives and Living Will 01/27/2013 LIVING WILL Power of Boats Renter 01/27/2013 POWER OF A TTORNEY Power of Boats Renter 01/27/2013 POWER OF A TTORNEY Healthcare Agents on File Name Relationship Healthcare Agent Relationship Communication Cydney Benito Other - (no specific identity) Second Alternate Health Care Agent Anyi More Adult Child Health Care Roberth cooper of Boats Renter Care Teams Sushi Chef Relationship Specialty Start Date End Date Rhys Humphrey MD [address] [place] [address] [place] [address] PCP - General Family Medicine 06/09/21 documented as of this encounter
--- OUTSIDE RECORDS SUMMARY | 2023-12-07 21:39 | External Medical Summary ---
Author Name Unknown Address Unknown Organization K09:[facility] [place] [address] Laboratory Report Ordering Provider Test Date Status TIERA GARCIA 11/19/2023 08:34:18 Final Observation Date Value Abnormality Reference (Units ) Status SYNC LEUKOCYTES IN BLOOD BY AUTOMATED COUNT 11/19/2023 08:34:18 6.41 4.00-10.80 (K/uL) Final Segs 11/19/2023 08:34:18 45.1 40.0-75.0 (%) Final Lymphs % 11/19/2023 08:34:18 23.1 18.0-42.0 (%) Final Monos 11/19/2023 08:34:18 10.6 1.0-11.0 (%) Final Eosinophils 11/19/2023 08:34:18 20.6 Above high normal 0.0-6.0 (%) Final Basos 11/19/2023 08:34:18 0.6 0.0-2.0 (%) Final Absolute Segs 11/19/2023 08:34:18 2.89 1.80-7.70 (K/uL) Final Lymphs, absolute 11/19/2023 08:34:18 1.48 1.00-4.80 (K/ul) Final Monos, Abs 11/19/2023 08:34:18 0.68 0.00-1.10 (K/uL) Final Eos, Abs 11/19/2023 08:34:18 1.32 Above high normal 0.00-0.70 (K/uL) Final Basos, Abs 11/19/2023 08:34:18 0.04 0.00-0.20 (K/uL) Final Performing Location [facility] [place] [address]
--- OUTSIDE RECORDS SUMMARY | 2023-12-07 21:39 | External Medical Summary ---
Author Name Unknown Address Unknown Organization K01:[facility] - [address] [place] [address] Laboratory Report Ordering Provider Test Date Status TIERA GARCIA 11/19/2023 08:34:18 Final Observation Date Value Abnormality Reference (Units ) Status Uric Acid 11/19/2023 08:34:18 4.6 2.4-5.7 (m g/dL) Final Performing Location [facility] - [address] [place] [address]
--- OUTSIDE RECORDS SUMMARY | 2023-12-07 21:39 | External Medical Summary ---
Author Name Unknown Address Unknown Organization K09:[facility] [place] [address] Laboratory Report Ordering Provider Test Date Status JOSE,MOTT 11/19/2023 08:34:18 Final Observation Date Value Abnormality Reference (Units ) Status Nucleated erythrocytes/100 leukocytes [Ratio] in Blood by Automated count 11/19/2023 08:34:18 Final Performing Location [facility] [place] [address]
--- OUTSIDE RECORDS SUMMARY | 2023-12-07 21:39 | External Medical Summary ---
Author Name Unknown Address Unknown Organization K09:[facility] [place] [address] Laboratory Report Ordering Provider Test Date Status TIERA GARCIA 11/19/2023 08:34:18 Final Observation Date Value Abnormality Reference (Units ) Status WBC, Total 11/19/2023 08:34:18 6.41 4.00-10.8 0 (K/uL) Final RBC 11/19/2023 08:34:18 3.85 3.85-5.15 (M/uL) Final Hemoglobin 11/19/2023 08:34:18 10.1 Below low normal 12 .0-15.3 (g/dL) Final HCT 11/19/2023 08:34:18 33.9 Below low normal 36. 0-45.2 (%) Final MCV 11/19/2023 08:34:18 88.1 81.5-97.5 (fL) Final MCH 11/19/2023 08:34:18 26.2 27.0-34.0 (pg) Final MCHC 11/19/2023 08:34:18 29.8 32.0-36.0 (g/dL) Final RDW 11/19/2023 08:34:18 18.1 11.5-15.5 (%) Final Platelets 11/19/2023 08:34:18 177 140-400 (K /uL) Final MPV 11/19/2023 08:34:18 9.0 6.6-11.1 ( fL) Final Performing Location [facility] [place] [address]
--- OUTSIDE RECORDS SUMMARY | 2023-12-07 21:39 | External Medical Summary | Summary of Care ---
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) Procedures MD CARBOPLATIN INJECTION MD FOSAPREPITANT INJECTION MD ETOPOSIDE 10 MG INJ MD INJ, ATEZOLIZUMAB,10 MG MD INJECTION, UDENYCA 0.5 MG Martínez Lopes MD [address] [place] [address] Anc Hem/Onc [facility] [address] [address] Referral ID Status Reason Start Date Expiration Date V isits Requested Visits Authorized [id number] Authorized 09/21/2023 03/22/2024 [id number] Encounter Details Date Type Department Care Team (Latest Contact Info) Description 11/20/2023 2:15 PM EST Hem/Onc Treatment Hematology/Oncolog y Treatment, [address] [place], [place] [phone] Apple, Chair 8 Hem Onc Scenery [address] [place], [place] [phone] Encounter for antineoplastic chemotherapy*; 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 50 Cap 0 01/18/2021 Active Efzpeil-Lnhoqwibv-Pu nc 333-133-5 MG Oral Tablet Take 1 [...] Tablet (Desyrel)Indications :Chronic insomnia,Major depression in remission ([facility]) Take 1 Tablet by mouth at bedtime. [...] as of this encounter (statuses as of 11/20/2023) Active Problems Problem Noted Date Diagnosed Date [...] as of this encounter (statuses as of 11/20/2023) Resolved Problems Problem Noted Date Diagnosed Date [...] as of this encounter (statuses as of 11/20/2023) Immunizations Name Administration Dates Next Due COVID-19 mRNA, LNP-s, No Pre serve, 2-Dose Series ([employer]) 08/01/2021,07/11/2021,11/14/2020,10/24 COVID-19, MRNA-LNP, 23-24, P F, 30 MCG/0.3 mL, 12 YRS AND ABOVE, IM (Survature-Comirnaty) 07/23/2023 Covid-19, Mrna, Lnp-s, Pf, B ivalent, 30 Mcg, IM, 12 yrs and above (Pfizer) 07/21/2022 Pneumococcal Conjugate Vacc, 13 Valent (Prevnar) 03/16/2015 Pneumococcal Conjugate Vacci ne, 20-valent ([id number]) 07/21/2022 Pneumococcal Polysaccharide PPV23 (Pneumovax) 03/05/2019,07/18/2007 Season [...] Sign Reading Time Taken Comments Blood Pressure 146/90 11/20/2023 2:30 PM EST Pulse 76 11/20/2023 2:30 PM EST Temperature 36.6 C (97.8 F) 11/20/2023 2:30 PM ES T Respiratory Rate 18 11/20/2023 2:30 PM EST Oxygen Saturation 95% 11/20/2023 2:30 PM EST 4L Inhaled Oxygen Concentration - - Weight - - Height - - Body Mass Index - - documented in this encounter Nursing Notes * Adrienne Huggins, RN - 11/20/2023 4:03 PM EST Chair 11. IV in place from tx yesterday. Patient is feeling well overall, no acute issues or complaints. Patient did c/o her L breast starting to burn yesterday, just below nipple. Showed RN -- assessed site, looks WNL. Patient says it doesnot look any different than usual. Nothing appears wrong/abnormal. Patient says she has kept a washcloth on the site to help and put baby oil on it. Says the baby oil did not help but the washcloth does. RN educated patient to let us know if the site starts to feel worse, burn more, beocme discolored or if she notices anything abnormal. Patient communicated understanding and said he daughter justwanted her to let us know about the issues at hand. UPDATE: about 45 minutes into visit today, patient asked if her breast was still bothering her. Patient said it is fine and is not concerned, not bothersome. Chemo agents Day 2/3 Etoposide Appetite good overall Nausea/Vomiting no Diarrhea no Constipation no Mucositis no Fatigue no Bleeding no Infection no Rash no Numbness tingling no Pain no Radiation no ABN Labs WNL for tx, done yesterday on day 1 of tx cycle Alt in Tx: N/A Return in 1 day Safety and Risk for Injury Patient will remain free from injury. Ensure appropriate safety devices are available. Provide and maintain safe environment. Goals: Patient will remain free from injury. Possible barriers to meeting goals: ambulating with IV pole Stability of the patient: Moderately stable - low risk of patient condition declining or worsening Summary regarding today's goals: Met: pt remained free of harm today Functional status at today's visit: Restricted in physically strenuous activity but ambulatory and able to carry out work on a light orsedentary nature, e.g. light house work, office work The drug name, dose, infusion volume, rate and route of administration, expiration date and time, appearance and physical integrity of the drug and rate set on the pump and sequencing of drug administration (as applicable) were verified by me and second sign-in RN. Patient was assessed for symptoms or adverse side effects during treatment. Patient tolerated treatment well without any acute issues or problems. IV left in place for tx tomorrow. Patient left facility in stable condition and denied any further needs. documented in this encounter Plan of Treatment Upcoming Encounters Date Type Department Care Team (Late st Contact Info) Description 11/21/2023 2:15 PM EST Hem/Onc Treatment Hematology/Oncology Treatment, [address] [place] [phone] Apple, Chair 9 Hem Onc [address] [place] [address] 11/28/2023 4:00 PM EST Home Visit [facility] [address] [facility] [place] [address] Sarah Vitale RN 132 [facility] [place] [address] 12/10/2023 9:20 AM EDT Office Visit Family Medicine [address] [place] [phone] Rhys Humphrey MD [address] [place] [address] [place] [address] 12/17/2023 8:00 AM EDT Laboratory Laboratory [facility] [place] [address] [place] [phone] [place], Lab [address] [facility] [place] [address] 12/17/2023 8:30 AM EDT Office Visit Hematology/Oncology [facility] [place] [address] [facility] [place], [place] [phone] Gris Diaz [facility] [address] [facility] [place] [address] 12/17/2023 9:00 AM EDT Hem/Onc Treatment Hematology/Oncology Treatment, [address] [phone] Apple, Chair 5 Hem Onc [facility] 200 [facility] [place] [address] 12/18/2023 10:45 AM EDT Hem/Onc Treatment Hematology/Oncology Treatment, [address] [phone] 12/19/2023 9:15 AM EDT Hem/Onc Treatment Hematology/Oncology Treatment, [address] [phone] Apple, Chair 8 Hem Onc [address] [place] [address] 12/26/2023 7:30 AM EDT Office Visit Sleep Disorders [facility] [place] [address] [place] [phone] Soas Freeman CRNP [address] [place] [address] 12/27/2023 11:00 AM EDT Office Visit Cardiology [address] [place] [address] Mi Neil PA-C [address] [place] [address] 01/18/2024 7:20 AM EDT Office Visit Family Medicine [address] [place] [phone] Rhys Humphrey MD [address] [place] [address] [place] [address] 03/18/2024 9:00 AM EDT Nurse Only Ancillary [address] [place] [address] [place], Nurse Annual [address] [place] [address] Scheduled Procedures Name Priority Associated Diagnoses Date/Ti [...] D LEVEL ONCE IN A LIFETIME-USE SMARTSET# 19558 Completed 06/29/2020, 03/16/2015 Pneumococcal Vaccine: 65+ Years [...] ONCE PRN Other, Hypersensitivity Reaction, Starting on Sun11/20/23 at 1446, Until Sun11/21/23 at 1445, For 24 hours EPINEPHrine 1 MG/ML inj 0.3 mg 0.3 mg, Intramuscular, ONCE PRN Other, Hypersensitivity Reaction or Anaphylaxis, Starting on Sun11/20/23 at 1446, Until Sun11/21/23 at 1445, For 24 hours hEParin 100 UNIT/ML Lock Flush inj 500 Units 500 Units (5 mL), IV Lock, PRN Other, IV Flush, Starting on Sun11/20/23 at 1446, Until Sun11/21/23 at 1445, For 24 hours, Do not flush if lock, PICC, or central line not in place; IV infusing or unable to flush. Hydrocortisone Sod Suc (PF) (Solu-Cortef) inj 100 mg 100 mg, IV Push, ONCE PRN Other, Hypersensitivity Reaction, Starting on Sun11/20/23 at 1446, Until Sun11/21/23 at 1445, For 24 hours LORAzepam (Ativan) tab 0.5 mg 0.5 mg, Oral, ONCE PRN Anxiety, Nausea, Starting on Sun11/20/23 at 1600, Until Discontinued NSS infusion Intravenous, at 50 mL/hr, PRN, Starting on Sun11/20/23 at 1600, Until Discontinued, Maintenance line Start Infusion 11/20/2023 2:51 PM EST 50 mL/hr oxygen GAS Inhalation, OXYGEN, First dose on Sun11/20/23 at 1600, Until Discontinued, Device/Managed by: Low [...] Push, PRN Other, IV Flush, Starting on Sun11/20/23 at 1446, Until Sun11/21/23 at 1445, For 24 hours, Do not flush if [...] weight), IV Piggyback, ONCE, 1 dose, On Sun11/20/23 at 1630, Administer over 60 Minutes, Recommended concentration is less than or equal to 0.4 mg/mL. If concentration is greater than 0.4 mg/mL recommend to administer through 0.22 micron low protein binding filter. Start Infusion 11/20/2023 3:04 PM EST 140 mg 500 mL/hr ondansetron (Zofran) tab 8 mg 8 mg, Oral, ONCE, On Sun11/20/23 at 1600, For 1 dose, Give 30 minutes prior to chemotherapy. Given 11/20/2023 2:49 PM EST 8 mg documented in this encounter Advance Directives Documents on File Type Date Recorded Patient Shorer Expl anation POLST 10/15/2019 3:17 PM POLST POLST 03/05/2019 POLST FORM Advance Directives and Living Will 01/27/2013 LIVING WILL Advance Directives and Living Will 01/27/2013 LIVING WILL Power of Compotype Operator 01/27/2013 POWER OF A TTORNEY Power of Compotype Operator 01/27/2013 POWER OF A TTORNEY Healthcare Agents on File Name Relationship Healthcare Agent Relationship Communication Cydney Benito Other - (no specific identity) Second Alternate Health Care Agent Anyi More Adult Child Health Care Roberth r of Compotype Operator Care Teams Business Intelligence Engineer Relationship Specialty Start Date End Date Rhys Humphrey MD [address] [place] [address] [place] [address] PCP - General Family Medicine 06/09/21 documented as of this encounter
--- OUTSIDE RECORDS SUMMARY | 2023-12-07 21:39 | External Medical Summary | Summary of Care ---
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) Procedures IA CARBOPLATIN INJECTION IA FOSAPREPITANT INJECTION IA ETOPOSIDE 10 MG INJ IA INJ, ATEZOLIZUMAB,10 MG IA INJECTION, UDENYCA 0.5 MG Martínez Lopes MD [address] [place] [address] [place] [address] Anc Hem/Onc [address] [address] Referral ID Status Reason Start Date Expiration Date V isits Requested Visits Authorized [id number] Authorized 09/21/2023 03/22/2024 999 [id number] Encounter Details Date Type Department Care Team (Latest Contact Info) Description 11/21/2023 2:15 PM EST Hem/Onc Treatment Hematology/Oncolog y Treatment, [address] [address] Apple, Chair 9 Hem Onc Scenery [address] [place], [place] [address] Encounter for antineoplastic chemotherapy*; 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 50 Cap 0 01/18/2021 Active Grxtpmo-Noirihizy-Nf nc 333-133-5 MG Oral Tablet Take 1 [...] Tablet (Desyrel)Indications :Chronic insomnia,Major depression in remission ([facility]) Take 1 Tablet by mouth [...] Inhalation Aerosol SolutionIndications: COPD, moderate ([facility]) Inhale 2 Puffs by mouth every 4 hours as needed for Cough, Shortness of Breath or Wheezing. 18 g 5 11/09/2023 Active Ipratropium-Albutero l 0.5-2.5 (3) MG/3ML Inhalation Solution (Duoneb)Indications: COPD, group D, by GOLD 2017 classification ([facility]) Inhale 3 mL via nebulizer [...] as of this encounter (statuses as of 11/21/2023) Active Problems Problem Noted Date Diagnosed Date [...] as of this encounter (statuses as of 11/21/2023) Resolved Problems Problem Noted Date Diagnosed Date [...] as of this encounter (statuses as of 11/21/2023) Immunizations Name Administration Dates Next Due COVID-19 mRNA, LNP-s, No Pre serve, 2-Dose Series (Docea Power) 08/01/2021,07/11/2021,11/14/2020,10/24 COVID-19, MRNA-LNP, 23-24, P F, 30 MCG/0.3 mL, 12 YRS AND ABOVE, IM [facility] 07/23/2023 Covid-19, Mrna, Lnp-s, Pf, B ivalent, 30 Mcg, IM, 12 yrs and above (Pfizer) 07/21/2022 Pneumococcal Conjugate Vacc, 13 Valent (Prevnar) 03/16/2015 Pneumococcal Conjugate Vacci ne, 20-valent ([id number]) 07/21/2022 Pneumococcal Polysaccharide PPV23 (Pneumovax) 03/05/2019,07/18/2007 Season [...] Sign Reading Time Taken Comments Blood Pressure 133/53 11/21/2023 2:53 PM EST Pulse 65 11/21/2023 2:53 PM EST Temperature 36.2 C (97.1 F) 11/21/2023 2:53 PM ES T Respiratory Rate 20 11/21/2023 2:53 PM EST Oxygen Saturation 91% 11/21/2023 2:53 PM EST Inhaled Oxygen Concentration - - Weight - - Height - - Body Mass Index - - documented in this encounter Nursing Notes * Gi Mares RN - 11/21/2023 2:53 PM EST Chair 10, Etoposide D3. Pt has no acute concerns to report since treatment yesterday. PIV assessed for patency; flushes easily with positive blood return. NSS infusing. Safety and Risk for Injury [...] or adverse side effects during treatment. Pt completed treatment without issues. IV removed. Goals: Pt will remain free from injury. Possible barriers to meeting goals: pt is a high fall risk Stability of the patient: Moderately stable - low risk of patient condition declining or worsening Summary regarding today's goals: Met: Pt remained free from injury during treatment today. Discharged in stable condition. AB assisted. documented in this encounter Plan of Treatment Upcoming Encounters Date Type Department Care Team (Late st Contact Info) Description 11/22/2023 4:15 PM EST Immunization/Injecti on Hematology/Oncology Treatment, [place] [address] [place] [address] Apple, Chair 11 Hem Onc Scenery [address] [place] [address] 11/28/2023 4:00 PM EST [facility] Visit [facility] [address] [place] [address] Sarah Vitale RN [address] [place] [address] 12/10/2023 9:20 AM EDT Office Visit [address] [place] [phone] Rhys Humphrey MD [address] [place] [address] [place] [address] 12/17/2023 8:00 AM EDT Laboratory Laboratory [facility] [place] [facility] [place] [phone] Apple, Lab Scenery [address] [place] [address] 12/17/2023 8:30 AM EDT Office Visit Hematology/Oncology [facility] Apple [place] 200 [facility] [place] [phone] Gris Diaz CRNP [address] [place], [place] [address] [address] 12/17/2023 9:00 AM EDT Hem/Onc Treatment Hematology/Oncology Treatment [address] [place] [phone] Apple, Chair [address] [facility] [place] [address] 12/18/2023 10:45 AM EDT Hem/Onc Treatment Hematology/Oncology Treatment [address] [place] [phone] 12/19/2023 9:15 AM EDT Hem/Onc Treatment Hematology/Oncology Treatment [address] [place] [phone] Apple, Chair 8 Hem Onc Scenery [address] [place] [address] 12/26/2023 7:30 AM EDT Office Visit [facility] Disorders [facility]tr Mariella Kang [place] [address] [place] [phone] Sosa Freeman CRNP [address] [place] [address] 12/27/2023 11:00 AM EDT Office Visit Cardiology [address] [place] [address] Mi Neil PA-C [address] [address] 01/18/2024 7:20 AM EDT Office Visit Family Medicine [address] [place] [phone] Rhys Humphrey MD [address] [place] [address] [place] [address] 03/18/2024 9:00 AM EDT Nurse Only Ancillary [address] [place] [address] [place], Nurse Annual Wellness [address] [place] [address] [place] [address] Scheduled Procedures Name Priority Associated Diagnoses Date/Ti [...] D LEVEL ONCE IN A LIFETIME-USE SMARTSET# [id number] Completed 06/29/2020, 03/16/2015 Pneumococcal Vaccine: 65+ Years [...] ONCE PRN Other, Hypersensitivity Reaction, Starting on Sun11/21/23 at 1436, Until [place] 11/22/23 at 1435, For 24 hours EPINEPHrine 1 MG/ML inj 0.3 mg 0.3 mg, Intramuscular, ONCE PRN Other, Hypersensitivity Reaction or Anaphylaxis, Starting on Sun11/21/23 at 1436, Until [place] 11/22/23 at 1435, For 24 hours hEParin 100 UNIT/ML Lock Flush inj 500 Units 500 Units (5 mL), IV Lock, PRN Other, IV Flush, Starting on Sun11/21/23 at 1436, Until [place]ia 11/22/23 at 1435, For 24 hours, Do not flush if lock, PICC, or central line not in place; IV infusing or unable to flush. Hydrocortisone Sod Suc (PF) (Solu-Cortef) inj 100 mg 100 mg, IV Push, ONCE PRN Other, Hypersensitivity Reaction, Starting on Sun11/21/23 at 1436, Until [place] 11/22/23 at 1435, For 24 hours LORAzepam (Ativan) tab 0.5 mg 0.5 mg, Oral, ONCE PRN Anxiety, Nausea, Starting on Sun11/21/23 at 1545, Until Discontinued NSS infusion Intravenous, at 50 mL/hr, PRN, Starting on Sun11/21/23 at 1545, Until Discontinued, Maintenance line Start Infusion 11/21/2023 2:43 PM EST 50 mL/hr oxygen GAS Inhalation, OXYGEN, First dose on Sun11/21/23 at 1600, Until Discontinued, Device/Managed by: Low [...] Push, PRN Other, IV Flush, Starting on Sun11/21/23 at 1436, Until [place] 11/22/23 at 1435, For 24 hours, Do not flush if [...] weight), IV Piggyback, ONCE, 1 dose, On Sun11/21/23 at 1615, Administer over 60 Minutes, Recommended concentration is less than or equal to 0.4 mg/mL. If concentration is greater than 0.4 mg/mL recommend to administer through 0.22 micron low protein binding filter. Start Infusion 11/21/2023 2:58 PM EST 140 mg 500 mL/hr ondansetron (Zofran) tab 8 mg 8 mg, Oral, ONCE, On Sun11/21/23 at 1545, For 1 dose, Give 30 minutes prior to chemotherapy. Given 11/21/2023 2:42 PM EST 8 mg documented in this encounter Advance Directives Documents on File Type Date Recorded Patient Wine Maker Expl anation POLST 10/15/2019 3:17 PM POLST POLST 03/05/2019 POLST FORM Advance Directives and Living Will 01/27/2013 LIVING WILL Advance Directives and Living Will 01/27/2013 LIVING WILL Power of Shellfish Sorter 01/27/2013 POWER OF A TTORNEY Power of Shellfish Sorter 01/27/2013 POWER OF A TTORNEY Healthcare Agents on File Name Relationship Healthcare Agent Relationship Communication Cydney Benito Other - (no specific identity) Second Alternate Health Care Agent Anyi More Adult Child Health Care Roberth r of Shellfish Sorter Care Teams Compliance Paralegal Relationship Specialty Start Date End Date Rhys Humphrey MD [address] [place] [address] [place] [phone] PCP - General Family Medicine 06/09/21 documented as of this encounter
--- OUTSIDE RECORDS SUMMARY | 2023-12-07 21:39 | External Medical Summary ---
Author Name Unknown Address Unknown Organization [id number]:LABORATORY [facility] - [address] [place] [address] Laboratory Report Ordering Provider Test Date Status TIERA GARCIA 11/19/2023 08:34:18 Final Observation Date Value Abnormality Reference (Units ) Status TSH 11/19/2023 08:34:18 3.80 0.27-4.20 (uIU/mL) Final Performing Location LABORATORY C - [address] [place] [address]
--- OUTSIDE RECORDS SUMMARY | 2023-12-07 21:39 | External Medical Summary | Summary of Care ---
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) Procedures GA CARBOPLATIN INJECTION GA FOSAPREPITANT INJECTION GA ETOPOSIDE 10 MG INJ GA INJ, ATEZOLIZUMAB,10 MG GA INJECTION, UDENYCA 0.5 MG Martínez Lopes MD [address] [place] [address] Anc Hem/Onc Scenery [place] [address] [place] [address] Referral ID Status Reason Start Date Expiration Date V isits Requested Visits Authorized [id number] Authorized 09/21/2023 03/22/[phone] Encounter Details Date Type Department Care Team (Latest Contact Info) Description 11/19/2023 9:30 AM EST Hem/Onc Treatment Hematology/Oncolog y Treatment, [place] [address] [place] [address] Encounter for antineoplastic chemotherapy*; Small cell neuroendocrine [...] before bedtime. 50 Cap 0 01/18/2021 Active Wpahdpm-Qvpugkkup-Qw nc 333-133-5 MG Oral Tablet Take 1 [...] Base) MCG/ACT Inhalation Aerosol SolutionIndications: COPD, moderate ([facility]) Inhale 2 Puffs by mouth every 4 [...] mRNA, LNP-s, No Pre serve, 2-Dose Series (Interneer) 07/11/2021,11/14/2020,10/24/2020 Covid-19, Mrna, Lnp-s, Pf, B ivalent, 30 Mcg, IM, 12 yrs and above (Interneer) 07/21/2022 Pneumococcal Conjugate Vacc, 13 Valent (Prevnar) 03/16/2015 Pneumococcal Conjugate Vacci ne, 20-valent ([id number]) 07/21/2022 Pneumococcal Polysaccharide PPV23 (Pneumovax) 03/05/2019,07/18/2007 Season [...] Sign Reading Time Taken Comments Blood Pressure 156/69 11/19/2023 10:16 AM EST Pulse 72 11/19/2023 10:16 AM EST Temperature 36.6 C (97.8 F) 11/19/2023 10:[address] Respiratory Rate 18 11/19/2023 10:16 AM EST Oxygen Saturation 92% 11/19/2023 10:16 AM EST Inhaled Oxygen Concentration - - Weight 66.2 kg (146 lb) 11/19/2023 10:16 AM EST Height - - Body Mass Index 28.51 11/02/2023 1:44 PM EST documented in this encounter Nursing Notes * Gi Mares RN - 11/19/2023 4:02 PM EST Functional status at today's visit: [...] symptoms or adverse side effects during treatment. At approximately 1248, IV pump alarmed "downstream occlusion" during Etoposide infusion. A Brown RNassessed IV site; pt c/o mild burning at PIV site. Minimal edema noted proximal to insertion point.No redness, warmth present. Pt reported burning sensation resolved once infusion was stopped. PIV aspirated; negative for blood return. IV site discontinued; site elevated with warm compress applied per extravasation protocol. PIV established in L wrist; Etoposide restarted. Gris DUMAS assessed extravasation site approximately 15 minutes post IV discontinuation. Edema resolved; no erythema, pain, or warmth noted. Advised pt to apply heat for 15-20 minutes 2-3 more times this evening; pt verbalized understanding. Pt returns to clinic tomorrow for treatment; site to be reassessed at that time. Pt completed treatment without further issues. PIV flushed, clamped and capped for use tomorrow. Goals: Pt will remain free from injury. Possible barriers to meeting goals: pt is a high fall risk Stability of the patient: Moderately stable - low risk of patient condition declining or worsening Summary regarding today's goals: Met: See nursing note. Pt discharged in stable condition with daughter. DORITA ARIAS assisted. * Gi Mares RN - 11/19/2023 10:16 AM EST Chair 6 Chemo agents Tecentriq/Carbo/Etoposide C2D1 Appetite stable Nausea/Vomiting no Diarrhea no Constipation no Mucositis no Fatigue stable Bleeding no Infection no Rash no Numbness tingling no Pain no Radiation n/a ABN Labs okay for treatment Alt in Tx: no Return in 1 day PIV established; NSS infusing. Safety and Risk for Injury Patient will remain free from injury. Ensure appropriate safety devices are available. Provide and maintain safe environment. documented in this encounter Plan of Treatment Upcoming Encounters Date Type Department Care Team (Late st Contact Info) Description 11/20/2023 2:15 PM EST Hem/Onc Treatment Hematology/[address], [address] [phone] Apple, Chair 8 Hem Onc Scenery 200 [facility] [place] [address] 11/21/2023 2:15 PM EST Hem/Onc Treatment Hematology/Oncology Treatment, [address] [place] [phone] Apple, Chair 9 Hem Onc Scenery 200 [facility] [place] [address] 11/28/2023 4:00 PM EST [facility] [place] [address] Sarah Vitale [facility] [place] [address] 12/10/2023 9:20 AM EDT Office Visit Family Medicine [address] [place] [phone] Rhys Humphrey MD [address] [place] [address] [place] [address] 12/17/2023 8:00 AM EDT Laboratory Laboratory [facility] [place] [address] [place] [phone] Ramona Chiu [address] [place] [address] 12/17/2023 8:30 AM EDT Office Visit Hematology/Oncology [facility] [place] 200 [facility] [place] [phone] Gris Diaz CRNP [facility] [place] [address] 12/17/2023 9:00 AM EDT Hem/Onc Treatment Hematology/Oncology Treatment, [address] [phone] Apple, Chair 5 Hem Onc [address] [place] [address] 12/18/2023 10:45 AM EDT Hem/Onc Treatment Hematology/Oncology Treatment, [address] [phone] 12/19/2023 9:15 AM EDT Hem/Onc Treatment Hematology/Oncology Treatment, [address], [place] [phone] Apple, Chair 8 Hem Onc [address] [address] 12/26/2023 7:30 AM EDT Office Visit Sleep Disorders Ctr Mariella [facility] [place] [address] [place] [phone] Sosa Freeman CRNP [address] [place] [address] 12/27/2023 11:00 AM EDT Office Visit Cardiology [address] [place] [address] Mi Neil PA-C [address] [place] [address] 01/18/2024 7:20 AM EDT Office Visit Family Medicine [address] [place] [phone] Rhys Humphrey MD [address] [place] [address] [place] [address] 03/18/2024 9:00 AM EDT Nurse Only Ancillary [address] [place] [address] [place], Nurse Annual [address] [place] [address] Scheduled Procedures Name Priority Associated Diagnoses Date/Ti [...] D LEVEL ONCE IN A LIFETIME-USE SMARTSET# [id number] Completed 06/29/2020, 03/16/2015 Pneumococcal Vaccine: 65+ Years [...] ONCE PRN Other, Hypersensitivity Reaction, Starting on Sun11/19/23 at 1014, Until Sun11/20/23 at 1013, For 24 hours EPINEPHrine 1 MG/ML inj 0.3 mg 0.3 mg, Intramuscular, ONCE PRN Other, Hypersensitivity Reaction or Anaphylaxis, Starting on Sun11/19/23 at 1014, Until Sun11/20/23 at 1013, For 24 hours hEParin 100 UNIT/ML Lock Flush inj 500 Units 500 Units (5 mL), IV Lock, PRN Other, IV Flush, Starting on Sun11/19/23 at 1014, Until Sun11/20/23 at 1013, For 24 hours, Do not flush if lock, PICC, or central line not in place; IV infusing or unable to flush. Given 11/19/2023 1:42 PM EST 500 Units Hydrocortisone Sod Suc (PF) (Solu-Cortef) inj 100 mg 100 mg, IV Push, ONCE PRN Other, Hypersensitivity Reaction, Starting on Sun11/19/23 at 1014, Until Sun11/20/23 at 1013, For 24 hours LORAzepam (Ativan) tab 0.5 mg 0.5 mg, Oral, ONCE PRN Anxiety, Nausea, Starting on Sun11/19/23 at 1115, Until Discontinued NSS infusion Intravenous, at 50 mL/hr, PRN, Starting on Sun11/19/23 at 1115, Until Discontinued, Maintenance line Start Infusion 11/19/2023 10:20 AM EST 50 mL/hr oxygen GAS Inhalation, OXYGEN, First dose on Sun11/19/23 at 1045, Until Discontinued, Device/Managed by: Low Flow Device, [...] Push, PRN Other, IV Flush, Starting on Sun11/19/23 at 1014, Until Sun11/20/23 at 1013, For 24 hours, Do not flush if lock, PICC, or central line not in place; IV infusing or unable to flush. Given 11/19/2023 1:42 PM EST 10 mL Inactive Administered Medications - up to 3 most recent administrations Medication Order MAR Action Action Date Dose Rate Site Atezolizumab (Tecentriq) 1,200 mg in NSS 250 mL infusion 1,200 mg, IV Piggyback, ONCE, 1 dose, On Sun11/19/23 at 1100, Administer over 60 Minutes, Administer first infusion over 60 minutes and if tolerated, subsequent doses may be infused over 30 minutes. Start Infusion 11/19/2023 10:58 AM EST 1,200 mg 250 mL/hr CARBOplatin (Paraplatin) 261 mg in D5W 250 mL infusion 261 mg (rounded from 261.2 mg, Target AUC = 4), IV Piggyback, at 500 mL/hr Administer over 30 Minutes, PROTECT FROM LIGHT (Max Creatinine Clearance at 125 ml/min for calculating AUC dose), ONCE, 1 dose, On Sun11/19/23 at 1200 Start Infusion 11/19/2023 11:39 AM EST 261 mg 500 mL/hr etoposide (VEPESID) 140 mg in NSS 500 mL infusion 140 mg (rounded from 136.8 mg = 80 mg/m2 1.71 m2 Treatment Plan BSA from Recorded weight), IV Piggyback, ONCE, 1 dose, On Sun11/19/23 at 1245, Administer over 60 Minutes, Recommended concentration is less than or equal to 0.4 mg/mL. If concentration is greater than 0.4 mg/mL recommend to administer through 0.22 micron low protein binding filter. Restarted 11/19/2023 1:05 PM EST 500 mL/hr Start Infusion 11/19/2023 12:12 PM EST 140 mg 500 mL/h r Fosaprepitant Dimeglumine (Emend) 150 mg, ondansetron (Zofran) 16 mg, dexamethasone sodium phosphate 12 mg in NSS 250 mL Infusion 150 mg, IV Piggyback, ONCE, 1 dose, On Sun11/19/23 at 1115, Administer over 30 Minutes, Give 30 minutes prior to chemotherapy. Infuse over 30 minutes. Start Infusion 11/19/2023 10:22 AM EST 150 mg 500 mL/hr documented in this encounter Advance Directives Documents on File Type Date Recorded Patient Clinical Informatics Spec Expl anation POLST 10/15/2019 3:17 PM POLST POLST 03/05/2019 POLST FORM Advance Directives and Living Will 01/27/2013 LIVING WILL Advance Directives and Living Will 01/27/2013 LIVING WILL Power of Reaming Machine Operator 01/27/2013 POWER OF A TTORNEY Power of Reaming Machine Operator 01/27/2013 POWER OF A TTORNEY Healthcare Agents on File Name Relationship Healthcare Agent Relationship Communication Cydney Benito Other - (no specific identity) Second Alternate Health Care Agent Anyi More Adult Child Health Care Roberth r of Reaming Machine Operator Care Teams [employer] Social Worker Relationship Specialty Start Date End Date Rhys Humphrey MD [address] [place] [address] [place] [address] PCP - General Family Medicine 06/09/21 documented as of this encounter
--- OUTSIDE RECORDS SUMMARY | 2023-12-07 21:40 | External Medical Summary | Summary of Care ---
Author Name Unknown Organization [facility] Address [address] [place] [address] Phone [phone] Care Team Providers Care Siderographer Name Role Phone Rhys Gonzalez MD Primary Care Provide r Reason for Visit * Reason Onset Date Comments Medication Refill 11/09/2023 Encounter Details Date Type Department Care Team (Late st Contact Info) Description 11/09/2023 Refill Family Medicine [address] [place] [phone] Rhys Gonzalez MD [address] [place] [address] [place] [address] COPD, group D, by GOLD 2017 classification ([facility]) Allergies Active Allergy Reactions Criticality Noted Date Comments Adhesive Tape Other (Please comment),Hives High 09/29/2008 Caused welts Dextromethorphan-Gu aifenesin Neuro complications (Please comment) Medium 12/23/2021 Feels lightheaded/"foggy" documented as of this encounter (statuses as of 11/10/2023) Medications Medication Sig Dispensed Refills Start Date [...] Each 0 11/11/2019 Active Nebulizers (NEBULIZER COMPRESSOR) MISCIndications: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 Use as directed. 1 Each 1 11/17/2019 Active Iron 325 (65 Fe) MG Oral Tablet Take 1 Tablet by mouth daily. 0 Active Cranberry 500 MG Oral Capsule Take 1 Capsule by mouth in the morning and 1 Capsule before bedtime. 50 Cap 0 01/18/2021 Active Fedabdp-Gbaxsjzxj-Y inc 333-133-5 MG Oral Tablet Take 1 [...] the morning. 30 Tablet 1 11/05/2023 Active Formoterol Fumarate 20 MCG/2ML Inhalation Nebulization Solution Inhale 1 Inhalation by mouth in the morning. 0 Active Budesonide 0.5 MG/2ML Inhalation Suspension (Pulmicort) Inhale 0.5 mg via nebulizer in the morning and 0.5 mg before bedtime. 0 Active Albuterol Sulfate HFA 108 (90 Base) MCG/ACT Inhalation Aerosol SolutionIndications :COPD, moderate ([facility]) Inhale 2 Puffs by mouth every 4 hours as needed for Cough, Shortness of Breath or Wheezing. 18 g 5 11/09/2023 Active Ipratropium-Albuter ol 0.5-2.5 (3) MG/3ML Inhalation Solution (Duoneb)Indications :COPD, group D, by GOLD 2017 classification ([facility]) Inhale 3 mL via nebulizer every 6 hours as needed for Shortness of Breath or Wheezing. 360 mL 3 11/10/2023 Active Ipratropium-Albuter ol 0.5-2.5 (3) MG/3ML Inhalation Solution (Duoneb)Indications :COPD, group D, by GOLD 2017 classification ([facility]) Inhale 3 mL via nebulizer every 6 hours as needed for Shortness of Breath or Wheezing. 360 mL 3 03/22/2023 4 Discontinu ed(Refill) documented as of this encounter (statuses as of 11/10/2023) Active Problems Problem Noted Date Diagnosed Date [...] as of this encounter (statuses as of 11/10/2023) Resolved Problems Problem Noted Date Diagnosed Date [...] as of this encounter (statuses as of 11/10/2023) Immunizations Name Administration Dates Next Due COVID-19 mRNA, LNP-s, No Pre serve, 2-Dose Series (W[employer]) 07/11/2021,11/14/2020,10/24/2020 Covid-19, Mrna, Lnp-s, Pf, B ivalent, 30 Mcg, IM, 12 yrs and above (Pfizer) 07/21/2022 Pneumococcal Conjugate Vacc, 13 Valent (Prevnar) 03/16/2015 Pneumococcal Conjugate Vacci ne, 20-valent ([id number]) 07/21/2022 Pneumococcal Polysaccharide PPV23 (Pneumovax) 03/05/2019,07/18/2007 Season [...] Miscellaneous Notes * Telephone Encounter - Deng Hernandez, [facility] - 11/10/2023 10:07 AM ESTSigned Prescriptions: Disp Refills Ipratropium-Albuterol 0.5-2.5 (3) MG/3ML I*360 mL 3 Sig: Inhale 3 mL via nebulizer every 6 hours as needed for Shortness of Breath or Wheezing.Authorizing Provider:Angela GONZALEZ User: DENG HERNANDEZ documented in this encounter Plan of Treatment Upcoming Encounters Date Type Department Care Team (Late st Contact Info) Description 11/13/2023 8:30 AM EST [facility] Visit [facility], [facility] [address] [facility] [place] [address] Sarah Vitale, RN [address] [place] [address] 11/19/2023 8:20 AM EST Laboratory Laboratory [facility] [address] [place] [phone] [place], Lab [address] [place], [place] [address] 11/19/2023 9:30 AM EST Hem/Onc Treatment Hematology/Oncology Treatment, [address] [address] 11/20/2023 2:15 PM EST Hem/Onc Treatment Hematology/Oncology Treatment, [address], [place] [address] [place], Chair [address] [facility] [address] [place] [address] [place], [place] [address] 11/21/2023 2:15 PM EST Hem/Onc Treatment Hematology/Oncology Treatment, [address], [place] [address] [place], Chair [address] [facility] [address] [place] [address] [place], [place] [address] 11/28/2023 4:00 PM EST [facility] Visit [facility], [facility] [address] [place] [address] Sarah Vitale, RN [address] [place] [address] 12/10/2023 9:20 AM EDT Office Visit Family Medicine [address] [place] [phone] Rhys Gonzalez MD [address] [place] [address] [place] [address] 12/26/2023 7:30 AM EDT Office Visit Sleep Disorders Ctr [facility] [address] [place] [phone] Sosa Freeman CRNP [address] [place] [address] 12/27/2023 11:00 AM EDT Office Visit Cardiology [address] [place] [address] Mi Neil PA-C [address] [place] [address] 01/18/2024 7:20 AM EDT Office Visit Family [address] [place] [phone] Rhys Gonzalez MD [address] [place] [address] [place] [address] 03/18/2024 9:00 AM EDT Nurse Only Ancillary [address] [place] [address] [place], Nurse Annual Wellness [address] [place] [address] [place] [address] Scheduled Procedures Name Priority Associated Diagnoses Date/Ti [...] D LEVEL ONCE IN A LIFETIME-USE SMARTSET# 63464 Completed 06/29/2020, 03/16/2015 Pneumococcal Vaccine: 65+ Years [...] Adult Child Health Care Roberth r of Coin Collector Care Teams Siderographer Relationship Specialty Start Date End Date Rhys Gonzalez MD [address] [place] [address] [place] [phone] PCP - General Family Medicine 06/09/21 documented as of this encounter
--- OUTSIDE RECORDS SUMMARY | 2023-12-07 21:40 | External Medical Summary | Summary of Care ---
Author Name Unknown Organization [facility] Address [address] [place] [facility] [place] [address] Phone [phone] Care Team Providers Care Maintenance Custodian Name Role Phone Rhys Humphrey MD Primary Care Provide r Reason for Visit * Reason Onset Date Comments [facility]: Maintenance 11/12/2023 Encounter Details Date Type Department Care Team (Late st Contact Info) Description 11/12/2023 Telephone [facility], [facility] [address] [place] [address] [facility], Nurse [place] [phone] [place] [address] [facility]: Maintenance Allergies Active Allergy Reactions Criticality Noted Date Comments Adhesive Tape Other (Please comment),Hives High 09/29/2008 Caused welts Dextromethorphan-Gu aifenesin Neuro complications (Please comment) Medium 12/23/2021 Feels lightheaded/"foggy" documented as of this encounter (statuses as of 11/12/2023) Medications Medication Sig Dispensed Refills Start Date [...] before bedtime. 50 Cap 0 01/18/2021 Active Zcpnmtd-Yfqqswmxt-Am nc 333-133-5 MG Oral Tablet Take 1 [...] Base) MCG/ACT Inhalation Aerosol SolutionIndications: COPD, moderate ([facility]) Inhale 2 Puffs by mouth every 4 hours as needed for Cough, Shortness of Breath or Wheezing. 18 g 5 11/09/2023 Active Ipratropium-Albutero l 0.5-2.5 (3) MG/3ML Inhalation Solution (Duoneb)Indications: COPD, group D, by GOLD 2017 classification ([facility]) Inhale 3 mL via nebulizer [...] as of this encounter (statuses as of 11/12/2023) Active Problems Problem Noted Date Diagnosed Date [...] rhinitis Overview: ICD-10 update of inactive term ISEAL (obstructive sleep apnea) Last Assessment & Plan: Needs new CPAP machine. Order placed documented as of this encounter (statuses as of 11/12/2023) Resolved Problems Problem Noted Date Diagnosed Date [...] as of this encounter (statuses as of 11/12/2023) Immunizations Name Administration Dates Next Due COVID-19 mRNA, LNP-s, No Pre serve, 2-Dose Series ([employer]) 07/11/2021,11/14/2020,10/24/2020 Covid-19, Mrna, Lnp-s, Pf, B ivalent, 30 Mcg, IM, 12 yrs and above (Pfizer) 07/21/2022 Pneumococcal Conjugate Vacc, 13 Valent (Prevnar) 03/16/2015 Pneumococcal Conjugate Vacci ne, 20-valent ([id number]) 07/21/2022 Pneumococcal Polysaccharide PPV23 (Pneumovax) 03/05/2019,07/18/2007 Season [...] Telephone Encounter - Denise Pittman LPN - 11/12/2023 12:58 PM EST [facility] Remote Patient Monitoring Unable to contact patient: Trigger type: Abnormal reading(s): Device(s) Triggered: AMC (Advanced Monitored Caregiving): Blood Pressure Cuff: Blood pressure per cuff: 106/39 Plan: Route to RNCM (Registered Nurse Blacksmith Hammer Operator) in care team Left message to return call Has appt tomorrow with RNCM documented in this encounter Plan of Treatment Upcoming Encounters Date Type Department Care Team (Late st Contact Info) Description 11/13/2023 8:30 AM EST [facility] [place] [address] Sarah Vitale RN [address] [place] [address] 11/19/2023 8:20 AM EST Laboratory Laboratory [place] [place] [address] [place] [phone] [place], Lab Scenery [address] [facility] [place] [address] 11/19/2023 9:30 AM EST Hem/Onc Treatment Hematology/Oncology Treatment, [address] [address] 11/20/2023 2:15 PM EST Hem/Onc Treatment Hematology/Oncology Treatment, [place] [facility] [address] [place], Chair 8 Hem Onc Scenery 200 [facility] [place] [address] 11/21/2023 2:15 PM EST Hem/Onc Treatment Hematology/Oncology Treatment, [place] [facility] [address] [place], Chair 9 Hem Onc Scenery 200 [facility] [place], [place] [address] 11/28/2023 4:00 PM EST [facility] [address] [facility] [place] [address] Sarah Vitale RN [address] [facility] [place] [address] 12/10/2023 9:20 AM EDT Office Visit Family [address] [place] [phone] Rhys Humphrey MD [address] [place] [address] [place] [address] 12/26/2023 7:30 AM EDT Office Visit Sleep Disorders Ctr [facility] [address] [facility] [place] [phone] Sosa Freeman CRNP [address] [place] [address] 12/27/2023 11:00 AM EDT Office Visit Cardiology [address] [place] [address] Mi Neil PA-C [address] [place] [address] 01/18/2024 7:20 AM EDT Office Visit Family Medicine [address] [place] [phone] Rhys Humphrey MD [address] [place] [address] [place] [address] 03/18/2024 9:00 AM EDT Nurse Only Ancillary [address] [place] [address] [place], Nurse Annual Wellness [address] [place] [address] [place] [address] Scheduled Procedures Name Priority Associated Diagnoses Date/Ti [...] D LEVEL ONCE IN A LIFETIME-USE SMARTSET# [id number] Completed 06/29/2020, 03/16/2015 Pneumococcal Vaccine: 65+ Years [...] Documents on File Type Date Recorded Patient Diagnostic Tech Expl anation POLST 10/15/2019 3:17 PM POLST POLST 03/05/2019 POLST FORM Advance Directives and Living Will 01/27/2013 LIVING WILL Advance Directives and Living Will 01/27/2013 LIVING WILL Power of Pest Control Service Representative 01/27/2013 POWER OF A TTORNEY Power of Pest Control Service Representative 01/27/2013 POWER OF A TTORNEY Healthcare Agents on File Name Relationship Healthcare Agent Relationship Communication Cydney Benito Other - (no specific identity) Second Alternate Health Care Agent Anyi More Adult Child Health Care Roberth r of Pest Control Service Representative Care Teams Maintenance Custodian Relationship Specialty Start Date End Date Rhys Humphrey MD [address] [place] [address] [place] [phone] PCP - General Family Medicine 06/09/21 documented as of this encounter
--- OUTSIDE RECORDS SUMMARY | 2023-12-07 21:40 | External Medical Summary | Summary of Care ---
Author Name Unknown Organization [facility] Address [address] [place] [facility] [place] [address] Phone [phone] Care Team Providers Care Cook Relief Name Role Phone Rhys Humphrey MD Primary Care Provide r Reason for Visit * Reason Onset Date Comments [facility]: Maintenance 11/12/2023 Encounter Details Date Type Department Care Team (Late st Contact Info) Description 11/12/2023 Telephone [facility], [facility] [address] [place] [address] [facility], Nurse [place] [phone] [place] [address] [facility]: Maintenance Allergies Active Allergy [...] before bedtime. 50 Cap 0 01/18/2021 Active Sbivenw-Itdxjsilk-Kt nc 333-133-5 MG Oral Tablet Take 1 [...] Inhalation Aerosol SolutionIndications: COPD, moderate ([facility]) Inhale 2 Puffs by mouth every [...] mRNA, LNP-s, No Pre serve, 2-Dose Series ([employer]) 07/11/2021,11/14/2020,10/24/2020 Covid-19, Mrna, Lnp-s, Pf, B ivalent, 30 Mcg, IM, 12 yrs and above (Pfizer) 07/21/2022 Pneumococcal Conjugate Vacc, 13 Valent (Prevnar) 03/16/2015 Pneumococcal Conjugate Vacci ne, 20-valent ([id number]) 07/21/2022 Pneumococcal Polysaccharide PPV23 (Pneumovax) 03/05/2019,07/18/2007 Season [...] Pittman LPN - 11/12/2023 12:58 PM EST Images from the original note were not included. [facility] Remote Patient Monitoring Unable to contact patient: Trigger type: Abnormal reading(s): Device(s) Triggered: AMC (Advanced Monitored Caregiving): Blood Pressure Cuff: Blood pressure per cuff: 106/39 Plan: Route to RNCM (Registered Nurse Synthetic Soil Blocks Pulper) in care team Left message to return call Has appt tomorrow with RNCM documented in this encounter Plan of Treatment Upcoming Encounters Date Type Department Care Team (Late st Contact Info) Description 11/13/2023 8:30 AM EST [facility] Visit [facility], [facility] [place] [address] Sarah Vitale RN 132 [facility] [place] [address] 11/19/2023 8:20 AM EST Laboratory Laboratory [place] [address] [place] [phone] [place], Lab Scenery [address] [place] [address] 11/19/2023 9:30 AM EST Hem/Onc Treatment Hematology/Oncology Treatment, [place] [address] [facility] [address] 11/20/2023 2:15 PM EST Hem/Onc Treatment Hematology/Oncology Treatment, [place] [address] [facility] [address] [place], Chair 8 Hem Onc Scenery [address] [place] [address] 11/21/2023 2:15 PM EST Hem/Onc Treatment Hematology/Oncology Treatment, [place] [address] [facility] [address] [place], Chair 9 Hem Onc Scenery 200 [facility] [place], [place] [address] 11/28/2023 4:00 PM EST [facility] [address] [facility] [place] [address] Sarah Vitale RN 132 [facility] [place] [address] 12/10/2023 9:20 AM EDT Office Visit Family Medicine [address] [place] [phone] Rhys Humphrey MD [address] [place] [address] [place] [address] 12/26/2023 7:30 AM EDT [facility] [address] [facility] [place] [phone] Sosa Freeman CRNP [address] [place] [address] 12/27/2023 11:00 AM EDT Office Visit Cardiology [address] [place] [address] Mi Neil PA-C [address] [place] [address] 01/18/2024 7:20 AM EDT Office Visit Family Medicine [address] [place] [phone] Rhys Humphrey MD [address] [place] [address] [place] [address] 03/18/2024 9:00 AM EDT Nurse Only Ancillary [address] [place] [address] [place], Nurse Annual Wellness [address] [place] [address] [place] [address] Scheduled Procedures Name Priority Associated Diagnoses Date/Ti [...] A LIFETIME-USE SMARTSET# [id number] Completed 06/29/2020, 03/16/2015 Pneumococcal Vaccine: 65+ Years [...] on File Type Date Recorded Patient Director Corporate Compliance Expl anation POLST 10/15/2019 3:17 PM POLST POLST 03/05/2019 POLST FORM Advance Directives and Living Will 01/27/2013 LIVING WILL Advance Directives and Living Will 01/27/2013 LIVING WILL Power of Chips Screen Tender 01/27/2013 POWER OF A TTORNEY Power of Chips Screen Tender 01/27/2013 POWER OF A TTORNEY Healthcare Agents on File Name Relationship Healthcare Agent Relationship Communication Cydney Benito Other - (no specific identity) Second Alternate Health Care Agent Anyi More Adult Child Health Care Roberth r of Chips Screen Tender Care Teams Cook Relief Relationship Specialty Start Date End Date Rhys Humphrey MD [address] [place] [address] [place] [address] PCP - General Family Medicine 06/09/21 documented as of this encounter
--- OUTSIDE RECORDS SUMMARY | 2023-12-07 21:40 | External Medical Summary | Summary of Care ---
Author Name Unknown Organization [facility] Address [address] [place] [address] Phone [phone] Care Team Providers Care Rough Patcher Name Role Phone Rhys Humphrey MD Primary Care Provide r Encounter Details Date Type Department Care Team (Late st Contact Info) Description 11/08/2023 Orders Only Family Medicine [address] [place] [phone] Rhys Humphrey MD [address] [place] [address] [place] [address] Allergies Active Allergy Reactions Criticality Noted Date Comments Adhesive Tape Other (Please comment),Hives High 09/29/2008 Caused welts Dextromethorphan-Gu aifenesin Neuro complications (Please comment) Medium 12/23/2021 Feels lightheaded/"foggy" documented as of this encounter (statuses as of 11/08/2023) Medications Medication Sig Dispensed Refills Start Date [...] before bedtime. 50 Cap 0 01/18/2021 Active Fzjfvcv-Tkcbfqlrs-Mm nc 333-133-5 MG Oral Tablet Take 1 [...] Inhalation Aerosol SolutionIndications: COPD, moderate ([facility]) Inhale 2 Puffs by mouth every [...] D, by GOLD 2017 classification ([facility]) Inhale 3 mL via nebulizer every [...] and 0.5 mg before bedtime. 0 Active documented as of this encounter (statuses as of 11/08/2023) Active Problems Problem Noted Date Diagnosed Date [...] couch") Medication Regimen o Other: anoro, arnradha, chaseir, chandler Self-Management plan o Prednisone 40mg daily [...] as of this encounter (statuses as of 11/08/2023) Resolved Problems Problem Noted Date Diagnosed Date [...] as of this encounter (statuses as of 11/08/2023) Immunizations Name Administration Dates Next Due COVID-19 mRNA, LNP-s, No Pre serve, 2-Dose Series ([employer]) 07/11/2021,11/14/2020,10/24/2020 Covid-19, Mrna, Lnp-s, Pf, B ivalent, 30 Mcg, IM, 12 yrs and above (Pfizer) 07/21/2022 Pneumococcal Conjugate Vacc, 13 Valent (Prevnar) 03/16/2015 Pneumococcal Conjugate Vacci ne, 20-valent ([id number]) 07/21/2022 Pneumococcal Polysaccharide PPV23 (Pneumovax) 03/05/2019,07/18/2007 Season [...] Care Team (Late st Contact Info) Description 11/08/2023 5:30 PM EST [facility] Visit [facility], [facility] [address] [place] [address] Sarah Vitale RN [address] [place] [address] 11/12/2023 2:15 PM EST Scheduled Telephone [facility], [facility] [address] [facility] [place] [address] Lovely Bravo RDN [address] [facility] [place] [address] 11/13/2023 8:30 AM EST Home Visit [facility], [facility] [address] [place] [address] Sarah Vitale, RN 132 [place] [address] 11/19/2023 8:20 AM EST Laboratory Laboratory Scenery [place] [address] [place] [phone] [place], Lab Scenery [address] [place] [address] 11/19/2023 9:30 AM EST Hem/Onc Treatment Hematology/Oncology Treatment, [place] 200 [facility], [place] [address] 11/20/2023 2:15 PM EST Hem/Onc Treatment Hematology/Oncology Treatment, [place] 200 [facility], [place] [address] [place], Chair 8 Hem Onc Scenery 200 [facility] [place] [address] 11/21/2023 2:15 PM EST Hem/Onc Treatment Hematology/Oncology Treatment, [place] 200 [facility], [place] [address] [place], Chair 9 Hem Onc Scenery 200 [facility] [place] [address] 12/10/2023 9:20 AM EDT Office Visit Family Medicine [address] [place] [phone] Rhys Humphrey MD [address] [place] [address] [place] [address] 12/26/2023 7:30 AM EDT Office Visit Sleep Disorders Ctr [facility] [address] [place] [phone] Sosa Freeman CRNP [address] [place] [address] 12/27/2023 11:00 AM EDT Office Visit Cardiology [address] [place] [address] Mi Neil PA-C [address] [place] [address] 01/18/2024 7:20 AM EDT Office Visit Family Medicine [address] [place] [phone] Rhys Humphrey MD [address] [place] [address] [place] [address] 03/18/2024 9:00 AM EDT Nurse Only Ancillary [address] [place] [address] [place], Nurse Annual Wellness [address] [place] [address] [place] [address] Scheduled Procedures Name Priority Associated Diagnoses Date/Ti [...] D LEVEL ONCE IN A LIFETIME-USE SMARTSET# [id number] Completed 06/29/2020, 03/16/2015 Pneumococcal Vaccine: 65+ Years [...] Diagnosis Comments XR CHEST 1 VIEW Routine 10/29/2023 CTA CHEST NON-CORONARY W CONTRAST Routine 10/29/2023 documented in this encounter Results * XR CHEST 1 VIEW (10/29/2023) Anatomical Region Laterality Modality Chest Other 10/29/2023 Zeyad Durant DO RADIOLOGY (RAD GE NERAL) * CTA CHEST NON-CORONARY W CONTRAST (10/29/2023) Anatomical Region Laterality Modality Chest, Cardio, Body Other 10/29/2023 Zeyad Dur[address] DO RAD CT documented in this encounter Advance Directives Documents on File Type Date Recorded Patient Product Development Manager Expl anation POLST 10/15/2019 3:17 PM POLST POLST 03/05/2019 POLST FORM Advance Directives and Living Will 01/27/2013 LIVING WILL Advance Directives and Living Will 01/27/2013 LIVING WILL Power of Traffic Routing Engineer 01/27/2013 POWER OF A TTORNEY Power of Traffic Routing Engineer 01/27/2013 POWER OF A TTORNEY Healthcare Agents on File Name Relationship Healthcare Agent Relationship Communication Cydney Benito Other - (no specific identity) Second Alternate Health Care Agent Anyi More Adult Child Health Care Roberth r of Traffic Routing Engineer Care Teams Rough Patcher Relationship Specialty Start Date End Date Rhys Humphrey MD [address] [place] [address] [place] [address] PCP - General Family Medicine 06/09/21 documented as of this encounter
--- OUTSIDE RECORDS SUMMARY | 2023-12-07 21:40 | External Medical Summary | Summary of Care ---
Author Name Unknown Organization [facility] Address [address] [place] [address] Phone [phone] Care Team Providers Care Port Warden Name Role Phone Rhys Gonzalez MD Primary Care Provide r Reason for Visit * Reason Onset Date Comments Medication Refill 11/09/2023 Encounter Details Date Type Department Care Team (Late st Contact Info) Description 11/09/2023 Refill Family Medicine [address] [place] [phone] Naida Goddard MD [address] [place] [address] [place] [phone] Moderate obstructive and restrictive lung disease Allergies Active Allergy Reactions Criticality Noted Date Comments Adhesive Tape Other (Please comment),Hives High 09/29/2008 Caused welts Dextromethorphan-Gu aifenesin Neuro complications (Please comment) Medium 12/23/2021 Feels lightheaded/"foggy" documented as of this encounter (statuses as of 11/09/2023) Medications Medication Sig Dispensed Refills Start Date [...] Each 0 11/11/2019 Active Nebulizers (NEBULIZER COMPRESSOR) MISCIndications:UNLOAD ASSOCIATE D, moderate ([facility]) Inhale via nebulizer. Use as directed. 1 Each 1 11/17/2019 Active Iron 325 (65 Fe) MG Oral Tablet Take 1 Tablet by mouth daily. 0 Active Cranberry 500 MG Oral Capsule Take 1 Capsule by mouth in the morning and 1 Capsule before bedtime. 50 Cap 0 01/18/2021 Active Xemcgkm-Efdiafdnu-G inc 333-133-5 MG Oral Tablet Take 1 [...] :COPD, group D, by GOLD 2017 classification ([facility] [...] or Wheezing. 18 g 5 11/09/2023 Active Albuterol Sulfate HFA 108 (90 Base) MCG/ACT Inhalation Aerosol SolutionIndications :COPD, moderate (HCC) Inhale 2 Puffs by mouth every 4 hours as needed for Cough, Shortness of Breath or Wheezing. 18 g 5 01/01/2023 Discontinu ed(Refill) documented as of this encounter (statuses as of 11/09/2023) Active Problems Problem Noted Date Diagnosed Date [...] as of this encounter (statuses as of 11/09/2023) Resolved Problems Problem Noted Date Diagnosed Date [...] as of this encounter (statuses as of 11/09/2023) Immunizations Name Administration Dates Next Due COVID-19 mRNA, LNP-s, No Pre serve, 2-Dose Series ([employer]) 07/11/2021,11/14/2020,10/24/2020 Covid-19, Mrna, Lnp-s, Pf, B ivalent, 30 Mcg, IM, 12 yrs and above (Pfizer) 07/21/2022 Pneumococcal Conjugate Vacc, 13 Valent (Prevnar) 03/16/2015 Pneumococcal Conjugate Vacci ne, 20-valent ([id number]) 07/21/2022 Pneumococcal Polysaccharide PPV23 (Pneumovax) 03/05/2019,07/18/2007 Season [...] encounter Miscellaneous Notes * Telephone Encounter - Bessy Enamorado RPh - 11/09/2023 4:53 PM ESTSigned Prescriptions: Disp Refills Albuterol Sulfate HFA 108 (90 Base) MCG/AC*18 g 5 Sig: Inhale 2Puffs by mouth every 4 hours as needed for Cough, Shortness of Breath or Wheezing.Authorizing Provider: Angela GONZALEZ User: BSESY ENAMORADO documented in this encounter Plan of Treatment Upcoming Encounters Date Type Department Care Team (Late st Contact Info) Description 11/13/2023 8:30 AM EST [facility] [place] [address] [place] [address] Sarah Vitale, RN [address] [place] [address] 11/19/2023 8:20 AM EST Laboratory Laboratory [facility] [place] [address] [place] [phone] Park, Lab Scenery [address] [place], [place] [address] 11/19/2023 9:30 AM EST Hem/Onc Treatment Hematology/Oncology Treatment, [address], [place] [address] 11/20/2023 2:15 PM EST Hem/Onc Treatment Hematology/Oncology Treatment, [address], [place] [address] Apple, Chair 8 Hem Onc Scenery 200 [facility] [place], [place] [address] 11/21/2023 2:15 PM EST Hem/Onc Treatment Hematology/Oncology Treatment, [address], [place] [address] Apple, Chair 9 Hem Onc Scenery 200 [facility] [place], [place] [address] 11/28/2023 4:00 PM EST [facility] Visit [facility], [facility] [place] [address] [place] [address] Sarah Vitale, RAYNA [address] [place] [address] 12/10/2023 9:20 AM EDT Office Visit [address] [phone] Rhys Gonzalez MD [address] [place] [address] [place] [address] 12/26/2023 7:30 AM EDT Office Visit Sleep Disorders Ctr [facility] [address] [place] [phone] Sosa Freeman CRNP [address] [place] [address] 12/27/2023 11:00 AM EDT Office Visit Cardiology [address] [place] [address] Mi Neil PA-C [address] [place] [address] 01/18/2024 7:20 AM EDT Office Visit Family Medicine [address] [place] [phone] Rhys Gonzalez MD [address] [place] [address] [place] [address] 03/18/2024 9:00 AM EDT Nurse Only Ancillary [address] [place] [address] [place], Nurse Annual Wellness [address] [place] [address] [place] [address] Scheduled Procedures Name Priority Associated Diagnoses Date/Ti [...] D LEVEL ONCE IN A LIFETIME-USE SMARTSET# [id number] Completed 06/29/2020, 03/16/2015 Pneumococcal Vaccine: 65+ Years [...] disease Chronic airway obstruction, not elsewhere classified documented in this encounter Advance Directives Documents on File Type Date Recorded Patient Trestle Mechanic Expl anation POLST 10/15/2019 3:17 PM POLST POLST 03/05/2019 POLST FORM Advance Directives and Living Will 01/27/2013 LIVING WILL Advance Directives and Living Will 01/27/2013 LIVING WILL Power of Piece Hand 01/27/2013 POWER OF A TTORNEY Power of Piece Hand 01/27/2013 POWER OF A TTORNEY Healthcare Agents on File Name Relationship Healthcare Agent Relationship Communication Cydney Benito Other - (no specific identity) Second Alternate Health Care Agent Anyi More Adult Child Health Care Roberth cooper of Piece Hand Care Teams Port Warden Relationship Specialty Start Date End Date Rhys Gonzalez MD [address] [place] [address] [place] [address] PCP - General Family Medicine 06/09/21 documented as of this encounter
--- OUTSIDE RECORDS SUMMARY | 2023-12-07 21:40 | External Medical Summary | Summary of Care ---
Author Name Unknown Organization [facility] Address [address] [place] [address] Phone [phone] Care Team Providers Care Alum Plant Operator Name Role Phone Rhys Humphrey MD Primary Care Provide r Reason for Visit * Reason Onset Date Comments Advice 03/16/2023 Follow up with C pap Encounter Details Date Type Department Care Team (Late st Contact Info) Description 03/16/2023 Telephone Family Medicine [address] [place] [phone] Rhys Humphrey MD [address] [place] [address] [place] [address] Advice (Follow up with Cpap) Allergies Active Allergy Reactions Criticality Noted Date [...] for Dizziness. 30 Tablet 0 3 Active Famotidine 20 MG Oral Tablet (Pepcid) Take 1 Tab by mouth 2 times a day as needed for Heartburn. 180 Tab 3 1 023 Discontinued(Wa dication List Clean Up) Furosemide 40 MG Oral Tablet (Lasix)Indications :fluid Take by mouth 1 Tablet in the morning. May take an additional tablet as needed for weight gain or shortness of breath.. 120 Tablet 3 2 023 Discontinued Losartan Potassium 50 MG Oral Tablet (Cozaar)Indication s:HTN, goal below 140/90 TAKE TWO TABLETS BY MOUTH EVERY DAY 180 Tablet 3 2 023 Discontinued(Re fill) Anoro Ellipta 62.5-25 MCG/INH Inhalation Aerosol Powder [...] 30 Each 11 2 023 Discontinued(Re fill) Benzonatate 100 MG Oral Capsule (Tessalon Perles) Take by mouth 1 Capsule as needed in the morning AND 1 Capsule as needed at noon AND 1 Capsule as needed in the evening for Cough. 30 Capsule 1 2 023 Discontinued(Re fill) Loratadine 10 MG Oral Tablet (Claritin)Indicati ons:Dysfunction of both eustachian tubes Take 1 Tablet by mouth in the morning. For nasal congestion and ear pressure. 30 Tablet 1 3 023 Discontinued(Wa dication List Clean Up) Atorvastatin Calcium 40 MG Oral Tablet (Lipitor)Indicatio ns:Dyslipidemia, goal LDL below 100 TAKE ONE TABLET BY MOUTH EVERY DAY 90 Tablet 1 3 023 Discontinued(Re fill) Clopidogrel Bisulfate 75 MG Oral Tablet (pLAVix)Indication s:TIA (transient ischemic attack) TAKE ONE TABLET BY MOUTH EVERY DAY 90 Tablet 1 3 023 Discontinued(Re fill) Albuterol Sulfate HFA 108 (90 Base) MCG/ACT Inhalation Aerosol SolutionIndication s:COPD, moderate (HCC) Inhale 2 Puffs by mouth every 4 hours as needed for Cough, Shortness of Breath or Wheezing. 18 g 5 3 024 Discontinued(Re fill) Premarin 0.625 MG/GM Vaginal Cream (Estrogens Conjugated)Indicat ions:Vaginal irritation Administer 0.5 g into the vagina at bedtime on Sunday and Sunday only. 42.5 g 1 3 023 Discontinued(Re fill) Ipratropium-Albute rol 0.5-2.5 (3) MG/3ML Inhalation Solution (Duoneb)Indication s:COPD, group D, by GOLD 2017 classification ([facility]) Inhale 3 mL via nebulizer every 6 hours as needed for Shortness of Breath or Wheezing. 360 mL 0 3 023 Discontinued Ramelteon 8 MG Oral Tablet (Rozerem)Indicatio ns:Insomnia, unspecified type TAKE ONE TABLET BY MOUTH AT BEDTIME 30 Tablet 3 3 023 Discontinued Diclofenac Sodium 1 % External Gel (Voltaren)Indicati ons:pain Apply 2 g topically to affected area daily as needed for Pain. Apply to L shoulder 350 g 2 3 023 Discontinued(Re fill) Gabapentin 300 MG Oral Capsule (Neurontin)Indicat ions:Peripheral polyneuropathy,Mark n in both lower extremities Take 3 Capsules by mouth every night at bedtime. 90 Capsule 3 3 023 Discontinued documented as [...] mRNA, LNP-s, No Pre serve, 2-Dose Series ([employer]) 07/11/2021,11/14/2020,10/24/2020 Covid-19, Mrna, Lnp-s, Pf, B ivalent, 30 Mcg, IM, 12 yrs and above (Pfizer) 07/21/2022 Pneumococcal Conjugate Vacc, 13 Valent (Prevnar) 03/16/2015 Pneumococcal Conjugate Vacci ne, 20-valent ([id number]) 07/21/2022 Pneumococcal Polysaccharide PPV23 (Pneumovax) 03/05/2019,07/18/2007 Season [...] encounter Miscellaneous Notes * Telephone Encounter - Luis Cecy Maria Eugenia, ISELA - 11/12/2023 6:47 PM EST Pt scheduled to see PITER Meyer on 12/26/23. * Telephone Encounter - Jessenia Neves RN - 04/06/2023 11:32 AM EDT See other encounter [facility] ordered cpap. * Telephone Encounter - Jessenia Neves RN - 04/04/2023 10:42 AM EDT Left message for the patient to call the office. * Telephone Encounter - Jessenia Neves RN - 03/30/2023 9:05 AM EDT Message sent to [facility] home to discuss Cpap, pt is sched for appointment today with [facility], see message below. * Telephone Encounter - Jessenia Neves RN - 03/26/2023 10:36 AM EDT Left message for the patient to call the office to see if she heard from sleep med and what her thoughts were. * Telephone Encounter - Blossom Grewal DO - 03/20/2023 4:06 PM EDT I'm happy to order what she needs. I see the HSAT order is within the year. Her insurance may require another clinic note. If so, please schedule her. We can also schedule the HSAT. * Telephone Encounter - Jessenia Neves RN - 03/16/2023 11:22 AM EDT Pt was seen for her annual wellness visit with me today, pt is still struggling with insomnia and not sleeping well at all. Pt did see Sleep Medicine 03/22/23 and it looks like a new order was to be placed for another CPAP. Pt states its been 2 yrs since they were going to replace the CPAP. Pt is suppose to be using it with her oxygen. Pt states she slept so much better using it. Pt states she would like to use [facility] [employer] [facility] [employer] [facility] in [place], before she was using [facility] and does not want to use them again. I do see a message from May 2022 from Page: Page Lambert CMA Received fax from [facility] stating since the patient has not used cpap in 2 years she will need to have a new baseline sleep study for insurance to cover this. At this time the order is being cancelled for new cpap Then I see a telephone encounter on 12/29/22 that Upon download and scoring of HST, it was noted that only 4 hours and 38 minutes had been recorded. Out of that recording time, the study was missing large portions of PTAF. The patient had called the [facility] sleep lab as she was having difficulty gettingthe HST set up and she was assisted over the phone but seems like she still had difficulty completing the study. The study needs repeated. I do see an order that got placed for DME on 02/27/23 for a CPAP Can you Please call pt and get her set up with whatever she may need, thank you. documented in this encounter Plan of Treatment Upcoming Encounters Date Type Department Care Team (Late st Contact Info) Description 11/19/2023 8:20 AM EST Laboratory [facility] [place] [address] [place] [phone] Apple, Lab Scenery [address] [facility] [place] [address] 11/19/2023 9:30 AM EST Hem/Onc Treatment Hematology[facility], [place] [facility] [address] 11/20/2023 2:15 PM EST Hem/Onc Treatment Hematology/Oncology Treatment, [place] [facility] [address] Apple, Chair 8 Hem Onc Scenery [address] [place] [address] 11/21/2023 2:15 PM EST Hem/Onc Treatment Hematology/Oncology Treatment, [place] [facility] [address] Apple, Chair 9 Hem Onc Scenery 200 [place] [address] 11/28/2023 4:00 PM EST [facility] 132 [facility] [place] [address] Sarah Vitale RN 132 [facility] [place] [address] 12/10/2023 9:20 AM EDT Office Visit Family Medicine [address] [place] [phone] Rhys Humphrey MD [address] [place] [address] [place] [address] 12/26/2023 7:30 AM EDT Office Visit Sleep Disorders Ctr [facility] [address] [place] [phone] Sosa Freeman CRNP [address] [place] [address] 12/27/2023 11:00 AM EDT Office Visit Cardiology [address] [place] [address] Mi Neil PA-C [address] [place] [address] 01/18/2024 7:20 AM EDT Office Visit Family Medicine [address] [place] [phone] Rhys Humphrey MD [address] [place] [address] [place] [address] 03/18/2024 9:00 AM EDT Nurse Only Ancillary [address] [place] [address] [place], Nurse Annual Wellness [address] [place] [address] [place] [address] Scheduled Procedures Name Priority Associated Diagnoses Date/Ti [...] D LEVEL ONCE IN A LIFETIME-USE SMARTSET# [id number] Completed 06/29/2020, 03/16/2015 Pneumococcal Vaccine: 65+ Years [...] Documents on File Type Date Recorded Patient Sandwich Hand Expl anation POLST 10/15/2019 3:17 PM POLST POLST 03/05/2019 POLST FORM Advance Directives and Living Will 01/27/2013 LIVING WILL Advance Directives and Living Will 01/27/2013 LIVING WILL Power of Sheep Farm Worker 01/27/2013 POWER OF A TTORNEY Power of Sheep Farm Worker 01/27/2013 POWER OF A TTORNEY Healthcare Agents on File Name Relationship Healthcare Agent Relationship Communication Cydney Benito Other - (no specific identity) Second Alternate Health Care Agent Anyi More Adult Child Health Care Roberth r of Sheep Farm Worker Care Teams Alum Plant Operator Relationship Specialty Start Date End Date Rhys Humphrey MD [address] [place] [address] [place] [address] PCP - General Family Medicine 06/09/21 documented as of this encounter
--- OUTSIDE RECORDS SUMMARY | 2023-12-07 21:40 | External Medical Summary | Summary of Care ---
Author Name Unknown Organization [facility] Address [address] [facility] [place] [address] Phone [phone] Care Team Providers Care Plumbing Engineer Name Role Phone Rhys Humphrey MD Primary Care Provide r Reason for Visit * Reason Onset Date Comments [facility]: Maintenance 11/12/2023 Encounter Details Date Type Department Care Team (Late st Contact Info) Description 11/12/2023 Telephone [facility], [facility] [address] [place] [address] [facility], Nurse [place] [address] [place] [address] [facility]: Maintenance Allergies Active Allergy [...] before bedtime. 50 Cap 0 01/18/2021 Active Vlddoqp-Wfornzmfd-Ly nc 333-133-5 MG Oral Tablet Take 1 [...] Base) MCG/ACT Inhalation Aerosol SolutionIndications: COPD, moderate ([facility]) Inhale 2 Puffs by mouth every [...] mRNA, LNP-s, No Pre serve, 2-Dose Series ([employer]) 07/11/2021,11/14/2020,10/24/2020 Covid-19, Mrna, Lnp-s, Pf, B ivalent, 30 Mcg, IM, 12 yrs and above (Pfizer) 07/21/2022 Pneumococcal Conjugate Vacc, 13 Valent (Prevnar) 03/16/2015 Pneumococcal Conjugate Vacci ne, 20-valent ([id number]) 07/21/2022 Pneumococcal Polysaccharide PPV23 (Pneumovax) 03/05/2019,07/18/2007 Season [...] 106/39 Plan: Route to RNCM (Registered Nurse Paving Inspector) in care team Left message to return call Has appt tomorrow with RNCM documented in this encounter Plan of Treatment Upcoming Encounters Date Type Department Care Team (Late st Contact Info) Description 11/13/2023 8:30 AM EST [facility], [facility] [place] [address] Sarah Vitale RN 132 [facility] [place] [address] 11/19/2023 8:20 AM EST Laboratory Laboratory Scenery [place] [address] [place] [phone] Apple, Lab Scenery [address] [place] [address] 11/19/2023 9:30 AM EST Hem/Onc Treatment Hematology/Oncology Treatment, [place] [facility] [address] 11/20/2023 2:15 PM EST Hem/Onc Treatment Hematology/Oncology Treatment, [place] [facility] [address] Apple, Chair 8 Hem Onc Scenery [address] [place] [address] 11/21/2023 2:15 PM EST Hem/Onc Treatment Hematology/Oncology Treatment, [place] [facility] [address] Apple, Chair 9 Hem Onc Scenery 200 [facility] [place], [place] [address] 11/28/2023 4:00 PM EST [facility] 132 [facility] [place] [address] Sarah Vitale RN 132 [facility] [place] [address] 12/10/2023 9:20 AM EDT Office Visit Family Medicine [address] [place] [phone] Rhys Humphrey MD [address] [place] [address] [place] [address] 12/26/2023 7:30 AM EDT [facility] 132 [facility] [place] [phone] Sosa Freeman CRNP [address] [place] [address] 12/27/2023 11:00 AM EDT Office Visit Cardiology [address] [place] [address] Mi Neil PA-C [address] [place] [address] 01/18/2024 7:20 AM EDT Office Visit Family Medicine [address] [place] [phone] Rhys Humphrey MD [address] [place] [address] [place] [address] 03/18/2024 9:00 AM EDT Nurse Only Ancillary [address] [place] [address] [place], Nurse Annual Wellness [address] [place] [address] [place] [address] Scheduled Procedures Name Priority Associated Diagnoses Date/Ti [...] D LEVEL ONCE IN A LIFETIME-USE SMARTSET# [id number] Completed 06/29/2020, 03/16/2015 Pneumococcal Vaccine: 65+ Years [...] Documents on File Type Date Recorded Patient Transportation Project Manager Expl anation POLST 10/15/2019 3:17 PM POLST POLST 03/05/2019 POLST FORM Advance Directives and Living Will 01/27/2013 LIVING WILL Advance Directives and Living Will 01/27/2013 LIVING WILL Power of Manager Nc 01/27/2013 POWER OF A TTORNEY Power of Manager Nc 01/27/2013 POWER OF A TTORNEY Healthcare Agents on File Name Relationship Healthcare Agent Relationship Communication Cydney Benito Other - (no specific identity) Second Alternate Health Care Agent Anyi More Adult Child Health Care Roberth r of Manager Nc Care Teams Plumbing Engineer Relationship Specialty Start Date End Date Rhys Humphrey MD [address] [place] [address] [place] [address] PCP - General Family Medicine 06/09/21 documented as of this encounter
--- OUTSIDE RECORDS SUMMARY | 2023-12-07 21:40 | External Medical Summary | Summary of Care ---
Author Name Unknown Organization [facility] Address [address] [place] [address] Phone [phone] Care Team Providers Care Drywaller Name Role Phone Rhys Humphrey MD Primary Care Provide r Reason for Visit * Reason Onset Date Comments Encounter Created in Error 11/06/2023 Encounter Details Date Type Department Care Team (Latest Contact Info) Description 11/06/2023 12:30 PM EST Scheduled Telephone [facility], [facility] [address] [facility] [place] [address] Lovely Bravo, ANIBAL [address] [facility] [place] [address] Canceled (Clinician Appointment Cancel Rescheduled at later date) Allergies Active Allergy Reactions Criticality Noted Date [...] before bedtime. 50 Cap 0 01/18/2021 Active Nnwaapt-Zrerjtkmr-By nc 333-133-5 MG Oral Tablet Take 1 [...] the morning. 30 Tablet 1 11/05/2023 Active documented as of this encounter (statuses [...] mRNA, LNP-s, No Pre serve, 2-Dose Series ([employer]) 07/11/2021,11/14/2020,10/24/2020 Covid-19, Mrna, Lnp-s, Pf, B ivalent, 30 Mcg, IM, 12 yrs and above ([employer]) 07/21/2022 Pneumococcal Conjugate Vacc, 13 Valent (Prevnar) 03/16/2015 Pneumococcal Conjugate Vacci ne, 20-valent ([id number]) 07/21/2022 Pneumococcal Polysaccharide PPV23 (Pneumovax) 03/05/2019,07/18/2007 Season [...] Description 11/19/2023 8:20 AM EST Laboratory Laboratory [facility] [place] [address] [place] [phone] Apple Lab [facility] 200 [facility] [place] [address] 11/19/2023 9:30 AM EST Hem/Onc Treatment Hematology/Oncology Treatment, [address] [address] 11/20/2023 2:15 PM EST Hem/Onc Treatment Hematology/Oncology Treatment, [address] [address] Apple, Chair 8 Hem Onc Scenery 200 [facility] [place] [address] 11/21/2023 2:15 PM EST Hem/Onc Treatment Hematology/Oncology Treatment, [address] [address] Apple, Chair 9 Hem Onc Scenery 200 [facility] [place] [address] 11/28/2023 4:00 PM EST [facility] 132 [facility] [place] [address] Sarah Vitale, RAYNA 132 [facility] [place] [address] 12/10/2023 9:20 AM EDT Office Visit Family Medicine [address] [place] [phone] Rhys Humphrey MD [address] [place] [address] [place] [address] 12/26/2023 7:30 AM EDT Office Visit Sleep Disorders Ctr [facility] [address] [place] [phone] Sosa Freeman CRNP [address] [place] [address] 12/27/2023 11:00 AM EDT Office Visit Cardiology [address] [place] [address] Mi Neil, CECI [address] [place] [address] 01/18/2024 7:20 AM EDT Office Visit Family Medicine [address] [place] [phone] Rhys Humphrey MD [address] [place] [address] [place] [address] 03/18/2024 9:00 AM EDT Nurse Only Ancillary [address] [place] [address] [place], Nurse Annual [address] [place] [address] Scheduled Procedures Name Priority Associated Diagnoses Date/Ti [...] D LEVEL ONCE IN A LIFETIME-USE SMARTSET# [id number] Completed 06/29/2020, 03/16/2015 Pneumococcal Vaccine: 65+ Years [...] Documents on File Type Date Recorded Patient Lime Kiln Worker Helper Expl anation POLST 10/15/2019 3:17 PM POLST POLST 03/05/2019 POLST FORM Advance Directives and Living Will 01/27/2013 LIVING WILL Advance Directives and Living Will 01/27/2013 LIVING WILL Power of Commercial Floor Covering Installer 01/27/2013 POWER OF A TTORNEY Power of Commercial Floor Covering Installer 01/27/2013 POWER OF A TTORNEY Healthcare Agents on File Name Relationship Healthcare Agent Relationship Communication Cydney Benito Other - (no specific identity) Second Alternate Health Care Agent Anyi More Adult Child Health Care Roberth cooper of Commercial Floor Covering Installer Care Teams Drywaller Relationship Specialty Start Date End Date Rhys Humphrey MD [address] [place] [address] [place] [phone] PCP - General Family Medicine 06/09/21 documented as of this encounter
--- OUTSIDE RECORDS SUMMARY | 2023-12-07 21:40 | External Medical Summary | Summary of Care ---
Author Name Unknown Organization [facility] Address [address] [place] [address] Phone [phone] Care Team Providers Care Police Specialist Name Role Phone Rhys Humphrey MD Primary Care Provide r Reason for Visit * Reason Onset Date Comments Hospital Follow-Up Hospital Follow-Up 11/07/2023 Encounter Details Date Type Department Care Team (Late st Contact Info) Description 11/07/2023 11:20 AM EST Office Visit Family [address] [place] [phone] Rhys Humphrey MD [address] [place] [address] [place] [address] Hospital discharge follow-up*; COPD exacerbation (HCC); Chronic hypoxemic respiratory failure (HCC) Allergies Active Allergy Reactions Criticality Noted Date Comments Adhesive Tape Other (Please comment),Hives High 09/29/2008 Caused welts Dextromethorphan-Gu aifenesin Neuro complications (Please comment) Medium 12/23/2021 Feels lightheaded/"foggy" documented as of this encounter (statuses as of 11/07/2023) Medications Medication Sig Dispensed Refills Start Date [...] Each 0 11/11/2019 Active Nebulizers (NEBULIZER COMPRESSOR) MISCIndications:CERTIFIED NURSE OPERATING ROOM D, 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 Use as directed. 1 Each 1 11/17/2019 Active Iron 325 (65 Fe) MG Oral Tablet Take 1 Tablet by mouth daily. 0 Active Cranberry 500 MG Oral Capsule Take 1 Capsule by mouth in the morning and 1 Capsule before bedtime. 50 Cap 0 01/18/2021 Active Jgisvad-Mtlcwdnyq-J inc 333-133-5 MG Oral Tablet Take 1 [...] :COPD, group D, by GOLD 2017 classification ([facility] [...] Tablet (Lasix)Indications: Chronic diastolic congestive heart failure ([facility] [...] and 0.5 mg before bedtime. 0 Active Premarin 0.625 MG/GM Vaginal Cream (Estrogens Conjugated)Indicati ons:Vaginal irritation,Atrophic vaginitis Administer 0.5 g into the vagina at bedtime on Sunday and Sunday only. 42.5 g 1 06/08/2023 4 Discontinu ed(Patient preference /discontin uation) HYDROcodone Bit-Homatrop MBr 5-1.5 MG/5ML Oral Solution (Hydromet) Take 5 mL by mouth every 6 hours as needed for Cough. 0 4 Discontinu ed(Patient preference /discontin uation) Fluticasone Furoate 100 MCG/ACT Inhalation Aerosol Powder Breath Activated (ARNUITY ellipta)Indications :COPD, moderate (HCC),COPD, group D, by GOLD 2017 classification (HCC) Inhale 1 Puff by mouth in the morning. In addition to anoro. 30 Each 08/20/2023 4 Discontinu ed(Medicat ion List Clean Up) Anoro Ellipta 62.5-25 MCG/ACT Inhalation Aerosol Powder Breath Activated (umeclidinium-vilan terol)Indications:C OPD, moderate (HCC),COPD, group D, by GOLD 2017 classification (HCC) Inhale 1 Puff by mouth in the morning. 30 Each 08/20/2023 4 Discontinu ed(Medicat ion List Clean Up) guaiFENesin-Codeine 100-10 MG/5ML Oral Solution (Robitussin AC) Take 5 mL by mouth 3 times a day as needed for Cough. 0 4 Discontinu ed(Patient preference /discontin uation) documented as of this encounter (statuses as of 11/07/2023) Active Problems Problem Noted Date Diagnosed Date [...] as of this encounter (statuses as of 11/07/2023) Resolved Problems Problem Noted Date Diagnosed Date [...] as of this encounter (statuses as of 11/07/2023) Immunizations Name Administration Dates Next Due COVID-19 mRNA, LNP-s, No Pre serve, 2-Dose Series (Pfizer) 07/11/2021,11/14/2020,10/24/2020 Covid-19, Mrna, Lnp-s, Pf, B ivalent, 30 Mcg, IM, 12 yrs and above (Pfizer) 07/21/2022 Pneumococcal Conjugate Vacc, 13 Valent (Prevnar) 03/16/2015 Pneumococcal Conjugate Vacci ne, 20-valent ([id number]) 07/21/2022 Pneumococcal Polysaccharide PPV23 (Pneumovax) 03/05/2019,07/18/2007 Season [...] Sign Reading Time Taken Comments Blood Pressure 102/44 11/07/2023 11:08 AM EST Pulse 75 11/07/2023 11:08 AM EST Temperature 36.5 C (97.7 F) 11/07/2023 11:[address] Respiratory Rate - - Oxygen Saturation 89% 11/07/2023 11:08 AM EST on 4L O2 Inhaled Oxygen Concentration - - Weight 68.3 kg (150 lb 9.6 oz) 11/07/2023 11:08 AM EST Height - - Body Mass Index 29.41 11/02/2023 1:44 PM EST documented in this encounter Progress Notes * Rhys Humphrey MD - 11/07/2023 11:29 AM EST Subjective: HPI: Keisha Linares is a 82 year old female with hx of TIA (03/2021), b/l carotid endarterectomy, HTN, COPD, prediabetes, CKD II-III, diastolic heart failure, GERD, ISELA on CPAP, hx of follicular lymphoma, Insomnia, depression, RLS, Mild Aortic valve stenosis, and Peripheral neuropathy, Neuroendocrine carcinoma of the lung seen for Pt was admitted to the hospital from 10/29-10/30 Acute on Chronic respiratory failure: -2/2 COPD exacerabation + lung carcinoma -respiratory biofire: neg -discharged on zpak and prednisone 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 Multiple Vitamins-Minerals [...] and 1 Capsule before bedtime. 50 Cap Ujicndu-Klbxtjexc-Ppft 333-133-5 MG Oral Tablet Take 1 Tablet by mouth daily. Aspirin 81 MG Oral Tablet Chewable Take 1 Tablet by mouth in the morning. Fluticasone Propionate 50 MCG/ACT Nasal Suspension Administer 2 Sprays into each nostril in the morning. 16 g 3 Docusate Sodium 100 MG Oral Capsule (Colace) [...] of Breath or Wheezing. 360 mL 3 Diclofenac Sodium 1 % External Gel (Voltaren) Apply 2 g topically to affected area daily as needed for Pain. Apply to L shoulder 350 g 2 Furosemide 40 MG Oral Tablet (Lasix) One tablet daily with an extra tablet as needed for swelling 120 Tablet 3 Calmoseptine 0.44-20.6 % External Ointment (Menthol-Zinc Oxide) [...] Tablet by mouth daily. 180 Tablet 1 Clobetasol Propionate 0.05 % External Cream (Temovate) Apply to area twice daily x 1 month , then nightly x 2 months, then twice weekly x 3 months 60 g 1 Benzonatate 100 MG Oral Capsule Take 1 Capsule by mouth 3 times a day as needed for Cough. 30 Capsule 0 Prochlorperazine Maleate 10 MG Oral Tablet (Compazine) Take 1 Tablet by mouth every 6 hours as needed for Nausea. 60 Tablet 2 Loratadine 10 MG Oral Tablet (Claritin) Take 10mg (1 tablet) once a day for 5 days starting on day 3 of each cycle 20 Tablet 0 traZODone HCl 50 MG Oral Tablet (Desyrel) Take 1 Tablet by mouth at bedtime. 30 Tablet 5 Ondansetron HCl 8 MG Oral Tablet Take 1 Tablet by mouth every 8 hours as needed for Nausea. 90 Tablet 3 Atorvastatin Calcium 40 MG Oral Tablet (Lipitor) TAKE ONE TABLET BY MOUTH EVERY DAY 90 Tablet 2 Allopurinol 100 MG Oral Tablet (Zyloprim) TAKE ONE TABLET BY MOUTH IN THE MORNING 30 Tablet 0 Gabapentin 300 MG Oral Capsule (Neurontin) TAKE THREE CAPSULES BY MOUTH AT BEDTIME 90 Capsule 3 levoFLOXacin 500 MG Oral Tablet Take 1 Tablet by mouth in the morning. Start on day 7 of chemo for total 10 days. 10 Tablet 3 Allopurinol 100 MG Oral Tablet (Zyloprim) Take 1 Tablet by mouth in the morning. 30 Tablet 1 Formoterol Fumarate 20 MCG/2ML Inhalation Nebulization Solution Inhale 1 Inhalation by mouth in themorning. Budesonide 0.5 MG/2ML Inhalation Suspension (Pulmicort) Inhale 0.5 mg via nebulizer in the morning and 0.5 mg before bedtime. No current facility-administered medications for this visit. [...] Date BREAST LESION,OTHER,EXCISION 1995 Breast Lesion Excise BRONCHOSCOPY, DX W/ EBUS, 1-2 NODES N/A 08/10/2023 BRONCHOSCOPY, RIGID/FLEXIBLE, INCLUDE FLUORO GUIDANCE, WHEN PERFORMED; W/ EBUS GUIDED TRANSTRACH AND/OR TRANSBRONCH SAMPLING, 1 OR 2 MEDIASTINAL AND/OR HILAR LYMPH NODE STATIONS/STRUCTURES performed by Surjit Fernandez MD at OR [facility] CERV;VAG CANCER SCREEN;PEL & B 03/2000 COLONOSCOPY 03/03/2013 diverticulosis, polyps, internal hemorrhoids COLONOSCOPY, DIAGNOSTIC (RECTUM) 07/31/2017 diverticulosis/[facility] COLONOSCOPY, DIAGNOSTIC (RECTUM) 09/09/2021 diverticulosis / [facility] COLORECTAL CANCER SCREEN; NOT AT RISK 11/[address] ABDOMEN/PELVIS 04/02/2013 mesenteric lymphadenopathy concerning for lymphoma DIGITAL RECTAL EXAM,ANNUAL 03/2000 EGD, FLEXIBLE, DIAGNOSTIC 03/03/2013 mild gastritis EGD, FLEXIBLE, DIAGNOSTIC 07/31/2017 normal bx, hiatal hernia/[facility] EGD, FLEXIBLE, DIAGNOSTIC 10/14/2021 reflux esophagitis, hiatal hernia / [facility] EGD, FLEXIBLE, DIAGNOSTIC 09/09/2021 hiatal hernia / [facility] HEMORRHOIDECTOMY, SIMPLE, 1 COLUMN 1989 Hemorrhoidectomy,Int/Ext,Simple INFORMATION L carotid endarterectomy. INFORMATION 07/26/2023 L TCAR. MAMMOGRAM SCREENING-BILATERAL 03/2000 SIGMOIDOSCOPY, DIAGNOSTIC 1996 SPIROMETRY B/A BRONCHODILATOR 01/06/2005 obstructive airway disease THROMBOENDARECTOMY W/PATCH,NECK INCISION Right carotid endarterectomy done in [place] TOTAL ABD HYSTERECTOMY W/WO REMOVAL OF TUBE(S) [...] Types: Cigarettes Quit date: 10/01/2001 Years since quittin.1 Smokeless tobacco: Never Substance Use Topics Alcohol use: No Vaping/E-Cigarette Use Vaping/E-Cigarette Use Never User Vaping/E-Cigarette Substances Vaping/E-Cigarette Devices ROS: -Per HPI OBJECTIVE: BP 102/44 | Pulse 75 | Temp 36.5 C (97.7 F) | Wt 68.3 kg (150 lb 9.6 oz) | SpO2 89% Comment: on4L O2 | BMI 29.41 kg/m | BSA 1.7 m PHYSICAL EXAM: Vitals are reviewed General:. NAD, well developed Lungs: fair air entry b/l, no wheezing - NC in place ASSESSMENT/PLAN: Pt is doing very well on current regimen - continue with 4L of supplement use Will do follow up in 2 months Hospital discharge follow-up (Primary) - DISCH MED RECON CUR MED LIS COPD exacerbation (HCC) Chronic hypoxemic respiratory failure (HCC) Follow Up: Return in about 2 months (around 01/06/2024). Rhys Humphrey MD [place] [phone] documented in this encounter Nursing Notes * Tiffanie Murrell CMA - 11/07/2023 11:02 AM EST She is here for follow up from hospital discharge from [facility] 10/30/2023. She was admitted for respiratory failure. documented in this encounter Plan of Treatment Upcoming Encounters Date Type Department Care Team (Late st Contact Info) Description 11/08/2023 5:30 PM EST [facility] Visit [facility], [facility] [address] [facility] [place] [address] Sarah Vitale, RAYNA [address] [facility] [place] [address] 11/12/2023 2:15 PM EST Scheduled Telephone [facility], [facility] [address] [facility] [place] [address] Lovely Bravo RDN [address] [facility] [place] [address] 11/13/2023 8:30 AM EST Home Visit [facility], [facility] [address] [place] [address] Sarah Vitale, RN [address] [place] [address] 11/19/2023 8:20 AM EST Laboratory Laboratory Scenery [place] [address] [place] [phone] [place], Lab Scenery [address] [place] [address] 11/19/2023 9:30 AM EST Hem/Onc Treatment [facility], [place] [facility] [address] 11/20/2023 2:15 PM EST Hem/Onc Treatment [facility], [place] [facility] [address] Apple, Chair 8 Hem Onc Scenery [address] [facility] [place], [place] [address] 11/21/2023 2:15 PM EST Hem/Onc Treatment Hematology/Oncology Treatment, [place] [address] [facility], [place] [address] Apple, Chair 9 Hem Onc Scenery [address] [place] [address] 12/10/2023 9:20 AM EDT Office Visit Family Medicine [address] [place] [phone] Rhys Humphrey MD [address] [place] [address] [place] [address] 12/26/2023 7:30 AM EDT [facility] [address] [place] [phone] Sosa Freeman CRNP [address] [place] [address] 12/27/2023 11:00 AM EDT Office Visit Cardiology [address] [place] [address] Mi Neil PA-C [address] [place] [address] 01/18/2024 7:20 AM EDT Office Visit Family Medicine [address] [place] [phone] Rhys Humphrey MD [address] [place] [address] [place] [address] 03/18/2024 9:00 AM EDT Nurse Only Ancillary [address] [place] [address] [place], Nurse Annual [address] [place] [address] Scheduled Procedures Name Priority Associated Diagnoses Date/Ti [...] D LEVEL ONCE IN A LIFETIME-USE SMARTSET# [id number] Completed 06/29/2020, 03/16/2015 Pneumococcal Vaccine: 65+ Years [...] Hospital discharge follow-up- Primary Other follow-up examination COPD exacerbation (HCC) Obstructive chronic bronchitis with exacerbation Chronic hypoxemic respiratory failure (HCC) Chronic respiratory failure documented in this encounter Advance Directives Documents on File Type Date Recorded Patient Wrapper Hands Sprayer Expl anation POLST 10/15/2019 3:17 PM POLST POLST 03/05/2019 POLST FORM Advance Directives and Living Will 01/27/2013 LIVING WILL Advance Directives and Living Will 01/27/2013 LIVING WILL Power of Store Operations Associate 01/27/2013 POWER OF A TTORNEY Power of Store Operations Associate 01/27/2013 POWER OF A TTORNEY Healthcare Agents on File Name Relationship Healthcare Agent Relationship Communication Cydney Benito Other - (no specific identity) Second Alternate Health Care Agent Anyi More Adult Child Health Care Roberth r of Store Operations Associate Care Teams Police Specialist Relationship Specialty Start Date End Date Rhys Humphrey MD [address] [place] [address] [place] [address] PCP - General Family Medicine 06/09/21 documented as of this encounter
--- OUTSIDE RECORDS SUMMARY | 2023-12-07 21:41 | External Medical Summary | Summary of Care ---
Author Name Unknown Organization [facility] Address [address] [place] [address] Phone [phone] Care Team Providers Care Warehouse Packaging Supervisor Name Role Phone Rhys Humphrey MD Primary Care Provide r Reason for Visit * Reason Onset Date Comments [facility]: Maintenance 10/30/2023 Encounter Details Date Type Department Care Team (Late st Contact Info) Description 10/30/2023 Telephone [facility], [facility] [address] [facility] [place] [address] Amy Zaragoza, RN [address] [facility] [place] [address] [facility]: Maintenance Allergies Active Allergy Reactions Criticality Noted Date Comments Adhesive Tape Other (Please comment),Hives High 09/29/2008 Caused welts Dextromethorphan-Gu aifenesin Neuro complications (Please comment) Medium 12/23/2021 Feels lightheaded/"foggy" documented as of this encounter (statuses as of 11/01/2023) Medications Medication Sig Dispensed Refills Start Date [...] Each 0 0 Active Nebulizers (NEBULIZER COMPRESSOR) MISCIndications: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 Use as directed. 1 Each 1 0 Active Iron 325 (65 Fe) MG Oral Tablet Take 1 Tablet by mouth daily. 0 Active Cranberry 500 MG Oral Capsule Take 1 Capsule by mouth in the morning and 1 Capsule before bedtime. 50 Cap 0 1 Active Sqvdakk-Ycprsctmq-M inc 333-133-5 MG Oral Tablet Take 1 [...] or Wheezing. 360 mL 3 3 Active Diclofenac Sodium 1 % [...] mouth in the morning. 30 Each 3 Active Prochlorperazine Maleate 10 MG Oral [...] at bedtime. 30 Tablet 5 3 Active Additional Information [...] THE MORNING 30 Tablet 0 4 Active Gabapentin 300 MG Oral Capsule (Neurontin)Indicati ons:Peripheral polyneuropathy,Pain in both lower extremities TAKE THREE CAPSULES AT BEDTIME 90 Capsule 3 3 11/01/19 24 Discontinued documented as of this encounter (statuses as of 11/01/2023) Active Problems Problem Noted Date Diagnosed Date [...] as of this encounter (statuses as of 11/01/2023) Resolved Problems Problem Noted Date Diagnosed Date [...] as of this encounter (statuses as of 11/01/2023) Immunizations Name Administration Dates Next Due COVID-19 mRNA, LNP-s, No Pre serve, 2-Dose Series ([employer]) 07/11/2021,11/14/2020,10/24/2020 Covid-19, Mrna, Lnp-s, Pf, B ivalent, 30 Mcg, IM, 12 yrs and above (Pfizer) 07/21/2022 Pneumococcal Conjugate Vacc, 13 Valent (Prevnar) 03/16/2015 Pneumococcal Conjugate Vacci ne, 20-valent ([id number]) 07/21/2022 Pneumococcal Polysaccharide PPV23 (Pneumovax) 03/05/2019,07/18/2007 Season [...] Telephone Encounter - Mariel Welch LPN - 11/01/2023 8:38 AM EST Sent to scheduling pool to schedule [facility] 11/01/2023,8:38 AM * Telephone Encounter - Amy Zaragoza RN - 10/30/2023 3:42 PM EST Received update from inpatient Aurelio SHAW that pt was admitted to [facility] 10/29-10/30 with copd exacerbation. Please schedule TOCs documented in this encounter Plan of Treatment Upcoming Encounters Date Type Department Care Team (Late st Contact Info) Description 11/02/2023 1:45 PM EST Office [facility] [place] [address] [facility] [place] [address] Martínez Lopes MD [address] [facility] [place] [address] 11/06/2023 12:30 PM EST Scheduled Telephone [facility], [facility] [address] [facility] [place] [address] Lovely Bravo, SHAKIRN [address] [facility] [place] [address] 11/06/2023 5:30 PM EST Home Visit [facility] [place], [facility] [address] [place] [address] Liya Dawson RN [address] [place] [address] 11/07/2023 11:20 AM EST Office Visit [address] [place] [phone] Rhys Humphrey MD [address] [place] [address] [place] [address] 11/13/2023 8:30 AM EST Home Visit [facility] [place], [facility] [address] [place] [address] Sarah Vitale, RAYNA [address] [place] [address] 12/10/2023 9:20 AM EDT Office Visit Family Medicine [address] [place] [phone] Rhys Humphrey MD [address] [place] [address] [place] [address] 12/26/2023 7:30 AM EDT Office Visit Sleep Disorders Ctr [facility] [address] [place] [phone] Sosa Freeman CRNP [address] [place] [address] 12/27/2023 11:00 AM EDT Office Visit Cardiology [address] [place] [address] Mi Neil, CECI [address] [place] [address] 03/18/2024 9:00 AM EDT Nurse Only Ancillary [address] [place] [address] [place], Nurse [address] [place] [address] Scheduled Procedures Name Priority Associated Diagnoses Date/Ti [...] D LEVEL ONCE IN A LIFETIME-USE SMARTSET# [id number] Completed 06/29/2020, 03/16/2015 Pneumococcal Vaccine: 65+ Years [...] Documents on File Type Date Recorded 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 Expl 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 POLST 10/15/2019 3:17 PM POLST POLST 03/05/2019 POLST FORM Advance Directives and Living Will 01/27/2013 LIVING WILL Advance Directives and Living Will 01/27/2013 LIVING WILL Power of Autocad Technician 01/27/2013 POWER OF A TTORNEY Power of Autocad Technician 01/27/2013 POWER OF A TTORNEY Healthcare Agents on File Name Relationship Healthcare Agent Relationship Communication Cydney Benito Other - (no specific identity) Second Alternate Health Care Agent Anyi More Adult Child Health Care Roberth r of Autocad Technician Care Teams Warehouse Packaging Supervisor Relationship Specialty Start Date End Date Rhys Humphrey MD [address] [place] [address] [place] [address] PCP - General Family Medicine 06/09/21 documented as of this encounter
--- OUTSIDE RECORDS SUMMARY | 2023-12-07 21:41 | External Medical Summary | Summary of Care ---
Author Name Unknown Organization [facility] Address [address] [place] [address] Phone [phone] Care Team Providers Care Coiled Coil Inspector Name Role Phone Ollie Gonzalez MD Primary Care Provide r Reason for Visit * Reason Comments eRx-Medication Refill Encounter Details Date Type Department Care Team (Late st Contact Info) Description 10/30/2023 Refill Family Medicine [address] [phone] Ollie Gonzalez MD [address] [place] [address] [place] [address] Peripheral polyneuropathy; Pain in both lower extremities Allergies Active Allergy Reactions Criticality Noted Date [...] Each 0 0 Active Nebulizers (NEBULIZER COMPRESSOR) MISCIndications: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 Use as directed. 1 Each 1 0 Active Iron 325 (65 Fe) MG Oral Tablet Take 1 Tablet by mouth daily. 0 Active Cranberry 500 MG Oral Capsule Take 1 Capsule by mouth in the morning and 1 Capsule before bedtime. 50 Cap 0 1 Active Touiyuj-Fnbmnoaza-C inc 333-133-5 MG Oral Tablet Take 1 [...] AT BEDTIME 90 Capsule 3 4 Active Gabapentin 300 MG Oral Capsule [...] mRNA, LNP-s, No Pre serve, 2-Dose Series ([employer] 07/11/2021,11/14/2020,10/24/2020 Covid-19, Mrna, Lnp-s, Pf, B ivalent, 30 Mcg, IM, 12 yrs and above ([employer] 07/21/2022 Pneumococcal Conjugate Vacc, 13 Valent (Prevnar) 03/16/2015 Pneumococcal Conjugate Vacci ne, 20-valent ([id number]) 07/21/2022 Pneumococcal Polysaccharide PPV23 (Pneumovax) 03/05/2019,07/18/2007 Season [...] Telephone Encounter - Ollie Gonzalez MD - 11/01/2023 8:22 AM EST Signed Prescriptions: Disp Refills Gabapentin 300 MG Oral Capsule (Neurontin) 90 Cap*3 Sig: TAKE THREE CAPSULES BY MOUTH AT BEDTIME Authorizing Provider: OLLIE GONZALEZ * Telephone Encounter - Tiffanie Murrell CMA - 10/31/2023 3:24 PM ESTPending Prescriptions: Disp Refills Gabapentin 300 MG Oral Capsule [Pharmacy M*90 Cap*3 Sig: TAKE THREE CAPSULES BY MOUTH AT BEDTIME * Telephone Encounter - Tiffanie Murrell CMA - 10/31/2023 3:23 PM EST Pending Prescriptions: Disp Refills Gabapentin 300 MG Oral Capsule (Neurontin*90 Cap*3 Sig: TAKE THREE CAPSULES BY MOUTH AT BEDTIME Last Visit: 08/21/2023 (in office), Visit date not found (telemedicine) Next Visit: 11/07/2023 Last date the medication was ordered: 07/11/2023 Patient Active Problem List Diagnosis Code History [...] (HCC) C7A.1 Acute respiratory failure with hypoxia ([facility]) J96.01 Encounter for antineoplastic chemotherapy Z51.11 Labs: Lab Results Component Value Date/Time CREATININE - [facility] 0.8 10/02/2023 09:00 AM CREATININE - [facility] 1.0 06/29/2020 12:24 PM CREATININE, RANDOM URINE - [facility] 87 04/28/2022 09:23 AM CREATININE-OUTSIDE LAB 0.77 09/19/2019 12:00 AM Lab Results Component Value Date/Time POTASSIUM - [facility] 3.6 10/02/2023 09:00 AM POTASSIUM - [facility] 4.1 06/29/2020 12:24 PM POTASSIUM-OUTSIDE LAB 4.1 09/19/2019 12:00 AM Lab Results Component Value Date/Time TSH - [facility] 2.97 10/02/2023 09:00 AM TSH - [facility] 3.53 08/08/2012 10:00 AM Lab Results Component Value Date/Time LDL CHOLESTEROL (CALCULATED) - [facility] 63 06/07/2023 08:58 AM LDL CHOLESTEROL (CALCULATED) - [facility] 84 04/28/2022 09:23 AM LDL CHOLESTEROL (CALCULATED) - [facility] 80 03/03/2019 09:10 AM LDL CHOLESTEROL (CALCULATED) - [facility] 115 12/07/2017 11:19 AM LDL CHOLESTEROL (DIRECT MEASURE) - [facility] NOT APPLICABLE 03/03/2019 09:10 AM LDL CHOLESTEROL (DIRECT MEASURE) - [facility] NOT APPLICABLE 12/07/2017 11:19 AM Lab Results Component Value Date/Time ALT - [facility] 8 (L) 10/02/2023 09:00 AM ALT - [facility] 24 06/29/2020 12:24 PM Hemoglobin AIC Results: Lab Results Component Value Date/Time HEMOGLOBIN A1C - [facility] 5.3 07/07/2021 11:34 AM HEMOGLOBIN A1C - [facility] 6.3 (H) 06/29/2020 12:24 PM HEMOGLOBIN A1C - [facility] 6.0 (H) 09/09/2019 10:06 AM HEMOGLOBIN A1C - [facility] 6.4 (H) 03/05/2019 09:40 AM * Telephone Encounter - Yimi Kessler - 10/31/2023 2:41 PM ESTPending Prescriptions: Disp Refills Gabapentin 300 MG Oral Capsule [Pharmacy M*90 Cap*3 Sig: TAKE THREE CAPSULES BY MOUTH AT BEDTIME documented in this encounter Plan of Treatment Upcoming Encounters Date Type Department Care Team (Late st Contact Info) Description 11/02/2023 1:45 PM EST Office Visit Hematology/Oncology [facility] [place] [address] [place] [address] Martínez Lopes MD [address] [place] [address] 11/06/2023 12:30 PM EST Scheduled Telephone [facility], [facility] [address] [place] [address] Lovely Bravo, SHAKIRN [address] [place] [address] 11/06/2023 5:30 PM EST [facility] Visit [facility], [facility] [address] [place] [address] Liya Dawson, RN [address] [place] [address] 11/07/2023 11:20 AM EST Office Visit Family Medicine [address] [phone] Ollie Gonzalez MD [address] [place] [address] [place] [address] 11/13/2023 8:30 AM EST Home Visit [facility] [place], [facility] [address] [place] [address] Sarah Vitale RN [address] [place] [address] 12/10/2023 9:20 AM EDT Office Visit Family [address] [phone] Ollie Gonzalez MD [address] [place] [address] [place] [address] 12/26/2023 7:30 AM EDT Office Visit [facility] Disorders [facility]tr [facility] [address] [place] [phone] Sosa Freeman CRNP [address] [place] [address] 12/27/2023 11:00 AM EDT Office Visit Cardiology [address] [place] [address] Mi Neil, PARuthannC [address] [place] [address] 03/18/2024 9:00 AM EDT Nurse Only Ancillary [place] [address] [place] [address] [place], Nurse [address] [place] [address] Scheduled Procedures Name Priority Associated Diagnoses Date/Ti [...] D LEVEL ONCE IN A LIFETIME-USE SMARTSET# 05711 Completed 06/29/2020, 03/16/2015 Pneumococcal Vaccine: 65+ Years [...] peripheral neuropathy Pain in both lower extremities documented in this encounter Advance Directives Documents on File Type Date Recorded Patient Title Clerk Expl anation POLST 10/15/2019 3:17 PM POLST POLST 03/05/2019 POLST FORM Advance Directives and Living Will 01/27/2013 LIVING WILL Advance Directives and Living Will 01/27/2013 LIVING WILL Power of Printing Screen Assembler 01/27/2013 POWER OF A TTORNEY Power of Printing Screen Assembler 01/27/2013 POWER OF A TTORNEY Healthcare Agents on File Name Relationship Healthcare Agent Relationship Communication Cydney Benito Other - (no specific identity) Second Alternate Health Care Agent Anyi More Adult Child Health Care Roberth r of Printing Screen Assembler Care Teams Coiled Coil Inspector Relationship Specialty Start Date End Date Ollie Gonzalez MD [address] [place] [address] [place] [address] PCP - General Family Medicine 06/09/21 documented as of this encounter
--- OUTSIDE RECORDS SUMMARY | 2023-12-07 21:41 | External Medical Summary | Summary of Care ---
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)*; Metastasis to mediastinal lymph node (HCC); 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 Use as directed. 1 Each 1 11/17/2019 Active Iron 325 (65 Fe) MG Oral Tablet Take 1 Tablet by mouth daily. 0 Active Cranberry 500 MG Oral Capsule Take 1 Capsule by mouth in the morning and 1 Capsule before bedtime. 50 Cap 0 01/18/2021 Active Pwgcwvt-Qkncvpvnf-C inc 333-133-5 MG Oral Tablet Take 1 [...] each cycle 20 Tablet 0 09/17/2023 Active Additional Information Patient not taking.Reported on 11/02/2023 guaiFENesin-Codeine 100-10 MG/5ML Oral Solution (Robitussin AC) [...] AT BEDTIME 90 Capsule 3 11/01/2023 Active Ramelteon 8 MG Oral Tablet (Rozerem)Indication s:Insomnia, unspecified type TAKE ONE TABLET AT BEDTIME 30 Tablet 5 06/11/2023 4 Discontinu ed(Medicat ion List Clean Up) documented as of this encounter (statuses as of 11/02/2023) Active Problems Problem Noted Date Diagnosed Date [...] as of this encounter (statuses as of 11/02/2023) Resolved Problems Problem Noted Date Diagnosed Date [...] as of this encounter (statuses as of 11/02/2023) Immunizations Name Administration Dates Next Due COVID-19 mRNA, LNP-s, No Pre serve, 2-Dose Series ([employer]) 07/11/2021,11/14/2020,10/24/2020 Covid-19, Mrna, Lnp-s, Pf, B ivalent, 30 Mcg, IM, 12 yrs and above (Pfizer) 07/21/2022 Pneumococcal Conjugate Vacc, 13 Valent (Prevnar) 03/16/2015 Pneumococcal Conjugate Vacci ne, 20-valent ([id number]) 07/21/2022 Pneumococcal Polysaccharide PPV23 (Pneumovax) 03/05/2019,07/18/2007 Season [...] Sign Reading Time Taken Comments Blood Pressure 136/73 11/02/2023 1:44 PM EST Pulse 89 11/02/2023 1:44 PM EST Temperature 36.7 C (98.1 F) 11/02/2023 1:44 PM ES T Respiratory Rate 16 11/02/2023 1:44 PM EST Oxygen Saturation 81% 11/02/2023 1:44 PM EST Inhaled Oxygen Concentration - - Weight 66.4 kg (146 lb 6.4 oz) 11/02/2023 1:44 P M EST Height 152.4 cm (5') 11/02/2023 1:44 PM EST Body Mass Index 28.59 11/02/2023 1:44 PM EST documented in this encounter Progress Notes * Martínez Lopes MD - 11/02/2023 1:45 PM EST Images from the original note were not included. Hematology/Oncology Outpatient Clinic note [facility] [address] [place] [address] Name: Keisha Linares Date: 07/03/2023 CHIEF COMPLAINT: [...] for lymphoma Ferrous sulfate 325 mg daily - She received 1st cycle of chemotherapy with carboplatin, etoposide and atezolizumab between 10/02/2023 - 10/04/2023. She is at high risk for febrile [...] the mesenteric mass done on 10/17/2013 at [facility] -->Low grade follicular lymphoma, grade 1/grade 2, could not be tested for t(14 ;18) because of hypocellular specimen. - clinical Analisa Arber staging --> stage III disease. No bone marrow bx in her case. Colonoscopy 09/11/21 HISTORY OF PRESENT ILLNESS: She has come the clinic for the follow-up, by her several family members in the office. Came to clinic in the wheelchair, on oxygen treatment which is not a new finding, recently she was admitted at [facility] following 1st cycle of chemotherapy about week after that she had increasing coughing, shortness of breath, reviewed hospital records, she was treated with antibiotic treatment for the left lower lobe pneumonia Now she has recovered to a great extent, has some mild coughing, no new shortness of breath, no hemoptysis, no fever, completed antibiotic treatment today, no abdominal symptoms, no leg edema, no bleeding from the sites. She ambulates slowly with the help of the cane. No increasing headache, no focal neurological symptoms. Past Medical History: Diagnosis Date Acute cystitis [...] performed by Surjit Fernandez MD at [facility] CERV;VAG CANCER SCREEN;PEL & B 03/2000 COLONOSCOPY 03/03/2013 diverticulosis, polyps, internal hemorrhoids COLONOSCOPY, DIAGNOSTIC (RECTUM) 07/31/2017 diverticulosis/[facility] COLONOSCOPY, DIAGNOSTIC (RECTUM) 09/09/2021 diverticulosis / [facility] COLORECTAL CANCER SCREEN; NOT AT RISK 11/[address] ABDOMEN/PELVIS 04/02/2013 mesenteric lymphadenopathy concerning for lymphoma DIGITAL RECTAL EXAM,ANNUAL 03/2000 EGD, FLEXIBLE, DIAGNOSTIC 03/03/2013 mild gastritis EGD, FLEXIBLE, DIAGNOSTIC 07/31/2017 normal bx, hiatal hernia/[facility] EGD, FLEXIBLE, DIAGNOSTIC 10/14/2021 reflux esophagitis, hiatal hernia / [facility] EGD, FLEXIBLE, DIAGNOSTIC 09/09/2021 hiatal hernia / [facility] HEMORRHOIDECTOMY, SIMPLE, 1 COLUMN 1989 Hemorrhoidectomy,Int/Ext,Simple INFORMATION L carotid endarterectomy. INFORMATION 07/26/2023 L TCAR. 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 50 Cap Zubrrbv-Idnhlowuh-Tnjr 333-133-5 MG Oral Tablet Take 1 Tablet [...] mouth in the morning. 30 Each 11 Prochlorperazine Maleate 10 MG Oral Tablet (Compazine) Take 1 Tablet by mouth every 6 hours as needed for Nausea. 60 Tablet 2 Loratadine 10 MG Oral Tablet (Claritin) Take 10mg (1 tablet) once a day for 5 days starting on day 3 of each cycle 20 Tablet 0 guaiFENesin-Codeine 100-10 MG/5ML Oral Solution (Robitussin AC) Take 5 mL by mouth 3 times a day asneeded for Cough. (Patient not taking: Reported on 10/16/2023) traZODone HCl 50 MG Oral Tablet (Desyrel) Take 1 Tablet by mouth at bedtime. (Patient not taking: Reported on 10/16/2023) 30 Tablet 5 Ondansetron HCl 8 MG Oral Tablet Take 1 Tablet by mouth every 8 hours as needed for Nausea. 90 Tablet 3 Atorvastatin Calcium 40 MG Oral Tablet (Lipitor) TAKE ONE TABLET BY MOUTH EVERY DAY 90 Tablet 2 Allopurinol 100 MG Oral Tablet (Zyloprim) TAKE ONE TABLET BY MOUTH IN THE MORNING 30 Tablet 0 No current facility-administered medications for this visit. REVIEW OF SYSTEMS: See HPI - otherwise negative OBJECTIVE: BP 136/73 (BP Site: Left Arm, BP Position: Sitting, BP Cuff Size: Large) | Pulse 89 | Temp 36.7 C(98.1 F) (Tympanic) | Resp 16 | Ht 1.524 m (5') | Wt 66.4 kg (146 lb 6.4 oz) | SpO2 81% | BMI 28.59 kg/m | BSA 1.68 m PHYSICAL EXAM: ECOG: Performance Status 0 [...] of 490,000 - BUN/Creat: 15/0.9, calcium 8.7. Blood workup done on 10/30/2023 at [facility]: -WBC 7700, H&H of 8.3/26.6, Platelet count of 845406. -BUN/Creat: 14/0.59. - normal liver function test. CT scan of the chest, abdomen and [...] possible, given history, but is felt lesslikely. CT chest done on 10/29/2023 at [facility]: - Precarinal soft tissue mass measuring 6.6 x 5.8 cm ( previously 5.4 x 4.1 in August 2023 ) - Progressive subcarinal and right hilar lymphadenopathy. - Masslike soft tissue within left hilar region measuring 4.2 x 3.2 cm which is stable to mildly increase in size - Narrowing of the left lower lobe bronchus resulting in left lower lobe postobstructive pneumonitis. - No evidence of pulmonary emboli. IMPRESSION/PLAN: Follicular lymphoma, grade 1/ grade 2 [...] year, approximately 25 pounds. Has recently stabilized. 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 Once again I reviewed imaging studies in her case, discussed with the regarding overall treatment goal which would be palliative not curative and whatever trying to treat with the chemotherapy treatment We could consider resuming the treatment and see how she tolerates. She had already received prophylactic Pegfilgrastim. I would consider for prophylactic antibiotic treatment in the form ciprofloxacin for about 10 days after the chemotherapy starting about 1 week after the treatment. She will decide about chemotherapy treatment next week. We also talked about overall prognosis in her case. Dr. Martínez Lopes Hem/Onc (This note was completed using the dictation program Fluency Direct. As such, there may be misspellings word substitutions, or other variations that should not change the essence of the clinical content of this encounter note. If there is need for further clarification, please direct questions to the provider listed above.) documented in this encounter Nursing Notes * Isatu Gerwal CMA - 11/02/2023 1:47 PM EST Patient identifed by name and [...] it for you? ALREADY ACTIVE Filed Vitals: 11/02/23 1344 BP: 136/73 Pulse: 89 Resp: 16 Temp: 36.7 C (98.1 F) TempSrc: Tympanic SpO2: 81% Weight: 66.4 kg (146 lb 6.4 oz) Height: 1.524 m (5') Patient was [...] Care Team (Late st Contact Info) Description 11/06/2023 12:30 PM EST Scheduled Telephone [facility], [facility] [address] [facility] [place] [address] Lovely Bravo, RDN [address] [facility] [address] [place] [address] 11/06/2023 5:30 PM EST [facility] Visit [facility], [facility] [address] [place] [address] Liya Dawson RN [address] [place] [address] 11/07/2023 11:20 AM EST Office Visit Family [address] [phone] Rhys Humphrey MD [address] [place] [address] [place] [address] 11/13/2023 8:30 AM EST [facility] Visit [facility], [facility] [address] [place] [address] Sarah Vitale, RN [address] [place] [address] 12/10/2023 9:20 AM EDT Office Visit Family [address] [address] Rhys Humphrey MD [address] [place] [address] [place] [address] 12/26/2023 7:30 AM EDT Office Visit [facility] [address] [place] [phone] Sosa Freeman CRNP [address] [place] [address] 12/27/2023 11:00 AM EDT Office Visit Cardiology [address] [place] [address] Mi Neil PA-C [address] [place] [address] 03/18/2024 9:00 AM EDT Nurse Only Ancillary [address] [place] [address] [place], Nurse Annual [address] [place] [address] Scheduled Procedures Name Priority Associated Diagnoses Date/Ti [...] D LEVEL ONCE IN A LIFETIME-USE SMARTSET# [id number] Completed 06/29/2020, 03/16/2015 Pneumococcal Vaccine: 65+ Years [...] Documents on File Type Date Recorded Patient Rehabilitation Services Aide Expl anation POLST 10/15/2019 3:17 PM POLST POLST 03/05/2019 POLST FORM Advance Directives and Living Will 01/27/2013 LIVING WILL Advance Directives and Living Will 01/27/2013 LIVING WILL Power of Dairy Supplies Sales Representative 01/27/2013 POWER OF A TTORNEY Power of Dairy Supplies Sales Representative 01/27/2013 POWER OF A TTORNEY Healthcare Agents on File Name Relationship Healthcare Agent Relationship Communication Cydney Benito Other - (no specific identity) Second Alternate Health Care Agent Anyi More Adult Child Health Care Roberth r of Dairy Supplies Sales Representative Care Teams Recreational Facilities Motel Manager Relationship Specialty Start Date End Date Rhys Humphrey MD [address] [place] [address] [place] [address] PCP - General Family Medicine 06/09/21 documented as of this encounter
--- OUTSIDE RECORDS SUMMARY | 2023-12-07 21:41 | External Medical Summary | Summary of Care ---
Author Name Unknown Organization [facility] Address [address] [place] [address] Phone [phone] Care Team Providers Care Planning Lead Name Role Phone Rhys Humphrey MD Primary Care Provide r Reason for Visit * Reason Onset Date Comments Appointment 11/05/2023 Encounter Details Date Type Department Care Team (Late st Contact Info) Description 11/05/2023 Telephone [facility], [facility] [address] [facility] [place] [address] Elida Saeed, [facility] Crop Duster Helper [address] [place] [address] Appointment Allergies Active Allergy Reactions Criticality Noted Date Comments Adhesive Tape Other (Please comment),Hives High 09/29/2008 Caused welts Dextromethorphan-Gu aifenesin Neuro complications (Please comment) Medium 12/23/2021 Feels lightheaded/"foggy" documented as of this encounter (statuses as of 11/05/2023) Medications Medication Sig Dispensed Refills Start Date [...] Nebulizers (NEBULIZER COMPRESSOR) MISCIndications:COPD , moderate ([facility]) Inhale via nebulizer. Use as directed. 1 Each 1 11/17/2019 Active Iron 325 (65 Fe) MG Oral Tablet Take 1 Tablet by mouth daily. 0 Active Cranberry 500 MG Oral Capsule Take 1 Capsule by mouth in the morning and 1 Capsule before bedtime. 50 Cap 0 01/18/2021 Active Udqihkl-Ghotpxsnc-Tc nc 333-133-5 MG Oral Tablet Take 1 [...] MCG/ACT Inhalation Aerosol SolutionIndications: COPD, moderate ([facility]) Inhale 2 Puffs by mouth [...] Powder Breath Activated (ARNUITY ellipta)Indications: COPD, moderate ([facility]),COPD, group D, by GOLD 2017 classification (HCC) Inhale 1 Puff by mouth in the morning. In addition to anoro. 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 D, moderate (HCC),COPD, group D, by [...] AT BEDTIME 90 Capsule 3 11/01/2023 Active documented as of this encounter (statuses as of 11/05/2023) Active Problems Problem Noted Date Diagnosed Date [...] as of this encounter (statuses as of 11/05/2023) Resolved Problems Problem Noted Date Diagnosed Date [...] as of this encounter (statuses as of 11/05/2023) Immunizations Name Administration Dates Next Due COVID-19 mRNA, LNP-s, No Pre serve, 2-Dose Series (Havkraft) 07/11/2021,11/14/2020,10/24/2020 Covid-19, Mrna, Lnp-s, Pf, B ivalent, 30 Mcg, IM, 12 yrs and above (Havkraft) 07/21/2022 Pneumococcal Conjugate Vacc, 13 Valent (Prevnar) 03/16/2015 Pneumococcal Conjugate Vacci ne, 20-valent ([id number]) 07/21/2022 Pneumococcal Polysaccharide PPV23 (Pneumovax) 03/05/2019,07/18/2007 Season [...] Miscellaneous Notes * Telephone Encounter - Elida Saeed [facility] Crop Duster Helper - 11/05/2023 9:41 AM EST TT from Mookie Dawson requesting that 11/06/23 appt @ 5:30 be changed to 11/08/23 @ 5:30 w/Veronica Vitale. Called and spoke with Pt who asked me to contact daughter as she handles all appts. Called and spoke with Pt's daughter. She stated 11/08/23 appt is good. documented in this encounter Plan of Treatment Upcoming Encounters Date Type Department Care Team (Late st Contact Info) Description 11/06/2023 12:30 PM EST Scheduled Telephone [facility], [facility] [address] [facility] [place] [address] Lovely Bravo, RDN [address] [facility] [place] [address] 11/07/2023 11:20 AM EST Office Visit [address] [address] Rhys Humphrey MD [address] [place] [address] [place] [address] 11/08/2023 5:30 PM EST [facility] Visit [facility] [place], [facility] [address] [facility] [place] [address] Sarah Vitale, RN 132 [facility] [place] [address] 11/13/2023 8:30 AM EST Home Visit [facility] [place], [facility] [address] [facility] [place] [address] Sarah Vitale, RN 132 [facility] [place] [address] 12/10/2023 9:20 AM EDT Office Visit [address] [place] [address] Rhys Humphrey MD [address] [place] [address] [place] [address] 12/26/2023 7:30 AM EDT Office Visit Sleep Disorders [facility] [address] [facility] [place] [phone] Sosa Freeman CRNP 132 [facility] [place] [address] 12/27/2023 11:00 AM EDT Office Visit Cardiology [address] [place] [address] Mi Neil PA-C [address] [place] [address] 03/18/2024 9:00 AM EDT Nurse Only Ancillary [address] [place] [address] [place], Nurse Annual [address] [place] [address] Scheduled Procedures Name Priority Associated Diagnoses Date/Ti [...] D LEVEL ONCE IN A LIFETIME-USE SMARTSET# 44582 Completed 06/29/2020, 03/16/2015 Pneumococcal Vaccine: 65+ Years [...] Documents on File Type Date Recorded Patient Feed Handler Expl anation POLST 10/15/2019 3:17 PM POLST POLST 03/05/2019 POLST FORM Advance Directives and Living Will 01/27/2013 LIVING WILL Advance Directives and Living Will 01/27/2013 LIVING WILL Power of Sales Applications Engineer 01/27/2013 POWER OF A TTORNEY Power of Sales Applications Engineer 01/27/2013 POWER OF A TTORNEY Healthcare Agents on File Name Relationship Healthcare Agent Relationship Communication Cydney Benito Other - (no specific identity) Second Alternate Health Care Agent Anyi More Adult Child Health Care Roberth r of Sales Applications Engineer Care Teams Planning Lead Relationship Specialty Start Date End Date Rhys Humphrey MD [address] [place] [address] [place] [address] PCP - General Family Medicine 06/09/21 documented as of this encounter
--- OUTSIDE RECORDS SUMMARY | 2023-12-07 21:41 | External Medical Summary | Summary of Care ---
Author Name Unknown Organization [facility] Address [address] [place] [address] Phone [phone] Care Team Providers Care Tripe Finisher Name Role Phone Rhys Humphrey MD Primary Care Provide r Reason for Visit * Reason Onset Date Comments [facility]: Maintenance 11/05/2023 Encounter Details Date Type Department Care Team (Late st Contact Info) Description 11/05/2023 Telephone [facility], [facility] [address] [facility] [place] [address] [facility], Nurse [facility] [address] [facility] [place] [id number] [facility]: Maintenance Allergies Active Allergy [...] before bedtime. 50 Cap 0 01/18/2021 Active Rnlakhb-Aeihvmaai-Xq nc 333-133-5 MG Oral Tablet Take 1 [...] diastolic congestive heart failure ([facility]) One tablet daily with an extra [...] MCG/ACT Inhalation Aerosol Powder Breath Activated (umeclidinium-vilant ed)Indications:BETA TESTER D, moderate (HCC),COPD, group D, by GOLD [...] mRNA, LNP-s, No Pre serve, 2-Dose Series ([employer]) 07/11/2021,11/14/2020,10/24/2020 Covid-19, Mrna, Lnp-s, Pf, B ivalent, 30 Mcg, IM, 12 yrs and above (Pfizer) 07/21/2022 Pneumococcal Conjugate Vacc, 13 Valent (Prevnar) 03/16/2015 Pneumococcal Conjugate Vacci ne, 20-valent ([id number]) 07/21/2022 Pneumococcal Polysaccharide PPV23 (Pneumovax) 03/05/2019,07/18/2007 Season [...] Telephone Encounter - Angeles Mehta LPN - 11/05/2023 12:17 PM EST Images from the original note were not included. [facility] Remote Patient Monitoring Unable to contact patient: Trigger type: Abnormal reading(s): Device(s) Triggered: AMC (Advanced Monitored Caregiving): Blood Pressure Cuff: Blood pressure per cuff: 97/42 Trigger priority per AMC: hihg Plan: Route to RNCM (Registered Nurse Licensing And Registration Director) in care team Called pt to F/U on BP trigger, LMOM to return call documented in this encounter Plan of Treatment Upcoming Encounters Date Type Department Care Team (Late st Contact Info) Description 11/06/2023 12:30 PM EST Scheduled Telephone [facility], [facility] [address] [facility] [place] [address] Lovely Bravo, SHAKIRN [address] [facility] [place] [address] 11/07/2023 11:20 AM EST Office Visit Family [address] [place] [address] Rhys Humphrey MD [address] [place] [address] [place] [address] 11/08/2023 5:30 PM EST [facility] Visit [facility], [facility] [address] [place] [address] Sarah Vitale, RN [address] [facility] [place] [address] 11/13/2023 8:30 AM EST [facility] Visit [facility], [facility] [address] [place] [address] Sarah Vitale, RN [address] [facility] [place] [address] 12/10/2023 9:20 AM EDT [address] [address] Rhys Humphrey MD [address] [place] [address] [place] [address] 12/26/2023 7:30 AM EDT Office Visit Sleep Disorders [facility] [address] [place] [phone] Soas Freeman CRNP [address] [place] [address] 12/27/2023 11:00 AM EDT Office Visit Cardiology [address] [place] [address] Mi Neil PA-C [address] [place] [address] 03/18/2024 9:00 AM EDT Nurse Only Ancillary [address] [place] [address] [place], Nurse Annual [address] [place] [address] Scheduled Procedures Name Priority Associated Diagnoses Date/Ti [...] D LEVEL ONCE IN A LIFETIME-USE SMARTSET# [id number] Completed 06/29/2020, 03/16/2015 Pneumococcal Vaccine: 65+ Years [...] Documents on File Type Date Recorded Patient Accounting Bookkeeper Expl anation POLST 10/15/2019 3:17 PM POLST POLST 03/05/2019 POLST FORM Advance Directives and Living Will 01/27/2013 LIVING WILL Advance Directives and Living Will 01/27/2013 LIVING WILL Power of Embroidery Cutter 01/27/2013 POWER OF A TTORNEY Power of Embroidery Cutter 01/27/2013 POWER OF A TTORNEY Healthcare Agents on File Name Relationship Healthcare Agent Relationship Communication Cydney Benito Other - (no specific identity) Second Alternate Health Care Agent Anyi More Adult Child Health Care Roberth r of Embroidery Cutter Care Teams Tripe Finisher Relationship Specialty Start Date End Date Rhys Humphrey MD [address] [place] [address] [place] [address] PCP - General Family Medicine 06/09/21 documented as of this encounter
--- OUTSIDE RECORDS SUMMARY | 2023-12-07 21:42 | External Medical Summary | Summary of Care ---
Author Name Unknown Organization [facility] Address [address] [place] [address] Phone [phone] Care Team Providers Care Lead Military Analyst Name Role Phone Rhys Humphrey MD Primary Care Provide r Reason for Visit * Reason Onset Date Comments Advice 10/29/2023 appointments Encounter Details Date Type Department Care Team (Late st Contact Info) Description 10/29/2023 Telephone Hematology/Oncology [facility] [address] [place] [address] Services, Scheduling [address] [place] [address] Advice ( appointments) Allergies Active Allergy Reactions Criticality Noted Date Comments Adhesive Tape Other (Please comment),Hives High 09/29/2008 Caused welts Dextromethorphan-Gu aifenesin Neuro complications (Please comment) Medium 12/23/2021 Feels lightheaded/"foggy" documented as of this encounter (statuses as of 10/29/2023) Medications Medication Sig Dispensed Refills Start Date [...] before bedtime. 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 Cancer Staging:Clinical:Stage III- Signed by Martínez Lopes MD on 11/16/2014 Pathologic: Unsigned TIA (transient ischemic attack) 06/24/2018 documented as of this encounter (statuses as of 10/29/2023) Immunizations Name Administration Dates Next Due COVID-19 mRNA, LNP-s, No Pre serve, 2-Dose Series (SPARQCode) 07/11/2021,11/14/2020,10/24/2020 Covid-19, Mrna, Lnp-s, Pf, B ivalent, 30 Mcg, IM, 12 yrs and above (SPARQCode) 07/21/2022 Pneumococcal Conjugate Vacc, 13 Valent (Prevnar) 03/16/2015 Pneumococcal Conjugate Vacci ne, 20-valent ([id number]) 07/21/2022 Pneumococcal Polysaccharide PPV23 (Pneumovax) 03/05/2019,07/18/2007 Season [...] Miscellaneous Notes * Telephone Encounter - Sangeetha Acuna OSA - 10/29/2023 10:49 AM EST Per nursing- canceled appts for this week Will await call to reschedule * Telephone Encounter - Agatha Lowe RN - 10/29/2023 10:27 AM EST Called and spoke to Anyi. She states that patient is being admitted for pneumonia. Advised her thatwe will cancel this weeks appt, asked that she update us when her mom is discharged to discuss rescheduling an appt with Dr Lopes before resuming any treatment. Scheduling: please cancel all appts this week for labs/ follow up/ treatment Dr Lopes: MEGANI on above. Looks like patient had CT chest while in ER as well, showing progression * Telephone Encounter - Peggy Contreras OSA - 10/29/2023 7:52 AM EST Daughter called she was to advise you that mom is admitted at [facility]. Please reach out to daughter at [phone] her name is aly . Thank you documented in this encounter Plan of Treatment Upcoming Encounters Date Type Department Care Team (Late st Contact Info) Description 11/06/2023 12:30 PM EST Scheduled Telephone [facility], [facility] [address] [facility] [place] [address] Lovely Bravo RDN [address] [facility] [place] [address] 11/13/2023 8:30 AM EST Home Visit [facility], [facility] [address] [place] [address] Sarah Vitale RN [address] [place] [address] 12/10/2023 9:20 AM EDT Office Visit Family Medicine [address] [place] [address] Rhys Humphrey MD [address] [place] [address] [place] [address] 12/26/2023 7:30 AM EDT Office Visit Sleep Disorders [facility] [address] [place] [phone] Sosa Freeman CRNP [address] [place] [address] 12/27/2023 11:00 AM EDT Office Visit Cardiology [address] [place] [address] Mi Neil PA-C [address] [place] [address] 03/18/2024 9:00 AM EDT Nurse Only Ancillary [address] [place] [address] [place], Nurse Annual [address] [place] [address] Scheduled Procedures Name Priority Associated Diagnoses Date/Ti [...] D LEVEL ONCE IN A LIFETIME-USE SMARTSET# 11613 Completed 06/29/2020, 03/16/2015 Pneumococcal Vaccine: 65+ Years [...] on File Type Date Recorded Patient Research Professor Of Biostatistics Expl anation POLST 10/15/2019 3:17 PM POLST POLST 03/05/2019 POLST FORM Advance Directives and Living Will 01/27/2013 LIVING WILL Advance Directives and Living Will 01/27/2013 LIVING WILL Power of Windows Vmware Administrator 01/27/2013 POWER OF A TTORNEY Power of Windows Vmware Administrator 01/27/2013 POWER OF A TTORNEY Healthcare Agents on File Name Relationship Healthcare Agent Relationship Communication Cydney Benito Other - (no specific identity) Second Alternate Health Care Agent Anyi More Adult Child Health Care Roberth r of Windows Vmware Administrator Care Teams Lead Military Analyst Relationship Specialty Start Date End Date Rhys Humphrey MD [address] [place] [address] [place] [address] PCP - General Family Medicine 06/09/21 documented as of this encounter
--- OUTSIDE RECORDS SUMMARY | 2023-12-07 21:42 | External Medical Summary | Summary of Care ---
Author Name Unknown Organization [facility] Address [address] [place] [address] Phone [phone] Care Team Providers Care Pattern Hanger Name Role Phone Rhys Humphrey MD Primary Care Provide r Reason for Visit * Reason Onset Date Comments [facility]: Maintenance 10/31/2023 Encounter Details Date Type Department Care Team (Late st Contact Info) Description 10/31/2023 Telephone [facility], [facility] [address] [place] [address] [facility], Nurse [facility] [address] [place] [address] [facility]: Maintenance Allergies Active Allergy Reactions Criticality Noted Date Comments Adhesive Tape Other (Please comment),Hives High 09/29/2008 Caused welts Dextromethorphan-Gu aifenesin Neuro complications (Please comment) Medium 12/23/2021 Feels lightheaded/"foggy" documented as of this encounter (statuses as of 10/31/2023) Medications Medication Sig Dispensed Refills Start Date [...] before bedtime. 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),COPD, group D, by GOLD [...] as of this encounter (statuses as of 10/31/2023) Active Problems Problem Noted Date Diagnosed Date [...] as of this encounter (statuses as of 10/31/2023) Resolved Problems Problem Noted Date Diagnosed Date [...] as of this encounter (statuses as of 10/31/2023) Immunizations Name Administration Dates Next Due COVID-19 mRNA, LNP-s, No Pre serve, 2-Dose Series ([employer]) 07/11/2021,11/14/2020,10/24/2020 Covid-19, Mrna, Lnp-s, Pf, B ivalent, 30 Mcg, IM, 12 yrs and above (Pfizer) 07/21/2022 Pneumococcal Conjugate Vacc, 13 Valent (Prevnar) 03/16/2015 Pneumococcal Conjugate Vacci ne, 20-valent ([id number]) 07/21/2022 Pneumococcal Polysaccharide PPV23 (Pneumovax) 03/05/2019,07/18/2007 Season [...] Telephone Encounter - Denise Pittman LPN - 10/31/2023 10:25 AM EST Patient d/c home from [facility] yesterday she states Needs YVONNE scheduled * Telephone Encounter - Denise Pittman LPN - 10/31/2023 10:24 AM EST Images from the original note were not included. [facility] Remote Patient Monitoring Able to contact patient: Trigger type: Abnormal reading(s): AMC (Advanced Monitored Caregiving): Pulse rate: Pulse: 105 Trigger priority per AMC: moderate Symptom review: None Diet Reviewed: N/A Fluid Intake Reviewed: N/A Self-Management Plan Reviewed: Red Flags: oxygen at night Risk assignment recommendation: Moderate [...] Additional risk selection justification: Spoke to patient and denies any SOB chest pain or headaches will call with any issues Overall risk and identified plan: Moderate risk: Route to RNCM (Registered Nurse Gallery Or Museum Guide) and Advance Practitioner documented in this encounter Plan of Treatment Upcoming Encounters Date Type Department Care Team (Late st Contact Info) Description 11/02/2023 1:45 PM EST Office Visit Hematology/Oncology [facility] [place] [address] [place] [address] Martínez Lopes MD [address] [facility] [place] [address] 11/06/2023 12:30 PM EST Scheduled Telephone [facility], [facility] [address] [facility] [place] [address] Lovely Bravo, SHAKIRN [address] [facility] [place] [address] 11/07/2023 11:20 AM EST Office Visit Family Medicine [address] [place] [address] Rhys Humphrey MD [address] [place] [address] [place] [address] 11/13/2023 8:30 AM EST Home Visit [facility], [facility] [address] [place] [address] Sarah Vitale RN [address] [place] [address] 12/10/2023 9:20 AM EDT Office Visit Family Medicine [address] [place] [phone] Rhys Humphrey MD [address] [place] [address] [place] [address] 12/26/2023 7:30 AM EDT Office Visit Sleep Disorders [facility] [address] [place] [phone] Sosa Freeman CRNP [address] [place] [address] 12/27/2023 11:00 AM EDT Office Visit Cardiology [address] [place] [address] Mi Neil PA-C [address] [place] [address] 03/18/2024 9:00 AM EDT Nurse Only Ancillary Zara Schofield[address] [place] [address] [place] Nurse [address] [place] [address] Scheduled Procedures Name Priority Associated Diagnoses Date/Ti [...] D LEVEL ONCE IN A LIFETIME-USE SMARTSET# [id number] Completed 06/29/2020, 03/16/2015 Pneumococcal Vaccine: 65+ Years [...] Documents on File Type Date Recorded Patient Host Expl anation POLST 10/15/2019 3:17 PM POLST POLST 03/05/2019 POLST FORM Advance Directives and Living Will 01/27/2013 LIVING WILL Advance Directives and Living Will 01/27/2013 LIVING WILL Power of Public Area Supervisor 01/27/2013 POWER OF A TTORNEY Power of Public Area Supervisor 01/27/2013 POWER OF A TTORNEY Healthcare Agents on File Name Relationship Healthcare Agent Relationship Communication Cydney Benito Other - (no specific identity) Second Alternate Health Care Agent Anyi More Adult Child Health Care Roberth r of Public Area Supervisor Care Teams Pattern Hanger Relationship Specialty Start Date End Date Rhys Humphrey MD [address] [place] [address] [place] [address] PCP - General Family Medicine 06/09/21 documented as of this encounter
--- OUTSIDE RECORDS SUMMARY | 2023-12-07 21:42 | External Medical Summary | Summary of Care ---
Author Name Unknown Organization [facility] Address [address] [place] [address] Phone [phone] Care Team Providers Care Oil Transport Driver Name Role Phone Rhys Humphrey MD Primary Care Provide r Reason for Visit * Reason Onset Date Comments [facility]: Maintenance 10/30/2023 Encounter Details Date Type Department Care Team (Late st Contact Info) Description 10/30/2023 Telephone [facility], [facility] 132 [facility] [place] [address] Amy Zaragoza, RN 132 [facility] [place] [address] [facility]: Maintenance Allergies Active Allergy Reactions Criticality Noted Date Comments Adhesive Tape Other (Please comment),Hives High 09/29/2008 Caused welts Dextromethorphan-Gu aifenesin Neuro complications (Please comment) Medium 12/23/2021 Feels lightheaded/"foggy" documented as of this encounter (statuses as of 10/30/2023) Medications Medication Sig Dispensed Refills Start Date [...] before bedtime. 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),COPD, group D, by GOLD [...] as of this encounter (statuses as of 10/30/2023) Active Problems Problem Noted Date Diagnosed Date [...] as of this encounter (statuses as of 10/30/2023) Resolved Problems Problem Noted Date Diagnosed Date [...] as of this encounter (statuses as of 10/30/2023) Immunizations Name Administration Dates Next Due COVID-19 mRNA, LNP-s, No Pre serve, 2-Dose Series ([employer]) 07/11/2021,11/14/2020,10/24/2020 Covid-19, Mrna, Lnp-s, Pf, B ivalent, 30 Mcg, IM, 12 yrs and above (Pfizer) 07/21/2022 Pneumococcal Conjugate Vacc, 13 Valent (Prevnar) 03/16/2015 Pneumococcal Conjugate Vacci ne, 20-valent ([id number]) 07/21/2022 Pneumococcal Polysaccharide PPV23 (Pneumovax) 03/05/2019,07/18/2007 Season [...] Aurelio SHAW that pt was admitted to [facility] 10/29-10/30 with copd exacerbation. Please schedule TOCs documented in this encounter Plan of Treatment Upcoming Encounters Date Type Department Care Team (Late st Contact Info) Description 11/06/2023 12:30 PM EST Scheduled Telephone [facility], [facility] [address] [facility] [place] [address] Lovely Bravo RDN [address] [place] [address] 11/07/2023 11:20 AM EST Office Visit Family Medicine [address] [place] [phone] Rhys Humphrey MD [address] [place] [address] [place] [address] 11/13/2023 8:30 AM EST Home Visit [facility], [facility] [address] [place] [address] Sarah Vitale, RAYNA 132 [facility] [place] [address] 12/10/2023 9:20 AM EDT Office Visit Family [address] [place] [phone] Rhys Humphrey MD [address] [place] [address] [place] [address] 12/26/2023 7:30 AM EDT Office Visit Sleep Disorders [facility] [address] [place] [phone] Sosa Freeman CRNP 132 [facility] [place] [address] 12/27/2023 11:00 AM EDT Office Visit Cardiology [address] [place] [address] Mi Neil PA-C [address] [place] [address] 03/18/2024 9:00 AM EDT Nurse Only Ancillary [address] [place] [address] Stanton, Nurse Annual [address] [place] [address] Scheduled Procedures Name Priority Associated Diagnoses Date/Ti [...] D LEVEL ONCE IN A LIFETIME-USE SMARTSET# 71830 Completed 06/29/2020, 03/16/2015 Pneumococcal Vaccine: 65+ Years [...] Documents on File Type Date Recorded Patient [employer] Supervisor Expl anation POLST 10/15/2019 3:17 PM POLST POLST 03/05/2019 POLST FORM Advance Directives and Living Will 01/27/2013 LIVING WILL Advance Directives and Living Will 01/27/2013 LIVING WILL Power of Scene And Lighting Design Lecturer 01/27/2013 POWER OF A TTORNEY Power of Scene And Lighting Design Lecturer 01/27/2013 POWER OF A TTORNEY Healthcare Agents on File Name Relationship Healthcare Agent Relationship Communication Cydney Benito Other - (no specific identity) Second Alternate Health Care Agent Anyi More Adult Child Health Care Roberth r of Scene And Lighting Design Lecturer Care Teams Oil Transport Driver Relationship Specialty Start Date End Date Rhys Humphrey MD [address] [place] [address] [place] [address] PCP - General Family Medicine 06/09/21 documented as of this encounter
--- OUTSIDE RECORDS SUMMARY | 2023-12-07 21:42 | External Medical Summary | Summary of Care ---
Author Name Unknown Organization [facility] Address [address] [place] [address] Phone [phone] Care Team Providers Care Manager Ct Name Role Phone Rhys Humphrey MD Primary Care Provide r Reason for Visit * Reason Onset Date Comments Appointment 10/31/2023 Encounter Details Date Type Department Care Team (Late st Contact Info) Description 10/31/2023 Telephone [facility], [place] [address] [place] [address] Services, Scheduling [address] [place] [address] Appointment Allergies Active Allergy Reactions Criticality Noted [...] before bedtime. 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),COPD, group D, by [...] Date Diagnosed Date Encounter for antineoplastic chemotherapy 12/18/ 2023 Small [...] mRNA, LNP-s, No Pre serve, 2-Dose Series ([employer]) 07/11/2021,11/14/2020,10/24/2020 Covid-19, Mrna, Lnp-s, Pf, B ivalent, 30 Mcg, IM, 12 yrs and above ([employer]) 07/21/2022 Pneumococcal Conjugate Vacc, 13 Valent (Prevnar) 03/16/2015 Pneumococcal Conjugate Vacci ne, 20-valent ([id number]) 07/21/2022 Pneumococcal Polysaccharide PPV23 (Pneumovax) 03/05/2019,07/18/2007 Season [...] encounter Miscellaneous Notes * Telephone Encounter - Ines Kenyon OSA - 10/31/2023 12:51 PM EST Spoke with pt concerning her toma appt on 11/06/23 at 530pm. Pt is aware and agreeable to date and time. documented in this encounter Plan of Treatment Upcoming Encounters Date Type Department Care Team (Late st Contact Info) Description 11/02/2023 1:45 PM EST Office Visit Hematology/Oncology [facility] Arvind Christensen [address] [place] [address] Martínez Lopes MD [address] [place] [address] 11/06/2023 12:30 PM EST Scheduled Telephone [facility], [facility] [address] [facility] [place] [address] Lovely Bravo, RDN [address] [facility] [place] [address] 11/06/2023 5:30 PM EST Home Visit [facility] [place], [facility] 132 [facility] [place] [address] Liya Dawson RN 132 [facility] [place] [address] 11/07/2023 11:20 AM EST Office Visit Family [address] [phone] Rhys Humphrey MD [address] [place] [address] [place] [address] 11/13/2023 8:30 AM EST [facility] Visit [facility] [place] [address] Sarah Vitale, RAYNA [address] [place] [address] 12/10/2023 9:20 AM EDT Office Visit Family Medicine [address] [phone] Rhys Humphrey MD [address] [place] [address] [place] [address] 12/26/2023 7:30 AM EDT Office Visit Sleep Disorders [facility] [address] [place] [phone] Sosa Freeman CRNP [address] [place] [address] 12/27/2023 11:00 AM EDT Office Visit Cardiology [address] [place] [address] Mi Neil, CECI [address] [place] [address] 03/18/2024 9:00 AM EDT Nurse Only Ancillary Zara [address] [place] [address] [place], Nurse [address] [place] [address] Scheduled Procedures Name Priority Associated Diagnoses Date/Ti [...] D LEVEL ONCE IN A LIFETIME-USE SMARTSET# [id number] Completed 06/29/2020, 03/16/2015 Pneumococcal Vaccine: 65+ Years [...] on File Type Date Recorded Patient Title Insurance Examiner Expl anation POLST 10/15/2019 3:17 PM POLST POLST 03/05/2019 POLST FORM Advance Directives and Living Will 01/27/2013 LIVING WILL Advance Directives and Living Will 01/27/2013 LIVING WILL Power of Electrical Construction Project Manager 01/27/2013 POWER OF A TTORNEY Power of Electrical Construction Project Manager 01/27/2013 POWER OF A TTORNEY Healthcare Agents on File Name Relationship Healthcare Agent Relationship Communication Cydney Benito Other - (no specific identity) Second Alternate Health Care Agent Anyi More Adult Child Health Care Roberth r of Electrical Construction Project Manager Care Teams Manager Ct Relationship Specialty Start Date End Date Rhys Humphrey MD [address] [place] [address] [place] [phone] PCP - General Family Medicine 06/09/21 documented as of this encounter
--- OUTSIDE RECORDS SUMMARY | 2023-12-07 21:42 | External Medical Summary | Summary of Care ---
Author Name Unknown Organization [facility] Address [address] [place] [address] Phone [phone] Care Team Providers Care Rack Carrier Name Role Phone Rhys Humphrey MD Primary Care Provide r Reason for Visit * Reason Onset Date Comments Advice 10/29/2023 appointments Encounter Details Date Type Department Care Team (Late st Contact Info) Description 10/29/2023 Telephone Hematology/Oncology [facility] [address] [place] [address] Services, Scheduling [address] [place] [address] Advice ( appointments) Allergies Active Allergy Reactions [...] before bedtime. 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),COPD, group D, by GOLD [...] mRNA, LNP-s, No Pre serve, 2-Dose Series ([employer]) 07/11/2021,11/14/2020,10/24/2020 Covid-19, Mrna, Lnp-s, Pf, B ivalent, 30 Mcg, IM, 12 yrs and above (Pfizer) 07/21/2022 Pneumococcal Conjugate Vacc, 13 Valent (Prevnar) 03/16/2015 Pneumococcal Conjugate Vacci ne, 20-valent ([id number]) 07/21/2022 Pneumococcal Polysaccharide PPV23 (Pneumovax) 03/05/2019,07/18/2007 Season [...] encounter Miscellaneous Notes * Telephone Encounter - Martínze Lopes MD - 10/29/2023 11:[address] chest done on 10/29/2023 at [facility]: - Precarinal soft tissue mass measuring 6.6 [...] pneumonitis. - No evidence of pulmonary emboli. She had a PET-CT scan on 09/10/2023, It did show significant decision the left lung and mediastinumand also It showed postoperative pneumonitis. She received 1st cycle of chemotherapy with carboplatin, etoposide and atezolizumab between 10/02/2023 - 10/04/2023. Will see how she does during this hospitalization. * Telephone Encounter - Sangeetha Acuna OSA [...] advise you that mom is admitted at [facility]. Please reach out to daughter at [phone] her name is [email or web address] . Thank you documented in this encounter Plan of Treatment Upcoming Encounters Date Type Department Care Team (Late st Contact Info) Description 11/06/2023 12:30 PM EST Scheduled Telephone [facility], [facility] [address] [place] [address] Lovely Bravo, RDN [address] [place] [address] 11/13/2023 8:30 AM EST Home Visit [facility], [facility] [address] [place] [address] Sarah Vitale, RAYNA [address] [place] [address] 12/10/2023 9:20 AM EDT Office Visit Family Medicine [address] [place] [phone] Rhys Humphrey MD [address] [place] [address] [place] [address] 12/26/2023 7:30 AM EDT Office Visit Sleep Disorders [facility] [address] [place] [phone] Sosa Freeman CRNP [address] [place] [address] 12/27/2023 11:00 AM EDT Office Visit Cardiology [address] [place] [address] Mi Neil, PARuthannC [address] [place] [address] 03/18/2024 9:00 AM EDT Nurse Only Ancillary [address] [place] [address] [place], Nurse Annual Wellness [address] [place] [address] [place] [address] Scheduled Procedures Name Priority Associated Diagnoses Date/Ti [...] D LEVEL ONCE IN A LIFETIME-USE SMARTSET# [id number] Completed 06/29/2020, 03/16/2015 Pneumococcal Vaccine: 65+ Years [...] Documents on File Type Date Recorded Patient Epic Director Expl anation POLST 10/15/2019 3:17 PM POLST POLST 03/05/2019 POLST FORM Advance Directives and Living Will 01/27/2013 LIVING WILL Advance Directives and Living Will 01/27/2013 LIVING WILL Power of Recreation Establishment Manager 01/27/2013 POWER OF A TTORNEY Power of Recreation Establishment Manager 01/27/2013 POWER OF A TTORNEY Healthcare Agents on File Name Relationship Healthcare Agent Relationship Communication Cydney Benito Other - (no specific identity) Second Alternate Health Care Agent Anyi More Adult Child Health Care Roberth r of Recreation Establishment Manager Care Teams Rack Carrier Relationship Specialty Start Date End Date Rhys Humphrey MD [address] [place] [address] [place] [phone] PCP - General Family Medicine 06/09/21 documented as of this encounter
[2023-12-07] MEDS: traZODone HCL 50 MG TAB PO PRN (22:07)
[2023-12-08 05:38] LABS: Hemoglobin 8.5 g/dl (12.0-16.0); Mean Corpuscular Hemoglobin 26.5 pg (25.0-34.0); Mean Corpuscular Hgb Conc 31.5 g/dL (32.0-36.0); Mean Corpuscular Volume 84.1 fL (80.0-100.0); Platelet Count 402 K/uL (130-400); RDW Coefficient of Variation 17.6 % (11.5-14.5); RDW Standard Deviation 54.1 fL (36.4-46.3); Red Blood Count 3.21 M/uL (4.20-5.40); White Blood Count 6.28 K/ul (4.8-10.8)
[2023-12-08 05:57] LABS: BUN Creatinine Ratio 14.8 (10-20); Creatinine Clr Calc Pharmacy 59.3 ml/min; Est GFR (African American) 96.5 ml/min; Est GFR (Non-African American) 83.2 ml/min; Magnesium 1.6 mg/dl (1.7-2.4); Phosphorus 4.1 mg/dl (2.5-4.9); Potassium 3.1 mmol/L (3.5-5.1)
[2023-12-08] MEDS: FERROUS SULFATE 325 MG TAB PO SCH (08:08)
[2023-12-08] MEDS: CEROVITE ADV FORMULA TAB PO SCH (08:09)
[2023-12-08] MEDS: MONTELUKAST SODIUM 10 MG TABLET PO SCH (08:09)
[2023-12-08] MEDS: allopurinoL 100 MG TAB PO SCH (08:10)
[2023-12-08] MEDS: ASPIRIN 81 MG ECTAB PO SCH (08:10)
[2023-12-08] MEDS: PANTOprazole 40 MG TAB PO SCH (08:10)
[2023-12-08] MEDS: FUROSEMIDE 40 MG/4 ML VIAL IV SCH (08:11)
[2023-12-08] MEDS: MAGNESIUM SULFATE / D5W 1 GM/100 ML BAG IV SCH (08:26)
[2023-12-08] MEDS: POTASSIUM CHLORIDE CRTAB 20 MEQ TABCR PO STA ×2 (08:26→13:54)
[2023-12-08] MEDS ORDERED: FUROSEMIDE 40 MG TAB PO SCH (09:00)
[2023-12-08] MEDS ORDERED: DOCUSATE SODIUM 100 MG CAP PO PRN (12:00)
--- NOTE | 2023-12-08 12:51 | Cardiology Consultation ---
Date of Consultation December 08, 2023 Assessment & Plan (1) URI (upper respiratory infection): (2) Acute on chronic hypoxic respiratory failure: (3) Coronavirus infection: (4) CHF (congestive heart failure): Plan Patient with multifactorial respiratory insufficiency with noted underlying lung carcinoma, non-COVID coronavirus infection, and acute on chronic heart failure with preserved ejection fraction. I agree with supportive care and furosemide. Potassium magnesium has been supplemented. There is a minimal troponin elevation with flat trend consistent with CHF and resultant myocardial strain without acute coronary syndrome. Based on presentation and lab results and echocardiogram, I do not think this is due to a myocarditis. Per my discussion with Dr. Pichardo, patient has elected to proceed with hospice at time of discharge. Continue palliative furosemide for now. History of Present Illness Attending Physician: Yelitza Pichardo MD History of Present Illness Soraya Lina[place] is an 82 year old female seen in cardiology consultation for the evaluation of shortness of breath and congestive heart failure. Patient admitted with worsening shortness of breath. States she is already feeling better. Daughter and son at bedside. Telemetry reveals SR in the 80s to 90s. 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 s/p chemotherapy with carboplatin, etoposide and atezolizumab Most recently treated with etopside 11/21/23 Allergies Allergy/AdvReac Type Severity Reaction Status Date / Time adhesive Allergy Intermediate HIVES Verified 12/07/23 13:52 Home Medications Medication Instructions Recorded Confirmed Type albuterol sulfate 90 mcg/actuation 2 puff inhalation Q4 PRN Shortness 09/18/19 12/07/23 History aerosol inhaler Of Breath Or Wheezing aspirin 81 mg tablet,delayed 81 mg PO DAILY 08/12/23 12/07/23 History release benzonatate 100 mg capsule 100 mg PO TID PRN Cough 08/12/23 12/07/23 History conjugated estrogens 0.625 mg/gram 500 mg vaginal 2XWK PRN dryness 08/12/23 12/07/23 History vaginal cream (Premarin) fluticasone furoate 100 1 inh inhalation DAILY PRN 08/12/23 12/07/23 History mcg/actuation blister powder for Breathing Problems inhalation (Arnuity Ellipta) ipratropium 0.5 mg-albuterol 3 mg 3 ml inhalation Q6H PRN Shortness 08/12/23 12/07/23 History (2.5 mg base)/3 mL nebulization Of Breath Or Wheezing soln loratadine 10 mg tablet (Claritin) See Rx Instructions .Route .COMPLEX 08/12/23 12/07/23 History umeclidinium 62.5 mcg-vilanterol 1 inh inhalation DAILY PRN 08/12/23 12/07/23 History 25 mcg/actuation powdr for Breathing Problems inhalation (Anoro Ellipta) acetaminophen 325 mg tablet (Pain 650 mg PO HS PRN Pain 10/29/23 12/07/23 History Reliever (acetaminophen)) allopurinol 100 mg tablet 100 mg PO DAILY 10/29/23 12/07/23 History docusate sodium 100 mg capsule 200 mg PO DAILY@1200 PRN 10/29/23 12/07/23 History Constipation famotidine 20 mg tablet 20 mg PO BID 10/29/23 12/07/23 History ferrous sulfate 325 mg (65 mg 325 mg PO DAILY 10/29/23 12/07/23 History iron) tablet (FeroSul) furosemide 40 mg tablet 40 mg PO DAILY 10/29/23 12/07/23 History gabapentin 300 mg capsule 900 mg PO HS 10/29/23 12/07/23 History losartan 50 mg tablet 50 mg PO BID 10/29/23 12/07/23 History montelukast 10 mg tablet 10 mg PO DAILY 10/29/23 12/07/23 History omega 2-sya-ajo-fish oil 1,200 mg 1 cap PO BID 10/29/23 12/07/23 History (144 mg-216 mg) capsule (Fish Oil) pantoprazole 40 mg tablet,delayed 40 mg PO DAILY 10/29/23 12/07/23 History release trazodone 50 mg tablet 25 mg PO HS PRN Insomnia 10/29/23 12/07/23 History budesonide 0.5 mg/2 mL suspension 0.5 mg (2 mL) NEB BIDR #60 mL 10/30/23 12/07/23 Rx for nebulization formoterol fumarate 20 mcg/2 mL 20 mcg (2 mL) NEB BIDR #60 mL 10/30/23 12/07/23 Rx solution for nebulization (Perforomist) azithromycin 250 mg tablet See Rx Instructions .Route .COMPLEX 12/07/23 12/07/23 History ziliqyi-anfzbjqes-zeub 333 mg-133 1 tab PO DAILY 12/07/23 12/07/23 History mg-8.3 mg tablet cranberry extract 500 mg capsule 500 mg PO BID 12/07/23 12/07/23 History (Cranberry Concentrate) guaifenesin 100 mg/5 mL oral liquid 200 mg PO HS 12/07/23 12/07/23 History amvvnhwi-ietwjue-zyue-lutein tablet 1 tab PO DAILY 12/07/23 12/07/23 History prochlorperazine maleate 10 mg 10 mg PO Q6H PRN Nausea And 12/07/23 12/07/23 History tablet Vomiting ramelteon 8 mg tablet 8 mg PO HS 12/07/23 12/07/23 History Patient History Medical History 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 related osteoporosis Nocturnal hypoxemia Small cell neuroendocrine carcinoma of lung History of COVID-19 2+ years ago > no further issues Chronic anemia chronic, baseline hgb 10-11 range per chart review Aortic stenosis Mild aortic stenosis per 12/29/21 echo nonrheumatic Carotid artery stenosis s/p right (5+ years ago)/left (2020) carotid endarterectomy Thyroid nodule Under surveillance Myocardial Infarction Several years ago ISELA (obstructive sleep apnea) Not currently using CPAP due to recall TIA (transient ischemic attack) 10 years ago, 03/11/21 > follows with [facility] Prediabetes Depression Non-Hodgkin lymphoma Chronic diastolic heart failure Nocturnal hypoxemia Lymphoma GERD (gastroesophageal reflux disease) COPD (chronic obstructive pulmonary disease) Stable Hypertension Hyperlipidemia Surgical History History of left-sided carotid endarterectomy History of esophagogastroduodenoscopy (EGD) History of colonoscopy History of left hip replacement H/O carotid endarterectomy Right History of hysterectomy Family History Other No family history of adverse response to anesthesia Stroke Social History (Reviewed 12/07/23 @ 18:28 by MICKEY Hoff Smoking Status: Former smoker Tobacco Type: Cigarettes Second Hand Exposure: No; Do You Dip or Chew Tobacco: No; Hx Alcohol Use: Yes Alcohol type: wine Hx Substance Use: No Preferred Language: Malay Communication Ability: Effective Blue Split Trimmer Required: No Beliefs That Will Affect Care: None marital status: Unknown Current Living Situation: Alone Current Living Situation Comment: [address] [place] current occupational status: retired Feels Safe at Home: Yes Safety Concerns: Feels Safe At This Time Assistive Devices: Nebulizer, Oxygen - Continuous, Walker and Wheelchair Review of Systems Review of Systems: All systems reviewed & are unremarkable except as noted in HPI & below Physical Exam Constitutional: + ill appearing; no acute distress Respiratory: Auscultation: + diminished lung sounds (mildly reduced BS at the bases ); no crackles and no rales Cardiovascular: Rate/Rhythm: regular rate and regular rhythm Heart Sounds: + murmur (1/6 SM ) Extremities: no edema Gastrointestinal (Abdomen): normal bowel sounds, soft, nontender, no hepatosplenomegaly Results & Data Vital Signs (Past 12 Hours) Vital Signs Temp Pulse Pulse Resp BP Pulse Ox O2 Del Method 12/08/23 08:18 36.6 C 92 H 18 177/69 H 94 Room Air 12/08/23 08:10 Nasal Cannula 12/08/23 07:53 90 18 92 Nasal Cannula 12/08/23 07:00 97 H 12/08/23 03:00 36.7 C 80 18 144/60 H 97 Nasal Cannula O2 Flow Rate 12/08/23 08:18 12/08/23 08:10 5 12/08/23 07:53 4 12/08/23 07:00 12/08/23 03:00 5 Laboratory Results CBC 12/08/23 Range/Units 04:26 WBC 6.28 (4.8-10.8) K/ul RBC 3.21 L (4.20-5.40) M/uL Hgb 8.5 L (12.0-16.0) g/dl Hct 27.0 L (37.0-47.0) % Plt Count 402 H (130-400) K/uL Comprehensive Metabolic Panel 12/08/23 Range/Units 04:26 Sodium 140 (136-145) mmol/L Potassium 3.1 L (3.5-5.1) mmol/L Chloride 99 (98-107) mmol/L Carbon Dioxide 34 H (21-32) mmol/L BUN 9 (6-23) mg/dl Creatinine 0.61 (0.6-1.2) mg/dl Glucose 82 (70-99(Fasting)) mg/dl Calcium 8.0 L (8.6-10.3) mg/dl Intake and Output 12/07/23 12/08/23 12/08/23 22:59 06:59 14:59 Intake Total 680 / 680 Balance 680 / 680 Intake: IV 200 / 200 Magnesium Sulfate / D5w 1 gm In 200 / 200 100 ml @ 50 mls/hr IV Q2H [facility] Rx#:[id number] Oral 480 / 480 Other: Other Intake Source sips Weight 65.5 kg 61.037 kg Weight Measurement Method [facility] Diagnostic Findings Transthoracic echocardiogram performed 12/08/2023 interpreted pendantly: Mild concentric left ventricular hypertrophy Normal LV wall motion LVEF in the range of 55-60% Mild aortic valve stenosis is present Moderate mitral annular calcification Mild to moderate mitral regurgitation Grade 2 diastolic dysfunction Small left pleural effusion is present Summary of radiology report of CTA chest performed 12/07/2023: 1. Generally unchanged size of the left hilar mass suggestive of primary bronchogenic carcinoma with metastatic adenopathy which appears stable compared to the 10/29/2023 exam. 2. The aforementioned mass /lymphadenopathy encases the left hilar structures and narrows/opacifies the left lower lobe bronchus resulting in progressive left lower lobe consolidation/postobstructive pneumonitis and volume loss. 3. Interval development of diffuse reticulonodular opacities with centrilobular micronodules. Findings are favored to be infectious or inflammatory, however carcinomatosis could appear similarly. Follow-up is needed. 4. Cardiomegaly with mild pulmonary edema and small pleural effusions. 5. Spiculated irregular 9 mm nodule of the left upper lobe. 6. No pulmonary emboli identified.
--- NOTE | 2023-12-08 13:48 | Hospitalist Progress Note ---
Date of Service December 08, 2023 Assessment & Plan (1) URI (upper respiratory infection): Plan Acute on chronic CHF with preserved ejection fraction Acute on chronic hypoxic respiratory failure Non-COVID coronavirus infection History of small cell neuroendocrine carcinoma of lung/COPD/ISELA Patient presented with acute worsening of shortness of breath. Admitting chest imagings with cardiomegaly and pulmonary congestion. No evidence of PE. BioFire positive for non-COVID coronavirus. BNP elevated at 711. Possible worsening cardiac function ISO chemotherapy. Patient received IV Lasix at ED with some relief in her shortness of breath. Cardiology evaluated, plan to continue with palliative diuresis. Continue supportive care for viral URI with Mucinex, incentive spirometer, flutter valve, Tessalon Perles. IV Lasix for now, supplemental oxygen. Telemetry monitoring. Continue with home inhalers. Likely demand ischemia: Troponin slightly elevated at presentation in the setting of acute on chronic heart failure. Patient with no chest pain, continue telemetry monitoring. Aortic stenosis: Chronic, stable. Continue with diuresis. Extensive cancer history and goals of care discussion: Non-Hodgkin's lymphoma, SCLC with mets, follicular lymphoma, neuroendocrine carcinoma. Currently on chemotherapy. Patient plans to not pursue any chemotherapy in future. Patient would like to be discharged to her apartment with hospice care. Until such has happened, she wants to continue with conservative therapy while in hospital. medical services manager consulted. DVT prophylaxis: lars carpio CODE: DNR/DNI Disposition: CM to assist with DC planning. Admission and Anticipated Discharge Date Admission Date: December 07, 2023 Subjective Patient was seen and examined at bedside. Patient was lying semiupright in bed, on 5 L oxygen via nasal cannula, resting comfortably, not in any acute distress. Patient reports improvement in her nausea, vomiting, diarrhea, belly pain. Patient reports improvement in her shortness of breath. Patient denies any febrile illness or headache or dizziness or chest pain. Patient's son at bedside who was also updated on her current status and we discussed about her plan of care regarding discharge and hospice. Patient is very much with it and oriented x 4 and was mentioning that she is considering not pursuing any chemotherapy in future and considering hospice upon discharge when we had a chat yesterday during admission. But she said that she is still thinking about hospice at that time. Today with patient and patient's son at bedside, she stated that she had decided she would like to go to her apartment with hospice care. Patient's son participated in the conversation and is aware of the plan of care. He stated he will relay the message and plan of care to other family members. Discussed with the case repairer, consult placed for hospice eval and treat. Discussed with cardiology, plan to continue with palliative diuresis for now. Physical Exam Physical Exam: GENERAL: Alert and oriented x3. NAD, on 5L NC O2. Appears ill/frail/weak. HEENT: No pallor, no icterus. Pupils equal, round and reactive to light. Oral mucosa moist. NECK: No JVD, no neck masses. HEART: S1 and S2 heard. Regular rate and rhythm. + murmur, no gallop. RESPIRATORY SYSTEM: Normal AP diameter. No accessory muscle use. No wheezing, bb crackles. ABDOMEN: Soft, bowel sounds present, nontender, no distention. CENTRAL NERVOUS SYSTEM: No facial droop. Speech is clear. Obeys simple commands. Moves extremities. EXTREMITIES: trace ble edema, no erythema seen. Results & Data Results & Data Vital Signs (Past 12 Hours) Vital Signs Temp Pulse Pulse Resp BP Pulse Ox O2 Del Method 12/08/23 08:18 36.6 C 92 H 18 177/69 H 94 Room Air 12/08/23 08:10 Nasal Cannula 12/08/23 07:53 90 18 92 Nasal Cannula 12/08/23 07:00 97 H 12/08/23 03:00 36.7 C 80 18 144/60 H 97 Nasal Cannula O2 Flow Rate 12/08/23 08:18 12/08/23 08:10 5 12/08/23 07:53 4 12/08/23 07:00 12/08/23 03:00 5
[2023-12-09 04:52] LABS: Hematocrit (blood only) 26.8 % (37.0-47.0); Hemoglobin 8.4 g/dl (12.0-16.0); Mean Corpuscular Hemoglobin 26.2 pg (25.0-34.0); Mean Corpuscular Hgb Conc 31.3 g/dL (32.0-36.0); Mean Corpuscular Volume 83.5 fL (80.0-100.0); Platelet Count 421 K/uL (130-400); RDW Coefficient of Variation 17.3 % (11.5-14.5); RDW Standard Deviation 52.9 fL (36.4-46.3); Red Blood Count 3.21 M/uL (4.20-5.40); White Blood Count 7.88 K/ul (4.8-10.8)
[2023-12-09 05:06] LABS: BUN Creatinine Ratio 15.3 (10-20); Calcium 8.3 mg/dl (8.6-10.3); Creatinine Clr Calc Pharmacy 61.3 ml/min; Est GFR (African American) 97.5 ml/min; Est GFR (Non-African American) 84.2 ml/min; Magnesium 1.7 mg/dl (1.7-2.4); Phosphorus 3.6 mg/dl (2.5-4.9); Potassium 3.5 mmol/L (3.5-5.1)
[2023-12-09] MEDS: POTASSIUM CHLORIDE CRTAB 20 MEQ TABCR PO STA (09:42)
[2023-12-09] MEDS: MAGNESIUM SULFATE / D5W 1 GM/100 ML BAG IV SCH (09:42)
--- NOTE | 2023-12-09 15:35 | Hospitalist Progress Note ---
Date of Service December 09, 2023 Assessment & Plan (1) URI (upper respiratory infection): Plan Acute on chronic CHF with preserved ejection fraction Acute on chronic hypoxic respiratory failure Non-COVID coronavirus infection History of small cell neuroendocrine carcinoma of lung/COPD/ISELA Patient presented with acute worsening of shortness of breath. Admitting chest imagings with cardiomegaly and pulmonary congestion. No evidence of PE. BioFire positive for non-COVID coronavirus. BNP elevated at 711. Possible worsening cardiac function ISO chemotherapy. Patient received IV Lasix at ED with some relief in her shortness of breath. Cardiology evaluated, plan to continue with palliative diuresis. Continue supportive care for viral URI with Mucinex, incentive spirometer, flutter valve, Tessalon Perles. IV Lasix to home po lasix from [facility], supplemental oxygen. Telemetry monitoring. Continue with home inhalers. Likely demand ischemia: Troponin slightly elevated at presentation in the setting of acute on chronic heart failure. Patient with no chest pain, continue telemetry monitoring. Aortic stenosis: Chronic, stable. Continue with diuresis. Extensive cancer history and goals of care discussion: Non-Hodgkin's lymphoma, SCLC with mets, follicular lymphoma, neuroendocrine carcinoma. Currently on chemotherapy. Patient plans to not pursue any chemotherapy in future. Patient would like to be discharged to her apartment with hospice care. Until such has happened, she wants to continue with conservative therapy while in hospital. assistant project manager consulted 12/07. DVT prophylaxis: lars carpio CODE: DNR/DNI Disposition: to assist with DC planning. Admission and Anticipated Discharge Date Admission Date: December 07, 2023 Subjective Patient was seen and examined at bedside. Patient was lying semiupright in bed, on 4 L oxygen via nasal cannula, resting comfortably, not in any acute distress. Patient reports no nausea, vomiting, diarrhea, belly pain. Patient reports significant improvement in her shortness of breath. Patient denies any febrile illness or headache or dizziness or chest pain. Physical Exam Physical Exam: GENERAL: Alert and oriented x3. NAD, on 4L NC O2. Appears ill/frail/weak. HEENT: No pallor, no icterus. Pupils equal, round and reactive to light. Oral mucosa moist. NECK: No JVD, no neck masses. HEART: S1 and S2 heard. Regular rate and rhythm. + murmur, no gallop. RESPIRATORY SYSTEM: Normal AP diameter. No accessory muscle use. No wheezing, bb crackles. ABDOMEN: Soft, bowel sounds present, nontender, no distention. CENTRAL NERVOUS SYSTEM: No facial droop. Speech is clear. Obeys simple commands. Moves extremities. EXTREMITIES: trace ble edema, no erythema seen. Results & Data Results & Data Vital Signs (Past 12 Hours) Vital Signs Temp Pulse Pulse Resp BP Pulse Ox Pulse Ox 12/09/23 15:00 84 12/09/23 12:18 91 12/09/23 11:49 36.5 C 89 18 112/55 L 92 12/09/23 07:45 12/09/23 07:19 36.9 C 88 20 162/62 H 100 12/09/23 07:16 87 17 96 12/09/23 07:00 83 12/09/23 06:02 36.5 C 86 16 116/53 L 94 Pulse Ox O2 Del Method O2 Flow Rate O2 Flow Rate O2 Flow Rate 12/09/23 15:00 12/09/23 12:18 88 L 4 4 12/09/23 11:49 Nasal Cannula 4 12/09/23 07:45 Nasal Cannula 4 12/09/23 07:19 Nebulizer 10 12/09/23 07:16 Nasal Cannula 4 12/09/23 07:00 12/09/23 06:02 Nasal Cannula 4
[2023-12-09] MEDS: LABETALOL HCL IV 5 MG/ML 20ML IV PRN (22:43)
[2023-12-09] MEDS: ACETAMINOPHEN 325 MG TAB PO PRN (22:46)
[2023-12-10 04:37] LABS: BUN Creatinine Ratio 13.6 (10-20); Calcium 8.6 mg/dl (8.6-10.3); Creatinine Clr Calc Pharmacy 61.3 ml/min; Est GFR (African American) 97.5 ml/min; Est GFR (Non-African American) 84.2 ml/min; Magnesium 1.5 mg/dl (1.7-2.4); Phosphorus 4.4 mg/dl (2.5-4.9)
[2023-12-10] MEDS: FUROSEMIDE 40 MG TAB PO SCH (08:54)
[2023-12-10] MEDS: MAGNESIUM SULFATE / D5W 1 GM/100 ML BAG IV SCH (08:54)
--- NOTE | 2023-12-10 15:23 | Hospitalist Progress Note ---
Date of Service December 10, 2023 Assessment & Plan (1) URI (upper respiratory infection): Plan Acute on chronic CHF with preserved ejection fraction Acute on chronic hypoxic respiratory failure Non-COVID coronavirus infection History of small cell neuroendocrine carcinoma of lung/COPD/ISELA Patient presented with acute worsening of shortness of breath. Admitting chest imagings with cardiomegaly and pulmonary congestion. No evidence of PE. BioFire positive for non-COVID coronavirus. BNP elevated at 711. Possible worsening cardiac function ISO chemotherapy. Patient received IV Lasix at ED with some relief in her shortness of breath. Cardiology evaluated, plan to continue with palliative diuresis. Continue supportive care for viral URI with Mucinex, incentive spirometer, flutter valve, Tessalon Perles. IV Lasix to home po lasix 3/11 am, supplemental oxygen. Telemetry monitoring. Continue with home inhalers. Likely demand ischemia: Troponin slightly elevated at presentation in the setting of acute on chronic heart failure. Patient with no chest pain, continue telemetry monitoring. Aortic stenosis: Chronic, stable. Continue with diuresis. Extensive cancer history and goals of care discussion: Non-Hodgkin's lymphoma, SCLC with mets, follicular lymphoma, neuroendocrine carcinoma. Currently on chemotherapy. Patient plans to not pursue any chemotherapy in future. Patient would like to be discharged to her apartment with hospice care. Until such has happened, she wants to continue with conservative therapy while in hospital. farm field manager consulted 12/07. DVT prophylaxis: hsirin sc[place] CODE: DNR/DNI Disposition: to assist with DC planning. likely dc w/ hospice. Admission and Anticipated Discharge Date Admission Date: December 07, 2023 Subjective Patient was seen and examined at bedside. Patient was sitting up in bed, on 4 L oxygen via nasal cannula, resting comfortably, not in any acute distress. Patient reports no nausea, vomiting, diarrhea, belly pain. Patient reports significant improvement in her shortness of breath. Patient denies any febrile illness or headache or dizziness or chest pain. Physical Exam Physical Exam: GENERAL: Alert and oriented x3. NAD, on 4L NC O2. Appears ill/frail/weak. HEENT: No pallor, no icterus. Pupils equal, round and reactive to light. Oral mucosa moist. NECK: No JVD, no neck masses. HEART: S1 and S2 heard. Regular rate and rhythm. + murmur, no gallop. RESPIRATORY SYSTEM: Normal AP diameter. No accessory muscle use. No wheezing, bb crackles. ABDOMEN: Soft, bowel sounds present, nontender, no distention. CENTRAL NERVOUS SYSTEM: No facial droop. Speech is clear. Obeys simple commands. Moves extremities. EXTREMITIES: trace ble edema, no erythema seen. Results & Data Results & Data Vital Signs (Past 12 Hours) Vital Signs Temp Pulse Pulse Resp BP BP Pulse Ox 12/10/23 15:00 91 H 12/10/23 11:08 36.2 C L 92 H 16 151/66 H 99 12/10/23 10:59 82 15 95 12/10/23 09:00 12/10/23 08:02 36.3 C L 85 14 174/67 H 96 12/10/23 07:49 94 H 18 95 12/10/23 07:17 83 12/10/23 03:31 36.6 C 74 18 147/63 H 95 O2 Del Method O2 Flow Rate 12/10/23 15:00 12/10/23 11:08 Nasal Cannula 8 12/10/23 10:59 Nasal Cannula 4 12/10/23 09:00 Nasal Cannula 4 12/10/23 08:02 Nasal Cannula 4 12/10/23 07:49 Nasal Cannula 4 12/10/23 07:17 12/10/23 03:31 Nasal Cannula 4
[2023-12-10] MEDS ORDERED: MELATONIN 3 MG TAB PO PRN (19:50)
[2023-12-10] MEDS: MELATONIN 3 MG TAB PO STA (20:09)
[2023-12-11 05:55] LABS: BUN Creatinine Ratio 15.7 (10-20); Calcium 8.1 mg/dl (8.6-10.3); Creatinine Clr Calc Pharmacy 70.9 ml/min; Est GFR (African American) 102.3 ml/min; Est GFR (Non-African American) 88.3 ml/min; Magnesium 1.5 mg/dl (1.7-2.4); Potassium 3.9 mmol/L (3.5-5.1)
[2023-12-11] MEDS: MAGNESIUM SULFATE / D5W 1 GM/100 ML BAG IV SCH (09:18)
--- NOTE | 2023-12-11 12:43 | Discharge Summary ---
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 Today she presents to ER for shortness of breath. Pt on chronic supplemental oxygen 5 L/min. This has increased since her most recent previous hospital stay per oncology. Patient reports that her family, daughter present at bedside, are very helpful and keep precise records of her care. Daughter reports that she initially had a right-sided chest pain on Sunday, 4 days ago, and that it moved down into her chest. She notes no drops in O2 sats that she checks this every morning, regularly is between 91 to 93%. Patient has been using nebulizers and lumbar inhalers as directed. She has a portable nebulizer which she also has been using. Denies any recent sick contacts but has been feeling worse for about 1 day. States that she called her daughter around 3 AM stating not feeling well, had increased shortness of breath, denies fevers, sweats or chills. At 6 AM no improvement after nebulizer treatments she was transported to the hospital via EMS. She does follow with outpatient pulmonology, Marielena Wong but has not seen them since August 2023 after having bronchoscopy. Her last chemotherapy was given about 2 weeks ago on 11/21/23, next cycle is due 12/16. Chemo regimen includes carboplatin, etoposide, atezolizumab with prophylactic pegfilgrastim. Patient Dr. Lopes with oncology. She notes that she has had 2 hospitalizations after each chemotherapy session, and she states that she is not interested in pursuing further chemotherapy. She has spoken with her daughters about quality of life, and has already started making transitions with [facility] bed that sits her up at home. A cousin of hers works through hospice agency and is well versed in what they would be able to provide for her at home. We had discussion regarding case management and the ability to set her up with hospice prior to going home from this hospital stay, we will continue conversation throughout this admission. Previous Hospitalizations: Aug 2023 at [facility] and underwent a bronchoscopy with endobronchial ultrasound guidance for evaluation of mediastinal lymphadenopathy and left lower lobe lung nodular density. Thick mucoid secretions were noted bilaterally within the tracheobronchial tree. There was a mass obstructing the entrance of the superior segment of the left lower lobe. 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 She was sent home with a course of Augmentin. The BAL revealed evidence of infection with Moraxella and some mold was also noted in the sample. [facility] 08/12/2023 to 08/15/2023 for acute respiratory failure secondary to postobstructive pneumonia with unknown endobronchial lesion. At that time she was seen by pulmonary and medical therapy was continued for her pneumonia. Admission Exam Per Admitting Provider General: awake, alert, no apparent distress, + chronically ill white female, alopecia Head: Normocephalic, atraumatic ENT: PERRL, EOMI, no pharyngeal exudate, mucous membranes moist Chest: Coarse breath sounds throughout, significant rale in right side, on 5L via NC, + minimally productive cough with clear sputum, no hemoptysis Cardiac: Regular rhythm, heart rate in the 90s at bedside, + loud GERARD, no JVD, normal peripheral pulses, good capillary refill Abdominal: NABS x 4 quadrants, soft, nondistended, nontender to palpation, no rebound or guarding Extremities: Normal inspection, + trace peripheral edema, no erythema, calfs no ntender to palpation Psych: Normal mood and affect Neuro: AAO x 3, strength intact bilaterally and rated 5/5, no motor deficits, speech is clear, no peripheral sensory deficits Principal Diagnosis Acute on chronic CHF with preserved ejection fraction Acute on chronic hypoxic respiratory failure Non-COVID coronavirus infection History of small cell neuroendocrine carcinoma of lung/COPD/ISELA Discharge Exam GENERAL: Alert and oriented x3. NAD, on 4L NC O2. Appears ill/frail/weak. HEENT: No pallor, no icterus. Pupils equal, round and reactive to light. Oral mucosa moist. NECK: No JVD, no neck masses. HEART: S1 and S2 heard. Regular rate and rhythm. + murmur, no gallop. RESPIRATORY SYSTEM: Normal AP diameter. No accessory muscle use. No wheezing, bb crackles. ABDOMEN: Soft, bowel sounds present, nontender, no distention. CENTRAL NERVOUS SYSTEM: No facial droop. Speech is clear. Obeys simple commands. Moves extremities. EXTREMITIES: trace ble edema, no erythema seen. Discharge Data Allergies Allergy/AdvReac Type Severity Reaction Status Date / Time adhesive Allergy Intermediate HIVES Verified 12/07/23 13:52 Consultations 12/07/23 15:07 ED Decision to Admit Stat 12/07/23 17:06 Consult Cardiology Routine Ordered Studies 12/07/23 13:39 CT angio chest PE protocol Stat Hospital Course (1) URI (upper respiratory infection): Plan Acute on chronic CHF with preserved ejection fraction Acute on chronic hypoxic respiratory failure Non-COVID coronavirus infection History of small cell neuroendocrine carcinoma of lung/COPD/ISELA Patient presented with acute worsening of shortness of breath. Admitting chest imagings with cardiomegaly and pulmonary congestion. No evidence of PE. BioFire positive for non-COVID coronavirus. BNP elevated at 711. Possible worsening cardiac function ISO chemotherapy. Patient received IV Lasix at ED with some relief in her shortness of breath. Cardiology evaluated, plan to continue with palliative diuresis. Continue supportive care for viral URI with Mucinex, incentive spirometer, flutter valve, Tessalon Perles. IV Lasix to home po lasix 3/11 am, supplemental oxygen. Continue with home inhalers. Pt is being discharged to home w/ hospice. Likely demand ischemia: Troponin slightly elevated at presentation in the setting of acute on chronic heart failure. Patient with no chest pain, continue telemetry monitoring. Aortic stenosis: Chronic, stable. Continue with diuresis. Extensive cancer history and goals of care discussion: Non-Hodgkin's lymphoma, SCLC with mets, follicular lymphoma, neuroendocrine carcinoma. Currently on chemotherapy. Patient plans to not pursue any chemotherapy in future. Pt chose to go home w/ hospice, and likely getting dc'd today. DVT prophylaxis: teds, scds CODE: DNR/DNI Disposition: CM to assist with DC planning. likely dc w/ hospice. Home Health Attestation I certify that this patient is under my care and that I, or a physicians assistant professor in family studies working with me, had a face to-face encounter that meets the home health [id number] encounter requirements with this patient. The encounter with the patient was in whole, or in part, for the following medical condition, which is the primary reason for home health care (list medical condition): I certify that, based on my findings, the following services are medically necessary home health services: My clinical findings support the need for the above services because: Further, I certify that my clinical findings support that this patient is homebound (i.e. absences from home require considerable and taxing effort and are for medical reasons or quaker services or infrequently or of short duration when for other reasons) because: Certification for Home Health Services: Based on the above findings, I certify that this patient is confined to the home and needs intermittent senior living care, physical therapy and/or speech therapy or continues to need occupational therapy. The patient is under my care, and I have initiated the establishment of the plan of care. This patient will be followed by a physician who will periodically review the plan of care. Total Time Total Time Spent Total Time Spent (In Minutes): 45 Discharge Plan Discharge Items Patient Disposition: Hospice - Home Reason For Visit: SHORTNESS OF BREATH Discharge Diagnosis: Acute on chronic CHF with preserved ejection fraction Acute on chronic hypoxic respiratory failure Non-COVID coronavirus infection History of small cell neuroendocrine carcinoma of lung/COPD/ISELA Activity: Resume your previous activity Non-emergency contact: Primary Care Provider Call non-emergency contact if: you have any medication questions Follow-up/Referrals: Rhys Humphrey MD [Primary Care Provider] - Diet: Regular Addtl Attending Provider Instructions: You are being discharged to home with hospice. Once hospice providers take over the care, they will start managing your medications and other aspects of comfort care. Pending Studies at Discharge: No Stand-Alone Forms: My [facility] Medications and DC Order Prescriptions: Continued albuterol sulfate 90 mcg/actuation HFA aerosol inhaler 2 puff INHALATION Q4 PRN (Reason: Shortness Of Breath Or Wheezing) ipratropium-albuterol 0.5 mg-3 mg(2.5 mg base)/3 mL Solution For Nebulization 3 ml INHALATION Q6H PRN (Reason: Shortness Of Breath Or Wheezing) aspirin 81 mg Tablet,Delayed Release (Dr/Ec) 81 mg PO DAILY benzonatate 100 mg capsule 100 mg PO TID PRN (Reason: Cough) Premarin 0.625 mg/gram cream 500 mg vaginal 2XWK PRN (Reason: dryness) Rx Instructions: SUNDAY & SUNDAY loratadine [Claritin] 10 mg Tablet See Rx Instructions .ROUTE .COMPLEX Rx Instructions: On day 3 of Chemo start taking 10mg by mouth daily for 5 days only. Anoro Ellipta 62.5-25 mcg/actuation Blister With Device 1 inh INHALATION DAILY PRN (Reason: Breathing Problems) Arnuity Ellipta 100 mcg/actuation Blister With Device 1 inh INHALATION DAILY PRN (Reason: Breathing Problems) trazodone 50 mg tablet 25 mg PO HS PRN (Reason: Insomnia) allopurinol 100 mg tablet 100 mg PO DAILY losartan 50 mg tablet 50 mg PO BID furosemide 40 mg tablet 40 mg PO DAILY acetaminophen [Pain Reliever (acetaminophen)] 325 mg tablet 650 mg PO HS PRN (Reason: Pain) famotidine 20 mg tablet 20 mg PO BID pantoprazole 40 mg tablet,delayed release (DR/EC) 40 mg PO DAILY ferrous sulfate [FeroSul] 325 mg (65 mg iron) tablet 325 mg PO DAILY docusate sodium 100 mg capsule 200 mg PO DAILY@1200 PRN (Reason: Constipation) gabapentin 300 mg capsule 900 mg PO HS montelukast 10 mg tablet 10 mg PO DAILY omega [id number]-fta-ams-fish oil [Fish Oil] 1,200 (144-216) mg capsule 1 cap PO BID formoterol fumarate [Perforomist] 20 mcg/2 mL Solution For Nebulization 20 mcg NEB BIDR Qty: 60 0RF budesonide 0.5 mg/2 mL Suspension For Nebulization 0.5 mg NEB BIDR Qty: 60 0RF prochlorperazine maleate 10 mg tablet 10 mg PO Q6H PRN (Reason: Nausea And Vomiting) guaifenesin [Robitussin] 100 mg/5 mL Liquid 200 mg PO HS Centrum Silver Ultra Women's Tablet 1 tab PO DAILY cranberry extract [Cranberry Concentrate] 500 mg capsule 500 mg PO BID ramelteon 8 mg tablet 8 mg PO HS vdehbby-lshkjnbys-wdnr 333-133-8.3 mg Tablet 1 tab PO DAILY Rx Instructions: At noon Discontinued azithromycin 250 mg tablet See Rx Instructions .ROUTE .COMPLEX Rx Instructions: Take 250mg by mouth once daily starting 7 days after chemo for 10 days for pneumonia prevention. As of 12/07/23 pt is on day 8 of 10. Discharge Orders: Discharge Order (Routine); Ordered 12/11/23 Ordered By: Yelitza Pichardo Admission Data Admit Date/Time: 12/07/23 15:30 Attending Provider: Yelitza Pichardo Admit Provider: Yelitza Pichardo Primary Care Provider: Rhys Humphrey Other Providers: Yelitza Pichardo; Raul Nelson
== END 2023-12-11 14:13 | disposition hospice, home (50) | DRG 291 ==
LOC: ED 09:58 → EDINP 15:30 → 2W 22:29

== ENCOUNTER 2024-04-19 11:23 | Inpatient (IN) ==
--- NOTE | 2024-04-19 11:32 | Emergency Department Note ---
Impression & Plan Acute on chronic hypoxic respiratory failure, Hospice care patient, Metastatic disease ED Provider Note NAME: LORIE FLETCHER AGE: 83 SEX: F : 1940 ARRIVES VIA: Ambulance INFORMANT: Patient ED PROVIDER(S): Eb Ramos MD CHIEF COMPLAINT: Hospice care patient, acute respiratory failure, referred. 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 The patient was disap pointed that she referred to the hospital as her intent was to remain at home. In fact she was seen in this emergency department on 03/22 and had "wanted to live out her days at home". The patient's daughter did arrive to the bedside and explained that she also did not want the patient to come to the hospital but did not know what else to do given the patient was clearly uncomfortable. The patient did receive morphine from her hospice kit. On evaluation the patient is in severe respiratory distress with labored breathing, rhonchi and rales of bilateral lung collier. O2 saturation was in the mid 60s. This did improve with 100% oxygen via nonrebreather. Given the patient's work of breathing in the context of her focus on comfort we did offer the option to try BiPAP for comfort. Patient was aware to let us know if she felt this was not providing comfort in which case we would return to an oxime mask for oxygen delivery. Patient in addition to the son and daughter at the bedside confirmed that the focus is to keep her comfortable and agree that blood work and imaging could be deferred. Glycopyrrolate was ordered as needed for secretions. Appreciate case management assistance/consultation who is reaching out to the [facility] hosp[facility], to see if arrangements can be coordinated so the patient may continue to remain at home as was her wish. Fortunately, the patient hospice agency is unable to provide home nursing care until Sunday. Thus, given the patient's decline the patient and her daughter agree with plan for admission for further management until she can return home under hospice care. Patient did stabilize with BiPAP and treatment with glycopyrrolate and was breathing comfortably subsequently. Case was discussed with Judith Eller and Judith Grimaldo hospital[facility], who will evaluate the patient for admission. Further management per admitting team. Triage Nursing notes reviewed and agree them. Prior/external medical records reviewed Vital Signs: reviewed Differential diagnosis: Reactive airway disease, pneumonia, pneumothorax, COPD, CHF, infections, cardiac ischemia, pulmonary embolism, musculoskeletal, gastrointestinal, as well as other pathologies. ER treatment provided: See below. 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 The patient was disappointed that she referred to the hospital as her intent was to remain at home. In fact she was seen in this emergency department on 03/22 and had "wanted to live out her days at home". The patient's daughter did arrive to the bedside and explained that she also did not want the patient to come to the hospital but did not know what else to do given the patient was clearly uncomfortable. The patient did receive morphine from her hospice kit. ROS: See above HPI for pertinent positives & negatives. A total of 10 systems reviewed and were otherwise negative. VITALS:See Below PHYSICAL EXAMINATION: GENERAL: Awake, alert, ill-appearing, severe respiratory distress HENT: Normocephalic, atraumatic. Oropharynx with dry mucous membranes and otherwise unremarkable. EYES: Normal conjunctiva. Sclera non-icteric. NECK: Supple. No nuchal rigidity. FROM. No JVD. RESPIRATORY: Labored breathing, rhonchi and rales of bilateral lung collier. CARDIAC: Tachycardic rate, normal rhythm. Extremities warm and well perfused. Pulses equal. ABDOMEN: Soft, non-distended. No tenderness to palpation. No rebound or guarding. No masses. MUSCULOSKELETAL: Chest examination reveals no tenderness. The back is symmetrical on inspection without obvious abnormality. There is no CVA tenderness to palpation. No joint edema. LOWER EXTREMITIES: Calves are equal size bilaterally and non-tender. No edema. No discoloration. NEURO: No focal sensory or motor deficits noted. SKIN: No rash or jaundice noted. ED COURSE: Critical Care: I have personally spent greater than 35 minutes of critical care time in the direct management of this patient. This includes bedside care, interpretation of diagnostic studies, and testing, discussion with consultants, patient, and family members, and other required patient management activities. This 35 minutes is in excess of all separately billable procedures. 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 related osteoporosis Aortic stenosis Mild aortic stenosis per 12/29/21 echo nonrheumatic Pneumonia Small cell neuroendocrine carcinoma of lung Abnormal chest CT Elevated brain natriuretic peptide (BNP) level (Acute) Shortness of breath (Acute) Acute hypoxic respiratory failure (Acute) Chronic hypoxemic respiratory failure 2L Home O2 Stenosis of left internal carotid artery Flexor tenosynovitis of finger (Acute) Wound infection (Acute) Failure of outpatient treatment (Acute) Anemia (Acute) Cellulitis of finger of left hand Tenosynovitis of finger Left-sided weakness (Acute) Anemia (Acute) Asymptomatic carotid artery stenosis Encounter for pre-operative examination S/P carotid endarterectomy Encounter for pre-operative examination Encounter for pre-operative examination COPD (chronic obstructive pulmonary disease) Stable History of left hip replacement H/O carotid endarterectomy Right History of hysterectomy ISELA (obstructive sleep apnea) Not currently using CPAP due to recall GERD (gastroesophageal reflux disease) TIA (transient ischemic attack) 10 years ago, 03/11/21 > follows with [facility] Prediabetes Depression Non-Hodgkin lymphoma Hyperlipidemia Hypertension Chronic diastolic heart failure Nocturnal hypoxemia Medical History 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 Nocturnal hypoxemia History of COVID-19 2+ years ago > no further issues Chronic anemia chronic, baseline hgb 10-11 range per chart review Carotid artery stenosis s/p right (5+ years ago)/left (2020) carotid endarterectomy Thyroid nodule Under surveillance Myocardial Infarction Several years ago Lymphoma Surgical History History of left-sided carotid endarterectomy History of esophagogastroduodenoscopy (EGD) History of colonoscopy Family History Other No family history of adverse response to anesthesia Stroke Social History Smoking Status: Former smoker Tobacco Type: Cigarettes Second Hand Exposure: No; Do You Dip or Chew Tobacco: No; Hx Alcohol Use: Yes Alcohol type: wine Hx Substance Use: No Preferred Language: Luxembourgish Communication Ability: Effective Marine Operations 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 Required: No Beliefs That Will Affect Care: None marital status: Unknown Current Living Situation: Alone Current Living Situation Comment: [place] current occupational status: retired Other Information That Helps Us Care for You: No Feels Safe at Home: Yes Safety Concerns: Feels Safe At This Time Assistive Devices: Denture - Upper, Denture - Lower, Glasses and Oxygen - Continuous Allergies Allergies Allergy/AdvReac Type Severity Reaction Status Date / Time adhesive Allergy Intermediate HIVES Verified 12/07/23 13:52 Home Meds Home Medications Medication Instructions Recorded Confirmed albuterol sulfate 90 mcg/actuation 2 puff inhalation UD PRN Shortness 09/18/19 04/19/24 aerosol inhaler Of Breath Or Wheezing aspirin 81 mg tablet,delayed 81 mg PO QAM 08/12/23 04/19/24 release benzonatate 100 mg capsule 100 mg PO UD PRN Cough 08/12/23 04/19/24 conjugated estrogens 0.625 mg/gram 500 mg vaginal UD PRN dryness 08/12/23 04/19/24 vaginal cream (Premarin) fluticasone furoate 100 1 inh inhalation UD PRN Breathing 08/12/23 04/19/24 mcg/actuation blister powder for Problems inhalation (Arnuity Ellipta) ipratropium 0.5 mg-albuterol 3 mg 3 ml inhalation Q6H PRN Shortness 08/12/23 04/19/24 (2.5 mg base)/3 mL nebulization Of Breath Or Wheezing soln loratadine 10 mg tablet (Claritin) 10 mg PO UD 08/12/23 04/19/24 umeclidinium 62.5 mcg-vilanterol 1 inh inhalation DAILY PRN 08/12/23 04/19/24 25 mcg/actuation powdr for Breathing Problems inhalation (Anoro Ellipta) acetaminophen 325 mg tablet (Pain 650 mg PO HS PRN Pain 10/29/23 04/19/24 Reliever (acetaminophen)) allopurinol 100 mg tablet 100 mg PO QAM 10/29/23 04/19/24 docusate sodium 100 mg capsule 200 mg PO DAILY@1200 PRN 10/29/23 04/19/24 Constipation famotidine 20 mg tablet 20 mg PO DAILY 10/29/23 04/19/24 ferrous sulfate 325 mg (65 mg 325 mg PO DAILY 10/29/23 04/19/24 iron) tablet (FeroSul) furosemide 40 mg tablet 40 mg PO DAILY 10/29/23 04/19/24 gabapentin 300 mg capsule 900 mg PO HS 10/29/23 04/19/24 losartan 50 mg tablet 25 mg PO QAM 10/29/23 04/19/24 montelukast 10 mg tablet 10 mg PO DAILY 10/29/23 04/19/24 omega 0-iwx-dap-fish oil 1,200 mg 1 cap PO BID 10/29/23 04/19/24 (144 mg-216 mg) capsule (Fish Oil) pantoprazole 40 mg tablet,delayed 40 mg PO DAILY 10/29/23 04/19/24 release trazodone 50 mg tablet 25 mg PO HS Insomnia 10/29/23 04/19/24 glnognf-bxusfsfod-kfri 333 mg-133 1 tab PO .NOON 12/07/23 04/19/24 mg-8.3 mg tablet cranberry extract 500 mg capsule 500 mg PO BID 12/07/23 04/19/24 (Cranberry Concentrate) guaifenesin 100 mg/5 mL oral liquid 200 mg PO UD 12/07/23 04/19/24 ehpvaddy-hjhbpni-jxtd-lutein tablet 1 tab PO DAILY 12/07/23 04/19/24 prochlorperazine maleate 10 mg 10 mg PO Q6H PRN Nausea And 12/07/23 04/19/24 tablet Vomiting ramelteon 8 mg tablet 8 mg PO HS 12/07/23 04/19/24 atorvastatin 40 mg tablet 40 mg PO QAM 04/19/24 04/19/24 formoterol fumarate 20 mcg/2 mL 20 mcg NEB QAM 04/19/24 04/19/24 solution for nebulization (Perforomist) ondansetron HCl 8 mg tablet 8 mg PO BID 04/19/24 04/19/24 prednisone 10 mg tablet 10 mg PO UD 04/19/24 04/19/24 Previous Rx's Medication Instructions Recorded budesonide 0.5 mg/2 mL suspension 0.5 mg (2 mL) NEB BIDR #60 mL 10/30/23 for nebulization Results & Data (ED) Vital Signs Vital Signs - 24 hr 04/19/24 11:28 04/19/24 11:32 04/19/24 11:36 Temperature 36.2 C L Temperature Source Axillary Pulse Rate 128 H Pulse Rate [Apical] Respiratory Rate 19 Respiratory Effort / Characteristics Labored Respiratory Pattern Blood Pressure 195/88 H Blood Pressure [Left Arm] Blood Pressure Mean 123 Blood Pressure Mean [Left Arm] Pulse Oximetry 94 66 L Oxygen Delivery Method Room Air Room Air Non-rebreather Oxygen Flow Rate 0 Fraction of Inspired Oxygen Sepsis Recent Fever Within 48 Hours No Sepsis New/Unexplained Change in Mental Status N/A Sepsis Action Taken by Nursing No Action Required Oxygen Flow Rate - Titration 15 Pulse Oximetry Post Tiitration 95 04/19/24 11:45 04/19/24 12:15 04/19/24 12:49 Temperature Temperature Source Pulse Rate 126 H 111 H Pulse Rate [Apical] 115 H Respiratory Rate 32 H 29 H Respiratory Effort / Characteristics Spontaneous Respiratory Pattern Tachypnea Blood Pressure Blood Pressure [Left Arm] 146/87 H Blood Pressure Mean Blood Pressure Mean [Left Arm] 106 Pulse Oximetry 96 96 Oxygen Delivery Method BiPAP Oxygen Flow Rate Fraction of Inspired Oxygen 70 Sepsis Recent Fever Within 48 Hours Sepsis New/Unexplained Change in Mental Status Sepsis Action Taken by Nursing Oxygen Flow Rate - Titration Pulse Oximetry Post Tiitration 04/19/24 15:24 Temperature Temperature Source Pulse Rate 94 H Pulse Rate [Apical] Respiratory Rate 25 H Respiratory Effort / Characteristics Spontaneous Respiratory Pattern Blood Pressure Blood Pressure [Left Arm] Blood Pressure Mean Blood Pressure Mean [Left Arm] Pulse Oximetry 97 Oxygen Delivery Method Oxygen Flow Rate Fraction of Inspired Oxygen 70 Sepsis Recent Fever Within 48 Hours Sepsis New/Unexplained Change in Mental Status Sepsis Action Taken by Nursing Oxygen Flow Rate - Titration Pulse Oximetry Post Tiitration Administered Medications Glycopyrrolate (Glycopyrrolate 0.2 Mg/Ml Vial) 0.2 mg IV Q4H PRN PRN Reason: Secretions or Pulm Congestion Stop: 05/19/24 11:47 Last Admin: 04/19/24 21:25 Dose: 0.2 mg Documented By: Admin: 04/19/24 12:14 Dose: 0.2 mg Documented By: ML Haloperidol (Haloperidol 1 Mg Tab) 1 mg PO Q4H PRN PRN Reason: Anxiety/Agitation Stop: 05/19/24 18:26 Last Admin: 04/19/24 21:25 Dose: 1 mg Documented By: EGS Morphine Sulfate (Morphine Sulfate 10 Mg/0.5 Ml Udp) 5 mg PO Q3H PRN PRN Reason: Pain or Respiratory Distress Stop: 05/03/24 18:26 Last Admin: 04/19/24 21:20 Dose: 5 mg Documented By: EGS Discontinued Medications Furosemide (Furosemide 40 Mg/4 Ml Vial) 40 mg IV ONE ONE Stop: 04/19/24 16:16 Last Admin: 04/19/24 17:19 Dose: 40 mg Documented By: [facility] Morphine Sulfate (Morphine Sulfate 4 Mg/Ml 1 Ml Carp\\Vial) 3 mg IV NOW STA Stop: 04/19/24 16:16 Last Admin: 04/19/24 19:12 Dose: Not Given Documented By: EGS Discharge Plan Visit Data Chief Complaint: Shortness of Breath/Dyspnea Stated Complaint: SOB, HEMATEMESIS ED Provider: Eb Ramos Discharge Problem: Acute on chronic hypoxic respiratory failure, Hospice care patient, Metastatic disease Patient Disposition: Admitted As Inpatient Discharge Instructions Interventions: ED Discharge Assessment Last Done: 04/19/24 18:00 Discharge Problem: Metastatic disease Qualifiers: Area of secondary neoplastic involvement: unspecified site Qualified Code(s): C79.9 - Secondary malignant neoplasm of unspecified site
--- OUTSIDE RECORDS SUMMARY | 2024-04-19 11:32 | External Medical Summary | Summary of Care ---
Author Name Unknown Organization [facility] Address [address] [place] [place] [address] Phone [phone] Care Team Providers Care Roller Helper Name Role Phone Rhys Humphrey MD Primary Care Provide r Reason for Visit * Reason Onset Date Comments Appointment 12/27/2023 Return in about 3 months (around 03/28/2024). Check-out Comments: 3-6 months Encounter Details Date Type Department Care Team (Late st Contact Info) Description 12/27/2023 Telephone Cardiology [address] [place] [address] Mi Neil PA-C [address] [place] [address] Appointment (Return in about 3 months (vidya... Allergies Active Allergy Reactions Criticality Noted Date Comments Adhesive Tape Other (Please comment),Hives High 09/29/2008 Caused welts Dextromethorphan-Gu aifenesin Neuro complications (Please comment) Medium 12/23/2021 Feels lightheaded/"foggy" documented as of this encounter (statuses as of 03/27/2024) Medications Medication Sig Dispensed Refills Start Date End Date Status FISH OIL 1000 MG PO CAPS Take 1,200 mg by mouth in the morning. Active Multiple Vitamins-Minerals (CENTRUM SILVER 50+WOMEN) TABS Take 1 Tab by mouth daily. Active oxygen GASIndications:ISELA on CPAP 2.5 LPM bled through cpap. 1 Each 9 Active Additional Information Patient taking differently: 2.5 LPM, Reported on 12/27/2023 DIURETIC TITRATION PLAN If no improvement on day 3, contact heart failure managing provider. 1 Each 0 Active Iron 325 (65 Fe) MG Oral Tablet Take 1 Tablet by mouth daily. Active Cranberry 500 MG Oral Capsule Take 1 Capsule by mouth in the morning and 1 Capsule before bedtime. 50 Cap 1 Active Calcium-Magnesium- Zinc 333-133-5 MG Oral Tablet Take 1 Tablet by mouth daily. Active Aspirin 81 MG Oral Tablet Chewable Take 1 Tablet by mouth in the morning. Active Fluticasone Propionate 50 MCG/ACT Nasal SuspensionIndicati ons:Dysfunction of both eustachian tubes Administer 2 Sprays into each nostril in the morning. 16 g 3 3 Active Docusate Sodium 100 MG Oral Capsule (Colace) Take 2 Capsules by mouth 2 times a day as needed. Active Meclizine HCl 12.5 MG Oral Tablet (Antivert)Indicati ons:Vertigo Take 1 Tablet by mouth 3 times a day as needed for Dizziness. 30 Tablet 3 Active Furosemide 40 MG Oral Tablet (Lasix)Indications :Chronic diastolic congestive heart failure (HCC) One tablet daily with an extra tablet as needed for swelling 120 Tablet 3 3 Active Acetaminophen 325 MG Oral Tablet (Tylenol) Take 1 Tablet by mouth every 6 hours as needed. Active Clobetasol Propionate 0.05 % External Cream (Temovate)Indicati ons:Lichen sclerosus Apply to area twice daily x 1 month , then nightly x 2 months, then twice weekly x 3 months 60 g 1 3 Active Benzonatate 100 MG Oral Capsule Take 1 Capsule by mouth 3 times a day as needed for Cough. 30 Capsule 3 Active Atorvastatin Calcium 40 MG Oral [...] or Wheezing. 18 g 5 4 Active Additional Information Patient not taking.Reported on 03/18/2024 Ipratropium-Albute rol 0.5-2.5 (3) MG/3ML Inhalation Solution (Duoneb)Indication s:COPD, group D, by GOLD 2017 classification (FORMERLY [facility]) Inhale 3 mL via nebulizer every 6 hours as needed for Shortness of Breath or Wheezing. 360 mL 3 4 Active Nebulizer CompressorIndicati ons:COPD, moderate ([facility]LY [facility]) Inhale via nebulizer. Use as directed. 1 Each 1 4 Active Pantoprazole Sodium 40 MG Oral Tablet Delayed Release (Protonix) TAKE ONE TABLET BY MOUTH EVERY DAY 90 Tablet 3 4 Active Diclofenac Sodium 1 % External Gel (Voltaren)Indicati ons:pain Apply 2 g topically to affected area daily as needed for Pain. Apply to L shoulder 350 g 2 3 024 Discontinued(Me dication List Clean Up) Calmoseptine 0.44-20.6 % External Ointment (Menthol-Zinc Oxide) Apply topically to affected area as needed. Apply to vaginal area 024 Discontinued(Me dication List Clean Up) Famotidine 20 MG Oral Tablet (Pepcid) Take 1 Tablet by mouth 2 times a day as needed for Heartburn. 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 90 Tablet 1 4 024 Discontinued(Me dication/Dose Changed) Ramelteon 8 MG Oral Tablet (Rozerem)Indicatio ns:Insomnia, unspecified type TAKE ONE TABLET BY MOUTH AT BEDTIME 30 Tablet 5 4 024 Discontinued(Me dication List Clean Up) Budesonide 0.5 MG/2ML Inhalation Suspension (Pulmicort) Inhale 0.5 mg via nebulizer in the morning and 0.5 mg before bedtime. 60 mL 2 4 024 Discontinued(Re fill) Formoterol Fumarate 20 MCG/2ML Inhalation Nebulization Solution Inhale 1 Inhalation by mouth in the morning. 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),Metastasis to mediastinal lymph node (HCC),Chemotherapy -induced neutropenia (HCC) TAKE ONE TABLET BY MOUTH IN THE MORNING 30 Tablet 1 4 024 Discontinued documented as of this encounter (statuses as of 03/27/2024) Active Problems Problem Noted Date Diagnosed Date [...] as of this encounter (statuses as of 03/27/2024) Resolved Problems Problem Noted Date Diagnosed Date [...] as of this encounter (statuses as of 03/27/2024) Immunizations Name Administration Dates Next Due COVID-19 mRNA, LNP-s, No Pre serve, 2-Dose Series ([employer]) 08/01/2021,07/11/2021,11/14/2020,10/24 COVID-19, MRNA-LNP, 23-24, P F, 30 MCG/0.3 mL, 12 YRS AND ABOVE, IM ([employer]) 07/23/2023 Covid-19, Mrna, Lnp-s, Pf, B ivalent, 30 Mcg, IM, 12 yrs and above ([employer]) 07/21/2022 Pneumococcal Conjugate Vacc, 13 Valent (Prevnar) 03/16/2015 Pneumococcal Conjugate Vacci ne, 20-valent ([id number]) 07/21/2022 Pneumococcal Polysaccharide PPV23 (Pneumovax) 03/05/2019,07/18/2007 Season [...] Tetanus/Diptheria (ADULT) 10/01/2001 TD, Preservative Free 09/17/2019 TDAP, Age 7 and older, IM (Adacel) 08/10/2011 Varicella Zoster Vaccine (Adult) 07/22/2012 Zoster [...] the money to buy more. Never true 03/18/20 24 Within the past 12 months, t he food you bought just didn't last and you didn't have money to get more. Never true 03/18/2024 Childcare Answer Date Recorded Do you feel overwhelmed with taking care of a child, family member or friend? No 03/18/2024 Does your family need help f inding childcare? (Household - for ages 0-17 years) Not on file 03/18/2024 Clothing Answer Date Recorded Have you been unable to get clothing when it was really needed? No 03/18/2024 Is your family able to get c lothes or diapers when needed? (Household - for ages 0-17 years) Not on file 03/18/2024 Personal Safety Answer Date Recorded Do you feel unsafe or have concerns for your saf ety? No 03/18/2024 Do you have concerns for you r family's safety? (Household - for ages 0-17 years) Not on file 03/18/2024 Utilities Answer Date Recorded Do you have trouble paying y our heating, water, or electric bill? No 03/18/2024 Is your family able to pay t he heat, water, or electric bill? (Household - for ages 0-17 years) Not on file 03/18/2024 Does your family have access to good internet? (Household - for ages 0-17 years) Not on file 03/18/2024 Employment Status Answer Date Recorded Are you unemployed or without regular income? No 03/18/2024 Does the household have a re gular source of income? (Household - for ages 0-17 years) Not on file 03/18/2024 Social Connections Answer Date Recorded How often do you feel lonely or isolated from th ose around you? Never 03/18/2024 Financial Resource Strain Answer Date R ecorded Do you have any trouble payi ng for your medications, or do you think you might in the future? No 03/18/2024 Does your family have troubl e paying for medicine? (Household - for ages 0-17 years) Not on file 03/18/2024 Transportation Needs Answer Date Record ed Do you have trouble getting a ride to medical visits or work? (Adult - for ages 18 years and over) Not on file 03/18/2024 Does your family have a hard time getting a ride to doctors visits? (Household - for ages 0-17 years) Not on file 03/18/2024 Has lack of transportation k ept you from medical appointments, meetings, work, or from getting things needed for daily living? Check all that apply. No 03/18/2024 Do you (or your family) have trouble finding or paying for a ride (transportation)? (Household - for ages 0-17 years) Not on file 03/18/2024 Housing Stability Answer Date Recorded Do you currently live in a s helter or have no steady place to sleep at night? No 03/18/2024 Do you think you are at risk of becoming homeless? (Adult - for ages 18 years and over) Not on file 03/18/2024 Does your family worry about paying for your home or becoming homeless? (Household - for ages 0-17 years) Not on file 0 03/18/2024 Are you homeless or worried that you might be in the future? No 03/18/2024 Are you (or your family) genesis eless or worried that you might be in the future? (Household - for ages 0-17 years) Not on file Food Insecurity Answer Date Recorded Do you need food for this week? No 03/18/2024 Are you able to get enough f ood for your family? (Household - for ages 0-17 years) Not on file 03/18/2024 Does your family need food t his week? (Household - for ages 0-17 years) Not on file 03/18/2024 Do you always have enough fo od for your family? (Household - for ages 0-17 years) Not on file 03/18/2024 Sex and Gender Information Value Date Recorded Sex Assigned at Female 03/16/2023 10:03 AM EDT Gender Identity Female 03/16/2023 10:03 AM EDT Sexual Orientation Straight 03/16/2023 10 :03 AM EDT Job Start Date Occupation Industry Not on file Not on file Not on file documented as of this encounter Miscellaneous Notes * Telephone Encounter - Kevin Hernandez OSA - 12/27/2023 11:50 AM EDT Nothing avail to schedule pt. I added pt to Recall List. documented in this encounter Plan of Treatment Upcoming Encounters Date Type Department Care Team (Late st Contact Info) Description 05/29/2024 3:00 PM EDT Office [facility] [address] [facility] [phone] Gris Diaz CRNP [address] [facility] [place] [address] 06/12/2024 8:00 AM EDT Office Visit Cardiology [address] [place] [address] Mi Neil PA-C [address] [place] [address] 08/12/2024 11:00 AM EST Office Visit Family Medicine [address] [place] [phone] Rhys Humphrey MD [address] [place] [address] [place] [address] 03/20/2025 10:00 AM EDT Nurse Only Ancillary [address] [place] [address] [place], Nurse Annual [address] [place] [address] Scheduled Procedures Name Priority Associated Diagnoses Date/Ti me ESOPHAGOGASTRODUODENOSCOPY ( EGD), FLEXIBLE, TRANSORAL, DIAGNOSTIC Recall Other iron deficiency anemia Health Maintenance Due Date Last Done Comments Alpha-1 Antitrypsin 1958 DXA Scan 06/11/2020 06/11/2018, 03/02, 02/16/2012, Additional history exists *BISPHONATE OR OTHER ACCEPTABLE MEDICATION NEEDED FOR OSTEOPOROSIS (REFER TO SMARTSET #1146) 01/23/2021 COVID-19 Vaccine ( season) 2023 07/23/2023, 07/21/2022, 08/01/2021, Additional history exists O2 ASSESSMENT COMPLETED IN PAST YEAR FOR COPD 08/10/2024 08/10/2023 Depression Monitoring 03/18/2025 03/18/2024 Albumin/Creatinine Ratio 04/28/2025 04/28/2022 DTaP,Tdap,and Td Vaccines (3 - Td or Tdap) 09/17/2029 09/17/2019, 08/10/2011, 10/01/2001 Zoster Vaccines Completed 04/25/2020, 08/31, 07/22/2012 VITAMIN D LEVEL ONCE IN A LIFETIME-USE SMARTSET# 81816 Completed 06/29/2020, 03/16/2015 Pneumococcal Vaccine: 65+ Years [...] on File Type Date Recorded Patient Technical Artist Expl anation POLST 10/15/2019 3:17 PM POLST POLST 03/05/2019 POLST FORM Advance Directives and Living Will 01/27/2013 LIVING WILL Advance Directives and Living Will 01/27/2013 LIVING WILL Power of Euclid Operator 01/27/2013 POWER OF A TTORNEY Power of Euclid Operator 01/27/2013 POWER OF A TTORNEY Healthcare Agents on File Name Relationship Healthcare Agent Relationship Communication Cydney Benito Other - (no specific identity) Second Alternate Health Care Agent Anyi More Adult Child Health Care Roberth r of Euclid Operator Care Teams Roller Helper Relationship Specialty Start Date End Date Rhys Humphrey MD [address] [place] [address] [place] [address] PCP - General Family Medicine 06/09/21 documented as of this encounter
--- OUTSIDE RECORDS SUMMARY | 2024-04-19 11:32 | External Medical Summary | Summary of Care ---
Author Name Unknown Organization [facility] Address [address] [place] [address] Phone [phone] Care Team Providers Care Swimming Coach Name Role Phone Rhys Humphrey MD Primary Care Provide r Encounter Details Date Type Department Care Team (Late st Contact Info) Description 03/24/2024 Population Health External Data Unspecified Department Allergies Active Allergy Reactions Criticality Noted Date Comments Adhesive Tape Other (Please comment),Hives High 09/29/2008 Caused welts Dextromethorphan-Gu aifenesin Neuro complications (Please comment) Medium 12/23/2021 Feels lightheaded/"foggy" documented as of this encounter (statuses as of 03/25/2024) Medications Medication Sig Dispensed Refills Start Date End Date Status FISH OIL 1000 MG PO CAPS Take 1,200 mg by mouth in the morning. Active Multiple Vitamins-Minerals (CENTRUM SILVER 50+WOMEN) TABS Take 1 Tab by mouth daily. Active oxygen GASIndications:ISELA on CPAP 2.5 LPM bled through cpap. 1 Each 08/22/2019 Active Additional Information Patient taking differently: 2.5 LPM, Reported on 12/27/2023 DIURETIC TITRATION PLAN If no improvement on day 3, contact heart failure managing provider. 1 Each 11/11/2019 Active Iron 325 (65 Fe) MG Oral Tablet Take 1 Tablet by mouth daily. Active Cranberry 500 MG Oral Capsule Take 1 Capsule by mouth in the morning and 1 Capsule before bedtime. 50 Cap 01/18/2021 Active Eniifys-Jxlybntyv-Hj nc 333-133-5 MG Oral Tablet Take 1 Tablet by mouth daily. Active Aspirin 81 MG Oral Tablet Chewable Take 1 Tablet by mouth in the morning. Active Fluticasone Propionate 50 MCG/ACT Nasal SuspensionIndication [...] day as needed for Dizziness. 30 Tablet 03/16/2023 Active Furosemide 40 MG Oral Tablet (Lasix)Indications:C hronic diastolic congestive heart failure (HCC) One tablet daily with an extra tablet as needed for swelling 120 Tablet 3 06/11/2023 Active Acetaminophen 325 MG Oral Tablet (Tylenol) [...] day as needed for Cough. 30 Capsule 08/09/2023 Active Atorvastatin Calcium 40 MG Oral Tablet (Lipitor)Indications :Dyslipidemia, goal LDL below 100 TAKE ONE TABLET BY MOUTH EVERY DAY 90 Tablet 2 10/03/2023 Active Albuterol Sulfate HFA 108 (90 Base) MCG/ACT Inhalation Aerosol SolutionIndications: COPD, moderate (HCC) Inhale 2 Puffs by mouth every 4 hours as needed for Cough, Shortness of Breath or Wheezing. 18 g 5 11/09/2023 Active Additional Information Patient not taking.Reported on 03/18/2024 Ipratropium-Albutero l 0.5-2.5 (3) MG/3ML Inhalation Solution (Duoneb)Indications: COPD, group D, by GOLD 2017 classification ([facility]) Inhale 3 mL via nebulizer every 6 hours as needed for Shortness of Breath or Wheezing. 360 mL 3 11/10/2023 Active Nebulizer CompressorIndication s:COPD, 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 Use as directed. 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),Metastasis to mediastinal lymph node (HCC) Take 1 Tablet by mouth every 8 hours as needed for Nausea. 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 60 mL 2 03/18/2024 Active Formoterol Fumarate 20 MCG/2ML Inhalation Nebulization SolutionIndications: COPD, group D, by GOLD 2017 classification ([facility]) Inhale 1 Inhalation by mouth in the morning. 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 60 Tablet 2 03/18/2024 Active Losartan Potassium 25 MG Oral Tablet (Cozaar) Take 1 Tablet by mouth in the morning. 90 Tablet 3 03/18/2024 Active documented as of this encounter (statuses as of 03/25/2024) Active Problems Problem Noted Date Diagnosed Date [...] as of this encounter (statuses as of 03/25/2024) Resolved Problems Problem Noted Date Diagnosed Date [...] as of this encounter (statuses as of 03/25/2024) Immunizations Name Administration Dates Next Due COVID-19 mRNA, LNP-s, No Pre serve, 2-Dose Series ([employer]) 08/01/2021,07/11/2021,11/14/2020,10/24 COVID-19, MRNA-LNP, 23-24, P F, 30 MCG/0.3 mL, 12 YRS AND ABOVE, IM ([employer]) 07/23/2023 Covid-19, Mrna, Lnp-s, Pf, B ivalent, 30 Mcg, IM, 12 yrs and above ([employer]) 07/21/2022 Pneumococcal Conjugate Vacc, 13 Valent (Prevnar) 03/16/2015 Pneumococcal Conjugate Vacci ne, 20-valent ([id number]) 07/21/2022 Pneumococcal Polysaccharide PPV23 (Pneumovax) 03/05/2019,07/18/2007 Season [...] 05/29/2024 3:00 PM EDT Office Visit H[facility]ology[facility] [address] [place] [phone] Gris Diaz CRNP [address] [place] [address] 06/12/2024 8:00 AM EDT Office Visit Cardiology [address] [place] [address] Mi Neil PA-C [address] [place] [address] 08/12/2024 11:00 AM EST Office Visit Family Medicine [address] [place] [phone] Rhys Humphrey MD [address] [place] [address] [place] [address] 03/20/2025 10:00 AM EDT Nurse Only Ancillary [address] [place] [address] [place], Nurse Annual Wellness [address] [place] [address] [place] [address] Scheduled Procedures Name Priority Associated Diagnoses Date/Ti [...] D LEVEL ONCE IN A LIFETIME-USE SMARTSET# [id number] Completed 06/29/2020, 03/16/2015 Pneumococcal Vaccine: 65+ Years [...] Documents on File Type Date Recorded Patient Idea Man Expl anation POLST 10/15/2019 3:17 PM POLST POLST 03/05/2019 POLST FORM Advance Directives and Living Will 01/27/2013 LIVING WILL Advance Directives and Living Will 01/27/2013 LIVING WILL Power of Hand Worker 01/27/2013 POWER OF A TTORNEY Power of Hand Worker 01/27/2013 POWER OF A TTORNEY Healthcare Agents on File Name Relationship Healthcare Agent Relationship Communication Cydney Benito Other - (no specific identity) Second Alternate Health Care Agent Anyi More Adult Child Health Care Roberth r of Hand Worker Care Teams Swimming Coach Relationship Specialty Start Date End Date Rhys Humphrey MD [address] [place] [address] [place] [address] PCP - General Family Medicine 06/09/21 documented as of this encounter
--- OUTSIDE RECORDS SUMMARY | 2024-04-19 11:32 | External Medical Summary | Summary of Care ---
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 50 Cap 01/18/2021 Active Ocpgzzi-Nwyufuwrq-Lh nc 333-133-5 MG Oral Tablet Take 1 Tablet by mouth daily. Active Aspirin 81 MG Oral Tablet Chewable Take 1 Tablet by mouth in the morning. Active Fluticasone Propionate 50 MCG/ACT Nasal SuspensionIndication s:Dysfunction of both eustachian tubes Administer 2 Sprays into each nostril in the morning. 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) TAKE ONE TABLET BY MOUTH AT BEDTIME 30 Tablet 5 02/27/2024 Active Gabapentin 300 MG Oral Capsule (Neurontin)Indicatio ns:Peripheral polyneuropathy,Pain in both lower extremities TAKE THREE CAPSULES AT BEDTIME 90 Capsule 02/27/2024 Active Allopurinol 100 MG Oral Tablet (Zyloprim)Indication s: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 60 Tablet 2 03/18/2024 Active Losartan Potassium 25 MG Oral Tablet (Cozaar) Take 1 Tablet by mouth in the morning. 90 Tablet 3 03/18/2024 Active Famotidine 20 MG Oral Tablet (Pepcid) Take 1 Tablet by mouth daily as needed for Heartburn. 30 Tablet 1 03/25/2024 Active predniSONE 10 MG Oral Tablet (Deltasone)Indicatio ns:COPD, group D, by GOLD 2017 classification ([facility]) Take 5 tabs for 2 days, 4 tabs for 2 days, 3 tabs for 2 days, 2 tabs for 2 days 1 tab for 2 days 30 Tablet 04/08/2024 Active Budesonide 0.5 MG/2ML Inhalation Suspension (Pulmicort)Indicatio ns:COPD, group D, by GOLD 2017 classification ([facility]) Inhale 0.5 mg via nebulizer in the morning and 0.5 mg before bedtime. 60 mL 2 04/15/2024 Active Formoterol Fumarate 20 MCG/2ML Inhalation Nebulization SolutionIndications: COPD, group D, by GOLD 2017 classification ([facility]) Inhale 1 Inhalation by mouth in the morning. 100 mL 1 04/15/2024 Active documented as of this encounter (statuses as of 04/17/2024) Active Problems Problem Noted Date Diagnosed Date [...] as of this encounter (statuses as of 04/17/2024) Resolved Problems Problem Noted Date Diagnosed Date [...] as of this encounter (statuses as of 04/17/2024) Immunizations Name Administration Dates Next Due COVID-19 mRNA, LNP-s, No Pre serve, 2-Dose Series ([employer]) 08/01/2021,07/11/2021,11/14/2020,10/24 COVID-19, MRNA-LNP, 23-24, P F, 30 MCG/0.3 mL, 12 YRS AND ABOVE, IM ([employer]) 07/23/2023 Covid-19, Mrna, Lnp-s, Pf, B ivalent, 30 Mcg, IM, 12 yrs and above (Pfizer) 07/21/2022 Pneumococcal Conjugate Vacc, 13 Valent (Prevnar) 03/16/2015 Pneumococcal Conjugate Vacci ne, 20-valent ([id number]) 07/21/2022 Pneumococcal Polysaccharide PPV23 (Pneumovax) 03/05/2019,07/18/2007 Season [...] Telephone Encounter - Agatha Lowe RN - 04/17/2024 8:13 AM EDTRefused Prescriptions: Disp Refills Allopurinol 100 MG Oral Tablet (Zyloprim) 30 Tab*1 Sig: TAKE ONE TABLET BY MOUTH IN THE MORNINGRefused By: JOSE LOPES for Refusal: Course of treatment c omplete * Telephone Encounter - Agatha Lowe RN - 04/17/2024 8:12 AM EDT MyG sent. * Telephone Encounter - Jose Lopes MD - 04/16/2024 3:54 PM EDT There is no need for allopurinol in her case at this time. * Telephone Encounter - Pa Gonzales RN - 04/16/2024 3:29 PM EDTPending Prescriptions: Disp Refills Allopurinol 100 MG Oral Tablet [Pharmacy M*30 Tab*1 Sig: TAKE ONE TABLET BY MOUTH IN THE MORNING * Telephone Encounter - Pa Gonzales RN - 04/16/2024 3:27 PM EDT Pt currently under hospice care. documented in this encounter Plan of Treatment Upcoming Encounters Date Type Department Care Team (Late st Contact Info) Description 05/29/2024 3:00 PM EDT Office Visit Hematology/Oncology [facility] [place] [address] [facility] [place] [phone] Gris Diaz CRNP [address] [place] [address] 06/12/2024 8:00 AM EDT Office Visit Cardiology [address] [place] [address] Mi Neil PA-C [address] [place] [address] 07/07/2024 10:00 AM EDT [facility] Mariella Kang [address] [place] [address] Kang, Sleep Med Home Study [facility] [address] [place] [address] 08/12/2024 11:00 AM EST Office Visit Family Medicine [address] [place] [phone] Rhys Humphrey MD [address] [place] [address] [place] [address] 03/20/2025 10:00 AM EDT Nurse Only Ancillary [address] [place] [address] [place], Nurse Annual Wellness [address] [place] [address] [place] [id number] Scheduled Procedures Name Priority Associated Diagnoses Date/Ti me ESOPHAGOGASTRODUODENOSCOPY ( EGD), FLEXIBLE, TRANSORAL, DIAGNOSTIC Recall Other iron deficiency anemia Health Maintenance Due Date Last Done Comments Alpha-1 Antitrypsin 1958 DXA Scan 06/11/2020 06/11/2018, 03/02, 02/16/2012, Additional history exists *BISPHONATE OR OTHER ACCEPTABLE MEDICATION NEEDED FOR OSTEOPOROSIS (REFER TO SMARTSET #1146) 01/23/2021 COVID-19 Vaccine ( season) 2023 07/23/2023, 07/21/2022, 08/01/2021, Additional history exists *CXR OR CT FOR COPD EVER 04/13/2024 Influenza Vaccine (FLU shot) (#1) 2024 06/07/2023, 06/16/2022, 06/08/2021, Additional history exists O2 ASSESSMENT COMPLETED IN PAST YEAR FOR COPD 08/10/2024 08/10/2023 Depression Monitoring 03/18/2025 03/18/2024 Albumin/Creatinine Ratio 04/28/2025 04/28/2022 DTaP,Tdap,and Td Vaccines (3 - Td or Tdap) 09/17/2029 09/17/2019, 08/10/2011, 10/01/2001 Zoster Vaccines Completed 04/25/2020, 08/31, 07/22/2012 VITAMIN D LEVEL ONCE IN A LIFETIME-USE SMARTSET# [id number] Completed 06/29/2020, 03/16/2015 Pneumococcal Vaccine: 65+ Years Completed 07/21/2022, 03/05/2019, 03/16/2015, Additional history exists HPV (Gardasil) Vaccine Aged Out No lo nger eligible based on patient's age to complete this topic Hepatitis B Vaccine Aged Out No longe r eligible based on patient's age to complete [...] Documents on File Type Date Recorded Patient Plumber Assistant Expl anation POLST 10/15/2019 3:17 PM POLST POLST 03/05/2019 POLST FORM Advance Directives and Living Will 01/27/2013 LIVING WILL Advance Directives and Living Will 01/27/2013 LIVING WILL Power of Cement Worker 01/27/2013 POWER OF A TTORNEY Power of Cement Worker 01/27/2013 POWER OF A TTORNEY Healthcare Agents on File Name Relationship Healthcare Agent Relationship Communication Cydney Benito Other - (no specific identity) Second Alternate Health Care Agent Anyi More Adult Child Health Care Roberth cooper of Cement Worker Care Teams Ice Hockey Coach Relationship Specialty Start Date End Date Rhys Humphrey MD [address] [place] [address] [place] [phone] PCP - General Family Medicine 06/09/21 documented as of this encounter
--- OUTSIDE RECORDS SUMMARY | 2024-04-19 11:32 | External Medical Summary | Summary of Care ---
Author Name Unknown Organization [facility] Address [address] [place] [address] Phone [phone] Care Team Providers Care An/Sqq 89(V)15 Sonar System Journeyman Name Role Phone Rhys Humphrey MD Primary Care Provide r Reason for Visit * Reason Comments Follow Up Here return sleep. O SA. CPAP. CPAP was recalled. Has been 3 years ago and never received it yet per patient. 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 50 Cap 01/18/2021 Active Xadaiqg-Faujeohjc-J inc 333-133-5 MG Oral Tablet Take 1 Tablet by mouth daily. Active Aspirin 81 MG Oral Tablet Chewable Take 1 Tablet by mouth in the morning. Active Fluticasone Propionate 50 MCG/ACT Nasal SuspensionIndicatio [...] 03/16/2023 Active Furosemide 40 MG Oral Tablet (Lasix)Indications: [...] MCG/ACT Inhalation Aerosol SolutionIndications :COPD, moderate ([facility]) Inhale 2 Puffs by [...] Wheezing. 360 mL 3 11/10/2023 Active Nebulizer CompressorIndicatio ns:COPD, moderate ([facility]) Inhale via nebulizer. Use as directed. 1 Each 1 12/07/2023 Active Pantoprazole Sodium 40 MG Oral Tablet Delayed Release (Protonix) TAKE ONE TABLET BY MOUTH EVERY DAY 90 Tablet 3 12/27/2023 Active Ondansetron HCl 8 MG Oral TabletIndications:S mall cell neuroendocrine carcinoma of lung (HCC),Metastasis to mediastinal lymph node (HCC) Take 1 Tablet by mouth every 8 hours as needed for Nausea. 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),Metastasis to mediastinal lymph node (HCC),Chemotherapy- induced neutropenia (HCC) TAKE ONE TABLET IN THE [...] 03/25/2024 Active predniSONE 10 MG Oral Tablet (Deltasone)Indicati ons:COPD, group D, by GOLD 2017 classification ([facility]) Take 5 tabs for 2 days, 4 tabs for 2 days, 3 tabs for 2 days, 2 tabs for 2 days 1 tab for 2 days 30 Tablet 04/08/2024 Active Budesonide 0.5 MG/2ML Inhalation Suspension (Pulmicort)Indicati ons:COPD, group D, by GOLD 2017 classification ([facility]) Inhale 0.5 mg via nebulizer in the morning and 0.5 mg before bedtime. 60 mL 2 03/18/2024 4 Discontinu ed(Refill) Formoterol Fumarate 20 MCG/2ML Inhalation Nebulization SolutionIndications :COPD, group D, by GOLD 2017 classification ([facility]) Inhale 1 Inhalation by mouth in the morning. 100 mL 1 03/18/2024 4 Discontinu ed(Refill) documented as of this encounter (statuses as of 04/15/2024) Active Problems Problem Noted Date Diagnosed Date [...] as of this encounter (statuses as of 04/15/2024) Resolved Problems Problem Noted Date Diagnosed Date [...] as of this encounter (statuses as of 04/15/2024) Immunizations Name Administration Dates Next Due COVID-19 mRNA, LNP-s, No Pre serve, 2-Dose Series (AddShoppers) 08/01/2021,07/11/2021,11/14/2020,10/24 COVID-19, MRNA-LNP, 23-24, P F, 30 MCG/0.3 mL, 12 YRS AND ABOVE, IM (Monkimun-Comirnat) 07/23/2023 Covid-19, Mrna, Lnp-s, Pf, B ivalent, 30 Mcg, IM, 12 yrs and above (Pfizer) 07/21/2022 Pneumococcal Conjugate Vacc, 13 Valent (Prevnar) 03/16/2015 Pneumococcal Conjugate Vacci ne, 20-valent ([id number]) 07/21/2022 Pneumococcal Polysaccharide PPV23 (Pneumovax) 03/05/2019,07/18/2007 Season [...] Sign Reading Time Taken Comments Blood Pressure 126/56 04/15/2024 9:29 AM EDT Pulse 84 04/15/2024 9:29 AM EDT Temperature 36 C (96.8 F) 04/15/2024 9:29 AM EDT Respiratory Rate 16 04/15/2024 9:29 AM EDT Oxygen Saturation 91% 04/15/2024 9:29 AM EDT Inhaled Oxygen Concentration - - Weight 63.5 kg (140 lb) 04/15/2024 9:29 AM EDT Height 152.4 cm (5') 04/15/2024 9:29 AM EDT Body Mass Index 27.34 04/15/2024 9:29 AM EDT documented in this encounter Progress Notes * Mayda Wagner, DO - 04/15/2024 9:39 AM EDT Sleep Medicine Follow-Up HISTORY: Keisha Linares is a 83 year old female for follow up of ISELA. Prior sleep testing and treatment: PSG 10/10/2011: AHI 11.1, SpO2 joesph 82% HST 04/18/2019 (weight around 190 lbs): NARAYAN 16.2, SpO2 joesph 78%, time <89% 216.2 min Nocturnal oximetry 09/11/2019 on CPAP with 2.5 L/min O2: time <88% 1.6 min Replacement device was ordered at 10/2021 appt with Samara DUMAS Last seen in Sleep Medicine 03/03/[address] Blossom Grewal. She had not received the ordered replacement device. Re-ordered replacement CPAP, discussed sleep hygiene. 05/2022: updated baseline sleep testing was required for the replacement CPAP HST was attempted 11/2022, but had insufficient recording. From what I am seeing, years ago she had a REMstar device, but her most recent CPAP is a ResMed AirSense 10 (which was set up in 2017). She states she has seen chips of metal in the tank of her ResMed device. Her DME picked up the CPAP due to this issue, but never returned or replaced it. She did feel like she slept better with the CPAP when she had it. She is using O2 ATC (hx emphysema, lung CA, chronic hypoxemic respiratory failure) through [facility], 4 L/min at rest and overnight, and 5 L/min with exertion. Unsure if snoring. Wakes up choking/gasping once or twice a night. Gets a similar feeling during the day, attributed to lung cancer. She notes that she is on hospice. Sleeping about 3.5 hours a night. Waking up about 3 times a night, often feeling like she is not breathing right. Daytime sleepiness: no Daytime napping: no Drowsy driving: none Morning headaches: no Recent weight change: weight loss is noted since prior sleep apnea testing and treatment (140 lbs today; around 190 lbs at time of last successful HST, and in the 180s when her sleep apnea was last being treated). [place] Sleepiness Scale: 6 [place] Sleepiness Scale Question 04/15/2024 9:29 AM EDT - Filed by Pearl Long LPN What is the chance you will doze off in the following situation? Sitting and reading High chance of dozing Watching TV Slight chance of dozing Sitting inactive in a public place, such as a theater or meeting No chance of dozing As a passenger in a car for an hour without a break Moderate chance of dozing Lying down to rest in the afternoon when circumstances permit No chance of dozing When sitting and talking to someone No chance of dozing When sitting quietly after lunch without alcohol No chance of dozing In a car, while stopped for a few minutes in traffic No chance of dozing Score (range: 0 - 24) 6 CPAP Compliance: Most recent data ends 10/21/21 % total days used: 100% % days used > 4 hours: 93% Average hours per day used: 7h 35m Large leak: occasional AHI: 2.3 /hr Pressure settin cmH2O Equipment: [facility], but she would prefer to use [facility] if we order a new CPAP (she currently hasoxygen through [facility]). Used a AirSense 10. No longer has the CPAP device. 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 HTN, GOAL BELOW 140/90 Circumscribed scleroderma Dyslipidemia, goal LDL below 70 Nonrheumatic aortic valve stenosis Centrilobular emphysema (HCC) ISELA (obstructive sleep apnea) Lichen sclerosus et atrophicus Osteopenia of neck of femur Iron deficiency Persistent insomnia Hx of nonmelanoma skin cancer Chronic diastolic congestive heart failure (HCC) Other specified peripheral vascular diseases (HCC) History of TIA (transient ischemic attack) History of left hip replacement Nocturnal hypoxemia Hypertensive heart disease with chronic diastolic congestive heart failure (HCC) Ground glass opacity present on imaging of lung 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) COPD, group D, by GOLD 2017 classification (HCC) Gastroesophageal reflux disease without esophagitis 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) Chronic insomnia Dysfunction of both eustachian tubes At risk for falls 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) Age-related osteoporosis without current pathological fracture Left carotid stenosis S/P carotid endarterectomy Iron deficiency anemia RLS (restless legs syndrome) Peripheral polyneuropathy Nontoxic multinodular goiter Acute serous otitis media 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 30 Tablet 1 Losartan Potassium 25 MG Oral Tablet (Cozaar) Take 1 Tablet by mouth in the morning. 90 Tablet 3 Prochlorperazine Maleate 10 MG Oral Tablet (Compazine) Take 1 Tablet by mouth every 6 hours as needed for Nausea. 60 Tablet 2 Allopurinol 100 MG Oral Tablet (Zyloprim) TAKE ONE TABLET IN THE MORNING 30 Tablet 1 Gabapentin 300 MG Oral Capsule (Neurontin) TAKE THREE CAPSULES AT BEDTIME 90 Capsule 5 traZODone HCl 50 MG Oral Tablet (Desyrel) TAKE ONE TABLET BY MOUTH AT BEDTIME 30 Tablet 5 Ondansetron HCl 8 MG Oral Tablet Take 1 Tablet by mouth every 8 hours as needed for Nausea. 90 Tablet 3 Pantoprazole Sodium 40 MG Oral Tablet Delayed Release (Protonix) TAKE ONE TABLET BY MOUTH EVERY DAY90 Tablet 3 Nebulizer Compressor Inhale via nebulizer. Use as directed. 1 Each 1 Albuterol Sulfate HFA 108 (90 Base) MCG/ACT Inhalation Aerosol Solution Inhale 2 Puffs by mouth every 4 hours as needed for Cough, Shortness of Breath or Wheezing. 18 g 5 Atorvastatin Calcium 40 MG Oral Tablet (Lipitor) TAKE ONE TABLET BY MOUTH EVERY DAY 90 Tablet 2 Benzonatate 100 MG Oral Capsule Take 1 Capsule by mouth 3 times a day as needed for Cough. 30 Capsule 0 Acetaminophen 325 MG Oral Tablet (Tylenol) Take 1 Tablet by mouth every 6 hours as needed. Furosemide 40 MG Oral Tablet (Lasix) One tablet daily with an extra tablet as needed for swelling 120 Tablet 3 Meclizine HCl 12.5 MG Oral Tablet (Antivert) Take 1 Tablet by mouth 3 times a day as needed for Dizziness. 30 Tablet 0 Docusate Sodium 100 MG Oral Capsule (Colace) Take 2 Capsules by mouth 2 times a day as needed. Aspirin 81 MG Oral Tablet Chewable Take 1 Tablet by mouth in the morning. Uwnrsti-Tymkvtorb-Ieor 333-133-5 MG Oral Tablet Take 1 Tablet by mouth daily. Cranberry 500 MG Oral Capsule Take 1 Capsule by mouth in the morning and 1 Capsule before bedtime. 50 Cap Iron 325 (65 Fe) MG Oral Tablet Take 1 Tablet by mouth daily. DIURETIC TITRATION PLAN If no improvement on day 3, contact heart failure managing provider. 1 Each0 oxygen GAS 2.5 LPM bled through cpap. (Patient taking differently: 2.5 LPM) 1 Each 0 Multiple Vitamins-Minerals (CENTRUM SILVER 50+WOMEN) TABS Take 1 Tab by mouth daily. FISH OIL 1000 MG PO CAPS Take 1,200 mg by mouth in the morning. Budesonide 0.5 MG/2ML Inhalation Suspension (Pulmicort) Inhale 0.5 mg via nebulizer in the morning and 0.5 mg before bedtime. 60 mL 2 Formoterol Fumarate 20 MCG/2ML Inhalation Nebulization Solution Inhale 1 Inhalation by mouth in themorning. 100 mL 1 Ipratropium-Albuterol 0.5-2.5 (3) MG/3ML Inhalation Solution (Duoneb) Inhale 3 mL via nebulizer every 6 hours as needed for Shortness of Breath or Wheezing. 360 mL 3 Clobetasol Propionate 0.05 % External Cream (Temovate) Apply to area twice daily x 1 month , then nightly x 2 months, then twice weekly x 3 months (Patient not taking: Reported on 04/15/2024) 60 g 1 Fluticasone Propionate 50 MCG/ACT Nasal Suspension Administer 2 Sprays into each nostril in the morning. (Patient not taking: Reported on 04/15/2024) 16 g 3 No current facility-administered medications for this visit. PHYSICAL EXAM: Filed Vitals: 04/15/24 0929 BP: 126/56 Pulse: 84 Resp: 16 Temp: 36 C (96.8 F) TempSrc: Tympanic SpO2: 91% Weight: 63.5 kg (140 lb) Height: 1.524 m (5') Body mass index is 27.34 kg/m. General: alert, using oxygen via portable concentrator and NC. Head: NC/AT Cardiac: regular, + systolic murmur loudest at LUSB Lungs: no wheezing Neuro: speech clear and appropriate ASSESSMENT/PLAN: Obstructive sleep apnea - previously moderate by AHI criteria, though she has lost about 50 lbs since last completed baseline testing. - has been without CPAP for about 2 1/2 years - as she is on hospice, discussed that main goal in treating sleep apnea would be for quality of life; she did feel better when she was using CPAP, so is interested is restarting treatment for sleep apnea. - will need updated baseline testing to re-qualify for treatment. - WatchPAT, with using her normal 4 L/min oxygen. (She prefers home testing over in-lab testing, but did not get a good recording with the last Mary HST.) - MyG with results - Restart CPAP with new device if updated testing confirms ISELA (likely auto 5-9 cwp, as she has lost weight since she was last using 9 cwp). She would continue her ATC oxygen 4 L/min via CPAP when restarting CPAP. - DME: she would prefer to use [facility] (has oxygen through [facility]). - Continue to avoid driving when feeling sleepy/drowsy. Please verify the following with the patient before ordering WatchPAT study: Does patient have Wifi? Yes Does patient have smart phone? Yes Do they have acrylic nails or nail yi? Yes: please remove for duration of the study (She keeps one nail free for oxygen testing, will use that finger) Do they have a pacemaker? No Are they on alphablockers? Please list which med is the alphablocker: no What is the phone number of the cell phone they will be using? [phone] Follow-up with Sleep Medicine TBD based on WatchPAT results (likely for first CPAP check if testingconfirms she still has ISELA). Mayda Wagner DO documented in this encounter Nursing Notes * Pearl Long LPN - 04/15/2024 9:36 AM EDT Chief Complaint Patient presents with Follow Up Here return sleep. ISELA. CPAP. CPAP was recalled. Has been 3 years ago and never received it yet perpatient. [place] Sleepiness Scale Question 04/15/2024 9:29 AM EDT - Filed by Pearl Long LPN What is the chance you will doze off in the following situation? Sitting and reading High chance of dozing Watching TV Slight chance of dozing Sitting inactive in a public place, such as a theater or meeting No chance of dozing As a passenger in a car for an hour without a break Moderate chance of dozing Lying down to rest in the afternoon when circumstances permit No chance of dozing When sitting and talking to someone No chance of dozing When sitting quietly after lunch without alcohol No chance of dozing In a car, while stopped for a few minutes in traffic No chance of dozing Score (range: 0 - 24) 6 documented in this encounter Plan of Treatment Upcoming Encounters Date Type Department Care Team (Late st Contact Info) Description 05/29/2024 3:00 PM EDT Office Visit Hematology/Oncology [facility] [address] [facility] [place] [phone] Gris Diaz CRNP [address] [place] [id number] 06/12/2024 8:00 AM EDT Office Visit Cardiology [address] [place] [address] Mi Neil PA-C [address] [place] [address] 07/07/2024 10:00 AM EDT PulmDiagnostic Sleep Lab [address] [place] [id number] Jorge Luis, Sleep Med Home Study [address] [place] [address] 08/12/2024 11:00 AM EST Office Visit Family Medicine [address] [place] [phone] Rhys Humphrey MD [address] [place] [address] [place] [address] 03/20/2025 10:00 AM EDT Nurse Only Ancillary [address] [place] [address] [place], Nurse Annual [address] [place] [address] Scheduled Orders Name Type Priority Associated Diagnoses Orde r Schedule TIMED SLEEP STUDY, UNATTEND, HR/O2 SAT/RESP Procedures Routine Obstructive sleep apnea Centrilobular emphysema (HCC) 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) Chronic hypoxemic respiratory failure (HCC) Ordered: 04/15/2024 Scheduled Procedures Name Priority Associated Diagnoses Date/Ti [...] D LEVEL ONCE IN A LIFETIME-USE SMARTSET# [id number] Completed 06/29/2020, 03/16/2015 Pneumococcal Vaccine: 65+ Years [...] as of this encounter Visit Diagnoses Diagnosis Obstructive sleep apnea- Primary Obstructive sleep apnea (adult) (pediatric) Centrilobular emphysema (HCC) Other emphysema 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) Chronic hypoxemic respiratory failure (HCC) Chronic respiratory failure documented in this encounter Advance Directives Documents on File Type Date Recorded Patient Captain Assistant Expl anation POLST 10/15/2019 3:17 PM POLST POLST 03/05/2019 POLST FORM Advance Directives and Living Will 01/27/2013 LIVING WILL Advance Directives and Living Will 01/27/2013 LIVING WILL Power of [employer] 01/27/2013 POWER OF A TTORNEY Power of [employer] Farm Manager 01/27/2013 POWER OF A TTORNEY Healthcare Agents on File Name Relationship Healthcare Agent Relationship Communication Cydney Benito Other - (no specific identity) Second Alternate Health Care Agent Anyi More Adult Child Health Care Roberth r of [employer] Manager Care Teams An/Sqq 89(V)15 Sonar System Journeyman Relationship Specialty Start Date End Date Rhys Humphrey MD [address] [place] [address] [place] [address] PCP - General Family Medicine 06/09/21 documented as of this encounter
--- OUTSIDE RECORDS SUMMARY | 2024-04-19 11:32 | External Medical Summary | Summary of Care ---
Author Name Unknown Organization [facility] Address [address] [place] [address] Phone [phone] Care Team Providers Care Funeral Planner Name Role Phone Rhys Gonzalez MD Primary Care Provide r Reason for Visit * Reason Onset Date Comments Medication Refill 04/13/2024 Encounter Details Date Type Department Care Team (Late st Contact Info) Description 04/13/2024 Refill Family Medicine [address] [place] [phone] Rhys Gonzalez MD [address] [place] [address] [place] [address] COPD, group D, by GOLD 2017 classification ([facility]) Allergies Active Allergy Reactions Criticality Noted Date [...] Capsule before bedtime. 50 Cap 01/18/2021 Active Eqwgdej-Dawdlolcg-N inc 333-133-5 MG Oral Tablet Take 1 [...] Base) MCG/ACT Inhalation Aerosol SolutionIndications :COPD, moderate ([facility]) Inhale 2 Puffs by mouth every 4 hours as needed for Cough, Shortness of Breath or Wheezing. 18 g 5 11/09/2023 Active Ipratropium-Albuter ol 0.5-2.5 (3) MG/3ML Inhalation Solution (Duoneb)Indications :COPD, group D, by GOLD 2017 classification ([facility]) Inhale 3 mL via nebulizer every 6 hours as needed for Shortness of Breath or Wheezing. 360 mL 3 11/10/2023 Active Nebulizer CompressorIndicatio ns:COPD, moderate ([facility]) Inhale via nebulizer. Use as [...] ons:COPD, group D, by GOLD 2017 classification ([facility]) Take 5 tabs for 2 days, 4 tabs for 2 days, 3 tabs for 2 days, 2 tabs for 2 days 1 tab for 2 days 30 Tablet 04/08/2024 Active Budesonide 0.5 MG/2ML Inhalation Suspension (Pulmicort)Indicati ons:COPD, group D, by GOLD 2017 classification ([facility]) Inhale 0.5 mg via nebulizer in the morning and 0.5 mg before bedtime. 60 mL 2 04/15/2024 Active Formoterol Fumarate 20 MCG/2ML Inhalation Nebulization SolutionIndications :COPD, group D, by GOLD 2017 classification ([facility]) Inhale 1 Inhalation by mouth in the morning. 100 mL 1 04/15/2024 Active Budesonide 0.5 MG/2ML Inhalation Suspension (Pulmicort)Indicati ons:COPD, group D, by GOLD 2017 classification ([facility]) Inhale 0.5 mg via nebulizer in the morning and 0.5 mg before bedtime. 60 mL 2 03/18/2024 4 Discontinu ed(Refill) Formoterol Fumarate 20 MCG/2ML Inhalation Nebulization SolutionIndications :COPD, group D, by GOLD 2017 classification ([facility]) Inhale 1 Inhalation by mouth [...] mRNA, LNP-s, No Pre serve, 2-Dose Series ([employer]) 08/01/2021,07/11/2021,11/14/2020,10/24 COVID-19, MRNA-LNP, 23-24, P F, 30 MCG/0.3 mL, 12 YRS AND ABOVE, IM ([facility]) 07/23/2023 Covid-19, Mrna, Lnp-s, Pf, B ivalent, 30 Mcg, IM, 12 yrs and above (Pfizer) 07/21/2022 Pneumococcal Conjugate Vacc, 13 Valent (Prevnar) 03/16/2015 Pneumococcal Conjugate Vacci ne, 20-valent ([id number]) 07/21/2022 Pneumococcal Polysaccharide PPV23 (Pneumovax) 03/05/2019,07/18/2007 Season [...] encounter Miscellaneous Notes * Telephone Encounter - William Finney [facility] - 04/15/2024 10:12 AM EDT Signed Prescriptions: Disp Refills Budesonide 0.5 MG/2ML Inhalation Suspensio*60 mL 2 Sig: Inhale 0.5 mg via nebulizer in the morning and 0.5 mg before bedtime.Authorizing Provider: Angela GONZALEZ User: WILLIAM FINNEY Formoterol Fumarate 20 MCG/2ML Inhalation *100 mL 1 Sig: Inhale 1 Inhalation by mouth in the morning.Authorizing Provider: Angela GONZALEZ User: WILLIAM FINNEY documented in this encounter Plan of Treatment Upcoming Encounters Date Type Department Care Team (Late st Contact Info) Description 05/29/2024 3:00 PM EDT Office Visit Hematology/Oncology [facility] [address] [facility] [place] [phone] Gris Diaz CRNP [address] [place] [address] 06/12/2024 8:00 AM EDT Office Visit Cardiology [address] [place] [phone] Mi Neil PA-C [address] [facility] [place] [address] 07/07/2024 10:00 AM EDT [facility] Mariella Kang [address] [place] [address] Jorge Luis, Sleep Med Home Study Mariella [address] [place] [address] 08/12/2024 11:00 AM EST Office Visit Family Medicine [address] [place] [phone] Rhys Gonzalez MD [address] [place] [address] [place] [address] 03/20/2025 10:00 AM EDT Nurse Only Ancillary [address] [place] [address] [place], Nurse Annual Wellness [address] [place] [address] [place] [address] Scheduled Procedures Name Priority Associated Diagnoses Date/Ti [...] D LEVEL ONCE IN A LIFETIME-USE SMARTSET# 37859 Completed 06/29/2020, 03/16/2015 Pneumococcal Vaccine: 65+ Years [...] Documents on File Type Date Recorded Patient Passenger Coach Driver Expl anation POLST 10/15/2019 3:17 PM POLST POLST 03/05/2019 POLST FORM Advance Directives and Living Will 01/27/2013 LIVING WILL Advance Directives and Living Will 01/27/2013 LIVING WILL Power of Modeling Analyst 01/27/2013 POWER OF A TTORNEY Power of Modeling Analyst 01/27/2013 POWER OF A TTORNEY Healthcare Agents on File Name Relationship Healthcare Agent Relationship Communication Cydney Benito Other - (no specific identity) Second Alternate Health Care Agent Aniy More Adult Child Health Care Roberth r of Modeling Analyst Care Teams Funeral Planner Relationship Specialty Start Date End Date Rhys Gonzalez MD [address] [place] [address] [place] [phone] PCP - General Family Medicine 06/09/21 documented as of this encounter
--- OUTSIDE RECORDS SUMMARY | 2024-04-19 11:32 | External Medical Summary | Summary of Care ---
Author Name Unknown Organization [facility] Address [address] [place] [address] Phone [phone] Care Team Providers Care Electrical Cad Technician Name Role Phone Rhys Humphrey MD Primary Care Provide r Reason for Visit * Reason Onset Date Comments Advice 03/18/2024 Re CPAP Encounter Details Date Type Department Care Team (Late st Contact Info) Description 03/18/2024 Telephone Family Medicine [address] [place] [phone] Rhys Humphrey MD [address] [place] [address] [place] [address] Advice (Re CPAP) Allergies Active Allergy Reactions Criticality Noted Date Comments Adhesive Tape Other (Please comment),Hives High 09/29/2008 Caused welts Dextromethorphan-Gu aifenesin Neuro complications (Please comment) Medium 12/23/2021 Feels lightheaded/"foggy" documented as of this encounter (statuses as of 04/11/2024) Medications Medication Sig Dispensed Refills Start Date [...] Capsule before bedtime. 50 Cap 01/18/2021 Active Hxxnpbr-Gzwvuydbg-Rm nc 333-133-5 MG Oral Tablet Take 1 [...] MCG/ACT Inhalation Aerosol SolutionIndications: COPD, moderate ([facility]) Inhale 2 Puffs by mouth every [...] 3 11/10/2023 Active Nebulizer CompressorIndication s:COPD, moderate ([facility]) Inhale via nebulizer. Use as directed. 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) Take 1 Tablet by mouth every 8 hours as needed for Nausea. 90 Tablet 3 01/29/2024 Active traZODone HCl 50 MG Oral Tablet (Desyrel)Indications :Chronic insomnia,Major depression in remission (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) TAKE ONE TABLET IN THE MORNING 30 Tablet 1 02/27/2024 Active Budesonide 0.5 MG/2ML Inhalation Suspension (Pulmicort)Indicatio ns:COPD, group D, by GOLD 2017 classification ([facility]) Inhale 0.5 mg via nebulizer in the morning and 0.5 mg before bedtime. 60 mL 2 03/18/2024 Active Formoterol Fumarate 20 MCG/2ML Inhalation Nebulization SolutionIndications: COPD, group D, by GOLD 2017 classification ([facility]) Inhale 1 Inhalation by mouth in [...] as of this encounter (statuses as of 04/11/2024) Active Problems Problem Noted Date Diagnosed Date [...] as of this encounter (statuses as of 04/11/2024) Resolved Problems Problem Noted Date Diagnosed Date [...] as of this encounter (statuses as of 04/11/2024) Immunizations Name Administration Dates Next Due COVID-19 mRNA, LNP-s, No Pre serve, 2-Dose Series ([employer]) 08/01/2021,07/11/2021,11/14/2020,10/24 COVID-19, MRNA-LNP, 23-24, P F, 30 MCG/0.3 mL, 12 YRS AND ABOVE, IM ([employer]) 07/23/2023 Covid-19, Mrna, Lnp-s, Pf, B ivalent, 30 Mcg, IM, 12 yrs and above ([employer]) 07/21/2022 Pneumococcal Conjugate Vacc, 13 Valent (Prevnar) 03/16/2015 Pneumococcal Conjugate Vacci ne, 20-valent ([id number]) 07/21/2022 Pneumococcal Polysaccharide PPV23 (Pneumovax) 03/05/2019,07/18/2007 Season [...] 03/18/2024 Does the household have a re lar source of income? (Household - for ages [...] Telephone Encounter - Sangeetha Carter OSA - 04/11/2024 9:24 AM EDT Called patients daughter and she is scheduled for 04/15 and aware of the date and time * Telephone Encounter - Jessenia Neves RN - 04/11/2024 8:26 AM EDT Patient is not scheduled yet, can you please send to your schedulers to offer appt, thanks * Telephone Encounter - Jessenia Neves RN - 03/20/2024 8:16 AM EDT Patient aware you will be calling for an appointment, her daughter Anyi schedules all her appts, please call Anyi at [phone] * Telephone Encounter - Cecy Francois LPN - 03/18/2024 11:04 AM EDT Pt hasn't been seen since 03/2022. She will need a f/u appt to address the CPAP questions. I will ask scheduling to reach out to her to get her scheduled. 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 We did increase her O2 to 5L with walking due to her SPO2 dropping and 4L sitting and at bedtime per Rhys Humphrey MD . Patient states she did well on the Cpap before it was recalled, patient states they have tried to reschedule the sleep study and failed at it. Patient wanted to know if sleep med could give some recommendations about another cpap machine. Patient states she has not heard back from them or [facility]. Patient still struggles with insomnia and trying to get comfortable at night and thinks this would help. Patient continues to be very active and travels often. Message sent to dept for advice, please call patient. Reason for Call: Advice (Re CPAP) Contact: In Clinic Contact Type: Follow-up Provider In-Basket: Yes Outcome: see note Face to face time spent with Patient (minutes): 10 Total Time including non face to face (minutes): 20 documented in this encounter Plan of Treatment Upcoming Encounters Date Type Department Care Team (Late st Contact Info) Description 04/15/2024 9:40 AM EDT Office Visit Sleep Disorders Ctr Mariella [address] [place] [phone] Mayda Wagner, [address] [place] [address] 05/29/2024 3:00 PM EDT Office Visit Hematology/Oncology [facility] [place] [address] [facility] [place] [phone] Gris Diaz CRNP [address] [facility] [place] [address] 06/12/2024 8:00 AM EDT Office Visit Cardiology [address] [place] [address] Mi Neil PA-C [address] [place] [address] 08/12/2024 11:00 AM EST Office Visit Family Medicine [address] [place] [phone] Rhys Humphrey MD [address] [place] [address] [place] [address] 03/20/2025 10:00 AM EDT Nurse Only Ancillary [address] [place] [address] [place], Nurse Annual [address] [place] [address] Scheduled Procedures Name Priority Associated Diagnoses Date/Ti me ESOPHAGOGASTRODUODENOSCOPY ( EGD), FLEXIBLE, TRANSORAL, DIAGNOSTIC Recall Other iron deficiency anemia Health Maintenance Due Date Last Done Comments Alpha-1 Antitrypsin 1958 DXA Scan 06/11/2020 06/11/2018, 03/02, 02/16/2012, Additional history exists *BISPHONATE OR OTHER ACCEPTABLE MEDICATION NEEDED FOR OSTEOPOROSIS (REFER TO SMARTSET #1146) 01/23/2021 COVID-19 Vaccine ( season) 2023 07/23/2023, 07/21/2022, 08/01/2021, Additional history exists Influenza Vaccine (FLU shot) (#1) 2024 06/07/2023, 06/16/2022, 06/08/2021, Additional history exists O2 ASSESSMENT COMPLETED IN PAST YEAR FOR COPD 08/10/2024 08/10/2023 Depression Monitoring 03/18/2025 03/18/2024 Albumin/Creatinine Ratio 04/28/2025 04/28/2022 DTaP,Tdap,and Td Vaccines (3 - Td or Tdap) 09/17/2029 09/17/2019, 08/10/2011, 10/01/2001 Zoster Vaccines Completed 04/25/2020, 08/31, 07/22/2012 VITAMIN D LEVEL ONCE IN A LIFETIME-USE SMARTSET# [id number] Completed 06/29/2020, 03/16/2015 Pneumococcal Vaccine: 65+ Years [...] Documents on File Type Date Recorded 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 POLST 10/15/2019 3:17 PM POLST POLST 03/05/2019 POLST FORM Advance Directives and Living Will 01/27/2013 LIVING WILL Advance Directives and Living Will 01/27/2013 LIVING WILL Power of Cash Management Associate 01/27/2013 POWER OF A TTORNEY Power of Cash Management Associate 01/27/2013 POWER OF A TTORNEY Healthcare Agents on File Name Relationship Healthcare Agent Relationship Communication Cydney Benito Other - (no specific identity) Second Alternate Health Care Agent Anyi More Adult Child Health Care Roberth cooper of Cash Management Associate Care Teams Electrical Cad Technician Relationship Specialty Start Date End Date Rhys Humphrey MD [address] [place] [address] [place] [address] PCP - General Family Medicine 06/09/21 documented as of this encounter
--- OUTSIDE RECORDS SUMMARY | 2024-04-19 11:32 | External Medical Summary | Summary of Care ---
Author Name Unknown Organization [facility] Address [address] [place] [address] Phone [phone] Care Team Providers Care Property Portfolio Officer Name Role Phone Ollie Gonzalez MD Primary Care Provide r Reason for Visit * Reason Onset Date Comments Medication Refill 03/25/2024 Encounter Details Date Type Department Care Team (Late st Contact Info) Description 03/25/2024 Refill Family Medicine [address] [place] [phone] Ollie Gonzalez MD [address] [place] [address] [place] [address] Allergies Active Allergy Reactions Criticality Noted Date [...] Capsule before bedtime. 50 Cap 01/18/2021 Active Bzxftqo-Ayrxsurpb-Dy nc 333-133-5 MG Oral Tablet Take 1 [...] 3 11/10/2023 Active Nebulizer CompressorIndication s:COPD, moderate ([facility]) Inhale via nebulizer. 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 60 mL 2 03/18/2024 Active Formoterol Fumarate 20 MCG/2ML Inhalation Nebulization SolutionIndications: COPD, group D, by GOLD 2017 classification ([facility]) Inhale 1 Inhalation by mouth [...] for Heartburn. 30 Tablet 1 03/25/2024 Active documented as of this encounter (statuses [...] 05/31/20 17 Cancer Staging:Clinical:Stage III- Signed by Martíenz Lopes MD on 11/16/2014 Pathologic: Unsigned TIA (transient ischemic attack) 06/24/2018 documented as of this encounter (statuses as of 03/25/2024) Immunizations Name Administration Dates Next Due COVID-19 mRNA, LNP-s, No Pre serve, 2-Dose Series ([employer] 08/01/2021,07/11/2021,11/14/2020,10/24 COVID-19, MRNA-LNP, 23-24, P F, 30 MCG/0.3 mL, 12 YRS AND ABOVE, IM ([employer]) 07/23/2023 Covid-19, Mrna, Lnp-s, Pf, B ivalent, 30 Mcg, IM, 12 yrs and above (Pfizer) 07/21/2022 Pneumococcal Conjugate Vacc, 13 Valent (Prevnar) 03/16/2015 Pneumococcal Conjugate Vacci ne, 20-valent ([id number]) 07/21/2022 Pneumococcal Polysaccharide PPV23 (Pneumovax) 03/05/2019,07/18/2007 Season [...] Telephone Encounter - Ollie Gonzalez MD - 03/25/2024 10:53 AM EDT Recommend taking pepcid prn for GERD symptoms instead of daily * Telephone Encounter - Ollie Gonzalez MD - 03/25/2024 10:53 AM EDT Signed Prescriptions: Disp Refills Famotidine 20 MG Oral Tablet (Pepcid) 30 Tab*1 Sig: Take 1 Tablet by mouth daily as needed for Heartburn. Authorizing Provider: OLLIE GONZALEZ * Telephone Encounter - Nenita Ford LPN - 03/25/2024 10:14 AM EDT Daughter Anyi did confirm pt is taking this. She said it was accidentally removed from pt's med list. Please send Rx. Should she be taking Protonix also? Is just saw that on her list too. Thanks Daughter also mentioned pt was in the ER on Sunday due to coughing up a lot of blood. She said test results show the cancer has spread to the liver. * Telephone Encounter - Nenita Ford LPN - 03/25/2024 10:03 AM EDT I messaged daughter, Anyi to confirm if pt is taking this. * Telephone Encounter - David Chen CPhT - 03/25/2024 9:26 AM EDT Pharmacy requesting high priority as pt is almost out of meds and pill packs are getting ready to be sent out. Patient requesting refills for Famotidine 20 MG. Upon chart review, medication is listed as discontinued, with discontinuation reason as "Medication List Clean Up". Please advise if you wish to continue this therapy for the patient. Thank you, David Chen E Commerce Web Developer [facility] 03/25/2024,9:27 AM documented in this encounter Plan of Treatment Upcoming Encounters Date Type Department Care Team (Late st Contact Info) Description 05/29/2024 3:00 PM EDT Office Visit Hematology/Oncology [facility] [phone] Gris Diaz CRNP [address] [place] [address] 06/12/2024 8:00 AM EDT Office Visit Cardiology [address] [place] [address] Mi Neil PA-C [address] [place] [address] 08/12/2024 11:00 AM EST Office Visit Family Medicine [address] [place] [phone] Ollie Gonzalez MD [address] [place] [address] [place] [address] 03/20/2025 10:00 AM EDT Nurse Only Ancillary [address] [place] [address] [place], Nurse [address] [place] [address] Scheduled Procedures Name Priority Associated Diagnoses Date/Ti [...] D LEVEL ONCE IN A LIFETIME-USE SMARTSET# [id number] Completed 06/29/2020, 03/16/2015 Pneumococcal Vaccine: 65+ Years [...] on File Type Date Recorded Patient Hospice Massage Therapist Expl anation POLST 10/15/2019 3:17 PM POLST POLST 03/05/2019 POLST FORM Advance Directives and Living Will 01/27/2013 LIVING WILL Advance Directives and Living Will 01/27/2013 LIVING WILL Power of Senior Field Service Engineer 01/27/2013 POWER OF A TTORNEY Power of Senior Field Service Engineer 01/27/2013 POWER OF A TTORNEY Healthcare Agents on File Name Relationship Healthcare Agent Relationship Communication Cydney Benito Other - (no specific identity) Second Alternate Health Care Agent Anyi More Adult Child Health Care Roberth r of Senior Field Service Engineer Care Teams Property Portfolio Officer Relationship Specialty Start Date End Date Ollie Gonzalez MD [address] [place] [address] [place] [address] PCP - General Family Medicine 06/09/21 documented as of this encounter
--- OUTSIDE RECORDS SUMMARY | 2024-04-19 11:32 | External Medical Summary | Summary of Care ---
Author Name Unknown Organization [facility] Address [address] [place] [address] Phone [phone] Care Team Providers Care Door Hanger Name Role Phone Ollie Gonzalez MD Primary Care Provide r Reason for Visit * Reason Onset Date Comments Medication Refill 03/25/2024 Encounter Details Date Type Department Care Team (Late st Contact Info) Description 03/25/2024 Refill Family Medicine [address] [place] [phone] Ollie Gonzalez MD [address] [place] [address] [place] [id number] Allergies Active Allergy Reactions Criticality Noted Date [...] Capsule before bedtime. 50 Cap 01/18/2021 Active Pgtrhkh-Girtqhwje-Qw nc 333-133-5 MG Oral Tablet Take 1 [...] 11/10/2023 Active Nebulizer CompressorIndication s:COPD, moderate ([facility]) Inhale via nebulizer. Use as directed. 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),Metastasis to mediastinal lymph node ([facility]) Take 1 Tablet by mouth every [...] to mediastinal lymph node (HCC),Chemotherapy-i nduced neutropenia ([facility]) TAKE ONE TABLET IN THE MORNING [...] mRNA, LNP-s, No Pre serve, 2-Dose Series (Waterfall) 08/01/2021,07/11/2021,11/14/2020,10/02 COVID-19, MRNA-LNP, 23-24, P F, 30 MCG/0.3 mL, 12 YRS AND ABOVE, IM (Splash.FM-Comirnaty) 07/23/2023 Covid-19, Mrna, Lnp-s, Pf, B ivalent, 30 Mcg, IM, 12 yrs and above (Pfizer) 07/21/2022 Pneumococcal Conjugate Vacc, 13 Valent (Prevnar) 03/16/2015 Pneumococcal Conjugate Vacci ne, 20-valent ([id number]) 07/21/2022 Pneumococcal Polysaccharide PPV23 (Pneumovax) 03/05/2019,07/18/2007 Season [...] Telephone Encounter - Sidney Rg LPN - 03/25/2024 11:09 AM EDT Anyi (Daughter) aware of Note Below * Telephone Encounter - Ollie Gonzalez MD [...] for the patient. Thank you, David Chen Choker Setter [facility] 03/25/2024,9:27 AM documented in this encounter Plan of Treatment Upcoming Encounters Date Type Department Care Team (Late st Contact Info) Description 05/29/2024 3:00 PM EDT Office Visit Hematology/Oncology [facility] [address] [facility] [phone] Gris Diaz CRNP [address] [facility] [place] [address] 06/12/2024 8:00 AM EDT Office Visit Cardiology [address] [place] [address] Mi Neil PA-C [address] [place] [address] 08/12/2024 11:00 AM EST Office Visit Family Medicine [address] [place] [phone] Ollie Gonzalez MD [address] [place] [address] [place] [address] 03/20/2025 10:00 AM EDT Nurse Only Ancillary [address] [place] [address] [place], Nurse Annual [address] [place] [id number] Scheduled Procedures Name Priority Associated Diagnoses Date/Ti [...] D LEVEL ONCE IN A LIFETIME-USE SMARTSET# [id number] Completed 06/29/2020, 03/16/2015 Pneumococcal Vaccine: 65+ Years [...] Documents on File Type Date Recorded Patient Print Room Worker Expl anation POLST 10/15/2019 3:17 PM POLST POLST 03/05/2019 POLST FORM Advance Directives and Living Will 01/27/2013 LIVING WILL Advance Directives and Living Will 01/27/2013 LIVING WILL Power of Selling Underwriter 01/27/2013 POWER OF A TTORNEY Power of Selling Underwriter 01/27/2013 POWER OF A TTORNEY Healthcare Agents on File Name Relationship Healthcare Agent Relationship Communication Cydney Benito Other - (no specific identity) Second Alternate Health Care Agent Anyi More Adult Child Health Care Roberth r of Selling Underwriter Care Teams Door Hanger Relationship Specialty Start Date End Date Ollie Gonzalez MD [address] [place] [address] [place] [id number] PCP - General Family Medicine 06/09/21 documented as of this encounter
[2024-04-19] MEDS: GLYCOPYRROLATE 0.2 MG/ML VIAL IV PRN (12:14)
--- NOTE | 2024-04-19 16:49 | History & Physical Report ---
<Statement entered by Farrukh Styles, DO - 04/19/24 17:23> I have seen and examined the patient and have discussed the case with the provider above. I have reviewed the advanced practitioner's documentation, and I agree with, and take responsibility for that plan of care. Patient seen and examined while in the ED. She is currently on BiPAP. Son is at the bedside. Discussed with patient if she felt comfortable on the BiPAP. She did state that the pressure of the BiPAP was uncomfortable and would prefer to be off the BiPAP but did feel as though it is helping her breathing somewhat. Explained to her that we could use other medicines to help with any air hunger or dyspnea and allow her to come off the BiPAP so she could speak with her family and be closer to her family not have that barrier. Patient was agreeable to this plan. Continue with comfort measures Plan of care as outlined below. 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 Patient chose to discontinue chemo treatment in Nov 2023, previously on hospice Goals as discussed with family and patient - comfort measures only with return home as soon as possible on Hospice (per CM discussion with hospice agency, plan for Sunday) Dc all lab draws, vital signs Dc home medications that will not provide comfort, per patient wishes Initially trialed bipap in ED for comfort and improved, will now transition to nasal cannula Given 1x dose of 40mg IV lasix given appearance of volume congestion contributing to SOB Continue PRN Roxanol, PRN haldol for agitation (does not tolerate ativan per family), PRN glycopyrrolate for secretions DVT Ppx: contraindicated, 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 Styles. Please see addendum. I spent a total of 75 minutes coordinating, documenting, and providing care for this patient excluding time spent in the performance of separately billed services. History of Present Illness Chief Complaint: SOB Primary Care Provider: Rhys Humphery MD This is an 83yo F with a PMH of Left lower lobe neuroendocrine carcinoma with mediastinal involvement as well as retroperitoneal lymph node involvement with chemo treatment discontinued in Nov 2023, ISELA, nocturnal hypoxemia, HTN, HFpEF, history of hospice care and other medical problems listed below who presents from home with increased shortness of breath. History primarily obtained from family at bedside due to patient's lethargic state. Patient lives alone at [facility]. History of admission this past spring for hypoxic respiratory failure in the setting of decompensated CHF and advancing small cell neuroendocrine carcinoma of the lung. Patient was previously on hospice but due to admission it was stopped and has not been technically re sumed, per family at bedside and case management. Has been feeling pretty well recently, able to eat and play bingo at her independent living, per family. Still having intermittent bouts of hemoptysis but less than previous per family. Overnight, patient became more acutely short of breath and weak, calling her family this morning and asking to be brought to the ED. Received 1 dose of morphine at home from without improvement. Family also noted black stool in the bathroom apartment prior to bring her in. Patient and family interested in transition to comfort measures at this time with the goal of reestablishment of hospice and discharged home on Sunday. No lab draw in ED and no interest in continued labs or diagnostic evaluation. Trial of BiPAP for comfort with improvement but will now take off mask and transition to oxygen by nasal cannula. Patient denies any pain at this time. Verbalizes interest in discontinuation of home medications as appropriate. Allergies Allergy/AdvReac Type Severity Reaction Status Date / Time adhesive Allergy Intermediate HIVES Verified 12/07/23 13:52 Home Medications Medication Instructions Recorded Confirmed Type albuterol sulfate 90 mcg/actuation 2 puff inhalation UD PRN Shortness 09/18/19 04/19/24 History aerosol inhaler Of Breath Or Wheezing aspirin 81 mg tablet,delayed 81 mg PO QAM 08/12/23 04/19/24 History release benzonatate 100 mg capsule 100 mg PO UD PRN Cough 08/12/23 04/19/24 History conjugated estrogens 0.625 mg/gram 500 mg vaginal UD PRN dryness 08/12/23 04/19/24 History vaginal cream (Premarin) fluticasone furoate 100 1 inh inhalation UD PRN Breathing 08/12/23 04/19/24 History mcg/actuation blister powder for Problems inhalation (Arnuity Ellipta) ipratropium 0.5 mg-albuterol 3 mg 3 ml inhalation Q6H PRN Shortness 08/12/23 04/19/24 History (2.5 mg base)/3 mL nebulization Of Breath Or Wheezing soln loratadine 10 mg tablet (Claritin) 10 mg PO UD 08/12/23 04/19/24 History umeclidinium 62.5 mcg-vilanterol 1 inh inhalation DAILY PRN 08/12/23 04/19/24 History 25 mcg/actuation powdr for Breathing Problems inhalation (Anoro Ellipta) acetaminophen 325 mg tablet (Pain 650 mg PO HS PRN Pain 10/29/23 04/19/24 History Reliever (acetaminophen)) allopurinol 100 mg tablet 100 mg PO QAM 10/29/23 04/19/24 History docusate sodium 100 mg capsule 200 mg PO DAILY@1200 PRN 10/29/23 04/19/24 History Constipation famotidine 20 mg tablet 20 mg PO DAILY 10/29/23 04/19/24 History ferrous sulfate 325 mg (65 mg 325 mg PO DAILY 10/29/23 04/19/24 History iron) tablet (FeroSul) furosemide 40 mg tablet 40 mg PO DAILY 10/29/23 04/19/24 History gabapentin 300 mg capsule 900 mg PO HS 10/29/23 04/19/24 History losartan 50 mg tablet 25 mg PO QAM 10/29/23 04/19/24 History montelukast 10 mg tablet 10 mg PO DAILY 10/29/23 04/19/24 History omega 5-kaf-fpx-fish oil 1,200 mg 1 cap PO BID 10/29/23 04/19/24 History (144 mg-216 mg) capsule (Fish Oil) pantoprazole 40 mg tablet,delayed 40 mg PO DAILY 10/29/23 04/19/24 History release trazodone 50 mg tablet 25 mg PO HS Insomnia 10/29/23 04/19/24 History budesonide 0.5 mg/2 mL suspension 0.5 mg (2 mL) NEB BIDR #60 mL 10/30/23 04/19/24 Rx for nebulization glffnvp-ecnmtcobo-hhrf 333 mg-133 1 tab PO .NOON 12/07/23 04/19/24 History mg-8.3 mg tablet cranberry extract 500 mg capsule 500 mg PO BID 12/07/23 04/19/24 History (Cranberry Concentrate) guaifenesin 100 mg/5 mL oral liquid 200 mg PO UD 12/07/23 04/19/24 History cbsjonxz-onpdoyx-wvep-lutein tablet 1 tab PO DAILY 12/07/23 04/19/24 History prochlorperazine maleate 10 mg 10 mg PO Q6H PRN Nausea And 12/07/23 04/19/24 History tablet Vomiting ramelteon 8 mg tablet 8 mg PO HS 12/07/23 04/19/24 History atorvastatin 40 mg tablet 40 mg PO QAM 04/19/24 04/19/24 History formoterol fumarate 20 mcg/2 mL 20 mcg NEB QAM 04/19/24 04/19/24 History solution for nebulization (Perforomist) ondansetron HCl 8 mg tablet 8 mg PO BID 04/19/24 04/19/24 History prednisone 10 mg tablet 10 mg PO UD 04/19/24 04/19/24 History Past Med/Surg History Problem List (Updated 04/19/24 @ 16:55 by Jocelynn Virgen PA-C) Comfort measures only status Acute respiratory failure with hypoxia (Acute) Anemia (Acute) Hypomagnesemia (Acute) Lung cancer (Acute) URI (upper respiratory infection) (Acute) CHF (congestive heart failure) (Acute) Coronavirus infection Dyspnea (Acute) Acute on chronic hypoxic respiratory failure COPD exacerbation Elevated troponin (Acute) Pneumonitis (Acute) Acute respiratory distress (Acute) Circumscribed scleroderma Age related osteoporosis Aortic stenosis Mild aortic stenosis per 12/29/21 echo nonrheumatic Pneumonia Small cell neuroendocrine carcinoma of lung Abnormal chest CT Elevated brain natriuretic peptide (BNP) level (Acute) Shortness of breath (Acute) Acute hypoxic respiratory failure (Acute) Chronic hypoxemic respiratory failure 2L Home O2 Stenosis of left internal carotid artery Flexor tenosynovitis of finger (Acute) Wound infection (Acute) Failure of outpatient treatment (Acute) Anemia (Acute) Cellulitis of finger of left hand Tenosynovitis of finger Left-sided weakness (Acute) Anemia (Acute) Asymptomatic carotid artery stenosis Encounter for pre-operative examination S/P carotid endarterectomy Encounter for pre-operative examination Encounter for pre-operative examination COPD (chronic obstructive pulmonary disease) Stable History of left hip replacement H/O carotid endarterectomy Right History of hysterectomy ISELA (obstructive sleep apnea) Not currently using CPAP due to recall GERD (gastroesophageal reflux disease) TIA (transient ischemic attack) 10 years ago, 03/11/21 > follows with [facility] Prediabetes Depression Non-Hodgkin lymphoma Hyperlipidemia Hypertension Chronic diastolic heart failure Nocturnal hypoxemia Medical History 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 Nocturnal hypoxemia History of COVID-19 2+ years ago > no further issues Chronic anemia chronic, baseline hgb 10-11 range per chart review Carotid artery stenosis s/p right (5+ years ago)/left (2020) carotid endarterectomy Thyroid nodule Under surveillance Myocardial Infarction Several years ago Lymphoma Surgical History History of left-sided carotid endarterectomy History of esophagogastroduodenoscopy (EGD) History of colonoscopy Family History Other No family history of adverse response to anesthesia Stroke Social History Smoking Status: Never smoker Tobacco Type: Cigarettes Second Hand Exposure: No; Do You Dip or Chew Tobacco: No; Hx Alcohol Use: Yes Alcohol type: wine Hx Substance Use: No Preferred Language: Latvian Communication Ability: Effective Product Picker Required: No Beliefs That Will Affect Care: None marital status: Unknown Current Living Situation: Alone Current Living Situation Comment: [place] current occupational status: retired Feels Safe at Home: Yes Assistive Devices: Nebulizer, Oxygen - Continuous, Walker and Wheelchair Review of Systems Review of Systems: Unobtainable due to cognitive status Physical Exam Physical Exam: General Appearance: WD/WN, vitals as above, NAD, sitting up in bed, patient sleeping with bipap mask in place, awakens to verbal stimuli and answers questions with nodding yes/no Head: normocephalic, atraumatic Eyes: normal inspection, PERRL, conjunctivae normal, anicteric sclerae ENT: external ear and nose normal, bipap mask in place Neck: normal visual inspection, trachea midline, no thyromegaly Respiratory: increased respiratory effort, bibasilar rales, tachypnea Cardiovascular: tachycardic rate, regular rhythm, normal peripheral pulses, 1+ BLE edema. Vessels: no JVD Chest: normal inspection of chest Abdomen/GI: normal bowel sounds, soft, nontender, no hepatosplenomegaly Extremities/Musculoskeletal: no cyanosis or clubbing, extremities motor strength 5/5 Neurologic: PERRL, EOMI, accommodation nl, no face palsy, no dysarthria, CN's II-XI intact bilaterally and moves all extremities Psychiatric: A+Ox3, euthymic affect Skin: no rashes, normal color, warm/dry Results & Data Results & Data Vital Signs (Past 12 Hours) Vital Signs Temp Pulse Pulse Resp BP BP Pulse Ox 04/19/24 15:24 94 H 25 H 97 04/19/24 12:49 111 H 04/19/24 12:15 115 H 29 H 146/87 H 96 04/19/24 11:45 126 H 32 H 96 04/19/24 11:36 66 L 04/19/24 11:32 36.2 C L 128 H 19 195/88 H 94 O2 Del Method O2 Flow Rate FiO2 04/19/24 15:24 70 04/19/24 12:49 04/19/24 12:15 BiPAP 04/19/24 11:45 70 04/19/24 11:36 Room Air, Non-rebreather 0 04/19/24 11:32 Room Air Code Status & VTE Plan VTE Prophylaxis Plan VTE Prophylaxis will be ordered: No Reason for no VTE drug order: Treatment not indicated
[2024-04-19] MEDS: FUROSEMIDE 40 MG/4 ML VIAL IV ONE (17:19)
[2024-04-19] MEDS ORDERED: chlorproMAZINE HCL 25 MG TAB PO PRN (18:27)
[2024-04-19] MEDS ORDERED: ONDANSETRON INJ 2 MG/ML 2 ML VIAL IV PRN (18:27)
[2024-04-19] MEDS: MoRPHine SULFATE 4 MG/ML 1 ML CARP\\VIAL IV STA (19:12)
[2024-04-19] MEDS: MoRPHine SULFATE 10 MG/0.5 ML UDP PO PRN (21:20)
[2024-04-19] MEDS: haloperidoL 1 MG TAB PO PRN (21:25)
[2024-04-19] MEDS ORDERED: BENZONATATE 100 MG CAPSULE PO PRN (23:27)
[2024-04-19] MEDS ORDERED: ALBUT/IPRATROP 3MG/0.5MG NEB 3 ML VIAL INH PRN (23:27)
[2024-04-19] MEDS ORDERED: FLUTICASONE FUROATE 100MCG 14 PUFFS/INHALER INH PRN (23:27)
[2024-04-19] MEDS ORDERED: UMECLIDINIUM/VILANTEROL 62.5/25MCG 7 PUFFS/INHALER INH PRN (23:27)
[2024-04-19] MEDS ORDERED: ALBUTEROL HFA 8 GM INHALER INH PRN (23:27)
[2024-04-20] MEDS: GABAPENTIN 300 MG CAP PO SCH (01:21)
[2024-04-20] MEDS: traZODone HCL 50 MG TAB PO SCH (01:21)
--- NOTE | 2024-04-20 11:51 | Hospitalist Progress Note ---
Date of Service April 20, 2024 Assessment & Plan (1) Comfort measures only status: (2) Acute respiratory failure with hypoxia: (3) Small cell neuroendocrine carcinoma of lung: (4) Nocturnal hypoxemia: (5) Chronic diastolic heart failure: Plan: This is an 83yo F with a PMH of Left lower lobe neuroendocrine carcinoma with mediastinal involvement as well as retroperitoneal lymph node involvement with chemo treatment discontinued in Nov 2023, ISELA, nocturnal hypoxemia, HTN, HFpEF, history of hospice care and other medical problems listed below who presents from home with increased shortness of breath. Patient is feeling much improved with symptomatic management on comfort care measures as of 04.19. Per admitting physician: #Comfort Care Measures #Chronic respiratory failure 2/2 LLL carcinoma Patient chose to discontinue chemo treatment in Nov 2023, previously on hospice Goals as discussed with family and patient - comfort measures only with return home as soon as possible on Hospice (per CM discussion with hospice agency, plan for Sunday) Dc all lab draws, vital signs Dc home medications that will not provide comfort, per patient wishes Titrate O2 as able s/p 1x dose of 40mg IV lasix given appearance of volume congestion contributing to SOB Continue PRN Roxanol, PRN haldol for agitation (does not tolerate ativan per family), PRN glycopyrrolate for secretions Continue home gabapentin and trazodone Resume home inhalers DVT Ppx: contraindicated, 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 Denies any new concerns and reports subjective improvement. Verbalized understanding of plan for returning home with hospice likely tomorrow Physical Exam Constitutional: WD/WN, vitals as above Respiratory: NC in place, coarse lung sounds, but overall no distress noted Cardiovascular: RRR, no murmur, no edema Gastrointestinal (Abdomen): normal bowel sounds, soft, nontender, no hepatosplenomegaly Results & Data Results & Data Vital Signs (Past 12 Hours) Vital Signs O2 Del Method O2 Flow Rate 04/20/24 07:10 Nasal Cannula 11 Medications Administered Home Medications Medication Instructions Recorded Confirmed Last Taken albuterol sulfate 90 mcg/actuation 2 puff inhalation UD PRN Shortness 09/18/19 04/19/24 07/26/22 06:00 aerosol inhaler Of Breath Or Wheezing aspirin 81 mg tablet,delayed 81 mg PO QAM 08/12/23 04/19/24 12/06/23 release benzonatate 100 mg capsule 100 mg PO UD PRN Cough 08/12/23 04/19/24 08/12/23 08:00 conjugated estrogens 0.625 mg/gram 500 mg vaginal UD PRN dryness 08/12/23 04/19/24 08/10/23 vaginal cream (Premarin) fluticasone furoate 100 1 inh inhalation UD PRN Breathing 08/12/23 04/19/24 08/12/23 mcg/actuation blister powder for Problems inhalation (Arnuity Ellipta) ipratropium 0.5 mg-albuterol 3 mg 3 ml inhalation Q6H PRN Shortness 08/12/23 04/19/24 12/06/23 (2.5 mg base)/3 mL nebulization Of Breath Or Wheezing soln loratadine 10 mg tablet (Claritin) 10 mg PO UD 08/12/23 04/19/24 11/26/23 umeclidinium 62.5 mcg-vilanterol 1 inh inhalation DAILY PRN 08/12/23 04/19/24 08/12/23 25 mcg/actuation powdr for Breathing Problems inhalation (Anoro Ellipta) acetaminophen 325 mg tablet (Pain 650 mg PO HS PRN Pain 10/29/23 04/19/24 Unknown Reliever (acetaminophen)) allopurinol 100 mg tablet 100 mg PO QAM 10/29/23 04/19/24 12/06/23 docusate sodium 100 mg capsule 200 mg PO DAILY@1200 PRN 10/29/23 04/19/24 Unknown Constipation famotidine 20 mg tablet 20 mg PO DAILY 10/29/23 04/19/24 12/06/23 ferrous sulfate 325 mg (65 mg 325 mg PO DAILY 10/29/23 04/19/24 12/06/23 iron) tablet (FeroSul) furosemide 40 mg tablet 40 mg PO DAILY 10/29/23 04/19/24 12/06/23 gabapentin 300 mg capsule 900 mg PO HS 10/29/23 04/19/24 12/06/23 losartan 50 mg tablet 25 mg PO QAM 10/29/23 04/19/24 12/06/23 montelukast 10 mg tablet 10 mg PO DAILY 10/29/23 04/19/24 12/06/23 omega 6-mwb-lxh-fish oil 1,200 mg 1 cap PO BID 10/29/23 04/19/24 12/06/23 (144 mg-216 mg) capsule (Fish Oil) pantoprazole 40 mg tablet,delayed 40 mg PO DAILY 10/29/23 04/19/24 12/06/23 release trazodone 50 mg tablet 25 mg PO HS Insomnia 10/29/23 04/19/24 Unknown budesonide 0.5 mg/2 mL suspension 0.5 mg (2 mL) NEB BIDR #60 mL 10/30/23 04/19/24 12/06/23 for nebulization axmzkcx-bjfrguyra-cdwa 333 mg-133 1 tab PO .NOON 12/07/23 04/19/24 12/06/23 mg-8.3 mg tablet cranberry extract 500 mg capsule 500 mg PO BID 12/07/23 04/19/24 12/06/23 (Cranberry Concentrate) guaifenesin 100 mg/5 mL oral liquid 200 mg PO UD 12/07/23 04/19/24 12/06/23 locuzqfo-kxkjiyj-jmed-lutein tablet 1 tab PO DAILY 12/07/23 04/19/24 12/06/23 prochlorperazine maleate 10 mg 10 mg PO Q6H PRN Nausea And 12/07/23 04/19/24 Unknown tablet Vomiting ramelteon 8 mg tablet 8 mg PO HS 12/07/23 04/19/24 12/06/23 atorvastatin 40 mg tablet 40 mg PO QAM 04/19/24 04/19/24 Unknown formoterol fumarate 20 mcg/2 mL 20 mcg NEB QAM 04/19/24 04/19/24 Unknown solution for nebulization (Perforomist) ondansetron HCl 8 mg tablet 8 mg PO BID 04/19/24 04/19/24 Unknown prednisone 10 mg tablet 10 mg PO UD 04/19/24 04/19/24 Unknown Active Medications Generic Name Dose Route Start Last Admin Trade Name Freq PRN Reason Stop Dose Admin Gabapentin 900 mg 04/20/24 21:00 04/20/24 01:21 Gabapentin 300 Mg Cap PO 05/20/24 20:59 900 mg HS MATTHEW Administration Glycopyrrolate 0.2 mg 04/19/24 11:48 04/19/24 21:25 Glycopyrrolate 0.2 Mg/Ml Vial IV 05/19/24 11:47 0.2 mg Q4H PRN Administration Secretions or Pulm Congestion Haloperidol 1 mg 04/19/24 18:27 04/19/24 21:25 Haloperidol 1 Mg Tab PO 05/19/24 18:26 1 mg Q4H PRN Administration Anxiety/Agitation Morphine Sulfate 5 mg 04/19/24 18:27 04/19/24 21:20 Morphine Sulfate 10 Mg/0.5 Ml Udp PO 05/03/24 18:26 5 mg Q3H PRN Administration Pain or Respiratory Distress Trazodone HCl 25 mg 04/20/24 21:00 04/20/24 01:21 Trazodone Hcl 50 Mg Tab PO 05/20/24 20:59 25 mg HS MATTHEW Administration
[2024-04-20] MEDS: UMECLIDINIUM/VILANTEROL 62.5/25MCG 7 PUFFS/INHALER INH SCH (12:36)
[2024-04-21] MEDS: FLUTICASONE FUROATE 100MCG 14 PUFFS/INHALER INH SCH (07:58)
--- NOTE | 2024-04-21 10:20 | Communication Note ---
Date of Service: April 21, 2024 Palliative Med Note Consult received/chart reviewed/case d/w primary team attending pt is scheduled for home with hospice dc today no acute/urgent high acuity IP pall med needs, desire for home with hospice was declared on admission and CM will coordinated for dc planning. Pt not seen/NO charge submitted TS 15min Thank you. Areli Naranjo DNP Director, Palliative Medicine
[2024-04-21] MEDS: ONDANSETRON 4 MG OD TAB SL PRN (11:55)
[2024-04-21] MEDS: FORMOTEROL 20 MCG/2 ML VIAL NEB SCH (15:08)
--- NOTE | 2024-04-21 16:44 | Hospitalist Progress Note ---
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 Patient is feeling much improved with symptomatic management on comfort care measures as of 04/19. Per admitting physician: Comfort Care Measures Only Chronic Respiratory Failure 2/2 LLL Carcinoma Patient chose to discontinue chemo treatment in Nov 2023, previously on hospice. Goals as discussed with family and patient - comfort measures only with return home as soon as possible on hospice. Discontinued all lab draws, vital signs. Discontinued home medications that will not provide comfort - per patient wishes. Titrate O2 as able; Now s/p 1x dose of 40mg IV Lasix given appearance of volume congestion contributing to SOB. Continue PRN Roxanol, PRN Haldol for agitation (does not tolerate Ativan per family) & PRN glycopyrrolate for secretions. Continue home gabapentin and trazodone; Resume home inhalers as well. DVT Prophylaxis: Contraindicated, [employer]ER as per above. Code Status: DNR/DNI - No Resuscitation PCP: Rhys Humphrey MD Disposition: Waiting for [facility] from [facility] to come and evaluate the patient, anticipated discharge to home hospice tomorrow. Per CM documentation: "Pt requiring 9-10L of oxygen. Liliana [[facility]] did check with [facility], they have tanks that can provide 10L of oxygen, would just need to check/verify that they have those tanks are in stock for pt at time of discharge ." Patient seen in collaboration with Dr. Razo. Please see addendum. I spent a total of 30 minutes coordinating, documenting, and providing care for this patient excluding time spent in the performance of separately billed services. This included personally reviewing all current laboratories and imaging studies, medical reconciliation, outpatient chart review and discussion with specialists. This chart was completed in part utilizing Speech Voice Recognition Software. Grammatical errors, random word insertions, pronoun errors, and incomplete sentences are an occasional consequence of this system due to software limitations, ambient noise, and hardware issues. Any formal questions or concerns about the content, text, or information contained within the body of this dictation should be directly addressed to the provider for clarification. Admission and Anticipated Discharge Date Admission Date: April 19, 2024 Supervising Physician Co-Signing Physician Notes I have seen and discussed the case with the collaborating advanced practitioner. I agree with the above PN I have reviewed and confirmed the patients medical history, the findings on physical examination, and the patients diagnosis and treatment plan with Lakeshia ORNELAS and agree with the information documented. Ms. Linares evaluated at bedside. Reports eagerness to get home denies any new concerns and reports feeling much improved from admission Spoke to son/daughter at bedside for 30min. Discussed continuing nebs for maintenance of resp status but not implementing new therapies at this time. Family in agreement. Hospice pending availability of O2 tanks at home I spent a total of 45 minutes coordinating, documenting, and providing care for this patient excluding time spent in the performance of separately billed services. All of the aforementioned completed outside of collaborating with the assigned advanced practitioner for a full treatment plan. I have reviewed the advanced practitioner's documentation, and I agree with, and take responsibility for the plan of care Subjective Patient seen and examined at bedside in room E316-1. Patient's son and family friend present at bedside. Patient offers no concerns or complaints at this time. She would like to go home as soon as possible. Review of Systems Review of Systems: At least ten systems reviewed and negative, except as noted in the HPI. Physical Exam Physical Exam: General: WD/WN, vitals as above, NAD, sitting up in bed, pleasant, conversing appropriately. A+Ox3, euthymic affect. HEENT: Normocephalic, atraumatic. Normal inspection, PERRL, conjunctivae normal, anicteric sclerae, oropharynx normal. Respiratory: Normal respiratory effort, coarse lung sounds bilaterally, NC in place, no distress noted. Cardiovascular: Regular rate, rhythm, no murmur, normal peripheral pulses, no BLE edema. Abdomen/GI: Normal bowel sounds, soft, nontender, no hepatosplenomegaly. Extremities/Musculoskeletal: No cyanosis or clubbing, extremities motor strength appears intact, moves all extremities. Neurologic: PERRL, EOMI, accommodation nl, no face palsy, no dysarthria, CN's II-XI not formally tested but appear grossly intact bilaterally. Skin: No rashes, normal color, warm/dry. Results & Data Results & Data Vital Signs (Past 12 Hours) Vital Signs Pulse Resp Pulse Ox O2 Del Method O2 Flow Rate 04/21/24 15:12 108 H 22 90 Nasal Cannula 9 04/21/24 11:36 88 L High Flow Nasal Cannula 9 04/21/24 07:59 High Flow Nasal Cannula 11 Medications Administered Fluticasone Furoate (Fluticasone Furoate 100mcg 14 Puffs/Inhaler) 1 puffs INH DAILY MATTHEW Stop: 05/21/24 08:59 Last Admin: 04/21/24 07:58 Dose: 1 puffs Documented By: TRIP Formoterol Fumarate (Formoterol 20 Mcg/2 Ml Vial) 20 mcg NEB 0700 MATTHEW Stop: 05/21/24 14:29 Last Admin: 04/21/24 15:08 Dose: 20 mcg Documented By: LLUVIA Gabapentin (Gabapentin 300 Mg Cap) 900 mg PO HS MATTHEW Stop: 05/20/24 20:59 Last Admin: 04/20/24 19:59 Dose: 900 mg Documented By: Admin: 04/20/24 01:21 Dose: 900 mg Documented By: SLICK Glycopyrrolate (Glycopyrrolate 0.2 Mg/Ml Vial) 0.2 mg IV Q4H PRN PRN Reason: Secretions or Pulm Congestion Stop: 05/19/24 11:47 Last Admin: 04/19/24 21:25 Dose: 0.2 mg Documented By: Admin: 04/19/24 12:14 Dose: 0.2 mg Documented By: AURELIA Haloperidol (Haloperidol 1 Mg Tab) 1 mg PO Q4H PRN PRN Reason: Anxiety/Agitation Stop: 05/19/24 18:26 Last Admin: 04/19/24 21:25 Dose: 1 mg Documented By: SLICK Morphine Sulfate (Morphine Sulfate 10 Mg/0.5 Ml Udp) 5 mg PO Q3H PRN PRN Reason: Pain or Respiratory Distress Stop: 05/03/24 18:26 Last Admin: 04/19/24 21:20 Dose: 5 mg Documented By: SLICK Ondansetron HCl (Ondansetron 4 Mg Od Tab) 4 mg SL Q4H PRN PRN Reason: Nausea &/or Vomiting Stop: 05/19/24 18:26 Last Admin: 04/21/24 11:55 Dose: 4 mg Documented By: NABIL Trazodone HCl (Trazodone Hcl 50 Mg Tab) 25 mg PO HS MATTHEW Stop: 05/20/24 20:59 Last Admin: 04/20/24 19:59 Dose: 25 mg Documented By: Admin: 04/20/24 01:21 Dose: 25 mg Documented By: SLICK Umeclidinium/Vilanterol (Umeclidinium/Vilanterol 62.5/25mcg 7 Puffs/Inhaler) 1 puffs INH DAILY MATTHEW Stop: 05/20/24 11:59 Last Admin: 04/21/24 07:57 Dose: 1 puffs Documented By: Admin: 04/20/24 12:36 Dose: 1 puffs Documented By: LMM Discontinued Medications Furosemide (Furosemide 40 Mg/4 Ml Vial) 40 mg IV ONE ONE Stop: 04/19/24 16:16 Last Admin: 04/19/24 17:19 Dose: 40 mg Documented By: [facility] Morphine Sulfate (Morphine Sulfate 4 Mg/Ml 1 Ml Carp\\Vial) 3 mg IV NOW STA Stop: 04/19/24 16:16 Last Admin: 04/19/24 19:12 Dose: Not Given Documented By: SLICK
[2024-04-21] MEDS: BUDESONIDE 0.5 MG/2 ML VIAL (PULMICORT) NEB SCH (19:29)
[2024-04-21] MEDS ORDERED: bisacodyL 10 MG SUPP PR PRN (19:37)
[2024-04-21] MEDS ORDERED: METOCLOPRAMIDE HCL INJ 5 MG/ML 2 ML VIAL IV PRN (19:45)
[2024-04-21] MEDS: guaiFENesin SUGAR FREE 100 MG/5 ML UDC PO SCH (20:41)
[2024-04-21] MEDS: bisacodyL 10 MG SUPP PR STA (20:41)
[2024-04-21] MEDS: PROCHLORPERAZINE 5 MG in SYRINGE 4 ML IV PRN (20:42)
--- NOTE | 2024-04-21 22:54 | Electrocardiogram Report ---
Test Reason : Blood Pressure : / mmHG Vent. Rate : 131 BPM Atrial Rate : 131 BPM P-R Int : 146 ms QRS Dur : 100 ms QT Int : 298 ms P-R-T Axes : 084 075 085 degrees QTc Int : 440 ms Sinus tachycardia with Fusion complexes Otherwise normal ECG When compared with ECG of 22-MAR-2024 11:44, Fusion complexes are now Present Vent. rate has increased BY 48 BPM Nonspecific T wave abnormality now evident in Lateral leads Confirmed by Miguel Gibbons ([id number]) on 04/21/2024 10:54:36 PM Referred By: REFERRED SELF Confirmed By:Miguel Gibbons
--- NOTE | 2024-04-22 15:22 | Hospitalist Progress Note ---
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 Patient is feeling much improved with symptomatic management on comfort care measures as of 04/19. Per admitting physician: Comfort Care Measures Only Chronic Respiratory Failure 2/2 LLL Carcinoma Patient chose to discontinue chemo treatment in Nov 2023, previously on hospice. Goals as discussed with family and patient - comfort measures only with return home as soon as possible on hospice. Discontinued all lab draws, vital signs. Discontinued home medications that will not provide comfort - per patient wishes. Titrate O2 as able; Now s/p 1x dose of 40mg IV Lasix given appearance of volume congestion contributing to SOB. Pt tolerating 8L via high flow NC, sating at 89%. Continue PRN Roxanol, PRN Haldol for agitation (does not tolerate Ativan per family) & PRN glycopyrrolate for secretions. Continue home gabapentin and trazodone; Resume home inhalers as well. 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 Code Status: DNR/DNI - No Resuscitation PCP: Rhys Humphrey MD Disposition: Patient is being discharged to [facility] tomorrow (04/23). Transportation scheduled with [place] [id number] at 13:30. Patient seen in collaboration with Dr. Razo. Please see addendum. I spent a total of 30 minutes coordinating, documenting, and providing care for this patient excluding time spent in the performance of separately billed services. This included personally reviewing all current laboratories and imaging studies, medical reconciliation, outpatient chart review and discussion with specialists. This chart was completed in part utilizing Speech Voice Recognition Software. Grammatical errors, random word insertions, pronoun errors, and incomplete sentences are an occasional consequence of this system due to software limitations, ambient noise, and hardware issues. Any formal questions or concerns about the content, text, or information contained within the body of this dictation should be directly addressed to the provider for clarification. Admission and Anticipated Discharge Date Admission Date: April 19, 2024 Supervising Physician Co-Signing Physician Notes I have seen and discussed the case with the collaborating advanced practitioner. I agree with the above PN I have reviewed and confirmed the patients medical history, the findings on physical examination, and the patients diagnosis and treatment plan with Lakeshia ORNELAS and agree with the information documented. Ms. Linares evaluated at bedside. Reports eagerness to get home denies any new concerns and reports feeling much improved from admission Spoke to son/daughter at bedside for 30min. Discussed continuing nebs for maintenance of resp status but not implementing new therapies at this time. Family in agreement. Hospice pending availability of O2 tanks at home Likely dispo tomorrow around 1330 I spent a total of 45 minutes coordinating, documenting, and providing care for this patient excluding time spent in the performance of separately billed services. All of the aforementioned completed outside of collaborating with the assigned advanced practitioner for a full treatment plan. I have reviewed the advanced practitioner's documentation, and I agree with, and take responsibility for the plan of care Subjective Patient seen and examined at bedside in room E316-1. Patient offers no concerns or complaints at this time. She is very eager to leave the hospital and spend time with family. Review of Systems Review of Systems: At least ten systems reviewed and negative, except as noted in the HPI. Physical Exam Physical Exam: General: WD/WN, vitals as above, NAD, sitting in chair at bedside, pleasant, conversing appropriately. A+Ox3, euthymic affect. HEENT: Normocephalic, atraumatic. Normal inspection, PERRL, conjunctivae normal, anicteric sclerae, oropharynx normal. Respiratory: Normal respiratory effort, coarse lung sounds bilaterally, NC in place, no distress noted. Cardiovascular: Regular rate, rhythm, no murmur, normal peripheral pulses, no BL E edema. Abdomen/GI: Normal bowel sounds, soft, nontender, no hepatosplenomegaly. Extremities/Musculoskeletal: No cyanosis or clubbing, extremities motor strength appears intact, moves all extremities. Neurologic: PERRL, EOMI, accommodation nl, no face palsy, no dysarthria, CN's II-XI not formally tested but appear grossly intact bilaterally. Skin: No rashes, normal color, warm/dry. Constitutional: WD/WN, vitals as above Cardiovascular: RRR, no murmur, no edema Gastrointestinal (Abdomen): normal bowel sounds, soft, nontender, no hepatosplenomegaly Results & Data Results & Data Vital Signs (Past 12 Hours) Vital Signs Pulse Resp Pulse Ox O2 Del Method O2 Flow Rate 04/22/24 09:13 89 L High Flow Nasal Cannula 8 04/22/24 08:00 High Flow Nasal Cannula 9 04/22/24 07:43 104 H 18 89 L Nasal Cannula 9 Medications Administered Budesonide (Budesonide 0.5 Mg/2 Ml Vial (Pulmicort)) 0.5 mg NEB BIDR MATTHEW Stop: 05/21/24 18:59 Last Admin: 04/22/24 07:42 Dose: 0.5 mg Documented By: Admin: 04/21/24 19:29 Dose: 0.5 mg Documented By: BRENNA Fluticasone Furoate (Fluticasone Furoate 100mcg 14 Puffs/Inhaler) 1 puffs INH DAILY MATTHEW Stop: 05/21/24 08:59 Last Admin: 04/22/24 07:23 Dose: 1 puffs Documented By: Admin: 04/21/24 07:58 Dose: 1 puffs Documented By: TRIP Formoterol Fumarate (Formoterol 20 Mcg/2 Ml Vial) 20 mcg NEB 0700 MATTHEW Stop: 05/21/24 14:29 Last Admin: 04/22/24 07:42 Dose: 20 mcg Documented By: Admin: 04/21/24 15:08 Dose: 20 mcg Documented By: JTM Gabapentin (Gabapentin 300 Mg Cap) 900 mg PO HS MATTHEW Stop: 05/20/24 20:59 Last Admin: 04/21/24 20:41 Dose: 900 mg Documented By: Admin: 04/20/24 19:59 Dose: 900 mg Documented By: Admin: 04/20/24 01:21 Dose: 900 mg Documented By: EGS Glycopyrrolate (Glycopyrrolate 0.2 Mg/Ml Vial) 0.2 mg IV Q4H PRN PRN Reason: Secretions or Pulm Congestion Stop: 05/19/24 11:47 Last Admin: 04/19/24 21:25 Dose: 0.2 mg Documented By: Admin: 04/19/24 12:14 Dose: 0.2 mg Documented By: AURELIA Guaifenesin (Guaifenesin Sugar Free 100 Mg/5 Ml Udc) 200 mg PO BID MATTHEW Stop: 05/21/24 20:59 Last Admin: 04/22/24 07:24 Dose: 200 mg Documented By: Admin: 04/21/24 20:41 Dose: 200 mg Documented By: MARYCARMEN Haloperidol (Haloperidol 1 Mg Tab) 1 mg PO Q4H PRN PRN Reason: Anxiety/Agitation Stop: 05/19/24 18:26 Last Admin: 04/19/24 21:25 Dose: 1 mg Documented By: SLICK Prochlorperazine 5 mg/ Syringe 5 mls @ 5 mls/min IV Q6H PRN PRN Reason: Nausea And Vomiting Stop: 05/21/24 19:36 Last Admin: 04/21/24 20:42 Dose: 5 mls/min Documented By: MARYCARMEN Morphine Sulfate (Morphine Sulfate 10 Mg/0.5 Ml Udp) 5 mg PO Q3H PRN PRN Reason: Pain or Respiratory Distress Stop: 05/03/24 18:26 Last Admin: 04/19/24 21:20 Dose: 5 mg Documented By: SLICK Ondansetron HCl (Ondansetron 4 Mg Od Tab) 4 mg SL Q4H PRN PRN Reason: Nausea &/or Vomiting Stop: 05/19/24 18:26 Last Admin: 04/21/24 11:55 Dose: 4 mg Documented By: TRIP Trazodone HCl (Trazodone Hcl 50 Mg Tab) 25 mg PO HS MATTHEW Stop: 05/20/24 20:59 Last Admin: 04/21/24 20:42 Dose: 25 mg Documented By: Admin: 04/20/24 19:59 Dose: 25 mg Documented By: Admin: 04/20/24 01:21 Dose: 25 mg Documented By: SLICK Umeclidinium/Vilanterol (Umeclidinium/Vilanterol 62.5/25mcg 7 Puffs/Inhaler) 1 puffs INH DAILY MATTHEW Stop: 05/20/24 11:59 Last Admin: 04/22/24 07:24 Dose: 1 puffs Documented By: Admin: 04/21/24 07:57 Dose: 1 puffs Documented By: Admin: 04/20/24 12:36 Dose: 1 puffs Documented By: LMM Discontinued Medications Bisacodyl (Bisacodyl 10 Mg Supp) 10 mg TN NOW STA Stop: 04/21/24 19:38 Last Admin: 04/21/24 20:41 Dose: 10 mg Documented By: MARYCARMEN Furosemide (Furosemide 40 Mg/4 Ml Vial) 40 mg IV ONE ONE Stop: 04/19/24 16:16 Last Admin: 04/19/24 17:19 Dose: 40 mg Documented By: MAUDE Morphine Sulfate (Morphine Sulfate 4 Mg/Ml 1 Ml Carp\Vial) 3 mg IV NOW STA Stop: 04/19/24 16:16 Last Admin: 04/19/24 19:12 Dose: Not Given Documented By: SLICK
[2024-04-22] MEDS: LORazepam 0.5 MG in SYRINGE 0.25 ML IV ONE (23:17)
[2024-04-23] MEDS: MoRPHine SULFATE 4 MG/ML 1 ML CARP\\VIAL IV STA (01:58)
[2024-04-23] MEDS: FUROSEMIDE INJ 20 MG/2 ML VIAL IV ONE ×2 (04:56)
[2024-04-23] MEDS ORDERED: LORazepam 0.5 MG in SYRINGE 0.25 ML IV PRN (08:19)
[2024-04-23] MEDS ORDERED: ONDANSETRON INJ 2 MG/ML 2 ML VIAL IV PRN (08:19)
[2024-04-23] MEDS ORDERED: ONDANSETRON 4 MG OD TAB SL PRN (08:19)
[2024-04-23] MEDS ORDERED: STAT IV Infusion **Titration per Protocol STA (08:19)
[2024-04-23] MEDS ORDERED: LORazepam 0.5 MG TAB PO PRN (08:19)
[2024-04-23] MEDS ORDERED: MoRPHine BOLUS from BAG IV PRN (08:19)
[2024-04-23] MEDS: SCOPOLAMINE 1 MG/72 HR TDSY PATCH TD ONE (08:22)
[2024-04-23] MEDS ORDERED: FUROSEMIDE 40 MG/4 ML VIAL IV ONE (08:24)
[2024-04-23] MEDS ORDERED: MoRPHine SULF/NSS 100 MG/100 ML BAG IV SCH (08:30)
[2024-04-23] MEDS ORDERED: diazePAM 5 MG/ML 10ML VIAL IV SCH (08:30)
[2024-04-23] MEDS ORDERED: MoRPHine SULFATE 2 MG/ML CARP IV SCH (08:30)
--- NOTE | 2024-04-23 08:55 | Death Pronouncement Note ---
Date of Service April 23, 2024 Pronouncement Note Admission Date Admission Date: April 19, 2024 Date and Time of Date of : 04/23/24 Time of : 08:40 Contributing Factors (1) Small cell neuroendocrine carcinoma of lung: (2) Metastatic disease: (3) Acute on chronic hypoxic respiratory failure: (4) Acute respiratory failure with hypoxia: (5) Chronic diastolic heart failure: (6) Comfort measures only status: (7) Hospice care patient: Additional Data Confirmation of : no pulse, no respirations, no heart sounds and pupils fixed and dilated Family: contacted Attending physician: Bebe Montgomery MD Supervising Physician Co-Signing Physician Notes Pt was seen and examined by myself, Bebe Montgomery MD on the day of service. Care was coordinated with Gill Sandra PA-C. 83yoF on comfort measures/hospice care in the setting of metastatic lung cancer. Called to bedside in the early AM, notified that pt was having trouble linda thing. On exam at the time, pt stated that she did not feel well. Was having trouble breathing. Family was contacted and advised of pt's updated status. Later notified by nursing that pt had passed. At bedside to pronounce, time of 8:40AM. Later at bedside once more with NOBLE. Pt had no heart or breath sounds, carotid pulses were nonpalpable and pupils were dilated. Family was once again notified. certificate completed on 04/24 Otherwise as above. I spent a total [id number] coordinating, documenting, and providing care for this patient excluding time spent in the performance of separately billed services
--- NOTE | 2024-04-23 09:01 | Discharge Summary ---
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 Comfort Care Measures Only Chronic Respiratory Failure 2/2 LLL Carcinoma Patient chose to discontinue chemo treatment in Nov 2023, previously on hospice. Goals as discussed with family and patient - comfort measures only. Called to see patient for unresponsiveness on 04/23 at 08:37. On exam, the patient did not respond to verbal or physical stimuli. Absent heart and breath sounds. Absent peripheral pulses. Pupils are fixed and dilated. Patient pronounced at 08:40. Patient seen in collaboration with Dr. Montgomery. Please see addendum. I spent a total of 20 minutes coordinating, documenting, and providing care for this patient excluding time spent in the performance of separately billed ser vices. This included personally reviewing all current laboratories and imaging studies, medical reconciliation, outpatient chart review and discussion with specialists. Notes For Next Care Provider Medication Changes From Visit N/A Admission HPI Per Admitting Provider This is an 83yo F with a PMH of Left lower lobe neuroendocrine carcinoma with mediastinal involvement as well as retroperitoneal lymph node involvement with chemo treatment discontinued in Nov 2023, ISELA, nocturnal hypoxemia, HTN, HFpEF, history of hospice care and other medical problems listed below who presents from home with increased shortness of breath. History primarily obtained from family at bedside due to patient's lethargic state. Patient lives alone at [facility]. History of admission this past spring for hypoxic respiratory failure in the setting of decompensated CHF and advancing small cell neuroendocrine carcinoma of the lung. Patient was previously on hospice but due to admission it was stopped and has not been technically resume d, per family at bedside and case management. Has been feeling pretty well recently, able to eat and play bingo at her independent living, per family. Still having intermittent bouts of hemoptysis but less than previous per family. Overnight, patient became more acutely short of breath and weak, calling her family this morning and asking to be brought to the ED. Received 1 dose of morphine at home from without improvement. Family also noted black stool in the bathroom apartment prior to bring her in. Patient and family interested in transition to comfort measures at this time with the goal of reestablishment of hospice and discharged home on Sunday. No lab draw in ED and no interest in continued labs or diagnostic evaluation. Trial of BiPAP for comfort with improvement but will now take off mask and transition to oxygen by nasal cannula. Patient denies any pain at this time. Verbalizes interest in discontinuation of home medications as appropriate. Admission Exam Per Admitting Provider General Appearance: WD/WN, vitals as above, NAD, sitting up in bed, patient sleeping with bipap mask in place, awakens to verbal stimuli and answers questions with nodding yes/no Head: normocephalic, atraumatic Eyes: normal inspection, PERRL, conjunctivae normal, anicteric sclerae ENT: external ear and nose normal, bipap mask in place Neck: normal visual inspection, trachea midline, no thyromegaly Respiratory: increased respiratory effort, bibasilar rales, tachypnea Cardiovascular: tachycardic rate, regular rhythm, normal peripheral pulses, 1+ BLE edema. Vessels: no JVD Chest: normal inspection of chest Abdomen/GI: normal bowel sounds, soft, nontender, no hepatosplenomegaly Extremities/Musculoskeletal: no cyanosis or clubbing, extremities motor strength 5/5 Neurologic: PERRL, EOMI, accommodation nl, no face palsy, no dysarthria, CN's II-XI intact bilaterally and moves all extremities Psychiatric: A+Ox3, euthymic affect Skin: no rashes, normal color, warm/dry Discharge Exam On exam, the patient did not respond to verbal or physical stimuli. Absent heart and breath sounds. Absent peripheral pulses. Pupils are fixed and dilated. Patient pronounced at 08:40. Updated Medication List Medication Instructions Recorded Confirmed Type albuterol sulfate 90 mcg/actuation 2 puff inhalation UD PRN Shortness 09/18/19 04/19/24 History aerosol inhaler Of Breath Or Wheezing aspirin 81 mg tablet,delayed 81 mg PO QAM 08/12/23 04/19/24 History release benzonatate 100 mg capsule 100 mg PO UD PRN Cough 08/12/23 04/19/24 History conjugated estrogens 0.625 mg/gram 500 mg vaginal UD PRN dryness 08/12/23 04/19/24 History vaginal cream (Premarin) fluticasone furoate 100 1 inh inhalation UD PRN Breathing 08/12/23 04/19/24 History mcg/actuation blister powder for Problems inhalation (Arnuity Ellipta) ipratropium 0.5 mg-albuterol 3 mg 3 ml inhalation Q6H PRN Shortness 08/12/23 04/19/24 History (2.5 mg base)/3 mL nebulization Of Breath Or Wheezing soln loratadine 10 mg tablet (Claritin) 10 mg PO UD 08/12/23 04/19/24 History umeclidinium 62.5 mcg-vilanterol 1 inh inhalation DAILY PRN 08/12/23 04/19/24 History 25 mcg/actuation powdr for Breathing Problems inhalation (Anoro Ellipta) acetaminophen 325 mg tablet (Pain 650 mg PO HS PRN Pain 10/29/23 04/19/24 History Reliever (acetaminophen)) allopurinol 100 mg tablet 100 mg PO QAM 10/29/23 04/19/24 History docusate sodium 100 mg capsule 200 mg PO DAILY@1200 PRN 10/29/23 04/19/24 History Constipation famotidine 20 mg tablet 20 mg PO DAILY 10/29/23 04/19/24 History ferrous sulfate 325 mg (65 mg 325 mg PO DAILY 10/29/23 04/19/24 History iron) tablet (FeroSul) furosemide 40 mg tablet 40 mg PO DAILY 10/29/23 04/19/24 History gabapentin 300 mg capsule 900 mg PO HS 10/29/23 04/19/24 History losartan 50 mg tablet 25 mg PO QAM 10/29/23 04/19/24 History montelukast 10 mg tablet 10 mg PO DAILY 10/29/23 04/19/24 History omega 7-aet-wxp-fish oil 1,200 mg 1 cap PO BID 10/29/23 04/19/24 History (144 mg-216 mg) capsule (Fish Oil) pantoprazole 40 mg tablet,delayed 40 mg PO DAILY 10/29/23 04/19/24 History release trazodone 50 mg tablet 25 mg PO HS Insomnia 10/29/23 04/19/24 History budesonide 0.5 mg/2 mL suspension 0.5 mg (2 mL) NEB BIDR #60 mL 10/30/23 04/19/24 Rx for nebulization xsmnzap-gyzysnblg-gitu 333 mg-133 1 tab PO .NOON 12/07/23 04/19/24 History mg-8.3 mg tablet cranberry extract 500 mg capsule 500 mg PO BID 12/07/23 04/19/24 History (Cranberry Concentrate) guaifenesin 100 mg/5 mL oral liquid 200 mg PO UD 12/07/23 04/19/24 History ajbraphc-wlyygli-tmzg-lutein tablet 1 tab PO DAILY 12/07/23 04/19/24 History prochlorperazine maleate 10 mg 10 mg PO Q6H PRN Nausea And 12/07/23 04/19/24 History tablet Vomiting ramelteon 8 mg tablet 8 mg PO HS 12/07/23 04/19/24 History atorvastatin 40 mg tablet 40 mg PO QAM 04/19/24 04/19/24 History formoterol fumarate 20 mcg/2 mL 20 mcg NEB QAM 04/19/24 04/19/24 History solution for nebulization (Perforomist) ondansetron HCl 8 mg tablet 8 mg PO BID 04/19/24 04/19/24 History prednisone 10 mg tablet 10 mg PO UD 04/19/24 04/19/24 History Hospital Stay Data Consultations 04/19/24 15:32 ED Decision to Admit Stat Pending Results Patient Have Any Pending Studies at Discharge: No Total Time Total Time Spent Total Time Spent (In Minutes): 20 Supervising Physician Co-Signing Physician Notes Pt was seen and examined by myself, Bebe Montgomery MD on the day of service. Care was coordinated with Gill Sandra PA-C. 83yoF on comfort measures/hospice care in the setting of metastatic lung cancer. Called to bedside in the early AM, notified that pt was having trouble breathing. On exam at the time, pt stated that she did not feel well. Was having trouble breathing. Family was contacted and advised of pt's updated status. Later notified by nursing that pt had passed. At bedside to pronounce, time of 8:40AM. Later at bedside once more with NOBLE. Pt had no heart or breath sounds, carotid pulses were nonpalpable and pupils were dilated. Family was once again notified. certificate completed on 04/24 Otherwise as above. I spent a total [id number] coordinating, documenting, and providing care for this patient excluding time spent in the performance of separately billed services
[2024-04-23] MEDS ORDERED: CHECK SCOPOLAMINE PATCH PLACEMENT SCH (16:00)
== END 2024-04-23 11:45 | disposition expired | DRG 951 ==
LOC: ED 11:23 → 3E 16:12 → SUATTDRO 16:12 → 3E 18:00